=== PATIENT | male | born 1960 | race Caucasian/White ===

== ENCOUNTER → 2018-03-18 14:48 | Outpatient (CLI) | payer OTHER, SELFPAY ==
[2018-03-07 14:52] VITALS: BMI 38.1
--- NOTE | 2018-03-18 14:52 | US_ITS ---
STUDY: RENAL ULTRASOUND - COMPLETE REASON FOR EXAM: Male, 57 years old. Chronic renal disease TECHNIQUE: Ultrasound evaluation of the kidneys was performed with real-time and static painter-scale imaging. COMPARISON: None. FINDINGS: RIGHT KIDNEY: Normal location of the right kidney, which is normal in size. The right kidney measures 11.1 x 4.8 x 5.2 cm. There is a normal cortex of the right kidney. The renal cortex measures 1.7 cm. There is no right renal mass or cyst. There are no right renal calculi. There is no right hydronephrosis. DISTAL RIGHT URETER: There is non-visualization of the distal right ureter. There is no demonstrated right ureterovesical junction calculus. There is a visualized right ureteral jet. LEFT KIDNEY: Normal location of the left kidney, which is normal in size. The left kidney measures 11.2 x 5.4 x 5.2 cm. There is a normal cortex of the left kidney. The renal cortex measures 1.5 cm. There are 2 cysts in the LEFT kidney measuring 2 cm and 1 cm. There are no left renal calculi. There is no left hydronephrosis. DISTAL LEFT URETER: There is non-visualization of the distal left ureter. There is no demonstrated left ureterovesical junction calculus. There is no demonstrated left ureteral jet. AORTA: Not identified I.V.C.: The IVC is patent. BLADDER: Bladder volume is 66 cc. US/Kidney and Bladder IMPRESSION: There are 2 LEFT kidney cysts. There are NO kidney stones. There is NO hydronephrosis. Electronically Signed: Mason Herrmann MD at 6:51 EST , Service support ,
--- OUTSIDE RECORDS SUMMARY | 2018-06-20 07:42 | XMS RPT_ITS ---
:1960 Author Organization OHIP Care Team Providers Name Role Phone HANDY ORO Attending Unavailable HANDY ORO Attending Unavailable HANDY ORO Referring Unavailable HANDY ORO Referring Unavailable WELLINGTON DAVILA Attending Unavailable TIARA EDWARDS Referring Unavailable DELMY CARMEN (AUDIE) Attending Unavailable HANDY ORO Referring Unavailable TIARA EDWARDS Attending Unavailable Rosario Cardenas Attending Unavailable Rosario Cardenas Referring Unavailable Handy Oro Primary Care Unavailable Laurence Licona NP-C Attending Unavailable Handy Oro Referring Unavailable Rosario Cardenas Attending Unavailable Handy Oro Primary Care Unavailable PROBLEMS PROBLEMS DATE TYPE CONDITION / CODE ATTENDING STATUS SOURCE 01/30/2018 Active 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 Active [facility] (current) drug [place] therapy / Repository Z79.899(ICD-10) 01/30/2018 Active Type 1 diabetes NA Active [facility] mellitus with [place] proliferative Repository diabetic retinopathy with macular edema, bilateral / E10.3513(ICD-10) 01/17/2018 Active Type 1 diabetes WELLINGTON DAVILA Active [facility] mellitus with [place] proliferative Repository diabetic retinopathy without macular edema, bilateral / E10.3593(ICD-10) 02/07/2017 Active Type 1 diabetes TIARA EDWARDS Active [facility] mellitus with [place] stable Repository proliferative diabetic retinopathy, bilateral / E10.3553(ICD-10) 04/01/2015 Active Presence of TIARA EDWARDS Active [facility] intraocular lens / [place] Z96.1(ICD-10) Repository PROCEDURES PROCEDURES No Procedure Records FoundRESULTS RESULTS KIDNEY AND BLADDER Observed: 03/18/2018 Status: F Source: URSULA 2:52 PM [facility] REPOSITORY [facility] Imaging Services [address] [place] [address] Kidney and Bladder MR#: [id number] Acct: [id number] Name: АНДРЕЙ NICKERSON Rep #: [id number] : 1960 M 57 From: Mason Herrmann PCP: Handy Butler DO Status: REG CLI Study: Kidney and Bladder Date of Exam: 03/18/18 Exam# [id number] Ordering Dr: Rosario Cardenas DO STUDY: RENAL ULTRASOUND - COMPLETE REASON FOR EXAM: Male, 57 years old. Chronic renal disease TECHNIQUE: Ultrasound evaluation of the kidneys was performed with real-time and static painter-scale imaging. COMPARISON: None. FINDINGS: RIGHT KIDNEY: Normal location of the right kidney, which is normal in size. The right kidney measures 11.1 x 4.8 x 5.2 cm. There is a normal cortex of the right kidney. The renal cortex measures 1.7 cm. There is no right renal mass or cyst. There are no right renal calculi. There is no right hydronephrosis. DISTAL RIGHT URETER: There is non-visualization of the distal right ureter. There is no demonstrated right ureterovesical junction calculus. There is a visualized right ureteral jet. LEFT KIDNEY: Normal location of the left kidney, which is normal in size. The left kidney measures 11.2 x 5.4 x 5.2 cm. There is a normal cortex of the left kidney. The renal cortex measures 1.5 cm. There are 2 cysts in the LEFT kidney measuring 2 cm and 1 cm. There are no left renal calculi. There is no left hydronephrosis. DISTAL LEFT URETER: There is non-visualization of the distal left ureter. There is no demonstrated left ureterovesical junction calculus. There is no demonstrated left ureteral jet. AORTA: Not identified I.V.C.: The IVC is patent. BLADDER: Bladder volume is 66 cc. US/Kidney and Bladder IMPRESSION: There are 2 LEFT kidney cysts. There are NO kidney stones. There is NO hydronephrosis. Electronically Signed: Mason Herrmann MD at 6:51 EST , Service support , CC: Rosario Cardenas DO; Handy Butler DO Development Trainer: Signed ENDOCRINOLOGY VISIT Observed: 03/10/2018 Status: F Source: SEMMES REPORT 5:31 PM [facility] REPOSITORY [facility] [address] [place] [address]. [address] [place] [address] OFFICE VISIT Date of Service: 03/07/18 MR#: [id number] Acct: [id number] Name: АНДРЕЙ NICKERSON Rep #: [id number] : 1960 Provider: Laurence Licona NP Age/Sex: 57/M Location: [facility] [place] Status: Signed [facility] History of present illness Андрей Nickerson is a 57 year old male who presents for consult of type 1 diabetes. Diagnosed in 1970. No hx of DKA but had ER visit in 2009 due to severe hypoglycemia. Reports he utilized an insulin pump for a few years but when he was without insurance he could not afford and he resumed MDI. Reports he is currently taking levemir 36 units daily and meal insulin using his I/c ratio. Reports BG readings high and he is overly concerned now that he has been told he has stage 4 kidney disease. Is wanting to resume insulin pump therapy. At time of visit: -Pt denies symptoms of hypertensive emergency (CP,SOB,NAJERA, or blurred vision) and hypotension(dizziness or lightheadedness) -Pt denies symptoms of hypoglycemia ( sweaty, confusion, anxiety, tremor, hunger, palpitations) and hyperglycemia ( polydipsia, polyuria) -Pt denies potential medication adverse effect. Hypoglycemia Aware of hypoglycemia: When awake Able to self treat low BG: Yes Frequent low Bloo sugar: No Has supply of glucagon: Yes Diet 3 meals Carb counts Tries to eat healthy SMBG Currently checking 5 times daily BG 80-400 Reports BG highest in the evening. Type: type 1, insulin-requiring Glucose control symptoms: Reports high fasting glucose and high post-meal glucose Weight and fatigue symptoms: Denies snoring Cardiopulmonary symptoms: Denies chest pain at rest, dyspnea on exertion, lightheadedness or myalgias GI symptoms: Denies constipation, diarrhea, nausea/dyspepsia or vomiting Skin and extremity symptoms: Denies erectile dysfunction Other symptoms: Denies blurry vision or change in vision Pertinent visit history: Denies recent visit to ER, recent hospital admission, recent DKA, recent 911 calls or recent severe lows Self monitoring: Yes Percentage of fasting blood glucose within goal: <25% of the time Dietary compliance: Diabetes: good Diabetes education in past year: No Glucose testing: demonstrates correct use of meter, understands testing schedule Sick day education - understands ketone testing: Yes Physical activity: regular Exam Const General: healthy appearing, well developed Nutritional Appearance: well nourished, overweight Orientation: oriented x3 [facility] Head: normal to inspection, atraumatic Ears: hearing grossly normal bilaterally Nose: external nose normal Mouth: oral mucosae normal, moist mucous membranes Teeth and gingiva: fair dentition Eyes General: appearance normal, both eyes and all related structures Visual Goodwin: normal visual goodwin by confrontation Eyelids: eyelids normal Conjunctivae: conjunctivae normal Sclera: sclerae normal Pupils: PERRL Resp Effort AND Inspection: normal respiratory effort, able to speak in complete sentences, symmetric chest movement Auscultation: Bilateral: Clear to Auscultation Cardio Rate: regular rate Rhythm: regular rhythm Heart Sounds: S1 normal, S2 normal GI Inspection: normal to inspection Auscultation: normal bowel sounds Palpation: soft, no guarding Skin General: no rashes or lesions noted Nails: normal Diabetic Foot Monofilament test: Left foot: abnormal, Right foot: abnormal Neuro General: oriented x3, moves all extremities Cognition: normal cognition Speech: speech normal Gait: normal gait Extrem General: no pedal edema Psych Appearance: well kempt Mental Status: mental status grossly normal Mood: congruent mood Affect: normal affect Speech and Movement: speech and movement normal Attitude: cooperative Thought Process: normal Thought Content: normal Intake Vital Signs03/07/18 Height 5 ft 10 in 03/07/18 Weight: 266 lb 03/07/18 Body Mass Index (BMI) 38.1 03/07/18 Blood Pressure 160/92 H 03/07/18 Blood Pressure Location Lt popliteal 03/07/18 Blood Pressure Position Sitting Intake 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 Accompanied by: Self Allergies No Known Allergies Allergy (Verified 03/07/18 14:33) Medications Atorvastatin Calcium [Lipitor] 10 mg PO QHS 01/26/13 [History Confirmed 03/07/18] Clopidogrel Bisulfate [Plavix] 75 mg PO DAILY 01/26/13 [History Confirmed 03/07/18] Furosemide [Lasix] 10 mg PO BIDLX 01/26/13 [History Confirmed 03/07/18] amlodipine 10 mg tablet 10 mg PO DAILY 03/07/18 [History Confirmed 03/07/18] aspirin 81 mg tablet,delayed release 81 mg PO DAILY 03/07/18 [History Confirmed 03/07/18] bupropion HCl 150 mg tablet,12 hr sustained-release(smoking deterrent) 150 mg PO DAILY 03/07/18 [History Confirmed 03/07/18] enalapril maleate 20 mg tablet 20 mg PO DAILY 03/07/18 [History Confirmed 03/07/18] insulin detemir (U-100) 100 unit/mL (3 mL) subcutaneous pen 36 unit SC DAILY ml 03/07/18 [History Confirmed 03/07/18] insulin lispro (U- 100) 100 unit/mL subcutaneous pen See Rx Instructions SC TID ml 03/07/18 [History Confirmed 03/07/18] Nurse's Note: blood sugars : low : 87 high : 400+ pt checking 5-6 x qd PFSH Medical History Cataracts, bilateral (Acute) Heart disease (Acute) Kidney disease (Acute) Pancreatitis (Acute) Stroke (Acute) Type 1 diabetes (Acute) HTN (hypertension) (Chronic) Surgical History H/O cardiac catheterization (Acute) Family History Mother Diabetes Social History Smoking Status: Current every day smoker alcohol intake: never substance use type: does not use ROS Const Constitutional: No anorexia, body ache, chills, fatigue, fever(s), frequent falls, decreased energy, malaise, night sweats, weakness, weight change, sleep problems, abnormal sleep pattern, change in appetite, other, headache(s), snoring or excessive sweating Eyes Eyes: Positive for other (eye exam 02/17); no blurry vision, change in vision, double vision, discharge, dry eyes, bulging eyes, floaters, visual disturbances, eye pain, light sensitivity, spots in vision or tunnel vision ENT ENT: Positive for nasal congestion and sinus pressure; no abnormal hearing, ear pain, ear discharge, ear pressure, hearing loss, tinnitus, dizziness/vertigo, balance problems, nosebleed/epistaxis, nasal obstruction, nose pain, sinus pain, nasal discharge, post nasal drip, headache(s), facial pain, dental pain, dry mouth, bad breath, hoarseness, lip swelling, mouth lesions, mouth pain, sore throat, tongue swelling, throat swelling, other, difficulty swallowing or neck pain Resp Respiratory: Positive for cough and wheezing; no change in phlegm color, chest congestion, excessive phlegm production, hemoptysis, pain on inspiration, shortness of breath, pain with cough, snoring, stridor or other Cardio Cardiology: Positive for generalized swelling; no chest pain at rest, chest pain with exertion, leg pain with exertion, excessive sweating, shortness of breath, dyspnea on exertion, irregular heart rhythm, lightheadedness, orthopnea, radiating jaw, neck or arm pain, fast heart rate, slow heart rate, palpitations or other Gastro GI: No abdominal pain, belching, bloating, change in bowel habits, change in stool character, coffee ground emesis, constipation, cramping, diarrhea, heartburn, difficulty swallowing, feeling full early, excessive flatus, incontinent of stools, Vomiting blood/hematemesis, blood in stool, loose stools, Black,tarry stools, nausea/dyspepsia, pain with swallowing, vomiting or other Genitourinary Male: No difficulty urinating, burning urination, painful urination, urinary incontinence, urinary frequency, urinary urgency, urinary hesitancy, urinary retention, blood in urine, Frequent nighttime urination/ nocturia, post void dribbling, suprapubic fullness, side pain, sexual problems, genital lesions, genital itching, erectile dysfunction, penile discharge, difficulty with ejaculations, blood in semen, scrotal swelling, testicle lump, testicle pain or other Musc Musculoskeletal: No abnormal walking, joint pain, back pain, deformity, joint swelling, limited range of motion, loss of height, muscle cramps, muscle weakness, decreased muscle mass, body aches, neck pain, numbness, radiating pain into limb, stiffness, tingling or other Skin Skin: No acne, hair loss, change in hair, nail changes, boil, change in skin color, dry skin, redness, excessive hair growth, yellowing of the skin, lesions, itching, rash, skin pain, skin ulcer, sores, skin swelling, wounds or other Breast Breast: No other Neuro Neurology: No frequent falls, weakness, visual disturbances, abnormal hearing, headache(s), abnormal walking, numbness or tingling Psych Psychiatric: No abnormal sleep pattern, No change in appetite Endo Endocrine: No fatigue, other or excessive sweating Aller/Imm Allergy/Immunologic: Positive for wheezing; no lip swelling, tongue swelling, throat swelling or itchy eyes Assessment AND Plan 1. Uncontrolled type 1 diabetes mellitus with hyperglycemia E10.65 Plan Patient chart reflect spatient is type 2 although patient states he is type 1. No records available at time of appointment. Was a patient of Dr. Greenberg in past but unable to discern how long ago. Patient is concerned that he has CKD and it has worsened so he is now wondering if he should resume insulin pump therapy. He is not sure if his current insurance will cover. BG readings taken on newer meter so not alot of will. Will place patient on CGM for the next 14 days to determine his pattern for insulin adjustment. Discussed carb counting, sliding scale insulin, and monitoring of BG in pairs; before meals and 2 hours after meals. RTC 5 days for download of sensor. Patient Instructions Control portions Food selections should be healthy Choose more low carb vegetables Avoid snacks and desserts. Drink water Exercise daily Eat more fresh foods, not canned or processed Eat more slowly Plan Detail Other Medications New: insulin lispro (U- (Humalog KwikPen (U-) 1/10 ratio at breakfast and supper, 1/12 rati o at lunch SC TID; insulin detemir (U-100) (Levemir FlexTouch U-36 units subcut DAILY 100 Insulin) Additional Comments 1. Please schedule follow up in 3 weeks. 2. Lab work one week before appointment. 3. Discussed importance of regular exercise and recommend starting or continuing a regular exercise program for good health. 4. The patient was encouraged to lose weight for good health 5. The importance of monitoring blood sugar regularly was reviewed. 6. The importance of monitoring the HBA1c level regularly was reviewed. 7. The importance of prper foot care and regularly checking feet to prevent sores and loss of limbs was reviewed. 8. The importance of keeping BP at or below 130/80 to prevent stroke, heart attacks, kidney failure, blindness was reviewed. Spent approximately 30 minutes with patient with over 50% of time spent in discussion and counseling regarding medication adjustment, symptoms and treatment of hypoglycemia, diet adherence, and checking BG before driving. Coding Level of Care Code Off vis,new,level 4 Diagnoses Uncontrolled type 1 diabetes mellitus with hyperglycemia E10.65 Glycemic state: with hyperglycemia Depression Screen PHQ-2/9 PHQ-2 Over the last 2 weeks, how often have you been bothered by any of the following problems? 1. Little interest or pleasure in doing things: not at all 2. Feeling down, depressed, or hopeless: not at all Total score: 0 If score is 2 or greater, continue Source: Developed by Drs. Shamir Tovar, Maryjane Patterson, Narciso Steward and colleagues, with an educational caleb from [employer]. Scoring: Total Score Depression Severity Action 1-4 Minimal depression No action needed 5-9 Mild depression Repeat PHQ-9 at follow up 10-14 Moderate depression Make tx plan,consider counseling, fup, prescription 03/10/18 [id number] <Electronically signed by Laurence VALERO> Date Laurence VALERO Cosigner Signature: Date (if applicable) CC: PROGRESS Observed: 01/30/2018 Status: COMPLETED Source: KAKE 8:07 PM [facility] REPOSITORY HNO ID: [id number] Author: Handy Oro Service: (none) Author Type: Physician Type: Progress Notes Filed: 01/30/2018 8:19 PM Note Text: Patient presents with: Follow Up: DM Imm/Inj: Flu Vaccine HPI: Андрей Nickerson is a 57 year old male who presents to the office today for review of health conditions. Concerns today: Hasn't recently seen GODWIN Licona for Endocrinology, admits to poor diet, not routine low carb intake, admits to being non compliant and not measuring carbohydrates. Denies any chest pains or dyspnea or dizziness/LH. Has some fatigue symptoms. Tobacco use disorder, not willing to quit Mr. Nickerson has past history of diabetes. Since our last visit he denies excessive thirst or increased frequency of urination, chest pain or dyspnea , new or unusual visual symptoms and low sugar/hypoglycemic reactions. Follows a diabetic diet generally not very much. He is not compliant with medication(s) but is tolerating med(s) without any side effects. He reports checking his glucose on a once a day schedule. Patient's last HgA1C was Hemoglobin A1C (%) Date Value 01/30/2018 10.0 04/03/2017 9.5 ) Last Ophthalmology exam was within the past 12 months Mr. Nickerson reports history of hyperlipidemia. Current therapy includes atorvastatin (Lipitor) 20 mg. Denies side effects of muscle weakness or achiness. His most recent lipid panels are reviewed. Cholesterol, Total (mg/dL) Date Value 01/30/2018 92 HDL Cholesterol (mg/dL) Date Value 01/30/2018 42 LDL Cholesterol (mg/dL) Date Value 01/30/2018 31 Triglyceride (mg/dL) Date Value 01/30/2018 96 Mr. Nickerson indicates a history of hypertension and states that he is feeling well and denies any symptoms referable to elevated blood pressure. Specifically denies headache, chest pain, palpitations, dyspnea and peripheral edema. Patient denies any side effects of his medication(s) and is compliant with their regimen. Last 3 Encounter BP Readings: Date: BP: 01/30/2018 136/82 01/07/2018 122/68 05/09/2017 130/82 He watches his diet for sodium, low fat and low cholesterol some of the time. He does not check BP's generally. Андрей gets minimal exercise. PAST MEDICAL HISTORY Diagnosis Date - CKD (chronic kidney disease) stage 3, GFR 30-59 ml/min ([facility]) [facility] - Coronary artery disease 2006 3 stents, last cath 2007, [facility] - Diabetes type 1, uncontrolled ([facility]) 1970 nephropathy, retinopathy, dx age 10, Dr. Leon [facility] - Hyperlipidemia - Hypertension - Lacunar stroke - Macular edema [facility] - MVP (mitral valve prolapse) - Pancreatitis - Proliferative diabetic retinopathy(362.02) [facility] - Tobacco abuse PAST SURGICAL HISTORY Procedure Laterality Date - AVASTIN (BEVACIZUMAB) 1.25MG INTRAVITREAL INJECTION OS (LEFT EYE) x5 (04/16/2015) Dr. Edwards - CARDIAC CATH 2005, 2008, 2011 mid / distal LAD stents DENISHA - PAST SURGICAL HISTORY OF Bilateral Keratectomy - REMV CATARACT EXTRACAP,INSERT LENS Left 03/10/15 Cataract Extraction with PC IOL - REMV CATARACT EXTRACAP,INSERT LENS Right 04/01/15 Cataract Extraction with PC IOL Social History Marital status: Spouse name: Years of education: Number of children: Social History Main Topics Smoking status: Current Some Day Smoker Packs/day: 1.00 Years: 30.00 Types: Cigarettes Smokeless tobacco: Never Used Alcohol use: Yes Comment: rarely Drug use: Yes Types: Marijuana Comment: occasional Social History Narrative , step children Last cardiac stress test 10/2011- normal, EF 64%, Dr. 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 MAXIMUM DOSE 40 UNITS DAILY. clopidogrel (PLAVIX) 75 mg tablet TAKE 1 TABLET BY MOUTH ONCE DAILY. atorvastatin (LIPITOR) 40 mg tablet TAKE 0.5 TABLETS BY MOUTH ONCE DAILY. amLODIPine (NORVASC) 10 mg tablet TAKE 1 TABLET BY MOUTH EVERY DAY insulin lispro (HUMALOG U-100 INSULIN) 100 unit/mL injection 1-10 I/C breakfast AND supper, 1-15 I/C at lunch. Maximum dose 40 units daily. metoprolol tartrate, short acting, (LOPRESSOR) 100 mg tablet Take 1 tablet by mouth twice daily. enalapril (VASOTEC) 20 mg tablet Take 1 tablet by mouth once daily. furosemide (LASIX) 20 mg tablet Take 1 tablet by mouth twice daily. buPROPion XL (WELLBUTRIN XL) 150 mg 24 hr tablet Take 1 tablet by mouth once daily. insulin detemir (LEVEMIR FLEXTOUCH) 100 unit/mL (3 mL) inpn injection INJECT 31 UNITS SUBCUTANEOUSLY DAILY AT BEDTIME. aspirin, enteric coated (ECOTRIN LOW STRENGTH) 81 mg EC tablet Take 1 tablet by mouth once daily. insulin aspart U-100 (NOVOLOG) 100 unit/mL soln 1-10 I/C breakfast AND supper 1-15 I/C at lunch 1-10 I/C breakfast AND supper 1-15 I/C at lunch Maximum dose 40 units daily. albuterol HFA (PROVENTIL HFA, VENTOLIN HFA) 90 mcg/actuation inhaler Inhale 2 Puffs as instructed every 6 hours as needed for Wheezing/Shortness of Breath. Insulin [place], Disposable, (BD ULTRAFINE III MINI PEN) 31 gauge x 3/16 ndle use as directed up to four times daily, E11.9 Lancets (MICROLET LANCET) lancets Test blood sugar(s) 3-4 times daily. Dx: 250.00 . Insulin: Yes blood sugar diagnostic (ONETOUCH ULTRA TEST) test strip Checking blood sugars 3-4 times daily insulin aspart (NOVOLOG FLEXPEN) 100 unit/mL inpn Inject subcutaneously up to 40 units daily cholecalciferol (VITAMIN D3) 5,000 unit tab Take 1 tablet by mouth once daily. Blood-Glucose Meter (ONETOUCH ULTRA2) monitoring kit 1 Each as needed. One Touch Meter Kit, Dx: E10.3219 Type1 dm with mild nonproliferative diabetic retinopathy/macular edema Oamygfqbvqpvv-Tmckgzkppgxmd-XL (TYLENOL SINUS SEVERE) 5-325-200 mg tab Take 1 Dose by mouth every 4 hours as needed. lidocaine viscous (LIDOCAINE VISCOUS) 2 % solution Gargle and spit 10-15mLs every 3-4 hours as need for throat discomfort. Blood-Glucose Meter (FritterTOUCH ULTRA 2) monitoring kit 1 Each as needed. Review of Systems: The remainder of the review of systems is negative. PE: 01/30/18 1812 BP: 136/82 Pulse: 68 Resp: 14 Temp: 36.1 ?C (96.9 ?F) TempSrc: Left Tympanic Weight: 119.7 kg (264 lb) Gen: AANDO, NAD, non-toxic appearing, morbidly obese, cooperative HEENT: NT/AC, PERRLA, EOMs intact b/l, nares clear and patent b/l, pharynx without erythema, exudate or lesions. Uvula midline. EACs without erythema or debris. TMs pearly painter with intact landmarks b/l. Neck: supple, No cervical LAD, no thyromegaly, no carotid bruits CV: RRR, normal S1 and S2, no murmurs, no gallops, no rubs, Pulses 2+ and symmetric in UE and LE b/l Lungs: normal respiratory effort, CTA b/l, no wheezing or rhonchi or rales Abd: soft, morbidly obese, NT, ND, +BS, no hepatosplenomegaly MS: FROM all 4 extremities Neuro: CN II-XII intact b/l, strength 5/5 b/l UE and LE, DTRs 2/4 UE and LE, sensation intact. Skin: warm, dry, intact, scattered skin tags and seborrheic keratoses No edema ASSESSMENT/PLAN: 1. Routine physical examination - ICD9: V70.0, ICD10: Z00.00 (primary diagnosis) - Recommended regular aerobic exercise. - Discussed need and benefit for weight loss. BMI 37.88 kg/(m2) - Check CBC with diff, CMP, HbA1C, fasting glucose and fasting lipid panel - Vaccination(s) recommended today: Influenza - Follow up for annual exam in one year. 2. Need for vaccination - ICD9: V05.9, ICD10: Z23 - INFLUENZA VACCINE QUADRIVALENT AGE 3 YRS PLUS + IM 3. 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 D/w him risks of TN, stroke, heart failure and artery disease related to his non compliance - HGB A1C - COMP METABOLIC PANEL - CBC 4. Hypercholesteremia - ICD9: 272.0, ICD10: E78.00 - to be determined upon return of lab results - Continue current medication. - Encouraged following a low fat, low cholesterol diet. - Discussed the benefits of regular aerobic exercise and weight loss. - Check fasting lipid panel 5. Essential hypertension - ICD9: 401.9, ICD10: I10 - suboptimal control - Continue current medication(s) - Encouraged dietary sodium restriction/DASH diet - Recommended regular aerobic exercise. - Recommend home blood pressure monitoring, to bring results in on next visit - Discussed need and benefit for weight loss. - Goal of BP <130/80 - Patient counselled on smoking cessation. - Recommend home or pharmacy blood pressure monitoring 6. Tobacco use - ICD9: 305.1, ICD10: Z72.0 - Cessation encouraged. - Physiologic and physical aspects of tobacco addiction as well as strategies for quitting were discussed. - Counseling was given focusing on the harmful effects of this addiction especially given the patient's medical condition(s) which will be worsened because of the chemicals in tobacco. Handy Oro DO To ER if develops chest pain, shortness of breath, or severe worsening of symptoms. Discussed risks, benefits, alternatives, and potential side effects of medications. Patient expressed understanding and agreed with the plan. Handy Oro DO [address] [place] [address] CNOV Observed: 01/30/2018 Status: COMPLETED Source: KAKE 6:20 PM [facility] REPOSITORY Office Visit ([facility] АНДРЕЙ [id number]) 1960 M Date Time Provider Department 01/30/18 6:20 PM HANDY ORO During your visit today, we recorded the following information about you: Temperature Pulse Respiration Blood pressure 96.9 degrees 68/minute 14/minute 136/82 Weight 119.7 kg Yoli Lieberman Ma 01/30/2018 8:19 PM Signed 57 year old male here for INACTIVATED INFLUENZA VACCINE. Season Patient is identified by name and date of : Yes [] CONTRAINDICATIONS color enhanced section Age less than 6 months? No Allergy to eggs, chicken, chicken feathers, or chicken dander? No Allergy to thimerosal (a preservative) or formaldehyde, gelatin? No History of severe reaction to any vaccine component or a previous dose of influenza vaccination? No History of Guillain-[place] Syndrome within 6 weeks after a previous influenza vaccine? No Patient is not moderately or severely ill? No Current temperature greater or equal to 100.4F? No History of Bone Marrow Transplant prior 6 months or solid organ transplant in the past 3 months ? No History of fainting after a prior injection or medical procedure? No- ? If patient has fainted in the past, the CDC recommends sitting or lying down for 15 minutes after the vaccination. [] VERIFICATION color enhanced section Was the answer Yes for any of the above contraindications? No contraindications present. Acceptable to proceed with vaccine. Patient/guardian agrees the above answers are true to the best of their knowledge? Yes Flu vaccine information sheet given? Yes See immunization activity in [facility] for details of immunizations adminstered today. Patient age: [age] year old For The 5501-6202 Flu Season 6-35 months old: Fluzone 0.25 ml - IM (Preservative Free) 3 years of age: Fluzone 0.5 ml - IM (Preservative Free) 3 years and older: Fluzone 0.5 ml- IM-(with Preservatives) 65+ years old: 2-49 years old Fluzone High-Dose 0.5 ml - IM (Preservative Free) FLUMIST- intranasal REMEMBER: If patient is less than 9 years of age and this is the first vaccine of Influenza to be received in any flu season, they should receive a second dose in one months time. Handy Oro DO 01/30/2018 8:19 PM Signed Patient presents with: Follow Up: DM Imm/Inj: Flu Vaccine HPI: Андрей Nickerson is a 57 year old male who presents to the office today for review of health conditions. Concerns today: Hasn't recently seen GODWIN Licona for Endocrinology, admits to poor diet, not routine low carb intake, admits to being non compliant and not measuring carbohydrates. Denies any chest pains or dyspnea or dizziness/LH. Has some fatigue symptoms. Tobacco use disorder, not willing to quit Mr. Nickerson has past history of diabetes. Since our last visit he denies excessive thirst or increased frequency of urination, chest pain or dyspnea , new or unusual visual symptoms and low sugar/hypoglycemic reactions. Follows a diabetic diet generally not very much. He is not compliant with medication(s) but is tolerating med(s) without any side effects. He reports checking his glucose on a once a day schedule. Patient's last HgA1C was Hemoglobin A1C (%) Date Value 01/30/2018 10.0 04/03/2017 9.5 ) Last Ophthalmology exam was within the past 12 months Mr. Nickerson reports history of hyperlipidemia. Current therapy includes atorvastatin (Lipitor) 20 mg. Denies side effects of muscle weakness or achiness. His most recent lipid panels are reviewed. Cholesterol, Total (mg/dL) Date Value 01/30/2018 92 HDL Cholesterol (mg/dL) Date Value 01/30/2018 42 LDL Cholesterol (mg/dL) Date Value 01/30/2018 31 Triglyceride (mg/dL) Date Value 01/30/2018 96 Mr. Nickerson indicates a history of hypertension and states that he is feeling well and denies any symptoms referable to elevated blood pressure. Specifically denies headache, chest pain, palpitations, dyspnea and peripheral edema. Patient denies any side effects of his medication(s) and is compliant with their regimen. Last 3 Encounter BP Readings: Date: BP: 01/30/2018 136/82 01/07/2018 122/68 05/09/2017 130/82 He watches his diet for sodium, low fat and low cholesterol some of the time. He does not check BP's generally. Андрей gets minimal exercise. PAST MEDICAL HISTORY Diagnosis Date - CKD (chronic kidney disease) stage 3, GFR 30-59 ml/min ([facility]) [facility] - Coronary artery disease 2005 3 stents, last cath 2007, [facility] - Diabetes type 1, uncontrolled ([facility]) 1970 nephropathy, retinopathy, dx age 10, Dr. Leon [facility] - Hyperlipidemia - Hypertension - Lacunar stroke - Macular edema [facility] - MVP (mitral valve prolapse) - Pancreatitis - Proliferative diabetic retinopathy(362.02) [facility] - Tobacco abuse PAST SURGICAL HISTORY Procedure Laterality Date - AVASTIN (BEVACIZUMAB) 1.25MG INTRAVITREAL INJECTION OS (LEFT EYE) x5 (04/16/2015) Dr. Edwards - CARDIAC CATH 2005, 2008, 2011 mid / distal LAD stents DENISHA - PAST SURGICAL HISTORY OF Bilateral Keratectomy - REMV CATARACT EXTRACAP,INSERT LENS Left 03/10/15 Cataract Extraction with PC IOL - REMV CATARACT EXTRACAP,INSERT LENS Right 04/01/15 Cataract Extraction with PC IOL Social History Marital status: Spouse name: Years of education: Number of children: Social History Main Topics Smoking status: Current Some Day Smoker Packs/day: 1.00 Years: 30.00 Types: Cigarettes Smokeless tobacco: Never Used Alcohol use: Yes Comment: rarely Drug use: Yes Types: Marijuana Comment: occasional Social History Narrative , step children Last cardiac stress test 10/2011- normal, EF 64%, Dr. 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 MAXIMUM DOSE 40 UNITS DAILY. clopidogrel (PLAVIX) 75 mg tablet TAKE 1 TABLET BY MOUTH ONCE DAILY. atorvastatin (LIPITOR) 40 mg tablet TAKE 0.5 TABLETS BY MOUTH ONCE DAILY. amLODIPine (NORVASC) 10 mg tablet TAKE 1 TABLET BY MOUTH EVERY DAY insulin lispro (HUMALOG U-100 INSULIN) 100 unit/mL injection 1-10 I/C breakfast AND supper, 1-15 I/C at lunch. Maximum dose 40 units daily. metoprolol tartrate, short acting, (LOPRESSOR) 100 mg tablet Take 1 tablet by mouth twice daily. enalapril (VASOTEC) 20 mg tablet Take 1 tablet by mouth once daily. furosemide (LASIX) 20 mg tablet Take 1 tablet by mouth twice daily. buPROPion XL (WELLBUTRIN XL) 150 mg 24 hr tablet Take 1 tablet by mouth once daily. insulin detemir (LEVEMIR FLEXTOUCH) 100 unit/mL (3 mL) inpn injection INJECT 31 UNITS SUBCUTANEOUSLY DAILY AT BEDTIME. aspirin, enteric coated (ECOTRIN LOW STRENGTH) 81 mg EC tablet Take 1 tablet by mouth once daily. insulin aspart U-100 (NOVOLOG) 100 unit/mL soln 1-10 I/C breakfast AND supper 1-15 I/C at lunch 1-10 I/C breakfast AND supper 1-15 I/C at lunch Maximum dose 40 units daily. albuterol HFA (PROVENTIL HFA, VENTOLIN HFA) 90 mcg/actuation inhaler Inhale 2 Puffs as instructed every 6 hours as needed for Wheezing/Shortness of Breath. Insulin [place], Disposable, (BD ULTRAFINE III MINI PEN) 31 gauge x 3/16 ndle use as directed up to four times daily, E11.9 Lancets (MICROLET LANCET) lancets Test blood sugar(s) 3-4 times daily. Dx: 250.00 . Insulin: Yes blood sugar diagnostic (ONETOUCH ULTRA TEST) test strip Checking blood sugars 3-4 times daily insulin aspart (NOVOLOG FLEXPEN) 100 unit/mL inpn Inject subcutaneously up to 40 units daily cholecalciferol (VITAMIN D3) 5,000 unit tab Take 1 tablet by mouth once daily. Blood-Glucose Meter (ONETOUCH ULTRA2) monitoring kit 1 Each as needed. One Touch Meter Kit, Dx: E10.3219 Type1 dm with mild nonproliferative diabetic retinopathy/macular edema Rygilwzdkegcc-Ropdxasqxzfny-UH (TYLENOL SINUS SEVERE) 5-325-200 mg tab Take 1 Dose by mouth every 4 hours as needed. lidocaine viscous (LIDOCAINE VISCOUS) 2 % solution Gargle and spit 10-15mLs every 3-4 hours as need for throat discomfort. Blood-Glucose Meter (ONETOUCH ULTRA 2) monitoring kit 1 Each as needed. Review of Systems: The remainder of the review of systems is negative. PE: 01/30/18 1812 BP: 136/82 Pulse: 68 Resp: 14 Temp: 36.1 ?C (96.9 ?F) TempSrc: Left Tympanic Weight: 119.7 kg (264 lb) Gen: AANDO, NAD, non-toxic appearing, morbidly obese, cooperative HEENT: NT/AC, PERRLA, EOMs intact b/l, nares clear and patent b/l, pharynx without erythema, exudate or lesions. Uvula midline. EACs without erythema or debris. TMs pearly painter with intact landmarks b/l. Neck: supple, No cervical LAD, no thyromegaly, no carotid bruits CV: RRR, normal S1 and S2, no murmurs, no gallops, no rubs, Pulses 2+ and symmetric in UE and LE b/l Lungs: normal respiratory effort, CTA b/l, no wheezing or rhonchi or rales Abd: soft, morbidly obese, NT, ND, +BS, no hepatosplenomegaly MS: FROM all 4 extremities Neuro: CN II-XII intact b/l, strength 5/5 b/l UE and LE, DTRs 2/4 UE and LE, sensation intact. Skin: warm, dry, intact, scattered skin tags and seborrheic keratoses No edema ASSESSMENT/PLAN: 1. Routine physical examination - ICD9: V70.0, ICD10: Z00.00 (primary diagnosis) - Recommended regular aerobic exercise. - Discussed need and benefit for weight loss. BMI 37.88 kg/(m2) - Check CBC with diff, CMP, HbA1C, fasting glucose and fasting lipid panel - Vaccination(s) recommended today: Influenza - Follow up for annual exam in one year. 2. Need for vaccination - ICD9: V05.9, ICD10: Z23 - INFLUENZA VACCINE QUADRIVALENT AGE 3 YRS PLUS + IM 3. 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 D/w him risks of [place], stroke, heart failure and artery disease related to his non compliance - HGB A1C - COMP METABOLIC PANEL - CBC 4. Hypercholesteremia - ICD9: 272.0, ICD10: E78.00 - to be determined upon return of lab results - Continue current medication. - Encouraged following a low fat, low cholesterol diet. - Discussed the benefits of regular aerobic exercise and weight loss. - Check fasting lipid panel 5. Essential hypertension - ICD9: 401.9, ICD10: I10 - suboptimal control - Continue current medication(s) - Encouraged dietary sodium restriction/DASH diet - Recommended regular aerobic exercise. - Recommend home blood pressure monitoring, to bring results in on next visit - Discussed need and benefit for weight loss. - Goal of BP <130/80 - Patient counselled on smoking cessation. - Recommend home or pharmacy blood pressure monitoring 6. Tobacco use - ICD9: 305.1, ICD10: Z72.0 - Cessation encouraged. - Physiologic and physical aspects of tobacco addiction as well as strategies for quitting were discussed. - Counseling was given focusing on the harmful effects of this addiction especially given the patient's medical condition(s) which will be worsened because of the chemicals in tobacco. Handy Oro DO To ER if develops chest pain, shortness of breath, or severe worsening of symptoms. Discussed risks, benefits, alternatives, and potential side effects of medications. Patient expressed understanding and agreed with the plan. 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) [E10.3593] Hypercholesteremia [E78.00] Essential hypertension [I10] Tobacco use [Z72.0] Order(s):INFLUENZA VACCINE QUADRIVALENT AGE 3 YRS PLUS + IM [[id number]] Order #: [id number] HGB A1C [VMGWN3H] Order #: [id number] FUTURE COMP METABOLIC PANEL [SQCMP] Order #: [id number] FUTURE CBC [SQCBC] Order #: [id number] FUTURE Prescriptions as of 01/30/2018 Sig: HUMALOG KWIKPEN (U-100) INSUL* INJECT 1-10 I/C BREAKFAST AND S* CLOPIDOGREL 75 MG TABLET TAKE 1 TABLET BY MOUTH ONCE D* ATORVASTATIN 40 MG TABLET TAKE 0.5 TABLETS BY MOUTH ONC* AMLODIPINE 10 MG TABLET TAKE 1 TABLET BY MOUTH EVERY * INSULIN LISPRO (U-100) 100 UN* 1-10 I/C breakfast AND supper, * METOPROLOL TARTRATE 100 MG TA* Take 1 tablet by mouth twice * ENALAPRIL MALEATE 20 MG TABLET Take 1 tablet by mouth once d* FUROSEMIDE 20 MG TABLET Take 1 tablet by mouth twice * BUPROPION XL 150 MG TAB Take 1 tablet by mouth once d* INSULIN DETEMIR (U-100) 100 U* INJECT 31 UNITS SUBCUTANEOUSL* ASPIRIN 81 MG TABLET,DELAYED * Take 1 tablet by mouth once d* INSULIN ASPART U-100 100 UNI* 1-10 I/C breakfast AND supper 1* Patient not taking: Reported on 01/30/2018 ALBUTEROL SULFATE HFA 90 MCG/* Inhale 2 Puffs as instructed * PEN NEEDLE, DIABETIC 31 GAUGE* use as directed up to four ti* LANCETS Test blood sugar(s) 3- 4 time* BLOOD SUGAR DIAGNOSTIC STRIPS Checking blood sugars 3-4 benedicto* INSULIN ASPART U-100 100 UNI* Inject subcutaneously up to 4* Patient not taking: Reported on 01/30/2018 CHOLECALCIFEROL (VITAMIN D3) * Take 1 tablet by mouth once d* BLOOD-GLUCOSE METER KIT 1 Each as needed. One Touch M* DNABCQPBILNLY-DOGZSADFGNRTU-B* Take 1 Dose by mouth every 4 * LIDOCAINE 2 % MUCOSAL SOLUTION Gargle and spit 10-15mLs ever* BLOOD-GLUCOSE METER KIT 1 Each as needed. Problem List As Of Date 01/30/2018 Noted Resolved Obesity (BMI 30.0-34.9) [E66.9] INVALID FOR* Tobacco abuse [Z72.0] INVALID FOR* Hypercholesteremia [E78.00] INVALID FOR* Coronary artery disease [I25.10] INVALID FOR* Hypertension [I10] INVALID FOR* Diabetes mellitus type 2 in obese (HCC) [E11.69*INVALID FOR*08/10/2015 Background diabetic retinopathy(362.01) (HCC) *INVALID FOR* Retinal edema [H35.81] INVALID FOR* Other and combined forms of senile cataract [H2*INVALID FOR*02/23/2015 Proliferative diabetic retinopathy(362.02) (HC*INVALID FOR*02/07/2017 Type 1 diabetes mellitus with mild nonprolifera*INVALID FOR* Borderline glaucoma with ocular hypertension - *INVALID FOR* Type 1 diabetes mellitus with stable proliferat*INVALID FOR* History of panretinal photocoagulation - Both E*INVALID FOR* Type II or unspecified type diabetes mellitus w*INVALID FOR*03/31/2015 Growth of eyelid [D49.2] INVALID FOR* 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] INVALID FOR* Optic cupping of both eyes [H47.233] INVALID FOR* Astigmatism of both eyes [H52.203] INVALID FOR* Combined 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 [*INVALID FOR*04/26/2015 Pseudophakia, left eye [Z96.1] INVALID FOR*03/31/2015 Pseudophakia of left eye [Z96.1] INVALID FOR*04/26/2015 Pseudophakia of both eyes [Z96.1] INVALID FOR* Type 1 diabetes mellitus with proliferative ret*INVALID FOR* PCO (posterior capsular opacification) [H26.499]INVALID FOR* Vitreous floaters of both eyes [H43.393] INVALID FOR* Need for vaccination [Z23] INVALID FOR* Tobacco use [Z72.0] INVALID FOR* Essential hypertension [I10] INVALID FOR* Type 1 diabetes mellitus with proliferative ret*INVALID FOR* Obesity, Class II, BMI 35-39.9 [E66.9] INVALID FOR* Colon cancer screening [Z12.11] INVALID FOR* More... Routine physical examination [Z00.00] INVALID FOR* Encounter Status:Closed by HANDY ORO DO on 01/30/18 PROGRESS Observed: 01/30/2018 Status: COMPLETED Source: CHAUDHRY 6:14 PM [facility] REPOSITORY HNO ID: [id number] Author: Yoli Lieberman Ma Service: (none) Author Type: (none) Type: Progress Notes Filed: 01/30/2018 8:19 PM Note Text: 57 year old male here for INACTIVATED INFLUENZA VACCINE. 7414-9541 Season Patient is identified by name and date of : Yes [] CONTRAINDICATIONS color enhanced section Age less than 6 months? No Allergy to eggs, chicken, chicken feathers, or chicken dander? No Allergy to thimerosal (a preservative) or formaldehyde, gelatin? No History of severe reaction to any vaccine component or a previous dose of influenza vaccination? No History of Guillain-[place] Syndrome within 6 weeks after a previous influenza vaccine? No Patient is not moderately or severely ill? No Current temperature greater or equal to 100.4F? No History of Bone Marrow Transplant prior 6 months or solid organ transplant in the past 3 months ? No History of fainting after a prior injection or medical procedure? No- ? If patient has fainted in the past, the CDC recommends sitting or lying down for 15 minutes after the vaccination. [] VERIFICATION color enhanced section Was the answer Yes for any of the above contraindications? No contraindications present. Acceptable to proceed with vaccine. Patient/guardian agrees the above answers are true to the best of their knowledge? Yes Flu vaccine information sheet given? Yes [facility] for details of immunizations adminstered today. Patient age: [age] year old For The 6562-7450 Flu Season 6-35 months old: Fluzone 0.25 ml - IM (Preservative Free) 3 years of age: Fluzone 0.5 ml - IM (Preservative Free) 3 years and older: Fluzone 0.5 ml- IM-(with Preservatives) 65+ years old: 2-49 years old Fluzone High-Dose 0.5 ml - IM (Preservative Free) FLUMIST- intranasal REMEMBER: If patient is less than 9 years of age and this is the first vaccine of Influenza to be received in any flu season, they should receive a second dose in one months time. COMP METABOLIC PANEL Collected: 01/30/2018 Status: F Source: KAKE 7:40 AM [facility] REPOSITORY TYPE CODE TESTS RESULT OUT OF REFERENCE UNITS RANGE LAB TP 6.3-8.0 g/dL Protein, Low Total 5.9 LAB ALB 3.9-4.9 g/dL Albumin Low 3.6 LAB CA 8.5-10.2 mg/dL Calcium, Total 9.5 LAB TBIL 0.2-1.3 mg/dL Bilirubin, Total 0.5 LAB ALKP 38-113 U/L Alkaline High Phosphatase 115 LAB AST 14-40 U/L AST Low 13 LAB GLU 74-99 mg/dL Glucose High 317 LAB BUN 7-21 mg/dL BUN High 48 LAB CRET 0.73-1.22 mg/dL Creatinine High 3.15 LAB NA 136-144 mmol/L Sodium 136 LAB K 3.7-5.1 mmol/L Potassium High 5.4 LAB CL 97-105 mmol/L Chloride 105 LAB CO2 22-30 mmol/L CO2 Low 21 LAB AGAP 9-18 mmol/L Anion Gap 10 LAB ALT 10-54 U/L ALT 20 LAB GFRAA eGFR- 25 Amer. LAB GFRNAA . eGFR-All Other Races 21 Result Comment: eGFR (Estimated GFR) Units of measure: mL/min/1.73 meters squared eGFR is derived from the reexpressed MDRD Study equation using the following parameters: serum creatinine, age, gender and race. The creatinine assay has been calibrated to be traceable to IDMS. An eGFR <60 mL/min/1.73m2 for >3 months is consistent with chronic kidney disease. Refer to KDOQI guidelines for clinical interpretation. In patients with unstable renal function, e.g. those with acute kidney injury, the eGFR may not accurately reflect actual GFR. ALBUMIN/CREAT RATIO Collected: 01/30/2018 Status: F Source: KAKE 7:40 [facility] REPOSITORY TYPE CODE TESTS RESULT OUT OF REFERENCE UNITS RANGE LAB UCRR 20-300 mg/dL Creatinine,Ur 46.4 ine,Ran LAB UALBR 0.0-23.0 mg/L High Albumin Urine 819.0 Random LAB UALBCR 0-30 mg/g High Albumin/Creat 1765 Ratio Result Comment: 30 to 300 mg/g indicates an increased risk for diabetic nephropathy. Greater than 300 mg/g is consistent with clinical nephropathy. (Am J Kidney Disease 1995, 25:107) Performed By: #### UACR #### [facility] [address] [place], [place] [address] CBC Collected: 01/30/2018 Status: F Source: KAKE 7:39 [facility] REPOSITORY TYPE CODE TESTS RESULT OUT OF REFERENCE UNITS RANGE LAB WBC 3.70-11.00 k/uL WBC 8.90 LAB RBC 4.20-6.00 m/uL RBC 4.91 LAB HGB 13.0-17.0 g/dL Hemoglobin 14.8 LAB HCT 39.0-51.0 % Hematocrit 45.6 LAB MCV 80.0-100.0 fL MCV 92.9 LAB MCH 26.0-34.0 pG MCH 30.1 LAB MCHC 30.5-36.0 g/dL MCHC 32.5 LAB RDWCV 11.5-15.0 % RDW-CV 13.2 LAB PLTCT 150-400 k/uL Platelet Count 212 LAB MPV 9.0-12.7 fL MPV 10.7 LAB ABSNUC <0.01 k/uL Absolute nRBC <0.01 Performed By: #### CBC #### [facility] [address] [place], [place] [address] LIPID PANEL, BASIC Collected: 01/30/2018 Status: F Source: KAKE 7:39 [facility] REPOSITORY TYPE CODE TESTS RESULT OUT OF REFERENCE UNITS RANGE LAB CHOL <200 mg/dL Cholesterol 92 Result Comment: <200 mg/dL, Desirable 200-239 mg/dL, Borderline high >239 mg/dL, High LAB TRIGLY <150 mg/dL Triglyceride 96 Result Comment: <150 mg/dL, Normal 150-199 mg/dL, Borderline high 200-499 mg/dL, High >499 mg/dL, Very high LAB HDL >39 mg/dL HDL-Cholesterol 42 Result Comment: 40-59 mg/dL, Acceptable >59 mg/dL, High: Negative risk factor for coronary heart disease <40 mg/dL, Low: Positive risk factor for coronary heart disease LAB LDL <100 mg/dL LDL-Cholesterol 31 Result Comment: <100 mg/dL, Optimal 100-129 mg/dL, Near optimal/above optimal 130-159 mg/dL, Borderline high 160-189 mg/dL, High >189 mg/dL, Very high Secondary prevention optimal LDL Cholesterol levels are recommended to be < 70 mg/dL LAB NONHDL <130 mg/dL Non HDL Cholesterol 50 Result Comment: <130 mg/dL, Optimal 130-159 mg/dL, Near optimal/above optimal 160-189 mg/dL, Borderline high 190-219 mg/dL, High >219 mg/dL, Very high Secondary prevention optimal non HDL Cholesterol levels are recommended to be < 100 mg/dL LAB FT hrs Fasting Time 12 LAB VLDL <30 mg/dL VLDL Cholesterol 19 LAB TCHDL <5.10 TC:HDL Ratio 2.19 LAB LDLHDL <2.54 LDL:HDL Ratio 0.74 Result Comment: Reference: 1. National Cholesterol Education Program ATP III Guideline At-A-Glance Quick Desk Reference: National Heart, Lung, and Blood [place]. National Institutes of Health. 2001: NIH Publication No. 01-3305. 2. An International Atherosclerosis Society position paper: global recommendations for the management of dyslipidemia: executive summary, Atherosclerosis. 2014: 232(2):410-413. Performed By: #### LIPB #### [facility] [address] [address] HEMOGLOBIN A1C Collected: 01/30/2018 Status: F Source: KAKE 7:39 AM [facility] REPOSITORY TYPE CODE TESTS RESULT OUT OF REFERENCE UNITS RANGE LAB HGBA1C 4.3-5.6 % High Hemoglobin A1c 10.0 LAB HBA0 mg/dL Est. Average Glucose 240 Result Comment: eAG: (Estimated average glucose) is a calculated value from HgbA1c and is truck sales representative of the average blood glucose level in the last 2-3 month period. Performed By: #### HBA1C #### [facility] [address] [place], [place] [address] PROGRESS Observed: 01/29/2018 Status: COMPLETED Source: KAKE 1:24 PM [facility] REPOSITORY HNO ID: [id number] Author: Tino Kaplan (Rn) Service: (none) Author Type: Registered Nurse Type: Progress Notes Filed: 02/26/2018 1:30 PM Note Text: PRIMARY CARE COORDINATION PRE-VISIT ASSESSMENT Provider Action/FYI: Spk with Pt lab/ Pcp Appt reminder. Pt will have labs drawn on 01/30/18, unable to talk at this time Patient has been identified by name and date of . Next Office Visit: 01/30/2018 Last Office Visit Plan/Progress: 05/09/2017 Medication Review: Address in future encounter Health Maintenance: ONE PNEUMOVAX PRIOR TO AGE 67 due on 1978 DTAP,TDAP,TD(1 - Tdap) due on 1981 COLORECTAL CANCER SCREENING,SEE MODIFIER due on 2012 URINE ALBUMIN:CREATININE RATIO due on 05/20/2017 HBA1C due on 07/02/2017 LUNG CANCER SCREENING due on 2017 INFLUENZA(1) due on 12/01/2017 Interventions/PCC Plan of Care: Endo Appt to be scheduled by Pt per his schedule Rosaura Jiménez RN January 29, 2018 CNPTOUTREACH Observed: 01/29/2018 Status: COMPLETED Source: KAKE 12:00 AM [facility] REPOSITORY Patient Outreach (FAMPWS) АНДРЕЙ NICKERSON ([id number]) 1960 M Date Time Provider Department 01/29/18 TINO KAPLAN (RN) FAMPWS During your visit today, we recorded the following information about you: Rosaura Jiménez RN 02/26/2018 1:30 PM Signed PRIMARY CARE COORDINATION PRE-VISIT ASSESSMENT Provider Action/FYI: Spk with Pt lab/ Pcp Appt reminder. Pt will have labs drawn on 01/30/18, unable to talk at this time Patient has been identified by name and date of . Next Office Visit: 01/30/2018 Last Office Visit Plan/Progress: 05/09/2017 Medication Review: Address in future encounter Health Maintenance: ONE PNEUMOVAX PRIOR TO AGE 67 due on 1978 DTAP,TDAP,TD(1 - Tdap) due on 1981 COLORECTAL CANCER SCREENING,SEE MODIFIER due on 2012 URINE ALBUMIN:CREATININE RATIO due on 05/20/2017 HBA1C due on 07/02/2017 LUNG CANCER SCREENING due on 2017 INFLUENZA(1) due on 12/01/2017 Interventions/PCC Plan of Care: Endo Appt to be scheduled by Pt per his schedule Rosaura Jiménez RN January 29, 2018 Allergies As of Date: 01/29/2018 (No Known Allergies) Date Reviewed: 01/17/2018 Reviewed by: Wellington Davila - Fully Assessed Reason for Visit: Eligibility Supervisor Chronic Care [7480] Cmt: DM Prescriptions as of 01/29/2018 Sig: HUMALOG KWIKPEN (U-100) INSUL* INJECT 1-10 I/C BREAKFAST AND S* CLOPIDOGREL 75 MG TABLET TAKE 1 TABLET BY MOUTH ONCE D* ATORVASTATIN 40 MG TABLET TAKE 0.5 TABLETS BY MOUTH ONC* X AMLODIPINE 10 MG TABLET TAKE 1 TABLET BY MOUTH EVERY * INSULIN LISPRO (U-100) 100 UN* 1-10 I/C breakfast AND supper, * INSULIN ASPART U-100 100 UNI* 1-10 I/C breakfast AND supper 1* Patient not taking: Reported on 01/30/2018 METOPROLOL TARTRATE 100 MG TA* Take 1 tablet by mouth twice * ENALAPRIL MALEATE 20 MG TABLET Take 1 tablet by mouth once d* FUROSEMIDE 20 MG TABLET Take 1 tablet by mouth twice * ALBUTEROL SULFATE HFA 90 MCG/* Inhale 2 Puffs as instructed * BUPROPION XL 150 MG TAB Take 1 tablet by mouth once d* PEN NEEDLE, DIABETIC 31 GAUGE* use as directed up to four ti* LANCETS Test blood sugar(s) 3- 4 time* BLOOD SUGAR DIAGNOSTIC STRIPS Checking blood sugars 3-4 benedicto* INSULIN ASPART U-100 100 UNI* Inject subcutaneously up to 4* Patient not taking: Reported on 01/30/2018 INSULIN DETEMIR (U-100) 100 U* INJECT 31 UNITS SUBCUTANEOUSL* CHOLECALCIFEROL (VITAMIN D3) * Take 1 tablet by mouth once d* BLOOD-GLUCOSE METER KIT 1 Each as needed. One Touch M* ASPIRIN 81 MG TABLET,DELAYED * Take 1 tablet by mouth once d* [id number]* Take 1 Dose by mouth every 4 * LIDOCAINE 2 % MUCOSAL SOLUTION Gargle and spit 10-15mLs ever* BLOOD-GLUCOSE METER KIT 1 Each as needed. Problem List As Of Date 01/29/2018 Noted Resolved Obesity (BMI 30.0-34.9) [E66.9] INVALID FOR* Tobacco abuse [Z72.0] INVALID FOR* Hypercholesteremia [E78.00] INVALID FOR* Coronary artery disease [I25.10] INVALID FOR* Hypertension [I10] INVALID FOR* Diabetes mellitus type 2 in obese ([facility]) [E11.69*INVALID FOR*08/10/2015 Background diabetic retinopathy(362.01) ([facility]) *INVALID FOR* Retinal edema [H35.81] INVALID FOR* Other and combined forms of senile cataract [H2*INVALID FOR*02/23/2015 Proliferative diabetic retinopathy(362.02) (HC*INVALID FOR*02/07/2017 Type 1 diabetes mellitus with mild nonprolifera*INVALID FOR* Borderline glaucoma with ocular hypertension - *INVALID FOR* Type 1 diabetes mellitus with stable proliferat*INVALID FOR* History of panretinal photocoagulation - Both E*INVALID FOR* Type II or unspecified type diabetes mellitus w*INVALID FOR*03/31/2015 Growth of eyelid [D49.2] INVALID FOR* 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] INVALID FOR* Optic cupping of both eyes [H47.233] INVALID FOR* Astigmatism of both eyes [H52.203] INVALID FOR* Combined 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 [*INVALID FOR*04/26/2015 Pseudophakia, left eye [Z96.1] INVALID FOR*03/31/2015 Pseudophakia of left eye [Z96.1] INVALID FOR*04/26/2015 Pseudophakia of both eyes [Z96.1] INVALID FOR* Type 1 diabetes mellitus with proliferative ret*INVALID FOR* PCO (posterior capsular opacification) [H26.499]INVALID FOR* Vitreous floaters of both eyes [H43.393] INVALID FOR* Need for vaccination [Z23] INVALID FOR* Tobacco use [Z72.0] INVALID FOR* Essential hypertension [I10] INVALID FOR* Type 1 diabetes mellitus with proliferative ret*INVALID FOR* Obesity, Class II, BMI 35-39.9 [E66.9] INVALID FOR* Colon cancer screening [Z12.11] INVALID FOR* More... 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 Advise continued observation. Strict blood sugar and blood pressure control is recommended. Intraocular lens Both eyes stable. Return to clinic in 3-4 months + as needed. The documentation recorded by the scribe accurately reflects the service I personally performed and the decisions made by me. I have confirmed and edited as necessary the relevant ophthalmic history, ROS, and the neuro exam findings as obtained by others. I have seen and examined Андрей Chu Liya. I have discussed the case and the management of this patient's care with the Critical Care Rn, if applicable. I also have reviewed and agree with the assessment and plan as stated above and agree with all of its relevant components. Wellington Davila MD January 17, 2018 2:11 PM PROGRESS Observed: 01/08/2018 Status: COMPLETED Source: KAKE 3:10 PM [facility] REPOSITORY HNO ID: [id number] Author: Tino Kaplan (Rn) Service: (none) Author Type: Registered Nurse Type: Progress Notes Filed: 01/08/2018 4:01 PM Note Text: PRIMARY CARE COORDINATION INTAKE Provider Action/FYI: 1. Spk with Pt who reports testing BS 3-4 x daily, AC AND prn, BS range 70s-400's, reports frequent urination, and thirst when BS are in 400's, occasional low BS, subtle symptoms of Hypoglycemia felt less as he aged, infrequent Hypoglycemia, reviewed [facility] treatment Protocol. Pt verbalized understanding 2. Pt reports previously used a Insulin Pump, due to job change and insurance stopped using the pump approximately 3-4 yrs ago, using Insulin per sliding scale as directed. 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 3. Pt's goal is to decrease Hgb A1C, establish with Dr. Melissa Gu, reports will be calling soon, number provided for scheduling, mailed BS logs, will provide to Dr. Torres/ PCP 4. Denies CP, has mild Sob with exertion, occasional use of Albuterol inhaler, reports Hx Cardiac stents x3 on Plavix, denies bleeding from any site 5. Denies needs Patient identified for Primary Care Coordination from: PCP Referral Active Goals - Current status as of 01/08/2018 at 3:10 PM Most Recent - Address all appropriate HM and disease care gaps - Annual BMP - Annual foot exam - Annual microalbumin - Annual retina exam - Blood Pressure < 130/80 122/68 (01/07/2018) - Confirm medication adherence of all prescribed medications and uses them correctly - HBA1C drawn quarterly - Hemoglobin A1C < 7 9.5 (04/03/2017) - LDL at or below 100 mg/dL or on a high statin - Tobacco cessation - Understands and follows DASH diet - Weight mgmt/activity Health Maintenance Topics with due status: Overdue Topic Date Due ONE PNEUMOVAX PRIOR TO AGE 67 1978 DTAP,TDAP,TD 1981 COLORECTAL CANCER SCREENING,SEE MODIFIER 2012 URINE ALBUMIN:CREATININE RATIO 05/20/2017 HBA1C 07/02/2017 LUNG CANCER SCREENING 2017 INFLUENZA 12/01/2017 Care Coordination: General Care Coordination (since 10/10/2017) None Social Determinants: Education (since 10/10/2017) None Health Literacy (since 10/10/2017) None Resource Strain (since 10/10/2017) None Depression (since 10/10/2017) None Diet (since 10/10/2017) None Physical Activity (since 10/10/2017) None Tobacco Use (since 10/10/2017) None Alcohol Use (since 10/10/2017) None Social Connection and Isolation (since 10/10/2017) None Intimate Partner Violence (since 10/10/2017) None Stress (since 10/10/2017) None Food Insecurity (since 10/10/2017) None Transportation Needs (since 10/10/2017) None Activities of Daily Living: Patients can perform the following activities without help: (since 10/10/2017) None Instrumental activities of daily living (since 10/10/2017) None Fall Risk: Fall Risk (since 10/10/2017) None Thank You, Rosaura Jiménez RN CNPTOUTREACH Observed: 01/08/2018 Status: COMPLETED Source: KAKE 12:00 AM [facility] REPOSITORY Patient Outreach (FAMPWS) АНДРЕЙ NICKERSON ([id number]) 1960 M Date Time Provider Department 01/08/18 TINO KAPLAN (RN) FAMPWS During your visit today, we recorded the following information about you: Rosaura Jiménez RN 01/08/2018 4:01 PM Signed PRIMARY CARE COORDINATION INTAKE Provider Action/FYI: 1. Spk with Pt who reports testing BS 3-4 x daily, AC AND prn, BS range 70s-400's, reports frequent urination, and thirst when BS are in 400's, occasional low BS, subtle symptoms of Hypoglycemia felt less as he aged, infrequent Hypoglycemia, reviewed [facility] treatment Protocol. Pt verbalized understanding 2. Pt reports previously used a Insulin Pump, due to job change and insurance stopped using the pump approximately 3-4 yrs ago, using Insulin per sliding scale as directed. 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 3. Pt's goal is to decrease Hgb A1C, establish with Dr. Melissa Gu, reports will be calling soon, number provided for scheduling, mailed BS logs, will provide to Dr. Torres/ PCP 4. Denies CP, has mild Sob with exertion, occasional use of Albuterol inhaler, reports Hx Cardiac stents x3 on Plavix, denies bleeding from any site 5. Denies needs Patient identified for Primary Care Coordination from: PCP Referral Active Goals - Current status as of 01/08/2018 at 3:10 PM Most Recent - Address all appropriate HM and disease care gaps - Annual BMP - Annual foot exam - Annual microalbumin - Annual retina exam - Blood Pressure < 130/80 122/68 (01/07/2018) - Confirm medication adherence of all prescribed medications and uses them correctly - HBA1C drawn quarterly - Hemoglobin A1C < 7 9.5 (04/03/2017) - LDL at or below 100 mg/dL or on a high statin - Tobacco cessation - Understands and follows DASH diet - Weight mgmt/activity Health Maintenance Topics with due status: Overdue Topic Date Due ONE PNEUMOVAX PRIOR TO AGE 67 1978 DTAP,TDAP,TD 1981 COLORECTAL CANCER SCREENING,SEE MODIFIER 2012 URINE ALBUMIN:CREATININE RATIO 05/20/2017 HBA1C 07/02/2017 LUNG CANCER SCREENING 2017 INFLUENZA 12/01/2017 Care Coordination: General Care Coordination (since 10/10/2017) None Social Determinants: Education (since 10/10/2017) None Health Literacy (since 10/10/2017) None Resource Strain (since 10/10/2017) None Depression (since 10/10/2017) None Diet (since 10/10/2017) None Physical Activity (since 10/10/2017) None Tobacco Use (since 10/10/2017) None Alcohol Use (since 10/10/2017) None Social Connection and Isolation (since 10/10/2017) None Intimate Partner Violence (since 10/10/2017) None Stress (since 10/10/2017) None Food Insecurity (since 10/10/2017) None Transportation Needs (since 10/10/2017) None Activities of Daily Living: Patients can perform the following activities without help: (since 10/10/2017) None Instrumental activities of daily living (since 10/10/2017) None Fall Risk: Fall Risk (since 10/10/2017) None Thank You, Rosaura Jiménez RN Allergies As of Date: 01/08/2018 (No Known Allergies) Date Reviewed: 01/07/2018 Reviewed by: Delmy Ordoñez) - Fully Assessed Reason for Visit: Eligibility Supervisor Chronic Care [3612] Cmt: Intake Prescriptions as of 01/08/2018 Sig: ANDREA MUNOZ (U-100) INSUL* INJECT 1-10 I/C BREAKFAST AND S* CLOPIDOGREL 75 MG TABLET TAKE 1 TABLET BY MOUTH ONCE D* ATORVASTATIN 40 MG TABLET TAKE 0.5 TABLETS BY MOUTH ONC* AMLODIPINE 10 MG TABLET TAKE 1 TABLET BY MOUTH EVERY * INSULIN LISPRO (U-100) 100 UN* 1-10 I/C breakfast AND supper, * INSULIN ASPART U-100 100 UNI* 1-10 I/C breakfast AND supper 1* METOPROLOL TARTRATE 100 MG TA* Take 1 tablet by mouth twice * ENALAPRIL MALEATE 20 MG TABLET Take 1 tablet by mouth once d* FUROSEMIDE 20 MG TABLET Take 1 tablet by mouth twice * ALBUTEROL SULFATE HFA 90 MCG/* Inhale 2 Puffs as instructed * BUPROPION XL 150 MG TAB Take 1 tablet by mouth once d* PEN NEEDLE, DIABETIC 31 GAUGE* use as directed up to four ti* LANCETS Test blood sugar(s) 3- 4 time* BLOOD SUGAR DIAGNOSTIC STRIPS Checking blood sugars 3-4 benedicto* INSULIN ASPART U-100 100 UNI* Inject subcutaneously up to 4* INSULIN DETEMIR (U-100) 100 U* INJECT 31 UNITS SUBCUTANEOUSL* CHOLECALCIFEROL (VITAMIN D3) * Take 1 tablet by mouth once d* BLOOD-GLUCOSE METER KIT 1 Each as needed. One Touch M* ASPIRIN 81 MG TABLET,DELAYED * Take 1 tablet by mouth once d* [id number]* Take 1 Dose by mouth every 4 * LIDOCAINE 2 % MUCOSAL SOLUTION Gargle and spit 10-15mLs ever* BLOOD-GLUCOSE METER KIT 1 Each as needed. Problem List As Of Date 01/08/2018 Noted Resolved Obesity (BMI 30.0-34.9) [E66.9] INVALID FOR* Tobacco abuse [Z72.0] INVALID FOR* Hypercholesteremia [E78.00] INVALID FOR* Coronary artery disease [I25.10] INVALID FOR* Hypertension [I10] INVALID FOR* Diabetes mellitus type 2 in obese (HCC) [E11.69*INVALID FOR*08/10/2015 Background diabetic retinopathy(362.01) (HCC) *INVALID FOR* Retinal edema [H35.81] INVALID FOR* Other and combined forms of senile cataract [H2*INVALID FOR*02/23/2015 Proliferative diabetic retinopathy(362.02) (HC*INVALID FOR*02/07/2017 Type 1 diabetes mellitus with mild nonprolifera*INVALID FOR* Borderline glaucoma with ocular hypertension - *INVALID FOR* Type 1 diabetes mellitus with stable proliferat*INVALID FOR* History of panretinal photocoagulation - Both E*INVALID FOR* Type II or unspecified type diabetes mellitus w*INVALID FOR*03/31/2015 Growth of eyelid [D49.2] INVALID FOR* 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] INVALID FOR* Optic cupping of both eyes [H47.233] INVALID FOR* Astigmatism of both eyes [H52.203] INVALID FOR* Combined 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 [*INVALID FOR*04/26/2015 Pseudophakia, left eye [Z96.1] INVALID FOR*03/31/2015 Pseudophakia of left eye [Z96.1] INVALID FOR*04/26/2015 Pseudophakia of both eyes [Z96.1] INVALID FOR* Type 1 diabetes mellitus with proliferative ret*INVALID FOR* PCO (posterior capsular opacification) [H26.499]INVALID FOR* Vitreous floaters of both eyes [H43.393] INVALID FOR* Need for vaccination [Z23] INVALID FOR* Tobacco use [Z72.0] INVALID FOR* Essential hypertension [I10] INVALID FOR* Type 1 diabetes mellitus with proliferative ret*INVALID FOR* Obesity, Class II, BMI 35-39.9 [E66.9] INVALID FOR* Colon cancer screening [Z12.11] INVALID FOR* More... Encounter Status:Closed by ROSAURA JIMÉNEZ on 01/08/18 PROGRESS Observed: 01/07/2018 Status: COMPLETED Source: KAKE 4:14 PM [facility] REPOSITORY O ID: [id number] Author: Delmy Carmen (Pa) Service: (none) Author Type: Physician Take Up Supervisor Type: Progress Notes Filed: 01/11/2018 4:30 PM Note Text: HISTORY AND PHYSICAL Андрей Nickerson 1960 REFERRING PHYSICIAN: Handy Oro DO CHIEF COMPLAINT: colon consult HPI: The patient is a 57 year old male referred for endoscopy, this will be his first screening colonoscopy. Jordandawit notes no history of colon complaints. He denies any change in bowel habits, weight changes, blood in stools, black tarry stools or abdominal pain. He denies a family history of colon issues. The patient notes no history of upper GI complaints. The patient is being seen by me today at the request of Dr. Oro for my opinion and advice regarding screening colonoscopy. Past medical history is significant for coronary artery disease, hyperlipidemia, past history of lacunar stroke, mitral valve prolapse, hypertension, tobacco use, type I diabetes mellitus, chronic kidney disease. He has [address], maintained on Plavix. Patient follows with Dr. Oro for his chronic medical conditions and with Dr. Garrett in cardiology-notes he is overdue for routine cardiac follow-up. Patient denies any chest pain, shortness of breath or recent hospitalizations. Denies problems with sedation in the past. PAST MEDICAL HISTORY Diagnosis Date - CKD (chronic kidney disease) stage 3, GFR 30-59 ml/min ([facility]) [facility] - Coronary artery disease 2006 3 stents, last cath 2007, [facility] - Diabetes type 1, uncontrolled ([facility]) 1970 nephropathy, retinopathy, dx age 10, Dr. Leon [facility] - Hyperlipidemia - Hypertension - Lacunar stroke - Macular edema [facility] - MVP (mitral valve prolapse) - Pancreatitis - Proliferative diabetic retinopathy(362.02) [facility] - Tobacco abuse PAST SURGICAL HISTORY Procedure Laterality Date - AVASTIN (BEVACIZUMAB) 1.25MG INTRAVITREAL INJECTION OS (LEFT EYE) x5 (04/16/2015) Dr. Edwards - CARDIAC CATH 2005, 2008, 2011 mid / distal LAD stents DENISHA - PAST SURGICAL HISTORY OF Bilateral Keratectomy - REMV CATARACT EXTRACAP,INSERT LENS Left 03/10/15 Cataract Extraction with PC IOL - REMV CATARACT EXTRACAP,INSERT LENS Right 04/01/15 Cataract Extraction with PC IOL Current Outpatient Prescriptions: HUMALOG KWIKPEN INSULIN 100 unit/mL inpn INJECT 1-10 I/C BREAKFAST AND SUPPER, 1-15 I/C AT LUNCH. MAXIMUM DOSE 40 UNITS DAILY. clopidogrel (PLAVIX) 75 mg tablet TAKE 1 TABLET BY MOUTH ONCE DAILY. atorvastatin (LIPITOR) 40 mg tablet TAKE 0.5 TABLETS BY MOUTH ONCE DAILY. amLODIPine (NORVASC) 10 mg tablet TAKE 1 TABLET BY MOUTH EVERY DAY insulin lispro (HUMALOG U-100 INSULIN) 100 unit/mL injection 1-10 I/C breakfast AND supper, 1-15 I/C at lunch. Maximum dose 40 units daily. insulin aspart U-100 (NOVOLOG) 100 unit/mL soln 1-10 I/C breakfast AND supper 1-15 I/C at lunch 1-10 I/C breakfast AND supper 1-15 I/C at lunch Maximum dose 40 units daily. metoprolol tartrate, short acting, (LOPRESSOR) 100 mg tablet Take 1 tablet by mouth twice daily. enalapril (VASOTEC) 20 mg tablet Take 1 tablet by mouth once daily. furosemide (LASIX) 20 mg tablet Take 1 tablet by mouth twice daily. albuterol HFA (PROVENTIL HFA, VENTOLIN HFA) 90 mcg/actuation inhaler Inhale 2 Puffs as instructed every 6 hours as needed for Wheezing/Shortness of Breath. buPROPion XL (WELLBUTRIN XL) 150 mg 24 hr tablet Take 1 tablet by mouth once daily. Insulin [place], Disposable, (BD ULTRAFINE III MINI PEN) 31 gauge x 3/16 ndle use as directed up to four times daily, E11.9 Lancets (MICROLET LANCET) lancets Test blood sugar(s) 3-4 times daily. Dx: 250.00 . Insulin: Yes blood sugar diagnostic (ONETOUCH ULTRA TEST) test strip Checking blood sugars 3-4 times daily insulin aspart (NOVOLOG FLEXPEN) 100 unit/mL inpn Inject subcutaneously up to 40 units daily insulin detemir (LEVEMIR FLEXTOUCH) 100 unit/mL (3 mL) inpn injection INJECT 31 UNITS SUBCUTANEOUSLY DAILY AT BEDTIME. cholecalciferol (VITAMIN D3) 5,000 unit tab Take 1 tablet by mouth once daily. Blood-Glucose Meter (ONETOUCH ULTRA2) monitoring kit 1 Each as needed. 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 Kndgkmekgidjn-Xdcafpqshchds-BO (TYLENOL SINUS SEVERE) 5-325-200 mg tab Take 1 Dose by mouth every 4 hours as needed. lidocaine viscous (LIDOCAINE VISCOUS) 2 % solution Gargle and spit 10-15mLs every 3-4 hours as need for throat discomfort. Blood-Glucose Meter (ONETOUCH ULTRA 2) monitoring kit 1 Each as needed. No current facility-administered medications for this visit. ALLERGIES: Patient has no known allergies. PERSONAL HISTORY: Social History Marital status: Spouse name: Years of education: Number of children: Social History Main Topics Smoking status: Current Every Day Smoker Packs/day: 1.00 Years: 30.00 Types: Cigarettes Smokeless tobacco: Never Used Alcohol use: Yes Comment: rarely Drug use: Yes Types: Marijuana Comment: occasional Social History Narrative , step children Last cardiac stress test 10/2011- normal, EF 64%, [facility] Needs lifelong Plavix and daily ASA 81mg according to [employer] Transmission [employer] FAMILY HISTORY: FAMILY HISTORY Problem Relation Age of Onset - Diabetes Mother - Thyroid Mother - No Ocular Disease Other REVIEW OF SYMPTOMS: The review of systems data was entered by the nurse and reviewed by me Nursing Notes: Jessica Bentley LPN 01/07/2018 3:36 PM Signed REVIEW OF SYSTEMS: General: The patient denies fatigue, denies weight loss, denies weight gain, denies feeling hot, and denies feelings of cold. Eyes: The patient denies glaucoma, denies eye injury/surgery, wears glasses or contacts. Ear/Nose/Throat: The patient denies allergies, denies hayfever, denies ear infections, and denies bloody noses. Cardiovascular: The patient denies chest pain, denies heart disease, NOTES high blood pressure,NOTES cardiac stent, NOTES prior heart attack, denies irregular heart beat, denies high cholesterol, denies poor circulation, denies heart failure, other cardiac issues, denies claudication, denies cold feet, denies peripheral arterial stent. Respiratory: The patient denies tuberculosis, denies pneumonia, denies frequent cough, denies pulmonary embolism, denies shortness of breath, and denies coughing up blood. Gastrointestinal: The patient denies difficulty swallowing, denies acid reflux, denies ulcers, denies vomiting, denies jaundice/hepatitis, denies gallbladder problems, denies black or tarry stools, denies hemorrhoids, denies bleeding from rectum, denies diverticulitis, denies constipation, denies diarrhea, denies loss of stool control, and denies hernias. Kidney/Bladder: The patient denies kidney stones, denies urine infections, and denies bloody urine. Skin: The patient denies a history of skin cancer, denies bleeding/changing moles, and denies a history of skin rash. Neurologic: The patient denies a history of epilepsy/convulsions, denies headaches, denies head/spinal injuries, and denies stroke/TIA. Psychiatric: The patient denies psychiatric medications, denies depression, and denies voices, denies substance abuse. Endocrine: The patient denies thyroid disorders, denies diabetes, and denies hormonal problems. Hematologic: The patient denies a history of bruising, denies bleeding, and denies anemia, denies blood clots. Infections: The patient denies a history of measles and mumps, denies rheumatic fever, and denies sexually transmitted diseases. Musculoskeletal: The patient denies back pain/injury, denies back problems, denies sciatica, denies knee/foot trouble, denies arthritis, or denies gout. When was patient's last Mammogram screening? N/A Last Colonoscopy: None Jessica Bentley LPN I have confirmed and edited as necessary, the PFSH and ROS obtained by others. PHYSICAL EXAMINATION: General: The patient is 57 year old male, well nourished, well hydrated in no acute distress. The patient is oriented to time, place, and person. VITALS: Blood pressure 122/68, pulse 70, weight 118.4 kg (261 lb). Body mass index is 37.45 kg/m?. HEENT: Normal cephalic, ataumatic, pupils are equally round, sclera are anicteric, mucous membranes are moist, oropharynx is clear. Neck has no masses, asymmetry or lymphadenopathy. Respiratory: Clear to auscultation and percussion. Normal respiratory excursion and pattern. Cardiac: Examination is regular rate and rhythm. Abdominal exam: Soft, nontender, with no palpable masses. No hepatosplenomegaly. No palpable hernias. Rectal exam: exam deferred Extremities: no clubbing, cyanosis or edema. No adenopathy. Other: LABORATORY VALUES: As Noted RADIOLOGIC STUDIES: As Noted Assessment IMPRESSION: encounter for screening colonoscopy PLAN: We will plan for screening colonoscopy. Assisted patient with scheduling cardiology appointment as he is overdue, will plan for colonoscopy after this. We discussed the risks and benefits of the planned endoscopy. I have informed the patient that complications can occur including failure to complete the endoscopy and perforation. The patient had the opportunity to ask questions concerning the planned endoscopy. My staff has also explained the procedure to the patient in understandable terms and has given the patient printed material concerning the procedure. The patient freely consents to surgery. I plan to use golytely bowel preparation for endoscopy. Reviewed importance of good hydration before, during and after bowel preparation Patient instructed to remain on his Plavix for the procedure Patient has been instructed to contact his PCP regarding his diabetic medications for anticipated dosage adjustments the day before and day of procedure Diagnoses: (Z12.11) Encounter for screening colonoscopy (primary encounter diagnosis) My findings have been communicated to Dr. Oro via shared medical record. This note will be forwarded to Dr. Handy Oro DO. Return to Clinic: The patient is instructed to follow-up with me 1 week post operatively. Patient verbalized understanding of all above and agreed with the plan MARIANNA Mcneill Observed: 01/07/2018 Status: COMPLETED Source: KAKE 3:30 PM [facility] REPOSITORY Office Visit (GENSWS) АНДРЕЙ NICKERSON ([id number]) 1960 M Date Time Provider Department 01/07/18 3:30 PM DELMY CARMEN) GENEARLES During your visit today, we recorded the following information about you: Pulse Blood pressure Weight 70/minute 122/68 118.4 kg Jessica Mc CABALLERO 01/07/2018 3:36 PM Signed REVIEW OF SYSTEMS: General: The patient denies fatigue, denies weight loss, denies weight gain, denies feeling hot, and denies feelings of cold. Eyes: The patient denies glaucoma, denies eye injury/surgery, wears glasses or contacts. Ear/Nose/Throat: The patient denies allergies, denies hayfever, denies ear infections, and denies bloody noses. Cardiovascular: The patient denies chest pain, denies heart disease, NOTES high blood pressure,NOTES cardiac stent, NOTES prior heart attack, denies irregular heart beat, denies high cholesterol, denies poor circulation, denies heart failure, other cardiac issues, denies claudication, denies cold feet, denies peripheral arterial stent. Respiratory: The patient denies tuberculosis, denies pneumonia, denies frequent cough, denies pulmonary embolism, denies shortness of breath, and denies coughing up blood. Gastrointestinal: The patient denies difficulty swallowing, denies acid reflux, denies ulcers, denies vomiting, denies jaundice/hepatitis, denies gallbladder problems, denies black or tarry stools, denies hemorrhoids, denies bleeding from rectum, denies diverticulitis, denies constipation, denies diarrhea, denies loss of stool control, and denies hernias. Kidney/Bladder: The patient denies kidney stones, denies urine infections, and denies bloody urine. Skin: The patient denies a history of skin cancer, denies bleeding/changing moles, and denies a history of skin rash. Neurologic: The patient denies a history of epilepsy/convulsions, denies headaches, denies head/spinal injuries, and denies stroke/TIA. Psychiatric: The patient denies psychiatric medications, denies depression, and denies voices, denies substance abuse. Endocrine: The patient denies thyroid disorders, denies diabetes, and denies hormonal problems. Hematologic: The patient denies a history of bruising, denies bleeding, and denies anemia, denies blood clots. Infections: The patient denies a history of measles and mumps, denies rheumatic fever, and denies sexually transmitted diseases. Musculoskeletal: The patient denies back pain/injury, denies back problems, denies sciatica, denies knee/foot trouble, denies arthritis, or denies gout. When was patient's last Mammogram screening? N/A Last Colonoscopy: None Jessica Carmen PA-C 01/11/2018 4:30 PM Signed HISTORY AND PHYSICAL Андрей Nickerson 1960 REFERRING PHYSICIAN: Handy Oro DO CHIEF COMPLAINT: colon consult HPI: The patient is a 57 year old male referred for endoscopy, this will be his first screening colonoscopy. Андрей notes no history of colon complaints. He denies any change in bowel habits, weight changes, blood in stools, black tarry stools or abdominal pain. He denies a family history of colon issues. The patient notes no history of upper GI complaints. The patient is being seen by me today at the request of Dr. Oro for my opinion and advice regarding screening colonoscopy. Past medical history is significant for coronary artery disease, hyperlipidemia, past history of lacunar stroke, mitral valve prolapse, hypertension, tobacco use, type I diabetes mellitus, chronic kidney disease. He has [address], maintained on Plavix. Patient follows with Dr. Oro for his chronic medical conditions and with Dr. Garrett in cardiology-notes he is overdue for routine cardiac follow-up. Patient denies any chest pain, shortness of breath or recent hospitalizations. Denies problems with sedation in the past. PAST MEDICAL HISTORY Diagnosis Date - CKD (chronic kidney disease) stage 3, GFR 30-59 ml/min ([facility]) [facility] - Coronary artery disease 2005 3 stents, last cath 2007, [facility] - Diabetes type 1, uncontrolled ([facility]) 1971 nephropathy, retinopathy, dx age 10, Dr. Leon [facility] - Hyperlipidemia - Hypertension - Lacunar stroke - Macular edema [facility] - MVP (mitral valve prolapse) - Pancreatitis - Proliferative diabetic retinopathy(362.02) [facility] - Tobacco abuse PAST SURGICAL HISTORY Procedure Laterality Date - AVASTIN (BEVACIZUMAB) 1.25MG INTRAVITREAL INJECTION OS (LEFT EYE) x5 (04/16/2015) Dr. Edwards - CARDIAC CATH 2005, 2008, 2011 mid / distal LAD stents DENISHA - PAST SURGICAL HISTORY OF Bilateral Keratectomy - REMV CATARACT EXTRACAP,INSERT LENS Left 03/10/15 Cataract Extraction with PC IOL - REMV CATARACT EXTRACAP,INSERT LENS Right 04/01/15 Cataract Extraction with PC IOL Current Outpatient Prescriptions: HUMALOG KWIKPEN INSULIN 100 unit/mL inpn INJECT 1-10 I/C BREAKFAST AND SUPPER, 1-15 I/C AT LUNCH. MAXIMUM DOSE 40 UNITS DAILY. clopidogrel (PLAVIX) 75 mg tablet TAKE 1 TABLET BY MOUTH ONCE DAILY. atorvastatin (LIPITOR) 40 mg tablet TAKE 0.5 TABLETS BY MOUTH ONCE DAILY. amLODIPine (NORVASC) 10 mg tablet TAKE 1 TABLET BY MOUTH EVERY DAY insulin lispro (HUMALOG U-100 INSULIN) 100 unit/mL injection 1-10 I/C breakfast AND supper, 1-15 I/C at lunch. Maximum dose 40 units daily. insulin aspart U-100 (NOVOLOG) 100 unit/mL soln 1-10 I/C breakfast AND supper 1-15 I/C at lunch 1-10 I/C breakfast AND supper 1-15 I/C at lunch Maximum dose 40 units daily. metoprolol tartrate, short acting, (LOPRESSOR) 100 mg tablet Take 1 tablet by mouth twice daily. enalapril (VASOTEC) 20 mg tablet Take 1 tablet by mouth once daily. furosemide (LASIX) 20 mg tablet Take 1 tablet by mouth twice daily. albuterol HFA (PROVENTIL HFA, VENTOLIN HFA) 90 mcg/actuation inhaler Inhale 2 Puffs as instructed every 6 hours as needed for Wheezing/Shortness of Breath. buPROPion XL (WELLBUTRIN XL) 150 mg 24 hr tablet Take 1 tablet by mouth once daily. Insulin [place], Disposable, (BD ULTRAFINE III MINI PEN) 31 gauge x 3/16 ndle use as directed up to four times daily, E11.9 Lancets (MICROLET LANCET) lancets Test blood sugar(s) 3-4 times daily. Dx: 250.00 . Insulin: Yes blood sugar diagnostic (ONETOUCH ULTRA TEST) test strip Checking blood sugars 3-4 times daily insulin aspart (NOVOLOG FLEXPEN) 100 unit/mL inpn Inject subcutaneously up to 40 units daily insulin detemir (LEVEMIR FLEXTOUCH) 100 unit/mL (3 mL) inpn injection INJECT 31 UNITS SUBCUTANEOUSLY DAILY AT BEDTIME. cholecalciferol (VITAMIN D3) 5,000 unit tab Take 1 tablet by mouth once daily. Blood-Glucose Meter (ONETOUCH ULTRA2) monitoring kit 1 Each as needed. 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 Rpcgyplsujqhj-Xukvkbtwygokg-VV (TYLENOL SINUS SEVERE) 5-325-200 mg tab Take 1 Dose by mouth every 4 hours as needed. lidocaine viscous (LIDOCAINE VISCOUS) 2 % solution Gargle and spit 10-15mLs every 3-4 hours as need for throat discomfort. Blood-Glucose Meter (ONETOUCH ULTRA 2) monitoring kit 1 Each as needed. No current facility-administered medications for this visit. ALLERGIES: Patient has no known allergies. PERSONAL HISTORY: Social History Marital status: Spouse name: Years of education: Number of children: Social History Main Topics Smoking status: Current Every Day Smoker Packs/day: 1.00 Years: 30.00 Types: Cigarettes Smokeless tobacco: Never Used Alcohol use: Yes Comment: rarely Drug use: Yes Types: Marijuana Comment: occasional Social History Narrative , step children Last cardiac stress test 10/2011- normal, EF 64%, [facility] Needs lifelong Plavix and daily ASA 81mg according to [employer] Transmission [employer] FAMILY HISTORY: FAMILY HISTORY Problem Relation Age of Onset - Diabetes Mother - Thyroid Mother - No Ocular Disease Other REVIEW OF SYMPTOMS: The review of systems data was entered by the nurse and reviewed by pr Nursing Notes: Jessica Bentley LPN 01/07/2018 3:36 PM Signed REVIEW OF SYSTEMS: General: The patient denies fatigue, denies weight loss, denies weight gain, denies feeling hot, and denies feelings of cold. Eyes: The patient denies glaucoma, denies eye injury/surgery, wears glasses or contacts. Ear/Nose/Throat: The patient denies allergies, denies hayfever, denies ear infections, and denies bloody noses. Cardiovascular: The patient denies chest pain, denies heart disease, NOTES high blood pressure,NOTES cardiac stent, NOTES prior heart attack, denies irregular heart beat, denies high cholesterol, denies poor circulation, denies heart failure, other cardiac issues, denies claudication, denies cold feet, denies peripheral arterial stent. Respiratory: The patient denies tuberculosis, denies pneumonia, denies frequent cough, denies pulmonary embolism, denies shortness of breath, and denies coughing up blood. Gastrointestinal: The patient denies difficulty swallowing, denies acid reflux, denies ulcers, denies vomiting, denies jaundice/hepatitis, denies gallbladder problems, denies black or tarry stools, denies hemorrhoids, denies bleeding from rectum, denies diverticulitis, denies constipation, denies diarrhea, denies loss of stool control, and denies hernias. Kidney/Bladder: The patient denies kidney stones, denies urine infections, and denies bloody urine. Skin: The patient denies a history of skin cancer, denies bleeding/changing moles, and denies a history of skin rash. Neurologic: The patient denies a history of epilepsy/convulsions, denies headaches, denies head/spinal injuries, and denies stroke/TIA. Psychiatric: The patient denies psychiatric medications, denies depression, and denies voices, denies substance abuse. Endocrine: The patient denies thyroid disorders, denies diabetes, and denies hormonal problems. Hematologic: The patient denies a history of bruising, denies bleeding, and denies anemia, denies blood clots. Infections: The patient denies a history of measles and mumps, denies rheumatic fever, and denies sexually transmitted diseases. Musculoskeletal: The patient denies back pain/injury, denies back problems, denies sciatica, denies knee/foot trouble, denies arthritis, or denies gout. When was patient's last Mammogram screening? N/A Last Colonoscopy: None Jessica Bentley LPN I have confirmed and edited as necessary, the PFSH and ROS obtained by others. PHYSICAL EXAMINATION: General: The patient is 57 year old male, well nourished, well hydrated in no acute distress. The patient is oriented to time, place, and person. VITALS: Blood pressure 122/68, pulse 70, weight 118.4 kg (261 lb). Body mass index is 37.45 kg/m?. HEENT: Normal cephalic, ataumatic, pupils are equally round, sclera are anicteric, mucous membranes are moist, oropharynx is clear. Neck has no masses, asymmetry or lymphadenopathy. Respiratory: Clear to auscultation and percussion. Normal respiratory excursion and pattern. Cardiac: Examination is regular rate and rhythm. Abdominal exam: Soft, nontender, with no palpable masses. No hepatosplenomegaly. No palpable hernias. Rectal exam: exam deferred Extremities: no clubbing, cyanosis or edema. No adenopathy. Other: LABORATORY VALUES: As Noted RADIOLOGIC STUDIES: As Noted Assessment IMPRESSION: encounter for screening colonoscopy PLAN: We will plan for screening colonoscopy. Assisted patient with scheduling cardiology appointment as he is overdue, will plan for colonoscopy after this. We discussed the risks and benefits of the planned endoscopy. I have informed the patient that complications can occur including failure to complete the endoscopy and perforation. The patient had the opportunity to ask questions concerning the planned endoscopy. My staff has also explained the procedure to the patient in understandable terms and has given the patient printed material concerning the procedure. The patient freely consents to surgery. I plan to use golytely bowel preparation for endoscopy. Reviewed importance of good hydration before, during and after bowel preparation Patient instructed to remain on his Plavix for the procedure Patient has been instructed to contact his PCP regarding his diabetic medications for anticipated dosage adjustments the day before and day of procedure Diagnoses: (Z12.11) Encounter for screening colonoscopy (primary encounter diagnosis) My findings have been communicated to Dr. Oro via shared medical record. This note will be forwarded to Dr. Handy Oro DO. Return to Clinic: The patient is instructed to follow-up with me 1 week post operatively. Patient verbalized understanding of all above and agreed with the plan Delmy Carmen PA-C Referring Provider: HANDY ORO [[id number]] Allergies As of Date: 01/07/2018 (No Known Allergies) Date Reviewed: 01/07/2018 Reviewed by: Delmy Carmen (Pa) - Fully Assessed Reason for Visit: colon consult [Other] Primary Visit Diagnosis:Encounter for screening colonoscopy [Z12.11] Order(s):[] peg 3350-Electrolytes (GOLYTELY) 236-22.74-6.74 -5.86 gram suspensionTake 4,000 mL by mouth one time only for 1 dose.Disp: 1 BottleRfl: 0 SURGICAL REQUEST - ELECTIVE [[id number]] Order #: [id number]: 1 Prescriptions as of 01/07/2018 Sig: HUMALOG ALEXANDER (U-100) INSUL* INJECT 1-10 I/C BREAKFAST AND S* PEG 3350-ELECTROLYTES 236 GRA* Take 4,000 mL by mouth one ti* CLOPIDOGREL 75 MG TABLET TAKE 1 TABLET BY MOUTH ONCE D* ATORVASTATIN 40 MG TABLET TAKE 0.5 TABLETS BY MOUTH ONC* AMLODIPINE 10 MG TABLET TAKE 1 TABLET BY MOUTH EVERY * INSULIN LISPRO (U-100) 100 UN* 1-10 I/C breakfast AND supper, * INSULIN ASPART U-100 100 UNI* 1-10 I/C breakfast AND supper 1* METOPROLOL TARTRATE 100 MG TA* Take 1 tablet by mouth twice * ENALAPRIL MALEATE 20 MG TABLET Take 1 tablet by mouth once d* FUROSEMIDE 20 MG TABLET Take 1 tablet by mouth twice * ALBUTEROL SULFATE HFA 90 MCG/* Inhale 2 Puffs as instructed * BUPROPION XL 150 MG TAB Take 1 tablet by mouth once d* PEN NEEDLE, DIABETIC 31 GAUGE* use as directed up to four ti* LANCETS Test blood sugar(s) 3- 4 time* BLOOD SUGAR DIAGNOSTIC STRIPS Checking blood sugars 3-4 benedicto* INSULIN ASPART U-100 100 UNI* Inject subcutaneously up to 4* INSULIN DETEMIR (U-100) 100 U* INJECT 31 UNITS SUBCUTANEOUSL* CHOLECALCIFEROL (VITAMIN D3) * Take 1 tablet by mouth once d* BLOOD-GLUCOSE METER KIT 1 Each as needed. One Touch M* ASPIRIN 81 MG TABLET,DELAYED * Take 1 tablet by mouth once d* GGUONOPVVZFAA-HOGPZYRHUSCOI-C* Take 1 Dose by mouth every 4 * LIDOCAINE 2 % MUCOSAL SOLUTION Gargle and spit 10-15mLs ever* BLOOD-GLUCOSE METER KIT 1 Each as needed. Problem List As Of Date 01/07/2018 Noted Resolved Obesity (BMI 30.0-34.9) [E66.9] INVALID FOR* Tobacco abuse [Z72.0] INVALID FOR* Hypercholesteremia [E78.00] INVALID FOR* Coronary artery disease [I25.10] INVALID FOR* Hypertension [I10] INVALID FOR* Diabetes mellitus type 2 in obese (HCC) [E11.69*INVALID FOR*08/10/2015 Background diabetic retinopathy(362.01) ([facility]) *INVALID FOR* Retinal edema [H35.81] INVALID FOR* Other and combined forms of senile cataract [H2*INVALID FOR*02/23/2015 Proliferative diabetic retinopathy(362.02) (HC*INVALID FOR*02/07/2017 Type 1 diabetes mellitus with mild nonprolifera*INVALID FOR* Borderline glaucoma with ocular hypertension - *INVALID FOR* Type 1 diabetes mellitus with stable proliferat*INVALID FOR* History of panretinal photocoagulation - Both E*INVALID FOR* Type II or unspecified type diabetes mellitus w*INVALID FOR*03/31/2015 Growth of eyelid [D49.2] INVALID FOR* 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] INVALID FOR* Optic cupping of both eyes [H47.233] INVALID FOR* Astigmatism of both eyes [H52.203] INVALID FOR* Combined 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 [*INVALID FOR*04/26/2015 Pseudophakia, left eye [Z96.1] INVALID FOR*03/31/2015 Pseudophakia of left eye [Z96.1] INVALID FOR*04/26/2015 Pseudophakia of both eyes [Z96.1] INVALID FOR* Type 1 diabetes mellitus with proliferative ret*INVALID FOR* PCO (posterior capsular opacification) [H26.499]INVALID FOR* Vitreous floaters of both eyes [H43.393] INVALID FOR* Need for vaccination [Z23] INVALID FOR* Tobacco use [Z72.0] INVALID FOR* Essential hypertension [I10] INVALID FOR* Type 1 diabetes mellitus with proliferative ret*INVALID FOR* Obesity, Class II, BMI 35-39.9 [E66.9] INVALID FOR* Colon cancer screening [Z12.11] INVALID FOR* More... Visit Notes: >> Jessica Bentley LPN Mon Jan 07, 2018 3:35 PM Status: Signed REVIEW OF SYSTEMS: General: The patient denies fatigue, denies weight loss, denies weight gain, denies feeling hot, and denies feelings of cold. Eyes: The patient denies glaucoma, denies eye injury/surgery, wears glasses or contacts. Ear/Nose/Throat: The patient denies allergies, denies hayfever, denies ear infections, and denies bloody noses. Cardiovascular: The patient denies chest pain, denies heart disease, NOTES high blood pressure,NOTES cardiac stent, NOTES prior heart attack, denies irregular heart beat, denies high cholesterol, denies poor circulation, denies heart failure, other cardiac issues, denies claudication, denies cold feet, denies peripheral arterial stent. Respiratory: The patient denies tuberculosis, denies pneumonia, denies frequent cough, denies pulmonary embolism, denies shortness of breath, and denies coughing up blood. Gastrointestinal: The patient denies difficulty swallowing, denies acid reflux, denies ulcers, denies vomiting, denies jaundice/hepatitis, denies gallbladder problems, denies black or tarry stools, denies hemorrhoids, denies bleeding from rectum, denies diverticulitis, denies constipation, denies diarrhea, denies loss of stool control, and denies hernias. Kidney/Bladder: The patient denies kidney stones, denies urine infections, and denies bloody urine. Skin: The patient denies a history of skin cancer, denies bleeding/changing moles, and denies a history of skin rash. Neurologic: The patient denies a history of epilepsy/convulsions, denies headaches, denies head/spinal injuries, and denies stroke/TIA. Psychiatric: The patient denies psychiatric medications, denies depression, and denies voices, denies substance abuse. Endocrine: The patient denies thyroid disorders, denies diabetes, and denies hormonal problems. Hematologic: The patient denies a history of bruising, denies bleeding, and denies anemia, denies blood clots. Infections: The patient denies a history of measles and mumps, denies rheumatic fever, and denies sexually transmitted diseases. Musculoskeletal: The patient denies back pain/injury, denies back problems, denies sciatica, denies knee/foot trouble, denies arthritis, or denies gout. When was patient's last Mammogram screening? N/A Last Colonoscopy: None Jessica Bentley LPN Prescriptions ordered this encounter Disp Refills Start End PEG 3350-ELECTROLYTES 236 GRAM-22.74* 1 Rashaun* 0 01/07/2018 01/07/2018 Route: ORAL Sig: Take 4,000 mL by mouth one time only for 1 dose. Follow-up and Disposition History Recorded Encounter Status:Closed by DELMY CARMEN PA-C on 01/11/18 PROGRESS Observed: 01/07/2018 Status: COMPLETED Source: KAKE 2:28 PM [facility] REPOSITORY [facility] ID: [id number] Author: Tino Kaplan (Rn) Service: (none) Author Type: Registered Nurse Type: Progress Notes Filed: 01/08/2018 3:09 PM Note Text: PRIMARY CARE COORDINATION CHART REVIEW Patient identified for Care Coordination from: PCP Last PCP office visit: 05/09/2017 Next OV: Dr. Oro 01/30/18 CHRONIC DX: Type 1 DM (Retinopathy) CAD HDL HTN CARE GAPS: Hgb A1C 9.5 Urine Albumin UTILIZATION WITHIN THE LAST 12 MONTHS: Pt denies Utilization PRIMARY CARE COORDINATION OUTREACH PLAN: Will reach out to patient for Care Coordination: DM, Hgb A1C 9.5, Endo Appt Rosaura Jiménez RN PROGRESS Observed: 01/07/2018 Status: COMPLETED Source: KAKE 10:26 AM [facility] REPOSITORY HNO ID: [id number] Author: Tino Kaplan (Rn) Service: (none) Author Type: Registered Nurse Type: Progress Notes Filed: 01/07/2018 10:28 AM Note Text: PRIMARY CARE COORDINATION QUICK NOTE Provider Action/FYI Noted Patient identified by name and date . Rosaura Jiménez RN January 07, 2018 10:28 AM CNPTOUTREACH Observed: 01/07/2018 Status: COMPLETED Source: KAKE 12:00 AM [facility] REPOSITORY Patient Outreach (FAMPWS) АНДРЕЙ NICKERSON ([id number]) 1960 M Date Time Provider Department 01/07/18 TINO KAPLAN (RN) FAMPWS During your visit today, we recorded the following information about you: Rosaura Jiménez RN 01/08/2018 3:09 PM Signed PRIMARY CARE COORDINATION CHART REVIEW Patient identified for Care Coordination from: PCP Last PCP office visit: 05/09/2017 Next OV: Dr. Oro 01/30/18 CHRONIC DX: Type 1 DM (Retinopathy) CAD HDL HTN CARE GAPS: Hgb A1C 9.5 Urine Albumin UTILIZATION WITHIN THE LAST 12 MONTHS: Pt denies Utilization PRIMARY CARE COORDINATION OUTREACH PLAN: Will reach out to patient for Care Coordination: DM, Hgb A1C 9.5, Endo Appt Rosaura Jiménez RN Allergies As of Date: 01/07/2018 (No Known Allergies) Date Reviewed: 01/07/2018 Reviewed by: Delmy Ordoñez) - Fully Assessed Reason for Visit: Eligibility Supervisor Chronic Care [3353] Cmt: DM/ Endocrinology Appt Reason For Visit History Recorded Prescriptions as of 01/07/2018 Sig: HUMALOG KWIKPEN (U-100) INSUL* INJECT 1-10 I/C BREAKFAST AND S* PEG 3350-ELECTROLYTES 236 GRA* Take 4,000 mL by mouth one ti* CLOPIDOGREL 75 MG TABLET TAKE 1 TABLET BY MOUTH ONCE D* ATORVASTATIN 40 MG TABLET TAKE 0.5 TABLETS BY MOUTH ONC* AMLODIPINE 10 MG TABLET TAKE 1 TABLET BY MOUTH EVERY * INSULIN LISPRO (U-100) 100 UN* 1-10 I/C breakfast AND supper, * INSULIN ASPART U-100 100 UNI* 1-10 I/C breakfast AND supper 1* METOPROLOL TARTRATE 100 MG TA* Take 1 tablet by mouth twice * ENALAPRIL MALEATE 20 MG TABLET Take 1 tablet by mouth once d* FUROSEMIDE 20 MG TABLET Take 1 tablet by mouth twice * ALBUTEROL SULFATE HFA 90 MCG/* Inhale 2 Puffs as instructed * BUPROPION XL 150 MG TAB Take 1 tablet by mouth once d* PEN NEEDLE, DIABETIC 31 GAUGE* use as directed up to four ti* LANCETS Test blood sugar(s) 3- 4 time* BLOOD SUGAR DIAGNOSTIC STRIPS Checking blood sugars 3-4 benedicto* INSULIN ASPART U-100 100 UNI* Inject subcutaneously up to 4* INSULIN DETEMIR (U-100) 100 U* INJECT 31 UNITS SUBCUTANEOUSL* CHOLECALCIFEROL (VITAMIN D3) * Take 1 tablet by mouth once d* BLOOD-GLUCOSE METER KIT 1 Each as needed. One Touch M* ASPIRIN 81 MG TABLET,DELAYED * Take 1 tablet by mouth once d* [id number]* Take 1 Dose by mouth every 4 * LIDOCAINE 2 % MUCOSAL SOLUTION Gargle and spit 10-15mLs ever* BLOOD-GLUCOSE METER KIT 1 Each as needed. Problem List As Of Date 01/07/2018 Noted Resolved Obesity (BMI 30.0-34.9) [E66.9] INVALID FOR* Tobacco abuse [Z72.0] INVALID FOR* Hypercholesteremia [E78.00] INVALID FOR* Coronary artery disease [I25.10] INVALID FOR* Hypertension [I10] INVALID FOR* Diabetes mellitus type 2 in obese (HCC) [E11.69*INVALID FOR*08/10/2015 Background diabetic retinopathy(362.01) (HCC) *INVALID FOR* Retinal edema [H35.81] INVALID FOR* Other and combined forms of senile cataract [H2*INVALID FOR*02/23/2015 Proliferative diabetic retinopathy(362.02) (HC*INVALID FOR*02/07/2017 Type 1 diabetes mellitus with mild nonprolifera*INVALID FOR* Borderline glaucoma with ocular hypertension - *INVALID FOR* Type 1 diabetes mellitus with stable proliferat*INVALID FOR* History of panretinal photocoagulation - Both E*INVALID FOR* Type II or unspecified type diabetes mellitus w*INVALID FOR*03/31/2015 Growth of eyelid [D49.2] INVALID FOR* 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] INVALID FOR* Optic cupping of both eyes [H47.233] INVALID FOR* Astigmatism of both eyes [H52.203] INVALID FOR* Combined 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 [*INVALID FOR*04/26/2015 Pseudophakia, left eye [Z96.1] INVALID FOR*03/31/2015 Pseudophakia of left eye [Z96.1] INVALID FOR*04/26/2015 Pseudophakia of both eyes [Z96.1] INVALID FOR* Type 1 diabetes mellitus with proliferative ret*INVALID FOR* PCO (posterior capsular opacification) [H26.499]INVALID FOR* Vitreous floaters of both eyes [H43.393] INVALID FOR* Need for vaccination [Z23] INVALID FOR* Tobacco use [Z72.0] INVALID FOR* Essential hypertension [I10] INVALID FOR* Type 1 diabetes mellitus with proliferative ret*INVALID FOR* Obesity, Class II, BMI 35-39.9 [E66.9] INVALID FOR* Colon cancer screening [Z12.11] INVALID FOR* More... Encounter Status:Closed by ROSAURA JIMÉNEZ on 01/08/18 PROGRESS Observed: 01/05/2018 Status: COMPLETED Source: [place] 9:42 AM [facility] RE[facility]IT[facility] HNO ID: [id number] Author: Handy Oro Service: (none) Author Type: Physician Type: Progress Notes Filed: 01/07/2018 10:28 AM Note Text: Order placed Handy Oro, DO PROGRESS Observed: 01/04/2018 Status: COMPLETED Source: [place] 11:48 AM [facility] REPOSITORY HNO ID: [id number] Author: Rosi Valentino [facility] Service: (none) Author Type: (none) Type: Progress Notes Filed: 01/07/2018 10:28 AM Note Text: I spoke with Андрей and he states it's been a bit since he's seen an Rhit. He used to see BJ when she was a part of the [facility]. He is interested in getting set up with another Rhit close to home. I gave him the name and number for Dr. Torres and he said he would call to try to set up an appointment. We schedule an appointment with Dr. Oro for 01/30. He needed a late PM appointment due to his work schedule, and this was the next available. He is aware labs are ordered. Please file so he can get done prior to his appointment. PROGRESS Observed: 01/04/2018 Status: COMPLETED Source: [place] 11:25 AM [facility] REPOSITORY HNO ID: [id number] Author: Rosi Valentino [facility] Service: (none) Author Type: (none) Type: Progress Notes Filed: 01/07/2018 10:28 AM Note Text: PHMA TEAMLET DOCUMENTATION Provider Action/FYI: Please advise if wanting CMP and file PSR Action/FYI: R/S no show appointment. 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 Labs done outside? - no records found @ [facility] Teamlet has identified patient by name and date of . Team: Dr. Santiago Adams Myself ? Last Office Visit:Visit date not found ? Next Office Visit: Visit date not found ? Last BP/Labs: Blood Pressure: Last 3 Encounter BP Readings: Date: BP: 05/09/2017 130/82 09/18/2016 136/87 07/20/2016 112/74 Lipids: Cholesterol, Total (mg/dL) Date Value 04/03/2017 91 08/13/2015 94 HDL Cholesterol (mg/dL) Date Value 04/03/2017 32 08/13/2015 39 LDL Cholesterol (mg/dL) Date Value 04/03/2017 40 08/13/2015 38 Triglyceride (mg/dL) Date Value 04/03/2017 95 08/13/2015 83 HGB A1C: Lab Results Component Value Date HBA1C 9.5 04/03/2017 HBA1C 8.9 01/26/2017 HBA1C 8.8 05/20/2016 TSH: No results found for: TSH) Care Gap: DM - Last HGBA1C is NOT under 9% HTN cholesterol Plan: ? Confirm PCP / Status - active ? Type of appointment needed: Follow-up DM next available with Provider pcp or nut tightener ? Consultation Appointments: n/a Labs, HM and Immunization: Health Maintenance Due: ONE PNEUMOVAX PRIOR TO AGE 67 due on 1978 BP CONTROLLED (<130/80) due on 1980 DTAP,TDAP,TD(1 - Tdap) due on 1981 COLORECTAL CANCER SCREENING,SEE MODIFIER due on 2012 URINE ALBUMIN:CREATININE RATIO due on 05/20/2017 - ordered HBA1C due on 07/02/2017 - ordered INFLUENZA(1) due on 12/01/2017 Rosi Valentino C[facility] CNPTOUTREACH Observed: 01/04/2018 Status: COMPLETED Source: [place] 12:00 AM [facility] REPOSITORY Patient Outreach (INTMWS) АНДРЕЙ NICKERSON ([id number]) 1960 M Date Time Provider Department 01/04/18 ROSI VALENTINO ([facility]) INTMWS During your visit today, we recorded the following information about you: Rosi Valentino Cma 01/07/2018 10:28 AM Signed PHMA TEAMLET DOCUMENTATION Provider Action/FYI: Please advise if wanting [facility] [address] and file PSR Action/FYI: R/S no show appointment. 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 Labs done outside? - no records found @ [facility] Teamlet has identified patient by name and date of . Team: Dr. Santiago Adams Myself ? Last Office Visit:Visit date not found ? Next Office Visit: Visit date not found ? Last BP/Labs: Blood Pressure: Last 3 Encounter BP Readings: Date: BP: 05/09/2017 130/82 09/18/2016 136/87 07/20/2016 112/74 Lipids: Cholesterol, Total (mg/dL) Date Value 04/03/2017 91 08/13/2015 94 HDL Cholesterol (mg/dL) Date Value 04/03/2017 32 08/13/2015 39 LDL Cholesterol (mg/dL) Date Value 04/03/2017 40 08/13/2015 38 Triglyceride (mg/dL) Date Value 04/03/2017 95 08/13/2015 83 HGB A1C: Lab Results Component Value Date HBA1C 9.5 04/03/2017 HBA1C 8.9 01/26/2017 HBA1C 8.8 05/20/2016 TSH: No results found for: TSH) Care Gap: DM - Last HGBA1C is NOT under 9% HTN cholesterol Plan: ? Confirm PCP / Status - active ? Type of appointment needed: Follow-up DM next available with Provider pcp or nut tightener ? Consultation Appointments: n/a Labs, HM and Immunization: Health Maintenance Due: ONE PNEUMOVAX PRIOR TO AGE 67 due on 1978 BP CONTROLLED (<130/80) due on 1980 DTAP,TDAP,TD(1 - Tdap) due on 1981 COLORECTAL CANCER SCREENING,SEE MODIFIER due on 2012 URINE ALBUMIN:CREATININE RATIO due on 05/20/2017 - ordered HBA1C due on 07/02/2017 - ordered INFLUENZA(1) due on 12/01/2017 Rosi Valentino [facility] Rosi Valentino [facility] 01/07/2018 10:28 AM Signed I spoke with Андрей and he states it's been a bit since he's seen an Rhit. He used to see BJ when she was a part of the [facility]. He is interested in getting set up with another Rhit close to home. I gave him the name and number for Dr. Torres and he said he would call to try to set up an appointment. We schedule an appointment with Dr. Oro for 01/30. He needed a late PM appointment due to his work schedule, and this was the next available. He is aware labs are ordered. Please file so he can get done prior to his appointment. Handy Oro DO 01/07/2018 10:28 AM Signed Order placed DO Rosaura Sims RN 01/07/2018 10:28 AM Signed PRIMARY CARE COORDINATION QUICK NOTE Provider Action/FYI Noted Patient identified by name and date . 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 (HCC) [E10.3513] Order(s):COMP METABOLIC PANEL [SQCMP] Order #: [id number] FUTURE LIPID PANEL BASIC [SQLIPB] Order #: [id number] FUTURE Prescriptions as of 01/04/2018 Sig: CLOPIDOGREL 75 MG TABLET TAKE 1 TABLET BY MOUTH ONCE D* ATORVASTATIN 40 MG TABLET TAKE 0.5 TABLETS BY MOUTH ONC* AMLODIPINE 10 MG TABLET TAKE 1 TABLET BY MOUTH EVERY * INSULIN LISPRO (U-100) 100 UN* 1-10 I/C breakfast AND supper, * INSULIN ASPART U-100 100 UNI* 1-10 I/C breakfast AND supper 1* METOPROLOL TARTRATE 100 MG TA* Take 1 tablet by mouth twice * ENALAPRIL MALEATE 20 MG TABLET Take 1 tablet by mouth once d* FUROSEMIDE 20 MG TABLET Take 1 tablet by mouth twice * ALBUTEROL SULFATE HFA 90 MCG/* Inhale 2 Puffs as instructed * BUPROPION XL 150 MG TAB Take 1 tablet by mouth once d* PEN NEEDLE, DIABETIC 31 GAUGE* use as directed up to four ti* LANCETS Test blood sugar(s) 3- 4 time* BLOOD SUGAR DIAGNOSTIC STRIPS Checking blood sugars 3-4 benedicto* INSULIN ASPART U-100 100 UNI* Inject subcutaneously up to 4* INSULIN DETEMIR (U-100) 100 U* INJECT 31 UNITS SUBCUTANEOUSL* CHOLECALCIFEROL (VITAMIN D3) * Take 1 tablet by mouth once d* BLOOD-GLUCOSE METER KIT 1 Each as needed. One Touch M* ASPIRIN 81 MG TABLET,DELAYED * Take 1 tablet by mouth once d* [id number]* Take 1 Dose by mouth every 4 * LIDOCAINE 2 % MUCOSAL SOLUTION Gargle and spit 10-15mLs ever* BLOOD-GLUCOSE METER KIT 1 Each as needed. Problem List As Of Date 01/04/2018 Noted Resolved Obesity (BMI 30.0-34.9) [E66.9] INVALID FOR* Tobacco abuse [Z72.0] INVALID FOR* Hypercholesteremia [E78.00] INVALID FOR* Coronary artery disease [I25.10] INVALID FOR* Hypertension [I10] INVALID FOR* Diabetes mellitus type 2 in obese (HCC) [E11.69*INVALID FOR*08/10/2015 Background diabetic retinopathy(362.01) (HCC) *INVALID FOR* Retinal edema [H35.81] INVALID FOR* Other and combined forms of senile cataract [H2*INVALID FOR*02/23/2015 Proliferative diabetic retinopathy(362.02) (HC*INVALID FOR*02/07/2017 Type 1 diabetes mellitus with mild nonprolifera*INVALID FOR* Borderline glaucoma with ocular hypertension - *INVALID FOR* Type 1 diabetes mellitus with stable proliferat*INVALID FOR* History of panretinal photocoagulation - Both E*INVALID FOR* Type II or unspecified type diabetes mellitus w*INVALID FOR*03/31/2015 Growth of eyelid [D49.2] INVALID FOR* 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] INVALID FOR* Optic cupping of both eyes [H47.233] INVALID FOR* Astigmatism of both eyes [H52.203] INVALID FOR* Combined 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 [*INVALID FOR*04/26/2015 Pseudophakia, left eye [Z96.1] INVALID FOR*03/31/2015 Pseudophakia of left eye [Z96.1] INVALID FOR*04/26/2015 Pseudophakia of both eyes [Z96.1] INVALID FOR* Type 1 diabetes mellitus with proliferative ret*INVALID FOR* PCO (posterior capsular opacification) [H26.499]INVALID FOR* Vitreous floaters of both eyes [H43.393] INVALID FOR* Need for vaccination [Z23] INVALID FOR* Tobacco use [Z72.0] INVALID FOR* Essential hypertension [I10] INVALID FOR* Type 1 diabetes mellitus with proliferative ret*INVALID FOR* Obesity, Class II, BMI 35-39.9 [E66.9] INVALID FOR* Encounter Status:Closed by ROSAURA JIMÉNEZ on 01/07/18 ALEXEI Observed: 07/31/2017 Status: COMPLETED Source: [place] 12:00 AM [facility] REPOSITORY Patient Outreach (FAMPST) АНДРЕЙ NICKERSON ([id number]) 1960 M Date Time Provider Department 07/31/17 HANDY ORO [facility] During your visit today, we recorded the following information about you: Allergies As of Date: 07/31/2017 (No Known Allergies) Date Reviewed: 07/26/2017 Reviewed by: Tiara Edwards - Fully Assessed Visit Diagnosis:Medication management [Z79.899] Order(s):ALBUMIN/CREAT RATIO RND UR [SQUACR] Order #: [id number] FUTURE HGB A1C [[id number]] Order #: [id number] FUTURE Prescriptions as of 07/31/2017 Sig: X FUROSEMIDE 20 MG TABLET TAKE 1 TABLET BY MOUTH TWICE * PEN NEEDLE, DIABETIC 31 GAUGE* use as directed up to four ti* LANCETS Test blood sugar(s) 3- 4 time* BLOOD SUGAR DIAGNOSTIC STRIPS Checking blood sugars 3-4 benedicto* X CLOPIDOGREL 75 MG TABLET TAKE 1 TABLET BY MOUTH ONCE D* INSULIN ASPART U-100 100 UNI* Inject subcutaneously up to 4* INSULIN DETEMIR (U-100) 100 U* INJECT 31 UNITS SUBCUTANEOUSL* X ATORVASTATIN 40 MG TABLET Take 0.5 tablets by mouth onc* X BUPROPION XL 150 MG TAB Take 1 tablet by mouth once d* X AMLODIPINE 10 MG TABLET Take 1 tablet by mouth once d* X ENALAPRIL MALEATE 20 MG TABLET TAKE 1 TABLET BY MOUTH EVERY * CHOLECALCIFEROL (VITAMIN D3) * Take 1 tablet by mouth once d* BLOOD-GLUCOSE METER KIT 1 Each as needed. One Touch M* X ALBUTEROL SULFATE HFA 90 MCG/* Inhale 2 Puffs as instructed * X METOPROLOL TARTRATE 100 MG TA* TAKE 1 TABLET BY MOUTH TWICE * ASPIRIN 81 MG TABLET,DELAYED * Take 1 tablet by mouth once d* [id number]* Take 1 Dose by mouth every 4 * LIDOCAINE 2 % MUCOSAL SOLUTION Gargle and spit 10-15mLs ever* BLOOD-GLUCOSE METER KIT 1 Each as needed. Problem List As Of Date 07/31/2017 Noted Resolved Obesity (BMI 30.0-34.9) [E66.9] INVALID FOR* Tobacco abuse [Z72.0] INVALID FOR* Hypercholesteremia [E78.00] INVALID FOR* Coronary artery disease [I25.10] INVALID FOR* Hypertension [I10] INVALID FOR* Diabetes mellitus type 2 in obese (HCC) [E11.69*INVALID FOR*08/10/2015 Background diabetic retinopathy(362.01) ([facility]) *INVALID FOR* Retinal edema [H35.81] INVALID FOR* Other and combined forms of senile cataract [H2*INVALID FOR*02/23/2015 Proliferative diabetic retinopathy(362.02) (HC*INVALID FOR*02/07/2017 Type 1 diabetes mellitus with mild nonprolifera*INVALID FOR* Borderline glaucoma with ocular hypertension - *INVALID FOR* Type 1 diabetes mellitus with stable proliferat*INVALID FOR* History of panretinal photocoagulation - Both E*INVALID FOR* Type II or unspecified type diabetes mellitus w*INVALID FOR*03/31/2015 Growth of eyelid [D49.2] INVALID FOR* 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] INVALID FOR* Optic cupping of both eyes [H47.233] INVALID FOR* Astigmatism of both eyes [H52.203] INVALID FOR* Combined 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 [*INVALID FOR*04/26/2015 Pseudophakia, left eye [Z96.1] INVALID FOR*03/31/2015 Pseudophakia of left eye [Z96.1] INVALID FOR*04/26/2015 Pseudophakia of both eyes [Z96.1] INVALID FOR* Type 1 diabetes mellitus with proliferative ret*INVALID FOR* PCO (posterior capsular opacification) [H26.499]INVALID FOR* Vitreous floaters of both eyes [H43.393] INVALID FOR* Need for vaccination [Z23] INVALID FOR* Tobacco use [Z72.0] INVALID FOR* Essential hypertension [I10] INVALID FOR* Type 1 diabetes mellitus with proliferative ret*INVALID FOR* Obesity, Class II, BMI 35-39.9 [E66.9] INVALID FOR* Encounter Status:Closed by YANNA RODRIGUEZ on 01/11/18 PROGRESS Observed: 07/25/2017 Status: COMPLETED Source: [place] 10:00 AM [facility] REPOSITORY HNO ID: [id number] Author: Tiara Edwards Service: (none) Author Type: Physician Type: Progress Notes Filed: 07/26/2017 8:34 AM Note Text: ASSESSMENT/PLAN: E10.3513 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 (HCC) (primary encounter diagnosis) Comment: diagnosed at 10yo - s/p panretinal laser photocoagulation both eyes - stable today E35.81 Retinal edema - Left Eye Comment:s/p Avastin x 10 (04-16-2015) - stable today without fluid on OCT Z96.1 Pseudophakia both eyes Comment: - right eye: s/p Cataract extraction 04/01/2015 - left eye: s/p Cataract extraction 03/10/2015 - Posterior capsular opacity left eye - could consider YAG laser - recommend Manifest refraction at convenience Follow up 6 months with Tiara Edwards MD Any documentation recorded by the scribe accurately reflects the service I personally performed and the decisions made by myself, Tiara Edwards MD. I have confirmed and edited as necessary the relevant ophthalmic history, ROS, and the neuro exam findings as obtained by others. I have seen and examined Андрей Nickerson. I have discussed the case and the management of this patient's care with the Resident/Fellow, if applicable. I also have reviewed and agree with the assessment and plan as stated above and agree with all of its relevant components. PROGRESS Observed: 05/11/2017 Status: COMPLETED Source: [place] 7:01 AM [facility] REPOSITORY HNO ID: [id number] Author: Handy Oro Service: (none) Author Type: Physician Type: Progress Notes Filed: 05/11/2017 8:23 AM Note Text: Patient presents with: Follow Up: medication Imm/Inj: Flu Vaccine HPI: Андрей Nickerson is a 56 year old male who presents to the office today for review of health conditions. Concerns today: Type 1 diabetes- admits to poor recent care of himself. 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 Hasn't seen GODWIN Licona in Endocrinology recently. Is interested in insulin pump options- had one before on a clinical trial. Worked well for his lifestyle. Tobacco use disorder, interested in quitting smoking at this time. Mr. Nickerson has past history of diabetes. Since our last visit he denies excessive thirst or increased frequency of urination, chest pain or dyspnea , new or unusual visual symptoms and low sugar/hypoglycemic reactions. Follows a diabetic diet generally not very much. He is not compliant with medication(s) but is tolerating med(s) without any side effects. He reports checking his glucose on a infrequent to not at all basis schedule. Patient's last HgA1C was Hemoglobin A1C (%) Date Value 04/03/2017 9.5 01/26/2017 8.9 ) Last Ophthalmology exam was within the past 12 months Mr. Nickerson reports history of hyperlipidemia. Current therapy includes atorvastatin (Lipitor) 40 mg. Denies side effects of muscle weakness or achiness. His most recent lipid panels are reviewed. Cholesterol, Total (mg/dL) Date Value 04/03/2017 91 HDL Cholesterol (mg/dL) Date Value 04/03/2017 32 LDL Cholesterol (mg/dL) Date Value 04/03/2017 40 Triglyceride (mg/dL) Date Value 04/03/2017 95 Mr. Nickerson indicates a history of hypertension and states that he is feeling well and denies any symptoms referable to elevated blood pressure. Specifically denies headache, chest pain, palpitations, dyspnea and peripheral edema. Patient denies any side effects of his medication(s) and is compliant with their regimen. Last 3 Encounter BP Readings: Date: BP: 05/09/2017 130/82 09/18/2016 136/87 07/20/2016 112/74 He watches his diet for sodium, low fat and low cholesterol some of the time. He does not check BP's generally. Андрей gets minimal exercise. PAST MEDICAL HISTORY Diagnosis Date - CKD (chronic kidney disease) stage 3, GFR 30-59 ml/min [facility] - Coronary artery disease 2006 3 stents, last cath 2007, [facility] - Diabetes type 1, uncontrolled (HCC) 1971 nephropathy, retinopathy, dx age 10, Dr. Carolyn TOBAR [facility] - Hyperlipidemia - Hypertension - Lacunar stroke (HCC) - Macular edema [facility] - MVP (mitral valve prolapse) - Pancreatitis - Proliferative diabetic retinopathy(362.02) [facility] - Tobacco abuse PAST SURGICAL HISTORY Procedure Laterality Date - AVASTIN (BEVACIZUMAB) 1.25MG INTRAVITREAL INJECTION OS (LEFT EYE) x5 (08/05/13) Dr. Edwards - CARDIAC CATH 2005, 2008, 2011 mid / distal LAD stents DENISHA - PAST SURGICAL HISTORY OF Bilateral Keratectomy - REMV CATARACT EXTRACAP,INSERT LENS Left 03/10/15 Cataract Extraction with PC IOL - REMV CATARACT EXTRACAP,INSERT LENS Right 04/01/15 Cataract Extraction with PC IOL Social History Marital status: Spouse name: Years of education: Number of children: Social History Main Topics Smoking status: Current Every Day Smoker Packs/day: 1.00 Years: 30.00 Types: Cigarettes Smokeless status: Never Used Alcohol use: Yes Comment: rarely Drug use: Yes Special: Marijuana Comment: occasional Social History Narrative , step children Last cardiac stress test 10/2011- normal, EF 64%, Dr. 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 insulin detemir (LEVEMIR FLEXTOUCH) 100 unit/mL (3 mL) inpn injection INJECT 31 UNITS SUBCUTANEOUSLY DAILY AT BEDTIME. amLODIPine (NORVASC) 10 mg tablet Take 1 tablet by mouth once daily. enalapril (VASOTEC) 20 mg tablet TAKE 1 TABLET BY MOUTH EVERY DAY furosemide (LASIX) 20 mg tablet TAKE 1 TABLET BY MOUTH TWICE DAILY. Insulin [place], Disposable, (BD ULTRAFINE III MINI PEN) 31 gauge x 3/16 ndle use as directed up to four times daily, E11.9 cholecalciferol (VITAMIN D3) 5,000 unit tab Take 1 tablet by mouth once daily. Blood-Glucose Meter (ONETOUCH ULTRA2) monitoring kit 1 Each as needed. One Touch Meter Kit, Dx: E10.3219 Type1 dm with mild nonproliferative diabetic retinopathy/macular edema albuterol HFA (PROVENTIL HFA, VENTOLIN HFA) 90 mcg/actuation inhaler Inhale 2 Puffs as instructed every 6 hours as needed for Wheezing/Shortness of Breath. clopidogrel (PLAVIX) 75 mg tablet Take 1 tablet by mouth once daily. blood sugar diagnostic (ONETOUCH ULTRA TEST) test strip Checking blood sugars 3-4 times daily aspirin, enteric coated (ECOTRIN LOW STRENGTH) 81 mg EC tablet Take 1 tablet by mouth once daily. Prpngjausvkps-Kwtpfxfqlogud-HU (TYLENOL SINUS SEVERE) 5-325-200 mg tab Take 1 Dose by mouth every 4 hours as needed. Blood-Glucose Meter (ONETOUCH ULTRA 2) monitoring kit 1 Each as needed. buPROPion XL (WELLBUTRIN XL) 150 mg 24 hr tablet Take 1 tablet by mouth once daily. metoprolol tartrate, short acting, (LOPRESSOR) 100 mg tablet TAKE 1 TABLET BY MOUTH TWICE DAILY. Lancets (MICROLET LANCET) lancets Test blood sugar(s) 3-4 times daily. Dx: 250.00 . Insulin: Yes lidocaine viscous (LIDOCAINE VISCOUS) 2 % solution Gargle and spit 10-15mLs every 3-4 hours as need for throat discomfort. Review of Systems: The remainder of the review of systems is negative. PE: 05/09/17 1832 BP: 130/82 Pulse: 76 Resp: 20 Temp: 36.3 ?C (97.4 ?F) TempSrc: Temporal Artery Weight: 117 kg (258 lb) Gen: AANDO, NAD, non-toxic appearing, obese, cooperative HEENT: NT/AC, PERRLA, wearing glasses, EOMs intact b/l, nares clear and patent b/l, pharynx without erythema, exudate or lesions. Uvula midline, MMM Neck: supple, No cervical LAD, no thyromegaly, no carotid bruits CV: RRR, normal S1S2, no murmurs, no gallops, no rubs, Pulses 2+ and symmetric in UE and LE b/l Lungs: normal respiratory effort, CTA b/l, no wheezing or rhonchi or rales Abd: soft, obese, NT, ND, +BS, no hepatosplenomegaly MS: FROM all 4 extremities Neuro: CN II-XII intact b/l, strength 5/5 b/l UE and LE, DTRs 2/4 UE and LE, sensation intact. Skin: warm, dry, intact, No rashes or lesions on exposed skin. Smells of tobacco ASSESSMENT/PLAN: 1. Type 1 diabetes mellitus with proliferative retinopathy of both eyes, macular edema presence unspecified (HCC) - ICD9: 250.51, 362.02, ICD10: E10.3593 (primary diagnosis) - poor control, needs to be managed by Rhit as d/w him today, Type 1 uncontrolled - INSULIN ASPART 100 UNIT/ML SUBCUTANEOUS PEN - INSULIN DETEMIR 100 UNIT/ML (3 ML) SUBCUTANEOUS PEN 2. Hypercholesteremia - ICD9: 272.0, ICD10: E78.00 - good control - Continue current medication. - Encouraged following a low fat, low cholesterol diet. - Discussed the benefits of regular aerobic exercise and weight loss. - Check fasting lipid panel and ALT in 6 months. - ATORVASTATIN 40 MG TABLET 3. Need for vaccination - ICD9: V05.9, ICD10: Z23 - INFLUENZA VACCINE QUADRIVALENT AGE 3 YRS PLUS + IM 4. Tobacco use - ICD9: 305.1, ICD10: Z72.0 - Cessation encouraged. - Physiologic and physical aspects of tobacco addiction as well as strategies for quitting were discussed. - Counseling was given focusing on the harmful effects of this addiction especially given the patient's medical condition(s) which will be worsened because of the chemicals in tobacco. - BUPROPION XL 150 MG TAB 5. Essential hypertension - ICD9: 401.9, ICD10: I10 - good control - Continue current medication(s) - Encouraged dietary sodium restriction/DASH diet - Recommended regular aerobic exercise. - Recommend home blood pressure monitoring, to bring results in on next visit - Discussed need and benefit for weight loss. - Goal of BP <130/80 6. Coronary artery disease involving [place] coronary artery of [place] heart without angina pectoris - ICD9: 414.01, ICD10: I25.10 - hx of, continue medications, needs to quit smoking, needs to see Rhit for better diabetes control Handy Oro DO To ER if develops chest pain, shortness of breath, or severe worsening of symptoms. Discussed risks, benefits, alternatives, and potential side effects of medications. Patient expressed understanding and agreed with the plan. Handy Oro DO [address] [place] [id number] PROGRESS Observed: 05/09/2017 Status: COMPLETED Source: [place] 6:39 PM [facility] RE[facility]IT[facility] HNO ID: [id number] Author: Christine Killian LPN Service: (none) Author Type: (none) Type: Progress Notes Filed: 05/11/2017 8:23 AM Note Text: 56 year old male here for INACTIVATED INFLUENZA VACCINE. 2484-7392 Season Patient is identified by name and date of : Yes [] CONTRAINDICATIONS color enhanced section Age less than 6 months? No Allergy to eggs, chicken, chicken feathers, or chicken dander? No Allergy to thimerosal (a preservative) or formaldehyde? No History of severe reaction to any vaccine component or a previous dose of influenza vaccination? No History of Guillain-[place] Syndrome within 6 weeks after a previous influenza vaccine? No Current moderate or severe illness? no Current temperature greater or equal to 100.4F? No History of Bone Marrow Transplant in past 6 months or solid organ transplant in the past 3 months ? No [] VERIFICATION color enhanced section Was the answer Yes for any of the above contraindications? No contraindications present. Acceptable to proceed with vaccine. Patient/guardian agrees the above answers are true to the best of their knowledge? Yes Flu vaccine information sheet given? Yes See immunization activity in [facility] for details of immunizations adminstered today. Patient age: [age] year old For The 5963-7120 Flu Season 6-35 months old: Fluzone 0.25 ml - IM (Preservative Free) 3 years of age: Fluzone 0.5 ml - IM (Preservative Free) 3 years and older: Fluzone 0.5 ml- IM-(with Preservatives) 65+ years old: Fluzone High-Dose 0.5 ml - IM (Preservative Free) REMEMBER: If patient is less than 9 years of age and this is the first vaccine of Influenza to be received in any flu season, they should receive a second dose in one months time. ALLERGIES ALLERGIES DATE TYPE / CODE NAME / CODE REACTION SEVERITY SOURCE 03/07/2018 Drug No Known Unknown [facility] Allergy/416 Allergies/L44233 Hospital 728923(SNOM 0388(RXNORM) Repository ED CT) Drug NO KNOWN [facility] Class/58128 ALLERGIES [place] 1003(SNOMED Repository CT) ENCOUNTERS ENCOUNTERS ADMIT/DISCHARGE ACCOUNT ADMITTING ENCOUNTER LOCATION SOURCE NUMBER CLASS 04/22/2018 [id number] [facility] ing:LAB.FUTUR Repository E 03/18/2018 [id number] [facility] ing: Repository 03/07/2018/03/07/20 [id number] Ambulatory BMSBuilding:B Ursula [address] [place] [address] Repository 01/30/2018/02/01/20 [id number] Ambulatory [address] Repository 01/30/2018/01/31/20 [id number] Ambulatory [address] Repository 01/17/2018/01/19/20 [id number] Ambulatory [address] Repository 01/07/2018/01/14/20 [id number] Ambulatory [address] Repository 07/26/2017/07/28/19 [id number] Ambulatory [address] Repository 05/09/2017/05/11/19 [id number] Ambulatory [address] Repository PAYERS PAYERS ENCOUNTER GUARANTOR PAYER SUBSCRIBER SOURCE 04/22/2018 АНДРЕЙ [id number] Insurance:Aide IYER: [facility] [place]: [id number] [id number] Repository 12857Lrn: [phone]) Date:3860-91-42DY [phone] (HP) [id number] LASHONDA BUENROSTRO [id number]: 04/22/2018 Secondary NOT GIVENUNK Ursula Insurance:SELF PAY [facility] Number: Effective Repository Date:2018-04-22 03/18/2018 АНДРЕЙ Chu Primary LUIS Vergara [id number] Insurance:AETNAPolicy BOWMANDOB: [facility] Number: [id number] [id number] Repository 23439Xcd: ([phone]) Date:3531-44-33BT [phone] (HP) [id number] LASHONDA BUENROSTRO [address]CF: 03/18/2018 Secondary NOT GIVENUNK Ursula Insurance:SELF PAY [facility] Number: Effective Repository Date:2018-03-06 03/07/2018 АНДРЕЙ Chu Primary LUIS Vergara [id number] Insurance:AETNAPolicy [place]: [facility] Number: [id number] [id number] Repository 33702Vkw: ([phone]) Date:6729-77-51AZ [phone] (HP) [id number] LASHONDA BUENROSTRO [address]JL: 03/07/2018 Secondary NOT GIVENUNK Ursula Insurance:SELF PAY [facility] Number: Effective Repository Date:2018-03-07
== END ==
PROVIDERS: Family Provider Student in an Organized Health Care Education/Training Program; PCP Student in an Organized Health Care Education/Training Program; Referring Provider Internal Medicine Nephrology; Visit Provider Internal Medicine Nephrology
DX: N18.4 Chronic kidney disease, stage 4 (severe) (principal)
CPT/HCPCS: 76770

== ENCOUNTER → 2018-04-30 17:01 | Outpatient (CLI) | payer OTHER, SELFPAY ==
[2018-03-07 14:52] VITALS: BMI 38.1
[2018-04-30 17:39] LABS: Hematocrit 47.3 % (40-54); Hemoglobin 16.5 g/dl (13.0-16.5); Mean Corp Hgb Conc 34.9 g/gl (32-36); Mean Corpuscular Hgb 30.7 pg (27.0-32.0); Mean Corpuscular Volume 88.1 fL (80-94); Mean Platelet Vol. 10.2 fl (6.2-12.0); Platelet Count 218 K/mm3 (150-450); RBC Distribution Width CV 13.6 % (11.6-14.6); RBC Distribution Width SD 43.8 fl (35.1-43.9); Red Blood Count 5.37 M/mm3 (4.6-6.2); White Blood Count 10.9 K/mm3 (4.4-11.0)
[2018-04-30 17:47] LABS: Scan Indicated on CBC? Y/N NO
[2018-04-30 18:22] LABS: Albumin, Serum 3.6 g/dL (3.2-5.0); BUN 50 mg/dL (7-18); BUN/Creat Ratio 15.2 RATIO (10-20); Calcium,Total 8.6 mg/dL (8.5-10.1); Chloride 111 mmol/L (98-107); EST Glomerular Filtration Rate 21 mL/min (>60); Est Glom Filt Rate - Afr Amer 25 mL/min (>60); Glucose 95 mg/dL (74-106); Phosphorus 5.2 mg/dL (2.5-4.9); Potassium 4.8 mmol/L (3.5-5.1); Sodium Level 142 mmol/L (136-145)
[2018-04-30 18:36] LABS: PTHIN 472.3 pg/mL (18.4-80.1)
== END ==
LOC: LAB 17:03
PROVIDERS: Family Provider Student in an Organized Health Care Education/Training Program; PCP Student in an Organized Health Care Education/Training Program; Referring Provider Internal Medicine Nephrology; Visit Provider Internal Medicine Nephrology
DX: N18.4 Chronic kidney disease, stage 4 (severe) (principal)
CPT/HCPCS: 36415; 80069; 83970; 85027

== ENCOUNTER → 2018-05-01 09:16 | Outpatient (CLI) | payer OTHER, SELFPAY ==
[2018-03-07 14:52] VITALS: BMI 38.1
[2018-05-01 10:20] LABS: 24HR. UA Prot. Total Volume 3450 mL; Creat.Clear Total Volume 3450 mL; Creatinine Clearance 37 ml/min (100-200); Creatinine Serum Creat 3.3 mg/dL (0.8-1.3); EST Glomerular Filtration Rate 21 mL/min (>60); Est Glom Filt Rate - Afr Amer 21 mL/min (>60); Urine Protein (24 Hour) 190.9 mg/dL (<11.9)
== END ==
LOC: LABSPEC 09:20
PROVIDERS: Family Provider Student in an Organized Health Care Education/Training Program; PCP Student in an Organized Health Care Education/Training Program; Referring Provider Internal Medicine Nephrology; Visit Provider Internal Medicine Nephrology
DX: N18.4 Chronic kidney disease, stage 4 (severe) (principal)
CPT/HCPCS: 36415; 81050; 82575; 84156

== ENCOUNTER → 2018-06-20 08:57 | Outpatient (CLI) | payer OTHER, SELFPAY ==
[2018-05-21 13:28] VITALS: BMI 36.8
[2018-06-20 10:39] LABS: BUN 45 mg/dL (7-18); BUN/Creat Ratio 12.3 RATIO (10-20); Calcium,Total 8.3 mg/dL (8.5-10.1); Chloride 110 mmol/L (98-107); Creatinine, Serum 3.66 mg/dL (0.70-1.30); EST Glomerular Filtration Rate 18 mL/min (>60); Est Glom Filt Rate - Afr Amer 22 mL/min (>60); Glucose 228 mg/dL (74-106); Phosphorus 4.4 mg/dL (2.5-4.9); Potassium 5.1 mmol/L (3.5-5.1); Sodium Level 139 mmol/L (136-145)
== END ==
LOC: LAB.FUTURE 08:59
PROVIDERS: Family Provider Student in an Organized Health Care Education/Training Program; PCP Student in an Organized Health Care Education/Training Program; Referring Provider Internal Medicine Nephrology; Visit Provider Internal Medicine Nephrology
DX: N18.4 Chronic kidney disease, stage 4 (severe) (principal); N25.81 Secondary hyperparathyroidism of renal origin
CPT/HCPCS: 36415; 80069; 83970

== ENCOUNTER 2018-07-29 12:06 | Outpatient (RCR) | payer OTHER, SELFPAY ==
[2018-05-21 13:28] VITALS: BMI 36.8
[2018-07-29 13:26] LABS: Albumin, Serum 2.8 g/dL (3.2-5.0); BUN 38 mg/dL (7-18); BUN/Creat Ratio 10.7 RATIO (10-20); Calcium,Total 8.1 mg/dL (8.5-10.1); Chloride 110 mmol/L (98-107); Creatinine, Serum 3.54 mg/dL (0.70-1.30); EST Glomerular Filtration Rate 19 mL/min (>60); Est Glom Filt Rate - Afr Amer 23 mL/min (>60); Glucose 199 mg/dL (74-106); Phosphorus 4.4 mg/dL (2.5-4.9); Potassium 4.6 mmol/L (3.5-5.1); Sodium Level 143 mmol/L (136-145)
[2018-07-29 13:35] LABS: Hemoglobin A1c 7.2 % (4.2-6.3)
== END 2018-07-30 23:59 ==
LOC: LAB.FUTURE 12:06
PROVIDERS: Nurse Practitioner; Family Provider Student in an Organized Health Care Education/Training Program; PCP Student in an Organized Health Care Education/Training Program; Referring Provider Internal Medicine Nephrology; Visit Provider Internal Medicine Nephrology
DX: N18.4 Chronic kidney disease, stage 4 (severe) (principal); E10.65 Type 1 diabetes mellitus with hyperglycemia
CPT/HCPCS: 36415; 80069; 83036

== ENCOUNTER 2018-09-19 09:50 | Outpatient (RCR) | payer OTHER, SELFPAY ==
[2018-05-21 13:28] VITALS: BMI 36.8
[2018-09-19 11:26] LABS: Albumin, Serum 2.4 g/dL (3.2-5.0); BUN 49 mg/dL (7-18); BUN/Creat Ratio 14.2 RATIO (10-20); Calcium,Total 8.7 mg/dL (8.5-10.1); Chloride 109 mmol/L (98-107); Creatinine, Serum 3.46 mg/dL (0.70-1.30); EST Glomerular Filtration Rate 20 mL/min (>60); Est Glom Filt Rate - Afr Amer 24 mL/min (>60); Glucose 235 mg/dL (74-106); Phosphorus 4.6 mg/dL (2.5-4.9); Potassium 4.9 mmol/L (3.5-5.1); Sodium Level 138 mmol/L (136-145)
== END 2018-09-29 23:59 ==
LOC: LAB.FUTURE 09:50
PROVIDERS: Family Provider Student in an Organized Health Care Education/Training Program; PCP Student in an Organized Health Care Education/Training Program; Referring Provider Internal Medicine Nephrology; Visit Provider Internal Medicine Nephrology
DX: N18.4 Chronic kidney disease, stage 4 (severe) (principal)
CPT/HCPCS: 36415; 80069

== ENCOUNTER → 2018-10-02 13:20 | Outpatient (CLI) | payer OTHER, SELFPAY ==
[2018-05-21 13:28] VITALS: BMI 36.8
[2018-10-02 17:30] LABS: PTHIN 245.2 pg/mL (18.4-80.1)
== END ==
LOC: POLAB3 13:21
PROVIDERS: Family Provider Student in an Organized Health Care Education/Training Program; PCP Student in an Organized Health Care Education/Training Program; Visit Provider Internal Medicine Nephrology
DX: N25.81 Secondary hyperparathyroidism of renal origin (principal)
CPT/HCPCS: 36415; 83970

== ENCOUNTER → 2019-01-08 08:08 | Outpatient (CLI) | payer OTHER, SELFPAY ==
[2018-05-21 13:28] VITALS: BMI 36.8
[2019-01-08 09:43] LABS: PTHIN 288.6 pg/mL (18.4-80.1)
[2019-01-08 15:12] LABS: Albumin, Serum 3.1 g/dL (3.2-5.0); BUN 46 mg/dL (7-18); BUN/Creat Ratio 12.5 RATIO (10-20); Calcium,Total 8.9 mg/dL (8.5-10.1); Chloride 111 mmol/L (98-107); Creatinine, Serum 3.67 mg/dL (0.70-1.30); EST Glomerular Filtration Rate 18 mL/min (>60); Est Glom Filt Rate - Afr Amer 22 mL/min (>60); Glucose 57 mg/dL (74-106); Phosphorus 4.8 mg/dL (2.5-4.9); Potassium 4.5 mmol/L (3.5-5.1); Sodium Level 141 mmol/L (136-145)
== END ==
LOC: LAB.FUTURE 08:11 → LAB 08:13
PROVIDERS: Family Provider Student in an Organized Health Care Education/Training Program; PCP Student in an Organized Health Care Education/Training Program; Referring Provider Internal Medicine Nephrology; Visit Provider Internal Medicine Nephrology
DX: N25.81 Secondary hyperparathyroidism of renal origin (principal); N18.4 Chronic kidney disease, stage 4 (severe)
CPT/HCPCS: 36415; 80069; 83970

== ENCOUNTER → 2019-03-05 07:58 | Outpatient (CLI) | payer OTHER, SELFPAY ==
[2018-05-21 13:28] VITALS: BMI 36.8
[2019-03-05 09:01] LABS: Albumin, Serum 2.9 g/dL (3.2-5.0); BUN 66 mg/dL (7-18); BUN/Creat Ratio 14.8 RATIO (10-20); Calcium,Total 8.9 mg/dL (8.5-10.1); Chloride 112 mmol/L (98-107); Creatinine, Serum 4.46 mg/dL (0.70-1.30); EST Glomerular Filtration Rate 15 mL/min (>60); Est Glom Filt Rate - Afr Amer 18 mL/min (>60); Glucose 139 mg/dL (74-106); Phosphorus 4.9 mg/dL (2.5-4.9); Potassium 4.4 mmol/L (3.5-5.1); Sodium Level 140 mmol/L (136-145)
[2019-03-05 09:38] LABS: PTHIN 114.2 pg/mL (18.4-80.1)
== END ==
PROVIDERS: Family Provider Student in an Organized Health Care Education/Training Program; PCP Student in an Organized Health Care Education/Training Program; Referring Provider Internal Medicine Nephrology; Visit Provider Internal Medicine Nephrology
DX: N18.4 Chronic kidney disease, stage 4 (severe) (principal); N25.81 Secondary hyperparathyroidism of renal origin
CPT/HCPCS: 36415; 80069; 83970

== ENCOUNTER → 2019-04-23 08:12 | Outpatient (CLI) | payer OTHER, SELFPAY ==
[2018-05-21 13:28] VITALS: BMI 36.8
[2019-04-23 09:30] LABS: Albumin, Serum 2.6 g/dL (3.2-5.0); BUN 76 mg/dL (7-18); BUN/Creat Ratio 13.8 RATIO (10-20); Calcium,Total 8.4 mg/dL (8.5-10.1); Chloride 110 mmol/L (98-107); EST Glomerular Filtration Rate 12 mL/min (>60); Est Glom Filt Rate - Afr Amer 14 mL/min (>60); Glucose 217 mg/dL (74-106); Phosphorus 4.9 mg/dL (2.5-4.9); Potassium 4.8 mmol/L (3.5-5.1); Sodium Level 136 mmol/L (136-145)
[2019-04-23 09:38] LABS: PTHIN 336.3 pg/mL (18.4-80.1)
[2019-04-23 09:40] LABS: Protein, Urine (Random) 231.1 mg/dL (<11.9); Protein:Creat Ratio 3166 mg/g CRE (0-200)
== END ==
PROVIDERS: Family Provider Student in an Organized Health Care Education/Training Program; PCP Student in an Organized Health Care Education/Training Program; Referring Provider Internal Medicine Nephrology; Visit Provider Internal Medicine Nephrology
DX: E10.22 Type 1 diabetes mellitus with diabetic chronic kidney disease (principal); N18.4 Chronic kidney disease, stage 4 (severe); N25.81 Secondary hyperparathyroidism of renal origin
CPT/HCPCS: 36415; 80069; 82570; 83970; 84156

== ENCOUNTER → 2019-05-29 08:11 | Outpatient (CLI) | payer OTHER, SELFPAY ==
[2018-05-21 13:28] VITALS: BMI 36.8
[2019-05-29 09:14] LABS: Hematocrit 41.2 % (40-54); Hemoglobin 13.6 g/dL (13.0-16.5); Mean Corpuscular Hgb 29.6 pg (27.0-32.0); Mean Corpuscular Volume 89.6 fL (80-94); Mean Platelet Vol. 10.1 fl (6.2-12.0); Platelet Count 203 K/mm3 (150-450); RBC Distribution Width CV 13.5 % (11.6-14.6); RBC Distribution Width SD 44.5 fl (35.1-43.9); White Blood Count 9.9 K/mm3 (4.4-11.0)
[2019-05-29 09:34] LABS: Albumin, Serum 2.9 g/dL (3.2-5.0); BUN 54 mg/dL (7-18); BUN/Creat Ratio 10.5 RATIO (10-20); Calcium,Total 8.5 mg/dL (8.5-10.1); Chloride 109 mmol/L (98-107); Creatinine, Serum 5.16 mg/dL (0.70-1.30); EST Glomerular Filtration Rate 12 mL/min (>60); Est Glom Filt Rate - Afr Amer 15 mL/min (>60); Glucose 181 mg/dL (74-106); Phosphorus 5.5 mg/dL (2.5-4.9); Potassium 4.6 mmol/L (3.5-5.1); Sodium Level 139 mmol/L (136-145)
== END ==
LOC: LAB.FUTURE 08:13 → LAB 08:17
PROVIDERS: PCP Student in an Organized Health Care Education/Training Program; Referring Provider Internal Medicine Nephrology; Visit Provider Internal Medicine Nephrology
DX: N18.4 Chronic kidney disease, stage 4 (severe) (principal); N25.81 Secondary hyperparathyroidism of renal origin
CPT/HCPCS: 36415; 80069; 83970; 85027

== ENCOUNTER → 2019-06-06 09:33 | Outpatient (CLI) | payer OTHER, SELFPAY ==
[2018-05-21 13:28] VITALS: BMI 36.8
--- NOTE | 2019-06-06 09:37 | VDUE_ITS ---
Reason For Study: CKD Right Arm Left Arm Right Cephalic Vein at the wrist measures Left Cephalic Vein at the wrist measures 0.27 x 0.28 cm. 0.27 x 0.31 cm. Right Cephalic Vein in the forearm measures Left Cephalic Vein in the forearm measures 0.32 x 0.34 cm. 0.33 x 0.34 cm. Right Cephalic Vein below antecub measures Left Cephalic Vein below antecub measures 0.26 x 0.27 cm. 0.30 x 0.36 cm. Branch below AC 0.24 x 0.28 cm. Left Cephalic Vein above antecub measures Branch mid bicep 0.33 x 0.34 cm. 0.48 x 0.49 cm. Branch at shoulder measures 0.22 x 0.23 cm. Left Cephalic Vein at mid bicep measures Right Cephalic Vein above antecub measures 0.43 x 0.42 cm. 0.46 x 0.55 cm. Left Cephalic Vein at the shoulder measures Right Cephalic Vein mid bicep measures 0.54 0.39 x 0.41 cm. x 0.55 cm. Basilic vein at origin measures 0.53 x 0.54 Right Cephalic Vein at the shoulder measures cm. 0.48 x 0.52 cm. Basilic vein at bicep measures 0.50 x 0.54 Right Basilic Vein at the origin measures cm. 0.32 x 0.34 cm. Basilic vein above antecub measures 0.50 x Right Basilic Vein mid bicep measures 0.33 x 0.54 cm. 0.32 cm. Left Brachial artery measures 0.48 x 0.48 cm Right Basilic Vein above antecub measures with a velocity of 94.1 cm/sec. 0.35 x 0.37 cm. Left Radial artery measures 0.21 x 0.21 cm Right Brachial artery measures 0.49 x 0.50 with a velocity of 70.8 cm/sec. cm with a velocity of 87.4 cm/sec. Right Radial artery measures 0.22 x 0.23 cm with a velocity of 89 cm/sec. Interpretation Summary Patent and compressible bilateral cephalic and basilic veins with dimensions as noted Branches involving the right cephalic vein Adequate diameter and flow bilateral brachial arteries Borderline bilateral radial artery diameter. Ordering Physician: Rosario Cardenas Referring Physician: Handy Butler Performed By: Liset Jarrett RVT ?
== END ==
LOC: CVS 09:34
PROVIDERS: PCP Student in an Organized Health Care Education/Training Program; Referring Provider Internal Medicine Nephrology; Visit Provider Internal Medicine Nephrology
DX: Z01.818 Encounter for other preprocedural examination (principal); N18.4 Chronic kidney disease, stage 4 (severe)
CPT/HCPCS: 93970

== ENCOUNTER 2019-07-03 08:55 | Emergency (ER) | payer OTHER, SELFPAY ==
[2019-06-16 14:34] VITALS: BMI 36.8
--- NOTE | 2019-07-03 08:53 | EKG12_ITS ---
Test Reason : Blood Pressure : / mmHG Vent. Rate : 089 BPM Atrial Rate : 089 BPM P-R Int : 204 ms QRS Dur : 100 ms QT Int : 370 ms P-R-T Axes : 036 -80 080 degrees QTc Int : 450 ms Normal sinus rhythm Pulmonary disease pattern Incomplete right bundle branch block Left anterior fascicular block Abnormal ECG Confirmed by STEPHON ZUÑIGA, FELA ([id number]), assignment editor WANG SMITH ([id number]) on 07/08/2019 2:24:50 PM Referred By: SHAMIKA Confirmed By:BÁRBARA SZYMANSKI MD
--- NOTE | 2019-07-03 09:00 | RAD_ITS ---
STUDY: X-RAY CHEST REASON FOR EXAM: Male, 58 years old. SOB, SORE THROAT, HX VT AND CARDIAC STENTS TECHNIQUE: Single AP portable view of the chest. COMPARISON: Comparison is made with prior study dated January 07, 2016. FINDINGS: EKG electrodes are seen. Mild increased markings are seen in the right middle lobe suggestive of early right middle lobe infiltrate. There is no demonstrated pleural abnormality. Normal size heart. Normal mediastinum and violeta. Normal visualized pulmonary arteries. Normal visualized aortic arch and descending thoracic aorta. There are diffuse degenerative changes of the visualized thoracic spine. Normal visualized ribs, clavicles, and shoulders. There is no demonstrated abnormality of the visualized soft tissue structures of the upper abdomen. RAD/Chest 1 View (Portable) IMPRESSION: Findings suggestive of right middle lobe infiltrate. Electronically Signed: Gumaro Barbosa, at 9:42 EDT , Service support ,
[2019-07-03 09:27] LABS: Absolute Lymphocyte Count 1.49 X10^3/uL (0.83-4.51); Basophil# 0.08 X10^3/uL; Basophil% 0.8 % (0-1); Differential Indicated SCAN CRITERIA MET; Eosinophils% 2.8 % (0-5); Hematocrit 38.5 % (40-54); Hemoglobin 12.9 g/dL (13.0-16.5); Lymphocyte # 1.49 X10^3/ul (4.0); Mean Corp Hgb Conc 33.5 g/dL (32-36); Mean Corpuscular Hgb 30.1 pg (27.0-32.0); Mean Corpuscular Volume 89.7 fL (80-94); Mean Platelet Vol. 10.4 fl (6.2-12.0); Monocyte# 1.71 X10^3/uL; NRBC Flagged by Analyzer 0 % (0-5); Neutrophil # 7.02 X10^3/uL (2.7-7.7); Neutrophil % 65.8 % (47-70); POSITIVE DIFFERENTIAL YES; Platelet Count 186 K/mm3 (150-450); RBC Distribution Width CV 13.1 % (11.6-14.6); RBC Distribution Width SD 43.1 fl (35.1-43.9); Red Blood Count 4.29 M/mm3 (4.6-6.2); White Blood Count 10.7 K/mm3 (4.4-11.0)
[2019-07-03 09:28] LABS: Differential Comment SCANNED
[2019-07-03 09:32] LABS: Anion Gap 10 (5-15); BUN 63 mg/dL (7-18); BUN/Creat Ratio 10.5 RATIO (10-20); Calcium,Total 8.5 mg/dL (8.5-10.1); Chloride 104 mmol/L (98-107); Creatinine, Serum 6.02 mg/dL (0.70-1.30); EST Glomerular Filtration Rate 10 mL/min (>60); Est Glom Filt Rate - Afr Amer 12 mL/min (>60); Glucose 349 mg/dL (74-106); Potassium 4.2 mmol/L (3.5-5.1); Sodium Level 136 mmol/L (136-145)
== END 2019-07-03 10:17 | disposition home or self-care (01) ==
PROVIDERS: Emergency Provider Emergency Medicine; PCP Student in an Organized Health Care Education/Training Program
DX: J18.9 Pneumonia, unspecified organism (principal); I25.10 Atherosclerotic heart disease of native coronary artery without angina pectoris; E11.9 Type 2 diabetes mellitus without complications; I12.0 Hypertensive chronic kidney disease with stage 5 chronic kidney disease or end stage renal disease; N18.5 Chronic kidney disease, stage 5; I25.2 Old myocardial infarction; F17.200 Nicotine dependence, unspecified, uncomplicated
CPT/HCPCS: 71045; 80048; 84484; 85025; 93005; 99283; A4216

== ENCOUNTER → 2019-07-08 08:07 | Outpatient (CLI) | payer OTHER, SELFPAY ==
[2018-05-21 13:28] VITALS: BMI 36.8
[2019-06-16 14:34] VITALS: BMI 36.8
[2019-07-08 08:37] LABS: 24HR. UA Prot. Total Volume 3850 mL; Urine Protein (24 Hour) 230.6 mg/dL (<11.9)
[2019-07-08 09:58] LABS: Albumin, Serum 2.3 g/dL (3.2-5.0); BUN 78 mg/dL (7-18); BUN/Creat Ratio 12.7 RATIO (10-20); Calcium,Total 8.5 mg/dL (8.5-10.1); Chloride 108 mmol/L (98-107); Creatinine, Serum 6.13 mg/dL (0.70-1.30); EST Glomerular Filtration Rate 10 mL/min (>60); Est Glom Filt Rate - Afr Amer 12 mL/min (>60); Glucose 245 mg/dL (74-106); PTHIN 219.9 pg/mL (18.4-80.1); Phosphorus 5.6 mg/dL (2.5-4.9); Potassium 4.5 mmol/L (3.5-5.1); Sodium Level 138 mmol/L (136-145)
[2019-07-08 10:04] LABS: Creat.Clear Total Volume 3850 mL; Creatinine Clearance 18 ml/min (100-200); Creatinine Serum Creat 6.1 mg/dL (0.8-1.3); EST Glomerular Filtration Rate 10 mL/min (>60); Est Glom Filt Rate - Afr Amer 12 mL/min (>60)
== END ==
PROVIDERS: PCP Student in an Organized Health Care Education/Training Program; Referring Provider Internal Medicine Nephrology; Visit Provider Internal Medicine Nephrology
DX: N18.4 Chronic kidney disease, stage 4 (severe) (principal); N25.81 Secondary hyperparathyroidism of renal origin
CPT/HCPCS: 36415; 80069; 81050; 82575; 83970; 84156

== ENCOUNTER 2019-07-28 08:31 | Day surgery (SDC) | payer OTHER, SELFPAY ==
[2019-06-16 14:34] VITALS: BMI 36.8
--- NOTE | 2019-07-25 07:00 | EKG12_ITS ---
Test Reason : PREOP Blood Pressure : / mmHG Vent. Rate : 068 BPM Atrial Rate : 068 BPM P-R Int : 224 ms QRS Dur : 108 ms QT Int : 422 ms P-R-T Axes : 048 -76 089 degrees QTc Int : 448 ms Sinus rhythm with 1st degree A-V block Left anterior fascicular block Nonspecific T wave abnormality Abnormal ECG Confirmed by MARCELINO ZUÑIGA, JAVIER ([id number]), editor in chief WANG SMITH ([id number]) on 07/28/2019 10:27:57 AM Referred By: Shamir Tsai Confirmed By:JAVIER BENSON MD
[2019-07-25 08:07] LABS: Hematocrit 36.7 % (40-54); Hemoglobin 12.2 g/dL (13.0-16.5); Mean Corp Hgb Conc 33.2 g/dL (32-36); Mean Corpuscular Hgb 29.3 pg (27.0-32.0); Mean Platelet Vol. 10.2 fl (6.2-12.0); Platelet Count 199 K/mm3 (150-450); RBC Distribution Width CV 13.2 % (11.6-14.6); RBC Distribution Width SD 42.8 fl (35.1-43.9); Red Blood Count 4.17 M/mm3 (4.6-6.2); White Blood Count 9.1 K/mm3 (4.4-11.0)
[2019-07-25 08:30] LABS: Anion Gap 8 (5-15); BUN 64 mg/dL (7-18); Chloride 107 mmol/L (98-107); Creatinine, Serum 5.83 mg/dL (0.70-1.30); EST Glomerular Filtration Rate 11 mL/min (>60); Est Glom Filt Rate - Afr Amer 13 mL/min (>60); Glucose 125 mg/dL (74-106); Potassium 4.4 mmol/L (3.5-5.1); Sodium Level 139 mmol/L (136-145)
[2019-07-28 09:14] VITALS: BP 164/87; PULSE 64; RESP 16; TEMP 37.2; O2SAT 100; BMI 34.7
[2019-07-28] MEDS: 0.45% Normal Saline 1,000 ML 30 ML IV (09:35)
[2019-07-28 09:45] LABS: Bedside Glucose 183 mg/dL (70-110)
--- NOTE | 2019-07-28 10:20 | PCM.HP.BLA ---
Problem List (1) CKD (chronic kidney disease) stage 4, GFR 15-29 ml/min Status: Chronic History and Physical Date of Admission: 07/28/19 Stage IV chronic renal insufficiency in need of hemodialysis access in the form of an arteriovenous fistula Intake Visit Reasons: FISTULA PLACEMENT 06/04 Chief Complaint: fistula placement Health Record Technician Required: No Is patient in pain?: No Allergies No Known Allergies Allergy (Verified 06/16/19 14:22) Medications Clopidogrel Bisulfate [Plavix] 75 mg PO DAILY 01/26/13 [History Confirmed 06/16/19] FreeStyle Maikol 14 Day Sensor See Dose Instructions .ROUTE .MEDSUPPLY #1 ea NS 03/20/18 [Rx Confirmed 06/16/19] cholecalciferol (vitamin D3) 50 mcg (2,000 unit) capsule 2,000 unit PO DAILY 05/21/18 [History Confirmed 06/16/19] blood sugar diagnostic See Dose Instructions .ROUTE .MEDSUPPLY #630 ea 06/29/18 [Rx Confirmed 06/16/19] insulin detemir U-100 100 unit/mL (3 mL) subcutaneous pen 36 unit SC DAILY #33 ml 06/29/18 [Rx Confirmed 06/16/19] insulin lispro 100 unit/mL subcutaneous pen See Rx Instructions SC TID #36 ml 06/29/18 [Rx Confirmed 06/16/19] pen needle, diabetic 31 gauge x 06/15 See Dose Instructions .ROUTE .MEDSUPPLY #360 ea 06/29/18 [Rx Confirmed 06/16/19] amlodipine 10 mg tablet 5 mg PO DAILY tab 06/16/19 [History Confirmed 06/16/19] aspirin 325 mg tablet 325 mg PO DAILY 06/16/19 [History Confirmed 06/16/19] atorvastatin 40 mg tablet 40 mg PO DAILY 06/16/19 [History Confirmed 06/16/19] bupropion HCl 150 mg tablet,12 hr sustained-release 150 mg PO DAILY 06/16/19 [History Confirmed 06/16/19] calcitriol 0.5 mcg capsule 0.5 mcg PO DAILY 06/16/19 [History Confirmed 06/16/19] metoprolol tartrate 100 mg tablet 100 mg PO DAILY 06/16/19 [History Confirmed 06/16/19] [facility] Medical History (Updated 06/16/19 @ 14:[address] Shamir Tsai MD) CKD (chronic kidney disease) stage 4, GFR 15-29 ml/min (Chronic) Diabetes type 1, uncontrolled (Chronic) DM2 (diabetes mellitus, type 2) (Chronic) Tobacco abuse (Acute) Hyperlipidemia (Chronic) HTN (hypertension) (Chronic) CAD (coronary artery disease) (Chronic) CKD (chronic kidney disease) stage 4, GFR 15-29 ml/min (Chronic) Stroke (Acute) Cataracts, bilateral (Acute) Heart disease (Acute) Kidney disease (Acute) Pancreatitis (Acute) Stroke (Acute) Type 1 diabetes (Acute) HTN (hypertension) (Chronic) Surgical History (Updated 06/16/19 @ 14:19 by Nayeli Whitaker) H/O cardiac catheterization (Acute) History of bilateral cataract extraction (Acute) Family History Mother Diabetes Social History (Updated 06/16/19 @ 14:[address] Shamir Tsai MD) Smoking Status: Current every day smoker alcohol intake: current substance use type: does not use HPI HPI HPI: АНДРЕЙ BEAVER, is a 58 M who presents to the office today for surgical consultation regarding arteriovenous fistula creation. The patient has chronic stage IV renal insufficiency. He is right arm dominant. He has been a long-term diabetic. He has been a long-term cigarette smoker and he continues to smoke. He is referred by Dr. Rosario Cardenas and a written copy of my surgical consult recommendations will be returned to her. As of May 29, 2019 BUN was 54 with a creatinine 5.16 and an estimated GFR 12. [facility] [address] [place] [id number] Saphenous Vein Mapping, Bilat 06/06/19 0952 MR#: [id number]:[id number] Name:АНДРЕЙ BEAVERRep #:[id number] : 1960 58From:Shamir Tsai MD Attending Dr: Darline Cardenas DO: REG CLI Ordering Dr: Rosario Cardenas DODate: 06/06/19 Location:CVSSex: Admitted: Reason For Study: CKD Right Arm Left Arm Right Cephalic Vein at the wrist measures Left Cephalic Vein at the wrist measures 0.27 x 0.28 cm. 0.27 x 0.31 cm. Right Cephalic Vein in the forearm measures Left Cephalic Vein in the forearm measures 0.32 x 0.34 cm. 0.33 x 0.34 cm. Right Cephalic Vein below antecub measures Left Cephalic Vein below antecub measures 0.26 x 0.27 cm. 0.30 x 0.36 cm. Branch below AC 0.24 x 0.28 cm. Left Cephalic Vein above antecub measures Branch mid bicep 0.33 x 0.34 cm. 0.48 x 0.49 cm. Branch at shoulder measures 0.22 x 0.23 cm. Left Cephalic Vein at mid bicep measures Right Cephalic Vein above antecub measures 0.43 x 0.42 cm. 0.46 x 0.55 cm. Left Cephalic Vein at the shoulder measures Right Cephalic Vein mid bicep measures 0.54 0.39 x 0.41 cm. x 0.55 cm. Basilic vein at origin measures 0.53 x 0.54 Right Cephalic Vein at the shoulder measures cm. 0.48 x 0.52 cm. Basilic vein at bicep measures 0.50 x 0.54 Right Basilic Vein at the origin measures cm. 0.32 x 0.34 cm. Basilic vein above antecub measures 0.50 x Right Basilic Vein mid bicep measures 0.33 x 0.54 cm. 0.32 cm. Left Brachial artery measures 0.48 x 0.48 cm Right Basilic Vein above antecub measures with a velocity of 94.1 cm/sec. 0.35 x 0.37 cm. Left Radial artery measures 0.21 x 0.21 cm Right Brachial artery measures 0.49 x 0.50 with a velocity of 70.8 cm/sec. cm with a velocity of 87.4 cm/sec. Right Radial artery measures 0.22 x 0.23 cm with a velocity of 89 cm/sec. Interpretation Summary Patent and compressible bilateral cephalic and basilic veins with dimensions as noted Branches involving the right cephalic vein Adequate diameter and flow bilateral brachial arteries Borderline bilateral radial artery diameter. Ordering Physician: Rosario Cardenas Referring Physician: Handy Butler Performed By: Liset Jarrett, RVT ? 06/07/19 1717 Date Shamir Tsai MD HPI HPI HPI: АНДРЕЙ BEAVER, is a 58 M who presents to the office today for ROS General General: No weight change, appetite, fatigue, colon cancer, breast cancer or weakness HEENT HEENT: Yes eye surgery; no difficulty swallowing, eye injury, swollen glands or hoarseness Endo Endocrine: Yes diabetes mellitus; no thyroid disease, thyroid cancer, Hair loss, heat intolerance or cold intolerance Skin Skin: No rash or changing moles Breast Breast: No left breast lump, right breast lump, nipple discharge, breast pain, abnormal mammogram, abnormal US or breast enlargement Musc Musculoskeletal: No back problems, arthritis, rheumatoid arthritis, gout or joint pain Cardio Cardiovascular: Yes heart disease, high blood pressure, heart attack and heart stent; no murmur, pacemaker, atrial fibrillation, palpitations, shortness of breat with exertion or chest pain Psych Psychiatric: No depression, anxiety or hearing voices Resp Respiratory: No shortness of breath, No sleep apnea, No cough, No COPD, No asthma, No emphysema, No wheezing Gastro Gastrointestinal: No abdominal pain, No nausea or vomiting, No diarrhea, No constipation, No blood in stool, No acid reflux, No hemorrhoids, No ulcers, No gallbladder problem, No black,tarry stools Amor Hematologic: Yes blood thinners, No blood disorders, No bleeding, No anemia, No blood clots Neuro Neurologic: No system reviewed and no additional complaints, except as docu, No as per HPI, No abnormal walking, No abnormal hearing, No abnormal movements, No abnormal speech, No behavioral changes, No burning sensations, No confusion, No seizure-like activity, No unsteadiness, No dizziness, No localized weakness, No frequent falls, No headache(s), No lack of coordination, No loss of vision, No memory loss, No numbness, No other visual disturbances, No radiating pain, No restless legs, No sensory deficit, No fainting, No tingling, No tremor(s), No weakness, Yes other (stroke) Exam Const General: cooperative, no acute distress Nutritional Appearance: obese Other: Heavy odor of tobacco Chest Breast Palpation: No nipple discharge Cardio Heart Sounds: no murmurs Extrem Other: Left upper extremity patent and compressible cephalic vein and 3+ left radial pulse Psych Affect: normal affect Assessment & Plan Problems 1. CKD (chronic kidney disease) stage 4, GFR 15-29 ml/min N18.4 Plan I recommend to the patient a left forearm radiocephalic arteriovenous fistula creation. I described the technique, benefit, risk of alternatives. He has had an opportunity to ask and have questions answered. The patient states that his standard of health is remained unchanged since his office visit. He denies fever or chills or sweats. He has multiple areas of ecchymosis but he attributes that to the fact that he mows the lawn and that he takes clopidogrel. I have again reviewed with him plans to create a left forearm radiocephalic arteriovenous hemodialysis fistula. He is aware of the technique, benefit, risks, alternatives. He has had an opportunity to ask and have questions answered. We will proceed as indicated. Shamir Tsai M.D., F.A.C.S. Essential Procedure Criteria Procedure Essential: Yes Criteria Note: On 06/17/2019 the [place] Department of Health ([facility]) Public Order signed by [facility] Director Tiara Coronel M.D., regarding the Management of Non-Essential Surgeries and Procedures for the purpose of preserving Personal Protective Equipment (PPE) and critical hospital capacity and resources within [place] went into effect as of 06/18/2019 at 5:00PM. According to the [facility] Public Order: This action will remain in full force and effect until the State of Emergency declared by the Governor no longer exists or the Director of the [facility] rescinds or modifies this Order.. This [facility] order stated all non-essential or elective surgeries and procedures that utilize PPE should be delayed unless there is undue risk to the current or future health of a patient. After reviewing the aforementioned [facility] Public Order and the patients clinical case, I have determined that the scheduled procedure meets the criteria to go forward. Risk to Patient if Procedure Delayed: Risk of rapidly worsening to severe symptoms
--- NOTE | 2019-07-28 10:25 | DCINST_ITS ---
Discharge Diet: Renal Diet Discharge Activity: May Not Drive - for 2-3 days or while taking narcotic pain medications., May Shower, May Take a Tub Bath - in 5 days. Lifting Restrictions: 5 pounds Keep extremity elevated above heart level: - - Keep arm elevated above the heart level for 3 days. Additional Activity Instructions:: Exercise hand vigorously with a stress ball. Call your doctor if your incision/area has: Continuous Slow Oozing, Sudden Increased Bleeding - apply pressure and call your doctor., Increased Pain/ Swelling, Increased Redness, Foul Smelling Discharge Call your doctor if you observe: Fever of 101 or Higher Suture Line Care: Avoid Pulling/Pushing, Avoid Pinching/Bending Cleanse incision/area with: Keep Dressing Clean & Dry Additional Dressing/Incision Instructions:: Elevate your left arm for comfort. You may keep the wrap dressing in place for 2 days. You may then remove the elastic wrap and gauze dressing. Leave the Steri-Strips in place for 1 additional week. You may protect the Steri-Strips with an oversized Band-Aid or gauze and tape if needed. Do not shower for 2 days. Start exercising your left hand with a stress ball as often as tolerated daily. You may start the exercises tomorrow. Contact our office in one 1 week with a phone call progress report. We will then provide a return to work date. Office follow-up will be in 3 weeks. Allergies/Adverse Reactions: Allergies No Known Allergies Allergy (Verified 07/28/19 09:12) Medications to take at Discharge Clopidogrel Bisulfate [Plavix] 75 mg PO DAILY 01/26/13 FreeStyle Maikol 14 Day Sensor See Dose Instructions .ROUTE .MEDSUPPLY #1 ea NS 03/20/18 insulin lispro 100 unit/mL subcutaneous pen See Rx Instructions SC TID #36 ml 06/29/18 amlodipine 10 mg tablet 5 mg PO DAILY tab 06/16/19 aspirin 325 mg tablet 325 mg PO DAILY 06/16/19 atorvastatin 40 mg tablet 40 mg PO QHS 06/16/19 bupropion HCl 150 mg tablet,12 hr sustained-release 150 mg PO DAILY 06/16/19 calcitriol 0.5 mcg capsule 0.5 mcg PO DAILY 06/16/19 metoprolol tartrate 100 mg tablet 100 mg PO DAILY 06/16/19 Albuterol IH (ProAir) [Proair Hfa] 1 - 2 puff INHALATION Q6H PRN PRN 07/24/19 Insulin Detemir [Levemir FlexPen] 36 units SUBCUT QHS 07/24/19 Hydrocodone Bitart/Apap 5-325 [[place] 5MG-325MG] 1 tab PO Q6H PRN PRN 2 Days #5 tab 07/28/19 The following prescriptions were given: Hydrocodone Bitart/Apap 5-325 [[place] 5MG-325MG] 1 tab PO Q6H PRN PRN 2 Days #5 tab PRN Reason: Pain Transmission Status: Received by [id number] Primary Care Physician: Handy Henderson DO [Primary Care Provider] - Test Results: Test results from this visit will be discussed in further detail at your follow- up appointment, if applicable. Please Follow Up With: Shamir Tsai MD - [phone] When: Call to make an appointment for suture removal and follow up in 3 weeks.
[2019-07-28] MEDS: Bupivacaine Mpf 0.5% 30 ML VIAL (10:43)
[2019-07-28] MEDS: Heparin Injection (Vial) 5,000 UNIT/ML VIAL 5000 UNIT (11:25)
[2019-07-28 11:56] VITALS: BP 145/86; BP 164/87; PULSE 66; RESP 16; TEMP 37.3; O2SAT 96
[2019-07-28 12:00] VITALS: BP 141/81; BP 164/87; PULSE 66; RESP 17; O2SAT 97
[2019-07-28 12:05] VITALS: BP 142/84; BP 164/87; PULSE 64; RESP 16; O2SAT 98
--- NOTE | 2019-07-28 12:05 | OP.PCM_ITS ---
Problem List (1) CKD (chronic kidney disease) stage 4, GFR 15-29 ml/min Status: Chronic Report of Operation Date of Procedure: 07/28/19 Pre-Operative Diagnosis: Stage IV chronic renal insufficiency in need of arteriovenous hemodialysis access Post-Operative Diagnosis: Same Surgery/Procedure Performed:: Left forearm radial to cephalic arteriovenous hemodialysis fistula creation Description of Surgical Findings:: Timeout and informed consent was obtained. 58-year-old gentleman was taken to the operating room and placed supine on the table. He underwent monitored anesthesia care. Clean procedure. The left forearm was sterilely prepped and draped. 1% lidocaine mixed 50-50 with 0.5% Marcaine was used as a local anesthetic. A total 10 cc was used. Ultrasound had been performed to map the location of the vein. A slightly oblique transverse incision was created. Sharp and blunt dissection was used to identify the cephalic vein and it was mobilized. Sharp and blunt dissection was used to identify the radial artery and it was mobilized. The patient received 10,000 units of heparin. Hemo-clip was placed distally the cephalic vein to secure it was transected it was spatul ated. Peripheral vascular clamps were placed on the slightly calcific radial artery. An 11 blade was used to make an arteriotomy which was extended with Covarrubias scissors. A end-to-side vein to arterial anastomosis was created with a running 7-0 Prolene. Prior to completion there was good arterial inflow venous outflow. The anastomosis was completed. There was good flow. I did slightly clean the vein of adherent fibrinous material. The vein appeared to be a having a good positional lie. There was some backbleeding from the distal cephalic vein which I secured with several interrupted 3-0 Vicryl sutures. The deep tissue was approximated with several interrupted 3-0 Vicryl subdermal stitches. The skin edges were approximated running septic or 4-0 Monocryl. Steri-Strips Telfa 4 x 4 Ike wrap and Jw wrap applied. Sponge and instrument and needle counts were reported to the surgeon to be correct. Blood loss was minimal. Specimens none. Drains none. Blood loss minimal. The patient was taken to the recovery area in satisfactory addition without apparent complication. There was a good pulse and thrill within the fistula at the completion. Shamir Tsai M.D., F.A.C.S. Type of Anesthesia:: Local MAC Anesthesiologist: Quinn Paredes
[2019-07-28 12:12] VITALS: BP 151/82; BP 164/87; PULSE 62; RESP 17; TEMP 37.2; O2SAT 99
[2019-07-28 13:53] VITALS: BP 164/87; BP 168/84; PULSE 65; RESP 16; TEMP 36.7; O2SAT 99
== END 2019-07-28 14:31 | disposition home or self-care (01) ==
LOC: SDC 08:33 → AC 08:34
PROVIDERS: PCP Student in an Organized Health Care Education/Training Program; Referring Provider Surgery; Visit Provider Surgery
PROC: (CPT 36821; principal; 2019-07-28 09:45)
DX: I12.9 Hypertensive chronic kidney disease with stage 1 through stage 4 chronic kidney disease, or unspecified chronic kidney disease (principal); N18.4 Chronic kidney disease, stage 4 (severe); E11.22 Type 2 diabetes mellitus with diabetic chronic kidney disease; F17.210 Nicotine dependence, cigarettes, uncomplicated; Z79.02 Long term (current) use of antithrombotics/antiplatelets; Z79.4 Long term (current) use of insulin; Z79.82 Long term (current) use of aspirin; E78.5 Hyperlipidemia, unspecified; I25.10 Atherosclerotic heart disease of native coronary artery without angina pectoris
CPT/HCPCS: 36821; 36415; 80048; 82962; 85027; 93005

== ENCOUNTER → 2019-09-22 08:10 | Outpatient (CLI) | payer OTHER, SELFPAY ==
[2019-08-11 16:49] VITALS: BMI 34.7
[2019-09-22 08:28] LABS: Hematocrit 38.8 % (40-54); Hemoglobin 12.9 g/dL (13.0-16.5); Mean Corp Hgb Conc 33.2 g/dL (32-36); Mean Corpuscular Hgb 30.2 pg (27.0-32.0); Mean Corpuscular Volume 90.9 fL (80-94); Mean Platelet Vol. 9.5 fl (6.2-12.0); Platelet Count 222 K/mm3 (150-450); RBC Distribution Width CV 14.1 % (11.6-14.6); Red Blood Count 4.27 M/mm3 (4.6-6.2); White Blood Count 11.5 K/mm3 (4.4-11.0)
[2019-09-22 08:54] LABS: Albumin, Serum 2.9 g/dL (3.2-5.0); BUN 76 mg/dL (7-18); BUN/Creat Ratio 10.7 RATIO (10-20); Calcium,Total 8.9 mg/dL (8.5-10.1); Chloride 107 mmol/L (98-107); Creatinine, Serum 7.08 mg/dL (0.70-1.30); EST Glomerular Filtration Rate 9 mL/min (>60); Est Glom Filt Rate - Afr Amer 10 mL/min (>60); Ferritin 156 ng/mL (26-388); Glucose 104 mg/dL (74-106); Iron 63 ug/dL (65-175); Iron Binding Capacity,Total 224 ug/dL (250-450); Phosphorus 7.2 mg/dL (2.5-4.9); Potassium 4.5 mmol/L (3.5-5.1); Sodium Level 139 mmol/L (136-145)
[2019-09-22 09:15] LABS: PTHIN 224.3 pg/mL (18.4-80.1)
== END ==
PROVIDERS: PCP Student in an Organized Health Care Education/Training Program; Referring Provider Internal Medicine Nephrology; Visit Provider Internal Medicine Nephrology
DX: N18.4 Chronic kidney disease, stage 4 (severe) (principal); D63.8 Anemia in other chronic diseases classified elsewhere; N25.81 Secondary hyperparathyroidism of renal origin
CPT/HCPCS: 36415; 80069; 82728; 83540; 83550; 83970; 85027

== ENCOUNTER → 2019-10-16 09:54 | Outpatient (CLI) | payer OTHER, SELFPAY ==
[2019-08-11 16:49] VITALS: BMI 34.7
[2019-10-16 08:03] VITALS: BMI 36.1
[2019-10-16 11:09] LABS: Albumin, Serum 2.9 g/dL (3.2-5.0); BUN 69 mg/dL (7-18); BUN/Creat Ratio 9.7 RATIO (10-20); Calcium,Total 8.6 mg/dL (8.5-10.1); Chloride 110 mmol/L (98-107); Creatinine, Serum 7.13 mg/dL (0.70-1.30); EST Glomerular Filtration Rate 9 mL/min (>60); Est Glom Filt Rate - Afr Amer 10 mL/min (>60); Glucose 110 mg/dL (74-106); Sodium Level 139 mmol/L (136-145)
[2019-10-16 11:14] LABS: PTHIN 204.1 pg/mL (18.4-80.1)
[2019-10-16 11:24] LABS: Vitamin D,25 Hydroxy 27.6 ng/mL
== END ==
PROVIDERS: PCP Student in an Organized Health Care Education/Training Program; Referring Provider Internal Medicine Nephrology; Visit Provider Internal Medicine Nephrology
DX: N18.5 Chronic kidney disease, stage 5 (principal); N25.81 Secondary hyperparathyroidism of renal origin
CPT/HCPCS: 36415; 80069; 82306; 83970

== ENCOUNTER 2019-10-27 09:16 | Day surgery (SDC) | payer OTHER, SELFPAY ==
--- NOTE | 2019-10-07 04:41 | HP_ITS ---
HPI HPI History of Present Illness Surgical H&P: Yes Details: Mr. Nickerson is a very pleasant 59-year-old gentleman with a history of hypertension, diabetes, chronic kidney disease stage IV, tobacco abuse, hyperlipidemia, coronary disease status post angioplasty and stenting in the past. Patient was referred for medical management. He was recently in the emergency room on 07/03/2019 with cough and was discharged on MDI. Patient was supposed to come visit us earlier in the year however due to the COVID-19 pandemic he was unable to do so. He is being worked up for a renal transplant. Patient initially underwent angioplasty and stenting of his distal LAD in 2008. His subsequent cardiac catheterization done at the [facility] in 2011 demonstrated in-stent restenosis and he underwent repeat drug- eluting stenting to the distal LAD. Patient went previous echocardiogram on 02/15/2016 showed an EF of 70%, normal RV size and function trivial to 1+ MR, peak LV outflow gradient of 18 mmHg. Patient cath at an outside hospital 04/21/2011 which showed 20% RCA proximally, nonobstructive left circumflex, nonobstructive proximal LAD, with distal 90% LAD stenosis of the previously placed stent. He underwent a successful drug-eluting stent to the distal LAD at that time. His most recent nuclear stress test took place the [facility] on 04/22/2019 which was negative for inducible ischemia. As part of his work-up for his renal transplant he underwent a diagnostic coronary angiogram on 09/18/2019 at the [facility] which showed normal left main, diffuse mild LAD disease, patent stents of his distal LAD, minor luminal irregularities of his circumflex, and mild diffuse disease of his RCA. Patient is here to establish cardiac care. In addition the patient had a CVA in 2011 with no residual deficits and is on lifelong Plavix. Patient quit smoking around July 2019, after about a [id number] smoking history. In addition the patient has signs and symptoms of obstructive sleep apnea including daytime somnolence, excessive snoring, and hypertension that is not well controlled. He has never been tested for sleep apnea. Cardiac standpoint he denies any chest pain, angina, shortness of breath or dyspnea on exertion. Blood pressure today is 164/78, pulse is 72 and regular. Physical exam shows clear lungs bilaterally, regular rate and rhythm, normal S1/S2, no S3 or S4. He has 1+ bilateral lower extremity edema. EKG dated 06/05/2019 shows normal sinus rhythm, left anterior hemiblock, incomplete right bundle branch block, no previous myocardial infarction. EKG dated 09/16/2019 showed normal sinus rhythm, left anterior hemiblock, incomplete right bundle branch block. Lipids dated 01/08/2016 show an LDL of 29 and HDL 33. Repeat lipids are pending. Intake Vital Signs 10/07/19 Height 5 ft 10 in 10/07/19 Weight: 254 lb 10/07/19 BMI 36.4 10/07/19 BP 164/78 H 10/07/19 Blood Pressure Location Rt brachial 10/07/19 Position Sitting 10/07/19 Respiration 16 10/07/19 Pulse 72 10/07/19 Pulse Source Auscultation 10/07/19 BMI 34.7 Intake Visit Reasons: PREV. 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 [employer] Required: No Accompanied by: None Is patient in pain?: No Allergies No Known Allergies Allergy (Verified 10/07/19 15:47) Medications Clopidogrel Bisulfate [Plavix] 75 mg PO DAILY 01/26/13 [History Confirmed 10/07/19] FreeStyle Maikol 14 Day Sensor See Dose Instructions .ROUTE .MEDSUPPLY #1 ea NS 03/20/18 [Rx Confirmed 10/07/19] insulin lispro 100 unit/mL subcutaneous pen See Rx Instructions SC TID #36 ml 06/29/18 [Rx Confirmed 10/07/19] aspirin 325 mg tablet 325 mg PO DAILY 06/16/19 [History Confirmed 10/07/19] atorvastatin 40 mg tablet 40 mg PO QHS 06/16/19 [History Confirmed 10/07/19] bupropion HCl 150 mg tablet,12 hr sustained-release 150 mg PO DAILY 06/16/19 [History Confirmed 10/07/19] calcitriol 0.5 mcg capsule 0.5 mcg PO DAILY 06/16/19 [History Confirmed 10/07/19] metoprolol tartrate 100 mg tablet 100 mg PO DAILY 06/16/19 [History Confirmed 10/07/19] Albuterol IH (ProAir) [Proair Hfa] 1 - 2 puff INHALATION Q6H PRN PRN 07/24/19 [History Confirmed 10/07/19] Insulin Detemir [Levemir FlexPen] 36 units SUBCUT QHS 07/24/19 [History Confirmed 10/07/19] isosorbide mononitrate 30 mg tablet,extended release 24 hr 30 mg PO DAILY 10/07/19 [History Confirmed 10/07/19] [facility] Medical History (Updated 10/07/19 @ 16:00 by Nalini Russell) Essential hypertension (Chronic) Diabetic polyneuropathy associated with type 1 diabetes mellitus (Chronic) CKD (chronic kidney disease) stage 4, GFR 15-29 ml/min (Chronic) Diabetes type 1, uncontrolled (Chronic) Tobacco abuse (Acute) Hyperlipidemia (Chronic) Heart disease (Chronic) Kidney disease (Chronic) Stroke (Chronic) Type 1 diabetes (Chronic) Cataracts, bilateral (Resolved) Pancreatitis (Resolved) DM2 (diabetes mellitus, type 2) (Inactive) Surgical History (Updated 10/07/19 @ 14:39 by Nalini Russell) History of coronary artery stent placement (Chronic) Arteriovenous fistula for hemodialysis in place, primary (Chronic) H/O cardiac catheterization (Resolved) History of bilateral cataract extraction (Resolved) Family History (Updated 10/07/19 @ 14:25 by Nalini Russell) Mother Diabetes Thyroid disorder Hypertension Hyperlipidemia Social History (Updated 10/07/19 @ 16:[address] Dashawn Davis MD) Smoking Status: Former smoker how long ago did patient quit smokin months alcohol intake: current alcohol intake frequency: holidays/special occasions only substance use type: does not use caffeine: Yes Type: coffee Number of servings: 2 ROS Const Const: Positive for fatigue and weakness; negative for headache(s), frequent falls, difficulty sleeping or excessive sweating Eyes Eyes: Negative for loss of peripheral vision, transient loss of vision, blurry vision, double vision or tunnel vision ENT ENT: Negative for headache(s), dizziness, Nosebleed/epistaxis or balance problems Cardio Chest Pain: No Palpitations: No Edema: Bilateral Muscle aches with walking: None Resp Respiratory: Positive for SOB with activity; negative for SOB at rest, SOB orthopnea\SOB lying down, Cough or paroxysmal nocturnal dyspnea GI GI: Negative nausea, vomiting, heartburn or black,tarry stools : Negative for hematuria Musc Musc: Negative for muscle aches/ myalgia, muscle weakness, joint pain or balance problems Skin Skin: Negative non-healing lesions, rash or unusual bruising Neuro Neuro: Positive for weakness; negative for dizziness, lightheadedness, near syncope, syncope, frequent falls, headache(s), blurry vision, double vision or lack of coordination Amor Hematologic/Lymphatic: Negative for easy bleeding or easy bruising Endo Endo: Positive for fatigue; negative for excessive sweating or increased thirst/drinking Psych Psych: Negative for anxiety or depression Allergy Allergy/Immunology: Negative for hives, Negative for rash Cardiology Exam Const Appearance: cooperative, healthy appearing and no acute distress Nutritional Appearance: well nourished Orientation: alert, oriented x3 and oriented to person Head Head: normal to inspection, normocephalic and atraumatic Nose: external nose normal Face and Sinus: face symmetric Mouth: oral mucosae normal Eyes General: appearance normal, both eyes and all related structures Eyelids: eyelids normal Conjunctivae: conjunctivae normal Pupils: PERRL and normal by confrontation EOM: EOM intact bilaterally Neck Neck: normal visual inspection and full ROM Carotids: normal carotid upstroke Chest Chest inspection: normal inspection of the chest Auscultation: Bilateral: Clear to Auscultation Cardio Palpation: normal PMI Rate: regular rate Rhythm: regular rhythm Heart sounds: S1 normal and S2 normal GI GI: normal to inspection, no hepatosplenomegaly and bowel sounds present Neuro General: alert, awake, oriented x3, CN's II-XI intact bilaterally and moves all extremities Skin Skin: no rashes or lesions noted Extremities Pulses: Normal: Right Femoral Pulse, Left Femoral Pulse, Right Dorsalis Pedis Pulse, Left Dorsalis Pedis Pulse, Right Posterior Tibial Pulse, Left Posterior Tibial Pulse, Right Radial Pulse, Left Radial Pulse Lower Extremity Edema: None: Bilateral Psych Psychological: normal affect Assessment & Plan 1. History of coronary artery stent placement Z95.5 2.5 30 mm [place] Rx DENISHA to dLAD 04/21/11;Successful PTCA with cutting balloon to in-stent restenosis dLAD 09/18/08; 3.0 x 33 mm Cypher Sirolimus- eluding stent, 3.0 x 8 mm Cypher Sirolimus-eluding stent to mLAD, 2.5 x 28 mm Cypher Sirolimus-eluding stent to dLAD 10/31/05 Plan 1. Coronary artery disease: The patient's most recent catheterization at the [facility] in September 2019 showed nonobstructive coronary disease and widely patent stents to his distal LAD. His LV function which shown to be intact by echocardiogram. The patient is at low risk for noncardiac renal transplant surgery and may proceed once he gets on the list. In the meantime we will continue his aspirin, Plavix, metoprolol. 2. Essential hypertension I10 Plan 2. Hypertension: Patient has signs and symptoms of obstructive sleep apnea which may be contributing to his hypertension, and I recommended that we proceed with a sleep study. In addition we will discontinue his amlodipine given his lower extremity edema, and switch it for Imdur 30 mg p.o. daily and titrate up from there. He will return in 2 weeks time for a blood pressure check. Continue metoprolol. He is not a candidate for TERESITA inhibitor's or ARB's given his chronic renal insufficiency, nor is he a good candidate for diuretics and in fact had his diuretics discontinued by his renal physician Orders Orders: Polysomnography Today 3. Hyperlipidemia E78.5 Plan 3. Hyperlipidemia: Given the patient's risk factors he requires aggressive LDL reduction. He is currently on Lipitor. Repeat lipids are pending. 4. Return office in 6 months. This note was generated using a voice recognition system and there may be incorrect words, spelling or punctuation that were not noted when reviewing the office note prior to saving.. Plan Detail Other Orders Orders: Polysomnography Today R40.0 Other Medications New: isosorbide mononitrate ER 30 mg PO DAILY Discontinued: amlodipine Discontinued Reason: Pt no longer taking 5 mg PO DAILY Follow Up +6M (Davis) +2 weeks (BP CHECK) Coding Level of Care Code Off vis,new,level 4 Diagnoses History of coronary artery stent placement Z95.5 Essential hypertension I10 Hyperlipidemia E78.5 ??Hyperlipidemia type: unspecified Coding Level of Care Code Off vis,new,level 4 Diagnoses History of coronary artery stent placement Z95.5 Essential hypertension I10 Hyperlipidemia E78.5 ??Hyperlipidemia type: unspecified Supplemental Info Supplemental Information Labs LDL Cholesterol 29 mg/dL (0-130) 01/08/16 HDL Cholesterol 33 mg/dL (40-) L 01/08/16 Triglycerides 103 mg/dL (-199) 01/08/16 VLDL Cholesterol 21 mg/dL (5-40) 01/08/16 Diagnostics Electrocardiogram 07/25/19 Chest X-Ray 04/02/20 07/07/20 1641 <Electronically signed by Dashawn Davis MD> Date _ Dashawn Davis MD
[2019-10-16 08:03] VITALS: BMI 36.1
[2019-10-16 10:41] LABS: Absolute Lymphocyte Count 2.35 X10^3/uL (0.83-4.51); Absolute Neutrophil Count 7.4 X10^3/uL (2.0-7.7); Basophil# 0.11 X10^3/uL; Basophil% 0.9 % (0-1); Eosinophil# 0.58 X10^3/uL; Hematocrit 36.9 % (40-54); Hemoglobin 12.2 g/dL (13.0-16.5); Lymphocyte # 2.35 X10^3/ul (4.0); Lymphocyte % 20.3 % (19-41); Mean Corp Hgb Conc 33.1 g/dL (32-36); Mean Corpuscular Volume 90.7 fL (80-94); Monocyte# 1.08 X10^3/uL; Monocyte% 9.3 % (0-10); NRBC Flagged by Analyzer 0 % (0-5); Neutrophil # 7.42 X10^3/uL (2.7-7.7); Neutrophil % 64.1 % (47-70); Platelet Count 208 K/mm3 (150-450); RBC Distribution Width CV 13.7 % (11.6-14.6); RBC Distribution Width SD 44.9 fl (35.1-43.9); Red Blood Count 4.07 M/mm3 (4.6-6.2); White Blood Count 11.6 K/mm3 (4.4-11.0)
[2019-10-16 11:10] LABS: Anion Gap 8 (5-15); BUN 68 mg/dL (7-18); BUN/Creat Ratio 9.5 RATIO (10-20); Calcium,Total 8.8 mg/dL (8.5-10.1); Chloride 110 mmol/L (98-107); Creatinine, Serum 7.17 mg/dL (0.70-1.30); EST Glomerular Filtration Rate 8 mL/min (>60); Est Glom Filt Rate - Afr Amer 10 mL/min (>60); Glucose 109 mg/dL (74-106); Sodium Level 140 mmol/L (136-145)
[2019-10-24 08:48] VITALS: BMI 36.1
--- NOTE | 2019-10-27 10:20 | PCM.HP.BLA ---
Problem List (1) Problem with dialysis access Status: Acute Qualifiers: Encounter type: initial encounter History and Physical Date of Admission: 10/27/19 Intake Visit Reasons: 9 WK F/U FISTULA Chief Complaint: post fistula Allergies No Known Allergies Allergy (Verified 10/16/19 08:17) Medications Clopidogrel Bisulfate [Plavix] 75 mg PO DAILY 01/26/13 [History Confirmed 10/16/19] FreeStyle Maikol 14 Day Sensor See Dose Instructions .ROUTE .MEDSUPPLY #1 ea NS 03/20/18 [Rx Confirmed 10/16/19] insulin lispro 100 unit/mL subcutaneous pen See Rx Instructions SC TID #36 ml 06/29/18 [Rx Confirmed 10/16/19] aspirin 325 mg tablet 325 mg PO DAILY 06/16/19 [History Confirmed 10/16/19] atorvastatin 40 mg tablet 40 mg PO QHS 06/16/19 [History Confirmed 10/16/19] bupropion HCl 150 mg tablet,12 hr sustained-release 150 mg PO DAILY 06/16/19 [History Confirmed 10/16/19] calcitriol 0.5 mcg capsule 0.5 mcg PO DAILY 06/16/19 [History Confirmed 10/16/19] metoprolol tartrate 100 mg tablet 100 mg PO DAILY 06/16/19 [History Confirmed 10/16/19] Albuterol IH (ProAir) [Proair Hfa] 1 - 2 puff INHALATION Q6H PRN PRN 07/24/19 [History Confirmed 10/16/19] Insulin Detemir [Levemir FlexPen] 36 units SUBCUT QHS 07/24/19 [History Confirmed 10/16/19] isosorbide mononitrate 30 mg tablet,extended release 24 hr 30 mg PO DAILY #14 tab 10/07/19 [Rx Confirmed 10/16/19] PFSH Medical History (Updated 10/16/19 @ 09:[address] Shamir Tsai MD) Problem with dialysis access (Acute) Essential hypertension (Chronic) Diabetic polyneuropathy associated with type 1 diabetes mellitus (Chronic) CKD (chronic kidney disease) stage 4, GFR 15-29 ml/min (Chronic) Diabetes type 1, uncontrolled (Chronic) Tobacco abuse (Acute) Hyperlipidemia (Chronic) Heart disease (Chronic) Kidney disease (Chronic) Stroke (Chronic) Type 1 diabetes (Chronic) Cataracts, bilateral (Resolved) Pancreatitis (Resolved) DM2 (diabetes mellitus, type 2) (Inactive) Surgical History (Updated 10/07/19 @ 14:39 by Nalini Russell) History of coronary artery stent placement (Chronic) Arteriovenous fistula for hemodialysis in place, primary (Chronic) H/O cardiac catheterization (Resolved) History of bilateral cataract extraction (Resolved) Family History Mother Diabetes Thyroid disorder Hypertension Hyperlipidemia Social History (Updated 10/16/19 @ 09:[address] Shamir Tsai MD) Smoking Status: Former smoker how long ago did patient quit smokin months alcohol intake: current alcohol intake frequency: holidays/special occasions only substance use type: does not use caffeine: Yes Type: coffee Number of servings: 2 HPI HPI HPI: АНДРЕЙ BEAVER, is a 59 M who presents to the office today for surgical follow-up of a left forearm radiocephalic AV fistula. He is not yet on hemodialysis but he is very close to needing to start. Apparently he had a cardiac catheterization done in evaluation for possible transplant. This clearly caused an acute deterioration of his renal function. On July 28, 2019 I created this left forearm AV fistula. July 28, 2019 [facility] Medical Records Department [address] [place] [address] Operative Report 07/28/19 1205 MR#: [id number]:[id number] Name:АНДРЕЙ BEAVERRep #:[id number] : 1960 58From: Shamir Tsai MD PCP:Handy Butler DO Status:[facility] [place] [facility] [place] List (1) CKD (chronic kidney disease) stage 4, GFR 15-29 ml/min Status: Chronic Report of Operation Date of Procedure: 07/28/19 Pre-Operative Diagnosis: Stage IV chronic renal insufficiency in need of arteriovenous hemodialysis access Post-Operative Diagnosis: Same Surgery/Procedure Performed:: Left forearm radial to cephalic arteriovenous hemodialysis fistula creation Description of Surgical Findings:: Timeout and informed consent was obtained. 58-year-old gentleman was taken to the operating room and placed supine on the table. He underwent monitored anesthesia care. Clean procedure. The left forearm was sterilely prepped and draped. 1% lidocaine mixed 50-50 with 0.5% Marcaine was used as a local anesthetic. A total 10 cc was used. Ultrasound had been performed to map the location of the vein. A slightly oblique transverse incision was created. Sharp and blunt dissection was used to identify the cephalic vein and it was mobilized. Sharp and blunt dissection was used to identify the radial artery and it was mobilized. The patient received 10,000 units of heparin. Hemo-clip was placed distally the cephalic vein to secure it was transected it was spatulated. Peripheral vascular clamps were placed on the slightly calcific radial artery. An 11 blade was used to make an arteriotomy which was extended with Covarrubias scissors. A end-to-side vein to arterial anastomosis was created with a running 7-0 Prolene. Prior to completion there was good arterial inflow venous outflow. The anastomosis was completed. There was good flow. I did slightly clean the vein of adherent fibrinous material. The vein appeared to be a having a good positional lie. There was some backbleeding from the distal cephalic vein which I secured with several interrupted 3-0 Vicryl sutures. The deep tissue was approximated with several interrupted 3-0 Vicryl subdermal stitches. The skin edges were approximated running septic or 4-0 Monocryl. Steri-Strips Telfa 4 x 4 Ike wrap and Jw wrap applied. Sponge and instrument and needle counts were reported to the surgeon to be correct. Blood loss was minimal. Specimens none. Drains none. Blood loss minimal. The patient was taken to the recovery area in satisfactory addition without apparent complication. There was a good pulse and thrill within the fistula at the completion. Shamir Tsai M.D., F.A.C.S. Type of Anesthesia:: Local MAC Anesthesiologist: Quinn Paredes 07/30/19 0721<Electronically signed by Shamir Tsai MD> Date Shamir Tsai MD CC: Handy Butler DO; Shamir Tsai MD ~ HPI HPI HPI: АНДРЕЙ BEAVER, is a 59 M who presents to the office today for Exam Const General: cooperative Nutritional Appearance: obese Orientation: alert, awake HENMT Head: normal to inspection Resp Effort & Inspection: normal respiratory effort Auscultation: clear to auscultation bilaterally Cardio Rate: regular rate Rhythm: regular rhythm GI Palpation: soft Extrem Other: Mild bilateral upper extremity nonpitting edema. Moderate bilateral lower extremity edema. Well-healed incision left wrist with a pulse thrill and bruit noted within the left forearm radial cephalic arteriovenous hemodialysis fistula. The pulse and thrill somewhat weaker than anticipated. Ultrasound inspection demonstrates that the vein appears to be of reasonable caliber throughout however there is heavy calcification of the radial artery and calcification at the anastomosis. I suspect clinically significant stenosis present. Assessment & Plan Problems 1. Problem with dialysis access, initial encounter T82.898A Plan Problem with dialysis access with failure to mature left forearm radiocephalic redo venous hemodialysis fistula with likely arterial inflow issues and possible anastomotic issues. I recommend a left upper extremity carbon dioxide fistulogram as he is not yet on hemodialysis. I would anticipate retrograde access to the forearm to inspect the anastomotic area. He is aware of technique, benefit, risk and alternatives. He is aware of the Covid-19 pandemic. He is aware that his dialysis access and need for that is important and outweighs the low risk of intervention. He is aware that the [facility] is currently reporting a low local incidence We will schedule and expedite. I anticipate using carbon dioxide. Cc: Dr. Rosario Cardenas and Dr. Handy Tsai M.D., F.A.C.S. Coding Level of Care Code Global Post Op Diagnoses Problem with dialysis access, initial encounter T82.374F ??Encounter type: initial encounter I have re-examined the patient. There are no clinical changes since date of exam. Procedure Criteria Procedure Type: Elective COVID Risk Discussion: The surgeon/proceduralist and patient have discussed in detail the risk of exposure to and/or potential harm posed by the COVID-19 virus with having a surgery/procedure at this time versus the risk of delaying the surgery/procedure. It is not possible to know either the risk of delaying the surgery or procedure or chance of getting an infection with perfect accuracy, but a joint decision was made between the patient and the surgeon/proceduralist to proceed at this time with the scheduled surgery/procedure as indicated on the consent form.
--- NOTE | 2019-10-27 12:00 | PCM.OPRPT ---
Problem List (1) Problem with dialysis access Status: Acute Qualifiers: Encounter type: initial encounter Report of Operation Date of Procedure: 10/27/19 Pre-Operative Diagnosis: Failure to mature left forearm radiocephalic arteriovenous hemodialysis fistula Post-Operative Diagnosis: Failure to mature left forearm radiocephalic arteriovenous hemodialysis fistula with proximal venous stenosis and arterial anastomotic stenosis. Surgery/Procedure Performed:: Left upper extremity fistulogram with 5 x 80 mm ever cross balloon maturation angioplasty Description of Surgical Findings:: Timeout and informed consent was obtained. 59-year-old gentleman was taken to the special procedures lab placed on the table. The left upper extremity was sterilely prepped and draped. 50 mcg of fentanyl and 1 mg Versed were given as intravenous sedation. Under ultrasound guidance the cephalic vein in the proximal third of the left forearm was identified. 2% lidocaine was instilled under ultrasound guidance. Micropuncture needle was inserted retrograde with flow into the left cephalic vein followed by Seldinger wire advancement. Sheath dilator was placed over the wire. Then an 035 Glidewire and a 4 [place] glide cath was used to gain access to the radial artery proximal to the fistula. Using carbon dioxide a fistulogram was obtained of the left upper extremity forearm upper arm and venous outflow. This demonstrated proximal fistula venous stenosis and arterial anastomotic stenosis. The patient received 5000 units of heparin IV. A 5 x 80 mm ever cross balloon was placed just across the anastomosis and balloon angioplasty was performed of the majority of the forearm component of the venous aspect of the fistula. 3 different insufflations were performed in the proximal portion of the fistula adjacent to the anastomosis. A more proximal angioplasty up to the sheath level was performed as well. Then a 4 [place] angled glide cath was reinserted. I did use a total of 4 cc of contrast to better identify the anatomy at the anastomotic area. The remainder of the entire study was done with carbon dioxide. Dramatic improvement was identified. He tolerated it well. Devices were removed. Sheath was removed and a U suture of 4-0 nylon was used for hemostasis. There was an excellent pulse thrill and bruit at the completion. Blood loss was minimal no apparent complication. Left upper extremity radiocephalic AV fistula demonstrates arterial and proximal venous stenosis adjacent to the anastomosis. The remainder of the venous outflow appears adequate however in the mid forearm there are 2 very large collateral venous side branches standing of the majority of the flow. The left upper arm cephalic and basilic veins demonstrate good outflow and there is good central venous outflow. Subsequent to the 5 x 80 mm balloon angioplasty there is resolution of the anterior anastomotic and proximal venous stenosis Shamir Tsai M.D., F.A.C.S. Type of Anesthesia:: IV Sedation, Local
== END 2019-10-27 13:00 | disposition home or self-care (01) ==
LOC: CLSP 09:17
PROVIDERS: Physician Assistant; PCP Student in an Organized Health Care Education/Training Program; Referring Provider Surgery; Visit Provider Surgery
DX: I12.9 Hypertensive chronic kidney disease with stage 1 through stage 4 chronic kidney disease, or unspecified chronic kidney disease (principal); N18.4 Chronic kidney disease, stage 4 (severe); T82.898A Other specified complication of vascular prosthetic devices, implants and grafts, initial encounter; T82.858A Stenosis of other vascular prosthetic devices, implants and grafts, initial encounter; E78.5 Hyperlipidemia, unspecified; E10.22 Type 1 diabetes mellitus with diabetic chronic kidney disease; I25.10 Atherosclerotic heart disease of native coronary artery without angina pectoris; I45.10 Unspecified right bundle-branch block; E10.42 Type 1 diabetes mellitus with diabetic polyneuropathy; Z79.4 Long term (current) use of insulin; Z79.82 Long term (current) use of aspirin; Z79.02 Long term (current) use of antithrombotics/antiplatelets; Z79.899 Other long term (current) drug therapy; Z86.73 Personal history of transient ischemic attack (TIA), and cerebral infarction without residual deficits; Z87.891 Personal history of nicotine dependence; Z95.5 Presence of coronary angioplasty implant and graft; Z99.2 Dependence on renal dialysis
CPT/HCPCS: 36902; 76937; 80048; 85025; 87635; 99152; 99153; C9803; G2023; Q9967; C1725; C1769; U0003

== ENCOUNTER → 2019-11-24 08:15 | Outpatient (CLI) | payer OTHER, SELFPAY ==
[2019-10-24 08:48] VITALS: BMI 36.1
[2019-11-05 16:16] VITALS: BMI 36.1
[2019-11-24 08:34] LABS: Hematocrit 38.3 % (40-54); Hemoglobin 12.8 g/dL (13.0-16.5); Mean Corp Hgb Conc 33.4 g/dL (32-36); Mean Corpuscular Hgb 30.6 pg (27.0-32.0); Mean Corpuscular Volume 91.6 fL (80-94); Mean Platelet Vol. 9.8 fl (6.2-12.0); Platelet Count 193 K/mm3 (150-450); RBC Distribution Width CV 13.5 % (11.6-14.6); RBC Distribution Width SD 45.1 fl (35.1-43.9); Red Blood Count 4.18 M/mm3 (4.6-6.2); White Blood Count 11.4 K/mm3 (4.4-11.0)
[2019-11-24 09:24] LABS: Albumin, Serum 2.8 g/dL (3.2-5.0); BUN 71 mg/dL (7-18); BUN/Creat Ratio 8.2 RATIO (10-20); Calcium,Total 8.8 mg/dL (8.5-10.1); Chloride 108 mmol/L (98-107); Creatinine, Serum 8.63 mg/dL (0.70-1.30); EST Glomerular Filtration Rate 7 mL/min (>60); Est Glom Filt Rate - Afr Amer 8 mL/min (>60); Glucose 79 mg/dL (74-106); Phosphorus 6.7 mg/dL (2.5-4.9); Potassium 4.6 mmol/L (3.5-5.1); Sodium Level 140 mmol/L (136-145)
[2019-11-24 11:04] LABS: PTHIN 136.5 pg/mL (18.4-80.1)
== END ==
PROVIDERS: PCP Student in an Organized Health Care Education/Training Program; Referring Provider Internal Medicine Nephrology; Visit Provider Internal Medicine Nephrology
DX: N18.5 Chronic kidney disease, stage 5 (principal); N25.81 Secondary hyperparathyroidism of renal origin
CPT/HCPCS: 36415; 80069; 83970; 85027

== ENCOUNTER → 2019-12-03 08:10 | Outpatient (CLI) | payer OTHER, SELFPAY ==
[2019-11-27 08:48] VITALS: BMI 37.3
[2019-12-03 08:38] LABS: Hemoglobin 13.1 g/dL (13.0-16.5); Mean Corp Hgb Conc 33.6 g/dL (32-36); Mean Corpuscular Hgb 30.4 pg (27.0-32.0); Mean Corpuscular Volume 90.5 fL (80-94); Mean Platelet Vol. 9.6 fl (6.2-12.0); Platelet Count 213 K/mm3 (150-450); RBC Distribution Width CV 13.3 % (11.6-14.6); RBC Distribution Width SD 43.9 fl (35.1-43.9); Red Blood Count 4.31 M/mm3 (4.6-6.2); White Blood Count 11.4 K/mm3 (4.4-11.0)
[2019-12-03 08:58] LABS: 24HR. UA Prot. Total Volume 2750 mL
[2019-12-03 08:59] LABS: PTHIN 124.1 pg/mL (18.4-80.1)
[2019-12-03 09:24] LABS: Creat.Clear Total Volume 2750 mL; Creatinine Clearance 10 ml/min (100-200); Creatinine Serum Creat 9.1 mg/dL (0.8-1.3); Creatinine Urine 45.4 mg/dL (NO RANGE EST.); EST Glomerular Filtration Rate 6 mL/min (>60); Est Glom Filt Rate - Afr Amer 8 mL/min (>60)
[2019-12-03 09:25] LABS: BUN 74 mg/dL (7-18); BUN/Creat Ratio 8.1 RATIO (10-20); Calcium,Total 9.3 mg/dL (8.5-10.1); Chloride 110 mmol/L (98-107); EST Glomerular Filtration Rate 6 mL/min (>60); Est Glom Filt Rate - Afr Amer 8 mL/min (>60); Glucose 124 mg/dL (74-106); Hepatitis B Surface Antigen Non-Reactive (Nonreactive); Phosphorus 7.5 mg/dL (2.5-4.9); Potassium 4.5 mmol/L (3.5-5.1); Sodium Level 140 mmol/L (136-145)
[2019-12-03 09:28] LABS: Urine Protein (24 Hour) 308.6 mg/dL (<11.9)
== END ==
PROVIDERS: PCP Student in an Organized Health Care Education/Training Program; Referring Provider Internal Medicine Nephrology; Visit Provider Internal Medicine Nephrology
DX: N18.5 Chronic kidney disease, stage 5 (principal); N25.81 Secondary hyperparathyroidism of renal origin; D50.9 Iron deficiency anemia, unspecified
CPT/HCPCS: 36415; 80069; 81050; 82575; 83970; 84156; 85027; 87340

== ENCOUNTER 2020-01-01 09:48 | Day surgery (SDC) | payer OTHER, SELFPAY ==
[2019-12-31 14:03] VITALS: BMI 37.3
[2020-01-01] VITALS (7 sets, daily range): BP systolic 105–171; BP diastolic 82–100; PULSE 63–67; RESP 16–18; TEMP 36.5–36.9; O2SAT 97–98; BMI 36.5
[2020-01-01 10:27] LABS: Hematocrit 38.9 % (40-54); Hemoglobin 12.9 g/dL (13.0-16.5); Mean Corp Hgb Conc 33.2 g/dL (32-36); Mean Corpuscular Hgb 30.4 pg (27.0-32.0); Mean Corpuscular Volume 91.7 fL (80-94); Mean Platelet Vol. 9.9 fl (6.2-12.0); Platelet Count 207 K/mm3 (150-450); RBC Distribution Width CV 13.3 % (11.6-14.6); RBC Distribution Width SD 44.1 fl (35.1-43.9); Red Blood Count 4.24 M/mm3 (4.6-6.2); White Blood Count 11.1 K/mm3 (4.4-11.0)
[2020-01-01] MEDS: Lactated Ringers 1,000 ML 100 ML IV (10:30)
--- NOTE | 2020-01-01 10:40 | HP.PCM_ITS ---
Problem List (1) Problem with dialysis access Status: Acute Qualifiers: History and Physical Date of Admission: 01/01/20 Intake Visit Reasons: UNABLE TO CANNULATE Chief Complaint: recheck fistula Record Center Specialist Required: No Is patient in pain?: No Allergies No Known Allergies Allergy (Verified 12/31/19 14:03) Medications Clopidogrel Bisulfate [Plavix] 75 mg PO DAILY 01/26/13 [History Confirmed 12/31/19] FreeStyle Maikol 14 Day Sensor See Dose Instructions .ROUTE .MEDSUPPLY #1 ea NS 03/20/18 [Rx Confirmed 12/31/19] insulin lispro 100 unit/mL subcutaneous pen See Rx Instructions SC TID #36 ml 06/29/18 [Rx Confirmed 12/31/19] aspirin 325 mg tablet 325 mg PO DAILY 06/16/19 [History Confirmed 12/31/19] atorvastatin 40 mg tablet 40 mg PO QHS 06/16/19 [History Confirmed 12/31/19] bupropion HCl 150 mg tablet,12 hr sustained-release 150 mg PO DAILY 06/16/19 [History Confirmed 12/31/19] calcitriol 0.5 mcg capsule 0.5 mcg PO DAILY 06/16/19 [History Confirmed 12/31/19] Albuterol IH (ProAir) [Proair Hfa] 1 - 2 puff INHALATION Q6H PRN PRN 07/24/19 [History Confirmed 12/31/19] Insulin Detemir [Levemir FlexPen] 36 units SUBCUT QHS 07/24/19 [History Confirmed 12/31/19] blood sugar diagnostic See Rx Instructions .ROUTE .MEDSUPPLY #150 ea 11/11/19 [Rx Confirmed 12/31/19] BP cuff #1 ea 11/27/19 [Rx Confirmed 12/31/19] carvedilol 12.5 mg tablet 12.5 mg PO BID #60 tab 11/27/19 [Rx Confirmed 12/31/19] isosorbide mononitrate 30 mg tablet,extended release 24 hr 30 mg PO .COMPLEX #90 tab 11/27/19 [Rx Confirmed 12/31/19] PFSH Medical History Problem with dialysis access (Acute) Essential hypertension (Chronic) Diabetic polyneuropathy associated with type 1 diabetes mellitus (Chronic) CKD (chronic kidney disease) stage 4, GFR 15-29 ml/min (Chronic) Diabetes type 1, uncontrolled (Chronic) Tobacco abuse (Acute) Hyperlipidemia (Chronic) Heart disease (Chronic) Kidney disease (Chronic) Stroke (Chronic) Type 1 diabetes (Chronic) Cataracts, bilateral (Resolved) Pancreatitis (Resolved) DM2 (diabetes mellitus, type 2) (Inactive) Surgical History History of coronary artery stent placement (Chronic) Arteriovenous fistula for hemodialysis in place, primary (Chronic) H/O cardiac catheterization (Resolved) History of bilateral cataract extraction (Resolved) Family History Mother Diabetes Thyroid disorder Hypertension Hyperlipidemia Social History (Updated 12/31/19 @ 14:[address] Shamir Tsai MD) Smoking Status: Former smoker how long ago did patient quit smokin months alcohol intake: current alcohol intake frequency: holidays/special occasions only substance use type: does not use caffeine: Yes Type: coffee Number of servings: 2 HPI HPI HPI: АНДРЕЙ BEAVER, is a 59 M who presents to the office today for urgent consultation because of a problem with dialysis access. The patient's had several successful dialysis treatments with his left forearm radiocephalic AV fistula but then the infiltrated. Now it is swollen bruised he has significant extravasation and they have not been able to canalize it. He is not previously had tunneled dialysis catheters. My most recent intervention for him was October 27, 2019 when I did a bam CO2 maturation angioplasty with a 5 x 80 mm ever cross balloon in the proximal portion of the fistula. The fistula was created for him on July 28, 2019 HPI HPI HPI: АНДРЕЙ BEAVER, is a 59 M who presents to the office today for ROS General General: No weight change, appetite, fatigue, colon cancer, breast cancer or weakness HEENT HEENT: Yes eye surgery; no difficulty swallowing, eye injury, swollen glands or hoarseness Endo Endocrine: Yes diabetes mellitus; no thyroid disease, thyroid cancer, Hair loss, heat intolerance or cold intolerance Skin Skin: No rash or changing moles Breast Breast: No left breast lump, right breast lump, nipple discharge, breast pain, abnormal mammogram, abnormal US or breast enlargement Musc Musculoskeletal: No back problems, arthritis, rheumatoid arthritis, gout or joint pain Cardio Cardiovascular: Yes heart disease, high blood pressure, heart attack and heart stent; no murmur, pacemaker, atrial fibrillation, palpitations, shortness of breat with exertion or chest pain Psych Psychiatric: No depression, anxiety or hearing voices Resp Respiratory: No shortness of breath, No sleep apnea, No cough, No COPD, No asthma, No emphysema, No wheezing Gastro Gastrointestinal: No abdominal pain, No nausea or vomiting, No diarrhea, No constipation, No blood in stool, No acid reflux, No hemorrhoids, No ulcers, No gallbladder problem, No black,tarry stools Amor Hematologic: Yes blood thinners, No blood disorders, No bleeding, No anemia, No blood clots Neuro Neurologic: No weakness Exam Const General: cooperative, comfortable, no acute distress Nutritional Appearance: average body habitus Orientation: alert, awake HENLA Head: normal to inspection Chest Breast Palpation: No nipple discharge Resp Effort & Inspection: normal respiratory effort Auscultation: clear to auscultation bilaterally Cardio Rate: regular rate Rhythm: regular rhythm Heart Sounds: no murmurs GI Palpation: soft Skin Other: Significant discoloration and ecchymosis left forearm Extrem Other: Left forearm has a palpable pulse thrill and bruit within the fistula. On my ultrasound inspection appears to be patent. In the mid forearm it is slightly deep. The radial artery is somewhat calcified. He does have side branches noted. Psych Affect: normal affect Assessment & Plan Problems 1. Problem with dialysis access, subsequent encounter T82.589W Plan I believe now that the patient has problems with his left forearm radiocephalic AV fistula secondary to the extravasation and swelling which is complicating repeat access. Unfortunately an emergency fistulogram will not alter that. I recommend to him urgent placement of right internal jugular tunneled dialysis catheters. He is aware of technique, benefit, risk, alternatives. Dr. Rosario Cardenas does suggest that he does need dialysis at earliest convenience. Subsequently I recommend to him that we do attempt a left forearm fistulogram. I would anticipate accessing his fistula closer to the antecubital space retrograde with flow. I would anticipate likely further maturation angioplasty or appropriate treatment is indicated. I have previously had some difficulty with a sidebranch ligation on him. I would be prepared to do a coil ligation of any dominant side branches if indicated at that setting. He has had an opportunity ask and have questions answered. The urgent procedure is the tunnel dialysis catheters. We will see if we can add him onto our OR scheduling tomorrow. Copy: Dr. Rosario Tsai M.D., F.A.C.S. Coding Level of Care Code Off vis,est,level 2 Diagnoses Problem with dialysis access, subsequent encounter T82.898D ??Encounter type: subsequent encounter I have re-examined the patient. There are no clinical changes since date of exam. Procedure Criteria Procedure Type: Elective COVID Risk Discussion: The surgeon/proceduralist and patient have discussed in detail the risk of exposure to and/or potential harm posed by the COVID-19 virus with having a surgery/procedure at this time versus the risk of delaying the surgery/procedure. It is not possible to know either the risk of delaying the surgery or procedure or chance of getting an infection with perfect accuracy, but a joint decision was made between the patient and the surgeon/proceduralist to proceed at this time with the scheduled surgery/procedure as indicated on the consent form.
[2020-01-01 10:55] LABS: Anion Gap 10 (5-15); BUN 68 mg/dL (7-18); BUN/Creat Ratio 7.1 RATIO (10-20); Calcium,Total 9.6 mg/dL (8.5-10.1); Chloride 102 mmol/L (98-107); Creatinine, Serum 9.54 mg/dL (0.70-1.30); EST Glomerular Filtration Rate 6 mL/min (>60); Est Glom Filt Rate - Afr Amer 7 mL/min (>60); Estimated Creatinine Clearance 8.82 ml/min; Glucose 194 mg/dL (74-106); Potassium 4.4 mmol/L (3.5-5.1); Sodium Level 138 mmol/L (136-145)
[2020-01-01] MEDS: Cefazolin 2 GM in 0.9% Normal Saline 100 ML IV (11:20)
--- NOTE | 2020-01-01 11:30 | PCM.DC.GS ---
Discharge Diet: Renal Diet Discharge Activity: May Not Shower Lifting Restrictions: 10 pounds Call your doctor if your incision/area has: Continuous Slow Oozing, Sudden Increased Bleeding, Increased Pain/ Swelling, Increased Redness, Foul Smelling Discharge Call your doctor if you observe: Fever of 101 or Higher Suture Line Care: Avoid Pulling/Pushing, Avoid Pinching/Bending Additional Dressing/Incision Instructions:: Catheter flushing and dressing changes will be performed by the dialysis center Allergies/Adverse Reactions: Allergies No Known Allergies Allergy (Verified 01/01/20 09:57) Medications to take at Discharge Clopidogrel Bisulfate [Plavix] 75 mg PO DAILY 01/26/13 FreeStyle Maikol 14 Day Sensor See Dose Instructions .ROUTE .MEDSUPPLY #1 ea NS 03/20/18 insulin lispro 100 unit/mL subcutaneous pen See Rx Instructions SC TID #36 ml 06/29/18 aspirin 325 mg tablet 325 mg PO DAILY 06/16/19 atorvastatin 40 mg tablet 40 mg PO QHS 06/16/19 bupropion HCl 150 mg tablet,12 hr sustained-release 150 mg PO DAILY 06/16/19 calcitriol 0.5 mcg capsule 0.5 mcg PO DAILY 06/16/19 Albuterol IH (ProAir) [Proair Hfa] 1 - 2 puff INHALATION Q6H PRN PRN 07/24/19 Insulin Detemir [Levemir FlexPen] 36 units SUBCUT QHS 07/24/19 blood sugar diagnostic See Rx Instructions .ROUTE .MEDSUPPLY #150 ea 11/11/19 BP cuff #1 ea 11/27/19 Amlodipine [Norvasc] 5 mg PO DAILY 12/31/19 Hydrocodone Bitart/Apap 5-325 [[place] 5/325] 1 - 2 tablet PO Q4H PRN PRN 2 Days #5 tablet 01/01/20 Isosorbide Mononitrate [Isosorbide Mononitrate ER] 30 mg PO DAILY 01/01/20 Metoprolol Tartrate [Lopressor (beta siddhartha)] 100 mg PO DAILY 01/01/20 The following prescriptions were given: Hydrocodone Bitart/Apap 5-325 [[place] 5/325] 1 - 2 tablet PO Q4H PRN PRN 2 Days #5 tablet PRN Reason: Pain Score 1-01/09 Transmission Status: Sent to [facility] Primary Care Physician: Handy Henderson DO [Primary Care Provider] - Test Results: Test results from this visit will be discussed in further detail at your follow-up appointment, if applicable. Please Follow Up With: Shamir Tsai MD - [phone] When: Call for any concerns
[2020-01-01] MEDS: Bupivacaine Mpf 0.5% 30 ML VIAL (11:50)
[2020-01-01] MEDS: Heparin 10,000 UNITS/10 ML Vial 10000 UNITS (11:51)
--- NOTE | 2020-01-01 11:53 | OP.PCM_ITS ---
Problem List (1) Problem with dialysis access Status: Acute Qualifiers: Report of Operation Date of Procedure: 01/01/20 Pre-Operative Diagnosis: Infiltration left forearm radiocephalic arteriovenous hemodialysis fistula Post-Operative Diagnosis: Same Surgery/Procedure Performed:: Right internal jugular 19 cm palindrome pre-curved tunneled dialysis catheter placement. Reference #[id number], lot #[id number], expiry date June 14, 2024 Description of Surgical Findings:: Timeout and informed consent was obtained. 59-year-old gent was taken to the operating room placed on the table. Underwent monitored anesthesia care. Ancef 2 g given intravenously. The right neck and chest were sterilely prepped and draped. 1% lidocaine mixed 50-50 with 0.5% Marcaine was used as a local anesthetic. A total of 15 cc was used. Under ultrasound guidance local was instilled overlying the right internal jugular vein. Then under ultrasound guidance micropuncture needle was inserted in the right internal jugular vein followed by Seldinger wire. Local was instilled down upon the chest wall. An exit site was selected. A 19 cm pre-curved palindrome catheter was tunneled from the chest to the neck site. Micropuncture sheath was placed over the wire. 035 J-wire was inserted. Fluoroscopy demonstrated good position. Serial dilatation was performed. The sheath dilator was inserted. The wire dilator removed. The catheter advanced with the sheath. The sheath was split. The catheter was positioned to have a nice curvilinear position in the neck. It asp irated easily. It was flushed with saline and then 2.5 cc of heparinized saline per channel. The neck site was closed interrupted 5-0 Vicryl subdermal stitch. The catheter was secured to skin with interrupted 3-0 nylon. Silver impregnated dressing was placed on the exit site and a Telfa OpSite on the neck site. Sponge and instrument and needle counts were reported to the surgeon to be correct. Specimens none. Drains none. Blood loss minimal. The patient was taken to the recovery area in satisfactory addition without apparent complication. Portable chest x-ray is pending. Shamir Tsai M.D., F.A.C.S. Type of Anesthesia:: Local MAC
--- NOTE | 2020-01-01 12:06 | RAD_ITS ---
STUDY: X-RAY CHEST REASON FOR EXAM: Male, 59 years old. POST DIALYSIS CATH PLACEMENT TECHNIQUE: Single AP portable view of the chest. COMPARISON: Comparison is made with prior study 07/03/2019. FINDINGS: A right-sided temporary dialysis catheter has been placed with tip in the proximal portion of the superior vena cava. Gynecomastia. Mild increased markings in the right middle lobe suggestive of scarring. This is unchanged. There is no demonstrated pleural abnormality. Normal size heart. Normal mediastinum and violeta. Normal visualized pulmonary arteries. Normal visualized aortic arch and descending thoracic aorta. There are degenerative changes of the visualized thoracic spine. Normal visualized ribs, clavicles, and shoulders. There is no demonstrated abnormality of the visualized soft tissue structures of the upper abdomen. RAD/CXR for Line Placement IMPRESSION: The tip of the right dialysis catheter is in the proximal portion of the superior vena cava. Gynecomastia. Electronically Signed: Gumaro Barbosa, at 12:22 EDT , Service support ,
[2020-01-01 12:45] LABS: Bedside Glucose 214 mg/dL (70-110)
== END 2020-01-01 13:20 | disposition home or self-care (01) ==
LOC: SDC 09:48 → AC 09:49
PROVIDERS: PCP Student in an Organized Health Care Education/Training Program; Referring Provider Surgery; Visit Provider Surgery
PROC: (CPT 36558; principal; 2020-01-01 11:45)
DX: T82.898A Other specified complication of vascular prosthetic devices, implants and grafts, initial encounter (principal); I13.10 Hypertensive heart and chronic kidney disease without heart failure, with stage 1 through stage 4 chronic kidney disease, or unspecified chronic kidney disease; E10.22 Type 1 diabetes mellitus with diabetic chronic kidney disease; N18.4 Chronic kidney disease, stage 4 (severe); Z99.2 Dependence on renal dialysis; E78.5 Hyperlipidemia, unspecified; E10.42 Type 1 diabetes mellitus with diabetic polyneuropathy; I25.2 Old myocardial infarction; Z86.73 Personal history of transient ischemic attack (TIA), and cerebral infarction without residual deficits; Z79.4 Long term (current) use of insulin; Z79.02 Long term (current) use of antithrombotics/antiplatelets; Z79.82 Long term (current) use of aspirin; Z79.899 Other long term (current) drug therapy; Z87.891 Personal history of nicotine dependence; Z95.5 Presence of coronary angioplasty implant and graft
CPT/HCPCS: 00532; 36558; 36415; 71045; 76000; 80048; 82962; 85027; J7030; J7120; C1750

== ENCOUNTER 2020-01-07 08:33 | Day surgery (SDC) | payer OTHER, SELFPAY ==
[2020-01-01 10:19] VITALS: BMI 36.5
[2020-01-07 08:53] VITALS: BMI 36.3
--- NOTE | 2020-01-07 08:55 | PCM.HP.BLA ---
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 Is patient in pain?: No Allergies No Known Allergies Allergy (Verified 12/31/19 14:03) Medications Clopidogrel Bisulfate [Plavix] 75 mg PO DAILY 01/26/13 [History Confirmed 12/31/19] FreeStyle Maikol 14 Day Sensor See Dose Instructions .ROUTE .MEDSUPPLY #1 ea NS 03/20/18 [Rx Confirmed 12/31/19] insulin lispro 100 unit/mL subcutaneous pen See Rx Instructions SC TID #36 ml 06/29/18 [Rx Confirmed 12/31/19] aspirin 325 mg tablet 325 mg PO DAILY 06/16/19 [History Confirmed 12/31/19] atorvastatin 40 mg tablet 40 mg PO QHS 06/16/19 [History Confirmed 12/31/19] bupropion HCl 150 mg tablet,12 hr sustained-release 150 mg PO DAILY 06/16/19 [History Confirmed 12/31/19] calcitriol 0.5 mcg capsule 0.5 mcg PO DAILY 06/16/19 [History Confirmed 12/31/19] Albuterol IH (ProAir) [Proair Hfa] 1 - 2 puff INHALATION Q6H PRN PRN 07/24/19 [History Confirmed 12/31/19] Insulin Detemir [Levemir FlexPen] 36 units SUBCUT QHS 07/24/19 [History Confirmed 12/31/19] blood sugar diagnostic See Rx Instructions .ROUTE .MEDSUPPLY #150 ea 11/11/19 [Rx Confirmed 12/31/19] BP cuff #1 ea 11/27/19 [Rx Confirmed 12/31/19] carvedilol 12.5 mg tablet 12.5 mg PO BID #60 tab 11/27/19 [Rx Confirmed 12/31/19] isosorbide mononitrate 30 mg tablet,extended release 24 hr 30 mg PO .COMPLEX #90 tab 11/27/19 [Rx Confirmed 12/31/19] PFSH Medical History Problem with dialysis access (Acute) Essential hypertension (Chronic) Diabetic polyneuropathy associated with type 1 diabetes mellitus (Chronic) CKD (chronic kidney disease) stage 4, GFR 15-29 ml/min (Chronic) Diabetes type 1, uncontrolled (Chronic) Tobacco abuse (Acute) Hyperlipidemia (Chronic) Heart disease (Chronic) Kidney disease (Chronic) Stroke (Chronic) Type 1 diabetes (Chronic) Cataracts, bilateral (Resolved) Pancreatitis (Resolved) DM2 (diabetes mellitus, type 2) (Inactive) Surgical History History of coronary artery stent placement (Chronic) Arteriovenous fistula for hemodialysis in place, primary (Chronic) H/O cardiac catheterization (Resolved) History of bilateral cataract extraction (Resolved) Family History Mother Diabetes Thyroid disorder Hypertension Hyperlipidemia Social History (Updated 12/31/19 @ 14:[address] Shamir Tsai MD) Smoking Status: Former smoker how long ago did patient quit smokin months alcohol intake: current alcohol intake frequency: holidays/special occasions only substance use type: does not use caffeine: Yes Type: coffee Number of servings: 2 HPI HPI HPI: АНДРЕЙ BEAVER, is a 59 M who presents to the office today for urgent consultation because of a problem with dialysis access. The patient's had several successful dialysis treatments with his left forearm radiocephalic AV fistula but then the infiltrated. Now it is swollen bruised he has significant extravasation and they have not been able to canalize it. He is not previously had tunneled dialysis catheters. My most recent intervention for him was October 27, 2019 when I did a bam CO2 maturation angioplasty with a 5 x 80 mm ever cross balloon in the proximal portion of the fistula. The fistula was created for him on July 28, 2019 HPI HPI HPI: АНДРЕЙ BEAVER, is a 59 M who presents to the office today for ROS General General: No weight change, appetite, fatigue, colon cancer, breast cancer or weakness HEENT HEENT: Yes eye surgery; no difficulty swallowing, eye injury, swollen glands or hoarseness Endo Endocrine: Yes diabetes mellitus; no thyroid disease, thyroid cancer, Hair loss, heat intolerance or cold intolerance Skin Skin: No rash or changing moles Breast Breast: No left breast lump, right breast lump, nipple discharge, breast pain, abnormal mammogram, abnormal US or breast enlargement Musc Musculoskeletal: No back problems, arthritis, rheumatoid arthritis, gout or joint pain Cardio Cardiovascular: Yes heart disease, high blood pressure, heart attack and heart stent; no murmur, pacemaker, atrial fibrillation, palpitations, shortness of breat with exertion or chest pain Psych Psychiatric: No depression, anxiety or hearing voices Resp Respiratory: No shortness of breath, No sleep apnea, No cough, No COPD, No asthma, No emphysema, No wheezing Gastro Gastrointestinal: No abdominal pain, No nausea or vomiting, No diarrhea, No constipation, No blood in stool, No acid reflux, No hemorrhoids, No ulcers, No gallbladder problem, No black,tarry stools Amor Hematologic: Yes blood thinners, No blood disorders, No bleeding, No anemia, No blood clots Neuro Neurologic: No weakness Exam Const General: cooperative, comfortable, no acute distress Nutritional Appearance: average body habitus Orientation: alert, awake HENMT Head: normal to inspection Chest Breast Palpation: No nipple discharge Resp Effort & Inspection: normal respiratory effort Auscultation: clear to auscultation bilaterally Cardio Rate: regular rate Rhythm: regular rhythm Heart Sounds: no murmurs GI Palpation: soft Skin Other: Significant discoloration and ecchymosis left forearm Extrem Other: Left forearm has a palpable pulse thrill and bruit within the fistula. On my ultrasound inspection appears to be patent. In the mid forearm it is slightly deep. The radial artery is somewhat calcified. He does have side branches noted. Psych Affect: normal affect Assessment & Plan Problems 1. Problem with dialysis access, subsequent encounter T82.961D Plan I believe now that the patient has problems with his left forearm radiocephalic AV fistula secondary to the extravasation and swelling which is complicating repeat access. Unfortunately an emergency fistulogram will not alter that. I recommend to him urgent placement of right internal jugular tunneled dialysis catheters. He is aware of technique, benefit, risk, alternatives. Dr. Rosario Cardenas does suggest that he does need dialysis at earliest convenience. Subsequently I recommend to him that we do attempt a left forearm fistulogram. I would anticipate accessing his fistula closer to the antecubital space retrograde with flow. I would anticipate likely further maturation angioplasty or appropriate treatment is indicated. I have previously had some difficulty with a sidebranch ligation on him. I would be prepared to do a coil ligation of any dominant side branches if indicated at that setting. He has had an opportunity ask and have questions answered. The urgent procedure is the tunnel dialysis catheters. We will see if we can add him onto our OR scheduling tomorrow. Copy: Dr. Rosario Tsai M.D., F.A.C.S. The patient had a successful right internal jugular tunneled dialysis catheter placement. He returns now in an attempt to improve his left forearm radiocephalic AV fistula. He had significant infiltration that occurred during an attempt at hemodialysis. I anticipate a left upper extremity fistulogram likely accessing the fistula retrograde with flow closer to the antecubital space under ultrasound guidance. Careful inspection for the outflow cephalic vein will need to be pursued. Then inspection for proximal fistula stenosis and or competitive sidebranches will be pursued. I had previously in the office tried to tie off some side branches without complete success. I anticipate placing coils to achieve this if indicated. He has had an opportunity to ask and have questions answered. We will proceed as noted. Shamir Tsai M.D., F.A.C.S. Procedure Criteria Procedure Type: Elective COVID Risk Discussion: The surgeon/proceduralist and patient have discussed in detail the risk of exposure to and/or potential harm posed by the COVID-19 virus with having a surgery/procedure at this time versus the risk of delaying the surgery/procedure. It is not possible to know either the risk of delaying the surgery or procedure or chance of getting an infection with perfect accuracy, but a joint decision was made between the patient and the surgeon/proceduralist to proceed at this time with the scheduled surgery/procedure as indicated on the consent form.
--- NOTE | 2020-01-07 11:08 | OP.PCM_ITS ---
Problem List (1) Problem with dialysis access Status: Acute Qualifiers: Encounter type: subsequent encounter Report of Operation Date of Procedure: 01/07/20 Pre-Operative Diagnosis: Severe infiltration left forearm radiocephalic arterio venous hemodialysis fistula Post-Operative Diagnosis: Proximal fistula venous stenosis. 2 large dominant side branch competitive flow Surgery/Procedure Performed:: Left upper extremity fistulogram with 6 x 2 ConQuest angioplasty of the proximal fistula and sidebranch #1 coiling with 6 x 70 mm Amelie coil and sidebranch #2 coiling with 2 separate 4 x 70 mm Amelie coils Description of Surgical Findings:: Timeout and informed consent was obtained. 59-year-old gent was taken to the special procedure lab placed on the table the left extremity sterilely prepped draped he received 50 mcg of fentanyl milligram of Versed is intravenous sedation. Under ultrasound guidance cephalic vein closer to the antecubital space was identified. 2% lidocaine was instilled under ultrasound guidance. Under ultrasound guidance micropuncture needle was inserted retrograde with flow. Micropuncture wire inserted and then a 6 Setswana short sheath was inserted. Using an 035 angled guidewire a 4 Setswana angled glide cath was placed in the radial artery proximal to the anastomosis. Using Isovue contrast a fistulogram was obtained. This demonstrated some mild arterial anastomotic stenosis and some moderate stenosis in the proximal portion of the fistula. A 035 angled Glidewire was reinserted and then a 6 x 2 ConQuest balloon was placed and angioplasty of the arterial anastomosis and proximal portion of the fistula was performed. Subsequent follow-up view demonstrated resolution of the area venous stenosis. Extending from the mid forearm fistula medially there was a dominant side branch and laterally a dominant side branch with 2 rapid segments. Both of these were providing significant competitive flow. Using a Glidewire I was able to get a 5 Setswana Kumpe catheter into the more medial 1. It was larger and I placed a 6 x 70 mm Amelie coil with good success. I accessed the more lateral tributary and was able to place a 4 x 7 mm inner Amelie coil and then withdrew the catheter a slight degree and placed a second 4 x 7 mm Amelie coil again with good success. All coils were well within tributary vessels and not within the fistula itself. The fistula had a good pulse thrill and bruit at the completion no apparent complications sheath was removed U suture of 4-0 nylon was placed. It is of note that actually the sheath dislodged so I was not able to get any further views I did not feel reaccessing was pertinent this time. He was taken to the recovery room in satisfactory edition Specimen none, blood loss minimal, drains none Shamir Tsai M.D., F.A.C.S. Type of Anesthesia:: Local MAC
== END 2020-01-07 12:00 | disposition home or self-care (01) ==
LOC: CLSP 08:35
PROVIDERS: PCP Student in an Organized Health Care Education/Training Program; Referring Provider Surgery; Visit Provider Surgery
DX: T82.858A Stenosis of other vascular prosthetic devices, implants and grafts, initial encounter (principal); E10.22 Type 1 diabetes mellitus with diabetic chronic kidney disease; I12.9 Hypertensive chronic kidney disease with stage 1 through stage 4 chronic kidney disease, or unspecified chronic kidney disease; N18.4 Chronic kidney disease, stage 4 (severe); Z99.2 Dependence on renal dialysis; E10.42 Type 1 diabetes mellitus with diabetic polyneuropathy; E78.5 Hyperlipidemia, unspecified; Z86.73 Personal history of transient ischemic attack (TIA), and cerebral infarction without residual deficits; Z87.19 Personal history of other diseases of the digestive system; Z79.4 Long term (current) use of insulin; Z79.02 Long term (current) use of antithrombotics/antiplatelets; Z79.82 Long term (current) use of aspirin; Z79.899 Other long term (current) drug therapy; Z87.891 Personal history of nicotine dependence
CPT/HCPCS: 36902; 36909; 76937; 99152; 99153; Q9967; C1725; C1769

== ENCOUNTER → 2020-01-16 20:14 | Outpatient (CLI) | payer OTHER, SELFPAY ==
[2020-01-08 08:05] VITALS: BMI 38.1
== END ==
PROVIDERS: PCP Student in an Organized Health Care Education/Training Program; Referring Provider Internal Medicine Cardiovascular Disease; Visit Provider Internal Medicine Cardiovascular Disease
DX: G47.10 Hypersomnia, unspecified (principal); R40.0 Somnolence; I10 Essential (primary) hypertension
CPT/HCPCS: 95810

== ENCOUNTER → 2020-03-02 19:59 | Outpatient (CLI) | payer OTHER, SELFPAY ==
[2020-02-13 13:30] VITALS: BMI 36.7
== END ==
PROVIDERS: PCP Student in an Organized Health Care Education/Training Program; Referring Provider Nurse Practitioner Acute Care; Visit Provider Nurse Practitioner Acute Care
DX: G47.33 Obstructive sleep apnea (adult) (pediatric) (principal)
CPT/HCPCS: 95811

== ENCOUNTER → 2020-03-16 09:16 | Outpatient (CLI) | payer OTHER, SELFPAY | PROVIDERS: PCP Student in an Organized Health Care Education/Training Program; Visit Provider Nurse Practitioner Acute Care | DX: Z46.89 Encounter for fitting and adjustment of other specified devices (principal) ==

== ENCOUNTER 2020-03-19 07:58 | Day surgery (SDC) | payer OTHER, SELFPAY ==
[2020-02-13 13:30] VITALS: BMI 36.7
--- NOTE | 2020-03-12 11:06 | EKG12_ITS ---
Test Reason : PRE OP Blood Pressure : / mmHG Vent. Rate : 063 BPM Atrial Rate : 063 BPM P-R Int : 220 ms QRS Dur : 106 ms QT Int : 416 ms P-R-T Axes : 039 -81 085 degrees QTc Int : 425 ms Sinus rhythm with 1st degree A-V block Left anterior fascicular block [id number] Poor R- wave progression Abnormal ECG Confirmed by MARCELINO ZUÑIGA, JAVIER ([id number]), editorial cartoonist ANATOLY FAIR ([id number]) on 03/18/2020 8:18:16 AM Referred By: Shamir Tsai Confirmed By:JAVIER BENSON MD
[2020-03-12 11:41] LABS: Hemoglobin 14.1 g/dL (13.0-16.5); Mean Corpuscular Hgb 31.3 pg (27.0-32.0); Mean Corpuscular Volume 97.8 fL (80-94); Mean Platelet Vol. 10.1 fl (6.2-12.0); Platelet Count 196 K/mm3 (150-450); RBC Distribution Width CV 13.9 % (11.6-14.6); RBC Distribution Width SD 50.8 fl (35.1-43.9); White Blood Count 10.9 K/mm3 (4.4-11.0)
[2020-03-12 12:58] LABS: Anion Gap 5 (5-15); BUN 60 mg/dL (7-18); BUN/Creat Ratio 6.2 RATIO (10-20); Calcium,Total 9.6 mg/dL (8.5-10.1); Chloride 102 mmol/L (98-107); Creatinine, Serum 9.71 mg/dL (0.70-1.30); EST Glomerular Filtration Rate 6 mL/min (>60); Est Glom Filt Rate - Afr Amer 7 mL/min (>60); Glucose 282 mg/dL (74-106); Potassium 5.3 mmol/L (3.5-5.1); Sodium Level 136 mmol/L (136-145)
[2020-03-19] VITALS (14 sets, daily range): BP systolic 100–135; BP diastolic 41–77; PULSE 54–67; RESP 16; TEMP 35.9–37.1; O2SAT 95–98; BMI 37.3
[2020-03-19] MEDS: 0.9% Normal Saline 1,000 ML 30 ML IV (08:48)
[2020-03-19 08:55] LABS: Bedside Glucose 311 mg/dL (70-110)
--- NOTE | 2020-03-19 09:33 | PCM.HP.BLA ---
Problem List (1) Chronic renal failure, stage 5 Status: Chronic History and Physical Date of Admission: 03/19/20 Intake Intake Visit Reasons: PD Cath Eval & CVC Removal Chief Complaint: dialysis cath removal Display Specialist Required: No Is patient in pain?: No Allergies No Known Allergies Allergy (Verified 02/13/20 13:27) Medications Clopidogrel Bisulfate [Plavix] 75 mg PO DAILY 01/26/13 [History Confirmed 03/08/20] aspirin 325 mg tablet 325 mg PO DAILY 06/16/19 [History Confirmed 03/08/20] atorvastatin 40 mg tablet 40 mg PO QHS 06/16/19 [History Confirmed 03/08/20] bupropion HCl 150 mg tablet,12 hr sustained-release 150 mg PO DAILY 06/16/19 [History Confirmed 03/08/20] calcitriol 0.5 mcg capsule 0.5 mcg PO DAILY 06/16/19 [History Confirmed 03/08/20] Albuterol IH (ProAir) [Proair Hfa] 1 - 2 puff INHALATION Q6H PRN PRN 07/24/19 [History Confirmed 03/08/20] blood sugar diagnostic See Rx Instructions .ROUTE .MEDSUPPLY #150 ea 11/11/19 [Rx Confirmed 03/08/20] BP cuff #1 ea 11/27/19 [Rx Confirmed 03/08/20] Amlodipine [Norvasc] 5 mg PO DAILY 12/31/19 [History Confirmed 03/08/20] Metoprolol Tartrate [Lopressor (beta siddhartha)] 100 mg PO DAILY 01/01/20 [History Confirmed 03/08/20] isosorbide mononitrate 30 mg tablet,extended release 24 hr 30 mg PO BID tab 01/08/20 [History Confirmed 03/08/20] blood-glucose sensor See Rx Instructions .ROUTE .MEDSUPPLY #9 ea 02/12/20 [Rx Confirmed 03/08/20] blood-glucose transmitter See Rx Instructions .ROUTE .MEDSUPPLY #1 ea 02/12/20 [Rx Confirmed 03/08/20] insulin aspart U-100 100 unit/mL (3 mL) subcutaneous pen 12 unit SC TID #36 ml 02/12/20 [Rx Confirmed 03/08/20] insulin detemir U-100 100 unit/mL (3 mL) subcutaneous pen 30 unit SUBCUT QHS #30 ml 02/12/20 [Rx Confirmed 03/08/20] pen needle, diabetic 32 gauge x 32 See Rx Instructions .ROUTE .MEDSUPPLY #400 ea 02/12/20 [Rx Confirmed 03/08/20] [facility] Medical History Problem with dialysis access (Acute) Essential hypertension (Chronic) Diabetic polyneuropathy associated with type 1 diabetes mellitus (Chronic) CKD (chronic kidney disease) stage 4, GFR 15-29 ml/min (Chronic) Diabetes type 1, uncontrolled (Chronic) Tobacco abuse (Acute) Hyperlipidemia (Chronic) Heart disease (Chronic) Kidney disease (Chronic) Stroke (Chronic) Type 1 diabetes (Chronic) Cataracts, bilateral (Resolved) Pancreatitis (Resolved) DM2 (diabetes mellitus, type 2) (Inactive) Surgical History History of coronary artery stent placement (Chronic) Arteriovenous fistula for hemodialysis in place, primary (Chronic) H/O cardiac catheterization (Resolved) History of bilateral cataract extraction (Resolved) Family History Mother Diabetes Thyroid disorder Hypertension Hyperlipidemia Social History (Updated 03/08/20 @ 14:[address] Shamir Tsai MD) Smoking Status: Former smoker how long ago did patient quit smokin months alcohol intake: current alcohol intake frequency: holidays/special occasions only substance use type: does not use caffeine: Yes Type: coffee Number of servings: 2 HPI HPI HPI: АНДРЕЙ BEAVER, is a 59 M who presents to the office today for surgical consultation regarding peritoneal dialysis catheter placement as well as removal of his right IJ tunneled dialysis catheters. He has a functioning left forearm radiocephalic AV fistula.My most recent intervention for him January 07, 2020. I treated the proximal venous stenosis with a 6 x 2 conquest angioplasty. 2 large dominant side branches were treated with Amelie coils. He is being adequate dialyzed via his left forearm AV fistula. He is noted to be overweight. He has had no previous abdominal surgery. He is diabetic and there is evidence of multiple insulin injection sites as well as transcutaneous monitor. HPI HPI HPI: АНДРЕЙ BEAVER, is a 59 M who presents to the office today for Exam Const General: cooperative, comfortable, no acute distress Nutritional Appearance: obese Orientation: alert, awake [facility] Head: normal to inspection Resp Effort & Inspection: normal respiratory effort Auscultation: clear to auscultation bilaterally Cardio Rate: regular rate Rhythm: regular rhythm GI Palpation: soft Other: Overweight, distended, nontender, normal bowel sounds, multiple areas of ecchymosis bilaterally Skin Other: Abdominal skin demonstrates areas of subcu injections and monitoring with diffuse ecchymosis. Neuro Cognition: normal cognition Extrem Other: Left upper extremity demonstrates a left forearm radiocephalic AV fistula. There is a moderate pulse and thrill and bruit. Skin is intact Psych Affect: normal affect Office Procedures Port/Cath Removal Provider Documentation Details:: Procedure note Removal right internal jugular tunneled dialysis catheter Timeout and informed consent was obtained. The patient was taken the procedure room placed upon the table. The neck, chest, catheter site was sterilely prepped and draped. 1% lidocaine mixed 50-50 with 0.5% Marcaine was used as a local anesthetic. A total of 8 cc was used. A small transverse counter incision was made directly over the cuff. Sharp and blunt dissection was used to release the cuff. Direct pressure was held upon the catheter site as the tubing was removed. The cuff was completely released. The counterincision was closed with interrupted 3-0 chromic subdermal sutures. The catheter was then completely removed. The counterincision site was closed with Skin-Prep and Steri-Strips and Telfa OpSite. The patient was given activity wound care instructions. Further office follow-up can be as needed. The catheter was inspected it was noted to be intact and was subsequently discarded. Blood loss was minimal and the patient tolerated this well. Shamir Tsai M.D., F.A.C.S. Alert [employer] Department Supervisor Alert Billing: Yes Port/Peg Port/Pe Dialysis Cath Remov Procedure Time Out Time Out Informed consent given: Yes Consent signed: Yes Time out checklist: patient, procedure, site marked/identified, positioning of patient, supplies available, allergies confirmed, team agrees on procedure Time out staff in room: Yes Time out verified: Yes Time out date: 03/08/20 Time out time: 13:36 Assessment & Plan Problems 1. Obesity (BMI 35.0-39.9 without comorbidity) E66.9 2. Chronic renal failure, stage 5 N18.5 3. Problem with dialysis access, initial encounter T82.534J Plan Need for right chest intrajugular tunneled dialysis catheter removal which was successfully accomplished for the patient today. He had his Plavix held for 1 day preprocedure. There were no apparent complications. He has a left forearm radiocephalic arteriovenous hemodialysis via fistula. It has required multiple interventions to maintain. Currently he reports adequate use. He has interested in insertion of laparoscopically placed peritoneal dialysis catheters. I have in the detail discussed with him the technique, benefit, risk and alternatives. No guarantees of success have been offered. I have asked him to keep his subcutaneous injection sites up higher in the abdomen. He is well aware that his body habitus may complicate his presentation and effectiveness of the catheters. He has not any previous abdominal surgery. He is aware of COVID-19 and is aware that we would anticipate an outpatient procedure. I would need to have him hold his clopidogrel for 4 days preprocedure. He has had an opportunity to ask and have questions answered. We will schedule procedure at his discretion. I appreciate the ongoing opportunity of assisting with her surgical care. Copy Dr. Rosario Cardenas and Dr. Handy Tsai M.D., F.A.C.S. Orders Orders: Port/Cath Removal Today Coding Level of Care Code Attention [employer] Department Supervisor Diagnoses Obesity (BMI 35.0-39.9 without comorbidity) E66.9 Chronic renal failure, stage 5 N18.5 Problem with dialysis access, initial encounter T82.636B ??Encounter type: initial encounter I have re-examined the patient. There are no clinical changes since date of exam. Procedure Criteria Procedure Type: Elective COVID Risk Discussion: The surgeon/proceduralist and patient have discussed in detail the risk of exposure to and/or potential harm posed by the COVID-19 virus with having a surgery/procedure at this time versus the risk of delaying the surgery/procedure. It is not possible to know either the risk of delaying the surgery or procedure or chance of getting an infection with perfect accuracy, but a joint decision was made between the patient and the surgeon/proceduralist to proceed at this time with the scheduled surgery/procedure as indicated on the consent form.
--- NOTE | 2020-03-19 09:34 | DCINST_ITS ---
Discharge Diet: Light diet - advance as tolerated - if you have questions about your diet instructions, please talk to you doctor., Renal Diet Discharge Activity: May Not Drive - for 3-5 days or while taking narcotic pain medicine., May Not Shower May shower in (days): 1 Lifting Restrictions: 10 pounds Call your doctor if your incision/area has: Continuous Slow Oozing, Sudden Increased Bleeding, Increased Pain/ Swelling, Increased Redness, Foul Smelling Discharge Call your doctor if you observe: Fever of 101 or Higher Suture Line Care: Avoid Pulling/Pushing, Avoid Pinching/Bending Additional Dressing/Incision Instructions:: Change or remove dressing in 4 days. Leave steri-strips in place for 1 week. Allergies/Adverse Reactions: Allergies No Known Allergies Allergy (Verified 03/19/20 08:39) Medications to take at Discharge Clopidogrel Bisulfate [Plavix] 75 mg PO DAILY 01/26/13 aspirin 325 mg tablet 325 mg PO DAILY 06/16/19 atorvastatin 40 mg tablet 40 mg PO QHS 06/16/19 bupropion HCl 150 mg tablet,12 hr sustained-release 150 mg PO DAILY 06/16/19 calcitriol 0.5 mcg capsule 0.5 mcg PO DAILY 06/16/19 Albuterol IH (ProAir) [Proair Hfa] 1 - 2 puff INHALATION Q6H PRN PRN 07/24/19 blood sugar diagnostic See Rx Instructions .ROUTE .MEDSUPPLY #150 ea 11/11/19 BP cuff #1 ea 11/27/19 Metoprolol Tartrate [Lopressor (beta siddhartha)] 100 mg PO DAILY 01/01/20 isosorbide mononitrate 30 mg tablet,extended release 24 hr 30 mg PO BID tab 01/08/20 blood-glucose sensor See Rx Instructions .ROUTE .MEDSUPPLY #9 ea 02/12/20 blood-glucose transmitter See Rx Instructions .ROUTE .MEDSUPPLY #1 ea 02/12/20 pen needle, diabetic 32 gauge x See Rx Instructions .ROUTE .MEDSUPPLY #400 ea 02/12/20 Carvedilol [Coreg] 12.5 mg PO DAILY 03/11/20 Furosemide [Lasix] 20 mg PO DAILY 03/11/20 Insulin Aspart [Insulin Aspart Flexpen] 18 unit SC TID 03/11/20 Insulin Detemir [Levemir Flextouch] 36 unit SC QHS 03/11/20 Sucroferric Oxyhydroxide [Velphoro] 1,000 mg PO TID 03/11/20 Vit B Comp No.3/Folic/C/Biotin [Nephro-Cam Rx Tablet] 1 ea PO DAILY 03/11/20 Primary Care Physician: Handy Henderson DO [Primary Care Provider] - Test Results: Test results from this visit will be discussed in further detail at your follow- up appointment, if applicable. Please Follow Up With: Shamir Tsai MD - [phone] When: Call for appt. Ph, or virtual, or onsite. Approx. 10 days
[2020-03-19] MEDS: Cefazolin 2 GM in 0.9% Normal Saline 100 ML IV (10:12)
[2020-03-19] MEDS: Heparin Injection (Vial) 5,000 UNIT/ML VIAL 5000 UNIT (10:40)
--- NOTE | 2020-03-19 11:27 | OP.PCM_ITS ---
Problem List (1) Chronic renal failure, stage 5 Status: Chronic Report of Operation Date of Procedure: 03/19/20 Pre-Operative Diagnosis: Stage V chronic renal insufficiency in need of peritoneal dialysis catheter placement for home hemodialysis Post-Operative Diagnosis: Same Surgery/Procedure Performed:: Laparoscopic peritoneal dialysis catheter placement. Laparoscopic omentopexy. [place] double cuffed peritoneal dialysis catheter. Lot #[id number]. Expiry date July 05, 2023 Description of Surgical Findings:: Timeout and informed consent was obtained. 59-year-old gentleman was taken to the operating placement table underwent general endotracheal intubation anesthesia. Ancef 2 g were given intravenous preoperatively. The abdomen was sterilely prepped and draped. In the right mid lower abdomen a Visiport technology was used to gain access to the abdomen. Clean access was obtained with no bowel injury. The abdomen was then insufflated with CO2 to a pressure of 10 mmHg pressure. An additional 5 mm scope was placed on the right lower quadrant. The double cuff [place] peritoneal dialysis catheter was measured. An inappropriate placed left and inferior to the umbilicus a transverse incision was created. Sharp dissection carried down through the subcutaneous tissue. A 8 mm diameter dilating trocar stylette was placed and then tunneled into the retrorectus sheath aimed toward the pelvis was then pushed through the dilator was advanced. Then the double cuffed catheter over a support lewis was placed into the pelvis. The catheter was positioned so that the cuff was underneath the peritoneum. The pelvic hollow was very shallow. There was not a significant amount of room in the cul-de-sac behind the urinary bladder and anterior to the rectum. The catheter however appeared to be sitting and there appropriately. I did open the peritoneum a little bit to allow for more free play of the catheter. The abdomen was allowed to deflate while watching the catheter which appeared to stay in position. Then I made a curvilinear positioning sweep of the catheter so as to exit in the left mid abdomen at a 30 degree downward angle. Using a sharp trocar it was exited at that site. The infraumbilical incision was closed interrupted 4-0 Monocryl subdermal stitch. The catheter had a titanium attachment device applied then 1 L of saline was inserted. About 500 cc returned. I inspected the catheter was in good position I elected to leave the positioning as I could not improve upon it. I did perform a MAC to kelly by making a stab incision in the lateral left abdomen and using a grainy needle and 0 Prolene secured the omentum so as it would not then reach the pelvis. I connected the attachment device and injected 150 cc of heparinized saline. Betadine Was applied. Trochars were removed. Skin edges approximated opted for Monocryl subdermal stitches. Steri-Strips Telfa OpSite dressings applied. Bulky ABD dressings and careful securement of the tubing was performed with thin complete occlusive OpSite dressing. Sponge and instrument and needle counts reported the surgery were correct. Blood loss was minimal. He tolerated the procedure well was taken to the recovery area in satisfactory edition with apparent complication. Specimens none. Drains none. Blood loss minimal. Shamir Tsai M.D., F.A.C.S. Type of Anesthesia:: General Anesthesiologist: Tru Blanco
[2020-03-19] MEDS: Bupivacaine Mpf 0.5% 30 ML VIAL (11:30)
[2020-03-19 12:15] LABS: Bedside Glucose 407 mg/dL (70-110)
[2020-03-19] MEDS: Insulin Lispro 100 UNIT/ML INSULN.PEN 8 UNIT SC ×3 (12:36→13:55)
[2020-03-19 14:10] LABS: Bedside Glucose 403 mg/dL (70-110)
[2020-03-19 14:10] LABS: Bedside Glucose 370 mg/dL (70-110)
[2020-03-19 14:40] LABS: Bedside Glucose 328 mg/dL (70-110)
[2020-03-19] MEDS: HYDROcodone Bitartrate/Apap 5/325 Tablet PO (15:05)
== END 2020-03-19 17:02 | disposition home or self-care (01) ==
LOC: SDC 07:59 → AC 08:04
PROVIDERS: PCP Student in an Organized Health Care Education/Training Program; Referring Provider Surgery; Visit Provider Surgery
PROC: 0WHG43Z Insertion of Infusion Device into Peritoneal Cavity, Percutaneous Endoscopic Approach (ICD-10-PCS; CPT 49324; principal; 2020-03-19 10:15)
DX: T82.898A Other specified complication of vascular prosthetic devices, implants and grafts, initial encounter (principal); N18.5 Chronic kidney disease, stage 5; E66.9 Obesity, unspecified; E10.42 Type 1 diabetes mellitus with diabetic polyneuropathy; E78.5 Hyperlipidemia, unspecified; Z79.4 Long term (current) use of insulin; Z79.02 Long term (current) use of antithrombotics/antiplatelets; Z79.82 Long term (current) use of aspirin; Z87.891 Personal history of nicotine dependence; Z99.2 Dependence on renal dialysis; Z95.5 Presence of coronary angioplasty implant and graft
CPT/HCPCS: 49324; 36415; 80048; 82962; 85027; 87426; 93005; C9803; J7030

== ENCOUNTER 2020-03-20 05:03 | Emergency (ER) | payer OTHER, SELFPAY ==
[2020-03-19 08:41] VITALS: BMI 37.3
[2020-03-20 05:04] VITALS: BP 180/71; PULSE 64; RESP 17; TEMP 36.1; O2SAT 98; BMI 37.9
[2020-03-20 05:12] VITALS: BP 180/71; PULSE 64; RESP 17; TEMP 36.1; O2SAT 98
--- NOTE | 2020-03-20 05:18 | ED.DCSUM_ITS ---
- ER Visit Summary Date of Service: 03/20/20 Chief Complaint: Urinary retention History of Present Illness: The patient is a 59 M presenting with inability to urinate. He states this started yesterday. He had a peritoneal dialysis catheter placed under anesthesia yesterday. He states he has been unable to urinate since that time. He is on hemodialysis but does make urine. He is scheduled for hemodialysis today. He denies fever. Denies other complaints. Physical Examination: Vitals are stable. Patient is afebrile. Alert no acute distress. HEENT exam is unremarkable. Neck is supple. Lungs are clear and equal bilaterally. Heart is regular rate and rhythm. Abdomen is soft suprapubic tenderness Extremities are unremarkable. Skin is warm and dry. No focal neurologic deficit. Remainder of exam is unremarkable. Emergency Department Course and Treatment: [place] catheter was placed. Over 1000 cc urine drained. Leg bag was placed. Patient feels improved. Advised to follow-up with urology. Advised return to ED for worsening complaints. Disposition: Discharged home Impression: Urinary retention This note was generated with [employer] dictation software. It may contain incorrect words, spelling, and punctuation that were not noted in review of the chart prior to signing ED Disposition - Plan for ED Patient: Instructions: ED [place] Catheter, Care, ED Urinary Retention, Male Referrals: Handy Henderson DO [Primary Care Provider] - Daniel Culp MD [STAFF PHYSICIAN] -
--- NOTE | 2020-03-20 05:37 | ED.DEP ---
ED Disposition - Plan for ED Patient: Instructions: ED [place] Catheter, Care, ED Urinary Retention, Male Referrals: Handy Henderson DO [Primary Care Provider] - Daniel Culp MD [STAFF PHYSICIAN] -
[2020-03-20 05:45] VITALS: BP 164/85; PULSE 79; RESP 18; O2SAT 98
--- NOTE | 2020-03-20 05:46 | ED.RN ---
THIS NURSE REVIEWED D/C INSTRUCTIONS WITH PT. PT VERBALIZED UNDERSTANDING OF INSTRUCTIONS. PT DENIES FURTHER NEEDS OR QUESTIONS AT THIS TIME.
== END 2020-03-20 05:56 | disposition home or self-care (01) ==
LOC: ED 05:17
PROVIDERS: Emergency Provider Emergency Medicine; PCP Student in an Organized Health Care Education/Training Program
DX: R33.9 Retention of urine, unspecified (principal); I25.10 Atherosclerotic heart disease of native coronary artery without angina pectoris; I12.0 Hypertensive chronic kidney disease with stage 5 chronic kidney disease or end stage renal disease; E11.22 Type 2 diabetes mellitus with diabetic chronic kidney disease; N18.6 End stage renal disease; E78.00 Pure hypercholesterolemia, unspecified; Z99.2 Dependence on renal dialysis
CPT/HCPCS: 51702; 99283

== ENCOUNTER 2020-04-05 07:47 | Day surgery (SDC) | payer OTHER, SELFPAY ==
[2020-03-31 13:44] VITALS: BMI 35.3
[2020-03-31 16:39] LABS: Absolute Lymphocyte Count 2.16 X10^3/uL (0.83-4.51); Basophil# 0.13 X10^3/uL; Basophil% 1.1 % (0-1); Eosinophil# 0.37 X10^3/uL; Eosinophils% 3.1 % (0-5); Hematocrit 44.9 % (40-54); Hemoglobin 14.3 g/dL (13.0-16.5); Lymphocyte # 2.16 X10^3/ul (4.0); Mean Corp Hgb Conc 31.8 g/dL (32-36); Mean Corpuscular Hgb 31.5 pg (27.0-32.0); Mean Corpuscular Volume 98.9 fL (80-94); Mean Platelet Vol. 10.1 fl (6.2-12.0); NRBC Flagged by Analyzer 0 % (0-5); Neutrophil # 7.99 X10^3/uL (2.7-7.7); Neutrophil % 66.7 % (47-70); Platelet Count 257 K/mm3 (150-450); RBC Distribution Width CV 13.2 % (11.6-14.6); RBC Distribution Width SD 47.9 fl (35.1-43.9); Red Blood Count 4.54 M/mm3 (4.6-6.2)
[2020-03-31 17:17] LABS: Anion Gap 7 (5-15); BUN 41 mg/dL (7-18); BUN/Creat Ratio 5.6 RATIO (10-20); Calcium,Total 9.8 mg/dL (8.5-10.1); Chloride 97 mmol/L (98-107); Creatinine, Serum 7.31 mg/dL (0.70-1.30); EST Glomerular Filtration Rate 8 mL/min (>60); Est Glom Filt Rate - Afr Amer 10 mL/min (>60); Estimated Creatinine Clearance 11.51 ml/min; Glucose 178 mg/dL (74-106); Potassium 4.5 mmol/L (3.5-5.1); Sodium Level 137 mmol/L (136-145)
--- NOTE | 2020-04-05 08:55 | HP.PCM_ITS ---
Problem List (1) Problem with dialysis access Status: Acute Qualifiers: History and Physical Date of Admission: 04/05/20 Intake Visit Reasons: recheck PD Chief Complaint: post PD cath insertion and discuss fistulogram Bakery Assistant Required: No Is patient in pain?: No Allergies No Known Allergies Allergy (Verified 03/31/20 14:20) Medications Clopidogrel Bisulfate [Plavix] 75 mg PO DAILY 01/26/13 [History Confirmed 03/31/20] aspirin 325 mg tablet 325 mg PO DAILY 06/16/19 [History Confirmed 03/31/20] atorvastatin 40 mg tablet 40 mg PO QHS 06/16/19 [History Confirmed 03/31/20] bupropion HCl 150 mg tablet,12 hr sustained-release 150 mg PO DAILY 06/16/19 [History Confirmed 03/31/20] calcitriol 0.5 mcg capsule 0.5 mcg PO DAILY 06/16/19 [History Confirmed 03/31/20] Albuterol IH (ProAir) [Proair Hfa] 1 - 2 puff INHALATION Q6H PRN PRN 07/24/19 [History Confirmed 03/31/20] blood sugar diagnostic See Rx Instructions .ROUTE .MEDSUPPLY #150 ea 11/11/19 [Rx Confirmed 03/31/20] BP cuff #1 ea 11/27/19 [Rx Confirmed 03/31/20] Metoprolol Tartrate [Lopressor (beta siddhartha)] 100 mg PO DAILY 01/01/20 [History Confirmed 03/31/20] isosorbide mononitrate 30 mg tablet,extended release 24 hr 30 mg PO BID tab 01/08/20 [History Confirmed 03/31/20] blood-glucose sensor See Rx Instructions .ROUTE .MEDSUPPLY #9 ea 02/12/20 [Rx Confirmed 03/31/20] blood-glucose transmitter See Rx Instructions .ROUTE .MEDSUPPLY #1 ea 02/12/20 [Rx Confirmed 03/31/20] pen needle, diabetic 32 gauge x 5/32 See Rx Instructions .ROUTE .MEDSUPPLY #400 ea 02/12/20 [Rx Confirmed 03/31/20] Carvedilol [Coreg] 12.5 mg PO DAILY 03/11/20 [History Confirmed 03/31/20] Furosemide [Lasix] 20 mg PO DAILY 03/11/20 [History Confirmed 03/31/20] Insulin Aspart [Insulin Aspart Flexpen] 18 unit SC TID 03/11/20 [History Confi rmed 03/31/20] Insulin Detemir [Levemir Flextouch] 36 unit SC QHS 03/11/20 [History Confirmed 03/31/20] Sucroferric Oxyhydroxide [Velphoro] 1,000 mg PO TID 03/11/20 [History Confirmed 03/31/20] Vit B Comp No.3/Folic/C/Biotin [Nephro-Cam Rx Tablet] 1 ea PO DAILY 03/11/20 [History Confirmed 03/31/20] [facility] Medical History Chronic renal failure, stage 5 (Chronic) Problem with dialysis access (Acute) Essential hypertension (Chronic) Diabetic polyneuropathy associated with type 1 diabetes mellitus (Chronic) CKD (chronic kidney disease) stage 4, GFR 15-29 ml/min (Chronic) Diabetes type 1, uncontrolled (Chronic) Tobacco abuse (Acute) Hyperlipidemia (Chronic) Heart disease (Chronic) Kidney disease (Chronic) Stroke (Chronic) Type 1 diabetes (Chronic) Cataracts, bilateral (Resolved) Pancreatitis (Resolved) DM2 (diabetes mellitus, type 2) (Inactive) Surgical History History of coronary artery stent placement (Chronic) history of peritoneal catheter insertion (Acute ~03/2020) Arteriovenous fistula for hemodialysis in place, primary (Chronic) H/O cardiac catheterization (Resolved) History of bilateral cataract extraction (Resolved) Family History Mother Diabetes Thyroid disorder Hypertension Hyperlipidemia Social History (Updated 03/31/20 @ 15:05 by Vanesa BRONSON, PA-C) Smoking Status: Former smoker how long ago did patient quit smokin months alcohol intake: current alcohol intake frequency: holidays/special occasions only substance use type: does not use caffeine: Yes Type: coffee Number of servings: 2 HPI HPI HPI: АНДРЕЙ BEAVER, is a 59 M who presents to the office today for HPI HPI Surgical H&P: Yes HPI: АНДРЕЙ BEAVER, is a 59 M who presents to the office today for chronic renal failure. Dr. Tsai performed a laparoscopic peritoneal dialysis catheter placement on 03/19/20. Patient tolerated the procedure well. He has a functioning left forearm radiocephalic AV fistula. Patient's most recent intervention was on January 07, 2020. Dr. Tsai treated the proximal venous stenosis with a 6 x 2 conquest angioplasty. 2 large dominant side branches were treated with Amelie coils. He is being dialyzed via his left forearm AV fistula. ROS General General: No weight change, appetite, fatigue, colon cancer, breast cancer or weakness HEENT HEENT: Yes eye surgery; no difficulty swallowing, eye injury, swollen glands or hoarseness Endo Endocrine: Yes diabetes mellitus; no thyroid disease, thyroid cancer, Hair loss, heat intolerance or cold intolerance Skin Skin: No rash or changing moles Breast Breast: No left breast lump, right breast lump, nipple discharge, breast pain, abnormal mammogram, abnormal US or breast enlargement Musc Musculoskeletal: No back problems, arthritis, rheumatoid arthritis, gout or joint pain Cardio Cardiovascular: Yes heart disease, high blood pressure, heart attack and heart stent; no murmur, pacemaker, atrial fibrillation, palpitations, shortness of breat with exertion or chest pain Psych Psychiatric: No depression, anxiety or hearing voices Resp Respiratory: No shortness of breath, No sleep apnea, No cough, No COPD, No asthma, No emphysema, No wheezing Gastro Gastrointestinal: No abdominal pain, No nausea or vomiting, No diarrhea, No con stipation, No blood in stool, No acid reflux, No hemorrhoids, No ulcers, No gallbladder problem, No black,tarry stools Amor Hematologic: Yes blood thinners, No blood disorders, No bleeding, No anemia, No blood clots Neuro Neurologic: No weakness Exam Const General: cooperative, comfortable, no acute distress [facility] Head: normal to inspection Eyes General: appearance normal, both eyes and all related structures Neck Neck: normal visual inspection Neck mass: No Chest Breast Palpation: No nipple discharge Resp Effort & Inspection: normal respiratory effort Cardio Rate: regular rate Rhythm: regular rhythm Heart Sounds: no murmurs GI Inspection: normal to inspection Palpation: soft Other: PD catheter noted- c/d/i. No erythema or infection noted. He has 2 small sized skin tears from the adhesive bandages. Bacitracin was used and op-sites were placed. Skin General: no rashes or lesions noted Neuro General: no focal motor deficits Extrem General: normal to inspection Other: left forearm AV fistula- good pulse, diminished bruit and thrill Psych Appearance: grossly normal Assessment & Plan Problems 1. Chronic renal failure, stage 5 N18.5 2. Problem with dialysis access, initial encounter T82.377L Plan Dr. Tsai will plan to perform a left forearm fistulogram. Procedure details, risks and benefits have been reviewed. Patient has had the opportunity to ask and have questions answered. Patient verbally understands and agrees with the plan. Patient is on full strength aspirin and Plavix for blood thinners. He will continue those for the procedure. Instructions were discussed with patient in regards to showering at 6 weeks post-op. Typically can start first treatment at 6 weeks. He has started flushes through the PD cath. Patient will follow-up 2 weeks after fistulogram to release PD caths for use. Orders Orders: CBC W/Diff, Automated Today N18.5 Basic Metabolic Profile (BMP) Today N18.5 Coding Level of Care Code Global Post Op Diagnoses Chronic renal failure, stage 5 N18.5 Problem with dialysis access, initial encounter T82.057L ??Encounter type: initial encounter I have re-examined the patient. There are no clinical changes since date of exam. Procedure Criteria Procedure Type: Elective COVID Risk Discussion: The surgeon/proceduralist and patient have discussed in detail the risk of e xposure to and/or potential harm posed by the COVID-19 virus with having a surgery/procedure at this time versus the risk of delaying the surgery/procedure. It is not possible to know either the risk of delaying the surgery or procedure or chance of getting an infection with perfect accuracy, but a joint decision was made between the patient and the surgeon/proceduralist to proceed at this time with the scheduled surgery/procedure as indicated on the consent form.
--- NOTE | 2020-04-05 09:52 | PCM.OPRPT ---
Problem List (1) Problem with dialysis access Status: Acute Qualifiers: Report of Operation Date of Procedure: 04/05/20 Pre-Operative Diagnosis: Diminished flows left forearm radiocephalic arteriovenous hemodialysis fistula Post-Operative Diagnosis: Proximal fistula venous stenosis x2 Surgery/Procedure Performed:: Left upper extremity fistulogram with 6 x 20 mm cutting balloon angioplasty Description of Surgical Findings:: Timeout and informed consent was obtained. 59-year-old gentleman was taken to the special procedures lab and placed upon the table. The left upper extremity was sterilely prepped and draped. 50 mcg of fentanyl and 1 mg Versed was given as intravenous sedation. The left upper extremity was sterilely prepped and draped. 2% lidocaine was used as a local anesthetic. Local was instilled around the vein close to the arterial anastomosis for anticipated intervention. Then using ultrasound identified the cephalic vein in the proximal third of the volar forearm. Under ultrasound guidance 2% lidocaine was still. Then a micropuncture needle was inserted retrograde with flow. Micropuncture wire inserted. A 6 [place] short sheath dilator was inserted. Using a 035 angled Glidewire and a 4 [place] glide cath I gained access to the anastomosis proximal to the fistula within the radial artery. I used Isovue contrast and obtained a fistulogram. This demonstrated 2 areas of clinically significant venous stenosis. One was within the first centimeter adjacent to the the anastomosis and one was in the curvature of the vein at approximately 4 to 5 cm from the anastomosis. The patient received 5000 units of heparin. A 6 x 20 mm Cutting Balloon was inserted and 6 separate insufflations at the very proximal portion of the fistula adjacent to the arterial anastomosis and a couple to 3 cm more distally were treated. The area about 4 to 5 cm from the anastomosis was [place] and required 3 separate insufflations of the wound until that was released. That balloon was insufflated to a total of 10 sebastián of pressure. I then removed the balloon over the wire inserted 4 [place] glide cath obtained a completion view now demonstrating dramatic improvement with resolution of all areas of stenosis. Contrast used 14 cc Fistulogram demonstrates a left forearm radiocephalic arteriovenous fistula with evidence of sidebranch occlusions with coils. There appears to be mostly dominant flow through the fistula with 2 areas of significant stenosis 1 adjacent to the arterial anastomosis and one at about 4 to 5 cm distally. Both of these completely responded to the 6 x 2 Cutting Balloon. Shamir Tsai M.D., F.A.C.S. Type of Anesthesia:: IV Sedation
== END 2020-04-05 11:00 | disposition home or self-care (01) ==
LOC: CLSP 07:49
PROVIDERS: Physician Assistant; PCP Student in an Organized Health Care Education/Training Program; Referring Provider Surgery; Visit Provider Surgery
DX: T82.898A Other specified complication of vascular prosthetic devices, implants and grafts, initial encounter (principal); T82.858A Stenosis of other vascular prosthetic devices, implants and grafts, initial encounter; I12.9 Hypertensive chronic kidney disease with stage 1 through stage 4 chronic kidney disease, or unspecified chronic kidney disease; N18.5 Chronic kidney disease, stage 5; E10.42 Type 1 diabetes mellitus with diabetic polyneuropathy; E78.5 Hyperlipidemia, unspecified; Z95.5 Presence of coronary angioplasty implant and graft; Z79.02 Long term (current) use of antithrombotics/antiplatelets; Z79.4 Long term (current) use of insulin; Z79.82 Long term (current) use of aspirin; Z87.891 Personal history of nicotine dependence
CPT/HCPCS: 36821; 36415; 36902; 76937; 80048; 85025; C1725; J7040; Q9967; C1769

== ENCOUNTER 2020-09-24 05:07 | Emergency (ER) | payer OTHER, SELFPAY ==
[2020-05-17 13:24] VITALS: BMI 38.7
[2020-09-24 05:08] VITALS: BP 158/87; PULSE 109; RESP 19; TEMP 36.7; O2SAT 97; BMI 39.9
[2020-09-24 05:29] LABS: Absolute Lymphocyte Count 1.12 X10^3/uL (0.83-4.51); Absolute Neutrophil Count 9.7 X10^3/uL (2.0-7.7); Basophil% 0.8 % (0-1); Eosinophil# 0.17 X10^3/uL; Eosinophils% 1.4 % (0-5); Lymphocyte # 1.12 X10^3/ul (0.83-4.51); Lymphocyte % 9.2 % (19-41); Mean Corp Hgb Conc 33.3 g/dL (32-36); Mean Corpuscular Hgb 31.7 pg (27.0-32.0); Mean Corpuscular Volume 95.1 fL (80-94); Mean Platelet Vol. 9.4 fl (6.2-12.0); Monocyte# 0.98 X10^3/uL; Monocyte% 8.1 % (0-10); NRBC Flagged by Analyzer 0 % (0-5); Neutrophil # 9.71 X10^3/uL (2.7-7.7); Platelet Count 160 K/mm3 (150-450); RBC Distribution Width CV 14.2 % (11.6-14.6); RBC Distribution Width SD 49.5 fl (35.1-43.9); Red Blood Count 5.36 M/mm3 (4.6-6.2); White Blood Count 12.1 K/mm3 (4.4-11.0)
[2020-09-24] MEDS: Morphine 4 MG/ML Syringe IV ×2 (05:46→08:44)
[2020-09-24] MEDS: Ondansetron 4 MG/2 ML Vial IV (05:46)
[2020-09-24 05:50] LABS: AST(SGOT) 22 U/L (15-37); Alanine Aminotransfer ALT/SGPT 40 U/L (16-61); Albumin, Serum 3.4 g/dL (3.2-5.0); Alkaline Phosphatase 94 U/L (45-117); Anion Gap 13 (5-15); BUN 57 mg/dL (7-18); BUN/Creat Ratio 4.3 RATIO (10-20); Bilirubin, Direct 0.16 mg/dL (0.00-0.30); Chloride 97 mmol/L (98-107); EST Glomerular Filtration Rate 4 mL/min (>60); Est Glom Filt Rate - Afr Amer 5 mL/min (>60); Globulin 3.6 g/dL (2.2-4.2); Glucose 185 mg/dL (74-106); Potassium 3.6 mmol/L (3.5-5.1); Sodium Level 136 mmol/L (136-145)
--- NOTE | 2020-09-24 06:00 | CT_ITS ---
STUDY: CT ABDOMEN AND PELVIS WITHOUT CONTRAST REASON FOR EXAM: Male, 60 years old. abdominal pain RADIATION DOSAGE (If Supplied By Facility): CTDIvol = ( 22.49 ) mGy, DLP = ( 1359.61 ) mGycm TECHNIQUE: Transaxial images were obtained from the dome of the diaphragm to the symphysis pubis without oral contrast, and without intravenous contrast. Sagittal and coronal images were reconstructed. Individualized dose optimization techniques were used for this CT. COMPARISON: None. FINDINGS: The visualized lung bases are unremarkable. Normal liver. There is free fluid surrounding the liver and spleen. Normal gallbladder and extrahepatic biliary system. There are multiple benign calcified granulomata of the spleen. Normal pancreas. Normal bilateral adrenal glands. There is mild hydroureteronephrosis on the right. There are no demonstrated ureteral or bladder calculi. Unremarkable left kidney. Normal visualized stomach. Normal small intestine. Normal colon. The appendix is visualized and appears normal. There is atherosclerotic calcifications of the abdominal aorta, there is free fluid within the abdomen and pelvis. There is peritoneal shunt in place. Normal urinary bladder. There is enlarged prostate. Normal abdominal wall. There are diffuse degenerative changes of the visualized lumbar spine. CT/Abdomen/Pel W ORAL Cont Only IMPRESSION: Mild right hydronephrosis without demonstrated obstructing calculi. Differential considerations include recently passed calculus, infectious and neoplastic disease. No evidence for bowel obstruction, colitis or diverticulitis. Mild ascites. Electronically Signed: Sonia Mancini MD at 8:30 EDT Tel , Service support ,
--- NOTE | 2020-09-24 07:23 | EDS_ITS ---
HPI History of Present Illness Chief Complaint: Abd Pain Informant: patient Onset/Context/Timing Onset: Yesterday Context: Gradual Onset Timing: Waxes and wanes Current Severity: Moderate Maximum Severity: Moderate Narrative Narrative: Patient presents secondary to lower abdominal pain. Patient reports last evening developing lower abdominal pain. He does do peritoneal dialysis and recently had the volume of his dialysate increased. Patient states the first night he had no problems with this. The second night, last night, patient states he developed pain as soon as he put the first wash in. He states no matter what he does with the fluid at this time the pain remains constant. He does state that the fluid is clear. He has had no fever or chills. [facility] Medical History (Updated 09/24/20 @ 08:[address] Awa Fair MD) Atherosclerosis of [place] coronary artery of [place] heart without angina pectoris Cataracts, bilateral Chronic renal failure, stage 5 CKD (chronic kidney disease) stage 4, GFR 15-29 ml/min Diabetes type 1, uncontrolled Diabetic polyneuropathy associated with type 1 diabetes mellitus DM2 (diabetes mellitus, type 2) Essential hypertension Heart disease Hyperlipidemia Incomplete right bundle branch block Kidney disease Obesity (BMI 35.0-39.9 without comorbidity) NORBERTO (obstructive sleep apnea) Pancreatitis Stroke Tobacco abuse Type 1 diabetes Uncontrolled type 1 diabetes mellitus with ESRD (end-stage renal disease) Home Medications clopidogrel 75 mg PO DAILY 01/26/13 [History Last Taken 04/05/20] aspirin 325 mg tablet 325 mg PO DAILY 06/16/19 [History Last Taken 04/05/20] calcitriol 0.5 mcg capsule 0.5 mcg PO DAILY 06/16/19 [History Last Taken 04/05/20] albuterol sulfate 1 - 2 puff INHALATION Q6H PRN PRN 07/24/19 [History Last Taken 10/27/19] blood sugar diagnostic #150 ea 11/11/19 [Rx Last Taken Unknown] BP cuff #1 ea 11/27/19 [Rx Last Taken Unknown] pen needle, diabetic 32 gauge x #400 ea 02/12/20 [Rx Last Taken Unknown] vit B comp no.5-xyuqs-G-biotin 1 ea PO DAILY 03/11/20 [History Last Taken 04/05/20] insulin aspart U-100 100 unit/mL subcutaneous solution 100 unit SC DAILY #90 ml 04/12/20 [Rx Last Taken Unknown] atorvastatin 40 mg tablet 40 mg PO QHS #90 tab 04/22/20 [Rx Last Taken Unknown] furosemide 40 mg tablet 80 mg PO DAILY tab 04/22/20 [History Last Taken Unknown] sucroferric oxyhydroxide 500 mg chewable tablet 1,000 mg PO TID 04/22/20 [History Last Taken Unknown] tamsulosin 0.4 mg capsule 0.4 mg PO QHS cap 04/22/20 [History Last Taken Unknown] gentamicin 0.1 % topical cream 1 g TOPICAL PRN PRN 05/17/20 [History Last Taken Unknown] blood-glucose sensor #9 ea 08/26/20 [Rx Last Taken Unknown] blood-glucose transmitter #1 ea 08/26/20 [Rx Last Taken Unknown] Allergy/AdvReac Type Severity Reaction Status Date / Time No Known Allergies Allergy Verified 09/24/20 05:11 Family History Mother Diabetes Thyroid disorder Hypertension Hyperlipidemia Surgical History Arteriovenous fistula for hemodialysis in place, primary H/O cardiac catheterization History of bilateral cataract extraction History of coronary artery stent placement (04/21/11) history of peritoneal catheter insertion (~03/2020) Problem with dialysis access (04/05/20) Social History Smoking Status: Former smoker how long ago did patient quit smokin months alcohol intake: current alcohol intake frequency: holidays/special occasions only substance use type: does not use caffeine: Yes Type: coffee Number of servings: 2 ROS ROS ED Constitutional Constitutional ED: Denies chills or fever(s) Eyes Eyes: Denies change in vision ENT ENT ED: Denies sore throat Cardiovascular Cardiovascular: Denies chest pain Respiratory/Chest Respiratory/Chest: Denies cough or dyspnea Gastrointestinal Gastrointestinal: Reports abdominal pain and nausea; Denies diarrhea or vomiting Genitourinary Genitourinary ED: Denies dysuria Musculoskeletal Musculoskeletal: Denies back pain Integumentary Denies rash Neurologic Neurologic: Denies headache(s) or weakness Psychiatric Psychiatric: Denies anxiety or depression Endocrine Endocrinology: Denies polydipsia or polyuria Allergic/Immunologic Allergic/Immunologic ED: Denies urticaria EXAM Physical Exam Const Vital Signs: 09/24/20 05:08 Temperature 98.1 F Temperature Source Oral Pulse Rate 109 H Respiratory Rate 19 H Blood Pressure 158/87 H Blood Pressure Mean 110 Pulse Ox 97 Positive well nourished and well developed General Appearance ED: well developed HEENT Reports normocephalic and head/scalp atraumatic Eyes PERRL and EOMs intact bilaterally Neck supple Chest Wall inspection of chest normal and palpation of chest normal Resp normal respiratory effort and clear to auscultation bilaterally Cardio regular rate and regular rhythm GI normal to inspection, nondistended, normoactive bowel sounds Palpation: soft and tender suprapubic Extremity normal to inspection Neuro oriented x3 and no sensory deficits noted Sensorium / Orientation: alert Motor Exam: strength 5/5 throughout Psych mental status grossly normal Skin no rashes or lesions noted MDM MDM MDM Narrative Medical decision making narrative: Labs are ordered. CT scan with p.o. contrast is ordered. Lab Data Attestation: I reviewed the patient's lab results. Labs: Laboratory Results - last 24 hr 09/24/20 09/24/20 05:20 05:20 WBC 12.1 H RBC 5.36 Hgb 17.0 H Hct 51.0 MCV 95.1 H MCH 31.7 MCHC 33.3 RDW Std Deviation 49.5 H RDW Coeff of Kindra 14.2 Plt Count 160 MPV 9.4 Immature Gran % (Auto) 0.500 Neut % (Auto) 80.0 H Lymph % (Auto) 9.2 L [place] % (Auto) 8.1 Eos % (Auto) 1.4 Baso % (Auto) 0.8 Absolute Neuts (auto) 9.7 H Absolute Lymphs (auto) 1.12 Nucleated RBC % 0 Sodium 136 Potassium 3.6 Chloride 97 L Carbon Dioxide 26.0 Anion Gap 13 BUN 57 H Creatinine 13.20 H* Estim Creat Clear Calc 6.30 Est GFR (MDRD) Af Amer 5 L Est GFR (MDRD) Non-Af 4 L BUN/Creatinine Ratio 4.3 L Glucose 185 H Calcium 10.0 Total Bilirubin 0.40 Direct Bilirubin 0.16 AST 22 ALT 40 Alkaline Phosphatase 94 Total Protein 7.0 Albumin 3.4 Globulin 3.6 Treatment and Re-Evaluation Comments:: Patient was given morphine and Zofran for pain. Lab work is reviewed. White count is minimally elevated. Creatinine is 13.2. Potassium is normal. Urinalysis is pending as patient does not make much urine and did urinate just prior to arrival. CT scan has been obtained and final report is pending. This will be signed out to oncoming physician. If CT is unremarkable with no obvious cause of abdominal pain I do feel computed tomography scanner operator will need to be contacted to see if they want to test the peritoneal fluid. Discharge Plan Triage Chief Complaint: Abd Pain ED Provider: Awa Fair Dx/Rx/DC Orders Clinical Impression: Abdominal pain Prescriptions: No Action aspirin 325 mg tablet 325 mg PO DAILY RF: 0 calcitriol 0.5 mcg capsule 0.5 mcg PO DAILY RF: 0 furosemide 40 mg tablet 80 mg PO DAILY RF: 0 tamsulosin 0.4 mg capsule 0.4 mg PO QHS RF: 0 atorvastatin 40 mg tablet 40 mg PO QHS Qty: 90 RF: 3 (DME) pen needle, diabetic [BD Ultra-Fine Cici Pen Needle] 32 gauge x 5/32 needle See Rx Instructions .ROUTE .MEDSUPPLY Qty: 400 RF: 2 gentamicin 0.1 % cream 1 g TOPICAL PRN PRN (Reason: Rash) RF: 0 clopidogrel 75 MG tablet 75 mg PO DAILY RF: 0 albuterol sulfate 1 PUFF inhaler 1 - 2 puff INHALATION Q6H PRN PRN (Reason: Wheezing) RF: 0 vit B comp no.1-tzmiq-C-biotin 1 EACH tablet 1 ea PO DAILY RF: 0 sucroferric oxyhydroxide 500 mg tablet,chewable 1,000 mg PO TID RF: 0 (DME) Accu-Chek Katey Plus test strp Strip See Rx Instructions .ROUTE .MEDSUPPLY Qty: 150 RF: 8 (DME) BP cuff Qty: 1 RF: 0 insulin aspart U-100 [Novolog U-100 Insulin aspart] 100 unit/mL solution 100 unit SC DAILY Qty: 90 RF: 3 (DME) Dexcom G6 Sensor Device See Rx Instructions .ROUTE .MEDSUPPLY Qty: 9 RF: 1 (DME) Dexcom G6 Transmitter Device See Rx Instructions .ROUTE .MEDSUPPLY Qty: 1 RF: 1 Primary Care Provider: Handy Henderson Referrals: Handy Henderson, [Primary Care Provider] -
[2020-09-24 08:47] VITALS: BP 149/87; PULSE 76; RESP 14; O2SAT 96
--- NOTE | 2020-09-24 08:47 | ED.RN ---
pt aware urine sample needed. pt given water to drink
[2020-09-24 10:59] VITALS: BP 149/77; PULSE 62; RESP 17; O2SAT 96
[2020-09-24 12:40] VITALS: BP 148/76; PULSE 85; RESP 16
[2020-09-24 13:49] VITALS: PULSE 88; RESP 16; TEMP 36.5
[2020-09-24 13:51] LABS: Mucous, Urine 0 SEEN /hpf (<or=2+)
[2020-09-24 13:59] LABS: Color, Urine Yellow (Yellow); Glucose, Dipstick 250 mg/dl (Normal); Ketone-Dipstick Negative (Negative); Leukocyte Esterase-Dipstick 100 /ul (Negative); Nitrite-Dipstick Negative (Negative); Occult Blood-Urine 250 /ul (Negative); Protein-Dipstick 100 mg/dl (Negative); Specific Gravity, Urine 1.015 (1.002-1.030); Urine Bilirubin Dipstick Negative (Negative); Urine Clarity Sl. Cloudy (Clear); Urine Urobilinogen Normal (Normal)
[2020-09-24 14:04] LABS: Red Blood Cells-Urine 10-25 SEEN /hpf (0-5); Squamous Epithelial Cells - UA 0-5 SEEN /hpf (0-5); White Blood Cells 0-5 SEEN /hpf (0-5)
[2020-09-24 14:05] LABS: Bacteria RARE /hpf (None Seen)
[2020-09-24 14:06] LABS: Amorphous Sediment 1+
[2020-09-24 14:31] VITALS: BP 151/89; PULSE 80; RESP 16
== END 2020-09-24 14:37 | disposition home or self-care (01) ==
PROVIDERS: Emergency Provider Emergency Medicine; PCP Student in an Organized Health Care Education/Training Program
DX: R10.9 Unspecified abdominal pain (principal); Z87.891 Personal history of nicotine dependence; I25.10 Atherosclerotic heart disease of native coronary artery without angina pectoris; E10.22 Type 1 diabetes mellitus with diabetic chronic kidney disease; E10.42 Type 1 diabetes mellitus with diabetic polyneuropathy; E10.65 Type 1 diabetes mellitus with hyperglycemia; E66.9 Obesity, unspecified; E78.5 Hyperlipidemia, unspecified; G47.33 Obstructive sleep apnea (adult) (pediatric); I12.0 Hypertensive chronic kidney disease with stage 5 chronic kidney disease or end stage renal disease; N18.6 End stage renal disease; Z79.4 Long term (current) use of insulin; Z79.82 Long term (current) use of aspirin; Z68.39 Body mass index [BMI] 39.0-39.9, adult
CPT/HCPCS: 36415; 74176; 80048; 80076; 81001; 85025; 87040; 96374; 96375; 96376; 99283; A4216; J2405

== ENCOUNTER → 2021-02-28 10:15 | Outpatient (CLI) | payer OTHER, SELFPAY ==
[2021-02-28 10:40] LABS: Absolute Lymphocyte Count 2.03 X10^3/uL (0.83-4.51); Absolute Neutrophil Count 7.9 X10^3/uL (2.0-7.7); Basophil# 0.13 X10^3/uL; Basophil% 1.1 % (0-1); Eosinophil# 0.45 X10^3/uL; Eosinophils% 3.7 % (0-5); Hematocrit 52.5 % (40-54); Hemoglobin 17.2 g/dL (13.0-16.5); Lymphocyte # 2.03 X10^3/ul (0.83-4.51); Lymphocyte % 16.9 % (19-41); Mean Corp Hgb Conc 32.8 g/dL (32-36); Mean Corpuscular Hgb 31.6 pg (27.0-32.0); Mean Corpuscular Volume 96.3 fL (80-94); Mean Platelet Vol. 9.4 fl (6.2-12.0); Monocyte# 1.42 X10^3/uL; Monocyte% 11.8 % (0-10); NRBC Flagged by Analyzer 0 % (0-5); Neutrophil % 65.8 % (47-70); Platelet Count 201 K/mm3 (150-450); RBC Distribution Width CV 13.7 % (11.6-14.6); RBC Distribution Width SD 49.1 fl (35.1-43.9); Red Blood Count 5.45 M/mm3 (4.6-6.2)
[2021-02-28 11:29] LABS: Anion Gap 8 (5-15); BUN 65 mg/dL (7-18); BUN/Creat Ratio 6.1 RATIO (10-20); Calcium,Total 9.4 mg/dL (8.5-10.1); Chloride 98 mmol/L (98-107); EST Glomerular Filtration Rate 5 mL/min (>60); Est Glom Filt Rate - Afr Amer 6 mL/min (>60); Glucose 161 mg/dL (74-106); Potassium 3.5 mmol/L (3.5-5.1); Sodium Level 136 mmol/L (136-145)
== END ==
PROVIDERS: PCP Student in an Organized Health Care Education/Training Program; Referring Provider Physician Assistant; Visit Provider Physician Assistant
DX: N18.5 Chronic kidney disease, stage 5 (principal)
CPT/HCPCS: 36415; 80048; 85025

== ENCOUNTER 2021-03-11 09:19 | Day surgery (SDC) | payer OTHER, SELFPAY ==
[2021-03-10 09:13] VITALS: BMI 40.4
--- NOTE | 2021-03-11 10:54 | HP.PCM_ITS ---
History and Physical Date of Admission: 03/11/21 Intake Visit Reasons: Fistula Access issues Chief Complaint: diabetes type 1 Allergies No Known Allergies Allergy (Verified 02/28/21 10:08) Medications clopidogrel 75 mg PO DAILY 01/26/13 [History Confirmed 02/28/21] aspirin 325 mg tablet 325 mg PO DAILY 06/16/19 [History Confirmed 02/28/21] calcitriol 0.5 mcg capsule 0.5 mcg PO DAILY 06/16/19 [History Confirmed 02/28/21] albuterol sulfate 1 - 2 puff INHALATION Q6H PRN PRN 07/24/19 [History Confirmed 02/28/21] BP cuff #1 ea 11/27/19 [Rx Confirmed 02/28/21] pen needle, diabetic 32 gauge x #400 ea 02/12/20 [Rx Confirmed 02/28/21] vit B comp no.0-qsdol-Q-biotin 1 ea PO DAILY 03/11/20 [History Confirmed 02/28/21] atorvastatin 40 mg tablet 40 mg PO QHS #90 tab 04/22/20 [Rx Confirmed 02/28/21] furosemide 40 mg tablet 80 mg PO DAILY tab 04/22/20 [History Confirmed 02/28/21] sucroferric oxyhydroxide 500 mg chewable tablet 1,000 mg PO TID 04/22/20 [History Confirmed 02/28/21] tamsulosin 0.4 mg capsule 0.4 mg PO QHS cap 04/22/20 [History Confirmed 02/28/21] gentamicin 0.1 % topical cream 1 g TOPICAL PRN PRN 05/17/20 [History Confirmed 02/28/21] blood-glucose sensor #9 ea 08/26/20 [Rx Confirmed 02/28/21] blood-glucose transmitter #1 ea 08/26/20 [Rx Confirmed 02/28/21] blood sugar diagnostic #150 ea 11/17/20 [Rx Confirmed 02/28/21] insulin aspart U-100 100 unit/mL subcutaneous solution 120 unit SC DAILY #110 ml 12/13/20 [Rx Confirmed 02/28/21] [facility] Medical History (Updated 02/28/21 @ 14:07 by Vanesa BRONSON, PA-C) Atherosclerosis of [place] coronary artery of [place] heart without angina pectoris Cataracts, bilateral Chronic renal failure, stage 5 CKD (chronic kidney disease) stage 4, GFR 15-29 ml/min Diabetes type 1, uncontrolled Diabetic polyneuropathy associated with type 1 diabetes mellitus DM2 (diabetes mellitus, type 2) Essential hypertension Heart disease Hyperlipidemia Incomplete right bundle branch block Kidney disease Malfunction of arteriovenous dialysis fistula Obesity Obesity (BMI 35.0-39.9 without comorbidity) NORBERTO (obstructive sleep apnea) Pancreatitis Stroke Tobacco abuse Type 1 diabetes Uncontrolled type 1 diabetes mellitus with ESRD (end-stage renal disease) Surgical History Arteriovenous fistula for hemodialysis in place, primary H/O cardiac catheterization History of bilateral cataract extraction History of coronary artery stent placement (04/21/11) history of peritoneal catheter insertion (~03/2020) Problem with dialysis access (04/05/20) Family History Mother Diabetes Thyroid disorder Hypertension Hyperlipidemia Social History Smoking Status: Former smoker how long ago did patient quit smokin months alcohol intake: current alcohol intake frequency: holidays/special occasions only substance use type: does not use caffeine: Yes Type: coffee Number of servings: 2 HPI HPI HPI: 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 Patient has a left forearm radiocephalic arteriovenous hemodialysis fistula. He currently dialyzes via peritoneal dialysis catheters. He states home dialysis is going well for him. He has not had to utilize the fistula. He notes he was at the center and had an overview of his fistula which was noted to have a diminished bruit and thrill. He is maintained on Plavix and aspirin daily. His most recent fistulogram was on 04/05/20 which demonstrated proximal fistula venous stenosis x 2. A 6 x 20 mm cutting balloon was successfully used for treatment of the stenosis. Previous history includes side branch occlusions with coils. ROS General General: No weight change, appetite, fatigue, colon cancer, breast cancer or weakness HEENT HEENT: Yes eye surgery; No difficulty swallowing, eye injury, swollen glands or hoarseness Endo Endocrine: Yes diabetes mellitus; No thyroid disease, thyroid cancer, Hair loss, heat intolerance or cold intolerance Skin Skin: No rash or changing moles Breast Breast: No left breast lump, right breast lump, nipple discharge, breast pain, abnormal mammogram, abnormal US or breast enlargement Musc Musculoskeletal: No back problems, arthritis, rheumatoid arthritis, gout or joint pain Cardio Cardiovascular: Yes heart disease, high blood pressure, heart attack and heart stent; No murmur, pacemaker, atrial fibrillation, palpitations, shortness of breat with exertion or chest pain Psych Psychiatric: No depression, anxiety or hearing voices Resp Respiratory: No shortness of breath, No sleep apnea, No cough, No COPD, No asthma, No emphysema and No wheezing Gastro Gastrointestinal: No abdominal pain, No nausea or vomiting, No diarrhea, No constipation, No blood in stool, No acid reflux, No hemorrhoids, No ulcers, No gallbladder problem and No black,tarry stools Amor Hematologic: Yes blood thinners, No blood disorders, No bleeding, No anemia and No blood clots Neuro Neurologic: No system reviewed and no additional complaints, except as documented, No as per HPI, No abnormal gait, No abnormal hearing, No abnormal movements, No abnormal speech, No behavioral changes, No burning sensations, No confusion, No convulsions, No disequilibrium, No dizziness, No localized weakness, No frequent falls, No headache(s), No lack of coordination, No loss of vision, No memory loss, No numbness, No other visual disturbances, No radicular pain, No restless legs, No sensory deficit, No syncope, No tingling, No tremor(s), No weakness and No other Exam Const General: cooperative, healthy appearing, comfortable and no acute distress HENPA Head: normal to inspection Eyes General: appearance normal, both eyes and all related structures Neck Neck: normal visual inspection Neck mass: No Resp Effort & Inspection: normal respiratory effort Auscultation: clear to auscultation bilaterally Cardio Rate: regular rate Rhythm: regular rhythm GI Inspection: normal to inspection Palpation: soft Auscultation: normal bowel sounds Skin General: no rashes or lesions noted Neuro General: no focal motor deficits and CN's II-XI intact bilaterally Extrem Other: left forearm AV fistula- good pulse, diminished bruit and thrill. Psych Appearance: grossly normal Affect: normal affect COVID (Procedure Consent) Procedure Criteria Procedure Criteria: Yes Elective The surgeon/proceduralist and patient have discussed in detail the risk of exposure to and/or potential harm posed by the COVID-19 virus with having a surgery/procedure at this time versus the risk of delaying the surgery/procedure. It is not possible to know either the risk of delaying the surgery or procedure or chance of getting an infection with perfect accuracy, but a joint decision was made between the patient and the surgeon/proceduralist to proceed at this time with the scheduled surgery/procedure as indicated on the consent form. Assessment and Plan Assessment and Plan (1) Malfunction of arteriovenous dialysis fistula: Status: Acute Qualifiers: Encounter type: initial encounter Qualified Code(s): T82.590A - Other mechanical complication of surgically created arteriovenous fistula, initial encounter Plan - Vanesa BRONSON PAJinC: Dr. Tsai will plan to perform a non-urgent left forearm fistulogram with possible intervention. Procedure details, risks and benefits have been explained to the patient. Patient has had the opportunity to ask and have questions answered. Patient verbally understands and agrees with the plan. He will hold his Plavix for 2 days and continue the aspirin. I have re-examined the patient. There are no clinical changes since date of exam. Shamir Tsai M.D., F.A.C.S.
--- NOTE | 2021-03-11 10:55 | PCM.OPRPT ---
Problems Associated Problem List Diagnoses (1) Malfunction of arteriovenous dialysis fistula: Report of Operation Date of Procedure: 03/11/21 Pre-Operative Diagnosis: Diminished flow left forearm radiocephalic arteriovenous hemodialysis fistula Post-Operative Diagnosis: Normal left forearm radiocephalic fistulogram Surgery/Procedure Performed:: Left upper extremity radiocephalic fistulogram Description of Surgical Findings:: Timeout informed consent was obtained. 60-year-old gent was taken to the special procedures lab. Prior to the procedure the patient did receive 50 mcg of fentanyl and 1 mg of Versed is intravenous sedation. There was felt to be diminished flow within his left forearm radiocephalic arteriovenous hemodialysis fistula. He is currently managed on peritoneal dialysis. I used ultrasound to access the cephalic vein in the mid forearm retrograde with flow. 2% lidocaine was instilled under ultrasound guidance. Micropuncture needle inserted micropuncture wire inserted 6 [place] short sheath dilator is inserted an 03 5 inch Glidewire and a 4 [place] glide cath was placed in the radial artery proximal to the anastomosis. Using Isovue contrast then through the glide cath and subsequently through the sheath a left upper extremity fistulogram was obtained. He tolerated the procedure well. No areas of critical stenosis were identified. The procedure was completed the sheath was removed U suture of 4-0 nylon was placed. Fistulogram demonstrates a broad vein cobra ordonez on the radial artery without hemodynamically significant stenosis. The proximal portion of the fistula appears to be widely patent. There is some spasm in the mid fistula but this was an area that I had inspected with ultrasound and was noted to be widely patent. There is good upper arm cephalic and basilic vein outflow and good central venous outflow. Impression: No evidence of clinically significant left upper extremity radiocephalic arteriovenous hemodialysis fistula. I anticipate office follow-up in 1 week for surgical follow-up and suture removal The patient will continue to utilize peritoneal dialysis as it is functioning well for him. Shamir Tsai M.D., F.A.C.S. Surgeon: Shamir Tsai Type of Anesthesia: IV Sedation and Local
== END 2021-03-11 12:00 | disposition home or self-care (01) ==
LOC: CLSP 09:20
PROVIDERS: PCP Student in an Organized Health Care Education/Training Program; Referring Provider Surgery; Visit Provider Surgery
DX: T82.590A Other mechanical complication of surgically created arteriovenous fistula, initial encounter (principal); Z79.02 Long term (current) use of antithrombotics/antiplatelets; Z79.4 Long term (current) use of insulin; Z79.82 Long term (current) use of aspirin; Z99.2 Dependence on renal dialysis; Z87.891 Personal history of nicotine dependence; E10.22 Type 1 diabetes mellitus with diabetic chronic kidney disease; I12.0 Hypertensive chronic kidney disease with stage 5 chronic kidney disease or end stage renal disease; N18.6 End stage renal disease; G47.33 Obstructive sleep apnea (adult) (pediatric); E10.42 Type 1 diabetes mellitus with diabetic polyneuropathy; I25.10 Atherosclerotic heart disease of native coronary artery without angina pectoris
CPT/HCPCS: 36902; 76937; 99152; 99153; Q9967; C1769

== ENCOUNTER → 2021-05-04 | Outpatient (REF) | payer SELFPAY ==
[2021-05-04 17:09] LABS: AST(SGOT) 12 U/L (15-37); Alanine Aminotransfer ALT/SGPT 29 U/L (16-61); Albumin, Serum 2.7 g/dL (3.2-5.0); Alkaline Phosphatase 169 U/L (45-117); Anion Gap 6 (5-15); BUN 25 mg/dL (7-18); BUN/Creat Ratio 10.3 RATIO (10-20); Bilirubin, Direct 0.15 mg/dL (0.00-0.30); Calcium,Total 10.5 mg/dL (8.5-10.1); Chloride 112 mmol/L (98-107); Creatinine, Serum 2.43 mg/dL (0.70-1.30); EST Glomerular Filtration Rate 29 mL/min (>60); Est Glom Filt Rate - Afr Amer 35 mL/min (>60); Globulin 3.2 g/dL (2.2-4.2); Glucose 176 mg/dL (74-106); Magnesium 1.5 mg/dL (1.6-2.6); Potassium 4.9 mmol/L (3.5-5.1); Protein, Total 5.9 g/dL (6.4-8.2); Sodium Level 138 mmol/L (136-145)
[2021-05-04 17:10] LABS: Absolute Lymphocyte Count 0.91 X10^3/uL (0.83-4.51); Absolute Neutrophil Count 8.5 X10^3/uL (2.0-7.7); Basophil# 0.09 X10^3/uL; Basophil% 0.8 % (0-1); Eosinophils% 1.9 % (0-5); Hematocrit 33.6 % (40-54); Lymphocyte # 0.91 X10^3/ul (0.83-4.51); Lymphocyte % 8.5 % (19-41); Mean Corp Hgb Conc 32.7 g/dL (32-36); Mean Corpuscular Volume 97.7 fL (80-94); Mean Platelet Vol. 9.6 fl (6.2-12.0); Monocyte# 0.86 X10^3/uL; NRBC Flagged by Analyzer 0 % (0-5); Neutrophil # 8.49 X10^3/uL (2.7-7.7); Neutrophil % 79.5 % (47-70); Platelet Count 357 K/mm3 (150-450); RBC Distribution Width CV 14.2 % (11.6-14.6); RBC Distribution Width SD 50.9 fl (35.1-43.9); Red Blood Count 3.44 M/mm3 (4.6-6.2); White Blood Count 10.7 K/mm3 (4.4-11.0)
[2021-05-04 17:22] LABS: International Normalized Ratio 1.1; Prothrombin Time (Protime)PT. 13.3 SECONDS (11.7-14.9)
[2021-05-04 17:23] LABS: Partial Thromboplast Time 30.7 Seconds (24.1-36.2)
== END | disposition home or self-care (01) ==
LOC: OLS.SW1020 15:15
PROVIDERS: PCP Student in an Organized Health Care Education/Training Program; Visit Provider Internal Medicine
DX: Z94.0 Kidney transplant status (principal)
CPT/HCPCS: 36415; 80048; 80076; 83735; 85025; 85610; 85730

== ENCOUNTER → 2021-05-07 | Outpatient (REF) | payer SELFPAY ==
[2021-05-11 13:44] LABS: Tacrolimus (FK506) 8.3 ng/mL (2.0-20.0)
== END | disposition home or self-care (01) ==
LOC: OLS.SW1020 05:00
PROVIDERS: PCP Student in an Organized Health Care Education/Training Program; Visit Provider Internal Medicine
DX: Z94.0 Kidney transplant status (principal)
CPT/HCPCS: 80197

== ENCOUNTER → 2021-05-09 | Outpatient (REF) | payer SELFPAY ==
[2021-05-09 07:52] LABS: Absolute Lymphocyte Count 1.18 X10^3/uL (0.83-4.51); Absolute Neutrophil Count 6.7 X10^3/uL (2.0-7.7); Basophil# 0.08 X10^3/uL; Basophil% 0.9 % (0-1); Eosinophil# 0.18 X10^3/uL; Hematocrit 34.6 % (40-54); Hemoglobin 11.3 g/dL (13.0-16.5); Lymphocyte # 1.18 X10^3/ul (0.83-4.51); Lymphocyte % 13.1 % (19-41); Mean Corp Hgb Conc 32.7 g/dL (32-36); Mean Corpuscular Hgb 31.8 pg (27.0-32.0); Mean Corpuscular Volume 97.5 fL (80-94); Mean Platelet Vol. 9.7 fl (6.2-12.0); Monocyte# 0.79 X10^3/uL; Monocyte% 8.8 % (0-10); NRBC Flagged by Analyzer 0 % (0-5); Neutrophil # 6.68 X10^3/uL (2.7-7.7); Neutrophil % 74.4 % (47-70); Platelet Count 309 K/mm3 (150-450); RBC Distribution Width SD 50.8 fl (35.1-43.9); Red Blood Count 3.55 M/mm3 (4.6-6.2)
[2021-05-09 08:20] LABS: AST(SGOT) 10 U/L (15-37); Alanine Aminotransfer ALT/SGPT 21 U/L (16-61); Albumin, Serum 2.8 g/dL (3.2-5.0); Alkaline Phosphatase 163 U/L (45-117); Anion Gap 3 (5-15); BUN 31 mg/dL (7-18); Bilirubin, Direct 0.11 mg/dL (0.00-0.30); Calcium,Total 11.1 mg/dL (8.5-10.1); Chloride 112 mmol/L (98-107); Creatinine, Serum 2.73 mg/dL (0.70-1.30); EST Glomerular Filtration Rate 26 mL/min (>60); Est Glom Filt Rate - Afr Amer 31 mL/min (>60); Glucose 139 mg/dL (74-106); Phosphorus 2.3 mg/dL (2.5-4.9); Potassium 4.7 mmol/L (3.5-5.1); Protein, Total 5.8 g/dL (6.4-8.2); Sodium Level 137 mmol/L (136-145)
[2021-05-09 08:44] LABS: International Normalized Ratio 1.1; Prothrombin Time (Protime)PT. 13.9 SECONDS (11.7-14.9)
[2021-05-09 08:45] LABS: Partial Thromboplast Time 28.6 Seconds (24.1-36.2)
[2021-05-12 16:57] LABS: MG Sendout 1.8 mg/dL (1.6-2.3); Tacrolimus (FK506) 8.1 ng/mL (2.0-20.0)
== END | disposition home or self-care (01) ==
LOC: OLS.SW1020 06:00
PROVIDERS: PCP Student in an Organized Health Care Education/Training Program; Visit Provider Internal Medicine
DX: Z94.0 Kidney transplant status (principal)
CPT/HCPCS: 36415; 80051; 80076; 80197; 82310; 82565; 82947; 83735; 84100; 84520; 85025; 85610; 85730

== ENCOUNTER → 2021-05-12 | Outpatient (REF) | payer SELFPAY ==
[2021-05-12 07:35] LABS: Absolute Lymphocyte Count 1.25 X10^3/uL (0.83-4.51); Absolute Neutrophil Count 8.1 X10^3/uL (2.0-7.7); Basophil# 0.09 X10^3/uL; Basophil% 0.9 % (0-1); Eosinophils% 1.9 % (0-5); Hematocrit 36.9 % (40-54); Hemoglobin 11.6 g/dL (13.0-16.5); Lymphocyte # 1.25 X10^3/ul (0.83-4.51); Mean Corp Hgb Conc 31.4 g/dL (32-36); Mean Corpuscular Volume 98.7 fL (80-94); Mean Platelet Vol. 9.9 fl (6.2-12.0); Monocyte% 7.7 % (0-10); NRBC Flagged by Analyzer 0 % (0-5); Neutrophil # 8.05 X10^3/uL (2.7-7.7); Neutrophil % 77.1 % (47-70); Platelet Count 267 K/mm3 (150-450); RBC Distribution Width CV 14.4 % (11.6-14.6); RBC Distribution Width SD 51.8 fl (35.1-43.9); Red Blood Count 3.74 M/mm3 (4.6-6.2); White Blood Count 10.4 K/mm3 (4.4-11.0)
[2021-05-12 07:56] LABS: AST(SGOT) 9 U/L (15-37); Alanine Aminotransfer ALT/SGPT 23 U/L (16-61); Alkaline Phosphatase 156 U/L (45-117); Anion Gap 5 (5-15); BUN 29 mg/dL (7-18); Bilirubin, Direct 0.13 mg/dL (0.00-0.30); Chloride 111 mmol/L (98-107); Creatinine, Serum 2.92 mg/dL (0.70-1.30); EST Glomerular Filtration Rate 24 mL/min (>60); Est Glom Filt Rate - Afr Amer 29 mL/min (>60); Globulin 3.2 g/dL (2.2-4.2); Glucose 130 mg/dL (74-106); Phosphorus 2.8 mg/dL (2.5-4.9); Potassium 4.9 mmol/L (3.5-5.1); Protein, Total 6.2 g/dL (6.4-8.2); Sodium Level 138 mmol/L (136-145)
[2021-05-12 08:34] LABS: International Normalized Ratio 1.1; Prothrombin Time (Protime)PT. 13.6 SECONDS (11.7-14.9)
[2021-05-12 08:35] LABS: Partial Thromboplast Time 29.5 Seconds (24.1-36.2)
[2021-05-16 20:42] LABS: MG Sendout 1.9 mg/dL (1.6-2.3); Tacrolimus (FK506) 7.2 ng/mL (2.0-20.0)
== END | disposition home or self-care (01) ==
LOC: OLS.SW1020 06:00
PROVIDERS: PCP Student in an Organized Health Care Education/Training Program; Referring Provider Internal Medicine; Visit Provider Internal Medicine
DX: Z94.0 Kidney transplant status (principal)
CPT/HCPCS: 36415; 80051; 80076; 80197; 82310; 82565; 82947; 83735; 84100; 84520; 85025; 85610; 85730

== ENCOUNTER → 2021-05-16 | Outpatient (REF) | payer SELFPAY ==
[2021-05-16 10:00] LABS: Absolute Lymphocyte Count 1.08 X10^3/uL (0.83-4.51); Absolute Neutrophil Count 6.7 X10^3/uL (2.0-7.7); Basophil# 0.07 X10^3/uL; Basophil% 0.8 % (0-1); Eosinophil# 0.19 X10^3/uL; Eosinophils% 2.2 % (0-5); Hemoglobin 11.3 g/dL (13.0-16.5); Lymphocyte # 1.08 X10^3/ul (0.83-4.51); Lymphocyte % 12.5 % (19-41); Mean Corp Hgb Conc 32.3 g/dL (32-36); Mean Corpuscular Hgb 30.7 pg (27.0-32.0); Mean Corpuscular Volume 95.1 fL (80-94); Mean Platelet Vol. 10.5 fl (6.2-12.0); Monocyte# 0.58 X10^3/uL; Monocyte% 6.7 % (0-10); NRBC Flagged by Analyzer 0 % (0-5); Neutrophil % 77.2 % (47-70); Platelet Count 229 K/mm3 (150-450); RBC Distribution Width CV 14.2 % (11.6-14.6); RBC Distribution Width SD 49.1 fl (35.1-43.9); Red Blood Count 3.68 M/mm3 (4.6-6.2); White Blood Count 8.7 K/mm3 (4.4-11.0)
[2021-05-16 10:08] LABS: Prothrombin Time (Protime)PT. 12.8 SECONDS (11.7-14.9)
[2021-05-16 10:09] LABS: Partial Thromboplast Time 28.6 Seconds (24.1-36.2)
[2021-05-16 10:39] LABS: AST(SGOT) 16 U/L (15-37); Alanine Aminotransfer ALT/SGPT 23 U/L (16-61); Albumin, Serum 3.1 g/dL (3.2-5.0); Alkaline Phosphatase 134 U/L (45-117); Anion Gap 6 (5-15); BUN 28 mg/dL (7-18); Bilirubin, Direct 0.08 mg/dL (0.00-0.30); Calcium,Total 10.8 mg/dL (8.5-10.1); Chloride 112 mmol/L (98-107); Creatinine, Serum 2.52 mg/dL (0.70-1.30); EST Glomerular Filtration Rate 28 mL/min (>60); Est Glom Filt Rate - Afr Amer 34 mL/min (>60); Globulin 2.9 g/dL (2.2-4.2); Glucose 128 mg/dL (74-106); Phosphorus 2.5 mg/dL (2.5-4.9); Potassium 5.1 mmol/L (3.5-5.1); Sodium Level 137 mmol/L (136-145)
[2021-05-20 16:01] LABS: MG Sendout 1.9 mg/dL (1.6-2.3); Tacrolimus (FK506) 9.3 ng/mL (2.0-20.0)
== END | disposition home or self-care (01) ==
LOC: OLS.SW1020 06:00
PROVIDERS: PCP Student in an Organized Health Care Education/Training Program; Visit Provider Internal Medicine
DX: Z94.0 Kidney transplant status (principal)
CPT/HCPCS: 36415; 80051; 80076; 80197; 82310; 82565; 82947; 83735; 84100; 84520; 85025; 85610; 85730

== ENCOUNTER → 2021-05-19 | Outpatient (REF) | payer SELFPAY ==
[2021-05-19 09:28] LABS: Absolute Lymphocyte Count 1.24 X10^3/uL (0.83-4.51); Absolute Neutrophil Count 5.6 X10^3/uL (2.0-7.7); Basophil# 0.08 X10^3/uL; Eosinophil# 0.26 X10^3/uL; Eosinophils% 3.4 % (0-5); Hematocrit 36.2 % (40-54); Hemoglobin 11.3 g/dL (13.0-16.5); Lymphocyte # 1.24 X10^3/ul (0.83-4.51); Mean Corp Hgb Conc 31.2 g/dL (32-36); Mean Corpuscular Hgb 30.5 pg (27.0-32.0); Mean Corpuscular Volume 97.8 fL (80-94); Mean Platelet Vol. 10.4 fl (6.2-12.0); Monocyte# 0.52 X10^3/uL; Monocyte% 6.7 % (0-10); NRBC Flagged by Analyzer 0 % (0-5); Neutrophil # 5.61 X10^3/uL (2.7-7.7); Neutrophil % 72.4 % (47-70); Platelet Count 220 K/mm3 (150-450); RBC Distribution Width CV 14.5 % (11.6-14.6); RBC Distribution Width SD 51.8 fl (35.1-43.9); White Blood Count 7.8 K/mm3 (4.4-11.0)
[2021-05-19 09:41] LABS: AST(SGOT) 13 U/L (15-37); Alanine Aminotransfer ALT/SGPT 23 U/L (16-61); Alkaline Phosphatase 129 U/L (45-117); Anion Gap 3 (5-15); BUN 25 mg/dL (7-18); BUN/Creat Ratio 9.7 RATIO (10-20); Bilirubin, Direct 0.16 mg/dL (0.00-0.30); Calcium,Total 10.4 mg/dL (8.5-10.1); Chloride 112 mmol/L (98-107); Creatinine, Serum 2.59 mg/dL (0.70-1.30); EST Glomerular Filtration Rate 27 mL/min (>60); Est Glom Filt Rate - Afr Amer 33 mL/min (>60); Glucose 86 mg/dL (74-106); International Normalized Ratio 1.1; Magnesium 2.1 mg/dL (1.6-2.6); Phosphorus 2.2 mg/dL (2.5-4.9); Potassium 4.7 mmol/L (3.5-5.1); Prothrombin Time (Protime)PT. 13.2 SECONDS (11.7-14.9); Sodium Level 138 mmol/L (136-145)
[2021-05-19 09:42] LABS: Partial Thromboplast Time 28.5 Seconds (24.1-36.2)
[2021-05-24 14:27] LABS: Tacrolimus (FK506) 7.9 ng/mL (2.0-20.0)
== END | disposition home or self-care (01) ==
LOC: OLS.SW1020 06:45
PROVIDERS: PCP Student in an Organized Health Care Education/Training Program; Visit Provider Internal Medicine
DX: Z94.0 Kidney transplant status (principal)
CPT/HCPCS: 36415; 80048; 80076; 80197; 83735; 84100; 85025; 85610; 85730

== ENCOUNTER → 2021-05-23 | Outpatient (REF) | payer SELFPAY ==
[2021-05-23 09:08] LABS: Absolute Lymphocyte Count 1.35 X10^3/uL (0.83-4.51); Basophil# 0.05 X10^3/uL; Basophil% 0.7 % (0-1); Eosinophil# 0.29 X10^3/uL; Hematocrit 35.3 % (40-54); Hemoglobin 11.5 g/dL (13.0-16.5); Lymphocyte # 1.35 X10^3/ul (0.83-4.51); Lymphocyte % 18.5 % (19-41); Mean Corp Hgb Conc 32.6 g/dL (32-36); Mean Corpuscular Hgb 31.8 pg (27.0-32.0); Mean Corpuscular Volume 97.5 fL (80-94); Mean Platelet Vol. 10.6 fl (6.2-12.0); Monocyte# 0.58 X10^3/uL; NRBC Flagged by Analyzer 0 % (0-5); Neutrophil # 4.96 X10^3/uL (2.7-7.7); Neutrophil % 68.1 % (47-70); Platelet Count 212 K/mm3 (150-450); RBC Distribution Width CV 14.3 % (11.6-14.6); RBC Distribution Width SD 51.9 fl (35.1-43.9); Red Blood Count 3.62 M/mm3 (4.6-6.2); White Blood Count 7.3 K/mm3 (4.4-11.0)
[2021-05-23 09:25] LABS: International Normalized Ratio 1.1; Partial Thromboplast Time 28.4 Seconds (24.1-36.2); Prothrombin Time (Protime)PT. 13.3 SECONDS (11.7-14.9)
[2021-05-23 09:31] LABS: AST(SGOT) 10 U/L (15-37); Alanine Aminotransfer ALT/SGPT 22 U/L (16-61); Alkaline Phosphatase 111 U/L (45-117); Anion Gap 6 (5-15); BUN 33 mg/dL (7-18); Bilirubin, Direct 0.09 mg/dL (0.00-0.30); Calcium,Total 10.2 mg/dL (8.5-10.1); Chloride 112 mmol/L (98-107); Creatinine, Serum 2.59 mg/dL (0.70-1.30); EST Glomerular Filtration Rate 27 mL/min (>60); Est Glom Filt Rate - Afr Amer 33 mL/min (>60); Globulin 2.8 g/dL (2.2-4.2); Glucose 98 mg/dL (74-106); Phosphorus 2.5 mg/dL (2.5-4.9); Potassium 4.7 mmol/L (3.5-5.1); Protein, Total 5.8 g/dL (6.4-8.2); Sodium Level 139 mmol/L (136-145)
[2021-05-27 16:40] LABS: Tacrolimus (FK506) 6.4 ng/mL (2.0-20.0)
== END | disposition home or self-care (01) ==
LOC: OLS.SW1020 04:00
PROVIDERS: PCP Student in an Organized Health Care Education/Training Program; Referring Provider Internal Medicine; Visit Provider Internal Medicine
DX: Z94.0 Kidney transplant status (principal)
CPT/HCPCS: 36415; 80051; 80076; 80197; 82310; 82565; 82947; 83735; 84100; 84520; 85025; 85610; 85730

== ENCOUNTER → 2021-05-28 | Outpatient (REF) | payer OTHER, SELFPAY ==
[2021-05-28 09:11] LABS: Hematocrit 35.9 % (40-54); Hemoglobin 11.8 g/dL (13.0-16.5); Mean Corp Hgb Conc 32.9 g/dL (32-36); Mean Corpuscular Hgb 31.5 pg (27.0-32.0); Mean Corpuscular Volume 95.7 fL (80-94); Mean Platelet Vol. 10.2 fl (6.2-12.0); Platelet Count 200 K/mm3 (150-450); RBC Distribution Width CV 14.3 % (11.6-14.6); RBC Distribution Width SD 50.4 fl (35.1-43.9); Red Blood Count 3.75 M/mm3 (4.6-6.2); White Blood Count 6.5 K/mm3 (4.4-11.0)
[2021-05-28 09:22] LABS: AST(SGOT) 10 U/L (15-37); Alanine Aminotransfer ALT/SGPT 23 U/L (16-61); Albumin, Serum 2.9 g/dL (3.2-5.0); Alkaline Phosphatase 102 U/L (45-117); Anion Gap 3 (5-15); BUN 26 mg/dL (7-18); Bilirubin, Direct 0.14 mg/dL (0.00-0.30); Calcium,Total 10.2 mg/dL (8.5-10.1); Chloride 113 mmol/L (98-107); Creatinine, Serum 2.46 mg/dL (0.70-1.30); EST Glomerular Filtration Rate 29 mL/min (>60); Est Glom Filt Rate - Afr Amer 35 mL/min (>60); Globulin 2.8 g/dL (2.2-4.2); Glucose 96 mg/dL (74-106); Phosphorus 2.4 mg/dL (2.5-4.9); Potassium 4.8 mmol/L (3.5-5.1); Protein, Total 5.7 g/dL (6.4-8.2); Sodium Level 139 mmol/L (136-145)
[2021-05-28 09:23] LABS: Partial Thromboplast Time 28.7 Seconds (24.1-36.2)
== END | disposition home or self-care (01) ==
LOC: OLS.SW1020 05:00
PROVIDERS: PCP Student in an Organized Health Care Education/Training Program; Visit Provider Internal Medicine
DX: Z94.0 Kidney transplant status (principal)
CPT/HCPCS: 36415; 80051; 80076; 80197; 82310; 82565; 82947; 83735; 84100; 84520; 85027; 85610; 85730

== ENCOUNTER → 2021-05-30 | Outpatient (REF) | payer OTHER, SELFPAY ==
[2021-05-30 08:00] LABS: Absolute Lymphocyte Count 1.04 X10^3/uL (0.83-4.51); Absolute Neutrophil Count 4.5 X10^3/uL (2.0-7.7); Basophil# 0.05 X10^3/uL; Basophil% 0.8 % (0-1); Eosinophil# 0.15 X10^3/uL; Eosinophils% 2.4 % (0-5); Hematocrit 35.7 % (40-54); Hemoglobin 11.8 g/dL (13.0-16.5); Lymphocyte # 1.04 X10^3/ul (0.83-4.51); Lymphocyte % 16.5 % (19-41); Mean Corp Hgb Conc 33.1 g/dL (32-36); Mean Corpuscular Hgb 31.8 pg (27.0-32.0); Mean Corpuscular Volume 96.2 fL (80-94); Mean Platelet Vol. 10.6 fl (6.2-12.0); Monocyte# 0.47 X10^3/uL; Monocyte% 7.4 % (0-10); NRBC Flagged by Analyzer 0 % (0-5); Neutrophil # 4.53 X10^3/uL (2.7-7.7); Neutrophil % 71.8 % (47-70); Platelet Count 203 K/mm3 (150-450); RBC Distribution Width CV 14.2 % (11.6-14.6); RBC Distribution Width SD 50.4 fl (35.1-43.9); Red Blood Count 3.71 M/mm3 (4.6-6.2); White Blood Count 6.3 K/mm3 (4.4-11.0)
[2021-05-30 08:19] LABS: International Normalized Ratio 1.1; Prothrombin Time (Protime)PT. 13.3 SECONDS (11.7-14.9)
[2021-05-30 08:20] LABS: AST(SGOT) 12 U/L (15-37); Alanine Aminotransfer ALT/SGPT 23 U/L (16-61); Albumin, Serum 2.9 g/dL (3.2-5.0); Alkaline Phosphatase 105 U/L (45-117); Anion Gap 4 (5-15); BUN 28 mg/dL (7-18); Bilirubin, Direct 0.12 mg/dL (0.00-0.30); Calcium,Total 10.4 mg/dL (8.5-10.1); Chloride 112 mmol/L (98-107); Creatinine, Serum 2.65 mg/dL (0.70-1.30); EST Glomerular Filtration Rate 26 mL/min (>60); Est Glom Filt Rate - Afr Amer 32 mL/min (>60); Globulin 2.8 g/dL (2.2-4.2); Glucose 121 mg/dL (74-106); Magnesium 1.9 mg/dL (1.6-2.6); Partial Thromboplast Time 29.7 Seconds (24.1-36.2); Potassium 4.7 mmol/L (3.5-5.1); Protein, Total 5.7 g/dL (6.4-8.2); Sodium Level 138 mmol/L (136-145)
[2021-06-02 18:49] LABS: Tacrolimus (FK506) 8.8 ng/mL (2.0-20.0)
== END | disposition home or self-care (01) ==
LOC: OLS.SW1020 04:00
PROVIDERS: PCP Student in an Organized Health Care Education/Training Program; Referring Provider Internal Medicine; Visit Provider Internal Medicine
DX: Z94.0 Kidney transplant status (principal)
CPT/HCPCS: 36415; 80051; 80076; 80197; 82310; 82565; 82947; 83735; 84100; 84520; 85025; 85610; 85730

== ENCOUNTER 2021-06-09 11:02 | Emergency (ER) | payer OTHER, SELFPAY ==
[2021-06-09 11:05] VITALS: BP 187/101; PULSE 85; RESP 14; TEMP 36.4; O2SAT 100; BMI 34.7
[2021-06-09 11:21] LABS: Bedside Glucose 213 mg/dL (74-106)
--- NOTE | 2021-06-09 11:50 | EX.ED.DYSGE1 ---
HPI <AUDIE Madison - Last Filed: 06/09/21 12:32> History of Present Illness Chief Complaint: Hyperglycemia Narrative Narrative: 60-year-old male with PMH of DM1 on an insulin pump, kidney transplant presents with concerns for malfunctioning insulin pump. He was previously on dialysis due to diabetic nephropathy and had a kidney transplant at [facility] on 03/26/2021. He was in rehab for several months and is now staying at his parents for the last 2 weeks. He states normally his insulin pump is programmed by his family law paralegal Dr. Low and he does not have to do anything. His A1c's recently were all very well controlled around 5.0. However, over the last week his blood sugars have been in the 400-500s and he does not think it is operating properly. He has not had an endocrinology appointment within the last few months but when he called them today they recommended he come to the ED. He reports he has been eating and drinking with no nausea or vomiting. No chest pain or shortness of breath. No abdominal pain or diarrhea. However he states he has been feeling very weak overall since his surgery and did not improve in rehab. He states he has been intermittently confused. PFS <AUDIE Madison - Last Filed: 06/09/21 12:32> [facility] Medical History (Updated 06/09/21 @ 13:[address] Jignesh Dinero MD) Arthritis Atherosclerosis of [place] coronary artery of [place] heart without angina pectoris Cardiology follow-up encounter Cataracts, bilateral CKD (chronic kidney disease) stage 4, GFR 15-29 ml/min CPAP (continuous positive airway pressure) dependence Diabetes type 1, uncontrolled Diabetic polyneuropathy associated with type 1 diabetes mellitus DM2 (diabetes mellitus, type 2) Essential hypertension Former smoker Heart disease High cholesterol History of renal disease History of stress test Hyperlipidemia Incomplete right bundle branch block Insulin dependent diabetes mellitus Kidney disease Malfunction of arteriovenous dialysis fistula NORBERTO (obstructive sleep apnea) Pancreatitis Prostate disease Sleep apnea Stroke Tobacco abuse Type 1 diabetes Uncontrolled type 1 diabetes mellitus with ESRD (end-stage renal disease) Uses wheelchair Walker as ambulation aid Wears dentures Wears glasses Home Medications clopidogrel 75 mg PO DAILY 01/26/13 [History Last Taken 04/05/20] calcitriol 0.5 mcg capsule 0.5 mcg PO DAILY 06/16/19 [History Last Taken 04/05/20] albuterol sulfate 1 - 2 puff INHALATION Q6H PRN PRN 07/24/19 [History Last Taken 10/27/19] BP cuff #1 ea 11/27/19 [Rx Last Taken Unknown] pen needle, diabetic 32 gauge x #400 ea 02/12/20 [Rx Last Taken Unknown] vit B comp no.3-wktvd-I-biotin 1 ea PO DAILY 03/11/20 [History Last Taken 04/05/20] tamsulosin 0.4 mg capsule 0.4 mg PO QHS cap 04/22/20 [History Last Taken Unknown] blood-glucose sensor #9 ea 08/26/20 [Rx Last Taken Unknown] blood-glucose transmitter #1 ea 08/26/20 [Rx Last Taken Unknown] blood sugar diagnostic #150 ea 11/17/20 [Rx Last Taken Unknown] insulin aspart U-100 100 unit/mL subcutaneous solution 120 unit SC DAILY #110 ml 12/13/20 [Rx Last Taken Unknown] atorvastatin 40 mg tablet 40 mg PO QHS #90 tab 03/04/21 [Rx Last Taken Unknown] cholecalciferol (vitamin D3) [Vitamin D3] 5,000 unit PO DAILY 06/08/21 [History Last Taken Unknown] moxifloxacin 2 drp EACH EYE BID 06/08/21 [History Last Taken Unknown] mycophenolate mofetil 1,000 mg PO BID 06/08/21 [History Last Taken Unknown] sofosbuvir-velpatasvir [Epclusa] 1 tab PO DAILY 06/08/21 [History Last Taken Unknown] tacrolimus 3 mg PO BID 06/08/21 [History Last Taken Unknown] Allergy/AdvReac Type Severity Reaction Status Date / Time No Known Allergies Allergy Verified 06/09/21 11:08 Family History Mother Diabetes Thyroid disorder Hypertension Hyperlipidemia Surgical History Arteriovenous fistula for hemodialysis in place, primary H/O cardiac catheterization History of bilateral cataract extraction History of coronary artery stent placement (04/21/11) History of kidney transplant (~03/2021) history of peritoneal catheter insertion (~03/2020) Problem with dialysis access (04/05/20) Social History (Reviewed 05/30/21 @ 08:07 by Lucila Fried Smoking Status: Former smoker how long ago did patient quit smokin months alcohol intake: current alcohol intake frequency: holidays/special occasions only substance use type: does not use caffeine: Yes Type: coffee Number of servings: 2 ROS <AUDIE Madison - Last Filed: 06/09/21 12:32> ROS ED Constitutional Constitutional ED: Denies chills or fever(s) Eyes Eyes: Denies blurry vision ENT ENT ED: Denies rhinorrhea Cardiovascular Cardiovascular: Denies chest pain or palpitations Respiratory/Chest Respiratory/Chest: Denies cough or dyspnea Gastrointestinal Gastrointestinal: Denies abdominal pain, diarrhea, melena, nausea or vomiting Genitourinary Genitourinary ED: Denies dysuria Musculoskeletal Musculoskeletal: Denies myalgias Integumentary Denies rash Neurologic Neurologic: Denies headache(s) EXAM <AUDIE Madison - Last Filed: 06/09/21 12:32> Physical Exam Narrative Exam Narrative: CONST: Patient sitting in no acute distress. EYES: Normal inspection. ENT: Normal inspection, moist mucous membranes. NECK: Normal inspection. RESP: No respiratory distress, CTAB. CVS: Regular rate and rhythm, no murmur, no gallop. ABD: Soft and nontender, no guarding or rebound, right lower quadrant incision from kidney transplant is healing well with no dehiscence or signs of infection. Peritoneal dialysis catheter is in place in left lower quadrant. SKIN: Color normal, no rash, warm, dry, intact. EXTREMITIES: Normal appearance, no pedal edema. NEURO: Oriented x4. PSYCH: Normal affect. Const Vital Signs: 06/09/21 11:05 06/09/21 11:13 Temperature 97.6 F L Temperature Source Temporal Pulse Rate 85 Respiratory Rate 14 Respiratory Effort Normal Respiratory Pattern Normal Blood Pressure 187/101 H Blood Pressure Mean 129 Pulse Ox 100 Oxygen Delivery Method Room Air <Dr. Jignesh Dinero MD - Last Filed: 06/09/21 13:15> Physical Exam Const Vital Signs: 06/09/21 11:05 06/09/21 11:13 Temperature 97.6 F L Temperature Source Temporal Pulse Rate 85 Respiratory Rate 14 Respiratory Effort Normal Respiratory Pattern Normal Blood Pressure 187/101 H Blood Pressure Mean 129 Pulse Ox 100 Oxygen Delivery Method Room Air MDM <AUDIE Madison - Last Filed: 06/09/21 12:32> [facility] Narrative Medical decision making narrative: Patient with history of type 1 diabetes on an insulin pump presents with concern for pump malfunction. He appears well and nontoxic. JANET elevated at 181/107, otherwise unremarkable vital signs. On exam he appears well-hydrated. Heart is regular rate and rhythm. Lungs clear to auscultation. Abdomen soft and nontender. Kidney transplant incision appears to be healing well with no evidence of infection. Patient's family member was concerned he has been intermittently confused but here he is alert and oriented x4 with a nonfocal neurological exam. Labs were obtained and CBC is unremarkable. BMP shows glucose of 226 with normal electrolytes and anion gap. Creatinine of 2.99 is unchanged from previous. I spoke with his family law paralegal, Dr. Troy Low, who recommended to stop using his insulin pump. He should take his NovoLog meal boluses as prescribed and 36 units of Levemir once per day. She states his pump healthcare representative left him a message so he should return this call and they will help him troubleshoot. She will see him in the office later this week if this does not resolve the issue. Patient was agreeable with this plan and discharged in stable condition. Diagnoses 1. Insulin pump malfunction 2. Diabetic hyperglycemia 3. CKD, history of kidney transplant Lab Data Labs: Laboratory Results - last 24 hr 06/09/21 06/09/21 06/09/21 11:16 11:45 11:45 WBC 7.6 RBC 3.97 L Hgb 12.5 L Hct 38.4 L MCV 96.7 H MCH 31.5 MCHC 32.6 RDW Std Deviation 50.4 H RDW Coeff of Kindra 14.1 Plt Count 185 MPV 10.8 Immature Gran % (Auto) 1.200 H Neut % (Auto) 72.7 H Lymph % (Auto) 15.3 L [place] % (Auto) 8.3 Eos % (Auto) 1.7 Baso % (Auto) 0.8 Absolute Neuts (auto) 5.5 Absolute Lymphs (auto) 1.16 Nucleated RBC % 0 Sodium 136 Potassium 4.8 Chloride 107 Carbon Dioxide 24.0 Anion Gap 5 BUN 39 H Creatinine 2.99 H Estim Creat Clear Calc 27.81 Est GFR (MDRD) Af Amer 28 L Est GFR (MDRD) Non-Af 23 L BUN/Creatinine Ratio 13.0 Glucose 226 H Calcium 10.7 H POC Glucose 213 H <Dr. Jignesh Dinero MD - Last Filed: 06/09/21 13:15> MDM MDM Narrative Medical decision making narrative: Seen and evaluated independently and in conjunction with physician switchboard operator assistant. Agree with notes above unless documented otherwise. Exam: Patient neurologically intact, keenly alert and oriented x3. See documentation above. Patient's blood sugars under control now, he does have an elevated blood pressure which would advise that he have rechecked in the future, and he apparently missed a call from the pump healthcare representative and we advised that he call them back in order to get his pump functioning as soon as possible. In the meantime, he confirms that he does have Levemir and NovoLog at home, he was given appropriate instructions to use those until the pump is fixed, and advised to call his family law paralegal with any issues with regards to his blood sugar medications and we discussed reasons to return to the ER. All questions answered at the bedside. Lab Data Attestation: I reviewed the patient's lab results. Labs: Laboratory Results - last 24 hr 06/09/21 06/09/21 06/09/21 11:16 11:45 11:45 WBC 7.6 RBC 3.97 L Hgb 12.5 L Hct 38.4 L MCV 96.7 H MCH 31.5 MCHC 32.6 RDW Std Deviation 50.4 H RDW Coeff of Kindra 14.1 Plt Count 185 MPV 10.8 Immature Gran % (Auto) 1.200 H Neut % (Auto) 72.7 H Lymph % (Auto) 15.3 L [place] % (Auto) 8.3 Eos % (Auto) 1.7 Baso % (Auto) 0.8 Absolute Neuts (auto) 5.5 Absolute Lymphs (auto) 1.16 Nucleated RBC % 0 Sodium 136 Potassium 4.8 Chloride 107 Carbon Dioxide 24.0 Anion Gap 5 BUN 39 H Creatinine 2.99 H Estim Creat Clear Calc 27.81 Est GFR (MDRD) Af Amer 28 L Est GFR (MDRD) Non-Af 23 L BUN/Creatinine Ratio 13.0 Glucose 226 H Calcium 10.7 H POC Glucose 213 H Discharge Plan Triage Chief Complaint: Hyperglycemia ED Provider: Catalina Frankel Dx/Rx/DC Orders Clinical Impression: Complication of insulin pump, Hyperglycemia, Uncontrolled type 1 diabetes mellitus with ESRD (end-stage renal disease) Instructions: Diabetes Insulin Pump Ch, ED Diabetic Hyperglycemia Prescriptions: No Action calcitriol 0.5 mcg capsule 0.5 mcg PO DAILY RF: 0 tamsulosin 0.4 mg capsule 0.4 mg PO QHS RF: 0 (DME) pen needle, diabetic [BD Ultra-Fine Cici Pen Needle] 32 gauge x 5/32 needle See Rx Instructions .ROUTE .MEDSUPPLY Qty: 400 RF: 2 insulin aspart U-100 [Novolog U-100 Insulin aspart] 100 unit/mL solution 120 unit SC DAILY Qty: 110 RF: 3 clopidogrel 75 MG tablet 75 mg PO DAILY RF: 0 albuterol sulfate 1 PUFF inhaler 1 - 2 puff INHALATION Q6H PRN PRN (Reason: Wheezing) RF: 0 vit B comp no.5-sfolq-W-biotin 1 EACH tablet 1 ea PO DAILY RF: 0 mycophenolate mofetil 250 mg capsule 1,000 mg PO BID RF: 0 tacrolimus 1 mg capsule 3 mg PO BID RF: 0 moxifloxacin 0.5 % drops 2 drp EACH EYE BID RF: 0 cholecalciferol (vitamin D3) [Vitamin D3] 125 mcg (5,000 unit) tablet 5,000 unit PO DAILY RF: 0 sofosbuvir-velpatasvir [Epclusa] 400-100 mg tablet 1 tab PO DAILY RF: 0 (DME) BP cuff Qty: 1 RF: 0 (DME) Dexcom G6 Sensor Device See Rx Instructions .ROUTE .MEDSUPPLY Qty: 9 RF: 1 (DME) Dexcom G6 Transmitter Device See Rx Instructions .ROUTE .MEDSUPPLY Qty: 1 RF: 1 (DME) Accu-Chek Katey Plus test strp Strip See Rx Instructions .ROUTE .MEDSUPPLY Qty: 150 RF: 8 atorvastatin 40 mg tablet 40 mg PO QHS Qty: 90 RF: 3 Primary Care Provider: Handy Henderson Referrals: Handy Henderson DO [Primary Care Provider] - Activity Restrictions/Additional Instructions: Dr. Low wants you to stop using your insulin pump. Take Levemir 36 units once a day. She also said to take your home insulin boluses prior to each meal as prescribed. This is either Humulin or NovoLog?check your prescription. The insulin pump healthcare representative left you a message on your personal cell phone. Please call them back and they will help you troubleshoot the pump issues. If it is not resolved with healthcare representative, call Dr. Low's office for a follow-up appointment next week. Disposition Disposition: Home, Self Care
[2021-06-09 11:56] LABS: Absolute Lymphocyte Count 1.16 X10^3/uL (0.83-4.51); Absolute Neutrophil Count 5.5 X10^3/uL (2.0-7.7); Basophil# 0.06 X10^3/uL; Basophil% 0.8 % (0-1); Eosinophil# 0.13 X10^3/uL; Eosinophils% 1.7 % (0-5); Hematocrit 38.4 % (40-54); Hemoglobin 12.5 g/dL (13.0-16.5); Lymphocyte # 1.16 X10^3/ul (0.83-4.51); Lymphocyte % 15.3 % (19-41); Mean Corp Hgb Conc 32.6 g/dL (32-36); Mean Corpuscular Hgb 31.5 pg (27.0-32.0); Mean Corpuscular Volume 96.7 fL (80-94); Mean Platelet Vol. 10.8 fl (6.2-12.0); Monocyte# 0.63 X10^3/uL; Monocyte% 8.3 % (0-10); NRBC Flagged by Analyzer 0 % (0-5); Neutrophil # 5.52 X10^3/uL (2.7-7.7); Neutrophil % 72.7 % (47-70); Platelet Count 185 K/mm3 (150-450); RBC Distribution Width CV 14.1 % (11.6-14.6); RBC Distribution Width SD 50.4 fl (35.1-43.9); Red Blood Count 3.97 M/mm3 (4.6-6.2); White Blood Count 7.6 K/mm3 (4.4-11.0)
[2021-06-09 12:07] LABS: Anion Gap 5 (5-15); BUN 39 mg/dL (7-18); Calcium,Total 10.7 mg/dL (8.5-10.1); Chloride 107 mmol/L (98-107); Creatinine, Serum 2.99 mg/dL (0.70-1.30); EST Glomerular Filtration Rate 23 mL/min (>60); Est Glom Filt Rate - Afr Amer 28 mL/min (>60); Estimated Creatinine Clearance 27.81 ml/min; Glucose 226 mg/dL (74-106); Potassium 4.8 mmol/L (3.5-5.1); Sodium Level 136 mmol/L (136-145)
[2021-06-09 13:05] VITALS: BP 142/76; PULSE 78; RESP 14; TEMP 36.9; O2SAT 99
--- NOTE | 2021-06-09 14:12 | CM.ED ---
EVE THAKKAR Note: S/w patient and patient Nalini at bedside re:concerns with getting assistance in the home. Agreeable to for PT, SN, Aide and CCn referral. CCN pamphlet provided to along with HH list. FMLA paperwork packet provided to patient as she will try to get FMLA extended to cloth printing utility worker. Patient was staying with his parents [place] [facility] after Kidney transplant- was at [facility] for a couple months, however parents unable to assist with patient care needs appropriately per . plan to return home with at [address] [place] [id number] and will stay on the first fl and plan to get a BSC. 1344- Called [facility] HH, s/w Charley and place HH order and will have document review specialist and call this marketing copywriter back. 1357- S/w Ismael at [facility] and states that patient is a candidate and to place order and will touch base with the HH and patient/ to SOC after HH. Return call from Charley and will accept patient with SOC 3.11.22 and will call to coordinate visit. and patient updated on this. Primary nurse updated. No further questions or concerns. This marketing copywriter also informed to reach out to his Nephro office to see if they have a CM or SW that can further assist with their needs. Discussed checking into seeing if they qualify for [employer] to see if they can get Waiver for Aide assistance, also advised to see if they have purchased middle or intermediate school principal care with their insurance to see if they can provide an Aide. Discussed providing a private pay list but not interested at this time d/t finances. ARIANE Nunez
[2021-06-10 07:31] LABS: Bedside Glucose 374 mg/dL (74-106)
== END 2021-06-09 14:19 | disposition home or self-care (01) ==
PROVIDERS: Emergency Provider Physician Assistant; PCP Student in an Organized Health Care Education/Training Program; Visit Provider Physician Assistant
DX: T85.614A Breakdown (mechanical) of insulin pump, initial encounter (principal); E10.65 Type 1 diabetes mellitus with hyperglycemia; E10.22 Type 1 diabetes mellitus with diabetic chronic kidney disease; E10.42 Type 1 diabetes mellitus with diabetic polyneuropathy; I12.0 Hypertensive chronic kidney disease with stage 5 chronic kidney disease or end stage renal disease; N18.6 End stage renal disease; Z79.4 Long term (current) use of insulin; Z87.891 Personal history of nicotine dependence; E78.00 Pure hypercholesterolemia, unspecified; E78.5 Hyperlipidemia, unspecified; I25.10 Atherosclerotic heart disease of native coronary artery without angina pectoris; Y82.9 Unspecified medical devices associated with adverse incidents
CPT/HCPCS: 80048; 82962; 85025; 99283

== ENCOUNTER 2021-06-09 22:00 | Observation (INO) | payer OTHER, MEDICARE, SELFPAY ==
[2021-06-09 22:01] VITALS: BP 152/90; PULSE 85; RESP 18; TEMP 36.6; O2SAT 99; BMI 35.8
--- NOTE | 2021-06-09 22:26 | EX.ED.DYSGE1 ---
HPI <Dr. Cesar Reyna MD - Last Filed: 06/11/21 07:42> History of Present Illness Chief Complaint: Weakness Detail of Chief Complaint: Weakness, malfunctioning insulin pump, elevated creatinine status post lolly Informant: patient and spouse/S.O. Onset/Context/Timing Onset: - (Uncertain read HPI) Context: Gradual Onset Timing: Continuous Quality: Generalized weakness, decreased p.o. intake, hyperglycemia Location: Not applicable Worsened by: Per patient poor p.o. intake while at [facility] Relieved by: Nothing Associated Symptoms Associated Symptoms: Decreased responsiveness, elevated blood sugar and abnormal lab Narrative Narrative: Patient is a type I diabetic. He had problems with hyperglycemia and was seen earlier. The note from the providers for visit earlier today was reviewed. Patient's creatinine is unchanged from prior according to Dr. Low the donor floor technician. Patient presents because he was told to come here or go to [facility] because of abnormal lab. They are unable to tell me what his baseline creatinine was however it was clearly documented this is unchanged from prior. states they were told to go to [facility] or come here. They do not know why. She then informed that there is an abnormal test that the [facility] nephrology team ordered. He has blood work on Sunday and Sunday. The nor the patient are good informant. He states he did not call back the loss prevention representative for the insulin pump. states that he did not know the cause for the malfunction. He was placed on an insulin regimen. Patient attributes his problems to poor p.o. intake when he was at [facility]. He has not been in a [facility] facility for 2 weeks. Patient states he does not feel well. He is not disoriented but he is forgetful. When arrived she brought his meds. His meds that were filled at [facility] are not back with meds that he was given when he was discharged from [facility]. Patient has been with his parents because works. There apparently was a 3 possibly 4-day period where there was no supervision of his meds and there is concerned that he may have taking too many meds and the medication vile to treat the hep C is empty. According to the the he has been confused since he has been at his parents. He normally is alert and oriented. He is not alert. He knows his name is at the hospital and the month. states there are times where he is disoriented to time. Because there is concern he took medication incorrectly and may be because of his mental status change will speak with the transfer line. Prior similar symptoms: Yes Recent Illness/Hospitalization: Yes [facility] <Dr. Cesar Reyna MD - Last Filed: 06/11/21 07:42> [facility] Medical History Arthritis Atherosclerosis of [place] coronary artery of [place] heart without angina pectoris Cardiology follow-up encounter Cataracts, bilateral CKD (chronic kidney disease) stage 4, GFR 15-29 ml/min CPAP (continuous positive airway pressure) dependence Diabetes type 1, uncontrolled Diabetic polyneuropathy associated with type 1 diabetes mellitus DM2 (diabetes mellitus, type 2) Essential hypertension Former smoker Heart disease High cholesterol History of renal disease History of stress test Hyperlipidemia Incomplete right bundle branch block Insulin dependent diabetes mellitus Kidney disease Malfunction of arteriovenous dialysis fistula NORBERTO (obstructive sleep apnea) Pancreatitis Prostate disease Sleep apnea Stroke Tobacco abuse Type 1 diabetes Uncontrolled type 1 diabetes mellitus with ESRD (end-stage renal disease) Uses wheelchair Walker as ambulation aid Wears dentures Wears glasses Home Medications clopidogrel 75 mg PO DAILY 01/26/13 [History Last Taken 04/05/20] albuterol sulfate 1 - 2 puff INHALATION Q6H PRN PRN 07/24/19 [History Last Taken 10/27/19] BP cuff #1 ea 11/27/19 [Rx Last Taken Unknown] pen needle, diabetic 32 gauge x /32 #400 ea 02/12/20 [Rx Last Taken Unknown] vit B comp no.5-lmwmv-U-biotin 1 ea PO DAILY 03/11/20 [History Last Taken 04/05/20] tamsulosin 0.4 mg capsule 0.4 mg PO QHS cap 04/22/20 [History Last Taken Unknown] blood-glucose sensor #9 ea 08/26/20 [Rx Last Taken Unknown] blood-glucose transmitter #1 ea 08/26/20 [Rx Last Taken Unknown] insulin aspart U-100 100 unit/mL subcutaneous solution 120 unit SC DAILY #110 ml 12/13/20 [Rx Last Taken Unknown] atorvastatin 40 mg tablet 40 mg PO QHS #90 tab 03/04/21 [Rx Last Taken Unknown] cholecalciferol (vitamin D3) [Vitamin D3] 5,000 unit PO DAILY 06/08/21 [History Last Taken Unknown] moxifloxacin 2 drp EACH EYE BID 06/08/21 [History Last Taken Unknown] mycophenolate mofetil 1,000 mg PO BID 06/08/21 [History Last Taken Unknown] sofosbuvir-velpatasvir [Epclusa] 1 tab PO DAILY 06/08/21 [History Last Taken Unknown] tacrolimus 3 mg PO BID 06/08/21 [History Last Taken Unknown] blood sugar diagnostic [Accu-Chek Katey Plus test strp] 06/09/21 [History Last Taken Unknown] famotidine [Acid Controller] 20 mg 06/09/21 [History Last Taken Unknown] calcitriol 0.5 mcg PO QODAY 06/10/21 [History Last Taken Unknown] Allergy/AdvReac Type Severity Reaction Status Date / Time No Known Allergies Allergy Verified 06/09/21 11:08 Family History Mother Diabetes Thyroid disorder Hypertension Hyperlipidemia Surgical History Arteriovenous fistula for hemodialysis in place, primary H/O cardiac catheterization History of bilateral cataract extraction History of coronary artery stent placement (04/21/11) History of kidney transplant (~03/2021) history of peritoneal catheter insertion (~03/2020) Problem with dialysis access (04/05/20) Social History (Updated 06/09/21 @ 22:[address] Cesar Reyna MD) household members: spouse Smoking Status: Former smoker how long ago did patient quit smokin months alcohol intake: current alcohol intake frequency: holidays/special occasions only substance use type: does not use caffeine: Yes Type: coffee Number of servings: 2 ROS <Dr. Cesar Reyna MD - Last Filed: 06/11/21 07:42> ROS ED Constitutional Constitutional ED: Denies chills, fever(s), subjective, sweats or weight loss Eyes Eyes: Denies blurry vision, change in vision or diplopia ENT ENT ED: Denies ear pain, rhinorrhea or sore throat Cardiovascular Cardiovascular: Denies chest pain or palpitations Respiratory/Chest Respiratory/Chest: Denies cough, dyspnea or dyspnea on exertion Gastrointestinal Gastrointestinal: Reports nausea; Denies abdominal pain, diarrhea or vomiting Genitourinary Genitourinary ED: Denies dysuria, hematuria or urinary frequency Musculoskeletal Musculoskeletal: Denies arthralgias, myalgias or neck pain Integumentary Denies Abrasions or rash Neurologic Neurologic: Reports weakness; Denies headache(s) or paresthesias Endocrine Endocrinology: Denies polydipsia, polyphagia or polyuria EXAM <Dr. Cesar Reyna MD - Last Filed: 06/11/21 07:42> Physical Exam Const Vital Signs: 06/10/21 00:28 Pulse Rate 79 Respiratory Rate 16 Blood Pressure 166/91 H Blood Pressure Mean 116 Pulse Ox 97 Oxygen Delivery Method Room Air Positive well nourished, well developed and obese General Appearance ED: well developed and NAD; Negative for cyanotic, diaphoretic or pallor Nutritional Appearance: obese HEENT Reports dry mucous membranes Negative for trauma or tenderness Mouth ED: Yes dry mucous membranes Mouth: dry mucous membranes Eyes PERRL and EOMs intact bilaterally General Eye ED: Negative for scleral icterus Neck supple Resp normal respiratory effort and clear to auscultation bilaterally Cardio regular rate, regular rhythm, S1 normal heart sound, S2 normal heart sound and no murmurs GI normal to inspection, nondistended, normoactive bowel sounds and non-tender Palpation: soft Back/Spine no CVA tenderness Extremity Negative for normal to inspection General Extremety ED: Yes edema; Negative for tenderness General Extremity: edema Neuro oriented x3, CN's II-XII intact bilaterally and no sensory deficits noted Sensorium / Orientation: Negative for alert Motor Exam: strength 5/5 throughout and general weakness Psych Psych Narrative: Affect is flat. Skin no wounds General Skin Exam: Negative for jaundice or pallor Trauma: Negative for abrasion <Dr. Troy Vega DO - Last Filed: 06/10/21 22:38> Physical Exam Const Vital Signs: 06/10/21 00:28 Pulse Rate 79 Respiratory Rate 16 Blood Pressure 166/91 H Blood Pressure Mean 116 Pulse Ox 97 Oxygen Delivery Method Room Air MDM <Dr. Cesar Reyna MD - Last Filed: 06/11/21 07:42> MDM MDM Narrative Medical decision making narrative: Uncertain what needs to be done. Since he was sent in by Darya the renal pharmacy clinical coordinator call has been placed to her to determine what needs to be done and what tests were abnormal. Since states blood sugar was 357 ABG T was ordered and a BMP was ordered. Per earlier note the thought is that his hyperglycemia is due to a malfunctioning insulin pump. Patient [place] for Epclusa is empty. Some of his symptoms may be side effects from overmedication. Spoke with the nurse at the [facility] transfer center. She would like all labs called to her. She recommended admitting patient to our facility and when a bed opens which would not be until tomorrow afternoon or later they would accept him. Will obtain a CT of his head to rule out any intracranial cause for his altered mental status. Creatinine is 3.1. Creatinine on June 06 was 3.44. Case was discussed with hospitalist. The agreement between the hospitalist emergency department is for patient to be in the department 6 hours before they are admitted. Will have evening physician update laboratory results with the transfer nurse at [facility]. The hospitalist asked for the name of the accepting physician and an update with regards to expected bed availability since presently [facility] does not have capacity to accept Fe Villagomez. Lab Data Attestation: I reviewed the patient's lab results. Lab results narrative: BGT is 347. Blood sugar is 363. Patient will receive insulin which will also treat his mild hyperkalemia. Creatinine is about baseline. Creatinine on June 06 was 3.44 per the transfer nurse at [facility]. Labs: Laboratory Results - last 24 hr 06/09/21 06/09/21 06/09/21 22:50 22:50 23:40 WBC 6.7 RBC 3.96 L Hgb 12.2 L Hct 38.1 L MCV 96.2 H MCH 30.8 MCHC 32.0 RDW Std Deviation 50.1 H RDW Coeff of Kindra 14.1 Plt Count 187 MPV 10.8 Immature Gran % (Auto) 1.000 H Neut % (Auto) 69.9 Lymph % (Auto) 16.9 L [place] % (Auto) 9.4 Eos % (Auto) 1.8 Baso % (Auto) 1.0 Absolute Neuts (auto) 4.7 Absolute Lymphs (auto) 1.13 Nucleated RBC % 0 Sodium 136 Potassium 5.3 H Chloride 109 H Carbon Dioxide 19.0 L Anion Gap 8 BUN 42 H Creatinine 3.10 H Estim Creat Clear Calc 26.82 Est GFR (MDRD) Af Amer 27 L Est GFR (MDRD) Non-Af 22 L BUN/Creatinine Ratio 13.5 Glucose 363 H Calcium 10.8 H Ferritin 454 H Total Bilirubin Direct Bilirubin AST ALT Alkaline Phosphatase Lactate Dehydrogenase 240 C-React Prot Ext Range < 2.90 B-Natriuretic Peptide Total Protein Albumin Globulin 06/09/21 06/09/21 23:40 23:40 WBC RBC Hgb Hct MCV MCH MCHC RDW Std Deviation RDW Coeff of Kindra Plt Count MPV Immature Gran % (Auto) Neut % (Auto) Lymph % (Auto) [place] % (Auto) Eos % (Auto) Baso % (Auto) Absolute Neuts (auto) Absolute Lymphs (auto) Nucleated RBC % Sodium Potassium Chloride Carbon Dioxide Anion Gap BUN Creatinine Estim Creat Clear Calc Est GFR (MDRD) Af Amer Est GFR (MDRD) Non-Af BUN/Creatinine Ratio Glucose Calcium Ferritin Total Bilirubin 0.50 Direct Bilirubin 0.17 AST 15 ALT 30 Alkaline Phosphatase 118 H Lactate Dehydrogenase C-React Prot Ext Range B-Natriuretic Peptide 81.2 Total Protein 6.1 L Albumin 3.4 Globulin 2.7 Radiography Diagnostic Testing: Clinical Impression(s) from Imaging Studies Brain CT 06/09/21 23:35 IMPRESSION: Cerebral atrophy and chronic small vessel ischemic changes. No evidence of acute intracranial process. Individualized dose optimization techniques were used for this CT. at 0039 Reported and signed by: Tamir Conner MD Electronically Signed: Tamir Conner MD at 0:38 EST , CT of the head per my review reveals no acute abnormality. <Dr. Troy Vega, DO - Last Filed: 06/10/21 22:38> [facility] Narrative Medical decision making narrative: 0040: Silvia. Patient signed out to me pending CT head results along with results of liver enzymes. Liver enzymes stable ALP 118 no other abnormalities. CKD with stable creatinine. White cell 6.7. CT head results return negative for any acute process. Reported no beds at [facility], they did request update on their labs and studies. Will relay information to accepting facility for evaluation and obtain accepting doctor for plan eventual transfer. 0055: I respoke with transfer line and updated on CT and results of laboratory studies. Covid testing obtained and pending. They are aware of the findings, days states weight may be released 24 hours or more. They are unable to give me an accepting medicine doctor at this time when asked. They state they will call back daily to evaluate the patient. 0200: Patient's Covid antigen returned positive. He has been vaccinated with the booster. Discussed with spouse, states he had Covid early April when he went to the skilled facility mild rhinorrhea and cough at that time. Reported he was given an infusion at the facility x1 dose. Unclear what this was. He recovered from that. That was his first infection. With antigen being positive, likely a new infection possibly causing his fatigue and weakness. He is not hypoxic. This was relayed back to [facility] facility who is aware. Hospitalist, Dr. Ulloa also aware. Additional labs were ordered, D-dimer returned at 0.50, age-adjusted as this is normal. 0600: Still have not heard back from transfer line for bed availability's. They are aware of patient's Covid findings. They reported that it can potentially delay a bed for the patient now. Therefore did discuss with hospitalist Dr. Ulloa for admission to the medical floor. Lab Data Attestation: I reviewed the patient's lab results. Labs: Laboratory Results - last 24 hr 06/09/21 06/09/21 06/09/21 22:50 22:50 23:40 WBC 6.7 RBC 3.96 L Hgb 12.2 L Hct 38.1 L MCV 96.2 H MCH 30.8 MCHC 32.0 RDW Std Deviation 50.1 H RDW Coeff of Kindra 14.1 Plt Count 187 MPV 10.8 Immature Gran % (Auto) 1.000 H Neut % (Auto) 69.9 Lymph % (Auto) 16.9 L [place] % (Auto) 9.4 Eos % (Auto) 1.8 Baso % (Auto) 1.0 Absolute Neuts (auto) 4.7 Absolute Lymphs (auto) 1.13 Nucleated RBC % 0 Sodium 136 Potassium 5.3 H Chloride 109 H Carbon Dioxide 19.0 L Anion Gap 8 BUN 42 H Creatinine 3.10 H Estim Creat Clear Calc 26.82 Est GFR (MDRD) Af Amer 27 L Est GFR (MDRD) Non-Af 22 L BUN/Creatinine Ratio 13.5 Glucose 363 H Calcium 10.8 H Ferritin 454 H Total Bilirubin Direct Bilirubin AST ALT Alkaline Phosphatase Lactate Dehydrogenase 240 C-React Prot Ext Range < 2.90 B-Natriuretic Peptide Total Protein Albumin Globulin 06/09/21 06/09/21 23:40 23:40 WBC RBC Hgb Hct MCV MCH MCHC RDW Std Deviation RDW Coeff of Kindra Plt Count MPV Immature Gran % (Auto) Neut % (Auto) Lymph % (Auto) [place] % (Auto) Eos % (Auto) Baso % (Auto) Absolute Neuts (auto) Absolute Lymphs (auto) Nucleated RBC % Sodium Potassium Chloride Carbon Dioxide Anion Gap BUN Creatinine Estim Creat Clear Calc Est GFR (MDRD) Af Amer Est GFR (MDRD) Non-Af BUN/Creatinine Ratio Glucose Calcium Ferritin Total Bilirubin 0.50 Direct Bilirubin 0.17 AST 15 ALT 30 Alkaline Phosphatase 118 H Lactate Dehydrogenase C-React Prot Ext Range B-Natriuretic Peptide 81.2 Total Protein 6.1 L Albumin 3.4 Globulin 2.7 Radiography Diagnostic Testing: Clinical Impression(s) from Imaging Studies Brain CT 06/09/21 23:35 IMPRESSION: Cerebral atrophy and chronic small vessel ischemic changes. No evidence of acute intracranial process. Individualized dose optimization techniques were used for this CT. at 0039 Reported and signed by: Tamir Conner MD Electronically Signed: Tamir Conner MD at 0:38 EST , EKG Initial EKG: Attestation: I personally reviewed and interpreted this EKG as follows: Comments: Sinus rate of 75, no ST changes isolated T wave inversion in aVL. Nonspecific intraventricular delay. Artifacts noted V3. Discharge Plan Dx/Rx/DC Orders Clinical Impression: Acute alteration in mental status, Essential hypertension, Fatigue, Complication of insulin pump, Hyperglycemia due to type 1 diabetes mellitus, Kidney transplant recipient, Hepatitis C test positive, COVID-19 virus infection Disposition Disposition: Acute Care Hospital [facility] Discharge Date/Time: 06/10/21 07:31
[2021-06-09 23:25] LABS: Anion Gap 8 (5-15); BUN 42 mg/dL (7-18); BUN/Creat Ratio 13.5 RATIO (10-20); Calcium,Total 10.8 mg/dL (8.5-10.1); Chloride 109 mmol/L (98-107); EST Glomerular Filtration Rate 22 mL/min (>60); Est Glom Filt Rate - Afr Amer 27 mL/min (>60); Estimated Creatinine Clearance 26.82 ml/min; Glucose 363 mg/dL (74-106); Potassium 5.3 mmol/L (3.5-5.1); Sodium Level 136 mmol/L (136-145)
--- NOTE | 2021-06-09 23:35 | CT_ITS ---
HISTORY: Acute altered mental status. History of hypertension, diabetes, coronary artery disease, chronic kidney disease. EXAMINATION: CT Head or Brain W/O Contrast Injection TECHNIQUE: Multiple axial images were obtained of the brain without intravenous contrast. A radiation dose optimization technique was used for this scan. IV Contrast dosage and agent: None. COMPARISON: Head CT from 01/07/16 FINDINGS: BRAIN PARENCHYMA: No intra- or extra-axial hemorrhage. No evidence of acute major territorial infarct. Small chronic-appearing bilateral thalamic and left pontine lacunar infarcts. No intracranial mass or mass effect. There is hypoattenuation of the deep cerebral white matter. Chronic involutional changes are noted. CSF SPACES: Prominent cerebral sulci secondary to involutional changes. No hydrocephalus. Basal cisterns are patent. Intracranial atherosclerotic calcifications. CALVARIUM, SKULL BASE, PARANASAL SINUSES AND MASTOID AIR CELLS: Intact calvarium. No acute findings within paranasal sinuses. Mastoid air cells are well pneumatized. ORBITS: No acute findings. ASPECTS Score for Acute Strokes: NA CT/Brain/Head without Contrast IMPRESSION: Cerebral atrophy and chronic small vessel ischemic changes. No evidence of acute intracranial process. Individualized dose optimization techniques were used for this CT. at 0039 Reported and signed by: Tamir Conner MD Electronically Signed: Tamir Conner MD at 0:38 EST ,
[2021-06-09 23:48] LABS: Absolute Lymphocyte Count 1.13 X10^3/uL (0.83-4.51); Absolute Neutrophil Count 4.7 X10^3/uL (2.0-7.7); Basophil# 0.07 X10^3/uL; Eosinophil# 0.12 X10^3/uL; Eosinophils% 1.8 % (0-5); Hematocrit 38.1 % (40-54); Hemoglobin 12.2 g/dL (13.0-16.5); Lymphocyte # 1.13 X10^3/ul (0.83-4.51); Lymphocyte % 16.9 % (19-41); Mean Corpuscular Hgb 30.8 pg (27.0-32.0); Mean Corpuscular Volume 96.2 fL (80-94); Mean Platelet Vol. 10.8 fl (6.2-12.0); Monocyte# 0.63 X10^3/uL; Monocyte% 9.4 % (0-10); NRBC Flagged by Analyzer 0 % (0-5); Neutrophil # 4.65 X10^3/uL (2.7-7.7); Neutrophil % 69.9 % (47-70); Platelet Count 187 K/mm3 (150-450); RBC Distribution Width CV 14.1 % (11.6-14.6); RBC Distribution Width SD 50.1 fl (35.1-43.9); Red Blood Count 3.96 M/mm3 (4.6-6.2); White Blood Count 6.7 K/mm3 (4.4-11.0)
--- NOTE | 2021-06-09 23:48 | EKG12_ITS ---
Test Reason : Blood Pressure : / mmHG Vent. Rate : 075 BPM Atrial Rate : 075 BPM P-R Int : 196 ms QRS Dur : 108 ms QT Int : 398 ms P-R-T Axes : 050 -78 079 degrees QTc Int : 444 ms Normal sinus rhythm Left anterior fascicular block Nonspecific ST abnormality Abnormal ECG Confirmed by YOSHI ZUÑIGA, JEFFERSON ([id number]), news videotape editor DELMY ROJO ([id number]) on 06/10/2021 2:30:56 PM Referred By: VENU Confirmed By:JEFFERSON BELLE MD
[2021-06-10] VITALS (11 sets, daily range): BP systolic 148–184; BP diastolic 70–95; PULSE 70–85; RESP 16–20; TEMP 36.3–37.2; O2SAT 97–100; BMI 34.7
[2021-06-10 00:15] LABS: AST(SGOT) 15 U/L (15-37); Alanine Aminotransfer ALT/SGPT 30 U/L (16-61); Albumin, Serum 3.4 g/dL (3.2-5.0); Alkaline Phosphatase 118 U/L (45-117); Bilirubin, Direct 0.17 mg/dL (0.00-0.30); Globulin 2.7 g/dL (2.2-4.2); Protein, Total 6.1 g/dL (6.4-8.2)
--- NOTE | 2021-06-10 00:51 | HP.PCM.HOS_ITS ---
HPI - General General Date of Admission: 06/10/21 Date of Service: 06/10/21 Chief Complaint: Medication potential accidental overuse, Elevated Cr s/p recent Renal Txp, Confusion/Encephalopathy HPI Narrative The patient is a 60 y/o M w/ PMHx: Chronic anemia/AOCD, NORBERTO on CPAP, Former tobacco use, IDDM with insulin pump w/ neuropathy, Hx CVA, HTN, HLD, CKD stage IV s/p recent renal transplant [facility] 03/26/21 with prolonged rehab stay for sev eral months with recent transition to his parents over the last 2 weeks who presents to the [facility] ED on 06/10/21 with history of evaluation earlier in the a.m. secondary concerns for insulin pump malfunctioning noted normally be programmed by Dr. Low with most recent hemoglobin A1c in the 5 range however his blood sugars the last week were reported to have been 400-500 with concerns for malfunction pump; however, his family (parents) had not been assisting with his medications including medications for hepatitis C and per review of medications still left in his bottles they have erroneously been overused with call per spouse to [facility] transplant team who noted regardless concern for possible coleman splant failure with request for patient to present to the ED for evaluation and for transfer to be arranged. Patient spouse reported that he has been confused ever since he began to state his parents following his transition out of the skilled facility and that he normally has been alert and oriented but this has decreased since he has been with him. In the ED he was able to give his name and knew that he was at the hospital in the month but he would intermittently be disoriented per discussion with spouse. In general upon ED evaluation patient noted feeling poorly globally. Work-up in the ED included T 97.6, heart rate 85, BP initially 187/101, respiratory rate 14, and a percent on room air, most recent blood pressure 166/91, CBC with WBC 6.7, hemoglobin 12.2, platelet 187 with increased immature granulocytes, CMP with potassium 5.3, chloride 109, carbon oxide 19, BUN/creatinine 42/3.10, glucose 363, alk phos 118, CT of the brain with cerebral atrophy and chronic small vessel ischemic change with no acute evidence of any intracranial process. Discussed with ED physician and [facility] notes no current bed availability and would not give an accepting physician until bed was obtained. Discussed with Dr. Reyna the ED physician and if there is no bed given or excepting physician within 6 hours following their initial discussion then would plan to admit to [facility] until bed available per transplant team request. Covid rapid antigen test pending per [facility] transfer facility upon evaluation. [facility] Medical History Arthritis Atherosclerosis of [place] coronary artery of [place] heart without angina pectoris Cardiology follow-up encounter Cataracts, bilateral CKD (chronic kidney disease) stage 4, GFR 15-29 ml/min CPAP (continuous positive airway pressure) dependence Diabetes type 1, uncontrolled Diabetic polyneuropathy associated with type 1 diabetes mellitus DM2 (diabetes mellitus, type 2) Essential hypertension Former smoker Heart disease High cholesterol History of renal disease History of stress test Hyperlipidemia Incomplete right bundle branch block Insulin dependent diabetes mellitus Kidney disease Malfunction of arteriovenous dialysis fistula NORBERTO (obstructive sleep apnea) Pancreatitis Prostate disease Sleep apnea Stroke Tobacco abuse Type 1 diabetes Uncontrolled type 1 diabetes mellitus with ESRD (end-stage renal disease) Uses wheelchair Walker as ambulation aid Wears dentures Wears glasses Home Medications clopidogrel 75 mg PO DAILY 01/26/13 [History Last Taken 04/05/20] calcitriol 0.5 mcg capsule 0.5 mcg PO DAILY 06/16/19 [History Last Taken 04/05/20] albuterol sulfate 1 - 2 puff INHALATION Q6H PRN PRN 07/24/19 [History Last Taken 10/27/19] BP cuff #1 ea 11/27/19 [Rx Last Taken Unknown] pen needle, diabetic 32 gauge x 5/32 #400 ea 02/12/20 [Rx Last Taken Unknown] vit B comp no.[id number]-biotin 1 ea PO DAILY 03/11/20 [History Last Taken 04/05/20] tamsulosin 0.4 mg capsule 0.4 mg PO QHS cap 04/22/20 [History Last Taken Unknown] blood-glucose sensor #9 ea 08/26/20 [Rx Last Taken Unknown] blood-glucose transmitter #1 ea 08/26/20 [Rx Last Taken Unknown] insulin aspart U-100 100 unit/mL subcutaneous solution 120 unit SC DAILY #110 ml 12/13/20 [Rx Last Taken Unknown] atorvastatin 40 mg tablet 40 mg PO QHS #90 tab 03/04/21 [Rx Last Taken Unknown] cholecalciferol (vitamin D3) [Vitamin D3] 5,000 unit PO DAILY 06/08/21 [History Last Taken Unknown] moxifloxacin 2 drp EACH EYE BID 06/08/21 [History Last Taken Unknown] mycophenolate mofetil 1,000 mg PO BID 06/08/21 [History Last Taken Unknown] sofosbuvir-velpatasvir [Epclusa] 1 tab PO DAILY 06/08/21 [History Last Taken Unknown] tacrolimus 3 mg PO BID 06/08/21 [History Last Taken Unknown] blood sugar diagnostic [Accu-Chek Katey Plus test strp] 06/09/21 [History Last Taken Unknown] famotidine [Acid Controller] 20 mg 06/09/21 [History Last Taken Unknown] Allergy/AdvReac Type Severity Reaction Status Date / Time No Known Allergies Allergy Verified 06/09/21 11:08 Family History Mother Diabetes Thyroid disorder Hypertension Hyperlipidemia Surgical History Arteriovenous fistula for hemodialysis in place, primary H/O cardiac catheterization History of bilateral cataract extraction History of coronary artery stent placement (04/21/11) History of kidney transplant (~03/2021) history of peritoneal catheter insertion (~03/2020) Problem with dialysis access (04/05/20) Social History (Updated 06/09/21 @ 22:[address] Cesar Reyna MD) household members: spouse Smoking Status: Former smoker how long ago did patient quit smokin months alcohol intake: current alcohol intake frequency: holidays/special occasions only substance use type: does not use caffeine: Yes Type: coffee Number of servings: 2 ROS ROS Narrative Admission Review of Systems: CONSTITUTIONAL: No weight loss, fever, chills, + weakness or fatigue. HEENT: Eyes: No visual loss, blurred vision, double vision or yellow sclerae. Ears, Nose, Throat: No hearing loss, sneezing, congestion, runny nose or sore throat. SKIN: No rash or itching, lesions, wounds. CARDIOVASCULAR: No chest pain, chest pressure or chest discomfort, palpitations, edema, orthopnea, syncopal events. RESPIRATORY: No shortness of breath, cough or sputum, wheezing, hemoptysis. GASTROINTESTINAL: No anorexia, nausea, vomiting or diarrhea, abdominal pain, melena, BRBPR. GENITOURINARY: No dysuria, frequency, urgency or retention. NEUROLOGICAL: + Confusion, encephalopathy intermittently, No headache, dizziness, syncope, paralysis, ataxia, numbness or tingling in the extremities, focal weakness, change in bowel or bladder control, seizure. MUSCULOSKELETAL: + muscle, back pain, joint pain or stiffness. HEMATOLOGIC: + anemia, bleeding or bruising. LYMPHATICS: No enlarged nodes. No history of splenectomy. PSYCHIATRIC: No history of depression or anxiety. ENDOCRINOLOGIC: No reports of sweating, cold or heat intolerance. + polyuria or polydipsia. ALLERGIES: No history of asthma, hives, eczema or rhinitis. Vital Signs Vital Signs Vital Signs: 06/09/21 22:01 06/09/21 22:04 06/10/21 00:28 Temperature 97.8 F Temperature Source Oral Pulse Rate 85 79 Respiratory Rate 18 16 Respiratory Effort Normal Respiratory Pattern Normal Blood Pressure 152/90 H 166/91 H Blood Pressure Mean 110 116 Pulse Ox 99 97 Oxygen Delivery Method Room Air Room Air Weight Weight: 249 lb 12.54 oz Body Mass Index (BMI) 35.8 Physical Exam Narrative Physical Examination: General: Awakens to stimuli but very fatigued, falls back asleep quickly, intermittently alert but very fatigued is noted, oriented to self, place and can give month but is confused with some questioning, remains cooperative, laying in the ED bed, very fatigued. Skin: Normal color, normal turgor, no icterus, no cyanosis except abdominal incision with mild scab otherwise well-appearing, left abdomen with drain in place, chronic bilateral lower extremity venous stasis skin changes. HEENT: AT/NC, EOMI, PERRLA, moderately dry MM, no carotid bruits or JVD noted. Lungs: Diminished, greater bases, moderate effort, no rales, ronchi or wheezing. Heart: Currently regular rate and rhythm; no gallop, rub audible. Abdomen: Soft, obese, left-sided abdominal drain in place, abdominal scarring status post transplant well appearing, NTTP, difficult to assess distention given habitus, distant normal BS, no HSM. Extremities: No cyanosis, no clubbing, bilateral chronic ankle edema. Neurological: Patient awake, alert, oriented as noted, cognitive function decreased from baseline intact; pupils equally reactive to light and accommodation, cranial nerves grossly normal, moving all 4 extremities, no focal deficits, strength moderately global decreased. Psychiatric: Affect appears extremely fatigued, no acute evidence of depressive or anxiety feelings. Results Lab / Micro Data Result Diagrams: 06/09/21 23:40 06/09/21 22:50 Labs: Laboratory Results - last 24 hr 06/09/21 22:50: Sodium 136, Potassium 5.3 H, Chloride 109 H, Carbon Dioxide 19.0 L, Anion Gap 8, BUN 42 H, Creatinine 3.10 H, Estim Creat Clear Calc 26.82, Est GFR (MDRD) Af Amer 27 L, Est GFR (MDRD) Non-Af 22 L, BUN/Creatinine Ratio 13.5, Glucose 363 H, Calcium 10.8 H 06/09/21 23:40: WBC 6.7, RBC 3.96 L, Hgb 12.2 L, Hct 38.1 L, MCV 96.2 H, MCH 30.8, MCHC 32.0, RDW Std Deviation 50.1 H, RDW Coeff of Kindra 14.1, Plt Count 187, MPV 10.8, Immature Gran % (Auto) 1.000 H, Neut % (Auto) 69.9, Lymph % (Auto) 16.9 L, Crawford % (Auto) 9.4, Eos % (Auto) 1.8, Baso % (Auto) 1.0, Absolute Neuts (auto) 4.7, Absolute Lymphs (auto) 1.13, Nucleated RBC % 0 06/09/21 23:40: Total Bilirubin 0.50, Direct Bilirubin 0.17, AST 15, ALT 30, Alkaline Phosphatase 118 H, Total Protein 6.1 L, Albumin 3.4, Globulin 2.[address] 06/09/21 23:35 IMPRESSION: Cerebral atrophy and chronic small vessel ischemic changes. No evidence of acute intracranial process. Individualized dose optimization techniques were used for this CT. at 0039 Reported and signed by: Tamir Conner MD Electronically Signed: Tamir Conner MD at 0:38 EST , Assessment & Plan Assessment/Plan (1) Encephalopathy acute: PLAN: The patient is a 60 y/o M w/ PMHx: Chronic anemia/AOCD, NORBERTO on CPAP, Former tobacco use, IDDM with insulin pump w/ neuropathy, Hx CVA, HTN, HLD, CKD stage IV s/p recent renal transplant [facility] 03/26/21 with prolonged rehab stay for several months with recent transition to his parents over the last 2 weeks who presents to the [facility] ED on 06/10/21 with history of evaluation earlier in the a.m. secondary concerns for insulin pump malfunctioning noted normally be programmed by Dr. Low with most recent hemoglobin A1c in the 5 range however his blood sugars the last week were reported to have been 400-500 with concerns for malfunction pump; however, his family (parents) had not been assisting with his medications including medications for hepatitis C and per review of medications still left in his bottles they have erroneously been overused with call per spouse to [facility] transplant team who noted regardless concern for possible trans plant failure with request for patient to present to the ED for evaluation and for transfer to be arranged. #1. Encephalopathy, Confusion suspected secondary primarily to Medication misuse/Overuse, Potentially confounded by Failing Renal Txp: If patient does not receive a bed as noted would plan to admit to PCU, maintain on telemetry, continue to trend CBC and CMP, hold insulin pump usage and transition to insulin sliding scale, hold antiviral regimen for recently contracted hepatitis C from transplant given patient is inappropriately out of this medication and likely overtook it, maintain on fall and aspiration precautions, continue judicious IV fluids. #2. IDDM with hyperglycemia, possibly secondary to malfunctioning insulin pump: Patient with elevated blood sugars only over the last week, per discussion hemoglobin A1c has been significantly reduced in the 5 range, will obtain to be cautious, will hold on any insulin pump usage at this time and transition to insulin sliding scale, once mental status improved continue ADA diet with Accu- Cheks with insulin sliding scale as noted. #3. Hyperkalemia, mild: Admission potassium 5.3, will judiciously hydrate, plan repeat CMP in AM, noted intention to utilize insulin sliding scale which will also assist. #4. CKD stage IV s/p recent Renal Txp with concern for failing Txp: Admission BUN/creatinine 42/3.10, more recently per [facility] report had been 3.7 therefore seems to the improved however transplant team given patient presentation and symptoms is concern for failure, will plan to judiciously hydrate, repeat CMP in a.m., Continue patient home tacrolimus and mycophenolate regimen. #5. Hepatitis C, recently acquired via transplant as noted: Patient did receive renal transplant from hepatitis C individual, given patient's antiviral regimen was completely out before it should have been some suspicion that he does have's been accidentally overused, will hold on administering any further Epclusa and will trend CMP to be cautious. #6. History prior CVA: We will continue Plavix, statin, from current list not on hypertensive regimen which will be clarified, altered diabetic care as noted. #7. CAD: Status post PCI, will continue patient Plavix, statin, not on beta- siddhartha therapy for unclear reason, will cautiously monitor and add if appropriate. #8. Hypertension: From current list not on regimen, possibly related with recent transplant, will hold on aggressively treating, as needed IV hydralazine in interim. #9. Hyperlipidemia: We will continue patient on statin therapy. #10. Chronic anemia/AOCD: Admission hemoglobin 12.2, baseline more recently 11 range, stable, trend. #11. BPH: We will continue patient on Flomax regimen. #12. NORBERTO: CPAP q HS. #13. DVT prophylaxis: SCDs, heparin. Charges/Coding Visit Charges OBSV E&M: 08009 Initial observation care L3
--- NOTE | 2021-06-10 01:39 | ED.RN ---
[facility] made aware of patient being covid positive status at this time
[2021-06-10 02:25] LABS: BNP,B-Type NATRIURETIC PEPTIDE 81.2 pg/mL (0-100)
[2021-06-10 02:38] LABS: Procalcitonin 0.33 ng/mL (0.00-0.09)
[2021-06-10 02:39] LABS: CRP < 2.90 mg/L (0.0-3.0); Ferritin 454 ng/mL (26-388); LDH 240 U/L (87-241)
[2021-06-10] MEDS: 0.9% Normal Saline 1,000 ML 100 ML IV ×2 (10:28→20:57)
[2021-06-10] MEDS: Insulin Lispro 100 UNIT/ML INSULN.PEN SC ×3 (10:28→20:56)
[2021-06-10] MEDS: Clopidogrel Bisulfate 75 MG Tablet PO (10:29)
[2021-06-10] MEDS: Famotidine 20 MG Tablet PO (10:29)
[2021-06-10] MEDS: Heparin Injection (Vial) 5,000 UNIT/ML VIAL 5000 UNIT SC ×2 (10:29→22:20)
[2021-06-10] MEDS: Tacrolimus Anhydrous 1 MG Capsule 3 MG PO ×2 (10:30→22:20)
--- NOTE | 2021-06-10 11:25 | CPS ---
Addendum entered and electronically signed by Dina Leonard RRT 06/10/21 11:35: Pt wears a CPAP of [id number] per Dr Garcia's note in 2020 Original Note: Pt doesn't have his CPAP with him, he called his 's work and asked me to leave a message to see if she can bring his machine in.
[2021-06-10] MEDS: Calcitriol 0.25 MCG Capsule 0.5 MCG PO (12:47)
[2021-06-10] MEDS: Mycophenolate Mofetil 250 MG Capsule 1000 MG PO ×2 (12:47→22:20)
--- NOTE | 2021-06-10 13:43 | PCM.HOSP.N ---
Hospitalist Note Patient is currently alert but oriented to self, vice president medical affairs, and year but not location and month. Still with intermittent confusion and other issues as well. Remains overall stable but waiting for bed at [facility]. We have called and no beds are yet available but they will keep us updated. We will add Accu-Cheks. Check BMP now given hyperkalemia on admission and to reassess his blood sugars. His insulin pump has been removed. Patient had recent renal transplant in 03/26/2021. If patient remains here tomorrow may need to consider nephrology consult if renal function continues to worsen.
[2021-06-10] MEDS: Loperamide 2 MG Capsule PO (14:46)
[2021-06-10 15:06] LABS: Bedside Glucose 300 mg/dL (74-106)
[2021-06-10 15:13] LABS: Anion Gap 5 (5-15); BUN 42 mg/dL (7-18); BUN/Creat Ratio 13.6 RATIO (10-20); Calcium,Total 10.6 mg/dL (8.5-10.1); Chloride 110 mmol/L (98-107); Creatinine, Serum 3.08 mg/dL (0.70-1.30); EST Glomerular Filtration Rate 22 mL/min (>60); Est Glom Filt Rate - Afr Amer 27 mL/min (>60); Estimated Creatinine Clearance 26.99 ml/min; Glucose 313 mg/dL (74-106); Potassium 5.4 mmol/L (3.5-5.1); Sodium Level 136 mmol/L (136-145)
--- NOTE | 2021-06-10 15:29 | CASEMGMT ---
Doug, PCU inkjet operator, called [facility] transfer center and they stated they are working hard to get a bed for pt today. Adam DAMIAN CM
[2021-06-10] MEDS: Sodium Polystyrene Sulfonate 15 GM/60 ML UDC PO (16:24)
--- NOTE | 2021-06-10 16:35 | NURSING ---
Pt starting to get confused stating I'd like to get that white haired man in here with the sour puss attitude... he said he didn't have time to help me- stated that we did not have any white haired men working on the floor today to which he said yeah he was in here about an hour and a half ago when I shit my pants. This RN told pt that this RN and another woman (propellant charge loader) were in here helping him when he had a BM earlier. Then the pt proceeded to say and I just found out they don't even do the laundry around here- reoriented the pt to the fact that he was at [facility] and that he had come here very early in the morning and that we are still waiting for a bed at [facility]. Pt then proceeds to talk about how great [facility] is and how superior their care and staff are to every facility he has been at... then proceeds to angrily discuss politics and express frustrations about how no one in the world wants to do their job and expect to be handed money... this RN just provided active listening and ended the conversation explaining to pt I was going to check on the status of the transfer to [facility].
[2021-06-10 21:11] LABS: Bedside Glucose 356 mg/dL (74-106)
[2021-06-10] MEDS: Tamsulosin HCl 0.4 MG Capsule PO (22:20)
[2021-06-10] MEDS: Atorvastatin Calcium 40 MG Tablet PO (22:20)
[2021-06-11] VITALS (10 sets, daily range): BP systolic 156–165; BP diastolic 79–93; PULSE 80–105; RESP 16–18; TEMP 36.7–37; O2SAT 96–100
[2021-06-11] MEDS: hydrALAZINE 20 MG/ML Vial 10 MG IV (03:16)
[2021-06-11] MEDS: Insulin Lispro 100 UNIT/ML INSULN.PEN SC ×4 (06:39→20:40)
[2021-06-11] MEDS: 0.9% Saline Lock 10 ML Syringe IV (06:40)
[2021-06-11] MEDS: 0.9% Normal Saline 1,000 ML 100 ML IV (06:57)
[2021-06-11 07:05] LABS: Bedside Glucose 265 mg/dL (74-106)
[2021-06-11 07:07] LABS: Bacteria 0 SEEN /hpf (None Seen); Mucous, Urine 0 SEEN /hpf (<or=2+); Red Blood Cells-Urine 0 SEEN /hpf (0-5); Squamous Epithelial Cells - UA 0 SEEN /hpf (0-5); White Blood Cells 0 SEEN /hpf (0-5)
[2021-06-11 07:14] LABS: Color, Urine Yellow (Yellow); Glucose, Dipstick 1000 mg/dl (Normal); Ketone-Dipstick 5 mg/dl (Negative); Leukocyte Esterase-Dipstick Negative /ul (Negative); Nitrite-Dipstick Negative (Negative); Occult Blood-Urine Negative /ul (Negative); Protein-Dipstick 30 mg/dl (Negative); Specific Gravity, Urine 1.015 (1.002-1.030); Urine Bilirubin Dipstick Negative (Negative); Urine Clarity Clear (Clear); Urine Urobilinogen Normal (Normal)
[2021-06-11 07:16] LABS: Bedside Glucose 297 mg/dL (74-106)
[2021-06-11 09:36] LABS: Absolute Lymphocyte Count 0.87 X10^3/uL (0.83-4.51); Absolute Neutrophil Count 4.8 X10^3/uL (2.0-7.7); Basophil# 0.06 X10^3/uL; Basophil% 0.9 % (0-1); Eosinophil# 0.11 X10^3/uL; Eosinophils% 1.7 % (0-5); Hematocrit 37.9 % (40-54); Hemoglobin 12.6 g/dL (13.0-16.5); Lymphocyte # 0.87 X10^3/ul (0.83-4.51); Lymphocyte % 13.5 % (19-41); Mean Corp Hgb Conc 33.2 g/dL (32-36); Mean Corpuscular Hgb 31.7 pg (27.0-32.0); Mean Corpuscular Volume 95.5 fL (80-94); Mean Platelet Vol. 10.9 fl (6.2-12.0); Monocyte# 0.55 X10^3/uL; Monocyte% 8.5 % (0-10); NRBC Flagged by Analyzer 0 % (0-5); Neutrophil # 4.81 X10^3/uL (2.7-7.7); Neutrophil % 74.5 % (47-70); Platelet Count 185 K/mm3 (150-450); RBC Distribution Width CV 13.7 % (11.6-14.6); RBC Distribution Width SD 48.6 fl (35.1-43.9); Red Blood Count 3.97 M/mm3 (4.6-6.2); White Blood Count 6.5 K/mm3 (4.4-11.0)
[2021-06-11 09:51] LABS: ALB/GLOB Ratio 1.5 RATIO (0.9-2.4); AST(SGOT) 10 U/L (15-37); Alanine Aminotransfer ALT/SGPT 25 U/L (16-61); Albumin, Serum 3.5 g/dL (3.2-5.0); Alkaline Phosphatase 119 U/L (45-117); Anion Gap 8 (5-15); BUN 35 mg/dL (7-18); BUN/Creat Ratio 14.2 RATIO (10-20); Calcium,Total 10.5 mg/dL (8.5-10.1); Chloride 114 mmol/L (98-107); Creatinine, Serum 2.47 mg/dL (0.70-1.30); EST Glomerular Filtration Rate 29 mL/min (>60); Est Glom Filt Rate - Afr Amer 35 mL/min (>60); Estimated Creatinine Clearance 33.66 ml/min; Globulin 2.3 g/dL (2.2-4.2); Glucose 251 mg/dL (74-106); Potassium 4.7 mmol/L (3.5-5.1); Protein, Total 5.8 g/dL (6.4-8.2); Sodium Level 140 mmol/L (136-145)
--- NOTE | 2021-06-11 09:55 | PCM.CONS.R ---
Assessment & Plan Assessment/Plan (1) Kidney transplant recipient: PLAN: -The patient was transplanted at [facility] in March 2021. -I have very little details on the transplantation. We note that this is a hep C positive kidney transplantation. -However, I do not know what HLA matching, induction therapy, or CMV status for this patient. -The patient's immunosuppressed with tacrolimus and mycophenolate. However, he is not on prednisone. I am not sure whether the patient is supposed be steroid free or not. Moreover, he does not appear to be on any P NEETU prophylaxis either. -Moreover, although the patient is asymptomatic, he is still testing positive for COVID-19. -I will try to discuss his case with the transplant cupola tender helper director transition at [facility]. -The patient has new onset resting tremor as well which could suggest supratherapeutic level of tacrolimus. Unfortunately, we cannot obtain tacrolimus level in a timely fashion here. -Best course of action from the nephrology standpoint is to get the patient transferred to [facility] as soon as we can. (2) Hepatitis C test positive: PLAN: -The patient is currently off of antiviral therapy. There is some thought that he may have been taking too much antiviral prior to admission. -This will also be hopefully clarified by the transplant nephrology team at [facility] when he is transferred. (3) DEION (acute kidney injury): PLAN: -The lower serum creatinine I have seen on chart review is 2.46 mg/dL on 05/28/2021. -I do not know what serum creatinine barber at after kidney transplant. Unfortunately, I do not have access to [facility] medical record or care everywhere. -Serum creatinine has been slowly rising since 05/28/2021. He presented with serum creatinine of 3.10 mg/dL on 06/09/2021. -DEION could be secondary to volume depletion as urinalysis looks relatively benign. -Other possibilities include tacrolimus nephrotoxicity. Unfortunately, we cannot check level in a timely fashion at a hospital. -Acute rejection is always in the differential in a relatively new transplant. -I agree with current treatment with IV fluid, and I will monitor allograft function with you. -Again, I will call and discuss plan of care with transplant cupola tender helper at [facility] as well. (4) Acute alteration in mental status: PLAN: -The patient appears to be alert and oriented x3 during my visit. However, he has very little detail to share with me regarding his kidney transplantation. -Suspect encephalopathy is metabolic. -Continue supportive care as coordinated by hospitalist. (5) Hyperglycemia due to type 1 diabetes mellitus: PLAN: -Treatment of diabetes mellitus as per hospitalist. HPI Consult Data Date of Consult: 06/11/21 HPI Narrative Reason for Consultation: Renal management in the kidney transplantation HPI Narrative: The patient is a 60-year-old man with past history of type 1 diabetes mellitus, hypertension, CAD status post PCI, NORBERTO on CPAP, anemia, and prior history of stroke. The patient has ESRD due to diabetic kidney disease and had been on dialysis until March 2021 when he underwent a donor kidney transplant at [facility]. This was a hepatitis C positive kidney, and he is being treated for hepatitis C infection currently. The patient was discharged from [facility] to [facility] in April 2021. During his stay at the [facility], the patient tested positive for COVID-19. However, he denied any symptoms of shortness of breath, cough, fever, chills, anosmia, or dysgeusia. The patient tells me that he was treated with monoclonal antibody. It was unclear whether immunosuppression was altered by his transplant cupola tender helper in [place]. The patient was then discharged from [facility] to his parents home. The patient presented to the hospital yesterday with altered mental status. He also had malfunction of his insulin pump. He presented with blood glucose of 363 mg/dL. Nephrology is asked see the patient to help with kidney disease and transplant management. The patient denies current chest pain, shortness of breath, nausea, vomiting, or diarrhea. There has been no lower extremity edema. The patient denies abdominal pain. There is no pain over the transplant kidney which is in the right lower quadrant. There has been no fever, chills. He denies dysuria or gross hematuria. I do not have details of the patient's kidney transplantation such as induction protocol, HLA matching, or CMV status. However, we know that the patient has received hepatitis C kidney. There is a question of whether the patient had taken too much antiviral, so they are on hold based on the hospital's discussion with the transplant center. The patient is currently immunosuppressed with tacrolimus 3 mg twice a day and mycophenolate 1000 mg twice a day. I do not see corticosteroid on his current medication list. Serum creatinine was 3.10mg/dL on presentation on 06/09/2021. The lower serum creatinine I have seen on record here at [facility] is 2.46 mg/dL on 05/28/2021. The patient does have resting tremor which she tells me is new. Tacrolimus level has been sent, but it will take a few days before we have the result. [facility] Medical History Arthritis Atherosclerosis of [place] coronary artery of [place] heart without angina pectoris Cardiology follow-up encounter Cataracts, bilateral CKD (chronic kidney disease) stage 4, GFR 15-29 ml/min CPAP (continuous positive airway pressure) dependence Diabetes type 1, uncontrolled Diabetic polyneuropathy associated with type 1 diabetes mellitus DM2 (diabetes mellitus, type 2) Essential hypertension Former smoker Heart disease High cholesterol History of renal disease History of stress test Hyperlipidemia Incomplete right bundle branch block Insulin dependent diabetes mellitus Kidney disease Malfunction of arteriovenous dialysis fistula NORBERTO (obstructive sleep apnea) Pancreatitis Prostate disease Sleep apnea Stroke Tobacco abuse Type 1 diabetes Uncontrolled type 1 diabetes mellitus with ESRD (end-stage renal disease) Uses wheelchair Walker as ambulation aid Wears dentures Wears glasses Home Medications clopidogrel 75 mg PO DAILY 01/26/13 [History Last Taken 04/05/20] albuterol sulfate 1 - 2 puff INHALATION Q6H PRN PRN 07/24/19 [History Last Taken 10/27/19] BP cuff #1 ea 11/27/19 [Rx Last Taken Unknown] pen needle, diabetic 32 gauge x 32 #400 ea 02/12/20 [Rx Last Taken Unknown] vit B comp no.6-odynp-K-biotin 1 ea PO DAILY 03/11/20 [History Last Taken 04/05/20] tamsulosin 0.4 mg capsule 0.4 mg PO QHS cap 04/22/20 [History Last Taken Unknown] blood-glucose sensor #9 ea 08/26/20 [Rx Last Taken Unknown] blood-glucose transmitter #1 ea 08/26/20 [Rx Last Taken Unknown] insulin aspart U-100 100 unit/mL subcutaneous solution 120 unit SC DAILY #110 ml 12/13/20 [Rx Last Taken Unknown] atorvastatin 40 mg tablet 40 mg PO QHS #90 tab 03/04/21 [Rx Last Taken Unknown] cholecalciferol (vitamin D3) [Vitamin D3] 5,000 unit PO DAILY 06/08/21 [History Last Taken Unknown] moxifloxacin 2 drp EACH EYE BID 06/08/21 [History Last Taken Unknown] mycophenolate mofetil 1,000 mg PO BID 06/08/21 [History Last Taken Unknown] sofosbuvir-velpatasvir [Epclusa] 1 tab PO DAILY 06/08/21 [History Last Taken Unknown] tacrolimus 3 mg PO BID 06/08/21 [History Last Taken Unknown] blood sugar diagnostic [Accu-Chek Katey Plus test strp] 06/09/21 [History Last Taken Unknown] famotidine [Acid Controller] 20 mg 06/09/21 [History Last Taken Unknown] calcitriol 0.5 mcg PO QODAY 06/10/21 [History Last Taken Unknown] Allergy/AdvReac Type Severity Reaction Status Date / Time No Known Allergies Allergy Verified 06/09/21 11:08 Family History Mother Diabetes Thyroid disorder Hypertension Hyperlipidemia Surgical History Arteriovenous fistula for hemodialysis in place, primary H/O cardiac catheterization History of bilateral cataract extraction History of coronary artery stent placement (04/21/11) History of kidney transplant (~03/2021) history of peritoneal catheter insertion (~03/2020) Problem with dialysis access (04/05/20) Social History (Updated 06/09/21 @ 22:[address] Cesar Reyna MD) household members: spouse Smoking Status: Former smoker how long ago did patient quit smokin months alcohol intake: current alcohol intake frequency: holidays/special occasions only substance use type: does not use caffeine: Yes Type: coffee Number of servings: 2 ROS ROS Narrative 01/09 review of system was done. It is as per HPI. Physical Exam Narrative General: Alert and oriented x3, no apparent distress. HEENT: Normocephalic, atraumatic. Mucous membrane dry. PERRLA, EOMI. Hearing is intact. Neck: Supple, no JVD. Heart: Normal S1, S2. No rubs, murmurs or gallops. Lungs: Clear to auscultation bilaterally. Abdomen: Obese, normal bowel sound, soft, nontender, no guarding or rebound. There is a surgical scar in the right lower quadrant of the abdomen which appears well-healed. Extremities: Trace edema of the right lower extremity with no edema of the left lower extremity. Musculoskeletal: Full passive range of motion. There is no joint swelling. Neurological: There is resting tremors of both hands bilaterally. No focal neurologic deficits. Skin: There are some ecchymosis of the arms bilaterally. Otherwise, there is no rash. Skin is warm and dry. Psychological: Mood and affect are normal. Lab / Micro Data Result Diagrams: 06/11/21 09:26 06/11/21 09:26 Labs: Laboratory Results - last 24 hr 06/10/21 14:30: Sodium 136, Potassium 5.4 H, Chloride 110 H, Carbon Dioxide 21.0, Anion Gap 5, BUN 42 H, Creatinine 3.08 H, Estim Creat Clear Calc 26.99, Est GFR (MDRD) Af Amer 27 L, Est GFR (MDRD) Non-Af 22 L, BUN/Creatinine Ratio 13.6, Glucose 313 H, Calcium 10.6 H 06/10/21 14:39: POC Glucose 300 H 06/10/21 20:54: POC Glucose 356 H 06/11/21 06:38: POC Glucose 265 H 06/11/21 07:00: Urine Color Yellow, Urine Clarity Clear, Urine pH 5.0, Ur Specific [place] 1.015, Urine Protein 30 H, Urine Glucose (UA) 1000 H, Urine Ketones 5 H, Urine Occult Blood Negative, Urine Nitrite Negative, Urine Bilirubin Negative, Urine Urobilinogen Normal, Ur Leukocyte Esterase Negative, Urine RBC 0 SEEN, Urine WBC 0 SEEN, Ur Squamous Epith Cells 0 SEEN, Urine Bacteria 0 SEEN, Urine Mucus 0 SEEN 06/11/21 09:26: WBC 6.5, RBC 3.97 L, Hgb 12.6 L, Hct 37.9 L, MCV 95.5 H, MCH 31.7, MCHC 33.2, RDW Std Deviation 48.6 H, RDW Coeff of Kindra 13.7, Plt Count 185, MPV 10.9, Immature Gran % (Auto) 0.900, Neut % (Auto) 74.5 H, Lymph % (Auto) 13.5 L, [place] % (Auto) 8.5, Eos % (Auto) 1.7, Baso % (Auto) 0.9, Absolute Neuts (auto) 4.8, Absolute Lymphs (auto) 0.87, Nucleated RBC % 0 06/11/21 09:26: Sodium 140, Potassium 4.7, Chloride 114 H, Carbon Dioxide 18.0 L, Anion Gap 8, BUN 35 H, Creatinine 2.47 H, Estim Creat Clear Calc 33.66, Est GFR (MDRD) Af Amer 35 L, Est GFR (MDRD) Non-Af 29 L, BUN/Creatinine Ratio 14.2, Glucose 251 H, Calcium 10.5 H, Total Bilirubin 0.60, AST 10 L, ALT 25, Alkaline Phosphatase 119 H, Total Protein 5.8 L, Albumin 3.5, Globulin 2.3, Albumin/Globulin Ratio 1.5 Micro: Microbiology 06/11/21 07:00 Urine, Random Streptococcus pneumoniae Antigen (M - Final 06/11/21 07:00 Urine, Random Legionella Antigen - Final
[2021-06-11] MEDS: Heparin Injection (Vial) 5,000 UNIT/ML VIAL 5000 UNIT SC ×2 (10:22→20:23)
[2021-06-11] MEDS: Clopidogrel Bisulfate 75 MG Tablet PO (10:22)
[2021-06-11] MEDS: Mycophenolate Mofetil 250 MG Capsule 1000 MG PO (10:22)
[2021-06-11] MEDS: Famotidine 20 MG Tablet PO (10:22)
[2021-06-11] MEDS: Tacrolimus Anhydrous 1 MG Capsule 3 MG PO (10:22)
--- NOTE | 2021-06-11 10:40 | PN_ITS ---
Progress Note The patient case was discussed with transplant lead care manager airport control operator at [facility]. The patient is not on corticosteroid. She suggested that we decrease tacrolimus dose to 3 mg every morning and 2 mg every evening. We will also decreased mycophenolate to 750 mg twice a day. Vijay Garcia MD
--- NOTE | 2021-06-11 11:08 | CASEMGMT ---
Ghazala,PCU area secretary called [facility] transfer center and they state their beds are discharge dependent. Dr. Mcclain, nephrology, did speak with on-call transplant pie maker at [facility]. Adam DAMIAN CM
[2021-06-11 12:36] LABS: Bedside Glucose 408 mg/dL (74-106)
--- NOTE | 2021-06-11 13:52 | PN.HOSP_ITS ---
Subjective Subjective No issues overnight. Patient states he thinks he is feeling better. He does remain confused telling me he is at [facility] and it is March. He does however ever get the month and president states correct upon questioning. We are still awaiting a bed for transport to [facility]. Objective Data Objective Data Vital Signs: Vital Signs Temp Pulse Resp BP Pulse Ox 98.6 F 105 H 18 158/79 H 99 06/11/21 10:17 06/11/21 10:17 06/11/21 10:17 06/11/21 10:17 06/11/21 10:17 Oxygen Delivery Method Room Air Weight: 109.6 kg Body Mass Index (BMI) 34.7 Intake & Output: Intake and Output for Last 24 Hours 06/09/21 06/10/21 06/11/21 23:59 23:59 23:59 Intake Total 1800 / 1800 1720 / 1720 Output Total 900 / 900 Balance 1800 / 1800 820 / 820 Lab / Micro Data Result Diagrams: 06/11/21 09:26 06/11/21 09:26 Labs: Laboratory Results - last 24 hr 06/10/21 14:30: Sodium 136, Potassium 5.4 H, Chloride 110 H, Carbon Dioxide 21.0, Anion Gap 5, BUN 42 H, Creatinine 3.08 H, Estim Creat Clear Calc 26.99, Est GFR (MDRD) Af Amer 27 L, Est GFR (MDRD) Non-Af 22 L, BUN/Creatinine Ratio 13.6, Glucose 313 H, Calcium 10.6 H 06/10/21 14:39: POC Glucose 300 H 06/10/21 20:54: POC Glucose 356 H 06/11/21 06:38: POC Glucose 265 H 06/11/21 07:00: Urine Color Yellow, Urine Clarity Clear, Urine pH 5.0, Ur Specific [place] 1.015, Urine Protein 30 H, Urine Glucose (UA) 1000 H, Urine Ketones 5 H, Urine Occult Blood Negative, Urine Nitrite Negative, Urine Bilirubin Negative, Urine Urobilinogen Normal, Ur Leukocyte Esterase Negative, Urine RBC 0 SEEN, Urine WBC 0 SEEN, Ur Squamous Epith Cells 0 SEEN, Urine Bacteria 0 SEEN, Urine Mucus 0 SEEN 06/11/21 09:26: WBC 6.5, RBC 3.97 L, Hgb 12.6 L, Hct 37.9 L, MCV 95.5 H, MCH 31.7, MCHC 33.2, RDW Std Deviation 48.6 H, RDW Coeff of Kindra 13.7, Plt Count 185, MPV 10.9, Immature Gran % (Auto) 0.900, Neut % (Auto) 74.5 H, Lymph % (Auto) 13.5 L, [place] % (Auto) 8.5, Eos % (Auto) 1.7, Baso % (Auto) 0.9, Absolute Neuts (auto) 4.8, Absolute Lymphs (auto) 0.87, Nucleated RBC % 0 06/11/21 09:26: Sodium 140, Potassium 4.7, Chloride 114 H, Carbon Dioxide 18.0 L , Anion Gap 8, BUN 35 H, Creatinine 2.47 H, Estim Creat Clear Calc 33.66, Est GFR (MDRD) Af Amer 35 L, Est GFR (MDRD) Non-Af 29 L, BUN/Creatinine Ratio 14.2, Glucose 251 H, Calcium 10.5 H, Total Bilirubin 0.60, AST 10 L, ALT 25, Alkaline Phosphatase 119 H, Total Protein 5.8 L, Albumin 3.5, Globulin 2.3, Albumin/Globulin Ratio 1.5 06/11/21 11:59: POC Glucose 408 H Micro: Microbiology 06/11/21 07:00 Urine, Random Streptococcus pneumoniae Antigen (M - Final 06/11/21 07:00 Urine, Random Legionella Antigen - Final 06/10/21 01:00 Nasal Secretion SARS-CoV-2 Antigen (Rapid) - Final SARS-CoV-2 (COVID 19) Physical Exam Const Constitutional Narrative: Obese middle-aged white male sitting up in a chair with no clothes on, states he is ready to go back to bed, appears comfortable nontoxic, watching television Exam Limitations: no limitations Nutritional Appearance: obese HEENT head/scalp atraumatic, moist oral mucous membranes and oropharynx normal HEENT Narrative: Mallampati is 3, no thrush Head and Scalp: normocephalic Resp normal respiratory effort, no retractions, no use of accessory muscles and clear to auscultation bilaterally Auscultation: Negative for crackles, rales, rhonchi or wheezes Cardio regular rate, regular rhythm, S1 normal heart sound, S2 normal heart sound, no murmurs, no rub, no gallops, no clicks and no JVD GI soft to palpation, non-tender and non-distended GI Narrative: Left lower quadrant drains in place with serous fluid in tubing Extremity no clubbing, cyanosis or edema Neuro CN's II-XII intact bilaterally, moves all extremities and no focal motor deficits Neuro Narrative: Oriented to self, year, and president [facility] however is confused on his current location and month, mild tremor noted Sensorium / Orientation: awake and alert Speech: speech normal Assessment & Plan Assessment/Plan (1) DEION (acute kidney injury): (2) COVID-19 virus infection: (3) Encephalopathy acute: (4) Toxic metabolic encephalopathy: (5) Transplant recipient: PLAN: Toxic/metabolic encephalopathy -We suspect that this is related to medication errors with regards to his immunosuppression/antivirals -Adjustments have been made by nephrology after discussion with transplant woodwind instruments inspector -He is alert and appropriately interactive however he is somewhat impulsive and has difficulty with orientation questions at times -Continue to monitor clinically especially with medication adjustments -Unfortunately we are unable to ascertain timely levels for his immunosuppressive medications here -Patient has been accepted for transfer to [facility] and we are awaiting bed -Anticipate discharge soon as he was accepted early yesterday morning DEION with recent kidney transplant -Transplant done at [facility] in March 2021 -Transplant was hep C positive transplant -Case was discussed with nephrology by our woodwind instruments inspector here and immunosuppressive medications have been down titrated per their recommendations -He is on no steroids as they are no steroid transplant site -Unfortunately we are unable to obtain immunosuppressant levels in a timely manner here as it typically takes at least a week to result as they are send out -Serum creatinine is trending down and is 2.47 today which appears to be close to his baseline however we do not know his barber after transplant -Patient was 3.1 on admission -Continue to hold calcitriol given elevated calcium level -Continue IV fluids as ordered Hepatitis C -Patient is currently off antiviral therapy as there is concern that he was taking too much prior to admission -Hoping that we are able to clarify this more once he is transferred to [facility] and follows up with the transplant nephrology team there DM-1 -Patient is on insulin pump at baseline however there is concerned that his pump was malfunctioning -Continue Lantus but increase to 35 units at at bedtime -Add scheduled log 10 units 3 times daily -Continue SSI before meals and at bedtime -Accu-Cheks as ordered Hyperkalemia -Resolved -Patient was given Kayexalate yesterday -Repeat BMP in a.m. History of stroke -Continue Plavix -Continue statin CAD -Continue Plavix and statin -Continue to monitor blood pressure as he is on no regimen at home History of hypertension -Patient is currently on no antihypertensives -Blood pressure may have improved with recent renal transplant -As needed hydralazine is available -Continue to monitor Hyperlipidemia -Continue statin Chronic anemia secondary to renal disease -Admission hemoglobin is 12.2 -Hemoglobin remained stable BPH -Continue Flomax NORBERTO -Continue CPAP at at bedtime Obesity -Recommend weight loss -Complicates treatment, prognosis, outcomes DVT prophylaxis -SCDs -Heparin CODE STATUS -Full code Charges/Coding Visit Charges Inpatient E&M: 90335 Subs Hosp L2
--- NOTE | 2021-06-11 14:23 | CASEMGMT ---
Per Samina RN, pt still with intermittent confusion. Call to , Nalini Nickerson, to complete [employer] form at this time. [employer] form explanation done and give ok for signature via phone. Original to chart. also updated on transfer process. Adam DAMIAN CM
[2021-06-11] MEDS: amLODIPine 10 MG Tablet PO (16:03)
[2021-06-11] MEDS: Insulin Lispro 100 UNIT/ML INSULN.PEN 10 UNIT SC (16:04)
[2021-06-11 16:20] LABS: Bedside Glucose 412 mg/dL (74-106)
[2021-06-11] MEDS: Mycophenolate Mofetil 250 MG Capsule 750 MG PO (20:20)
[2021-06-11] MEDS: Atorvastatin Calcium 40 MG Tablet PO (20:21)
[2021-06-11] MEDS: Tacrolimus Anhydrous 1 MG Capsule 2 MG PO (20:22)
--- NOTE | 2021-06-11 20:30 | NURSING ---
Pt informed about transfer to [facility] which to be tonight. He called and let her know.
--- NOTE | 2021-06-11 20:50 | NURSING ---
Called [facility] for report on pt, but RN not ready yet. Stated they would call back.
[2021-06-11 20:56] LABS: Bedside Glucose 302 mg/dL (74-106)
--- NOTE | 2021-06-12 06:47 | DS.PCM_ITS ---
Providers Date of Admission: 06/10/21 Date of Discharge: 06/11/21 Primary Care Physician: Dr. Handy Henderson, Consultations 06/10/21 15:56 Consult: Nephrology Routine Consulting Provider: Mattie Garcia Reason for Consult: Recent renal transplant -waitiing for bed at [facility] Consult: No MD Notified: Yes Date Notified: 06/10/21 Time Notified: 16:14 Method of Notification: Answering Service Reason For Visit: ENCEPHALOPATHY, POSSIBLE ACCIDENTAL OVERDOSE Diagnosis Discharge Diagnosis (1) DEION (acute kidney injury): Status: Acute Code(s): N17.9 - Acute kidney failure, unspecified (2) COVID-19 virus infection: Status: Acute Code(s): U07.1 - COVID-19 (3) Encephalopathy acute: Status: Acute Code(s): G93.40 - Encephalopathy, unspecified (4) Toxic metabolic encephalopathy: Status: Acute Code(s): G92.8 - Other toxic encephalopathy (5) Transplant recipient: Status: Acute Code(s): Z94.89 - Other transplanted organ and tissue status Medications at Discharge Home Medications clopidogrel 75 mg PO DAILY 01/26/13 albuterol sulfate 1 - 2 puff INHALATION Q6H PRN PRN 07/24/19 BP cuff #1 ea 11/27/19 pen needle, diabetic 32 gauge x #400 ea 02/12/20 vit B comp no.4-inuio-O-biotin 1 ea PO DAILY 03/11/20 tamsulosin 0.4 mg capsule 0.4 mg PO QHS cap 04/22/20 blood-glucose sensor #9 ea 08/26/20 blood-glucose transmitter #1 ea 08/26/20 insulin aspart U-100 100 unit/mL subcutaneous solution 120 unit SC DAILY #110 ml 12/13/20 atorvastatin 40 mg tablet 40 mg PO QHS #90 tab 03/04/21 cholecalciferol (vitamin D3) [Vitamin D3] 5,000 unit PO DAILY 06/08/21 moxifloxacin 2 drp EACH EYE BID 06/08/21 mycophenolate mofetil 1,000 mg PO BID 06/08/21 sofosbuvir-velpatasvir [Epclusa] 1 tab PO DAILY 06/08/21 tacrolimus 3 mg PO BID 06/08/21 blood sugar diagnostic [Accu-Chek Katey Plus test strp] 06/09/21 famotidine [Acid Controller] 20 mg 06/09/21 calcitriol 0.5 mcg PO QODAY 06/10/21 Hospital Course Operations None Procedures None Summary of Care Provided Minutes Spent on Discharge: 25 Hospital Course: Mr. Nickerson is a 60-year-old male who presented to emergency department [facility] on 06/10/2021 with confusion and concerns that his insulin pump may be not working appropriately. The patient had recently undergone a renal transplant on 03/26/2021 at [facility] in [facility]. He had a prolonged rehab stay following and then was transitioned to his parents for the 2 weeks prior to presentation. It sounds as if his family/parents had not really been insisting him with his medications for hepatitis C and per review of medication still left in the bottle they had been erroneously overused. His spouse called the [facility] transplant team and they were concerned for possible coleman splant failure with request for the patient to be evaluated the emergency department and request for transfer to be arranged. The patient spouse reported that he had been confused ever since beginning his stay at his parents and was transition out of the skilled facility. She reported that typically he was alert and oriented but indicated he had decreased mentation since he had been with them. During his hospitalization here he was aware of who we was about unclear on his location as well as the month on a consistent basis. He was aware of the year and the president of [facility] consistently. His vital signs showed elevated blood pressure but was otherwise unremarkable. His CBC was overall unimpressive. His CMP showed a BUN of 42 and a serum creatinine of 3.10 which was felt to be greater than his baseline. His glucose was 368 and his potassium was 5.[address] of his head was performed and showed cerebral atrophy with chronic small vessel changes but no acute intracranial processes. The case was discussed by the ED physician with [facility] but no current beds were available and therefore the patient was admitted here for care until a bed was available at [facility]. During his hospitalization here he was found to be Covid positive. He had Covid earlier in May and we are unclear if this is lack of antigen clearance secondary to his marked immunosuppression however he remained asymptomatic with regards to his Covid for his hospitalization. He was treated with IV fluids and his serum creatinine improved from 3.10-2.47 on the day of discharge. Nephrology was consulted and they did discuss the case with transplant quality assurance intern at [facility] and alterations were made in his immunosuppressive medications as there was concern that there may be toxicity there. Unfortunately we were unable to draw levels as they are send outs here and take approximately a week for results. His hepatitis C antiviral therapy was held given the concern of overdose on admission. He was given 1 dose of Kayexalate which resolved his hyperkalemia along with IV fluids. During his stay his insulin pump was removed and he was treated with subcu insulin. A bed became available but also [facility] on 06/12/2021 he was transferred there in stable condition. Discharge diagnoses: Toxic/metabolic encephalopathy DEION with recent kidney transplant Hepatitis C DM-1 Hyperkalemia-resolved History of stroke CAD Hypertension Hyperlipidemia Chronic anemia secondary to renal disease BPH NORBERTO Obesity Weight / BMI Weight Weight: 109.6 kg Body Mass Index (BMI) 34.7 ABG / Lab / Microbiology Data Result Diagrams: 06/11/21 09:26 06/11/21 09:26 Laboratory: Laboratory Results - last 24 hr 06/11/21 06:38: POC Glucose 265 H 06/11/21 07:00: Urine Color Yellow, Urine Clarity Clear, Urine pH 5.0, Ur Specific [place] 1.015, Urine Protein 30 H, Urine Glucose (UA) 1000 H, Urine Ketones 5 H, Urine Occult Blood Negative, Urine Nitrite Negative, Urine B ilirubin Negative, Urine Urobilinogen Normal, Ur Leukocyte Esterase Negative, Urine RBC 0 SEEN, Urine WBC 0 SEEN, Ur Squamous Epith Cells 0 SEEN, Urine Bacteria 0 SEEN, Urine Mucus 0 SEEN 06/11/21 09:26: WBC 6.5, RBC 3.97 L, Hgb 12.6 L, Hct 37.9 L, MCV 95.5 H, MCH 31.7, MCHC 33.2, RDW Std Deviation 48.6 H, RDW Coeff of Kindra 13.7, Plt Count 185, MPV 10.9, Immature Gran % (Auto) 0.900, Neut % (Auto) 74.5 H, Lymph % (Auto) 13.5 L, [place] % (Auto) 8.5, Eos % (Auto) 1.7, Baso % (Auto) 0.9, Absolute Neuts (auto) 4.8, Absolute Lymphs (auto) 0.87, Nucleated RBC % 0 06/11/21 09:26: Sodium 140, Potassium 4.7, Chloride 114 H, Carbon Dioxide 18.0 L , Anion Gap 8, BUN 35 H, Creatinine 2.47 H, Estim Creat Clear Calc 33.66, Est GFR (MDRD) Af Amer 35 L, Est GFR (MDRD) Non-Af 29 L, BUN/Creatinine Ratio 14.2, Glucose 251 H, Calcium 10.5 H, Total Bilirubin 0.60, AST 10 L, ALT 25, Alkaline Phosphatase 119 H, Total Protein 5.8 L, Albumin 3.5, Globulin 2.3, Albumin/Globulin Ratio 1.5 06/11/21 11:59: POC Glucose 408 H 06/11/21 15:58: POC Glucose 412 H 06/11/21 20:32: POC Glucose 302 H Microbiology: Microbiology 06/11/21 07:00 Urine, Random Streptococcus pneumoniae Antigen (M - Final 06/11/21 07:00 Urine, Random Legionella Antigen - Final 06/10/21 01:00 Nasal Secretion SARS-CoV-2 Antigen (Rapid) - Final SARS-CoV-2 (COVID 19) Meaningful Use Info Meaningful Use Diagnoses (Choose all that apply): None applicable Discharge Plan Admission Admit Date/Time: 06/10/21 01:16 Attending Provider: Juanita Cardenas Primary Care Provider: Handy Henderson Consulting Providers: Mattie Garcia Discharge Orders/Prescriptions Prescriptions: No Action tamsulosin 0.4 mg capsule 0.4 mg PO QHS RF: 0 (DME) pen needle, diabetic [BD Ultra-Fine Cici Pen Needle] 32 gauge x 5/32 needle See Rx Instructions .ROUTE .MEDSUPPLY Qty: 400 RF: 2 insulin aspart U-100 [Novolog U-100 Insulin aspart] 100 unit/mL solution 120 unit SC DAILY Qty: 110 RF: 3 clopidogrel 75 MG tablet 75 mg PO DAILY RF: 0 albuterol sulfate 1 PUFF inhaler 1 - 2 puff INHALATION Q6H PRN PRN (Reason: Wheezing) RF: 0 vit B comp no.1-uqrrs-W-biotin 1 EACH tablet 1 ea PO DAILY RF: 0 mycophenolate mofetil 250 mg capsule 1,000 mg PO BID RF: 0 tacrolimus 1 mg capsule 3 mg PO BID RF: 0 moxifloxacin 0.5 % drops 2 drp EACH EYE BID RF: 0 cholecalciferol (vitamin D3) [Vitamin D3] 125 mcg (5,000 unit) tablet 5,000 unit PO DAILY RF: 0 sofosbuvir-velpatasvir [Epclusa] 400-100 mg tablet 1 tab PO DAILY RF: 0 famotidine [Acid Controller] 20 mg tablet 20 mg RF: 0 (DME) Accu-Chek Katey Plus test strp Strip See Rx Instructions .ROUTE .MEDSUPPLY RF: 0 calcitriol 0.5 mcg capsule 0.5 mcg PO QODAY RF: 0 (DME) BP cuff Qty: 1 RF: 0 (DME) Dexcom G6 Sensor Device See Rx Instructions .ROUTE .MEDSUPPLY Qty: 9 RF: 1 (DME) Dexcom G6 Transmitter Device See Rx Instructions .ROUTE .MEDSUPPLY Qty: 1 RF: 1 atorvastatin 40 mg tablet 40 mg PO QHS Qty: 90 RF: 3 Referrals / Follow Up: Handy Henderson DO [Primary Care Provider] - Disposition Disposition (needs filled in before D/C Order can be placed): Acute [facility]
== END 2021-06-11 21:20 | disposition short-term general hospital (02) ==
LOC: ED 23:42 → PCU 06-10 06:13
PROVIDERS: Surgery; Admitting Provider Family Medicine; Emergency Provider Emergency Medicine; PCP Student in an Organized Health Care Education/Training Program; Visit Provider Internal Medicine
DX: E10.65 Type 1 diabetes mellitus with hyperglycemia (principal); N17.9 Acute kidney failure, unspecified; E10.42 Type 1 diabetes mellitus with diabetic polyneuropathy; E10.22 Type 1 diabetes mellitus with diabetic chronic kidney disease; I12.0 Hypertensive chronic kidney disease with stage 5 chronic kidney disease or end stage renal disease; N18.6 End stage renal disease; U07.1 COVID-19; I25.10 Atherosclerotic heart disease of native coronary artery without angina pectoris; D63.1 Anemia in chronic kidney disease; G47.33 Obstructive sleep apnea (adult) (pediatric); R41.82 Altered mental status, unspecified; B19.20 Unspecified viral hepatitis C without hepatic coma; N40.0 Benign prostatic hyperplasia without lower urinary tract symptoms; G25.2 Other specified forms of tremor; E87.5 Hyperkalemia; E66.9 Obesity, unspecified; E78.5 Hyperlipidemia, unspecified; G92.9 Unspecified toxic encephalopathy; M19.90 Unspecified osteoarthritis, unspecified site; T85.694A Other mechanical complication of insulin pump, initial encounter; Z79.02 Long term (current) use of antithrombotics/antiplatelets; Z94.0 Kidney transplant status; Z79.899 Other long term (current) drug therapy; Y84.9 Medical procedure, unspecified as the cause of abnormal reaction of the patient, or of later complication, without mention of misadventure at the time of the procedure; Z79.4 Long term (current) use of insulin; Z87.891 Personal history of nicotine dependence; Z68.35 Body mass index [BMI] 35.0-35.9, adult
CPT/HCPCS: 36415; 70450; 80048; 80053; 80076; 81001; 82728; 82962; 83615; 83880; 84145; 85025; 85379; 86140; 87449; 87811; 93005; 96361; 96372; 96374; 97162; 97165; 99218; 99251; 99285; J7030; A4216; G0378; G0463

== ENCOUNTER 2022-01-30 09:30 | Emergency (ER) | payer OTHER, MEDICARE, MEDICAID, SELFPAY ==
[2022-01-30 09:32] VITALS: BP 114/85; PULSE 82; RESP 18; TEMP 36.1; O2SAT 100; BMI 36.1
--- NOTE | 2022-01-30 10:03 | EX.ED.DYSGE1 ---
HPI History of Present Illness Chief Complaint: Nausea/Vomiting Informant: patient and spouse/S.O. Narrative Narrative: Watery loose stools for little over a week. No nausea or vomiting. No abdominal pain. No fevers. Denies recent antibiotics. Renal transplant patient on immunosuppressants for the past year followed by Dr. Cunningham at [facility]. Using Pepcid that was improving none today. Had 2 episodes today. Concern for dehydration. Baseline GFR 30-36 per patient. History of coronary disease with stent placement. Denies CHF. Diabetes with insulin pump. [facility] Medical History Abdominal pain Arthritis Atherosclerosis of [place] coronary artery of [place] heart without angina pectoris Cataracts, bilateral CKD (chronic kidney disease) stage 4, GFR 15-29 ml/min COVID-19 virus infection (06/10/21) CPAP (continuous positive airway pressure) dependence Diabetes type 1, uncontrolled Diabetic polyneuropathy associated with type 1 diabetes mellitus DM2 (diabetes mellitus, type 2) Encephalopathy acute Essential hypertension Former smoker Hepatitis C test positive High cholesterol History of renal disease Hyperlipidemia Incomplete right bundle branch block Insulin dependent diabetes mellitus Kidney disease Malfunction of arteriovenous dialysis fistula NORBERTO (obstructive sleep apnea) Pancreatitis Prostate disease Sleep apnea Stroke TIA (transient ischemic attack) Tobacco abuse Toxic metabolic encephalopathy Type 1 diabetes Uncontrolled type 1 diabetes mellitus with ESRD (end-stage renal disease) Walker as ambulation aid Wears dentures Wears glasses Home Medications albuterol sulfate 90 mcg/actuation aerosol inhaler 1 - 2 puff inhalation Q6H PRN PRN Wheezing 07/24/19 [History Last Taken 10/27/19] BP cuff #1 ea 11/27/19 [Rx Last Taken Unknown] pen needle, diabetic 32 gauge x 5/32 (BD Ultra-Fine Cici Pen Needle) #400 ea 02/12/20 [Rx Last Taken Unknown] tamsulosin 0.4 mg capsule 0.4 mg PO QHS 04/22/20 [History Last Taken Unknown] atorvastatin 40 mg tablet 40 mg PO QHS #90 tabs 03/04/21 [Rx Last Taken Unknown] moxifloxacin 0.5 % eye drops 2 drp EACH EYE BID 06/08/21 [History Last Taken Unknown] carvedilol 12.5 mg tablet 12.5 mg PO BID #180 tabs 07/20/21 [Rx Last Taken Unknown] Novolog U-100 Insulin aspart 100 unit/mL subcutaneous solution (insulin aspart U-100) 120 unit (1.2 mL) continuous subcutaneous infusion .continuous #108 mL 07/28/21 [Rx Last Taken Unknown] glucagon 1 mg/0.2 mL subcutaneous auto-injector 1 mg subcut ONCE PRN hypoglycemic 07/28/21 [History Last Taken Unknown] propylene glycol 0.6 % eye drops (Systane Balance) 1 drp ophthalmic (eye) DAILY PRN lubricant 07/28/21 [History Last Taken Unknown] mycophenolate mofetil 250 mg capsule 500 mg PO BID 09/19/21 [History Last Taken Unknown] prednisolone acetate 1 % eye drops,suspension (Pred Forte) 1 drp ophthalmic (eye) .COMPLEX 09/19/21 [History Last Taken Unknown] sulfamethoxazole 800 mg-trimethoprim 160 mg tablet 1.5 tab PO .QOD 09/19/21 [History Last Taken Unknown] blood-glucose sensor (Dexcom G6 Sensor device) #9 ea 09/22/21 [Rx Last Taken Unknown] blood-glucose transmitter (Dexcom G6 Transmitter device) #1 ea 09/22/21 [Rx Last Taken Unknown] Accu-Chek Katey Plus test strp (blood sugar diagnostic) #360 ea 09/27/21 [Rx Last Taken Unknown] clopidogrel 75 mg tablet 75 mg PO DAILY #90 tabs 10/19/21 [Rx Last Taken Unknown] loperamide 2 mg tablet 2 mg PO Q6H PRN diarrhea #30 tabs 01/30/22 [Rx Last Taken Unknown] sirolimus 0.5 mg tablet 1 mg PO DAILY 01/30/22 [History Last Taken Unknown] Allergy/AdvReac Type Severity Reaction Status Date / Time No Known Allergies Allergy Verified 01/30/22 09:34 Family History Mother Diabetes Thyroid disorder Hypertension Hyperlipidemia Surgical History Arteriovenous fistula for hemodialysis in place, primary H/O cardiac catheterization History of bilateral cataract extraction History of coronary artery stent placement (04/21/11) History of kidney transplant (03/27/21) history of peritoneal catheter insertion (~03/2020) Kidney transplant recipient Kidney transplant recipient Problem with dialysis access (04/05/20) Status post glaucoma surgery Social History household members: spouse Smoking Status: Former smoker how long ago did patient quit smokin months alcohol intake: current alcohol intake frequency: holidays/special occasions only substance use type: does not use caffeine: Yes Type: coffee Number of servings: 2 ROS ROS ED Constitutional Constitutional ED: Denies chills, fever(s) or sweats Eyes Eyes: Denies change in vision ENT ENT ED: Denies dysphagia or sore throat Cardiovascular Cardiovascular: Denies chest pain, leg edema, palpitations or racing heartbeat Respiratory/Chest Respiratory/Chest: Denies cough, dyspnea or dyspnea on exertion Gastrointestinal Gastrointestinal: Reports diarrhea; Denies abdominal pain, nausea or vomiting Genitourinary Genitourinary ED: Denies dysuria, hematuria or urinary frequency Musculoskeletal Musculoskeletal: Denies back pain, extremity pain or neck pain Integumentary Denies rash or wounds Neurologic Neurologic: Denies headache(s), paresthesias or weakness EXAM Physical Exam Const Vital Signs: 01/30/22 09:32 01/30/22 11:40 01/30/22 13:00 Temperature 97.0 F L Temperature Source Temporal Pulse Rate 82 72 71 Respiratory Rate 18 18 Blood Pressure 114/85 H 143/74 H 143/70 H Blood Pressure Mean 94 97 94 Pulse Ox 100 99 99 Oxygen Delivery Method Room Air Room Air Room Air 01/30/22 16:14 Temperature Temperature Source Pulse Rate 76 Respiratory Rate 16 Blood Pressure Blood Pressure Mean Pulse Ox 99 Oxygen Delivery Method Room Air Positive well nourished and well developed Constitutional Narrative: Nontoxic General Appearance ED: well developed and NAD HEENT Reports dry mucous membranes HEENT Narrative: Mild dry mucosal membranes. normocephalic and atraumatic Mouth ED: Yes dry mucous membranes Mouth: dry mucous membranes Eyes PERRL, EOMs intact bilaterally and conjunctivae normal General Eye ED: Yes normal appearance of both eyes Neck no lymphadenopathy and supple General: Negative for tenderness Chest Wall Chest: Negative for tenderness Resp normal respiratory effort and normal air movement Effort and Inspection: symmetric chest movement; Negative for respiratory distress Cardio regular rate, regular rhythm and no murmurs Peripheral Pulses: pulses 2+ throughout GI normal to inspection, nondistended, normoactive bowel sounds and non-tender GI Narrative: Insulin pump left lower quadrant, glucose monitor right upper quadrant. All clean, dry, intact. Palpation: Negative for guarding or rebound tenderness present Back/Spine no CVA tenderness and no thoracic nor lumbar tenderness Extremity normal to inspection General Extremety ED: Negative for edema or tenderness General Extremity: Negative for edema Neuro oriented x3 and no sensory deficits noted Sensorium / Orientation: awake and alert Skin no rashes or lesions noted and no wounds MDM MDM MDM Narrative Medical decision making narrative: Patient nontoxic, mild dry mucosal membranes. Reporting diarrhea for the past week watery nonbloody. Given IV fluids I did check labs electrolytes were normal creatinine 2.4 stable from PREVIOUS recent labs. GFR is 30. This is in his range from his history. Initial reevaluation there is no loose stools he stated with p.o. food intake, he would have diarrhea. Therefore monitored with his immunocompromised state, he was ordered a diet he was able to give a stool sample. He will department and monitored until specimen results. C. difficile and enteric pathogens were negative. Is more reassured. Discontinue oral fluids for hydration. Prescription for Lomotil to use as needed. Discussed clinical dehydration. Oral fluids continue at home. Return precautions. All questions were answered. Lab Data Attestation: I reviewed the patient's lab results. Labs: Laboratory Results - last 24 hr 01/30/22 01/30/22 10:13 10:13 WBC 3.6 L RBC 4.19 L Hgb 11.9 L Hct 36.4 L MCV 86.9 MCH 28.4 MCHC 32.7 RDW Std Deviation 45.2 H RDW Coeff of Kindra 14.3 Plt Count 148 L MPV 10.2 Immature Gran % (Auto) 0.800 Neut % (Auto) 58.7 Lymph % (Auto) 19.7 [place] % (Auto) 18.8 H Eos % (Auto) 1.4 Baso % (Auto) 0.6 Absolute Neuts (auto) 2.1 Absolute Lymphs (auto) 0.70 L Nucleated RBC % 0 Sodium 137 Potassium 3.9 Chloride 108 H Carbon Dioxide 21.0 Anion Gap 8 BUN 25 H Creatinine 2.40 H Estim Creat Clear Calc 34.22 Est GFR (MDRD) Af Amer 36 L Est GFR (MDRD) Non-Af 30 L BUN/Creatinine Ratio 10.4 Glucose 220 H Calcium 9.6 Discharge Plan Triage Chief Complaint: Nausea/Vomiting ED Provider: Troy Vega Dx/Rx/DC Orders Clinical Impression: Diarrhea, Kidney transplant recipient, Dehydration, Immunocompromised state, Diabetes, Presence of insulin pump Instructions: Dehydration, ED Diarrhea, Unknown Cause Prescriptions: New loperamide 2 mg tablet 2 mg PO Q6H PRN (Reason: diarrhea) Qty: 30 0RF No Action tamsulosin 0.4 mg capsule 0.4 mg PO QHS Label Comments: TAKE 1 CAPSULE BY MOUTH EVERYDAY AT BEDTIME (DME) pen needle, diabetic [BD Ultra-Fine Cici Pen Needle] 32 gauge x 5/32 needle See Rx Instructions .ROUTE .MEDSUPPLY Qty: 400 2RF Rx Instructions: 4 times a day glucagon 1 mg/0.2 mL auto-injector 1 mg subcut ONCE PRN (Reason: hypoglycemic) Rx Instructions: as a single dose; may repeat once after 15 minutes if no response Systane Balance 0.6 % drops 1 drp ophthalmic (eye) DAILY PRN (Reason: lubricant) insulin aspart U-100 [Novolog U-100 Insulin aspart] 100 unit/mL solution 120 unit continuous subcutaneous infusion .continuous Qty: 108 3RF Rx Instructions: via insulin pump sulfamethoxazole-trimethoprim 800-160 mg tablet 1.5 tab PO .QOD prednisolone acetate [Pred Forte] 1 % drops,suspension 1 drp ophthalmic (eye) .COMPLEX Rx Instructions: 1 drp into the eye(s) as directed; albuterol sulfate 1 PUFF inhaler 1 - 2 puff INHALATION Q6H PRN PRN (Reason: Wheezing) moxifloxacin 0.5 % drops 2 drp EACH EYE BID mycophenolate mofetil 250 mg capsule 500 mg PO BID Rx Instructions: 1250 AT HS sirolimus 0.5 mg tablet 1 mg PO DAILY (DME) BP cuff Qty: 1 0RF Rx Instructions: For use of monitoring BP atorvastatin 40 mg tablet 40 mg PO QHS Qty: 90 3RF carvedilol 12.5 mg tablet 12.5 mg PO BID Qty: 180 3RF Rx Instructions: must administer with a meal/food (DME) Dexcom G6 Sensor Device See Rx Instructions .ROUTE .MEDSUPPLY Qty: 9 1RF Rx Instructions: As directed (DME) Dexcom G6 Transmitter Device See Rx Instructions .ROUTE .MEDSUPPLY Qty: 1 1RF Rx Instructions: change every 90 days (DME) Accu-Chek Katey Plus test strp Strip See Rx Instructions .ROUTE .MEDSUPPLY Qty: 360 1RF Rx Instructions: 4 times daily clopidogrel 75 mg tablet 75 mg PO DAILY Qty: 90 3RF Primary Care Provider: Handy Henderson Referrals: Handy Henderson DO [Primary Care Provider] - 5-7 Days Activity Restrictions/Additional Instructions: Clinical dehydration. your kidney numbers are stable from previous. Stool studies obtained negative for C. difficile or any enteropathic pathogens. Continue oral fluids for hydration. Use loperamide as needed. Follow-up with your doctor. Return if any worsening symptoms. Disposition Disposition: Home, Self Care
[2022-01-30 10:29] LABS: Absolute Neutrophil Count 2.1 X10^3/uL (2.0-7.7); Basophil# 0.02 X10^3/uL; Basophil% 0.6 % (0-1); Eosinophil# 0.05 X10^3/uL; Eosinophils% 1.4 % (0-5); Hematocrit 36.4 % (40-54); Hemoglobin 11.9 g/dL (13.0-16.5); Lymphocyte % 19.7 % (19-41); Mean Corp Hgb Conc 32.7 g/dL (32-36); Mean Corpuscular Hgb 28.4 pg (27.0-32.0); Mean Corpuscular Volume 86.9 fL (80-94); Mean Platelet Vol. 10.2 fl (6.2-12.0); Monocyte# 0.67 X10^3/uL; Monocyte% 18.8 % (0-10); NRBC Flagged by Analyzer 0 % (0-5); Neutrophil # 2.09 X10^3/uL (2.7-7.7); Neutrophil % 58.7 % (47-70); Platelet Count 148 K/mm3 (150-450); RBC Distribution Width CV 14.3 % (11.6-14.6); RBC Distribution Width SD 45.2 fl (35.1-43.9); Red Blood Count 4.19 M/mm3 (4.6-6.2); White Blood Count 3.6 K/mm3 (4.4-11.0)
[2022-01-30 10:37] LABS: Anion Gap 8 (5-15); BUN 25 mg/dL (7-18); BUN/Creat Ratio 10.4 RATIO (10-20); Calcium,Total 9.6 mg/dL (8.5-10.1); Chloride 108 mmol/L (98-107); EST Glomerular Filtration Rate 30 mL/min (>60); Est Glom Filt Rate - Afr Amer 36 mL/min (>60); Estimated Creatinine Clearance 34.22 ml/min; Glucose 220 mg/dL (74-106); Potassium 3.9 mmol/L (3.5-5.1); Sodium Level 137 mmol/L (136-145)
[2022-01-30 11:40] VITALS: BP 143/74; PULSE 72; RESP 18; O2SAT 99
[2022-01-30 13:00] VITALS: BP 143/70; PULSE 71; O2SAT 99
[2022-01-30 16:14] VITALS: PULSE 76; RESP 16; O2SAT 99
[2022-01-30] MEDS: Acetaminophen 500 MG Tablet 1000 MG PO (16:16)
== END 2022-01-30 16:31 | disposition home or self-care (01) ==
PROVIDERS: Emergency Provider Emergency Medicine; PCP Student in an Organized Health Care Education/Training Program; Visit Provider Emergency Medicine
DX: R19.7 Diarrhea, unspecified (principal); D84.9 Immunodeficiency, unspecified; E10.42 Type 1 diabetes mellitus with diabetic polyneuropathy; E10.22 Type 1 diabetes mellitus with diabetic chronic kidney disease; N18.6 End stage renal disease; I12.0 Hypertensive chronic kidney disease with stage 5 chronic kidney disease or end stage renal disease; R11.2 Nausea with vomiting, unspecified; Z87.891 Personal history of nicotine dependence; E78.00 Pure hypercholesterolemia, unspecified; E86.0 Dehydration; I25.10 Atherosclerotic heart disease of native coronary artery without angina pectoris; E78.5 Hyperlipidemia, unspecified; Z96.41 Presence of insulin pump (external) (internal); Z95.5 Presence of coronary angioplasty implant and graft; Z94.0 Kidney transplant status
CPT/HCPCS: 80048; 85025; 87493; 87506; 99283; J7040; A4216

== ENCOUNTER → 2022-04-28 | Outpatient (CLI) | payer OTHER, MEDICARE, MEDICAID, SELFPAY ==
[2022-04-28 08:23] LABS: Glucose 82 mg/dL (74-106)
[2022-04-30 22:27] LABS: C-Peptide < 0.1 ng/mL (1.1-4.4)
== END | disposition home or self-care (01) ==
LOC: LAB 07:21
PROVIDERS: PCP Student in an Organized Health Care Education/Training Program; Referring Provider Internal Medicine Endocrinology, Diabetes & Metabolism; Visit Provider Internal Medicine Endocrinology, Diabetes & Metabolism
DX: E10.9 Type 1 diabetes mellitus without complications (principal)
CPT/HCPCS: 36415; 82947; 84681

== ENCOUNTER 2022-07-19 12:22 | Emergency (ER) | payer OTHER, MEDICARE, MEDICAID, SELFPAY ==
[2022-07-19 12:22] VITALS: BP 158/144; PULSE 66; RESP 16; TEMP 36.6; O2SAT 100; BMI 35.3
--- NOTE | 2022-07-19 12:34 | CT_ITS ---
STUDY: CT CERVICAL SPINE WITHOUT CONTRAST REASON FOR EXAM: Male, 61 years old. Facial trauma due to a fall. RADIATION DOSAGE (If Supplied By Facility): CTDIvol = ( 30.01 ) mGy, DLP = ( 623.85 ) mGycm TECHNIQUE: High resolution transaxial imaging was performed without contrast material. Sagittal and coronal images were reconstructed. Individualized dose optimization techniques were used for this CT. COMPARISON: None FINDINGS: Normal craniovertebral junction. There are degenerative changes of the anterior atlantoaxial articulation. Normal odontoid process. There is straightening of the normal cervical lordosis. Normal vertebral bodies and posterior osseous elements. C2-3: Normal endplates. Normal disc height and morphology. Normal central canal and intervertebral neuroforamina. C3-4: Normal endplates. Normal disc height and morphology. Normal central canal and intervertebral neuroforamina. C4-5: Anterior spondylosis. Uncovertebral arthrosis more prominent on the left side causing mild degree of left neural foraminal stenosis. C5-6: Moderate degree of disc space narrowing and spondylosis. Uncovertebral arthrosis. Mild degree of bilateral neural foraminal stenosis. Central posterior spur causing minimal deformity of the central canal. C6-7: Moderate degree of disc space narrowing. Spondylosis. Uncovertebral arthrosis. Mild degree of bilateral neural foraminal stenosis. C7-T1: Moderate degree of disc space narrowing. Spondylosis. Normal visualized soft tissue structures. CT/Spine Cervical without Contras IMPRESSION: Multilevel degenerative changes, as described above. Electronically Signed: Gumaro Barbosa MD at 13:10 EDT ,
--- NOTE | 2022-07-19 12:34 | CT_ITS ---
STUDY: CT FACIAL BONES WITHOUT CONTRAST REASON FOR EXAM: Male, 61 years old. Facial trauma due to a fall. RADIATION DOSAGE (If Supplied By Facility): CTDIvol = ( 29.38 ) mGy, DLP = ( 576.84 ) mGycm TECHNIQUE: The patient was scanned in a multi detector CT scanner. Sagittal and coronal images were reconstructed. Individualized dose optimization techniques were used for this CT. COMPARISON: None. FINDINGS: There is a 6.1 mm skin nodule overlying the right mandibular region. Normal orbital [place]arn[place] and orbital contents. Normal nasal bones and anterior nasal spine. Normal facial bones. There is no demonstrated fracture. Normal visualized paranasal sinuses. CT/Sinus/Facial Bone IMPRESSION: Normal unenhanced CT of the facial bones. Electronically Signed: Gumaro Barbosa MD at 13:08 EDT ,
--- NOTE | 2022-07-19 12:34 | CT_ITS ---
STUDY: CT BRAIN WITHOUT CONTRAST REASON FOR EXAM: Male, 61 years old. Facial trauma due to a fall. No loss of consciousness. RADIATION DOSAGE (If Supplied By Facility): CTDIvol = ( 44.99 ) mGy, DLP = ( 829.85 ) mGycm TECHNIQUE: Transaxial CT imaging of the brain was performed without administration of intravenous contrast material. Individualized dose optimization techniques were used for this CT. COMPARISON: Comparison is made with prior study of June 09, 2021. FINDINGS: Normal soft tissue structures. Normal calvarium. There is mild cerebral atrophy with widening of the extra-axial spaces and ventricular dilatation. Normal white matter tracts of the cerebral hemispheres. Normal basal ganglia and thalami. Normal brainstem. Normal cerebellum. There is no intracranial hemorrhage. There are no findings of an acute ischemic infarction. Normal visualized paranasal sinuses. CT/Brain/Head without Contrast IMPRESSION: Chronic involutional changes of the brain. Electronically Signed: Gumaro Barbosa MD at 13:06 EDT ,
--- NOTE | 2022-07-19 12:36 | EDS_ITS ---
HPI HPI - Fall History of Present Illness Chief Complaint: Fall Narrative Narrative: Patient presents after a mechanical fall. He was ambulating did not see the curve and fell hit his face. No loss of consciousness he has abrasions over his forearms, and he has some pain in his lower teeth. He is anticoagulated on Plavix. He did not feel lightheaded. He tells me the glare of the son and the lack of pain on the curve made him not see the curve and he tripped and fell on concrete. He has no back pain he is able to ambulate without any extremity injury other than the abrasions on his forearms. [facility] Medical History Abdominal pain Arthritis Atherosclerosis of [place] coronary artery of [place] heart without angina pectoris Cataracts, bilateral CKD (chronic kidney disease) stage 4, GFR 15-29 ml/min COVID-19 virus infection (06/10/21) CPAP (continuous positive airway pressure) dependence Diabetes mellitus type 1 Diabetes type 1, uncontrolled Diabetic polyneuropathy associated with type 1 diabetes mellitus DM2 (diabetes mellitus, type 2) Encephalopathy acute Essential hypertension Former smoker Hepatitis C test positive High cholesterol History of renal disease Hyperlipidemia Incomplete right bundle branch block Insulin dependent diabetes mellitus Kidney disease Malfunction of arteriovenous dialysis fistula NORBERTO (obstructive sleep apnea) Pancreatitis Prostate disease Sleep apnea Stroke TIA (transient ischemic attack) Tobacco abuse Toxic metabolic encephalopathy Type 1 diabetes Uncontrolled type 1 diabetes mellitus with ESRD (end-stage renal disease) Walker as ambulation aid Wears dentures Wears glasses Home Medications albuterol sulfate 90 mcg/actuation aerosol inhaler 1 - 2 puff inhalation Q6H PRN PRN Wheezing 07/24/19 [History Last Taken 10/27/19] BP cuff #1 ea 11/27/19 [Rx Last Taken Unknown] pen needle, diabetic 32 gauge x /32 (BD Ultra-Fine Cici Pen Needle) #400 ea 02/12/20 [Rx Last Taken Unknown] tamsulosin 0.4 mg capsule 0.4 mg PO QHS 04/22/20 [History Last Taken Unknown] moxifloxacin 0.5 % eye drops 2 drp EACH EYE BID 06/08/21 [History Last Taken Unknown] glucagon 1 mg/0.2 mL subcutaneous auto-injector 1 mg subcut ONCE PRN hypoglycemic 07/28/21 [History Last Taken Unknown] propylene glycol 0.6 % eye drops (Systane Balance) 1 drp ophthalmic (eye) DAILY PRN lubricant 07/28/21 [History Last Taken Unknown] mycophenolate mofetil 250 mg capsule 500 mg PO BID 09/19/21 [History Last Taken Unknown] prednisolone acetate 1 % eye drops,suspension (Pred Forte) 1 drp ophthalmic (eye) .COMPLEX 09/19/21 [History Last Taken Unknown] sulfamethoxazole 800 mg-trimethoprim 160 mg tablet 1.5 tab PO .QOD 09/19/21 [History Last Taken Unknown] blood-glucose sensor (Dexcom G6 Sensor device) #9 ea 09/22/21 [Rx Last Taken Unknown] blood-glucose transmitter (Dexcom G6 Transmitter device) #1 ea 09/22/21 [Rx Last Taken Unknown] loperamide 2 mg tablet 2 mg PO Q6H PRN diarrhea #30 tabs 01/30/22 [Rx Last Taken Unknown] sirolimus 0.5 mg tablet 1 mg PO DAILY 01/30/22 [History Last Taken Unknown] Novolog U-100 Insulin aspart 100 unit/mL subcutaneous solution (insulin aspart U-100) 120 unit (1.2 mL) continuous subcutaneous infusion .continuous #108 mL 02/16/22 [Rx Last Taken Unknown] aspirin 325 mg tablet 325 mg PO DAILY 03/17/22 [History Last Taken Unknown] famotidine 20 mg tablet (Pepcid) 20 mg PO DAILY 03/17/22 [History Last Taken Unknown] atorvastatin 40 mg tablet 40 mg PO QHS #90 tabs 06/09/22 [Rx Last Taken Unknown] carvedilol 12.5 mg tablet 12.5 mg PO BID #180 tabs 06/09/22 [Rx Last Taken Unknown] clopidogrel 75 mg tablet 75 mg PO DAILY #90 tabs 06/12/22 [Rx Last Taken Unknown] Accu-Chek Katey Plus test strp (blood sugar diagnostic) #360 ea 06/13/22 [Rx Last Taken Unknown] Allergy/AdvReac Type Severity Reaction Status Date / Time No Known Allergies Allergy Verified 07/19/22 12:25 Family History Mother Diabetes Thyroid disorder Hypertension Hyperlipidemia Surgical History Arteriovenous fistula for hemodialysis in place, primary H/O cardiac catheterization History of bilateral cataract extraction History of coronary artery stent placement (04/21/11) History of kidney transplant (03/27/21) history of peritoneal catheter insertion (~03/2020) Kidney transplant recipient Kidney transplant recipient Problem with dialysis access (04/05/20) Status post glaucoma surgery Social History household members: spouse Smoking Status: Current some day smoker tobacco type: cigarettes how long ago did patient quit smokin months alcohol intake: current alcohol intake frequency: holidays/special occasions only substance use type: does not use caffeine: Yes Type: coffee Number of servings: 2 ROS ROS ED ROS Narrative Social: Noncontributory, lives with Medications: Reviewed Past medical history: Reviewed, includes diabetes, hypertension hypercholesterolemia, history of end-stage renal disease, he used to be on hemodialysis about a year ago he had a transplant. Review of systems General: No loss of consciousness HEENT: Face injury as in HPI Neck: No neck pain Cardiovascular: Patient denies any chest pain or palpitations Chest wall: No chest wall contusions Respiratory: There is no shortness of breath GI: There is no nausea vomiting diarrhea or abdominal pain, no abdominal wall contusions Skin: Abrasions as in HPI Neurological: Patient has no memory loss, confusion, or any focal weakness Psychiatric: No recent behavioral changes Back: No back pain, no problems with ambulation Musculoskeletal: No other extremity injury EXAM Physical Exam Narrative Exam Narrative: Physical exam Vitals reviewed General: Patient is relatively comfortable in the bed. HEENT: Tenderness over the alveolar ridge of the lower central teeth but no deformity and no laxity. No broken teeth. No nasal septal hematoma. Abrasion over the nasal bridge. Head: No other signs of head injury Eyes: Extraocular movements intact without pain. Pupils are 2 mm and reactive Neck: No C-spine tenderness with full range of motion Heart: Regular rate normal pulses Chest wall: No chest wall pain Lungs clear lungs bilaterally with normal inspiration and expiration without tachypnea GI: Abdomen is soft and nontender there is no mass no guarding no abdominal wall contusion : Stable pelvis Musculoskeletal: Small abrasions and skin flaps of right and left dorsum of the arms, no bony tenderness Skin: As above Neurological: Patient is alert and oriented with no focal deficits Const Vital Signs: 07/19/22 12:22 07/19/22 12:32 Temperature 98 F Temperature Source Temporal Pulse Rate 66 Respiratory Rate 16 Respiratory Effort Normal Non-Labored Blood Pressure 158/144 H Blood Pressure Mean 148 Pulse Ox 100 Oxygen Delivery Method Room Air MDM MDM MDM Narrative Medical decision making narrative: I discussed with the who is at the bedside she gave me a history since she was with the patient. Because of the patient's fall a CT of the face head and C-spine were ordered interpreted by me and radiologist is normal. The abrasions and skin flaps were repaired using Steri-Strips per the nurse. Tetanus is up-to-date. I thought about a blood work but patient did have a mechanical fall and otherwise has been baseline therefore there is no reason for emergent blood work at this time. He is reassured does not require analgesia and can ambulate and be discharged. Radiography Diagnostic Testing: Clinical Impression(s) from Imaging Studies Brain CT 07/19/22 12:34 IMPRESSION: Chronic involutional changes of the brain. Electronically Signed: Gumaro Barbosa MD at 13:06 EDT , Cervical Spine CT 07/19/22 12:34 IMPRESSION: Multilevel degenerative changes, as described above. Electronically Signed: Gumaro Barbosa MD at 13:10 EDT , Facial/Sinus 07/19/22 12:34 IMPRESSION: Normal unenhanced CT of the facial bones. Electronically Signed: Gumaro Barbosa MD at 13:08 EDT , Discharge Plan Triage Chief Complaint: Fall ED Provider: Alden Gallardo Dx/Rx/DC Orders Clinical Impression: Contusion of face, Concussion without loss of consciousness, Abrasion of skin, Fall Instructions: ED Fall Prevention Prescriptions: No Action tamsulosin 0.4 mg capsule 0.4 mg PO QHS Label Comments: TAKE 1 CAPSULE BY MOUTH EVERYDAY AT BEDTIME (DME) pen needle, diabetic [BD Ultra-Fine Cici Pen Needle] 32 gauge x 5/32 needle See Rx Instructions .ROUTE .MEDSUPPLY Qty: 400 2RF Rx Instructions: 4 times a day glucagon 1 mg/0.2 mL auto-injector 1 mg subcut ONCE PRN (Reason: hypoglycemic) Rx Instructions: as a single dose; may repeat once after 15 minutes if no response Systane Balance 0.6 % drops 1 drp ophthalmic (eye) DAILY PRN (Reason: lubricant) sulfamethoxazole-trimethoprim 800-160 mg tablet 1.5 tab PO .QOD prednisolone acetate [Pred Forte] 1 % drops,suspension 1 drp ophthalmic (eye) .COMPLEX Rx Instructions: 1 drp into the eye(s) as directed; aspirin 325 mg tablet 325 mg PO DAILY famotidine [Pepcid] 20 mg tablet 20 mg PO DAILY albuterol sulfate 1 PUFF inhaler 1 - 2 puff INHALATION Q6H PRN PRN (Reason: Wheezing) moxifloxacin 0.5 % drops 2 drp EACH EYE BID mycophenolate mofetil 250 mg capsule 500 mg PO BID Rx Instructions: 1250 AT HS sirolimus 0.5 mg tablet 1 mg PO DAILY loperamide 2 mg tablet 2 mg PO Q6H PRN (Reason: diarrhea) Qty: 30 0RF (DME) BP cuff Qty: 1 0RF Rx Instructions: For use of monitoring BP (DME) Dexcom G6 Sensor Device See Rx Instructions .ROUTE .MEDSUPPLY Qty: 9 1RF Rx Instructions: As directed (DME) Dexcom G6 Transmitter Device See Rx Instructions .ROUTE .MEDSUPPLY Qty: 1 1RF Rx Instructions: change every 90 days insulin aspart U-100 [Novolog U-100 Insulin aspart] 100 unit/mL solution 120 unit continuous subcutaneous infusion .continuous Qty: 108 1RF Rx Instructions: via insulin pump atorvastatin 40 mg tablet 40 mg PO QHS Qty: 90 3RF carvedilol 12.5 mg tablet 12.5 mg PO BID Qty: 180 3RF Rx Instructions: must administer with a meal/food clopidogrel 75 mg tablet 75 mg PO DAILY Qty: 90 3RF (DME) Accu-Chek Katey Plus test strp Strip See Rx Instructions .ROUTE .MEDSUPPLY Qty: 360 1RF Rx Instructions: 4 times daily Primary Care Provider: Handy Henderson Referrals: Handy Henderson DO [Primary Care Provider] - 3-5 Days Disposition Disposition: Home, Self Care
== END 2022-07-19 13:36 | disposition home or self-care (01) ==
LOC: ED 12:46
PROVIDERS: Emergency Provider Emergency Medicine; PCP Student in an Organized Health Care Education/Training Program; Visit Provider Emergency Medicine
DX: S06.0X0A Concussion without loss of consciousness, initial encounter (principal); E10.42 Type 1 diabetes mellitus with diabetic polyneuropathy; E10.22 Type 1 diabetes mellitus with diabetic chronic kidney disease; E10.638 Type 1 diabetes mellitus with other oral complications; N18.6 End stage renal disease; I12.0 Hypertensive chronic kidney disease with stage 5 chronic kidney disease or end stage renal disease; Z79.4 Long term (current) use of insulin; F17.200 Nicotine dependence, unspecified, uncomplicated; S00.81XA Abrasion of other part of head, initial encounter; I25.10 Atherosclerotic heart disease of native coronary artery without angina pectoris; E78.00 Pure hypercholesterolemia, unspecified; W19.XXXA Unspecified fall, initial encounter; Z95.5 Presence of coronary angioplasty implant and graft; Z94.0 Kidney transplant status; G47.33 Obstructive sleep apnea (adult) (pediatric)
CPT/HCPCS: 70450; 70486; 72125; 99283

== ENCOUNTER → 2023-04-06 | Outpatient (CLI) | payer MEDICARE, MEDICAID, SELFPAY ==
--- NOTE | 2023-04-06 12:48 | VDLE_ITS ---
Reason For Study: Edema RIGHT LEFT GSV is normal. GSV is normal. CFV is compressible, spontaneous, phasic, CFV is compressible, spontaneous, phasic, competent and demonstrates normal competent, and demonstrates normal augmentation. augmentation. FV is compressible, spontaneous, phasic, FV is compressible, spontaneous, phasic, competent and demonstrates normal competent and demonstrates normal augmentation. augmentation. POP V is compressible, spontaneous, phasic, POP V is compressible, spontaneous, phasic, competent and demonstrates normal competent and demonstrates normal augmentation. augmentation. T/P Trunk is compressible. T/P Trunk is compressible. PTV is compressible. PTV is compressible. RT PerV is compressible. LT PerV is compressible. Procedure This is a venous duplex using B-mode, color flow and spectral Doppler. Exam performed in department. A preliminary report was called and/or faxed to Sam VALERO. VL/Venous Duplex US - [place] Extrem Interpretation Summary No evidence for acute deep venous thrombosis bilateral lower extremities with p atent and compressible bilateral great saphenous veins. Ordering Physician: Erica Vargas Referring Physician: Handy Henderson Performed By: Liset Jarrett RVT
== END | disposition home or self-care (01) ==
LOC: CVS 12:42
PROVIDERS: PCP Student in an Organized Health Care Education/Training Program; Referring Provider Nurse Practitioner; Visit Provider Nurse Practitioner
DX: R60.0 Localized edema (principal)
CPT/HCPCS: 93970

== ENCOUNTER 2023-04-25 10:50 | Emergency (ER) | payer MEDICARE, MEDICAID, SELFPAY ==
[2023-04-25 10:52] VITALS: BP 161/90; PULSE 82; RESP 22; TEMP 36.6; O2SAT 100; BMI 40.5
--- NOTE | 2023-04-25 11:24 | EX.ED.DYSGE1 ---
HPI History of Present Illness Chief Complaint: Edema Detail of Chief Complaint: Sent to ER because of bilateral leg swelling. Informant: patient Onset/Context/Timing Onset: Weeks Context: Gradual Onset Timing: Continuous and Waxes and wanes Quality: Swelling is worse at night compared to the morning Location: Lower extremities Current Severity: Moderate Maximum Severity: Severe Worsened by: Patient is not that mobile and sits a lot. Relieved by: Better after a night's sleep Associated Symptoms Associated Symptoms: None Narrative Narrative: Patient is a 62-year-old male who is a recipient of kidney transplant who presents because of bilateral leg swelling. Leg swelling is worse at night compared to morning. He admits to not being very mobile. He does have a history of diabetes requiring insulin, obstructive sleep apnea, essential hypertension, hyperlipidemia and known coronary artery disease. He states he makes urine since the transplant, which was 1 year ago. Patient denies orthopnea or PND. Patient denies anginal type chest discomfort. Patient denies any other symptoms. He states his monthly blood work is normal. Prior similar symptoms: Yes Recent Illness/Hospitalization: No PFSH PFSH Medical History Abdominal pain Arthritis Atherosclerosis of [place] coronary artery of [place] heart without angina pectoris Cataracts, bilateral CKD (chronic kidney disease) stage 4, GFR 15-29 ml/min COVID-19 virus infection (06/10/21) CPAP (continuous positive airway pressure) dependence Diabetes mellitus type 1 Diabetes type 1, uncontrolled Diabetic polyneuropathy associated with type 1 diabetes mellitus DM2 (diabetes mellitus, type 2) Encephalopathy acute Essential hypertension Former smoker Hepatitis C test positive High cholesterol History of renal disease Hyperlipidemia Incomplete right bundle branch block Insulin dependent diabetes mellitus Kidney disease Malfunction of arteriovenous dialysis fistula NORBERTO (obstructive sleep apnea) Pancreatitis Prostate disease Sleep apnea Stroke TIA (transient ischemic attack) Tobacco abuse Toxic metabolic encephalopathy Type 1 diabetes Uncontrolled type 1 diabetes mellitus with ESRD (end-stage renal disease) Walker as ambulation aid Wears dentures Wears glasses Home Medications albuterol sulfate 90 mcg/actuation aerosol inhaler 1 - 2 puff inhalation Q6H PRN PRN Wheezing 07/24/19 [History Last Taken 10/27/19] BP cuff #1 ea 11/27/19 [Rx Last Taken Unknown] pen needle, diabetic 32 gauge x (BD Ultra-Fine Cici Pen Needle) #400 ea 02/12/20 [Rx Last Taken Unknown] tamsulosin 0.4 mg capsule 0.4 mg PO QHS 04/22/20 [History Last Taken Unknown] glucagon 1 mg/0.2 mL subcutaneous auto-injector 1 mg subcut ONCE PRN hypoglycemic 07/28/21 [History Last Taken Unknown] propylene glycol 0.6 % eye drops (Systane Balance) 1 drp ophthalmic (eye) DAILY PRN lubricant 07/28/21 [History Last Taken Unknown] mycophenolate mofetil 250 mg capsule 500 mg PO BID 09/19/21 [History Last Taken Unknown] sulfamethoxazole 800 mg-trimethoprim 160 mg tablet 1.5 tab PO .QOD 09/19/21 [History Last Taken Unknown] blood-glucose sensor (Dexcom G6 Sensor device) #9 ea 09/22/21 [Rx Last Taken Unknown] blood-glucose transmitter (Dexcom G6 Transmitter device) #1 ea 09/22/21 [Rx Last Taken Unknown] sirolimus 0.5 mg tablet 1 mg PO DAILY 01/30/22 [History Last Taken Unknown] aspirin 325 mg tablet 325 mg PO DAILY 03/17/22 [History Last Taken Unknown] famotidine 20 mg tablet (Pepcid) 20 mg PO DAILY 03/17/22 [History Last Taken Unknown] atorvastatin 40 mg tablet 40 mg PO QHS #90 tabs 06/09/22 [Rx Last Taken Unknown] clopidogrel 75 mg tablet 75 mg PO DAILY #90 tabs 06/12/22 [Rx Last Taken Unknown] Novolog U-100 Insulin aspart 100 unit/mL subcutaneous solution (insulin aspart U-100) 120 unit (1.2 mL) continuous subcutaneous infusion .continuous #108 mL 10/06/22 [Rx Last Taken Unknown] blood sugar diagnostic (Blood Glucose Test strips) #100 ea 10/13/22 [Rx Last Taken Unknown] insulin lispro 100 unit/mL subcutaneous solution (Humalog U-100 Insulin) 120 unit (1.2 mL) subcut DAILY #100 mL 10/19/22 [Rx Last Taken Unknown] blood-glucose meter #1 ea 10/23/22 [Rx Last Taken Unknown] carvedilol 12.5 mg tablet 12.5 mg PO BID #180 tabs 12/21/22 [Rx Last Taken Unknown] Accu-Chek Katey Plus test strp (blood sugar diagnostic) #360 ea 01/09/23 [Rx Last Taken Unknown] amlodipine 2.5 mg tablet 2.5 mg PO DAILY #30 tabs 02/16/23 [Rx Last Taken Unknown] Allergy/AdvReac Type Severity Reaction Status Date / Time No Known Allergies Allergy Verified 04/25/23 10:54 Family History Mother Diabetes Thyroid disorder Hypertension Hyperlipidemia Surgical History Arteriovenous fistula for hemodialysis in place, primary H/O cardiac catheterization History of bilateral cataract extraction History of coronary artery stent placement (04/21/11) History of kidney transplant (03/27/21) history of peritoneal catheter insertion (~03/2020) Kidney transplant recipient Kidney transplant recipient Problem with dialysis access (04/05/20) Status post glaucoma surgery Social History household members: spouse Smoking Status: Current some day smoker tobacco type: cigarettes how long ago did patient quit smokin months alcohol intake: current alcohol intake frequency: holidays/special occasions only substance use type: does not use caffeine: Yes Type: coffee Number of servings: 2 ROS ROS ED Constitutional Constitutional ED: Denies chills, fever(s), subjective, sweats or weight loss Eyes Eyes: Denies blurry vision, change in vision or diplopia ENT ENT ED: Denies ear pain, rhinorrhea or sore throat Cardiovascular Cardiovascular: Denies chest pain, orthopnea, palpitations or paroxysmal nocturnal dyspnea Respiratory/Chest Respiratory/Chest: Denies cough, dyspnea, orthopnea or paroxysmal nocturnal dyspnea Gastrointestinal Gastrointestinal: Denies abdominal pain, nausea or vomiting Genitourinary Genitourinary ED: Denies dysuria, hematuria or urinary frequency Integumentary Reports rash Hematologic/Lymphatic Hematologic/Lymphatic: Reports systems reviewed and no addt'l complaints, except as documented EXAM Physical Exam Const Vital Signs: 04/25/23 10:52 04/25/23 12:12 04/25/23 13:00 Temperature 97.8 F Temperature Source Temporal Pulse Rate 82 74 Respiratory Rate 22 H 18 Respiratory Effort Normal Non-Labored Respiratory Pattern Normal Blood Pressure 161/90 H 154/70 H Blood Pressure Mean 113 98 Pulse Ox 100 98 Oxygen Delivery Method Room Air Room Air Positive well nourished, well developed and obese General Appearance ED: well developed and NAD; Negative for cyanotic or diaphoretic Nutritional Appearance: obese HEENT Reports moist mucous membranes HEENT Narrative: Head is atraumatic and normocephalic. Nares are patent. Eyes PERRL and EOMs intact bilaterally General Eye ED: Negative for pale conjunctiva or scleral icterus Neck no lymphadenopathy, supple and no JVD Chest Wall inspection of chest normal and palpation of chest normal Resp normal respiratory effort and clear to auscultation bilaterally Cardio regular rate, regular rhythm, S1 normal heart sound, S2 normal heart sound and no murmurs GI normal to inspection, nondistended, normoactive bowel sounds, non-tender, non-distended and no masses; Negative for hepatosplenomegaly Palpation: soft Extremity Extremity Narrative: Patient has venous stasis dermatitis and marked edema both legs. The edema is less on the right since he had an Jw wrap. There is no evidence of cellulitis. Neuro oriented x3 and CN's II-XII intact bilaterally Sensorium / Orientation: alert Psych mental status grossly normal Skin Skin Narrative: Venous stasis dermatitis bilateral lower extremities MDM MDM MDM Narrative Medical decision making narrative: Suspect patient has dependent lymphedema. Because he has history of renal disease and is a kidney recipient will obtain Compass metabolic panel to assess BUN/creatinine and albumin and total protein as well as UA to assess for proteinuria. Lab Data Attestation: I reviewed the patient's lab results. Lab results narrative: Comprehensive metabolic panel is remarkable for a UB human of 2.9. BUN and creatinine are 19 and 2.19 which is patient's baseline. Labs: Laboratory Results - last 24 hr 04/25/23 11:24 Sodium 140 Potassium 4.1 Chloride 115 H Carbon Dioxide 24.0 Anion Gap 1 L BUN 19 H Creatinine 2.15 H Estim Creat Clear Calc 49.11 Est GFR (MDRD) Af Amer 40 L Est GFR (MDRD) Non-Af 33 L BUN/Creatinine Ratio 8.8 L Glucose 87 Calcium 8.8 Total Bilirubin 0.50 AST 22 ALT 42 Alkaline Phosphatase 156 H Total Protein 5.6 L Albumin 2.9 L Globulin 2.7 Albumin/Globulin Ratio 1.1 Treatment and Re-Evaluation :: Patient was reevaluated at 1411. He was informed of results. He was told the swelling is due to decreased activity and low albumin. He was instructed to wear compressive hose. Discharge Plan Triage Chief Complaint: Edema ED Provider: Cesar Reyna Dx/Rx/DC Orders Clinical Impression: Edema due to hypoalbuminemia, Bilateral edema of lower extremity, Essential hypertension, Chronic venous stasis dermatitis, Venous insufficiency, Atherosclerosis of [place] coronary artery of [place] heart without angina pectoris, Kidney transplant recipient Instructions: ED Lymphedema Prescriptions: No Action tamsulosin 0.4 mg capsule 0.4 mg PO QHS Patient Comments: TAKE 1 CAPSULE BY MOUTH EVERYDAY AT BEDTIME (DME) pen needle, diabetic [BD Ultra-Fine Cici Pen Needle] 32 gauge x 5/32 needle See Rx Instructions .ROUTE .MEDSUPPLY Qty: 400 2RF Rx Instructions: 4 times a day glucagon 1 mg/0.2 mL auto-injector 1 mg subcut ONCE PRN (Reason: hypoglycemic) Rx Instructions: as a single dose; may repeat once after 15 minutes if no response Systane Balance 0.6 % drops 1 drp ophthalmic (eye) DAILY PRN (Reason: lubricant) sulfamethoxazole-trimethoprim 800-160 mg tablet 1.5 tab PO .QOD aspirin 325 mg tablet 325 mg PO DAILY famotidine [Pepcid] 20 mg tablet 20 mg PO DAILY amlodipine 2.5 mg tablet 2.5 mg PO DAILY Qty: 30 11RF albuterol sulfate 1 PUFF inhaler 1 - 2 puff INHALATION Q6H PRN PRN (Reason: Wheezing) mycophenolate mofetil 250 mg capsule 500 mg PO BID Rx Instructions: 1250 AT HS sirolimus 0.5 mg tablet 1 mg PO DAILY (DME) BP cuff Qty: 1 0RF Rx Instructions: For use of monitoring BP (DME) Dexcom G6 Sensor Device See Rx Instructions .ROUTE .MEDSUPPLY Qty: 9 1RF Rx Instructions: As directed (DME) Dexcom G6 Transmitter Device See Rx Instructions .ROUTE .MEDSUPPLY Qty: 1 1RF Rx Instructions: change every 90 days atorvastatin 40 mg tablet 40 mg PO QHS Qty: 90 3RF clopidogrel 75 mg tablet 75 mg PO DAILY Qty: 90 3RF insulin aspart U-100 [Novolog U-100 Insulin aspart] 100 unit/mL solution 120 unit continuous subcutaneous infusion .continuous Qty: 108 1RF Rx Instructions: via insulin pump (DME) Blood Glucose Test Strip See Rx Instructions .Route Qty: 100 6RF Rx Instructions: twice a day insulin lispro [Humalog U-100 Insulin] 100 unit/mL solution 120 unit subcut DAILY Qty: 100 1RF Rx Instructions: via insulin pump (DME) blood-glucose meter Kit See Rx Instructions .Route Qty: 1 0RF Rx Instructions: 4x/day carvedilol 12.5 mg tablet 12.5 mg PO BID Qty: 180 3RF Rx Instructions: must administer with a meal/food (DME) Accu-Chek Katey Plus test strp Strip See Rx Instructions .ROUTE .MEDSUPPLY Qty: 360 1RF Rx Instructions: 4 times daily Primary Care Provider: Handy Henderson Referrals: Handy Henderson DO [Primary Care Provider] - 1-2 Weeks Activity Restrictions/Additional Instructions: 1. Recommend buying compression hose thigh-high. 2. Recommend elevating your feet above your nose during the day when you are not walking. 3. Recommend putting 1-2 bricks at the 40 of bed to help decrease the swelling. Disposition Disposition: Home, Self Care
[2023-04-25 11:58] LABS: ALB/GLOB Ratio 1.1 RATIO (0.9-2.4); AST(SGOT) 22 U/L (15-37); Alanine Aminotransfer ALT/SGPT 42 U/L (16-61); Albumin, Serum 2.9 g/dL (3.2-5.0); Alkaline Phosphatase 156 U/L (45-117); Anion Gap 1 (5-15); BUN 19 mg/dL (7-18); BUN/Creat Ratio 8.8 RATIO (10-20); Calcium,Total 8.8 mg/dL (8.5-10.1); Chloride 115 mmol/L (98-107); Creatinine, Serum 2.15 mg/dL (0.70-1.30); EST Glomerular Filtration Rate 33 mL/min (>60); Est Glom Filt Rate - Afr Amer 40 mL/min (>60); Estimated Creatinine Clearance 49.11 ml/min; Globulin 2.7 g/dL (2.2-4.2); Glucose 87 mg/dL (74-106); Potassium 4.1 mmol/L (3.5-5.1); Protein, Total 5.6 g/dL (6.4-8.2); Sodium Level 140 mmol/L (136-145)
--- NOTE | 2023-04-25 12:33 | ED.RN ---
pt with dexcom and bs 77. orange juice and linda crackers given. pt up to attempt to void but unable. knows to ring if able to get speciman
[2023-04-25 13:00] VITALS: BP 154/70; PULSE 74; RESP 18; O2SAT 98
--- NOTE | 2023-04-25 13:00 | ED.RN ---
pt bs still only 62 after oj and crackers. given pb and cheese stick with another oj.
--- NOTE | 2023-04-25 13:45 | ED.RN ---
bs up to 75 now after snack and oj x2.
[2023-04-25 14:31] VITALS: BP 132/72
[2023-04-25 14:49] LABS: Bacteria 0 SEEN /hpf (None Seen); Mucous, Urine 0 SEEN /hpf (<or=2+); Squamous Epithelial Cells - UA 0 SEEN /hpf (0-5)
[2023-04-25 14:56] LABS: Color, Urine Yellow (Yellow); Glucose, Dipstick Normal (Normal); Ketone-Dipstick Negative (Negative); Leukocyte Esterase-Dipstick 25 /ul (Negative); Nitrite-Dipstick Negative (Negative); Occult Blood-Urine 150 /ul (Negative); Protein-Dipstick 100 mg/dl (Negative); Specific Gravity, Urine 1.015 (1.002-1.030); Urine Bilirubin Dipstick Negative (Negative); Urine Clarity Clear (Clear); Urine Urobilinogen Normal (Normal); Urine pH 6.5 (5.0 - 8.0)
[2023-04-25 15:02] LABS: Red Blood Cells-Urine 10-25 SEEN /hpf (0-5); White Blood Cells 0-5 SEEN /hpf (0-5)
== END 2023-04-25 14:42 | disposition home or self-care (01) ==
PROVIDERS: Emergency Provider Emergency Medicine; PCP Student in an Organized Health Care Education/Training Program; Visit Provider Emergency Medicine
DX: R60.0 Localized edema (principal); E10.22 Type 1 diabetes mellitus with diabetic chronic kidney disease; N18.4 Chronic kidney disease, stage 4 (severe); Z79.4 Long term (current) use of insulin; I87.2 Venous insufficiency (chronic) (peripheral); F17.200 Nicotine dependence, unspecified, uncomplicated; Z94.0 Kidney transplant status; E78.00 Pure hypercholesterolemia, unspecified; Z86.73 Personal history of transient ischemic attack (TIA), and cerebral infarction without residual deficits; Z79.85 Long-term (current) use of injectable non-insulin antidiabetic drugs; Z79.899 Other long term (current) drug therapy; Z79.82 Long term (current) use of aspirin; Z79.02 Long term (current) use of antithrombotics/antiplatelets; Z98.41 Cataract extraction status, right eye; Z98.42 Cataract extraction status, left eye; Z95.5 Presence of coronary angioplasty implant and graft; E88.09 Other disorders of plasma-protein metabolism, not elsewhere classified; I25.10 Atherosclerotic heart disease of native coronary artery without angina pectoris; I12.9 Hypertensive chronic kidney disease with stage 1 through stage 4 chronic kidney disease, or unspecified chronic kidney disease
CPT/HCPCS: 80053; 81001; 99283; A4216

== ENCOUNTER → 2023-05-07 | Outpatient (CLI) | payer MEDICARE, MEDICAID, SELFPAY ==
[2023-05-07 15:41] LABS: Absolute Lymphocyte Count 1.03 X10^3/uL (0.83-4.51); Absolute Neutrophil Count 2.2 X10^3/uL (2.0-7.7); Basophil# 0.02 X10^3/uL; Basophil% 0.5 % (0-1); Eosinophil# 0.06 X10^3/uL; Eosinophils% 1.5 % (0-5); Hematocrit 37.9 % (40-54); Hemoglobin 11.1 g/dL (13.0-16.5); Lymphocyte # 1.03 X10^3/ul (0.83-4.51); Lymphocyte % 25.3 % (19-41); Mean Corp Hgb Conc 29.3 g/dL (32-36); Mean Corpuscular Hgb 27.1 pg (27.0-32.0); Mean Corpuscular Volume 92.4 fL (80-94); Mean Platelet Vol. 9.5 fl (6.2-12.0); Monocyte# 0.72 X10^3/uL; Monocyte% 17.7 % (0-10); NRBC Flagged by Analyzer 0 % (0-5); Neutrophil # 2.21 X10^3/uL (2.7-7.7); Neutrophil % 54.3 % (47-70); Platelet Count 226 K/mm3 (150-450); RBC Distribution Width CV 14.5 % (11.6-14.6); RBC Distribution Width SD 49.1 fl (35.1-43.9); White Blood Count 4.1 K/mm3 (4.4-11.0)
[2023-05-07 16:04] LABS: BNP,B-Type NATRIURETIC PEPTIDE 40.9 pg/mL (0-100)
[2023-05-07 16:27] LABS: Anion Gap 4 (5-15); BUN 20 mg/dL (7-18); Chloride 111 mmol/L (98-107); Creatinine, Serum 2.21 mg/dL (0.70-1.30); EST Glomerular Filtration Rate 32 mL/min (>60); Est Glom Filt Rate - Afr Amer 39 mL/min (>60); Glucose 187 mg/dL (74-106); Potassium 4.1 mmol/L (3.5-5.1); Sodium Level 137 mmol/L (136-145); Thyroid Stim Hormone (TSH) 1.24 uIU/mL (0.358-3.74)
== END | disposition home or self-care (01) ==
LOC: RAD 13:38 → LAB 14:07
PROVIDERS: PCP Student in an Organized Health Care Education/Training Program; Referring Provider Nurse Practitioner Gerontology; Visit Provider Nurse Practitioner Gerontology
DX: R06.09 Other forms of dyspnea (principal)
CPT/HCPCS: 36415; 80048; 83880; 84443; 85025

== ENCOUNTER 2023-06-21 06:48 | Day surgery (SDC) | payer MEDICARE, MEDICAID, SELFPAY ==
[2023-06-20 09:20] VITALS: BMI 40.1
[2023-06-21 07:42] LABS: Hematocrit 37.1 % (40-54); Hemoglobin 11.3 g/dL (13.0-16.5); Mean Corp Hgb Conc 30.5 g/dL (32-36); Mean Corpuscular Hgb 27.1 pg (27.0-32.0); Mean Platelet Vol. 10.1 fl (6.2-12.0); Platelet Count 220 K/mm3 (150-450); RBC Distribution Width CV 14.6 % (11.6-14.6); RBC Distribution Width SD 47.2 fl (35.1-43.9); Red Blood Count 4.17 M/mm3 (4.6-6.2); White Blood Count 4.6 K/mm3 (4.4-11.0)
[2023-06-21 08:07] LABS: Anion Gap 4 (5-15); BUN 22 mg/dL (7-18); BUN/Creat Ratio 8.8 RATIO (10-20); Calcium,Total 9.1 mg/dL (8.5-10.1); Chloride 111 mmol/L (98-107); Creatinine, Serum 2.51 mg/dL (0.70-1.30); EST Glomerular Filtration Rate 28 mL/min (>60); Est Glom Filt Rate - Afr Amer 34 mL/min (>60); Estimated Creatinine Clearance 41.88 ml/min; Glucose 195 mg/dL (74-106); Sodium Level 139 mmol/L (136-145)
--- NOTE | 2023-06-21 08:15 | PCM.HP.STD ---
HPI - General HPI Narrative АНДРЕЙ BEAVER, is a 62 M who presents with bilateral LE edema, chronic venous skin changes, no relief with compression. Only reflux is left below knee great saphenous. [facility] Medical History Abdominal pain Arthritis Atherosclerosis of [place] coronary artery of [place] heart without angina pectoris Cataracts, bilateral CKD (chronic kidney disease) stage 4, GFR 15-29 ml/min COVID-19 virus infection (06/10/21) CPAP (continuous positive airway pressure) dependence Diabetes mellitus type 1 Diabetes type 1, uncontrolled Diabetic polyneuropathy associated with type 1 diabetes mellitus DM2 (diabetes mellitus, type 2) Encephalopathy acute Essential hypertension Former smoker Hepatitis C test positive High cholesterol History of renal disease Hyperlipidemia Incomplete right bundle branch block Insulin dependent diabetes mellitus Kidney disease Malfunction of arteriovenous dialysis fistula NORBERTO (obstructive sleep apnea) Pancreatitis Prostate disease Sleep apnea Stroke TIA (transient ischemic attack) Tobacco abuse Toxic metabolic encephalopathy Type 1 diabetes Uncontrolled type 1 diabetes mellitus with ESRD (end-stage renal disease) Walker as ambulation aid Wears dentures Wears glasses Home Medications albuterol sulfate 90 mcg/actuation aerosol inhaler 1 - 2 puff inhalation Q6H PRN PRN Wheezing 07/24/19 [History Last Taken 10/27/19] BP cuff #1 ea 11/27/19 [Rx Last Taken Unknown] pen needle, diabetic 32 gauge x 5/32 (BD Ultra-Fine Cici Pen Needle) #400 ea 02/12/20 [Rx Last Taken Unknown] tamsulosin 0.4 mg capsule 0.4 mg PO QHS 04/22/20 [History Last Taken Unknown] glucagon 1 mg/0.2 mL subcutaneous auto-injector 1 mg subcut ONCE PRN hypoglycemic 07/28/21 [History Last Taken Unknown] propylene glycol 0.6 % eye drops (Systane Balance) 1 drp ophthalmic (eye) DAILY PRN lubricant 07/28/21 [History Last Taken Unknown] mycophenolate mofetil 250 mg capsule 500 mg PO BID 09/19/21 [History Last Taken Unknown] sulfamethoxazole 800 mg-trimethoprim 160 mg tablet 1.5 tab PO .QOD 09/19/21 [History Last Taken Unknown] blood-glucose sensor (Dexcom G6 Sensor device) #9 ea 09/22/21 [Rx Last Taken Unknown] blood-glucose transmitter (Dexcom G6 Transmitter device) #1 ea 09/22/21 [Rx Last Taken Unknown] sirolimus 0.5 mg tablet 1 mg PO DAILY 01/30/22 [History Last Taken Unknown] aspirin 325 mg tablet 325 mg PO DAILY 03/17/22 [History Last Taken 06/21/23] famotidine 20 mg tablet (Pepcid) 20 mg PO DAILY 03/17/22 [History Last Taken Unknown] atorvastatin 40 mg tablet 40 mg PO QHS #90 tabs 06/09/22 [Rx Last Taken Unknown] clopidogrel 75 mg tablet 75 mg PO DAILY #90 tabs 06/12/22 [Rx Last Taken 06/21/23] blood sugar diagnostic (Blood Glucose Test strips) #100 ea 10/13/22 [Rx Last Taken Unknown] insulin lispro 100 unit/mL subcutaneous solution (Humalog U-100 Insulin) 120 unit (1.2 mL) subcut DAILY #100 mL 10/19/22 [Rx Last Taken Unknown] blood-glucose meter #1 ea 10/23/22 [Rx Last Taken Unknown] carvedilol 12.5 mg tablet 12.5 mg PO BID #180 tabs 12/21/22 [Rx Last Taken 06/21/23] amlodipine 2.5 mg tablet 2.5 mg PO DAILY #30 tabs 02/16/23 [Rx Last Taken 06/21/23] timolol 0.5 % eye drops 1 drp ophthalmic (eye) DAILY 05/07/23 [History Last Taken Unknown] Novolog U-100 Insulin aspart 100 unit/mL subcutaneous solution (insulin aspart U-100) 120 unit (1.2 mL) continuous subcutaneous infusion .continuous #108 mL 06/04/23 [Rx Last Taken Unknown] blood sugar diagnostic (Accu-Chek Guide test strips) #100 ea 06/04/23 [Rx Last Taken Unknown] blood-glucose meter (Accu-Chek Guide Glucose Meter) #1 ea 06/04/23 [Rx Last Taken Unknown] lancing device with lancets kit (Accu-Chek Softclix Lancing Device+Lancets kit) #1 ea 06/04/23 [Rx Last Taken Unknown] Allergy/AdvReac Type Severity Reaction Status Date / Time No Known Allergies Allergy Verified 05/07/23 15:40 Family History Mother Diabetes Thyroid disorder Hypertension Hyperlipidemia Surgical History (Reviewed 05/07/23 @ 15:40 by Gabi Lieberman [employer], [employer]) Arteriovenous fistula for hemodialysis in place, primary H/O cardiac catheterization History of bilateral cataract extraction History of coronary artery stent placement (04/21/11) History of kidney transplant (03/27/21) history of peritoneal catheter insertion (~03/2020) Kidney transplant recipient Kidney transplant recipient Problem with dialysis access (04/05/20) Status post glaucoma surgery Social History household members: spouse Smoking Status: Current some day smoker tobacco type: cigarettes how long ago did patient quit smokin months alcohol intake: current alcohol intake frequency: holidays/special occasions only substance use type: does not use caffeine: Yes Type: coffee Number of servings: 2 ROS Constitutional Constitutional: Denies chills, fever(s), frequent falls, lethargy or weakness Eyes Eyes: Denies blind spots, change in vision or loss of vision ENT HEENT: Denies bleeding gums, hoarseness or sore throat Cardiovascular Cardiovascular: Denies abdominal pain, bluish discoloration of hand/feet, chest pain with activity, claudication, cold extremities, cyanosis, dyspnea on exertion, erythema on extremities, irregular heart rhythm, leg edema, leg ulcers, numbness in extremities or weakness in extremities Respiratory/Chest Respiratory/Chest: Denies cough, excessive phlegm production, shortness of breath at rest, shortness of breath with exertion or wheezing Gastrointestinal Gastrointestinal: Denies anorexia, change in stool character, constipation, diarrhea, melena or rectal bleeding Genitourinary Genitourinary: Denies dysuria or hematuria Musculoskeletal Musculoskeletal: Denies abnormal gait Integumentary Integumentary: Reports other Details: ; Denies erythema, non-healing lesions or wounds Neurologic Neurologic: Denies abnormal speech, focal weakness, headache(s), loss of vision, numbness, paresthesias or sensory deficit Hematologic/Lymphatic Hematologic/Lymphatic: Denies easy bleeding, easy bruising or lymphadenopathy Vital Signs Vital Signs Vital Signs: Weight Weight: 280 lb Body Mass Index (BMI) 40.1 Physical Exam Const alert, oriented x3, no apparent distress and healthy appearing General Appearance: cooperative; Negative for combative or lethargic Orientation / Consciousness: awake Exam Limitations: no limitations HEENT Head and Scalp: normocephalic and atraumatic Eyes EOMs intact bilaterally General Eye: normal appearance of both eyes Neck full ROM, no lymphadenopathy, thyroid normal and No no carotid bruits General: trachea midline; Negative for lymphadenopathy or tenderness Thyroid: thyroid normal Lymph Lymphatic: Negative for no lymphadenopathy noted Resp normal respiratory effort, no use of accessory muscles and clear to auscultation bilaterally Effort and Inspection: Negative for labored, stridor or audible wheezes Cardio regular rate and regular rhythm Back/Spine Cervical Spine: cervical ROM normal Extremity full ROM, normal capillary refill and no clubbing, cyanosis or edema Skin no rashes or lesions noted and no wounds Neuro oriented x3, CN's II-XII intact bilaterally, no focal motor deficits and no sensory deficits noted Psych thought process normal, cooperative, affect normal, speech normal and activity/motor behavior normal Results Lab / Micro Data 06/21/23 07:25 06/21/23 07:44 Labs: Laboratory Results - last 24 hr 06/21/23 07:25: WBC 4.6, RBC 4.17 L, Hgb 11.3 L, Hct 37.1 L, MCV 89.0, MCH 27.1, MCHC 30.5 L, RDW Std Deviation 47.2 H, RDW Coeff of Kindra 14.6, Plt Count 220, MPV 10.1, Sodium Cancelled, Potassium Cancelled, Chloride Cancelled, Carbon Dioxide Cancelled, Anion Gap Cancelled, BUN Cancelled, Creatinine Cancelled, Estim Creat Clear Calc Cancelled, Est GFR (MDRD) Af Amer Cancelled, Est GFR (MDRD) Non-Af Cancelled, BUN/Creatinine Ratio Cancelled, Glucose Cancelled, Calcium Cancelled 06/21/23 07:44: Sodium 139, Potassium 4.0, Chloride 111 H, Carbon Dioxide 24.0, Anion Gap 4 L, BUN 22 H, Creatinine 2.51 H, Estim Creat Clear Calc 41.88, Est GFR (MDRD) Af Amer 34 L, Est GFR (MDRD) Non-Af 28 L, BUN/Creatinine Ratio 8.8 L, Glucose 195 H, Calcium 9.1 Assessment & Plan Assessment/Plan (1) Venous insufficiency:
--- NOTE | 2023-06-21 09:33 | PCM.OPRPT ---
Report of Operation Date of Procedure: 06/21/23 Pre-Operative Diagnosis: venous insufficiency with pain/edema Post-Operative Diagnosis: same Surgery/Procedure Performed:: venogram IVC IVUS IVC, bilateral common/external iliac veins Surgeon: Nicolas Lawrence Type of Anesthesia: Local and Sedation,Conscious Estimated Blood Loss (mL): 3 Description of Procedure: HPI: Patient is a 62-year-old male with bilateral lower extremity venous insufficiency chronic skin changes. He has minimal left lower extremity reflux and he presents now for venogram to assess for possible central venous compression. Description procedure: Upon obtaining form consent and verification correct patient procedure site patient taken to the [facility] where he was positioned prepped and draped in usual sterile fashion. Time was performed conscious sedation administered Versed and fentanyl. Skin overlying the left common femoral vein is anesthetized 1% lidocaine vessel accessed under ultrasound guidance with micropuncture needle wire. This then exchanged out for micropuncture sheath through which injection ilio caval venogram was performed revealing satisfactory positioning. Through this a Bentson wire was advanced and the micropuncture sheath exchanged out for an 8 [place] sheath. Through the 8 [place] sheath and intravascular ultrasound probe was advanced and recorded pullback of the IVC, left common iliac vein, left external iliac vein was performed. Next skin overlying the right common femoral vein was anesthetized 1% lidocaine the vessel accessed under ultrasound guidance with micropuncture needle wire. This then exchanged for micropuncture sheath through which injection ilio caval venogram was performed revealing satisfactory positioning. Of note the patient had a previous right iliac vein anastomosis for a prior renal transplant. The catheter was located within the iliac system with contrast emptying only into the vena cava. Through the micropuncture sheath a Bentson wire was advanced and the micropuncture sheath exchanged for 8 [place] sheath. Intravascular ultrasound probe was then advanced and recorded pullback performed of the IVC, right common iliac vein, right external iliac vein. IVUS evaluation did not reveal any significant compression bilaterally so the wires and sheath were withdrawn a minute pressure held. Patient was then taken the recovery room with anticipated discharged home after bedrest. Radiograph interpretation: Inferior vena cava and bilateral common and external iliac veins with normal venous contrast and no significant pelvic vein collaterals. Intravascular ultrasound revealed normal inferior vena cava with no significant compression or obstruction. The right external iliac vein and approximately 20% compression the left common iliac vein had no compression.
== END 2023-06-21 11:45 | disposition home or self-care (01) ==
LOC: CLSP 06:50
PROVIDERS: PCP Student in an Organized Health Care Education/Training Program; Referring Provider Surgery Trauma Surgery; Visit Provider Surgery Trauma Surgery
DX: I87.2 Venous insufficiency (chronic) (peripheral) (principal); E10.22 Type 1 diabetes mellitus with diabetic chronic kidney disease; E10.42 Type 1 diabetes mellitus with diabetic polyneuropathy; E10.59 Type 1 diabetes mellitus with other circulatory complications; I12.0 Hypertensive chronic kidney disease with stage 5 chronic kidney disease or end stage renal disease; N18.6 End stage renal disease; Z79.4 Long term (current) use of insulin; R60.0 Localized edema; I25.10 Atherosclerotic heart disease of native coronary artery without angina pectoris; E78.5 Hyperlipidemia, unspecified; F17.200 Nicotine dependence, unspecified, uncomplicated; G47.33 Obstructive sleep apnea (adult) (pediatric); Z99.89 Dependence on other enabling machines and devices; Z86.73 Personal history of transient ischemic attack (TIA), and cerebral infarction without residual deficits; Z95.5 Presence of coronary angioplasty implant and graft
CPT/HCPCS: 36010; 37252; 37253; 75825; 76937; 80048; 85027; 99152; 99153; C1753; C1769; C1894; J7040; Q9967

== ENCOUNTER 2023-08-30 14:00 | Outpatient (RCR) | payer MEDICARE, MEDICAID, OTHER, SELFPAY ==
[2023-08-23 14:14] VITALS: BP 141/67; PULSE 75; RESP 18; TEMP 36.3; BMI 40.2
--- NOTE | 2023-08-23 16:51 | PCM.WC.HP ---
History of Present Illness Date of Service: 08/23/23 Chief Complaint: Bilateral lower extremity edema with weeping History of Wound: Mr. Jonh Nickerson is a pleasant 62 y/o gentleman who presents today for management of his lower extremity edema with weeping and superficial skin breakdown. He is well known to me from the vascular surgery office. He has a several year-long history of lower extremity edema which has progressively worsened over the last 1-2 years. He also has associated chronic skin changes including hyperpigmentation, blistering, weeping. He also has associated discomfort including leg heaviness. The edema does significantly limit his quality of life as he is not able to actively participate in activities he used to really enjoy such as long walks, golfing, etc. Just basic mobility is made more difficult by his edema. Unfortunately, over the last couple of weeks he has had significant fluid blisters develop which has formed superficial wounds upon rupture. He has significant associated weeping. He has been trying to manage at home with gauze wrap and TERESITA bandage wraps without much improvement. He did have a vascular workup including venous reflux study which showed limited focal reflux insufficient to explain his severity of his bilateral symptoms and a venogram which was negative for any central venous compression. He does have significant past medical history. He is a type 1 diabetic. Overall, fair control at this time by his report. He did have ESRD and was dialysis dependent for a period prior to receiving a renal transplant. He has CAD s/p PCI, HTN, neuropathy. He is a smoker. [facility] Medical History Diabetes mellitus type 1 TIA (transient ischemic attack) Toxic metabolic encephalopathy COVID-19 virus infection (06/10/21) Encephalopathy acute Hepatitis C test positive CPAP (continuous positive airway pressure) dependence Sleep apnea Wears dentures Wears glasses Insulin dependent diabetes mellitus Walker as ambulation aid Arthritis Prostate disease History of renal disease High cholesterol Former smoker Malfunction of arteriovenous dialysis fistula Abdominal pain Incomplete right bundle branch block Uncontrolled type 1 diabetes mellitus with ESRD (end-stage renal disease) NORBERTO (obstructive sleep apnea) Atherosclerosis of [place] coronary artery of [place] heart without angina pectoris Essential hypertension Diabetic polyneuropathy associated with type 1 diabetes mellitus CKD (chronic kidney disease) stage 4, GFR 15-29 ml/min Diabetes type 1, uncontrolled Stroke Pancreatitis Kidney disease Type 1 diabetes Cataracts, bilateral DM2 (diabetes mellitus, type 2) Tobacco abuse Hyperlipidemia Home Medications ?Medication ?Instructions ?Recorded ?Last Taken ?Type albuterol sulfate 90 mcg/actuation 1 - 2 puff inhalation Q6H PRN PRN 07/24/19 10/27/19 History aerosol inhaler Wheezing BP cuff #1 ea 11/27/19 Unknown Rx pen needle, diabetic 32 gauge x #400 ea 02/12/20 Unknown Rx (BD Ultra-Fine Cici Pen Needle) tamsulosin 0.4 mg capsule 0.4 mg PO QHS 04/22/20 Unknown History propylene glycol 0.6 % eye drops 1 drp ophthalmic (eye) DAILY PRN 07/28/21 Unknown History (Systane Balance) lubricant mycophenolate mofetil 250 mg 500 mg PO BID 09/19/21 Unknown History capsule sulfamethoxazole 800 1.5 tab PO .QOD 09/19/21 Unknown History mg-trimethoprim 160 mg tablet blood-glucose sensor (Dexcom G6 #9 ea 09/22/21 Unknown Rx Sensor device) blood-glucose transmitter (Dexcom #1 ea 09/22/21 Unknown Rx G6 Transmitter device) sirolimus 0.5 mg tablet 1 mg PO DAILY 01/30/22 Unknown History aspirin 325 mg tablet 325 mg PO DAILY 03/17/22 06/21/23 History famotidine 20 mg tablet (Pepcid) 20 mg PO DAILY 03/17/22 Unknown History atorvastatin 40 mg tablet 40 mg PO QHS #90 tabs 06/09/22 Unknown Rx blood sugar diagnostic (Blood #100 ea 10/13/22 Unknown Rx Glucose Test strips) insulin lispro 100 unit/mL 120 unit (1.2 mL) subcut DAILY 10/19/22 Unknown Rx subcutaneous solution (Humalog #100 mL U-100 Insulin) blood-glucose meter #1 ea 10/23/22 Unknown Rx amlodipine 2.5 mg tablet 2.5 mg PO DAILY #30 tabs 02/16/23 06/21/23 Rx timolol 0.5 % eye drops 1 drp ophthalmic (eye) DAILY 05/07/23 Unknown History Novolog U-100 Insulin aspart 100 120 unit (1.2 mL) continuous 06/04/23 Unknown Rx unit/mL subcutaneous solution subcutaneous infusion .continuous (insulin aspart U-100) #108 mL blood sugar diagnostic (Accu-Chek #100 ea 06/04/23 Unknown Rx Guide test strips) blood-glucose meter (Accu-Chek #1 ea 06/04/23 Unknown Rx Guide Glucose Meter) lancing device with lancets kit #1 ea 06/04/23 Unknown Rx (Accu-Chek Softclix Lancing Device+Lancets kit) carvedilol 12.5 mg tablet 12.5 mg PO BID #180 tabs 07/02/23 Unknown Rx clopidogrel 75 mg tablet 75 mg PO DAILY #90 tabs 07/02/23 Unknown Rx furosemide 20 mg tablet (Lasix) 20 mg PO DAILY 07/24/23 Unknown History bupropion HCl 100 mg tablet,12 hr 100 mg PO BID #60 ea 08/15/23 Unknown Rx sustained-release (Wellbutrin SR) Allergy/AdvReac Type Severity Reaction Status Date / Time No Known Allergies Allergy Verified 08/23/23 14:36 Family History Mother Diabetes Thyroid disorder Hypertension Hyperlipidemia Surgical History Status post glaucoma surgery Kidney transplant recipient Kidney transplant recipient History of kidney transplant (03/27/21) history of peritoneal catheter insertion (~03/2020) Problem with dialysis access (04/05/20) History of coronary artery stent placement (04/21/11) Arteriovenous fistula for hemodialysis in place, primary History of bilateral cataract extraction H/O cardiac catheterization Social History household members: spouse Smoking Status: Current some day smoker tobacco type: cigarettes how long ago did patient quit smokin months alcohol intake: current alcohol intake frequency: holidays/special occasions only substance use type: does not use caffeine: Yes Type: coffee Number of servings: 2 Vital Signs Vital Signs Vital Signs: 08/23/23 14:14 Temperature 97.3 F L Temperature Source Temporal Pulse Rate 75 Respiratory Rate 18 Blood Pressure 141/67 H Blood Pressure Mean 91 Blood Pressure Source Monitor Weight Weight: 280 lb 4.709 oz Body Mass Index (BMI) 40.2 Physical Exam Const alert, oriented x3 and no apparent distress General Appearance: cooperative and comfortable HEENT normocephalic, head/scalp atraumatic, hearing grossly normal bilaterally and external ears normal Head and Scalp: normal to inspection and normocephalic Eyes EOMs intact bilaterally General Eye: normal appearance of both eyes Neck General: normal visual inspection and trachea midline Resp normal respiratory effort, no retractions and no use of accessory muscles Effort and Inspection: able to speak in complete sentences Cardio regular rate and regular rhythm Extremity Extremity Narrative: Significant bilateral lower extremity edema 3+ Skin Skin Narrative: Hyperpigmentation and lipodermatosclerosis noted bilaterally Wounds: wounds noted Wound Narrative: There is a large ruptured blister on the posterolateral aspect of the RLE. There is an associated superficial wound that extends anteriorly. There is no surrounding warmth/focal swelling. Serous drainage is noted. There is a large superficial wound cluster on the anterolateral aspect of the LLE with significant serous drainage/weeping noted. There is no foul odor, focal swelling, significant warmth or erythema. Neuro oriented x3, CN's II-XII intact bilaterally, moves all extremities and no focal motor deficits Psych mental status grossly normal Appearance: grossly normal Attitude: calm and engaged Activity / Motor Behavior: appropriate eye contact Speech: normal speech Mood & Affect: euthymic mood Judgement: judgement good Debridement Note Debridement Note No debridement was completed: No debridement was completed today Post-Debridement Measurements and Additional Note: Post-Debridement Measurements/Treatment - Nurse 1 - General Ulcer Assessment Start: 08/23/23 14:07 Freq: Status: Active Protocol: LAITH Activity Type Activity Date Activity User E-sign Co-sign Detail Recorded Client Recorded Date Recorded By Document 08/23/23 14:14 DL [email or web address] 08/23/23 14:34 DL 08/23/23 14:14 - Today's Visit Information Type of service Initial Visit Arrival Mode Ambulatory Transfer Assistance None Patient Identification Verified (Name & Yes ) Patient Requires Transmission-Based No Precautions Height and Weight Height 5 ft 10 in Weight 280 lb 4.709 oz Weight in Pounds 280.3 lbs Body Mass Index (BMI) 40.2 BMI Classification Obese BSA - Mario 2.41 Vital Signs Temperature (97.8 F-99.1 F) 97.3 F L Temperature Source Temporal Pulse Rate (60-100) 75 Pulse Location Monitor Respiratory Rate (12-18) 18 Respiratory rate source Observation Blood Pressure (90/60-120/80) 141/67 H Blood Pressure Mean (mm Hg) 91 Source Monitor Pain Scale: 0-10 Numeric Is Patient Pain Free? Yes Communication Assessment Preferred language Gabonese Able to Read Yes Able to Write Yes Communication Tools None Right Hearing Abillity Normal Left Hearing Abillity Normal Visual Assistive Devices Glasses Teaching Assessment Preferences Verbal,Written, Demonstration Barriers to Learning None Readiness To Learn Good Willingness to Engage in Self Management Med Activies Readiness to Engage in Self Management Med Activities Anxiety Level Calm Cooperation Cooperative Perception Coherent Interest in Health Problem Asks Questions Education Importance Acknowledges Need Does Patient Smoke tobacco or other Yes substances Smoking Status Current some day smoker Is Patient Diabetic Yes Functional Assessment Recent Decline in Ability to Perform Denies Any Declines Culture/Christianity/Order Checker Cultural/Christianity Needs that may affect No Treatment Plan Would you allow our hospital visual display manager to No meet you for the purpose of spiritual/ emotional support? Order Checker to contact place of nondenominational No Teaching: Wound Center Discharge Instructions -Person Taught Patient *Welcome to the Wound Center -Person Taught Patient WC - Nurse 1 - General Ulcer Measurement Start: 08/23/23 14:07 Freq: Status: Active Protocol: Activity Type Activity Date Activity User E-sign Co-sign Detail Recorded Client Recorded Date Recorded By Document 08/23/23 14:14 DL [email or web address] 08/23/23 14:34 DL 08/23/23 14:14 Wound Center Nurse 1 #2 LLE [place] -Current Size (cm) - Length 14.8 -Current Size (cm) - Width 8.5 -Current Size (cm) - Depth 0.1 -Total Square Cm 125.80 -Photo Taken Yes -Exudate Amt Large -Exudate Type Serosanguineous -Wound Margin Distinct, Outline Attached -Granulation Amt Large (67-100%) -Granulation Quality Saline -Necrosis Amt Small (1-33%) -Necrotic Tissue Type Adherent Slough -Structure Exposed N/A -Texture (Jhoana-wound Skin Appearance) Localized Edema ,Scarring -Moisture (Jhoana-wound Skin Appearance) Weeping -Color (Jhoana-wound Skin Appearance) Hemosiderin Staining -Temperature (Jhoana-wound Skin No Abnormality Appearance) (Pt Warm) -Tenderness on Palpation (Jhoana-wound No Skin Appearance) -Ulcer Cleansing Soap and Water -Foul Odor after Cleansing No -Anesthetic Used 4% Lidocaine Solution #1 RLE -Current Size (cm) - Length 2.5 -Current Size (cm) - Width 12.2 -Current Size (cm) - Depth 0.1 -Total Square Cm 30.50 -Photo Taken Yes -Exudate Amt Medium -Exudate Type Serosanguineous -Wound Margin Distinct, Outline Attached -Granulation Amt Large (67-100%) -Granulation Quality Saline -Necrosis Amt None Present (0 %) -Structure Exposed N/A -Texture (Jhoana-wound Skin Appearance) Localized Edema -Moisture (Jhoana-wound Skin Appearance) Weeping -Color (Jhoana-wound Skin Appearance) Hemosiderin Staining -Temperature (Jhoana-wound Skin No Abnormality Appearance) (Pt Warm) -Tenderness on Palpation (Jhoana-wound No Skin Appearance) -Ulcer Cleansing Soap and Water -Foul Odor after Cleansing No -Anesthetic Used 4% Lidocaine Solution Right Calf (cm) 50.5 Right Ankle (cm) 30.7 Left Calf (cm) 47 Left Ankle (cm) 31 - Nurse 2 - General Ulcer CM Notes Start: 08/23/23 14:07 Freq: Status: Active Protocol: Activity Type Activity Date Activity User E-sign Co-sign Detail Recorded Client Recorded Date Recorded By Document 08/23/23 14:50 GM wound center 08/23/23 14:54 GM 08/23/23 14:50 Wound Center Nurse 2 #2 LLE Clluster -Time 14:50 -Correct Patient Yes -Correct Side, Site, Position Yes #1 RLE -Time 14:50 -Correct Patient Yes -Correct Side, Site, Position Yes Pain Scale: 0-10 Numeric Is Patient Pain Free? Yes - Nurse 3 - General Ulcer D/C NN Start: 08/23/23 14:07 Freq: Status: Active Protocol: Activity Type Activity Date Activity User E-sign Co-sign Detail Recorded Client Recorded Date Recorded By Document 08/23/23 15:11 KW wound center 08/23/23 15:13 KW 08/23/23 15:11 Wound Care Center Nurse 3 BLE -Multi-Layered Wrap Application Unna Boot - Bilateral ($) Pain Scale: 0-10 Numeric Is Patient Pain Free? Yes WC - Visit Discharge Discharge Condition Stable Ambulatory Status Ambulatory Transportation Private Auto Medication Reconcilliation completed & No provided to patient/care provider Clinical Summary of Care Provided Yes Charges/Coding Visit Charges Office Visits / Consults: [id number] OV L3 Est 20min Assessment/Plan Assessment/Plan (1) Lymphedema: CODE(S): I89.0 - Lymphedema, not elsewhere classified (2) Lymphorrhea: CODE(S): I89.8 - Other specified noninfective disorders of lymphatic vessels and lymph nodes (3) Skin ulcer, limited to breakdown of skin: CODE(S): L98.491 - Non-pressure chronic ulcer of skin of other sites limited to breakdown of skin PLAN: Plan Will apply Unna boots bilaterally to address both the superficial skin breakdown and his edema. He is instructed to keep these clean and dry. Will plan for him to follow-up for a nurse visit on Sunday as needed for new Unna boots. If he is doing very well with them then okay to cancel this. He is also advised to elevate his legs at all times of rest, continue to participate in regular walking as tolerated, and to perform ankle flexion exercises. He is counseled to avoid prolonged periods of idle sitting/standing. I have already submitted for lymphedema pumps through the vascular office as he has failed 8+ weeks of conservative therapy with compression, elevation, and exercise with persistent significant symptoms as described above. There are signs of infection on exam today. He will return to see me in 1 week, sooner as needed.
--- NOTE | 2023-08-28 12:00 | WC ---
08/23/2023 (I) RIGHT LOWER EXTREMITY
--- NOTE | 2023-08-28 12:01 | WC ---
08/23/2023 (I) LEFT LOWER EXTREMITY CLUSTER
[2023-08-28 14:50] VITALS: BP 107/53; PULSE 77; RESP 18; TEMP 36.3; BMI 40.2
[2023-08-30 13:54] VITALS: BP 181/75; PULSE 70; RESP 18; TEMP 36.9; BMI 40.2
--- NOTE | 2023-08-30 17:02 | PCM.WC.PN ---
History of Present Illness Date of Service: 08/30/23 Chief Complaint: Bilateral lower extremity edema with weeping History of Wound: Mr. John Nickerson is a pleasant 62 y/o gentleman who presents today for management of his lower extremity edema with weeping and superficial skin breakdown. He is well known to me from the vascular surgery office. He has a several year-long history of lower extremity edema which has progressively worsened over the last 1-2 years. He also has associated chronic skin changes including hyperpigmentation, blistering, weeping. He also has associated discomfort including leg heaviness. The edema does significantly limit his quality of life as he is not able to actively participate in activities he used to really enjoy such as long walks, golfing, etc. Just basic mobility is made more difficult by his edema. Unfortunately, over the last couple of weeks he has had significant fluid blisters develop which has formed superficial wounds upon rupture. He has significant associated weeping. He has been trying to manage at home with gauze wrap and TERESITA bandage wraps without much improvement. He did have a vascular workup including venous reflux study which showed limited focal reflux insufficient to explain his severity of his bilateral symptoms and a venogram which was negative for any central venous compression. He does have significant past medical history. He is a type 1 diabetic. Overall, fair control at this time by his report. He did have ESRD and was dialysis dependent for a period prior to receiving a renal transplant. He has CAD s/p PCI, HTN, neuropathy. He is a smoker. Subjective Subjective Patient tolerated the Unna boots well. His open areas have overall decreased in size and surrounding skin is improved in appearance. Less weeping was noted on exam today. He had no issues keeping the boots clean and dry. He does share that he is going to be on a trip next week so he will not be able to come for any appointments. He expects to return Saturday 09/09. Objective Data Objective Data Vital Signs: Vital Signs Temp Pulse Resp BP O2 Del Method 98.5 F 70 18 181/75 H Room Air 08/30/23 13:54 08/30/23 13:54 08/30/23 13:54 08/30/23 13:54 08/30/23 13:54 Oxygen Delivery Method Room Air Weight: 280 lb 4.709 oz Body Mass Index (BMI) 40.2 Charges/Coding Visit Charges Office Visits / Consults: 78749 OV L3 Est 20min Physical Exam Const alert, oriented x3 and no apparent distress General Appearance: cooperative and comfortable HEENT normocephalic, head/scalp atraumatic, hearing grossly normal bilaterally and external ears normal Head and Scalp: normal to inspection and normocephalic Eyes EOMs intact bilaterally General Eye: normal appearance of both eyes Neck General: normal visual inspection and trachea midline Resp normal respiratory effort, no retractions and no use of accessory muscles Effort and Inspection: able to speak in complete sentences Cardio regular rate and regular rhythm Extremity Extremity Narrative: Significant bilateral lower extremity edema: (08/22) R Calf 50.5 cm, R ankle 30.7 cm --> (08/29) R Calf 49.5 cm, R ankle 31 cm (08/22) L Calf 47 cm, L ankle 31 cm --> (08/29) L Calf 49.5 cm, L ankle 30.7 cm Skin Skin Narrative: Hyperpigmentation and lipodermatosclerosis noted bilaterally Wounds: wounds noted Wound Narrative: There is a large ruptured blister on the posterolateral aspect of the RLE. There is an associated superficial wound that extends anteriorly. There is no surrounding warmth/focal swelling. Serous drainage is noted. There is a large superficial wound cluster on the anterolateral aspect of the LLE with significant serous drainage/weeping noted. There is no foul odor, focal swelling, significant warmth or erythema. Neuro oriented x3, CN's II-XII intact bilaterally, moves all extremities and no focal motor deficits Psych mental status grossly normal Appearance: grossly normal Attitude: calm and engaged Activity / Motor Behavior: appropriate eye contact Speech: normal speech Mood & Affect: euthymic mood Judgement: judgement good Debridement Note Debridement Note No debridement was completed: No debridement was completed today Post-Debridement Measurements and Additional Note: Post-Debridement Measurements/Treatment MORENA - Nurse 1 - General Ulcer Assessment Start: 08/23/23 14:07 Freq: Status: Active Protocol: LAITH Activity Type Activity Date Activity User E-sign Co-sign Detail Recorded Client Recorded Date Recorded By Document 08/23/23 14:14 DL [email or web address] 08/23/23 14:34 DL Document 08/28/23 14:50 RB wound cnter 08/28/23 14:52 RB Document 08/30/23 13:54 KW wound center 08/30/23 14:16 KW 08/23/23 08/28/23 08/30/23 14:14 14:50 13:54 WC - Today's Visit Information Type of service Initial Visit Nurse-only Follow-up Visit Visit (Physician/SENIOR SQL DBA ) Arrival Mode Ambulatory Ambulatory Ambulatory Transfer Assistance None None Patient Identification Verified (Name & Yes Yes Yes ) Patient Requires Transmission-Based No No Precautions Height and Weight Height 5 ft 10 in Weight 280 lb 4.709 oz Weight in Pounds 280.3 lbs Body Mass Index (BMI) 40.2 40.2 40.2 BMI Classification Obese Obese Obese BSA - Mario 2.41 Vital Signs Temperature (97.8 F-99.1 F) 97.3 F L 97.4 F L 98.5 F Temperature Source Temporal Temporal Temporal Pulse Rate (60-100) 75 77 70 Pulse Location Monitor Monitor Monitor Respiratory Rate (12-18) 18 18 18 Respiratory rate source Observation Observation Observation Oxygen Delivery Method Room Air Blood Pressure (90/60-120/80) 141/67 H 107/53 L 181/75 H Blood Pressure Mean (mm Hg) 91 71 110 Source Monitor Monitor Monitor Position Semi-Fowlers Semi-Fowlers Blood Pressure Location Left Arm Left Forearm History Since Last Visit- (Skip if this is Patient's initial visit) Have you changed medications since your No last visit? Any new allergies or adverse reactions No Had a fall/change in ADL's that may No increase risk of falls Signs or symptoms of abuse and/or No neglect since last visit Have you been in the hospital since your No last visit? Has dressing in place as prescribed Yes Has compression in place as prescribed Yes Has offloadiing in place as prescribed Yes Experienced any changes in pain level or No management Left Footwear Regular Shoe Right Footwear Surgical Shoe with pressure relief insole Pain Scale: 0-10 Numeric Is Patient Pain Free? Yes Yes Yes Communication Assessment Preferred language Monegasque Able to Read Yes Able to Write Yes Communication Tools None Right Hearing Abillity Normal Left Hearing Abillity Normal Visual Assistive Devices Glasses Teaching Assessment Preferences Verbal,Written, Demonstration Barriers to Learning None Readiness To Learn Good Willingness to Engage in Self Management Med Activies Readiness to Engage in Self Management Med Activities Anxiety Level Calm Cooperation Cooperative Perception Coherent Interest in Health Problem Asks Questions Education Importance Acknowledges Need Does Patient Smoke tobacco or other Yes substances Smoking Status Current some day smoker Is Patient Diabetic Yes Functional Assessment Recent Decline in Ability to Perform Denies Any Declines Culture/Oriental Orthodox/Integrated Specialist Cultural/Oriental Orthodox Needs that may affect No Treatment Plan Would you allow our hospital crystallography teacher to No meet you for the purpose of spiritual/ emotional support? Integrated Specialist to contact place of islam No Teaching: Wound Center Discharge Instructions -Person Taught Patient *Welcome to the Wound Center -Person Taught Patient WC - Nurse 1 - General Ulcer Measurement Start: 08/23/23 14:07 Freq: Status: Active Protocol: Activity Type Activity Date Activity User E-sign Co-sign Detail Recorded Client Recorded Date Recorded By Document 08/23/23 14:14 DL [email or web address] 08/23/23 14:34 DL Document 08/28/23 14:50 RB wound cnter 08/28/23 14:52 RB Document 08/30/23 13:54 KW wound center 08/30/23 14:16 KW 08/23/23 08/28/23 08/30/23 14:14 14:50 13:54 Wound Center Nurse 1 #3 R POST LE -Current Size (cm) - Length 3.8 -Current Size (cm) - Width 10 -Current Size (cm) - Depth 0.1 -Total Square Cm 38.0 -Exudate Amt Medium -Exudate Type Serosanguineous -Wound Margin Distinct, Outline Attached -Granulation Amt Large (67-100%) -Granulation Quality Red -Texture (Jhoana-wound Skin Appearance) Assessed -Moisture (Jhoana-wound Skin Appearance) Assessed -Color (Jhoana-wound Skin Appearance) Assessed, Erythema -Temperature (Jhoana-wound Skin No Abnormality Appearance) (Pt Warm) -Tenderness on Palpation (Jhoana-wound No Skin Appearance) -Ulcer Cleansing Soap and Water -Foul Odor after Cleansing No -Anesthetic Used 5% Lidocaine Gel #2 L LAT CLUSTER -Current Size (cm) - Length 14.8 2.3 -Current Size (cm) - Width 8.5 3.1 -Current Size (cm) - Depth 0.1 0.1 -Total Square Cm 125.80 7.13 -Photo Taken Yes -Exudate Amt Large Medium -Exudate Type Serosanguineous Serosanguineous -Wound Margin Distinct, Distinct, Outline Outline Attached Attached -Granulation Amt Large (67-100%) Large (67-100%) -Granulation Quality [place] Red -Necrosis Amt Small (1-33%) -Necrotic Tissue Type Adherent Slough -Structure Exposed N/A -Texture (Jhoana-wound Skin Appearance) Localized Edema Assessed ,Scarring -Moisture (Jhoana-wound Skin Appearance) Weeping Assessed -Color (Jhoana-wound Skin Appearance) Hemosiderin Assessed, Staining Erythema -Temperature (Jhoana-wound Skin No Abnormality No Abnormality Appearance) (Pt Warm) (Pt Warm) -Tenderness on Palpation (Jhoana-wound No No Skin Appearance) -Ulcer Cleansing Soap and Water Soap and Water -Foul Odor after Cleansing No No -Anesthetic Used 4% Lidocaine 5% Lidocaine Solution Gel #1 R ANT ANKLE -Current Size (cm) - Length 2.5 4 -Current Size (cm) - Width 12.2 1.8 -Current Size (cm) - Depth 0.1 0.1 -Total Square Cm 30.50 7.2 -Photo Taken Yes -Exudate Amt Medium Medium -Exudate Type Serosanguineous Serosanguineous -Wound Margin Distinct, Distinct, Outline Outline Attached Attached -Granulation Amt Large (67-100%) Large (67-100%) -Granulation Quality [place] Red -Necrosis Amt None Present (0 %) -Structure Exposed N/A -Texture (Jhoana-wound Skin Appearance) Localized Edema Assessed -Moisture (Jhoana-wound Skin Appearance) Weeping Assessed -Color (Jhoana-wound Skin Appearance) Hemosiderin Assessed, Staining Erythema -Temperature (Jhoana-wound Skin No Abnormality No Abnormality Appearance) (Pt Warm) (Pt Warm) -Tenderness on Palpation (Jhoana-wound No Skin Appearance) -Ulcer Cleansing Soap and Water Soap and Water -Foul Odor after Cleansing No -Anesthetic Used 4% Lidocaine 5% Lidocaine Solution Gel Lower Limb Edema Present Yes Right Calf (cm) 50.5 49 49.5 Right Ankle (cm) 30.7 32 31 Left Calf (cm) 47 50 49.5 Left Ankle (cm) 31 33 30.7 WC - Nurse 2 - General Ulcer CM Notes Start: 08/23/23 14:07 Freq: Status: Active Protocol: Activity Type Activity Date Activity User E-sign Co-sign Detail Recorded Client Recorded Date Recorded By Document 08/23/23 14:50 GM wound center 08/23/23 14:54 GM Document 08/30/23 14:22 GM 08/30/23 14:31 GM 08/23/23 08/30/23 14:50 14:22 Wound Center Nurse 2 #3 R POST LE -Time 14:22 -Correct Patient Yes -Correct Side, Site, Position Yes -Wound Comment(s) [id number] #2 L LAT CLUSTER -Time 14:50 14:30 -Correct Patient Yes Yes -Correct Side, Site, Position Yes Yes -Wound/Ulcer Outcome Not Healed -Wound Comment(s) 1.5x3.5x0.1 #1 R ANT ANKLE -Time 14:50 14:30 -Correct Patient Yes Yes -Correct Side, Site, Position Yes Yes -Wound/Ulcer Outcome Not Healed -Wound Comment(s) 1.8x3.9x0.1 Pain Scale: 0-10 Numeric Is Patient Pain Free? Yes Yes - Nurse 3 - General Ulcer D/C NN Start: 08/23/23 14:07 Freq: Status: Active Protocol: Activity Type Activity Date Activity User E-sign Co-sign Detail Recorded Client Recorded Date Recorded By Document 08/23/23 15:11 KW wound center 08/23/23 15:13 KW Document 08/28/23 14:50 RB wound cnter 08/28/23 14:52 RB 08/23/23 08/28/23 15:11 14:50 Wound Care Center Nurse 3 BLE -Multi-Layered Wrap Application Unna Boot - Unna Boot - Bilateral ($) Bilateral ($) Treatment Response Procedure Tolerated Well Vital Signs Temperature (97.8 F-99.1 F) 97.4 F L Temperature Source Temporal Pulse Rate (60-100) 77 Pulse Location Monitor Respiratory Rate (12-18) 18 Respiratory rate source Observation Blood Pressure (90/60-120/80) 107/53 L Blood Pressure Mean (mm Hg) 71 Source Monitor Position Semi-Fowlers Blood Pressure Location Left Arm Pain Scale: 0-10 Numeric Is Patient Pain Free? Yes Yes WC - Visit Discharge Discharge Condition Stable Stable Ambulatory Status Ambulatory Ambulatory Transportation Private Auto Private Auto Medication Reconcilliation completed & No No provided to patient/care provider Clinical Summary of Care Provided Yes Yes Assessment/Plan Assessment/Plan (1) Lymphedema: CODE(S): I89.0 - Lymphedema, not elsewhere classified (2) Lymphorrhea: CODE(S): I89.8 - Other specified noninfective disorders of lymphatic vessels and lymph nodes (3) Skin ulcer, limited to breakdown of skin: CODE(S): L98.491 - Non-pressure chronic ulcer of skin of other sites limited to breakdown of skin PLAN: Plan Since he will be out of town and unable to come in for a dressing change next week, will not apply Unna boot this week. Instead, will have him apply Aquacel to all open areas, cover with super absorber/dry dressing. For compression, will utilize double-layer tubigrips. He is instructed to change this dressing daily or more often as needed to keep clean and dry. He is also advised to continue to elevate his legs at all times of rest, participate in regular walking as tolerated, and to perform ankle flexion exercises. He is counseled to avoid prolonged periods of idle sitting/standing. He has not had any significant improvement in his lower extremity edema with compression. Significant symptoms persist despite adherence to all of the conservative measures listed above. We are in the process of requesting lymphedema pumps which are, in my opinion, medically necessary for management of his edema, healing his current wounds, and minimizing risk of recurrence. There are signs of infection on exam today. Will plan for a nurse visit when he returns on 09/09 if able and will re-apply Unna boots then. He will return to see me on 09/12 to reassess.
== END 2023-08-31 23:59 | disposition home or self-care (01) ==
LOC: WC 14:00
PROVIDERS: PCP Student in an Organized Health Care Education/Training Program; Referring Provider Physician Assistant; Visit Provider Physician Assistant
DX: I89.0 Lymphedema, not elsewhere classified (principal); I12.0 Hypertensive chronic kidney disease with stage 5 chronic kidney disease or end stage renal disease; N18.6 End stage renal disease; L98.491 Non-pressure chronic ulcer of skin of other sites limited to breakdown of skin; E10.42 Type 1 diabetes mellitus with diabetic polyneuropathy; E10.59 Type 1 diabetes mellitus with other circulatory complications; E10.22 Type 1 diabetes mellitus with diabetic chronic kidney disease; Z79.4 Long term (current) use of insulin; I87.2 Venous insufficiency (chronic) (peripheral); E78.5 Hyperlipidemia, unspecified; F17.200 Nicotine dependence, unspecified, uncomplicated; Z86.16 Personal history of COVID-19; I25.10 Atherosclerotic heart disease of native coronary artery without angina pectoris; R60.0 Localized edema; Z95.5 Presence of coronary angioplasty implant and graft; I89.8 Other specified noninfective disorders of lymphatic vessels and lymph nodes
CPT/HCPCS: 29580; 99213; G0463

== ENCOUNTER 2023-09-27 13:15 | Outpatient (RCR) | payer MEDICARE, MEDICAID, OTHER, SELFPAY ==
[2023-09-01 02:40] VITALS: BP 181/75; PULSE 70; RESP 18; TEMP 36.9; BMI 40.2
[2023-09-10 13:30] VITALS: BP 151/64; PULSE 71; RESP 20; TEMP 36.6; BMI 40.2
--- NOTE | 2023-09-10 14:18 | PCM.WC.PN ---
History of Present Illness Date of Service: 09/10/23 Chief Complaint: Bilateral lower extremity edema with weeping History of Wound: Mr. John Nickerson is a pleasant 62 y/o gentleman who presents today for management of his lower extremity edema with weeping and superficial skin breakdown. He is well known to me from the vascular surgery office. He has a several year-long history of lower extremity edema which has progressively worsened over the last 1-2 years. He also has associated chronic skin changes including hyperpigmentation, blistering, weeping. He also has associated discomfort including leg heaviness. The edema does significantly limit his quality of life as he is not able to actively participate in activities he used to really enjoy such as long walks, golfing, etc. Just basic mobility is made more difficult by his edema. Unfortunately, over the last couple of weeks he has had significant fluid blisters develop which has formed superficial wounds upon rupture. He has significant associated weeping. He has been trying to manage at home with gauze wrap and TERESITA bandage wraps without much improvement. He did have a vascular workup including venous reflux study which showed limited focal reflux insufficient to explain his severity of his bilateral symptoms and a venogram which was negative for any central venous compression. He does have significant past medical history. He is a type 1 diabetic. Overall, fair control at this time by his report. He did have ESRD and was dialysis dependent for a period prior to receiving a renal transplant. He has CAD s/p PCI, HTN, neuropathy. He is a smoker. Progress of Wound: Courtesy visit. Patient came in for a nurse visit to have Unna boots placed, and I was asked to evaluate him due to the amount of blistering he is experiencing. He was on vacation for several days so he was to wear compression. He states that he took a break for one day. Since then, the swelling in his legs and right foot increased and he developed multiple large fluid filled blisters covering his bilateral lower legs. Most of the blisters have already started to drain. Objective Data Objective Data Vital Signs: Vital Signs Temp Pulse Resp BP 98 F 71 20 H 151/64 H 09/10/23 13:30 09/10/23 13:30 09/10/23 13:30 09/10/23 13:30 Weight: 280 lb 4.709 oz Body Mass Index (BMI) 40.2 Charges/Coding Visit Charges Office Visits / Consults: 69635 OV L3 Est 20min Physical Exam Const alert and oriented x3 General Appearance: cooperative HEENT normocephalic Eyes Eyes Narrative: Normal appearance of eyes. Neck Neck Narrative: Normal ROM Lymph Lymphatic Narrative: Bilateral lower extremity edema and lymphedema present. Resp normal respiratory effort Effort and Inspection: able to speak in complete sentences Cardio regular rate Cardio Narrative: Bilateral pedal pulses palpable. Extremity normal capillary refill Extremity Narrative: +4 pitting edema with blisters present. Skin Wound Narrative: Right lateral distal leg with ulcer that is stable in appearance. Multiple large fluid filled blisters present that are in various stages of draining. Neuro CN's II-XII intact bilaterally Psych affect normal Debridement Note Debridement Note No debridement was completed: No debridement was completed today Post-Debridement Measurements and Additional Note: Post-Debridement Measurements/Treatment WC - Nurse 1 - General Ulcer Assessment Start: 09/10/23 13:30 Freq: Status: Active Protocol: WC.LOWTALIA Activity Type Activity Date Activity User E-sign Co-sign Detail Recorded Client Recorded Date Recorded By Document 09/10/23 13:30 DL [email or web address] 09/10/23 13:45 DL 09/10/23 13:30 WC - Today's Visit Information Type of service Nurse-only Visit Arrival Mode Ambulatory Transfer Assistance None Patient Identification Verified (Name & Yes ) Patient Requires Transmission-Based No Precautions Height and Weight Body Mass Index (BMI) 40.2 BMI Classification Obese Vital Signs Temperature (97.8 F-99.1 F) 98 F Temperature Source Temporal Pulse Rate (60-100) 71 Pulse Location Monitor Respiratory Rate (12-18) 20 H Respiratory rate source Observation Blood Pressure (90/60-120/80) 151/64 H Blood Pressure Mean (mm Hg) 93 Source Monitor History Since Last Visit- (Skip if this is Patient's initial visit) Have you changed medications since your No last visit? Any new allergies or adverse reactions No Had a fall/change in ADL's that may No increase risk of falls Signs or symptoms of abuse and/or No neglect since last visit Have you been in the hospital since your No last visit? Has dressing in place as prescribed Yes Has compression in place as prescribed Yes Has offloadiing in place as prescribed N/A Experienced any changes in pain level or No management Pain Scale: 0-10 Numeric Is Patient Pain Free? Yes WC - Nurse 1 - General Ulcer Measurement Start: 09/10/23 13:30 Freq: Status: Active Protocol: Activity Type Activity Date Activity User E-sign Co-sign Detail Recorded Client Recorded Date Recorded By Document 09/10/23 13:30 DL [email or web address] 09/10/23 13:45 DL 09/10/23 13:30 Wound Center Nurse 1 #3 R POST LE -Current Size (cm) - Length 0.1 -Current Size (cm) - Width 0.1 -Current Size (cm) - Depth 0.1 -Total Square Cm 0.01 -Photo Taken Yes -Exudate Amt Large -Exudate Type Serosanguineous -Wound Margin Distinct, Outline Attached -Granulation Amt Large (67-100%) -Granulation Quality [place] -Necrosis Amt None Present (0 %) -Texture (Jhoana-wound Skin Appearance) Localized Edema -Moisture (Jhoana-wound Skin Appearance) Weeping -Color (Jhoana-wound Skin Appearance) Hemosiderin Staining -Temperature (Jhoana-wound Skin No Abnormality Appearance) (Pt Warm) -Tenderness on Palpation (Jhoana-wound No Skin Appearance) -Ulcer Cleansing Soap and Water -Foul Odor after Cleansing No #2 L LAT CLUSTER -Current Size (cm) - Length 0.1 -Current Size (cm) - Width 0.1 -Current Size (cm) - Depth 0.1 -Total Square Cm 0.01 -Photo Taken Yes -Exudate Amt Large -Exudate Type Serosanguineous -Wound Margin Distinct, Outline Attached -Granulation Amt Large (67-100%) -Granulation Quality [place] -Structure Exposed N/A -Texture (Jhoana-wound Skin Appearance) Scarring -Moisture (Jhoana-wound Skin Appearance) Weeping -Color (Jhoana-wound Skin Appearance) Hemosiderin Staining -Temperature (Jhoana-wound Skin No Abnormality Appearance) (Pt Warm) -Ulcer Cleansing Soap and Water -Foul Odor after Cleansing No #1 R ANT ANKLE -Current Size (cm) - Length 0.1 -Current Size (cm) - Width 0.1 -Current Size (cm) - Depth 0.1 -Total Square Cm 0.01 -Photo Taken Yes -Exudate Amt Large -Exudate Type Serosanguineous -Wound Margin Distinct, Outline Attached -Granulation Amt Large (67-100%) -Granulation Quality [place] -Necrosis Amt None Present (0 %) -Structure Exposed N/A -Texture (Jhoana-wound Skin Appearance) Localized Edema ,Scarring -Moisture (Jhoana-wound Skin Appearance) Weeping -Color (Jhoana-wound Skin Appearance) Hemosiderin Staining -Temperature (Jhoana-wound Skin No Abnormality Appearance) (Pt Warm) -Tenderness on Palpation (Jhoana-wound No Skin Appearance) -Ulcer Cleansing Soap and Water -Foul Odor after Cleansing No -Wound Comment(s) Pt here today for NV but has several new large blisters to NOEL legs. Was on Vacation and was on feet continuously and did not wear his compression on one evening. Will see Antonina Clay today to evaluate. Right Calf (cm) 50.5 Right Ankle (cm) 33.6 Left Calf (cm) 50 Left Ankle (cm) 29.6 WC - Nurse 2 - General Ulcer CM Notes Start: 09/10/23 13:30 Freq: Status: Active Protocol: Activity Type Activity Date Activity User E-sign Co-sign Detail Recorded Client Recorded Date Recorded By Document 09/10/23 14:06 [facility] [id number] 09/10/23 14:07 [facility] 09/10/23 14:06 Wound Center Nurse 2 #3 R POST LE -Wound/Ulcer Outcome Not Healed -Bleeding Controlled with NA #2 L LAT CLUSTER -Wound/Ulcer Outcome Not Healed -Bleeding Controlled with NA #1 R ANT ANKLE -Wound/Ulcer Outcome Not Healed -Bleeding Controlled with NA Pain Scale: 0-10 Numeric Is Patient Pain Free? Yes - Nurse 3 - General Ulcer D/C NN Start: 09/10/23 13:30 Freq: Status: Active Protocol: Activity Type Activity Date Activity User E-sign Co-sign Detail Recorded Client Recorded Date Recorded By Document 09/10/23 13:30 DL ..25.7 09/10/23 13:45 DL 09/10/23 13:30 Vital Signs Temperature (97.8 F-99.1 F) 98 F Temperature Source Temporal Pulse Rate (60-100) 71 Pulse Location Monitor Respiratory Rate (12-18) 20 H Respiratory rate source Observation Blood Pressure (90/60-120/80) 151/64 H Blood Pressure Mean (mm Hg) 93 Source Monitor Pain Scale: 0-10 Numeric Is Patient Pain Free? Yes Assessment/Plan Assessment/Plan (1) Lymphedema: CODE(S): I89.0 - Lymphedema, not elsewhere classified (2) Lymphorrhea: CODE(S): I89.8 - Other specified noninfective disorders of lymphatic vessels and lymph nodes (3) Skin ulcer, limited to breakdown of skin: CODE(S): L98.491 - Non-pressure chronic ulcer of skin of other sites limited to breakdown of skin PLAN: Plan He was out of town for several days, so he did not have his Unna boot in place. He was using double layer tubigrip for compression. He states that he did take a break from the compression for a day. He was doing a lot of walking and riding in a golf cart while he was gone. He presented today for a nurse visit to have his Unna boots placed back on. I was asked to do a courtesy visit due the severity of blistering present on his legs bilaterally. He had multiple large clear fluid filled blisters present bilaterally. Most of them had already started to drain. Wound care- Place Aquacel extra over the open area. Cover the blistered areas with adaptic and then top with ABDs or super absorbers, secure with Kerlix. Will place 3M 2 layer wraps for compression. He is scheduled to be seen on , but he was instructed to come in sooner for a nurse visit if his wraps became saturated or started to fall. Stressed importance of elevating his legs at times of rest. Avoid prolong periods of standing or sitting with legs dependant. Encouraged walking as tolerated. Follow up with schedule appointment with [facility] on .
--- NOTE | 2023-09-12 11:10 | WC ---
09/10/2023 RIGHT LOWER EXT. CLUSTER
[2023-09-13 13:31] VITALS: BP 138/65; PULSE 77; RESP 18; TEMP 36.7; BMI 40.2
--- NOTE | 2023-09-14 16:38 | PN.PCM_ITS ---
History of Present Illness Date of Service: 09/13/23 Chief Complaint: Bilateral lower extremity edema with weeping History of Wound: Mr. John Nickerson is a pleasant 62 y/o gentleman who presents today for management of his lower extremity edema with weeping and superficial skin breakdown. He is well known to me from the vascular surgery office. He has a several year-long history of lower extremity edema which has progressively worsened over the last 1-2 years. He also has associated chronic skin changes including hyperpigmentation, blistering, weeping. He also has associated discomfort including leg heaviness. The edema does significantly limit his quality of life as he is not able to actively participate in activities he used to really enjoy such as long walks, golfing, etc. Just basic mobility is made more difficult by his edema. Unfortunately, over the last couple of weeks he has had significant fluid blisters develop which has formed superficial wounds upon rupture. He has significant associated weeping. He has been trying to manage at home with gauze wrap and TERESITA bandage wraps without much improvement. He did have a vascular workup including venous reflux study which showed limited focal reflux insufficient to explain his severity of his bilateral symptoms and a venogram which was negative for any central venous compression. He does have significant past medical history. He is a type 1 diabetic. Overall, fair control at this time by his report. He did have ESRD and was dialysis dependent for a period prior to receiving a renal transplant. He has CAD s/p PCI, HTN, neuropathy. He is a smoker. Progress of Wound: Patient came in for a nurse visit to have Unna boots placed after his week long vacation on 09/11/23. At that time, he was noted to have worsened edema with large blisters on his lower legs and Silvia Clay saw him as a courtesy visit. At that time, instead of placing Unna boot Aquacel was placed over opened/ruptured areas, adaptic to the intact blisters, and a 3M wrap was placed bilaterally. He has done well with this wrap over the last couple of days. Nursing noted that the wrap was soaked upon removal but he reports he did not notice any drainage coming through the bandages. He has not had any spreading erythema, warmth. He has not had any N/V, F/C. He did enjoy his vacation. He needs one more visit (which is today) with leg measurements prior to approval of his lymphedema pumps. Objective Data Objective Data Vital Signs: Vital Signs Temp Pulse Resp BP O2 Del Method 98.1 F 77 18 138/65 H Room Air 09/13/23 13:31 09/13/23 13:31 09/13/23 13:31 09/13/23 13:31 09/13/23 13:31 Oxygen Delivery Method Room Air Weight: 280 lb 4.709 oz Body Mass Index (BMI) 40.2 Charges/Coding Visit Charges Office Visits / Consults: 29207 OV L3 Est 20min Physical Exam Const alert, oriented x3 and no apparent distress General Appearance: cooperative and comfortable HEENT normocephalic, head/scalp atraumatic, hearing grossly normal bilaterally and external ears normal Head and Scalp: normal to inspection and normocephalic Eyes EOMs intact bilaterally General Eye: normal appearance of both eyes Neck General: normal visual inspection and trachea midline Resp normal respiratory effort, no retractions and no use of accessory muscles Effort and Inspection: able to speak in complete sentences Cardio regular rate and regular rhythm Extremity Extremity Narrative: Significant bilateral lower extremity edema 4+: (08/22) R Calf 50.5 cm, R ankle 30.7 cm --> (08/29) R Calf 49.5 cm, R ankle 31 cm --> (09/12) R Calf 47 cm, R ankle 31 cm (08/22) L Calf 47 cm, L ankle 31 cm --> (08/29) L Calf 49.5 cm, L ankle 30.7 cm --> (09/12) L Calf 47 cm, L ankle 29.5 cm Skin Skin Narrative: Hyperpigmentation and lipodermatosclerosis noted bilaterally Wounds: wounds noted Wound Narrative: There is a large ruptured blister on the posterolateral aspect of the RLE. There is an associated superficial wound that extends anteriorly. There are small fluid filled blisters which remain unruptured. There is no surrounding warmth/focal swelling. Serous drainage is noted. There is a large superficial wound cluster on the anterolateral aspect of the LLE with significant serous drainage/weeping noted. There are clusters of large blisters in various stages of draining. There is no foul odor, focal swelling, significant warmth or erythema. Neuro oriented x3, CN's II-XII intact bilaterally, moves all extremities and no focal motor deficits Psych mental status grossly normal Appearance: grossly normal Attitude: calm and engaged Activity / Motor Behavior: appropriate eye contact Speech: normal speech Mood & Affect: euthymic mood Judgement: judgement good Debridement Note Debridement Note No debridement was completed: No debridement was completed today Post-Debridement Measurements and Additional Note: Post-Debridement Measurements/Treatment - Nurse 1 - General Ulcer Assessment Start: 09/10/23 13:30 Freq: Status: Active Protocol: LAITH Activity Type Activity Date Activity User E-sign Co-sign Detail Recorded Client Recorded Date Recorded By Document 09/10/23 13:30 DL [email or web address] 09/10/23 13:45 DL Document 09/13/23 13:31 KW g 09/13/23 13:50 KW 09/10/23 09/13/23 13:30 13:31 WC - Today's Visit Information Type of service Nurse-only 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 ) Arrival Mode Ambulatory Ambulatory Transfer Assistance None Patient Identification Verified (Name & Yes Yes ) Patient Requires Transmission-Based No Precautions Height and Weight Body Mass Index (BMI) 40.2 40.2 BMI Classification Obese Obese Vital Signs Temperature (97.8 F-99.1 F) 98 F 98.1 F Temperature Source Temporal Temporal Pulse Rate (60-100) 71 77 Pulse Location Monitor Monitor Respiratory Rate (12-18) 20 H 18 Respiratory rate source Observation Observation Oxygen Delivery Method Room Air Blood Pressure (90/60-120/80) 151/64 H 138/65 H Blood Pressure Mean (mm Hg) 93 89 Source Monitor Monitor Position Semi-Fowlers Blood Pressure Location Right Arm History Since Last Visit- (Skip if this is Patient's initial visit) Have you changed medications since your No No last visit? Any new allergies or adverse reactions No No Had a fall/change in ADL's that may No No increase risk of falls Signs or symptoms of abuse and/or No No neglect since last visit Have you been in the hospital since your No No last visit? Has dressing in place as prescribed Yes Yes Has compression in place as prescribed Yes Yes Has offloadiing in place as prescribed N/A Yes Experienced any changes in pain level or No No management Left Footwear Regular Shoe Right Footwear Surgical Shoe with pressure relief insole Pain Scale: 0-10 Numeric Is Patient Pain Free? Yes Yes WC - Nurse 1 - General Ulcer Measurement Start: 09/10/23 13:30 Freq: Status: Active Protocol: Activity Type Activity Date Activity User E-sign Co-sign Detail Recorded Client Recorded Date Recorded By Document 09/10/23 13:30 DL [email or web address] 09/10/23 13:45 DL Document 09/13/23 13:31 KW g 09/13/23 13:50 KW 09/10/23 09/13/23 13:30 13:31 Wound Center Nurse 1 #3 R POST LE -Current Size (cm) - Length 0.1 -Current Size (cm) - Width 0.1 -Current Size (cm) - Depth 0.1 -Total Square Cm 0.01 -Photo Taken Yes -Exudate Amt Large Large -Exudate Type Serosanguineous Serosanguineous -Wound Margin Distinct, Outline Attached -Granulation Amt Large (67-100%) Large (67-100%) -Granulation Quality Hendricks Red -Necrosis Amt None Present (0 %) -Texture (Jhoana-wound Skin Appearance) Localized Edema Assessed -Moisture (Jhoana-wound Skin Appearance) Weeping Assessed, Weeping -Color (Jhoana-wound Skin Appearance) Hemosiderin Assessed, Staining Erythema -Temperature (Jhoana-wound Skin No Abnormality No Abnormality Appearance) (Pt Warm) (Pt Warm) -Tenderness on Palpation (Jhoana-wound No No Skin Appearance) -Ulcer Cleansing Soap and Water Soap and Water -Foul Odor after Cleansing No No #2 L LAT CLUSTER -Current Size (cm) - Length 0.1 -Current Size (cm) - Width 0.1 -Current Size (cm) - Depth 0.1 -Total Square Cm 0.01 -Photo Taken Yes -Exudate Amt Large Large -Exudate Type Serosanguineous Serosanguineous -Wound Margin Distinct, Distinct, Outline Outline Attached Attached -Granulation Amt Large (67-100%) Large (67-100%) -Granulation Quality Hendricks Red -Structure Exposed N/A -Texture (Jhoana-wound Skin Appearance) Scarring Assessed -Moisture (Jhoana-wound Skin Appearance) Weeping Assessed, Weeping -Color (Jhoana-wound Skin Appearance) Hemosiderin Assessed, Staining Erythema -Temperature (Jhoana-wound Skin No Abnormality No Abnormality Appearance) (Pt Warm) (Pt Warm) -Tenderness on Palpation (Jhoana-wound No Skin Appearance) -Ulcer Cleansing Soap and Water Soap and Water -Foul Odor after Cleansing No No #1 R ANT ANKLE -Current Size (cm) - Length 0.1 -Current Size (cm) - Width 0.1 -Current Size (cm) - Depth 0.1 -Total Square Cm 0.01 -Photo Taken Yes -Exudate Amt Large Medium -Exudate Type Serosanguineous Serosanguineous -Wound Margin Distinct, Distinct, Outline Outline Attached Attached -Granulation Amt Large (67-100%) Large (67-100%) -Granulation Quality Hendricks Red -Necrosis Amt None Present (0 %) -Structure Exposed N/A -Texture (Jhoana-wound Skin Appearance) Localized Edema Assessed ,Scarring -Moisture (Jhoana-wound Skin Appearance) Weeping Assessed -Color (Jhoana-wound Skin Appearance) Hemosiderin Assessed, Staining Erythema -Temperature (Jhoana-wound Skin No Abnormality No Abnormality Appearance) (Pt Warm) (Pt Warm) -Tenderness on Palpation (Jhoana-wound No No Skin Appearance) -Ulcer Cleansing Soap and Water Soap and Water -Foul Odor after Cleansing No -Wound Comment(s) Pt here today for NV but has several new large blisters to NOEL legs. Was on Vacation and was on feet continuously and did not wear his compression on one evening. Will see Antonina Clay today to evaluate. Right Calf (cm) 50.5 47 Right Ankle (cm) 33.6 31.5 Left Calf (cm) 50 47 Left Ankle (cm) 29.6 29.5 - Nurse 2 - General Ulcer CM Notes Start: 09/10/23 13:30 Freq: Status: Active Protocol: Activity Type Activity Date Activity User E-sign Co-sign Detail Recorded Client Recorded Date Recorded By Document 09/10/23 14:06 [facility] [id number] 09/10/23 14:07 [facility] Document 09/13/23 14:03 [facility] 09/13/23 14:09 09/10/23 09/13/23 14:06 14:03 Wound Center Nurse 2 #4 Left anterior -Time 14:08 -Correct Patient Yes -Correct Side, Site, Position Yes -Wound/Ulcer Outcome Not Healed -Wound Comment(s) 12 x 9.0 x 0.1 #3 R POST LE -Time 14:03 -Correct Patient Yes -Correct Side, Site, Position Yes -Tunneling No -Undermining/Tunneling No -Circular Undermining No -Wound/Ulcer Outcome Not Healed Not Healed -Bleeding Controlled with NA -Wound Comment(s) 10.6 x 5.7 x 0. 1 #2 L LAT CLUSTER -Time 14:03 -Correct Patient Yes -Correct Side, Site, Position Yes -Tunneling No -Undermining/Tunneling No -Circular Undermining No -Wound/Ulcer Outcome Not Healed Not Healed -Ulcer Cleansing Rinsed/ Irrigated with Saline -Foul Odor after Cleansing No -Bleeding Controlled with NA -Wound Comment(s) 9.5 x 12 x 0.1 #1 R ANT ANKLE -Time 14:04 -Correct Patient Yes -Correct Side, Site, Position Yes -Tunneling No -Undermining/Tunneling No -Circular Undermining No -Wound/Ulcer Outcome Not Healed Not Healed -Bleeding Controlled with NA Pain Scale: 0-10 Numeric Is Patient Pain Free? Yes Yes WC - Nurse 3 - General Ulcer D/C NN Start: 09/10/23 13:30 Freq: Status: Active Protocol: Activity Type Activity Date Activity User E-sign Co-sign Detail Recorded Client Recorded Date Recorded By Document 09/10/23 13:30 DL [email or web address] 09/10/23 13:45 DL Document 09/10/23 14:41 DL [email or web address] 09/10/23 14:43 DL Document 09/13/23 14:11 KW g 09/13/23 14:15 KW 09/10/23 09/10/23 09/13/23 13:30 14:41 14:11 Vital Signs Temperature (97.8 F-99.1 F) 98 F Temperature Source Temporal Pulse Rate (60-100) 71 Pulse Location Monitor Respiratory Rate (12-18) 20 H Respiratory rate source Observation Blood Pressure (90/60-120/80) 151/64 H Blood Pressure Mean (mm Hg) 93 Source Monitor Pain Scale: 0-10 Numeric Is Patient Pain Free? Yes Yes Yes Wound Care Center Nurse 3 #4 Left anterior -Primary Dressing Applied Aquacel Extra, Optilok 8x12 -Primary Dressing Covered/Secured with Dry Gauze & Roll Gauze, Secured with Tape -Aquacel Extra 1 -Optilok 8x12 1 #3 R POST LE -Ulcer Cleansing Soap and Water -Foul Odor after Cleansing No -Primary Dressing Applied NonAdherent Contact Layer, Optilok 6.5x10 -Primary Dressing Covered/Secured with Dry Gauze & Dry Gauze Roll Gauze, Secured with Tape -Optilok 6.5x10 1 #2 L LAT CLUSTER -Ulcer Cleansing Soap and Water -Foul Odor after Cleansing No -Primary Dressing Applied NonAdherent Contact Layer, Optilok 6.5x10 -Primary Dressing Covered/Secured with Dry Gauze & Dry Gauze Roll Gauze -Optilok 6.5x10 1 #1 R ANT ANKLE -Ulcer Cleansing Soap and Water -Foul Odor after Cleansing No -Primary Dressing Applied NonAdherent Aquacel Extra, Contact Layer Optilok 8x12 -Other Dressing superabsorber -Primary Dressing Covered/Secured with Dry Gauze & Dry Gauze & Roll Gauze, Roll Gauze, Secured with Secured with Tape Tape -Aquacel Extra 1 -Optilok 8x12 1 BLE -Multi-Layered Wrap Application Multi-Layer Multi-Layer Comp - Bilat ($ Comp - Bilat ($ ) ) Treatment Response Procedure Tolerated Well WC - Visit Discharge Discharge Condition Stable Stable Ambulatory Status Ambulatory Ambulatory Transportation Private Auto Private Auto Medication Reconcilliation completed & No provided to patient/care provider Clinical Summary of Care Provided Yes Assessment/Plan Assessment/Plan (1) Lymphedema: CODE(S): I89.0 - Lymphedema, not elsewhere classified (2) Lymphorrhea: CODE(S): I89.8 - Other specified noninfective disorders of lymphatic vessels and lymph nodes (3) Skin ulcer, limited to breakdown of skin: CODE(S): L98.491 - Non-pressure chronic ulcer of skin of other sites limited to breakdown of skin PLAN: Plan Given the significant number of blisters remaining, we will continue with Aquacel extra to the open areas followed by ABD/super absorbers, kerlix, and then 3M wraps for compression. He will return for a nurse visit with bandage changes on Sunday. I emphasized the importance of elevating his legs at all times of rest and frequently throughout the day. He is encouraged to perform ankle flexion exercises. He is counseled to avoid prolonged periods of idle sitting/standing. Significant lymphedema symptoms persist despite adherence to all of the conservative measures listed above. We are in the process of requesting lymphedema pumps which are, in my opinion, medically necessary for management of his edema, healing his current wounds, and minimizing risk of recurrence. There are signs of infection on exam today. Return for nurse visit Sunday, return to see me on .
[2023-09-17 13:25] VITALS: BP 117/49; PULSE 78; RESP 20; TEMP 36.6; BMI 40.2
[2023-09-20 13:29] VITALS: BP 121/55; PULSE 70; RESP 18; TEMP 36.6; BMI 40.2
--- NOTE | 2023-09-20 14:38 | PN.PCM_ITS ---
History of Present Illness Date of Service: 09/20/23 Chief Complaint: Bilateral lower extremity edema with weeping History of Wound: Mr. John Nickerson is a pleasant 62 y/o gentleman who presents today for management of his lower extremity edema with weeping and superficial skin breakdown. He is well known to me from the vascular surgery office. He has a several year-long history of lower extremity edema which has progressively worsened over the last 1-2 years. He also has associated chronic skin changes including hyperpigmentation, blistering, weeping. He also has associated discomfort including leg heaviness. The edema does significantly limit his quality of life as he is not able to actively participate in activities he used to really enjoy such as long walks, golfing, etc. Just basic mobility is made more difficult by his edema. Unfortunately, over the last couple of weeks he has had significant fluid blisters develop which has formed superficial wounds upon rupture. He has significant associated weeping. He has been trying to manage at home with gauze wrap and TERESITA bandage wraps without much improvement. He did have a vascular workup including venous reflux study which showed limited focal reflux insufficient to explain his severity of his bilateral symptoms and a venogram which was negative for any central venous compression. He does have significant past medical history. He is a type 1 diabetic. Overall, fair control at this time by his report. He did have ESRD and was dialysis dependent for a period prior to receiving a renal transplant. He has CAD s/p PCI, HTN, neuropathy. He is a smoker. Subjective Subjective Patient did well with wraps over the last week. Did come in for nurse visit on Sunday. Nursing noted his wraps to be quite wet, but patient reports he did not notice it soaking all the way through his bandages onto his clothes or anything. He does not have any new blisters this week, but most of the previously ruptured blisters have unfortunately resulted in superficial wounds. His swelling does seem to be improving with consistent use of compression wraps though significant swelling does remain, especially in his feet. Objective Data Objective Data Vital Signs: Vital Signs Temp Pulse Resp BP O2 Del Method 98 F 70 18 121/55 H Room Air 09/20/23 13:29 09/20/23 13:29 09/20/23 13:29 09/20/23 13:29 09/20/23 13:29 Oxygen Delivery Method Room Air Weight: 280 lb 4.709 oz Body Mass Index (BMI) 40.2 Charges/Coding Visit Charges Office Visits / Consults: [id number] OV L3 Est 20min Physical Exam Const alert, oriented x3 and no apparent distress General Appearance: cooperative and comfortable HEENT normocephalic, head/scalp atraumatic, hearing grossly normal bilaterally and external ears normal Head and Scalp: normal to inspection and normocephalic Eyes EOMs intact bilaterally General Eye: normal appearance of both eyes Neck General: normal visual inspection and trachea midline Resp normal respiratory effort, no retractions and no use of accessory muscles Effort and Inspection: able to speak in complete sentences Cardio regular rate and regular rhythm Extremity Extremity Narrative: Significant bilateral lower extremity edema: (08/22) R Calf 50.5 cm, R ankle 30.7 cm --> (08/29) R Calf 49.5 cm, R ankle 31 cm --> (09/12) R Calf 47 cm, R ankle 31 cm --> (09/19) R calf 46.5 cm, R ankle 32 cm (08/22) L Calf 47 cm, L ankle 31 cm --> (08/29) L Calf 49.5 cm, L ankle 30.7 cm --> (09/12) L Calf 47 cm, L ankle 29.5 cm --> (09/19) L calf 45 cm, L ankle 30 cm Skin Skin Narrative: Hyperpigmentation and lipodermatosclerosis noted bilaterally Wounds: wounds noted Wound Narrative: There are no remaining blisters, but now a large cluster of superficial wounds from the prior ruptured blisters. There is no significant surrounding erythema, warmth. There is weeping noted. No foul odor. There are no remaining blisters or new blisters on the LLE, but there is a circumferential cluster of superifical wounds from the prior blisters. There is no significant surrounding erythema, warmth. There is weeping noted. No foul odor. Neuro oriented x3, CN's II-XII intact bilaterally, moves all extremities and no focal motor deficits Psych mental status grossly normal Appearance: grossly normal Attitude: calm and engaged Activity / Motor Behavior: appropriate eye contact Speech: normal speech Mood & Affect: euthymic mood Judgement: judgement good Debridement Note Debridement Note No debridement was completed: No debridement was completed today Post-Debridement Measurements and Additional Note: Post-Debridement Measurements/Treatment WC - Nurse 1 - General Ulcer Assessment Start: 09/10/23 13:30 Freq: Status: Active Protocol: LAITH Activity Type Activity Date Activity User E-sign Co-sign Detail Recorded Client Recorded Date Recorded By Document 09/10/23 13:30 DL [id number] 09/10/23 13:45 DL Document 09/13/23 13:31 KW g 09/13/23 13:50 KW Document 09/17/23 13:25 DL [email or web address] 09/17/23 13:58 DL Document 09/20/23 13:29 MT [id number] 09/20/23 13:50 MT 09/10/23 09/13/23 09/17/23 13:30 13:31 13:25 WC - Today's Visit Information Type of service Nurse-only Follow-up Visit Nurse-only Visit (Physician/ASSOCIATE DIRECTOR OF NURSING Visit ) Arrival Mode Ambulatory Ambulatory Ambulatory Transfer Assistance None None Accompanied by Patient Identification Verified (Name & Yes Yes Yes ) Patient Requires Transmission-Based No No Precautions Safety Precautions Height and Weight Body Mass Index (BMI) 40.2 40.2 40.2 BMI Classification Obese Obese Obese Vital Signs Temperature (97.8 F-99.1 F) 98 F 98.1 F 98 F Temperature Source Temporal Temporal Temporal Pulse Rate (60-100) 71 77 78 Pulse Location Monitor Monitor Respiratory Rate (12-18) 20 H 18 20 H Respiratory rate source Observation Observation Observation Oxygen Delivery Method Room Air Blood Pressure (90/60-120/80) 151/64 H 138/65 H 117/49 L Blood Pressure Mean (mm Hg) 93 89 71 Source Monitor Monitor Monitor Position Semi-Fowlers Blood Pressure Location Right Arm History Since Last Visit- (Skip if this is Patient's initial visit) Have you changed medications since your No No No last visit? Any new allergies or adverse reactions No No No Had a fall/change in ADL's that may No No No increase risk of falls Signs or symptoms of abuse and/or No No No neglect since last visit Have you been in the hospital since your No No No last visit? Has dressing in place as prescribed Yes Yes Yes Has compression in place as prescribed Yes Yes Yes Has offloadiing in place as prescribed N/A Yes N/A Experienced any changes in pain level or No No No management Left Footwear Regular Shoe Regular Shoe Right Footwear Surgical Shoe Surgical Shoe with pressure with pressure relief insole relief insole Pain Scale: 0-10 Numeric Is Patient Pain Free? Yes Yes Yes 09/20/23 13:29 WC - Today's Visit Information Type of service Follow-up Visit (Physician/ASSOCIATE DIRECTOR OF NURSING ) Arrival Mode Ambulatory Transfer Assistance Accompanied by SELF Patient Identification Verified (Name & Yes ) Patient Requires Transmission-Based Precautions Safety Precautions Fall Prevention Height and Weight Body Mass Index (BMI) 40.2 BMI Classification Obese Vital Signs Temperature (97.8 F-99.1 F) 98 F Temperature Source Temporal Pulse Rate (60-100) 70 Pulse Location Monitor Respiratory Rate (12-18) 18 Respiratory rate source Observation Oxygen Delivery Method Room Air Blood Pressure (90/60-120/80) 121/55 H Blood Pressure Mean (mm Hg) 77 Source Monitor Position Sitting Blood Pressure Location Right Arm History Since Last Visit- (Skip if this is Patient's initial visit) Have you changed medications since your last visit? Any new allergies or adverse reactions Had a fall/change in ADL's that may increase risk of falls Signs or symptoms of abuse and/or neglect since last visit Have you been in the hospital since your last visit? Has dressing in place as prescribed Yes Has compression in place as prescribed Yes Has offloadiing in place as prescribed Yes Experienced any changes in pain level or Yes management Left Footwear Regular Shoe Right Footwear Regular Shoe Pain Scale: 0-10 Numeric Is Patient Pain Free? Yes WC - Nurse 1 - General Ulcer Measurement Start: 09/10/23 13:30 Freq: Status: Active Protocol: Activity Type Activity Date Activity User E-sign Co-sign Detail Recorded Client Recorded Date Recorded By Document 09/10/23 13:30 DL [email or web address] 09/10/23 13:45 DL Document 09/13/23 13:31 KW g 09/13/23 13:50 KW Document 09/17/23 13:25 DL [email or web address] 09/17/23 13:58 DL Document 09/20/23 13:29 MT [id number] 09/20/23 13:50 MT 09/10/23 09/13/23 09/17/23 13:30 13:31 13:25 Wound Center Nurse 1 #4 Left anterior -Combined with other wound -Exudate Amt Medium -Exudate Type Serosanguineous -Wound Margin Distinct, Outline Attached -Granulation Amt Large (67-100%) -Granulation Quality Deepstep -Structure Exposed N/A -Moisture (Jhoana-wound Skin Appearance) Weeping -Color (Jhoana-wound Skin Appearance) Hemosiderin Staining -Temperature (Jhoana-wound Skin No Abnormality Appearance) (Pt Warm) -Ulcer Cleansing Not Cleansed -Foul Odor after Cleansing No #3 R POST LE -Combined with other wound -Current Size (cm) - Length 0.1 -Current Size (cm) - Width 0.1 -Current Size (cm) - Depth 0.1 -Total Square Cm 0.01 -Photo Taken Yes -Exudate Amt Large Large Medium -Exudate Type Serosanguineous Serosanguineous Serosanguineous -Wound Margin Distinct, Distinct, Outline Outline Attached Attached -Granulation Amt Large (67-100%) Large (67-100%) Large (67-100%) -Granulation Quality Deepstep Red Deepstep -Necrosis Amt None Present (0 None Present (0 %) %) -Texture (Jhoana-wound Skin Appearance) Localized Edema Assessed -Moisture (Jhoana-wound Skin Appearance) Weeping Assessed, Weeping Weeping -Color (Jhoana-wound Skin Appearance) Hemosiderin Assessed, Hemosiderin Staining Erythema Staining -Temperature (Jhoana-wound Skin No Abnormality No Abnormality No Abnormality Appearance) (Pt Warm) (Pt Warm) (Pt Warm) -Tenderness on Palpation (Jhoana-wound No No No Skin Appearance) -Ulcer Cleansing Soap and Water Soap and Water Soap and Water -Foul Odor after Cleansing No No No #2 L LAT CLUSTER -Combined with other wound -Current Size (cm) - Length 0.1 -Current Size (cm) - Width 0.1 -Current Size (cm) - Depth 0.1 -Total Square Cm 0.01 -Photo Taken Yes -Exudate Amt Large Large Medium -Exudate Type Serosanguineous Serosanguineous Serosanguineous -Wound Margin Distinct, Distinct, Distinct, Outline Outline Outline Attached Attached Attached -Granulation Amt Large (67-100%) Large (67-100%) Large (67-100%) -Granulation Quality Deepstep Red Deepstep -Necrosis Amt None Present (0 %) -Structure Exposed N/A -Texture (Jhoana-wound Skin Appearance) Scarring Assessed -Moisture (Jhoana-wound Skin Appearance) Weeping Assessed, Weeping Weeping -Color (Jhoana-wound Skin Appearance) Hemosiderin Assessed, Hemosiderin Staining Erythema Staining -Temperature (Jhoana-wound Skin No Abnormality No Abnormality No Abnormality Appearance) (Pt Warm) (Pt Warm) (Pt Warm) -Tenderness on Palpation (Jhoana-wound No No Skin Appearance) -Ulcer Cleansing Soap and Water Soap and Water Soap and Water -Foul Odor after Cleansing No No No #1 R ANT ANKLE -Combined with other wound -Current Size (cm) - Length 0.1 -Current Size (cm) - Width 0.1 -Current Size (cm) - Depth 0.1 -Total Square Cm 0.01 -Photo Taken Yes -Exudate Amt Large Medium Medium -Exudate Type Serosanguineous Serosanguineous Serosanguineous -Wound Margin Distinct, Distinct, Distinct, Outline Outline Outline Attached Attached Attached -Granulation Amt Large (67-100%) Large (67-100%) Large (67-100%) -Granulation Quality Deepstep Red Deepstep -Necrosis Amt None Present (0 %) -Structure Exposed N/A -Texture (Jhoana-wound Skin Appearance) Localized Edema Assessed ,Scarring -Moisture (Jhoana-wound Skin Appearance) Weeping Assessed Weeping -Color (Jhoana-wound Skin Appearance) Hemosiderin Assessed, Hemosiderin Staining Erythema Staining -Temperature (Jhoana-wound Skin No Abnormality No Abnormality Appearance) (Pt Warm) (Pt Warm) -Tenderness on Palpation (Jhoana-wound No No Skin Appearance) -Ulcer Cleansing Soap and Water Soap and Water Soap and Water -Foul Odor after Cleansing No No -Wound Comment(s) Pt here today for NV but has several new large blisters to NOEL legs. Was on Vacation and was on feet continuously and did not wear his compression on one evening. Will see Antonina Clay today to evaluate. #6 LLE Cluster -Current Size (cm) - Length -Current Size (cm) - Width -Current Size (cm) - Depth -Total Square Cm -Photo Taken -Exudate Amt -Exudate Type -Wound Margin -Granulation Amt -Granulation Quality -Necrosis Amt -Necrotic Tissue Type -Structure Exposed -Texture (Jhoana-wound Skin Appearance) -Moisture (Jhoana-wound Skin Appearance) -Color (Jhoana-wound Skin Appearance) -Temperature (Jhoana-wound Skin Appearance) -Tenderness on Palpation (Jhoana-wound Skin Appearance) -Ulcer Cleansing -Foul Odor after Cleansing -Anesthetic Used #5 RLE Cluster -Current Size (cm) - Length -Current Size (cm) - Width -Current Size (cm) - Depth -Total Square Cm -Photo Taken -Granulation Amt -Granulation Quality -Necrosis Amt -Structure Exposed -Texture (Jhoana-wound Skin Appearance) -Moisture (Jhoana-wound Skin Appearance) -Color (Jhoana-wound Skin Appearance) -Temperature (Jhoana-wound Skin Appearance) -Ulcer Cleansing -Foul Odor after Cleansing -Anesthetic Used Right Calf (cm) 50.5 47 45.8 Right Ankle (cm) 33.6 31.5 31.7 Left Calf (cm) 50 47 42.4 Left Ankle (cm) 29.6 29.5 30.3 09/20/23 13:29 Wound Center Nurse 1 #4 Left anterior -Combined with other wound Yes -Exudate Amt -Exudate Type -Wound Margin -Granulation Amt -Granulation Quality -Structure Exposed -Moisture (Jhoana-wound Skin Appearance) -Color (Jhoana-wound Skin Appearance) -Temperature (Jhoana-wound Skin Appearance) -Ulcer Cleansing -Foul Odor after Cleansing #3 R POST LE -Combined with other wound Yes -Current Size (cm) - Length -Current Size (cm) - Width -Current Size (cm) - Depth -Total Square Cm -Photo Taken -Exudate Amt -Exudate Type -Wound Margin -Granulation Amt -Granulation Quality -Necrosis Amt -Texture (Jhoana-wound Skin Appearance) -Moisture (Jhoana-wound Skin Appearance) -Color (Jhoana-wound Skin Appearance) -Temperature (Jhoana-wound Skin Appearance) -Tenderness on Palpation (Jhoana-wound Skin Appearance) -Ulcer Cleansing -Foul Odor after Cleansing #2 L LAT CLUSTER -Combined with other wound Yes -Current Size (cm) - Length -Current Size (cm) - Width -Current Size (cm) - Depth -Total Square Cm -Photo Taken -Exudate Amt -Exudate Type -Wound Margin -Granulation Amt -Granulation Quality -Necrosis Amt -Structure Exposed -Texture (Jhoana-wound Skin Appearance) -Moisture (Jhoana-wound Skin Appearance) -Color (Jhoana-wound Skin Appearance) -Temperature (Jhoana-wound Skin Appearance) -Tenderness on Palpation (Jhoana-wound Skin Appearance) -Ulcer Cleansing -Foul Odor after Cleansing #1 R ANT ANKLE -Combined with other wound Yes -Current Size (cm) - Length -Current Size (cm) - Width -Current Size (cm) - Depth -Total Square Cm -Photo Taken -Exudate Amt -Exudate Type -Wound Margin -Granulation Amt -Granulation Quality -Necrosis Amt -Structure Exposed -Texture (Jhoana-wound Skin Appearance) -Moisture (Jhoana-wound Skin Appearance) -Color (Jhoana-wound Skin Appearance) -Temperature (Jhoana-wound Skin Appearance) -Tenderness on Palpation (Jhoana-wound Skin Appearance) -Ulcer Cleansing -Foul Odor after Cleansing -Wound Comment(s) #6 LLE Cluster -Current Size (cm) - Length 12.5 -Current Size (cm) - Width 31 -Current Size (cm) - Depth 0.1 -Total Square Cm 387.5 -Photo Taken Yes -Exudate Amt Large -Exudate Type Serosanguineous -Wound Margin Distinct, Outline Attached -Granulation Amt Large (67-100%) -Granulation Quality Deepstep -Necrosis Amt Small (1-33%) -Necrotic Tissue Type Adherent Slough -Structure Exposed N/A -Texture (Jhoana-wound Skin Appearance) Scarring -Moisture (Jhoana-wound Skin Appearance) Weeping -Color (Jhoana-wound Skin Appearance) Erythema -Temperature (Jhoana-wound Skin No Abnormality Appearance) (Pt Warm) -Tenderness on Palpation (Jhoana-wound No Skin Appearance) -Ulcer Cleansing Soap and Water -Foul Odor after Cleansing No -Anesthetic Used 4% Lidocaine Solution #5 RLE Cluster -Current Size (cm) - Length 13.5 -Current Size (cm) - Width 21.5 -Current Size (cm) - Depth 0.1 -Total Square Cm 290.25 -Photo Taken Yes -Granulation Amt Large (67-100%) -Granulation Quality Deepstep -Necrosis Amt Small (1-33%) -Structure Exposed N/A -Texture (Jhoana-wound Skin Appearance) Scarring -Moisture (Jhoana-wound Skin Appearance) Weeping -Color (Jhoana-wound Skin Appearance) Hemosiderin Staining -Temperature (Jhoana-wound Skin No Abnormality Appearance) (Pt Warm) -Ulcer Cleansing Soap and Water -Foul Odor after Cleansing No -Anesthetic Used 4% Lidocaine Solution Right Calf (cm) 46.5 Right Ankle (cm) 32 Left Calf (cm) 45 Left Ankle (cm) 30 - Nurse 2 - General Ulcer CM Notes Start: 09/10/23 13:30 Freq: Status: Active Protocol: Activity Type Activity Date Activity User E-sign Co-sign Detail Recorded Client Recorded Date Recorded By Document 09/10/23 14:06 [facility] [id number] 09/10/23 14:07 [facility] Document 09/13/23 14:03 [facility] 09/13/23 14:09 Document 09/20/23 13:54 [facility] 09/20/23 14:00 09/10/23 09/13/23 09/20/23 14:06 14:03 13:54 Wound Center Nurse 2 #4 Left anterior -Time 14:08 -Correct Patient Yes -Correct Side, Site, Position Yes -Wound/Ulcer Outcome Not Healed -Wound Comment(s) 12 x 9.0 x 0.1 #3 R POST LE -Time 14:03 -Correct Patient Yes -Correct Side, Site, Position Yes -Tunneling No -Undermining/Tunneling No -Circular Undermining No -Wound/Ulcer Outcome Not Healed Not Healed -Bleeding Controlled with NA -Wound Comment(s) 10.6 x 5.7 x 0. 1 #2 L LAT CLUSTER -Time 14:03 -Correct Patient Yes -Correct Side, Site, Position Yes -Tunneling No -Undermining/Tunneling No -Circular Undermining No -Wound/Ulcer Outcome Not Healed Not Healed -Ulcer Cleansing Rinsed/ Irrigated with Saline -Foul Odor after Cleansing No -Bleeding Controlled with NA -Wound Comment(s) 9.5 x 12 x 0.1 #1 R ANT ANKLE -Time 14:04 -Correct Patient Yes -Correct Side, Site, Position Yes -Tunneling No -Undermining/Tunneling No -Circular Undermining No -Wound/Ulcer Outcome Not Healed Not Healed -Bleeding Controlled with NA #6 LLE Cluster -Time 13:55 -Correct Patient Yes -Correct Side, Site, Position Yes -Wound Comment(s) circumferential x 12 x 0.1 #5 RLE Cluster -Time 13:55 -Correct Patient Yes -Correct Side, Site, Position Yes -Wound Comment(s) 17 x 12.9 x 0.1 Pain Scale: 0-10 Numeric Is Patient Pain Free? Yes Yes Yes WC - Nurse 3 - General Ulcer D/C NN Start: 09/10/23 13:30 Freq: Status: Active Protocol: Activity Type Activity Date Activity User E-sign Co-sign Detail Recorded Client Recorded Date Recorded By Document 09/10/23 13:30 DL [email or web address] 09/10/23 13:45 DL Document 09/10/23 14:41 DL [email or web address] 09/10/23 14:43 DL Document 09/13/23 14:11 KW g 09/13/23 14:15 KW Document 09/17/23 13:25 DL [email or web address] 09/17/23 13:58 DL 09/10/23 09/10/23 09/13/23 13:30 14:41 14:11 Vital Signs Temperature (97.8 F-99.1 F) 98 F Temperature Source Temporal Pulse Rate (60-100) 71 Pulse Location Monitor Respiratory Rate (12-18) 20 H Respiratory rate source Observation Blood Pressure (90/60-120/80) 151/64 H Blood Pressure Mean (mm Hg) 93 Source Monitor Pain Scale: 0-10 Numeric Is Patient Pain Free? Yes Yes Yes Wound Care Center Nurse 3 #4 Left anterior -Ulcer Cleansing -Foul Odor after Cleansing -Primary Dressing Applied Aquacel Extra, Optilok 8x12 -Primary Dressing Covered/Secured with Dry Gauze & Roll Gauze, Secured with Tape -Aquacel Extra 1 -Optilok 6.5x10 -Optilok 8x12 1 #3 R POST LE -Ulcer Cleansing Soap and Water -Foul Odor after Cleansing No -Primary Dressing Applied NonAdherent Contact Layer, Optilok 6.5x10 -Primary Dressing Covered/Secured with Dry Gauze & Dry Gauze Roll Gauze, Secured with Tape -Optilok 6.5x10 1 #2 L LAT CLUSTER -Ulcer Cleansing Soap and Water -Foul Odor after Cleansing No -Primary Dressing Applied NonAdherent Contact Layer, Optilok 6.5x10 -Other Dressing -Primary Dressing Covered/Secured with Dry Gauze & Dry Gauze Roll Gauze -Optilok 6.5x10 1 #1 R ANT ANKLE -Ulcer Cleansing Soap and Water -Foul Odor after Cleansing No -Primary Dressing Applied NonAdherent Aquacel Extra, Contact Layer Optilok 8x12 -Other Dressing superabsorber -Primary Dressing Covered/Secured with Dry Gauze & Dry Gauze & Roll Gauze, Roll Gauze, Secured with Secured with Tape Tape -Aquacel Extra 1 -Optilok 8x12 1 BLE -Multi-Layered Wrap Application Multi-Layer Multi-Layer Comp - Bilat ($ Comp - Bilat ($ ) ) Treatment Response Procedure Tolerated Well WC - Visit Discharge Discharge Condition Stable Stable Ambulatory Status Ambulatory Ambulatory Transportation Private Auto Private Auto Medication Reconcilliation completed & No provided to patient/care provider Clinical Summary of Care Provided Yes 09/17/23 13:25 Vital Signs Temperature (97.8 F-99.1 F) 98 F Temperature Source Temporal Pulse Rate (60-100) 78 Pulse Location Respiratory Rate (12-18) 20 H Respiratory rate source Observation Blood Pressure (90/60-120/80) 117/49 L Blood Pressure Mean (mm Hg) 71 Source Monitor Pain Scale: 0-10 Numeric Is Patient Pain Free? Yes Wound Care Center Nurse 3 #4 Left anterior -Ulcer Cleansing Not Cleansed -Foul Odor after Cleansing No -Primary Dressing Applied Aquacel Extra, Optilok 6.5x10 -Primary Dressing Covered/Secured with Dry Gauze & Roll Gauze -Aquacel Extra 1 -Optilok 6.5x10 1 -Optilok 8x12 #3 R POST LE -Ulcer Cleansing Soap and Water -Foul Odor after Cleansing No -Primary Dressing Applied Optilok 6.5x10 -Primary Dressing Covered/Secured with Dry Gauze & Roll Gauze -Optilok 6.5x10 1 #2 L LAT CLUSTER -Ulcer Cleansing Soap and Water -Foul Odor after Cleansing No -Primary Dressing Applied -Other Dressing aquacel ex/ superabsorber -Primary Dressing Covered/Secured with Dry Gauze & Roll Gauze, Secured with Tape -Optilok 6.5x10 #1 R ANT ANKLE -Ulcer Cleansing Soap and Water -Foul Odor after Cleansing No -Primary Dressing Applied -Other Dressing aquacel ex, superabsorber -Primary Dressing Covered/Secured with Dry Gauze & Roll Gauze, Secured with Tape -Aquacel Extra -Optilok 8x12 BLE -Multi-Layered Wrap Application Multi-Layer Comp - Bilat ($ ) Treatment Response Procedure Tolerated Well WC - Visit Discharge Discharge Condition Stable Ambulatory Status Ambulatory Transportation Private Auto Medication Reconcilliation completed & provided to patient/care provider Clinical Summary of Care Provided Assessment/Plan Assessment/Plan (1) Lymphedema: CODE(S): I89.0 - Lymphedema, not elsewhere classified (2) Lymphorrhea: CODE(S): I89.8 - Other specified noninfective disorders of lymphatic vessels and lymph nodes (3) Skin ulcer, limited to breakdown of skin: CODE(S): L98.491 - Non-pressure chronic ulcer of skin of other sites limited to breakdown of skin PLAN: Plan We will continue with Aquacel extra to the open areas followed by ABD/super absorbers, kerlix, and then 3M wraps for compression with super absorbers between the layers. He will return for a nurse visit with bandage changes on Sunday. I emphasized the importance of elevating his legs at all times of rest and frequently throughout the day. He is encouraged to perform ankle flexion exercises. He is counseled to avoid prolonged periods of idle sitting/standing. Significant lymphedema symptoms persist despite adherence to all of the con servative measures listed above. We are in the process of requesting lymphedema pumps which are, in my opinion, medically necessary for management of his edema, healing his current wounds, and minimizing risk of recurrence. There are signs of infection on exam today. Return for nurse visit Sunday, return to see me on .
[2023-09-24 13:32] VITALS: RESP 20; BMI 40.2
[2023-09-27 13:21] VITALS: BP 137/67; PULSE 70; RESP 18; TEMP 36.1; BMI 40.2
--- NOTE | 2023-09-27 16:14 | PCM.WC.PN ---
History of Present Illness Date of Service: 09/27/23 Chief Complaint: Bilateral lower extremity edema with weeping History of Wound: Mr. John Nickerson is a pleasant 62 y/o gentleman who presents today for management of his lower extremity edema with weeping and superficial skin breakdown. He is well known to me from the vascular surgery office. He has a several year-long history of lower extremity edema which has progressively worsened over the last 1-2 years. He also has associated chronic skin changes including hyperpigmentation, blistering, weeping. He also has associated discomfort including leg heaviness. The edema does significantly limit his quality of life as he is not able to actively participate in activities he used to really enjoy such as long walks, golfing, etc. Just basic mobility is made more difficult by his edema. Unfortunately, over the last couple of weeks he has had significant fluid blisters develop which has formed superficial wounds upon rupture. He has significant associated weeping. He has been trying to manage at home with gauze wrap and TERESITA bandage wraps without much improvement. He did have a vascular workup including venous reflux study which showed limited focal reflux insufficient to explain his severity of his bilateral symptoms and a venogram which was negative for any central venous compression. He does have significant past medical history. He is a type 1 diabetic. Overall, fair control at this time by his report. He did have ESRD and was dialysis dependent for a period prior to receiving a renal transplant. He has CAD s/p PCI, HTN, neuropathy. He is a smoker. Subjective Subjective He has been doing well this week. Continues to do well with 3M wraps, he is not noticing drainage soaking through the dressings though nursing notes they are saturated when removed. The wounds are overall improving in size. No new concerns. He has not heard from [facility] yet, but did send remaining needed measurements and signed off on prescription/order last week. Objective Data Objective Data Vital Signs: Vital Signs Temp Pulse Resp BP O2 Del Method 97 F L 70 18 137/67 H Room Air 09/27/23 13:21 09/27/23 13:21 09/27/23 13:21 09/27/23 13:21 09/20/23 13:29 Oxygen Delivery Method Room Air Weight: 280 lb 4.709 oz Body Mass Index (BMI) 40.2 Charges/Coding Visit Charges Office Visits / Consults: 36312 OV L3 Est 20min Physical Exam Const alert, oriented x3 and no apparent distress General Appearance: cooperative and comfortable HEENT normocephalic, head/scalp atraumatic, hearing grossly normal bilaterally and external ears normal Head and Scalp: normal to inspection and normocephalic Eyes EOMs intact bilaterally General Eye: normal appearance of both eyes Neck General: normal visual inspection and trachea midline Resp normal respiratory effort, no retractions and no use of accessory muscles Effort and Inspection: able to speak in complete sentences Cardio regular rate and regular rhythm Extremity Extremity Narrative: Significant bilateral lower extremity edema: (08/22) R Calf 50.5 cm, R ankle 30.7 cm --> (08/29) R Calf 49.5 cm, R ankle 31 cm --> (09/12) R Calf 47 cm, R ankle 31 cm --> (09/19) R calf 46.5 cm, R ankle 32 cm (08/22) L Calf 47 cm, L ankle 31 cm --> (08/29) L Calf 49.5 cm, L ankle 30.7 cm --> (09/12) L Calf 47 cm, L ankle 29.5 cm --> (09/19) L calf 45 cm, L ankle 30 cm Skin Skin Narrative: Hyperpigmentation and lipodermatosclerosis noted bilaterally Wounds: wounds noted Wound Narrative: Stil with large cluster of superficial wounds on the right lower leg, improved in size from last week. There is no significant surrounding erythema, warmth. There is weeping noted. No foul odor. Overall improvement in size of the LLE wound cluster, wounds remain superficial. There is no significant surrounding erythema, warmth. There is weeping noted. No foul odor. Neuro oriented x3, CN's II-XII intact bilaterally, moves all extremities and no focal motor deficits Psych mental status grossly normal Appearance: grossly normal Attitude: calm and engaged Activity / Motor Behavior: appropriate eye contact Speech: normal speech Mood & Affect: euthymic mood Judgement: judgement good Debridement Note Debridement Note No debridement was completed: No debridement was completed today Post-Debridement Measurements and Additional Note: Post-Debridement Measurements/Treatment MORENA - Nurse 1 - General Ulcer Assessment Start: 09/10/23 13:30 Freq: Status: Active Protocol: LAITH Activity Type Activity Date Activity User E-sign Co-sign Detail Recorded Client Recorded Date Recorded By Document 09/10/23 13:30 DL [email or web address] 09/10/23 13:45 DL Document 09/13/23 13:31 KW g 09/13/23 13:50 KW Document 09/17/23 13:25 DL [email or web address] 09/17/23 13:58 DL Document 09/20/23 13:29 MT [id number] 09/20/23 13:50 MT Document 09/24/23 13:32 DL [email or web address] 09/24/23 13:44 DL Document 09/27/23 13:21 DL [email or web address] 09/27/23 13:40 DL 09/10/23 09/13/23 09/17/23 13:30 13:31 13:25 WC - Today's Visit Information Type of service Nurse-only Follow-up Visit Nurse-only Visit (Physician/LEAD INSTALLER Visit ) Arrival Mode Ambulatory Ambulatory Ambulatory Transfer Assistance None None Accompanied by Patient Identification Verified (Name & Yes Yes Yes ) Patient Requires Transmission-Based No No Precautions Safety Precautions Height and Weight Body Mass Index (BMI) 40.2 40.2 40.2 BMI Classification Obese Obese Obese Vital Signs Temperature (97.8 F-99.1 F) 98 F 98.1 F 98 F Temperature Source Temporal Temporal Temporal Pulse Rate (60-100) 71 77 78 Pulse Location Monitor Monitor Respiratory Rate (12-18) 20 H 18 20 H Respiratory rate source Observation Observation Observation Oxygen Delivery Method Room Air Blood Pressure (90/60-120/80) 151/64 H 138/65 H 117/49 L Blood Pressure Mean (mm Hg) 93 89 71 Source Monitor Monitor Monitor Position Semi-Fowlers Blood Pressure Location Right Arm History Since Last Visit- (Skip if this is Patient's initial visit) Have you changed medications since your No No No last visit? Any new allergies or adverse reactions No No No Had a fall/change in ADL's that may No No No increase risk of falls Signs or symptoms of abuse and/or No No No neglect since last visit Have you been in the hospital since your No No No last visit? Has dressing in place as prescribed Yes Yes Yes Has compression in place as prescribed Yes Yes Yes Has offloadiing in place as prescribed N/A Yes N/A Experienced any changes in pain level or No No No management Left Footwear Regular Shoe Regular Shoe Right Footwear Surgical Shoe Surgical Shoe with pressure with pressure relief insole relief insole Pain Scale: 0-10 Numeric Is Patient Pain Free? Yes Yes Yes 09/20/23 09/24/23 09/27/23 13:29 13:32 13:21 WC - Today's Visit Information Type of service Follow-up Visit Nurse-only Initial Visit (Physician/LEAD INSTALLER Visit ) Arrival Mode Ambulatory Ambulatory Ambulatory Transfer Assistance None None Accompanied by SELF Patient Identification Verified (Name & Yes Yes Yes ) Patient Requires Transmission-Based No No Precautions Safety Precautions Fall Prevention Height and Weight Body Mass Index (BMI) 40.2 40.2 40.2 BMI Classification Obese Obese Obese Vital Signs Temperature (97.8 F-99.1 F) 98 F 97 F L Temperature Source Temporal Temporal Pulse Rate (60-100) 70 70 Pulse Location Monitor Monitor Respiratory Rate (12-18) 18 20 H 18 Respiratory rate source Observation Observation Observation Oxygen Delivery Method Room Air Blood Pressure (90/60-120/80) 121/55 H 137/67 H Blood Pressure Mean (mm Hg) 77 90 Source Monitor Monitor Position Sitting Blood Pressure Location Right Arm History Since Last Visit- (Skip if this is Patient's initial visit) Have you changed medications since your No No last visit? Any new allergies or adverse reactions No No Had a fall/change in ADL's that may No No increase risk of falls Signs or symptoms of abuse and/or No No neglect since last visit Have you been in the hospital since your No No last visit? Has dressing in place as prescribed Yes Yes Yes Has compression in place as prescribed Yes Yes Yes Has offloadiing in place as prescribed Yes Yes N/A Experienced any changes in pain level or Yes No No management Left Footwear Regular Shoe Regular Shoe Right Footwear Regular Shoe Surgical Shoe with pressure relief insole Pain Scale: 0-10 Numeric Is Patient Pain Free? Yes Yes Yes - Nurse 1 - General Ulcer Measurement Start: 09/10/23 13:30 Freq: Status: Active Protocol: Activity Type Activity Date Activity User E-sign Co-sign Detail Recorded Client Recorded Date Recorded By Document 09/10/23 13:30 DL [email or web address] 09/10/23 13:45 DL Document 09/13/23 13:31 KW g 09/13/23 13:50 KW Document 09/17/23 13:25 DL [email or web address] 09/17/23 13:58 DL Document 09/20/23 13:29 MT [id number] 09/20/23 13:50 MT Document 09/24/23 13:32 DL [email or web address] 09/24/23 13:44 DL Document 09/27/23 13:21 DL [email or web address] 09/27/23 13:40 DL 09/10/23 09/13/23 09/17/23 13:30 13:31 13:25 Wound Center Nurse 1 #4 Left anterior -Combined with other wound -Exudate Amt Medium -Exudate Type Serosanguineous -Wound Margin Distinct, Outline Attached -Granulation Amt Large (67-100%) -Granulation Quality [place] -Structure Exposed N/A -Moisture (Jhoana-wound Skin Appearance) Weeping -Color (Jhoana-wound Skin Appearance) Hemosiderin Staining -Temperature (Jhoana-wound Skin No Abnormality Appearance) (Pt Warm) -Ulcer Cleansing Not Cleansed -Foul Odor after Cleansing No #3 R POST LE -Combined with other wound -Current Size (cm) - Length 0.1 -Current Size (cm) - Width 0.1 -Current Size (cm) - Depth 0.1 -Total Square Cm 0.01 -Photo Taken Yes -Exudate Amt Large Large Medium -Exudate Type Serosanguineous Serosanguineous Serosanguineous -Wound Margin Distinct, Distinct, Outline Outline Attached Attached -Granulation Amt Large (67-100%) Large (67-100%) Large (67-100%) -Granulation Quality [place] Red [place] -Necrosis Amt None Present (0 None Present (0 %) %) -Texture (Jhoana-wound Skin Appearance) Localized Edema Assessed -Moisture (Jhoana-wound Skin Appearance) Weeping Assessed, Weeping Weeping -Color (Jhoana-wound Skin Appearance) Hemosiderin Assessed, Hemosiderin Staining Erythema Staining -Temperature (Jhoana-wound Skin No Abnormality No Abnormality No Abnormality Appearance) (Pt Warm) (Pt Warm) (Pt Warm) -Tenderness on Palpation (Jhoana-wound No No No Skin Appearance) -Ulcer Cleansing Soap and Water Soap and Water Soap and Water -Foul Odor after Cleansing No No No #2 L LAT CLUSTER -Combined with other wound -Current Size (cm) - Length 0.1 -Current Size (cm) - Width 0.1 -Current Size (cm) - Depth 0.1 -Total Square Cm 0.01 -Photo Taken Yes -Exudate Amt Large Large Medium -Exudate Type Serosanguineous Serosanguineous Serosanguineous -Wound Margin Distinct, Distinct, Distinct, Outline Outline Outline Attached Attached Attached -Granulation Amt Large (67-100%) Large (67-100%) Large (67-100%) -Granulation Quality [place] Red [place] -Necrosis Amt None Present (0 %) -Structure Exposed N/A -Texture (Jhoana-wound Skin Appearance) Scarring Assessed -Moisture (Jhoana-wound Skin Appearance) Weeping Assessed, Weeping Weeping -Color (Jhoana-wound Skin Appearance) Hemosiderin Assessed, Hemosiderin Staining Erythema Staining -Temperature (Jhoana-wound Skin No Abnormality No Abnormality No Abnormality Appearance) (Pt Warm) (Pt Warm) (Pt Warm) -Tenderness on Palpation (Jhoana-wound No No Skin Appearance) -Ulcer Cleansing Soap and Water Soap and Water Soap and Water -Foul Odor after Cleansing No No No #1 R ANT ANKLE -Combined with other wound -Current Size (cm) - Length 0.1 -Current Size (cm) - Width 0.1 -Current Size (cm) - Depth 0.1 -Total Square Cm 0.01 -Photo Taken Yes -Exudate Amt Large Medium Medium -Exudate Type Serosanguineous Serosanguineous Serosanguineous -Wound Margin Distinct, Distinct, Distinct, Outline Outline Outline Attached Attached Attached -Granulation Amt Large (67-100%) Large (67-100%) Large (67-100%) -Granulation Quality [place] -Necrosis Amt None Present (0 %) -Structure Exposed N/A -Texture (Jhoana-wound Skin Appearance) Localized Edema Assessed ,Scarring -Moisture (Jhoana-wound Skin Appearance) Weeping Assessed Weeping -Color (Jhoana-wound Skin Appearance) Hemosiderin Assessed, Hemosiderin Staining Erythema Staining -Temperature (Jhoana-wound Skin No Abnormality No Abnormality Appearance) (Pt Warm) (Pt Warm) -Tenderness on Palpation (Jhoana-wound No No Skin Appearance) -Ulcer Cleansing Soap and Water Soap and Water Soap and Water -Foul Odor after Cleansing No No -Wound Comment(s) Pt here today for NV but has several new large blisters to NOEL legs. Was on Vacation and was on feet continuously and did not wear his compression on one evening. Will see Antonina Clay today to evaluate. #6 LLE Cluster -Current Size (cm) - Length -Current Size (cm) - Width -Current Size (cm) - Depth -Total Square Cm -Photo Taken -Exudate Amt -Exudate Type -Wound Margin -Granulation Amt -Granulation Quality -Necrosis Amt -Necrotic Tissue Type -Structure Exposed -Texture (Jhoana-wound Skin Appearance) -Moisture (Jhoana-wound Skin Appearance) -Color (Jhoana-wound Skin Appearance) -Temperature (Jhoana-wound Skin Appearance) -Tenderness on Palpation (Jhoana-wound Skin Appearance) -Ulcer Cleansing -Foul Odor after Cleansing -Anesthetic Used #5 RLE Cluster -Current Size (cm) - Length -Current Size (cm) - Width -Current Size (cm) - Depth -Total Square Cm -Photo Taken -Exudate Amt -Exudate Type -Wound Margin -Granulation Amt -Granulation Quality -Necrosis Amt -Structure Exposed -Texture (Jhoana-wound Skin Appearance) -Moisture (Jhoana-wound Skin Appearance) -Color (Jhoana-wound Skin Appearance) -Temperature (Jhoana-wound Skin Appearance) -Tenderness on Palpation (Jhoana-wound Skin Appearance) -Ulcer Cleansing -Foul Odor after Cleansing -Anesthetic Used Right Calf (cm) 50.5 47 45.8 Right Ankle (cm) 33.6 31.5 31.7 Left Calf (cm) 50 47 42.4 Left Ankle (cm) 29.6 29.5 30.3 09/20/23 09/24/23 09/27/23 13:29 13:32 13:21 Wound Center Nurse 1 #4 Left anterior -Combined with other wound Yes -Exudate Amt -Exudate Type -Wound Margin -Granulation Amt -Granulation Quality -Structure Exposed -Moisture (Jhoana-wound Skin Appearance) -Color (Jhoana-wound Skin Appearance) -Temperature (Jhoana-wound Skin Appearance) -Ulcer Cleansing -Foul Odor after Cleansing #3 R POST LE -Combined with other wound Yes -Current Size (cm) - Length -Current Size (cm) - Width -Current Size (cm) - Depth -Total Square Cm -Photo Taken -Exudate Amt -Exudate Type -Wound Margin -Granulation Amt -Granulation Quality -Necrosis Amt -Texture (Jhoana-wound Skin Appearance) -Moisture (Jhoana-wound Skin Appearance) -Color (Jhoana-wound Skin Appearance) -Temperature (Jhoana-wound Skin Appearance) -Tenderness on Palpation (Jhoana-wound Skin Appearance) -Ulcer Cleansing -Foul Odor after Cleansing #2 L LAT CLUSTER -Combined with other wound Yes -Current Size (cm) - Length -Current Size (cm) - Width -Current Size (cm) - Depth -Total Square Cm -Photo Taken -Exudate Amt -Exudate Type -Wound Margin -Granulation Amt -Granulation Quality -Necrosis Amt -Structure Exposed -Texture (Jhoana-wound Skin Appearance) -Moisture (Jhoana-wound Skin Appearance) -Color (Jhoana-wound Skin Appearance) -Temperature (Jhoana-wound Skin Appearance) -Tenderness on Palpation (Jhoana-wound Skin Appearance) -Ulcer Cleansing -Foul Odor after Cleansing #1 R ANT ANKLE -Combined with other wound Yes -Current Size (cm) - Length -Current Size (cm) - Width -Current Size (cm) - Depth -Total Square Cm -Photo Taken -Exudate Amt -Exudate Type -Wound Margin -Granulation Amt -Granulation Quality -Necrosis Amt -Structure Exposed -Texture (Jhoana-wound Skin Appearance) -Moisture (Jhoana-wound Skin Appearance) -Color (Jhoana-wound Skin Appearance) -Temperature (Jhoana-wound Skin Appearance) -Tenderness on Palpation (Jhoana-wound Skin Appearance) -Ulcer Cleansing -Foul Odor after Cleansing -Wound Comment(s) #6 LLE Cluster -Current Size (cm) - Length 12.5 13 -Current Size (cm) - Width 31 10.5 -Current Size (cm) - Depth 0.1 0.1 -Total Square Cm 387.5 136.5 -Photo Taken Yes -Exudate Amt Large Medium Medium -Exudate Type Serosanguineous Serosanguineous Serosanguineous -Wound Margin Distinct, Distinct, Distinct, Outline Outline Outline Attached Attached Attached -Granulation Amt Large (67-100%) Large (67-100%) Large (67-100%) -Granulation Quality [place] Red -Necrosis Amt Small (1-33%) None Present (0 Small (1-33%) %) -Necrotic Tissue Type Adherent Slough Adherent Slough -Structure Exposed N/A N/A N/A -Texture (Jhoana-wound Skin Appearance) Scarring Localized Edema Scarring ,Scarring -Moisture (Jhoana-wound Skin Appearance) Weeping No Abnormality No Abnormality -Color (Jhoana-wound Skin Appearance) Erythema Hemosiderin Hemosiderin Staining Staining -Temperature (Jhoana-wound Skin No Abnormality No Abnormality No Abnormality Appearance) (Pt Warm) (Pt Warm) (Pt Warm) -Tenderness on Palpation (Jhoana-wound No No Skin Appearance) -Ulcer Cleansing Soap and Water Soap and Water Soap and Water -Foul Odor after Cleansing No No No -Anesthetic Used 4% Lidocaine 4% Lidocaine Solution Solution #5 RLE Cluster -Current Size (cm) - Length 13.5 12 -Current Size (cm) - Width 21.5 9 -Current Size (cm) - Depth 0.1 0.1 -Total Square Cm 290.25 108 -Photo Taken Yes -Exudate Amt Medium Medium -Exudate Type Serosanguineous Serosanguineous -Wound Margin Distinct, Distinct, Outline Outline Attached Attached -Granulation Amt Large (67-100%) Large (67-100%) Large (67-100%) -Granulation Quality [place] Red -Necrosis Amt Small (1-33%) None Present (0 None Present (0 %) %) -Structure Exposed N/A N/A N/A -Texture (Jhoana-wound Skin Appearance) Scarring Localized Edema Scarring -Moisture (Jhoana-wound Skin Appearance) Weeping No Abnormality No Abnormality -Color (Jhoana-wound Skin Appearance) Hemosiderin Hemosiderin Hemosiderin Staining Staining Staining -Temperature (Jhoana-wound Skin No Abnormality No Abnormality Appearance) (Pt Warm) (Pt Warm) -Tenderness on Palpation (Jhoana-wound Yes Skin Appearance) -Ulcer Cleansing Soap and Water Soap and Water Soap and Water -Foul Odor after Cleansing No No No -Anesthetic Used 4% Lidocaine 4% Lidocaine Solution Solution Right Calf (cm) 46.5 47 45.5 Right Ankle (cm) 32 31.6 31 Left Calf (cm) 45 44 43 Left Ankle (cm) 30 30.8 30.3 WC - Nurse 2 - General Ulcer CM Notes Start: 09/10/23 13:30 Freq: Status: Active Protocol: Activity Type Activity Date Activity User E-sign Co-sign Detail Recorded Client Recorded Date Recorded By Document 09/10/23 14:06 [facility] [id number] 09/10/23 14:07 [facility] Document 09/13/23 14:03 [facility] 09/13/23 14:09 Document 09/20/23 13:54 [facility] 09/20/23 14:00 Document 09/27/23 14:06 [facility] 09/27/23 14:14 09/10/23 09/13/23 09/20/23 14:06 14:03 13:54 Wound Center Nurse 2 #4 Left anterior -Time 14:08 -Correct Patient Yes -Correct Side, Site, Position Yes -Wound/Ulcer Outcome Not Healed -Wound Comment(s) 12 x 9.0 x 0.1 #3 R POST LE -Time 14:03 -Correct Patient Yes -Correct Side, Site, Position Yes -Tunneling No -Undermining/Tunneling No -Circular Undermining No -Wound/Ulcer Outcome Not Healed Not Healed -Bleeding Controlled with NA -Wound Comment(s) 10.6 x 5.7 x 0. 1 #2 L LAT CLUSTER -Time 14:03 -Correct Patient Yes -Correct Side, Site, Position Yes -Tunneling No -Undermining/Tunneling No -Circular Undermining No -Wound/Ulcer Outcome Not Healed Not Healed -Ulcer Cleansing Rinsed/ Irrigated with Saline -Foul Odor after Cleansing No -Bleeding Controlled with NA -Wound Comment(s) 9.5 x 12 x 0.1 #1 R ANT ANKLE -Time 14:04 -Correct Patient Yes -Correct Side, Site, Position Yes -Tunneling No -Undermining/Tunneling No -Circular Undermining No -Wound/Ulcer Outcome Not Healed Not Healed -Bleeding Controlled with NA #7 Right medial leg -Time -Correct Patient -Correct Side, Site, Position -Wound/Ulcer Outcome -Wound Comment(s) #6 LLE Cluster -Time 13:55 -Correct Patient Yes -Correct Side, Site, Position Yes -Wound/Ulcer Outcome -Wound Comment(s) circumferential x 12 x 0.1 #5 RLE Cluster -Time 13:55 -Correct Patient Yes -Correct Side, Site, Position Yes -Wound Comment(s) 17 x 12.9 x 0.1 Pain Scale: 0-10 Numeric Is Patient Pain Free? Yes Yes Yes 09/27/23 14:06 Wound Center Nurse 2 #4 Left anterior -Time -Correct Patient -Correct Side, Site, Position -Wound/Ulcer Outcome -Wound Comment(s) #3 R POST LE -Time -Correct Patient -Correct Side, Site, Position -Tunneling -Undermining/Tunneling -Circular Undermining -Wound/Ulcer Outcome -Bleeding Controlled with -Wound Comment(s) #2 L LAT CLUSTER -Time -Correct Patient -Correct Side, Site, Position -Tunneling -Undermining/Tunneling -Circular Undermining -Wound/Ulcer Outcome -Ulcer Cleansing -Foul Odor after Cleansing -Bleeding Controlled with -Wound Comment(s) #1 R ANT ANKLE -Time -Correct Patient -Correct Side, Site, Position -Tunneling -Undermining/Tunneling -Circular Undermining -Wound/Ulcer Outcome -Bleeding Controlled with #7 Right medial leg -Time 14:13 -Correct Patient Yes -Correct Side, Site, Position Yes -Wound/Ulcer Outcome Not Healed -Wound Comment(s) 8.0 x 3.0 x 0.1 measurement #6 LLE Cluster -Time 14:09 -Correct Patient Yes -Correct Side, Site, Position Yes -Wound/Ulcer Outcome Not Healed -Wound Comment(s) #5 RLE Cluster -Time 14:12 -Correct Patient Yes -Correct Side, Site, Position Yes -Wound Comment(s) right lateral cluster, 11.3 x 16 x 0.1 Pain Scale: 0-10 Numeric Is Patient Pain Free? Yes WC - Nurse 3 - General Ulcer D/C NN Start: 09/10/23 13:30 Freq: Status: Active Protocol: Activity Type Activity Date Activity User E-sign Co-sign Detail Recorded Client Recorded Date Recorded By Document 09/10/23 13:30 DL [email or web address] 09/10/23 13:45 DL Document 09/10/23 14:41 DL [email or web address] 09/10/23 14:43 DL Document 09/13/23 14:11 KW g 09/13/23 14:15 KW Document 09/17/23 13:25 DL [email or web address] 09/17/23 13:58 DL Document 09/20/23 15:41 DL [id number] 09/20/23 15:44 DL Document 09/24/23 13:32 DL [email or web address] 09/24/23 13:44 DL Document 09/27/23 14:54 DL [email or web address] 09/27/23 14:59 DL 09/10/23 09/10/23 09/13/23 13:30 14:41 14:11 Vital Signs Temperature (97.8 F-99.1 F) 98 F Temperature Source Temporal Pulse Rate (60-100) 71 Pulse Location Monitor Respiratory Rate (12-18) 20 H Respiratory rate source Observation Blood Pressure (90/60-120/80) 151/64 H Blood Pressure Mean (mm Hg) 93 Source Monitor Pain Scale: 0-10 Numeric Is Patient Pain Free? Yes Yes Yes Wound Care Center Nurse 3 #4 Left anterior -Ulcer Cleansing -Foul Odor after Cleansing -Primary Dressing Applied Aquacel Extra, Optilok 8x12 -Primary Dressing Covered/Secured with Dry Gauze & Roll Gauze, Secured with Tape -Aquacel Extra 1 -Optilok 6.5x10 -Optilok 8x12 1 #3 R POST LE -Ulcer Cleansing Soap and Water -Foul Odor after Cleansing No -Primary Dressing Applied NonAdherent Contact Layer, Optilok 6.5x10 -Primary Dressing Covered/Secured with Dry Gauze & Dry Gauze Roll Gauze, Secured with Tape -Optilok 6.5x10 1 #2 L LAT CLUSTER -Ulcer Cleansing Soap and Water -Foul Odor after Cleansing No -Primary Dressing Applied NonAdherent Contact Layer, Optilok 6.5x10 -Other Dressing -Primary Dressing Covered/Secured with Dry Gauze & Dry Gauze Roll Gauze -Optilok 6.5x10 1 #1 R ANT ANKLE -Ulcer Cleansing Soap and Water -Foul Odor after Cleansing No -Primary Dressing Applied NonAdherent Aquacel Extra, Contact Layer Optilok 8x12 -Other Dressing superabsorber -Primary Dressing Covered/Secured with Dry Gauze & Dry Gauze & Roll Gauze, Roll Gauze, Secured with Secured with Tape Tape -Aquacel Extra 1 -Optilok 8x12 1 #7 Right medial leg -Ulcer Cleansing -Foul Odor after Cleansing -Primary Dressing Applied -Primary Dressing Covered/Secured with -Aquacel Extra #6 LLE Cluster -Ulcer Cleansing -Foul Odor after Cleansing -Primary Dressing Applied -Primary Dressing Covered/Secured with -Other Covering -Aquacel Extra -Optilok 6.5x10 #5 RLE Cluster -Ulcer Cleansing -Foul Odor after Cleansing -Primary Dressing Applied -Other Dressing -Primary Dressing Covered/Secured with -Other Covering -Aquacel Extra -Optilok 6.5x10 BLE -Multi-Layered Wrap Application Multi-Layer Multi-Layer Comp - Bilat ($ Comp - Bilat ($ ) ) Treatment Response Procedure Tolerated Well WC - Visit Discharge Discharge Condition Stable Stable Ambulatory Status Ambulatory Ambulatory Transportation Private Auto Private Auto Medication Reconcilliation completed & No provided to patient/care provider Clinical Summary of Care Provided Yes 09/17/23 09/20/23 09/24/23 13:25 15:41 13:32 Vital Signs Temperature (97.8 F-99.1 F) 98 F Temperature Source Temporal Pulse Rate (60-100) 78 Pulse Location Respiratory Rate (12-18) 20 H 20 H Respiratory rate source Observation Observation Blood Pressure (90/60-120/80) 117/49 L Blood Pressure Mean (mm Hg) 71 Source Monitor Pain Scale: 0-10 Numeric Is Patient Pain Free? Yes Yes Yes Wound Care Center Nurse 3 #4 Left anterior -Ulcer Cleansing Not Cleansed -Foul Odor after Cleansing No -Primary Dressing Applied Aquacel Extra, Optilok 6.5x10 -Primary Dressing Covered/Secured with Dry Gauze & Roll Gauze -Aquacel Extra 1 -Optilok 6.5x10 1 -Optilok 8x12 #3 R POST LE -Ulcer Cleansing Soap and Water -Foul Odor after Cleansing No -Primary Dressing Applied Optilok 6.5x10 -Primary Dressing Covered/Secured with Dry Gauze & Roll Gauze -Optilok 6.5x10 1 #2 L LAT CLUSTER -Ulcer Cleansing Soap and Water -Foul Odor after Cleansing No -Primary Dressing Applied -Other Dressing aquacel ex/ superabsorber -Primary Dressing Covered/Secured with Dry Gauze & Roll Gauze, Secured with Tape -Optilok 6.5x10 #1 R ANT ANKLE -Ulcer Cleansing Soap and Water -Foul Odor after Cleansing No -Primary Dressing Applied -Other Dressing aquacel ex, superabsorber -Primary Dressing Covered/Secured with Dry Gauze & Roll Gauze, Secured with Tape -Aquacel Extra -Optilok 8x12 #7 Right medial leg -Ulcer Cleansing -Foul Odor after Cleansing -Primary Dressing Applied -Primary Dressing Covered/Secured with -Aquacel Extra #6 LLE Cluster -Ulcer Cleansing Soap and Water Soap and Water -Foul Odor after Cleansing No No -Primary Dressing Applied Aquacel Extra, Aquacel Extra, Optilok 6.5x10 Optilok 6.5x10 -Primary Dressing Covered/Secured with Dry Gauze & Dry Gauze & Roll Gauze, Roll Gauze, Secured with Secured with Tape Tape -Other Covering ABD -Aquacel Extra 1 1 -Optilok 6.5x10 1 1 #5 RLE Cluster -Ulcer Cleansing Soap and Water Soap and Water -Foul Odor after Cleansing No No -Primary Dressing Applied Aquacel Extra, Aquacel Extra Optilok 6.5x10 -Other Dressing -Primary Dressing Covered/Secured with Dry Gauze & Dry Gauze & Roll Gauze Roll Gauze, Secured with Tape -Other Covering ABD -Aquacel Extra 1 1 -Optilok 6.5x10 2 BLE -Multi-Layered Wrap Application Multi-Layer Multi-Layer Multi-Layer Comp - Bilat ($ Comp - Bilat ($ Comp - Bilat ($ ) ) ) Treatment Response Procedure Procedure Procedure Tolerated Well Tolerated Well Tolerated Well WC - Visit Discharge Discharge Condition Stable Stable Stable Ambulatory Status Ambulatory Ambulatory Ambulatory Transportation Private Auto Private Auto Private Auto Medication Reconcilliation completed & provided to patient/care provider Clinical Summary of Care Provided 09/27/23 14:54 Vital Signs Temperature (97.8 F-99.1 F) Temperature Source Pulse Rate (60-100) Pulse Location Respiratory Rate (12-18) Respiratory rate source Blood Pressure (90/60-120/80) Blood Pressure Mean (mm Hg) Source Pain Scale: 0-10 Numeric Is Patient Pain Free? Yes Wound Care Center Nurse 3 #4 Left anterior -Ulcer Cleansing -Foul Odor after Cleansing -Primary Dressing Applied -Primary Dressing Covered/Secured with -Aquacel Extra -Optilok 6.5x10 -Optilok 8x12 #3 R POST LE -Ulcer Cleansing -Foul Odor after Cleansing -Primary Dressing Applied -Primary Dressing Covered/Secured with -Optilok 6.5x10 #2 L LAT CLUSTER -Ulcer Cleansing -Foul Odor after Cleansing -Primary Dressing Applied -Other Dressing -Primary Dressing Covered/Secured with -Optilok 6.5x10 #1 R ANT ANKLE -Ulcer Cleansing -Foul Odor after Cleansing -Primary Dressing Applied -Other Dressing -Primary Dressing Covered/Secured with -Aquacel Extra -Optilok 8x12 #7 Right medial leg -Ulcer Cleansing Soap and Water -Foul Odor after Cleansing No -Primary Dressing Applied Aquacel Extra -Primary Dressing Covered/Secured with Dry Gauze & Roll Gauze, Secured with Tape -Aquacel Extra 1 #6 LLE Cluster -Ulcer Cleansing Soap and Water -Foul Odor after Cleansing No -Primary Dressing Applied Aquacel Extra -Primary Dressing Covered/Secured with Dry Gauze & Roll Gauze, Secured with Tape -Other Covering -Aquacel Extra 1 -Optilok 6.5x10 #5 RLE Cluster -Ulcer Cleansing Soap and Water -Foul Odor after Cleansing No -Primary Dressing Applied -Other Dressing aqaucel ex -Primary Dressing Covered/Secured with Dry Gauze & Roll Gauze, Secured with Tape -Other Covering -Aquacel Extra -Optilok 6.5x10 BLE -Multi-Layered Wrap Application Multi-Layer Comp - Bilat ($ ) Treatment Response Procedure Tolerated Well WC - Visit Discharge Discharge Condition Stable Ambulatory Status Ambulatory Transportation Private Auto Medication Reconcilliation completed & provided to patient/care provider Clinical Summary of Care Provided Assessment/Plan Assessment/Plan (1) Lymphedema: CODE(S): I89.0 - Lymphedema, not elsewhere classified (2) Lymphorrhea: CODE(S): I89.8 - Other specified noninfective disorders of lymphatic vessels and lymph nodes (3) Ulcer of right lower extremity, limited to breakdown of skin: CODE(S): L97.911 - Non-pressure chronic ulcer of unspecified part of right lower leg limited to breakdown of skin (4) Ulcer of left lower extremity, limited to breakdown of skin: CODE(S): L97.921 - Non-pressure chronic ulcer of unspecified part of left lower leg limited to breakdown of skin PLAN: Plan We will continue with Aquacel extra to the open areas followed by ABD/super absorbers, kerlix, and then 3M wraps for compression with super absorbers between the layers. I emphasized the importance of elevating his legs at all times of rest and frequently throughout the day. He is encouraged to perform ankle flexion exercises. He is counseled to avoid prolonged periods of idle sitting/standing. All necessary notes and measurements have been submitted to insurance for hopeful approval for lymphedema pumps. Hopefully he will here from [facility] soon. There are signs of infection on exam today. With October 03 next , I will see him back on 10/10. He will return for nurse visits for dressing changes on 09/30 or 10/01, 10/04, and 10/07 or 10/08.
== END 2023-09-30 23:59 | disposition home or self-care (01) ==
LOC: WC 13:15
PROVIDERS: PCP Student in an Organized Health Care Education/Training Program; Referring Provider Physician Assistant; Visit Provider Physician Assistant
DX: E10.622 Type 1 diabetes mellitus with other skin ulcer (principal); I12.0 Hypertensive chronic kidney disease with stage 5 chronic kidney disease or end stage renal disease; N18.6 End stage renal disease; L97.811 Non-pressure chronic ulcer of other part of right lower leg limited to breakdown of skin; L97.821 Non-pressure chronic ulcer of other part of left lower leg limited to breakdown of skin; E10.59 Type 1 diabetes mellitus with other circulatory complications; E10.40 Type 1 diabetes mellitus with diabetic neuropathy, unspecified; E10.22 Type 1 diabetes mellitus with diabetic chronic kidney disease; I87.2 Venous insufficiency (chronic) (peripheral); R60.0 Localized edema; F17.200 Nicotine dependence, unspecified, uncomplicated; I25.10 Atherosclerotic heart disease of native coronary artery without angina pectoris; Z99.2 Dependence on renal dialysis; I89.0 Lymphedema, not elsewhere classified
CPT/HCPCS: 29581; 99213; G0463

== ENCOUNTER 2023-10-25 13:45 | Outpatient (RCR) | payer MEDICARE, MEDICAID, OTHER, SELFPAY ==
[2023-10-01 00:47] VITALS: BP 181/75; PULSE 70; RESP 18; TEMP 36.9; BMI 40.2
[2023-10-01 10:15] VITALS: BP 139/61; PULSE 78; RESP 20; TEMP 36.6; BMI 40.2
[2023-10-05 10:19] VITALS: BP 125/68; PULSE 75; RESP 18; TEMP 36.5; BMI 40.2
[2023-10-08 14:29] VITALS: BP 113/52; PULSE 73; RESP 18; TEMP 36.8; BMI 40.2
[2023-10-11 14:16] VITALS: BP 147/66; PULSE 69; RESP 18; TEMP 36.6; BMI 40.2
--- NOTE | 2023-10-12 07:30 | PCM.WC.PN ---
History of Present Illness Date of Service: 10/11/23 Chief Complaint: Bilateral lower extremity edema with weeping History of Wound: Mr. John Nickerson is a pleasant 62 y/o gentleman who presents today for management of his lower extremity edema with weeping and superficial skin breakdown. He is well known to me from the vascular surgery office. He has a several year-long history of lower extremity edema which has progressively worsened over the last 1-2 years. He also has associated chronic skin changes including hyperpigmentation, blistering, weeping. He also has associated discomfort including leg heaviness. The edema does significantly limit his quality of life as he is not able to actively participate in activities he used to really enjoy such as long walks, golfing, etc. Just basic mobility is made more difficult by his edema. Unfortunately, over the last couple of weeks he has had significant fluid blisters develop which has formed superficial wounds upon rupture. He has significant associated weeping. He has been trying to manage at home with gauze wrap and TERESITA bandage wraps without much improvement. He did have a vascular workup including venous reflux study which showed limited focal reflux insufficient to explain his severity of his bilateral symptoms and a venogram which was negative for any central venous compression. He does have significant past medical history. He is a type 1 diabetic. Overall, fair control at this time by his report. He did have ESRD and was dialysis dependent for a period prior to receiving a renal transplant. He has CAD s/p PCI, HTN, neuropathy. He is a smoker. Subjective Subjective Patient has been doing very well over the last two weeks. He received his lymphedema pumps and has been using them twice daily as directed. He has been wearing tubigrips as directed. He has had significant improvement in his lower extremity edema and the majority of his lower extremity wounds have healed. He has two very small, very superficial areas which remain open on his RLE. Objective Data Objective Data Vital Signs: Vital Signs Temp Pulse Resp BP O2 Del Method 97.8 F 69 18 147/66 H Room Air 10/11/23 14:16 10/11/23 14:16 10/11/23 14:16 10/11/23 14:16 10/08/23 14:29 Oxygen Delivery Method Room Air Weight: 280 lb 4.709 oz Body Mass Index (BMI) 40.2 Charges/Coding Visit Charges Office Visits / Consults: 66407 OV L3 Est 20min Physical Exam Const alert, oriented x3 and no apparent distress General Appearance: cooperative and comfortable HEENT normocephalic, head/scalp atraumatic, hearing grossly normal bilaterally and external ears normal Head and Scalp: normal to inspection and normocephalic Eyes EOMs intact bilaterally General Eye: normal appearance of both eyes Neck General: normal visual inspection and trachea midline Resp normal respiratory effort, no retractions and no use of accessory muscles Effort and Inspection: able to speak in complete sentences Cardio regular rate and regular rhythm Extremity Extremity Narrative: Significant bilateral lower extremity edema: (08/22) R Calf 50.5 cm, R ankle 30.7 cm --> (08/29) R Calf 49.5 cm, R ankle 31 cm --> (09/12) R Calf 47 cm, R ankle 31 cm --> (09/19) R calf 46.5 cm, R ankle 32 cm --> (10/10) R calf 41.5 cm, R ankle 27.2 cm (08/22) L Calf 47 cm, L ankle 31 cm --> (08/29) L Calf 49.5 cm, L ankle 30.7 cm --> (09/12) L Calf 47 cm, L ankle 29.5 cm --> (09/19) L calf 45 cm, L ankle 30 cm --> (10/10) R calf 39.5 cm, L ankle 30 cm Skin Skin Narrative: Hyperpigmentation and lipodermatosclerosis noted bilaterally Wounds: wounds noted Wound Narrative: LLE wounds have healed. There are two very small superficial open areas remaining on the R castellanos/calf. No signs of infection. All other wounds on the RLE have healed. Neuro oriented x3, CN's II-XII intact bilaterally, moves all extremities and no focal motor deficits Psych mental status grossly normal Appearance: grossly normal Attitude: calm and engaged Activity / Motor Behavior: appropriate eye contact Speech: normal speech Mood & Affect: euthymic mood Judgement: judgement good Debridement Note Debridement Note No debridement was completed: No debridement was completed today Post-Debridement Measurements and Additional Note: Post-Debridement Measurements/Treatment MORENA - Nurse 1 - General Ulcer Assessment Start: 10/01/23 10:12 Freq: Status: Active Protocol: LAITH Activity Type Activity Date Activity User E-sign Co-sign Detail Recorded Client Recorded Date Recorded By Document 10/01/23 10:15 DL [email or web address] 10/01/23 10:26 DL Document 10/05/23 10:19 JF `wound 10/05/23 10:21 JF Document 10/08/23 14:29 KW h 10/08/23 14:42 KW Document 10/11/23 14:16 DL [email or web address] 10/11/23 14:27 DL 10/01/23 10/05/23 10/08/23 10:15 10:19 14:29 WC - Today's Visit Information Type of service Nurse-only Nurse-only Nurse-only Visit Visit Visit Arrival Mode Ambulatory Ambulatory Ambulatory Transfer Assistance None Patient Identification Verified (Name & Yes Yes Yes ) Patient Requires Transmission-Based No No Precautions Finger Stick Blood Sugar(mg/dl) (if 132 indicated): Blood Sugar Stated by Patient Height and Weight Body Mass Index (BMI) 40.2 40.2 40.2 BMI Classification Obese Obese Obese Vital Signs Temperature (97.8 F-99.1 F) 97.9 F 97.7 F L 98.2 F Temperature Source Temporal Temporal Temporal Pulse Rate (60-100) 78 75 73 Pulse Location Monitor Monitor Monitor Respiratory Rate (12-18) 20 H 18 18 Respiratory rate source Observation Observation Observation Oxygen Delivery Method Room Air Blood Pressure (90/60-120/80) 139/61 H 125/68 H 113/52 L Blood Pressure Mean (mm Hg) 87 87 72 Source Monitor Monitor Monitor Position Semi-Fowlers Semi-Fowlers Blood Pressure Location Left Arm Left Arm History Since Last Visit- (Skip if this is Patient's initial visit) Have you changed medications since your No No last visit? Any new allergies or adverse reactions No No Had a fall/change in ADL's that may No No increase risk of falls Signs or symptoms of abuse and/or No No neglect since last visit Have you been in the hospital since your No No last visit? Has dressing in place as prescribed Yes Yes Has compression in place as prescribed Yes Yes Has offloadiing in place as prescribed N/A N/A Experienced any changes in pain level or No No management Left Footwear Diabetic Shoe Regular Shoe Regular Shoe Right Footwear Diabetic Shoe Regular Shoe Regular Shoe Pain Scale: 0-10 Numeric Is Patient Pain Free? 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 ) Arrival Mode Ambulatory Transfer Assistance None Patient Identification Verified (Name & Yes ) Patient Requires Transmission-Based No Precautions Finger Stick Blood Sugar(mg/dl) (if 94 indicated): Blood Sugar Stated by Patient Height and Weight Body Mass Index (BMI) 40.2 BMI Classification Obese Vital Signs Temperature (97.8 F-99.1 F) 97.8 F Temperature Source Temporal Pulse Rate (60-100) 69 Pulse Location Monitor Respiratory Rate (12-18) 18 Respiratory rate source Observation Oxygen Delivery Method Blood Pressure (90/60-120/80) 147/66 H Blood Pressure Mean (mm Hg) 93 Source Monitor Position Blood Pressure Location History Since Last Visit- (Skip if this is Patient's initial visit) Have you changed medications since your No last visit? Any new allergies or adverse reactions No Had a fall/change in ADL's that may No increase risk of falls Signs or symptoms of abuse and/or No neglect since last visit Have you been in the hospital since your No last visit? Has dressing in place as prescribed No Has compression in place as prescribed Yes Has offloadiing in place as prescribed N/A Experienced any changes in pain level or No management Left Footwear Right Footwear Pain Scale: 0-10 Numeric Is Patient Pain Free? Yes - Nurse 1 - General Ulcer Measurement Start: 10/01/23 10:12 Freq: Status: Active Protocol: Activity Type Activity Date Activity User E-sign Co-sign Detail Recorded Client Recorded Date Recorded By Document 10/01/23 10:15 DL [email or web address] 10/01/23 10:26 DL Edit Result 10/01/23 10:15 DL (1) [email or web address] 10/01/23 10:42 DL Document 10/05/23 10:19 JF `wound 10/05/23 10:21 JF Document 10/11/23 14:16 DL [email or web address] 10/11/23 14:27 DL (1) Right Calf (cm) => 43 Right Ankle (cm) => 29.2 Left Calf (cm) => 41.2 Left Ankle (cm) => 30.4 10/01/23 10/05/23 10/11/23 10:15 10:19 14:16 Wound Center Nurse 1 #7 Right medial leg -Current Size (cm) - Length 0.1 -Current Size (cm) - Width 0.1 -Current Size (cm) - Depth 0.1 -Total Square Cm 0.01 -Exudate Amt None Present -Wound Margin Flat & Intact -Granulation Amt Large (67-100%) -Granulation Quality Point Lay -Necrosis Amt None Present (0 %) -Structure Exposed N/A -Texture (Jhoana-wound Skin Appearance) Scarring -Moisture (Jhoana-wound Skin Appearance) Dry/Scaly -Color (Jhoana-wound Skin Appearance) Hemosiderin Staining -Temperature (Jhoana-wound Skin No Abnormality Appearance) (Pt Warm) -Tenderness on Palpation (Jhoana-wound No Skin Appearance) -Ulcer Cleansing Soap and Water -Foul Odor after Cleansing No #6 LLE Cluster -Current Size (cm) - Length 0.1 -Current Size (cm) - Width 0.1 -Current Size (cm) - Depth 0.1 -Total Square Cm 0.01 -Exudate Amt None Present -Wound Margin Flat & Intact -Granulation Amt Large (67-100%) -Granulation Quality Point Lay -Necrosis Amt None Present (0 %) -Structure Exposed N/A -Texture (Jhoana-wound Skin Appearance) Scarring -Moisture (Jhoana-wound Skin Appearance) Dry/Scaly -Color (Jhoana-wound Skin Appearance) Hemosiderin Staining -Temperature (Jhoana-wound Skin No Abnormality Appearance) (Pt Warm) -Tenderness on Palpation (Jhoana-wound No Skin Appearance) -Ulcer Cleansing Soap and Water -Foul Odor after Cleansing No #5 RLE Cluster -Current Size (cm) - Length 0.1 -Current Size (cm) - Width 0.1 -Current Size (cm) - Depth 0.1 -Total Square Cm 0.01 -Exudate Amt None Present -Wound Margin Flat & Intact -Granulation Amt Large (67-100%) -Granulation Quality Point Lay -Necrosis Amt None Present (0 %) -Structure Exposed N/A -Texture (Jhoana-wound Skin Appearance) Scarring -Moisture (Jhoana-wound Skin Appearance) Dry/Scaly -Color (Jhoana-wound Skin Appearance) Hemosiderin Staining -Temperature (Jhoana-wound Skin No Abnormality Appearance) (Pt Warm) -Ulcer Cleansing Soap and Water -Foul Odor after Cleansing No Lower Limb Edema Present Yes Yes Right Calf (cm) 43 42.5 41.5 Right Ankle (cm) 29.2 28 27.2 Point of Measurement (cm from the distal 39.5 point) Left Calf (cm) 41.2 41.5 Point of measurement (cm from the medial 30 instep) Left Ankle (cm) 30.4 29.8 WC - Nurse 2 - General Ulcer CM Notes Start: 10/01/23 10:12 Freq: Status: Active Protocol: Activity Type Activity Date Activity User E-sign Co-sign Detail Recorded Client Recorded Date Recorded By Document 10/11/23 14:37 GM 10/11/23 14:39 10/11/23 14:37 Wound Center Nurse 2 #7 Right medial leg -Time 14:38 -Correct Patient Yes -Correct Side, Site, Position Yes -Wound/Ulcer Outcome Healed- Epithelialized #6 LLE Cluster -Time 14:38 -Correct Patient Yes -Correct Side, Site, Position Yes -Wound/Ulcer Outcome Healed- Epithelialized Pain Scale: 0-10 Numeric Is Patient Pain Free? Yes - Nurse 3 - General Ulcer D/C NN Start: 10/01/23 10:12 Freq: Status: Active Protocol: Activity Type Activity Date Activity User E-sign Co-sign Detail Recorded Client Recorded Date Recorded By Document 10/01/23 10:15 DL [email or web address] 10/01/23 10:26 DL Document 10/05/23 10:19 JF `wound 10/05/23 10:21 JF Document 10/08/23 14:29 KW h 10/08/23 14:42 KW Document 10/11/23 14:54 DL [email or web address] 10/11/23 14:55 DL 10/01/23 10/05/23 10/08/23 10:15 10:19 14:29 Vital Signs Temperature (97.8 F-99.1 F) 97.9 F 97.7 F L 98.2 F Temperature Source Temporal Temporal Temporal Pulse Rate (60-100) 78 75 73 Pulse Location Monitor Monitor Monitor Respiratory Rate (12-18) 20 H 18 18 Respiratory rate source Observation Observation Observation Oxygen Delivery Method Room Air Blood Pressure (90/60-120/80) 139/61 H 125/68 H 113/52 L Blood Pressure Mean (mm Hg) 87 87 72 Source Monitor Monitor Monitor Position Semi-Fowlers Semi-Fowlers Blood Pressure Location Left Arm Left Arm Pain Scale: 0-10 Numeric Is Patient Pain Free? Yes Yes Yes Wound Care Center Nurse 3 #7 Right medial leg -Ulcer Cleansing Soap and Water Wound Cleanser Soap and Water -Foul Odor after Cleansing No -Primary Dressing Applied Aquacel Extra Aquacel Extra Aquacel Extra -Other Dressing abd; kerlix -Primary Dressing Covered/Secured with Dry Gauze & Dry Gauze & Roll Gauze, Roll Gauze, Secured with Secured with Tape Tape -Aquacel Extra 1 1 1 #6 LLE Cluster -Ulcer Cleansing Soap and Water Wound Cleanser -Foul Odor after Cleansing No No -Primary Dressing Applied Aquacel Extra Aquacel Extra -Other Dressing abd, kerlix aquacel extra -Primary Dressing Covered/Secured with Dry Gauze & Dry Gauze & Roll Gauze, Roll Gauze, Secured with Secured with Tape Tape -Aquacel Extra 1 0 #5 RLE Cluster -Ulcer Cleansing Soap and Water Wound Cleanser -Foul Odor after Cleansing No No -Primary Dressing Applied Aquacel Extra Aquacel Extra -Other Dressing abd, kerlix aquacel extra -Primary Dressing Covered/Secured with Dry Gauze & Dry Gauze & Roll Gauze, Roll Gauze, Secured with Secured with Tape Tape -Aquacel Extra 0 0 -Mepilex Border BLE -Multi-Layered Wrap Application Multi-Layer Multi-Layer Multi-Layer Comp - Bilat ($ Comp - Bilat ($ Comp - Bilat ($ ) ) ) -Tubular Bandage -Size of Tubigrip Used -Size D ($) Treatment Response Procedure Tolerated Well WC - Visit Discharge Discharge Condition Stable Stable Stable Ambulatory Status Ambulatory Ambulatory Ambulatory Transportation Private Auto Private Auto Private Auto Medication Reconcilliation completed & Yes No provided to patient/care provider Clinical Summary of Care Provided Yes Yes 10/11/23 14:54 Vital Signs Temperature (97.8 F-99.1 F) Temperature Source Pulse Rate (60-100) Pulse Location Respiratory Rate (12-18) Respiratory rate source Oxygen Delivery Method Blood Pressure (90/60-120/80) Blood Pressure Mean (mm Hg) Source Position Blood Pressure Location Pain Scale: 0-10 Numeric Is Patient Pain Free? Yes Wound Care Center Nurse 3 #7 Right medial leg -Ulcer Cleansing -Foul Odor after Cleansing -Primary Dressing Applied -Other Dressing -Primary Dressing Covered/Secured with -Aquacel Extra #6 LLE Cluster -Ulcer Cleansing -Foul Odor after Cleansing -Primary Dressing Applied -Other Dressing -Primary Dressing Covered/Secured with -Aquacel Extra #5 RLE Cluster -Ulcer Cleansing Rinsed/ Irrigated with Saline -Foul Odor after Cleansing -Primary Dressing Applied Mepilex Border -Other Dressing nugel -Primary Dressing Covered/Secured with -Aquacel Extra -Mepilex Border 1 BLE -Multi-Layered Wrap Application -Tubular Bandage Single Layer -Size of Tubigrip Used Size D -Size D ($) 1 Treatment Response Procedure Tolerated Well WC - Visit Discharge Discharge Condition Stable Ambulatory Status Ambulatory Transportation Private Auto Medication Reconcilliation completed & provided to patient/care provider Clinical Summary of Care Provided Assessment/Plan Assessment/Plan (1) Lymphedema: CODE(S): I89.0 - Lymphedema, not elsewhere classified (2) Lymphorrhea: CODE(S): I89.8 - Other specified noninfective disorders of lymphatic vessels and lymph nodes (3) Ulcer of right lower extremity, limited to breakdown of skin: CODE(S): L97.911 - Non-pressure chronic ulcer of unspecified part of right lower leg limited to breakdown of skin (4) Ulcer of left lower extremity, limited to breakdown of skin: CODE(S): L97.921 - Non-pressure chronic ulcer of unspecified part of left lower leg limited to breakdown of skin PLAN: Plan Keep two small remaining open areas covered either with dry gauze dressing or foam border dressing. Change daily or more often as needed to manage any drainage. Today, provided him with a prescription to be measured for new 20-30mmHg knee-high compression stockings. His lower leg edema has made significant improvement over the last week and his legs are smaller than they have been in years so he will need to obtain these new stockings to maintain these results. In the meantime, have provided him with Tubigrips to continue to wear daily until he recieves his new stockings. He is encouraged to continue with consistent use of the lymphedema pumps. He is also encouraged to continue with leg elevation and regular exercise. He will return in 2-3 weeks for a wound check.
[2023-10-25 14:00] VITALS: BP 140/70; PULSE 72; RESP 18; TEMP 36.3; BMI 40.2
--- NOTE | 2023-10-25 16:25 | PN.PCM_ITS ---
History of Present Illness Date of Service: 10/25/23 Chief Complaint: Bilateral lower extremity edema with weeping History of Wound: Mr. John Nickerson is a pleasant 62 y/o gentleman who presents today for management of his lower extremity edema with weeping and superficial skin breakdown. He is well known to me from the vascular surgery office. He has a several year-long history of lower extremity edema which has progressively worsened over the last 1-2 years. He also has associated chronic skin changes including hyperpigmentation, blistering, weeping. He also has associated discomfort including leg heaviness. The edema does significantly limit his quality of life as he is not able to actively participate in activities he used to really enjoy such as long walks, golfing, etc. Just basic mobility is made more difficult by his edema. Unfortunately, over the last couple of weeks he has had significant fluid blisters develop which has formed superficial wounds upon rupture. He has significant associated weeping. He has been trying to manage at home with gauze wrap and TERESITA bandage wraps without much improvement. He did have a vascular workup including venous reflux study which showed limited focal reflux insufficient to explain his severity of his bilateral symptoms and a venogram which was negative for any central venous compression. He does have significant past medical history. He is a type 1 diabetic. Overall, fair control at this time by his report. He did have ESRD and was dialysis dependent for a period prior to receiving a renal transplant. He has CAD s/p PCI, HTN, neuropathy. He is a smoker. Subjective Subjective Mr. Nickerson returns today for a wound check. At last appointment, his wounds had healed. He has been using lymphedema pumps as instructed. He obtained measured compression stockings and has been wearing these daily as instructed. His edema is greatly improved from his initial visit here and he is maintaining good control with these measures in place. He has not had any recurrent blisters/wounds over the last few weeks. He is pleased with these results. Objective Data Objective Data Vital Signs: Vital Signs Temp Pulse Resp BP O2 Del Method 97.4 F L 72 18 140/70 H Room Air 10/25/23 14:00 10/25/23 14:00 10/25/23 14:00 10/25/23 14:00 10/25/23 14:00 Oxygen Delivery Method Room Air Weight: 280 lb 4.709 oz Body Mass Index (BMI) 40.2 Charges/Coding Visit Charges Office Visits / Consults: 06320 OV L3 Est 20min Physical Exam Const alert, oriented x3 and no apparent distress General Appearance: cooperative and comfortable HEENT normocephalic, head/scalp atraumatic, hearing grossly normal bilaterally and external ears normal Head and Scalp: normal to inspection and normocephalic Eyes EOMs intact bilaterally General Eye: normal appearance of both eyes Neck General: normal visual inspection and trachea midline Resp normal respiratory effort, no retractions and no use of accessory muscles Effort and Inspection: able to speak in complete sentences Cardio regular rate and regular rhythm Extremity Extremity Narrative: He has BLE edema but overall improved and well-managed at this time. Skin no wounds Skin Narrative: Hyperpigmentation and lipodermatosclerosis noted bilaterally Neuro oriented x3, CN's II-XII intact bilaterally, moves all extremities and no focal motor deficits Psych mental status grossly normal Appearance: grossly normal Attitude: calm and engaged Activity / Motor Behavior: appropriate eye contact Speech: normal speech Mood & Affect: euthymic mood Judgement: judgement good Debridement Note Debridement Note Post-Debridement Measurements and Additional Note: Post-Debridement Measurements/Treatment - Nurse 1 - General Ulcer Assessment Start: 10/01/23 10:12 Freq: Status: Active Protocol: LAITH Activity Type Activity Date Activity User E-sign Co-sign Detail Recorded Client Recorded Date Recorded By Document 10/01/23 10:15 DL [email or web address] 10/01/23 10:26 DL Document 10/05/23 10:19 JF `wound 10/05/23 10:21 JF Document 10/08/23 14:29 KW h 10/08/23 14:42 KW Document 10/11/23 14:16 DL [email or web address] 10/11/23 14:27 DL Document 10/25/23 14:00 KW l 10/25/23 14:08 KW 10/01/23 10/05/23 10/08/23 10:15 10:19 14:29 - Today's Visit Information Type of service Nurse-only Nurse-only Nurse-only Visit Visit Visit Arrival Mode Ambulatory Ambulatory Ambulatory Transfer Assistance None Patient Identification Verified (Name & Yes Yes Yes ) Patient Requires Transmission-Based No No Precautions Finger Stick Blood Sugar(mg/dl) (if 132 indicated): Blood Sugar Stated by Patient Height and Weight Body Mass Index (BMI) 40.2 40.2 40.2 BMI Classification Obese Obese Obese Vital Signs Temperature (97.8 F-99.1 F) 97.9 F 97.7 F L 98.2 F Temperature Source Temporal Temporal Temporal Pulse Rate (60-100) 78 75 73 Pulse Location Monitor Monitor Monitor Respiratory Rate (12-18) 20 H 18 18 Respiratory rate source Observation Observation Observation Oxygen Delivery Method Room Air Blood Pressure (90/60-120/80) 139/61 H 125/68 H 113/52 L Blood Pressure Mean (mm Hg) 87 87 72 Source Monitor Monitor Monitor Position Semi-Fowlers Semi-Fowlers Blood Pressure Location Left Arm Left Arm History Since Last Visit- (Skip if this is Patient's initial visit) Have you changed medications since your No No last visit? Any new allergies or adverse reactions No No Had a fall/change in ADL's that may No No increase risk of falls Signs or symptoms of abuse and/or No No neglect since last visit Have you been in the hospital since your No No last visit? Has dressing in place as prescribed Yes Yes Has compression in place as prescribed Yes Yes Has offloadiing in place as prescribed N/A N/A Experienced any changes in pain level or No No management Left Footwear Diabetic Shoe Regular Shoe Regular Shoe Right Footwear Diabetic Shoe Regular Shoe Regular Shoe Pain Scale: 0-10 Numeric Is Patient Pain Free? Yes Yes Yes 10/11/23 10/25/23 14:16 14:00 - Today's Visit Information Type of service Follow-up Visit Follow-up Visit (Physician/OPERATING SYSTEMS PROGRAMMER (Physician/OPERATING SYSTEMS PROGRAMMER ) ) Arrival Mode Ambulatory Ambulatory Transfer Assistance None Patient Identification Verified (Name & Yes Yes ) Patient Requires Transmission-Based No Precautions Finger Stick Blood Sugar(mg/dl) (if 94 indicated): Blood Sugar Stated by Patient Height and Weight Body Mass Index (BMI) 40.2 40.2 BMI Classification Obese Obese Vital Signs Temperature (97.8 F-99.1 F) 97.8 F 97.4 F L Temperature Source Temporal Temporal Pulse Rate (60-100) 69 72 Pulse Location Monitor Monitor Respiratory Rate (12-18) 18 18 Respiratory rate source Observation Monitor Oxygen Delivery Method Room Air Blood Pressure (90/60-120/80) 147/66 H 140/70 H Blood Pressure Mean (mm Hg) 93 93 Source Monitor Monitor Position Semi-Fowlers Blood Pressure Location Left Arm History Since Last Visit- (Skip if this is Patient's initial visit) Have you changed medications since your No No last visit? Any new allergies or adverse reactions No No Had a fall/change in ADL's that may No No increase risk of falls Signs or symptoms of abuse and/or No No neglect since last visit Have you been in the hospital since your No No last visit? Has dressing in place as prescribed No Yes Has compression in place as prescribed Yes Yes Has offloadiing in place as prescribed N/A N/A Experienced any changes in pain level or No No management Left Footwear Regular Shoe Right Footwear Regular Shoe Pain Scale: 0-10 Numeric Is Patient Pain Free? Yes Yes WC - Nurse 1 - General Ulcer Measurement Start: 10/01/23 10:12 Freq: Status: Active Protocol: Activity Type Activity Date Activity User E-sign Co-sign Detail Recorded Client Recorded Date Recorded By Document 10/01/23 10:15 DL [email or web address] 10/01/23 10:26 DL Edit Result 10/01/23 10:15 DL (1) [email or web address] 10/01/23 10:42 DL Document 10/05/23 10:19 JF `wound 10/05/23 10:21 JF Document 10/11/23 14:16 DL [email or web address] 10/11/23 14:27 DL Document 10/25/23 14:00 KW l 10/25/23 14:08 KW (1) Right Calf (cm) => 43 Right Ankle (cm) => 29.2 Left Calf (cm) => 41.2 Left Ankle (cm) => 30.4 10/01/23 10/05/23 10/11/23 10:15 10:19 14:16 Wound Center Nurse 1 #7 Right medial leg -Current Size (cm) - Length 0.1 -Current Size (cm) - Width 0.1 -Current Size (cm) - Depth 0.1 -Total Square Cm 0.01 -Exudate Amt None Present -Wound Margin Flat & Intact -Granulation Amt Large (67-100%) -Granulation Quality [place] -Necrosis Amt None Present (0 %) -Structure Exposed N/A -Texture (Jhoana-wound Skin Appearance) Scarring -Moisture (Jhoana-wound Skin Appearance) Dry/Scaly -Color (Jhoana-wound Skin Appearance) Hemosiderin Staining -Temperature (Jhoana-wound Skin No Abnormality Appearance) (Pt Warm) -Tenderness on Palpation (Jhoana-wound No Skin Appearance) -Ulcer Cleansing Soap and Water -Foul Odor after Cleansing No #6 LLE Cluster -Current Size (cm) - Length 0.1 -Current Size (cm) - Width 0.1 -Current Size (cm) - Depth 0.1 -Total Square Cm 0.01 -Exudate Amt None Present -Wound Margin Flat & Intact -Granulation Amt Large (67-100%) -Granulation Quality [place] -Necrosis Amt None Present (0 %) -Structure Exposed N/A -Texture (Jhoana-wound Skin Appearance) Scarring -Moisture (Jhoana-wound Skin Appearance) Dry/Scaly -Color (Jhoana-wound Skin Appearance) Hemosiderin Staining -Temperature (Jhoana-wound Skin No Abnormality Appearance) (Pt Warm) -Tenderness on Palpation (Jhoana-wound No Skin Appearance) -Ulcer Cleansing Soap and Water -Foul Odor after Cleansing No #5 RLE Cluster -Current Size (cm) - Length 0.1 -Current Size (cm) - Width 0.1 -Current Size (cm) - Depth 0.1 -Total Square Cm 0.01 -Date of Last Picture (Recall this field) -Epithelialization -Exudate Amt None Present -Wound Margin Flat & Intact -Granulation Amt Large (67-100%) -Granulation Quality [place] -Necrosis Amt None Present (0 %) -Structure Exposed N/A -Texture (Jhoana-wound Skin Appearance) Scarring -Moisture (Jhoana-wound Skin Appearance) Dry/Scaly -Color (Jhoana-wound Skin Appearance) Hemosiderin Staining -Temperature (Jhoana-wound Skin No Abnormality Appearance) (Pt Warm) -Tenderness on Palpation (Jhoana-wound Skin Appearance) -Ulcer Cleansing Soap and Water -Foul Odor after Cleansing No -Wound Comment(s) Lower Limb Edema Present Yes Yes Right Calf (cm) 43 42.5 41.5 Right Ankle (cm) 29.2 28 27.2 Point of Measurement (cm from the distal 39.5 point) Left Calf (cm) 41.2 41.5 Point of measurement (cm from the medial 30 instep) Left Ankle (cm) 30.4 29.8 10/25/23 14:00 Wound Center Nurse 1 #7 Right medial leg -Current Size (cm) - Length -Current Size (cm) - Width -Current Size (cm) - Depth -Total Square Cm -Exudate Amt -Wound Margin -Granulation Amt -Granulation Quality -Necrosis Amt -Structure Exposed -Texture (Jhoana-wound Skin Appearance) -Moisture (Jhoana-wound Skin Appearance) -Color (Jhoana-wound Skin Appearance) -Temperature (Jhoana-wound Skin Appearance) -Tenderness on Palpation (Jhoana-wound Skin Appearance) -Ulcer Cleansing -Foul Odor after Cleansing #6 LLE Cluster -Current Size (cm) - Length -Current Size (cm) - Width -Current Size (cm) - Depth -Total Square Cm -Exudate Amt -Wound Margin -Granulation Amt -Granulation Quality -Necrosis Amt -Structure Exposed -Texture (Jhoana-wound Skin Appearance) -Moisture (Jhoana-wound Skin Appearance) -Color (Jhoana-wound Skin Appearance) -Temperature (Jhoana-wound Skin Appearance) -Tenderness on Palpation (Jhoana-wound Skin Appearance) -Ulcer Cleansing -Foul Odor after Cleansing #5 RLE Cluster -Current Size (cm) - Length 0 -Current Size (cm) - Width 0 -Current Size (cm) - Depth 0 -Total Square Cm 0 -Date of Last Picture (Recall this 10/25/23 field) -Epithelialization Large 67-100% -Exudate Amt -Wound Margin -Granulation Amt -Granulation Quality -Necrosis Amt -Structure Exposed -Texture (Jhoana-wound Skin Appearance) Assessed -Moisture (Jhoana-wound Skin Appearance) Assessed -Color (Jhoana-wound Skin Appearance) Assessed -Temperature (Jhoana-wound Skin No Abnormality Appearance) (Pt Warm) -Tenderness on Palpation (Jhoana-wound No Skin Appearance) -Ulcer Cleansing Rinsed/ Irrigated with Saline -Foul Odor after Cleansing -Wound Comment(s) LOTION APPLIED, APPEARS HEALED Lower Limb Edema Present Right Calf (cm) 46.2 Right Ankle (cm) 30.5 Point of Measurement (cm from the distal point) Left Calf (cm) 46.2 Point of measurement (cm from the medial instep) Left Ankle (cm) 29.7 WC - Nurse 2 - General Ulcer CM Notes Start: 10/01/23 10:12 Freq: Status: Active Protocol: Activity Type Activity Date Activity User E-sign Co-sign Detail Recorded Client Recorded Date Recorded By Document 10/11/23 14:37 [facility] 10/11/23 14:39 Document 10/25/23 14:14 BM 10..25.7 10/25/23 14:16 BMF 10/11/23 10/25/23 14:37 14:14 Wound Center Nurse 2 #7 Right medial leg -Time 14:38 -Correct Patient Yes -Correct Side, Site, Position Yes -Wound/Ulcer Outcome Healed- Epithelialized #6 LLE Cluster -Time 14:38 -Correct Patient Yes -Correct Side, Site, Position Yes -Wound/Ulcer Outcome Healed- Epithelialized #5 RLE Cluster -Post Debridement (cm) - Length 0 -Post Debridement (cm) - Width 0 -Post Debridement (cm) - Depth 0 -Total Square (Post) (cm) 0 -Area of Debridement (cm) - Length 0 -Area of Debridement (cm) - Width 0 -Total Square (Area) (cm) 0 -Wound/Ulcer Outcome Healed- Epithelialized -Bleeding Controlled with NA Pain Scale: 0-10 Numeric Is Patient Pain Free? Yes Yes - Nurse 3 - General Ulcer D/C NN Start: 10/01/23 10:12 Freq: Status: Active Protocol: Activity Type Activity Date Activity User E-sign Co-sign Detail Recorded Client Recorded Date Recorded By Document 10/01/23 10:15 DL 10..25.7 10/01/23 10:26 DL Document 10/05/23 10:19 JF `wound 10/05/23 10:21 JF Document 10/08/23 14:29 KW h 10/08/23 14:42 KW Document 10/11/23 14:54 DL [email or web address] 10/11/23 14:55 DL Document 10/25/23 14:33 DL [email or web address] 10/25/23 14:34 DL 10/01/23 10/05/23 10/08/23 10:15 10:19 14:29 Vital Signs Temperature (97.8 F-99.1 F) 97.9 F 97.7 F L 98.2 F Temperature Source Temporal Temporal Temporal Pulse Rate (60-100) 78 75 73 Pulse Location Monitor Monitor Monitor Respiratory Rate (12-18) 20 H 18 18 Respiratory rate source Observation Observation Observation Oxygen Delivery Method Room Air Blood Pressure (90/60-120/80) 139/61 H 125/68 H 113/52 L Blood Pressure Mean (mm Hg) 87 87 72 Source Monitor Monitor Monitor Position Semi-Fowlers Semi-Fowlers Blood Pressure Location Left Arm Left Arm Pain Scale: 0-10 Numeric Is Patient Pain Free? Yes Yes Yes Wound Care Center Nurse 3 #7 Right medial leg -Ulcer Cleansing Soap and Water Wound Cleanser Soap and Water -Foul Odor after Cleansing No -Primary Dressing Applied Aquacel Extra Aquacel Extra Aquacel Extra -Other Dressing abd; kerlix -Primary Dressing Covered/Secured with Dry Gauze & Dry Gauze & Roll Gauze, Roll Gauze, Secured with Secured with Tape Tape -Aquacel Extra 1 1 1 #6 LLE Cluster -Ulcer Cleansing Soap and Water Wound Cleanser -Foul Odor after Cleansing No No -Primary Dressing Applied Aquacel Extra Aquacel Extra -Other Dressing abd, kerlix aquacel extra -Primary Dressing Covered/Secured with Dry Gauze & Dry Gauze & Roll Gauze, Roll Gauze, Secured with Secured with Tape Tape -Aquacel Extra 1 0 #5 RLE Cluster -Ulcer Cleansing Soap and Water Wound Cleanser -Foul Odor after Cleansing No No -Primary Dressing Applied Aquacel Extra Aquacel Extra -Other Dressing abd, kerlix aquacel extra -Primary Dressing Covered/Secured with Dry Gauze & Dry Gauze & Roll Gauze, Roll Gauze, Secured with Secured with Tape Tape -Aquacel Extra 0 0 -Mepilex Border BLE -Multi-Layered Wrap Application Multi-Layer Multi-Layer Multi-Layer Comp - Bilat ($ Comp - Bilat ($ Comp - Bilat ($ ) ) ) -Tubular Bandage -Size of Tubigrip Used -Size D ($) -Stockings Treatment Response Procedure Tolerated Well WC - Visit Discharge Discharge Condition Stable Stable Stable Ambulatory Status Ambulatory Ambulatory Ambulatory Transportation Private Auto Private Auto Private Auto Medication Reconcilliation completed & Yes No provided to patient/care provider Clinical Summary of Care Provided Yes Yes Notes: 10/11/23 10/25/23 14:54 14:33 Vital Signs Temperature (97.8 F-99.1 F) Temperature Source Pulse Rate (60-100) Pulse Location Respiratory Rate (12-18) Respiratory rate source Oxygen Delivery Method Blood Pressure (90/60-120/80) Blood Pressure Mean (mm Hg) Source Position Blood Pressure Location Pain Scale: 0-10 Numeric Is Patient Pain Free? Yes Yes Wound Care Center Nurse 3 #7 Right medial leg -Ulcer Cleansing -Foul Odor after Cleansing -Primary Dressing Applied -Other Dressing -Primary Dressing Covered/Secured with -Aquacel Extra #6 LLE Cluster -Ulcer Cleansing -Foul Odor after Cleansing -Primary Dressing Applied -Other Dressing -Primary Dressing Covered/Secured with -Aquacel Extra #5 RLE Cluster -Ulcer Cleansing Rinsed/ Irrigated with Saline -Foul Odor after Cleansing -Primary Dressing Applied Mepilex Border -Other Dressing nugel -Primary Dressing Covered/Secured with -Aquacel Extra -Mepilex Border 1 BLE -Multi-Layered Wrap Application -Tubular Bandage Single Layer -Size of Tubigrip Used Size D -Size D ($) 1 -Stockings Yes Treatment Response Procedure Procedure Tolerated Well Tolerated Well WC - Visit Discharge Discharge Condition Stable Stable Ambulatory Status Ambulatory Ambulatory Transportation Private Auto Private Auto Medication Reconcilliation completed & provided to patient/care provider Clinical Summary of Care Provided Notes: Healed/ discharged Assessment/Plan Assessment/Plan (1) Lymphedema: CODE(S): I89.0 - Lymphedema, not elsewhere classified PLAN: Plan All of his wounds have healed. There are no new wounds or fluid-filled blisters. His lower extremity edema is under good control and he has measured compression stockings and lymphedema pumps in place. He is encouraged to continue with consistent use of the pumps and stockings as well as adhering to a regular walking regimen and elevating his legs at rest. He has some flaky skin on his legs, I advise use of a good moisturizing lotion and/or urea-based lotion or amlactin to help with this. He is discharged from the wound healing center today. He will return as needed.
--- NOTE | 2023-11-01 11:43 | WC ---
PHOTO RLE CLUSTER 10/25/23
== END 2023-10-31 23:59 | disposition home or self-care (01) ==
LOC: WC 13:45
PROVIDERS: PCP Student in an Organized Health Care Education/Training Program; Referring Provider Physician Assistant; Visit Provider Physician Assistant
DX: I89.0 Lymphedema, not elsewhere classified (principal); I12.0 Hypertensive chronic kidney disease with stage 5 chronic kidney disease or end stage renal disease; N18.6 End stage renal disease; L97.911 Non-pressure chronic ulcer of unspecified part of right lower leg limited to breakdown of skin; L97.921 Non-pressure chronic ulcer of unspecified part of left lower leg limited to breakdown of skin; E10.22 Type 1 diabetes mellitus with diabetic chronic kidney disease; E10.59 Type 1 diabetes mellitus with other circulatory complications; E10.40 Type 1 diabetes mellitus with diabetic neuropathy, unspecified; I87.2 Venous insufficiency (chronic) (peripheral); R60.0 Localized edema; F17.200 Nicotine dependence, unspecified, uncomplicated; I25.10 Atherosclerotic heart disease of native coronary artery without angina pectoris; Z95.5 Presence of coronary angioplasty implant and graft
CPT/HCPCS: 29581; 99213; G0463

== ENCOUNTER → 2024-02-04 | Outpatient (CLI) | payer OTHER, MEDICARE, MEDICAID, SELFPAY ==
[2024-02-04 15:19] LABS: PSA,Total - Annual Screen 1.05 ng/mL (0.00-4.00)
== END | disposition home or self-care (01) ==
LOC: LAB 13:25
PROVIDERS: PCP Student in an Organized Health Care Education/Training Program; Referring Provider Urology; Visit Provider Urology
DX: Z12.5 Encounter for screening for malignant neoplasm of prostate (principal)
CPT/HCPCS: 36415; 84153; G0103

== ENCOUNTER → 2024-07-07 | Outpatient (CLI) | payer MEDICARE, MEDICAID, SELFPAY ==
--- NOTE | 2024-07-07 14:02 | ECHOD_ITS ---
Reason For Study Reason For Study: LVH Procedure This was a 2D Doppler, Color Flow transthoracic echocardiogram. Exam performed in department. Left Ventricle Normal LV size. Severe concentric left ventricular hypertrophy. Left ventricular systolic function is normal. The left ventricular ejection fraction is 70 %. Resting LV gradient 6 mmHg. Valsalva LV gradient 50 mmHg. No regional wall motion abnormalities noted. Right Ventricle Normal RV size. Normal systolic function. Atria Normal left atrium. Normal right atrium. Mitral Valve Normal mitral valve. Tricuspid Valve Normal tricuspid valve. Aortic Valve Trisinus/trileaflet aortic valve. Pulmonic Valve Normal pulmonic valve. Great Vessels Normal aortic root. The pulmonary artery is normal size. Inferior vena cava collapse with respiration. Pericardium/Pleural Small (<1.0 cm) pericardial effusion. MMode/2D Measurements & Calculations LVIDd: 4.4 cm IVSd: 1.8 cm LVOT diam: 2.0 cm LVIDs: 2.6 cm LVPWd: 1.7 cm LVOT area: 3.2 cm2 RVDd: 3.0 cm FS: 41.6 % Ao root diam: 3.6 cm LAV(MOD-bp): 50.1 ml LVAd ap4: 28.8 cm2 LAV(MOD-bp) Indexed: 24.6 ml/m2 LVLd ap4: 8.1 cm LAV(MOD-sp2): 40.6 ml EDV(MOD-sp4): 85.7 ml LAV(MOD-sp4): 57.8 ml EDV(sp4-el): 86.9 ml LVAs ap4: 13.9 cm2 LVLs ap4: 7.1 cm ESV(MOD-sp4): 23.8 ml ESV(sp4-el): 23.3 ml EF(MOD-sp4): 72.2 % EF(sp4-el): 73.2 % SV(MOD-sp4): 61.9 ml SV(sp4-el): 63.7 ml LA A4 area: 20.1 cm2 SI(MOD-sp4): 30.3 ml/m2 LA dimension(2D): 4.3 cm RA A4 area: 12.8 cm2 Time Measurements MV dec time: 0.29 sec Doppler Measurements & Calculations MV E max jose l: 115.9 cm/sec Lat Peak E' Jose L: 4.8 cm/sec Med Peak E' Jose L: 4.0 cm/sec MV A max jose l: 128.6 cm/sec E/E' lat: 23.9 E/E' med: 29.1 MV E/A: 0.90 MV V2 max: 152.6 cm/sec Ao V2 max: 150.6 cm/sec MV max P.3 mmHg MV dec slope: 405.6 cm/sec2 Ao max P.1 mmHg MV V2 mean: 96.2 cm/sec Ao V2 mean: 94.1 cm/sec MV mean P.1 mmHg Ao mean P.3 mmHg MV V2 VTI: 43.6 cm Ao V2 VTI: 30.2 cm AV (velocity ratio): 1.2 MVA(VTI): 2.7 cm2 JOSIANE(I,D): 3.9 cm2 JOSIANE(V,D): 3.0 cm2 LV V1 max: 143.9 cm/sec SV(LVOT): 117.0 ml PA V2 max: 100.5 cm/sec LV V1 max P.3 mmHg PA V2 mean: 71.2 cm/sec LV V1 mean P.2 mmHg LV V1 mean: 107.1 cm/sec LV V1 VTI: 37.0 cm ECHO/Echo Complete Interpretation Summary Normal LV size. Severe concentric left ventricular hypertrophy. Left ventricular systolic function is normal. The left ventricular ejection fraction is 70 %. Dynamic LVOT gradient noted. Ordering Physician: Radha Moss Referring Physician: Radha Moss Performed By: Millie Cooper RCS
== END | disposition home or self-care (01) ==
PROVIDERS: PCP Student in an Organized Health Care Education/Training Program; Referring Provider Physician Assistant Medical; Visit Provider Physician Assistant Medical
DX: I51.7 Cardiomegaly (principal)
CPT/HCPCS: 93306

== ENCOUNTER 2024-10-12 00:25 | Observation (INO) | payer MEDICARE, MEDICAID, SELFPAY ==
[2024-10-12] VITALS (16 sets, daily range): BP systolic 130–194; BP diastolic 55–76; PULSE 59–90; RESP 14–38; TEMP 2.7–37.1; O2SAT 95–100; BMI 36.4; BMI 36.3
[2024-10-12 01:17] LABS: Hematocrit 42.1 % (40-54); Hemoglobin 12.8 g/dL (13.0-16.5); Immature Granulocytes Count 0.040 X10^3/uL (0.0-0.0); Mean Corp Hgb Conc 30.4 g/dL (32-36); Mean Corpuscular Volume 88.4 fL (80-94); Mean Platelet Vol. 9.5 fl (6.2-12.0); NRBC Flagged by Analyzer 0 % (0-5); Platelet Count 202 K/mm3 (150-450); RBC Distribution Width CV 14.0 % (11.6-14.6); RBC Distribution Width SD 45.1 fl (35.1-43.9); Red Blood Count 4.76 M/mm3 (4.6-6.2); White Blood Count 4.5 K/mm3 (4.4-11.0)
[2024-10-12 01:52] LABS: AST(SGOT) 23 U/L (<=37); Alanine Aminotransfer ALT/SGPT 28 U/L (<=46); Albumin, Serum 4.2 g/dL (3.4-4.8); Alkaline Phosphatase 240 U/L (40-129); Anion Gap 11 (5-15); BUN 18 mg/dL (4-19); BUN/Creat Ratio 7.6 RATIO (10-20); Calcium,Total 9.3 mg/dL (7.6-11.0); Carbon Dioxide 19.7 mmol/L (21.0-32.0); Chloride 106 mmol/L (98-108); Estimated Creatinine Clearance 41.45 ml/min (50-250); Globulin 2.4 g/dL (2.2-4.2); Glucose 159 mg/dL (70-99); Lipase 9 U/L (13-75); Potassium 4.5 mmol/L (3.3-5.1)
--- NOTE | 2024-10-12 02:02 | EDS_ITS ---
HPI History of Present Illness Chief Complaint: Nausea/Vomiting Narrative Narrative: Chief complaint and HPI: Nausea and vomiting. 64-year-old male with type 1 diabetes on insulin pump, NORBERTO, HTN, status post renal transplant 3 years ago on mycophenolate and sirolimus in which he follows with [facility] transplant presents for evaluation of nausea and vomiting. Onset this morning. Patient states he was able to take his morning medications but not his evening medications secondary to nausea and vomiting. He denies any fever, chills, shortness of breath, chest pain, abdominal pain, diarrhea, dysuria. Does endorse congestion and cough. Patient states his sugars have been reading normal on his insulin pump. Review of systems: See HPI Medications: As listed on the chart Allergies: As listed on the chart PFSH: Per chart Vital signs: As listed on the chart. Reviewed. Physical exam: Gen: A&O x3, NAD Head: Normocephalic, atraumatic Eyes: No sclera icterus, conjunctiva clear ENT: Dry mucous membranes Neck: Trachea midline, No JVD CV: RRR, no murmurs, no peripheral edema Resp: Lungs CTA BL, no w/r/c GI: Abd soft, non-distended, non-tender, no r/r/g : No CVA tenderness Musc: Full ROM, no deformity Skin: Warm, dry Neuro: Alert, oriented, grossly intact, sensation intact Psych: Cooperative, appropriate mood and affect [facility] Medical History Diabetes mellitus type 1 TIA (transient ischemic attack) Toxic metabolic encephalopathy COVID-19 virus infection (06/10/21) Encephalopathy acute Hepatitis C test positive CPAP (continuous positive airway pressure) dependence Sleep apnea Wears dentures Wears glasses Insulin dependent diabetes mellitus Walker as ambulation aid Arthritis Prostate disease History of renal disease High cholesterol Former smoker Malfunction of arteriovenous dialysis fistula Abdominal pain Incomplete right bundle branch block Uncontrolled type 1 diabetes mellitus with ESRD (end-stage renal disease) NORBERTO (obstructive sleep apnea) Atherosclerosis of [place] coronary artery of [place] heart without angina pectoris Essential hypertension Diabetic polyneuropathy associated with type 1 diabetes mellitus CKD (chronic kidney disease) stage 4, GFR 15-29 ml/min Diabetes type 1, uncontrolled Stroke Pancreatitis Kidney disease Type 1 diabetes Cataracts, bilateral DM2 (diabetes mellitus, type 2) Tobacco abuse Hyperlipidemia Home Medications ?Medication ?Instructions ?Recorded ?Last Taken ?Type albuterol sulfate 90 mcg/actuation 1 - 2 puff inhalati on Q6H PRN PRN 07/24/19 10/27/19 History aerosol inhaler Wheezing BP cuff #1 ea 11/27/19 Unknown Rx pen needle, diabetic 32 gauge x #400 ea 02/12/20 Unkno wn Rx 5/32 (BD Ultra-Fine Cici Pen Needle) tamsulosin 0.4 mg capsule 0.4 mg PO QHS 04/22/20 Unkno wn History propylene glycol 0.6 % eye drops 1 drp ophthalmic (eye ) DAILY PRN 07/28/21 Unknown History (Systane Balance) lubricant mycophenolate mofetil 250 mg 500 mg PO BID 09/19/21 Un known History capsule sulfamethoxazole 800 1 tab PO .QOD 09/19/21 Unkno wn History mg-trimethoprim 160 mg tablet blood-glucose sensor (Dexcom G6 #9 ea 09/22/21 Unknown Rx Sensor device) blood-glucose transmitter (Dexcom #1 ea 09/22/21 Unkno wn Rx G6 Transmitter device) sirolimus 0.5 mg tablet 0.5 mg PO DAILY 01/30/22 Unk nown History atorvastatin 40 mg tablet 40 mg PO QHS #90 tabs Unknown Rx blood sugar diagnostic (Blood #100 ea 10/13/22 Unknown Rx Glucose Test strips) blood-glucose meter #1 ea 10/23/22 Unknown Rx timolol 0.5 % eye drops 1 drp ophthalmic (eye) DAILY 05/07/23 Unknown History blood-glucose meter (Accu-Chek #1 ea 06/04/23 Unknown Rx Guide Glucose Meter) lancing device with lancets kit #1 ea 06/04/23 Unknown Rx (Accu-Chek Softclix Lancing Device+Lancets kit) famotidine 20 mg tablet (Pepcid) 20 mg PO DAILY Unknown History Novolog U-100 Insulin aspart 100 120 unit (1.2 mL) con tinuous 02/14/24 Unknown Rx unit/mL subcutaneous solution subcutaneous infusion .c ontinuous (insulin aspart U-100) #108 mL blood sugar diagnostic (Accu-Chek #100 ea 02/14/24 Unk nown Rx Guide test strips) amlodipine 2.5 mg tablet 2.5 mg PO DAILY #30 tabs 11/24 Unknown Rx aspirin 325 mg tablet 325 mg PO DAILY 06/03/24 Unk chloen History carvedilol 12.5 mg tablet 12.5 mg PO BID #180 tabs 07/25 Unknown Rx clopidogrel 75 mg tablet 75 mg PO DAILY #90 tabs 07/25 Unknown Rx Allergy/AdvReac Type Severity Reaction Status Date / Time No Known Allergies Allergy Verified 10/12/24 00:28 Family History Mother Diabetes Thyroid disorder Hypertension Hyperlipidemia Surgical History Status post glaucoma surgery Kidney transplant recipient Kidney transplant recipient History of kidney transplant (03/27/21) history of peritoneal catheter insertion (~03/2020) Problem with dialysis access (04/05/20) History of coronary artery stent placement (04/21/11) Arteriovenous fistula for hemodialysis in place, primary History of bilateral cataract extraction H/O cardiac catheterization Social History household members: spouse Smoking Status: Current every day smoker tobacco type: cigarettes how long ago did patient quit smokin months alcohol intake: current alcohol intake frequency: holidays/special occasions only substance use type: does not use caffeine: Yes Type: coffee Number of servings: 2 EXAM Physical Exam Const Vital Signs: 10/12/24 00:27 10/12/24 01:38 10/12/24 02:10 Temperature 97.9 F Temperature Source Oral Pulse Rate 64 59 L Respiratory Rate 27 H 16 Blood Pressure 169/68 H 194/66 H 188/73 H Blood Pressure Mean 101 108 105 Pulse Ox 99 98 Oxygen Delivery Method Room Air 10/12/24 02:15 10/12/24 02:20 10/12/24 02:37 Temperature Temperature Source Pulse Rate 59 L 59 L Respiratory Rate 18 18 38 H Blood Pressure 188/73 H Blood Pressure Mean 111 Pulse Ox 99 98 99 Oxygen Delivery Method Room Air 10/12/24 02:45 10/12/24 03:00 Temperature Temperature Source Pulse Rate Respiratory Rate 29 H 26 H Blood Pressure 168/73 H Blood Pressure Mean 101 Pulse Ox 99 97 Oxygen Delivery Method MDM MDM MDM Narrative Medical decision making narrative: 64-year-old male with type 1 diabetes on insulin pump, NORBERTO, HTN, status post renal transplant 3 years ago on mycophenolate and sirolimus in which he follows with [facility] transplant presents for evaluation of nausea and vomiting. Onset this morning. Associated symptoms are congestion and cough. Differential diagnosis includes but is not limited to viral gastroenteritis, COVID, influenza, electrolyte abnormality, DEION, transplant rejection, pneumonia, UTI, DKA. NS bolus ordered, Zofran, DuoNeb ordered. CBC without leukocytosis. Patient has baseline anemia of 12.8. CMP shows baseline renal insufficiency with creatinine of 2.35. No anion gap. Patient is mildly hyperglycemic at 159. No transaminitis. Lipase not elevated. Lactic acid unremarkable. Beta hydroxybutyrate mildly elevated at 0.4. VBG shows acidosis with a pH of 7.29. UA is positive for ketones and UTI. This is a mixed picture for DKA as patient has no anion gap. Also can have these lab abnormalities with dehydration. Chest x-ray was personally viewed interpreted by me, ED physician. BMP cardiomegaly with mild congestion. No effusion or pneumothorax. No obvious pneumonia. However per radiology infection is possible. Given that patient has a cough cannot rule out pneumonia especially with him being on immunosuppressants therefore Rocephin and azithromycin ordered for possible acutely acquired pneumonia. On reevaluation, patient is still having nausea and vomiting. Patient will warrant admission. I spoke with the hospitalist service, no need to broaden antibiotics at this time as no true pneumonia seen on chest x-ray. No need to treat for DKA as they agree lab abnormalities likely secondary to dehydration. They accepted admission. Patient and family were updated of all the results and confirmed understanding of plan. Impression: 1. Intractable nausea and vomiting 2. UTI 3. Possible pneumonia 4. History of renal transplant with CKD 5. DM 1 Lab Data Labs: Laboratory Results - last 24 hr 10/12/24 01:10 WBC 4.5 RBC 4.76 Hgb 12.8 L Hct 42.1 MCV 88.4 MCH 26.9 L MCHC 30.4 L RDW Std Deviation 45.1 H RDW Coeff of Kindra 14.0 Plt Count 202 MPV 9.5 Immature Gran % (Auto) 0.900 Neut % (Auto) 74.9 H Lymph % (Auto) 16.0 L Meagher % (Auto) 7.3 Eos % (Auto) 0.2 Baso % (Auto) 0.7 Absolute Neuts (auto) 3.4 Absolute Lymphs (auto) 0.72 L Nucleated RBC % 0 Sodium 137 Potassium 4.5 Chloride 106 Carbon Dioxide 19.7 L Anion Gap 11 BUN 18 Creatinine 2.35 H Estim Creat Clear Calc 41.45 L Est GFR (MDRD) Non-Af 31 L BUN/Creatinine Ratio 7.6 L Glucose 159 H Lactic Acid < 1.0 Calcium 9.3 Total Bilirubin 0.57 AST 23 ALT 28 Alkaline Phosphatase 240 H Total Protein 6.6 Albumin 4.2 Globulin 2.4 Albumin/Globulin Ratio 1.7 Lipase 9 L b-Hydroxybutyric mmol/L 0.4 H ABG Data ABG results: ABG 10/12/24 02:18 Specimen Type ZEE Sample Site Not entered VBG pH 7.29 L VBG pO2 35 VBG HCO3 21 L VBG Total CO2 23 VBG O2 Sat (Calc) 60 VBG Base Excess -6 L POC Mix VBG pCO2 Pt Tmp 44.4 O2 Delivery Device Room Air Radiography Diagnostic Testing: Clinical Impression(s) from Imaging Studies Chest X-Ray 10/12/24 02:30 IMPRESSION: Mild findings of edema. Infection is possible. Reading Location: [place] [id number] Discharge Plan Disposition Disposition: Acute Care Hospital [facility] Discharge Date/Time: 10/12/24 05:34
[2024-10-12] MEDS: 0.9% Normal Saline (1000mL) 1,000 ML 1000 ML IV (02:08)
[2024-10-12 02:23] LABS: SITE Not entered; VBG BASE EXCESS -6 mmol/L (-1.0-3.5); VBG PO2 35 mmHg (25-40); VBG SO2 60 % (50-70); VBG TCO2 23 mmol/L (23-33)
--- NOTE | 2024-10-12 02:30 | RAD_ITS ---
PROCEDURE: CHEST PA AND LATERAL 10/12/2024 REASON FOR EXAM: COUGH TECHNIQUE: CHEST PA AND LATERAL COMPARISON: None. FINDINGS: The heart is enlarged. Vascular indistinctness suggestive of edema. No pleural effusion or pneumothorax. No acute osseous abnormalities. RAD/Chest PA and Lateral IMPRESSION: Mild findings of edema. Infection is possible. Reading Location: [place] [id number]
--- OUTSIDE RECORDS SUMMARY | 2024-10-12 03:04 | XMS RPT_ITS | CCD ---
Author Organization [facility] Care Team Providers Care Bulb Farmworker Name Role Phone Handy Henderson Unavailable Abraham Hammond Unavailable Unavailable Michael ZUÑIGA, Diego Rosario Unavailable Carolyn ZUÑIGA, Peter Huerta Unavailable Handy Henderson DO Primary Care Provider NELA MCNEIL Attending Unavailable TARUN NELA Referring Unavailable PHYSICIAN PHYSICIAN, PCP PCP UNKNOWN~[phone] Primary Care Unavailable Ronald Rees DO, Christine Unavailable Javier Licona Unavailable Abad Garrett (Hist) Unavailable Handy Henderson DO Primary Care Provider Dr. Handy Henderson Primary Care Provider Dr. Handy Henderson Referring Provider Dr. Shamir Tsai Attending Provider Dr. Cesra Reyna Emergency Provider Dr. Missy Ulloa Attending Provider Dr. Missy Ulloa Admit Provider Dr. Juanita Cardenas Attending Provider Dr. Juanita Cardenas Other Provider Dr. Mattie Garcia Other Provider ANJUM Salgado Attending Provider Dr. Pavan Shell Attending Provider Ronald I, DO, Rosario Unavailable Shook, B J Unavailable Abad Garrett (Hist) Unavailable Handy Henderson DO Primary Care Provider Livan, B J Unavailable Handy Henderson DO Primary Care Provider Ronald Rees DO Rosario Unavailable Shotien, B J Unavailable Abad Garrett (Hist) Unavailable Handy Henderson DO Primary Care Provider Ronald DelonDO, Rosario Unavailable Abad Garrett Unavailable Dr. Handy Henderson Primary Care Provider Dr. Handy Henderson Referring Provider ANJUM Salgado Attending Provider ANJUM Lieberman NP Attending Provider Dr. George Pacheco Admitting Arik Pacheco, Dr. George Zayas Attending Arik Pacheco, Dr. George Zayas Referring Dr. Handy Pike Primary Care Maryva bernarda Rodriguez MD, Diego Rosario Unavailable Carolyn ZUÑIGA, Peter Huerta Unavailable Handy Henderson DO Primary Care Provider Javier Licona Unavailable Dr. Handy Henderson Primary Care Provider Dr. Handy Henderson Referring Provider ANJUM Salgado Attending Provider Dr. Shamir Tsai Attending Provider Sam INVESTMENT COUNSELOR, INVESTMENT COUNSELOR-C Erica Referring Provider Esteban INVESTMENT COUNSELOR, INVESTMENT COUNSELOR-C Erica Referring Provider Dr. Nicolas Lawrence Attending Provider Mio INVESTMENT COUNSELOR, INVESTMENT COUNSELOR-C Gabi Attending Provider Dr. Handy Henderson Primary Care Provider Dr. Shamir Tsai Attending Provider Esteban INVESTMENT COUNSELOR, INVESTMENT COUNSELOR-C Erica Referring Provider Dr. Handy Henderson Referring Provider Dr. Nicolas Lawrence Attending Provider [phone] Mio INVESTMENT COUNSELOR, INVESTMENT COUNSELOR-C Gabi Attending Provider Dr. Nicolas Lawrence Referring Provider [phone] Nicolas Lawrence Other Provider Handy Henderson DO Primary Care Provider Peter Leon MD Unavailable Unavailable Handy Henderson DO Primary Care Provider HANDY HENDERSON Primary Care Unavailable MIRNA STUART Attending Unavailable SELF, SELF Referring Unavailable Holguin ROPEWALK ROPE MAKER.ENGINE SETTER, Maya Usha Unavailable Jimmy ROPEWALK ROPE MAKER.ENGINE SETTER, Tara Unavailable Abad Garrett MD Unavailable Dr. Handy Henderson DO Primary Care Provider [phone] Dr. Handy Henderson DO Referring Provider Radha Kaufman Attending Provider Radha Kaufman Referring Provider Suleman ZUÑIGA, Dr. Browne Attending Provider Mirna Dumont Attending Provider Abbey Rousseau Referring Unavailable Handy Henderson Primary Care Unavailable Abbey Rousseau Attending Unavailable Handy Henderson Primary Care Unavailable Daniel Culp Referring Unavailable Daniel Culp Attending Unavailable Handy Henderson Primary Care Unavailable Radha Moss Referring UnavailRadha Lopez Attending Unavailabl e Henderson, Handy Primary Care Unavailable Rousseau, Abbey Attending Unavailable Rousseau, Abbey Referring Unavailable Rousseau, Abbey Referring Unavailable Henderson, Handy Primary Care Unavailable Rousseau, Abbey Attending Unavailable Rousseau, Abbey Consulting Unavailable Henderson, Handy Primary Care Unavailable Henderson, Handy Referring Unavailable Radha Moss Attending Unavailabl e Henderson, Handy Primary Care Unavailable Henderson, Handy Referring Unavailable Mirna Salgado Attending Unavailable Henderson, Handy Primary Care Unavailable Henderson, Handy Referring Unavailable Radha Moss Attending Unavailabl e Henderson, Handy Primary Care Unavailable Henderson, Handy Referring Unavailable Mirna Salgado Attending Unavailable Pavan Shell Attending Unavailable Henderson, Handy Primary Care Unavailable Rousseau, Abbey Referring Unavailable Henderson, Handy Primary Care Unavailable Rousseau, Abbey Attending Unavailable Rousseau, Abbey Consulting Unavailable Rousseau, Abbey Referring Unavailable Henderson, Handy Primary Care Unavailable Rousseau, Abbey Attending Unavailable Rousseau, Abbey Consulting Unavailable Henderson, Handy Primary Care Unavailable Rousseau, Abbey Attending Unavailable Rousseau, Abbey Consulting Unavailable Rousseau, Abbey Referring Unavailable Henderson, Handy Primary Care Unavailable Rousseau, Abbey Attending Unavailable Rousseau, Abbey Consulting Unavailable Rousseau, Abbey Referring Unavailable Henderson, Handy Primary Care Unavailable Rousseau, Abbey Attending Unavailable Rousseau, Abbey Referring Unavailable [place] ALMAZAN.ENGINE SETTERRosi Unavailable [phone] HENDERSON, HANDY L Primary Care Unavailable HENDERSON, HANDY L Attending Unavailable SELF Referring Unavailable ANDERS GÓMEZO Referring Unavailable HENDERSON, HANDY L Primary Care Unavailable TRINY PALMER Attending Unavailable TRINY PALMER Referring Unavailable HENDERSON, HANDY L Primary Care Unavailable HENDERSON, HANDY L Attending Unavailable HENDERSON, HANDY L Primary Care Unavailable HENDERSON, HANDY L Primary Care Unavailable HENDERSON, HANDY L Referring Unavailable HENDERSON, HANDY L Primary Care Unavailable SHERWIN, MIGEL Referring Unavailable HENDERSON, HANDY L Primary Care Unavailable HENDERSON, HANDY L Primary Care Unavailable HENDERSON, HANDY L Referring Unavailable REYES PEREA Attending Unavailable HENDERSON, HANDY L Primary Care Unavailable HENDERSON, HANDY L Referring Unavailable REYES PEREA Attending Unavailable HENDERSON, HANDY L Primary Care Unavailable GEORGE PACHECO Referring Unavailable GEORGE PACHECO Attending Unavailable PACHECO, GEORGE K Referring Unavailable PACHECO, GEORGE K Attending Unavailable HANDY HENDERSON Primary Care Unavailable HANDY HENDERSON Primary Care Unavailable TESTTRINY CONTRERAS Referring Unavailable TESTTRINY CONTRERAS Attending Unavailable HENDERSON HANDY Ana Luisa Primary Care Unavailable HENDERSONHANDY Ana Luisa Primary Care Unavailable MIGEL GÓMEZ Referring Unavailable HANDY HENDERSON Attending Unavailable HANDY HENDERSON Primary Care Unavailable HANDY HENDERSON Primary Care Unavailable TESTBEN, TRINY Attending Unavailable HENDERSONHANDY Primary Care Unavailable TESTBEN, TRINY Referring Unavailable MIGEL GÓMEZ Referring Unavailable HANDY HENDERSON Primary Care Unavailable HANDY HENDERSON Attending Unavailable HANDY HENDERSON Primary Care Unavailable GEORGE PACHECO Attending Unavailable HENDERSONHANDY DUARTE Primary Care Unavailable Medications Current Medications Medication Drug Class(es) Dates Sig (Normalized) Sig (Original) amLODIPine 2.5 mg oral tablet (20 sources) Dihydropyridine Calcium Channel Siddhartha Start: 02-16-2023 End: 04-09-2024 amLODIPine (NORVASC) 2.5 mg tablet 03/15/2023 Active Start: 06-16-2019 End: 10-07-2019 take 5 mg by mouth once daily Amlodipine 10 mg tablet Discontinued 5 mg PO DAILY June 16, 2019 2:27pm October 07, 2019 4:38pm Start: 06-16-2019 End: 10-07-2019 take 5 mg by mouth once daily Amlodipine Discontinued 5 MG PO DAILY June 16, 2019 2:27pm October 07, 2019 4:38pm Start: 03-07-2018 End: 06-16-2019 take 1 tablet by mouth once daily Amlodipine 10 mg tablet Discontinued 10 mg PO DAILY March 07, 2018 TAKE 1 TABLET BY [place] TH EVERY DAY calcitriol 0.0005 mg oral capsule (20 sources) Vitamin D3 Analog Start: 06-10-2021 take 0.5 ug by mouth every other day Calcitriol Active 0.5 MCG PO EVERY OTHER DAY June 10, 2021 1:00am Start: 03-31-2020 End: 01-07-2022 take 1 capsule by mouth once daily calcitriol (ROCALTROL) 0.5 mcg capsule Take 0.5 mcg by mouth once daily. 03/31/2020 01/07/2022 Discontinued (Discontinued by another Health Care Provider) Comment on above: Take 0.5 mcg by mout h once daily. carvedilol 12.5 mg oral tablet (20 sources) alpha-Adrenergic Siddhartha, beta-Adrenergic Siddhartha Start: 06-09-2022 End: 06-17-2024 take 1 tablet by mouth once daily carvedilol (COREG) 12.5 mg tablet Take 1 tablet by mouth once daily. 90 tablet 3 06/17/2024 Active Start: 07-20-2021 End: 06-03-2024 take 1 tablet by mouth twice daily at mealtime Carvedilol 12.5 mg tablet Discontinued 12.5 mg PO TWICE A DAY 180 July 02, 2023 8:12am June 03, 2024 3:44pm must administer with a meal/food Start: 03-11-2020 End: 06-09-2022 take 1 tablet by mouth every twelve hours carveDILOL 12.5 MG tablet Take 1 tablet by mouth every 12 hours. 06/21/2021 Active Comment on above: Take 12.5 mg by mout h twice daily with meals. Take 1 tablet by syd[place] th q 12 HR. Take 1 tablet by syd[place] th once daily. cholecalciferol 0.125 mg oral tablet (20 sources) Vitamin D Start: 06-09-19 take 1 tablet by mouth once daily Cholecalciferol (Vitamin D3) (Vitamin D3) 125 mcg (5,000 unit) tablet Active 5000 UNIT PO DAILY June 08, 2021 1:00am Start: 10-07-2019 End: 10-07-2019 take 1 capsule by mouth once daily Cholecalciferol (Vitamin D3) 125 mcg (5,000 unit) capsule Discontinued 125 ug PO DAILY October 07, 2019 12:00am October 07, 2019 3:48pm clopidogrel 75 mg oral tablet (20 sources) P2Y12 Platelet Inhibitor Start: 01-26-2013 End: 06-03-2024 take 1 tablet by mouth once daily clopidogrel (PLAVIX) 75 mg tablet Take 1 tablet by mouth once daily. 90 tablet 01/10/2021 Active Comment on above: Take 1 tablet by sydney th once daily. collagenase 0.25 unt/mg topical ointment (20 sources) Collagen-specific Enzyme Start: 11-28-2022 End: 12-28-2022 collagenase (SANTYL) ointment Indications: Skin ulcer of toe of right foot with fat layer exposed (HCC) Apply to affected area once daily. APPLY TO AFFECTED AREA 30 g 2 11/28/2022 12/28/2022 Active Start: 10-09-2020 End: 01-07-2022 collagenase (SANTYL) ointmen t Indications: Leg wound, right, sequela Apply to affected area once daily. On right leg wound 15 g 1 10/09/2020 01/07/2022 Discontinued (Discontinued by another Health Care Provider) Comment on above: Apply to affected ar ea once daily. On right leg wound Apply to affected ar ea once daily. APPLY TO AFFECTED AREA CUSTOM MEDICATION (6 sources) Start: 06-22-2021 CUSTOM MEDICATION Please obtain AM everolimus level prior to morning dose and fax to Dr. Leon Skinner at [phone] 1 Each 0 06/22/2021 Active Start: 06-21-2021 CUSTOM MEDICAT ION Please obtain weekly BMP and CBC for two weeks and fax results to Dr. Leon Skinner at [phone]. 1 Each 0 06/21/2021 Active cyclobenzaprine hydrochloride 10 mg oral tablet (15 sources) Muscle Relaxant Start: 12-11-2023 End: 03-12-2024 take 1 tablet by mouth three times daily as needed for pain cyclobenzaprine (FLEXERIL) 10 mg tablet Indications: Chronic midline low back pain without sciatica , Lumbar paraspinal muscle spasm Take 1 tablet by mouth three times a day as needed for muscle spasm or pain. 90 tablet 1 03/12/2024 Active Dexcom G6 Sensor Misc (5 sources) Start: 08-06-2019 Dexcom G6 Sensor Misc Change Sensor every 14 days Patient reading blood sugar 12 times daily 08/06/2019 Active Start: 08-06-2019 Dexcom G6 Sens or Misc Change Sensor every 14 days Patient reading blood sugar 12 times daily 0 08/06/2019 Active Dexcom G6 Transmitter Misc (5 sources) Start: 05-26-2020 Dexcom G6 [place] smitter Misc CHANGE EVERY 90 DAYS 05/26/2020 Active Start: 05-26-2020 Dexcom G6 [place] smitter Misc CHANGE EVERY 90 DAYS 0 05/26/2020 Active docusate sodium 100 mg oral capsule (20 sources) Start: 04-20-2021 take 1 capsule by mouth twice daily as needed for constipation docusate 100 MG capsule Take 1 capsule by mouth 2 times daily as needed for Constipation. Hold for loose stool 04/20/2021 Active Comment on above: Take 100 mg by mouth twice daily. everolimus 1 mg oral tablet (20 sources) Kinase Inhibitor, mTOR Inhibitor Immunosuppressant Start: 09-19-2021 take 3 mg by mouth every twelve hours Everolimus (Immunosuppressiv e) Active 3 MG PO Q12H September 19, 2021 12:00am Start: 06-21-2021 End: 08-05-2021 take 3 tablets by mouth every twelve hours Everolimus 1 MG tablet Take 3 tablets by mouth every 12 hours. 180 tablet 0 07/06/2021 08/05/2021 Active Start: 06-20-2021 End: 06-21-2021 take 1 tablet by mouth every twelve hours everolimus (ZORTRESS) tablet 3 mg Start: 06-17-2021 End: 06-20-2021 take 1 tablet by mouth every twelve hours everolimus (ZORTRESS) tablet 2 mg End: 01-07-2022 take 1 tablet by mouth twice daily everolimus, immunosuppressive, (ZORTRESS) 1 mg tablet Take 1 mg by mouth twice daily. 0 01/07/2022 Discontinued (Discontinued by another Health Care Provider) Comment on above: Take 1 mg by mouth t wice daily. famotidine 20 mg oral tablet (20 sources) Histamine-2 Receptor Antagonist Start: 03-17-2022 End: 12-04-2023 take 1 tablet by mouth once daily as needed Famotidine (Pepcid) 20 mg tablet Active 20 mg PO DAILY as needed December 04, 2023 2:25pm Start: 06-09-2021 End: 06-17-2024 take 1 tablet by mouth twice daily famotidine (PEPCID) 20 mg tablet Take 1 tablet by mouth two times a day. 180 tablet 3 06/17/2024 Active Comment on above: Take 20 mg by mouth twice daily. Take 1 tablet by syd[place] th twice daily. Take 1 tablet by syd[place] th two times a day. fluticasone propionate 0.05 mg/actuat metered dose nasal spray (20 sources) Corticosteroid Start: End: 3 take 2 spray(s) by mouth once daily fluticasone (FLONASE) 50 mcg/actuation nasal spray Indications: Seasonal allergies Use 2 Sprays in each nostril once daily. Rinse mouth after use. 3 Each 3 10/17/2022 Active Comment on above: Use 2 Sprays in each nostril once daily. Rinse mouth after use. furosemide 20 mg oral tablet (20 sources) Loop Diuretic Start: 4 End: 4 take 1 tablet by mouth once furosemide (LASIX) 20 mg tablet Take 1 tablet by mouth every afternoon. 07/09/2023 Active Start: 06-21-2021 End: 07-06-2021 take 2 tablets by mouth twice daily furOSEmide 20 MG tablet Take 2 tablets by mouth 2 times daily for 5 days. 20 tablet 0 06/21/2021 07/06/2021 Discontinued Start: 06-18-2021 furOSEmide (LA SIX) injection 80 mg Start: 06-07-2020 End: 01-07-2022 take 1 tablet by mouth twice daily Furosemide 80 mg tablet Discontinued 80 mg PO TWICE A DAY September 27, 2020 12:00am November 25, 2020 2:43pm Start: 03-11-2020 End: 04-22-2020 take 1 tablet by mouth once daily Furosemide 20 MG tablet Discontinued 20 mg PO DAILY March 11, 2020 1:00am April 22, 2020 5:02pm Start: 01-26-2013 End: 06-16-2019 take 10 mg by mouth twice daily Furosemide 20 MG table t Discontinued 10 mg PO TWICE DAILY January 26, 2013 12:00am June 16, 2019 2:25pm Start: 01-26-2013 End: 06-16-2019 take 10 mg by mouth twice daily Furosemide Discontinue d 10 MG PO TWICE DAILY January 26, 2013 12:00am June 16, 2019 2:25pm Comment on above: Take 80 mg by mouth twice daily. ketorolac tromethamine 5 mg/ml ophthalmic solution (5 sources) Nonsteroidal Anti-inflammatory Drug, Cyclooxygenase Inhibitor Start: 01-13-2022 End: 02-15-2022 ACULAR 0.5 % ophthalmic solution Use 1 Drop in the right eye four times daily for 14 days. Use twice a day for 2 weeks then stop 10 mL 1 02/01/2022 02/15/2022 Active Comment on above: Use 1 Drop in the ri ght eye four times daily for 28 days. Use 1 Drop in the ri ght eye four times daily for 14 days. Use twice a day for 2 weeks then stop loperamide hydrochloride 2 mg oral tablet (16 sources) Opioid Agonist Start: 05-10-2024 loperamide HCl (ANTI-DIARRHEAL) 2 mg tab Take 1 tablet by mouth as needed. 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 30 g 0 11/08/2022 11/18/2022 Active Comment on above: Apply 1 application to affected area three times daily for 10 days. mycophenolate mofetil 250 mg oral capsule (20 sources) Start: 11-20-2022 take 4 capsules by mouth every twelve hours Mycophenolate mofetil (CELLCEPT) 250 MG capsule Take 4 capsules by mouth every 12 hours. 720 capsule 3 11/20/2022 Active Start: 08-14-2022 take 4 capsules by m outh every twelve hours Mycophenolate mofetil (CELLCEPT) 250 MG capsule TAKE 4 CAPSULES BY MOUTH EVERY 12 HOURS. 240 capsule 2 08/14/2022 Active Start: 09-19-2021 take 500 mg by mouth twice daily at bedtime Mycophenolate Mofetil Active 500 MG PO TWICE A DAY September 19, 2021 10:04am 1250 AT HS Start: 07-06-2021 End: 07-06-2022 take 4 capsules by mouth every twelve hours mycophenolate mofetil (CELLCEPT) 250 MG capsule Take 4 capsules by mouth every 12 hours. Diagnosis Code: ICD 9:V42.0, ICD 10:Z94.0 - Kidney transplant. Date of Transplant: 03/27/2021. 240 capsule 11 07/06/2021 07/06/2022 Active Start: 06-12-2021 End: 06-21-2021 take 1 capsule by mouth every twelve hours 500 mg, Oral, EVERY 12 HOURS NON-STANDARD, First dose on 06/12/21 at 0900, Until Discontinued ---MEDICATION EXPOSURE PRECAUTIONS--- Do not split, break, crush or open this medication. Contact pharmacy if altered route or dose is needed. Start: 06-08-2021 End: 01-07-2022 take 1 capsule by mouth twice daily at bedtime Mycophenolate Mofetil 250 mg capsule Active 500 mg PO TWICE A DAY September 19, 2021 10:04am 1250 AT HS Start: 06-08-2021 End: 09-19-2021 take 1000 mg by mouth twice daily at bedtime Mycophenolate Mofetil Discontinued 1000 MG PO TWICE A DAY June 08, 2021 1:00am September 19, 2021 10:08am 1250 AT HS Start: 05-16-2021 End: 05-16-2022 take 2 capsules by mouth every twelve hours mycophenolate mofetil (CELLCEPT) 250 MG capsule Take 2 capsules by mouth every 12 hours. Diagnosis Code: ICD 9:V42.0, ICD 10:Z94.0 - Kidney transplant. Date of Transplant: 03/27/2021. 120 capsule 11 05/16/2021 07/06/2021 Discontinued mycophenolate mo fetil (CELLCEPT) 250 mg capsule Take by mouth twice daily. 4 caps q 12 hours Active Comment on above: Take by mouth twice daily. 4 caps q 12 hours Take by mouth twice daily. phenylephrine hydrochloride 25 mg/ml ophthalmic solution (5 sources) alpha-1 Adrenergic Agonist Start: 05-23-2024 End: 05-24-2024 PHENYLephrine 2.5 % 1 Drop (AK-DILATE, DAVID-SYNEPHRINE) Start: 09-11-2023 End: 09-12-2023 PHENYLephrine 2.5 % 1 Drop ( AK-DILATE, DAVID-SYNEPHRINE) Start: 10-09-2022 End: 10-09-2022 PHENYLephrine 2.5 % 1 Drop ( AK-DILATE, DAVID-SYNEPHRINE) Start: 11-07-2021 End: 11-08-2021 PHENYLephrine 2.5 % 1 Drop ( AK-DILATE, DAVID-SYNEPHRINE) polyethylene glycol 3350 462603 mg / potassium chloride 2970 mg / sodium bicarbonate 6740 mg / sodium chloride 5860 mg / sodium sulfate 05013 mg powder for oral solution (1 source) Osmotic Laxative Start: 09-17-2024 End: 09-17-2024 peg 3350-Electrolytes (GOLYTELY) 236-22.74-6.74 -5.86 gram suspension Indications: Screening for colon cancer Take 4,000 mL by mouth one time only for 1 dose. Refer to printed prep instructions from your provider. 4000 mL 09/17/2024 09/17/2024 Active prednisoLONE acetate 10 mg/ml ophthalmic suspension (20 sources) Corticosteroid Start: 02-01-2022 End: 02-15-2022 prednisoLONE acetate (PRED FORTE) 1 % ophthalmic suspension Use 1 Drop in the right eye twice daily for 14 days. Use 1 drop twice a day for 2 weeks then STOP 15 mL 2 02/01/2022 02/15/2022 Active Start: 01-13-2022 End: 02-10-2022 prednisoLONE acetate (PRED F ORTE) 1 % ophthalmic suspension Use 1 Drop in the right eye four times daily for 28 days. 15 mL 2 01/13/2022 02/01/2022 Discontinued Start: 09-19-2021 End: 08-16-2022 Prednisolone Acetate (Pred F orte) 1 % drops,suspension Discontinued 1 NMA OPHTHALMIC .COMPLEX September 19, 2021 12:00am August 16, 2022 1:51pm 1 drp into the eye(s) as directed; Start: 09-19-2021 End: 08-16-2022 Prednisolone Acetate (Pred F orte) 1 % drops,suspension Discontinued 1 DRP OPHTHALMIC .COMPLEX September 19, 2021 12:00am August 16, 2022 1:51pm 1 drp into the eye(s) as directed; Start: 06-12-2021 End: 10-05-2022 1 drop, Both Eyes, 2 TIMES D AILY, First dose on 06/12/21 at 0900, Until Discontinued Shake well prior to use. Comment on above: Use 1 Drop in the ri ght eye four times daily for 28 days. Use 1 Drop in the ri ght eye twice daily for 14 days. Use 1 drop twice a day for 2 weeks then STOP proparacaine hydrochloride 5 mg/ml ophthalmic solution (8 sources) Local Anesthetic Start: 05-23-2024 End: 05-24-2024 proparacaine 0.5 % 1 Drop (ALCAINE) Start: 11-12-2023 End: 11-13-2023 proparacaine 0.5 % 1 Drop (A LCAINE) Start: 09-11-2023 End: 09-12-2023 proparacaine 0.5 % 1 Drop (A LCAINE) Start: 10-09-2022 End: 10-09-2022 proparacaine 0.5 % 1 Drop (A LCAINE) Start: 02-01-2022 End: 02-02-2022 proparacaine 0.5 % 1 Drop (A LCAINE) Start: 01-13-2022 End: 01-14-2022 proparacaine 0.5 % 1 Drop (A LCAINE) Start: 11-07-2021 End: 11-08-2021 proparacaine 0.5 % 1 Drop (A LCAINE) propylene glycol 6 mg/ml ophthalmic solution (20 sources) Start: 07-28-2021 take 0.6 drop(s) into the eye(s) once daily as needed Propylene Glycol (Systane Balance) 0.6 % drops Active 1 NMA OPHTHALMIC DAILY as needed for lubricant July 28, 2021 12:00am Start: 07-28-2021 take 0.6 drop(s) int o the eye(s) once daily Propylene Glycol (Systane Balance) 0.6 % drops Active 1 DRP OPHTHALMIC DAILY July 28, 2021 12:00am Start: 05-16-2021 propylene glyc oL (SYSTANE COMPLETE) 0.6 % drop Use 1 Drop in both eyes four times daily. 05/16/2021 Active Start: 05-16-2021 propylene glyc oL (SYSTANE COMPLETE) 0.6 % drop Use 1 Drop in both eyes four times daily. 0 05/16/2021 Active Propylene Glycol (Systane Balance) 0.6 % Solution Place 1 drop in both eyes daily. Active Comment on above: Use 1 Drop in both e yes four times daily. sennosides, prison 8.6 mg oral tablet (12 sources) Start: 04-20-19 End: 06-22-19 take 1 tablet by mouth once daily as needed for constipation senna 8.6 MG tablet Take 1 tablet by mouth daily as needed for Constipation. 04/20/2021 Active sirolimus 0.5 mg oral tablet (20 sources) Kinase Inhibitor, mTOR Inhibitor Immunosuppressant Start: 01-31-20 take 1 tablet by mouth once daily Sirolimus 0.5 mg tablet Active 1 mg PO DAILY January 30, 2022 12:00am Start: 01-30-2022 take 1 mg by mouth once daily Sirolimus Active 1 MG PO DAILY January 30, 2022 12:00am Start: 09-20-2021 take 1.5 mg by mouth once gonzález y Sirolimus Active 1.5 MG PO DAILY September 20, 2021 12:00am Start: 08-04-2021 End: 10-29-2024 take 2 tablets by mouth once daily sirolimus (RAPAMUNE) 0.5 mg tablet Take 1 mg by mouth once daily. 08/04/2021 Active Start: 08-04-2021 take 3 tablets by mo uth once daily sirolimus (RAPAMUNE) 0.5 mg tablet Take 3 tablets by mouth once daily. 0 08/04/2021 Active Start: 07-13-2021 End: 01-07-2022 sirolimus (RAPAMUNE) 1 mg ta blet Comment on above: Take 3 tablets by mo uth once daily. Take 1 mg by mouth o nce daily. sulfamethoxazole 800 mg / trimethoprim 160 mg oral tablet (20 sources) Dihydrofolate Reductase Inhibitor Antibacterial, Sulfonamide Antimicrobial Start: 3 End: 4 take 1 tablet by mouth once at dinner Sulfamethoxazo le-trimethopri m 800-160 MG per tablet Take 1 tablet by mouth every Sunday, Sunday, Sunday dinner. 12 tablet 11 12/20/2022 12/21/2023 Active Start: 09-19-2021 take 1.5 tablets by mouth every other day Sulfamethoxazole-Trimethoprim Active 1.5 TABLET PO .QOD September 19, 2021 10:05am Start: 07-28-2021 End: 09-19-2021 Sulfamethoxazole-Trimethopri m 800-160 mg tablet Discontinued NMA PO July 28, 2021 12:00am September 19, 2021 10:08am Start: 07-28-2021 End: 09-19-2021 Sulfamethoxazole-Trimethopri m Discontinued TAB PO July 28, 2021 12:00am September 19, 2021 10:08am Start: 04-15-2021 End: 08-01-2023 Sulfamethoxazole-Trimethopri m 800-160 mg tablet Active 1.5 {tbl} PO .QOD September 19, 2021 10:05am End: 01-07-2022 sulfamethoxazole-trimethopri m (BACTRIM DS,SEPTRA DS) 800-160 mg per tablet Take by mouth twice daily. Active Comment on above: Take by mouth twice daily. tamsulosin hydrochloride 0.4 mg oral capsule (20 sources) alpha-Adrenergic Siddhartha Start: 0 End: take 1 capsule by mouth once daily at bedtime tamsulosin (FLOMAX) 0.4 mg TAKE 1 CAPSULE BY MOUTH EVERYDAY AT BEDTIME 03/22/2020 Active Comment on above: TAKE 1 CAPSULE BY [facility] EVERYDAY AT BEDTIME 12 hr timolol 5 mg/ml ophthalmic solution (20 sources) beta-Adrenergic Siddhartha Start: 5 End: 5 timolol maleate (TIMOPTIC) 0.5 % ophthalmic solution Use 1 drop in both eyes two times a day. 10 mL 3 09/24/2024 Active Start: 04-11-2024 End: 05-23-2024 timolol maleate (TIMOPTIC) 0 .5 % ophthalmic solution USE 1 DROP IN BOTH EYES EVERY MORNING. 10 mL 2 04/11/2024 05/23/2024 Discontinued Start: 09-11-2023 End: 04-11-2024 timolol maleate (TIMOPTIC) 0 .5 % ophthalmic solution Use 1 Drop in both eyes two times a day. Use 1 drop in both eyes at 8 am and 6 pm 10 mL 2 11/12/2023 04/11/2024 Discontinued Start: 05-07-2023 take 0.5 drop(s) int o the eye(s) once daily Timolol 0.5 % drops Active 1 NMA OPHTHALMIC DAILY May 07, 2023 1:00am Start: 05-07-2023 Timolol Active 1 DRP OPHTHALMIC DAILY May 07, 2023 1:00am Start: 05-07-2023 Timolol Active 1 DRP OPHTHALMIC DAILY May 07, 2023 12:00am Start: 03-09-2023 End: 09-11-2023 timolol maleate (TIMOPTIC) 0 .5 % ophthalmic solution Use 1 Drop in both eyes every morning. Use 1 drop in both eyes at 8 am and 6 pm 10 mL 2 09/11/2023 09/11/2023 Discontinued Start: 10-09-2022 timolol maleat e (TIMOPTIC) 0.5 % ophthalmic solution Use 1 Drop in both eyes every morning. 5 mL 3 10/09/2022 Active Start: 08-23-2022 End: 10-09-2022 timolol maleate (TIMOPTIC) 0 .5 % ophthalmic solution Use 1 Drop in both eyes every morning. 5 mL 3 10/09/2022 Active Start: 06-19-2022 End: 08-01-2022 timolol maleate (TIMOPTIC) 0 .5 % ophthalmic solution Use 1 Drop in both eyes every morning. 5 mL 1 06/19/2022 08/01/2022 Discontinued Start: 06-19-2022 End: 08-01-2022 timolol maleate (TIMOPTIC) 0 .5 % ophthalmic solution USE 1 DROP IN BOTH EYES EVERY MORNING. 5 mL 1 08/01/2022 Active Start: 12-12-2021 End: 01-13-2022 timolol maleate (TIMOPTIC) 0 .5 % ophthalmic solution Use 1 Drop in the right eye twice daily. Use 1 drop 8 AM and 6 PM in right eye 0 12/12/2021 01/13/2022 Discontinued (Clinical Decision) Start: 02-19-2021 End: 05-16-2021 timolol maleate (TIMOPTIC) 0 .5 % ophthalmic solution Use 1 Drop in both eyes every morning. Use at 10:00 AM 02/19/2021 05/16/2021 Discontinued (Changing Therapy/Dosage Form) Comment on above: Use 1 Drop in the ri ght eye twice daily. Use 1 drop 8 AM and 6 PM in right eye Use 1 Drop in both e yes every morning. traMADol hydrochloride 50 mg oral tablet (6 sources) Opioid Agonist Start: 12-11-2023 End: 12-18-2023 take 1 tablet by mouth every eight hours as needed for pain traMADol (ULTRAM) 50 mg tablet Indications: Chronic midline low back pain without sciatica , Lumbar paraspinal muscle spasm Take 1 tablet by mouth every 8 hours as needed for pain for up to 7 days. 30 tablet 12/11/2023 12/18/2023 Active Start: 07-24-2022 End: 07-29-2022 take 1 tablet by mouth every six hours as needed for pain traMADol (ULTRAM) 50 mg tablet Indications: Left hand pain Take 1 tablet by mouth every 6 hours as needed for pain for up to 5 days. 20 tablet 07/24/2022 07/29/2022 Start: 06-17-2021 End: 06-17-2021 traMADol (ULTRAM) tablet 50 mg Comment on above: Take 1 tablet by [place] every 6 hours as needed for pain for up to 5 days. tropicamide 10 mg/ml ophthalmic solution (5 sources) Anticholinergic Start: 05-23-2024 End: 05-24-2024 tropicamide 1 % 1 Drop (MYDRIACYL) Start: 09-11-2023 End: 09-12-2023 tropicamide 1 % 1 Drop (MYDR IACYL) Start: 10-09-2022 End: 10-09-2022 tropicamide 1 % 1 Drop (MYDR IACYL) Start: 11-07-2021 End: 11-08-2021 tropicamide 1 % 1 Drop (MYDR IACYL) Completed/Discontinued Medications Medication Drug Class(es) Dates Sig (Normalized) Sig (Original) acetaminophen 325 mg oral tablet (6 sources) Start: 06-12-2021 End: 06-21-2021 take 1 tablet by mouth every six hours as needed acetaminophen (TYLENOL) tablet 650 mg Start: 04-14-2021 take 2 tablets by mo [facility] every six hours as needed acetaminophen 325 MG tablet Take 2 tablets by mouth every 6 hours as needed for Mild Pain or Pain (breakthrough). 04/14/2021 Active acetaminophen 325 mg / HYDROcodone bitartrate 5 mg oral tablet (20 sources) Opioid Agonist Start: 01-01-2020 End: 01-03-2020 Hydrocodone-Acetaminophen 1 TABLET tablet Discontinued 1 - 2 {tbl} PO EVERY 4 HOURS NEEDED as needed for Pain Score 1-10/10 5 2 January 01, 2020 January 02, 2020 12:00am January 03, 2020 12:03am Start: 01-01-2020 End: 01-03-2020 take 1 tablet by mouth every four hours as needed Hydrocodone-Acetaminophen Discontinued 1 - 2 TABLET PO EVERY 4 HOURS NEEDED 5 2 January 01, 2020 January 03, 2020 12:03am Start: 07-28-2019 End: 07-30-2019 Hydrocodone-Acetaminophen 1 TABLET tablet Discontinued 1 {tbl} PO EVERY 6 HOURS NEEDED as needed for Pain 5 2 July 28, 2019 July 29, 2019 12:00am July 30, 2019 12:02am Start: 07-28-2019 End: 07-30-2019 take 1 tablet by mouth every six hours as needed Hydrocodone-Acetaminophen Discontinued 1 TABLET PO EVERY 6 HOURS NEEDED 5 2 July 28, 2019 July 30, 2019 12:02am acetaminophen 325 mg / oxyCODONE hydrochloride 5 mg oral tablet (20 sources) Opioid Agonist Start: 09-24-2020 End: 11-25-2020 Oxycodone-Acetaminophen 1 TABLET tablet Discontinued 1 {tbl} PO EVERY 6 HOURS NEEDED as needed for Pain 12 3 September 24, 2020 November 25, 2020 2:43pm Start: 09-24-2020 End: 11-25-2020 take 1 tablet by mouth every six hours as needed Oxycodone-Acetaminophen Discontinued 1 TABLET PO EVERY 6 HOURS NEEDED 12 3 September 24, 2020 November 25, 2020 2:43pm End: 01-07-2022 oxyCODONE-acetaminophen (PER COCET) 5-325 mg tablet Take by mouth every 8 hours as needed for pain. 01/07/2022 Discontinued (Discontinued by another Health Care Provider) Comment on above: Take by mouth every 8 hours as needed for pain. [id number] 200 actuat albuterol 0.09 mg/actuat metered dose inhaler (20 sources) beta2-Adrenergic Agonist Start: 06-12-2021 End: 06-21-2021 take 2 puff(s) by inhalation every six hours as needed 2 puff, Inhalation, EVERY 6 HOURS NEEDED, Starting on 06/12/21 at 0145, Until Tu06/21/21 at 1627, Shortness of Breath Wait at least one(1) full minute between inhalations Start: 12-30-2019 End: 09-11-2023 take 2 puff(s) by inhalation every six hours as needed for wheezing albuterol HFA (PROVENTIL HFA, VENTOLIN HFA) 90 mcg/actuation inhaler Inhale 2 Puffs as instructed every 6 hours as needed for wheezing/shortness of breath. 36 g 2 05/10/2022 10/12/2022 Discontinued Start: 07-24-2019 Albuterol Sulf ate 1 PUFF inhaler Active 1 - 2 NMA INHALATION EVERY 6 HOURS NEEDED as needed for Wheezing July 24, 2019 12:00am Start: 07-24-2019 take 1 puff(s) by in halation every six hours as needed Albuterol Sulfate Active 1 - 2 PUFF INHALATION EVERY 6 HOURS NEEDED July 24, 2019 12:00am take 1-2 puff(s) by inhalation every six hours as needed albuterol 108 (90 Base) MCG/ACT Aero Soln inhaler Inhale 1-2 puffs every 6 hours as needed for Shortness of Breath. Active Comment on above: Inhale 2 Puffs as in structed every 6 hours as needed for wheezing/shortness of breath. aluminum hydroxide 40 mg/ml / magnesium hydroxide 40 mg/ml / simethicone 4 mg/ml oral suspension (1 source) Start: End: take 30 mL by mouth every six hours as needed alum/mag hydrox.-simethicone oral suspension 30 mL calamine 76 mg/ml / zinc oxide 76 mg/ml topical lotion (1 source) Start: End: Calamine-Zinc Oxide 8-8 % lotion 1 Application cephalexin 500 mg oral capsule (16 sources) Cephalosporin Antibacterial Start: 023 End: take 1 capsule by mouth three times daily cephALEXin (KEFLEX) 500 mg capsule Take 1 capsule by mouth three times daily. 07/24/2022 04/06/2023 Discontinued (Course of therapy completed) Start: 05-10-2022 End: 05-20-2022 take 1 capsule by mouth twice daily cephALEXin (KEFLEX) 500 mg capsule Indications: URI, acute Take 1 capsule by mouth twice daily for 10 days. 20 capsule 0 05/10/2022 05/20/2022 Active Comment on above: Take 1 capsule by mo [facility] twice daily for 10 days. Take 1 capsule by mo [facility] three times daily. dexamethasone 0.001 mg/mg / neomycin 0.0035 mg/mg / polymyxin b 10 unt/mg ophthalmic ointment (1 source) Aminoglycoside Antibacterial, Polymyxin-class Antibacterial, Corticosteroid Start: 02-20-20 End: 05-16-19 neomycin/polymyxin b/dexametha(MAXITROL 3.5 MG/G-10,000 UNIT/G-0.1 % EYE OINTMENT) Use 1 application in the left eye daily at bedtime. 02/19/2021 05/16/2021 Discontinued (Course of therapy completed) dextrose 50% injection 7.5-25 g (1 source) Start: 06-13-19 End: 06-22-19 dextrose 50% injection 7.5-25 g dorzolamide 20 mg/ml / timolol 5 mg/ml ophthalmic solution (19 sources) Carbonic Anhydrase Inhibitor, beta-Adrenergic Siddhartha Start: 05-16-19 End: 12-13-19 dorzolamide-timolol (COSOPT) 22.3-6.8 mg/mL ophthalmic solution Use 1 Drop in both eyes twice daily. Use at 9 AM and 3 PM 0 05/16/2021 12/12/2021 Discontinued (Clinical Decision) Comment on above: Use 1 Drop in both e yes twice daily. Use at 9 AM and 3 PM doxycycline hyclate 100 mg oral tablet (6 sources) Tetracycline-class Drug Start: 07-26-19 End: 08-02-19 take 1 tablet by mouth twice daily doxycycline (VIBRA-TABS) 100 mg tablet Take 1 tablet by mouth two times a day for 7 days. 14 tablet 0 07/26/2023 08/02/2023 Start: 06-10-2023 End: 06-15-2023 take 1 tablet by mouth twice daily doxycycline (VIBRA-TABS) 100 mg tablet Take 1 tablet by mouth two times a day for 5 days. 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 20 tablet 0 11/08/2022 11/18/2022 Active Comment on above: Take 1 tablet by [place] th twice daily for 5 days. Take 1 tablet by [place] th twice daily for 10 days. Take 1 tablet by [place] th two times a day for 5 days. enalapril maleate 20 mg oral tablet (20 sources) Angiotensin Converting Enzyme Inhibitor Start: 8 End: 0 take 1 tablet by mouth once daily Enalapril Maleate 20 mg tablet Discontinued 20 mg PO DAILY March 07, 2018 1:00am June 16, 2019 2:26pm Start: 01-26-2013 End: 03-07-2018 take 1 tablet by mouth once daily Enalapril Maleate 5 MG tablet Discontinued 5 mg PO DAILY January 26, 2013 12:00am March 07, 2018 3:35pm Flash Glucose Sensor (Freest yle Maikol 14 Day Sensor) kit (20 sources) Start: 03-20-2018 End: 02-12-2020 Flash Glucose Sensor (Freest yle Maikol 14 Day Sensor) kit Discontinued 0 .ROUTE .MEDSUPPLY March 20, 2018 4:04pm February 12, 2020 10:47am apply to back of arm to moniter BG. change q 14 days Start: 03-20-2018 End: 02-12-2020 Flash Glucose Sensor (Freest yle Maikol 14 Day Sensor) kit Discontinued 0 .ROUTE .MEDSUPPLY March 20, 2018 5:04pm February 12, 2020 11:47am apply to back of arm to moniter BG. change q 14 days Start: 03-20-2018 End: 03-20-2018 Flash Glucose Sensor (Freest yle Maikol 14 Day Sensor) kit Discontinued 0 .ROUTE .MEDSUPPLY March 20, 2018 1:45pm March 20, 2018 4:04pm apply to back of arm to moniter BG. change q 14 days Start: 03-20-2018 End: 03-20-2018 Flash Glucose Sensor (Freest yle Maikol 14 Day Sensor) kit Discontinued 0 .ROUTE .MEDSUPPLY March 20, 2018 2:45pm March 20, 2018 5:04pm apply to back of arm to moniter BG. change q 14 days Start: 03-20-2018 End: 03-20-2018 Flash Glucose Sensor (Freest yle Maikol 14 Day Sensor) kit Discontinued 0 .ROUTE .MEDSUPPLY March 20, 2018 12:00am March 20, 2018 1:45pm apply to back of arm to moniter BG. change q 14 days Start: 03-20-2018 End: 03-20-2018 Flash Glucose Sensor (Freest yle Maikol 14 Day Sensor) kit Discontinued 0 .ROUTE .MEDSUPPLY March 20, 2018 1:00am March 20, 2018 2:45pm apply to back of arm to moniter BG. change q 14 days gentamicin 1 mg/ml topical cream (20 sources) Start: 05-17-2020 End: 01-07-2022 gentamicin 0.1% 0.1 % cream Apply to affected area. 05/17/2020 01/07/2022 Discontinued (Discontinued by another Health Care Provider) Comment on above: Apply to affected ar ea. 0.2 ml glucagon 5 mg/ml auto-injector (20 sources) Antihypoglycemic Agent Start: 07-28-2021 End: 07-24-2023 Glucagon 1 mg/0.2 mL auto-injector Discontinued 1 mg SC ONCE as needed for hypoglycemic July 28, 2021 12:00am July 24, 2023 2:20pm as a single dose; may repeat once after 15 minutes if no response Start: 07-28-2021 Glucagon Activ e 1 MG SC ONCE July 28, 2021 12:00am as a single dose; may repeat once after 15 minutes if no response Start: 05-31-2010 Glucagon, rDNA , 1 MG IJ KIT Indications: Type 1 diabetes mellitus complicating , antepartum by Subcutaneous route. Use as directed 1 Kit 5 05/31/2010 Active Glucagon, rDNA, (Glucagon Emergency) 1 MG Kit Inject 1 Dose as directed as needed (Low glucose levels.). Active Gum Dimwig-Budaad-AJvl-Alcoh ol (MASTISOL ADHESIVE) dpet (20 sources) Start: 10-09-2020 End: 05-10-2024 Gum Uxbpmj-Keucup-EEkw-Alcoh ol (MASTISOL ADHESIVE) dpet 1 application as directed. 48 Each 3 10/09/2020 05/10/2024 Discontinued (Other) Start: 10-09-2020 Gum [place] tf[place]-KQmp-Qlzccjm (MASTISOL ADHESIVE) dpet 1 application as directed. 48 Each 3 10/09/2020 Active Comment on above: 1 application as dir ected. 1 ml heparin sodium, porcine 5000 unt/ml prefilled syringe (2 sources) Unfractionated Heparin, Anti-coagulant Start: 06-18-2021 End: 06-21-2021 heparin injection 5,000 Units Start: 06-12-2021 End: 06-16-2021 heparin injection 5,000 Unit s hydrALAZINE hydrochloride 25 mg oral tablet (1 source) Arteriolar Vasodilator Start: 06-13-2021 End: 06-21-2021 take 1 tablet by mouth every six hours as needed hydrALAZINE (APRESOLINE) tablet 25 mg insulin aspart (NovoLOG) CSII infusion pump (1 source) Start: 06-20-2021 End: 06-21-2021 insulin aspart (NovoLOG) CSII infusion pump insulin aspart, human 100 unt/ml injectable solution (20 sources) Insulin Analog Start: 07-18-2021 End: 02-14-2024 Insulin Aspart U-100 (Novolog U-100 Insulin Aspart) 100 unit/mL solution Discontinued 120 U continuous subcutaneous infusion .continuous 108 June 04, 2023 1:37pm February 14, 2024 6:16pm via insulin pump Start: 12-13-2020 End: 07-18-2021 Insulin Aspart U-100 (Novolo g U-100 Insulin Aspart) 100 unit/mL solution Discontinued 120 U SC DAILY December 13, 2020 2:40pm July 18, 2021 1:58pm via insulin pump Start: 04-12-2020 End: 12-13-2020 Insulin Aspart U-100 (Novolo g U-100 Insulin Aspart) 100 unit/mL solution Discontinued 100 U SC DAILY April 12, 2020 12:36pm December 13, 2020 2:44pm via insulin pump Start: 04-12-2020 End: 04-12-2020 Insulin Aspart U-100 (Novolo g U-100 Insulin Aspart) 100 unit/mL solution Discontinued 100 U SC THREE TIMES A DAY April 12, 2020 1:00am April 12, 2020 12:36pm via insulin pump Start: 03-11-2020 End: 04-12-2020 Insulin Aspart U-100 100 UNI T/ML insulin pen Discontinued 18 U SC THREE TIMES A DAY March 11, 2020 2:20pm April 12, 2020 9:30am Start: 02-12-2020 End: 03-11-2020 Insulin Aspart U-100 (Novolo g Flexpen U-100 Insulin) 100 unit/mL (3 mL) insulin pen Discontinued 12 U SC THREE TIMES A DAY 36 February 12, 2020 1:00am March 11, 2020 2:21pm Start: 01-07-2016 End: 03-07-2018 Insulin Aspart U-100 100 UNI TS/ML insulin pen Discontinued 8 - 14 U SC 3 TIMES DAILY WITH MEALS January 07, 2016 12:00am March 07, 2018 3:35pm Please contact the information source for Protocol details. 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 7 Vial 3 10/24/2011 Active 3 ml insulin detemir 100 unt/ml pen injector (20 sources) Insulin Analog Start: 03-11-2020 End: 04-12-2020 Insulin Detemir U-100 100 UNIT/ML insulin pen Discontinued 36 U SC AT BEDTIME March 11, 2020 2:20pm April 12, 2020 9:30am Start: 02-12-2020 End: 03-11-2020 Insulin Detemir U-100 100 un it/mL (3 mL) insulin pen Discontinued 30 U SC AT BEDTIME February 12, 2020 12:14pm March 11, 2020 2:21pm Start: 07-24-2019 End: 02-12-2020 Insulin Detemir U-100 100 UN ITS/ML insulin pen Discontinued 36 U SC AT BEDTIME July 24, 2019 12:00am February 12, 2020 12:14pm Start: 07-24-2019 End: 02-12-2020 Insulin Detemir U-100 Discon tinued 36 UNITS SC AT BEDTIME July 24, 2019 12:00am February 12, 2020 12:14pm Start: 04-07-2019 insulin detemi r U-100 (LEVEMIR FLEXTOUCH U-100 INSULN) 100 unit/mL (3 mL) inpn injection Indications: 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 30 Pen 1 04/07/2019 Active Start: 03-07-2018 End: 06-29-2018 Insulin Detemir U-100 (Levem ir Flextouch U-100 Insuln) 100 unit/mL (3 mL) insulin pen Discontinued 36 U SC DAILY June 27, 2018 12:31pm June 29, 2018 11:01am Start: 03-07-2018 End: 03-07-2018 Insulin Detemir U-100 (Levem ir Flextouch U-100 Insuln) 100 unit/mL (3 mL) insulin pen Discontinued 31 U SC DAILY March 07, 2018 1:00am March 07, 2018 4:06pm Start: 05-20-2016 End: 03-07-2018 Insulin Detemir U-100 100 UN ITS/ML insulin pen Discontinued 32 U SC DAILY May 20, 2016 1:00am March 07, 2018 3:36pm Start: 05-20-2016 End: 03-07-2018 Insulin Detemir U-100 Discon tinued 32 UNITS SC DAILY May 20, 2016 1:00am March 07, 2018 3:36pm Comment on above: INJECT 36 UNITS SUBC UTANEOUSLY DAILY AT BEDTIME. insulin glargine 100 unt/ml injectable solution (14 sources) Insulin Analog Start: 01-07-2016 End: 03-07-2018 Insulin Glargine 100 UNIT/ML solution Discontinued 31 U SC DAILY January 07, 2016 12:00am March 07, 2018 3:36pm insulin lispro 100 unt/ml injectable solution (20 sources) Insulin Analog Start: 10-19-2022 End: 02-14-2024 Insulin Lispro (Humalog U-100 Insulin) 100 unit/mL solution Discontinued 120 U SC DAILY October 19, 2022 12:00am February 14, 2024 6:16pm via insulin pump Start: 06-18-2021 End: 06-18-2021 insulin lispro (HumaLOG) inj ection 6 Units Start: 06-17-2021 End: 06-17-2021 insulin lispro (HumaLOG) inj ection 10 Units Start: 04-12-2020 End: 04-12-2020 Insulin Lispro (Humalog U-10 0 Insulin) 100 unit/mL solution Discontinued 100 U SC DAILY April 12, 2020 1:00am April 12, 2020 11:12am via insulin pump Start: 06-27-2018 End: 02-12-2020 Insulin Lispro (Humalog Kwik pen Insulin) 100 unit/mL insulin pen Discontinued 0 SC THREE TIMES A DAY June 29, 2018 11:00am February 12, 2020 12:15pm 1/10 ratio at breakfast and supper, 1/12 ratio at lunch; up to 40 units qd SC TID; 1/10 ratio at breakfast and supper, 1/12 ratio at lunch SC TID; Start: 03-07-2018 End: 06-27-2018 Insulin Lispro (Humalog Kwik pen Insulin) 100 unit/mL insulin pen Discontinued 0 SC THREE TIMES A DAY March 07, 2018 4:06pm June 27, 2018 12:36pm 1/10 ratio at breakfast and supper, 1/12 ratio at lunch SC TID; Start: 03-07-2018 End: 06-27-2018 Insulin Lispro (Humalog Kwik pen Insulin) 100 unit/mL insulin pen Discontinued 0 SC THREE TIMES A DAY March 07, 2018 4:06pm June 27, 2018 12:36pm 1/10 ratio at breakfast and supper, 1/12 ratio at lunch SC TID; Start: 03-07-2018 End: 03-07-2018 Insulin Lispro (Humalog Kwik pen Insulin) 100 unit/mL insulin pen Discontinued 5 U SC THREE TIMES A DAY March 07, 2018 1:00am March 07, 2018 4:06pm insulin lispro (HumaLOG) injection (1 source) Start: 06-12-2021 End: 06-13-2021 insulin lispro (HumaLOG) injection 24 hr isosorbide mononitrate 30 mg extended release oral tablet (20 sources) Nitrate Vasodilator Start: 04-22-2020 End: 07-21-2020 take 1 tablet by mouth once daily, then take 1 tablet by mouth every twenty-four hours Isosorbide Mononitrate 30 mg tablet extended release 24 hr Discontinued 30 mg PO DAILY April 22, 2020 5:01pm July 21, 2020 5:20pm Start: 01-08-2020 End: 04-22-2020 take 1 tablet by mouth twice daily, then take 1 tablet by mouth every twenty-four hours Isosorbide Mononitrate 30 mg tablet extended release 24 hr Discontinued 30 mg PO TWICE A DAY January 08, 2020 8:50am April 22, 2020 5:05pm Start: 01-01-2020 End: 01-08-2020 take 1 tablet by mouth once daily, then take 1 tablet by mouth every twenty-four hours Isosorbide Mononitrate 30 mg tablet extended release 24 hr Discontinued 30 mg PO DAILY January 01, 2020 12:00am January 08, 2020 8:50am Start: 10-16-2019 End: 11-27-2019 take 1 tablet by mouth twice daily, then take 1 tablet by mouth every twenty-four hours Isosorbide Mononitrate 30 mg tablet extended release 24 hr Discontinued 30 mg PO TWICE A DAY October 16, 2019 4:09pm November 27, 2019 3:57pm Start: 10-07-2019 End: 10-16-2019 take 1 tablet by mouth once daily, then take 1 tablet by mouth every twenty-four hours Isosorbide Mononitrate 30 mg tablet extended release 24 hr Discontinued 30 mg PO DAILY October 07, 2019 4:47pm October 16, 2019 4:10pm latanoprost 0.05 mg/ml ophthalmic solution (20 sources) Prostaglandin Analog Start: 05-16-2021 End: 12-12-2021 take 1 drop(s) into the eye(s) once daily at bedtime latanoprost (XALATAN) 0.005 % ophthalmic solution Use 1 Drop in both eyes daily at bedtime. Use at 10:00 PM 0 05/16/2021 12/12/2021 Discontinued (Clinical Decision) Start: 02-19-2021 End: 05-16-2021 latanoprost (XELPROS) 0.005 % ophthalmic emulsion Use 1 Drop in both eyes daily at bedtime. 02/19/2021 05/16/2021 Discontinued (Changing Therapy/Dosage Form) Comment on above: Use 1 Drop in both e yes daily at bedtime. Use at 10:00 PM melatonin 3 mg oral tablet (1 source) Start: 06-12-2021 End: 06-21-2021 melatonin tablet 6 mg metoprolol tartrate 100 mg oral tablet (20 sources) beta-Adrenergic Siddhartha Start: 12-30-2019 End: 01-07-2022 take 1 tablet by mouth once daily metoprolol tartrate, short acting, (LOPRESSOR) 100 mg tablet Take 1 tablet by mouth once daily. 90 tablet 3 12/30/2019 01/07/2022 Discontinued (Discontinued by another Health Care Provider) Start: 06-16-2019 End: 11-27-2019 take 1 tablet by mouth once daily Metoprolol Tartrate 100 mg tablet Discontinued 100 mg PO DAILY June 16, 2019 12:00am November 27, 2019 11:47am Start: 01-26-2013 End: 03-07-2018 take 1 tablet by mouth twice daily Metoprolol Tartrate 25 MG tablet Discontinued 25 mg PO TWICE A DAY January 26, 2013 12:00am March 07, 2018 3:36pm Comment on above: Take 1 tablet by [place] th once daily. moxifloxacin 5 mg/ml ophthalmic solution (14 sources) Quinolone Antimicrobial Start: 06-09-19 End: 08-17-19 Moxifloxacin 0.5 % drops Discontinued 2 NMA EACH EYE TWICE A DAY June 08, 2021 1:00am August 16, 2022 1:51pm NEPHRO-SOMMER 0.8 mg tab (20 sources) Start: 04-02-19 End: 01-08-20 take 1 tablet by mouth once daily NEPHRO-SOMMER 0.8 mg tab Take 1 tablet by mouth once daily. 04/02/2020 01/07/2022 Discontinued (Discontinued by another Health Care Provider) Start: 04-02-2020 End: 01-07-2022 take 1 tablet by mouth once daily NEPHRO-SOMMER 0.8 mg tab Take 1 tablet by mouth once daily. 0 04/02/2020 01/07/2022 Discontinued (Discontinued by another Health Care Provider) Start: 04-02-2020 take 1 tablet by [place] th once daily NEPHRO-SOMMER 0.8 mg tab Take 1 tablet by mouth once daily. 0 04/02/2020 Active Comment on above: Take 1 tablet by [place] once daily. nystatin 201816 unt/ml oral suspension (20 sources) Polyene Antifungal Start: 11-20-2022 nystatin (MYCOSTATIN) 100,000 unit/mL suspension Take 5 mL by mouth four times daily. 1tsp swish in mouth for several minutes, then swallow (or expectorate) 4 times daily until gone. 200 mL 0 11/20/2022 Active End: 01-07-2022 take 5 mL by mouth four times daily nystatin (MYCOSTATIN) 100,000 unit/mL susp Take 5 mL by mouth four times daily. Swish and swallow. 01/07/2022 Discontinued Comment on above: Take 5 mL by mouth f our times daily. Swish and swallow. Take 5 mL by mouth f our times daily. 1tsp swish in mouth for several minutes, then swallow (or expectorate) 4 times daily until gone. omeprazole 20 mg delayed release oral tablet (2 sources) Proton Pump Inhibitor End: take 1 tablet by mouth once daily as needed omeprazole (PriLOSEC OTC) [address] tablet Take 1 tablet by mouth daily as needed. 11/06/2023 Discontinued (Therapy completed) ondansetron 4mg/2ml (ZOFRAN) injection 4 mg (1 source) Start: End: take 4 mg intravenously every six hours as needed ondansetron 4mg/2ml (ZOFRAN) injection 4 mg polyvinyl alcohol 0.014 ml/ml / povidone 6 mg/ml ophthalmic solution (1 source) Start: End: Polyvinyl Alcohol-Povidone PF (REFRESH) ophthalmic solution 2 drop 1000 ml sodium chloride 9 mg/ml injection (1 source) Start: End: sodium chloride 0.9% IV solution 250 mL sodium zirconium cyclosilicate 13982 mg powder for oral suspension (1 source) Start: End: Sodium Zirconium Cyclosilicate (LOKELMA) powder 10 g Start: 06-18-2021 End: 06-18-2021 Sodium Zirconium Cyclosilica te (LOKELMA) powder 10 g sofosbuvir 400 mg / velpatasvir 100 mg oral tablet (20 sources) Hepatitis C Virus NS5A Inhibitor, Hepatitis C Virus Nucleotide Analog NS5B Polymerase Inhibitor Start: 04-19-2021 End: 01-07-2022 sofosbuvir-velpatasvir 400-100 mg Take by mouth. 0 04/19/2021 01/07/2022 Discontinued (Discontinued by another Health Care Provider) Start: 04-19-2021 End: 06-21-2021 take 1 tablet by mouth once daily sofosbuvir-velpatasvir 400-100 MG tablet Take 1 tablet by mouth daily. 28 tablet 2 04/19/2021 Active Comment on above: Take by mouth. [id number] LAPREV ORAL (20 sources) End: 01-07-2022 [id number] EV ORAL Take by mouth. 400-100 daily 01/07/2022 Discontinued (Discontinued by another Health Care Provider) End: 01-07-2022 [id number] EV ORAL Take by mouth. 400-100 daily 0 01/07/2022 Discontinued (Discontinued by another Health Care Provider) SOFOSBUVIR-VELPA TAS-VOXILAPREV ORAL Take by mouth. 400-100 daily 0 Active Comment on above: Take by mouth. 400-1 00 daily sucroferric oxyhydroxide 500 mg chewable tablet (20 sources) Start: 03-11-2020 End: 04-22-2020 take 1 tablet by mouth three times daily Sucroferric Oxyhydroxide 500 MG tablet,chewable Discontinued 1000 mg PO THREE TIMES A DAY March 11, 2020 1:00am April 22, 2020 5:05pm Start: 03-11-2020 End: 04-22-2020 take 1000 mg by mouth three times daily Sucroferric Oxyhydroxide Discontinued 1000 MG PO THREE TIMES A DAY March 11, 2020 1:00am April 22, 2020 5:05pm End: 01-07-2022 take 1500 mg by mouth at mealtime sucroferric oxyhydroxide (VELPHORO ORAL) Take 1,500 mg PE by mouth w MEALS. 01/07/2022 Discontinued (Discontinued by another Health Care Provider) End: 01-07-2022 take 1500 mg by mouth at mealtime sucroferric oxyhydroxide (VELPHORO ORAL) Take 1,500 mg PE by mouth w MEALS. 0 01/07/2022 Discontinued (Discontinued by another Health Care Provider) take 1500 mg by mout h at mealtime sucroferric oxyhydroxide (VELPHORO ORAL) Take 1,500 mg PE by mouth w MEALS. 0 Active Comment on above: Take 1,500 mg PE by mouth w MEALS. tacrolimus 1 mg oral capsule (20 sources) Calcineurin Inhibitor Immunosuppressant Start: 06-16-2021 End: 06-17-2021 tacrolimus (PROGRAF) capsule 2 mg Start: 06-12-2021 End: 06-15-2021 take 3 mg by mouth every twenty-four hours tacrolimus (PROGRAF) susp 3 mg Start: 06-12-2021 End: 06-15-2021 tacrolimus (PROGRAF) susp 4 mg Start: 06-10-2021 End: 06-21-2021 tacrolimus (PROGRAF) 1 MG ca psule Take 4 capsules by mouth daily every morning AND 3 capsules every evening. Take at 0800 AM and 0800 PM. 210 capsule 11 06/10/2021 06/21/2021 Discontinued (Stop Taking at Discharge) Start: 06-08-2021 End: 09-19-2021 take 3 capsules by mouth twice daily Tacrolimus 1 mg capsule Discontinued 3 mg PO TWICE A DAY June 08, 2021 1:00am September 19, 2021 10:06am Start: 06-08-2021 End: 09-19-2021 take 3 mg by mouth twice daily Tacrolimus Discontinued 3 MG PO TWICE A DAY June 08, 2021 1:00am September 19, 2021 10:06am End: 01-07-2022 take 1 capsule by mouth twice daily tacrolimus IR (PROGRAF) 1 mg capsule Take 1 mg by mouth twice daily. 01/07/2022 Discontinued (Discontinued by another Health Care Provider) Comment on above: Take 1 mg by mouth t wice daily. valGANciclovir 450 mg oral tablet (20 sources) Start: take 900 mg by mouth once daily Valganciclovir Active 900 MG PO DAILY July 28, 2021 12:00am Start: 04-15-2021 End: 01-07-2022 valGANciclovir (VALCYTE) 450 mg tablet Take by mouth. 0 07/28/2021 01/07/2022 Discontinued (Discontinued by another Health Care Provider) Comment on above: Take 450 mg by mouth . 1 tablet every 48 hours Take by mouth. Vit B Comp No.3-Jyxob-G-Biotin (12 sources) Start: 03-11-2020 End: 09-19-2021 Vit B Comp No.0-Ripym-F-Biotin Discontinued 1 EACH PO DAILY March 11, 2020 12:00am September 19, 2021 9:07am Start: 03-11-2020 End: 09-19-2021 Vit B Comp No.7-Juudb-N-Biot in Discontinued 1 EACH PO DAILY March 11, 2020 1:00am September 19, 2021 10:07am Start: 03-11-2020 Vit B Comp No. 7-Pfzgi-F-Biotin Active 1 EACH PO DAILY March 11, 2020 1:00am Vit B Comp No.6-Odjqp-H-Biotin 1 EACH tablet (2 sources) Start: 03-11-2020 End: 09-19-2021 take 1 tablet by mouth once daily Vit B Comp No.6-Auwlr-F-Biotin 1 EACH tablet Discontinued 1 NMA PO DAILY March 11, 2020 1:00am September 19, 2021 10:07am Problems Active Problems Problem Classification Problem Date Documented Date Episodic/Chronic Abdominal pain (14 sources) Abdominal pain; Translations: [Unspecified abdominal pain] 09-15-2021 Episodic Acquired foot deformities (4 sources) Hammer toe; Translations: [Other hammer toe(s) (acquired), right foot] 12-25-2022 Chronic Acute and unspecified renal failure (20 sources) Injury of kidney; Translations: [Acute kidney failure, unspecified] Episodic Acute cerebrovascular disease (5 sources) Cerebral infarction; Translations: [Cerebral infarction, unspecified] Onset: 2 01-02-2022 Chronic Aortic; peripheral; and visceral artery aneurysms (20 sources) Dilatation of aorta; Translations: [Aortic ectasia, unspecified site] Onset: 4 05-24-2023 Chronic Cataract (20 sources) Bilateral pseudophakia; Translations: [Presence of intraocular lens] Onset: 4 Resolved: 6 04-01-2015 Chronic Chronic kidney disease (20 sources) Chronic kidney disease stage 3; Translations: [CKD (chronic kidney disease) stage 3, GFR 30-59 ml/min] Onset: 2 03-28-2021 Chronic Chronic obstructive pulmonary disease and bronchiectasis (20 sources) Acute exacerbation of chronic obstructive airways disease; Translations: [Chronic obstructive pulmonary disease with (acute) exacerbation] Onset: 4 07-19-2023 Chronic Chronic ulcer of skin (14 sources) Non-pressure chronic ulcer of other part of right foot with fat layer exposed; Translations: [Ulcer of other part of foot] Onset: 5 11-28-2022 Chronic Complication of device; implant or graft (16 sources) Disorder of transplanted kidney; Translations: [Other complication of kidney transplant] Onset: 1 Chronic Comment on above: Left upper extremity fistulogram with 6 x 20 mm cutting balloon angioplasty 04/05/20 Complication of device; implant or graft (20 sources) Mechanical complication of arteriovenous surgical fistula; Translations: [Other mechanical complication of surgically created arteriovenous fistula, initial encounter] Episodic Conduction disorders (14 sources) Incomplete right bundle branch block; Translations: [Unspecified right bundle-branch block] 04-22-2020 Chronic Coronary atherosclerosis and other heart disease (20 sources) Coronary arteriosclerosis; Translations: [Atherosclerotic heart disease of [place] coronary artery without angina pectoris] Onset: 2 07-25-2012 Chronic Coronary atherosclerosis and other heart disease (9 sources) Presence of coronary angioplasty implant and graft; Translations: [Percutaneous transluminal coronary angioplasty status] Onset: 2 Episodic Diabetes mellitus with complications (20 sources) Type 1 diabetes mellitus; Translations: [Type 1 diabetes mellitus with diabetic nephropathy] Onset: 3 Resolved: 7 12-23-2013 Chronic Diabetes mellitus without complication (20 sources) Diabetes mellitus; Translations: [Type 2 diabetes mellitus without complications] Onset: 1 03-27-2021 Chronic Diabetes mellitus without complication (20 sources) Hyperglycemia; Translations: [Other abnormal glucose] Onset: 5 06-08-2021 Episodic Diseases of white blood cells (1 source) B lymphocyte disorder; 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, unspecified] Chronic Disorders of lipid metabolism (20 sources) Hypercholesterolemia; Translations: [Pure hypercholesterolemia, unspecified] Onset: 3 07-25-2012 Chronic E Codes: Fall (7 sources) Fall; Translations: [Unspecified fall, sequela] Episodic Esophageal disorders (1 source) Gastro-esophageal reflux disease without esophagitis; Translations: [Gastro-esophageal reflux disease without esophagitis] Onset: 2 Chronic Essential hypertension (20 sources) Hypertensive disorder; Translations: [Essential (primary) hypertension] Onset: 3 07-25-2012 Chronic Fracture of upper limb (1 source) Closed fracture of base of fourth metacarpal; Translations: [Nondisplaced fracture of base of fourth metacarpal bone, left hand, initial encounter for closed fracture] 10-17-2022 Episodic Glaucoma (20 sources) Ocular hypertension, unspecified eye; Translations: [Ocular hypertension] Onset: 5 07-03-2014 Chronic Immunity disorders (20 sources) Immunosuppression; Translations: [Immunodeficiency, unspecified] Onset: 4 Chronic Intestinal infection (1 source) Enteritis due to rotavirus; Translations: [Rotaviral enteritis] 05-10-2024 Episodic Intracranial injury (6 sources) Concussion with no loss of consciousness; Translations: [Concussion without loss of consciousness, initial encounter] 07-27-2022 Episodic Malaise and fatigue (3 sources) Physical deconditioning; Translations: [Other malaise] Onset: 5 Episodic Mycoses (9 sources) Onychomycosis; Translations: [Tinea unguium] Onset: 5 Episodic Neoplasms of unspecified nature or uncertain behavior (20 sources) Polycythemia vera (clinical); Translations: [Polycythemia vera] Onset: 4 07-19-2023 Chronic Nutritional deficiencies (20 sources) Moderate protein energy malnutrition; Translations: [Moderate protein-calorie malnutrition] Onset: 3 09-22-2022 Chronic Nutritional deficiencies (4 sources) Cobalamin deficiency; Translations: [Deficiency of other specified B group vitamins] Onset: 5 09-17-2024 Episodic Osteoarthritis (1 source) Unspecified osteoarthritis, unspecified site; Translations: [Unspecified osteoarthritis, unspecified site] Onset: 2 Chronic Other aftercare (2 sources) Transplant follow-up; Translations: [Encounter for aftercare following other organ transplant] Chronic Other aftercare (3 sources) Encounter for aftercare following other organ transplant; Translations: [Encounter for aftercare following other organ transplant] Onset: 4 Chronic Other aftercare (1 source) Long-term current use of immunosuppressive drug; Translations: [Other continuous churn buttermaker (current) drug therapy] Episodic Other aftercare (1 source) Taking high risk medication; Translations: [Other continuous churn buttermaker (current) drug therapy] Episodic Other aftercare (1 source) Post-discharge follow-up; Translations: [Encounter for follow-up examination after completed treatment for conditions other than malignant neoplasm] Episodic Other aftercare (1 source) High risk drug monitoring status; Translations: [Encounter for follow-up examination after completed treatment for conditions other than malignant neoplasm] Episodic Other aftercare (1 source) Other continuous churn buttermaker (current) drug therapy; Translations: [On angiotensin receptor blockers (ARB)] Onset: 5 Episodic Other and ill-defined heart disease (20 sources) Left ventricular hypertrophy; Translations: [Cardiomegaly] Onset: 4 04-18-2023 Chronic Other and ill-defined heart disease (2 sources) Cardiomegaly; Translations: [Cardiomegaly] Onset: 4 Chronic Other and unspecified benign neoplasm (1 source) Benign neoplasm of soft tissue; Translations: [Melanocytic nevi, unspecified] 08-11-2024 Episodic Other and unspecified benign neoplasm (1 source) Melanocytic nevi, unspecified; Translations: [[place]] Onset: 5 Episodic Other circulatory disease (1 source) Abnormal peripheral pulse; Translations: [Other specified symptoms and signs involving the circulatory and respiratory systems] 11-28-2022 Episodic Other connective tissue disease (8 sources) Pain of toe of left foot; Translations: [Pain in left toe(s)] Episodic Other connective tissue disease (8 sources) Pain of toe of right foot; Translations: [Pain in right toe(s)] Episodic Other connective tissue disease (4 sources) Pain of left hand; Translations: [Pain in left hand] Episodic Other connective tissue disease (1 source) Swelling of lower leg; Translations: [Other specified soft tissue disorders] 01-16-2023 Episodic Other connective tissue disease (1 source) Pain in left toe(s); Translations: [Pain in toe of left foot] Onset: 5 Episodic Other connective tissue disease (1 source) Pain in right toe(s); Translations: [Pain in toe of right foot] Onset: 5 Episodic Other diseases of kidney and ureters (20 sources) Hyperparathyroidism due to renal insufficiency; Translations: [Secondary hyperparathyroidism of renal origin] Onset: 3 10-18-2022 Chronic Other diseases of kidney and ureters (1 source) Secondary hyperparathyroidism of renal origin; Translations: [Secondary hyperparathyroidism of renal origin (HCC)] Onset: 3 Chronic Other diseases of kidney and ureters (11 sources) Kidney disease; Translations: [Disorder of kidney and ureter, unspecified] Onset: 2 Episodic Other diseases of veins and lymphatics (2 sources) Non-infectious disorder of lymphatics; Translations: [Other specified noninfective disorders of lymphatic vessels and lymph nodes] 08-24-2023 Chronic Other diseases of veins and lymphatics (2 sources) Lymphedema; Translations: [Lymphedema, not elsewhere classified] 08-21-2023 Chronic Other diseases of veins and lymphatics (2 sources) Lymphedema, not elsewhere classified; Translations: [Lymphedema, not elsewhere classified] Onset: 5 Chronic Other diseases of veins and lymphatics (1 source) Other specified noninfective disorders of lymphatic vessels and lymph nodes; Translations: [Other specified noninfective disorders of lymphatic vessels and lymph nodes] Onset: 5 Chronic Other diseases of veins and lymphatics (15 sources) Vascular insufficiency; Translations: [Venous insufficiency (chronic) (peripheral)] Episodic Other diseases of veins and lymphatics (6 sources) Stasis dermatitis; Translations: [Venous insufficiency (chronic) (peripheral)] 04-25-2023 Episodic Other diseases of veins and lymphatics (8 sources) Venous insufficiency (chronic) (peripheral); Translations: [Venous (peripheral) insufficiency, unspecified] Onset: 5 04-12-2023 Episodic Other eye disorders (20 sources) Optic cupping; Translations: [Glaucomatous optic atrophy, bilateral] Onset: 5 02-23-2015 Chronic Other eye disorders (20 sources) Bilateral vitreous floaters; Translations: [Other vitreous opacities, bilateral] Onset: 7 02-07-2017 Chronic Other eye disorders (1 source) Glaucomatous optic atrophy, bilateral; Translations: [Optic cupping of both eyes] Onset: 5 Chronic Other gastrointestinal disorders (1 source) Splenomegaly; Translations: [Splenomegaly, not elsewhere classified] Episodic Other infections; including parasitic (1 source) Other infectious disease; Translations: [Immunosuppression-relat ed infectious disease (HCC)] Onset: 5 Episodic Other injuries and conditions due to external causes (6 sources) Abrasion and/or friction burn of skin; Translations: [Other injury of unspecified body region, initial encounter] 07-27-2022 Episodic Other lower respiratory disease (4 sources) Dyspnea on exertion; Translations: [Other forms of dyspnea] 05-07-2023 Episodic Other lower respiratory disease (2 sources) Other forms of dyspnea; Translations: [Other respiratory abnormalities] 05-07-2023 Episodic Other nervous system disorders (20 sources) Disorder of brain; Translations: [Encephalopathy, unspecified] Onset: 2 Chronic Other nervous system disorders (6 sources) Neuropathy; Translations: [Polyneuropathy, unspecified] 08-16-2022 Chronic Other nervous system disorders (4 sources) Polyneuropathy, unspecified; Translations: [Mononeuritis of unspecified site] Onset: 5 02-14-2023 Chronic Other nervous system disorders (1 source) Other chronic pain; Translations: [Chronic midline low back pain without sciatica] Onset: 4 Chronic Other nervous system disorders (14 sources) Toxic metabolic encephalopathy; Translations: [Toxic metabolic encephalopathy] 09-15-2021 Episodic Other non-traumatic joint disorders (6 sources) Pain in right hip joint; Translations: [Pain in right hip] Onset: 2 04-20-2021 Episodic Other nutritional; endocrine; and metabolic disorders (20 sources) Obese class I; Translations: [Obesity, unspecified] Onset: 3 07-25-2012 Chronic Other nutritional; endocrine; and metabolic disorders (20 sources) Obese class II; Translations: [Obesity, unspecified] Onset: 8 05-11-2017 Chronic Other nutritional; endocrine; and metabolic disorders (14 sources) Obesity; Translations: [Obesity, unspecified] 09-15-2021 Chronic Other nutritional; endocrine; and metabolic disorders (9 sources) Obesity, unspecified; Translations: [Obesity, unspecified] Chronic Other nutritional; endocrine; and metabolic disorders (5 sources) Edema; Translations: [Other disorders of plasma-protein metabolism, not elsewhere classified] 04-25-2023 Chronic Other nutritional; endocrine; and metabolic disorders (1 source) Morbid (severe) obesity due to excess calories; Translations: [Morbid (severe) obesity due to excess calories] Onset: 5 Chronic Other nutritional; endocrine; and metabolic disorders (1 source) Body mass index (BMI) 36.0-36.9, adult; Translations: [Body mass index [BMI] 36.0-36.9, adult] Onset: 5 Chronic Other screening for suspected conditions (not mental disorders or infectious disease) (20 sources) Patient encounter status; Translations: [Encounter for screening for malignant neoplasm of colon] Onset: 8 01-07-2018 Episodic Other skin disorders (1 source) Lesion of toe; Translations: [Disorder of the skin and subcutaneous tissue, unspecified] 11-03-2022 Episodic Other upper respiratory disease (1 source) Seasonal allergy; Translations: [Other seasonal allergic rhinitis] 10-17-2022 Chronic Residual codes; unclassified (20 sources) Obstructive sleep apnea syndrome; Translations: [Obstructive sleep apnea (adult) (pediatric)] Onset: 4 04-22-2020 Chronic Comment on above: Overall AHI 43.8 [place] nts per hour Residual codes; unclassified (1 source) Obstructive sleep apnea (adult) (pediatric); Translations: [NORBERTO (obstructive sleep apnea)] Onset: 4 Chronic Residual codes; unclassified (1 source) Altered mental status; Translations: [Altered mental status, unspecified] Episodic Residual codes; unclassified (1 source) Other general symptoms and signs; Translations: [Other general symptoms] Episodic Residual codes; unclassified (2 sources) Tobacco use; Translations: [Tobacco use] Onset: 2 Episodic Retinal detachments; defects; vascular occlusion; and retinopathy (20 sources) Retinal disorder; Translations: [Unspecified background retinopathy] Onset: 4 12-23-2013 Chronic Spondylosis; intervertebral disc disorders; other back problems (15 sources) Degeneration of lumbar intervertebral disc; Translations: [Degeneration of intervertebral disc of lumbar region with discogenic back pain] Onset: 4 01-16-2024 Chronic Superficial injury; contusion (6 sources) Contusion of face; Translations: [Contusion of other part of head, initial encounter] 07-27-2022 Episodic Unclassified (2 sources) ELEVATED BS 06-08-2021 Comment on above: ELEVATED BS Unclassified (1 source) Degeneration of intervertebral disc of lumbar region with discogenic back pain; Translations: [Degeneration of intervertebral disc of lumbar region with discogenic back pain] Onset: 4 Unclassified (1 source) midline low back pain Onset: 4 Unclassified (1 source) Chronic midline low back pain without sciatica; Translations: [Chronic midline low back pain without sciatica] Onset: 4 Past or Other Problems Problem Classification Problem Date Documented Da te Episodic/Chronic Blindness and vision defects (20 sources) Bilateral eye astigmatism; Translations: [Unspecified astigmatism, bilateral] Onset: 02-23-2015 02-23-2015 Episodic Deficiency and other anemia (7 sources) Anemia; Translations: [Anemia, unspecified] Onset: 06-21-2021 Episodic Diabetes or abnormal glucose tolerance complicating ; childbirth; or the puerperium (10 sources) Diabetes mellitus during - baby not yet delivered; Translations: [Pre-existing type 1 diabetes mellitus, in , unspecified trimester] Onset: 11-09-2010 Resolved: 11-09-2010 11-09-2010 Chronic Fluid and electrolyte disorders (20 sources) Disorder of electrolytes; Translations: [Other disorders of electrolyte and fluid balance, not elsewhere classified] Onset: 06-21-2021 Episodic Immunizations and screening for infectious disease (20 sources) Vaccination needed; Translations: [Encounter for immunization] Onset: 05-11-2017 05-11-2017 Episodic Neoplasms of unspecified nature or uncertain behavior (20 sources) Lesion of eyelid; Translations: [Neoplasm of unspecified behavior of bone, soft tissue, and skin] Onset: 02-23-2015 02-23-2015 Episodic Other aftercare (1 source) 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; Translations: [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] Onset: 01-12-2022 Episodic Other aftercare (1 source) [facility] (current) use of insulin; Translations: [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] Onset: 01-12-2022 Episodic Other aftercare (1 source) [facility] (current) use of antithrombotics/ant iplatelets; Translations: [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 of antithrombotics/ant iplatelets] Onset: 01-12-2022 Episodic Other circulatory disease (1 source) Personal history of transient ischemic attack (TIA), and cerebral infarction without residual deficits; Translations: [Prsnl hx of TIA (TIA), and cereb infrc w/o resid deficits] Onset: 01-12-2022 Episodic Other eye disorders (20 sources) Tear film insufficiency; Translations: [Dry eye syndrome of bilateral lacrimal glands] Onset: 06-08-2020 06-08-2020 Episodic Other gastrointestinal disorders (20 sources) Diarrhea; Translations: [Diarrhea, unspecified] Onset: 02-07-2022 Episodic Other lower respiratory disease (20 sources) Multiple nodules of lung; Translations: [Other nonspecific abnormal finding of lung field] Onset: 12-26-2021 12-26-2021 Episodic Other nervous system disorders (20 sources) Impairment of balance; Translations: [Other abnormalities of gait and mobility] Onset: 08-17-2021 Episodic Other non-epithelial cancer of skin (20 sources) Basal cell carcinoma of neck; Translations: [Basal cell carcinoma of skin of scalp and neck] Onset: 11-28-2018 11-28-2018 Episodic Other non-traumatic joint disorders (20 sources) Hip pain; Translations: [Pain in unspecified hip] Onset: 04-20-2021 Episodic Other non-traumatic joint disorders (20 sources) Pain in right knee; Translations: [Pain in joint, lower leg] Onset: 08-17-2021 Episodic Other upper respiratory infections (20 sources) Acute upper respiratory infection; Translations: [Acute upper respiratory infection, unspecified] Onset: 05-10-2022 Episodic Residual codes; unclassified (20 sources) Tobacco user; Translations: [Tobacco use] Onset: 07-25-2012 07-25-2012 Episodic Residual codes; unclassified (20 sources) Tobacco use and exposure - finding; Translations: [Tobacco use] Onset: 05-11-2017 05-11-2017 Episodic Residual codes; unclassified (20 sources) Bilateral lower limb edema; Translations: [Localized edema] Onset: 04-20-2021 04-20-2021 Episodic Spondylosis; intervertebral disc disorders; other back problems (7 sources) Chronic low back pain; Translations: [Chronic midline low back pain without sciatica] Onset: 12-11-2023 12-11-2023 Episodic Unclassified (1 source) Patient encounter status 09-17-2024 Viral infection (14 sources) Disease caused by 2019-nCoV; Translations: [COVID-19] Onset: 06-10-2021 09-15-2021 Episodic Results Test Name Value Interpretation Reference Range Facility OCT OPTIC NERVE CIRRUS OU (B OTH EYES)on 09-24-2024 [facility] Radiology Study observation (narrative) [facility] VISUAL FIELD 24-2 OU (BOTH E YES)on 09-24-2024 [facility] Radiology Study observation (narrative) [facility] CNOVon 09-17-2024 CNOV Office Visit (FAMPWS ) -- АНДРЕЙ NICKERSON ([id number]) 1960 M Date Time Provider Department 09/17/24 3:00 PM HANDY HENDERSON FAMPWS During your visit today, we recorded the following information about you: Temperature Pulse Respiration Blood pressure 96.1 degrees 72/minute 24/minute 146/70 Weight 115.7 kg Christine Killian LPN 09/17/2024 3:01 PM Signed COLONOSCOPY BOWEL PREPARATION INSTRUCTIONS GOLYTELY/NULYTELY/TRILYTE/ COLYTE Your doctor has scheduled you for a colonoscopy. To have a successful colonoscopy, you must have a clean colon, that is empty. A clean colon allows your doctor to see the entire colon AND diagnose issues like polyps or cancer. For doctors, a clean colon is like driving on a omari day; a dirty colon like driving in a storm. It is very important that you follow these instructions exactly, or your colonoscopy might not be as effective, could be canceled, and you may need to do the bowel prep and the colonoscopy again. TRANSPORTATION REQUIREMENTS You are receiving IV sedation. For your safety, a responsible adult escort must accompany you to and from your procedure: Your adult escort MUST be present with you at check-in for your colonoscopy. Your adult escort MUST remain in the endoscopy area until you are discharged. Your adult escort MUST transport you home once you are discharged. You are NOT allowed to operate any form of transportation (i.e. drive a car, bicycle, etc.) or leave the Endoscopy Center ALONE. It is not safe to do so. If you cannot meet these requirements, your procedure will be canceled. MEDICATION REQUIREMENTS For your safety, certain medications will need to be stopped or adjusted before you can have your procedure: BLOOD THINNERS: If you take blood thinners, such as Coumadin (warfarin), Plavix (clopidogrel), Ticlid (ticlopidine hydrochloride), Agrylin (anagrelide), Xarelto (Rivaroxaban), Pradaxa (Dabigatran), Eliquis (Apixaban), or Effient (Prasugrel), contact the physician who is prescribing these medications at least 2 weeks prior to your procedure to discuss any necessary adjustments. DIABETES: If you take medications for diabetes, your dosage may need to be adjusted. If you are being treated for diabetes with insulin, diabetic pills, or other injectable medications do not take your REGULAR dose after midnight on the day of your procedure. If you are taking any other types of insulin such as Lantus, Humalog, NPH (long-acting insulin), or 70/30 insulin, take half your normal dose the day before your procedure. DIABETES/WEIGHT MANAGEMENT: If you take medications for weight-loss, your dosage may need to be adjusted Contact the doctor who prescribes this medication for further instructions. If you take medications for weight-loss like semaglutide (Ozempic, Wegovy, Rybelsus), dulaglutide (Trulicity), liraglutide (Victoza, Saxenda), exenatide (Byetta, Bydureon), or lixisenatide (Adylyxin), stop your medication 1 week prior to your procedure. If you take medications like canagliflozin (Invokana), dapagliflozin (Farxiga, Forxiga), empagliflozin (Jardiance), stop your medication 3 days prior to your procedure. If you take ertugliflozin (Steglatro) stop your medication 4 days prior to your procedure. IRON: If you take iron pills, STOP them 1 week BEFORE your procedure, may resume after. OTHER MEDS: May take all other medications (including aspirin, antibiotics, water pills / diuretics like Lasix or Metolozone, blood pressure meds, etc.) at their usual scheduled time with a sip of water. DIET REQUIREMENTS The day before your colonoscopy, you may have a clear liquid diet (see below). The day of your colonoscopy, you may continue a clear liquid diet until 3 hours before your colonoscopy. Within 3 hours of your colonoscopy, take only any medications (as above) with a sip of water. Clear Liquid Diet Broth (chicken, beef or vegetable broth or bullion. Just the broth, no solids). Water Coffee or Tea (NO milk or creamer), but sugar and sugar substitutes are allowed. Clear liquids including clear, yellow, green, blue (NO red, NO orange, NO purple) Sodas / soft drinks Gatorade or other sports drinks Billy-Aid or flavored drinks Plain Jell-O or other gelatins Fruit juice (strained; no-pulp) Popsicles or hard candy BOWEL PREPARATION (GOLYTELY/NULYTELY/TRILYTE /COLYTE) Split Dosing Bowel Prep: This means drinking your bowel prep in two doses. Split dosing helps clean your colon better and makes it less likely that your procedure will be canceled. Fill your prescription for Golytely/Nulytely/Trilyte/ Colyte: The afternoon before your colonoscopy, mix the solution and refrigerate. You may add the flavor pack (if present) that came with the bowel preparation. Do not add ice, sugar, or other flavorings to the solution. You (more content not included)... Normal [facility] Carlo 08-13-2024 [facility] Telephone (FAMPWS) -- АНДРЕЙ NICKERSON ([id number]) 1960 M Date Time Provider Department 08/13/24 HANDY HENDERSON [facility] During your visit today, we recorded the following information about you: Handy Henderson DO 08/13/2024 10:42 PM Signed Please let him know that his recent lab results show that his vitamin D levels and vitamin B12 levels are too low. Needs to increase supplements with extra 2000 international unit(s) a day of vitamin D3 with a meal as well as extra 500-1000 mcg a day of vitamin B12 supplement DO Jocelynn Sims Beth, LPN 08/14/2024 8:33 AM Signed Phoned patient went over results, notes from Dr Henderson with understanding. Patient requested to have sent to his my chart please, which was done. Allergies As of Date: 08/13/2024 (No Known Allergies) Date Reviewed: 08/11/2024 Reviewed by: Delmy Beth, RN - Fully Assessed Reason for Visit: Results [95] Prescriptions as of 08/14/2024 - aspirin 325 mg cap Take 1 capsule by mouth once daily. - atorvastatin (LIPITOR) 40 mg tablet Take 1 tablet by mouth once daily. - carvedilol (COREG) 12.5 mg tablet Take 1 tablet by mouth once daily. - famotidine (PEPCID) 20 mg tablet Take 1 tablet by mouth two times a day. - timolol maleate (TIMOPTIC) 0.5 % ophthalmic solution Use 1 Drop in both eyes two times a day. - loperamide HCl (ANTI-DIARRHEAL) 2 mg tab Take 1 tablet by mouth as needed. - cyclobenzaprine (FLEXERIL) 10 mg tablet Take 1 tablet by mouth three times a day as needed for muscle spasm or pain. - furosemide (LASIX) 20 mg tablet Take 1 tablet by mouth every afternoon. - amLODIPine (NORVASC) 2.5 mg tablet - fluticasone (FLONASE) 50 mcg/actuation nasal spray Use 2 Sprays in each nostril once daily. Rinse mouth after use. - sirolimus (RAPAMUNE) 0.5 mg tablet Take 1 mg by mouth once daily. - propylene glycoL (SYSTANE COMPLETE) 0.6 % drop Use 1 Drop in both eyes four times daily. - docusate sodium (COLACE) 100 mg capsule Take 100 mg by mouth two times a day as needed for constipation. - mycophenolate mofetil (CELLCEPT) 250 mg capsule Take by mouth twice daily. 4 caps q 12 hours - sulfamethoxazole-trimethop rim (BACTRIM DS,SEPTRA DS) 800-160 mg per tablet Take by mouth twice daily. - clopidogrel (PLAVIX) 75 mg tablet Take 1 tablet by mouth once daily. - tamsulosin (FLOMAX) 0.4 mg TAKE 1 CAPSULE BY MOUTH EVERYDAY AT BEDTIME - blood sugar diagnostic (ONETOUCH ULTRA TEST) test strip Checking blood sugars 3-4 times daily - Insulin [place], Disposable, (BD ULTRAFINE III MINI PEN) 31 gauge x 3/16 use as directed up to four times daily, E11.9 - Blood-Glucose Sensor (DEXCOM G6 SENSOR) darleen Change Sensor every 14 days Patient reading blood sugar 12 times daily - Blood-Glucose Meter,Continuous (DEXCOM G4 B OPERATOR-SHARE KIT) misc One [place] device, patient checks blood sugars 12 times daily - Blood-Glucose Transmitter (DEXCOM G6 TRANSMITTER) darleen 1 Each as directed. - Blood-Glucose Meter,Continuous (DEXCOM G6 B OPERATOR) misc 1 Each as directed. - insulin detemir U-100 (LEVEMIR FLEXTOUCH U-100 INSULN) 100 unit/mL (3 mL) inpn injection INJECT 36 UNITS SUBCUTANEOUSLY DAILY AT BEDTIME. - Lancets (MICROLET LANCET) lancets Test blood sugar(s) 3-4 times daily. Dx: 250.00 . Insulin: Yes - Blood-Glucose Meter (ONETOUCH ULTRA2) monitoring kit 1 Each as needed. 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 Meds Comments as of 07/25/2012: Insulin pump with Novolog Problem List As Of Date 08/13/2024 Noted Resolved Obesity (BMI 30.0-34.9) [E66.811] 07/25/2012 Tobacco abuse [Z72.0] 07/25/2012 Hypercholesteremia [E78.00] 07/25/2012 Coronary artery disease [I25.10] 07/25/2012 Hypertension [I10] 07/25/2012 Diabetes mellitus type 2 in obese (HCC) [E11.69*07/25/2012 08/10/2015 Background diabetic retinopathy(362.01) (HCC) *12/23/2013 Retinal edema [H35.81] 12/23/2013 Other and combined forms of senile cataract [H2*12/23/2013 02/23/2015 Proliferative diabetic retinopathy(362.02) (HC*12/23/2013 02/07/2017 Type 1 diabetes mellitus with mild nonprolifera*12/23/2013 Borderline glaucoma with ocular hypertension - *07/03/2014 Type 1 diabetes mellitus with stable proliferat*07/03/2014 Status post kidney transplant [Z94.0] 07/03/2014 Type II or unspecified type diabetes mellitus w*07/28/2014 03/31/2015 Growth of eyelid [D49.2] 02/23/2015 Primary open angle glaucoma (POAG) of both eyes*02/23/2015 Optic cupping of both eyes [H47.233] 02/23/2015 Astigmatism of both eyes [H52.203] 02/23/2015 Combined 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 [*03/02/2015 04/26/2015 Pseudophakia, left eye [Z96.1] 03/11/2015 03/31/2015 Pseudophakia of left (more content not included)... Normal [facility] Endocrinology Visit Reporton 08-13-2024 Endocrinology Visit Report [facility] [address] [place] [address] OFFICE VISIT Date of Service: 08/13/24 MR#: [id number] Acct: [id number] Name: NICKERSONАНДРЕЙ CLAUDIA Rep #: [id number] : 1960 Provider: ANJUM persaud Age/Sex: 63/M [place] [facility] Status: Signed Intake Vital Signs 02/13/24 13:05 06/03/24 07:33 08/13/24 13:07 Height 5 ft 10 in 5 ft 10 in 5 ft 10 in Weight: 263 lb 257 lb 261 lb 2 oz BMI 37.7 36.8 37.4 BP 138/83 H 122/76 H 146/80 H Blood Pressure Location Lt brachial Lt brachial Rt brachial Position Sitting Sitting Sitting Respiration 20 H Pulse 74 85 69 Pulse Source Monitor Monitor Monitor Pulse Oximetry (%) 98 97 96 Oxygen Delivery Method room air room air Intake Visit Reasons: 6 M FU Chief Complaint: f/u diabetes Is patient in pain?: No Allergies No Known Allergies Allergy (Verified 08/13/24 13:12) Medications ???Medication ???Instructions ???Recorded ???Confirmed ???Type albuterol sulfate 90 mcg/actuation 1 - 2 puff inhalation Q6H PRN TN N 07/24/19 08/13/24 History aerosol inhaler Wheezing BP cuff #1 ea 11/27/19 08/13/24 Rx pen needle, diabetic 32 gauge x #400 ea 02/12/20 08/13/24 Rx 5/32 (BD Ultra-Fine Cici Pen Needle) tamsulosin 0.4 mg capsule 0.4 mg PO QHS 04/22/20 08/13/24 Hi story propylene glycol 0.6 % eye drops 1 drp ophthalmic (eye) DAILY PRN 0 07/28/21 08/13/24 History (Systane Balance) lubricant mycophenolate mofetil 250 mg 500 mg PO BID 09/19/21 08/13/24 Hi story capsule sulfamethoxazole 800 1.5 tab PO .QOD 09/19/21 08/13/24 History mg-trimethoprim 160 mg tablet blood-glucose sensor (Dexcom G6 #9 ea 09/22/21 08/13/24 Rx Sensor device) blood-glucose transmitter (Dexcom #1 ea 09/22/21 08/13/24 Rx G6 Transmitter device) sirolimus 0.5 mg tablet 1 mg PO DAILY 01/30/22 08/13/24 Hi story atorvastatin 40 mg tablet 40 mg PO QHS #90 tabs 06/09/22 Rx blood sugar diagnostic (Blood #100 ea 10/13/22 08/13/24 Rx Glucose Test strips) blood-glucose meter #1 ea 10/23/22 08/13/24 Rx timolol 0.5 % eye drops 1 drp ophthalmic (eye) DAILY 05/0708/13/24 History blood-glucose meter (Accu-Chek #1 ea 06/04/23 08/13/24 Rx Guide Glucose Meter) lancing device with lancets kit #1 ea 06/04/23 08/13/24 Rx (Accu-Chek Softclix Lancing Device+Lancets kit) bupropion HCl 100 mg tablet,12 hr 100 mg PO BID #60 ea 08/15/23 Rx sustained-release (Wellbutrin SR) famotidine 20 mg tablet (Pepcid) 20 mg PO DAILY PRN 12/04/23 History Novolog U-100 Insulin aspart 100 120 unit (1.2 mL) continuous 02/1308/13/24 Rx unit/mL subcutaneous solution subcutaneous infusion .continuous (insulin aspart U-100) #108 mL blood sugar diagnostic (Accu-Chek #100 ea 02/14/24 08/13/24 Rx Guide test strips) amlodipine 2.5 mg tablet 2.5 mg PO DAILY #30 tabs 04/09/24 08/13/24 Rx aspirin 325 mg tablet 81 mg PO DAILY 06/03/24 08/13/24 H istory carvedilol 12.5 mg tablet 12.5 mg PO BID #180 tabs 06/03/24 08/13/24 Rx clopidogrel 75 mg tablet 75 mg PO DAILY #90 tabs 06/03/24 0 08/13/24 Rx PFSH Medical History Diabetes mellitus type 1 TIA (transient ischemic attack) Toxic metabolic encephalopathy COVID-19 virus infection (06/10/21) Encephalopathy acute Hepatitis C test positive CPAP (continuous positive airway pressure) dependence Sleep apnea Wears dentures Wears glasses Insulin dependent diabetes mellitus Walker as ambulation aid Arthritis Prostate disease History of renal disease High cholesterol Former smoker Malfunction of arteriovenous dialysis fistula Abdominal pain Incomplete right bundle branch block Uncontrolled type 1 diabetes mellitus with ESRD (end-stage renal disease) NORBERTO (obstructive sleep apnea) Atherosclerosis of [place] coronary artery of [place] heart without angina pectoris Essential hypertension Diabetic polyneuropathy associated with type 1 diabetes mellitus CKD (chronic kidney disease) stage 4, GFR 15-29 ml/min Diabetes type 1, uncontrolled Stroke Pancreatitis Kidney disease Type 1 diabetes Cataracts, bilateral DM2 (diabetes mellitus, type 2) Tobacco abuse Hyperlipidemia Surgical History Status post glaucoma surgery Kidney transplant recipient Kidney transplant recipient History of kidney transplant (03/27/21) history of peritoneal catheter insertion ( 03/2020) Problem with dialysis access (04/05/20) History of coronary artery stent placement (04/21/11) Arteriovenous fistula for hemodialysis in place, primary History of bilateral cataract extraction H/O cardiac catheterization F (more content not included)... Normal [facility] 25(OH)D3 SerPl-ncon 2024 25-hydroxyvitamin D3 [Mass/Vol] 12.4 ng/mL Low 31.0-80.0 [facility] Comment on above: Order Comment: Specdelon reyes Type: BLOOD SPECIMENOrdering Facility: [facility] Address: [address] [place] [address] Result Comment: Clas sification of 25 [place] Vitamin D status: Deficiency/Insufficiency: < or = 30 ng/ml. Sufficiency/Optimal Levels: 31-80 ng/mL Toxicity: > 100 ng/mL. Test performed by chemiluminescent immunoassay. Performed By: #### 1 989-3 ####[facility] LABCLIA [id number] [place] [address] [place] Basic metabolic 2000 panelon 08-11-2024 Anion gap [Moles/Vol] 10 mmol/L Normal 8-15 [facility] Comment on above: Order Comment: Praveen reyes Type: BLOOD SPECIMENOrdering Facility: [facility] Address: [address] [place] [address] Performed By: #### 3 024-7, 6875-9, 3016-3, 73190-8 ####[facility]CLIA [id number] [place] [address] [place] Calcium [Mass/Vol] 9.3 mg/dL Normal 8.5-10.2 [facility] Comment on above: Order Comment: Speci men Type: BLOOD SPECIMENOrdering Facility: [facility] [place] Address: [address] [place] [address] Performed By: #### 3 024-7, 6875-9, 3016-3, 02645-1 ####[facility] [id number] [place] [id number] [place] Chloride [Moles/Vol] 108 mmol/L High 98-107 [facility] Comment on above: Order Comment: Speci men Type: BLOOD SPECIMENOrdering Facility: [facility] [place] Address: [address] [place] [address] Performed By: #### 3 024-7, 6875-9, 3016-3, 22115-3 ####[facility]IA [id number] [place] [address] [place] CO2 [Moles/Vol] 18 mmol/L Low 22-30 [facility] Comment on above: Order Comment: Speci men Type: BLOOD SPECIMENOrdering Facility: [facility] [place] Address: [address] [place] [address] Performed By: #### 3 024-7, 6875-9, 3016-3, 59572-6 ####[facility] [id number] [place] [id number] [place] Creatinine [Mass/Vol] 2.43 mg/dL High 0.73-1.22 [facility] Comment on above: Order Comment: Speci men Type: BLOOD SPECIMENOrdering Facility: [facility] [place] Address: [address] [address] Performed By: #### 3 024-7, 6875-9, 3016-3, 21238-1 ####[facility] [id number] [place] [id number] [place] Creatinine and Glomerular filtration rate.predicted panel (S/P/Bld) 30 mL/min/1.73m??? Low >=60 [facility] Comment on above: Order Comment: Praveen reyes Type: BLOOD SPECIMENOrdering Facility: [facility] [place] Address: [address] [place] [address] Result Comment: Leah mated Glomerular Filtration Rate (eGFR) is calculated using the 2020 CKD-EPI creatinine equation. This equation utilizes serum creatinine, sex, and age as parameters. The creatinine assay has traceable calibration to isotope dilution-mass spectrometry. Refer to KDIGO guidelines for clinical interpretation. In patients with unstable renal function, e.g. those with acute kidney injury, the eGFR may not accurately reflect actual GFR. Performed By: #### 3 024-7, 6875-9, 3016-3, 34309-1 ####[facility] [id number] [address] [address] [place] Glucose [Mass/Vol] 110 mg/dL High 74-99 [facility] Comment on above: Order Comment: Praveen reyes Type: BLOOD SPECIMENOrdering Facility: [facility] [place] Address: [address] [place] [address] Result Comment: The [place] [employer] (ADA) provides guidance for cutoff values for fasting glucose and random glucose. The ADA defines fasting as no caloric intake for at least 8 hours. Fasting plasma glucose results between 100 to 125 mg/dL indicate increased risk for diabetes (prediabetes). Fasting plasma glucose results greater than or equal to 126 mg/dL meet the criteria for diagnosis of diabetes. In the absence of unequivocal hyperglycemia, results should be confirmed by repeat testing. In a patient with classic symptoms of hyperglycemia or hyperglycemic crisis, random plasma glucose results greater than or equal to 200 mg/dL meet the criteria for diagnosis of diabetes. Reference: Standards of Medical Care in Diabetes 2016, [place] [employer]. Diabetes Care. 2016.39(Suppl 1). Performed By: #### 3 024-7, 6875-9, 3016-3, 03375-3 ####[facility]CL[facility] [id number] [address] [address] [place] Potassium [Moles/Vol] 4.4 mmol/L Normal 3.7-5.1 [facility] Comment on above: Order Comment: Speci men Type: BLOOD SPECIMENOrdering Facility: [facility] [place] Address: [address] [place] [address] Performed By: #### 3 024-7, 6875-9, 3016-3, 54588-9 ####[facility]CL[facility] [id number] [place] [address] [place] Sodium [Moles/Vol] 136 mmol/L Normal 136-144 [facility] Comment on above: Order Comment: Speci men Type: BLOOD SPECIMENOrdering Facility: [facility] [place] Address: [address] [address] Performed By: #### 3 024-7, 6875-9, 3016-3, 96633-4 ####[facility]IA [id number] [place] [address] [place] Urea nitrogen [Mass/Vol] 17 mg/dL Normal 9-24 [facility] Comment on above: Order Comment: Speci men Type: BLOOD SPECIMENOrdering Facility: [facility] [place] Address: [address] [address] Performed By: #### 3 024-7, 6875-9, 3016-3, 85533-5 ####[facility]IA [id number] [place] [address] [place] CBC W Auto Differential pane l (Bld)on 08-11-2024 Basophils (Bld) [#/Vol] 0.04 10*3/uL Normal <0.11 [facility] Comment on above: Order Comment: Speci men Type: BLOOD SPECIMENOrdering Facility: [facility] [place] Address: [address] [place] [address] Performed By: #### 5 7021-8 ####[facility]IA [id number] [place] [address] [place] Basophils/100 WBC (Bld) 0.8 % Normal [facility] Comment on above: Order Comment: Speci men Type: BLOOD SPECIMENOrdering Facility: [facility] [place] Address: [address] [place] [address] Performed By: #### 5 7021-8 ####[facility]CL[facility] [id number] [place] [id number] [place] Differential cell count method Nom (Bld) Auto Normal [facility] Comment on above: Order Comment: Speci men Type: BLOOD SPECIMENOrdering Facility: [facility] [place] Address: [address] [place] [address] Performed By: #### 5 7021-8 ####[facility]IA [id number] [place] [address] [place] Eosinophils (Bld) [#/Vol] 0.09 10*3/uL Normal <0.46 [facility] Comment on above: Order Comment: Speci men Type: BLOOD SPECIMENOrdering Facility: [facility] [place] Address: [address] [place] [address] Performed By: #### 5 7021-8 ####[facility] [id number] [place] [address] [place] Eosinophils/100 WBC (Bld) 1.9 % Normal [facility] Comment on above: Order Comment: Speci men Type: BLOOD SPECIMENOrdering Facility: [facility] [place] Address: [address] [place] [address] Performed By: #### 5 7021-8 ####[facility] [id number] [place] [id number] [place] Erythrocyte distribution width (RBC) [Ratio] 14.6 % Normal 11.5-15.0 [facility] Comment on above: Order Comment: Speci men Type: BLOOD SPECIMENOrdering Facility: [facility] [place] Address: [address] [place] [address] Performed By: #### 5 7021-8 ####[facility]IA [id number] [address] [address] [place] Hematocrit (Bld) [Volume fraction] 41.4 % Normal 39.0-51.0 [facility] Comment on above: Order Comment: Speci men Type: BLOOD SPECIMENOrdering Facility: [facility] [place] Address: [facility] [address] [place] [address] Performed By: #### 5 7021-8 ####[facility]IA [id number] [place] [id number] [place] Hemoglobin (Bld) [Mass/Vol] 12.4 g/dL Low 13.0-17.0 [facility] Comment on above: Order Comment: Speci men Type: BLOOD SPECIMENOrdering Facility: [facility] [place] Address: [facility] [address] [place] [address] Performed By: #### 5 7021-8 ####[facility] [id number] [place] [id number] [place] Immature granulocytes (Bld) [#/Vol] 10*3/uL Normal <0.10 [facility] Comment on above: Order Comment: Speci men Type: BLOOD SPECIMENOrdering Facility: [facility] [place] Address: [facility] [address] [place] [address] Performed By: #### 5 7021-8 ####[facility] LABIA [id number] [place] [id number] [place] Immature granulocytes/100 WBC (Bld) 0.4 % Normal [facility] Comment on above: Order Comment: Speci men Type: BLOOD SPECIMENOrdering Facility: [facility] [place] Address: [facility] [address] [place] [address] Performed By: #### 5 7021-8 ####[facility] LABIA [id number] [address] [address] [place] Lymphocytes (Bld) [#/Vol] 1.13 10*3/uL Normal 1.00-4.00 [facility] Comment on above: Order Comment: Speci men Type: BLOOD SPECIMENOrdering Facility: [facility] [place] Address: [address] [place] [address] Performed By: #### 5 7021-8 ####[facility] LABIA [id number] [place] [address] [place] Lymphocytes/100 WBC (Bld) 23.7 % Normal [facility] Comment on above: Order Comment: Speci men Type: BLOOD SPECIMENOrdering Facility: [facility] [place] Address: [address] [place] [address] Performed By: #### 5 7021-8 ####[facility] LABIA [id number] [place] [id number] [place] MCH (RBC) [Entitic mass] 26.8 pg Normal 26.0-34.0 [facility] Comment on above: Order Comment: Speci men Type: BLOOD SPECIMENOrdering Facility: [facility] [place] Address: [address] [place] [address] Performed By: #### 5 7021-8 ####[facility] LABIA [id number] [place] [id number] [place] MCHC (RBC) [Mass/Vol] 30.0 g/dL Low 30.5-36.0 [facility] Comment on above: Order Comment: Speci men Type: BLOOD SPECIMENOrdering Facility: [facility] Address: [address] [place] [address] Performed By: #### 5 7021-8 ####[facility] LABIA [id number] [place] [id number] [place] MCV (RBC) [Entitic vol] 89.4 fL Normal 80.0-100.0 [facility] Comment on above: Order Comment: Speci men Type: BLOOD SPECIMENOrdering Facility: [facility] Address: [address] [place] [address] Performed By: #### 5 7021-8 ####[facility] LABCLIA [id number] [facility] [address] [place] [address] [place] Monocytes (Bld) [#/Vol] 0.70 10*3/uL Normal <0.87 [facility] Comment on above: Order Comment: Speci men Type: BLOOD SPECIMENOrdering Facility: [facility] [place] Address: [address] [place] [address] Performed By: #### 5 7021-8 ####[facility] LABCLIA [id number] [address] [place] [address] [place] Monocytes/100 WBC (Bld) 14.7 % Normal [facility] Comment on above: Order Comment: Speci men Type: BLOOD SPECIMENOrdering Facility: [facility] [place] Address: [facility] [address] [place] [address] Performed By: #### 5 7021-8 ####[facility] LABCLIA [id number] [address] [place] [address] [place] Neutrophils (Bld) [#/Vol] 2.78 10*3/uL Normal 1.45-7.50 [facility] Comment on above: Order Comment: Speci men Type: BLOOD SPECIMENOrdering Facility: [facility] [place] Address: [address] [place] [address] Performed By: #### 5 7021-8 ####[facility] LABCLIA [id number] [address] [address] [place] Neutrophils/100 WBC (Bld) 58.5 % Normal [facility] Comment on above: Order Comment: Speci men Type: BLOOD SPECIMENOrdering Facility: [facility] [place] Address: [facility] [address] [place] [address] Performed By: #### 5 7021-8 ####[facility] LABCLIA [id number] [address] [place] [address] [place] Nucleated RBC (Bld) [#/Vol] 10*3/uL Normal <0.01 [facility] Comment on above: Order Comment: Speci men Type: BLOOD SPECIMENOrdering Facility: [facility] Address: [address] [place] [address] Performed By: #### 5 7021-8 ####[facility] LABCLIA [id number] [address], [facility]95 [place] Nucleated RBC/100 WBC (Bld) [Ratio] 0.0 /100 WBC Normal [facility] Comment on above: Order Comment: Speci men Type: BLOOD SPECIMENOrdering Facility: [facility] Address: [address] [place] [address] Performed By: #### 5 7021-8 ####[facility] LABIA [id number] [place] [id number] [place] Platelet mean volume (Bld) [Entitic vol] 9.5 fL Normal 9.0-12.7 [facility] Comment on above: Order Comment: Speci men Type: BLOOD SPECIMENOrdering Facility: [facility] Address: [address] [place] [address] Performed By: #### 5 7021-8 ####[facility] LABIA [id number] [address], [facility] [place] Platelets (Bld) [#/Vol] 226 10*3/uL Normal 150-400 [facility] Comment on above: Order Comment: Speci men Type: BLOOD SPECIMENOrdering Facility: [facility] Address: [address] [place] [address] Performed By: #### 5 7021-8 ####[facility] LABIA [id number] [place] [id number] [place] RBC (Bld) [#/Vol] 4.63 10*6/uL Normal 4.20-6.00 [facility] Comment on above: Order Comment: Speci men Type: BLOOD SPECIMENOrdering Facility: [facility] Address: [address], [place] [address] Performed By: #### 5 7021-8 ####[facility] [id number] [address] [address] [place] WBC (Bld) [#/Vol] 4.76 10*3/uL Normal 3.70-11.00 [facility] Comment on above: Order Comment: Speci men Type: BLOOD SPECIMENOrdering Facility: [facility] Address: [address] [place] [address] Performed By: #### 5 7021-8 ####[facility] [id number] [address] [address] [facility] [place] CNOVon 08-11-2024 CNOV Office Visit (PODIWS ) -- АНДРЕЙ NICKERSON ([id number]) 1960 M Date Time Provider Department 08/11/24 2:00 PM TRINY PALMER PODIWS During your visit today, we recorded the following information about you: Delmy Beth, RN 08/11/2024 9:51 PM Signed Patient presents with: Left Foot - Established Patient, Follow Up, Diabetic Foot Care Right Foot - Established Patient, Follow Up, Diabetic Foot Care Patient presents for 3 month follow up diabetic foot/nail care. JAMEY 05/12/24 Triny Palmer 08/11/2024 2:17 PM Signed Diabetes Foot Care Instructions When you have diabetes, proper foot care is very important. Poor foot care may lead to amputation of a foot or leg. As a person with diabetes, you are more vulnerable to foot problems, because diabetes can damage your nerves and reduce blood flow to your feet. Here are some diabetes foot care tips to follow: Wash and Dry Your Feet Daily Use mild soaps Use warm water Pat your skin dry; do not rub. Thoroughly dry your feet. After washing, use lotion on your feet to prevent cracking. Do not put lotion between your toes. Examine Your Feet Each Day Check the tops and bottoms of your feet. Have someone else look at your feet if you cannot see them. Check for dry, cracked skin. Look for blisters, cuts, scratches, or other sores. Check for redness, increased warmth, or tenderness when touching any area of your feet. Check for ingrown toenails, corns, and calluses. If you get a blister or sore from your shoes, do not pop it. Apply a bandage and wear a different pair of shoes. Take Care of Your Toenails Cut toenails after bathing, when they are soft. Cut toenails straight across and smooth with a nail file. Avoid cutting into the corners of toes. Do not cut cuticles. If you have neuropathy (or decreased sensation in your feet) a track helper should always cut your toenails. Be Careful When Exercising Walk and exercise in comfortable shoes. Do not exercise when you have open sores on your feet. Protect Your Feet With Shoes and Socks Never go barefoot. Always protect your feet by wearing shoes or hard-soled slippers or footwear. Avoid shoes with high heels and pointed toes. Avoid shoes that expose your toes or heels (such as open-toed shoes or sandals). These types of shoes increase your risk for injury and potential infections. Try on new footwear with the type of socks you usually wear. Do not wear new shoes for more than an hour at a time. Change your socks daily. Look and feel inside your shoes before putting them on to make sure there are no foreign objects or rough areas. Avoid tight socks. Wear natural-fiber socks (cotton, wool, or a cotton-wool blend). Wear special shoes if your health care provider recommends them. Wear shoes/boots that will protect your feet from various weather conditions (cold, moisture, etc.). Make sure your shoes fit properly. If you have neuropathy (nerve damage), you may not notice that your shoes are too tight. Perform the footwear test described below. Footwear Test Use this simple test to see if your shoes fit correctly: Stand on a piece of paper. (Make sure you are standing and not sitting, because your foot changes shape when you stand.) Trace the outline of your foot. Trace the outline of your shoe. Compare the tracings: Is the shoe too narrow? Is your foot crammed into the shoe? The shoe should be at least 1/2 inch longer than your longest toe and as wide as your foot. Proper Shoe Choices The following types of shoes are best for people with diabetes Closed toes and heels Leather uppers without a seam inside At least 1/2 inch extra space at the end of your longest toe Inside of shoe should be soft with no rough areas Outer sole should be made of stiff material Shoes should be at least as wide as your feet Tips for Foot Care in Diabetes Don't wait to treat a minor foot problem if you have diabetes. Follow your health care provider's guidelines and first aid guidelines. Report foot injuries and infections to your health care provider immediately. Check water temperature with your elbow, not your foot. Do not use a heating pad on your feet. Do not cross your legs. Do not self-treat your corns, calluses, or other foot problems. Go to your health care provider or track helper to treat these conditions. Triny Palmer 08/11/2024 9:51 PM Signed Last saw pcp: 06/17/24 Subjective: Patient presents to clinic c/o painful toenails. They state that the nails are especially painful with shoe gear and pressure. Patient states that nails b/l hallux are painful. Patient admits to being diabetic No other pedal complaints at this time. Patient states no change in medications or medical history since last visit. Objective: Patient presents to clinic ambulating in diabetic shoes Vasc: (more content not included)... Normal [facility] Cancer Ag15-3 SerPl-aCncon 0 08-11-2024 Cancer Ag 15-3 Qn 18.4 U/mL Normal <26.0 [facility] Comment on above: Order Comment: Speci men Type: BLOOD SPECIMENOrdering Facility: [facility] Address: [address], [place] [address] Result Comment: The CA 15-3 test methodology used is the Electrochemiluminescence Immunoassay by [employer]. Results obtained with different methods or kits cannot be used interchangeably. Performed By: #### 3 024-7, 6875-9, 3016-3, 75563-5 ####[facility] [id number] [address] [address] [place] Sirolimus Bld-ncon 025 Sirolimus (Bld) [Mass/Vol] 7.2 ng/mL Normal 4.0-12.0 [facility] Comment on above: Order Comment: Specdelon reyes Type: BLOOD SPECIMENOrdering Facility: [facility] Address: [address] [place] [address] Result Comment: The optimal therapeutic range may vary based on the indication for treatment, transplant type, time post transplant, simultaneous use of other immunosuppressive drugs, and clinical or institutional protocols. It is recommended to interpret the results in conjunction with this information and the patient's clinical context. This test was developed and its performance characteristics determined by [facility]'s Shamir JLars [facility] Pathology and Laboratory Medicine [place] ([facility]). It has not been cleared or approved by the FDA. [facility] is regulated under CLIA as qualified to perform high-complexity testing. This test is used for clinical purposes. It should not be regarded as investigational or for research. Test performed by LC-MS/MS Performed By: #### 2 9247-4 ####[facility] [id number] [address] [address] [place] T4 Free SerPl-mCncon 025 Free T4 [Mass/Vol] 1.1 ng/dL Normal 0.9-1.7 [facility] Comment on above: Order Comment: Praveen reyes Type: BLOOD SPECIMENOrdering Facility: [facility] Address: [address] [place] [address] Performed By: #### 3 024-7, 6875-9, 3016-3, 96952-4 ####[facility] [id number] [address] [address] [place] TSH SerPl-aCncon 08-11-2024 TSH Qn 2.190 m[IU]/L Normal 0.270-4.20 0 [facility] Comment on above: Order Comment: Speci men Type: BLOOD SPECIMENOrdering Facility: [facility] Address: [address] [place] [address] Performed By: #### 3 024-7, 6875-9, 3016-3, 24246-0 ####[facility] LABCLIA [id number] [place] [address] [facility] [place] Vit B12 SerPl-mCncon 025 Cobalamin (Vitamin B12) [Mass/Vol] 256 pg/mL Normal 232-1245 [facility] Comment on above: Order Comment: Speci men Type: BLOOD SPECIMENOrdering Facility: [facility] Address: [address] [place] [address] Performed By: #### 2 132-9 ####[facility] LABCLIA [id number] [place] [id number] [place] Echo Completeon 07-07-2024 Echo Complete [facility] [address] [place], [place] [id number] Echo Complete 07/07/24 1405 MR#: [id number] Acct: [id number] Name: АНДРЕЙ NICKERSON Rep #: [id number] : 1960 63 From: Pavan Shell MD Attending Dr: AUDIE Martin Status: REG CLI Ordering Dr: Radha Moss Date: 10/24 Location: [facility] Sex: M C Admitted: Reason For Study Reason For Study: LVH Procedure This was a 2D Doppler, Color Flow transthoracic echocardiogram. Exam performed in department. Left Ventricle Normal LV size. Severe concentric left ventricular hypertrophy. Left ventricular systolic function is normal. The left ventricular ejection fraction is 70 %. Resting LV gradient 6 mmHg. Valsalva LV gradient 50 mmHg. No regional wall motion abnormalities noted. Right Ventricle Normal RV size. Normal systolic function. Atria Normal left atrium. Normal right atrium. Mitral Valve Normal mitral valve. Tricuspid Valve Normal tricuspid valve. Aortic Valve Trisinus/trileaflet aortic valve. Pulmonic Valve Normal pulmonic valve. Great Vessels Normal aortic root. The pulmonary artery is normal size. Inferior vena cava collapse with respiration. Pericardium/Pleural Small (<1.0 cm) pericardial effusion. MMode/2D Measurements Calculations LVIDd: 4.4 cm IVSd: 1.8 cm LVOT diam: 2.0 cm LVIDs: 2.6 cm LVPWd: 1.7 cm LVOT area: 3.2 cm2 RVDd: 3.0 cm FS: 41.6 % Ao root diam: 3.6 cm LAV(MOD-bp): 50.1 ml LVAd ap4: 28.8 cm2 LAV(MOD-bp) Indexed: 24.6 ml/m2 LVLd ap4: 8.1 cm LAV(MOD-sp2): 40.6 ml EDV(MOD-sp4): 85.7 ml LAV(MOD-sp4): 57.8 ml EDV(sp4-el): 86.9 ml LVAs ap4: 13.9 cm2 LVLs ap4: 7.1 cm ESV(MOD-sp4): 23.8 ml ESV(sp4-el): 23.3 ml EF(MOD-sp4): 72.2 % EF(sp4-el): 73.2 % SV(MOD-sp4): 61.9 ml SV(sp4-el): 63.7 ml LA A4 area: 20.1 cm2 SI(MOD-sp4): 30.3 ml/m2 LA dimension(2D): 4.3 cm RA A4 area: 12.8 cm2 Time Measurements MV dec time: 0.29 sec Doppler Measurements Calculations MV E max marcial: 115.9 cm/sec Lat Peak E' Marcial: 4.8 cm/sec Med Peak E' Marcial: 4.0 cm/sec MV A max marcial: 128.6 cm/sec E/E' lat: 23.9 E/E' med: 29.1 MV E/A: 0.90 MV V2 max: 152.6 cm/sec Ao V2 max: 150.6 cm/sec MV max P.3 mmHg MV dec slope: 405.6 cm/sec2 Ao max P.1 mmHg MV V2 mean: 96.2 cm/sec Ao V2 mean: 94.1 cm/sec MV mean P.1 mmHg Ao mean P.3 mmHg MV V2 VTI: 43.6 cm Ao V2 VTI: 30.2 cm AV (velocity ratio): 1.2 MVA(VTI): 2.7 cm2 JOSIANE(I,D): 3.9 cm2 JOSIANE(V,D): 3.0 cm2 LV V1 max: 143.9 cm/sec SV(LVOT): 117.0 ml PA V2 max: 100.5 cm/sec LV V1 max P.3 mmHg PA V2 mean: 71.2 cm/sec LV V1 mean P.2 mmHg LV V1 mean: 107.1 cm/sec LV V1 VTI: 37.0 cm ECHO/Echo Complete Interpretation Summary Normal LV size. Severe concentric left ventricular hypertrophy. Left ventricular systolic function is normal. The left ventricular ejection fraction is 70 %. Dynamic LVOT gradient noted. Ordering Physician: Radha Moss Referring Physician: Radha Moss Performed By: Millie Cooper RCS 07/07/241607 Date Pavan Shell MD CC: Dr. Handy Henderson DO; AUDIE Martin Date Dictated: 07/07/241404 Date Transcribed: 07/07/241607 Clinical Training Specialist: Signed Normal [facility] Echocardiogram study reportO rdered By: Pavan Shell on 07-07-2024 Study report [facility] [address] [place] [address] Echo Complete 07/07/241404 MR#: [id number] Acct: [id number] Name: АНДРЕЙ NICKERSON Rep #:[id number] : 1960 63 From: Pavan Chu Attending Dr: AUDIE Martin Status: REG CLI Ordering Dr: Radha Moss Date: 07/07/24 Location: [facility] Sex: M C Admitted: Reason For Study Reason For Study: LVH Procedure This was a 2D Doppler, Color Flow transthoracic echocardiogram. Exam performed in department. Left Ventricle Normal LV size. Severe concentric left ventricular hypertrophy. Left ventricularsystolic function is normal. The left ventricular ejection fraction is 70 %. Resting LV gradient 6 mmHg. Valsalva LV gradient 50 mmHg. No regional wall motion abnormalities noted. Right Ventricle Normal RV size. Normal systolic function. Atria Normal left atrium. Normal right atrium. Mitral Valve Normal mitral valve. Tricuspid Valve Normal tricuspid valve. Aortic Valve Trisinus/trileaflet aortic valve. Pulmonic Valve Normal pulmonic valve. Great Vessels Normal aortic root. The pulmonary artery is normal size. Inferior vena cava collapse with respiration. Pericardium/Pleural Small (<1.0 cm) pericardial effusion. MMode/2D Measurements & Calculations LVIDd: 4.4 cm IVSd: 1.8 cm LVOT diam: 2.0 cm LVIDs: 2.6 cm LVPWd: 1.7 cm LVOT area: 3.2 cm2 RVDd: 3.0 cm FS: 41.6 % __ Ao root diam: 3.6 cm LAV(MOD-bp): 50.1 ml LVAd ap4: 28.8 cm2 LAV(MOD-bp) Indexed: 24.6 ml/m2 LVLd ap4: 8.1 cm LAV(MOD-sp2): 40.6 ml EDV(MOD-sp4): 85.7 ml LAV(MOD-sp4): 57.8 ml EDV(sp4-el): 86.9 ml LVAs ap4: 13.9 cm2 LVLs ap4: 7.1 cm ESV(MOD-sp4): 23.8 ml ESV(sp4-el): 23.3 ml EF(MOD-sp4): 72.2 % EF(sp4-el): 73.2 % __ SV(MOD-sp4): 61.9 ml SV(sp4-el): 63.7 ml LA A4 area: 20.1 cm2 SI(MOD-sp4): 30.3 ml/m2 LA dimension(2D): 4.3 cm RA A4 area: 12.8 cm2 Time Measurements MV dec time: 0.29 sec Doppler Measurements & Calculations MV E max marcial: 115.9 cm/sec Lat Peak E' Marcial: 4.8 cm/sec Med Peak E' Marcial: 4.0 cm/sec MV A max marcial: 128.6 cm/sec E/E' lat: 23.9 E/E' med: 29.1 MV E/A: 0.90 MV V2 max: 152.6 cm/sec Ao V2 max: 150.6 cm/sec MV max P.3 mmHg MV dec slope: 405.6 cm/sec2 Ao max P.1 mmHg MV V2 mean: 96.2 cm/sec Ao V2 mean: 94.1 cm/sec MV mean P.1 mmHg Ao mean P.3 mmHg MV V2 VTI: 43.6 cm Ao V2 VTI: 30.2 cm AV (velocity ratio): 1.2 MVA(VTI): 2.7 cm2 JOSIANE(I,D): 3.9 cm2 JOSIANE(V,D): 3.0 cm2 LV V1 max: 143.9 cm/sec SV(LVOT): 117.0 ml PA V2 max: 100.5 cm/sec LV V1 max P.3 mmHg PA V2 mean: 71.2 cm/sec LV V1 mean P.2 mmHg LV V1 mean: 107.1 cm/sec LV V1 VTI: 37.0 cm ECHO/Echo Complete Interpretation Summary Normal LV size. Severe concentric left ventricular hypertrophy. Left ventricular systolic function is normal. The left ventricular ejection fraction is 70 %. Dynamic LVOT gradient noted. Ordering Physician: Radha Moss Referring Physician: Radha Moss Performed By: Millie Cooper RCS 07/07/24 1608 Date _ Pavan Shell MD CC: Dr. Handy Henderson DO; AUDIE Martin ~ Date Dictated: 07/07/24 1405 Date Transcribed: 07/07/241607 Clinical Training Specialist: Signed [facility] Work Phone: CNOVon 06-17-2024 CNOV Office Visit (FAMPWS ) -- АНДРЕЙ NICKERSON ([id number]) 1960 M Date Time Provider Department 06/17/24 2:20 PM [facility] During your visit today, we recorded the following information about you: Temperature Pulse Respiration Blood pressure 97 degrees 68/minute 20/minute 130/70 Weight 115.7 kg Handy Henderson DO 06/18/2024 10:36 PM Signed CC: Jordanmaddie Nickerson is a 63 year old male who presents to the office to establish care. HPI: Obesity, states that he has been working on dietary improvements and is intentionally working on weight loss. His Weight is 255 lbs now, was previously at 260 lbs and 6 months ago was 272 lbs. Back pain, low back, intermittent, hx of injury/fall. Use of flexeril as needed, taking as prescribed. Also working with PHYSICAL THERAPY and stretches. Knows need for weight loss and more exercise as well. HTN, well controlled, taking medications as prescribed CKD, hx of renal transplant, continues to follow up with his [employer]. HPL, taking statin therapy with lipitor 40 mg a day + chronic fatigue Hx of aortic dilation and LVH on echo- + chronic intermittent dyspnea, no chest pressure or pain or palpitations or syncope PAST MEDICAL HISTORY Diagnosis Date Arrhythmia CKD (chronic kidney disease) stage 3, GFR 30-59 ml/min ([facility]) [facility] Coronary artery disease 2006 s/p PCI. 3 stents total Diabetes type 1, uncontrolled 1971 nephropathy, retinopathy, dx age 10, Dr. Leon [facility] Heart attack ([facility]) Hyperlipidemia Hypertension Lacunar stroke ([facility]) Macular edema [facility] MVP (mitral valve prolapse) Pancreatitis Proliferative diabetic retinopathy(362.02) [facility] Snoring Stroke ([facility]) 2017 Tobacco abuse PAST SURGICAL HISTORY Procedure Laterality Date AVASTIN (BEVACIZUMAB) 1.25MG INTRAVITREAL INJECTION OS (LEFT EYE) x5 (04/16/2015) Dr. 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 XCAPSL CTRC RMVL INSJ IO LENS PROSTH W/O ECP Left 03/10/2015 Cataract Extraction with PC IOL XCAPSL CTRC RMVL INSJ IO LENS PROSTH W/O ECP Right 04/01/2015 Cataract Extraction with PC IOL Social History: Social History Tobacco Use Smoking status: Former Current packs/day: 1.00 Average packs/day: 1 pack/day for 30.0 years (30.0 ttl pk-yrs) Types: Cigarettes Smokeless tobacco: Never Vaping Use Vaping status: Never Used Substance Use Topics Alcohol use: Not Currently Drug use: Not Currently Types: Marijuana Comment: occasional--last used cannibis 04/2019 FAMILY HISTORY Problem Relation Age of Onset Diabetes Mother Thyroid Mother Hyperlipidemia Mother Hypertension Mother No Known Problems Father No Ocular Disease Other Current Outpatient prescriptions: atorvastatin (LIPITOR) 40 mg tablet Take 1 tablet by mouth once daily. carvedilol (COREG) 12.5 mg tablet Take 1 tablet by mouth once daily. famotidine (PEPCID) 20 mg tablet Take 1 tablet by mouth two times a day. timolol maleate (TIMOPTIC) 0.5 % ophthalmic solution Use 1 Drop in both eyes two times a day. loperamide HCl (ANTI-DIARRHEAL) 2 mg tab Take 1 tablet by mouth as needed. cyclobenzaprine (FLEXERIL) 10 mg tablet Take 1 tablet by mouth three times a day as needed for muscle spasm or pain. furosemide (LASIX) 20 mg tablet Take 1 tablet by mouth every afternoon. amLODIPine (NORVASC) 2.5 mg tablet fluticasone (FLONASE) 50 mcg/actuation nasal spray Use 2 Sprays in each nostril once daily. Rinse mouth after use. sirolimus (RAPAMUNE) 0.5 mg tablet Take 1 mg by mouth once daily. propylene glycoL (SYSTANE COMPLETE) 0.6 % drop Use 1 Drop in both eyes four times daily. docusate sodium (COLACE) 100 mg capsule Take 100 mg by mouth twice daily. mycophenolate mofetil (CELLCEPT) 250 mg capsule Take by mouth twice daily. 4 caps q 12 hours sulfamethoxazole-trimethop rim (BACTRIM DS,SEPTRA DS) 800-160 mg per tablet Take by mouth twice daily. clopidogrel (PLAVIX) 75 mg tablet Take 1 tablet by mouth once daily. tamsulosin (FLOMAX) 0.4 mg TAKE 1 CAPSULE BY MOUTH EVERYDAY AT BEDTIME blood sugar diagnostic (ONETOUCH ULTRA TEST) test strip Checking blood sugars 3-4 times daily Insulin [place], Disposable, (BD ULTRAFINE III MINI PEN) 31 gauge x 3/16 use as directed up to four times daily, E11.9 Blood-Glu (more content not included)... Normal [facility] Basic metabolic 2000 panelon 06-03-2024 Anion gap [Moles/Vol] 6 mmol/L Low 8-15 [facility] Comment on above: Order Comment: Speci men Type: BLOOD SPECIMENOrdering Facility: [facility] Address: [address] [place] [address] Performed By: #### 2 4321-2 ####[facility] MELY THAYERGIBSONENZO [id number] [address] [place]#### 6875-9 ####[facility]ORATORYCLIA [id number] [place] [id number] [place] Calcium [Mass/Vol] 9.1 mg/dL Normal 8.5-10.2 [facility] Comment on above: Order Comment: Speci men Type: BLOOD SPECIMENOrdering Facility: [facility] Address: [address] [place] [address] Performed By: #### 2 4321-2 ####[facility] MILLTOWNCLIA [id number] [place] [address] [place]#### 6875-9 ####[facility]ORATORYCLIA [id number] [place] [address] [place] Chloride [Moles/Vol] 109 mmol/L High 98-107 [facility] Comment on above: Order Comment: Speci men Type: BLOOD SPECIMENOrdering Facility: [facility] Address: [address] [place] [address] Performed By: #### 2 4321-2 ####[facility] MILLTOWNCLIA [id number] [place] [address] [place]#### 6875-9 ####[facility]ORATORYCLIA [id number] [place] [address] [place] CO2 [Moles/Vol] 22 mmol/L Normal 22-30 [facility] Comment on above: Order Comment: Speci men Type: BLOOD SPECIMENOrdering Facility: [facility] Address: [address] [place] [address] Performed By: #### 2 4321-2 ####[facility] MILLTOWNCLIA [id number] [place] [address] [place]#### 6875-9 ####[facility]ORATORYCLIA [id number] [place] [address] [place] Creatinine [Mass/Vol] 2.19 mg/dL High 0.73-1.22 [facility] Comment on above: Order Comment: Praveen reyes Type: BLOOD SPECIMENOrdering Facility: [facility] [place] Address: [address] [place] [address] Performed By: #### 2 4321-2 ####[facility] HOSPITALNCLI [id number] [place] [address] [place]#### 6875-9 ####[facility] LABORATORYCLIA [id number] [address] STATES OF [facility] Creatinine and Glomerular filtration rate.predicted panel (S/P/Bld) 33 mL/min/1.73m??? Low >=60 [facility] Comment on above: Order Comment: Praveen reyes Type: BLOOD SPECIMENOrdering Facility: [facility] [place] Address: [facility] [place] [address] Result Comment: Leah mated Glomerular Filtration Rate (eGFR) is calculated using the 2020 CKD-EPI creatinine equation. This equation utilizes serum creatinine, sex, and age as parameters. The creatinine assay has traceable calibration to isotope dilution-mass spectrometry. Refer to KDIGO guidelines for clinical interpretation. In patients with unstable renal function, e.g. those with acute kidney injury, the eGFR may not accurately reflect actual GFR. Performed By: #### 2 4321-2 ####[facility] BL[facility] VAL[facility] HOSPITALLIA [id number] [place] [address] [place]#### 6875-9 ####[facility] LABORATORYCLIA [id number] [place] [address] [place] Glucose [Mass/Vol] 104 mg/dL High 74-99 [facility] Comment on above: Order Comment: Praveen reyes Type: BLOOD SPECIMENOrdering Facility: [facility] [place] Address: [address] [place] [address] Result Comment: The [place] [employer] (ADA) provides guidance for cutoff values for fasting glucose and random glucose. The ADA defines fasting as no caloric intake for at least 8 hours. Fasting plasma glucose results between 100 to 125 mg/dL indicate increased risk for diabetes (prediabetes). Fasting plasma glucose results greater than or equal to 126 mg/dL meet the criteria for diagnosis of diabetes. In the absence of unequivocal hyperglycemia, results should be confirmed by repeat testing. In a patient with classic symptoms of hyperglycemia or hyperglycemic crisis, random plasma glucose results greater than or equal to 200 mg/dL meet the criteria for diagnosis of diabetes. Reference: Standards of Medical Care in Diabetes 2016, [place] [employer]. Diabetes Care. 2016.39(Suppl 1). Performed By: #### 2 4321-2 ####[facility] BL[facility] VALLEY HOSPITALLIA [id number] [place] [address] [place]#### 6875-9 ####[facility] LABORATORYCLIA [id number] [place] [address] [place] [facility] Potassium [Moles/Vol] 4.3 mmol/L Normal 3.7-5.1 [facility] Comment on above: Order Comment: Speci men Type: BLOOD SPECIMENOrdering Facility: [facility] Address: [address] [place] [address] Performed By: #### 2 4321-2 ####[facility] HOSPITALLIA [id number] [place] [address] [place]#### 6875-9 ####[facility] LABORATORYCLIA [id number] [place] [address] [place] Sodium [Moles/Vol] 137 mmol/L Normal 136-144 [facility] Comment on above: Order Comment: Speci men Type: BLOOD SPECIMENOrdering Facility: [facility] [place] Address: [address] [place] [address] Performed By: #### 2 4321-2 ####[facility] HOSPITALLIA [id number] [place] [address] [place]#### 6875-9 ####[facility] LABORATORYCLIA [id number] [address] [place] Urea nitrogen [Mass/Vol] 20 mg/dL Normal 9-24 [facility] Comment on above: Order Comment: Speci men Type: BLOOD SPECIMENOrdering Facility: [facility] [place] Address: [address] [place] [address] Performed By: #### 2 4321-2 ####[facility] ERWMIRIAMLIA [id number] [place] [address] [place]#### 6875-9 ####[facility] LABORATORYCLIA [id number] [address] STATES [facility] CBC W Auto Differential pane l (Bld)on 06-03-2024 Basophils (Bld) [#/Vol] 0.04 10*3/uL Normal <0.11 [facility] Comment on above: Order Comment: Speci men Type: BLOOD SPECIMENOrdering Facility: [facility] [place] Address: [address] [place] [address] Performed By: #### 5 7021-8 ####[facility] HOSPITALMIRIAMLIA [id number] [place] [address] [place] Basophils/100 WBC (Bld) 0.8 % Normal [facility] Comment on above: Order Comment: Speci men Type: BLOOD SPECIMENOrdering Facility: [facility] [place] Address: [address] [place] [address] Performed By: #### 5 7021-8 ####[facility] MILLWMIRIAMLIA [id number] [place] [address] [place] Differential cell count method Nom (Bld) Auto Normal [facility] Comment on above: Order Comment: Speci men Type: BLOOD SPECIMENOrdering Facility: [facility] [place] Address: [address] [place] [address] Performed By: #### 5 7021-8 ####[facility] HOSPITALMIRIAMLIA [id number] [place] [address] [place] Eosinophils (Bld) [#/Vol] 0.07 10*3/uL Normal <0.46 [facility] Comment on above: Order Comment: Speci men Type: BLOOD SPECIMENOrdering Facility: [facility] [place] Address: [address] [place] [address] Performed By: #### 5 7021-8 ####[facility] HOSPITALENZO [id number] [place] [address] [place] Eosinophils/100 WBC (Bld) 1.5 % Normal [facility] Comment on above: Order Comment: Speci men Type: BLOOD SPECIMENOrdering Facility: [facility] [place] Address: [facility] [address] [place] [address] Performed By: #### 5 7021-8 ####[facility] HOSPITALENZO [id number] [place] [address] [place] Erythrocyte distribution width (RBC) [Ratio] 14.9 % Normal 11.5-15.0 [facility] Comment on above: Order Comment: Speci men Type: BLOOD SPECIMENOrdering Facility: [facility] [place] Address: [facility] [address] [place] [address] Performed By: #### 5 7021-8 ####[facility] HOSPITALENZO [id number] [place] [address] [place] Hematocrit (Bld) [Volume fraction] 42.5 % Normal 39.0-51.0 [facility] Comment on above: Order Comment: Speci men Type: BLOOD SPECIMENOrdering Facility: [facility] [place] Address: [facility] [address] [place] [address] Performed By: #### 5 7021-8 ####[facility] HOSPITALENZO [id number] [place] [address] [place] Hemoglobin (Bld) [Mass/Vol] 13.0 g/dL Normal 13.0-17.0 [facility] Comment on above: Order Comment: Speci men Type: BLOOD SPECIMENOrdering Facility: [facility] [place] Address: [address] [place] [address] Performed By: #### 5 7021-8 ####[facility] CEASARMIRIAMTISH [id number] [place] [address] [place] Immature granulocytes (Bld) [#/Vol] 0.04 10*3/uL Normal <0.10 [facility] Comment on above: Order Comment: Speci men Type: BLOOD SPECIMENOrdering Facility: [facility] Address: [address] [place] [address] Performed By: #### 5 7021-8 ####[facility] HOSPITALENZO [id number] [place] [address] [place] Immature granulocytes/100 WBC (Bld) 0.8 % Normal [facility] Comment on above: Order Comment: Speci men Type: BLOOD SPECIMENOrdering Facility: [facility] [place] Address: [address] [place] [address] Performed By: #### 5 7021-8 ####[facility] HOSPITALENZO [id number] [place] [address] [place] Lymphocytes (Bld) [#/Vol] 1.27 10*3/uL Normal 1.00-4.00 [facility] Comment on above: Order Comment: Speci men Type: BLOOD SPECIMENOrdering Facility: [facility] Address: [address] [place] [address] Performed By: #### 5 7021-8 ####[facility] HOSPITALAMRITA [id number] [place] [address] [place] Lymphocytes/100 WBC (Bld) 26.7 % Normal [facility] Comment on above: Order Comment: Speci men Type: BLOOD SPECIMENOrdering Facility: [facility] Address: [address] [place] [address] Performed By: #### 5 7021-8 ####[facility] JEOVANYJEANNIE [id number] [place] [address] [place] MCH (RBC) [Entitic mass] 27.5 pg Normal 26.0-34.0 [facility] Comment on above: Order Comment: Speci men Type: BLOOD SPECIMENOrdering Facility: [facility] [place] Address: [address] [place] [address] Performed By: #### 5 7021-8 ####[facility] HOSPITALAMRIT [id number] [place] [address] [place] MCHC (RBC) [Mass/Vol] 30.6 g/dL Normal 30.5-36.0 [facility] Comment on above: Order Comment: Speci men Type: BLOOD SPECIMENOrdering Facility: [facility] [place] Address: [address] [place] [address] Performed By: #### 5 7021-8 ####[facility] [id number] [place] [address] [place] MCV (RBC) [Entitic vol] 89.9 fL Normal 80.0-100.0 [facility] Comment on above: Order Comment: Speci men Type: BLOOD SPECIMENOrdering Facility: [facility] [place] Address: [address] [place] [address] Performed By: #### 5 7021-8 ####[facility] HOSPITALENZO [id number] [place] [address] [place] Monocytes (Bld) [#/Vol] 0.82 10*3/uL Normal <0.87 [facility] Comment on above: Order Comment: Speci men Type: BLOOD SPECIMENOrdering Facility: [facility] [place] Address: [address] [place] [address] Performed By: #### 5 7021-8 ####[facility] HOSPITALNCLIA [id number] [place] [address] [place] Monocytes/100 WBC (Bld) 17.3 % Normal [facility] Comment on above: Order Comment: Speci men Type: BLOOD SPECIMENOrdering Facility: [facility] Address: [address] [place] [address] Performed By: #### 5 7021-8 ####[facility] HOSPITALNCLIA [id number] [place] [address] [place] Neutrophils (Bld) [#/Vol] 2.51 10*3/uL Normal 1.45-7.50 [facility] Comment on above: Order Comment: Speci men Type: BLOOD SPECIMENOrdering Facility: [facility] [place] Address: [facility] [address] [place] [address] Performed By: #### 5 7021-8 ####[facility] [id number] [place] [address] [place] Neutrophils/100 WBC (Bld) 52.9 % Normal [facility] Comment on above: Order Comment: Speci men Type: BLOOD SPECIMENOrdering Facility: [facility] [place] Address: [address] [place] [address] Performed By: #### 5 7021-8 ####[facility] [id number] [place] [address] [place] Nucleated RBC (Bld) [#/Vol] 10*3/uL Normal <0.01 [facility] Comment on above: Order Comment: Speci men Type: BLOOD SPECIMENOrdering Facility: [facility] Address: [address] [place] [address] Performed By: #### 5 7021-8 ####[facility] [id number] [place] [address] [place] Nucleated RBC/100 WBC (Bld) [Ratio] 0.0 /100 WBC Normal [facility] Comment on above: Order Comment: Speci men Type: BLOOD SPECIMENOrdering Facility: [facility] Address: [address] [place] [address] Performed By: #### 5 7021-8 ####[facility]ENTERPRAKASH GARVEY [id number] [place] [address] [place] Platelet mean volume (Bld) [Entitic vol] 9.6 fL Normal 9.0-12.7 [facility] Comment on above: Order Comment: Speci men Type: BLOOD SPECIMENOrdering Facility: [facility] Address: [address] [place] [address] Performed By: #### 5 7021-8 ####[facility] CEASARAMRITDanielle [id number] [place] [address] [place] Platelets (Bld) [#/Vol] 187 10*3/uL Normal 150-400 [facility] Comment on above: Order Comment: Speci men Type: BLOOD SPECIMENOrdering Facility: [facility] [place] Address: [address] [place] [address] Performed By: #### 5 7021-8 ####[facility] JEOVANYGIBSONAMRITDanielle [id number] [place] [address] [place] RBC (Bld) [#/Vol] 4.73 10*6/uL Normal 4.20-6.00 [facility] Comment on above: Order Comment: Speci men Type: BLOOD SPECIMENOrdering Facility: [facility] [place] Address: [address] [place] [address] Performed By: #### 5 7021-8 ####[facility] HOSPITALENZO [id number] [place] [address] [place] WBC (Bld) [#/Vol] 4.75 10*3/uL Normal 3.70-11.00 [facility] Comment on above: Order Comment: Speci men Type: BLOOD SPECIMENOrdering Facility: [facility] Address: [address] [place] [address] Performed By: #### 5 7021-8 ####[facility] HOSPITALTOWNCLIA [id number] [place] [address] [place] Cancer Ag15-3 SerPl-aCncon 0 06-03-2024 Cancer Ag 15-3 Qn 19.7 U/mL Normal <26.0 [facility] Comment on above: Order Comment: Speci men Type: BLOOD SPECIMENOrdering Facility: [facility] Address: [address] [place] [address] Result Comment: The CA 15-3 test methodology used is the Electrochemiluminescence Immunoassay by [employer]. Results obtained with different methods or kits cannot be used interchangeably. Performed By: #### 2 4321-2 ####[facility]PITALNCLIA [id number] [address] [place]#### 6875-9 ####[facility] LABORATORYCLIA [id number] [address] OF [facility] Cardiology Visit Reporton Cardiology Visit Report [facility] [address] [place] [address] OFFICE VISIT Date of Service: 06/03/24 MR#: [id number] Acct: [id number] Name: АНДРЕЙ NICKERSON Rep #: [id number] : 1960 Provider: AUDIE Haines Age/Sex: 63/M Location: [facility] Status: Signed HPI HPI History of Present Illness Details: Андрей Nickerson is a 63-year-old male who presents to the office today for a cardiovascular outpatient follow-up. He has a history of hypertension, diabetes mellitus type I since age 10, chronic kidney disease stage IV with kidney transplant in March 2021. He does have a history of coronary artery disease status post drug-eluting stent to the left anterior descending artery in 2005, PCI to the LAD in 2008, drug-eluting stents to the LAD in 2011. In September 2019, he underwent a cardiac catheterization which demonstrated patency of his LAD stents in his circumflex artery and right coronary artery had mild diffuse disease. His echocardiogram had demonstrated an ejection fraction of 70% with severe left ventricular hypertrophy. He had a stress test in July 2020 which was normal. He did develop COVID in May 2021 with acute encephalopathy. His biggest issue is the pain in his back. He is waiting to see his PCP next week about this. From a cardiac standpoint, the patient is doing well. He denies any palpitations, chest pain, pressure or heaviness. He does have SOB with exertion-this is nothing new or worsening. He denies Orthopnea, and PND. He denies any decrease in energy level, myalgias, or claudication. He does acknowledge bilateral lower extremity edema. He states that he is following with Dr. Lawrence for vascular insufficiency. This is getting better with his lymphatic pumps. This is helping with his swelling. He has lost weight. He denies dizziness, lightheadedness, syncopal or near syncopal episodes, and headaches. 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 Is patient in pain?: No Allergies No Known Allergies Allergy (Verified 06/03/24 14:18) Medications ???Medication ???Instructions ???Recorded ???Confirmed ???Type albuterol sulfate 90 mcg/actuation 1 - 2 puff inhalation Q6H PRN TN N 07/24/19 06/03/24 History aerosol inhaler Wheezing BP cuff #1 ea 11/27/19 02/13/24 Rx pen needle, diabetic 32 gauge x #400 ea 02/12/20 02/13/24 Rx (BD Ultra-Fine Cici Pen Needle) tamsulosin 0.4 mg capsule 0.4 mg PO QHS 04/22/20 06/03/24 Hi story propylene glycol 0.6 % eye drops 1 drp ophthalmic (eye) DAILY PRN 0 07/28/21 06/03/24 History (Systane Balance) lubricant mycophenolate mofetil 250 mg 500 mg PO BID 09/19/21 06/03/24 Hi story capsule sulfamethoxazole 800 1.5 tab PO .QOD 09/19/21 06/03/24 History mg-trimethoprim 160 mg tablet blood-glucose sensor (Dexcom G6 #9 ea 09/22/21 02/13/24 Rx Sensor device) blood-glucose transmitter (Dexcom #1 ea 09/22/21 02/13/24 Rx G6 Transmitter device) sirolimus 0.5 mg tablet 1 mg PO DAILY 01/30/22 06/03/24 Hi story atorvastatin 40 mg tablet 40 mg PO QHS #90 tabs 06/09/2207/25 Rx blood sugar diagnostic (Blood #100 ea 10/13/22 02/13/24 Rx Glucose Test strips) blood-glucose meter #1 ea 10/23/22 02/13/24 Rx timolol 0.5 % eye drops 1 drp ophthalmic (eye) DAILY 05/0706/03/24 History blood-glucose meter (Accu-Chek #1 ea 06/04/23 02/13/24 Rx Guide Glucose Meter) lancing device with lancets kit #1 ea 06/04/23 02/13/24 Rx (Accu-Chek Softclix Lancing Device+Lancets kit) carvedilol 12.5 mg tablet 12.5 mg PO BID #180 tabs 07/02/23 06/03/24 Rx clopidogrel 75 mg tablet 75 mg PO DAILY #90 tabs 07/02/23 0 06/03/24 Rx bupropion HCl 100 mg tablet,12 hr 100 mg PO BID #60 ea 08/15/2307/25 Rx sustained-release (Wellbutrin SR) famotidine 20 mg tablet (Pepcid) 20 mg PO DAILY PRN 12/04/23 History Novolog U-100 Insulin aspart 100 120 unit (1.2 mL) continuous 02/1306/03/24 Rx unit/mL subcutaneous solution subcutaneous infusion .continuous (insulin aspart U-100) #108 mL blood sugar diagnostic (Accu-Chek #100 ea 02/14/24 02/14/24 Rx Guide test strips) amlodipine 2.5 mg tablet 2.5 mg PO DAILY #30 tabs 04/09/24 06/03/24 Rx aspirin 325 mg tablet 81 mg PO DAILY 06/03/24 06/03/24 H istory Have you fallen in the past year?: No [facility] Medical History Diabetes mellitus type 1 TIA (transient ischemic attack) Toxic metabolic encephalopathy (more content not included)... Normal [facility] Sirolimus Bld-mCncon 025 Sirolimus (Bld) [Mass/Vol] 5.3 ng/mL Normal 4.0-12.0 [facility] Comment on above: Order Comment: Speci men Type: BLOOD SPECIMENOrdering Facility: [facility] Address: [address] [place] [address] Result Comment: The optimal therapeutic range may vary based on the indication for treatment, transplant type, time post transplant, simultaneous use of other immunosuppressive drugs, and clinical or institutional protocols. It is recommended to interpret the results in conjunction with this information and the patient's clinical context. This test was developed and its performance characteristics determined by [facility]'s Shamir Alfredo [facility] Pathology and Laboratory Medicine [place] ([facility]). It has not been cleared or approved by the FDA. [facility] is regulated under CLIA as qualified to perform high-complexity testing. This test is used for clinical purposes. It should not be regarded as investigational or for research. 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 JAMEY 11/27/23 Triny Palmer 05/12/2024 2:25 PM Signed Diabetes Foot Care Instructions When you have diabetes, proper foot care is very important. Poor foot care may lead to amputation of a foot or leg. As a person with diabetes, you are more vulnerable to foot problems, because diabetes can damage your nerves and reduce blood flow to your feet. Here are some diabetes foot care tips to follow: Wash and Dry Your Feet Daily Use mild soaps Use warm water Pat your skin dry; do not rub. Thoroughly dry your feet. After washing, use lotion on your feet to prevent cracking. Do not put lotion between your toes. Examine Your Feet Each Day Check the tops and bottoms of your feet. Have someone else look at your feet if you cannot see them. Check for dry, cracked skin. Look for blisters, cuts, scratches, or other sores. Check for redness, increased warmth, or tenderness when touching any area of your feet. Check for ingrown toenails, corns, and calluses. If you get a blister or sore from your shoes, do not pop it. Apply a bandage and wear a different pair of shoes. Take Care of Your Toenails Cut toenails after bathing, when they are soft. Cut toenails straight across and smooth with a nail file. Avoid cutting into the corners of toes. Do not cut cuticles. If you have neuropathy (or decreased sensation in your feet) a track helper should always cut your toenails. Be Careful When Exercising Walk and exercise in comfortable shoes. Do not exercise when you have open sores on your feet. Protect Your Feet With Shoes and Socks Never go barefoot. Always protect your feet by wearing shoes or hard-soled slippers or footwear. Avoid shoes with high heels and pointed toes. Avoid shoes that expose your toes or heels (such as open-toed shoes or sandals). These types of shoes increase your risk for injury and potential infections. Try on new footwear with the type of socks you usually wear. Do not wear new shoes for more than an hour at a time. Change your socks daily. Look and feel inside your shoes before putting them on to make sure there are no foreign objects or rough areas. Avoid tight socks. Wear natural-fiber socks (cotton, wool, or a cotton-wool blend). Wear special shoes if your health care provider recommends them. Wear shoes/boots that will protect your feet from various weather conditions (cold, moisture, etc.). Make sure your shoes fit properly. If you have neuropathy (nerve damage), you may not notice that your shoes are too tight. Perform the footwear test described below. Footwear Test Use this simple test to see if your shoes fit correctly: Stand on a piece of paper. (Make sure you are standing and not sitting, because your foot changes shape when you stand.) Trace the outline of your foot. Trace the outline of your shoe. Compare the tracings: Is the shoe too narrow? Is your foot crammed into the shoe? The shoe should be at least 1/2 inch longer than your longest toe and as wide as your foot. Proper Shoe Choices The following types of shoes are best for people with diabetes Closed toes and heels Leather uppers without a seam inside At least 1/2 inch extra space at the end of your longest toe Inside of shoe should be soft with no rough areas Outer sole should be made of stiff material Shoes should be at least as wide as your feet Tips for Foot Care in Diabetes Don't wait to treat a minor foot problem if you have diabetes. Follow your health care provider's guidelines and first aid guidelines. Report foot injuries and infections to your health care provider immediately. Check water temperature with your elbow, not your foot. Do not use a heating pad on your feet. Do not cross your legs. Do not self-treat your corns, calluses, or other foot problems. Go to your health care provider or track helper to treat these conditions. Triny Palmer 05/12/2024 2:44 PM Signed Last saw pcp: 03/12/24 Subjective: Patient presents to clinic c/o painful toenails. They state that the nails are especially painful with shoe gear and pressure. Patient states that nails 1-5 b/l are painful. Patient admits to being diabetic. No other pedal complaints at this time. Patient states no change in medications or medical history since last visit. Objective: Patient presents to clinic ambulating in diabetic boot Vasc: DP and PT pulse (more content not included)... Normal [facility] CNOVon 05-10-2024 CNOV Office Visit (UCWSTR ) -- АНДРЕЙ NICKERSON ([id number]) 1960 M Date Time Provider Department 05/10/24 1:45 PM NIKKY [facility]EN [facility] During your visit today, we recorded the following information about you: Temperature Pulse Respiration Blood pressure 97.6 degrees 73/minute 20/minute 136/76 Weight 116 kg Nikky Chen APRN.ENGINE SETTER 05/10/2024 2:21 PM Signed This note was created using [employer]. Subjective Андрей Nickerson is a 63 year old male. HPI couple of weeks feeling run down, tired. Clear mucus from nose and throat every morning. Denies fever, headaches. Loose stool x days. BS have been good Review of Systems Constitutional: Positive for appetite change and fatigue. HENT: Positive for congestion. Gastrointestinal: Positive for diarrhea. Objective BP 136/76 Pulse 73 Temp 36.4 ?C (97.6 ?F) Resp 20 Wt 116 kg (255 lb 11.7 oz) SpO2 99% BMI 36.69 kg/m? Physical Exam Cardiovascular: Rate and Rhythm: Normal rate. Pulmonary: Breath sounds: Normal breath sounds. Abdominal: General: Bowel sounds are normal. Skin: General: Skin is warm. Neurological: Mental Status: He is alert. Assessment and Plan ASSESSMENT/PLAN: 1. Enteritis due to Rotavirus - ICD9: 008.61, ICD10: A08.0 Anti-diarrheal,ordered If symptoms persist or get worse follow up in the ED Nikky Chen APRN.CNP Medical Decision Making: Problems: Low: Acute, uncomplicated illness or injury Risk: Moderate: Drug management Medical Decision Making Level: 3 - Low Allergies As of Date: 05/10/2024 (No Known Allergies) Date Reviewed: 05/10/2024 Reviewed by: Kesha Mace LPN - Fully Assessed Reason for Visit: Nausea [70] Cmt: Diarrhea x 1 days Primary Visit Diagnosis:Enteritis due to Rotavirus [A08.0] Order(s):loperamide HCl (ANTI-DIARRHEAL) 2 mg tabTake 1 tablet by mouth as needed.Disp: 18 tabletRfl: 0 Prescriptions as of 05/10/2024 - loperamide HCl (ANTI-DIARRHEAL) 2 mg tab Take 1 tablet by mouth as needed. - timolol maleate (TIMOPTIC) 0.5 % ophthalmic solution USE 1 DROP IN BOTH EYES EVERY MORNING. - cyclobenzaprine (FLEXERIL) 10 mg tablet Take 1 tablet by mouth three times a day as needed for muscle spasm or pain. - furosemide (LASIX) 20 mg tablet Take 1 tablet by mouth every afternoon. - carvedilol (COREG) 12.5 mg tablet Take 1 tablet by mouth once daily. - atorvastatin (LIPITOR) 40 mg tablet Take 1 tablet by mouth once daily. - famotidine (PEPCID) 20 mg tablet Take 1 tablet by mouth two times a day. - amLODIPine (NORVASC) 2.5 mg tablet - fluticasone (FLONASE) 50 mcg/actuation nasal spray Use 2 Sprays in each nostril once daily. Rinse mouth after use. - sirolimus (RAPAMUNE) 0.5 mg tablet Take 1 mg by mouth once daily. - propylene glycoL (SYSTANE COMPLETE) 0.6 % drop Use 1 Drop in both eyes four times daily. - docusate sodium (COLACE) 100 mg capsule Take 100 mg by mouth twice daily. - mycophenolate mofetil (CELLCEPT) 250 mg capsule Take by mouth twice daily. 4 caps q 12 hours - sulfamethoxazole-trimethop rim (BACTRIM DS,SEPTRA DS) 800-160 mg per tablet Take by mouth twice daily. - clopidogrel (PLAVIX) 75 mg tablet Take 1 tablet by mouth once daily. - tamsulosin (FLOMAX) 0.4 mg TAKE 1 CAPSULE BY MOUTH EVERYDAY AT BEDTIME - blood sugar diagnostic (ONETOUCH ULTRA TEST) test strip Checking blood sugars 3-4 times daily - Insulin [place], Disposable, (BD ULTRAFINE III MINI PEN) 31 gauge x 3/16 use as directed up to four times daily, E11.9 - Blood-Glucose Sensor (DEXCOM G6 SENSOR) darleen Change Sensor every 14 days Patient reading blood sugar 12 times daily - Blood-Glucose Meter,Continuous (DEXCOM G4 B OPERATOR-SHARE KIT) misc One [place] device, patient checks blood sugars 12 times daily - Blood-Glucose Transmitter (DEXCOM G6 TRANSMITTER) darleen 1 Each as directed. - Blood-Glucose Meter,Continuous (DEXCOM G6 B OPERATOR) misc 1 Each as directed. - insulin detemir U-100 (LEVEMIR FLEXTOUCH U-100 INSULN) 100 unit/mL (3 mL) inpn injection INJECT 36 UNITS SUBCUTANEOUSLY DAILY AT BEDTIME. - Lancets (MICROLET LANCET) lancets Test blood sugar(s) 3-4 times daily. Dx: 250.00 . Insulin: Yes - Blood-Glucose Meter (ONETOUCH ULTRA2) monitoring kit 1 Each as needed. 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 Meds Comments as of 07/25/2012: Insulin pump with Novolog Problem List As Of Date 05/10/2024 Noted Resolved Obesity (BMI 30.0-34.9) [E66.811] 07/25/2012 Tobacco abuse [Z72.0] 07/25/2012 Hypercholesteremia [E78.00] 07/25/2012 Coronary artery disease [I25.10] 07/25/2012 Hypertension [I10] 07/25/2012 Diabetes mellitus type 2 in obese (HCC) [E11.69*07/25/2012 08/10/2015 Background diabetic ret (more content not included)... Normal [facility] CNOVon 03-12-2024 CNOV Office Visit (FAMPWS ) -- АНДРЕЙ NICKERSON ([id number]) 1960 M Date Time Provider Department 03/12/24 3:00 PM HANDY HENDERSON FAMPWS During your visit today, we recorded the following information about you: Temperature Pulse Respiration Blood pressure 97 degrees 76/minute 20/minute 136/70 Weight 120 kg Handy Henderson, DO 03/12/2024 9:16 PM Signed CC: Андрей Nickerson is a 63 year old male who presents to the office for follow up HPI: Back pain, low back, intermittent, hx of injury/fall. Use of flexeril as needed, taking as prescribed. Also working with PHYSICAL THERAPY and stretches. Knows need for weight loss and more exercise as well. HTN, well controlled, taking medications as prescribed CKD, hx of renal transplant, continues to follow up with his [employer]. HPL, taking statin therapy with lipitor 40 mg a day Cholesterol, Total Date Value Ref Range Status 12/10/2023 79 <200 mg/dL Final Comment: <200 mg/dL, Desirable 200-239 mg/dL, Borderline high >239 mg/dL, High Reference: 1. National Cholesterol Education Program ATP III Guideline At-A-Glance Quick Desk Reference: National Heart, Lung, and Blood [place]. National Institutes of Health. 2001: NIH Publication No. 3305. HDL Cholesterol Date Value Ref Range Status 12/10/2023 41 >39 mg/dL Final Comment: 40-59 mg/dL, Acceptable >59 mg/dL, High: Negative risk factor for coronary heart disease <40 mg/dL, Low: Positive risk factor for coronary heart disease Reference: 1. National Cholesterol Education Program ATP III Guideline At-A-Glance Quick Desk Reference: National Heart, Lung, and Blood [place]. National Institutes of Health. 2001: NIH Publication No. -3305. LDL Cholesterol Date Value Ref Range Status 11/20/2022 28 <100 mg/dL Final Comment: <100 mg/dL, Optimal 100-129 mg/dL, Near optimal/above optimal 130-159 mg/dL, Borderline high 160-189 mg/dL, High >189 mg/dL, Very high Secondary prevention optimal LDL Cholesterol levels are recommended to be < 70 mg/dL Triglyceride Date Value Ref Range Status 12/10/2023 68 <150 mg/dL Final Comment: <150 mg/dL, Normal 150-199 mg/dL, Borderline high 200-499 mg/dL, High >499 mg/dL, Very high Reference: 1. National Cholesterol Education Program ATP III Guideline At-A-Glance Quick Desk Reference: National Heart, Lung, and Blood [place]. National Institutes of Health. 2001: [facility] Publication No. 01-3305. Glucose (mg/dL) Date Value 02/21/2024 155 01/26/2021 141 Potassium (mmol/L) Date Value 02/21/2024 4.6 01/26/2021 3.5 Sodium (mmol/L) Date Value 02/21/2024 137 01/26/2021 140 Chloride (mmol/L) Date Value 02/21/2024 107 01/26/2021 97 CO2 (mmol/L) Date Value 02/21/2024 20 01/26/2021 24 Creatinine (mg/dL) Date Value 02/21/2024 2.56 01/26/2021 11.85 BUN (mg/dL) Date Value 02/21/2024 21 01/26/2021 54 Anion Gap (mmol/L) Date Value 02/21/2024 10 01/26/2021 19 Calcium (mg/dL) Date Value 01/26/2021 9.8 Calcium, Total (mg/dL) Date Value 02/21/2024 9.4 Protein, Total (g/dL) Date Value 04/06/2023 5.7 01/26/2021 6.4 Albumin (g/dL) Date Value 12/10/2023 3.7 05/11/2021 3.8 01/26/2021 3.6 Bilirubin, Total (mg/dL) Date Value 12/10/2023 0.4 01/26/2021 0.3 Alkaline Phosphatase (U/L) Date Value 04/06/2023 199 01/26/2021 101 AST (U/L) Date Value 12/10/2023 21 01/26/2021 16 ALT (U/L) Date Value 12/10/2023 28 01/26/2021 26 Hemoglobin (g/dL) Date Value 02/21/2024 11.7 01/26/2021 17.8 Hematocrit (%) Date Value 02/21/2024 39.5 01/26/2021 56.0 WBC (k/uL) Date Value 02/21/2024 5.22 01/26/2021 12.61 PAST MEDICAL HISTORY Diagnosis Date Arrhythmia CKD (chronic kidney disease) stage 3, GFR 30-59 ml/min ([facility]) [facility] Coronary artery disease 2006 s/p PCI. 3 stents total Diabetes type 1, uncontrolled 1971 nephropathy, retinopathy, dx age 10, Dr. Leon [facility] Heart attack ([facility]) Hyperlipidemia Hypertension Lacunar stroke ([facility]) Macular edema [facility] MVP (mitral valve prolapse) Pancreatitis Proliferative diabetic retinopathy(362.02) [facility] Snoring Stroke ([facility]) 2017 Tobacco abuse PAST SURGICAL HISTORY Procedure Laterality Date AVASTIN (BEVACIZUMAB) 1.25MG INTRAVITREAL INJECTION OS (LEFT EYE) x5 (04/16/2015) Dr. Connelly CANALOPLASTY W/O STENT Right 01/12/2022 Canaloplasty 360 degrees / Trabeculotomy 180 degrees CARDIAC CATH 2006, 2008, 2011 mid / distal LAD stents DENISHA COLONOSCOPY FLX DX W/COLLJ SPEC WHEN PFRMD 10/08/2018 Colonoscopy PAST SURGICAL HISTORY OF Bilateral Keratectomy PAST SURGICAL HISTORY OF N/A 03/19/2020 Laparoscopic peritoneal dialysis catheter placement with omentopexy- Shamir Tsai MD PAST SURGICAL HISTORY OF 03/2020 PD Catheter PAST S (more content not included)... Normal [facility] Basic metabolic 2000 panelon 02-21-2024 Anion gap [Moles/Vol] 10 mmol/L Normal 8-15 [facility] Comment on above: Order Comment: Speci men Type: BLOOD SPECIMENOrdering Facility: [facility] Address: [address], [place] [address] Performed By: #### 2 4321-2, 6875-9 ####[facility] LABCLIA [id number] [place] [address] [place] Calcium [Mass/Vol] 9.4 mg/dL Normal 8.5-10.2 [facility] Comment on above: Order Comment: Speci men Type: BLOOD SPECIMENOrdering Facility: [facility] Address: [address] [place] [address] Performed By: #### 2 4321-2, 6875-9 ####[facility] LABCLIA [id number] [place] [address] [place] Chloride [Moles/Vol] 107 mmol/L Normal 98-107 [facility] Comment on above: Order Comment: Speci men Type: BLOOD SPECIMENOrdering Facility: [facility] Address: [address] [place] [address] Performed By: #### 2 4321-2, 6875-9 ####[facility] LABCLIA [id number] [place] [address] [place] CO2 [Moles/Vol] 20 mmol/L Low 22-30 [facility] Comment on above: Order Comment: Speci men Type: BLOOD SPECIMENOrdering Facility: [facility] [place] Address: [address] [place] [address] Performed By: #### 2 4321-2, 6875-9 ####[facility] LABCLIA [id number] [place] [address] [place] Creatinine [Mass/Vol] 2.56 mg/dL High 0.73-1.22 [facility] Comment on above: Order Comment: Speci men Type: BLOOD SPECIMENOrdering Facility: [facility] Address: [address] [place] [address] Performed By: #### 2 4321-2, 6875-9 ####[facility] LABCLIA [id number] [place] [id number] [place] Creatinine and Glomerular filtration rate.predicted panel (S/P/Bld) 28 mL/min/1.73m??? Low >=60 [facility] Comment on above: Order Comment: Speci men Type: BLOOD SPECIMENOrdering Facility: [facility] [place] Address: [address] [place] [address] Result Comment: Leah mated Glomerular Filtration Rate (eGFR) is calculated using the 2020 CKD-EPI creatinine equation. This equation utilizes serum creatinine, sex, and age as parameters. The creatinine assay has traceable calibration to isotope dilution-mass spectrometry. Refer to KDIGO guidelines for clinical interpretation. In patients with unstable renal function, e.g. those with acute kidney injury, the eGFR may not accurately reflect actual GFR. Performed By: #### 2 4321-2, 6875-9 ####[facility] LABIA [id number] [address] [address] [place] Glucose [Mass/Vol] 155 mg/dL High 74-99 [facility] Comment on above: Order Comment: Praveen reyes Type: BLOOD SPECIMENOrdering Facility: [facility] Address: [address] [place] [address] Result Comment: The [place] Diabetes [employer] (ADA) provides guidance for cutoff values for fasting glucose and random glucose. The ADA defines fasting as no caloric intake for at least 8 hours. Fasting plasma glucose results between 100 to 125 mg/dL indicate increased risk for diabetes (prediabetes). Fasting plasma glucose results greater than or equal to 126 mg/dL meet the criteria for diagnosis of diabetes. In the absence of unequivocal hyperglycemia, results should be confirmed by repeat testing. In a patient with classic symptoms of hyperglycemia or hyperglycemic crisis, random plasma glucose results greater than or equal to 200 mg/dL meet the criteria for diagnosis of diabetes. Reference: Standards of Medical Care in Diabetes 2016, [place] [employer]. Diabetes Care. 2016.39(Suppl 1). Performed By: #### 2 4321-2, 6875-9 ####[facility] LABIA [id number] [address] [address] [place] Potassium [Moles/Vol] 4.6 mmol/L Normal 3.7-5.1 [facility] Comment on above: Order Comment: Praveen reyes Type: BLOOD SPECIMENOrdering Facility: [facility] [place] Address: [address] [place] [id number] Performed By: #### 2 4321-2, 6875-9 ####[facility] LABCLIA [id number] [place] [id number] [place] Sodium [Moles/Vol] 137 mmol/L Normal 136-144 [facility] Comment on above: Order Comment: Speci men Type: BLOOD SPECIMENOrdering Facility: [facility] Address: [address] [place] [address] Performed By: #### 2 4321-2, 6875-9 ####[facility] LABCLIA [id number] [place] [address] [place] Urea nitrogen [Mass/Vol] 21 mg/dL Normal 9-24 [facility] Comment on above: Order Comment: Speci men Type: BLOOD SPECIMENOrdering Facility: [facility] [place] Address: [address] [place] [address] Performed By: #### 2 4321-2, 6875-9 ####[facility] LABCLIA [id number] [place] [address] [place] CBC W Auto Differential pane l (Bld)on 02-21-2024 Basophils (Bld) [#/Vol] 0.04 10*3/uL Normal <0.11 [facility] Comment on above: Order Comment: Speci men Type: BLOOD SPECIMENOrdering Facility: [facility] [place] Address: [address] [place] [address] Performed By: #### 5 7021-8 ####[facility] LABCLIA [id number] [place] [id number] [place] Basophils/100 WBC (Bld) 0.8 % Normal [facility] Comment on above: Order Comment: Speci men Type: BLOOD SPECIMENOrdering Facility: [facility] [place] Address: [address] [place] [address] Performed By: #### 5 7021-8 ####[facility] LABCLIA [id number] [place] [address] [place] Differential cell count method Nom (Bld) Auto Normal [facility] Comment on above: Order Comment: Speci men Type: BLOOD SPECIMENOrdering Facility: [facility] [place] Address: [address] [place] [address] Performed By: #### 5 7021-8 ####[facility] LABCLIA [id number] [place] [address] [place] Eosinophils (Bld) [#/Vol] 0.06 10*3/uL Normal <0.46 [facility] Comment on above: Order Comment: Speci men Type: BLOOD SPECIMENOrdering Facility: [facility] [place] Address: [address] [place] [address] Performed By: #### 5 7021-8 ####[facility] LABCLIA [id number] [place] [address] [place] Eosinophils/100 WBC (Bld) 1.1 % Normal [facility] Comment on above: Order Comment: Speci men Type: BLOOD SPECIMENOrdering Facility: [facility] Address: [address] [place] [address] Performed By: #### 5 7021-8 ####[facility] LABCLIA [id number] [place] [address] [place] Erythrocyte distribution width (RBC) [Ratio] 15.0 % Normal 11.5-15.0 [facility] Comment on above: Order Comment: Speci men Type: BLOOD SPECIMENOrdering Facility: [facility] Address: [address] [place] [address] Performed By: #### 5 7021-8 ####[facility] LABCLIA [id number] [place] [address] [place] Hematocrit (Bld) [Volume fraction] 39.5 % Normal 39.0-51.0 [facility] Comment on above: Order Comment: Speci men Type: BLOOD SPECIMENOrdering Facility: [facility] Address: [address] [place] [address] Performed By: #### 5 7021-8 ####[facility] LABIA [id number] [place] [address] [place] Hemoglobin (Bld) [Mass/Vol] 11.7 g/dL Low 13.0-17.0 [facility] Comment on above: Order Comment: Speci men Type: BLOOD SPECIMENOrdering Facility: [facility] [place] Address: [address] [place] [address] Performed By: #### 5 7021-8 ####[facility] LABIA [id number] [place] [address] [place] Immature granulocytes (Bld) [#/Vol] 0.05 10*3/uL Normal <0.10 [facility] Comment on above: Order Comment: Speci men Type: BLOOD SPECIMENOrdering Facility: [facility] [place] Address: [address] [place] [address] Performed By: #### 5 7021-8 ####[facility] LABIA [id number] [place] [address] [place] Immature granulocytes/100 WBC (Bld) 1.0 % Normal [facility] Comment on above: Order Comment: Speci men Type: BLOOD SPECIMENOrdering Facility: [facility] [place] Address: [address] [place] [address] Performed By: #### 5 7021-8 ####[facility] LABIA [id number] [place] [address] [place] Lymphocytes (Bld) [#/Vol] 1.20 10*3/uL Normal 1.00-4.00 [facility] Comment on above: Order Comment: Speci men Type: BLOOD SPECIMENOrdering Facility: [facility] Address: [address] [place] [address] Performed By: #### 5 7021-8 ####[facility] LABCLIA [id number] [place] [address] [place] Lymphocytes/100 WBC (Bld) 23.0 % Normal [facility] Comment on above: Order Comment: Speci men Type: BLOOD SPECIMENOrdering Facility: [facility] [place] Address: [address] [place] [address] Performed By: #### 5 7021-8 ####[facility] LABIA [id number] [place] [address] [place] MCH (RBC) [Entitic mass] 26.9 pg Normal 26.0-34.0 [facility] Comment on above: Order Comment: Speci men Type: BLOOD SPECIMENOrdering Facility: [facility] [place] Address: [address] [place] [address] Performed By: #### 5 7021-8 ####[facility] LABIA [id number] [place] [address] [place] MCHC (RBC) [Mass/Vol] 29.6 g/dL Low 30.5-36.0 [facility] Comment on above: Order Comment: Speci men Type: BLOOD SPECIMENOrdering Facility: [facility] [place] Address: [address] [place] [address] Performed By: #### 5 7021-8 ####[facility] [id number] [place] [address] [place] MCV (RBC) [Entitic vol] 90.8 fL Normal 80.0-100.0 [facility] Comment on above: Order Comment: Speci men Type: BLOOD SPECIMENOrdering Facility: [facility] [place] Address: [address] [place] [address] Performed By: #### 5 7021-8 ####[facility] LABIA [id number] [place] [address] [place] Monocytes (Bld) [#/Vol] 0.90 10*3/uL High <0.87 [facility] Comment on above: Order Comment: Speci men Type: BLOOD SPECIMENOrdering Facility: [facility] Address: [address] [place] [address] Performed By: #### 5 7021-8 ####[facility] LABCLIA [id number] [address] [address] [place] Monocytes/100 WBC (Bld) 17.2 % Normal [facility] Comment on above: Order Comment: Speci men Type: BLOOD SPECIMENOrdering Facility: [facility] Address: [address] [place] [address] Performed By: #### 5 7021-8 ####[facility] LABCLIA [id number] [place] [id number] [place] Neutrophils (Bld) [#/Vol] 2.97 10*3/uL Normal 1.45-7.50 [facility] Comment on above: Order Comment: Speci men Type: BLOOD SPECIMENOrdering Facility: [facility] [place] Address: [address] [place] [address] Performed By: #### 5 7021-8 ####[facility] LABCLIA [id number] [place] [id number] [place] Neutrophils/100 WBC (Bld) 56.9 % Normal [facility] Comment on above: Order Comment: Speci men Type: BLOOD SPECIMENOrdering Facility: [facility] Address: [address] [place] [address] Performed By: #### 5 7021-8 ####[facility] LABCLIA [id number] [address] [address] [place] Nucleated RBC (Bld) [#/Vol] 10*3/uL Normal <0.01 [facility] Comment on above: Order Comment: Speci men Type: BLOOD SPECIMENOrdering Facility: [facility] Address: [address] [place] [address] Performed By: #### 5 7021-8 ####[facility] LABCLIA [id number] [place] [address] [place] Nucleated RBC/100 WBC (Bld) [Ratio] 0.0 /100 WBC Normal [facility] Comment on above: Order Comment: Speci amy Type: BLOOD SPECIMENOrdering Facility: [facility] Address: [address] [place] [address] Performed By: #### 5 7021-8 ####[facility] LABCLIA [id number] [place] [address] [place] Platelet mean volume (Bld) [Entitic vol] 9.8 fL Normal 9.0-12.7 [facility] Comment on above: Order Comment: Bari amy Type: BLOOD SPECIMENOrdering Facility: [facility] [place] Address: [facility] [address] [address] Performed By: #### 5 7021-8 ####[facility] LABCLIA [id number] [place] [address] [place] Platelets (Bld) [#/Vol] 210 10*3/uL Normal 150-400 [facility] Comment on above: Order Comment: Bari amy Type: BLOOD SPECIMENOrdering Facility: [facility] [place] Address: [address] [place] [address] Performed By: #### 5 7021-8 ####[facility] LABCLIA [id number] [place] [address] [place] RBC (Bld) [#/Vol] 4.35 10*6/uL Normal 4.20-6.00 [facility] Comment on above: Order Comment: Speci men Type: BLOOD SPECIMENOrdering Facility: [facility] Address: [facility] [address] [place] [address] Performed By: #### 5 7021-8 ####[facility] LABCLIA [id number] [place] [address] [place] WBC (Bld) [#/Vol] 5.22 10*3/uL Normal 3.70-11.00 [facility] Comment on above: Order Comment: Speci men Type: BLOOD SPECIMENOrdering Facility: [facility] [place] Address: [address] [place] [address] Performed By: #### 5 7021-8 ####[facility] LABCLIA [id number] [place] [address] [place] Cancer Ag15-3 SerPl-aCncon 1 04-22-2023 Cancer Ag 15-3 Qn 17.6 U/mL Normal <26.0 [facility] Comment on above: Order Comment: Speci men Type: BLOOD SPECIMENOrdering Facility: [facility] [place] Address: [facility] [address] [place] [address] Result Comment: The CA 15-3 test methodology used is the Electrochemiluminescence Immunoassay by Roderick Exajoule. Results obtained with different methods or kits cannot be used interchangeably. Performed By: #### 2 4321-2, 6875-9 ####[facility] LABCLIA [id number] [place] [address] [place] [facility] Sirolimus (Bld) [Mass/Vol] 6.4 ng/mL Normal 4.0-12.0 [facility] Comment on above: Order Comment: Speci men Type: BLOOD SPECIMENOrdering Facility: [facility] Address: [facility] [address] [place] [address] Result Comment: The optimal therapeutic range may vary based on the indication for treatment, transplant type, time post transplant, simultaneous use of other immunosuppressive drugs, and clinical or institutional protocols. It is recommended to interpret the results in conjunction with this information and the patient's clinical context. This test was developed and its performance characteristics determined by [facility]'s Shamir JLars [facility] Pathology and Laboratory Medicine [place] ([facility]). It has not been cleared or approved by the FDA. -PLOR is regulated under CLIA as qualified to perform high-complexity testing. This test is used for clinical purposes. It should not be regarded as investigational or for research. Test performed by LC-MS/MS Performed By: #### 2 9247-4 ####[facility] LABCLIA [id number] [address] [address] [place] [facility] Endocrinology Visit Reporton 02-13-2024 Endocrinology Visit Report [facility] 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 Accompanied by: Self Is patient in pain?: No Allergies No Known Allergies Allergy (Verified 02/13/24 13:15) Medications ???Medication ???Instructions ???Recorded ???Confirmed ???Type albuterol sulfate 90 mcg/actuation 1 - 2 puff inhalation Q6H PRN PRN 07/24/19 02/13/24 History aerosol inhaler Wheezing BP cuff #1 ea 11/27/19 02/13/24 Rx pen needle, diabetic 32 gauge x #400 ea 02/12/20 02/13/24 Rx 5/32 (BD Ultra-Fine Cici Pen Needle) tamsulosin 0.4 mg capsule 0.4 mg PO QHS 04/22/20 02/13/24 History propylene glycol 0.6 % eye drops 1 drp ophthalmic (eye) DAILY PRN 07/28/21 02/13/24 History (Systane Balance) lubricant mycophenolate mofetil 250 mg 500 mg PO BID 09/19/21 02/13/24 History capsule sulfamethoxazole 800 1.5 tab PO .QOD 09/19/21 02/13/24 History mg-trimethoprim 160 mg tablet blood-glucose sensor (Dexcom G6 #9 ea 09/22/21 02/13/24 Rx Sensor device) blood-glucose transmitter (Dexcom #1 ea 09/22/21 02/13/24 Rx G6 Transmitter device) sirolimus 0.5 mg tablet 1 mg PO DAILY 01/30/22 02/13/24 History aspirin 325 mg tablet 325 mg PO DAILY 03/17/22 02/13/24 History atorvastatin 40 mg tablet 40 mg PO QHS #90 tabs 06/09/22 02/13/24 Rx blood sugar diagnostic (Blood #100 ea 10/13/22 02/13/24 Rx Glucose Test strips) insulin lispro 100 unit/mL 120 unit (1.2 mL) subcut DAILY 10/19/22 02/13/24 Rx subcutaneous solution (Humalog #100 mL U-100 Insulin) blood-glucose meter #1 ea 10/23/22 02/13/24 Rx timolol 0.5 % eye drops 1 drp ophthalmic (eye) DAILY 05/07/23 02/13/24 History Novolog U-100 Insulin aspart 100 120 unit (1.2 mL) continuous 06/04/23 02/13/24 Rx unit/mL subcutaneous solution subcutaneous infusion .continuous (insulin aspart U-100) #108 mL blood sugar diagnostic (Accu-Chek #100 ea 06/04/23 02/13/24 Rx Guide test strips) blood-glucose meter (Accu-Chek #1 ea 06/04/23 02/13/24 Rx Guide Glucose Meter) lancing device with lancets kit #1 ea 06/04/23 02/13/24 Rx (Accu-Chek Softclix Lancing Device+Lancets kit) carvedilol 12.5 mg tablet 12.5 mg PO BID #180 tabs 07/02/23 02/13/24 Rx clopidogrel 75 mg tablet 75 mg PO DAILY #90 tabs 07/02/23 02/13/24 Rx bupropion HCl 100 mg tablet,12 hr 100 mg PO BID #60 ea 08/15/23 02/13/24 Rx sustained-release (Wellbutrin SR) famotidine 20 mg tablet (Pepcid) 20 mg PO DAILY PRN 12/04/23 02/13/24 History amlodipine 2.5 mg tablet 2.5 mg PO DAILY #30 tabs 12/11/23 02/13/24 Rx PFSH Medical History Diabetes mellitus type 1 TIA (transient ischemic attack) Toxic metabolic encephalopathy COVID-19 virus infection (06/10/21) Encephalopathy acute Hepatitis C test positive CPAP (continuous positive airway pressure) dependence Sleep apnea Wears dentures Wears glasses Insulin dependent diabetes mellitus Walker as ambulation aid Arthritis Prostate disease History of renal disease High cholesterol Former smoker Malfunction of arteriovenous dialysis fistula Abdominal pain Incomplete right bundle branch block Uncontrolled type 1 diabetes mellitus with ESRD (end-stage renal disease) NORBERTO (obstructive sleep apnea) Atherosclerosis of [place] coronary artery of [place] heart without angina pectoris Essential hypertension Diabetic polyneuropathy associated with type 1 diabetes mellitus CKD (chronic kidney disease) stage 4, GFR 15-29 ml/min Diabetes type 1, uncontrolled Stroke Pancreatitis Kidney disease Type 1 diabetes Cataracts, bilateral DM2 (diabetes mellitus, type 2) Tobacco abuse Hyperlipidemia Surgical History Status post glaucoma surgery Kidney transplant recipient Kidney transplant recipient History of kidney transplant (03/27/21) history of peritoneal catheter insertion ( 03/2020) Problem with dialysis access (04/05/20) History of coronary artery stent placement (04/21/11) Arteriovenous fistula for hemodialysis in place, primary History of bilateral cataract extraction H/O cardiac catheterization (more content not included)... Normal [facility] PSA,Total - Annual Screenon 02-04-2024 PSA,TOT SCREEN 1.05 ng/mL Normal 0.00-4.00 [facility] Comment on above: Result Comment: This test was performed using the TPSA assay method for the NeoVista chemistry system. Values obtained with different assay methods cannot be used interchangably. When changing PSA assays in the course of monitoring a patient, additional sequential testing should be carried out to confirm baseline values. Performed By: #### L 501.9910 #### [facility] Laboratory [address] [place], [address] CNTHERAPYon 01-28-2024 CNTHERAPY OT/PT/Speech Visit ( PTWS) -- LIYAАНДРЕЙ ([id number]) 1960 M Date Time Provider Department 01/28/24 4:30 PM REYES PEREA PTWS Date Time Provider Department [place] 01/28/2024 4:30 PM [id number] [place] PT[facility] Mely Thayer Reason for Visit: Physical Therapy [503] PT Discharge [752] Primary Visit Diagnosis: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] Allergies As of Date: 01/28/2024 (No Known Allergies) Date Reviewed: 12/11/2023 Reviewed by: Christine Killian LPN - Fully Assessed Prescriptions as of 04/07/2024 - cyclobenzaprine (FLEXERIL) 10 mg tablet Take 1 tablet by mouth three times a day as needed for muscle spasm or pain. - timolol maleate (TIMOPTIC) 0.5 % ophthalmic solution Use 1 Drop in both eyes two times a day. Use 1 drop in both eyes at 8 am and 6 pm - furosemide (LASIX) 20 mg tablet Take 1 tablet by mouth every afternoon. - carvedilol (COREG) 12.5 mg tablet Take 1 tablet by mouth once daily. - atorvastatin (LIPITOR) 40 mg tablet Take 1 tablet by mouth once daily. - famotidine (PEPCID) 20 mg tablet Take 1 tablet by mouth two times a day. - amLODIPine (NORVASC) 2.5 mg tablet - fluticasone (FLONASE) 50 mcg/actuation nasal spray Use 2 Sprays in each nostril once daily. Rinse mouth after use. - sirolimus (RAPAMUNE) 0.5 mg tablet Take 1 mg by mouth once daily. - propylene glycoL (SYSTANE COMPLETE) 0.6 % drop Use 1 Drop in both eyes four times daily. - docusate sodium (COLACE) 100 mg capsule Take 100 mg by mouth twice daily. - mycophenolate mofetil (CELLCEPT) 250 mg capsule Take by mouth twice daily. 4 caps q 12 hours - sulfamethoxazole-trimethop rim (BACTRIM DS,SEPTRA DS) 800-160 mg per tablet Take by mouth twice daily. - clopidogrel (PLAVIX) 75 mg tablet Take 1 tablet by mouth once daily. - Gum Xgcfdd-Naovkd-PVqn-Alcohol (MASTISOL ADHESIVE) dpet 1 application as directed. - tamsulosin (FLOMAX) 0.4 mg TAKE 1 CAPSULE BY MOUTH EVERYDAY AT BEDTIME - blood sugar diagnostic (ONETOUCH ULTRA TEST) test strip Checking blood sugars 3-4 times daily - Insulin [place], Disposable, (BD ULTRAFINE III MINI PEN) 31 gauge x 3/16 use as directed up to four times daily, E11.9 - Blood-Glucose Sensor (DEXCOM G6 SENSOR) darleen Change Sensor every 14 days Patient reading blood sugar 12 times daily - Blood-Glucose Meter,Continuous (DEXCOM G4 B OPERATOR-SHARE KIT) misc One [place] device, patient checks blood sugars 12 times daily - Blood-Glucose Transmitter (DEXCOM G6 TRANSMITTER) darleen 1 Each as directed. - Blood-Glucose Meter,Continuous (DEXCOM G6 B OPERATOR) misc 1 Each as directed. - insulin detemir U-100 (LEVEMIR FLEXTOUCH U-100 INSULN) 100 unit/mL (3 mL) inpn injection INJECT 36 UNITS SUBCUTANEOUSLY DAILY AT BEDTIME. - Lancets (MICROLET LANCET) lancets Test blood sugar(s) 3-4 times daily. Dx: 250.00 . Insulin: Yes - Blood-Glucose Meter (ONETOUCH ULTRA2) monitoring kit 1 Each as needed. 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 Meds Comments as of 07/25/2012: Insulin pump with Novolog Spray Gun Striper: Therapy (PT/OT/Speech/Resp) ID: [id number] 01/28/2024 5:06 PM Author: REYES PEREA Signed by REYES PEREA PT on 01/28/2024 at 5:06 PM Document text: Program_ID:[id number] Access Code: [email or web address] URL: [email or web address] hospitalKreyonicar [facility]/ Date: 01-28-2024 Prepared By: Reyes Perea Program Notes Exercises - Hooklying Single Knee to Chest Stretch - 2 x daily - 7 x weekly - 3 sets - reps - Supine Double Knee to Chest - 2 x daily - 7 x weekly - 3 sets - reps - Supine Lower Trunk Rotation - 2 x daily - 7 x weekly - 2 sets - 10 reps - Seated Repeated Flexion - 2 x daily - 7 x weekly - 2 sets - 10-15 reps - Supine Transversus Abdominis Bracing - Hands on Stomach - 2 x daily - 7 x weekly - 2-3 sets - 10 reps - Supine Straight Leg Raises - 2 x daily - 7 x weekly - 2 sets - 8-10 reps Normal [facility] THERAPY NTon 01-28-2024 THERAPY NT HNO ID: [id number] Author: REYES PEREA, ALCIDES Service: ? Author Type: Physical Therapist Type: Therapy (PT/OT/Speech/Resp) Filed: 01/28/2024 17:06 Note Text: Program_ID:[id number] Access Code: [email or web address] URL: [email or web address] Interactive/ Date: 01-28-2024 Prepared By: Reyes Perea Program Notes Exercises - Hooklying Single Knee to Chest Stretch - 2 x daily - 7 x weekly - 3 sets - reps - Supine Double Knee to Chest - 2 x daily - 7 x weekly - 3 sets - reps - Supine Lower Trunk Rotation - 2 x daily - 7 x weekly - 2 sets - 10 reps - Seated Repeated Flexion - 2 x daily - 7 x weekly - 2 sets - 10-15 reps - Supine Transversus Abdominis Bracing - Hands on Stomach - 2 x daily - 7 x weekly - 2-3 sets - 10 reps - Supine Straight Leg Raises - 2 x daily - 7 x weekly - 2 sets - 8-10 reps Normal [facility] [id number] 01-16-2024 [id number] HNO ID: [id number] Author: REYES PEREA PT Service: ? Author Type: Physical Therapist Type: [id number] Filed: 01/16/2024 06:42 Note Text: [facility] Rehabilitation and Sports Therapy Physical Therapy Plan of Care Certification Patient Name: Андрей Nickerson : 1960 [facility] #: [id number] Date: 01/15/2024 To: Handy Henderson, DO From Therapist: Reyes Perea PT RE: Patient Certification/ Recertification Your review, approval and electronic signature are required in order to comply with Payor: [employer] / Plan: [facility] O[facility] / Product Type: Open Access / regulations. The identified Physical Therapy PLAN OF CARE for the patient is as follows: M51.360 Degeneration of intervertebral disc of lumbar region with discogenic back pain (primary encounter diagnosis) PLAN OF CARE: Assessment: Андрей Nickerson presents with chief complaint of midline low back pain and stiffness that interferes with standing, walking, bending, rising from a chair, physical activities, lifting . The patient presents with impairments in ADL's, flexibility, gait, independence in exercise, overall function, posture, range of motion, soft tissue healing, strength, symptom management, and tissue tenderness. PROMIS? (Patient-Reported Outcomes Measurement Information System) scores were reviewed and identified as a rehabilitation concern. Prognosis for therapy is Good due to: current objective clinical presentation, acuteness of condition, within-session changes .The patient will benefit from skilled therapy services to meet the goals established for this plan of care as noted below. Classification Pain Mechanism Classification: Nociceptive Low Back Pain Classification: Movement Control Goals for Episode of Care: established 01/15/24 Patient reported outcome of physical function will increase T-score by a minimum 5 points. [place] in home exercise program. Patient will decrease pain rating by 2 points to meet minimal clinical important difference for numeric pain rating scale. Increase ROM of lumbar spine to WFL for all motions. Increase strength of LB stabilizers and postural muscles to WFL for increased rising and walking tolerance. Stand / Walk without pain/symptoms to allow for return to recreational walking. Patient Goals: Alleviate Pain and Improve Function. Planned Interventions, Frequency, and Duration: Current Frequency: 1x/week Duration: 4 weeks Total Number of Visits Planned: 4 Planned Treatment Interventions: Therapeutic exercise (29249), Neuromuscular re-education (27713), Manual therapy (70591), Therapeutic activities (55033), Self-shelter management (66645), Gait Training (28732), Body Mechanics Training, Patient/Family/Caregiver Education PLAN FOR NEXT VISIT: Review, correct and progress HEP to tolerance. Low Back Stability, Begin NS AND Core Strengthening, Hip Mobility as tolerated. Patient demonstrates good understanding of plan of care and treatment. The above goals and plan of care were discussed and agreed upon by patient/family. For further details regarding this patient refer to the Physical Therapy electronically documented visit dated 01/15/2024. Provider Attestation I have reviewed the treatment plan for Андрей Taylor Nickerson, [facility]# [id number] for the period of 01/15/24 -- 02/22/24, established on 01/15/2024. Signature certifies the need for therapy services. Normal [facility] 01-15-2024 [facility] Telephone (FAMPWS) -- JORDAN NICKERSONMADDIE TAYLOR ([id number]) 1960 M Date Time Provider Department 01/15/24 HANDY HENDERSON [facility] During your visit today, we recorded the following information about you: aHndy Henderson DO 01/15/2024 10:40 AM Signed Please inform patient that his lumbar spine xray shows Mild discogenic endplate changes with spurring at L3-4, L4-5 and L5-S1. No disc space narrowing. Mild lower lumbar facet arthrosis without pars defects. Sacroiliac joints are unremarkable. Consider PHYSICAL THERAPY and pain management for spine injections to help pain in the future DO Jocelynn Sims Beth, LPN 01/15/2024 11:26 AM Signed Phoned patient went over results, notes from Dr Henderson with understanding. He starts PT later today. Patient asking for Pain Management consult and will go from there. Pending consult, needs diagnosis. Elisa Andre PA-C 01/15/2024 2:46 PM Signed Ordered MARIANNA Monroy Susan LPN 01/15/2024 3:28 PM Signed Please schedule Pain management Appointment. Handy Henderson DO 01/17/2024 9:33 AM Signed Order placed for PHYSICAL THERAPY DO Abhijeet Sims Michelle 01/17/2024 11:43 AM Signed Patient has been scheduled and seen, cancelled order. Allergies As of Date: 01/15/2024 (No Known Allergies) Date Reviewed: 12/11/2023 Reviewed by: Christine Killian LPN - Fully Assessed Reason for Visit: Results [95] Primary Visit Diagnosis: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] Other Visit Diagnosis:Chronic midline low back pain without sciatica [M54.50, G89.29] Order(s):CONSULT TO PAIN MGT [141094] Order #: [id number]: 1 FUTURE CONSULT TO PHYSICAL THERAPY [9032] Order #: [id number]: 1 FUTURE Prescriptions as of 03/13/2024 - cyclobenzaprine (FLEXERIL) 10 mg tablet Take 1 tablet by mouth three times a day as needed for muscle spasm or pain. - timolol maleate (TIMOPTIC) 0.5 % ophthalmic solution Use 1 Drop in both eyes two times a day. Use 1 drop in both eyes at 8 am and 6 pm - furosemide (LASIX) 20 mg tablet Take 1 tablet by mouth every afternoon. - carvedilol (COREG) 12.5 mg tablet Take 1 tablet by mouth once daily. - atorvastatin (LIPITOR) 40 mg tablet Take 1 tablet by mouth once daily. - famotidine (PEPCID) 20 mg tablet Take 1 tablet by mouth two times a day. - amLODIPine (NORVASC) 2.5 mg tablet - fluticasone (FLONASE) 50 mcg/actuation nasal spray Use 2 Sprays in each nostril once daily. Rinse mouth after use. - sirolimus (RAPAMUNE) 0.5 mg tablet Take 1 mg by mouth once daily. - propylene glycoL (SYSTANE COMPLETE) 0.6 % drop Use 1 Drop in both eyes four times daily. - docusate sodium (COLACE) 100 mg capsule Take 100 mg by mouth twice daily. - mycophenolate mofetil (CELLCEPT) 250 mg capsule Take by mouth twice daily. 4 caps q 12 hours - sulfamethoxazole-trimethop rim (BACTRIM DS,SEPTRA DS) 800-160 mg per tablet Take by mouth twice daily. - clopidogrel (PLAVIX) 75 mg tablet Take 1 tablet by mouth once daily. - Gum Jijbux-Ljtmuz-SUia-Alcohol (MASTISOL ADHESIVE) dpet 1 application as directed. - tamsulosin (FLOMAX) 0.4 mg TAKE 1 CAPSULE BY MOUTH EVERYDAY AT BEDTIME - blood sugar diagnostic (ONETOUCH ULTRA TEST) test strip Checking blood sugars 3-4 times daily - Insulin [place], Disposable, (BD ULTRAFINE III MINI PEN) 31 gauge x 3/16 use as directed up to four times daily, E11.9 - Blood-Glucose Sensor (DEXCOM G6 SENSOR) darleen Change Sensor every 14 days Patient reading blood sugar 12 times daily - Blood-Glucose Meter,Continuous (DEXCOM G4 B OPERATOR-SHARE KIT) misc One [place] device, patient checks blood sugars 12 times daily - Blood-Glucose Transmitter (DEXCOM G6 TRANSMITTER) darleen 1 Each as directed. - Blood-Glucose Meter,Continuous (DEXCOM G6 B OPERATOR) misc 1 Each as directed. - insulin detemir U-100 (LEVEMIR FLEXTOUCH U-100 INSULN) 100 unit/mL (3 mL) inpn injection INJECT 36 UNITS SUBCUTANEOUSLY DAILY AT BEDTIME. - Lancets (MICROLET LANCET) lancets Test blood sugar(s) 3-4 times daily. Dx: 250.00 . Insulin: Yes - Blood-Glucose Meter (ONETOUCH ULTRA2) monitoring kit 1 Each as needed. 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 Meds Comments as of 07/25/2012: Insulin pump with Novolog Problem List As Of Date 01/15/2024 Noted Resolved Obesity (BMI 30.0-34.9) [E66.811] 07/25/2012 Tobacco abuse [Z72.0] 07/25/2012 Hypercholesteremia [E78.00] 07/25/2012 Coronary artery disease [I25.10] 07/25/2012 Hypertension [I10] 07/25/2012 Diabetes mellitus type 2 in obese (HCC) [E11.69*07/25/2012 08/10/2015 Background diabetic retinopathy(362.01) (HC (more content not included)... Normal [facility] CNTHERAPYon 01-15-2024 CNTHERAPY OT/PT/Speech Visit ( PTWS) -- АНДРЕЙ NICKERSON ([id number]) 1960 M Date Time Provider Department 01/15/24 1:30 PM REYES PEREA PTWS Date Time Provider Department Center 01/15/2024 1:30 PM [id number], COLIN PTWS Eyelation Reason for Visit: PT Eval [747] Primary Visit Diagnosis: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] Allergies As of Date: 01/15/2024 (No Known Allergies) Date Reviewed: 12/11/2023 Reviewed by: Christine Killian LPN - Fully Assessed Prescriptions as of 01/16/2024 - cyclobenzaprine (FLEXERIL) 10 mg tablet Take 1 tablet by mouth three times a day as needed for muscle spasm or pain. - timolol maleate (TIMOPTIC) 0.5 % ophthalmic solution Use 1 Drop in both eyes two times a day. Use 1 drop in both eyes at 8 am and 6 pm - furosemide (LASIX) 20 mg tablet Take 1 tablet by mouth every afternoon. - carvedilol (COREG) 12.5 mg tablet Take 1 tablet by mouth once daily. - atorvastatin (LIPITOR) 40 mg tablet Take 1 tablet by mouth once daily. - famotidine (PEPCID) 20 mg tablet Take 1 tablet by mouth two times a day. - amLODIPine (NORVASC) 2.5 mg tablet - fluticasone (FLONASE) 50 mcg/actuation nasal spray Use 2 Sprays in each nostril once daily. Rinse mouth after use. - sirolimus (RAPAMUNE) 0.5 mg tablet Take 1 mg by mouth once daily. - propylene glycoL (SYSTANE COMPLETE) 0.6 % drop Use 1 Drop in both eyes four times daily. - docusate sodium (COLACE) 100 mg capsule Take 100 mg by mouth twice daily. - mycophenolate mofetil (CELLCEPT) 250 mg capsule Take by mouth twice daily. 4 caps q 12 hours - sulfamethoxazole-trimethop rim (BACTRIM DS,SEPTRA DS) 800-160 mg per tablet Take by mouth twice daily. - clopidogrel (PLAVIX) 75 mg tablet Take 1 tablet by mouth once daily. - Gum Pkmpvl-Vjgjkv-AYaa-Alcohol (MASTISOL ADHESIVE) dpet 1 application as directed. - tamsulosin (FLOMAX) 0.4 mg TAKE 1 CAPSULE BY MOUTH EVERYDAY AT BEDTIME - blood sugar diagnostic (ONETOUCH ULTRA TEST) test strip Checking blood sugars 3-4 times daily - Insulin [place], Disposable, (BD ULTRAFINE III MINI PEN) 31 gauge x 3/16 use as directed up to four times daily, E11.9 - Blood-Glucose Sensor (DEXCOM G6 SENSOR) darleen Change Sensor every 14 days Patient reading blood sugar 12 times daily - Blood-Glucose Meter,Continuous (DEXCOM G4 B OPERATOR-SHARE KIT) misc One [place] device, patient checks blood sugars 12 times daily - Blood-Glucose Transmitter (DEXCOM G6 TRANSMITTER) darleen 1 Each as directed. - Blood-Glucose Meter,Continuous (DEXCOM G6 B OPERATOR) misc 1 Each as directed. - insulin detemir U-100 (LEVEMIR FLEXTOUCH U-100 INSULN) 100 unit/mL (3 mL) inpn injection INJECT 36 UNITS SUBCUTANEOUSLY DAILY AT BEDTIME. - Lancets (MICROLET LANCET) lancets Test blood sugar(s) 3-4 times daily. Dx: 250.00 . Insulin: Yes - Blood-Glucose Meter (ONETOUCH ULTRA2) monitoring kit 1 Each as needed. 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 Meds Comments as of 07/25/2012: Insulin pump with Novolog Spray Gun Striper: Therapy (PT/OT/Speech/Resp) ID: [id number] 01/15/2024 2:11 PM Author: REYES PEREA Signed by REYES PEREA PT on 01/15/2024 at 2:11 PM Document text: Program_ID:[id number] Access Code: [email or web address] URL: [email or web address]/ Date: 01-15-2024 Prepared By: Reyes Perea Program Notes Exercises - Hooklying Single Knee to Chest Stretch - 2 x daily - 7 x weekly - 3 sets - reps - Supine Double Knee to Chest - 2 x daily - 7 x weekly - 3 sets - reps - Supine Lower Trunk Rotation - 2 x daily - 7 x weekly - 2 sets - 10 reps - Seated Repeated Flexion - 2 x daily - 7 x weekly - 2 sets - 10-15 reps Normal [facility] THERAPY NTon 01-15-2024 THERAPY NT HNO ID: [id number] Author: REYES PEREA, PT Service: ? Author Type: Physical Therapist Type: Therapy (PT/OT/Speech/Resp) Filed: 01/15/2024 14:11 Note Text: Program_ID:[id number] Access Code: [email or web address] URL: [email or web address]/ Date: 01-15-2024 Prepared By: Reyes Perea Program Notes Exercises - Hooklying Single Knee to Chest Stretch - 2 x daily - 7 x weekly - 3 sets - reps - Supine Double Knee to Chest - 2 x daily - 7 x weekly - 3 sets - reps - Supine Lower Trunk Rotation - 2 x daily - 7 x weekly - 2 sets - 10 reps - Seated Repeated Flexion - 2 x daily - 7 x weekly - 2 sets - 10-15 reps Normal [facility] АНДРЕЙ NICKERSON ([id number]) 1960 M Date Time Provider Department 12/13/23 HANDY HENDERSON [facility] During your visit today, we recorded the following information about you: Sakina Webb RN 12/13/2023 11:58 AM Signed Patient calling and states that he received result notes that he has some moderate generalized degenerative changes in his thoracic mid spine. Patient asking if there is anything he can do to help with the chronic back pain? Please review and advise, NATI Lacy Jordan L, DO 12/17/2023 12:05 PM Signed He needs to work on CORE strengthening exercises and weight loss. Can consider PHYSICAL THERAPY to help with the pain as well DO Wilton Sims Kathryn, MA 12/17/2023 12:38 PM Signed Pt notified. Will call back to schedule PT. Juanita Núñez MA Allergies As of Date: 12/13/2023 (No Known Allergies) Date Reviewed: 12/11/2023 Reviewed by: Christine Killian LPN - Fully Assessed Reason for Visit: Results [95] Prescriptions as of 12/17/2023 - cyclobenzaprine (FLEXERIL) 10 mg tablet Take 1 tablet by mouth three times a day as needed for muscle spasm or pain. - traMADol (ULTRAM) 50 mg tablet Take 1 tablet by mouth every 8 hours as needed for pain for up to 7 days. - timolol maleate (TIMOPTIC) 0.5 % ophthalmic solution Use 1 Drop in both eyes two times a day. Use 1 drop in both eyes at 8 am and 6 pm - furosemide (LASIX) 20 mg tablet Take 1 tablet by mouth every afternoon. - carvedilol (COREG) 12.5 mg tablet Take 1 tablet by mouth once daily. - atorvastatin (LIPITOR) 40 mg tablet Take 1 tablet by mouth once daily. - famotidine (PEPCID) 20 mg tablet Take 1 tablet by mouth two times a day. - amLODIPine (NORVASC) 2.5 mg tablet - fluticasone (FLONASE) 50 mcg/actuation nasal spray Use 2 Sprays in each nostril once daily. Rinse mouth after use. - sirolimus (RAPAMUNE) 0.5 mg tablet Take 1 mg by mouth once daily. - propylene glycoL (SYSTANE COMPLETE) 0.6 % drop Use 1 Drop in both eyes four times daily. - docusate sodium (COLACE) 100 mg capsule Take 100 mg by mouth twice daily. - mycophenolate mofetil (CELLCEPT) 250 mg capsule Take by mouth twice daily. 4 caps q 12 hours - sulfamethoxazole-trimethop rim (BACTRIM DS,SEPTRA DS) 800-160 mg per tablet Take by mouth twice daily. - clopidogrel (PLAVIX) 75 mg tablet Take 1 tablet by mouth once daily. - Gum Mwpima-Ywppbm-HSjj-Alcohol (MASTISOL ADHESIVE) dpet 1 application as directed. - tamsulosin (FLOMAX) 0.4 mg TAKE 1 CAPSULE BY MOUTH EVERYDAY AT BEDTIME - blood sugar diagnostic (ONETOUCH ULTRA TEST) test strip Checking blood sugars 3-4 times daily - Insulin [place], Disposable, (BD ULTRAFINE III MINI PEN) 31 gauge x 3/16 use as directed up to four times daily, E11.9 - Blood-Glucose Sensor (DEXCOM G6 SENSOR) darleen Change Sensor every 14 days Patient reading blood sugar 12 times daily - Blood-Glucose Meter,Continuous (DEXCOM G4 B OPERATOR-SHARE KIT) [facility] [place] One [place] device, patient checks blood sugars 12 times daily - Blood-Glucose Transmitter (DEXCOM G6 TRANSMITTER) darleen 1 Each as directed. - Blood-Glucose Meter,Continuous (DEXCOM G6 B OPERATOR) misc 1 Each as directed. - insulin detemir U-100 (LEVEMIR FLEXTOUCH U-100 INSULN) 100 unit/mL (3 mL) inpn injection INJECT 36 UNITS SUBCUTANEOUSLY DAILY AT BEDTIME. - Lancets (MICROLET LANCET) lancets Test blood sugar(s) 3-4 times daily. Dx: 250.00 . Insulin: Yes - Blood-Glucose Meter (ONETOUCH ULTRA2) monitoring kit 1 Each as needed. 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 Meds Comments as of 07/25/2012: Insulin pump with Novolog Problem List As Of Date 12/13/2023 Noted Resolved Obesity (BMI 30.0-34.9) [E66.9] 07/25/2012 Tobacco abuse [Z72.0] 07/25/2012 Hypercholesteremia [E78.00] 07/25/2012 Coronary artery disease [I25.10] 07/25/2012 Hypertension [I10] 07/25/2012 Diabetes mellitus type 2 in obese (HCC) [E11.69*07/25/2012 08/10/2015 Background diabetic retinopathy(362.01) ([facility]) *12/23/2013 Retinal edema [H35.81] 12/23/2013 Other and combined forms of senile cataract [H2*12/23/2013 02/23/2015 Proliferative diabetic retinopathy(362.02) (HC*12/23/2013 02/07/2017 Type 1 diabetes mellitus with mild nonprolifera*12/23/2013 Borderline glaucoma with ocular hypertension - *07/03/2014 Type 1 diabetes mellitus with stable proliferat*07/03/2014 Status post kidney transplant [Z94.0] 07/03/2014 Type II or unspecified type diabetes mellitus w*07/28/2014 03/31/2015 Growth of eyelid [D49.2] 02/23/2015 Primary open angle glaucoma (POAG) of both eyes*02/23/2015 Optic cupping of both eyes [H47.233] 02/23/2015 Astigmatism of both eyes [H52.203 (more content not included)... Normal [facility] CNOVon 12-11-2023 CNOV Office Visit (FAMPWS ) -- АНДРЕЙ NICKERSON ([id number]) 1960 M Date Time Provider Department 12/11/23 3:20 PM HANDY HENDERSONPPONCHO During your visit today, we recorded the following information about you: Temperature Pulse Respiration Blood pressure 97 degrees 80/minute 16/minute 124/60 Weight 123.4 kg Handy Henderson, DO 12/11/2023 4:47 PM Signed CC: Андрей Nickerson is a 63 year old male who presents to the office for back pain. HPI: Back pain, symptoms started when she lost balance when he was going up his step from garage into the house. Was able to catch himself and after this then his back was flared up. Coming and going. Worse with walking and worse when laying on left side. Middle of the lower back. Coming and going for months since this trip/falls. Hasn't had any obvious new muscle weakness or numbness/tingling in legs or bowel or bladder changes. PAST MEDICAL HISTORY No date: Arrhythmia No date: CKD (chronic kidney disease) stage 3, GFR 30-59 ml/min ([facility]) Comment: [facility] 2006: Coronary artery disease Comment: s/p PCI. 3 stents total 1971: Diabetes type 1, uncontrolled Comment: nephropathy, retinopathy, dx age 10, Dr. Leon [facility] No date: Heart attack (HCC) No date: Hyperlipidemia No date: Hypertension No date: Lacunar stroke ([facility]) No date: Macular edema Comment: [facility] No date: MVP (mitral valve prolapse) No date: Pancreatitis No date: Proliferative diabetic retinopathy(362.02) Comment: [facility] No date: Snoring 2017: Stroke ([facility]) No date: Tobacco abuse PAST SURGICAL HISTORY No date: AVASTIN (BEVACIZUMAB) 1.25MG INTRAVITREAL INJECTION OS (LEFT EYE) Comment: x5 (04/16/2015) Dr. 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 traMADol (ULTRAM) 50 mg tablet Take 1 tablet by mouth every 8 hours as needed for pain for up to 7 days. timolol maleate (TIMOPTIC) 0.5 % ophthalmic solution Use 1 Drop in both eyes two times a day. Use 1 drop in both eyes at 8 am and 6 pm furosemide (LASIX) 20 mg tablet Take 1 tablet by mouth every afternoon. carvedilol (COREG) 12.5 mg tablet Take 1 tablet by mouth once daily. atorvastatin (LIPITOR) 40 mg tablet Take 1 tablet by mouth once daily. famotidine (PEPCID) 20 mg tablet Take 1 tablet by mouth two times a day. amLODIPine (NORVASC) 2.5 mg tablet fluticasone (FLONASE) 50 mcg/actuation nasal spray Use 2 Sprays in each nostril once daily. Rinse mouth after use. sirolimus (RAPAMUNE) 0.5 mg tablet Take 1 mg by mouth once daily. propylene glycoL (SYSTANE COMPLETE) 0.6 % drop Use 1 Drop in both eyes four times daily. docusate sodium (COLACE) 100 mg capsule Take 100 mg by mouth twice daily. mycophenolate mofetil (CELLCEPT) 250 mg capsule Take by mouth twice daily. 4 caps q 12 hours sulfamethoxazole-trimethop rim (BACTRIM DS,SEPTRA DS) 800-160 mg per tablet Take by mouth twice daily. clopidogrel (PLAVIX) 75 mg tablet Take 1 tablet by mouth once daily. Gum Zebzwh-Exbcmp-NHma-Alcohol (MASTISOL ADHESIVE) dpet 1 application as directed. tamsulosin (FLOMAX) 0.4 mg TAKE 1 CAPSULE BY MOUTH EVERYDAY AT BEDTIME blood sugar diagnostic (ONETOUCH ULTRA TEST) test strip Checking blood sugars 3-4 times daily Insulin [place], Disposable, (BD ULTRAFINE III MINI PEN) 31 gauge x 3/16 use as directed up to four times daily, E11.9 Blood-Glucose Sensor (DEXCOM G6 SENSOR) darleen Change Sensor every 14 days Patient reading blood sugar 12 times daily Blood-Glucose Meter,Continuous (DEXCOM G4 B OPERATOR-SHARE KIT) misc One [place] device, patient checks blood sugars 12 times daily Blood-Glucose Transmitter (DEXCOM G6 TRANSMITTER) darleen 1 Each as directed. Blood-Glucose Meter,Continuous (DEXCOM G6 B OPERATOR) misc 1 Each as directed. insulin detemir U-100 (LEVEMIR FLEXTOUCH U-100 INSULN) 100 unit/mL (3 mL) inpn (more content not included)... Normal [facility] XR LUMBAR 3V AP/LAT/L5-S1on 12-11-2023 XR LUMBAR 3V AP/LAT/L5-S1 * * *Final Report* * * DATE OF EXAM: Dec 11 2023 4:44PM WOX [id number] - XR LUMBAR 3V AP/LAT/L5-S1 / PROCEDURE REASON: multiple diagnoses * * * * Physician Interpretation * * * * PROCEDURE: Lumbar spine INDICATION: Chronic midline low back pain without sciatica Lumbar paraspinal muscle spasm .Chronic back pain that has increased over time from an almost fall. TECHNIQUE: XR LUMBAR 3V AP/LAT/L5-S1 COMPARISON: None FINDINGS: Normal alignment without acute fracture or subluxation. Mild discogenic endplate changes with spurring at L3-4, L4-5 and L5-S1. No disc space narrowing. Mild lower lumbar facet arthrosis without pars defects. Sacroiliac joints are unremarkable. IMPRESSION: Mild spondylosis Clinical Training Specialist: KYLER Transcribe Date/Time: Dec 15 2023 4:32P Dictated by : TIAN HOOD MD This examination was interpreted and the report reviewed and electronically signed by: TIAN HOOD MD on Dec 15 2023 4:33PM EST [id number] Normal [facility] XR THORACIC 3V AP/LAT/SWIMME RSon 12-11-2023 XR THORACIC 3V AP/LAT/SWIMMERS * * *Final Report* * * DATE OF EXAM: Dec 11 2023 4:44PM WOX [id number] - XR THORACIC 3V AP/LAT/SWIMMERS / PROCEDURE REASON: multiple diagnoses * * * * Physician Interpretation * * * * EXAM TITLE: XR THORACIC 3V AP/LAT/SWIMMERS EXAM DATE/TIME: 12/11/2023 4:44 PM COMPARISON: None. CLINICAL INDICATION/HISTORY: Back pain. TECHNIQUE: AP, swimmer's and lateral views of the thoracic spine are presented FINDINGS: No fractures or subluxations are noted. There is generalized disc space narrowing. At least moderate osteophyte formation is present. There is no paraspinal mass or bony destructive process. IMPRESSION: Thoracic spine degenerative changes as described above. Clinical Training Specialist: KYLER Transcribe Date/Time: Dec 11 2023 5:01P Dictated by : FRANCOIS TATUM MD This examination was interpreted and the report reviewed and electronically signed by: FRANCOIS TATUM MD on Dec 11 2023 5:02PM EST [id number] Normal [facility] XR Thoracic spine AP and Lat eral and Swimmerson 12-11-2023 IMPRESSION: Thoracic spine degenerative changes as described above. Clinical Training Specialist: [facility] Transcribe Date/Time: Dec 11 2023 5:01P Dictated by : FRANCOIS TATUM MD This examination was interpreted and the report reviewed and electronically signed by: FRANCOIS TATUM MD on Dec 11 2023 5:02PM EST DIVISION OF RADIOLOGY * * *Final Report* * * DATE OF EXAM: Dec 11 2023 4:44PM WOX 5261 - XR THORACIC 3V AP/LAT/SWIMMERS / PROCEDURE REASON: multiple diagnoses * * * * Physician Interpretation * * * * EXAM TITLE: XR THORACIC 3V AP/LAT/SWIMMERS EXAM DATE/TIME: 12/11/2023 4:44 PM COMPARISON: None. CLINICAL INDICATION/HISTORY: Back pain. TECHNIQUE: AP, swimmer's and lateral views of the thoracic spine are presented FINDINGS: No fractures or subluxations are noted. There is generalized disc space narrowing. At least moderate osteophyte formation is present. There is no paraspinal mass or bony destructive process. DIVISION OF RADIOLOGY Provider, Kartik huerta [place] - 12/11/2023 * * *Final Report* * * DATE OF EXAM: Dec 11 2023 4:44PM WOX 5261 - XR THORACIC 3V AP/LAT/SWIMMERS / PROCEDURE REASON: multiple diagnoses * * * * Physician Interpretation * * * * EXAM TITLE: XR THORACIC 3V AP/LAT/SWIMMERS EXAM DATE/TIME: 12/11/2023 4:44 PM COMPARISON: None. CLINICAL INDICATION/HISTORY: Back pain. TECHNIQUE: AP, swimmer's and lateral views of the thoracic spine are presented FINDINGS: No fractures or subluxations are noted. There is generalized disc space narrowing. At least moderate osteophyte formation is present. There is no paraspinal mass or bony destructive process. IMPRESSION IMPRESSION: Thoracic spine degenerative changes as described above. Clinical Training Specialist: KYLER Transcribe Date/Time: Dec 11 2023 5:01P Dictated by : FRANCOIS TATUM MD This examination was interpreted and the report reviewed and electronically signed by: FRANCOIS TATUM MD on Dec 11 2023 5:02PM EST [facility] Radiology Study observation (narrative) [facility] XR Thoracic spine AP and Lat eral and SwimmersOrdered By: [facility] Provider on 12-11-2023 [facility] A1AT SerPl-mCncon 12-10-2023 Alpha 1 antitrypsin [Mass/Vol] 153 mg/dL Normal 90-200 [facility] Comment on above: Order Comment: Praveen reyes Type: BLOOD SPECIMENOrdering Facility: [facility] Address: [address] [place] [address] Performed By: #### 2 4321-2, 2731-8, 1825-9, 6875-9 ####[facility] LABCLIA [id number] [place] [address] [place] ALT SerPl-cCncon 12-10-2023 ALT [Catalytic activity/Vol] 28 U/L Normal 10-54 [facility] Comment on above: Order Comment: Praveen reyes Type: BLOOD SPECIMENOrdering Facility: [facility] Address: [address] [place] [address] Performed By: #### 2 571-8, 175-7, 174-6 ####[facility] LABCLIA [id number] [address] [address] [place] AST SerPl-cCncon 12-10-2023 AST [Catalytic activity/Vol] 21 U/L Normal 14-40 [facility] Comment on above: Order Comment: Speci men Type: BLOOD SPECIMENOrdering Facility: [facility] [place] Address: [address] [place] [address] Performed By: #### 1 920-8, 02637-0, 1974-2, 3-3, HDL1 ####[facility]CL[facility] [id number] [address] [address] [place] Albumin SerPl-mCncon 024 Albumin [Mass/Vol] 3.7 g/dL Low 3.9-4.9 [facility] Comment on above: Order Comment: Speci men Type: BLOOD SPECIMENOrdering Facility: [facility] [place] Address: [address] [place] [address] Performed By: #### 2 571-8, 175-7, 174-6 ####[facility] LABIA [id number] [address] [address] [place] Basic metabolic 2000 panelon 12-10-2023 Anion gap [Moles/Vol] 9 mmol/L Normal 8-15 [facility] Comment on above: Order Comment: Speci men Type: BLOOD SPECIMENOrdering Facility: [facility] Address: [address] [place] [address] Performed By: #### 2 4321-2, 2731-8, 1825-9, 6875-9 ####[facility]CLIA [id number] [address] [address] [place] Calcium [Mass/Vol] 9.2 mg/dL Normal 8.5-10.2 [facility] Comment on above: Order Comment: Speci men Type: BLOOD SPECIMENOrdering Facility: [facility] Address: [address] [place] [address] Performed By: #### 2 4321-2, 2730-8, 1824-12, 6874-12 ####[facility] LABCLIA [id number] [address] [address] [place] Chloride [Moles/Vol] 110 mmol/L High 98-107 [facility] Comment on above: Order Comment: Speci men Type: BLOOD SPECIMENOrdering Facility: [facility] Address: [address] [place] [address] Performed By: #### 2 4321-2, 2730-8, 1824-12, 6874-12 ####[facility] LABCLIA [id number] [place] [address] [place] CO2 [Moles/Vol] 20 mmol/L Low 22-30 [facility] Comment on above: Order Comment: Speci men Type: BLOOD SPECIMENOrdering Facility: [facility] Address: [address] [place] [address] Performed By: #### 2 4321-2, 2730-8, 1824-12, 6874-12 ####[facility] LABCLIA [id number] [address] [address] [place] Creatinine [Mass/Vol] 2.40 mg/dL High 0.73-1.22 [facility] Comment on above: Order Comment: Speci men Type: BLOOD SPECIMENOrdering Facility: [facility] Address: [address] [address] Performed By: #### 2 4321-2, 2730-8, 1824-12, 6874-12 ####[facility]CLIA [id number] [address] [address] [place] Creatinine and Glomerular filtration rate.predicted panel (S/P/Bld) 30 mL/min/1.73m??? Low >=60 [facility] Comment on above: Order Comment: Praveen reyes Type: BLOOD SPECIMENOrdering Facility: [facility] [place] Address: [address] [place] [address] Result Comment: Leah mated Glomerular Filtration Rate (eGFR) is calculated using the 2020 CKD-EPI creatinine equation. This equation utilizes serum creatinine, sex, and age as parameters. The creatinine assay has traceable calibration to isotope dilution-mass spectrometry. Refer to KDIGO guidelines for clinical interpretation. In patients with unstable renal function, e.g. those with acute kidney injury, the eGFR may not accurately reflect actual GFR. Performed By: #### 2 4321-2, 2730-8, 1824-12, 6874-12 ####[facility]CLIA [id number] [address] [address] [place] Glucose [Mass/Vol] 148 mg/dL High 74-99 [facility] Comment on above: Order Comment: Praveen reyes Type: BLOOD SPECIMENOrdering Facility: [facility] [place] Address: [address] [place] [address] Result Comment: The [place] Diabetes Association (ADA) provides guidance for cutoff values for fasting glucose and random glucose. The ADA defines fasting as no caloric intake for at least 8 hours. Fasting plasma glucose results between 100 to 125 mg/dL indicate increased risk for diabetes (prediabetes). Fasting plasma glucose results greater than or equal to 126 mg/dL meet the criteria for diagnosis of diabetes. In the absence of unequivocal hyperglycemia, results should be confirmed by repeat testing. In a patient with classic symptoms of hyperglycemia or hyperglycemic crisis, random plasma glucose results greater than or equal to 200 mg/dL meet the criteria for diagnosis of diabetes. Reference: Standards of Medical Care in Diabetes 2016, [place] Diabetes Association. Diabetes Care. 2016.39(Suppl 1). Performed By: #### 2 4321-2, 2730-8, 1824-12, 75-9 ####[facility]CLIA [id number] [address] [address] [place] Potassium [Moles/Vol] 5.0 mmol/L Normal 3.7-5.1 [facility] Comment on above: Order Comment: Speci men Type: BLOOD SPECIMENOrdering Facility: [facility] Address: [address] [address] Performed By: #### 2 4321-2, 2730-8, 1824-9, 75-9 ####[facility]CLIA [id number] [address] [address] [place] Sodium [Moles/Vol] 139 mmol/L Normal 136-144 [facility] Comment on above: Order Comment: Speci men Type: BLOOD SPECIMENOrdering Facility: [facility] [place] Address: [address] [address] Performed By: #### 2 4321-2, 2730-8, 9, 75-9 ####[facility] LABCLIA [id number] [place] [id number] [place] Urea nitrogen [Mass/Vol] 24 mg/dL Normal 9-24 [facility] Comment on above: Order Comment: Speci men Type: BLOOD SPECIMENOrdering Facility: [facility] Address: [facility] [address] [address] Performed By: #### 2 4321-2, 273-8, 1824-9, 75-9 ####[facility]CLIA [id number] [address] [address] [place] Bilirub SerPl-mCncon 024 Bilirubin [Mass/Vol] 0.4 mg/dL Normal 0.2-1.3 [facility] Comment on above: Order Comment: Speci men Type: BLOOD SPECIMENOrdering Facility: [facility] [place] Address: [address] [address] Performed By: #### 1 920-8, 75335-6, 1974-2, 2092-3, HDL1 ####[facility]CLIA [id number] [address] [address] [place] CBC W Auto Differential pane l (Bld)on 12-10-2023 Basophils (Bld) [#/Vol] 0.03 10*3/uL Normal <0.11 [facility] Comment on above: Order Comment: Speci men Type: BLOOD SPECIMENOrdering Facility: [facility] [place] Address: [address] [place] [address] Performed By: #### 5 7021-8 ####[facility]CLIA [id number] [place] [address] [place] Basophils/100 WBC (Bld) 0.6 % Normal [facility] Comment on above: Order Comment: Speci men Type: BLOOD SPECIMENOrdering Facility: [facility] [place] Address: [address] [place] [address] Performed By: #### 5 7021-8 ####[facility] LABCLIA [id number] [place] [address] [place] Differential cell count method Nom (Bld) Auto Normal [facility] Comment on above: Order Comment: Speci men Type: BLOOD SPECIMENOrdering Facility: [facility] [place] Address: [address] [place] [address] Performed By: #### 5 7021-8 ####[facility] LABCLIA [id number] [place] [address] [place] Eosinophils (Bld) [#/Vol] 0.06 10*3/uL Normal <0.46 [facility] Comment on above: Order Comment: Speci men Type: BLOOD SPECIMENOrdering Facility: [facility] [place] Address: [address] [place] [address] Performed By: #### 5 7021-8 ####[facility] LABCLIA [id number] [place] [address] [place] Eosinophils/100 WBC (Bld) 1.3 % Normal [facility] Comment on above: Order Comment: Speci men Type: BLOOD SPECIMENOrdering Facility: [facility] Address: [address] [place] [address] Performed By: #### 5 7021-8 ####[facility]CLIA [id number] [place] [address] [place] Erythrocyte distribution width (RBC) [Ratio] 15.0 % Normal 11.5-15.0 [facility] Comment on above: Order Comment: Speci men Type: BLOOD SPECIMENOrdering Facility: [facility] Address: [address] [place] [address] Performed By: #### 5 7021-8 ####[facility] LABCLIA [id number] [place] [address] [place] Hematocrit (Bld) [Volume fraction] 38.2 % Low 39.0-51.0 [facility] Comment on above: Order Comment: Speci men Type: BLOOD SPECIMENOrdering Facility: [facility] [place] Address: [address] [place] [address] Performed By: #### 5 7021-8 ####[facility] LABCLIA [id number] [place] [address] [place] Hemoglobin (Bld) [Mass/Vol] 11.4 g/dL Low 13.0-17.0 [facility] Comment on above: Order Comment: Speci men Type: BLOOD SPECIMENOrdering Facility: [facility] Address: [address] [place] [address] Performed By: #### 5 7021-8 ####[facility] LABCLIA [id number] [place] [id number] [place] Immature granulocytes (Bld) [#/Vol] 10*3/uL Normal <0.10 [facility] Comment on above: Order Comment: Speci men Type: BLOOD SPECIMENOrdering Facility: [facility] Address: [address] [place] [address] Performed By: #### 5 7021-8 ####[facility] LABCLIA [id number] [place] [address] [place] Immature granulocytes/100 WBC (Bld) 0.4 % Normal [facility] Comment on above: Order Comment: Speci men Type: BLOOD SPECIMENOrdering Facility: [facility] Address: [address] [place] [address] Performed By: #### 5 7021-8 ####[facility] LABIA [id number] [place] [address] [place] Lymphocytes (Bld) [#/Vol] 1.10 10*3/uL Normal 1.00-4.00 [facility] Comment on above: Order Comment: Speci men Type: BLOOD SPECIMENOrdering Facility: [facility] [place] Address: [address] [place] [address] Performed By: #### 5 7021-8 ####[facility] [id number] [place] [address] [place] Lymphocytes/100 WBC (Bld) 23.6 % Normal [facility] Comment on above: Order Comment: Speci men Type: BLOOD SPECIMENOrdering Facility: [facility] [place] Address: [address] [place], [place] [address] Performed By: #### 5 7021-8 ####[facility] [id number] [place] [address] [place] MCH (RBC) [Entitic mass] 27.0 pg Normal 26.0-34.0 [facility] Comment on above: Order Comment: Speci men Type: BLOOD SPECIMENOrdering Facility: [facility] Address: [address] [place] [address] Performed By: #### 5 7021-8 ####[facility] LABIA [id number] [place] [address] [place] MCHC (RBC) [Mass/Vol] 29.8 g/dL Low 30.5-36.0 [facility] Comment on above: Order Comment: Speci men Type: BLOOD SPECIMENOrdering Facility: [facility] [place] Address: [address] [place] [address] Performed By: #### 5 7021-8 ####[facility] LABIA [id number] [place] [address] [place] MCV (RBC) [Entitic vol] 90.5 fL Normal 80.0-100.0 [facility] Comment on above: Order Comment: Speci men Type: BLOOD SPECIMENOrdering Facility: [facility] [place] Address: [address] [place] [address] Performed By: #### 5 7021-8 ####[facility] LABIA [id number] [place] [address] [place] Monocytes (Bld) [#/Vol] 0.80 10*3/uL Normal <0.87 [facility] Comment on above: Order Comment: Speci men Type: BLOOD SPECIMENOrdering Facility: [facility] [place] Address: [address] [place] [address] Performed By: #### 5 7021-8 ####[facility] LABIA [id number] [place] [address] [place] Monocytes/100 WBC (Bld) 17.2 % Normal [facility] Comment on above: Order Comment: Speci men Type: BLOOD SPECIMENOrdering Facility: [facility] [place] Address: [address] [place] [address] Performed By: #### 5 7021-8 ####[facility] LABIA [id number] [place] [id number] [place] Neutrophils (Bld) [#/Vol] 2.65 10*3/uL Normal 1.45-7.50 [facility] Comment on above: Order Comment: Speci men Type: BLOOD SPECIMENOrdering Facility: [facility] Address: [address] [place] [address] Performed By: #### 5 7021-8 ####[facility] LABCLIA [id number] [address] [address] [place] Neutrophils/100 WBC (Bld) 56.9 % Normal [facility] Comment on above: Order Comment: Speci men Type: BLOOD SPECIMENOrdering Facility: [facility] [place] Address: [address] [place] [address] Performed By: #### 5 7021-8 ####[facility] LABCLIA [id number] [place] [address] [place] Nucleated RBC (Bld) [#/Vol] 10*3/uL Normal <0.01 [facility] Comment on above: Order Comment: Speci men Type: BLOOD SPECIMENOrdering Facility: [facility] [place] Address: [address] [place] [address] Performed By: #### 5 7021-8 ####[facility] LABCLIA [id number] [place] [address] [place] Nucleated RBC/100 WBC (Bld) [Ratio] 0.0 /100 WBC Normal [facility] Comment on above: Order Comment: Speci men Type: BLOOD SPECIMENOrdering Facility: [facility] [place] Address: [address] [place] [address] Performed By: #### 5 7021-8 ####[facility] LABCLIA [id number] [place] [address] [place] Platelet mean volume (Bld) [Entitic vol] 9.3 fL Normal 9.0-12.7 [facility] Comment on above: Order Comment: Speci men Type: BLOOD SPECIMENOrdering Facility: [facility] Address: [address] [place] [address] Performed By: #### 5 7021-8 ####[facility] LABCLIA [id number] [place] [id number] [place] Platelets (Bld) [#/Vol] 211 10*3/uL Normal 150-400 [facility] Comment on above: Order Comment: Speci men Type: BLOOD SPECIMENOrdering Facility: [facility] [place] Address: [address] [place] [address] Performed By: #### 5 7021-8 ####[facility] LABCLIA [id number] [place] [address] [place] RBC (Bld) [#/Vol] 4.22 10*6/uL Normal 4.20-6.00 [facility] Comment on above: Order Comment: Speci men Type: BLOOD SPECIMENOrdering Facility: [facility] [place] Address: [address] [place] [address] Performed By: #### 5 7021-8 ####[facility] LABIA [id number] [place] [address] [place] WBC (Bld) [#/Vol] 4.66 10*3/uL Normal 3.70-11.00 [facility] Comment on above: Order Comment: Speci men Type: BLOOD SPECIMENOrdering Facility: [facility] [place] Address: [address] [place] [address] Performed By: #### 5 7021-8 ####[facility] LABIA [id number] [address] [place] Cancer Ag15-3 SerPl-aCncon 0 12-10-2023 Cancer Ag 15-3 Qn 14.8 U/mL Normal <26.0 [facility] Comment on above: Order Comment: Speci men Type: BLOOD SPECIMENOrdering Facility: [facility] [place] Address: [address] [place] [address] Result Comment: The CA 15-3 test methodology used is the Electrochemiluminescence Immunoassay by [employer]. Results obtained with different methods or kits cannot be used interchangeably. Performed By: #### 2 4321-2, 2731-8, 1825-9, 6875-9 ####[facility] LABCLIA [id number] [address] [place] Cholest SerPl-mCncon 024 Cholesterol [Mass/Vol] 79 mg/dL Normal <200 [facility] Comment on above: Order Comment: Praveen reyes Type: BLOOD SPECIMENOrdering Facility: [facility] [place] Address: [address] [place] [address] Result Comment: <200 mg/dL, Desirable 200-239 mg/dL, Borderline high >239 mg/dL, High Reference: 1. National Cholesterol Education Program ATP III Guideline At-A-Glance Quick Desk Reference: National Heart, Lung, and Blood [place]. National Institutes of Health. 2001: [facility] Publication No. . Performed By: #### 1 0-8, , 1974-05, 2092-05, HDL1 ####[facility] LABCLIA [id number] [place] [address] [place] HDL CHOLESTEROL BLDon 2023 Cholesterol in HDL [Mass/Vol] 41 mg/dL Normal >39 [facility] Comment on above: Order Comment: Praveen reyes Type: BLOOD SPECIMENOrdering Facility: [facility] [place] Address: [address] [place] [address] Result Comment: 40-5 9 mg/dL, Acceptable >59 mg/dL, High: Negative risk factor for coronary heart disease <40 mg/dL, Low: Positive risk factor for coronary heart disease Reference: 1. National Cholesterol Education Program ATP III Guideline At-A-Glance Quick Desk Reference: National Heart, Lung, and Blood [place]. National Institutes of Health. 2001: [facility] Publication No. . Performed By: #### 1 920-8, , 1974-05, 2092-05, HDL1 ####[facility] LABCLIA [id number] [place] [id number] [place] HbA1c (Bld)on 12-10-2023 Average glucose Estimated from glycated hemoglobin (Bld) [Mass/Vol] 123 mg/dL Normal [facility] Comment on above: Order Comment: Bari men Type: BLOOD SPECIMENOrdering Facility: [facility] [place] Address: [address] [place] [address] Result Comment: eAG: (Estimated average glucose) is a calculated value from HgbA1c and is customer retention representative of the average blood glucose level in the last 2-3 month period. Performed By: #### 5 5454-3 ####[facility] LABIA [id number] [place] [id number] [place] HbA1c (Bld) [Mass fraction] 5.9 % High 4.3-5.6 [facility] Comment on above: Order Comment: Speci men Type: BLOOD SPECIMENOrdering Facility: [facility] [place] Address: [address] [place] [address] Result Comment: Amer [place] Diabetes Association guidelines indicate that patients with HgbA1c in the range 5.7-6.4% are at increased risk for development of diabetes, and intervention by lifestyle modification may be beneficial. HgbA1c greater or equal to 6.5% is considered diagnostic of diabetes. Performed By: #### 5 5454-3 ####[facility] [id number] [address] [address] [place] Magnesium SerPl-mCncon 12-09 Magnesium [Mass/Vol] 2.2 mg/dL Normal 1.7-2.3 [facility] Comment on above: Order Comment: Praveen reyes Type: BLOOD SPECIMENOrdering Facility: [facility] [place] Address: [address] [place] [address] Performed By: #### 1 920-8, 74471-7, 1974-2, 2092-3, HDL1 ####[facility] [id number] [place] [id number] [place] PTH-Intact SerPl-mCncon 09-0 Parathyrin.intact [Mass/Vol] 244 pg/mL High 15-65 [facility] Comment on above: Order Comment: Bari men Type: BLOOD SPECIMENOrdering Facility: [facility] [place] Address: [address] [place] [address] Performed By: #### 2 4321-2, 2731-8, 1825-9, 6875-9 ####[facility] LABIA [id number] [place] [id number] [place] Sirolimus Bld-[facility] 024 Sirolimus (Bld) [Mass/Vol] 6.6 ng/mL Normal 4.0-12.0 [facility] Comment on above: Order Comment: Speci men Type: BLOOD SPECIMENOrdering Facility: [facility] [place] Address: [address] [place] [address] Result Comment: The optimal therapeutic range may vary based on the indication for treatment, transplant type, time post transplant, simultaneous use of other immunosuppressive drugs, and clinical or institutional protocols. It is recommended to interpret the results in conjunction with this information and the patient's clinical context. This test was developed and its performance characteristics determined by [facility] Pathology and Laboratory Medicine [place] ([facility]). It has not been cleared or approved by the FDA. [facility] is regulated under CLIA as qualified to perform high-complexity testing. This test is used for clinical purposes. It should not be regarded as investigational or for research. Test performed by LC-MS/MS Performed By: #### 2 9247-4 ####[facility] LABIA [id number] [place] [id number] [place] Trigl SerPl-[facility] 4 Triglyceride [Mass/Vol] 68 mg/dL Normal <150 [facility] Comment on above: Order Comment: Praveen reyes Type: BLOOD SPECIMENOrdering Facility: [facility] [place] Address: [address] [place] [address] Result Comment: <150 mg/dL, Normal 150-199 mg/dL, Borderline high 200-499 mg/dL, High >499 mg/dL, Very high Reference: 1. National Cholesterol Education Program ATP III Guideline At-A-Glance Quick Desk Reference: National Heart, Lung, and Blood [place]. National Institutes of Health. 2001: NIH Publication No. 01-3305. Performed By: #### 2 571-8, 1751-7, 174-6 ####[facility] LABCLIA [id number] [address] [address] [place] Triglyceride [Mass/Vol]on FASTING TIME 12 hrs Normal [facility] Comment on above: Order Comment: Speci men Type: BLOOD SPECIMENOrdering Facility: [facility] Address: [address] [place] [address] Performed By: #### 2 571-8, 175-7, 1746 ####[facility] LABCLIA [id number] [address] [address] [place] Cardiology Visit Reporton Cardiology Visit Report [facility] [address] [place], [place] [address] OFFICE VISIT Date of Service: 12/04/23 MR#: [id number] Acct: [id number] Name: АНДРЕЙ NICKERSON Rep #: [id number] : 1960 Provider: AUDIE Haines Age/Sex: 63/M Location: [facility] Status: Signed HPI HPI History of Present Illness Details: Андрей Nickerson is a 63-year-old male who presents to the office today for a cardiovascular outpatient follow-up. He has a history of hypertension, diabetes mellitus type I since age 10, chronic kidney disease stage IV with recent kidney transplant in March 2021. He does have a history of coronary artery disease status post drug-eluting stent to the left anterior descending artery in 2005, PCI to the LAD in 2008, drug-eluting stents to the LAD in 2011. In September 2019, he underwent a cardiac catheterization which demonstrated patency of his LAD stents in his circumflex artery and right coronary artery had mild diffuse disease. His echocardiogram had demonstrated an ejection fraction of 70% with severe left ventricular hypertrophy. He had a stress test in July 2020 which was normal. He did develop COVID in May 2021 with acute encephalopathy. His biggest issue is the pain in his back. He is waiting to see his PCP next week about this. From a cardiac standpoint, the patient is doing well. He denies any palpitations, chest pain, pressure or heaviness. He does have SOB with exertion-this is nothing new or worsening. He denies Orthopnea, and PND. He denies any decrease in energy level, myalgias, or claudication. He does acknowledge bilateral lower extremity edema. He states that he is following with Dr. Lawrence for vascular insufficiency. This is getting better with his lymphatic pumps. He has lost weight. He denies dizziness, lightheadedness, syncopal or near syncopal episodes, and headaches. Intake Vital Signs 08/23/23 14:14 12/04/23 14:24 12/04/23 14:28 Height 5 ft 10 in 5 ft 10 in 5 ft 10 in Weight: 265 lb BMI 38.0 BP 122/76 H Blood Pressure Location Lt brachial Position Sitting Respiration 20 H Pulse 72 Pulse Source Monitor Pulse Oximetry (%) 99 Intake Visit Reasons: 4-5 M FU [employer] P[employer] Required: No Is patient in pain?: No Allergies No Known Allergies Allergy (Verified 12/04/23 14:24) Medications ???Medication ???Instructions ???Recorded ???Confirmed ???Type albuterol sulfate 90 mcg/actuation 1 - 2 puff inhalation Q6H PRN PRN 07/24/19 12/04/23 History aerosol inhaler Wheezing BP cuff #1 ea 11/27/19 12/04/23 Rx pen needle, diabetic 32 gauge x #400 ea 02/12/20 12/04/23 Rx 5/32 (BD Ultra-Fine Cici Pen Needle) tamsulosin 0.4 mg capsule 0.4 mg PO QHS 04/22/20 12/04/23 History propylene glycol 0.6 % eye drops 1 drp ophthalmic (eye) DAILY PRN 07/28/21 12/04/23 History (Systane Balance) lubricant mycophenolate mofetil 250 mg 500 mg PO BID 09/19/21 12/04/23 History capsule sulfamethoxazole 800 1.5 tab PO .QOD 09/19/21 12/04/23 History mg-trimethoprim 160 mg tablet blood-glucose sensor (Dexcom G6 #9 ea 09/22/21 12/04/23 Rx Sensor device) blood-glucose transmitter (Dexcom #1 ea 09/22/21 12/04/23 Rx G6 Transmitter device) sirolimus 0.5 mg tablet 1 mg PO DAILY 01/30/22 12/04/23 History aspirin 325 mg tablet 325 mg PO DAILY 03/17/22 12/04/23 History atorvastatin 40 mg tablet 40 mg PO QHS #90 tabs 06/09/22 12/04/23 Rx blood sugar diagnostic (Blood #100 ea 10/13/22 12/04/23 Rx Glucose Test strips) insulin lispro 100 unit/mL 120 unit (1.2 mL) subcut DAILY 10/19/22 12/04/23 Rx subcutaneous solution (Humalog #100 mL U-100 Insulin) blood-glucose meter #1 ea 10/23/22 12/04/23 Rx amlodipine 2.5 mg tablet 2.5 mg PO DAILY #30 tabs 02/16/23 12/04/23 Rx timolol 0.5 % eye drops 1 drp ophthalmic (eye) DAILY 05/07/23 12/04/23 History Novolog U-100 Insulin aspart 100 120 unit (1.2 mL) continuous 06/04/23 12/04/23 Rx unit/mL subcutaneous solution subcutaneous infusion .continuous (insulin aspart U-100) #108 mL blood sugar diagnostic (Accu-Chek #100 ea 06/04/23 12/04/23 Rx Guide test strips) blood-glucose meter (Accu-Chek #1 ea 06/04/23 12/04/23 Rx Guide Glucose Meter) lancing device with lancets kit #1 ea 06/04/23 12/04/23 Rx (Accu-Chek Softclix Lancing Device+Lancets kit) carvedilol 12.5 mg tablet 12.5 mg PO BID #180 tabs 07/02/23 12/04/23 Rx clopidogrel 75 mg tablet 75 mg PO DAILY #90 tabs 07/02/23 12/04/23 Rx bupropion HCl 100 mg tablet,12 hr 100 mg PO BID #60 ea 08/15/23 12/04/23 Rx sustained-release (Wellbutrin SR) famotidine 20 mg tablet (Pepcid) 20 mg PO DAILY PRN 12/04/23 12/04/23 History Have you fallen in the past year?: No [facility] Medical History ... Normal [facility] CNOVon 11-27-2023 CNOV Office Visit (PODIWS ) -- АНДРЕЙ NICKERSON ([id number]) 1960 M Date Time Provider Department 11/27/23 2:00 PM TRINY PALMER PODIWS During your visit today, we recorded the following information about you: Delmy Beth, NAIT 11/27/2023 2:11 PM Signed Patient presents with: Left Foot - Established Patient, Follow Up, Diabetic Foot Care Right Foot - Established Patient, Follow Up, Diabetic Foot Care Patient presents for follow up diabetic foot exam. JAMEY 07/30/23 Triny Palmer 11/27/2023 1:55 PM Signed Diabetes Foot Care Instructions When you have diabetes, proper foot care is very important. Poor foot care may lead to amputation of a foot or leg. As a person with diabetes, you are more vulnerable to foot problems, because diabetes can damage your nerves and reduce blood flow to your feet. Here are some diabetes foot care tips to follow: Wash and Dry Your Feet Daily Use mild soaps Use warm water Pat your skin dry; do not rub. Thoroughly dry your feet. After washing, use lotion on your feet to prevent cracking. Do not put lotion between your toes. Examine Your Feet Each Day Check the tops and bottoms of your feet. Have someone else look at your feet if you cannot see them. Check for dry, cracked skin. Look for blisters, cuts, scratches, or other sores. Check for redness, increased warmth, or tenderness when touching any area of your feet. Check for ingrown toenails, corns, and calluses. If you get a blister or sore from your shoes, do not pop it. Apply a bandage and wear a different pair of shoes. Take Care of Your Toenails Cut toenails after bathing, when they are soft. Cut toenails straight across and smooth with a nail file. Avoid cutting into the corners of toes. Do not cut cuticles. If you have neuropathy (or decreased sensation in your feet) a track helper should always cut your toenails. Be Careful When Exercising Walk and exercise in comfortable shoes. Do not exercise when you have open sores on your feet. Protect Your Feet With Shoes and Socks Never go barefoot. Always protect your feet by wearing shoes or hard-soled slippers or footwear. Avoid shoes with high heels and pointed toes. Avoid shoes that expose your toes or heels (such as open-toed shoes or sandals). These types of shoes increase your risk for injury and potential infections. Try on new footwear with the type of socks you usually wear. Do not wear new shoes for more than an hour at a time. Change your socks daily. Look and feel inside your shoes before putting them on to make sure there are no foreign objects or rough areas. Avoid tight socks. Wear natural-fiber socks (cotton, wool, or a cotton-wool blend). Wear special shoes if your health care provider recommends them. Wear shoes/boots that will protect your feet from various weather conditions (cold, moisture, etc.). Make sure your shoes fit properly. If you have neuropathy (nerve damage), you may not notice that your shoes are too tight. Perform the footwear test described below. Footwear Test Use this simple test to see if your shoes fit correctly: Stand on a piece of paper. (Make sure you are standing and not sitting, because your foot changes shape when you stand.) Trace the outline of your foot. Trace the outline of your shoe. Compare the tracings: Is the shoe too narrow? Is your foot crammed into the shoe? The shoe should be at least 1/2 inch longer than your longest toe and as wide as your foot. Proper Shoe Choices The following types of shoes are best for people with diabetes Closed toes and heels Leather uppers without a seam inside At least 1/2 inch extra space at the end of your longest toe Inside of shoe should be soft with no rough areas Outer sole should be made of stiff material Shoes should be at least as wide as your feet Tips for Foot Care in Diabetes Don't wait to treat a minor foot problem if you have diabetes. Follow your health care provider's guidelines and first aid guidelines. Report foot injuries and infections to your health care provider immediately. Check water temperature with your elbow, not your foot. Do not use a heating pad on your feet. Do not cross your legs. Do not self-treat your corns, calluses, or other foot problems. Go to your health care provider or track helper to treat these conditions. Spencer Triny 11/27/2023 2:11 PM Signed Last saw pcp: 05/07/23 Subjective: Patient presents to clinic c/o painful toenails. They state that the nails are especially painful with shoe gear and pressure. Patient states that nails 1-5 b/l are painful. Patient admits to being diabetic. No other pedal complaints at this time. Patient states no change in medications or medical history since last visit. Objective: Patient presents to clinic ambulating in diabetic boots Vasc: DP and PT pulses (more content not included)... Normal [facility] OCT OPTIC NERVE CIRRUS OU (B OTH EYES)on 11-12-2023 [facility] Radiology Study observation (narrative) [facility] CNOVon 11-07-2023 CNOV Office Visit (WSTR ) -- АНДРЕЙ NICKERSON ([id number]) 1960 M Date Time Provider Department 11/07/23 2:15 PM GLYNN LEON [facility] During your visit today, we recorded the following information about you: Temperature Pulse Respiration Blood pressure 96.8 degrees 70/minute 21/minute 120/70 Weight 120.8 kg Glynn Leon MD 11/07/2023 2:37 PM Signed Patient presents with: Sinus Problem: Congestion, NAJERA x 2 weeks HPI: Feeling sick for 2 weeks. Head congestion feels worse today. Positive symptoms: Sinus pressure, Nasal Congestion, Rhinorrhea, Post nasal drainage, Headache, feels cold today Negative symptoms: Shortness of breath, Sore throat, Fever, Nausea, Vomiting, OTC: none (on immune suppression for kidney transplant) PAST MEDICAL HISTORY No date: Arrhythmia No date: CKD (chronic kidney disease) stage 3, GFR 30-59 ml/min ([facility]) Comment: [facility] 2006: Coronary artery disease Comment: s/p PCI. 3 stents total 1971: Diabetes type 1, uncontrolled Comment: nephropathy, retinopathy, dx age 10, Dr. Leon [facility] No date: Heart attack ([facility]) No date: Hyperlipidemia No date: Hypertension No date: Lacunar stroke ([facility]) No date: Macular edema Comment: [facility] No date: MVP (mitral valve prolapse) No date: Pancreatitis No date: Proliferative diabetic retinopathy(362.02) Comment: [facility] No date: Snoring 2017: Stroke ([facility]) No date: Tobacco abuse PAST SURGICAL HISTORY No date: AVASTIN (BEVACIZUMAB) 1.25MG INTRAVITREAL INJECTION OS (LEFT EYE) Comment: x5 (04/16/2015) Dr. Connelly 01/12/2022: CANALOPLASTY W/O STENT; Right Comment: Canaloplasty 360 degrees / Trabeculotomy 180 degrees 2005, 2008, 2011: CARDIAC CATH Comment: mid / distal LAD stents DENISHA 10/08/2018: COLONOSCOPY FLX DX W/COLLJ SPEC WHEN PFRMD Comment: Colonoscopy No date: PAST SURGICAL HISTORY OF; Bilateral Comment: Keratectomy 03/19/2020: PAST SURGICAL HISTORY OF; N/A Comment: Laparoscopic peritoneal dialysis catheter placement with omentopexy- Shamir Tsai MD 03/2020: PAST SURGICAL HISTORY OF Comment: PD Catheter 02/18/2021: PAST SURGICAL HISTORY OF; Left Comment: Canaloplasty / Trabeculotomy 03/27/2021: TRANSPLANTATION OF KIDNEY; Right 03/10/2015: XCAPSL CTRC RMVL INSJ IO LENS PROSTH W/O ECP; Left Comment: Cataract Extraction with PC IOL 04/01/2015: XCAPSL CTRC RMVL INSJ IO LENS PROSTH W/O ECP; Right Comment: Cataract Extraction with PC IOL MEDICATIONS: Current Outpatient Medications Medication Sig timolol maleate (TIMOPTIC) 0.5 % ophthalmic solution Use 1 Drop in both eyes two times a day. Use 1 drop in both eyes at 8 am and 6 pm carvedilol (COREG) 12.5 mg tablet Take 1 tablet by mouth once daily. atorvastatin (LIPITOR) 40 mg tablet Take 1 tablet by mouth once daily. famotidine (PEPCID) 20 mg tablet Take 1 tablet by mouth two times a day. amLODIPine (NORVASC) 2.5 mg tablet fluticasone (FLONASE) 50 mcg/actuation nasal spray Use 2 Sprays in each nostril once daily. Rinse mouth after use. sirolimus (RAPAMUNE) 0.5 mg tablet Take 1 mg by mouth once daily. propylene glycoL (SYSTANE COMPLETE) 0.6 % drop Use 1 Drop in both eyes four times daily. docusate sodium (COLACE) 100 mg capsule Take 100 mg by mouth twice daily. mycophenolate mofetil (CELLCEPT) 250 mg capsule Take by mouth twice daily. 4 caps q 12 hours sulfamethoxazole-trimethop rim (BACTRIM DS,SEPTRA DS) 800-160 mg per tablet Take by mouth twice daily. clopidogrel (PLAVIX) 75 mg tablet Take 1 tablet by mouth once daily. tamsulosin (FLOMAX) 0.4 mg TAKE 1 CAPSULE BY MOUTH EVERYDAY AT BEDTIME blood sugar diagnostic (nanoThericsUCH ULTRA TEST) test strip Checking blood sugars 3-4 times daily Insulin [place], Disposable, (BD ULTRAFINE III MINI PEN) 31 gauge x 3/16 use as directed up to four times daily, E11.9 Blood-Glucose Sensor (DEXCOM G6 SENSOR) darleen Change Sensor every 14 days Patient reading blood sugar 12 times daily Blood-Glucose Meter,Continuous (DEXCOM G4 B OPERATOR-SHARE KIT) misc One [place] device, patient checks blood sugars 12 times daily Blood-Glucose Transmitter (DEXCOM G6 TRANSMITTER) darleen 1 Each as directed. Blood-Glucose Meter,Continuous (DEXCOM G6 B OPERATOR) misc 1 Each as directed. insulin detemir U-100 (LEVEMIR FLEXTOUCH U-100 INSULN) 100 unit/mL (3 mL) inpn injection INJECT 36 UNITS SUBCUTANEOUSLY DAILY AT BEDTIME. Lancets (MICROLET LANCET) lancets Test blood sugar(s) 3-4 times daily. Dx: 250.00 . Insulin: Yes Blood-Glucose Meter (ONETOUCH ULTRA2) monitoring kit 1 Each as needed. 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 furosemide (LASIX) 20 mg tablet Take 1 tablet by mouth every afternoon. (Patient not (more content not included)... Normal [facility] ALLOSCREEN RECIPIENT (POST T X PRA)on 11-06-2023 AB SPECIFICITY CLASS COMMENT Antibody Specificity testing performed by [employer]. cPRA calculation based on identification of HLA antibody specificities at MFI >2000 and/or presence of CREG antibodies. Normal [facility] Comment on above: Result Comment: Some of the reagents used for testing in the Clinical Histocompatibility Laboratory have yet to be approved by the FDA. Our certification by CLIA to perform high complexity tests allows us to use these reagents in the context of a stringent QC program, and obviates the need for FDA approval.Testing performed by the [facility] Clinical Histocompatibility Laboratory. [facility] number: [id number]. CLIA number: [id number], Director: Valentin Qureshi, PhD, F([facility]). Performed By: #### A LLOR #### [facility] (DEFAULT) [address] [address] ANTIBODY SPECIFICITY INTERPRETATION Detected Normal [facility] Comment on above: Performed By: #### A LLOR #### [facility] (DEFAULT) [address] [address] CLASS I SPECIFICITIES Not detected Normal O [facility] Comment on above: Performed By: #### A LLOR #### [facility] (DEFAULT) [address] [address] CLASS II SPECIFICITIES Not detected Normal [facility] Comment on above: Performed By: #### A LLOR #### [facility] (DEFAULT) [address] [address] cPRA 0 % Normal 0 [facility] Comment on above: Performed By: #### A LLOR #### [facility] (DEFAULT) [address] [place] [address] BK VIRUS DNA QN, PCR, PLASMA on 11-06-2023 Bk Viral Load, Plasma <500 Normal <500 [facility] Comment on above: Order Comment: This test was performed using a real time PCR assay. The dynamic range for this assay is 500-5,000,000 copies/mL. This test was developed and its performance characteristics determined by The Clinical Microbiology Laboratory at [facility]. It has not been cleared or approved by the FDA. The laboratory is regulated under CLIA as qualified to perform high-complexity testing. This test is used for clinical purposes. It should not be regarded as investigational or for research. Performed By: #### B KBP #### [facility] (DEFAULT) [address] [place] [address] URINALYSIS REFLEX TO CULTURE PERFORMABLEOrdered By: Kina Valdovinos on 11-06-2023 Appearance (U) Clear Clear [facility] Bacteria LM Ql (Urine sed) ABSENT ABSENT [facility] Color (U) Yellow Yellow [facility] Epithelial cells.squamous LM Ql (Urine sed) 0-2/hpf 0-2/hpf, 3-5/hpf = 1+ [facility] Glucose Test strip (U) [Mass/Vol] 100 mg/dL Abnormal Negative [facility] Interpretation and review of laboratory results [facility] Ketones (U[facility] [Mass/Vol] Negative Negative [facility] Leukocyte esterase Test strip Ql (U) Trace Abnormal Negative [facility] Nitrite Ql (U) Negative Negative [facility] pH (U) 6.0 [pH] 5.0 - 7.0 [facility] Protein (U) [Mass/Vol] 100 mg/dL Abnormal Negative [facility] RBC (U) [#/Vol] Small [facility]normal [facility] RBC LM.HPF (Urine sed) [#/Area] 0-2 [facility] Specific gravity (U) [Rel density] 1.014 1.001 - 1.035 [facility] Urobilinogen (U) [Mass/Vol] 0.2 E.U./dL 0.2 E.U/dL, 1.0 E.U/dL [facility] WBC LM.HPF (Urine sed) [#/Area] 6 - 10 Abnormal [facility] URINALYSIS REFLEX TO CULTURE PERFORMABLEon 11-06-2023 Appearance (U) Clear Normal Clear [facility] Comment on above: Performed By: #### U [id number] #### [facility] (DEFAULT) [address] [place] [address] Bacteria ABSENT Normal ABSENT [facility] Comment on above: Performed By: #### U [id number] #### [facility] (DEFAULT) [address] [place] [address] Blood Urine Small Abnormal Negative [facility] Comment on above: Performed By: #### U [id number] #### [facility] (DEFAULT) [address] [place] [address] Color (U) Yellow Normal Yellow [facility] Comment on above: Performed By: #### U [id number] #### [facility] (DEFAULT) [address] [place] [address] Glucose Ql (U) 100 mg/dL Abnormal Negative [facility] Comment on above: Performed By: #### U [id number] #### [facility] (DEFAULT) [address] [place] [address] Ketones Ql (U) Negative Normal Negative [facility] Comment on above: Performed By: #### U [id number] #### [facility] (DEFAULT) [address] [place] [address] Leukocyte esterase Test strip Ql (U) Trace Abnormal Negative [facility] Comment on above: Performed By: #### U [id number] #### [facility] (DEFAULT) [address] [place] [address] Nitrites Urine Negative Normal Negative [facility] Comment on above: Performed By: #### U [id number] #### [facility] (DEFAULT) [address] [place] [address] pH (U) 6.0 [pH] Normal 5.0-7.0 [facility] Comment on above: Performed By: #### U [id number] #### [facility] (DEFAULT) [address] [place] [address] Protein Urine 100 mg/dL Abnormal Negative [facility] Comment on above: Performed By: #### U [id number] #### [facility] (DEFAULT) [address] [place] [address] RBC Urine 0-2 Normal 0-2 [facility] Comment on above: Performed By: #### U [id number] #### [facility] (DEFAULT) [address] [place] [address] Specific [place] Urine 1.014 Normal 1.001 -1.03 5 [facility] Comment on above: Performed By: #### U [id number] #### [facility] (DEFAULT) [address] [place] [address] Squamous/Epithelial Cells 0-2/hpf Normal 0-2/hpf, 3-5/hpf = 1+ [facility] Comment on above: Performed By: #### U [id number] #### U [facility] (DEFAULT) [address] [place] [address] Urobilinogen Urine 0.2 E.U./dL Normal 0.2 E.U/dL, 1.0 E.U/dL [facility] Comment on above: Performed By: #### U [id number] #### U [facility] (DEFAULT) [address] [place] [address] WBC Urine 6 - 10 Abnormal 0 - 5 [facility] Comment on above: Performed By: #### U [id number] #### [facility] (DEFAULT) [address] [place] [address] URINE PROTEIN/CREA RATIO, RA Springer 11-06-2023 Creatinine (24H U) [Mass/Vol] 64.09 mg/dL [facility] Protein Unsp time (U) [Mass/Vol] 119 mg/dL [facility] Protein/Creatinine (U) [Mass ratio] 1.857 mg/mg [facility] Creatinine (U) [Mass/Vol] 64.09 mg/dL Normal [facility] Comment on above: Performed By: #### U PCR #### [facility] (DEFAULT) [address] [place] [address] Prot/Creat Ratio 1.857 mg/mg Normal [facility] Comment on above: Performed By: #### U PCR #### [facility] (DEFAULT) [address] [place] [address] Protein Ql (U) 119 mg/dL Normal [facility] Comment on above: Performed By: #### U PCR #### [facility] (DEFAULT) [address] [place] [address] BUN SerPl-mCncon 09-28-2023 Urea nitrogen [Mass/Vol] 20 mg/dL Normal 9-24 [facility] Comment on above: Order Comment: Speci men Type: BLOOD SPECIMENOrdering Facility: [facility] Address: [address] [place] [address] Performed By: #### 3 094-0, K1, 25197-9, 2777-1, CRET1 ####[facility] [id number] [address] [place] CBC W Auto Differential pane l (Bld)on 09-28-2023 Basophils (Bld) [#/Vol] 0.03 10*3/uL Normal <0.11 [facility] Comment on above: Order Comment: Speci men Type: BLOOD SPECIMENOrdering Facility: [facility] Address: [address] [place] [address] Performed By: #### 5 7021-8 ####[facility] LABCL[facility] [id number] [place] [id number] [place] Basophils/100 WBC (Bld) 0.6 % Normal [facility] Comment on above: Order Comment: Speci men Type: BLOOD SPECIMENOrdering Facility: [facility] [place] Address: [address] [place] [id number] Performed By: #### 5 7021-8 ####[facility] [id number] [place] [address] [place] Differential cell count method Nom (Bld) Auto Normal [facility] Comment on above: Order Comment: Speci men Type: BLOOD SPECIMENOrdering Facility: [facility] [place] Address: [address] [place] [address] Performed By: #### 5 7021-8 ####[facility] [id number] [place] [address] [place] Eosinophils (Bld) [#/Vol] 0.06 10*3/uL Normal <0.46 [facility] Comment on above: Order Comment: Speci men Type: BLOOD SPECIMENOrdering Facility: [facility] [place] Address: [address] [place] [address] Performed By: #### 5 7021-8 ####[facility]CL[facility] [id number] [place] [address] [place] Eosinophils/100 WBC (Bld) 1.3 % Normal [facility] Comment on above: Order Comment: Speci men Type: BLOOD SPECIMENOrdering Facility: [facility] Address: [address] [place] [address] Performed By: #### 5 7021-8 ####[facility]CLIA [id number] [place] [address] [place] Erythrocyte distribution width (RBC) [Ratio] 14.1 % Normal 11.5-15.0 [facility] Comment on above: Order Comment: Speci men Type: BLOOD SPECIMENOrdering Facility: [facility] Address: [address] [place] [address] Performed By: #### 5 7021-8 ####[facility] LABIA [id number] [place] [address] [place] Hematocrit (Bld) [Volume fraction] 37.6 % Low 39.0-51.0 [facility] Comment on above: Order Comment: Speci men Type: BLOOD SPECIMENOrdering Facility: [facility] [place] Address: [address] [place] [address] Performed By: #### 5 7021-8 ####[facility] LABIA [id number] [place] [address] [place] Hemoglobin (Bld) [Mass/Vol] 11.4 g/dL Low 13.0-17.0 [facility] Comment on above: Order Comment: Speci men Type: BLOOD SPECIMENOrdering Facility: [facility] [place] Address: [address] [place] [address] Performed By: #### 5 7021-8 ####[facility] LABIA [id number] [place] [address] [place] Immature granulocytes (Bld) [#/Vol] 0.03 10*3/uL Normal <0.10 [facility] Comment on above: Order Comment: Speci men Type: BLOOD SPECIMENOrdering Facility: [facility] [place] Address: [address] [place] [address] Performed By: #### 5 7021-8 ####[facility] LABIA [id number] [place] [id number] [place] Immature granulocytes/100 WBC (Bld) 0.6 % Normal [facility] Comment on above: Order Comment: Speci men Type: BLOOD SPECIMENOrdering Facility: [facility] [place] Address: [address] [place] [address] Performed By: #### 5 7021-8 ####[facility]IA [id number] [place] [address] [place] Lymphocytes (Bld) [#/Vol] 1.13 10*3/uL Normal 1.00-4.00 [facility] Comment on above: Order Comment: Speci men Type: BLOOD SPECIMENOrdering Facility: [facility] Address: [address] [place] [address] Performed By: #### 5 7021-8 ####[facility] [id number] [place] [address] [place] Lymphocytes/100 WBC (Bld) 23.8 % Normal [facility] Comment on above: Order Comment: Speci men Type: BLOOD SPECIMENOrdering Facility: [facility] Address: [address] [place] [address] Performed By: #### 5 7021-8 ####[facility] [id number] [place] [address] [place] MCH (RBC) [Entitic mass] 26.8 pg Normal 26.0-34.0 [facility] Comment on above: Order Comment: Speci men Type: BLOOD SPECIMENOrdering Facility: [facility] [place] Address: [address] [place] [address] Performed By: #### 5 7021-8 ####[facility] [id number] [place] [address] [place] MCHC (RBC) [Mass/Vol] 30.3 g/dL Low 30.5-36.0 [facility] Comment on above: Order Comment: Speci men Type: BLOOD SPECIMENOrdering Facility: [facility] Address: [address] [place] [address] Performed By: #### 5 7021-8 ####[facility] [id number] [place] [address] [place] MCV (RBC) [Entitic vol] 88.5 fL Normal 80.0-100.0 [facility] Comment on above: Order Comment: Speci men Type: BLOOD SPECIMENOrdering Facility: [facility] Address: [address] [place] [address] Performed By: #### 5 7021-8 ####[facility] LABCLIA [id number] [place] [address] [place] Monocytes (Bld) [#/Vol] 0.77 10*3/uL Normal <0.87 [facility] Comment on above: Order Comment: Speci men Type: BLOOD SPECIMENOrdering Facility: [facility] Address: [address] [place] [address] Performed By: #### 5 7021-8 ####[facility] LABCLIA [id number] [place] [address] [place] Monocytes/100 WBC (Bld) 16.2 % Normal [facility] Comment on above: Order Comment: Speci men Type: BLOOD SPECIMENOrdering Facility: [facility] Address: [address] [place] [address] Performed By: #### 5 7021-8 ####[facility] LABCLIA [id number] [place] [address] [place] Neutrophils (Bld) [#/Vol] 2.73 10*3/uL Normal 1.45-7.50 [facility] Comment on above: Order Comment: Speci men Type: BLOOD SPECIMENOrdering Facility: [facility] Address: [address] [place] [address] Performed By: #### 5 7021-8 ####[facility] LABCLIA [id number] [place] [id number] [place] Neutrophils/100 WBC (Bld) 57.5 % Normal [facility] Comment on above: Order Comment: Speci men Type: BLOOD SPECIMENOrdering Facility: [facility] Address: [address] [place] [address] Performed By: #### 5 7021-8 ####[facility] LABCLIA [id number] [place] [address] [place] Nucleated RBC (Bld) [#/Vol] 10*3/uL Normal <0.01 [facility] Comment on above: Order Comment: Speci men Type: BLOOD SPECIMENOrdering Facility: [facility] [place] Address: [address] [place] [address] Performed By: #### 5 7021-8 ####[facility] LABCLIA [id number] [place] [address] [place] Nucleated RBC/100 WBC (Bld) [Ratio] 0.0 /100 WBC Normal [facility] Comment on above: Order Comment: Speci men Type: BLOOD SPECIMENOrdering Facility: [facility] [place] Address: [address] [place] [address] Performed By: #### 5 7021-8 ####[facility] LABCLIA [id number] [place] [address] [place] Platelet mean volume (Bld) [Entitic vol] 9.6 fL Normal 9.0-12.7 [facility] Comment on above: Order Comment: Speci men Type: BLOOD SPECIMENOrdering Facility: [facility] [place] Address: [address] [place] [address] Performed By: #### 5 7021-8 ####[facility] [id number] [place] [id number] [place] Platelets (Bld) [#/Vol] 243 10*3/uL Normal 150-400 [facility] Comment on above: Order Comment: Speci men Type: BLOOD SPECIMENOrdering Facility: [facility] Address: [address] [place] [address] Performed By: #### 5 7021-8 ####[facility] LABCLIA [id number] [place] [id number] [place] RBC (Bld) [#/Vol] 4.25 10*6/uL Normal 4.20-6.00 [facility] Comment on above: Order Comment: Speci men Type: BLOOD SPECIMENOrdering Facility: [facility] [place] Address: [address] [place] [address] Performed By: #### 5 7021-8 ####[facility] LABCLIA [id number] [place] [id number] [place] WBC (Bld) [#/Vol] 4.75 10*3/uL Normal 3.70-11.00 [facility] Comment on above: Order Comment: Speci men Type: BLOOD SPECIMENOrdering Facility: [facility] [place] Address: [address] [place] [address] Performed By: #### 5 7021-8 ####[facility] [id number] [place] [address] [place] CO2 SerPl-sCncon 09-28-2023 CO2 [Moles/Vol] 19 mmol/L Low 22-30 [facility] Comment on above: Order Comment: Speci men Type: BLOOD SPECIMENOrdering Facility: [facility] [place] Address: [address] [place] [address] Performed By: #### 1 7861-6, 2075-0, 2951-2, 2027-12 ####[facility] [id number] [place] [address] [place] CREATININE BLDon 09-28-2023 Creatinine [Mass/Vol] 2.66 mg/dL High 0.73-1.22 [facility] Comment on above: Order Comment: Speci men Type: BLOOD SPECIMENOrdering Facility: [facility] [place] Address: [address] [place] [address] Performed By: #### 3 094-0, K1, 32859-7, 2777-1, CRET1 ####[facility] [id number] [place] [address] [place] Creatinine and Glomerular filtration rate.predicted panel (S/P/Bld) 26 mL/min/1.73m??? Low >=60 [facility] Comment on above: Order Comment: Praveen reyes Type: BLOOD SPECIMENOrdering Facility: [facility] Address: [address] [place] [address] Result Comment: Leah mated Glomerular Filtration Rate (eGFR) is calculated using the 2020 CKD-EPI creatinine equation. This equation utilizes serum creatinine, sex, and age as parameters. The creatinine assay has traceable calibration to isotope dilution-mass spectrometry. Refer to KDIGO guidelines for clinical interpretation. In patients with unstable renal function, e.g. those with acute kidney injury, the eGFR may not accurately reflect actual GFR. Performed By: #### 3 094-0, K1, 56209-9, 2777-1, CRET1 ####[facility] LABCLIA [id number] [place] [id number] [place] Calcium SerPl-mCncon 024 Calcium [Mass/Vol] 9.0 mg/dL Normal 8.5-10.2 [facility] Comment on above: Order Comment: Praveen reyes Type: BLOOD SPECIMENOrdering Facility: [facility] [place] Address: [address] [place] [address] Performed By: #### 1 7861-6, 2074-0, 2950-2, 2027-12 ####[facility] LABCLIA [id number] [place] [id number] [place] Chloride SerPl-sCncon 2023 Chloride [Moles/Vol] 108 mmol/L High 98-107 [facility] Comment on above: Order Comment: Praveen reyes Type: BLOOD SPECIMENOrdering Facility: [facility] [place] Address: [address] [place] [address] Performed By: #### 1 7861-6, 2074-0, 2950-2, 2027-12 ####[facility] LABCLIA [id number] [place] [id number] [place] Glucose p fast SerPl-mCncon 09-28-2023 Glucose post fast [Mass/Vol] 133 mg/dL High 74-99 [facility] Comment on above: Order Comment: Bari men Type: BLOOD SPECIMENOrdering Facility: [facility] [place] Address: [address] [place] [address] Result Comment: Unruly [place] Diabetes Association guidelines state that a diabetes mellitus diagnosis is preliminarily made when the fasting plasma glucose meets or exceeds 126 mg/dL. In the absence of unequivocal hyperglycemia, results should be confirmed with repeat testing. Patients are at increased risk for diabetes mellitus (prediabetes) when the fasting glucose is 100 to 125 mg/dL. Performed By: #### 1 558-6 ####[facility] LABCLIA [id number] [place] [address] [place] Magnesium SerPl-mCncon 09-27 Magnesium [Mass/Vol] 2.2 mg/dL Normal 1.7-2.3 [facility] Comment on above: Order Comment: Praveen men Type: BLOOD SPECIMENOrdering Facility: [facility] [place] Address: [address] [place] [address] Performed By: #### 3 094-0, K1, 59089-9, 2777-1, CRET1 ####[facility] [id number] [place] [address] [place] POTASSIUMon 09-28-2023 Potassium [Moles/Vol] 4.4 mmol/L Normal 3.7-5.1 [facility] Comment on above: Order Comment: Bari men Type: BLOOD SPECIMENOrdering Facility: [facility] [place] Address: [address] [place] [address] Performed By: #### 3 094-0, K1, 01166-7, 2777-1, CRET1 ####[facility] [id number] [place] [id number] [place] Phosphate SerPl-mCncon 09-27 Phosphate [Mass/Vol] 2.4 mg/dL Low 2.7-4.8 [facility] Comment on above: Order Comment: Speci men Type: BLOOD SPECIMENOrdering Facility: [facility] [place] Address: [address] [place] [address] Performed By: #### 3 094-0, K1, 14832-7, 2777-1, CRET1 ####[facility] LABCLIA [id number] [place] [address] [place] Sirolimus Bld-mCncon 024 Sirolimus (Bld) [Mass/Vol] 6.9 ng/mL Normal 4.0-12.0 [facility] Comment on above: Order Comment: Speci amy Type: BLOOD SPECIMENOrdering Facility: [facility] [place] Address: [address] [place] [address] Result Comment: The optimal therapeutic range may vary based on the indication for treatment, transplant type, time post transplant, simultaneous use of other immunosuppressive drugs, and clinical or institutional protocols. It is recommended to interpret the results in conjunction with this information and the patient's clinical context. This test was developed and its performance characteristics determined by [facility] Pathology and Laboratory Medicine [place] ([facility]). It has not been cleared or approved by the FDA. -[facility] is regulated under CLIA as qualified to perform high-complexity testing. This test is used for clinical purposes. It should not be regarded as investigational or for research. Test performed by LC-MS/MS Performed By: #### 2 9247-4 ####[facility] LABCLIA [id number] [place] [id number] [place] Sodium SerPl-sCncon 09-28-19 24 Sodium [Moles/Vol] 138 mmol/L Normal 136-144 [facility] Comment on above: Order Comment: Praveen reyes Type: BLOOD SPECIMENOrdering Facility: [facility] [place] Address: [address] [place] [address] Performed By: #### 1 7861-6, 2075-0, 2951-2, 2027-9 ####[facility] LABCLIA [id number] [address] [address] [place] FUNDUS PHOTOS OU (BOTH EYES) on 09-11-2023 [facility] Radiology Study observation (narrative) [facility] VISUAL FIELD 24-2 OU (BOTH E YES)on 09-11-2023 [facility] Radiology Study observation (narrative) [facility] Basophil percentageOrdered B y: Nicolas Lawrence on 06-21-2023 Chloride [Moles/Vol] 111 mmol/L 98-107 [facility] Glucose [Mass/Vol] 195 mg/dL 74-[address] [facility] Comment on above: Fasting Glucose resu lt greater than or equal to 126 mg/dL suggests DIABETES MELLITUS per A.D.A. criteria. Potassium [Moles/Vol] 4.0 mmol/L 3.5-5.1 [facility] Sodium [Moles/Vol] 139 mmol/L 136-[address] [facility] Hemoglobin (Bld) [Mass/Vol] 11.3 g/dL 13.0-16.5 [facility] WBC (Bld) [#/Vol] 4.6 10*3/uL 4.4-11.[address] [facility] Determination of erythrocyte mean corpuscular volume (MCV)Ordered By: Nicolas Lawrence on 06-21-2023 MCV (RBC) [Entitic vol] 89.0 fL 80-94 [facility] Erythrocyte distribution wid th ratioOrdered By: Nicolas Lawrence on 06-21-2023 Erythrocyte distribution width (RBC) [Ratio] 14.6 % 11.6-14.6 [facility] Erythrocyte distribution wid th standard deviationOrdered By: Nicolas Lawrence on 06-21-2023 Erythrocyte distribution width (RBC) [Entitic vol] 47.2 fL 35.1-43.9 [facility] Hematocrit Auto (Bld) [Volum e fraction]Ordered By: Nicolas Lawrence on 06-21-2023 Hematocrit (Bld) [Volume fraction] 37.1 % 40-54 [facility] Laboratory - Chemistry and C hemistry - challengeOrdered By: Nicolas Lawrence on 06-21-2023 CO2 [Moles/Vol] 24.0 mmol/L 21.0-32.0 [facility] Urea nitrogen/Creatinine [Mass ratio] 8.8 mg/mg 10-20 [facility] Laboratory - Hematology and Cell countsOrdered By: Nicolas Lawrence on 06-21-2023 MCH (RBC) [Entitic mass] 27.1 pg 27.0-32.0 [facility] MCHC (RBC) [Mass/Vol] 30.5 g/dL 32-36 [facility] Platelet mean volume (Bld) [Entitic vol] 10.1 fL 6.2-12.0 [facility] Platelets (Bld) [#/Vol] 220 10*3/uL 150-450 [facility] No Panel InformationOrdered By: Nicolas Lawrence on 06-21-2023 Estimated Creatinine Clearance Calc 41.88 ml/min [facility] Estimated GFR (MDRD) Amer 34 mL/min >60 [facility] Comment on above: GFR Calc Estimated GFR (MDRD) Non-Af Amer 28 mL/min >60 [facility] Comment on above: Non- GFR Calc RBC Auto (Bld) [#/Vol]Ordere d By: Nicolas Lawrence on 06-21-2023 RBC (Bld) [#/Vol] 4.17 10*6/uL 4.6-6.2 [facility] Serum or plasma calcium caity urement (mass/volume)Ordered By: Nicolas Lawrence on 06-21-2023 Calcium [Mass/Vol] 9.1 mg/dL 8.5-10.[address] [facility] Serum or plasma creatinine m easurement (mass/volume)Ordered By: Nicolas Lawrence on 06-21-2023 Creatinine [Mass/Vol] 2.51 mg/dL 0.70-1.30 [facility] Comment on above: The validity of the calculated GFR & GFRAA in patients over 70 years has not been determined. Clinical correlation is essential. Serum or plasma urea nitroge n measurement (mass/volume)Ordered By: Nicolas Lawrence on 06-21-2023 Urea nitrogen [Mass/Vol] 22 mg/dL 7-18 [facility] Thin prep Papanicolaou smear with manual screeningOrdered By: Nicolas Lawrence on 06-21-2023 Thin prep Papanicolaou smear with manual screening 4 5-15 [facility] Absolute lymphocyte countOrd ered By: Gabi Lieberman on 02-05-2024 Lymphocytes Auto (Unsp spec) [#/Vol] 1.03 10*3/uL 0.83-4.51 [facility] Automated lymphocyte count a s percentage of total leukocytesOrdered By: Gabi Lieberman on 05-07-2023 Lymphocytes/100 WBC Auto (Unsp spec) 25.3 % 19-41 [facility] Basophil percentageOrdered B y: Gabi Lieberman on 05-07-2023 Basophils/100 WBC (Bld) 0.5 % 0-1 [facility] Chloride [Moles/Vol] 111 mmol/L 98-107 [facility] Eosinophils/100 WBC (Bld) 1.5 % 0-5 [facility] Glucose [Mass/Vol] 187 mg/dL 74-[address] [facility] Comment on above: Fasting Glucose resu lt greater than or equal to 126 mg/dL suggests DIABETES MELLITUS per A.D.A. criteria. Hemoglobin (Bld) [Mass/Vol] 11.1 g/dL 13.0-16.5 [facility] Monocytes/100 WBC (Bld) 17.7 % 0-10 [facility] Neutrophils (Bld) [#/Vol] 2.2 10*3/uL 2.0-7.7 [facility] Neutrophils/100 WBC (Bld) 54.3 % 47-70 [facility] Potassium [Moles/Vol] 4.1 mmol/L 3.5-5.1 [facility] Sodium [Moles/Vol] 137 mmol/L 136-[address] [facility] WBC (Bld) [#/Vol] 4.1 10*3/uL 4.4-11.[address] [facility] Determination of erythrocyte mean corpuscular volume (MCV)Ordered By: Gabi Lieberman on 05-07-2023 MCV (RBC) [Entitic vol] 92.4 fL 80-94 [facility] Erythrocyte distribution wid th ratioOrdered By: Gabi Lieberman on 05-07-2023 Erythrocyte distribution width (RBC) [Ratio] 14.5 % 11.6-14.6 [facility] Erythrocyte distribution wid th standard deviationOrdered By: Gabi Lieberman on 05-07-2023 Erythrocyte distribution width (RBC) [Entitic vol] 49.1 fL 35.1-43.9 [facility] Hematocrit Auto (Bld) [Volum e fraction]Ordered By: Gabi Lieberman on 05-07-2023 Hematocrit (Bld) [Volume fraction] 37.9 % 40-54 [facility] Immature granulocytes/100 WB C Auto (Bld)Ordered By: Gabi Lieberman on 05-07-2023 Immature granulocytes/100 WBC (Bld) 0.700 % 0.0-0.9 [facility] Comment on above: IG% - Immature Granu locytes (promyelocytes, myelocytes and metamyelocytes) > 1% indicates that a LEFT SHIFT is Present. Laboratory - Chemistry and C hemistry - challengeOrdered By: Gabi Lieberman on 05-07-2023 CO2 [Moles/Vol] 22.0 mmol/L 21.0-32.0 [facility] Natriuretic peptide B (Bld) [Mass/Vol] 40.9 pg/mL 0-100 [facility] Urea nitrogen/Creatinine [Mass ratio] 9.0 mg/mg 10-20 [facility] Laboratory - Hematology and Cell countsOrdered By: Gabi Lieberman on 05-07-2023 MCH (RBC) [Entitic mass] 27.1 pg 27.0-32.0 [facility] MCHC (RBC) [Mass/Vol] 29.3 g/dL 32-36 [facility] Nucleated RBC/100 WBC (Bld) [Ratio] 0 % 0-5 [facility] Platelets (Bld) [#/Vol] 226 10*3/uL 150-450 [facility] No Panel InformationOrdered By: Gabi Lieberman on 05-07-2023 Estimated GFR (MDRD) Amer 39 mL/min >60 [facility] Comment on above: GFR Calc Estimated GFR (MDRD) Non-Af Amer 32 mL/min >60 [facility] Comment on above: Non- GFR Calc Platelet mean volume Shivam-Ec ker (Bld) [Entitic vol]Ordered By: Gabi Lieberman on 05-07-2023 Platelet mean volume (Bld) [Entitic vol] 9.5 fL 6.2-12.0 [facility] RBC Auto (Bld) [#/Vol]Ordere d By: Gabi Lieberman on 05-07-2023 RBC (Bld) [#/Vol] 4.10 10*6/uL 4.6-6.2 [facility] Serum or plasma calcium caity urement (mass/volume)Ordered By: Gabi Lieberman on 05-07-2023 Calcium [Mass/Vol] 9.0 mg/dL 8.5-10.[address] [facility] Serum or plasma creatinine m easurement (mass/volume)Ordered By: Gabi Lieberman on 05-07-2023 Creatinine [Mass/Vol] 2.21 mg/dL 0.70-1.30 [facility] Comment on above: The validity of the calculated GFR & GFRAA in patients over 70 years has not been determined. Clinical correlation is essential. Serum or plasma thyroid stim ulating hormone (TSH) measurement (units/volume)Ordered By: Gabi Lieberman on 05-07-2023 TSH Qn 1.24 uIU/mL 0.358-3.74 [facility] Serum or plasma urea nitroge n measurement (mass/volume)Ordered By: Gabi Lieberman on 05-07-2023 Urea nitrogen [Mass/Vol] 20 mg/dL 7-18 [facility] Thin prep Papanicolaou smear with manual screeningOrdered By: Gabi Lieberman on 05-07-2023 Thin prep Papanicolaou smear with manual screening 4 5-15 [facility] Basophil percentageOrdered B y: Cesar Reyna on 04-25-2023 Basophil percentage 0-5 SEEN /hpf 0-5 [facility] Bilirubin [Mass/Vol] 0.50 mg/dL 0.20-1.00 [facility] Comment on above: For patients on eltr ombopag therapy, use of Dimension [place] TBIL is not recommended. Chloride [Moles/Vol] 115 mmol/L 98-107 [facility] Glucose [Mass/Vol] 87 mg/dL 74-[address] [facility] Potassium [Moles/Vol] 4.1 mmol/L 3.5-5.1 [facility] Protein [Mass/Vol] 5.6 g/dL 6.4-8.[address] [facility] Sodium [Moles/Vol] 140 mmol/L 136-[address] [facility] Bilirubin Test strip Ql (U)O rdered By: Cesar Reyna on 04-25-2023 Bilirubin Ql (U) Negative Negative [facility] Ketones Test strip Ql (U)Ord ered By: Cesar Reyna on 04-25-2023 Ketones Ql (U) Negative Negative [facility] Laboratory - Chemistry and C hemistry - challengeOrdered By: Cesar Reyna on 04-25-2023 Albumin/Globulin [Mass ratio] 1.1 {ratio} 0.9-2.4 [facility] ALP [Catalytic activity/Vol] 156 U/L 45-117 [facility] ALT [Catalytic activity/Vol] 42 U/L 16-61 [facility] CO2 [Moles/Vol] 24.0 mmol/L 21.0-32.0 [facility] Globulin (S) [Mass/Vol] 2.7 g/dL 2.2-4.2 [facility] Urea nitrogen/Creatinine [Mass ratio] 8.8 mg/mg 10-20 [facility] Mucus LM Ql (Urine sed)Order ed By: Cesar Reyna on 04-25-2023 Mucus Ql (Urine sed) 0 SEEN /hpf [facility] Nitrite Test strip Ql (U)Ord ered By: Cesar Reyna on 04-25-2023 Nitrite Ql (U) Negative Negative [facility] No Panel InformationOrdered By: Cesar Reyna on 04-25-2023 Urine RBC 10-25 SEEN /hpf 0-5 [facility] Estimated Creatinine Clearance Calc 49.11 ml/min [facility] Estimated GFR (MDRD) Amer 40 mL/min >60 [facility] Comment on above: GFR Calc Estimated GFR (MDRD) Non-Af Amer 33 mL/min >60 [facility] Comment on above: Non- GFR Calc Protein Test strip Ql (U)Ord ered By: Cesar Reyna on 04-25-2023 Protein Ql (U) 100 mg/dl Negative [facility] Serum or plasma calcium caity urement (mass/volume)Ordered By: Cesar Reyna on 04-25-2023 Calcium [Mass/Vol] 8.8 mg/dL 8.5-10.[address] [facility] Serum or plasma creatinine m easurement (mass/volume)Ordered By: Cesar Reyna on 04-25-2023 Creatinine [Mass/Vol] 2.15 mg/dL 0.70-1.30 [facility] Comment on above: The validity of the calculated GFR & GFRAA in patients over 70 years has not been determined. Clinical correlation is essential. Serum or plasma urea nitroge n measurement (mass/volume)Ordered By: Cesar Reyna on 04-25-2023 Urea nitrogen [Mass/Vol] 19 mg/dL 7-18 [facility] Squamous epithelial cells de tection in urine sediment by light microscopyOrdered By: Cesar Reyna on 04-25-2023 Epithelial cells.squamous LM Ql (Urine sed) 0 SEEN /hpf 0-5 [facility] Thin prep Papanicolaou smear with manual screeningOrdered By: Cesar Reyna on 04-25-2023 Thin prep Papanicolaou smear with manual screening 2.9 g/dL 3.2-5.0 [facility] Thin prep Papanicolaou smear with manual screening 22 U/L 15-37 [facility] Thin prep Papanicolaou smear with manual screening 1 5-15 [facility] Urine blood detectionOrdered By: Cesar Reyna on 04-25-2023 RBC Ql (U) 150 /ul Negative [facility] Urine clarityOrdered By: Cesar Renya on 04-25-2023 Clarity (U) Clear Clear [facility] Urine color determinationOrd ered By: Cesar Reyna on 04-25-2023 Color (U) Yellow Yellow [facility] Urine glucose detectionOrder ed By: Cesar Reyna on 04-25-2023 Glucose Ql (U) Normal mg/dl Normal [facility] Urine leukocyte esterase det ection by dipstickOrdered By: Cesar Reyna on 04-25-2023 Leukocyte esterase Test strip Ql (U) 25 /ul Negative [facility] Urine pHOrdered By: Cesar pedroza on 04-25-2023 pH (U) 6.5 [pH] 5.0 - 8.0 [facility] Urine sediment bacteria coun t by microscopy (number/high power field)Ordered By: Cesar Reyna on 04-25-2023 Bacteria LM.HPF (Urine sed) [#/Area] 0 /[HPF] None Seen [facility] Urine specific gravity measu rementOrdered By: Cesar Reyna on 04-25-2023 Specific gravity (U) [Rel density] 1.015 1.002-1.03 0 [facility] Urine urobilinogen measureme ntOrdered By: Cesar Reyna on 04-25-2023 Urobilinogen Ql (U) Normal mg/dl Normal [facility] Laboratory - Hematology and Cell countson 02-14-2023 HbA1c (Bld) [Mass fraction] 6.4 % 4.2-6.3 [facility] XR Hand - left PA and Latera l and Obliqueon 07-25-2022 IMPRESSION: Nondisplaced fracture of the base of the left fourth metacarpal Clinical Training Specialist: KYLER Transcribe Date/Time: Jul 25 2022 3:49P Dictated by : NITO MELENDEZ MD This examination was interpreted and the report reviewed and electronically signed by: NITO MELENDEZ MD on Jul 25 2022 3:50PM [facility] DIVISION OF RADIOLOGY * * *Final Report* * * DATE OF EXAM: Jul 24 2022 3:50PM WOX 5345 - XR HAND 3V PA/LAT/OBL LT / PROCEDURE REASON: Left hand pain * * * * Physician Interpretation * * * * EXAMINATION: XR HAND 3V PA/LAT/OBL LT CLINICAL HISTORY: Left hand pain Technique: XR HAND 3V PA/LAT/OBL LT -- LEFT with 3 views on 3 images Comparison: None RESULT: Nondisplaced fracture of the base of the left fourth metacarpal. No dislocation. Joint spaces are maintained. Vascular calcifications. DIVISION OF RADIOLOGY Provider, [facility] - 07/25/2022 * * *Final Report* * * DATE OF EXAM: Jul 24 2022 3:50PM WOX 5345 - XR HAND 3V PA/LAT/OBL LT / PROCEDURE REASON: Left hand pain * * * * Physician Interpretation * * * * EXAMINATION: XR HAND 3V PA/LAT/OBL LT CLINICAL HISTORY: Left hand pain Technique: XR HAND 3V PA/LAT/OBL LT -- LEFT with 3 views on 3 images Comparison: None RESULT: Nondisplaced fracture of the base of the left fourth metacarpal. No dislocation. Joint spaces are maintained. Vascular calcifications. IMPRESSION IMPRESSION: Nondisplaced fracture of the base of the left fourth metacarpal Clinical Training Specialist: PSCB Transcribe Date/Time: Jul 25 2022 3:49P Dictated by : NITO MELENDEZ MD This examination was interpreted and the report reviewed and electronically signed by: NITO MELENDEZ MD on Jul 25 2022 3:50PM EST [facility] XR Hand - left PA and Latera l and ObliqueOrdered By: Ccf Provider on 07-25-2022 [facility] XR HAND GENERAL 3V PA/LAT/OB L LEFTon 07-24-2022 [facility] XR Hand - left PA and Latera l and Obliqueon 07-24-2022 Radiology Study observation (narrative) [facility] Basophil percentageOrdered B y: Dr. Low on 04-28-2022 Glucose [Mass/Vol] 82 mg/dL 74-[address] [facility] No Panel InformationOrdered By: Dr. Low on 04-28-2022 C-Peptide < 0.1 ng/mL 1.1-4.4 [facility] Comment on above: C-Peptide reference interval is for fasting patients.Performed at: [facility] [place] [id number] Director: Chano Le PhD, Phone: [phone] Laboratory - Hematology and Cell countson 02-22-2022 HbA1c (Bld) [Mass fraction] 6.2 % [facility] Absolute lymphocyte countOrd ered By: Dr. Vega on 01-30-2022 Lymphocytes Auto (Unsp spec) [#/Vol] 0.70 10*3/uL 0.83-4.51 [facility] Basophil percentageOrdered B y: Dr. Vega on 01-30-2022 Basophils/100 WBC (Bld) 0.6 % 0-1 [facility] Chloride [Moles/Vol] 108 mmol/L 98-107 [facility] Eosinophils/100 WBC (Bld) 1.4 % 0-5 [facility] Glucose [Mass/Vol] 220 mg/dL 74-[address] [facility] Comment on above: Glucose result great er than or equal to 200 mg/dLsuggests DIABETES MELLITUS per A.D.A. criteria. Neutrophils (Bld) [#/Vol] 2.1 10*3/uL 2.0-7.7 [facility] Neutrophils/100 WBC (Bld) 58.7 % 47-70 [facility] Potassium [Moles/Vol] 3.9 mmol/L 3.5-5.1 [facility] Sodium [Moles/Vol] 137 mmol/L 136-[address] [facility] WBC (Bld) [#/Vol] 3.6 10*3/uL 4.4-11.[address] [facility] Blood erythrocytes count (nu mber/volume)Ordered By: Dr. Vega on 01-30-2022 RBC (Bld) [#/Vol] 4.19 10*6/uL 4.6-6.2 [facility] Blood hemoglobin measurement (mass/volume)Ordered By: Dr. Vega on 01-30-2022 Hemoglobin (Bld) [Mass/Vol] 11.9 g/dL 13.0-16.5 [facility] Blood lymphocytes/100 leukoc ytesOrdered By: Dr. Vega on 01-30-2022 Lymphocytes/100 WBC (Bld) 19.7 % 19-41 [facility] Blood monocytes/100 leukocyt esOrdered By: Dr. Vega on 01-30-2022 Monocytes/100 WBC (Bld) 18.8 % 0-10 [facility] Blood platelet mean volumeOr dered By: Dr. Vega on 01-30-2022 Platelet mean volume (Bld) [Entitic vol] 10.2 fL 6.2-12.0 [facility] Clostridium difficile detect ion by polymerase chain reactionOrdered By: Dr. Vega on 01-30-2022 C. difficile DNA BRANDON+probe Ql (Unsp spec) [facility] Determination of erythrocyte mean corpuscular volume (MCV)Ordered By: Dr. Vega on 01-30-2022 MCV (RBC) [Entitic vol] 86.9 fL 80-94 [facility] EP PanelOrdered By: Dr. Vega o n 01-30-2022 Gastrointestinal pathogens panel BRANDON+probe (Stl) [facility] Hematocrit Auto (Bld) [Volum e fraction]Ordered By: Dr. Vega on 01-30-2022 Hematocrit (Bld) [Volume fraction] 36.4 % 40-54 [facility] Laboratory - Chemistry and C hemistry - challengeOrdered By: Dr. Vega on 01-30-2022 CO2 [Moles/Vol] 21.0 mmol/L 21.0-32.0 [facility] Urea nitrogen/Creatinine [Mass ratio] 10.4 mg/mg 10-20 [facility] Laboratory - Hematology and Cell countsOrdered By: Dr. Vega on 01-30-2022 Erythrocyte distribution width (RBC) [Entitic vol] 45.2 fL 35.1-43.9 [facility] Erythrocyte distribution width (RBC) [Ratio] 14.3 % 11.6-14.6 [facility] Immature granulocytes/100 WBC (Bld) 0.800 % 0.0-0.9 [facility] Comment on above: IG% - Immature Granu locytes (promyelocytes, myelocytes and metamyelocytes) > 1% indicates that a LEFT SHIFT is Present. MCH (RBC) [Entitic mass] 28.4 pg 27.0-32.0 [facility] Nucleated RBC/100 WBC (Bld) [Ratio] 0 % 0-5 [facility] MCHC Auto (RBC) [Mass/Vol]Or dered By: Dr. Vega on 01-30-2022 MCHC (RBC) [Mass/Vol] 32.7 g/dL 32-36 [facility] No Panel InformationOrdered By: Dr. Vega on 01-30-2022 Estimated Creatinine Clearance Calc 34.22 ml/min [facility] Estimated GFR (MDRD) Amer 36 mL/min >60 [facility] Comment on above: GFR Calc Estimated GFR (MDRD) Non-Af Amer 30 mL/min >60 [facility] Comment on above: Non- GFR Calc Platelets bldOrdered By: Dr. Vega on 01-30-2022 Platelets (Bld) [#/Vol] 148 10*3/uL 150-450 [facility] Serum or plasma calcium caity urement (mass/volume)Ordered By: Dr. Vega on 01-30-2022 Calcium [Mass/Vol] 9.6 mg/dL 8.5-10.[address] [facility] Serum or plasma creatinine m easurement (mass/volume)Ordered By: Dr. Vega on 01-30-2022 Creatinine [Mass/Vol] 2.40 mg/dL 0.70-1.30 [facility] Comment on above: The validity of the calculated GFR & GFRAA in patients over 70 years has not been determined. Clinical correlation is essential. Serum or plasma urea nitroge n measurement (mass/volume)Ordered By: Dr. Vega on 01-30-2022 Urea nitrogen [Mass/Vol] 25 mg/dL 7-18 [facility] Thin prep Papanicolaou smear with manual screeningOrdered By: Dr. Vega on 01-30-2022 Thin prep Papanicolaou smear with manual screening 8 5-15 [facility] Order Reconciliationon 01-12 Order Reconciliation Page 1 Discharge Reconciliation Document Reconciliation Type: Discharge requested on behalf of George Pacheco (Physician) done by George Pacheco) Discharge - Reconciliation: 12-Jan-2022 07:13 by: George Pacheco) Home Medications EnteredHOME MEDICATIONS AT DISCHARGE DateReconciliation Comment/ Additional Information aspirin 81 mg oral delayed release capsule 1 cap(s) orally once a day 10-Jan-2022 14:31 aspirin 81 mg oral delayed release capsule 1 cap(s) orally once a day 10-Jan-2022 14:31 aspirin 81 mg oral delayed release capsule is continued as aspirin 81 mg oral delayed release capsule Bactrim DS 800 mg-160 mg oral tablet 1 tab(s) orally every other day 10-Jan-2022 14:31 Bactrim DS 800 mg-160 mg oral tablet 1 tab(s) orally every other day 10-Jan-2022 14:31 Bactrim DS 800 mg-160 mg oral tablet is continued as Bactrim DS 800 mg-160 mg oral tablet CellCept 250 mg oral capsule 4 cap(s) orally 2 times a day 10-Jan-2022 14:30 CellCept 250 mg oral capsule 4 cap(s) orally 2 times a day 10-Jan-2022 14:30 CellCept 250 mg oral capsule is continued as CellCept 250 mg oral capsule Coreg 12.5 mg oral tablet 1 tab(s) orally 2 times a day 10-Jan-2022 14:30 Coreg 12.5 mg oral tablet 1 tab(s) orally 2 times a day 10-Jan-2022 14:30 Coreg 12.5 mg oral tablet is continued as Coreg 12.5 mg oral tablet Flonase 50 mcg/inh nasal spray 2 spray(s) nasal once a day 10-Jan-2022 14:31 Flonase 50 mcg/inh nasal spray 2 spray(s) nasal once a day 10-Jan-2022 14:31 Flonase 50 mcg/inh nasal spray is continued as Flonase 50 mcg/inh nasal spray insulin pump 10-Jan-2022 14:29 insulin pump 10-Jan-2022 14:29 insulin pump is continued as insulin pump Lipitor 40 mg oral tablet 1 tab(s) orally once a day 10-Jan-2022 14:29 Lipitor 40 mg oral tablet 1 tab(s) orally once a day 10-Jan-2022 14:29 Lipitor 40 mg oral tablet is continued as Lipitor 40 mg oral tablet Pepcid 20 mg oral tablet 1 tab(s) orally 2 times a day 10-Jan-2022 14:30 Pepcid 20 mg oral tablet 1 tab(s) orally 2 times a day 10-Jan-2022 14:30 Pepcid 20 mg oral tablet is continued as Pepcid 20 mg oral tablet Plavix 75 mg oral tablet 1 tab(s) orally once a day 10-Jan-2022 14:31 Plavix 75 mg oral tablet 1 tab(s) orally once a day 10-Jan-2022 14:31 Plavix 75 mg oral tablet is continued as Plavix 75 mg oral tablet Proventil HFA 90 mcg/inh inhalation aerosol 2 puff(s) inhaled every 6 hours, As Needed - for shortness of breath 10-Jan-2022 14:30 Proventil HFA 90 mcg/inh inhalation aerosol 2 puff(s) inhaled every 6 hours, As Needed - for shortness of breath 10-Jan-2022 14:30 Proventil HFA 90 mcg/inh inhalation aerosol is continued as Proventil HFA 90 mcg/inh inhalation aerosol Rapamune 0.5 mg oral tablet 2 tab(s) orally once a day 10-Jan-2022 14:30 Rapamune 0.5 mg oral tablet 2 tab(s) orally once a day 10-Jan-2022 14:30 Rapamune 0.5 mg oral tablet is continued as Rapamune 0.5 mg oral tablet Current OrdersDateHOME MEDICATIONS AT DISCHARGE DateReconciliation Comment/ Additional Information Ketorolac 0.5% Ophthalmic. Solution (ACULAR)DOSE = 1 drop(s) Right Eye Every 10 MinutesStop After 4 Doses 05-Jan-2022 08:19 Ketorolac 0.5% Ophthalmic. is not required Lactated Ringers Infusion IV Bag Volume = 1,000 mL Run at: 100 mL/hr IntraVenous 11-Jan-2022 08:58 Lactated Ringers Infusion is not required Midazolam Injectable (VERSED)DOSE = 2 mg IntraVenous Push Once 11-Jan-2022 08:58 Midazolam Injectable is not required Moxifloxacin 0.5% Ophthalmic. Solution (VIGAMOX)DOSE = 1 mL Right Eye OnceClinician Notes: To be administered by surgeon 05-Jan-2022 08:19 Moxifloxacin 0.5% Ophthalmic. is not required Ondansetron Injectable (ZOFRAN)DOSE = 4 mg IntraVenous Push Once 11-Jan-2022 08:58 Ondansetron Injectable is not required Povidone Iodine 5% Ophthalmic. Solution (BETADINE)DOSE = 2 drop(s) Right Eye OnceClinician Notes: Prep around operative eye and drop into eye 05-Jan-2022 08:19 Povidone Iodine 5% Ophthalmic. is not required prednisoLONE 1% Ophthalmic Suspension (PRED FORTE)DOSE = 1 drop(s) Right Eye OnceClinician Notes: Dose as directed 05-Jan-2022 08:19 prednisoLONE 1% Ophthalmic is not required Tetracaine 0.5% Ophthalmic. SolutionDOSE = 1 drop(s) Right Eye Once 05-Jan-2022 08:19 Tetracaine 0.5% Ophthalmic. is not required Home Medications Added During Discharge Reconciliation Additional Patient Instructions Follow printed discharge instructions Discharge Discharge Diagnosis< H40.1111 Primary open-angle glaucoma, right eye, mild stage Discharge Provider, George Pacheco Discharge Disposition : .Home Condition at Discharge: Satisfactory Discharge Communication Instructions for Nursing Only: Remove IV prior to discharge from hospital. Do not remove any midline, if present, without an order from the provider. Discharge Instructions - PHR After your discharge from the hospital, two Summary of Care Documents will be available online in (more content not included)... 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), center location, insurance information Prep Instructions Reviewedyes Instructed to Have No Fluids Aftermidnight How to be Addressedchris Spoken Language PreferredEnglish Source of Informationpatient Stated Reason for Admissionright TRABECulectomy Primary Contact Name and Numberself Medications Brought to Hospitalno General Health: Weight in kg113.5 kilogram(s) Weight in vle219.2 pound(s) Weight Methodactual (measured) Height in feet5 feet Height in pkhodn98 inch(es) Height in cm177.8 centimeter(s) Height Methodstated BMI (kg/m2)35.903 square meter Patient or Family Member Reaction to Anesthesiano previous reaction; no previous family member reaction Blood Avoidance/Restrictionsnone Previous Transfusion Reactionnot applicable Health Mgmt: Symptoms/Conditions Managed at [place] Barriers to Managing Healthnone Relationship/Environ: Lives Withspouse Living Arrangementshouse Resource/Environmental Concernsnone Anticipated Transition [place] Services Anticipated at Transitionnone Tobacco Use: Tobacco Useno Pre-op Checklist: Arrival [id number] Arrival Time06:45 Procedure Typeright eye trabeculectomy NPOyes Last Food [id number] 21:00 Last Clear Fluid [id number] 21:00 NPO Commentsip of h2o with am meds ID Band On Patientpatient ID (name) Consent Signedyes H&P Completeyes, viewed with consent Anesthesia Assessment Completedpending EKG Performednot ordered Chest X-Ray Performednot ordered Preop Antibioticsnot ordered Beta-siddhartha Last Dose Date/[id number] 21:00 Beta-siddhartha Commentcoreg Bowel Prepno Surgical Site Infection Preventionyes Pain Scales and Managementyes Additional Information: Information Review: Allergies, Home Meds and Significant Events have been Reviewed and Verified with Patient/Familyyes Allergy, Intolerance, Adverse Event: Allergies: No Known Allergies: Active Problem List: Medical History: Hypercholesterolemia: Catalog Name: Pure hypercholesterolemia, unspecified Hypertension: Catalog Name: Essential (primary) hypertension CKD (chronic kidney disease): Catalog Name: Chronic kidney disease, unspecified Diabetes mellitus: Catalog Name: Type 2 diabetes mellitus without complications CAD (coronary artery disease): Catalog Name: Atherosclerotic heart disease of [place] coronary artery without angina pectoris CVA (cerebral vascular accident): Catalog Name: Cerebral infarction, unspecified, Description: no deficits OR (myocardial infarction): Catalog Name: Acute myocardial infarction, unspecified, Description: 2007 Surg History: History of eye surgery: Catalog Name: Other specified postprocedural states History of kidney transplant: Catalog Name: Kidney transplant status History of coronary artery stent placement: Catalog Name: Presence of coronary angioplasty implant and graft, Description: x3 Electronic Signatures: Irlanda Sue (RN) (Signed 12-Jan-2022 07:44) Authored: Initial Info, General Health, Health Mgmt, Relationship/Environ, Pre-op Checklist, Additional Information Meg Benites (RN) (Signed 10-Jan-2022 14:29) Authored: Initial Info, General Health, Tobacco Use, Additional Information Last Updated: 12-Jan-2022 07:44 by Irlanda Sue (RN) Normal [facility] HCV RNA BRANDON+probe DL = 5 iU/ mL QnOrdered By: Vania Garnett on 10-15-2021 HCV RNA BRANDON+probe Ql <1.08 <1.08 l og unit [facility] Interpretation and review of laboratory results Normal [facility] This test was perfor med using a real time PCR assay. The dynamic range for this assay is 12-100,000,000 IU/mL. [facility] HEPATITIS C BY PCR, QUANTOrd ered By: Vania Garnett on 10-15-2021 HCV RNA BRANDON+probe DL = 5 iU/mL Qn <12 <12 IU/mL [facility] ALLOSCREEN RECIPIENT (POST T X PRA)on 10-14-2021 AB SPECIFICITY CLASS COMMENT Antibody Specificity testing performed by [facility]. cPRA calculation based on identification of HLA antibody specificities at MFI >2000 and/or presence of CREG antibodies. [facility] Comment on above: Some of the reagents used for testing in the Clinical Histocompatibility Laboratory have yet to be approved by the FDA. Our certification by CLIA to perform high complexity tests allows us to use these reagents in the context of a stringent QC program, and obviates the need for FDA approval.Testing performed by the [facility] Clinical Histocompatibility Laboratory. [facility] number: [id number]. CLIA number: [id number], Director: Valentin Qureshi, PhD, D([facility]). ANTIBODY SPECIFICITY INTERPRETATION Detected [facility] CLASS I SPECIFICITIES Not detected [facility] CLASS II SPECIFICITIES Not detected [facility] HLA Ab (S) 0 % 0 [facility] MAGNESIUMon 10-13-2021 Interpretation and review of laboratory results Normal [facility] Magnesium [Mass/Vol] 2.2 mg/dL 1.6 - 2 .6 mg/dL [facility] Laboratory - Hematology and Cell countson 07-28-2021 HbA1c (Bld) [Mass fraction] 7.0 % [facility] Work Phone: Basic metabolic 2000 panelon 06-22-2021 Anion gap [Moles/Vol] 6 mmol/L Normal 6-18 [facility] Comment on above: Performed By: #### 2 4321-2 #### [facility] [address] [place] [address] Calcium [Mass/Vol] 10.2 mg/dL Normal 8.9-10.3 [facility] Comment on above: Performed By: #### 2 4321-2 #### [facility] ([facility]) LAB [address] [place] [address] Chloride [Moles/Vol] 111 mmol/L High 98-107 [facility] Comment on above: Performed By: #### 2 4321-2 #### [facility] [address] [place] [address] CO2 [Moles/Vol] 21 mmol/L Low 22-32 [facility] Comment on above: Performed By: #### 2 4321-2 #### [facility] [address] [place] [address] Creatinine [Mass/Vol] 2.17 mg/dL High 0.60-1.30 [facility] Comment on above: Performed By: #### 2 4321-2 #### [facility] [place] [facility] [address] [place] [address] GFR/1.73 sq M.predicted among non-blacks MDRD (S/P/Bld) [Vol rate/Area] 32 mL/min/{1.73_m2} Normal [facility] Comment on above: Performed By: #### 2 4321-2 #### [facility] [place] [facility] [address] [place] [address] Glucose [Mass/Vol] 96 mg/dL Normal 70-99 [facility] Comment on above: Performed By: #### 2 4321-2 #### [facility] [place] [facility] [address] [place] [address] Potassium [Moles/Vol] 4.1 mmol/L Normal 3.6-5.1 [facility] Comment on above: Performed By: #### 2 4321-2 #### [facility] [place] [facility] [address] [place] [address] Sodium [Moles/Vol] 138 mmol/L Normal 136-145 [facility] Comment on above: Performed By: #### 2 4321-2 #### [facility] [place] [facility] [address] [place] [address] Urea nitrogen [Mass/Vol] 39 mg/dL High 8-20 [facility] Comment on above: Performed By: #### 2 4321-2 #### [facility] [place] [facility] [address] [place] [address] Urea nitrogen/Creatinine [Mass ratio] 18.0 mg/mg Normal 12.0-20.0 [facility] Comment on above: Performed By: #### 2 4321-2 #### [facility] [place] [facility] [address] [place] [address] Hemogram and platelets WO di fferential panel (Bld)on 06-22-2021 Erythrocyte distribution width (RBC) [Ratio] 14.8 % Normal 11.0-14.8 [facility] Comment on above: Performed By: #### 2 4317-0 #### [facility] [place] [facility] [address] [place] [address] Hematocrit (Bld) [Volume fraction] 33.3 % Low 39.0-49.0 [facility] Comment on above: Performed By: #### 2 7-0 #### [facility] [place] ([facility]) LAB [address] [place] [address] Hemoglobin (Bld) [Mass/Vol] 11.1 g/dL Low 13.5-17.5 [facility] Comment on above: Performed By: #### 2 4316-0 #### [facility] ([facility]) LAB [address] [place] [address] MCH 31.4 pcg Normal 27.0-34.0 [facility] Comment on above: Performed By: #### 2 4316-0 #### [facility] ([facility]) LAB [address] [place] [address] MCHC (RBC) [Mass/Vol] 33.4 g/dL Normal 32.0-36.0 [facility] Comment on above: Performed By: #### 2 4316-0 #### [facility] [facility]) LAB [address] [place] [id number] MCV (RBC) [Entitic vol] 94.0 fL Normal 80.0-97.0 [facility] Comment on above: Performed By: #### 2 7-0 #### [facility] ([facility]) LAB [address] [place] [id number] Platelet mean volume (Bld) [Entitic vol] 9.7 fL Normal 6.2-12.1 [facility] Comment on above: Performed By: #### 2 7-0 #### [facility] ([facility]) LAB [address] [place] [address] 11414 Platelets (Bld) [#/Vol] 163 10*3/uL Normal 142-424 [facility] Comment on above: Performed By: #### 2 7-0 #### [facility] ([facility]) LAB [address] [place] [address] RBC (Bld) [#/Vol] 3.54 10*6/uL Low 4.30-5.70 [facility] Comment on above: Performed By: #### 2 4317-0 #### [facility] ([facility]) LAB [address] [place] [address] WBC (Bld) [#/Vol] 6.3 10*3/uL Normal 4.6-10.2 [facility] Comment on above: Performed By: #### 2 4317-0 #### [facility] [address] [place] [address] BASIC METABOLIC PANELon 06-01 Anion gap [Moles/Vol] 11 mmol/L 7 - 17 mmol/L [facility] Calcium [Mass/Vol] 9.9 mg/dL 8.6 - 10. 5 mg/dL [facility] Chloride [Moles/Vol] 110 mmol/L High 98 - 10 8 mmol/L [facility] CO2 [Moles/Vol] 19 mmol/L Low 21 - 31 mmol/L [facility] Creatinine [Mass/Vol] 2.51 mg/dL High 0.70 - 1.30 mg/dL [facility] GFR/1.73 sq M.predicted CKD-EPI (S/P/Bld) [Vol rate/Area] 29 Low >=60 mL/min/1.7 3m2 [facility] Comment on above: Reported eGFR is bas ed on the CKD-EPI 2020 equation using creatinine, age, and sex. Glucose [Mass/Vol] 199 mg/dL High 70 - 99 mg/dL [facility] Interpretation and review of laboratory results Abnormal [facility] Osmolality Calc [Osmolality] 302 [facility] Potassium [Moles/Vol] 4.5 mmol/L 3.5 - 5.0 mmol/L [facility] Sodium [Moles/Vol] 135 mmol/L 135 - 145 mmol/L [facility] Urea nitrogen [Mass/Vol] 45 mg/dL High 7 - 25 mg/dL [facility] Urea nitrogen/Creatinine [Mass ratio] 18 mg/mg [facility] CBC,PLATELETSon 06-21-2021 Erythrocyte distribution width (RBC) [Ratio] 13.6 % 10.9 - 14.3 % [facility] Hematocrit (Bld) [Volume fraction] 34.8 % Low 39.6 - 48.8 % [facility] Hemoglobin (Bld) [Mass/Vol] 10.7 g/dL Low 13.4 - 16.8 g/dL [facility] Interpretation and review of laboratory results Abnormal [facility] MCH (RBC) [Entitic mass] 30.0 pg 26.1 - 33.3 pg [facility] MCHC (RBC) [Mass/Vol] 30.7 g/dL Low 31.9 - 36.5 g/dL [facility] MCV (RBC) [Entitic vol] 97.5 fL High 79.0 - 94.5 fL [facility] Platelet mean volume (Bld) [Entitic vol] 11.5 fL 8.7 - 12.3 fL [facility] Platelets (Bld) [#/Vol] 152 10*3/uL 146 - 337 K/uL [facility] RBC (Bld) [#/Vol] 3.57 10*6/uL Low [facility] WBC (Bld) [#/Vol] 7.16 10*3/uL 3.73 - 10.10 K/uL [facility] EVEROLIMUS, TROUGH (PRE DRUG LEVEL)on 06-21-2021 Everolimus trough (P) [Mass/Vol] 4.8 ng/mL [facility] No therapeutic range established for this drug. Test results should be integrated into the clinical context for interpretation. Method performed is a particle enhanced turbidimetric immunoassay on the [employer] [id number]. [facility] GLUCOSE POCon 06-21-2021 Glucose [Mass/Vol] 175 mg/dL High 70 - 99 mg/dL [facility] Interpretation and review of laboratory results Abnormal [facility] Poc Sample Type CAPBL [facility] Test performed at ad dress of the patient encounter. [facility] Glucose [Mass/Vol] 245 mg/dL High 70 - 99 mg/dL [facility] Interpretation and review of laboratory results Abnormal [facility] Poc Sample Type CAPBL [facility] Test performed at ad dress of the patient encounter. [facility] Glucose [Mass/Vol] 100 mg/dL High 70 - 99 mg/dL [facility] Interpretation and review of laboratory results Abnormal [facility] Poc Sample Type CAPBL [facility] Test performed at ad dress of the patient encounter. [facility] Glucose [Mass/Vol] 33 mg/dL Critically low 70 - 99 mg/dL [facility] Glucose [Mass/Vol] 50 mg/dL Low 70 - 99 mg/dL [facility] MAGNESIUMon 06-21-2021 Interpretation and review of laboratory results Normal [facility] Magnesium [Mass/Vol] 1.8 mg/dL 1.6 - 2 .6 mg/dL [facility] No Panel Informationon 06-21 [facility] Interpretation and review of laboratory results Abnormal [facility] Poc Sample Type CAPBL [facility] Test performed at ad dress of the patient encounter. [facility] BASIC METABOLIC PANELon 06-01 Anion gap [Moles/Vol] 13 mmol/L 7 - 17 mmol/L [facility] Calcium [Mass/Vol] 10.3 mg/dL 8.6 - 10. 5 mg/dL [facility] Chloride [Moles/Vol] 111 mmol/L High 98 - 10 8 mmol/L [facility] CO2 [Moles/Vol] 19 mmol/L Low 21 - 31 mmol/L [facility] Creatinine [Mass/Vol] 2.65 mg/dL High 0.70 - 1.30 mg/dL [facility] GFR/1.73 sq M.predicted CKD-EPI (S/P/Bld) [Vol rate/Area] 27 Low >=60 mL/min/1.7 3m2 [facility] Comment on above: Reported eGFR is bas ed on the CKD-EPI 2020 equation using creatinine, age, and sex. Glucose [Mass/Vol] 69 mg/dL Low 70 - 99 mg/dL [facility] Interpretation and review of laboratory results Abnormal [facility] Osmolality Calc [Osmolality] 300 [facility] Potassium [Moles/Vol] 4.3 mmol/L 3.5 - 5.0 mmol/L [facility] Sodium [Moles/Vol] 139 mmol/L 135 - 145 mmol/L [facility] Urea nitrogen [Mass/Vol] 43 mg/dL High 7 - 25 mg/dL [facility] Urea nitrogen/Creatinine [Mass ratio] 16 mg/mg [facility] CBC,PLATELETSon 06-20-2021 Erythrocyte distribution width (RBC) [Ratio] 13.9 % 10.9 - 14.3 % [facility] Hematocrit (Bld) [Volume fraction] 36.5 % Low 39.6 - 48.8 % [facility] Hemoglobin (Bld) [Mass/Vol] 11.5 g/dL Low 13.4 - 16.8 g/dL [facility] Interpretation and review of laboratory results Abnormal [facility] MCH (RBC) [Entitic mass] 30.7 pg 26.1 - 33.3 pg [facility] MCHC (RBC) [Mass/Vol] 31.5 g/dL Low 31.9 - 36.5 g/dL [facility] MCV (RBC) [Entitic vol] 97.3 fL High 79.0 - 94.5 fL [facility] Platelet mean volume (Bld) [Entitic vol] 11.5 fL 8.7 - 12.3 fL [facility] Platelets (Bld) [#/Vol] 154 10*3/uL 146 - 337 K/uL [facility] RBC (Bld) [#/Vol] 3.75 10*6/uL Low [facility] WBC (Bld) [#/Vol] 7.45 10*3/uL 3.73 - 10.10 K/uL [facility] EVEROLIMUS, TROUGH (PRE DRUG LEVEL)Ordered By: Shivani Valentin on 06-20-2021 Everolimus trough (P) [Mass/Vol] 2.4 ng/mL [facility] EVEROLIMUS, TROUGH (PRE DRUG LEVEL)on 06-20-2021 Everolimus trough (P) [Mass/Vol] 3.5 ng/mL [facility] GLUCOSE POCon 06-20-2021 Glucose [Mass/Vol] 121 mg/dL High 70 - 99 mg/dL [facility] Interpretation and review of laboratory results Abnormal [facility] Poc Sample Type CAPBL [facility] Test performed at ad dress of the patient encounter. [facility] Glucose [Mass/Vol] 176 mg/dL High 70 - 99 mg/dL [facility] Interpretation and review of laboratory results Abnormal [facility] Poc Sample Type CAPBL [facility] Test performed at ad dress of the patient encounter. [facility] Glucose [Mass/Vol] 230 mg/dL High 70 - 99 mg/dL [facility] Interpretation and review of laboratory results Abnormal [facility] Poc Sample Type CAPBL [facility] Test performed at ad dress of the patient encounter. [facility] Glucose [Mass/Vol] 91 mg/dL 70 - 99 mg/dL [facility] Poc Sample Type CAPBL [facility] Test performed at ad dress of the patient encounter. [facility] MAGNESIUMon 06-20-2021 Interpretation and review of laboratory results Normal [facility] Magnesium [Mass/Vol] 1.7 mg/dL 1.6 - 2 .6 mg/dL [facility] No Panel InformationOrdered By: Shivani Valentin on 06-20-2021 No therapeutic range established for this drug. Test results should be integrated into the clinical context for interpretation. Method performed is a particle enhanced turbidimetric immunoassay on the [employer] [id number]. [facility] No Panel Informationon 06-20 [facility] BASIC METABOLIC PANELon 06-01 Anion gap [Moles/Vol] 13 mmol/L 7 - 17 mmol/L [facility] Calcium [Mass/Vol] 10.3 mg/dL 8.6 - 10. 5 mg/dL [facility] Chloride [Moles/Vol] 110 mmol/L High 98 - 10 8 mmol/L [facility] CO2 [Moles/Vol] 19 mmol/L Low 21 - 31 mmol/L [facility] Creatinine [Mass/Vol] 2.97 mg/dL High 0.70 - 1.30 mg/dL [facility] GFR/1.73 sq M.predicted CKD-EPI (S/P/Bld) [Vol rate/Area] 24 Low >=60 mL/min/1.7 3m2 [facility] Comment on above: Reported eGFR is bas ed on the CKD-EPI 2020 equation using creatinine, age, and sex. Glucose [Mass/Vol] 166 mg/dL High 70 - 99 mg/dL [facility] Interpretation and review of laboratory results Abnormal [facility] Osmolality Calc [Osmolality] 304 [facility] Potassium [Moles/Vol] 4.5 mmol/L 3.5 - 5.0 mmol/L [facility] Sodium [Moles/Vol] 137 mmol/L 135 - 145 mmol/L [facility] Urea nitrogen [Mass/Vol] 44 mg/dL High 7 - 25 mg/dL [facility] Urea nitrogen/Creatinine [Mass ratio] 15 mg/mg [facility] Bacteria identified Cx Nom ( Bld)on 06-19-2021 Bacteria identified Cx Nom (Unsp spec) NO GROWTH DAY 5 OF 5 [facility] Results may be compr omised due to volume of BACT\ALERT bottle below 8mLs. The optimal blood volume is 8-10 mls per aerobic/anaerobic blood culture bottle [facility] CBC,PLATELETSon 06-19-2021 Erythrocyte distribution width (RBC) [Ratio] 13.8 % 10.9 - 14.3 % [facility] Hematocrit (Bld) [Volume fraction] 34.9 % Low 39.6 - 48.8 % [facility] Hemoglobin (Bld) [Mass/Vol] 11.0 g/dL Low 13.4 - 16.8 g/dL [facility] Interpretation and review of laboratory results Abnormal [facility] MCH (RBC) [Entitic mass] 30.3 pg 26.1 - 33.3 pg [facility] MCHC (RBC) [Mass/Vol] 31.5 g/dL Low 31.9 - 36.5 g/dL [facility] MCV (RBC) [Entitic vol] 96.1 fL High 79.0 - 94.5 fL [facility] Platelet mean volume (Bld) [Entitic vol] 11.7 fL 8.7 - 12.3 fL [facility] Platelets (Bld) [#/Vol] 154 10*3/uL 146 - 337 K/uL [facility] RBC (Bld) [#/Vol] 3.63 10*6/uL Low [facility] WBC (Bld) [#/Vol] 8.08 10*3/uL 3.73 - 10.10 K/uL [facility] GLUCOSE POCon 06-19-2021 Glucose [Mass/Vol] 156 mg/dL High 70 - 99 mg/dL [facility] Interpretation and review of laboratory results Abnormal [facility] Poc Sample Type CAPBL [facility] Test performed at ad dress of the patient encounter. [facility] Glucose [Mass/Vol] 223 mg/dL High 70 - 99 mg/dL [facility] Glucose [Mass/Vol] 275 mg/dL High 70 - 99 mg/dL [facility] Glucose [Mass/Vol] 263 mg/dL High 70 - 99 mg/dL [facility] Interpretation and review of laboratory results Abnormal [facility] Poc Sample Type CAPBL [facility] Test performed at ad dress of the patient encounter. [facility] Glucose [Mass/Vol] 227 mg/dL High 70 - 99 mg/dL [facility] Interpretation and review of laboratory results Abnormal [facility] Poc Sample Type CAPBL [facility] Test performed at ad dress of the patient encounter. [facility] Glucose [Mass/Vol] 168 mg/dL High 70 - 99 mg/dL [facility] Interpretation and review of laboratory results Abnormal [facility] Poc Sample Type CAPBL [facility] Test performed at ad dress of the patient encounter. [facility] MAGNESIUMon 06-19-2021 Interpretation and review of laboratory results Normal [facility] Magnesium [Mass/Vol] 1.7 mg/dL 1.6 - 2 .6 mg/dL [facility] No Panel Informationon 06-19 Interpretation and review of laboratory results Abnormal [facility] Poc Sample Type CAPBL [facility] Test performed at ad dress of the patient encounter. [facility] BASIC METABOLIC PANELon 05-31 Anion gap [Moles/Vol] 13 mmol/L 7 - 17 mmol/L [facility] Calcium [Mass/Vol] 10.2 mg/dL 8.6 - 10. 5 mg/dL [facility] Chloride [Moles/Vol] 108 mmol/L 98 - 10 8 mmol/L [facility] CO2 [Moles/Vol] 17 mmol/L Low 21 - 31 mmol/L [facility] Creatinine [Mass/Vol] 3.10 mg/dL High 0.70 - 1.30 mg/dL [facility] GFR/1.73 sq M.predicted CKD-EPI (S/P/Bld) [Vol rate/Area] 22 Low >=60 mL/min/1.7 3m2 [facility] Comment on above: Reported eGFR is bas ed on the CKD-EPI 2020 equation using creatinine, age, and sex. Glucose [Mass/Vol] 299 mg/dL High 70 - 99 mg/dL [facility] Interpretation and review of laboratory results Abnormal [facility] Osmolality Calc [Osmolality] 306 High [facility] Potassium [Moles/Vol] 5.3 mmol/L High 3.5 - 5.0 mmol/L [facility] Sodium [Moles/Vol] 133 mmol/L Low 135 - 145 mmol/L [facility] Urea nitrogen [Mass/Vol] 43 mg/dL High 7 - 25 mg/dL [facility] Urea nitrogen/Creatinine [Mass ratio] 14 mg/mg [facility] CBC,PLATELETSon 06-18-2021 Erythrocyte distribution width (RBC) [Ratio] 13.4 % 10.9 - 14.3 % [facility] Hematocrit (Bld) [Volume fraction] 35.1 % Low 39.6 - 48.8 % [facility] Hemoglobin (Bld) [Mass/Vol] 11.1 g/dL Low 13.4 - 16.8 g/dL [facility] Interpretation and review of laboratory results Abnormal [facility] MCH (RBC) [Entitic mass] 30.9 pg 26.1 - 33.3 pg [facility] MCHC (RBC) [Mass/Vol] 31.6 g/dL Low 31.9 - 36.5 g/dL [facility] MCV (RBC) [Entitic vol] 97.8 fL High 79.0 - 94.5 fL [facility] Platelet mean volume (Bld) [Entitic vol] 11.6 fL 8.7 - 12.3 fL [facility] Platelets (Bld) [#/Vol] 151 10*3/uL 146 - 337 K/uL [facility] RBC (Bld) [#/Vol] 3.59 10*6/uL Low [facility] WBC (Bld) [#/Vol] 10.15 10*3/uL High 3.73 - 10.10 K[facility]L [facility] GLUCOSE POCon 06-18-2021 Glucose [Mass/Vol] 213 mg/dL High 70 - 99 mg/dL [facility] Interpretation and review of [facility] results Abnormal [facility] Poc Sample Type CAPBL [facility] Test performed at ad dress of the patient encounter. [facility] Glucose [Mass/Vol] 266 mg/dL High 70 - 99 mg/dL [facility] Interpretation and review of laboratory results Abnormal [facility] Sample [facility] Glucose [Mass/Vol] 272 mg/dL High 70 - 99 mg/dL [facility] Interpretation and review of laboratory results Abnormal [facility] Poc Sample Type CAPBL [facility] Test performed at ad dress of the patient encounter. [facility] Glucose [Mass/Vol] 284 mg/dL High 70 - 99 mg/dL [facility] Interpretation and review of laboratory results Abnormal [facility] Sample Type CAPBL [facility] Test performed at ad dress of the patient encounter. [facility] Glucose [Mass/Vol] 291 mg/dL High 70 - 99 mg/dL [facility] Interpretation and review of laboratory results Abnormal [facility] Poc Sample Type CAPBL [facility] Test performed at ad dress of the patient encounter. [facility] Glucose [Mass/Vol] 365 mg/dL High 70 - 99 mg/dL [facility] Interpretation and review of [facility] results Ab[facility] Poc Sample Type CAPBL [facility] Test performed at ad dress of the patient encounter. [facility] MAGNESIUMon 06-18-2021 Interpretation and review of laboratory results Normal [facility] Magnesium [Mass/Vol] 1.7 mg/dL 1.6 - 2 .6 mg/dL [facility] No Panel Informationon 06-18 [facility] BASIC METABOLIC PANELon 05-31 Anion gap [Moles/Vol] 11 mmol/L 7 - 17 mmol/L [facility] Calcium [Mass/Vol] 10.2 mg/dL 8.6 - 10. 5 mg/dL [facility] Chloride [Moles/Vol] 112 mmol/L High 98 - 10 8 mmol/L [facility] CO2 [Moles/Vol] 18 mmol/L Low 21 - 31 mmol/L [facility] Creatinine [Mass/Vol] 2.78 mg/dL High 0.70 - 1.30 mg/dL [facility] GFR/1.73 sq M.predicted CKD-EPI (S/P/Bld) [Vol rate/Area] 26 Low >=60 mL/min/1.7 3m2 [facility] Comment on above: Reported eGFR is bas ed on the CKD-EPI 2020 equation using creatinine, age, and sex. Glucose [Mass/Vol] 171 mg/dL High 70 - 99 mg/dL [facility] Interpretation and review of laboratory results Abnormal [facility] Osmolality Calc [Osmolality] 300 [facility] Potassium [Moles/Vol] 5.1 mmol/L High 3.5 - 5.0 mmol/L [facility] Sodium [Moles/Vol] 136 mmol/L 135 - 145 mmol/L [facility] Urea nitrogen [Mass/Vol] 35 mg/dL High 7 - 25 mg/dL [facility] Urea nitrogen/Creatinine [Mass ratio] 13 mg/mg [facility] CARDIAC RHYTHM (SCANNED)on 0 06-17-2021 [facility] CBC,PLATELETSon 06-17-2021 Erythrocyte distribution width (RBC) [Ratio] 13.8 % 10.9 - 14.3 % [facility] Hematocrit (Bld) [Volume fraction] 35.4 % Low 39.6 - 48.8 % [facility] Hemoglobin (Bld) [Mass/Vol] 11.2 g/dL Low 13.4 - 16.8 g/dL [facility] Interpretation and review of laboratory results Abnormal [facility] MCH (RBC) [Entitic mass] 31.0 pg 26.1 - 33.3 pg [facility] MCHC (RBC) [Mass/Vol] 31.6 g/dL Low 31.9 - 36.5 g/dL [facility] MCV (RBC) [Entitic vol] 98.1 fL High 79.0 - 94.5 fL [facility] Platelet mean volume (Bld) [Entitic vol] 11.6 fL 8.7 - 12.3 fL [facility] Platelets (Bld) [#/Vol] 164 10*3/uL 146 - 337 K/uL [facility] RBC (Bld) [#/Vol] 3.61 10*6/uL Low [facility] WBC (Bld) [#/Vol] 8.27 10*3/uL 3.73 - 10.10 K/uL [facility] GLUCOSE POCon 06-17-2021 Glucose [Mass/Vol] 425 mg/dL Critically high 70 - 9 9 mg/dL [facility] Comment on above: Notified RNread back Interpretation and review of laboratory results Abnormal [facility] Poc Sample Type CAPBL [facility] Test performed at ad dress of the patient encounter. [facility] Glucose [Mass/Vol] 439 mg/dL Critically high 70 - 9 9 mg/dL [facility] Interpretation and review of laboratory results Abnormal [facility] Poc Sample Type CAPBL [facility] Test performed at ad dress of the patient encounter. [facility] Glucose [Mass/Vol] 241 mg/dL High 70 - 99 mg/dL [facility] Interpretation and review of laboratory results Abnormal [facility] Poc Sample Type CAPBL [facility] Test performed at ad dress of the patient encounter. [facility] Glucose [Mass/Vol] 214 mg/dL High 70 - 99 mg/dL [facility] Interpretation and review of laboratory results Abnormal [facility] Poc Sample Type CAPBL [facility] Test performed at ad dress of the patient encounter. [facility] Glucose [Mass/Vol] 198 mg/dL High 70 - 99 mg/dL [facility] Interpretation and review of laboratory results Abnormal [facility] Poc Sample Type CAPBL [facility] Test performed at ad dress of the patient encounter. [facility] MAGNESIUMon 06-17-2021 Interpretation and review of laboratory results Normal [facility] Magnesium [Mass/Vol] 1.6 mg/dL 1.6 - 2 .6 mg/dL [facility] No Panel Informationon 06-17 [facility] PROTIME-INRon 06-17-2021 INR Coag (Bld) [Relative time] 1.0 {INR} [facility] Interpretation and review of laboratory results Normal [facility] PT Coag (PPP) [Time] 13.2 s [facility] TACROLIMUS LEVEL, TROUGH (TN E DRUG LEVEL)Ordered By: Lobito Byrne on 06-17-2021 Interpretation and review of laboratory results Normal [facility] Tacrolimus (Bld) [Mass/Vol] 9.4 ng/mL Bone Marrow Transplant : 4.0-12.0, Therapeuti c: 5.0-15.0 [facility] Method performed is a chemiluminescent microparticle immunoasssay on the [employer] i2000. The range is based on experience at [facility] and users should be aware that target concentrations vary widely depending on concomitant therapy, time post-transplant, and desired degree of immunosuppression. [facility] CMV BY PCR, QUANTITATIVE, BL OODOrdered By: Mayra Buenrostro on 06-16-2021 CMV DNA BRANDON+probe Qn (P) <50 <50 IU/mL [facility] Interpretation and review of laboratory results Normal [facility] This test was perfor med using a real time CMV PCR assay. The dynamic range for this assay is 50-156,000,000 IU/mL. Results should be interpreted in conjunction with other clinical and laboratory. [facility] EBV BY PCR, QUANTITATIVE,BLO ODOrdered By: Vania Garnett on 06-16-2021 EBV DNA BRANDON+probe (Unsp spec) [#/Vol] <1000 <1,000 IU/mL [facility] Interpretation and review of laboratory results Normal [facility] This test was perfor med using a real time PCR assay. The dynamic range for this assay is 1000-5,000,000 IU/mL. A result <1000 IU/mL does not rule out the presence of EBV DNA in quantities below the sensitivity of this assay. This test was developed and its performance characteristics determined by [facility]. It has not been cleared or approved by the FDA. The laboratory is regulated under CLIA as qualified to perform high-complexity testing. This test is used for clinical purposes. It should not be regarded as investigational or for research. [facility] GLUCOSE POCon 06-16-2021 Glucose [Mass/Vol] 118 mg/dL High 70 - 99 mg/dL [facility] Interpretation and review of laboratory results Abnormal [facility] Poc Sample Type CAPBL [facility] Test performed at ad dress of the patient encounter. [facility] Glucose [Mass/Vol] 186 mg/dL High 70 - 99 mg/dL [facility] Comment on above: Notified RNread back Interpretation and review of laboratory results Abnormal [facility] Poc Sample Type CAPBL [facility] Test performed at ad dress of the patient encounter. [facility] Glucose [Mass/Vol] 140 mg/dL High 70 - 99 mg/dL [facility] Interpretation and review of laboratory results Abnormal [facility] Poc Sample Type CAPBL [facility] Test performed at ad dress of the patient encounter. [facility] TACROLIMUS LEVEL, TROUGH (TN E DRUG LEVEL)on 06-16-2021 Interpretation and review of laboratory results Normal [facility] Tacrolimus (Bld) [Mass/Vol] 9.5 ng/mL Bone Marrow Transplant : 4.0-12.0, Therapeuti c: 5.0-15.0 [facility] Method performed is a chemiluminescent microparticle immunoasssay on the [employer] i2000. The range is based on experience at [facility] and users should be aware that target concentrations vary widely depending on concomitant therapy, time post-transplant, and desired degree of immunosuppression. [facility] EXTRA MICROon 06-15-2021 [facility] FOLATE, SERUMon 06-15-2021 Folate [Mass/Vol] 10.33 ng/mL >5.38 [facility] Interpretation and review of laboratory results Normal [facility] GLUCOSE POCon 06-15-2021 Glucose [Mass/Vol] 150 mg/dL High 70 - 99 mg/dL [facility] Interpretation and review of laboratory results Abnormal [facility] Poc Sample Type CAPBL [facility] Test performed at ad dress of the patient encounter. [facility] Glucose [Mass/Vol] 225 mg/dL High 70 - 99 mg/dL [facility] Interpretation and review of laboratory results Abnormal [facility] Poc Sample Type CAPBL [facility] Test performed at ad dress of the patient encounter. [facility] Glucose [Mass/Vol] 257 mg/dL High 70 - 99 mg/dL [facility] Interpretation and review of laboratory results Abnormal [facility] Poc Sample Type CAPBL [facility] Test performed at ad dress of the patient encounter. [facility] Glucose [Mass/Vol] 147 mg/dL High 70 - 99 mg/dL [facility] Interpretation and review of laboratory results Abnormal [facility] Poc Sample Type CAPBL [facility] Test performed at ad dress of the patient encounter. [facility] MR Brain WO contraston 06-15 IMPRESSION: No evidence of an acute infarct. No acute intracranial process. Changes of chronic microvascular disease. 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 Prominence of the ventricles and sulci compatible with mild volume loss. OLOGY EXAM: MRI BRAIN WITH OUT CONTRAST, 06/15/2021 04:53 AM COMPARISON: No prior studies available for comparison. CLINICAL INDICATIONS: 60 years Male Mental status change, unknown cause; RELEVANT CLINICAL HISTORY: TECHNIQUE: A series of multisequence, multiplanar images of the brain are obtained without intravenous contrast. FINDINGS: Moderately extensive white matter signal abnormalities are noted in the periventricular and subcortical location nonspecific in appearance but may be due to chronic microvascular disease.. No evidence of edema. No evidence of mass lesion. No evidence of hemorrhage. No diffusion restriction or evidence of acute infarct is identified. Small remote infarcts are noted in bilateral thalami and the melanie. No extracerebral collection. Sellar and parasellar structures are unremarkable. Posterior fossa is unremarkable. Prominence of the ventricles and sulci likely related to mild volume loss. Extracranial structures are unremarkable. RADIOLOGY Zahra Brewer MBBS - 06/15/2021 EXAM: MRI BRAIN WITHOUT CONTRAST, 06/15/2021 04:53 AM COMPARISON: No prior studies available for comparison. CLINICAL INDICATIONS: 60 years Male Mental status change, unknown cause; RELEVANT CLINICAL HISTORY: TECHNIQUE: A series of multisequence, multiplanar images of the brain are obtained without intravenous contrast. FINDINGS: Moderately extensive white matter signal abnormalities are noted in the periventricular and subcortical location nonspecific in appearance but may be due to chronic microvascular disease.. No evidence of edema. No evidence of mass lesion. No evidence of hemorrhage. No diffusion restriction or evidence of acute infarct is identified. Small remote infarcts are noted in bilateral thalami and the melanie. No extracerebral collection. Sellar and parasellar structures are unremarkable. Posterior fossa is unremarkable. Prominence of the ventricles and sulci likely related to mild volume loss. Extracranial structures are unremarkable. IMPRESSION IMPRESSION: No evidence of an acute infarct. No acute intracranial process. Changes of chronic microvascular disease. 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 Prominence of the ventricles and sulci compatible with mild volume loss. [facility] Radiology Study observation (narrative) [facility] MR Brain WO contrastOrdered By: Zahra Brewer on 06-15-2021 [facility] Work Phone: MRI PLAIN FILM FOR NEURO EXA 06-15-2021 IMPRESSION: 1. There is a peritoneal dialysis system in place along the anterior abdominal wall. 2. No deeper metallic implants within the abdomen or pelvis. 3. No metallic implants within the chest or calvarium. OLOGY EXAM: MRI PLAIN FILM FOR NEURO EXAM, 06/14/2021 20:22 PM CLINICAL INDICATIONS: Skull, Abdomen and Pelvis COMPARISON: CT angiography of the abdomen and pelvis dated August 11, 2020 TECHNIQUE: AP and lateral views of the calvarium, chest, abdomen, and pelvis were obtained FINDINGS: There are no metallic implants in the brain or orbits. No metallic objects are seen within the chest aside from a coronary artery stent. Calcification along this change in the right lung base. There are superficial objects along the abdomen compatible with a peroneal dialysis catheter system. No metallic implants objects within the peritoneum proper. Numerous surgical clips are seen in the right lower quadrant compatible with patient's transplant kidney. There is a nonobstructive bowel gas pattern. RADIOLOGY Nicolas Garnett MD - 06/15/2021 EXAM: MRI PLAIN FILM FOR NEURO EXAM, 06/14/2021 20:22 PM CLINICAL INDICATIONS: Skull, Abdomen and Pelvis COMPARISON: CT angiography of the abdomen and pelvis dated August 11, 2020 TECHNIQUE: AP and lateral views of the calvarium, chest, abdomen, and pelvis were obtained FINDINGS: There are no metallic implants in the brain or orbits. No metallic objects are seen within the chest aside from a coronary artery stent. Calcification along this change in the right lung base. There are superficial objects along the abdomen compatible with a peroneal dialysis catheter system. No metallic implants objects within the peritoneum proper. Numerous surgical clips are seen in the right lower quadrant compatible with patient's transplant kidney. There is a nonobstructive bowel gas pattern. IMPRESSION IMPRESSION: 1. There is a peritoneal dialysis system in place along the anterior abdominal wall. 2. No deeper metallic implants within the abdomen or pelvis. 3. No metallic implants within the chest or calvarium. [facility] MRI PLAIN FILM FOR NEURO EXA MOrdered By: Nicolas Garnett on 06-15-2021 [facility] Work Phone: PLATELET COUNTon 06-15-2021 Interpretation and review of laboratory results Normal [facility] Platelet mean volume (Bld) [Entitic vol] 11.3 fL 8.7 - 12.3 fL [facility] Platelets (Bld) [#/Vol] 153 10*3/uL 146 - 337 K/uL [facility] T. pallidum Ab Ql (S)Ordered By: Cici Rose on 06-15-2021 Interpretation and review of laboratory results Normal [facility] T. pallidum IgG Ql (S) Non-Reactive Non Reactive [facility] TACROLIMUS, RANDOMon 022 Interpretation and review of laboratory results Abnormal [facility] Tacrolimus (Bld) [Mass/Vol] 13.2 ng/mL High Bone Marrow Transplant : 4.0-12.0, Therapeuti c: 5.0-15.0 [facility] Method performed is a chemiluminescent microparticle immunoasssay on the [employer] i2000. The range is based on experience at [facility] and users should be aware that target concentrations vary widely depending on concomitant therapy, time post-transplant, and desired degree of immunosuppression. [facility] VENOUS BLOOD GASon Base excess Calc (Bld) [Moles/Vol] -7.6000 mmol/L Low -3.0 - 3.0 mmol/L [facility] CO2 (Bld) [Partial pressure] 36 mm[Hg] [facility] HCO3 (Bld) [Moles/Vol] 19 mmol/L Low 22 - 29 mmol/L [facility] Interpretation and review of laboratory results Abnormal [facility] Oxygen (Bld) [Partial pressure] 43 mm[Hg] mm Hg [facility] Comment on above: Venous pO2 is not re commended for the evaluation of oxygen status, clinical correlation is recommended. Oxygen saturation in Blood 78 % 70 - 80 % [facility] pH (Bld) 7.32 [pH] [facility] CBC,PLATELETSon 06-14-2021 Erythrocyte distribution width (RBC) [Ratio] 13.9 % 10.9 - 14.3 % [facility] Hematocrit (Bld) [Volume fraction] 36.1 % Low 39.6 - 48.8 % [facility] Hemoglobin (Bld) [Mass/Vol] 11.6 g/dL Low 13.4 - 16.8 g/dL [facility] Interpretation and review of laboratory results Abnormal [facility] MCH (RBC) [Entitic mass] 30.7 pg 26.1 - 33.3 pg [facility] MCHC (RBC) [Mass/Vol] 32.1 g/dL 31.9 - 36.5 g/dL [facility] MCV (RBC) [Entitic vol] 95.5 fL High 79.0 - 94.5 fL [facility] Platelet mean volume (Bld) [Entitic vol] 11.0 fL 8.7 - 12.3 fL [facility] Platelets (Bld) [#/Vol] 159 10*3/uL 146 - 337 K/uL [facility] RBC (Bld) [#/Vol] 3.78 10*6/uL Low [facility] WBC (Bld) [#/Vol] 6.51 10*3/uL 3.73 - 10.10 K/uL [facility] CHEM 6 (LYTES, BUN CREA)on 0 06-14-2021 Anion gap [Moles/Vol] 12 mmol/L 7 - 17 mmol/L [facility] Chloride [Moles/Vol] 112 mmol/L High 98 - 10 8 mmol/L [facility] CO2 [Moles/Vol] 19 mmol/L Low 21 - 31 mmol/L [facility] Creatinine [Mass/Vol] 2.62 mg/dL High 0.70 - 1.30 mg/dL [facility] GFR/1.73 sq M.predicted CKD-EPI (S/P/Bld) [Vol rate/Area] 27 Low >=60 mL/min/1.7 3m2 [facility] Comment on above: Reported eGFR is bas ed on the CKD-EPI 2020 equation using creatinine, age, and sex. Interpretation and review of laboratory results Abnormal [facility] Potassium [Moles/Vol] 5.0 mmol/L 3.5 - 5.0 mmol/L [facility] Sodium [Moles/Vol] 138 mmol/L 135 - 145 mmol/L [facility] Urea nitrogen [Mass/Vol] 28 mg/dL High 7 - 25 mg/dL [facility] Urea nitrogen/Creatinine [Mass ratio] 11 mg/mg [facility] GLUCOSE POCon 06-14-2021 Glucose [Mass/Vol] 245 mg/dL High 70 - 99 mg/dL [facility] Interpretation and review of laboratory results Abnormal [facility] Poc Sample Type CAPBL [facility] Test performed at ad dress of the patient encounter. [facility] Glucose [Mass/Vol] 251 mg/dL High 70 - 99 mg/dL [facility] Interpretation and review of laboratory results Abnormal [facility] Poc Sample Type CAPBL [facility] Test performed at ad dress of the patient encounter. [facility] Glucose [Mass/Vol] 112 mg/dL High 70 - 99 mg/dL [facility] Interpretation and review of laboratory results Abnormal [facility] Poc Sample Type CAPBL [facility] Test performed at ad dress of the patient encounter. [facility] Glucose [Mass/Vol] 289 mg/dL High 70 - 99 mg/dL [facility] Interpretation and review of laboratory results Abnormal [facility] Poc Sample Type CAPBL [facility] Test performed at ad dress of the patient encounter. [facility] Glucose [Mass/Vol] 166 mg/dL High 70 - 99 mg/dL [facility] Interpretation and review of laboratory results Abnormal [facility] Poc Sample Type CAPBL [facility] Test performed at ad dress of the patient encounter. [facility] MRI PLAIN FILM FOR NEURO EXA 06-14-2021 Radiology Study observation (narrative) [facility] TACROLIMUS LEVEL, TROUGH (TN E DRUG LEVEL)on 06-14-2021 Interpretation and review of laboratory results Abnormal [facility] Tacrolimus (Bld) [Mass/Vol] 14.6 ng/mL High Bone Marrow Transplant : 4.0-12.0, Therapeuti c: 5.0-15.0 [facility] Method performed is a chemiluminescent microparticle immunoasssay on the [employer] i2000. The range is based on experience at [facility] and users should be aware that target concentrations vary widely depending on concomitant therapy, time post-transplant, and desired degree of immunosuppression. [facility] URINALYSIS REFLEX TO CULTURE PERFORMABLEon 06-14-2021 Appearance (U) Clear Clear [facility] Bacteria LM Ql (Urine sed) ABSENT ABSENT [facility] Color (U) Yellow Yellow [facility] Glucose Test strip (U) [Mass/Vol] >=1000 mg/dL Abnormal Negative [facility] Interpretation and review of laboratory results Abnormal [facility] Ketones (U) [Mass/Vol] Negative Negative OS [facility] Leukocyte esterase Test strip Ql (U) Negative Negative [facility]itrite [facility]l (U) [facility] pH (U) 5.0 [pH] 5.0 - 7.0 [facility] Protein (U) [Mass/Vol] Trace Abnormal Negative [facility]U) [#[facility]] [facility] LM.HPF (Urine sed) [#/Area] 0-2 0 - 2 /HPF [facility] Specific gravity (U) [Rel density] 1.026 [facility] Squamous/Epithelial Cells ABSENT 1/hpf = 1+, 2-5/hpf = 2+, 0/hpf = 0+, ABSENT [facility] Urobilinogen (U) [Mass/Vol] 0.2 E.U./dL 0.2 E.U/dL, 1.0 E.U/dL [facility] WBC LM.HPF (Urine sed) [#/Area] 0-5 0 - 5 /HPF [facility] EXTRA MICROon 06-13-2021 [facility] GLUCOSE POCon 06-13-2021 Glucose [Mass/Vol] 355 mg/dL High 70 - 99 mg/dL [facility] Interpretation and review of laboratory results Abnormal [facility] Poc Sample Type CAPBL [facility] Test performed at ad dress of the patient encounter. [facility] Glucose [Mass/Vol] 294 mg/dL High 70 - 99 mg/dL [facility] Interpretation and review of laboratory results Abnormal [facility] Poc Sample Type CAPBL [facility] Test performed at ad dress of the patient encounter. [facility] Glucose [Mass/Vol] 180 mg/dL High 70 - 99 mg/dL [facility] Interpretation and review of laboratory results Abnormal [facility] Poc Sample Type CAPBL [facility] Test performed at ad dress of the patient encounter. [facility] HEMOGLOBIN [id number] By: Fr mehul Alvarez on 06-13-2021 Average glucose Estimated from glycated hemoglobin (Bld) [Mass/Vol] 123 mg/dL [facility] HbA1c (Bld) [Mass fraction] 5.9 % High 4.7 - 5.6 % [facility] Interpretation and review of laboratory results Abnormal [facility] TACROLIMUS LEVEL, TROUGH (TN E DRUG LEVEL)Ordered By: Phoebe Meredith on 06-13-2021 Interpretation and review of laboratory results Abnormal [facility] Tacrolimus (Bld) [Mass/Vol] 13.3 ng/mL High Bone Marrow Transplant : 4.0-12.0, Therapeuti c: 5.0-15.0 [facility] Method performed is a chemiluminescent microparticle immunoasssay on the [employer] i2000. The range is based on experience at [facility] and users should be aware that target concentrations vary widely depending on concomitant therapy, time post-transplant, and desired degree of immunosuppression. [facility] CALCIUMon 06-12-2021 Calcium [Mass/Vol] 10.7 mg/dL High 8.6 - 10. 5 mg/dL [facility] CBC AND ELECTRONIC DIFFon Basophils (Bld) [#/Vol] 0.07 10*3/uL 0.00 - 0.09 K/uL [facility] Basophils/100 WBC (Bld) 1.2 % [facility] DIFF STATUS Electronic Differential [facility] Eosinophils (Bld) [#/Vol] 0.16 10*3/uL 0.00 - 0.48 K/uL [facility] Eosinophils/100 WBC (Bld) 2.7 % [facility] Erythrocyte distribution width (RBC) [Ratio] 14.0 % 10.9 - 14.3 % [facility] Hematocrit (Bld) [Volume fraction] 37.0 % Low 39.6 - 48.8 % [facility] Hemoglobin (Bld) [Mass/Vol] 12.0 g/dL Low 13.4 - 16.8 g/dL [facility] Immature granulocytes (Bld) [#/Vol] 0.05 10*3/uL <=0.08 [facility] Immature granulocytes/100 WBC (Bld) 0.8 % [facility] Interpretation and review of laboratory results Abnormal [facility] Lymphocytes (Bld) [#/Vol] 0.92 10*3/uL 0.83 - 3.57 K/uL [facility] Lymphocytes/100 WBC (Bld) 15.4 % [facility] MCH (RBC) [Entitic mass] 31.1 pg 26.1 - 33.3 pg [facility] MCHC (RBC) [Mass/Vol] 32.4 g/dL 31.9 - 36.5 g/dL [facility] MCV (RBC) [Entitic vol] 95.9 fL High 79.0 - 94.5 fL [facility] Monocytes (Bld) [#/Vol] 0.56 10*3/uL 0.24 - 0.93 K/uL [facility] Monocytes/100 WBC (Bld) 9.4 % [facility] Neutrophils (Bld) [#/Vol] 4.21 10*3/uL 1.57 - 6.19 K/uL [facility] Nucleated RBC/100 WBC (Bld) [Ratio] 0.0 % <=0.2 /100 WBC [facility] Platelet mean volume (Bld) [Entitic vol] 11.1 fL 8.7 - 12.3 fL [facility] Platelets (Bld) [#/Vol] 185 10*3/uL 146 - 337 K/uL [facility] RBC (Bld) [#/Vol] 3.86 10*6/uL Low [facility] Segmented neutrophils/100 WBC (Bld) 70.5 % [facility] WBC (Bld) [#/Vol] 5.97 10*3/uL 3.73 - 10.10 K/uL [facility] CHEM 7 (LYTES,BUN,CREA,GLUC) on 06-12-2021 Anion gap [Moles/Vol] 11 mmol/L 7 - 17 mmol/L [facility] Chloride [Moles/Vol] 112 mmol/L High 98 - 10 8 mmol/L [facility] CO2 [Moles/Vol] 20 mmol/L Low 21 - 31 mmol/L [facility] Creatinine [Mass/Vol] 2.41 mg/dL High 0.70 - 1.30 mg/dL [facility] GFR/1.73 sq M.predicted CKD-EPI (S/P/Bld) [Vol rate/Area] 30 Low >=60 mL/min/1.7 3m2 [facility] Comment on above: Reported eGFR is bas ed on the CKD-EPI 2020 equation using creatinine, age, and sex. Glucose [Mass/Vol] 199 mg/dL High 70 - 99 mg/dL [facility] Osmolality Calc [Osmolality] 306 High [facility] Potassium [Moles/Vol] 4.4 mmol/L 3.5 - 5.0 mmol/L [facility] Sodium [Moles/Vol] 139 mmol/L 135 - 145 mmol/L [facility] Urea nitrogen [Mass/Vol] 34 mg/dL High 7 - 25 mg/dL [facility] Urea nitrogen/Creatinine [Mass ratio] 14 mg/mg [facility] GLUCOSE POCon 06-12-2021 Glucose [Mass/Vol] 295 mg/dL High 70 - 99 mg/dL [facility] Interpretation and review of laboratory results Abnormal [facility] Poc Sample Type CAPBL [facility] Test performed at [facility] of the patient encounter. [facility] Glucose [Mass/Vol] 265 mg/dL High 70 - 99 mg/dL [facility] Interpretation and review of laboratory results Abnormal [facility] Poc Sample Type CAPBL [facility] Test performed at ad dress of the patient encounter. [facility] Glucose [Mass/Vol] 334 mg/dL High 70 - 99 mg/dL [facility] Interpretation and review of laboratory results Abnormal [facility] Poc Sample Type [facility] Test performed at ad dress of the patient encounter. [facility] Glucose [Mass/Vol] 242 mg/dL High 70 - 99 mg/dL [facility] Interpretation and review of laboratory results Abnormal [facility] Test performed at ad dress of the patient encounter. [facility] Glucose [Mass/Vol] 156 mg/dL High 70 - 99 mg/dL [facility] Interpretation and review of laboratory results Abnormal [facility] Poc Sample [facility] Test performed at ad dress of the patient encounter. [facility] HEPATIC FUNCTION PANELon Albumin [Mass/Vol] 3.8 g/dL 3.5 - 5.0 g/dL [facility] ALP [Catalytic activity/Vol] 103 U/L 32 - 126 U/L [facility] ALT [Catalytic activity/Vol] 14 U/L 10 - 52 U/L [facility] AST [Catalytic activity/Vol] 11 U/L 10 - 39 U/L [facility] Bilirubin [Mass/Vol] 0.5 mg/dL <1.5 [facility] Bilirubin.direct [Mass/Vol] 0.1 mg/dL <0.3 [facility] Protein [Mass/Vol] 5.7 g/dL Low 6.4 - 8.3 g/dL [facility] MAGNESIUMon 06-12-2021 Magnesium [Mass/Vol] 1.5 mg/dL Low 1.6 - 2 .6 mg/dL [facility] No Panel Informationon 06-12 Interpretation and review of laboratory results Abnormal [facility] PHOSPHATE, INORGANICon 06-12 Interpretation and review of laboratory results Normal [facility] Phosphate [Mass/Vol] 2.3 mg/dL 2.2 - 4 .6 mg/dL [facility] PROCALCITONINOrdered By: Dennis Bustos on 06-12-2021 Interpretation and review of laboratory results Normal [facility] Procalcitonin [Mass/Vol] 0.16 ng/mL <=0.50 [facility] Comment on above: Procalcitonin is an FDA-approved assay to help manage antibiotic treatment in patients with sepsis/septic shock and lower respiratory tract infections. Specifically, trending procalcitonin in these situations can be used to reduce the duration of antibiotics. Please refer to the Procalcitonin Guide on the [employer] Webpage for more guidance on how to use and trend procalcitonin in various clinical settings. [email or web address] Two common cutoffs associated with bacterial infections are as follows. Respiratory tract infections: >0.25 ng/mL Sepsis/septic shock: >0.5 ng/mL Procalcitonin should not be used alone as a diagnostic tool, however. All procalcitonin results should be interpreted in association with the patients clinical condition and all laboratory findings. [facility] PT,INR,PTTon 06-12-2021 aPTT Coag (PPP) [Time] 28.3 s [facility] INR Coag (Bld) [Relative time] 1.0 {INR} [facility] Interpretation and review of laboratory results Normal [facility] PT Coag (PPP) [Time] 13.5 s [facility] Portable XR Chest Viewson IMPRESSION: No acute cardiopulmonary disease OLOGY EXAM: XR CHEST ELSY BLE, 06/12/2021 05:02 AM COMPARISON: Chest radiograph dated June 30, 2020 CLINICAL INDICATIONS: rule out infection RELEVANT CLINICAL HISTORY: FINDINGS: (Adequate technique) Implanted Devices: None Thorax: The cardiac silhouette is borderline enlarged. No overt vascular congestion or pleural effusion. Lungs are clear. No pneumothorax. RADIOLOGY Alden Pete DO - 06/12/2021 EXAM: XR CHEST PORTABLE, 06/12/2021 05:02 AM COMPARISON: Chest radiograph dated June 30, 2020 CLINICAL INDICATIONS: rule out infection RELEVANT CLINICAL HISTORY: FINDINGS: (Adequate technique) Implanted Devices: None Thorax: The cardiac silhouette is borderline enlarged. No overt vascular congestion or pleural effusion. Lungs are clear. No pneumothorax. IMPRESSION IMPRESSION: No acute cardiopulmonary disease [facility] Radiology Study observation (narrative) [facility] Portable XR Chest ViewsOrder ed By: Alden Pete on 06-12-2021 [facility] Work Phone: TACROLIMUS LEVEL, TROUGH (TN E DRUG LEVEL)on 06-12-2021 Interpretation and review of laboratory results Normal [facility] Tacrolimus (Bld) [Mass/Vol] 11.1 ng/mL Bone Marrow Transplant : 4.0-12.0, Therapeuti c: 5.0-15.0 [facility] Method performed is a chemiluminescent microparticle immunoasssay on the [employer] i2000. The range is based on experience at [facility] and users should be aware that target concentrations vary widely depending on concomitant therapy, time post-transplant, and desired degree of immunosuppression. [facility] TSH W/FT4 REFLEXon 2 Interpretation and review of laboratory results Normal [facility] TSH Qn 1.449 m[IU]/L [facility] URINALYSIS REFLEX TO CULTURE PERFORMABLEon 06-12-2021 Appearance (U) Clear Clear [facility] Bacteria LM Ql (Urine sed) ABSENT ABSENT [facility] Color (U) Yellow Yellow [facility] Glucose Test strip (U) [Mass/Vol] >=1000 mg/dL Abnormal Negative [facility] Interpretation and review of laboratory results Abnormal [facility] Ketones (U) [Mass/Vol] Negative Negative [facility] Leukocyte esterase Test strip Ql (U) Negative Negative [facility] Nitrite Ql (U) Negative Negative [facility] pH (U) 5.0 [pH] 5.0 - 7.0 [facility] Protein (U) [Mass/Vol] 30 mg/dL Abnormal Negative [facility] RBC (U) [#/Vol] Negative Negative [facility] RBC LM.HPF (Urine sed) [#/Area] 0-2 0 - 2 /HPF [facility] Specific gravity (U) [Rel density] 1.017 [facility] Squamous/Epithelial Cells ABSENT 1/hpf = 1+, 2-5/hpf = 2+, 0/hpf = 0+, ABSENT [facility] Urobilinogen (U) [Mass/Vol] 0.2 E.U./dL 0.2 E.U/dL, 1.0 E.U/dL [facility] WBC LM.HPF (Urine sed) [#/Area] 0-5 0 - 5 /HPF [facility] VITAMIN [id number] By: Tiara teran on 06-12-2021 Cobalamin (Vitamin B12) [Mass/Vol] 1370 pg/mL High 211 - 911 pg/mL [facility] Comment on above: Testing of Methylmal onic Acid and Intrinsic Factor Blocking Antibody are recommended if clinical suspicion for pernicious anemia due to B12 deficiency is high for patients with intermediate B12 levels (211 to 400 pg/mL) to rule out spurious heterophile antibodies. Interpretation and review of laboratory results Abnormal [facility] Absolute lymphocyte counton 06-11-2021 Lymphocytes Auto (Unsp spec) [#/Vol] 0.87 10*3/uL 0.83-4.51 [facility] Work Phone: Basophil percentageon 2021 Basophils/100 WBC (Bld) 0.9 % 0-1 [facility] Work Phone: Bilirubin [Mass/Vol] 0.60 mg/dL 0.20-1.00 [facility] Work Phone: Comment on above: For patients on eltr ombopag therapy, use of Dimension [place] TBIL is not recommended. Chloride [Moles/Vol] 114 mmol/L 98-107 [facility] Work Phone: [phone] Eosinophils/100 WBC (Bld) 1.7 % 0-5 [facility] Work Phone: Glucose [Mass/Vol] 251 mg/dL 74-[address] [facility] Work Phone: Comment on above: Glucose result great er than or equal to 200 mg/dLsuggests DIABETES MELLITUS per A.D.A. criteria. Neutrophils (Bld) [#/Vol] 4.8 10*3/uL 2.0-7.7 [facility] Work Phone: [phone] Neutrophils/100 WBC (Bld) 74.5 % 47-70 [facility] Work Phone: Potassium [Moles/Vol] 4.7 mmol/L 3.5-5.1 [facility] Work Phone: Protein [Mass/Vol] 5.8 g/dL 6.4-8.[address] [facility] Work Phone: Sodium [Moles/Vol] 140 mmol/L 136-[address] [facility] Work Phone: WBC (Bld) [#/Vol] 6.5 10*3/uL 4.4-11.[address] [facility] Work Phone: Basophil percentage 0 SEEN /hpf 0-5 [facility] Work Phone: Bilirubin Test strip Ql (U)o n 06-11-2021 Bilirubin Ql (U) Negative Negative [facility] Work Phone: Blood erythrocytes count (nu mber/volume)on 06-11-2021 RBC (Bld) [#/Vol] 3.97 10*6/uL 4.6-6.2 [facility] Work Phone: Blood hemoglobin measurement (mass/volume)on 06-11-2021 Hemoglobin (Bld) [Mass/Vol] 12.6 g/dL 13.0-16.5 [facility] Work Phone: Blood lymphocytes/100 leukoc yteson 06-11-2021 Lymphocytes/100 WBC (Bld) 13.5 % 19-41 [facility] Work Phone: Blood monocytes/100 leukocyt eson 06-11-2021 Monocytes/100 WBC (Bld) 8.5 % 0-10 [facility] Work Phone: Blood platelet mean volumeon 06-11-2021 Platelet mean volume (Bld) [Entitic vol] 10.9 fL 6.2-12.0 [facility] Work Phone: Determination of erythrocyte mean corpuscular volume (MCV)on 06-11-2021 MCV (RBC) [Entitic vol] 95.5 fL 80-94 [facility] Work Phone: Glucose Glucometer (BldC) [M ass/Vol]on 06-11-2021 Glucose [Mass/Vol] 302 mg/dL 74-[address] [facility] Work Phone: Comment on above: MANAGEMENT OF PATIEN T CARE PER NURSING PROTOCOL Hematocrit Auto (Bld) [Volum e fraction]on 06-11-2021 Hematocrit (Bld) [Volume fraction] 37.9 % 40-54 [facility] Work Phone: Ketones Test strip Ql (U)on 06-11-2021 Ketones Ql (U) 5 mg/dl Negative [facility] Work Phone: Laboratory - Chemistry and C hemistry - challengeon 06-11-2021 ALP [Catalytic activity/Vol] 119 U/L 45-117 [facility] Work Phone: ALT [Catalytic activity/Vol] 25 U/L 16-61 [facility] Work Phone: CO2 [Moles/Vol] 18.0 mmol/L 21.0-32.0 [facility] Work Phone: Globulin (S) [Mass/Vol] 2.3 g/dL 2.2-4.2 [facility] Work Phone: Urea nitrogen/Creatinine [Mass ratio] 14.2 mg/mg 10-20 [facility] Work Phone: Laboratory - Hematology and Cell countson 06-11-2021 Erythrocyte distribution width (RBC) [Entitic vol] 48.6 fL 35.1-43.9 [facility] Work Phone: Erythrocyte distribution width (RBC) [Ratio] 13.7 % 11.6-14.6 [facility] Work Phone: Immature granulocytes/100 WBC (Bld) 0.900 % 0.0-0.9 [facility] Work Phone: Comment on above: IG% - Immature Granu locytes (promyelocytes, myelocytes and metamyelocytes) > 1% indicates that a LEFT SHIFT is Present. MCH (RBC) [Entitic mass] 31.7 pg 27.0-32.0 [facility] Work Phone: Nucleated RBC/100 WBC (Bld) [Ratio] 0 % 0-5 [facility] Work Phone: MCHC Auto (RBC) [Mass/Vol]on 06-11-2021 MCHC (RBC) [Mass/Vol] 33.2 g/dL 32-36 [facility] Work Phone: Mucus LM Ql (Urine sed)on Mucus Ql (Urine sed) 0 SEEN /hpf [facility] Work Phone: Nitrite Test strip Ql (U)on 06-11-2021 Nitrite Ql (U) Negative Negative [facility] Work Phone: No Panel Informationon 06-11 Estimated Creatinine Clearance Calc 33.66 ml/min [facility] Work Phone: Estimated GFR (MDRD) Amer 35 mL/min >60 [facility] Work Phone: Comment on above: GFR Calc Estimated GFR (MDRD) Non-Af Amer 29 mL/min >60 [facility] Work Phone: Comment on above: Non- GFR Calc Platelets bldon 06-11-2021 Platelets (Bld) [#/Vol] 185 10*3/uL 150-450 [facility] Work Phone: Protein Test strip Ql (U)on 06-11-2021 Protein Ql (U) 30 mg/dl Negative [facility] Work Phone: Serum or plasma albumin caity urement (mass/volume)on 06-11-2021 Albumin [Mass/Vol] 3.5 g/dL 3.2-5.[address] [facility] Work Phone: Serum or plasma albumin/glob ulin mass ratioon 06-11-2021 Albumin/Globulin [Mass ratio] 1.5 {ratio} 0.9-2.4 [facility] Work Phone: Serum or plasma calcium caity urement (mass/volume)on 06-11-2021 Calcium [Mass/Vol] 10.5 mg/dL 8.5-10.[address] [facility] Work Phone: Serum or plasma creatinine m easurement (mass/volume)on 06-11-2021 Creatinine [Mass/Vol] 2.47 mg/dL 0.70-1.30 [facility] Work Phone: Comment on above: The validity of the calculated GFR & GFRAA in patients over 70 years has not been determined. Clinical correlation is essential. Serum or plasma urea nitroge n measurement (mass/volume)on 06-11-2021 Urea nitrogen [Mass/Vol] 35 mg/dL 7-18 [facility] Work Phone: Squamous epithelial cells de tection in urine sediment by light microscopyon 06-11-2021 Epithelial cells.squamous LM Ql (Urine sed) 0 SEEN /hpf 0-5 [facility] Work Phone: Thin prep Papanicolaou smear with manual screeningon 06-11-2021 Thin prep Papanicolaou smear with manual screening 10 U/L 15-37 [facility] Work Phone: Thin prep Papanicolaou smear with manual screening 8 5-15 [facility] Work Phone: Urine blood detectionon 05-31 RBC Ql (U) Negative Negative [facility] Work Phone: RBC Ql (U) 0 SEEN /hpf 0-5 [facility] Work Phone: Urine clarityon 06-11-2021 Clarity (U) Clear Clear [facility] Work Phone: Urine color determinationon 06-11-2021 Color (U) Yellow Yellow [facility] Work Phone: Urine glucose detectionon Glucose Ql (U) 1000 mg/dl Normal [facility] Work Phone: Urine leukocyte esterase det ection by dipstickon 06-11-2021 Leukocyte esterase Test strip Ql (U) Negative Negative [facility] Work Phone: Urine pHon 06-11-2021 pH (U) 5.0 [pH] 5.0 - 8.0 [facility] Work Phone: Urine sediment bacteria coun t by microscopy (number/high power field)on 06-11-2021 Bacteria LM.HPF (Urine sed) [#/Area] 0 /[HPF] None Seen [facility] Work Phone: Urine specific gravity measu rementon 06-11-2021 Specific gravity (U) [Rel density] 1.015 1.002-1.03 0 [facility] Work Phone: Urobilinogen Auto test strip Ql (U)on 06-11-2021 Urobilinogen Ql (U) Normal mg/dl Normal [facility] Work Phone: No Panel Informationon 06-10 D-Dimer Quantitative (PE/DVT) 0.50 FEU/ug/m 0.27-0.49 [facility] Work Phone: Comment on above: D-Dimer ELEVATED (>0 .49): Additional studies and clinicalassessments are indicated to conclude diagnosis of:Deep Vein Thrombosis (DVT) or Pulmonary Embolism (PE)CRITICAL VALUE VERIFIED. CALLED TO Ana Luisa PRINCE RN ER06/10/21 0224 Joe Pena.RESULTS READ BACK BY SAME. Serum procalcitonin measurem enton 06-10-2021 Procalcitonin [Mass/Vol] 0.33 ng/mL 0.00-0.09 [facility] Work Phone: Comment on above: A procalcitonin (PCT ) level above 2.0 ng/mL on the first day of ICU admission is associated with a high risk for progression to severe sepsis and/or septic shock. A PCT level below 0.5 ng/mL on the first day of ICU admission is associated with a low risk for progression to severe and/or septic shock. Note: Concentrations <0.5 ng/mL do not exclude an infection on account of localized infections (without systemic signs) which can be associated with such low concentrations, or a systemic infection in its initial stages (<6 hours). Furthermore, increased procalcitonin can occur without infection. PCT concentrations between 0.5 and 2.0 ng/mL should be interpreted taking into account the patient's history. It is recommended to retest PCT within 6-24 hours if any concentrations <2 ng/mL are obtained. ALBUMINon 06-09-2021 Albumin [Mass/Vol] 4.1 g/dL Normal 3.4 - 5.0 [facility] Comment on above: Performed By: #### M DIFF #### [address] [address] ALKALINE PHOSPHATASEon 06-09 ALP [Catalytic activity/Vol] 110 U/L Normal 33 - 120 [facility] Comment on above: Performed By: #### A P #### [address] [address] Zay 06-09-2021 ALT [Catalytic activity/Vol] 20 U/L Normal 10 - 52 [facility] Comment on above: Result Comment: Lila ents treated with Sulfasalazine may generate falsely decreased results for ALT. Performed By: #### M DIFF #### [address] [address] Flavia 06-09-2021 AST [Catalytic activity/Vol] 14 U/L Normal 9 - 39 [facility] Comment on above: Performed By: #### A P #### [address] [address] Absolute lymphocyte counton 06-09-2021 Lymphocytes Auto (Unsp spec) [#/Vol] 1.16 10*3/uL 0.83-4.51 [facility] Work Phone: BASIC METABOLIC PANELon 05-31 Anion gap [Moles/Vol] 12 mmol/L Normal 10 - 20 [facility] Comment on above: Performed By: #### B MP #### [address] [address] Calcium [Mass/Vol] 11.3 mg/dL High 8.6 - 10.3 [facility] Comment on above: Performed By: #### B MP #### [address] [address] Chloride [Moles/Vol] 108 mmol/L High 98 - 107 [facility] Comment on above: Performed By: #### B MP #### [address] [address] Creatinine [Mass/Vol] 3.10 mg/dL High 0.50 - 1.30 [facility] Comment on above: Performed By: #### B MP #### [address] [address] GFR/1.73 sq M.predicted among non-blacks MDRD (S/P/Bld) [Vol rate/Area] 22 mL/min/{1.73_m2} Abnormal >90 [facility] Comment on above: Result Comment: CALC ULATIONS OF ESTIMATED GFR ARE PERFORMED USING THE 2020 CKD-EPI STUDY REFIT EQUATION WITHOUT THE RACE VARIABLE FOR THE IDMS-TRACEABLE CREATININE METHODS. https://jasn.asnjournals.org/content/early/ASN.67614 05184 Performed By: #### B MP #### [address] [address] Glucose [Mass/Vol] 223 mg/dL High 74 - 99 [facility] Comment on above: Performed By: #### B MP #### [address] [address] HCO3 (Bld) [Moles/Vol] 21 mmol/L Normal 21 - 32 [facility] Comment on above: Performed By: #### B MP #### [address] [address] Potassium [Moles/Vol] 4.8 mmol/L Normal 3.5 - 5.3 [facility] Comment on above: Performed By: #### B MP #### [address] [address] Sodium [Moles/Vol] 136 mmol/L Normal 136 - 145 [facility] Comment on above: Performed By: #### B MP #### [address] [address] Urea nitrogen [Mass/Vol] 38 mg/dL High 6 - 23 [facility] Comment on above: Performed By: #### B MP #### [address] [address] BILIRUBIN,TOTALon 06-09-2021 Bilirubin [Mass/Vol] 0.6 mg/dL Normal 0.0 - 1.2 [facility] Comment on above: Performed By: #### A P #### [address] [address] Basophil percentageon 2021 Basophils/100 WBC (Bld) 0.8 % 0-1 [facility] Work Phone: Chloride [Moles/Vol] 107 mmol/L 98-107 [facility] Work Phone: Eosinophils/100 WBC (Bld) 1.7 % 0-5 [facility] Work Phone: Glucose [Mass/Vol] 226 mg/dL 74-106 [facility] Work Phone: Comment on above: Glucose result great er than or equal to 200 mg/dLsuggests DIABETES MELLITUS per A.D.A. criteria. Neutrophils (Bld) [#/Vol] 5.5 10*3/uL 2.0-7.7 [facility] Work Phone: Neutrophils/100 WBC (Bld) 72.7 % 47-70 [facility] Work Phone: Potassium [Moles/Vol] 4.8 mmol/L 3.5-5.1 [facility] Work Phone: Sodium [Moles/Vol] 136 mmol/L 136-[address] [facility] Work Phone: WBC (Bld) [#/Vol] 7.6 10*3/uL 4.4-11.[address] [facility] Work Phone: Blood erythrocytes count (nu mber/volume)on 06-09-2021 RBC (Bld) [#/Vol] 3.97 10*6/uL 4.6-6.2 [facility] Work [facility]: Blood hemoglobin measurement (mass/volume)on 06-09-2021 Hemoglobin (Bld) [Mass/Vol] 12.5 g/dL 13.0-16.5 [facility] Work Phone: Blood lymphocytes/100 leukoc yteson 06-09-2021 Lymphocytes/100 WBC (Bld) 15.3 % 19-41 [facility] Work Phone: Blood monocytes/100 leukocyt eson 06-09-2021 Monocytes/100 WBC (Bld) 8.3 % 0-10 [facility] Work Phone: [phone] Blood platelet mean volumeon 06-09-2021 Platelet mean volume (Bld) [Entitic vol] 10.8 fL 6.2-12.0 [facility] Work Phone: CBC AND DIFFERENTIALon 06-09 DIFFERENTIAL SEE MANUAL DIFF Normal [facility] Comment on above: Performed By: #### C BCDF #### [address] [address] Erythrocyte distribution width (RBC) [Ratio] 14.5 % Normal 11.5 - 14.5 [facility] Comment on above: Performed By: #### C BCDF #### [address] [address] Hematocrit (Bld) [Volume fraction] 38.4 % Low 41.0 - 52.0 [facility] Comment on above: Performed By: #### C BCDF #### [address] [address] Hemoglobin (Bld) [Mass/Vol] 12.8 g/dL Low 13.5 - 17.5 [facility] Comment on above: Performed By: #### C BCDF #### [address] [address] MCHC (RBC) [Mass/Vol] 33.2 g/dL Normal 32.0 - 36.0 [facility] Comment on above: Performed By: #### C BCDF #### [address] [address] MCV (RBC) [Entitic vol] 94 fL Normal 80 - 100 [facility] Comment on above: Performed By: #### C BCDF #### [address] [address] Platelets (Bld) [#/Vol] 207 10*3/uL Normal 150 - 450 [facility] Comment on above: Performed By: #### C BCDF #### [address] [address] RBC 4.11 x10E12/L Low 4.50 - 5.90 [facility] Comment on above: Performed By: #### C BCDF #### [address] [address] WBC (Bld) [#/Vol] 8.7 10*3/uL Normal 4.4 - 11.3 [facility] Comment on above: Performed By: #### C BCDF #### [address] [address] Determination of erythrocyte mean corpuscular volume (MCV)on 06-09-2021 MCV (RBC) [Entitic vol] 96.7 fL 80-94 [facility] Work Phone: Direct bilirubinon 2 Bilirubin.direct [Mass/Vol] 0.17 mg/dL 0.00-0.30 [facility] Work Phone: Glucose Glucometer (BldC) [M ass/Vol]on 06-09-2021 Glucose [Mass/Vol] 374 mg/dL 74-[address] [facility] Work Phone: Comment on above: MANAGEMENT OF PATIEN T CARE PER NURSING PROTOCOL Hematocrit Auto (Bld) [Volum e fraction]on 06-09-2021 Hematocrit (Bld) [Volume fraction] 38.4 % 40-54 [facility] Work Phone: Laboratory - Chemistry and C hemistry - challengeon 06-09-2021 Natriuretic peptide B (Bld) [Mass/Vol] 81.2 pg/mL 0-100 [facility] Work Phone: CO2 [Moles/Vol] 24.0 mmol/L 21.0-32.0 [facility] Work Phone: Urea nitrogen/Creatinine [Mass ratio] 13.0 mg/mg 10-20 [facility] Work Phone: Laboratory - Hematology and Cell countson 06-09-2021 Erythrocyte distribution width (RBC) [Entitic vol] 50.4 fL 35.1-43.9 [facility] Work Phone: Erythrocyte distribution width (RBC) [Ratio] 14.1 % 11.6-14.6 [facility] Work Phone: Immature granulocytes/100 WBC (Bld) 1.200 % 0.0-0.9 [facility] Work Phone: Comment on above: IG% - Immature Granu locytes (promyelocytes, myelocytes and metamyelocytes) > 1% indicates that a LEFT SHIFT is Present. MCH (RBC) [Entitic mass] 31.5 pg 27.0-32.0 [facility] Work Phone: Nucleated RBC/100 WBC (Bld) [Ratio] 0 % 0-5 [facility] Work Phone: MAGNESIUMon 06-09-2021 Magnesium [Mass/Vol] 1.51 mg/dL Low 1.60 - 2.40 [facility] Comment on above: Performed By: #### M G #### [address] [address] MANUAL DIFFERENTIALon 2021 % BAND NEUTROPHIL 13.0 % Abnormal 0.0 - 5.0 [facility] Comment on above: Performed By: #### M DIFF #### [address] [address] % BASOPHIL 0.0 % Normal 0.0 - 2.0 [facility] Comment on above: Performed By: #### M DIFF #### [address] [address] % EOSINOPHIL 1.0 % Normal 0.0 - 6.0 [facility] Comment on above: Performed By: #### M DIFF #### [address] [address] % LYMPH-ATYPICAL 1.0 % Normal 0.0 - 2.0 [facility] Comment on above: Performed By: #### M DIFF #### [address] [address] % LYMPHOCYTE 12.0 % Normal 13.0 - 44.0 [facility] Comment on above: Performed By: #### M DIFF #### [address] [address] % MONOCYTE 5.0 % Normal 2.0 - 10.0 [facility] Comment on above: Performed By: #### M DIFF #### [address] [address] % MYELOCYTE 1.0 % Normal 0.0 - 0.0 [facility] Comment on above: Performed By: #### M DIFF #### [address] [address] % SEG NEUTROPHIL 67.0 % Normal 40.0 - 80.0 [facility] Comment on above: Result Comment: Perc ent differential counts (%) should be interpreted in the context of the absolute cell counts (cells/L). Performed By: #### M DIFF #### [place] [id number] ANC 6.96 x10E9/L Normal 1.20 - 7.70 [facility] Comment on above: Performed By: #### M DIFF #### [place] [id number] BAND NEUTROPHIL 1.13 x10E9/L High 0.00 - 0.70 [facility] Comment on above: Performed By: #### M DIFF #### [address] [address] BASOPHIL 0.00 x10E9/L Normal 0.00 - 0.10 [facility] Comment on above: Performed By: #### M DIFF #### [place] [id number] EOSINOPHIL 0.09 x10E9/L Normal 0.00 - 0.70 [facility] Comment on above: Performed By: #### M DIFF #### [address] [address] LYMPH-ATYPICAL 0.09 x10E9/L Normal 0.00 - 0.50 [facility] Comment on above: Performed By: #### M DIFF #### [address] [address] LYMPHOCYTE 1.04 x10E9/L Low 1.20 - 4.80 [facility] Comment on above: Performed By: #### M DIFF #### [address] [address] MONOCYTE 0.44 x10E9/L Normal 0.10 - 1.00 [facility] Comment on above: Performed By: #### M DIFF #### [address] [address] MYELOCYTE 0.09 x10E9/L Abnormal 0.00 - 0.00 [facility] Comment on above: Performed By: #### M DIFF #### [address] [address] SEG NEUTROPHIL 5.83 x10E9/L Normal 1.20 - 7.00 [facility] Comment on above: Performed By: #### M DIFF #### [address] [address] MCHC Auto (RBC) [Mass/Vol]on 06-09-2021 MCHC (RBC) [Mass/Vol] 32.6 g/dL 32-36 [facility] Work Phone: No Panel Informationon 06-09 Estimated Creatinine Clearance Calc 27.81 ml/min [facility] Work Phone: Estimated GFR (MDRD) Amer 28 mL/min >60 [facility] Work Phone: Comment on above: GFR Calc Estimated GFR (MDRD) Non-Af Amer 23 mL/min >60 [facility] Work Phone: Comment on above: Non- GFR Calc PHOSPHORUSon 06-09-2021 Phosphate [Mass/Vol] 2.2 mg/dL Low 2.5 - 4.9 [facility] Comment on above: Result Comment: The performance characteristics of phosphorus testing in heparinized plasma have been validated by the individual laboratory site where testing is performed. Testing on heparinized plasma is not approved by the FDA; however, such approval is not necessary. Performed By: #### M DIFF #### [address] [address] Platelets bldon 06-09-2021 Platelets (Bld) [#/Vol] 185 10*3/uL 150-450 [facility] Work Phone: RED CELL MORPHOLOGYon 2021 RBC morphology finding Nom (Bld) NORMAL Normal [facility] Comment on above: Performed By: #### M DIFF #### [address] [address] Serum or plasma C reactive p rotein measurement (mass/volume)on 06-09-2021 CRP [Mass/Vol] mg/L 0.0-3.0 [facility] Work Phone: Comment on above: C-Reactive Protein ( CRP) provides useful information for thediagnosis, therapy and monitoring of inflammatory processesand associated diseases. For the evaluation of Relative Riskfor Cardiovascular Disease, a High Sensitivity CRP (HSCRP)should be ordered. Serum or plasma calcium caity urement (mass/volume)on 06-09-2021 Calcium [Mass/Vol] 10.7 mg/dL 8.5-10.[address] [facility] Work Phone: Serum or plasma creatinine m easurement (mass/volume)on 06-09-2021 Creatinine [Mass/Vol] 2.99 mg/dL 0.70-1.30 [facility] Work Phone: Comment on above: The validity of the calculated GFR & GFRAA in patients over 70 years has not been determined. Clinical correlation is essential. Serum or plasma ferritin linda surement (mass/volume)on 06-09-2021 Ferritin [Mass/Vol] 454 ng/mL 26-388 [facility] Work Phone: Serum or plasma urea nitroge n measurement (mass/volume)on 06-09-2021 Urea nitrogen [Mass/Vol] 39 mg/dL 7-18 [facility] Work Phone: TACROLIMUSon 06-09-2021 Tacrolimus (Bld) [Mass/Vol] 13.6 ng/mL Normal 2.0 - 15.0 [facility] Comment on above: Result Comment: NOTE : Result was obtained using a chemiluminescent microparticle immunoassay (CMIA) on the [employer] i system. Optimal therapeutic ranges for immuno- suppressant drugs depend upon an individual patient's current clinical state, type of organ transplant, time post-transplant, co-administration of other immunosuppressants, and other clinical factors. The results of this test should be correlated with additional clinical and laboratory data before changes in treatment regimens are made. Performed By: #### A P #### [id number] [place] [address] Thin prep Papanicolaou smear with manual screeningon 06-09-2021 Thin prep Papanicolaou smear with manual screening 240 U/L 87-241 [facility] Work Phone: Thin prep Papanicolaou smear with manual screening 5 5-15 [facility] Work Phone: Electrocardiogram 12 Leadon 06-08-2021 Electrocardiogram 12 Lead Ventricular Rate 77 Atrial Rate 77 P-R Interval 196 QRS Duration 100 Q-T Interval 380 QTC Calculation(Bazett) 430 P [place] 38 R [place] -80 T [place] 82 QRS Count 13 Q Onset 209 P Onset 111 P Offset 171 T Offset 399 QTC Fredericia 412 Diagnosis Class Normal Diagnosis Please see physician note for formal interpretation confirmed by Scribe Confirmed by EVI MONGE () on 06/14/2021 10:43:[address] [facility] ALBUMINon 06-06-2021 Albumin [Mass/Vol] 4.0 g/dL Normal 3.4 - 5.0 [facility] Comment on above: Performed By: #### C BCDF #### [place] [address] ALKALINE PHOSPHATASEon 06-06 ALP [Catalytic activity/Vol] 102 U/L Normal 33 - 120 [facility] Comment on above: Performed By: #### T BILI #### [address] [address] Zay 06-06-2021 ALT [Catalytic activity/Vol] 16 U/L Normal 10 - 52 [facility] Comment on above: Result Comment: Lila ents treated with Sulfasalazine may generate falsely decreased results for ALT. Performed By: #### A LT #### [address] [address] Flavia 06-06-2021 AST [Catalytic activity/Vol] 12 U/L Normal 9 - 39 [facility] Comment on above: Performed By: #### C BCDF #### [address] [address] BASIC METABOLIC PANELon Anion gap [Moles/Vol] 12 mmol/L Normal 10 - 20 [facility] Comment on above: Performed By: #### M DIFF #### [address] [address] Calcium [Mass/Vol] 11.4 mg/dL High 8.6 - 10.3 [facility] Comment on above: Performed By: #### M DIFF #### [address] [address] Chloride [Moles/Vol] 108 mmol/L High 98 - 107 [facility] Comment on above: Performed By: #### M DIFF #### [address] [address] Creatinine [Mass/Vol] 3.44 mg/dL High 0.50 - 1.30 [facility] Comment on above: Performed By: #### M DIFF #### [address] [address] GFR/1.73 sq M.predicted among non-blacks MDRD (S/P/Bld) [Vol rate/Area] 20 mL/min/{1.73_m2} Abnormal >90 [facility] Comment on above: Result Comment: CALC ULATIONS OF ESTIMATED GFR ARE PERFORMED USING THE 2020 CKD-EPI STUDY REFIT EQUATION WITHOUT THE RACE VARIABLE FOR THE IDMS-TRACEABLE CREATININE METHODS. https://jasn.asnjournals.org/content/early/ASN.15300 61324 Performed By: #### M DIFF #### [address] [address] Glucose [Mass/Vol] 247 mg/dL High 74 - 99 [facility] Comment on above: Performed By: #### M DIFF #### [address] [address] HCO3 (Bld) [Moles/Vol] 21 mmol/L Normal 21 - 32 [facility] Comment on above: Performed By: #### M DIFF #### [address] [address] Potassium [Moles/Vol] 5.3 mmol/L Normal 3.5 - 5.3 [facility] Comment on above: Performed By: #### M DIFF #### [address] [address] Sodium [Moles/Vol] 136 mmol/L Normal 136 - 145 [facility] Comment on above: Performed By: #### M DIFF #### [address] [address] Urea nitrogen [Mass/Vol] 40 mg/dL High 6 - 23 [facility] Comment on above: Performed By: #### M DIFF #### [address] [address] BILIRUBIN,TOTALon 06-06-2021 Bilirubin [Mass/Vol] 0.6 mg/dL Normal 0.0 - 1.2 [facility] Comment on above: Performed By: #### T BILI #### [address] [address] CBC AND DIFFERENTIALon 06-06 DIFFERENTIAL SEE MANUAL DIFF Normal [facility] Comment on above: Performed By: #### T BILI #### [address] [address] Erythrocyte distribution width (RBC) [Ratio] 14.8 % High 11.5 - 14.5 [facility] Comment on above: Performed By: #### T BILI #### [address] [address] Hematocrit (Bld) [Volume fraction] 38.8 % Low 41.0 - 52.0 [facility] Comment on above: Performed By: #### T BILI #### [address] [address] Hemoglobin (Bld) [Mass/Vol] 12.8 g/dL Low 13.5 - 17.5 [facility] Comment on above: Performed By: #### T BILI #### [address] [address] MCHC (RBC) [Mass/Vol] 33.0 g/dL Normal 32.0 - 36.0 [facility] Comment on above: Performed By: #### T BILI #### [address] [address] MCV (RBC) [Entitic vol] 94 fL Normal 80 - 100 [facility] Comment on above: Performed By: #### T BILI #### [address] [address] NUCLEATED RBC 0.1 /[address] [facility] Comment on above: Performed By: #### T BILI #### [address] [address] Platelets (Bld) [#/Vol] 210 10*3/uL Normal 150 - 450 [facility] Comment on above: Performed By: #### T BILI #### [address] [address] RBC 4.12 x10E12/L Low 4.50 - 5.90 [facility] Comment on above: Performed By: #### T BILI #### [address] [address] WBC (Bld) [#/Vol] 8.6 10*3/uL Normal 4.4 - 11.3 [facility] Comment on above: Performed By: #### T BILI #### [address] [address] MAGNESIUMon 06-06-2021 Magnesium [Mass/Vol] 1.79 mg/dL Normal 1.60 - 2.40 [facility] Comment on above: Performed By: #### C BCDF #### [address] [address] MANUAL DIFFERENTIALon 2021 % BAND NEUTROPHIL 13.0 % Abnormal 0.0 - 5.0 [facility] Comment on above: Performed By: #### T BILI #### [address] [address] % BASOPHIL 0.0 % Normal 0.0 - 2.0 [facility] Comment on above: Performed By: #### T BILI #### [address] [address] % EOSINOPHIL 2.0 % Normal 0.0 - 6.0 [facility] Comment on above: Performed By: #### T BILI #### [address] [address] % LYMPHOCYTE 16.0 % Normal 13.0 - 44.0 [facility] Comment on above: Performed By: #### T BILI #### [address] [address] % METAMYELOCYTE 1.0 % Normal 0.0 - 0.0 [facility] Comment on above: Performed By: #### T BILI #### [address] [address] % MONOCYTE 5.0 % Normal 2.0 - 10.0 [facility] Comment on above: Performed By: #### T BILI #### [address] [address] % SEG NEUTROPHIL 63.0 % Normal 40.0 - 80.0 [facility] Comment on above: Result Comment: Perc ent differential counts (%) should be interpreted in the context of the absolute cell counts (cells/L). Performed By: #### T BILI #### [address] [address] ANC 6.54 x10E9/L Normal 1.20 - 7.70 [facility] Comment on above: Performed By: #### T BILI #### [address] [address] BAND NEUTROPHIL 1.12 x10E9/L High 0.00 - 0.70 [facility] Comment on above: Performed By: #### T BILI #### [address] [address] BASOPHIL 0.00 x10E9/L Normal 0.00 - 0.10 [facility] Comment on above: Performed By: #### T BILI #### [address] [address] EOSINOPHIL 0.17 x10E9/L Normal 0.00 - 0.70 [facility] Comment on above: Performed By: #### T BILI #### [address] [address] LYMPHOCYTE 1.38 x10E9/L Normal 1.20 - 4.80 [facility] Comment on above: Performed By: #### T BILI #### [address] [address] METAMYELOCYTE 0.09 x10E9/L Abnormal 0.00 - 0.00 [facility] Comment on above: Performed By: #### T BILI #### [address] [address] MONOCYTE 0.43 x10E9/L Normal 0.10 - 1.00 [facility] Comment on above: Performed By: #### T BILI #### [id number] SEG NEUTROPHIL 5.42 x10E9/L Normal 1.20 - 7.00 [facility] Comment on above: Performed By: #### T BILI #### [id number] PHOSPHORUSon 06-06-2021 Phosphate [Mass/Vol] 2.7 mg/dL Normal 2.5 - 4.9 [facility] Comment on above: Result Comment: The performance characteristics of phosphorus testing in heparinized plasma have been validated by the individual laboratory site where testing is performed. Testing on heparinized plasma is not approved by the FDA; however, such approval is not necessary. Performed By: #### T BILI #### [id number] RED CELL MORPHOLOGYon 2021 RBC morphology finding Nom (Bld) NORMAL Normal [facility] Comment on above: Performed By: #### T BILI #### [id number] TACROLIMUSon 06-06-2021 Tacrolimus (Bld) [Mass/Vol] 27.0 ng/mL Critically high 2.0 - 15.0 [facility] Comment on above: Order Comment: CRIT [id number] CALLED TO GISSELL SIMPSON, 06/06/2021 19:40 Result Comment: NOTE : Result was obtained using a chemiluminescent microparticle immunoassay (CMIA) on the [employer] system. Optimal therapeutic ranges for immuno- suppressant drugs depend upon an individual patient's current clinical state, type of organ transplant, time post-transplant, co-administration of other immunosuppressants, and other clinical factors. The results of this test should be correlated with additional clinical and laboratory data before changes in treatment regimens are made. CRIT [id number] CALLED TO GISSELL SIMPSON, 06/06/2021 19:40 Performed By: #### T BILDelon #### [address] [address] BK VIRUS BY PCR,QUANT,PLASMA on 06-03-2021 BK VIRUS PCR QUANT Not detected Normal [facility] Comment on above: Result Comment: To c onvert IU/ml to copies/ml multiply by 3.124 Ref Value Not Detected Performed By: #### C BCDF #### [address] [address] BK VIRUS,PCR Not Calculated Normal [facility] Comment on above: Result Comment: Repo rtable range: 500-20,000,000 IU/mL The BK VIRUS DNA Quantitative test is a PCR assay targeting the VP2 gene using [employer] ASR reagents. The limit of quantification for this assay has been determined to be 500 IU/mL in Plasma. If the assay DETECTED the presence of the virus, but was not able to accurately quantify the number of copies, the test result will be reported as NOT QUANTIFIED. A negative result does not exclude the possibility of BK virus infection since very low levels of infection or sampling error may cause a false negative result. This assay is intended for use in conjunction with clinical presentation and other laboratory markers of disease progression for the clinical management of BKV infected patients. This test was developed and its performance characteristics validated by the [facility], Department of Pathology, [place], [place]. It has not been cleared or approved by the [place] Food and Drug Administration. The FDA has determined that such clearance is not necessary. It should not be regarded as investigational or for research use. Performed By: #### C BCDF #### [address] [address] ALBUMINon 06-02-2021 Albumin [Mass/Vol] 4.0 g/dL Normal 3.4 - 5.0 [facility] Comment on above: Performed By: #### M DIFF #### [address] [address] ALKALINE PHOSPHATASEon 06-02 ALP [Catalytic activity/Vol] 102 U/L Normal 33 - 120 [facility] Comment on above: Performed By: #### M DIFF #### [address] [address] Zay 06-02-2021 ALT [Catalytic activity/Vol] 14 U/L Normal 10 - 52 [facility] Comment on above: Result Comment: Lila ents treated with Sulfasalazine may generate falsely decreased results for ALT. Performed By: #### A LT #### [address] [address] Flavia 06-02-2021 AST [Catalytic activity/Vol] 12 U/L Normal 9 - 39 [facility] Comment on above: Performed By: #### T BILI #### [address] [address] BASIC METABOLIC PANELon 03- Anion gap [Moles/Vol] 9 mmol/L Low 10 - 20 [facility] Comment on above: Performed By: #### B MP #### [address] [address] Calcium [Mass/Vol] 11.0 mg/dL High 8.6 - 10.3 [facility] Comment on above: Performed By: #### B MP #### [address] [address] Chloride [Moles/Vol] 110 mmol/L High 98 - 107 [facility] Comment on above: Performed By: #### B MP #### [address] [address] Creatinine [Mass/Vol] 2.70 mg/dL High 0.50 - 1.30 [facility] Comment on above: Performed By: #### B MP #### [address] [address] GFR/1.73 sq M.predicted among non-blacks MDRD (S/P/Bld) [Vol rate/Area] 26 mL/min/{1.73_m2} Abnormal >90 [facility] Comment on above: Result Comment: CALC ULATIONS OF ESTIMATED GFR ARE PERFORMED USING THE 2020 CKD-EPI STUDY REFIT EQUATION WITHOUT THE RACE VARIABLE FOR THE IDMS-TRACEABLE CREATININE METHODS. https://jasn.asnjournals.org/content//ASN.45378 [address] Performed By: #### B MP #### [address] [address] Glucose [Mass/Vol] 88 mg/dL Normal 74 - 99 [facility] Comment on above: Performed By: #### B MP #### [address] [address] HCO3 (Bld) [Moles/Vol] 24 mmol/L Normal 21 - 32 [facility] Comment on above: Performed By: #### B MP #### [address] [address] Potassium [Moles/Vol] 4.7 mmol/L Normal 3.5 - 5.3 [facility] Comment on above: Performed By: #### B MP #### [address] [address] Sodium [Moles/Vol] 138 mmol/L Normal 136 - 145 [facility] Comment on above: Performed By: #### B MP #### [address] [address] Urea nitrogen [Mass/Vol] 32 mg/dL High 6 - 23 [facility] Comment on above: Performed By: #### B MP #### [address] [address] BILIRUBIN,TOTALon 06-02-2021 Bilirubin [Mass/Vol] 0.6 mg/dL Normal 0.0 - 1.2 [facility] Comment on above: Performed By: #### T BILI #### [address] [address] CBC AND DIFFERENTIALon 06-02 DIFFERENTIAL SEE MANUAL DIFF Normal [facility] Comment on above: Performed By: #### M DIFF #### [address] [address] Erythrocyte distribution width (RBC) [Ratio] 14.8 % High 11.5 - 14.5 [facility] Comment on above: Performed By: #### M DIFF #### [address] [address] Hematocrit (Bld) [Volume fraction] 38.9 % Low 41.0 - 52.0 [facility] Comment on above: Performed By: #### M DIFF #### [address] [address] Hemoglobin (Bld) [Mass/Vol] 12.8 g/dL Low 13.5 - 17.5 [facility] Comment on above: Performed By: #### M DIFF #### [address] [address] MCHC (RBC) [Mass/Vol] 33.0 g/dL Normal 32.0 - 36.0 [facility] Comment on above: Performed By: #### M DIFF #### [address] [address] MCV (RBC) [Entitic vol] 94 fL Normal 80 - 100 [facility] Comment on above: Performed By: #### M DIFF #### [address] [address] NUCLEATED RBC 0.1 /[address] [facility] Comment on above: Performed By: #### M DIFF #### [address] [address] Platelets (Bld) [#/Vol] 227 10*3/uL Normal 150 - 450 [facility] Comment on above: Performed By: #### M DIFF #### [address] [address] RBC 4.13 x10E12/L Low 4.50 - 5.90 [facility] Comment on above: Performed By: #### M DIFF #### [address] [address] WBC (Bld) [#/Vol] 8.3 10*3/uL Normal 4.4 - 11.3 [facility] Comment on above: Performed By: #### M DIFF #### [address] [address] FERRITINon 06-02-2021 FERRITIN 489 ug/L High 20 - 300 [facility] Comment on above: Performed By: #### M DIFF #### [address] [address] IRON + TIBCon 06-02-2021 % SATURATION 40 % Normal 25 - 45 [facility] Comment on above: Performed By: #### C BCDF #### [address] [address] Iron [Mass/Vol] 87 ug/dL Normal 35 - 150 [facility] Comment on above: Performed By: #### C BCDF #### [address] [address] TIBC 219 ug/dL Low 240 - 445 [facility] Comment on above: Performed By: #### C BCDF #### [address] [address] LIPID PANEL (CORONARY RISK 2 )on 06-02-2021 Cholesterol [Mass/Vol] 90 mg/dL Normal 0 - 199 [facility] Comment on above: Result Comment: . AGE DESIRABLE BORDERLINE HIGH HIGH 0-19 Y 0 - 169 170 - 199 >/= 200 20-24 Y 0 - 189 190 - 224 >/= 225 >24 Y 0 - 199 200 - 239 >/= 240 All ranges are based on fasting samples. Specific therapeutic targets will vary based on patient-specific cardiac risk. . Pediatric guidelines reference:Pediatrics 2011, 128(S5). Adult guidelines reference: NCEP ATPIII Guidelines, ABE 2001, 258:2486-97 . Venipuncture immediately after or during the administration of Metamizole may lead to falsely low results. Testing should be performed immediately prior to Metamizole dosing. Performed By: #### C BCDF #### [address] [address] Cholesterol in HDL [Mass/Vol] 38.0 mg/dL Abnormal [facility] Comment on above: Result Comment: . AGE VERY LOW LOW NORMAL HIGH 0-19 Y < 35 < 40 40-45 ---- 20-24 Y ---- < 40 >45 ---- >24 Y ---- < 40 40-60 >60 . Performed By: #### C BCDF #### [address] [address] Cholesterol in LDL [Mass/Vol] 34 mg/dL Normal 0 - 99 [facility] Comment on above: Result Comment: . NEAR BORD AGE DESIRABLE OPTIMAL HIGH HIGH VERY HIGH 0-19 Y 0 - 109 --- 110-129 >/= 130 ---- 20-24 Y 0 - 119 --- 120-159 >/= 160 ---- >24 Y 0 - 99 100-129 130-159 160-189 >/=190 . Performed By: #### C BCDF #### [address] [address] Cholesterol in VLDL [Mass/Vol] 18 mg/dL Normal 0 - 40 [facility] Comment on above: Performed By: #### C BCDF #### [address] [address] Cholesterol.total/Chol esterol in HDL [Mass ratio] 2.4 {ratio} Normal [facility] Comment on above: Result Comment: REF VALUES DESIRABLE < 3.4 HIGH RISK > 5.0 Performed By: #### C BCDF #### [address] [address] Triglyceride [Mass/Vol] 90 mg/dL Normal 0 - 149 [facility] Comment on above: Result Comment: . AGE DESIRABLE BORDERLINE HIGH HIGH VERY HIGH 0 D-90 D 19 - 174 ---- ---- ---- 91 D- 9 Y 0 - 74 75 - 99 >/= 100 ---- 10-19 Y 0 - 89 90 - 129 >/= 130 ---- 20-24 Y 0 - 114 115 - 149 >/= 150 ---- >24 Y 0 - 149 150 - 199 200- 499 >/= 500 . Venipuncture immediately after or during the administration of Metamizole may lead to falsely low results. Testing should be performed immediately prior to Metamizole dosing. Performed By: #### C BCDF #### [address] [address] MAGNESIUMon 06-02-2021 Magnesium [Mass/Vol] 1.78 mg/dL Normal 1.60 - 2.40 [facility] Comment on above: Performed By: #### C BCDF #### [address] [address] MANUAL DIFFERENTIALon 2021 % BAND NEUTROPHIL 3.0 % Normal 0.0 - 5.0 [facility] Comment on above: Performed By: #### T BILI #### [address] [address] % BASOPHIL 0.0 % Normal 0.0 - 2.0 [facility] Comment on above: Performed By: #### T BILI #### [address] [address] % EOSINOPHIL 5.0 % Normal 0.0 - 6.0 [facility] Comment on above: Performed By: #### T BILI #### [address] [address] % LYMPHOCYTE 18.0 % Normal 13.0 - 44.0 [facility] Comment on above: Performed By: #### T BILI #### [address] [address] % METAMYELOCYTE 4.0 % Normal 0.0 - 0.0 [facility] Comment on above: Performed By: #### T BILI #### [address] [address] % MONOCYTE 3.0 % Normal 2.0 - 10.0 [facility] Comment on above: Performed By: #### T BILI #### [address] [address] % SEG NEUTROPHIL 67.0 % Normal 40.0 - 80.0 [facility] Comment on above: Result Comment: Perc ent differential counts (%) should be interpreted in the context of the absolute cell counts (cells/L). Performed By: #### T BILI #### [address] [address] ANC 5.81 x10E9/L Normal 1.20 - 7.70 [facility] Comment on above: Performed By: #### T BILI #### [address] [address] BAND NEUTROPHIL 0.25 x10E9/L Normal 0.00 - 0.70 [facility] Comment on above: Performed By: #### T BILI #### [address] [address] BASOPHIL 0.00 x10E9/L Normal 0.00 - 0.10 [facility] Comment on above: Performed By: #### T BILI #### [address] [address] EOSINOPHIL 0.42 x10E9/L Normal 0.00 - 0.70 [facility] Comment on above: Performed By: #### T BILI #### [address] [address] LYMPHOCYTE 1.49 x10E9/L Normal 1.20 - 4.80 [facility] Comment on above: Performed By: #### T BILI #### [address] [address] METAMYELOCYTE 0.33 x10E9/L Abnormal 0.00 - 0.00 [facility] Comment on above: Performed By: #### T BILI #### [address] [address] MONOCYTE 0.25 x10E9/L Normal 0.10 - 1.00 [facility] Comment on above: Performed By: #### T BILI #### [address] [address] SEG NEUTROPHIL 5.56 x10E9/L Normal 1.20 - 7.00 [facility] Comment on above: Performed By: #### T BILI #### [address] [address] PHOSPHORUSon 06-02-2021 Phosphate [Mass/Vol] 2.1 mg/dL Low 2.5 - 4.9 [facility] Comment on above: Result Comment: The performance characteristics of phosphorus testing in heparinized plasma have been validated by the individual laboratory site where testing is performed. Testing on heparinized plasma is not approved by the FDA; however, such approval is not necessary. Performed By: #### C BCDF #### [address] [address] RED CELL MORPHOLOGYon 2021 RBC morphology finding Nom (Bld) NORMAL Normal [facility] Comment on above: Performed By: #### A P #### [address] [address] TACROLIMUSon 06-02-2021 Tacrolimus (Bld) [Mass/Vol] 13.8 ng/mL Normal 2.0 - 15.0 [facility] Comment on above: Result Comment: NOTE : Result was obtained using a chemiluminescent microparticle immunoassay (CMIA) on the [employer] system. Optimal therapeutic ranges for immuno- suppressant drugs depend upon an individual patient's current clinical state, type of organ transplant, time post-transplant, co-administration of other immunosuppressants, and other clinical factors. The results of this test should be correlated with additional clinical and laboratory data before changes in treatment regimens are made. Performed By: #### F [id number] #### [facility] [address] [place], [place] [id number] TOTAL PROTEIN, URINE SPOTon 06-02-2021 CREATININE,URINE Canceled Normal [facility] Comment on above: Order Comment: TEST TOTAL PROTEIN, URINE SPOT WAS CANCELLED, 06/02/2021 18:07 no urinecollected and /or received into the lab. Performed By: #### C BCDF #### [address] [address] T. PROTEIN/CREAT RATIO Canceled Normal [facility] Comment on above: Order Comment: TEST TOTAL PROTEIN, URINE SPOT WAS CANCELLED, 06/02/2021 18:07 no urinecollected and /or received into the lab. Performed By: #### C BCDF #### [address] [address] TOTAL PROT,URINE SPOT Canceled Normal [facility] Comment on above: Order Comment: TEST TOTAL PROTEIN, URINE SPOT WAS CANCELLED, 06/02/2021 18:07 no urinecollected and /or received into the lab. Performed By: #### C BCDF #### [address] [address] TRANSFERRINon 03-03-2022 Transferrin [Mass/Vol] 167 mg/dL Low 200 - 360 [facility] Comment on above: Performed By: #### M DIFF #### [address] [address] URIC ACIDon 06-02-2021 Urate [Mass/Vol] 6.8 mg/dL Normal 4.0 - 7.5 [facility] Comment on above: Result Comment: Lyndsey puncture immediately after or during the administration of Metamizole may lead to falsely low results. Testing should be performed immediately prior to Metamizole dosing. Performed By: #### C BCDF #### [address] [address] Absolute lymphocyte counton 05-30-2021 Lymphocytes Auto (Unsp spec) [#/Vol] 1.04 10*3/uL 0.83-4.51 [facility] Work Phone: Basophil percentageon 2021 Basophil percentage 2.0 mg/dL 2.5-4.9 [facility] Work Phone: [phone] Basophils/100 WBC (Bld) 0.8 % 0-1 [facility] Work Phone: Bilirubin [Mass/Vol] 0.40 mg/dL 0.20-1.00 [facility] Work Phone: Comment on above: For patients on eltr ombopag therapy, use of Dimension [place] TBIL is not recommended. Chloride [Moles/Vol] 112 mmol/L 98-107 [facility] Work Phone: Eosinophils/100 WBC (Bld) 2.4 % 0-5 [facility] Work Phone: Glucose [Mass/Vol] 121 mg/dL 74-[address] [facility] Work Phone: Comment on above: Fasting Glucose resu lt from 100 to 125 mg/dL suggests IMPAIRED HOMEOSTASIS per A.D.A. criteria. Neutrophils (Bld) [#/Vol] 4.5 10*3/uL 2.0-7.7 [facility] Work Phone: Neutrophils/100 WBC (Bld) 71.8 % 47-70 [facility] Work Phone: [phone] Potassium [Moles/Vol] 4.7 mmol/L 3.5-5.1 [place] [facility] Work Phone: Protein [Mass/Vol] 5.7 g/dL 6.4-8.2 [place] [facility] Work Phone: Sodium [Moles/Vol] 138 mmol/L 136-145 [place] [facility] Work Phone: WBC (Bld) [#/Vol] 6.3 10*3/uL 4.4-11.0 [place] [facility] Work Phone: Blood erythrocytes count (nu mber/volume)on 05-30-2021 RBC (Bld) [#/Vol] 3.71 10*6/uL 4.6-6.2 [facility]: Blood hemoglobin measurement (mass/volume)on 05-30-2021 Hemoglobin (Bld) [Mass/Vol] 11.8 g/dL 13.0-16.5 [facility] Work Phone: Blood lymphocytes/100 leukoc yteson 05-30-2021 Lymphocytes/100 WBC (Bld) 16.5 % 19-41 [facility] Work Phone: [phone] Blood monocytes/100 leukocyt eson 05-30-2021 Monocytes/100 WBC (Bld) 7.4 % 0-10 [facility] Work Phone: Blood platelet mean volumeon 05-30-2021 Platelet mean volume (Bld) [Entitic vol] 10.6 fL 6.2-12.0 [facility] Work Phone: Determination of erythrocyte mean corpuscular volume (MCV)on 05-30-2021 MCV (RBC) [Entitic vol] 96.2 fL 80-94 [facility] Work Phone: Direct bilirubinon 2 Bilirubin.direct [Mass/Vol] 0.12 mg/dL 0.00-0.30 [facility] Work Phone: Hematocrit Auto (Bld) [Volum e fraction]on 05-30-2021 Hematocrit (Bld) [Volume fraction] 35.7 % 40-54 [facility] Work Phone: INR in Blood by Coagulation assayon 05-30-2021 INR Coag (Bld) [Relative time] 1.1 {INR} [facility] Work Phone: Laboratory - Chemistry and C hemistry - challengeon 05-30-2021 ALP [Catalytic activity/Vol] 105 U/L 45-117 [facility] Work Phone: ALT [Catalytic activity/Vol] 23 U/L 16-61 [facility] Work Phone: CO2 [Moles/Vol] 22.0 mmol/L 21.0-32.0 [facility] Work Phone: [phone] Globulin (S) [Mass/Vol] 2.8 g/dL 2.2-4.2 [facility] Work Phone: Magnesium [Mass/Vol] 1.9 mg/dL 1.6-2.6 [facility] Work Phone: Laboratory - Coagulationon 0 05-30-2021 aPTT Coag (Bld) [Time] 29.7 s 24.1-36.2 [facility] Work Phone: PT Coag (PPP) [Time] 13.3 s 11.7-14.9 [facility] Work Phone: Laboratory - Hematology and Cell countson 05-30-2021 Erythrocyte distribution width (RBC) [Entitic vol] 50.4 fL 35.1-43.9 [facility] Work Phone: Erythrocyte distribution width (RBC) [Ratio] 14.2 % 11.6-14.6 [facility] Work Phone: Immature granulocytes/100 WBC (Bld) 1.100 % 0.0-0.9 [facility] Work Phone: Comment on above: IG% - Immature Granu locytes (promyelocytes, myelocytes and metamyelocytes) > 1% indicates that a LEFT SHIFT is Present. MCH (RBC) [Entitic mass] 31.8 pg 27.0-32.0 [facility] Work Phone: Nucleated RBC/100 WBC (Bld) [Ratio] 0 % 0-5 [facility] Work Phone: MCHC Auto (RBC) [Mass/Vol]on 05-30-2021 MCHC (RBC) [Mass/Vol] 33.1 g/dL 32-36 [facility] Work Phone: No Panel Informationon 05-30 Estimated GFR (MDRD) Amer 32 mL/min >60 [facility] Work Phone: Comment on above: GFR Calc Estimated GFR (MDRD) Non-Af Amer 26 mL/min >60 [facility] Work Phone: Comment on above: Non- GFR Calc Miscellaneous Test See comment [facility] Work Phone: Comment on above: TEST RESULT LIMITSBK V DNA, Quant PCR, Plasma Negative IU/mL Negative No BK DNA detected. The linear range of the assay is 22 - 100,000,000 IU/mL. [facility]. ORIGINAL REPORT ON FILE IN LAB CONTAINS ADDITIONAL TEST SITE INFORMATION. Tacrolimus (Prograf) Level 8.8 ng/mL 2.0-20.0 [facility] Work Phone: Comment on above: Trough (immediately following transplant) 15.0 Trough (steady state, 2 weeks or more after transplant): 3.0 - 8.0 Performed by LC-MS/MS technology.Performed at: - [facility] [id number] [place], [place] [id number] Director: Shellie Holguin MD, Phone: [phone] Platelets bldon 05-30-2021 Platelets (Bld) [#/Vol] 203 10*3/uL 150-450 [facility] Work Phone: Serum or plasma albumin caity urement (mass/volume)on 05-30-2021 Albumin [Mass/Vol] 2.9 g/dL 3.2-5.[address] [facility] Work Phone: Serum or plasma calcium caity urement (mass/volume)on 05-30-2021 Calcium [Mass/Vol] 10.4 mg/dL 8.5-10.[address] [facility] Work Phone: Serum or plasma creatinine m easurement (mass/volume)on 05-30-2021 Creatinine [Mass/Vol] 2.65 mg/dL 0.70-1.30 [facility] Work Phone: Comment on above: The validity of the calculated GFR & GFRAA in patients over 70 years has not been determined. Clinical correlation is essential. Serum or plasma urea nitroge n measurement (mass/volume)on 05-30-2021 Urea nitrogen [Mass/Vol] 28 mg/dL 7-18 [facility] Work Phone: Thin prep Papanicolaou smear with manual screeningon 05-30-2021 Thin prep Papanicolaou smear with manual screening 12 U/L 15-37 [facility] Work Phone: Thin prep Papanicolaou smear with manual screening 4 5-15 [facility] Work Phone: Basophil percentageon 2021 Basophil percentage 2.4 mg/dL 2.5-4.9 [facility] Work Phone: Bilirubin [Mass/Vol] 0.40 mg/dL 0.20-1.00 [facility] Work [facility]: Comment on above: For patients on eltr ombopag therapy, use of Dimension [place] TBIL is not recommended. Chloride [Moles/Vol] 113 mmol/L 98-[address] [facility] Work Phone: Glucose [Mass/Vol] 96 mg/dL 74-[address] [facility] Work Phone: Potassium [Moles/Vol] 4.8 mmol/L 3.5-5.1 [place] [facility] Work Phone: Protein [Mass/Vol] 5.7 g/dL 6.4-8.2 [facility] Work Phone: Sodium [Moles/Vol] 139 mmol/L 136-[address] [facility] Work Phone: WBC (Bld) [#/Vol] 6.5 10*3/uL 4.4-11.[address] [facility] Work Phone: Blood erythrocytes count (nu mber/volume)on 05-28-2021 RBC (Bld) [#/Vol] 3.75 10*6/uL 4.6-6.2 [facility] Work Phone: Blood hemoglobin measurement (mass/volume)on 05-28-2021 Hemoglobin (Bld) [Mass/Vol] 11.8 g/dL 13.0-16.5 [facility] Work Phone: Blood platelet mean volumeon 05-28-2021 Platelet mean volume (Bld) [Entitic vol] 10.2 fL 6.2-12.0 [facility] Work Phone: Determination of erythrocyte mean corpuscular volume (MCV)on 05-28-2021 MCV (RBC) [Entitic vol] 95.7 fL 80-94 [facility] Work Phone: Direct bilirubinon 2 Bilirubin.direct [Mass/Vol] 0.14 mg/dL 0.00-0.30 [facility] Work Phone: Hematocrit Auto (Bld) [Volum e fraction]on 05-28-2021 Hematocrit (Bld) [Volume fraction] 35.9 % 40-54 [facility] Work Phone: INR in Blood by Coagulation assayon 05-28-2021 INR Coag (Bld) [Relative time] 1.0 {INR} [facility] Work Phone: Laboratory - Chemistry and C hemistry - challengeon 05-28-2021 ALP [Catalytic activity/Vol] 102 U/L 45-117 [facility] Work Phone: ALT [Catalytic activity/Vol] 23 U/L 16-61 [facility] Work Phone: CO2 [Moles/Vol] 23.0 mmol/L 21.0-32.0 [facility] Work Phone: Globulin (S) [Mass/Vol] 2.8 g/dL 2.2-4.2 [facility] Work Phone: Magnesium [Mass/Vol] 2.0 mg/dL 1.6-2.6 [facility] Work Phone: Laboratory - Coagulationon 0 05-28-2021 aPTT Coag (Bld) [Time] 28.7 s 24.1-36.2 [facility] Work Phone: PT Coag (PPP) [Time] 13.0 s 11.7-14.9 [facility] Work Phone: Laboratory - Hematology and Cell countson 05-28-2021 Erythrocyte distribution width (RBC) [Entitic vol] 50.4 fL 35.1-43.9 [facility] Work Phone: Erythrocyte distribution width (RBC) [Ratio] 14.3 % 11.6-14.6 [facility] Work Phone: MCH (RBC) [Entitic mass] 31.5 pg 27.0-32.0 [facility] Work Phone: MCHC Auto (RBC) [Mass/Vol]on 05-28-2021 MCHC (RBC) [Mass/Vol] 32.9 g/dL 32-36 [facility] Work Phone: No Panel Informationon 05-28 Estimated GFR (MDRD) Amer 35 mL/min >60 [facility] Work Phone: Comment on above: GFR Calc Estimated GFR (MDRD) Non-Af Amer 29 mL/min >60 [facility] Work Phone: Comment on above: Non- GFR Calc Tacrolimus (Prograf) Level 8.0 ng/mL 2.0-20.0 [facility] Work Phone: Comment on above: Trough (immediately following transplant) 15.0 Trough (steady state, 2 weeks or more after transplant): 3.0 - 8.0 Performed by LC-MS/MS technology.Performed at: [employer] [id number] Director: Shellie Holguin MD, Phone: [phone] Platelets bldon 05-28-2021 Platelets (Bld) [#/Vol] 200 10*3/uL 150-450 [facility] Work Phone: Serum or plasma albumin caity urement (mass/volume)on 05-28-2021 Albumin [Mass/Vol] 2.9 g/dL 3.2-5.[address] [facility] Work Phone: Serum or plasma calcium caity urement (mass/volume)on 05-28-2021 Calcium [Mass/Vol] 10.2 mg/dL 8.5-10.[address] [facility] Work Phone: Serum or plasma creatinine m easurement (mass/volume)on 05-28-2021 Creatinine [Mass/Vol] 2.46 mg/dL 0.70-1.30 [facility] Work Phone: Comment on above: The validity of the calculated GFR & GFRAA in patients over 70 years has not been determined. Clinical correlation is essential. Serum or plasma urea nitroge n measurement (mass/volume)on 05-28-2021 Urea nitrogen [Mass/Vol] 26 mg/dL 7-18 [facility] Work Phone: Thin prep Papanicolaou smear with manual screeningon 05-28-2021 Thin prep Papanicolaou smear with manual screening 10 U/L 15-37 [facility] Work Phone: Thin prep Papanicolaou smear with manual screening 3 5-15 [facility] Work Phone: [phone] Absolute lymphocyte counton 05-23-2021 Lymphocytes Auto (Unsp spec) [#/Vol] 1.35 10*3/uL 0.83-4.51 [facility] Work Phone: Activated partial thrombopla stin time (aPTT) in platelet poor plasma by coagulation aon 05-23-2021 aPTT Coag (PPP) [Time] 28.4 s 24.1-36.2 [facility] Work Phone: Basophil percentageon 2021 Basophil percentage 2.5 mg/dL 2.5-4.9 [facility] Work Phone: Basophils/100 WBC (Bld) 0.7 % 0-1 [facility] Work Phone: Bilirubin [Mass/Vol] 0.40 mg/dL 0.20-1.00 [facility] Work Phone: Comment on above: For patients on eltr ombopag therapy, use of Dimension [place] TBIL is not recommended. Chloride [Moles/Vol] 112 mmol/L 98-107 [facility] Work Phone: [phone] Eosinophils/100 WBC (Bld) 4.0 % 0-5 [facility] Work Phone: Glucose [Mass/Vol] 98 mg/dL 74-[address] [facility] Work Phone: [phone] Neutrophils (Bld) [#/Vol] 5.0 10*3/uL 2.0-7.7 [facility] Work Phone: [phone] Neutrophils/100 WBC (Bld) 68.1 % 47-70 [facility] Work Phone: Potassium [Moles/Vol] 4.7 mmol/L 3.5-5.1 [facility] Work Phone: Protein [Mass/Vol] 5.8 g/dL 6.4-8.[address] [facility] Work Phone: Sodium [Moles/Vol] 139 mmol/L 136-[address] [facility] Work Phone: WBC (Bld) [#/Vol] 7.3 10*3/uL 4.4-11.[address] [facility] Work Phone: Blood erythrocytes count (nu mber/volume)on 05-23-2021 RBC (Bld) [#/Vol] 3.62 10*6/uL 4.6-6.2 [facility] Work Phone: Blood hemoglobin measurement (mass/volume)on 05-23-2021 Hemoglobin (Bld) [Mass/Vol] 11.5 g/dL 13.0-16.5 [facility] Work Phone: [phone] Blood lymphocytes/100 leukoc yteson 05-23-2021 Lymphocytes/100 WBC (Bld) 18.5 % 19-41 [facility] Work Phone: Blood monocytes/100 leukocyt eson 05-23-2021 Monocytes/100 WBC (Bld) 8.0 % 0-10 [facility] Work Phone: Blood platelet mean volumeon 05-23-2021 Platelet mean volume (Bld) [Entitic vol] 10.6 fL 6.2-12.0 [facility] Work Phone: Determination of erythrocyte mean corpuscular volume (MCV)on 05-23-2021 MCV (RBC) [Entitic vol] 97.5 fL 80-94 [facility] Work Phone: Direct bilirubinon 2 Bilirubin.direct [Mass/Vol] 0.09 mg/dL 0.00-0.30 [facility] Work Phone: Hematocrit Auto (Bld) [Volum e fraction]on 05-23-2021 Hematocrit (Bld) [Volume fraction] 35.3 % 40-54 [facility] Work Phone: INR in Blood by Coagulation assayon 05-23-2021 INR Coag (Bld) [Relative time] 1.1 {INR} [facility] Work Phone: Laboratory - Chemistry and C hemistry - challengeon 05-23-2021 ALP [Catalytic activity/Vol] 111 U/L 45-117 [facility] Work Phone: ALT [Catalytic activity/Vol] 22 U/L 16-61 [facility] Work Phone: CO2 [Moles/Vol] 21.0 mmol/L 21.0-32.0 [facility] Work Phone: Globulin (S) [Mass/Vol] 2.8 g/dL 2.2-4.2 [facility] Work Phone: Magnesium [Mass/Vol] 2.0 mg/dL 1.6-2.6 [facility] Work Phone: Laboratory - Coagulationon 0 05-23-2021 PT Coag (PPP) [Time] 13.3 s 11.7-14.9 [facility] Work Phone: Laboratory - Hematology and Cell countson 05-23-2021 Erythrocyte distribution width (RBC) [Entitic vol] 51.9 fL 35.1-43.9 [facility] Work Phone: Erythrocyte distribution width (RBC) [Ratio] 14.3 % 11.6-14.6 [facility] Work Phone: Immature granulocytes/100 WBC (Bld) 0.700 % 0.0-0.9 [facility] Work Phone: Comment on above: IG% - Immature Granu locytes (promyelocytes, myelocytes and metamyelocytes) > 1% indicates that a LEFT SHIFT is Present. MCH (RBC) [Entitic mass] 31.8 pg 27.0-32.0 [facility] Work Phone: Nucleated RBC/100 WBC (Bld) [Ratio] 0 % 0-5 [facility] Work Phone: MCHC Auto (RBC) [Mass/Vol]on 05-23-2021 MCHC (RBC) [Mass/Vol] 32.6 g/dL 32-36 [facility] Work Phone: No Panel Informationon 05-23 Estimated GFR (MDRD) Amer 33 mL/min >60 [facility] Work Phone: Comment on above: GFR Calc Estimated GFR (MDRD) Non-Af Amer 27 mL/min >60 [facility] Work Phone: Comment on above: Non- GFR Calc Tacrolimus (Prograf) Level 6.4 ng/mL 2.0-20.0 [facility] Work Phone: Comment on above: Trough (immediately following transplant) 15.0 Trough (steady state, 2 weeks or more after transplant): 3.0 - 8.0 Performed by LC-MS/MS technology.Performed at: [employer] [place] [id number] Director: Shellie Holguin MD, Phone: [phone] Platelets bldon 05-23-2021 Platelets (Bld) [#/Vol] 212 10*3/uL 150-450 [facility] Work Phone: Serum or plasma albumin caity urement (mass/volume)on 05-23-2021 Albumin [Mass/Vol] 3.0 g/dL 3.2-5.[address] [facility] Work Phone: Serum or plasma calcium caity urement (mass/volume)on 05-23-2021 Calcium [Mass/Vol] 10.2 mg/dL 8.5-10.[address] [facility] Work Phone: Serum or plasma creatinine m easurement (mass/volume)on 05-23-2021 Creatinine [Mass/Vol] 2.59 mg/dL 0.70-1.30 [facility] Work Phone: Comment on above: The validity of the calculated GFR & GFRAA in patients over 70 years has not been determined. Clinical correlation is essential. Serum or plasma urea nitroge n measurement (mass/volume)on 05-23-2021 Urea nitrogen [Mass/Vol] 33 mg/dL 7-18 [facility] Work Phone: [phone] Thin prep Papanicolaou smear with manual screeningon 05-23-2021 Thin prep Papanicolaou smear with manual screening 10 U/L 15-37 [facility] Work Phone: Thin prep Papanicolaou smear with manual screening 6 5-15 [facility] Work Phone: Absolute lymphocyte counton 05-19-2021 Lymphocytes Auto (Unsp spec) [#/Vol] 1.24 10*3/uL 0.83-4.51 [facility] Work Phone: Activated partial thrombopla stin time (aPTT) in platelet poor plasma by coagulation aon 05-19-2021 aPTT Coag (PPP) [Time] 28.5 s 24.1-36.2 [facility] Work Phone: Basophil percentageon 2021 Basophil percentage 2.2 mg/dL 2.5-4.9 [facility] Work Phone: Basophils/100 WBC (Bld) 1.0 % 0-1 [facility] Work Phone: Bilirubin [Mass/Vol] 0.40 mg/dL 0.20-1.00 [facility] Work Phone: Comment on above: For patients on eltr ombopag therapy, use of Dimension [place] TBIL is not recommended. Chloride [Moles/Vol] 112 mmol/L 98-107 [facility] Work Phone: Eosinophils/100 WBC (Bld) 3.4 % 0-5 [facility] Work Phone: [phone] Glucose [Mass/Vol] 86 mg/dL 74-[address] [facility] Work Phone: Neutrophils (Bld) [#/Vol] 5.6 10*3/uL 2.0-7.7 [facility] Work Phone: Neutrophils/100 WBC (Bld) 72.4 % 47-70 [facility] Work Phone: [phone] Potassium [Moles/Vol] 4.7 mmol/L 3.5-5.1 [place] [facility] Work Phone: Protein [Mass/Vol] 6.0 g/dL 6.4-8.2 [facility] Work Phone: Sodium [Moles/Vol] 138 mmol/L 136-145 [facility] Work Phone: [phone] WBC (Bld) [#/Vol] 7.8 10*3/uL 4.4-11.[address] [facility] Work Phone: Blood erythrocytes count (nu mber/volume)on 05-19-2021 RBC (Bld) [#/Vol] 3.70 10*6/uL 4.6-6.2 [facility] Work Phone: Blood hemoglobin measurement (mass/volume)on 05-19-2021 Hemoglobin (Bld) [Mass/Vol] 11.3 g/dL 13.0-16.5 [facility] Work Phone: Blood lymphocytes/100 leukoc yteson 05-19-2021 Lymphocytes/100 WBC (Bld) 16.0 % 19-41 [facility] Work Phone: [phone] Blood monocytes/100 leukocyt eson 05-19-2021 Monocytes/100 WBC (Bld) 6.7 % 0-10 [facility] Work Phone: [phone] Blood platelet mean volumeon 05-19-2021 Platelet mean volume (Bld) [Entitic vol] 10.4 fL 6.2-12.0 [facility] Work Phone: Determination of erythrocyte mean corpuscular volume (MCV)on 05-19-2021 MCV (RBC) [Entitic vol] 97.8 fL 80-94 [facility] Work Phone: Direct bilirubinon 2 Bilirubin.direct [Mass/Vol] 0.16 mg/dL 0.00-0.30 [facility] Work Phone: Hematocrit Auto (Bld) [Volum e fraction]on 05-19-2021 Hematocrit (Bld) [Volume fraction] 36.2 % 40-54 [facility] Work Phone: INR in Blood by Coagulation assayon 05-19-2021 INR Coag (Bld) [Relative time] 1.1 {INR} [facility] Work Phone: Laboratory - Chemistry and C hemistry - challengeon 05-19-2021 ALP [Catalytic activity/Vol] 129 U/L 45-117 [facility] Work Phone: ALT [Catalytic activity/Vol] 23 U/L 16-61 [facility] Work Phone: CO2 [Moles/Vol] 23.0 mmol/L 21.0-32.0 [facility] Work Phone: Globulin (S) [Mass/Vol] 3.0 g/dL 2.2-4.2 [facility] Work Phone: Magnesium [Mass/Vol] 2.1 mg/dL 1.6-2.6 [facility] Work Phone: Urea nitrogen/Creatinine [Mass ratio] 9.7 mg/mg 10-20 [facility] Work Phone: Laboratory - Coagulationon 0 05-19-2021 PT Coag (PPP) [Time] 13.2 s 11.7-14.9 [facility] Work Phone: Laboratory - Hematology and Cell countson 05-19-2021 Erythrocyte distribution width (RBC) [Entitic vol] 51.8 fL 35.1-43.9 [facility] Work Phone: Erythrocyte distribution width (RBC) [Ratio] 14.5 % 11.6-14.6 [facility] Work Phone: Immature granulocytes/100 WBC (Bld) 0.500 % 0.0-0.9 [facility] Work Phone: Comment on above: IG% - Immature Granu locytes (promyelocytes, myelocytes and metamyelocytes) > 1% indicates that a LEFT SHIFT is Present. MCH (RBC) [Entitic mass] 30.5 pg 27.0-32.0 [facility] Work Phone: Nucleated RBC/100 WBC (Bld) [Ratio] 0 % 0-5 [facility] Work Phone: MCHC Auto (RBC) [Mass/Vol]on 05-19-2021 MCHC (RBC) [Mass/Vol] 31.2 g/dL 32-36 [facility] Work Phone: No Panel Informationon 05-19 Estimated GFR (MDRD) Amer 33 mL/min >60 [facility] Work Phone: Comment on above: GFR Calc Estimated GFR (MDRD) Non-Af Amer 27 mL/min >60 [facility] Work Phone: Comment on above: Non- GFR Calc Tacrolimus (Prograf) Level 7.9 ng/mL 2.0-20.0 [facility] Work Phone: Comment on above: Trough (immediately following transplant) 15.0 Trough (steady state, 2 weeks or more after transplant): 3.0 - 8.0 Performed by LC-MS/MS technology.Performed at: [address] [id number] Director: Shellie Holguin MD, Phone: [phone] Platelets bldon 05-19-2021 Platelets (Bld) [#/Vol] 220 10*3/uL 150-450 [facility] Work Phone: Serum or plasma albumin caity urement (mass/volume)on 05-19-2021 Albumin [Mass/Vol] 3.0 g/dL 3.2-5.[address] [facility] Work Phone: Serum or plasma calcium caity urement (mass/volume)on 05-19-2021 Calcium [Mass/Vol] 10.4 mg/dL 8.5-10.[address] [facility] Work Phone: Serum or plasma creatinine m easurement (mass/volume)on 05-19-2021 Creatinine [Mass/Vol] 2.59 mg/dL 0.70-1.30 [facility] Work Phone: Comment on above: The validity of the calculated GFR & GFRAA in patients over 70 years has not been determined. Clinical correlation is essential. 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 There is joint space narrowing, greater on the right. There is degenerative cyst formation in the superior acetabulum. There is no fracture or destructive lesion. There are extensive vascular calcifications. Bilateral sacroiliac joints are intact. Multiple catheters are projecting over the pelvis. There are surgical clips in the right hemipelvis. Clinical Training Specialist: KYLER Transcribe Date/Time: Apr 19 2021 3:57P Dictated by : AFTAB ROBERTSON MD This examination was interpreted and the report reviewed and electronically signed by: AFTAB ROBERTSON MD on Apr 19 2021 3:58PM [facility] DIVISION OF RADIOLOGY * * *Final Report* * * DATE OF EXAM: Apr 19 2021 3:54PM [id number] - XR HIP 3V PELV+ AP/LAT RT / PROCEDURE REASON: Right hip pain * * * * Physician Interpretation * * * * EXAM:XR HIP 3V PELV+ AP/LAT RT HISTORY: Right hip pain COMPARISON:None DIVISION OF RADIOLOGY [facility] * * *Final Report* * * DATE OF EXAM: Adriel 18 2022 3:54PM WOX [id number] - XR HIP 3V PELV+ AP/LAT RT / PROCEDURE REASON: Right hip pain * * * * Physician Interpretation * * * * EXAM:XR HIP 3V PELV+ AP/LAT RT HISTORY: Right hip pain COMPARISON:None IMPRESSION IMPRESSION: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 There is joint space narrowing, greater on the right. There is degenerative cyst formation in the superior acetabulum. There is no fracture or destructive lesion. There are extensive vascular calcifications. Bilateral sacroiliac joints are intact. Multiple catheters are projecting over the pelvis. There are surgical clips in the right hemipelvis. Clinical Training Specialist: PSCB Transcribe Date/Time: Apr 19 2021 3:57P Dictated by : AFTAB ROBERTSON MD This examination was interpreted and the report reviewed and electronically signed by: AFTAB ROBERTSON MD on Apr 19 2021 3:58PM EST [facility] Radiology Study observation (narrative) [facility] XR Pelvis and Hip - right AP and Lateral frogOrdered By: [facility] Provider on 04-19-2021 [facility] No Panel Information Enteric Bacteriology [facility] Work Phone: Streptococcus pneumoniae Antigen (M [facility] Work Phone: [facility] SARS-CoV-2 (COVID-19) Ag IA. rapid Ql (Resp) SARS-CoV-2 Antigen (Rapid) SARS-CoV-2 (COVID 19) [facility] Work Phone: Vital Signs Date Time Vital Sign Value Performing Clinician Facility 09-17-2024 14:59-0400 Body mass index (BMI) [Ratio] 36.59 kg/m2 Handy Henderson DO Work Phone: [facility] 09-17-2024 14:59-0400 Body temperature 96.1 [degF] Handy Henderson DO Work Phone: [facility] 09-17-2024 14:59-0400 Body weight 115.67 kg Handy Henderson DO Work Phone: [facility] 09-17-2024 14:59-0400 Diastolic blood pressure 70 mm[Hg] Handy Henderson DO Work Phone: [facility] 09-17-2024 14:59-0400 Heart rate 72 /min Handy Henderson DO Work Phone: [facility] 09-17-2024 14:59-0400 Respiratory rate 24 /min Handy Henderson DO Work Phone: [facility] 09-17-2024 14:59-0400 Systolic blood pressure 146 mm[Hg] Handy Henderson DO Work Phone: [facility] 08-13-2024 13:07-0400 Body height 177.[address] Handy Henderson DO Work Phone: [facility] 08-13-2024 13:07-0400 Body mass index (BMI) [Ratio] 37.4 kg/m2 Dr. Handy Henderson DO Work Phone: [facility] 08-13-2024 13:07-0400 Body weight 118.[address] Handy Henderson DO Work Phone: [facility] 08-13-2024 13:07-0400 Diastolic blood pressure 80 mm[Hg] Dr. Handy Henderson DO Work Phone: [facility] 08-13-2024 13:07-0400 Heart rate 69 /min Dr. Handy Henderson DO Work Phone: [facility] 08-13-2024 13:07-0400 SaO2% (BldA) [Mass fraction] 96 % Dr. Handy Henderson DO Work Phone: [facility] 08-13-2024 13:07-0400 Systolic blood pressure 146 mm[Hg] Dr. Handy Henderson DO Work Phone: [facility] 06-17-2024 14:23-0400 Body mass index (BMI) [Ratio] 36.59 kg/m2 Handy Henderson DO Work Phone: [facility] 06-17-2024 14:23-0400 Body temperature 97 [degF] Handy Henderson DO Work Phone: [facility] 06-17-2024 14:23-0400 Body weight 115.67 kg Handy Henderson DO Work Phone: [facility] 06-17-2024 14:23-0400 Diastolic blood pressure 70 mm[Hg] Handy Henderson DO Work Phone: [facility] 06-17-2024 14:23-0400 Heart rate 68 /min Handy Romerorison DO Work Phone: [facility] 06-17-2024 14:23-0400 Respiratory rate 20 /min Handy Ogon DO Work Phone: [facility] 06-17-2024 14:23-0400 Systolic blood pressure 130 mm[Hg] Handy Henderson DO Work Phone: [facility] 06-03-2024 07:33-0500 Body height 177.[address] Handy Henderson DO Work Phone: [facility] 06-03-2024 07:33-0500 Body mass index (BMI) [Ratio] 36.8 kg/m2 Dr. Handy Henderson DO Work Phone: [facility] 06-03-2024 07:33-0500 Body weight 116.[address] Handy Henderson DO Work Phone: [facility] 06-03-2024 07:33-0500 Diastolic blood pressure 76 mm[Hg] Dr. Handy Henderson DO Work Phone: [facility] 06-03-2024 07:33-0500 Heart rate 85 /min Dr. Handy Henderson DO Work Phone: [facility] 06-03-2024 07:33-0500 Respiratory rate 20 /min Dr. Handy Henderson DO Work Phone: [facility] 06-03-2024 07:33-0500 SaO2% (BldA) [Mass fraction] 97 % Dr. Handy Henderson DO Work Phone: [facility] 06-03-2024 07:33-0500 Systolic blood pressure 122 mm[Hg] Dr. Handy Henderson DO Work Phone: [facility] 05-10-2024 13:55-0500 Body mass index (BMI) [Ratio] 36.69 kg/m2 Nikky Kike [employer]OPE [employer].ENGINE SETTER Work Phone: [facility] 05-10-2024 13:55-0500 Body temperature 97.59 [degF] Nikky Kike [employer]OPE [employer]KER.ENGINE SETTER Work Phone: [facility] 05-10-2024 13:55-0500 Body weight 116 kg Nikky Lamesa [employer]OPE [employer]ER.ENGINE SETTER Work Phone: [facility] 05-10-2024 13:55-0500 Diastolic blood pressure 76 mm[Hg] Nikky Kike [employer] ROPE [employer]KER.ENGINE SETTER Work Phone: [facility] 05-10-2024 13:55-0500 Heart rate 73 /min Nikky Kike [employer]OPE [employer]KER.ENGINE SETTER Work Phone: [facility] 05-10-2024 13:55-0500 Respiratory rate 20 /min Nikky Lamesa [employer] ROPE [employer]KER.ENGINE SETTER Work Phone: [facility] 05-10-2024 13:55-0500 SaO2% (BldA) [Mass fraction] 99 % Nikky Lamesa [employer] ROPE [employer]KER.ENGINE SETTER Work Phone: [facility] 05-10-2024 13:55-0500 Systolic blood pressure 136 mm[Hg] Nikky Lamesa [employer]OPE [employer]KER.ENGINE SETTER Work Phone: [facility] 12-11-2023 15:08-0400 Body mass index (BMI) [Ratio] 39.03 kg/m2 Handy Henderson DO Work Phone: [facility] 12-11-2023 15:08-0400 Body temperature 97 [degF] Handy Henderson DO Work Phone: [facility] 12-11-2023 15:08-0400 Body weight 123.38 kg Handy Henderson DO Work Phone: [facility] 12-11-2023 15:08-0400 Diastolic blood pressure 60 mm[Hg] Handy Henderson DO Work Phone: [facility] 12-11-2023 15:08-0400 Heart rate 80 /min Handy Henderson DO Work Phone: [facility] 12-11-2023 15:08-0400 Respiratory rate 16 /min Handy Henderson DO Work Phone: [facility] 12-11-2023 15:08-0400 Systolic blood pressure 124 mm[Hg] Handy Henderson DO Work Phone: [facility] 11-07-2023 14:16-0400 Body mass index (BMI) [Ratio] 38.21 kg/m2 Glynn Leon MD Work Phone: [facility] 11-07-2023 14:16-0400 Body temperature 96.8 [degF] Glynn Leon MD Work Phone: [facility] 11-07-2023 14:16-0400 Body weight 120.8 kg Glynn Leon MD Work Phone: [facility] 11-07-2023 14:16-0400 Diastolic blood pressure 70 mm[Hg] Glynn Leon MD Work Phone: [facility] 11-07-2023 14:16-0400 Heart rate 70 /min Glynn Leon MD Work Phone: [facility] 11-07-2023 14:16-0400 Respiratory rate 21 /min Glynn Leon MD Work Phone: [facility] 11-07-2023 14:16-0400 SaO2% (BldA) [Mass fraction] 98 % Glynn Leon MD Work Phone: [facility] 11-07-2023 14:16-0400 Systolic blood pressure 120 mm[Hg] Glynn Leon MD Work Phone: [facility] 11-06-2023 13:45-0400 Body height 179.1 cm Mirna SANCHEZ Work Phone: [facility] 11-06-2023 13:45-0400 Body mass index (BMI) [Ratio] 37.63 kg/m2 Mirna Stuart [employer]OPE [employer]-ENG[employer] SETTER Work Phone: [facility] 11-06-2023 13:45-0400 Body weight 120.66 kg Mirna Stuart [employer]OPE MAKER-ENGINE SETTER Work Phone: [facility] 11-06-2023 13:45-0400 Diastolic blood pressure 72 mm[Hg] Mirna Stuart [employer] ROPE MAKER-ENGINE SETTER Work Phone: [facility] 11-06-2023 13:45-0400 Heart rate 75 /min Mirna Stuart [employer]OPE MAKER-ENGINE SETTER Work Phone: [facility] 11-06-2023 13:45-0400 Systolic blood pressure 131 mm[Hg] Mirna Stuart [employer]OPE MAKER-ENGINE SETTER Work Phone: [facility] 07-26-2023 07:25-0400 Body mass index (BMI) [Ratio] 40.74 kg/m2 Irlanda Issa [employer]OPE [employer].ENGINE SETTER Work Phone: [facility] 07-26-2023 07:25-0400 Body temperature 97.9 [degF] Irlanda Issa [employer]OPE MAKER.ENGINE SETTER Work Phone: [facility] 07-26-2023 07:25-0400 Body weight 128.8 kg Irlanda Issa [employer] ROPE MAKER.ENGINE SETTER Work Phone: [facility] 07-26-2023 07:25-0400 Diastolic blood pressure 64 mm[Hg] Irlanda Issa [employer] ROPE MAKER.ENGINE SETTER Work Phone: [facility] 07-26-2023 07:25-0400 Heart rate 83 /min Irlanda Issa [employer] ROPE MAKER.ENGINE SETTER Work Phone: [facility] 07-26-2023 07:25-0400 Respiratory rate 21 /min Irlanda Issa [employer] ROPE MAKER.ENGINE SETTER Work Phone: [facility] 07-26-2023 07:25-0400 SaO2% (BldA) [Mass fraction] 99 % Irlanda Issa [employer] ROPE MAKER.ENGINE SETTER Work Phone: [facility] 07-26-2023 07:25-0400 Systolic blood pressure 158 mm[Hg] Irlanda Issa [employer] ROPE MAKER.ENGINE SETTER Work Phone: [facility] 07-17-2023 14:49-0400 Body temperature 98.01 [degF] Handy Henderson DO Work Phone: [facility] 07-17-2023 14:49-0400 Body weight 127.01 kg Handy Henderson DO Work Phone: [facility] 07-17-2023 14:49-0400 Diastolic blood pressure 60 mm[Hg] Handy Henderson DO Work Phone: [facility] 07-17-2023 14:49-0400 Heart rate 80 /min Handy Henderson DO Work Phone: [facility] 07-17-2023 14:49-0400 Respiratory rate 16 /min Handy Henderson DO Work Phone: [facility] 07-17-2023 14:49-0400 Systolic blood pressure 130 mm[Hg] Handy Henderson DO Work Phone: [facility] 06-21-2023 07:19-0400 Body height 177.[address] Handy Henderson Work Phone: [facility] 06-21-2023 07:19-0400 Body weight [address] Handy Henderson Work Phone: [facility] 06-20-2023 09:20-0400 Body mass index (BMI) [Ratio] 40.1 kg/m2 Dr. Handy Henderson Work Phone: [facility] 06-09-2023 13:29-0500 Body temperature 98.1 [degF] Kerline Laureano [employer]OPE [employer].ENGINE SETTER Work Phone: [facility] 06-09-2023 13:29-0500 Body weight 131 kg Kerline Sridevi [employer] ROPE MAKER.ENGINE SETTER Work Phone: [facility] 06-09-2023 13:29-0500 Diastolic blood pressure 72 mm[Hg] Kerline Sridevi [employer] ROPE MAKER.ENGINE SETTER Work Phone: [facility] 06-09-2023 13:29-0500 Heart rate 76 /min Kerline Sridevi [employer] ROPE MAKER.ENGINE SETTER Work Phone: [facility] 06-09-2023 13:29-0500 Respiratory rate 16 /min Kerline Sridevi [employer] ROPE MAKER.ENGINE SETTER Work Phone: [facility] 06-09-2023 13:29-0500 SaO2% (BldA) [Mass fraction] 98 % Kerline Sridevi [employer] ROPE MAKER.ENGINE SETTER Work Phone: [facility] 06-09-2023 13:29-0500 Systolic blood pressure 134 mm[Hg] Kerline Sridevi [employer] ROPE MAKER.ENGINE SETTER Work Phone: [facility] 05-07-2023 13:00-0500 Body height 177.[address] Handy Henderson Work Phone: [facility] 05-07-2023 12:58-0500 Body mass index (BMI) [Ratio] 40 kg/m2 Dr. Handy Henderson Work Phone: [facility] 05-07-2023 12:58-0500 Body weight 126.[address] Handy Henderson Work Phone: [facility] 05-07-2023 12:58-0500 Diastolic blood pressure 78 mm[Hg] Dr. Handy Henderson Work Phone: [facility] 05-07-2023 12:58-0500 Heart rate 70 /min Dr. Handy Henderson Work Phone: [facility] 05-07-2023 12:58-0500 Respiratory rate 22 /min Dr. Handy Henderson Work Phone: [facility] 05-07-2023 12:58-0500 SaO2% (BldA) [Mass fraction] 99 % Dr. Handy Henderson Work Phone: 4(188)450-826978 [place] [address] 05-07-2023 12:58-0500 Systolic blood pressure 140 mm[Hg] Dr. Handy Henderson Work Phone: 8(847)219-555778 [place] [address] 04-25-2023 14:31-0500 Diastolic blood pressure 72 mm[Hg] Dr. Handy Henderson Work Phone: 4(228)518-955478 [place] [address] 04-25-2023 14:31-0500 Systolic blood pressure 132 mm[Hg] Dr. Handy Henderson Work Phone: 6(735)767-896678 [place] [address] 04-25-2023 13:00-0500 Heart rate 74 /min Dr. Handy Henderson Work Phone: 0(346)860-514678 [place] [address] 04-25-2023 13:00-0500 Respiratory rate 18 /min Dr. Handy Henderson Work Phone: 3(706)818-395678 [place] [address] 04-25-2023 13:00-0500 SaO2% (BldA) [Mass fraction] 98 % Dr. Handy Henderson Work Phone: 0(388)199-945678 [place] [address] 04-25-2023 10:52-0500 Body height 177.[address] Handy Henderson Work Phone: 0(515)837-800178 [place] [address] 04-25-2023 10:52-0500 Body mass index (BMI) [Ratio] 40.5 kg/m2 Dr. Handy Henderson Work Phone: 3(135)087-662778 [place] [address] 04-25-2023 10:52-0500 Body temperature 97.8 [degF] Dr. Handy Henderson Work Phone: 1(648)599-657478 [place] [address] 04-25-2023 10:52-0500 Body weight 128.[address] Handy Henderson Work Phone: 2(535)322-345778 [place] [address] 04-12-2023 14:05-0500 Body temperature 99.1 [degF] Dr. Handy Henderson Work Phone: 3(303)720-117478 [place] [address] 04-12-2023 14:05-0500 Body weight [address] Handy Henderson Work Phone: 0(778)114-261678 [place] [address] 04-12-2023 14:05-0500 Diastolic blood pressure 75 mm[Hg] Dr. Handy Henderson Work Phone: 8(893)546-679578 [place] [address] 04-12-2023 14:05-0500 Heart rate 76 /min Dr. Handy Henderson Work Phone: 8(518)805-228978 [place] [address] 04-12-2023 14:05-0500 Respiratory rate 16 /min Dr. Handy Henderson Work Phone: 9(902)924-981378 [place] [address] 04-12-2023 14:05-0500 SaO2% (BldA) [Mass fraction] 98 % Dr. Handy Henderson Work Phone: 8(662)734-525378 [place] [address] 04-12-2023 14:05-0500 Systolic blood pressure 143 mm[Hg] Dr. Handy Henderson Work Phone: 4(949)779-485778 [place] [address] 02-14-2023 13:10-0500 Body height 177.[address] Handy Henderson Work Phone: 9(871)660-297578 [place] [address] 02-14-2023 13:10-0500 Body mass index (BMI) [Ratio] 38.6 kg/m2 Dr. Handy Henderson Work Phone: 3(446)815-678678 [place] [address] 02-14-2023 13:10-0500 Body temperature 98 [degF] Dr. Handy Henderson Work Phone: 5(389)957-182278 [place] [address] 02-14-2023 13:10-0500 Body weight 122.[address] Handy Henderson Work Phone: 5(895)543-059778 [place] [address] 02-14-2023 13:10-0500 Diastolic blood pressure 80 mm[Hg] Dr. Handy Henderson Work Phone: 2(967)029-061878 [place] [address] 02-14-2023 13:10-0500 Heart rate 72 /min Dr. Handy Henderson Work Phone: 5(051)223-861678 [place] [address] 02-14-2023 13:10-0500 Respiratory rate 16 /min Dr. Handy Henderson Work Phone: 8(591)996-750878 [place] [address] 02-14-2023 13:10-0500 SaO2% (BldA) [Mass fraction] 97 % Dr. Handy Henderson Work Phone: [facility] 02-14-2023 13:10-0500 Systolic blood pressure 136 mm[Hg] Dr. Handy Henderson Work Phone: [facility] 11-08-2022 11:08-0400 Body weight 117.48 kg Maya Holguin [employer]OPE [employer].ENGINE SETTER Work Phone: [facility] 11-08-2022 11:08-0400 Diastolic blood pressure 64 mm[Hg] Maya Holguin [employer] ROPE MAKER.ENGINE SETTER Work Phone: [facility] 11-08-2022 11:08-0400 Heart rate 71 /min Maya Holguin [employer] ROPE MAKER.ENGINE SETTER Work Phone: [facility] 11-08-2022 11:08-0400 Respiratory rate 18 /min Maya Holguin [employer] ROPE MAKER.ENGINE SETTER Work Phone: [facility] 11-08-2022 11:08-0400 Systolic blood pressure 138 mm[Hg] Maya Holguin [employer] ROPE MAKER.ENGINE SETTER Work Phone: [facility] 11-03-2022 14:06-0400 Body temperature 97.59 [degF] Kerline Sridevi [employer] ROPE MAKER.ENGINE SETTER Work Phone: [facility] 11-03-2022 14:06-0400 Body weight 117.03 kg Kerline Sridevi [employer] ROPE MAKER.ENGINE SETTER Work Phone: [facility] 11-03-2022 14:06-0400 Diastolic blood pressure 78 mm[Hg] Kelrine Sridevi [employer] ROPE MAKER.ENGINE SETTER Work Phone: [facility] 11-03-2022 14:06-0400 Heart rate 72 /min Kerline Sridevi [employer] ROPE MAKER.ENGINE SETTER Work Phone: [facility] 11-03-2022 14:06-0400 Respiratory rate 20 /min Kerline Sridevi [employer] ROPE MAKER.ENGINE SETTER Work Phone: [facility] 11-03-2022 14:06-0400 SaO2% (BldA) [Mass fraction] 98 % Kerline Laureano [employer] ROPE MAKER.ENGINE SETTER Work Phone: [facility] 11-03-2022 14:06-0400 Systolic blood pressure 130 mm[Hg] Kerline Laureano APRN.ENGINE SETTER Work Phone: [facility] 10-17-2022 14:14-0400 Body temperature 97.7 [degF] Handy Henderson DO Work Phone: [facility] 10-17-2022 14:14-0400 Body weight 112.95 kg Handy Henderson DO Work Phone: [facility] 10-17-2022 14:14-0400 Diastolic blood pressure 74 mm[Hg] Handy Henderson DO Work Phone: [facility] 10-17-2022 14:14-0400 Heart rate 80 /min Handy Henderson DO Work Phone: [facility] 10-17-2022 14:14-0400 Respiratory rate 16 /min Handy Henderson DO Work Phone: [facility] 10-17-2022 14:14-0400 Systolic blood pressure 150 mm[Hg] Handy Henderson DO Work Phone: [facility] 10-05-2022 13:23-0400 Body mass index (BMI) [Ratio] 36.1 kg/m2 Migel Gómez MD Work Phone: [facility] 10-05-2022 13:23-0400 Body temperature 98.1 [degF] Migel Gómez MD Work Phone: [facility] 10-05-2022 13:23-0400 Body weight 114.13 kg Migel Gómez MD Work Phone: [facility] 10-05-2022 13:23-0400 Diastolic blood pressure 69 mm[Hg] Migel Gómez MD Work Phone: [facility] 10-05-2022 13:23-0400 Heart rate 76 /min Migel Gómez MD Work Phone: [facility] 10-05-2022 13:23-0400 Systolic blood pressure 142 mm[Hg] Migel Gómez MD Work Phone: [facility] 07-24-2022 14:30-0400 Body weight 112.76 kg Tara Jimmy [employer]OPE [employer]KER.ENGINE SETTER Work Phone: [facility] 07-24-2022 14:30-0400 Diastolic blood pressure 72 mm[Hg] Tara Jimmy [employer] ROPE MAKER.ENGINE SETTER Work Phone: [facility] 07-24-2022 14:30-0400 Heart rate 72 /min Tara Jimmy [employer] ROPE MAKER.ENGINE SETTER Work Phone: [facility] 07-24-2022 14:30-0400 Respiratory rate 18 /min Tara Jimmy [employer] ROPE MAKER.ENGINE SETTER Work Phone: [facility] 07-24-2022 14:30-0400 SaO2% (BldA) [Mass fraction] 100 % Tara Jimmy [employer] ROPE MAKER.ENGINE SETTER Work Phone: [facility] 07-24-2022 14:30-0400 Systolic blood pressure 142 mm[Hg] Tara Jimmy [employer] ROPE MAKER.ENGINE SETTER Work Phone: [facility] 05-10-2022 14:02-0500 Body temperature 97.2 [degF] Handy Henderson DO Work Phone: [facility] 05-10-2022 14:02-0500 Body weight 114.76 kg Handy Henderson DO Work Phone: [facility] 05-10-2022 14:02-0500 Diastolic blood pressure 74 mm[Hg] Handy Henderson DO Work Phone: [facility] 05-10-2022 14:02-0500 Heart rate 88 /min Handy Henderson DO Work Phone: [facility] 05-10-2022 14:02-0500 Respiratory rate 20 /min Handy Henderson DO Work Phone: [facility] 05-10-2022 14:02-0500 Systolic blood pressure 128 mm[Hg] Handy Henderson DO Work Phone: [facility] 03-17-2022 12:52-0500 Body height 177.[address] Handy Henderson Work Phone: 5(806)357-300678 [place] [address] 03-17-2022 12:52-0500 Body mass index (BMI) [Ratio] 35.7 kg/m2 Dr. Handy Henderson Work Phone: 8(606)529-661978 [place] [address] 03-17-2022 12:52-0500 Body weight 112.[address] Handy Henderson Work Phone: 0(022)179-120378 [place] [address] 03-17-2022 12:52-0500 Diastolic blood pressure 87 mm[Hg] Dr. Handy Henderson Work Phone: 5(012)294-409678 [place] [address] 03-17-2022 12:52-0500 Heart rate 70 /min Dr. Handy Henderson Work Phone: 2(737)539-831278 [place] [address] 03-17-2022 12:52-0500 Respiratory rate 20 /min Dr. Handy Henderson Work Phone: 0(305)871-020178 [place] [address] 03-17-2022 12:52-0500 SaO2% (BldA) [Mass fraction] 100 % Dr. Handy Henderson Work Phone: 8(120)283-443078 [place] [address] 03-17-2022 12:52-0500 Systolic blood pressure 140 mm[Hg] Dr. Handy Henderson Work Phone: 7(147)058-766678 [place] [address] 02-22-2022 09:46-0500 Body mass index (BMI) [Ratio] 34.7 kg/m2 Dr. Handy Henderson Work Phone: 0(760)298-246378 [place] [address] 02-22-2022 09:46-0500 Body temperature 97.3 [degF] Dr. Handy Henderson Work Phone: 7(055)871-020178 [place] [address] 02-22-2022 09:46-0500 Body weight 109.[address] Handy Henderson Work Phone: 3(596)351-031192 [place] [address] 02-22-2022 09:46-0500 Diastolic blood pressure 78 mm[Hg] Dr. Handy Henderson Work Phone: 1(505)096-872892 [place] [address] 02-22-2022 09:46-0500 Heart rate 72 /min Dr. Handy Henderson Work Phone: 2(408)514-267592 [place] [address] 02-22-2022 09:46-0500 Respiratory rate 1 /min Dr. Handy Henderson Work Phone: 2(610)862-529278 [place] [address] 02-22-2022 09:46-0500 SaO2% (BldA) [Mass fraction] 97 % Dr. Handy Henderson Work Phone: 9(677)900-571878 [place] [address] 02-22-2022 09:46-0500 Systolic blood pressure 122 mm[Hg] Dr. Handy Henderson Work Phone: 9(983)960-488892 [place] [address] 02-06-2022 15:48-0500 Body temperature 96.01 [degF] Handy Henderson DO Work Phone: [facility] 02-06-2022 15:48-0500 Body weight 109.32 kg Handy Henderson DO Work Phone: 5(817)903-988811 [place] [address] 02-06-2022 15:48-0500 Diastolic blood pressure 70 mm[Hg] Handy Romerorison DO Work Phone: [facility] 02-06-2022 15:48-0500 Heart rate 80 /min Handy Henderson DO Work Phone: [facility] 02-06-2022 15:48-0500 Respiratory rate 20 /min Handy Henderson DO Work Phone: [facility] 02-06-2022 15:48-0500 Systolic blood pressure 136 mm[Hg] Handy Henderson DO Work Phone: [facility] 01-30-2022 16:14-0400 Heart rate 76 /min [facility] 01-30-2022 16:14-0400 Respiratory rate 16 /min [facility] 01-30-2022 16:14-0400 SaO2% (BldA) [Mass fraction] 99 % [facility] 01-30-2022 13:00-0400 Diastolic blood pressure 70 mm[Hg] [facility] 01-30-2022 13:00-0400 Systolic blood pressure 143 mm[Hg] [facility] 01-30-2022 09:32-0400 Body height 177.8 cm [facility] Work Phone: 01-30-2022 09:32-0400 Body mass index (BMI) [Ratio] 36.1 kg/m2 [facility] 01-30-2022 09:32-0400 Body temperature 97 [degF] [facility] 01-30-2022 09:32-0400 Body weight 114.3 kg [facility] 01-07-2022 09:48-0400 Diastolic blood pressure 82 mm[Hg] George Pacheco MD Work Phone: [facility] 01-07-2022 09:48-0400 Heart rate 78 /min George Pacheco MD Work Phone: [facility] 01-07-2022 09:48-0400 Systolic blood pressure 146 mm[Hg] George Pacheco MD Work Phone: [facility] 12-12-2021 12:59-0400 Diastolic blood pressure 82 mm[Hg] George Pacheco MD Work Phone: [facility] 12-12-2021 12:59-0400 Heart rate 78 /min George Pacheco MD Work Phone: [facility] 12-12-2021 12:59-0400 Systolic blood pressure 146 mm[Hg] George Pacheco MD Work Phone: [facility] 10-13-2021 14:38-0400 Body mass index (BMI) [Ratio] 36.45 kg/m2 Migel Gómez MD Work Phone: [facility] 10-13-2021 14:38-0400 Body temperature 98.1 [degF] Migel Gómez MD Work Phone: [facility] 10-13-2021 14:38-0400 Body weight 115.21 kg Migel Gómez MD Work Phone: [facility] 10-13-2021 14:38-0400 Diastolic blood pressure 71 mm[Hg] Migel Gómez MD Work Phone: [facility] 10-13-2021 14:38-0400 Heart rate 69 /min Migel Gómez MD Work Phone: [facility] 10-13-2021 14:38-0400 Systolic blood pressure 144 mm[Hg] Migel Gómez MD Work Phone: [facility] 09-20-2021 09:35-0400 Body height 177.[address] Handy Henderson Work Phone: [facility] Work Phone: 09-20-2021 09:35-0400 Body mass index (BMI) [Ratio] 37.3 kg/m2 Dr. Handy Henderson Work Phone: [facility] Work Phone: 09-20-2021 09:35-0400 Body weight 117.[address] Handy Henderson Work Phone: [facility] Work Phone: 09-20-2021 09:35-0400 Diastolic blood pressure 77 mm[Hg] Dr. Handy Henderson Work Phone: [facility] Work Phone: 09-20-2021 09:35-0400 Heart rate 76 /min Dr. Handy Henderson Work Phone: [facility] Work Phone: 09-20-2021 09:35-0400 Respiratory rate 16 /min Dr. Handy Henderson Work Phone: [facility] Work Phone: 09-20-2021 09:35-0400 SaO2% (BldA) [Mass fraction] 98 % Dr. Handy Henderson Work Phone: [facility] Work Phone: 09-20-2021 09:35-0400 Systolic blood pressure 144 mm[Hg] Dr. Handy Henderson Work Phone: [facility] Work Phone: 08-17-2021 14:26-0400 Body temperature 97 [degF] Handy Henderson DO Work Phone: [facility] 08-17-2021 14:26-0400 Body weight 116.12 kg Handy Henderson DO Work Phone: [facility] 08-17-2021 14:26-0400 Diastolic blood pressure 60 mm[Hg] Handy Henderson DO Work Phone: [facility] 08-17-2021 14:26-0400 Heart rate 64 /min Handy Henderson DO Work Phone: [facility] 08-17-2021 14:26-0400 Respiratory rate 16 /min Handy Henderson DO Work Phone: [facility] 08-17-2021 14:26-0400 Systolic blood pressure 124 mm[Hg] Handy Romerorison DO Work Phone: [facility] 08-08-2021 15:48-0400 Body temperature 97.7 [degF] Elisa Bogner PA-C Work Phone: [facility] 08-08-2021 15:48-0400 Body weight 116.12 kg Elisa Bogner PA-C Work Phone: [facility] 08-08-2021 15:48-0400 Diastolic blood pressure 62 mm[Hg] Elisa Bogner PA-C Work Phone: [facility] 08-08-2021 15:48-0400 Heart rate 85 /min Elisa Bogner PA-C Work Phone: [facility] 08-08-2021 15:48-0400 Respiratory rate 21 /min Elisa Bogner PA-C Work Phone: [facility] 08-08-2021 15:48-0400 SaO2% (BldA) [Mass fraction] 99 % Elisa Bogner PA-C Work Phone: [facility] 08-08-2021 15:48-0400 Systolic blood pressure 138 mm[Hg] Elisa Bogner PA-C Work Phone: [facility] 07-28-2021 08:32-0400 Body height 177.[address] Handy Henderson Work Phone: [facility] Work Phone: 07-28-2021 08:32-0400 Body mass index (BMI) [Ratio] 36.7 kg/m2 Dr. Handy Henderson Work Phone: [facility] Work Phone: 07-28-2021 08:32-0400 Body temperature 97.1 [degF] Dr. Handy Henderson Work Phone: [facility] Work Phone: 07-28-2021 08:32-0400 Body weight 116.[address] Handy Henderson Work Phone: [facility] Work Phone: 07-28-2021 08:32-0400 Diastolic blood pressure 84 mm[Hg] Dr. Handy Henderson Work Phone: [facility] Work Phone: 07-28-2021 08:32-0400 Heart rate 77 /min Dr. Handy Henderson Work Phone: [facility] Work Phone: 07-28-2021 08:32-0400 Respiratory rate 18 /min Dr. Handy Henderson Work Phone: [facility] Work Phone: 07-28-2021 08:32-0400 SaO2% (BldA) [Mass fraction] 100 % Dr. Handy Henderson Work Phone: [facility] Work Phone: 07-28-2021 08:32-0400 Systolic blood pressure 126 mm[Hg] Dr. Handy Henderson Work Phone: [facility] Work Phone: 07-11-2021 14:08-0400 Body weight 113.58 kg Maya Zurawick [employer]OPEWALK ROPE MAKER.ENGINE SETTER Work Phone: [facility] 07-11-2021 14:08-0400 Diastolic blood pressure 62 mm[Hg] Maya Zurawick [employer]OPEW[employer] ROPE MAKER.ENGINE SETTER Work Phone: [facility] 07-11-2021 14:08-0400 Heart rate 72 /min Maya Zurawick [employer]OPEWALK ROPE MAKER.ENGINE SETTER Work Phone: [facility] 07-11-2021 14:08-0400 Respiratory rate 18 /min Maya Zurawick ROPEWALK ROPE MAKER.ENGINE SETTER Work Phone: [facility] 07-11-2021 14:08-0400 Systolic blood pressure 130 mm[Hg] Maya Zurawick ROPEWALK ROPE MAKER.ENGINE SETTER Work Phone: [facility] 07-06-2021 15:22-0400 Body mass index (BMI) [Ratio] 35.79 kg/m2 Sharon Acuna MD Work Phone: [facility] 07-06-2021 15:22-0400 Body temperature 97.9 [degF] Sharon Acuna MD Work Phone: [facility] 07-06-2021 15:22-0400 Body weight 113.13 kg Sharon Acuna MD Work Phone: [facility] 07-06-2021 15:22-0400 Diastolic blood pressure 76 mm[Hg] Sharon Acuna MD Work Phone: [facility] 07-06-2021 15:22-0400 Heart rate 74 /min Sharon Acuna MD Work Phone: [facility] 07-06-2021 15:22-0400 Systolic blood pressure 132 mm[Hg] Sharon Acuna MD Work Phone: [facility] 06-21-2021 11:12-0400 Body temperature 98.01 [degF] Dashawn Zimmer DO Work Phone: [facility] 06-21-2021 11:12-0400 Diastolic blood pressure 69 mm[Hg] Dashawn Zimmer DO Work Phone: [facility] 06-21-2021 11:12-0400 Heart rate 73 /min Dashawn Zimmer DO Work Phone: [facility] 06-21-2021 11:12-0400 Respiratory rate 16 /min Dashawnjose Zimmer DO Work Phone: [facility] 06-21-2021 11:12-0400 SaO2% (BldA) [Mass fraction] 98 % Dashawn Zimmer DO Work Phone: [facility] 06-21-2021 11:12-0400 Systolic blood pressure 136 mm[Hg] Dashawn Zimmer DO Work Phone: [facility] 06-20-2021 08:38-0400 Body mass index (BMI) [Ratio] 34.62 kg/m2 Dashawn Zimmer DO Work Phone: [facility] 06-20-2021 08:38-0400 Body weight 109.45 kg Dashawn Zimmer DO Work Phone: [facility] 06-17-2021 17:32-0400 Body height 177.8 cm Dashawn Zimmer DO Work Phone: [facility] 06-11-2021 20:30-0500 Body temperature 98 [degF] Dr. Handy Henderson Work Phone: [facility] Work Phone: 06-11-2021 20:30-0500 Diastolic blood pressure 93 mm[Hg] Dr. Handy Henderson Work Phone: [facility] Work Phone: 06-11-2021 20:30-0500 Heart rate 82 /min Dr. Handy Henderson Work Phone: [facility] Work Phone: 06-11-2021 20:30-0500 Respiratory rate 16 /min Dr. Handy Henderson Work Phone: [facility] Work Phone: 06-11-2021 20:30-0500 SaO2% (BldA) [Mass fraction] 100 % Dr. Handy Henderson Work Phone: [facility] Work Phone: 06-11-2021 20:30-0500 Systolic blood pressure 157 mm[Hg] Dr. Handy Henderson Work Phone: [facility] Work Phone: 06-11-2021 06:59-0500 Body weight 109.[address] Handy Henderson Work Phone: [facility] Work Phone: 06-10-2021 12:49-0500 Body mass index (BMI) [Ratio] 34.7 kg/m2 Dr. Handy Henderson Work Phone: [facility] Work Phone: 06-09-2021 13:05-0500 Body temperature 98.4 [degF] Dr. Handy Henderson Work Phone: [facility] Work Phone: 06-09-2021 13:05-0500 Diastolic blood pressure 76 mm[Hg] Dr. Handy Henderson Work Phone: [facility] Work Phone: 06-09-2021 13:05-0500 Heart rate 78 /min Dr. Handy Henderson Work Phone: [facility] Work Phone: 06-09-2021 13:05-0500 Respiratory rate 14 /min Dr. Handy Henderson Work Phone: [facility] Work Phone: 06-09-2021 13:05-0500 SaO2% (BldA) [Mass fraction] 99 % Dr. Handy Henderson Work Phone: [facility] Work Phone: 06-09-2021 13:05-0500 Systolic blood pressure 142 mm[Hg] Dr. Handy Henderson Work Phone: [facility] Work Phone: 06-09-2021 11:05-0500 Body mass index (BMI) [Ratio] 34.7 kg/m2 Dr. Handy Henderson Work Phone: [facility] Work Phone: 06-09-2021 11:05-0500 Body weight [address] Handy Henderson Work Phone: [facility] Work Phone: 06-08-2021 04:37-0500 Diastolic blood pressure 95 mm[Hg] Handy Henderson Other Phone: [facility] 06-08-2021 04:37-0500 Heart rate 72 /min Handy Henderson Other Phone: [facility] 06-08-2021 04:37-0500 Respiratory rate 16 /min Handy Henderson Other Phone: [facility] 06-08-2021 04:37-0500 SaO2% (BldA) [Mass fraction] 100 % Hnady Henderson Other Phone: [facility] 06-08-2021 04:37-0500 Systolic blood pressure 189 mm[Hg] Handy Henderson Other Phone: [facility] 05-30-2021 08:09-0500 Body mass index (BMI) [Ratio] 34.7 kg/m2 Dr. Handy Henderson Work Phone: [facility] Work Phone: 05-30-2021 08:09-0500 Body temperature 98.2 [degF] Dr. Handy Henderson Work Phone: [facility] Work Phone: 05-30-2021 08:09-0500 Body weight 109.[address] Handy Henderson Work Phone: [facility] Work Phone: 05-30-2021 08:09-0500 Diastolic blood pressure 84 mm[Hg] Dr. Handy Henderson Work Phone: [facility] Work Phone: 05-30-2021 08:09-0500 Heart rate 84 /min Dr. Handy Henderson Work Phone: [facility] Work Phone: 05-30-2021 08:09-0500 Respiratory rate 18 /min Dr. Handy Henderson Work Phone: [facility] Work Phone: 05-30-2021 08:09-0500 SaO2% (BldA) [Mass fraction] 98 % Dr. Handy Henderson Work Phone: [facility] Work Phone: 05-30-2021 08:09-0500 Systolic blood pressure 167 mm[Hg] Dr. 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); Pseudophakia of both eyes Start: 09-24-2024 End: 09-24-2024 ambulatory GEORGE PACHECO Facility:[facility] Start: 09-17-2024 End: 09-17-2024 Patient encounter procedure Handy Henderson DO Work Phone: [facility] Comment on above: Essential hypertensi on (Primary Dx); Screening for colon cancer; 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); Vitamin D deficiency; Hypercholesteremia; LVH (left ventricular hypertrophy); Aortic dilatation; NORBERTO (obstructive sleep apnea); Status post kidney transplant (HCC); Vitamin B12 deficiency Start: 09-17-2024 End: 09-17-2024 ambulatory HANDY HENDERSON Facility:[facility] Start: 08-13-2024 End: 08-14-2024 Telephone encounter Handy Henderson DO Work Phone: [facility] Comment on above: Results Start: 08-13-2024 End: 08-13-2024 Patient encounter procedure Mirna VALERO -[facility] Work Phone: Start: 08-13-2024 End: 08-13-[address] Handy Henderson DO Work Phone: [facility] Work Phone: Start: 08-11-2024 End: 08-11-2024 Patient encounter procedure Triny Palmer Work Phone: Podiatry Comment on above: Onychomycosis (Prima ry Dx); Pain in toe of left foot; Pain in toe of right foot; Diabetic polyneuropathy associated with type 2 diabetes mellitus (HCC); Venous insufficiency; Nevus Start: 08-11-2024 End: 08-11-2024 ambulatory TRINY PALMER Facility:[facility] Start: 08-11-2024 End: 08-11-2024 ambulatory MIGEL GÓMEZ Facility:[facility] Start: 07-07-2024 Non-patient / Non-visit Dr. Giselle ZUÑIGA -[facility] Start: 07-07-2024 End: 07-07-[address] Handy Henderson DO Work Phone: [facility] Work Phone: Start: 07-07-2024 End: 07-07-2024 Patient encounter procedure Radha BRONSON -[facility] Work Phone: Start: 07-07-2024 End: 07-07-2024 ambulatory Handy Henderson Facility:[facility] Start: 06-17-2024 End: 06-17-2024 ambulatory HANDY HENDERSON Facility:[facility] Start: 06-17-2024 End: 06-17-2024 Patient encounter procedure Handy Henderson DO Work Phone: [facility] Comment on above: Fatigue, unspecified type (Primary Dx); Hypercholesteremia; Vitamin D deficiency; LVH (left ventricular hypertrophy); Aortic dilatation ([facility]); Essential hypertension; Type 1 diabetes mellitus with stable proliferative retinopathy of both eyes ([facility]); NORBERTO (obstructive sleep apnea); Status post kidney transplant; Chronic midline low back pain without sciatica Start: 06-03-2024 End: 06-03-2024 Patient encounter procedure Radha BRONSON -[facility] Work Phone: Start: 06-03-2024 End: 06-03-2024 ambulatory Handy Henderson [place] Start: 06-03-2024 End: 06-03-2024 ambulatory MIGEL GÓMEZ Facility:[facility] Start: 05-23-2024 End: 05-23-2024 ambulatory GEORGE PACHECO Facility:[facility] Start: 05-23-2024 End: 05-23-2024 Patient encounter procedure George Pacheco MD Work Phone: Ophthalmology Comment on above: Primary open angle g laucoma (POAG) of right eye, mild stage (Primary Dx); Primary open angle glaucoma (POAG) of left eye, mild stage; Optic cupping of both eyes; 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); Cataract, secondary obscuring vision, right; Pseudophakia of both eyes; Essential hypertension; Hypercholesteremia Start: 05-12-2024 End: 05-12-2024 ambulatory TRINY PALMER Facility:[facility] Start: 05-12-2024 End: 05-12-2024 Patient encounter procedure Triny Palmer Work Phone: Podiatry Comment on above: Onychomycosis (Prima ry Dx); Pain in toe of left foot; Pain in toe of right foot; Diabetic polyneuropathy associated with type 2 diabetes mellitus (HCC); Venous insufficiency Start: 05-10-2024 End: 05-10-2024 ambulatory HANDY L HENDERSON Facility:[facility] Start: 05-10-2024 End: 05-10-2024 Patient encounter procedure Nikky Chen APRN.ENGINE SETTER Work Phone: [facility] Comment on above: Enteritis due to Rot avirus (Primary Dx) Start: 04-11-2024 End: 04-11-2024 Refill George Pacheco MD Work Phone: Ophthalmology Comment on above: Refill Request Start: 03-12-2024 End: 03-12-2024 ambulatory HANDY L HENDERSON Facility:[facility] Start: 02-21-2024 End: 02-21-2024 ambulatory HANDY L HENDERSON Facility:[facility] Start: 02-13-2024 End: 02-13-2024 ambulatory Handy Henderson [place] Start: 02-04-2024 End: 02-04-2024 ambulatory Handy Henderson Facility:[facility] Start: 01-28-2024 End: 01-28-2024 ambulatory Reyes Perea PT Work Phone: [facility] Comment on above: Degeneration of inte rvertebral disc of lumbar region with discogenic back pain (Primary Dx) Start: 01-15-2024 End: 03-13-2024 Telephone encounter Handy Henderson DO Work Phone: [facility] Comment on above: Results Start: 01-15-2024 End: 01-15-2024 ambulatory Reyes Perea [facility] Comment on above: Degeneration of inte rvertebral disc of lumbar region with discogenic back pain (Primary Dx) Start: 12-13-2023 End: 12-17-2023 Telephone encounter Handy Henderson DO Work Phone: [facility] Comment on above: Results Start: 12-11-2023 End: 12-11-2023 Subsequent hospital visit by physician K[facility] Work Phone: Radiology Comment on above: Chronic midline low back pain without sciatica [M54.50, G89.29] Start: 12-11-2023 End: 12-11-2023 ambulatory HANDY L HENDERSON Facility:[facility] Start: 12-11-2023 End: 12-11-2023 Patient encounter procedure Handy Ogon DO Work Phone: [facility] Comment on above: Chronic midline low back pain without sciatica (Primary Dx); Need for influenza vaccination; Lumbar paraspinal muscle spasm Start: 12-10-2023 End: 12-10-2023 ambulatory HANDY L HENDERSON Facility:[facility] Start: 12-04-2023 End: 12-04-2023 ambulatory Handy Henderson [place] Start: 11-27-2023 End: 11-27-2023 ambulatory HANDY L HENDERSON Facility:[facility] Start: 11-27-2023 End: 11-27-2023 Patient encounter procedure Triny Palmer Work Phone: Podiatry Comment on above: Onychomycosis (Prima ry Dx); Pain in toe of left foot; Pain in toe of right foot; Diabetic polyneuropathy associated with type 2 diabetes mellitus (HCC) Start: 11-12-2023 End: 11-12-2023 ambulatory HANDY L HENDERSON Facility:[facility] Start: 11-12-2023 End: 11-12-2023 Patient encounter procedure George Pacheco MD Work Phone: Ophthalmology Comment on above: Primary open angle g laucoma (POAG) of right eye, mild stage (Primary Dx); Primary open angle glaucoma (POAG) of left eye, mild stage; Optic cupping of both eyes; 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); Essential hypertension; Hypercholesteremia Start: 11-11-2023 ambulatory Handy Henderson Facilit y:[facility] Start: 11-07-2023 End: 11-07-2023 ambulatory HANDY L HENDERSON Facility:[facility] Start: 11-07-2023 End: 11-07-2023 Patient encounter procedure Glynn Leon MD Work Phone: [facility] Comment on above: Acute non-recurrent sinusitis, unspecified location (Primary Dx) Start: 11-06-2023 End: 11-06-2023 Office outpatient visit 25 minutes Mirna Stuart [employer]WALK ROPE MAKER-ENGINE SETTER Work Phone: [facility] Comment on above: Kidney replaced by t ransplant (Primary Dx); Aftercare following organ transplant; Immunosuppressed status; Abnormal blood chemistry Start: 11-06-2023 ambulatory HANDY L HENDERSON Facil ity:[facility] Start: 10-25-2023 ambulatory Abbey Rousseau Facility:[facility] Start: 10-25-2023 End: 10-31-2023 ambulatory Abbey Rousseau Facility:[facility] Start: 10-11-2023 ambulatory Abbey Rousseau Facility:[facility] Start: 09-28-2023 End: 09-28-2023 ambulatory HANDY L HENDERSON Facility:[facility] Start: 09-27-2023 ambulatory Abbey Rousseau Facility:[facility] Start: 09-27-2023 End: 09-30-2023 ambulatory Hnady Henderson Facility:[facility] Start: 09-20-2023 ambulatory Handy Henderson Facilit y:[facility] Start: 09-14-2023 ambulatory Handy Henderson Facilit y:[facility] Start: 09-11-2023 End: 09-11-2023 Patient encounter procedure George Pacheco MD Work Phone: Ophthalmology Comment on above: Primary open angle g laucoma (POAG) of right eye, mild stage (Primary Dx); Primary open angle glaucoma (POAG) of left eye, mild stage; Optic cupping of both eyes; 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); Essential hypertension; Hypercholesteremia Start: 08-20-2023 Telephone encounter Triny Jennings Work Phone: Podiatry Comment on above: Orders (Wound Care r eferral) Start: 07-30-2023 End: 07-30-2023 Patient encounter procedure Triny Palmer Work Phone: Podiatry Comment on above: Venous insufficiency (Primary Dx); Onychomycosis; Pain in toe of left foot; Pain in toe of right foot; Diabetic polyneuropathy associated with type 2 diabetes mellitus (HCC) Start: 07-26-2023 End: 07-26-2023 Patient encounter procedure Irlanda Issa APRN.CNP Work Phone: [facility] Comment on above: COPD with exacerbati on (HCC) (Primary Dx) Start: 07-17-2023 End: 07-17-2023 Patient encounter procedure Handy Henderson DO Work Phone: [facility] [place] Comment on above: Bilateral leg edema (Primary Dx); Hypercholesteremia; Moderate protein-calorie malnutrition (HCC); COPD with exacerbation (HCC); Secondary hyperparathyroidism of renal origin (HCC); Polycythemia vera (HCC); Aortic dilatation (HCC); LVH (left ventricular hypertrophy); NORBERTO (obstructive sleep apnea); Immunosuppressed status (HCC); 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 Cristiane Henderson Work Phone: [facility] Start: 06-21-2023 End: 06-21-2023 Admission to same day surgery center Dr. Handy Henderson Work Phone: [facility]-Banking Teacher/Special Procedures Work Phone: Start: 06-21-2023 End: 06-21-[address] Handy Henderson Work Phone: [facility] Work Phone: Start: 06-15-2023 Telephone encounter Handy steen DO Work Phone: [facility] Comment on above: c-pap supplies/form/ DASCO Start: 06-10-2023 Telephone encounter [facility] Work Phone: [facility] Comment on above: Medication Problem Start: 06-09-2023 End: 06-09-2023 Patient encounter procedure Kerline Sridevi ONEILLENGINE SETTER Work Phone: [facility] Comment on above: Acute non-recurrent sinusitis, unspecified location (Primary Dx) Start: 05-31-2023 End: 05-31-2023 Patient encounter procedure Triny Palmer Work Phone: Podiatry Comment on above: Venous insufficiency (Primary Dx) Start: 05-29-2023 Refill Handy billingsley DO Work Phone: [facility] Comment on above: Refill Request Start: 05-24-2023 Telephone encounter Handy steen DO Work Phone: [facility] Start: 05-14-2023 Telephone encounter Handy steen DO Work Phone: [facility] Comment on above: Office Note Needing signed Start: 05-07-2023 End: 05-07-[address] Handy Henderson Work Phone: [facility] Work Phone: Start: 05-07-2023 End: 05-07-[address] Handy Henderson Work Phone: [facility] Work Phone: Start: 05-03-2023 End: 05-03-2023 Patient encounter procedure Triny Palmer Work Phone: Podiatry Comment on above: Skin ulcer of toe of right foot with fat layer exposed (HCC) (Primary Dx); Hammertoe of right foot; Venous insufficiency; Venous stasis dermatitis Start: 04-25-2023 End: 04-25-2023 Emergency department patient visit Dr. Handy Henderson Work Phone: [facility]-Emergency Department Work Phone: Start: 04-12-2023 End: 04-12-[address] Handy Henderson Work Phone: [facility] Surgery Work Phone: Start: 04-06-2023 Non-patient / Non-visit Dr. Cristiane Henderson Work Phone: [facility] Start: 04-06-2023 End: 04-06-[address] Handy Henderson Work Phone: [facility] Work Phone: Start: 04-06-2023 End: 04-06-[address] Handy Henderson Work Phone: [facility]-Cardiovascul ar Services Work Phone: Start: 03-01-2023 End: 03-01-2023 Patient encounter procedure Triny Palmer Work Phone: Podiatry Comment on above: Skin ulcer of toe of right foot with fat layer exposed (HCC) (Primary Dx); Hammertoe of right foot; Venous insufficiency; Diabetic mononeuropathy associated with diabetes mellitus due to underlying condition (HCC) Start: 02-14-2023 End: 02-14-[address] Handy Henderson Work Phone: [facility] Endocrinology Work Phone: Start: 02-09-2023 Telephone encounter Handy steen DO Work Phone: [facility] [place] Comment on above: Need more informatio n for diabetic shoes Start: 01-16-2023 End: 01-16-2023 Patient encounter procedure Triny Penaben Work Phone: Podiatry Comment on above: Skin ulcer of toe of right foot with fat layer exposed (HCC) (Primary Dx); Diabetic mononeuropathy associated with diabetes mellitus due to underlying condition (HCC); Hammertoe of right foot; Venous insufficiency; Onychomycosis; Pain in toe of left foot; Pain in toe of right foot; Swelling of lower leg Start: 01-05-2023 Telephone encounter Triny Jennings Work Phone: Podiatry Comment on above: Orders Start: 12-25-2022 End: 12-25-2022 Patient encounter procedure Triny Penaben Work Phone: Podiatry Comment on above: Skin ulcer of toe of right foot with fat layer exposed (HCC) (Primary Dx); Diabetic mononeuropathy associated with diabetes mellitus due to underlying condition (HCC); Hammertoe of right foot Start: 11-28-2022 End: 11-28-2022 Patient encounter procedure Triny Penaben Work Phone: Podiatry Comment on above: Skin ulcer of toe of right foot with fat layer exposed (HCC) (Primary Dx); Diminished pulses in lower extremity; Diabetic mononeuropathy associated with diabetes mellitus due to underlying condition (HCC) Start: 11-08-2022 End: 11-08-2022 Patient encounter procedure Maya Holguin APRN.ENGINE SETTER Work Phone: [facility] Comment on above: 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) (Primary Dx) Start: 11-03-2022 End: 11-03-2022 Patient encounter procedure Kerline Laureano APRN.ENGINE SETTER Work Phone: [facility] Comment on above: Sore on toe (Primary Dx) Start: 10-17-2022 End: 10-17-2022 Patient encounter procedure Handy Henderson DO Work Phone: [facility] [place] Comment on above: Left hand pain (Prim warren Dx); Seasonal allergies; Hypercholesteremia; Status post kidney transplant; Essential hypertension; 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); Bilateral leg edema; Obesity, Class II, BMI 35-39.9; 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); Secondary hyperparathyroidism of renal origin (HCC) Start: 10-12-2022 Refill Handy billingsley DO Work Phone: [facility] Comment on above: Refill Request Start: 10-09-2022 End: 10-09-2022 Patient encounter procedure George Pacheco MD Work Phone: Ophthalmology Comment on above: Primary open angle g laucoma (POAG) of right eye, mild stage (Primary Dx); Primary open angle glaucoma (POAG) of left eye, mild stage; Optic cupping of both eyes; 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); 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) Start: 10-05-2022 End: 10-05-2022 Office outpatient visit 40 minutes Migel Gómez MD Work Phone: [facility] Comment on above: Other complication o f kidney transplant (Primary Dx) Start: 09-18-2022 End: 09-18-2022 Patient encounter procedure Jignesh Oliver MD Work Phone: Orthopaedics Comment on above: Closed nondisplaced fracture of base of fourth metacarpal bone of left hand, initial encounter (Primary Dx); Left hand pain; Moderate protein-calorie malnutrition (HCC) Start: 07-24-2022 End: 07-24-2022 Subsequent hospital visit by physician Kaleigh [facility] Work Phone: Radiology Comment on above: Left hand pain [M79. 642] Start: 07-24-2022 End: 07-24-2022 Patient encounter procedure Tara Carballo APRN.CNP Work Phone: [facility] Comment on above: Left hand pain (Prim warren Dx); Fall, sequela Start: 07-21-2022 Refill George denney MD Work Phone: Ophthalmology Comment on above: Refill Request Start: 07-10-2022 Refill Maya Holguin ROPEWALK ROPE MAKER.ENGINE SETTER Work Phone: [facility] Comment on above: Refill Request Start: 07-06-2022 Refill Maya Holguin ROPEWALK ROPE MAKER.ENGINE SETTER Work Phone: [facility] Comment on above: Med Change Request Start: 07-03-2022 Refill Maya Holguin ROPEWALK ROPE MAKER.ENGINE SETTER Work Phone: [facility] Comment on above: Refill Request Start: 06-19-2022 End: 06-19-2022 Patient encounter procedure George Pacheco MD Work Phone: Ophthalmology Comment on above: Primary open angle g laucoma (POAG) of right eye, mild stage (Primary Dx); Primary open angle glaucoma (POAG) of left eye, mild stage; Optic cupping of both eyes; 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) Start: 06-12-2022 End: 06-12-2022 Patient encounter procedure Triny Palmer Work Phone: Podiatry Comment on above: Onychomycosis (Prima ry Dx); Pain in toe of left foot; Pain in toe of right foot; Other diabetic neurological complication associated with type 2 diabetes mellitus (HCC) Start: 06-09-2022 Refill Handy billingsley DO Work Phone: [facility] Comment on above: Refill Request (NEED S TODAY) Start: 05-10-2022 End: 05-10-2022 Patient encounter procedure Handy Henderson DO Work Phone: [facility] Comment on above: Essential hypertensi on (Primary Dx); URI, acute; Status post kidney transplant; 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 Handy Henderson Work Phone: [facility] Work Phone: Start: 04-28-2022 End: 04-28-[address] Handy Henderson Work Phone: [facility]-Laboratory Start: 03-17-2022 End: 03-17-[address] Handy Henderson Work Phone: [facility] [facility] Start: 03-07-2022 End: 03-07-2022 Patient encounter procedure Triny Penaben Work Phone: Podiatry Comment on above: Onychomycosis (Prima ry Dx); Pain in toe of left foot; Pain in toe of right foot; Other diabetic neurological complication associated with type 2 diabetes mellitus (HCC) Start: 02-22-2022 End: 02-22-[address] 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); Diarrhea, unspecified type Start: 02-01-2022 End: 02-01-2022 Patient encounter procedure George Pacheco MD Work Phone: Ophthalmology Comment on above: Status post eye surg celestino (Primary Dx); Primary open angle glaucoma (POAG) of both eyes, mild stage Start: 01-30-2022 End: 01-30-2022 Emergency department patient visit [facility]-Emergency Department Start: 01-26-2022 Refill Handy billingsley DO Work Phone: [facility] Comment on above: Refill Request Start: 01-13-2022 End: 01-13-2022 Patient encounter procedure George Pacheco MD Work Phone: Ophthalmology Comment on above: Status post eye surg celestino (Primary Dx) Start: 01-12-2022 End: 01-12-[address] George Pacheco Facility:[id number] Start: 01-09-2022 End: 01-09-2022 Patient encounter procedure Rosaura Cole OD Work Phone: Optometry Comment on above: Hyperopia, bilateral (Primary Dx); Regular astigmatism, bilateral; Pseudophakia Start: 01-09-2022 Telephone encounter Handy steen DO Work Phone: [facility] Comment on above: Results Start: 01-07-2022 End: 01-07-2022 Patient encounter procedure George Pacheco MD Work Phone: Ophthalmology Comment on above: Primary open angle g laucoma (POAG) of right eye, mild stage (Primary Dx); Primary open angle glaucoma (POAG) of left eye, mild stage; 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); Pseudophakia of both eyes; Essential hypertension; Hypercholesteremia Start: 12-12-2021 End: 12-12-2021 Patient encounter procedure George Pacheco MD Work Phone: Ophthalmology Comment on above: Primary open angle g laucoma (POAG) of left eye, mild stage (Primary Dx); Primary open angle glaucoma (POAG) of right eye, mild stage; Status post eye surgery; 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); Pseudophakia of both eyes; Essential hypertension; Hypercholesteremia Start: 11-10-2021 End: 11-10-2021 OT/PT/Speech Visit Andrés Frankel PT [facility] Comment on above: Status post kidney t ransplant (Primary Dx); Hip pain; Chronic pain of both knees; Balance disorder Start: 11-07-2021 End: 11-07-2021 Patient encounter procedure George Pacheco MD Work Phone: Ophthalmology Comment on above: Primary open angle g laucoma (POAG) of right eye, mild stage (Primary Dx); Primary open angle glaucoma (POAG) of left eye, mild stage; 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); Pseudophakia of both eyes Start: 10-26-2021 End: 10-26-2021 Patient encounter procedure Triny Palmer Work Phone: Podiatry Comment on above: Onychomycosis (Prima ry Dx); Pain in toe of left foot; Pain in toe of right foot; Other diabetic neurological complication associated with type 2 diabetes mellitus (HCC); Venous insufficiency Start: 10-13-2021 End: 10-13-2021 Office outpatient visit 40 minutes Migel Gómez MD Work Phone: [facility] Comment on above: Kidney replaced by t ransplant (Primary Dx); Mixed hyperlipidemia; Anemia, unspecified type; B-cell abnormality; Abnormal blood chemistry; Follow-up examination following treatment with high-risk medication Start: 10-11-2021 End: 10-11-2021 OT/PT/Speech Visit Andrés Frankel PT [facility] Comment on above: Status post kidney t ransplant (Primary Dx); Chronic pain of both knees; Balance disorder; Hip pain Start: 10-07-2021 End: 10-07-2021 OT/PT/Speech Visit Theodora Mejia PTA Work Phone: [facility] Comment on above: Status post kidney t ransplant (Primary Dx); Chronic pain of both knees; Balance disorder; Hip pain Start: 10-04-2021 End: 10-04-2021 OT/PT/Speech Visit Theodora Mejia PTA Work Phone: [facility] Comment on above: Status post kidney t ransplant (Primary Dx); Chronic pain of both knees; Balance disorder; Hip pain Start: 09-29-2021 End: 09-29-2021 OT/PT/Speech Visit Andrés Frankel PT [facility] Comment on above: Status post kidney t ransplant (Primary Dx); Chronic pain of both knees; Balance disorder; Hip pain Start: 09-23-2021 End: 09-23-2021 OT/PT/Speech Visit Theodora Mejia PTA Work Phone: [facility] Comment on above: Status post kidney t ransplant (Primary Dx); Chronic pain of both knees; Balance disorder; Hip pain Start: 09-20-2021 End: 09-20-[address] Handy Henderson Work Phone: [facility] Start: 09-13-2021 End: 09-13-2021 OT/PT/Speech Visit Andrés Frankel PT [facility] Comment on above: Status post kidney t ransplant (Primary Dx); Hip pain; Chronic pain of both knees; Balance disorder Start: 09-12-2021 Telephone encounter Handy steen DO Work Phone: [facility] Comment on above: Home [facility] Start: 08-30-2021 Telephone encounter Maya Harjinder fleming APRN.CNP Work Phone: [facility] Comment on above: certification and POC Start: 08-18-2021 Telephone encounter Ida koenig PA-C Work Phone: [facility] Comment on above: Results Start: 08-17-2021 End: 08-17-2021 Patient encounter procedure Handy Henderson DO Work Phone: [facility] Comment on above: Diarrhea, unspecifie d type (Primary Dx); Hypercholesteremia; Status post kidney transplant; Hip pain; Chronic pain of both knees; Balance disorder; Essential hypertension; 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); Essential hypertension; Hypercholesteremia Start: 07-06-2021 End: 07-06-2021 Office outpatient visit 10 minutes Sharon Acuna MD Work Phone: [facility] Comment on above: Kidney replaced by t ransplant (Primary Dx); Long-term use of immunosuppressant medication; Abnormal blood chemistry; High risk medication use; Immunosuppressed status; Aftercare following organ transplant; Other general symptoms and signs Start: 07-01-2021 Telephone encounter Handy steen DO Work Phone: [facility] Comment on above: Home Health Update Start: 06-24-2021 Telephone encounter Handy steen DO Work Phone: [facility] Comment on above: Home Health Orders Start: 06-22-2021 ambulatory [facility] Start: 06-12-2021 Non-patient / Non-visit Dr. Cristiane Henderson Work Phone: [facility] Start: 06-11-2021 End: 06-21-2021 Evaluation and management of inpatient Dashawn Zimmer DO Work Phone: [id number] Comment on above: Encephalopathy Start: 06-11-2021 Non-patient / Non-visit Dr. Cristiane Henderson Work Phone: [facility] Start: 06-10-2021 End: 06-11-2021 Evaluation and management of inpatient Dr. Handy Henderson Work Phone: [facility]-Progressive Care Unit Start: 06-10-2021 Non-patient / Non-visit Dr. Cristiane Henderson Work Phone: [facility] Start: 06-09-2021 End: 06-09-2021 Emergency department patient visit Dr. Handy Henderson Work Phone: [facility]-Emergency Department Start: 06-08-2021 End: 06-08-2021 Emergency department patient visit Abraham Hammond [facility] Emergency 16 Start: 05-30-2021 End: 05-30-[address] Handy Henderson Work Phone: [facility] Start: 05-30-2021 End: 05-30-[address] Handy Henderson Work Phone: [place] [id number] Start: 05-30-[address] Handy Henderson Work Phone: [place] [id number] Start: 05-28-2021 End: 05-28-[address] Handy Henderson Work Phone: [place] [id number] Start: 05-28-[address] Handy Henderson Work Phone: [place] [id number] Start: 05-23-[address] Handy Henderson Work Phone: [place] [id number] Start: 05-19-[address] Handy Henderson Work Phone: [place] [id number] Start: 04-19-2021 End: 04-19-2021 Subsequent hospital visit by physician Kaleigh [facility] Work Phone: Radiology Comment on above: Right hip pain [M25. 551] Start: 01-30-2018 Physical examination Handy corrigan DO Work Phone: [facility] Work Phone: Procedures Date Procedure Procedure Detail Performing Clinician Start: 09-24-2024 End: 09-24-2024 Visual field xm uni/bi w/interp extended exam George Pacheco MD Work Phone: Start: 05-23-2024 Fundus photography w/interpretation & report George Pacheco MD Work Phone: Start: 12-11-2023 Radex spine thoracic 3 views Handy Henderson DO Work Phone: Start: 11-12-2023 Computerized ophthal brandon imaging optic nerve George Pacheco MD Work Phone: Start: 11-06-2023 Creatinine other source Mirna Stuart ROPEWALK ROPE MAKER-ENGINE SETTER Work Phone: Start: 11-06-2023 Urnls dip stick/tabl et reagent auto microscopy Mirna Stuart ROPEWALK ROPE MAKER-ENGINE SETTER Work Phone: Start: 09-11-2023 End: 09-11-2023 Visual field xm uni/bi w/interp extended exam George Pacheco MD Work Phone: Start: 11-28-2022 Cul bact xcpt urine blood/stool aerobic isol Triny Palmer Work Phone: Start: 10-09-2022 Fundus photography w/interpretation & report George Pacheco MD Work Phone: Start: 07-24-2022 Radex hand minimum 3 views Tara Hiltonutzman ROPEWALK ROPE MAKER.ENGINE SETTER Work Phone: Start: 06-19-2022 End: 06-19-2022 Visual field xm uni/bi w/interp extended exam George Pacheco MD Work Phone: Start: 12-12-2021 H/O: surgery Status post ey e surgery George Pacheco MD Work Phone: Start: 11-07-2021 End: 11-07-2021 Visual field xm uni/bi w/interp extended exam George Pacheco MD Work Phone: Start: 11-07-2021 Computerized ophthal brandon imaging optic nerve George Pacheco MD Work Phone: Start: 10-13-2021 Antibody hla class i high definition panel qual Migel Gómez MD Work Phone: Start: 10-13-2021 Assay of magnesium Rhea Gómez MD Work Phone: Start: 10-13-2021 Iadna hepatitis c qu ant & reverse custom bookbinder Migel Gómez MD Work Phone: Start: 06-21-2021 Glucose measurement, blood Darren George MD Work Phone: Start: 06-21-2021 Glucose measurement, blood Darren George MD Work Phone: Start: 06-21-2021 Basic metabolic pane l calcium total Darren George MD Work Phone: Start: 06-21-2021 Drug assay everolimus Danielle George MD Work Phone: Start: 06-21-2021 Glucose measurement, blood Darren George MD Work Phone: Start: 06-21-2021 End: 06-21-2021 Glucose measurement, blood Darren George MD Work Phone: Start: 06-20-2021 Glucose measurement, blood Darren George MD Work Phone: Start: 06-20-2021 Glucose measurement, blood Darren George MD Work Phone: Start: 06-20-2021 End: 06-20-2021 Glucose measurement, blood Darren George MD Work Phone: Start: 06-20-2021 Basic metabolic pane l calcium total Darren George MD Work Phone: Start: 06-20-2021 Drug assay everolimus Danielle George MD Work Phone: Start: 06-19-2021 Glucose measurement, blood Darren George MD Work Phone: Start: 06-19-2021 Glucose measurement, blood Darren George MD Work Phone: Start: 06-19-2021 Glucose measurement, blood Darren George MD Work Phone: Start: 06-19-2021 Glucose measurement, blood Darren George MD Work Phone: Start: 06-19-2021 Glucose measurement, blood Darren George MD Work Phone: Start: 06-19-2021 Glucose measurement, blood Darren George MD Work Phone: Start: 06-19-2021 Basic metabolic pane l calcium total Darren George MD Work Phone: Start: 06-19-2021 Drug assay everolimus U jani MARTINES Work Phone: Start: 06-18-2021 Glucose measurement, blood Darren George MD Work Phone: Start: 06-18-2021 Glucose measurement, blood Darren George MD Work Phone: Start: 06-18-2021 Glucose measurement, blood Darren George MD Work Phone: Start: 06-18-2021 Basic metabolic pane l calcium total Darren George MD Work Phone: Start: 06-18-2021 Glucose measurement, blood Darren George MD Work Phone: Start: 06-18-2021 Glucose measurement, blood Darren George MD Work Phone: Start: 06-18-2021 Glucose measurement, blood Darren George MD Work Phone: Start: 06-17-2021 Glucose measurement, blood Darren George MD Work Phone: Start: 06-17-2021 Glucose measurement, blood Darren George MD Work Phone: Start: 06-17-2021 Glucose measurement, blood Darren George MD Work Phone: Start: 06-17-2021 CARDIAC RHYTHM Other Ot her Start: 06-17-2021 End: 06-17-2021 Removal tunneled intraperitoneal catheter Unruly Diaz MD, PhD Work Phone: Start: 06-17-2021 Glucose measurement, blood Darren George MD Work Phone: Start: 06-17-2021 Glucose measurement, blood Darren George MD Work Phone: Start: 06-17-2021 Basic metabolic pane l calcium total Darren George MD Work Phone: Start: 06-17-2021 Drug screen quantita tive tacrolimus Jase Alzaeim MB/[facility] Work Phone: Start: 06-16-2021 Glucose measurement, blood Darren George MD Work Phone: Start: 06-16-2021 Glucose measurement, blood Darren George MD Work Phone: Start: 06-16-2021 Glucose measurement, blood Darren George MD Work Phone: Start: 06-16-2021 Drug screen quantita tive tacrolimus Jase Alzaeim MB/[facility] Work Phone: Start: 06-15-2021 Glucose measurement, blood Jase Alzaeim MB/[facility] Work Phone: Start: 06-15-2021 Glucose measurement, blood Jase Alzaeim MB/[facility] Work Phone: Start: 06-15-2021 Blood gases any combination ph [id number] po2 co2 [id number] Jase Alzaeim MB/[facility] Work Phone: Start: 06-15-2021 Drug screen quantita tive tacrolimus Jase Alzaeim MB/[facility] Work Phone: Start: 06-15-2021 Glucose measurement, blood Jase Alzaeim MB/[facility] Work Phone: Start: 06-15-2021 Glucose measurement, blood Jase Alzaeim MB/[facility] Work Phone: Start: 06-15-2021 Antibody treponema pallidum Jase Alzaeim MB/[facility] Work Phone: Start: 06-15-2021 Assay of folic acid serum Jase Alzaeim MB/[facility] Work Phone: Start: 06-15-2021 Iadna nos quantifica tion each organism Jase Alzaeim MB/[facility] Work Phone: Start: 06-15-2021 Mri brain brain stem w/o contrast material Jsae Alzaeim MB/[facility] Work Phone: Start: 06-14-2021 Glucose measurement, blood Jase Alzaeim MB/[facility] Work Phone: Start: 06-14-2021 Radiologic exam ches t single view Jase Alzaeim MB/[facility] Work Phone: Start: 06-14-2021 Glucose measurement, blood Jase Alzaeim MB/[facility] Work Phone: Start: 06-14-2021 EXTRA MICRO Jase Alza eim MB/BC Work Phone: Start: 06-14-2021 URINALYSIS REFLEX TO CULTURE Jase Alzaeim MB/[facility] Work Phone: Start: 06-14-2021 Urnls dip stick/tabl et reagent auto microscopy Jase Alzaeim MB/[facility] Work Phone: Start: 06-14-2021 Glucose measurement, blood Jase Alzaeim [facility] Work Phone: Start: 06-14-2021 Glucose measurement, blood Jase Alzaeim [facility] Work Phone: Start: 06-14-2021 Culture bacterial bl ood aerobic w/id isolates Jase Alzaeim MB/[facility] Work Phone: Start: 06-14-2021 Glucose measurement, blood Jase Alzaeim [facility] Work Phone: Start: 06-14-2021 Creatinine blood Dimitris Yost MD Work Phone: Start: 06-14-2021 Drug screen quantita tive tacrolimus Jase Alzaeim MB/[facility] Work Phone: Start: 06-13-2021 Glucose measurement, blood Jase Alzaeim [facility] Work Phone: Start: 06-13-2021 Glucose measurement, blood Jase Alzaeim [facility] Work Phone: Start: 06-13-2021 Drug screen quantita tive tacrolimus Peter Gonzalez MD Work Phone: Start: 06-13-2021 Hemoglobin glycosyla grayson a1c Jase Alzaeim MB/[facility] Work Phone: Start: 06-13-2021 Glucose measurement, blood Jase Alzaeim [facility] Work Phone: Start: 06-12-2021 End: 06-12-2021 Glucose measurement, blood Jase Alzaeim [facility] Work Phone: Start: 06-12-2021 Glucose measurement, blood Jase Alzaeim [facility] Work Phone: Start: 06-12-2021 Glucose measurement, blood Jase Alzaeim [facility] Work Phone: Start: 06-12-2021 EXTRA MICRO Peter Gonzalez MD Work Phone: Start: 06-12-2021 URINALYSIS REFLEX TO CULTURE Peter Gonzalez MD Work Phone: Start: 06-12-2021 Urnls dip stick/tabl et reagent auto microscopy Peter Gonzalez MD Work Phone: Start: 06-12-2021 Glucose measurement, blood Jase Alzaeim [facility] Work Phone: Start: 06-12-2021 Radiologic exam ches t single view Peter Gonzalez MD Work Phone: Start: 06-12-2021 Bilirubin direct Wilber Gonzalez MD Work Phone: Start: 06-12-2021 CBC AND ELECTRONIC DIFF Peter Gonzalez MD Work Phone: Start: 06-12-2021 Complete blood count with white cell differential, automated Peter Gonzalez MD Work Phone: Start: 06-12-2021 Drug screen quantita tive tacrolimus Peter Gonzalez MD Work Phone: Start: 06-09-2021 CT of head without contrast Dr. Handy Henderson Work Phone: Start: 06-08-2021 End: 06-08-2021 EKG impression Abraham Hammond Start: 04-19-2021 Radex hip unilateral with pelvis 2-3 views Handy Henderson DO Work Phone: Start: 03-27-2021 History of renal transplant Kidney replaced by transplant Dashawn Zimmer DO Work Phone: Start: 11-23-2020 Adult depression scr eening assessment Handy Henderson DO Work Phone: Start: 10-08-2018 Colonoscopy Handy duarte DO Work Phone: Start: 07-03-2014 History of renal transplant Status post kidney transplant Handy Henderson DO Work Phone: Start: 04-21-2011 History of placement of stent for coronary artery disease History of coronary artery stent placement Radha BRONSON Comment on above: [id number] w/ 3.0 x 33 mm Cypher Sirolimus-eluding stent, 3.0 x 8 mm Cypher Stent and dLAD w/ 2.5 x 28 mm Cypher Stent 10/31/05; cutting balloon to in-stent restenosis dLAD 09/18/08; DENISHA- dLAD w/ 2.5 30 mm [place] Stent 04/21/11 Clostridium difficil e detection Clostridium difficil e detection Dr. Handy Henderson Work Phone: Enteric Bacteriology Enteric Bacteriology Dr. Lux Henderson Work Phone: H/O: surgery Status post eye surgery George Pacheco MD Work Phone: H/O: surgery Status post eye surgery George Pacheco MD Work Phone: History of renal transplant Kidney replaced by transplant Sharon Acuna MD Work Phone: History of renal transplant Status post kidney transplant Maya Salas [employer] ROPE [employer]KER.ENGINE SETTER Work Phone: History of renal transplant Status post kidney transplant Hadny Henderson DO Work Phone: History of renal transplant Status post kidney transplant Andrés Frankel PT History of renal transplant Kidney transplant recipient Dr. Handy Henderson Work Phone: Comment on above: 01/2021 History of renal transplant Status post kidney transplant Theodora Mejia DETENTION WORKER Work Phone: History of renal transplant Status post kidney transplant Andrés Frankel PT History of renal transplant Status post kidney transplant Theodora Mejia DETENTION WORKER Work Phone: History of renal transplant Status post kidney transplant Theodora Mejia DETENTION WORKER Work Phone: History of renal transplant Status post kidney transplant Andrés Frankel PT History of renal transplant Kidney replaced by transplant Migel Gómez MD Work Phone: History of renal transplant Status post kidney transplant Andrés Frankel PT History of renal transplant Status post kidney transplant Handy Ogon DO Work Phone: History of renal transplant Status post kidney transplant Handy Ogon DO Work Phone: History of renal transplant Status post kidney transplant Handy Romerorison DO Work Phone: History of renal transplant Status post kidney transplant Handy Romerorison DO Work Phone: History of renal transplant Kidney replaced by transplant Mirna Stuart [employer] ROPE MAKER-ENGINE SETTER Work Phone: History of renal transplant Status post kidney transplant Handy Ogon DO Work Phone: History of renal transplant Kidney transplant recipient Radha Moss PA History of renal transplant Status post kidney transplant (HCC) Handy Ogon DO Work Phone: Streptococcus pneumo niae Antigen (M Dr. Handy Henderson Work Phone: Viral antigen assay Dr. Chrissie Henderson Work Phone: Plan of Treatment Date Care Activity Detail Author Start: 09-17-2025 Annual PCP Team Chronic Disease Visit Annual PCP Team Chronic Disease Visit [facility] Start: 08-11-2025 Complete blood count Hemoglobin/Hematocrit [facility] Start: 08-11-2025 Creatinine measurement Serum Creatinine [facility] Start: 06-30-2025 PROSTATE CANCER SCREENING DISCUSSION PROSTATE CANCER SCREENING DISCUSSION [facility] Start: 06-30-2025 Prostate specific antigen measurement Prostate Cancer Screening Discussion [facility] Start: 06-17-2025 Annual PCP Team Chronic Disease Visit Annual PCP Team Chronic Disease Visit [facility] Start: 06-03-2025 Complete blood count Hemoglobin/Hematocrit [facility] Start: 06-03-2025 Creatinine measurement Serum Creatinine [facility] Start: 05-23-2025 Glaucoma screening Dilated Retinal Exam [facility] Start: 03-12-2025 Annual PCP Team Chronic Disease Visit Annual PCP Team Chronic Disease Visit [facility] Start: 03-12-2025 Covid-19 Vaccine ( season) Covid-19 Vaccine () [facility] Comment on above: Postponed from 12/02/2023 (Declined at t his time) Start: 02-24-2025 End: 02-24-2025 Patient encounter procedure 02/24/2025 2:45 PM EST Office [place] [address] [place] [address] [facility] [address] [address] vf/fp Ophthalmology Comment on above: vf/fp Start: 02-20-2025 Complete blood count Hemoglobin/Hematocrit [facility] Start: 02-20-2025 Creatinine measurement Serum Creatinine [facility] Start: 12-26-2024 End: 12-26-2024 Patient encounter procedure 12/26/2024 1:40 PM EDT Office Visit [facility] [address] [place] [address] Handy Henderson, DO [address] [facility] [place] [address] 3 month follow up [facility] Comment on above: 3 month follow up Start: 12-18-2024 End: 03-19-2025 25-hydroxyvitamin D3 [Mass/volume] in Serum or Plasma VITAMIN D 25 HYDROXY Lab Routine Vitamin D deficiency Expected: 12/18/2024, Expires: 03/19/2025 [facility] Comment on above: Expected: 12/18/2024, Expires: Start: 12-18-2024 End: 03-19-2025 Cobalamin (Vitamin B12) [Mass/volume] in Serum or Plasma VITAMIN B12 Lab Routine Vitamin B12 deficiency Expected: 12/18/2024, Expires: 03/19/2025 [facility] Comment on above: Expected: 12/18/2024, Expires: Start: 12-10-2024 Annual PCP Team Chronic Disease Visit Annual PCP Team Chronic Disease Visit [facility] Start: 12-10-2024 BP Controlled (<130/80) BP Controlled (<130/80) [facility] in Start: 12-09-2024 Complete blood count Hemoglobin/Hematocrit [facility] Start: 12-09-2024 Creatinine measurement Serum Creatinine [facility] Start: 11-26-2024 Diabetic foot examination Diabetic Foot Exam [facility] Start: 11-20-2024 End: 11-20-2024 Patient encounter procedure 11/20/2024 1:30 PM EDT Office Visit [facility] [address] [place] [address] Migel Gómez MD [address] [place] [address] [facility] Start: 11-11-2024 End: 11-11-2024 Patient encounter procedure 11/11/2024 2:00 PM EDT Office Visit Podiatry [address] [place], [place] [id number] Triny Palmer [address] [place] [address] 3 month follow up nail care Podiatry Comment on above: 3 month follow up nail care Start: 11-06-2024 BP Controlled (<130/80) BP Controlled (<130/80) [facility] Start: 09-27-2024 Complete blood count Hemoglobin/Hematocrit [facility] Start: 09-27-2024 Creatinine measurement Serum Creatinine [facility] Start: 09-27-2024 Potassium [Moles/volume] in Serum or Plasma POTASSIUM [facility] Start: 09-24-2024 End: 09-24-2024 Patient encounter procedure 09/24/2024 1:00 PM EDT Office Visit [facility] [address] [place] [address] George Pacheco MD [address] [place] [id number] VF-OCT Ophthalmology Comment on above: VF-OCT Start: 09-17-2024 End: 09-17-2024 Patient encounter procedure 09/17/2024 3:00 PM EDT Office Visit [facility] [address] [place] [address] Handy Henderson DO [address] [place] [address] 3 month follow up [facility] Comment on above: 3 month follow up Start: 09-10-2024 Glaucoma screening [facility] Start: 08-22-2024 End: 08-22-2024 Patient encounter procedure 08/22/2024 3:00 PM EDT Office Visit [facility] [address] [place] [address] George Pacheco MD [address] [place] [id number] VF-OCT Ophthalmology Comment on above: VF-OCT Start: 08-11-2024 End: 08-11-2024 Patient encounter procedure 08/11/2024 2:00 PM EDT Office Visit Podiatry [address] [place] [address] Triny Palmer [address] [address] 3 mo follow up Podiatry Comment on above: 3 mo follow up Start: 07-25-2024 Complete blood count Hemoglobin/Hematocrit [facility] Start: 07-25-2024 Creatinine measurement Serum Creatinine [facility] Start: 07-16-2024 Annual PCP Team Chronic Disease Visit Annual PCP Team Chronic Disease Visit [facility] Start: 06-18-2024 Complete blood count Hemoglobin/Hematocrit [facility] Start: 06-18-2024 Creatinine measurement Serum Creatinine [facility] Start: 06-17-2024 End: 06-17-2024 Patient encounter procedure 06/17/2024 2:20 PM EDT Office Visit Family [facility] [address] [place] [address] Handy Henderson DO [address] [place] [address] 3 month follow up [facility] Comment on above: 3 month follow up Start: 06-17-2024 End: 09-16-2024 25-hydroxyvitamin D3 [Mass/volume] in Serum or Plasma VITAMIN D 25 HYDROXY Lab Routine Vitamin D deficiency Expected: 06/17/2024, Expires: 09/16/2024 [facility] Comment on above: Expected: 06/17/2024, Expires: Start: 06-17-2024 End: 09-16-2024 Cobalamin (Vitamin B12) [Mass/volume] in Serum or Plasma VITAMIN B12 Lab Routine Fatigue, unspecified type Expected: 06/17/2024, Expires: 09/16/2024 [facility] Comment on above: Expected: 06/17/2024, Expires: Start: 06-17-2024 End: 09-16-2024 Thyrotropin [Units/volume] in Serum or Plasma THYROID STIMULATING HORMONE Lab Routine Hypercholesteremia Fatigue, unspecified type Expected: 06/17/2024, Expires: 09/16/2024 [facility] Work Phone: Comment on above: Expected: 06/17/2024, Expires: Start: 06-17-2024 End: 09-16-2024 Thyroxine (T4) free [Mass/volume] in Serum or Plasma T4 FREE/FREE THYROXINE Lab Routine Hypercholesteremia Fatigue, unspecified type Expected: 06/17/2024, Expires: 09/16/2024 [facility] Comment on above: Expected: 06/17/2024, Expires: Start: 06-08-2024 Hemoglobin A1c measurement HbA1C [facility] Start: 05-22-2024 Complete blood count Hemoglobin/Hematocrit [facility] Start: 05-22-2024 Creatinine measurement Serum Creatinine [facility] Start: 05-14-2024 End: 05-14-2024 Patient encounter procedure 05/14/2024 2:45 PM EST Office Visit [facility] [place] [address] [place] [address] vf-return in 6 months Ophthalmology Comment on above: vf-return in 6 months Start: 05-12-2024 End: 05-12-2024 Patient encounter procedure 05/12/2024 2:30 PM EST Office Visit Podiatry [address] [place] [address] Triny Palmer [address] [address] 3 mo follow up Podiatry Comment on above: 3 mo follow up Start: 04-26-2024 Complete blood count Hemoglobin/Hematocrit [facility] Start: 04-26-2024 Creatinine measurement Serum Creatinine [facility] Start: 04-17-2024 Annual PCP Team Chronic Disease Visit Annual PCP Team Chronic Disease Visit [facility] Start: 04-17-2024 Covid-19 Vaccine () Covid-19 Vaccine () [facility] Comment on above: Postponed from 12/01/2022 (Declined at t his time) Start: 04-15-2024 End: 04-15-2024 Patient encounter procedure 04/15/2024 2:30 PM EST Office Visit Podiatry [address] [place] [address] Triny Palmer [address] [address] 3 mo follow up Podiatry Comment on above: 3 mo follow up Start: 03-21-2024 Hepatitis B surface antibody level LDL Cholesterol [facility] Start: 03-20-2024 End: 03-20-2024 Patient encounter procedure 03/20/2024 1:00 PM EST Office Visit [facility] [address] [place] [address] Catalina Castro APRN.[facility] [address] [place] [address] 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] [facility] Comment on above: Degeneration of intervertebral disc of l umbar region with discogenic back pain [M51.360] Start: 03-12-2024 End: 03-12-2024 Patient encounter procedure 03/12/2024 3:00 PM EST Office Visit Family Re[facility]do [facility]ergara [address] [place] [address] Handy Henderson DO [address] [place] [address] 3 month follow up Family Reinaldo Vergara Comment on above: 3 month follow up Start: 03-03-2024 End: 03-03-2024 Patient encounter procedure 03/03/2024 1:00 PM EST Office Visit Podiatry [address] [place] [address] Triny Palmer [address] [place] [address] 3 mo follow up Podiatry Comment on above: 3 mo follow up Start: 02-18-2024 End: 02-18-2024 ambulatory 02/18/2024 2:15 PM EST OT/PT/Speech Visit [facility] [address] [place] [address] Reyes Perea, PT [address] [place], [place] [address] Low Back Pain, core stregthening [facility] Comment on above: Low Back Pain, core stregthening Start: 02-17-2024 Hemoglobin/Hematocrit Hemoglobin/Hematocrit [facility] Start: 02-17-2024 Serum Creatinine Serum Creatinine [facility] Start: 02-11-2024 End: 02-11-2024 ambulatory 02/11/2024 2:15 PM EST OT/PT/Speech Visit [facility] [address] [place] [address] Reyes Perea, PT [address] [place], [place] [id number] Low Back Pain, core stregthening [facility] Comment on above: Low Back Pain, core stregthening Start: 02-07-2024 End: 02-07-2024 ambulatory 02/07/2024 2:15 PM EST OT/PT/Speech Visit [facility] [address] [place] [address] Reyes Perea, PT [address] [place], [place] [id number] Low Back Pain, core stregthening [facility] Comment on above: Low Back Pain, core stregthening Start: 02-04-2024 End: 02-04-2024 ambulatory 02/04/2024 2:15 PM EST OT/PT/Speech Visit [facility] [address] [facility] [place] [address] Reyes Perea, PT [address] [place], [place] [phone] Low Back Pain, core stregthening [facility] Comment on above: Low Back Pain, core stregthening Start: 01-28-2024 End: 01-28-2024 ambulatory 01/28/2024 4:30 PM EDT OT/PT/Speech Visit [facility] [address] [place] [address] Reyes Perea, PT [address] [place], [place] [phone] Low Back Pain, core stregthening [facility] Comment on above: Low Back Pain, core stregthening Start: 01-21-2024 End: 01-21-2024 Patient encounter procedure [facility] [place] Comment on above: 3 month f/u 3 month f/u/back harlan n prefers afternoon PCPonly was advised may need OMT Start: 01-19-2024 Hemoglobin/Hematocrit Hemoglobin/Hematocrit [facility] Start: 01-19-2024 Serum Creatinine Serum Creatinine [facility] Start: 01-15-2024 End: 01-15-2024 ambulatory 01/15/2024 1:30 PM EDT OT/PT/Speech Visit [facility] [address] [place] [address] Reyes Perea, PT [address] [place], [place] [phone] Low Back Pain, core stregthening [facility] Comment on above: Low Back Pain, core stregthening Start: 12-21-2023 Hemoglobin/Hematocrit Hemoglobin/Hematocrit [facility] Start: 12-21-2023 Serum Creatinine Serum Creatinine [facility] Start: 12-02-2023 Covid-19 Vaccine () Covid-19 Vaccine () [facility] Start: 12-02-2023 Covid-19 Vaccine ( season) Covid-19 Vaccine () [facility] Start: 12-02-2023 Influenza vaccination INFLUENZA VACCINE (#1) [facility] Start: 11-27-2023 End: 11-27-2023 Patient encounter procedure 11/27/2023 2:00 PM EDT Office Visit Podiatry [address] [place], [place] [id number] Triny Palmer [address] [address] 3 mo follow up Podiatry Comment on above: 3 mo follow up Start: 11-21-2023 BP CONTROLLED (<130/80) BP CONTROLLED (<130/80) [facility] Start: 11-21-2023 HEMOGLOBIN/HEMATOCRIT HEMOGLOBIN/HEMATOCRIT [facility] Start: 11-21-2023 Hepatitis B surface antibody level LDL CHOLESTEROL [facility] Start: 11-21-2023 SERUM CREATININE SERUM CREATININE [facility] Start: 11-12-2023 End: 11-12-2023 Patient encounter procedure 11/12/2023 1:15 PM EDT Office Visit [facility] [place] [id number] George Pacheco MD [address] [place] [address] OCT-nerve Ophthalmology Comment on above: OCT-nerve Start: 11-09-2023 ANNUAL PCP TEAM CHRONIC DISEASE VISIT ANNUAL PCP TEAM CHRONIC DISEASE VISIT [facility] Start: 11-09-2023 COVID-19 VACCINE (4 - Booster for Moderna series) COVID-19 VACCINE (4 - Booster for Moderna series) [facility] Comment on above: Postponed from 04/04/2021 (Declined at t his time) Start: 11-09-2023 COVID-19 VACCINE (4 - Moderna risk series) COVID-19 VACCINE (4 - Moderna risk series) [facility] Comment on above: Postponed from 04/04/2021 (Declined at t his time) Start: 11-09-2023 SHINGRIX VACCINE (1 of 2) SHINGRIX VACCINE (1 of 2) [facility] Comment on above: Postponed from 1981 (Declined at t his time) Start: 11-09-2023 Urine microalbumin profile [facility] Comment on above: Postponed from 1981 (Declined at t his time) Start: 10-18-2023 ANNUAL PCP TEAM CHRONIC DISEASE VISIT ANNUAL PCP TEAM CHRONIC DISEASE VISIT [facility] Start: 10-18-2023 HEMOGLOBIN/HEMATOCRIT HEMOGLOBIN/HEMATOCRIT [facility] Start: 10-18-2023 SERUM CREATININE SERUM CREATININE [facility] Start: 10-17-2023 End: 10-17-2023 Patient encounter procedure 10/17/2023 1:00 PM EDT Office Visit Family Medicine [facility] [address] [place], [place] [id number] Tara Carballo APRN.ENGINE SETTER [address] [place], [place] [id number] 3 month f/u [facility] Comment on above: 3 month f/u Start: 10-10-2023 Glaucoma screening Dilated Retinal Exam [facility] Start: 10-10-2023 Hepatitis C antibody, confirmatory test DILATED RETINAL EXAM [facility] Start: 10-09-2023 Colonoscopy COLONOSCOPY [facility] Start: 10-09-2023 COLORECTAL CANCER SCREENING COLORECTAL CANCER SCREENING [facility] Start: 10-09-2023 Screening for malignant neoplasm of colon [facility] Start: 09-27-2023 3 comp foot exam completed DIABETIC FOOT EXAM [facility] Start: 09-27-2023 Diabetic foot examination Diabetic Foot Exam [facility] Start: 09-22-2023 HEMOGLOBIN/HEMATOCRIT HEMOGLOBIN/HEMATOCRIT [facility] Start: 09-22-2023 SERUM CREATININE SERUM CREATININE [facility] Start: 09-20-2023 Hemoglobin A1c measurement [facility] Start: 09-11-2023 End: 09-11-2023 Patient encounter procedure 09/11/2023 2:45 PM EDT Office Visit [facility] Ophthalmology [address] [place] [address] George Pacheco MD [address] [place] [address] VF/OCT Ophthalmology Comment on above: VF/OCT Start: 08-06-2023 End: 08-06-2023 Patient encounter procedure 08/06/2023 2:45 PM EDT Office Visit [facility] Ophthalmology [address] [id number] George Pacheco MD [address] [place] [place] [id number] VF/OCT Ophthalmology Comment on above: VF/OCT Start: 07-30-2023 End: 07-30-2023 Patient encounter procedure 07/30/2023 1:45 PM EDT Office Visit Podiatry [address] [place], [place] [id number] Triny Palmer [address] [address] Foot Care (Follow Up) Podiatry Comment on above: Foot Care (Follow Up) Start: 07-25-2023 ANNUAL PCP TEAM CHRONIC DISEASE VISIT ANNUAL PCP TEAM CHRONIC DISEASE VISIT [facility] Start: 07-18-2023 HEMOGLOBIN/HEMATOCRIT HEMOGLOBIN/HEMATOCRIT [facility] Start: 07-18-2023 Hepatitis B screening URINE ALBUMIN:CREATININE RATIO [facility] Start: 07-18-2023 SERUM CREATININE SERUM CREATININE [facility] Start: 06-21-2023 Patient discharge [facility] Start: 06-18-2023 SERUM CREATININE SERUM CREATININE [facility] Start: 05-18-2023 HEMOGLOBIN/HEMATOCRIT HEMOGLOBIN/HEMATOCRIT [facility] Start: 05-18-2023 SERUM CREATININE SERUM CREATININE [facility] Start: 05-10-2023 ANNUAL PCP TEAM CHRONIC DISEASE VISIT ANNUAL PCP TEAM CHRONIC DISEASE VISIT [facility] Start: 05-10-2023 BP CONTROLLED (<130/80) BP CONTROLLED (<130/80) [facility] Start: 04-25-2023 [facility] Start: 04-22-2023 HEMOGLOBIN/HEMATOCRIT HEMOGLOBIN/HEMATOCRIT [facility] Start: 04-22-2023 Hepatitis B screening URINE ALBUMIN:CREATININE RATIO [facility] Start: 04-22-2023 SERUM CREATININE SERUM CREATININE [facility] Start: 04-02-2023 Behavioral Health Screening Behavioral Health Screening [facility] Start: 03-16-2023 Lipid panel LIPIDS [facility] Start: 03-02-2023 Hepatitis B surface antibody level LDL CHOLESTEROL [facility] Start: 02-06-2023 ANNUAL PCP TEAM CHRONIC DISEASE VISIT ANNUAL PCP TEAM CHRONIC DISEASE VISIT [facility] Start: 02-06-2023 BP CONTROLLED (<130/80) BP CONTROLLED (<130/80) [facility] Start: 02-01-2023 Hepatitis B surface antibody level LDL CHOLESTEROL [facility] Start: 01-17-2023 HEMOGLOBIN/HEMATOCRIT HEMOGLOBIN/HEMATOCRIT [facility] Start: 01-17-2023 Hepatitis B surface antibody level LDL CHOLESTEROL [facility] Start: 01-17-2023 SERUM CREATININE SERUM CREATININE [facility] Start: 01-04-2023 Influenza vaccination LUNG CANCER SCREENING [facility] Start: 01-03-2023 Hepatitis B surface antibody level LDL CHOLESTEROL [facility] Start: 12-26-2022 ANNUAL PCP TEAM CHRONIC DISEASE VISIT ANNUAL PCP TEAM CHRONIC DISEASE VISIT [facility] Start: 12-20-2022 HEMOGLOBIN/HEMATOCRIT HEMOGLOBIN/HEMATOCRIT [facility] Start: 12-20-2022 SERUM CREATININE SERUM CREATININE [facility] Start: 12-06-2022 HEMOGLOBIN/HEMATOCRIT HEMOGLOBIN/HEMATOCRIT [facility] Start: 12-06-2022 Hepatitis B surface antibody level LDL CHOLESTEROL [facility] Start: 12-06-2022 SERUM CREATININE SERUM CREATININE [facility] Start: 12-01-2022 Covid-19 Vaccine ( season) Covid-19 Vaccine ( season) [facility] Start: 12-01-2022 Influenza vaccination [facility] Start: 11-07-2022 Glaucoma screening EYE EXAM [facility] Start: 11-07-2022 HEMOGLOBIN/HEMATOCRIT HEMOGLOBIN/HEMATOCRIT [facility] Start: 11-07-2022 Hepatitis B surface antibody level LDL CHOLESTEROL [facility] Start: 11-07-2022 Hepatitis C antibody, confirmatory test DILATED RETINAL EXAM [facility] Start: 11-07-2022 SERUM CREATININE SERUM CREATININE [facility] Start: 10-26-2022 3 comp foot exam completed DIABETIC FOOT EXAM [facility] Start: 10-24-2022 HEMOGLOBIN/HEMATOCRIT HEMOGLOBIN/HEMATOCRIT [facility] Start: 10-24-2022 Hepatitis B surface antibody level LDL CHOLESTEROL [facility] Start: 10-24-2022 SERUM CREATININE SERUM CREATININE [facility] Start: 10-20-2022 Hemoglobin A1c measurement HBA1C TEST [facility] Start: 10-20-2022 Hemoglobin A1c/Hemoglobin.total in Blood HBA1C [facility] Start: 10-18-2022 End: 12-18-2022 Lipid 1996 panel - Serum or Plasma LIPID PANEL BASIC Lab Routine Hypercholesteremia Expected: 10/18/2022, Expires: 12/18/2022 [facility] Work Phone: Comment on above: Expected: 10/18/2022, Expires: Start: 10-10-2022 HEMOGLOBIN/HEMATOCRIT HEMOGLOBIN/HEMATOCRIT [facility] Start: 10-10-2022 Hepatitis B surface antibody level LDL CHOLESTEROL [facility] Start: 10-10-2022 SERUM CREATININE SERUM CREATININE [facility] Start: 10-04-2022 HEMOGLOBIN/HEMATOCRIT HEMOGLOBIN/HEMATOCRIT [facility] Start: 10-04-2022 Hepatitis B surface antibody level LDL CHOLESTEROL [facility] Start: 10-04-2022 SERUM CREATININE SERUM CREATININE [facility] Start: 09-27-2022 HEMOGLOBIN/HEMATOCRIT HEMOGLOBIN/HEMATOCRIT [facility] Start: 09-27-2022 Hepatitis B surface antibody level LDL CHOLESTEROL [facility] Start: 09-27-2022 SERUM CREATININE SERUM CREATININE [facility] Start: 09-12-2022 HEMOGLOBIN/HEMATOCRIT HEMOGLOBIN/HEMATOCRIT [facility] Start: 09-12-2022 SERUM CREATININE SERUM CREATININE [facility] Start: 08-31-2022 Hemoglobin A1c/Hemoglobin.total in Blood HBA1C [facility] Start: 08-30-2022 Hepatitis B surface antibody level LDL CHOLESTEROL [facility] Start: 2022 RSV Vaccine (1 - 1-dose 60+ series) RSV Vaccine (1 - 1-dose 60+ series) [facility] Start: 2022 RSV Vaccine (1 - Risk 60-74 years 1-dose series) RSV Vaccine (1 - Risk 60-74 years 1-dose series) [facility] Start: 08-17-2022 ANNUAL PCP TEAM CHRONIC DISEASE VISIT ANNUAL PCP TEAM CHRONIC DISEASE VISIT [facility] Start: 08-17-2022 BP CONTROLLED (<130/80) BP CONTROLLED (<130/80) [facility] Start: 08-17-2022 Hepatitis B surface antibody level LDL CHOLESTEROL [facility] Start: 08-17-2022 SERUM CREATININE SERUM CREATININE [facility] Start: 08-15-2022 HEMOGLOBIN/HEMATOCRIT HEMOGLOBIN/HEMATOCRIT [facility] Start: 08-15-2022 SERUM CREATININE SERUM CREATININE [facility] Start: 08-01-2022 Hemoglobin A1c/Hemoglobin.total in Blood HBA1C [facility] Start: 08-01-2022 HEMOGLOBIN/HEMATOCRIT HEMOGLOBIN/HEMATOCRIT [facility] Start: 08-01-2022 SERUM CREATININE SERUM CREATININE [facility] Start: 07-25-2022 HEMOGLOBIN/HEMATOCRIT HEMOGLOBIN/HEMATOCRIT [facility] Start: 07-25-2022 SERUM CREATININE SERUM CREATININE [facility] Start: 07-18-2022 Hemoglobin A1c/Hemoglobin.total in Blood HBA1C [facility] Start: 07-11-2022 ANNUAL PCP TEAM CHRONIC DISEASE VISIT ANNUAL PCP TEAM CHRONIC DISEASE VISIT [facility] Start: 07-11-2022 Urine microalbumin profile DTAP,TDAP,TD (1 - Tdap) [facility] Comment on above: Postponed from 1981 (Declined at t his time) Start: 07-10-2022 End: 02-08-2023 Us abdominal real time w/image limited US ABDOMEN LTD Radiology Routine Splenomegaly Expected: 07/10/2022, Expires: 02/08/2023 [facility] Work Phone: Comment on above: Expected: 07/10/2022, Expires: Start: 07-04-2022 Hemoglobin A1c/Hemoglobin.total in Blood HBA1C [facility] Start: 06-05-2022 Hemoglobin A1c/Hemoglobin.total in Blood HBA1C [facility] Start: 05-10-2022 Hemoglobin A1c/Hemoglobin.total in Blood HBA1C [facility] Start: 04-26-2022 Hemoglobin A1c/Hemoglobin.total in Blood HBA1C [facility] Start: 04-19-2022 ANNUAL PCP TEAM CHRONIC DISEASE VISIT ANNUAL PCP TEAM CHRONIC DISEASE VISIT [facility] Start: 04-12-2022 Hemoglobin A1c measurement HBA1C TEST [facility] Start: 04-12-2022 Hemoglobin A1c/Hemoglobin.total in Blood HBA1C [facility] Start: 04-06-2022 Hemoglobin A1c/Hemoglobin.total in Blood HBA1C [facility] Start: 04-02-2022 DEPRESSION ASSESSMENT DEPRESSION ASSESSMENT [facility] Start: 03-29-2022 Hemoglobin A1c/Hemoglobin.total in Blood HBA1C [facility] Start: 03-28-2022 LIPIDS LIPIDS [facility] Start: 03-01-2022 Hemoglobin A1c/Hemoglobin.total in Blood HBA1C [facility] Start: 01-30-2022 Enteric precautions [facility] Start: 01-26-2022 HEMOGLOBIN/HEMATOCRIT HEMOGLOBIN/HEMATOCRIT [facility] Start: 01-26-2022 SERUM CREATININE SERUM CREATININE [facility] Start: 01-10-2022 Diabetic retinal eye exam EYE EXAM [facility] Start: 01-10-2022 Hepatitis C antibody, confirmatory test DILATED RETINAL EXAM [facility] Start: 01-03-2022 Hemoglobin A1c measurement HBA1C TEST [facility] Start: 12-14-2021 Hemoglobin A1c measurement HBA1C TEST [facility] Start: 12-14-2021 Hemoglobin A1c/Hemoglobin.total in Blood HBA1C [facility] Start: 12-01-2021 Influenza vaccination [facility] Start: 11-23-2021 Adult depression screening assessment DEPRESSION SCREENING [facility] Start: 11-16-2021 End: 11-16-2021 Patient encounter procedure 11/16/2021 Office Visit Transplant Surgery Mirna Stuart, ROPEWALK ROPE MAKER-ENGINE SETTER [address] [place] [id number] [facility] Start: 10-25-2021 End: 10-25-2021 Patient encounter procedure [facility]inology [facility] Start: 10-13-2021 End: 10-13-2021 Patient encounter procedure 10/13/2021 Office Visit Transplant Surgery Migel Gómez MD [address] [place] [address] [facility] Start: 10-09-2021 3 comp foot exam completed DIABETIC FOOT EXAM [facility] Start: 09-25-2021 Hemoglobin A1c/Hemoglobin.total in Blood HBA1C [facility] Start: 08-17-2021 End: 10-17-2021 LIPID PANEL, NONFASTING [facility] Work Phone: Comment on above: Expected: 08/17/2021, Expires: 2 Start: 08-08-2021 End: 10-08-2021 Comprehensive metabolic 2000 panel - Serum or Plasma COMP METABOLIC PANEL Lab Routine Diarrhea, unspecified type Expected: 08/08/2021, Expires: 10/08/2021 [facility] Work Phone: Comment on above: Expected: 08/08/2021, Expires: 2 Start: 07-05-2021 End: 07-05-2022 Hepatitis C virus RNA [Units/volume] (viral load) in Serum or Plasma by Probe and target amplification method detection limit = 5 iU/mL HEPATITIS C BY PCR, QUANT Lab Routine Kidney replaced by transplant Long-term use of immunosuppressant medication Abnormal blood chemistry High risk medication use Immunosuppressed status Aftercare following organ transplant Other general symptoms and signs Expected: 07/05/2021, Expires: 07/05/2022 [facility] Comment on above: Expected: 07/05/2021, Expires: 3 Start: 06-30-2021 Prostate specific antigen measurement PROSTATE CANCER SCREENING DISCUSSION [facility] Start: 06-24-2021 End: 06-24-2021 Patient encounter procedure 06/24/2021 Office Visit Transplant Surgery Leon Skinner, BOBBI [address] [place] [address] [facility] Start: 06-22-2021 Influenza vaccination LUNG CANCER SCREENING [facility] Start: 06-11-2021 Patient discharge [facility] Work Phone: Start: 06-10-2021 [facility] Work Phone: Start: 06-10-2021 Referral to shoer [facility] Work Phone: Start: 06-10-2021 Following clinical pathway protocol [facility] Work Phone: Start: 06-10-2021 Application of intermittent pneumatic compression device [facility] Work Phone: Start: 06-10-2021 Aspiration precautions [facility] Work Phone: Start: 06-10-2021 Assessment of risk of venous thromboembolism [facility] Work Phone: Start: 06-10-2021 Care regimes management [facility] Work Phone: Start: 06-10-2021 Continuous positive airway pressure ventilation treatment [facility] Work Phone: Start: 06-10-2021 Fall prevention [facility] Work Phone: Start: 06-10-2021 Incentive spirometry [facility] Work Phone: Start: 06-10-2021 Inhalation therapy procedure [facility] Work Phone: Start: 06-10-2021 Insertion of catheter into peripheral vein [facility] Work Phone: Start: 06-10-2021 Introduction of urinary catheter [facility] Work Phone: Start: 06-10-2021 Measuring intake and output [facility] Work Phone: Start: 06-10-2021 Oxygen therapy [facility] Work Phone: Start: 06-10-2021 Providing care according to standard [facility] Work Phone: Start: 06-10-2021 Provision of activity privileges [facility] Work Phone: Start: 06-10-2021 Referral to occupational therapist [facility] Work Phone: Start: 06-10-2021 Referral to service [facility] Work Phone: Start: 06-10-2021 [facility] Work Phone: Start: 06-10-2021 Admission procedure [facility] Work Phone: Start: 06-10-2021 Patient referral to dietitian [facility] Work Phone: Start: 06-10-2021 [facility] Work Phone: Start: 06-09-2021 Referral to service [facility] Work Phone: Start: 05-10-2021 COVID-19 VACCINE (4 - Booster for Moderna series) COVID-19 VACCINE (4 - Booster for Moderna series) [facility] Start: 05-02-2021 COVID-19 VACCINE (4 - Booster for Moderna series) COVID-19 VACCINE (4 - Booster for Moderna series) [facility] Start: 04-20-2021 PNEUMOCOCCAL (3 - PPSV23 or PCV20) PNEUMOCOCCAL (3 - PPSV23 or PCV20) [facility] Start: 04-04-2021 COVID-19 VACCINE (4 - Booster for Moderna series) COVID-19 VACCINE (4 - Booster for Moderna series) [facility] Start: 04-02-2021 DEPRESSION ASSESSMENT DEPRESSION ASSESSMENT [facility] Start: 03-02-2021 Medicare Annual Wellness Visit Medicare Annual Wellness Visit [facility] Start: 12-01-2020 Influenza vaccination [facility] Start: 02-07-2020 Hepatitis B screening URINE ALBUMIN:CREATININE RATIO [facility] Start: 02-07-2020 Hepatitis B surface antibody level LDL CHOLESTEROL [facility] Start: 11-28-2019 BP CONTROLLED (<130/80) BP CONTROLLED (<130/80) [facility] Start: 10-09-2019 Screening for malignant neoplasm of colon COLORECTAL CANCER SCREENING DISCUSSION [facility] Start: 11-12-2014 TWO PNEUMOVAX 5 YEARS APART PRIOR TO AGE 65 (#2) TWO PNEUMOVAX 5 YEARS APART PRIOR TO AGE 65 (#2) [facility] Start: 11-12-2012 Microalbumin measurement, urine, quantitative URINE MICROALBUMIN TEST [facility] Start: 11-12-2012 Urine screening for protein URINE MICROALBUMIN TEST [facility] Start: 2012 SHINGRIX VACCINE (1 of 2) SHINGRIX VACCINE (1 of 2) [facility] Start: 2012 Zoster vaccine hzv live for subcutaneous use ZOSTER (SHINGLES) VACCINE (1 of 2) [facility] Start: 11-12-2010 PNEUMOCOCCAL VACCINE SERIES (2 - PCV) PNEUMOCOCCAL VACCINE SERIES (2 - PCV) [facility] Start: 11-12-2010 PNEUMOCOCCAL VACCINE SERIES (2 of 4 - PCV13) PNEUMOCOCCAL VACCINE SERIES (2 of 4 - PCV13) [facility] Start: 08-30-2007 COLOGUARD (FIT-DNA) COLOGUARD (FIT-DNA) [facility] Start: 08-30-2007 Colonoscopy COLORECTAL CANCER SCREENING DISCUSSION [facility] Start: 08-30-[address] COLONOGRAPHY [facility] Start: 08-30-2007 FECAL OCCULT BLOOD FECAL OCCULT BLOOD [facility] Start: 08-30-2007 Screening for malignant neoplasm of colon [facility] Start: 08-30-2007 SIGMOIDOSCOPY SIGMOIDOSCOPY [facility] Start: 1981 HEPATITIS A (1 of 2 - Risk 2-dose series) HEPATITIS A (1 of 2 - Risk 2-dose series) [facility] Start: 1981 Hepatitis A Vaccine (1 of 2 - Risk 2-dose series) Hepatitis A Vaccine (1 of 2 - Risk 2-dose series) [facility] Start: 1981 SHINGRIX VACCINE (1 of 2) SHINGRIX VACCINE (1 of 2) [facility] Start: 1981 Third diphtheria, tetanus and acellular pertussis (DTaP) vaccination TDAP (ADULT) [facility] Start: 1981 Urine microalbumin profile [facility] Start: 1981 Zoster vaccine hzv live for subcutaneous use ZOSTER (SHINGLES) VACCINE (1 of 2) [facility] Start: 1980 Anxiety Screening Anxiety Screening [facility] Start: 1980 Depression Screening Depression Screening [facility] Start: 1980 Tetanus vaccination TETANUS [facility] Start: 1974 COVID-19 VACCINE (1) COVID-19 VACCINE (1) [facility] Start: 08-30-1967 COVID-19 VACCINE (#1) COVID-19 VACCINE (#1) [facility] Start: 08-30-1963 HEPATITIS A (1 of 2 - Risk 2-dose series) HEPATITIS A (1 of 2 - Risk 2-dose series) [facility] Start: 03-01-1963 COVID-19 VACCINE (#1) COVID-19 VACCINE (#1) [facility] Start: 1962 Diabetic foot examination [facility]OT [facility] Start: 1962 Tetanus vaccination TETANUS [facility] ALLOSCREEN RECIPIENT (POST TX PRA) ALLOSCREEN RECIPIENT (POST TX PRA) Lab Routine Kidney replaced by transplant Aftercare following organ transplant Immunosuppressed status Abnormal blood chemistry 11/06/2023 2:08 PM EDT [facility] Bacteria identified in Wound by Culture ABSCESS AND WOUND CULTURE WITH GRAM STAIN Microbiology Routine Skin ulcer of toe of right foot with fat layer exposed (HCC) 11/28/2022 3:20 PM EDT [facility] Work Phone: Bilirubin measuremen t, urine [facility] BK VIRUS DNA QN, PCR , PLASMA BK VIRUS DNA QN, PCR, PLASMA Lab Routine Kidney replaced by transplant Aftercare following organ transplant Immunosuppressed status Abnormal blood chemistry 11/06/2023 2:08 PM EDT [facility] End: 06-18-2025 Echocardiography ECHO Cardiology Routine LVH (left ventricular hypertrophy) Aortic dilatation (HCC) 1 Occurrences starting 06/18/2024 until 06/18/2025 [facility] Comment on above: 1 Occurrences starting 06/18/2024 until 06/18/2025 EXTRA MICRO EXTRA MICRO Flui ds Routine Kidney replaced by transplant Aftercare following organ transplant Immunosuppressed status Abnormal blood chemistry 11/06/2023 2:28 PM EDT [facility] FAT, FECAL QUAL FAT, FECAL QUAL Lab Routine Diarrhea, unspecified type Ordered: 08/17/2021 [facility] Work Phone: Comment on above: Ordered: 08/17/2021 Gastrointestinal pathogens panel - Stool by Culture STOOL CULTURE/EIA Microbiology Routine Diarrhea, unspecified type Ordered: 08/17/2021 [facility] Work Phone: Comment on above: Ordered: 08/17/2021 Helicobacter pylori Ag [Presence] in Stool by Immunoassay H PYLORI AG BY EIA,STOOL Microbiology Routine Diarrhea, unspecified type Ordered: 08/17/2021 [facility] Work Phone: Comment on above: Ordered: 08/17/2021 Hemoglobin [Presence ] [facility] Urine [facility] [facility] Hepatitis C virus RN A [Units/volume] (viral load) in Serum or Plasma by Probe and target amplification method detection limit = 5 iU/mL HEPATITIS C BY PCR, QUANT Lab Routine Kidney replaced by transplant Long-term use of immunosuppressant medication Abnormal blood chemistry High risk medication use Immunosuppressed status Aftercare following organ transplant Other general symptoms and signs 07/06/2021 4:18 PM EDT [facility] Measurement of keton es in urine using dipstick [facility] Microscopic urinalysis [facility] Patient Education [facility] Work Phone: Patient referral [facility] Work Phone: pH of Urine [facility] End: 11-29-2023 PVR ANK PRESS [facility] PVR ANK PRESS [facility] Vascular Lab Routine Skin ulcer of toe of right foot with fat layer exposed (HCC) Diminished pulses in lower extremity 1 Occurrences starting 11/28/2022 until 11/29/2023 [facility] Work Phone: Comment on above: 1 Occurrences starting 11/28/2022 until 11/29/2023 End: 09-17-2025 Screening colonoscopy COLONOSCOPY SCREENING Endoscopy Routine Screening for colon cancer 1 Occurrences starting 09/17/2024 until 09/17/2025 [facility] Work Phone: Comment on above: 1 Occurrences starting 09/17/2024 until 09/17/2025 Specific gravity of Urine [facility] URINALYSIS REFLEX TO CULTURE URINALYSIS REFLEX TO CULTURE Fluids Routine Kidney replaced by transplant Aftercare following organ transplant Immunosuppressed status Abnormal blood chemistry 11/06/2023 2:28 PM EDT [facility] Urinalysis, blood, qualitative [facility] Urine dipstick for glucose [facility] Urine dipstick for leukocyte esterase [facility] Urine dipstick for nitrite [facility] Urine dipstick for protein [facility] Urine examination [facility] Urine microscopy: epithelial cells [facility] Urine Microscopy: wh ite cells [facility] Urobilinogen [Presen ce] in Urine [facility] End: 01-17-2024 US VENOUS INCOMPETENCY [facility] US VENOUS INCOMPETENCY [facility] Vascular Lab Routine Swelling of lower leg 1 Occurrences starting 01/16/2023 until 01/17/2024 [facility] Work Phone: Comment on above: 1 Occurrences starting 01/16/2023 until 01/17/2024 XR Chest PA and Lateral [facility] End: 12-28-2023 XR FOOT GENERAL 3V AP/LAT/OBL RIGHT XR FOOT GENERAL 3V AP/LAT/OBL RIGHT Radiology Routine Skin ulcer of toe of right foot with fat layer exposed (HCC) 1 Occurrences starting 11/28/2022 until 12/28/2023 [facility] Work Phone: Comment on above: 1 Occurrences starting 11/28/2022 until 12/28/2023 XR FOOT GENERAL 3V AP/LAT/OBL RIGHT XR FOOT GENERAL 3V AP/LAT/OBL RIGHT Radiology Routine Skin ulcer of toe of right foot with fat layer exposed (HCC) 11/28/2022 3:53 PM EDT [facility] Work Phone: End: 01-09-2025 XR Lumbar spine 3 Views XR LUMBAR GENERAL 3V AP/LAT/L5-S1 Radiology Routine Chronic midline low back pain without sciatica Lumbar paraspinal muscle spasm 1 Occurrences starting 12/11/2023 until 01/09/2025 [facility] Work Phone: Comment on above: 1 Occurrences starting 12/11/2023 until 01/09/2025 XR Lumbar spine 3 Views XR LUMBA R GENERAL 3V AP/LAT/L5-S1 Radiology Routine Chronic midline low back pain without sciatica Lumbar paraspinal muscle spasm 12/11/2023 4:44 PM EDT [facility] End: 01-24-2024 XR TOE AP/LAT/OBL RIGHT XR TOE AP/LAT/OBL RIGHT Radiology Routine Skin ulcer of toe of right foot with fat layer exposed (HCC) Diabetic mononeuropathy associated with diabetes mellitus due to underlying condition (HCC) 1 Occurrences starting 12/25/2022 until 01/24/2024 [facility] Work Phone: Comment on above: 1 Occurrences starting 12/25/2022 until 01/24/2024 XR TOE AP/LAT/OBL RIGHT XR TOE A P/LAT/OBL RIGHT Radiology Routine Skin ulcer of toe of right foot with fat layer exposed (HCC) Diabetic mononeuropathy associated with diabetes mellitus due to underlying condition (HCC) 12/25/2022 2:49 PM EDT [facility] Work Phone: End: 03-30-2024 XR TOE AP/LAT/OBL RIGHT XR TOE AP/LAT/OBL RIGHT Radiology Routine Hammertoe of right foot 1 Occurrences starting 03/01/2023 until 03/30/2024 [facility] Work Phone: Comment on above: 1 Occurrences starting 03/01/2023 until 03/30/2024 XR TOE AP/LAT/OBL RIGHT XR TOE A P/LAT/OBL RIGHT Radiology Routine Hammertoe of right foot 03/01/2023 3:32 PM EST [facility] Work Phone: [facility] Immunizations Immunization Date Immunization Notes Care Provider [place] [facility] 12-11-2023 influenza, seasonal, injectable Handy Henderson DO Work Phone: [facility] 04-17-2023 influenza, injectabl e, quadrivalent, contains preservative Triny Palmer Work Phone: [facility] Work Phone: 04-17-2023 influenza virus vacc ine, unspecified formulation Mirna Stuart [employer] Work Phone: [facility] 12-26-2021 influenza, injectabl e, quadrivalent, contains preservative George Pacheco MD Work Phone: [facility] 12-26-2021 pneumococcal (PCV20) vaccine, 20 valent (PREVNAR 20) George Pacheco MD Work Phone: [facility] 12-26-2021 influenza virus vacc ine, unspecified formulation Migel Gómez MD Work Phone: [facility] 01-17-2021 Hepatitis B vaccine (recombinant), CpG adjuvanted Handy Henderson DO Work Phone: [facility] 12-20-2020 Hepatitis B vaccine (recombinant), CpG adjuvanted Handy Henderson DO Work Phone: [facility] 08-02-2020 hepatitis B vaccine, adult dosage Handy Henderson DO Work Phone: [facility] Work Phone: 07-14-2020 COVID-19 vaccine, fu ll dose (MODERNA) Handy Henderson DO Work Phone: [facility] Work Phone: 06-16-2020 COVID-19 vaccine, fu ll dose (MODERNA) Handy Henderson DO Work Phone: [facility] 04-20-2020 pneumococcal conjuga te vaccine, 13 valent Handy Henderson DO Work Phone: [facility] 03-16-2020 hepatitis B vaccine, adult dosage Handy Henderson DO Work Phone: [facility] 02-10-2020 hepatitis B vaccine, adult dosage Handy Henderson DO Work Phone: [facility] 01-14-2020 influenza, seasonal, injectable Handy Henderson DO Work Phone: [facility] Work Phone: 01-14-2020 influenza virus vacc ine, unspecified formulation Dashawn Zimmer DO Work Phone: [facility] 01-13-2020 hepatitis B vaccine, adult dosage Handy Henderson DO Work Phone: [facility] 12-30-2019 influenza, injectabl e, quadrivalent, contains preservative Handy Henderson DO Work Phone: [facility] 12-30-2019 influenza, injectabl e, quadrivalent, preservative free Handy Henderson DO Work Phone: [facility] 11-24-2018 Influenza, injectabl e, Madin Janette Canine Kidney, preservative free, quadrivalent Handy Henderson DO Work Phone: [facility] 01-30-2018 influenza, injectabl e, quadrivalent, contains preservative Handy Henderson DO Work Phone: [facility] 05-11-2017 influenza, injectabl e, quadrivalent, contains preservative Handy Henderson DO Work Phone: [facility] Work Phone: 01-12-2016 influenza, seasonal, injectable Handy Henderson DO Work Phone: [facility] Work Phone: 01-08-2016 influenza, injectabl e, quadrivalent, preservative free Dr. Handy Henderson Work Phone: [facility] 01-08-2016 influenza, seasonal, injectable Dr. Handy Henderson Work Phone: [facility] 01-08-2016 influenza, seasonal, injectable, preservative free Handy Henderson DO Work Phone: [facility] 01-12-2011 influenza nasal, unspecified formulation Handy Henderson DO Work Phone: [facility] 01-12-2011 influenza virus vacc ine, unspecified formulation Dashawn Zimmer DO Work Phone: [facility] 12-01-2009 influenza nasal, unspecified formulation Handy Henderson DO Work Phone: [facility] 12-01-2009 influenza virus vacc ine, unspecified formulation Dashawn Zimmer DO Work Phone: [facility] 11-12-2009 pneumococcal polysaccharide vaccine, 23 valent Dashawn Zimmer DO Work Phone: [facility] Payers Date Payer Category Payer Medicare (Managed Care) 1.2. [id number] 2024 Unknown [id number] 2023 Self-pay [id number] 2023 Private Health Insurance [id number] 2021 Medicaid [id number] 2021 Medicaid [id number] 2021 Medicare [id number] 2021 Medicare [id number] 2017 Private Health Insurance [id number] 2017 Unknown 2012 Private Health Insurance [id number] 2011 Private Health Insurance [id number] 1960 Unknown [id number] 1962 Unknown [id number] Medicare SELF PAY INSURANCE [id number] Unknown [id number] Unknown [id number] Unknown [id number] Unknown [id number] Unknown [id number] Unknown [id number] Unknown [id number] Unknown [id number] Unknown [id number] Unknown [id number] Unknown [id number] Unknown [id number] Unknown [id number] Unknown [id number] Unknown [id number] Social History Date Type Detail Facility [facility] Start: 07-28-2021 End: 06-21-2023 Tobacco smoking consumption unknown [facility] Start: 06-25-2020 End: 08-23-2023 Tobacco smoking status NHIS Occasional tobacco smoker [facility] Start: 05-03-1989 End: 05-03-2019 History of tobacco use Cigarette Smoker [facility] Start: 06-25-2020 End: 08-14-2022 Cigarettes smoked current (pack per day) - Reported 0.25 [facility] Work Phone: Start: 06-25-2020 End: 12-11-2023 Tobacco use and exposure Smokeless tobacco non-user [facility] Start: 06-21-2021 End: 10-05-2022 Alcohol intake Current drinker of alcohol (finding) [facility] Start: 11-13-2011 History SDOH Alcohol Comment rare [facility] Start: 1960 Sex Assigned At Not on file [facility] Start: 06-01-2021 End: 06-12-2021 Exposure to SARS-CoV-2 (event) Unable to assess [facility] Start: 06-05-2019 End: 12-11-2023 Tobacco smoking status NHIS Ex-smoker [facility] Start: 05-03-1989 End: 05-03-2019 History of tobacco use Current smoker [facility] Start: 05-16-2021 End: 09-24-2024 Alcohol intake Ex-drinker (finding) [facility] Start: 01-08-2018 History SDOH Physica l Activity DPW 3 [facility] Start: 03-20-2021 End: 02-06-2022 Exposure to SARS-CoV-2 (event) Not sure [facility] Start: 01-07-2016 Rare [facility] Start: 01-07-2016 None [facility] Start: 01-07-2016 Spouse/ Signif icant Other [facility] Start: 03-11-2020 Non-smoker [facility] Start: 1960 Sex Assigned At Male [facility] Start: 08-14-2022 End: 10-05-2022 Tobacco use panel [facility] Work Phone: Adult Depression Screening Assessment 0 [facility] Work Phone: Start: 07-11-2024 Sex Male (finding) [facility] Medical Equipment Procedure Code Equipment Code Equipment Origin al Text Equipment Identifier Dates Insertion, catheter, hemodialysis CATHETER, CVD PLNDRME 19CM FDA Start: 01-01-2020 Insertion, catheter, hemodialysis CATHETER, CVD PLNDRME 19CM FDA Start: 01-01-2020 Insertion, catheter, hemodialysis CATHETER, CVD PLNDRME 19CM FDA Start: 01-01-2020 Insertion, catheter, hemodialysis CATHETER, CVD PLNDRME 19CM FDA Start: 01-01-2020 Insertion, catheter, hemodialysis CATHETER, CVD PLNDRME 19CM FDA Start: 01-01-2020 Insertion, catheter, hemodialysis CATHETER, CVD PLNDRME 19CM FDA Start: 01-01-2020 Insertion, catheter, hemodialysis CATHETER, CVD PLNDRME 19CM FDA Start: 01-01-2020 Insertion, catheter, hemodialysis CATHETER, CVD PLNDRME 19CM FDA Start: 01-01-2020 Insertion, catheter, hemodialysis CATHETER, CVD PLNDRME 19CM FDA Start: 01-01-2020 Insertion, catheter, hemodialysis CATHETER, CVD PLNDRME 19CM FDA Start: 01-01-2020 Insertion, catheter, hemodialysis CATHETER, CVD PLNDRME 19CM FDA Start: 01-01-2020 Insertion, catheter, hemodialysis CATHETER, CVD PLNDRME 19CM FDA Start: 01-01-2020 Insertion, catheter, hemodialysis CATHETER, CVD PLNDRME 19CM FDA Start: 01-01-2020 Insertion, catheter, hemodialysis CATHETER, CVD PLNDRME 19CM FDA Start: 01-01-2020 Stent Ureteral 6 fr 12cm 100cm .028in Closed Tip Push - [id number] Start: 03-27-2021 Comment on above: Description: Donor k idney ureter [id number] Start: 05-31-2012 End: 11-06-2023 Comment on above: Checking blood sugar s 3-4 times daily use as directed up t o four times daily, E11.9 Test blood sugar(s) 3-4 times daily. Dx: 250.00 . Insulin: Yes DM1 on Pump [id number] Start: 03-07-2011 End: 11-06-2023 6 times daily [id number] Start: 04-27-2011 End: 11-06-2023 SUTURE,LIGA CLIP MED LT200 FDA Start: 07-28-2019 SUTURE,LIGA CLIP MED LT200 FDA Start: 07-28-2019 SUTURE,LIGA CLIP SM LT-100 FDA Start: 07-28-2019 SUTURE,LIGA CLIP SM LT-100 FDA Start: 07-28-2019 SUTURE,LIGA CLIP SM LT-100 FDA Start: 07-28-2019 SUTURE,LIGA CLIP SM LT-100 FDA Start: 07-28-2019 CATHETER,PERITEN EA L DIALYSIS FDA Start: 03-19-2020 Blood Sugar Diagnostic (Accu-Chek Katey Plus Test Strp) strip Start: 07-18-2021 Pen Needle, Diabetic (Bd Ultra-Fine Cici Pen Needle) 32 gauge x 5/32 needle Start: 02-12-2020 Blood Sugar Diagnostic (Accu-Chek Katey Plus Test Strp) strip Start: 06-09-2021 End: 07-18-2021 Blood Sugar Diagnostic (Accu-Chek Katey Plus Test Strp) strip Start: 11-11-2019 End: 11-17-2020 Blood Sugar Diagnostic (Accu-Chek Katey Plus Test Strp) strip Start: 11-17-2020 End: 06-09-2021 Blood Sugar Diagnostic (Onetouch Ultra Blue Test Strip) strip Start: 06-27-2018 End: 06-29-2018 Pen Needle, Diabetic (Bd Ultra-Fine Mini Pen Needle) 31 gauge x 3/16 needle Start: 06-27-2018 End: 06-29-2018 SUTURE,LIGA CLIP MED LT200 FDA Start: 07-28-2019 SUTURE,LIGA CLIP MED LT200 FDA Start: 07-28-2019 SUTURE,LIGA CLIP SM LT-100 FDA Start: 07-28-2019 SUTURE,LIGA CLIP SM LT-100 FDA Start: 07-28-2019 SUTURE,LIGA CLIP SM LT-100 FDA Start: 07-28-2019 SUTURE,LIGA CLIP SM LT-100 FDA Start: 07-28-2019 CATHETER,PERITEN EA L DIALYSIS FDA Start: 03-19-2020 Blood Sugar Diagnostic (Accu-Chek Katey Plus Test Strp) strip Start: 07-18-2021 Pen Needle, Diabetic (Bd Ultra-Fine Cici Pen Needle) 32 gauge x 5/32 needle Start: 02-12-2020 Blood Sugar Diagnostic (Accu-Chek Katey Plus Test Strp) strip Start: 06-09-2021 End: 07-18-2021 Blood Sugar Diagnostic (Accu-Chek Katey Plus Test Strp) strip Start: 11-11-2019 End: 11-17-2020 Blood Sugar Diagnostic (Accu-Chek Katey Plus Test Strp) strip Start: 11-17-2020 End: 06-09-2021 Blood Sugar Diagnostic (Onetouch Ultra Blue Test Strip) strip Start: 06-27-2018 End: 06-29-2018 Pen Needle, Diabetic (Bd Ultra-Fine Mini Pen Needle) 31 gauge x 3/16 needle Start: 06-27-2018 End: 06-29-2018 SUTURE,LIGA CLIP MED LT200 FDA Start: 07-28-2019 SUTURE,LIGA CLIP MED LT200 FDA Start: 07-28-2019 SUTURE,LIGA CLIP SM LT-100 FDA Start: 07-28-2019 SUTURE,LIGA CLIP SM LT-100 FDA Start: 07-28-2019 SUTURE,LIGA CLIP SM LT-100 FDA Start: 07-28-2019 SUTURE,LIGA CLIP SM LT-100 FDA Start: 07-28-2019 CATHETER,PERITEN EA L DIALYSIS FDA Start: 03-19-2020 Blood Sugar Diagnostic (Accu-Chek Katey Plus Test Strp) strip Start: 07-18-2021 Pen Needle, Diabetic (Bd Ultra-Fine Cici Pen Needle) 32 gauge x 5/32 needle Start: 02-12-2020 Blood Sugar Diagnostic (Accu-Chek Katey Plus Test Strp) strip Start: 06-09-2021 End: 07-18-2021 Blood Sugar Diagnostic (Accu-Chek Katey Plus Test Strp) strip Start: 11-11-2019 End: 11-17-2020 Blood Sugar Diagnostic (Accu-Chek Katey Plus Test Strp) strip Start: 11-17-2020 End: 06-09-2021 Blood Sugar Diagnostic (Onetouch Ultra Blue Test Strip) strip Start: 06-27-2018 End: 06-29-2018 Pen Needle, Diabetic (Bd Ultra-Fine Mini Pen Needle) 31 gauge x 3/16 needle Start: 06-27-2018 End: 06-29-2018 SUTURE,LIGA CLIP MED LT200 FDA Start: 07-28-2019 SUTURE,LIGA CLIP MED LT200 FDA Start: 07-28-2019 SUTURE,LIGA CLIP SM LT-100 FDA Start: 07-28-2019 SUTURE,LIGA CLIP SM LT-100 FDA Start: 07-28-2019 SUTURE,LIGA CLIP SM LT-100 FDA Start: 07-28-2019 SUTURE,LIGA CLIP SM LT-100 FDA Start: 07-28-2019 CATHETER,PERITEN EA L DIALYSIS FDA Start: 03-19-2020 Blood Sugar Diagnostic (Accu-Chek Katey Plus Test Strp) strip Start: 07-18-2021 Pen Needle, Diabetic (Bd Ultra-Fine Cici Pen Needle) 32 gauge x 5/32 needle Start: 02-12-2020 Blood Sugar Diagnostic (Accu-Chek Katey Plus Test Strp) strip Start: 06-09-2021 End: 07-18-2021 Blood Sugar Diagnostic (Accu-Chek Katey Plus Test Strp) strip Start: 11-11-2019 End: 11-17-2020 Blood Sugar Diagnostic (Accu-Chek Katey Plus Test Strp) strip Start: 11-17-2020 End: 06-09-2021 Blood Sugar Diagnostic (Onetouch Ultra Blue Test Strip) strip Start: 06-27-2018 End: 06-29-2018 Pen Needle, Diabetic (Bd Ultra-Fine Mini Pen Needle) 31 gauge x 3/16 needle Start: 06-27-2018 End: 06-29-2018 SUTURE,LIGA CLIP MED LT200 FDA Start: 07-28-2019 SUTURE,LIGA CLIP MED LT200 FDA Start: 07-28-2019 SUTURE,LIGA CLIP SM LT-100 FDA Start: 07-28-2019 SUTURE,LIGA CLIP SM LT-100 FDA Start: 07-28-2019 SUTURE,LIGA CLIP SM LT-100 FDA Start: 07-28-2019 SUTURE,LIGA CLIP SM LT-100 FDA Start: 07-28-2019 CATHETER,PERITEN EA L DIALYSIS FDA Start: 03-19-2020 Blood Sugar Diagnostic (Accu-Chek Katey Plus Test Strp) strip Start: 07-18-2021 Pen Needle, Diabetic (Bd Ultra-Fine Cici Pen Needle) 32 gauge x 5/32 needle Start: 02-12-2020 Blood Sugar Diagnostic (Accu-Chek Katey Plus Test Strp) strip Start: 06-09-2021 End: 07-18-2021 Blood Sugar Diagnostic (Accu-Chek Katey Plus Test Strp) strip Start: 11-11-2019 End: 11-17-2020 Blood Sugar Diagnostic (Accu-Chek Katey Plus Test Strp) strip Start: 11-17-2020 End: 06-09-2021 Blood Sugar Diagnostic (Onetouch Ultra Blue Test Strip) strip Start: 06-27-2018 End: 06-29-2018 Pen Needle, Diabetic (Bd Ultra-Fine Mini Pen Needle) 31 gauge x 3/16 needle Start: 06-27-2018 End: 06-29-2018 SUTURE,LIGA CLIP MED LT200 FDA Start: 07-28-2019 SUTURE,LIGA CLIP MED LT200 FDA Start: 07-28-2019 SUTURE,LIGA CLIP SM LT-100 FDA Start: 07-28-2019 SUTURE,LIGA CLIP SM LT-100 FDA Start: 07-28-2019 SUTURE,LIGA CLIP SM LT-100 FDA Start: 07-28-2019 SUTURE,LIGA CLIP SM LT-100 FDA Start: 07-28-2019 CATHETER,PERITEN EA L DIALYSIS FDA Start: 03-19-2020 Blood Sugar Diagnostic (Accu-Chek Katey Plus Test Strp) strip Start: 07-18-2021 Pen Needle, Diabetic (Bd Ultra-Fine Cici Pen Needle) 32 gauge x 5/32 needle Start: 02-12-2020 Blood Sugar Diagnostic (Accu-Chek Katey Plus Test Strp) strip Start: 06-09-2021 End: 07-18-2021 Blood Sugar Diagnostic (Accu-Chek Katey Plus Test Strp) strip Start: 11-11-2019 End: 11-17-2020 Blood Sugar Diagnostic (Accu-Chek Katey Plus Test Strp) strip Start: 11-17-2020 End: 06-09-2021 Blood Sugar Diagnostic (Onetouch Ultra Blue Test Strip) strip Start: 06-27-2018 End: 06-29-2018 Pen Needle, Diabetic (Bd Ultra-Fine Mini Pen Needle) 31 gauge x 3/16 needle Start: 06-27-2018 End: 06-29-2018 SUTURE,LIGA CLIP MED LT200 FDA Start: 07-28-2019 SUTURE,LIGA CLIP MED LT200 FDA Start: 07-28-2019 SUTURE,LIGA CLIP SM LT-100 FDA Start: 07-28-2019 SUTURE,LIGA CLIP SM LT-100 FDA Start: 07-28-2019 SUTURE,LIGA CLIP SM LT-100 FDA Start: 07-28-2019 SUTURE,LIGA CLIP SM LT-100 FDA Start: 07-28-2019 CATHETER,PERITEN EA L DIALYSIS FDA Start: 03-19-2020 Blood Sugar Diagnostic (Accu-Chek Katey Plus Test Strp) strip Start: 09-27-2021 Pen Needle, Diabetic (Bd Ultra-Fine Cici Pen Needle) 32 gauge x 5/32 needle Start: 02-12-2020 Blood Sugar Diagnostic (Accu-Chek Katey Plus Test Strp) strip Start: 06-09-2021 End: 07-18-2021 Blood Sugar Diagnostic (Accu-Chek Katey Plus Test Strp) strip Start: 11-11-2019 End: 11-17-2020 Blood Sugar Diagnostic (Accu-Chek Katey Plus Test Strp) strip Start: 11-17-2020 End: 06-09-2021 Blood Sugar Diagnostic (Accu-Chek Katey Plus Test Strp) strip Start: 07-18-2021 End: 09-22-2021 Blood Sugar Diagnostic (Accu-Chek Katey Plus Test Strp) strip Start: 09-22-2021 End: 09-27-2021 Blood Sugar Diagnostic (Onetouch Ultra Blue Test Strip) strip Start: 06-27-2018 End: 06-29-2018 Pen Needle, Diabetic (Bd Ultra-Fine Mini Pen Needle) 31 gauge x 3/16 needle Start: 06-27-2018 End: 06-29-2018 SUTURE,LIGA CLIP MED LT200 FDA Start: 07-28-2019 SUTURE,LIGA CLIP MED LT200 FDA Start: 07-28-2019 SUTURE,LIGA CLIP SM LT-100 FDA Start: 07-28-2019 SUTURE,LIGA CLIP SM LT-100 FDA Start: 07-28-2019 SUTURE,LIGA CLIP SM LT-100 FDA Start: 07-28-2019 SUTURE,LIGA CLIP SM LT-100 FDA Start: 07-28-2019 CATHETER,PERITEN EA L DIALYSIS FDA Start: 03-19-2020 Blood Sugar Diagnostic (Accu-Chek Katey Plus Test Strp) strip Start: 09-27-2021 Pen Needle, Diabetic (Bd Ultra-Fine Cici Pen Needle) 32 gauge x 5/32 needle Start: 02-12-2020 Blood Sugar Diagnostic (Accu-Chek Katey Plus Test Strp) strip Start: 06-09-2021 End: 07-18-2021 Blood Sugar Diagnostic (Accu-Chek Katey Plus Test Strp) strip Start: 11-11-2019 End: 11-17-2020 Blood Sugar Diagnostic (Accu-Chek Katey Plus Test Strp) strip Start: 11-17-2020 End: 06-09-2021 Blood Sugar Diagnostic (Accu-Chek Katey Plus Test Strp) strip Start: 07-18-2021 End: 09-22-2021 Blood Sugar Diagnostic (Accu-Chek Katey Plus Test Strp) strip Start: 09-22-2021 End: 09-27-2021 Blood Sugar Diagnostic (Onetouch Ultra Blue Test Strip) strip Start: 06-27-2018 End: 06-29-2018 Pen Needle, Diabetic (Bd Ultra-Fine Mini Pen Needle) 31 gauge x 3/16 needle Start: 06-27-2018 End: 06-29-2018 SUTURE,LIGA CLIP MED LT200 FDA Start: 07-28-2019 SUTURE,LIGA CLIP MED LT200 FDA Start: 07-28-2019 SUTURE,LIGA CLIP SM LT-100 FDA Start: 07-28-2019 SUTURE,LIGA CLIP SM LT-100 FDA Start: 07-28-2019 SUTURE,LIGA CLIP SM LT-100 FDA Start: 07-28-2019 SUTURE,LIGA CLIP SM LT-100 FDA Start: 07-28-2019 CATHETER,PERITEN EA L DIALYSIS FDA Start: 03-19-2020 Blood Sugar Diagnostic (Accu-Chek Katey Plus Test Strp) strip Start: 01-09-2023 Blood Sugar Diagnostic (Blood Glucose Test) strip Start: 10-13-2022 Pen Needle, Diabetic (Bd Ultra-Fine Cici Pen Needle) 32 gauge x 5/32 needle Start: 02-12-2020 Blood Sugar Diagnostic (Accu-Chek Katey Plus Test Strp) strip Start: 06-09-2021 End: 07-18-2021 Blood Sugar Diagnostic (Accu-Chek Katey Plus Test Strp) strip Start: 11-11-2019 End: 11-17-2020 Blood Sugar Diagnostic (Accu-Chek Katey Plus Test Strp) strip Start: 11-17-2020 End: 06-09-2021 Blood Sugar Diagnostic (Accu-Chek Katey Plus Test Strp) strip Start: 07-18-2021 End: 09-22-2021 Blood Sugar Diagnostic (Accu-Chek Katey Plus Test Strp) strip Start: 09-22-2021 End: 09-27-2021 Blood Sugar Diagnostic (Accu-Chek Katey Plus Test Strp) strip Start: 09-27-2021 End: 06-13-2022 Blood Sugar Diagnostic (Accu-Chek Katey Plus Test Strp) strip Start: 06-13-2022 End: 01-09-2023 Blood Sugar Diagnostic (Onetouch Ultra Blue Test Strip) strip Start: 06-27-2018 End: 06-29-2018 Pen Needle, Diabetic (Bd Ultra-Fine Mini Pen Needle) 31 gauge x 3/16 needle Start: 06-27-2018 End: 06-29-2018 SUTURE,LIGA CLIP MED LT200 FDA Start: 07-28-2019 SUTURE,LIGA CLIP MED LT200 FDA Start: 07-28-2019 SUTURE,LIGA CLIP SM LT-100 FDA Start: 07-28-2019 SUTURE,LIGA CLIP SM LT-100 FDA Start: 07-28-2019 SUTURE,LIGA CLIP SM LT-100 FDA Start: 07-28-2019 SUTURE,LIGA CLIP SM LT-100 FDA Start: 07-28-2019 CATHETER,PERITEN EA L DIALYSIS FDA Start: 03-19-2020 Blood Sugar Diagnostic (Accu-Chek Katey Plus Test Strp) strip Start: 01-09-2023 Blood Sugar Diagnostic (Blood Glucose Test) strip Start: 10-13-2022 Pen Needle, Diabetic (Bd Ultra-Fine Cici Pen Needle) 32 gauge x 5/32 needle Start: 02-12-2020 Blood Sugar Diagnostic (Accu-Chek Katey Plus Test Strp) strip Start: 06-09-2021 End: 07-18-2021 Blood Sugar Diagnostic (Accu-Chek Katey Plus Test Strp) strip Start: 11-11-2019 End: 11-17-2020 Blood Sugar Diagnostic (Accu-Chek Katey Plus Test Strp) strip Start: 11-17-2020 End: 06-09-2021 Blood Sugar Diagnostic (Accu-Chek Katey Plus Test Strp) strip Start: 07-18-2021 End: 09-22-2021 Blood Sugar Diagnostic (Accu-Chek Katey Plus Test Strp) strip Start: 09-22-2021 End: 09-27-2021 Blood Sugar Diagnostic (Accu-Chek Katey Plus Test Strp) strip Start: 09-27-2021 End: 06-13-2022 Blood Sugar Diagnostic (Accu-Chek Katey Plus Test Strp) strip Start: 06-13-2022 End: 01-09-2023 Blood Sugar Diagnostic (Onetouch Ultra Blue Test Strip) strip Start: 06-27-2018 End: 06-29-2018 Pen Needle, Diabetic (Bd Ultra-Fine Mini Pen Needle) 31 gauge x 3/16 needle Start: 06-27-2018 End: 06-29-2018 SUTURE,LIGA CLIP MED LT200 FDA Start: 07-28-2019 SUTURE,LIGA CLIP MED LT200 FDA Start: 07-28-2019 SUTURE,LIGA CLIP SM LT-100 FDA Start: 07-28-2019 SUTURE,LIGA CLIP SM LT-100 FDA Start: 07-28-2019 SUTURE,LIGA CLIP SM LT-100 FDA Start: 07-28-2019 SUTURE,LIGA CLIP SM LT-100 FDA Start: 07-28-2019 CATHETER,PERITEN EA L DIALYSIS FDA Start: 03-19-2020 Blood Sugar Diagnostic (Accu-Chek Katey Plus Test Strp) strip Start: 01-09-2023 Blood Sugar Diagnostic (Blood Glucose Test) strip Start: 10-13-2022 Pen Needle, Diabetic (Bd Ultra-Fine Cici Pen Needle) 32 gauge x 5/32 needle Start: 02-12-2020 Blood Sugar Diagnostic (Accu-Chek Katey Plus Test Strp) strip Start: 06-09-2021 End: 07-18-2021 Blood Sugar Diagnostic (Accu-Chek Katey Plus Test Strp) strip Start: 11-11-2019 End: 11-17-2020 Blood Sugar Diagnostic (Accu-Chek Katey Plus Test Strp) strip Start: 11-17-2020 End: 06-09-2021 Blood Sugar Diagnostic (Accu-Chek Katey Plus Test Strp) strip Start: 07-18-2021 End: 09-22-2021 Blood Sugar Diagnostic (Accu-Chek Katey Plus Test Strp) strip Start: 09-22-2021 End: 09-27-2021 Blood Sugar Diagnostic (Accu-Chek Katey Plus Test Strp) strip Start: 09-27-2021 End: 06-13-2022 Blood Sugar Diagnostic (Accu-Chek Katey Plus Test Strp) strip Start: 06-13-2022 End: 01-09-2023 Blood Sugar Diagnostic (Onetouch Ultra Blue Test Strip) strip Start: 06-27-2018 End: 06-29-2018 Pen Needle, Diabetic (Bd Ultra-Fine Mini Pen Needle) 31 gauge x 3/16 needle Start: 06-27-2018 End: 06-29-2018 SUTURE,LIGA CLIP MED LT200 FDA Start: 07-28-2019 SUTURE,LIGA CLIP MED LT200 FDA Start: 07-28-2019 SUTURE,LIGA CLIP SM LT-100 FDA Start: 07-28-2019 SUTURE,LIGA CLIP SM LT-100 FDA Start: 07-28-2019 SUTURE,LIGA CLIP SM LT-100 FDA Start: 07-28-2019 SUTURE,LIGA CLIP SM LT-100 FDA Start: 07-28-2019 CATHETER,PERITEN EA L DIALYSIS FDA Start: 03-19-2020 Blood Sugar Diagnostic (Accu-Chek Guide Test Strips) strip Start: 06-04-2023 Blood Sugar Diagnostic (Blood Glucose Test) strip Start: 10-13-2022 Lancing Device With Lancets (Accu-Chek Soft Dev Lancets) kit Start: 06-04-2023 Pen Needle, Diabetic (Bd Ultra-Fine Cici Pen Needle) 32 gauge x 5/32 needle Start: 02-12-2020 Blood Sugar Diagnostic (Accu-Chek Katey Plus Test Strp) strip Start: 06-09-2021 End: 07-18-2021 Blood Sugar Diagnostic (Accu-Chek Katey Plus Test Strp) strip Start: 11-11-2019 End: 11-17-2020 Blood Sugar Diagnostic (Accu-Chek Katey Plus Test Strp) strip Start: 11-17-2020 End: 06-09-2021 Blood Sugar Diagnostic (Accu-Chek Katey Plus Test Strp) strip Start: 07-18-2021 End: 09-22-2021 Blood Sugar Diagnostic (Accu-Chek Katey Plus Test Strp) strip Start: 09-22-2021 End: 09-27-2021 Blood Sugar Diagnostic (Accu-Chek Katey Plus Test Strp) strip Start: 09-27-2021 End: 06-13-2022 Blood Sugar Diagnostic (Accu-Chek Katey Plus Test Strp) strip Start: 06-13-2022 End: 01-09-2023 Blood Sugar Diagnostic (Accu-Chek Katey Plus Test Strp) strip Start: 01-09-2023 End: 06-04-2023 Blood Sugar Diagnostic (Onetouch Ultra Blue Test Strip) strip Start: 06-27-2018 End: 06-29-2018 Pen Needle, Diabetic (Bd Ultra-Fine Mini Pen Needle) 31 gauge x 3/16 needle Start: 06-27-2018 End: 06-29-2018 Checking blood sugars 3-4 times daily [id number] Start: 11-07-2019 use as directed up to four times daily, E11.9 [id number] Start: 09-29-2019 Test blood sugar(s) 3-4 times daily. Dx: 250.00 . Insulin: Yes [id number] Start: 06-25-2017 SUTURE,LIGA CLIP MED LT200 FDA Start: 07-28-2019 SUTURE,LIGA CLIP MED LT200 FDA Start: 07-28-2019 SUTURE,LIGA CLIP SM LT-100 FDA Start: 07-28-2019 SUTURE,LIGA CLIP SM LT-100 FDA Start: 07-28-2019 SUTURE,LIGA CLIP SM LT-100 FDA Start: 07-28-2019 SUTURE,LIGA CLIP SM LT-100 FDA Start: 07-28-2019 CATHETER,PERITEN EA L DIALYSIS FDA Start: 03-19-2020 Blood Sugar Diagnostic (Accu-Chek Guide Test Strips) strip Start: 02-14-2024 Blood Sugar Diagnostic (Blood Glucose Test) strip Start: 10-13-2022 Lancing Device With Lancets (Accu-Chek Soft Dev Lancets) kit Start: 06-04-2023 Pen Needle, Diabetic (Bd Ultra-Fine Cici Pen Needle) 32 gauge x 5/32 needle Start: 02-12-2020 Blood Sugar Diagnostic (Accu-Chek Katey Plus Test Strp) strip Start: 06-09-2021 End: 07-18-2021 Blood Sugar Diagnostic (Accu-Chek Katey Plus Test Strp) strip Start: 11-11-2019 End: 11-17-2020 Blood Sugar Diagnostic (Accu-Chek Katey Plus Test Strp) strip Start: 11-17-2020 End: 06-09-2021 Blood Sugar Diagnostic (Accu-Chek Katey Plus Test Strp) strip Start: 07-18-2021 End: 09-22-2021 Blood Sugar Diagnostic (Accu-Chek Katey Plus Test Strp) strip Start: 09-22-2021 End: 09-27-2021 Blood Sugar Diagnostic (Accu-Chek Katey Plus Test Strp) strip Start: 09-27-2021 End: 06-13-2022 Blood Sugar Diagnostic (Accu-Chek Katey Plus Test Strp) strip Start: 06-13-2022 End: 01-09-2023 Blood Sugar Diagnostic (Accu-Chek Katey Plus Test Strp) strip Start: 01-09-2023 End: 06-04-2023 Blood Sugar Diagnostic (Accu-Chek Guide Test Strips) strip Start: 06-04-2023 End: 02-14-2024 Blood Sugar Diagnostic (Onetouch Ultra Blue Test Strip) strip Start: 06-27-2018 End: 06-29-2018 Pen Needle, Diabetic (Bd Ultra-Fine Mini Pen Needle) 31 gauge x 3/16 needle Start: 06-27-2018 End: 06-29-2018 SUTURE,LIGA CLIP MED LT200 FDA Start: 07-28-2019 SUTURE,LIGA CLIP MED LT200 FDA Start: 07-28-2019 SUTURE,LIGA CLIP SM LT-100 FDA Start: 07-28-2019 SUTURE,LIGA CLIP SM LT-100 FDA Start: 07-28-2019 SUTURE,LIGA CLIP SM LT-100 FDA Start: 07-28-2019 SUTURE,LIGA CLIP SM LT-100 FDA Start: 07-28-2019 CATHETER,PERITEN EA L DIALYSIS FDA Start: 03-19-2020 Blood Sugar Diagnostic (Accu-Chek Guide Test Strips) strip Start: 02-14-2024 Blood Sugar Diagnostic (Blood Glucose Test) strip Start: 10-13-2022 Lancing Device With Lancets (Accu-Chek Soft Dev Lancets) kit Start: 06-04-2023 Pen Needle, Diabetic (Bd Ultra-Fine Cici Pen Needle) 32 gauge x 5/32 needle Start: 02-12-2020 Blood Sugar Diagnostic (Accu-Chek Katey Plus Test Strp) strip Start: 06-09-2021 End: 07-18-2021 Blood Sugar Diagnostic (Accu-Chek Katey Plus Test Strp) strip Start: 11-11-2019 End: 11-17-2020 Blood Sugar Diagnostic (Accu-Chek Katey Plus Test Strp) strip Start: 11-17-2020 End: 06-09-2021 Blood Sugar Diagnostic (Accu-Chek Katey Plus Test Strp) strip Start: 07-18-2021 End: 09-22-2021 Blood Sugar Diagnostic (Accu-Chek Katey Plus Test Strp) strip Start: 09-22-2021 End: 09-27-2021 Blood Sugar Diagnostic (Accu-Chek Katey Plus Test Strp) strip Start: 09-27-2021 End: 06-13-2022 Blood Sugar Diagnostic (Accu-Chek Katey Plus Test Strp) strip Start: 06-13-2022 End: 01-09-2023 Blood Sugar Diagnostic (Accu-Chek Katey Plus Test Strp) strip Start: 01-09-2023 End: 06-04-2023 Blood Sugar Diagnostic (Accu-Chek Guide Test Strips) strip Start: 06-04-2023 End: 02-14-2024 Blood Sugar Diagnostic (Onetouch Ultra Blue Test Strip) strip Start: 06-27-2018 End: 06-29-2018 Pen Needle, Diabetic (Bd Ultra-Fine Mini Pen Needle) 31 gauge x 3/16 needle Start: 06-27-2018 End: 06-29-2018 Goals Date Patient Goal Desired Activity /State Personal health goal Functional Status Date Assessment Result Facility 06-11-2021 Functional status Ambulates [facility] Work Phone: 09-16-2019 Are you deaf, or do you have serious difficulty hearing No 09/16/2019 2:34 PM Gama Crespo RN No [facility] 09-16-2019 Are you blind, or do you have serious difficulty seeing, even when wearing glasses No 09/16/2019 2:34 PM Gama Crespo RN No [facility] 09-16-2019 Do you have serious difficulty walking or climbing stairs No 09/16/2019 2:34 PM Gama Crespo RN No [facility] 09-16-2019 Do you have difficul ty dressing or bathing No 09/16/2019 2:34 PM Gama Crespo RN No [facility] 09-16-2019 Because of a physica l, mental, or emotional condition, do you have difficulty doing errands alone such as visiting a physician's office or shopping No 09/16/2019 2:34 PM Gama Crespo RN No [facility] Mental Status Date Assessment Result Facility 04-25-2023 Cognitive function Level Of Cons ciousness Awake;Alert;Appropriate;Fol lows Commands [facility] Work Phone: 06-11-2021 Cognitive function Voice/Name [facility] Work Phone: 06-09-2021 Cognitive function Level Of Cons ciousness Awake;Alert;Appropriate;Fol lows Commands [facility] Work Phone: 09-16-2019 Because of a physica l, mental, or emotional condition, do you have serious difficulty concentrating, remembering, or making decisions No 09/16/2019 2:34 PM Gama Crespo RN No [facility] Clinical Notes 04-21-2011 to 09-24-2024 George Pacheco MD - 09/24/2024 1:23 PM EDTPatient InstructionsHandy Henderson DO - 09/17/2024 5:04 PM EDTPatient InstructionsTriny Palmer - 08/11/2024 2:18 PM EDTPatient Instructions Note Date & Type Note Facility 09-24-2024 Note HNO ID: [id number] Author: GEORGE PACHECO MD Service: ? Author Type: Physician Type: Progress Notes Filed: 09/24/2024 13:25 Note Text: ASSESSMENT/PLAN: 1. Primary open angle glaucoma (POAG) of right eye, mild stage - ICD9: 365.11, 365.71, ICD10: H40.1111 (primary diagnosis) 2. Primary open angle glaucoma (POAG) of left eye, mild stage - ICD9: 365.11, 365.71, ICD10: H40.1121 - Status Post Canaloplasty / Trabeculotomy - Right eye (01/12/2022) - Status post Canaloplasty / Trabeculotomy left eye 02/18/2021 Continue Current Ophthalmic Meds timolol maleate (TIMOPTIC) 0.5 % ophthalmic solution Use 1 drop in both eyes two times a day. 7 AM and 5 PM 3. Optic cupping of both eyes - ICD9: 377.14, ICD10: H47.233 - Monitor 4. 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 - Continue to monitor with primary care physician. 5. Pseudophakia of both eyes - ICD9: V43.1, ICD10: Z96.1 - Intraocular lens in good position both eyes I have confirmed and edited as necessary the relevant HPI, ophthalmic history, ROS, and the neuro exam findings as obtained by others. I have seen and examined Jordansolitariopaco Nickerson. I have discussed the case and the management of this patient's care with the Resident/Fellow, if applicable. I also have reviewed and agree with the assessment and plan as stated above and agree with all of its relevant components. [facility] 09-24-2024 History of Present illness Narrative ASSESSMENT/PLAN: 1. Primary open angle glaucoma (POAG) of right eye, mild stage - ICD9: 365.11, 365.71, ICD10: H40.1111 (primary diagnosis) 2. Primary open angle glaucoma (POAG) of left eye, mild stage - ICD9: 365.11, 365.71, ICD10: H40.1121 - Status Post Canaloplasty / Trabeculotomy - Right eye (01/12/2022) - Status post Canaloplasty / Trabeculotomy left eye 02/18/2021 Continue Current Ophthalmic Meds timolol maleate (TIMOPTIC) 0.5 % ophthalmic solution Use 1 drop in both eyes two times a day. 7 AM and 5 PM 3. Optic cupping of both eyes - ICD9: 377.14, ICD10: H47.233 - Monitor 4. 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 - Continue to monitor with primary care physician. 5. Pseudophakia of both eyes - ICD9: V43.1, ICD10: Z96.1 - Intraocular lens in good position both eyes I have confirmed and edited as necessary the relevant HPI, ophthalmic history, ROS, and the neuro exam findings as obtained by others. I have seen and examined Андрей Nickerson. I have discussed the case and the management of this patient's care with the Resident/Fellow, if applicable. I also have reviewed and agree with the assessment and plan as stated above and agree with all of its relevant components. documented in this encounter [facility] 09-24-2024 Note Date of Procedure 09/24/2024. Development Associate Information Winch Operator: [email or web address]. Quality Right Eye Good. Left Eye Good. NFL Interpretation Right Eye Normal. Left Eye Normal. Ganglion Cell Layer Thickness Right Eye Other ocular pathology influencing GCL interpretation. Left Eye Other ocular pathology influencing GCL interpretation. Interval Change Right Eye Stable. Left Eye Stable. [facility] 09-24-2024 Note Date of Procedure 09/24/2024. Development Associate Information Winch Operator: [email or web address]. Reliability Right Eye Good. Left Eye Good. Interpretation Right Eye Arcuate defect (superior and inferior). Left Eye Arcuate defect (superior and inferior). Interval Change Right Eye Stable. Left Eye Stable. [facility] 09-24-2024 Instructions George Pacheco MD - 09/24/2024 1:20 PM EDT Current Ophthalmic Meds timolol maleate (TIMOPTIC) 0.5 % ophthalmic solution Use 1 Drop in both eyes two times a day. 7 AM and 5 PM propylene glycoL (SYSTANE COMPLETE) 0.6 % drop Use 1 Drop in both eyes four times daily. If you have any questions please contact our office at [phone]. After office hours or on the weekend, please call Dr. Pacheco on his cell phone at [phone]. documented in this encounter [facility] 09-17-2024 Note HNO ID: [id number] Author: HANDY HENDERSON, DO Service: ? Author Type: Physician Type: Progress Notes Filed: 09/17/2024 17:08 Note Text: CC: Андрей Nickerson is a 64 year old male who presents to the office for follow up HPI: Obesity, states that he has been working on dietary improvements and is intentionally working on weight loss. His Weight is 255 lbs now, was previously at 260 lbs and 6-9 months ago was 272 lbs. Back pain, low back, intermittent, hx of injury/fall. Use of flexeril as needed, taking as prescribed. Also working with PHYSICAL THERAPY and stretches. Knows need for weight loss and more exercise as well. HTN, well controlled, taking medications as prescribed CKD, hx of renal transplant, continues to follow up with his [employer]. HPL, taking statin therapy with lipitor 40 mg a day + chronic fatigue, diagnosed at last OFFICE VISIT with vitamin D and vitamin B12 deficiency, he has just started taking supplement Hx of aortic dilation and LVH on echo- + chronic intermittent dyspnea, no chest pressure or pain or palpitations or syncope Did see Shirring Machine Operator at [facility] for opinion PAST MEDICAL HISTORY Diagnosis Date Arrhythmia CKD (chronic kidney disease) stage 3, GFR 30-59 ml/min ([facility]) [facility] Coronary artery disease 2006 s/p PCI. 3 stents total Diabetes type 1, uncontrolled 1971 nephropathy, retinopathy, dx age 10, Dr[facility] Leon [facility] Heart attack ([facility]) Hyperlipidemia Hypertension Lacunar stroke ([facility]) Macular edema [facility] MVP (mitral valve prolapse) Pancreatitis ([facility]) Proliferative diabetic retinopathy(362.02) [facility] Snoring Stroke ([facility]) 2017 Tobacco abuse PAST SURGICAL HISTORY Procedure Laterality Date AVASTIN (BEVACIZUMAB) 1.25MG INTRAVITREAL INJECTION OS (LEFT EYE) x5 (04/16/2015) Dr. Connelly CANALOPLASTY W/O STENT Right 01/12/2022 Canaloplasty 360 degrees / Trabeculotomy 180 degrees CARDIAC CATH 2006, 2009, 2012 mid / distal LAD stents DENISHA COLONOSCOPY FLX DX W/COLLJ SPEC WHEN PFRMD 10/08/2018 Colonoscopy PAST SURGICAL HISTORY OF Bilateral Keratectomy PAST SURGICAL HISTORY OF N/A 03/19/2020 Laparoscopic peritoneal dialysis catheter placement with omentopexy- Shamir Tsai MD PAST SURGICAL HISTORY OF 03/2020 PD Catheter PAST SURGICAL HISTORY OF Left 02/18/2021 Canaloplasty / Trabeculotomy TRANSPLANTATION OF KIDNEY Right 03/27/2021 XCAPSL CTRC RMVL INSJ IO LENS PROSTH W/O ECP Left 03/10/2015 Cataract Extraction with PC IOL XCAPSL CTRC RMVL INSJ IO LENS PROSTH W/O ECP Right 04/01/2015 Cataract Extraction with PC IOL Current Outpatient Medications Medication Sig peg 3350-Electrolytes (GOLYTELY) 236-22.74-6.74 -5.86 gram suspension Take 4,000 mL by mouth one time only for 1 dose. Refer to printed prep instructions from your provider. aspirin 325 mg cap Take 1 capsule by mouth once daily. atorvastatin (LIPITOR) 40 mg tablet Take 1 tablet by mouth once daily. carvedilol (COREG) 12.5 mg tablet Take 1 tablet by mouth once daily. famotidine (PEPCID) 20 mg tablet Take 1 tablet by mouth two times a day. (Patient taking differently: Take 20 mg by mouth two times a day as needed.) timolol maleate (TIMOPTIC) 0.5 % ophthalmic solution Use 1 Drop in both eyes two times a day. loperamide HCl (ANTI-DIARRHEAL) 2 mg tab Take 1 tablet by mouth as needed. cyclobenzaprine (FLEXERIL) 10 mg tablet Take 1 tablet by mouth three times a day as needed for muscle spasm or pain. furosemide (LASIX) 20 mg tablet Take 1 tablet by mouth every afternoon. (Patient not taking: Reported on 08/11/2024) amLODIPine (NORVASC) 2.5 mg tablet fluticasone (FLONASE) 50 mcg/actuation nasal spray Use 2 Sprays in each nostril once daily. Rinse mouth after use. (Patient taking differently: Use 2 sprays in each nostril once daily. Rinse mouth after use. Takes as needed) sirolimus (RAPAMUNE) 0.5 mg tablet Take 1 mg by mouth once daily. propylene glycoL (SYSTANE COMPLETE) 0.6 % drop Use 1 Drop in both eyes four times daily. docusate sodium (COLACE) 100 mg capsule Take 100 mg by mouth two times a day as needed for constipation. mycophenolate mofetil (CELLCEPT) 250 mg capsule Take by mouth twice daily. 4 caps q 12 hours sulfamethoxazole-trimethoprim (BACTRIM DS,SEPTRA DS) 800-160 mg per tablet Take by mouth twice daily. clopidogrel (PLAVIX) 75 mg tablet Take 1 tablet by mouth once daily. tamsulosin (FLOMAX) 0.4 mg TAKE 1 CAPSULE BY MOUTH EVERYDAY AT BEDTIME blood sugar diagnostic (ONETOUCH ULTRA TEST) test strip Checking blood sugars 3-4 times daily Insulin [place], Disposable, (BD ULTRAFINE III MINI PEN) 31 gauge x 3/16 use as directed up to four times daily, E11.9 Blood-Glucose Sensor (DEXCOM G6 SENSOR) darleen Change Sensor every 14 days Patient reading blood sugar 12 times daily Blood-Glucose Meter,Continuous (DEXCOM G4 B OPERATOR-SHARE KIT) [facility] [place] device, patient checks b (more content not included)... [facility] 09-17-2024 History of Present illness Narrative CC: Андрей Nickerson is a 64 year old male who presents to the office for follow up HPI: Obesity, states that he has been working on dietary improvements and is intentionally working on weight loss. His Weight is 255 lbs now, was previously at 260 lbs and 6-9 months ago was 272 lbs. Back pain, low back, intermittent, hx of injury/fall. Use of flexeril as needed, taking as prescribed. Also working with PHYSICAL THERAPY and stretches. Knows need for weight loss and more exercise as well. HTN, well controlled, taking medications as prescribed CKD, hx of renal transplant, continues to follow up with his [employer]. HPL, taking statin therapy with lipitor 40 mg a day + chronic fatigue, diagnosed at last OFFICE VISIT with vitamin D and vitamin B12 deficiency, he has just started taking supplement Hx of aortic dilation and LVH on echo- + chronic intermittent dyspnea, no chest pressure or pain or palpitations or syncope Did see Shirring Machine Operator at [facility] for opinion PAST MEDICAL HISTORY Diagnosis Date Arrhythmia CKD (chronic kidney disease) stage 3, GFR 30-59 ml/min ([facility]) [facility] Coronary artery disease 2005 s/p PCI. 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 Hyperlipidemia Hypertension Lacunar stroke ([facility]) Macular edema [facility] MVP (mitral valve prolapse) Pancreatitis ([facility]) Proliferative diabetic retinopathy(362.02) [facility] Snoring Stroke ([facility]) 2017 Tobacco abuse PAST SURGICAL HISTORY Procedure Laterality Date AVASTIN (BEVACIZUMAB) 1.25MG INTRAVITREAL INJECTION OS (LEFT EYE) x5 (04/16/2015) Dr. Connelly CANALOPLASTY W/O STENT Right 01/12/2022 Canaloplasty 360 degrees / Trabeculotomy 180 degrees CARDIAC CATH 2005, 2008, 2011 mid / distal LAD stents DENISHA COLONOSCOPY FLX DX W/COLLJ SPEC WHEN PFRMD 10/08/2018 Colonoscopy PAST SURGICAL HISTORY OF Bilateral Keratectomy PAST SURGICAL HISTORY OF N/A 03/19/2020 Laparoscopic peritoneal dialysis catheter placement with omentopexy- Shamir Tsai MD PAST SURGICAL HISTORY OF 03/2020 PD Catheter PAST SURGICAL HISTORY OF Left 02/18/2021 Canaloplasty / Trabeculotomy TRANSPLANTATION OF KIDNEY Right 03/27/2021 XCAPSL CTRC RMVL INSJ IO LENS PROSTH W/O ECP Left 03/10/2015 Cataract Extraction with PC IOL XCAPSL CTRC RMVL INSJ IO LENS PROSTH W/O ECP Right 04/01/2015 Cataract Extraction with PC IOL Current Outpatient Medications Medication Sig peg 3350-Electrolytes (GOLYTELY) 236-22.74-6.74 -5.86 gram suspension Take 4,000 mL by mouth one time only for 1 dose. Refer to printed prep instructions from your provider. aspirin 325 mg cap Take 1 capsule by mouth once daily. atorvastatin (LIPITOR) 40 mg tablet Take 1 tablet by mouth once daily. carvedilol (COREG) 12.5 mg tablet Take 1 tablet by mouth once daily. famotidine (PEPCID) 20 mg tablet Take 1 tablet by mouth two times a day. (Patient taking differently: Take 20 mg by mouth two times a day as needed.) timolol maleate (TIMOPTIC) 0.5 % ophthalmic solution Use 1 Drop in both eyes two times a day. loperamide HCl (ANTI-DIARRHEAL) 2 mg tab Take 1 tablet by mouth as needed. cyclobenzaprine (FLEXERIL) 10 mg tablet Take 1 tablet by mouth three times a day as needed for muscle spasm or pain. furosemide (LASIX) 20 mg tablet Take 1 tablet by mouth every afternoon. (Patient not taking: Reported on 08/11/2024) amLODIPine (NORVASC) 2.5 mg tablet fluticasone (FLONASE) 50 mcg/actuation nasal spray Use 2 Sprays in each nostril once daily. Rinse mouth after use. (Patient taking differently: Use 2 sprays in each nostril once daily. Rinse mouth after use. Takes as needed) sirolimus (RAPAMUNE) 0.5 mg tablet Take 1 mg by mouth once daily. propylene glycoL (SYSTANE COMPLETE) 0.6 % drop Use 1 Drop in both eyes four times daily. docusate sodium (COLACE) 100 mg capsule Take 100 mg by mouth two times a day as needed for constipation. mycophenolate mofetil (CELLCEPT) 250 mg capsule Take by mouth twice daily. 4 caps q 12 hours sulfamethoxazole-trimethoprim (BACTRIM DS,SEPTRA DS) 800-160 mg per tablet Take by mouth twice daily. clopidogrel (PLAVIX) 75 mg tablet Take 1 tablet by mouth once daily. tamsulosin (FLOMAX) 0.4 mg TAKE 1 CAPSULE BY MOUTH EVERYDAY AT BEDTIME blood sugar diagnostic (ONETOUCH ULTRA TEST) test strip Checking blood sugars 3-4 times daily Insulin [place], Disposable, (BD ULTRAFINE III MINI PEN) 31 gauge x 3/16 use as directed up to four times daily, E11.9 Blood-Glucose Sensor (DEXCOM G6 SENSOR) darleen Change Sensor every 14 days Patient reading blood sugar 12 times daily Blood-Glucose Meter,Continuous (DEXCOM G4 B OPERATOR-SHARE KIT) misc One [place] device, patient checks blood sugars 12 times daily Blood-Glucose Transmitter (DEXCOM G6 TRANSMITTER) darleen 1 Each as directed. Blood-Glucose Meter,Continuous (DEXCOM G6 B OPERATOR) misc 1 Each as directed. insulin detemir U-100 (LEVEMIR FLEXTOUCH U-100 INSULN) 100 unit/mL (3 mL) inpn injection INJECT 36 UNITS SUBCUTANEOUSLY DAILY AT BEDTIME. Lancets (MICROLET LANCET) lancets Test blood sugar(s) 3-4 times daily. Dx: 250.00 . Insulin: Yes Blood-Glucose Meter (ONETOUCH ULTRA2) monitoring kit 1 Each as needed. 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 (Patient not taking: Reported on 08/11/2024) No current facility-administered medications for this visit. ALLERGIES No Known Allergies Social History Tobacco Use Smoking status: Former Current packs/day: 1.00 Average packs/day: 1 pack/day for 30.0 years (30.0 ttl pk-yrs) Types: Cigarettes Smokeless tobacco: Never Vaping Use Vaping status: Never Used Substance Use Topics Alcohol use: Not Currently Drug use: Not Currently Types: Marijuana Comment: occasional--last used cannibis 04/2019 ROS: See HPI PE: BP 146/70 Pulse 72 Temp (Src) 96.1 (Left Tympanic) Resp 24 Wt 255 lb (115.7kg) Gen: A&OX3, NAD, non-toxic appearing HEENT: PERRLA, EOMs intact b/l, nares without drainage, pharynx without erythema, exudate, lesions, or drainage. Uvula midline. Neck: No LAD, no thyromegaly, no meningismus. CV: RRR, no murmur Lungs: CTA b/l, no wheezing Skin: No rashes, lesions, or wounds on exposed skin. Central obesity Insulin pump and CGM in central abdomen No edema legs, normal pulses ASSESSMENT/PLAN: 1. Essential hypertension - ICD9: 401.9, ICD10: I10 (primary diagnosis) - Controlled - Continue current medications - Recommend home blood pressure monitoring, to bring results to next visit - Encouraged sodium restriction, DASH or Mediterranean diet - Recommend regular aerobic exercise - Discussed need for and benefit of weight loss. BMI 36.59 kg/(m^2) 2. Screening for colon cancer - ICD9: V76.51, ICD10: Z12.11 - PEG 3350-ELECTROLYTES 236 GRAM-22.74 GRAM-6.74 GRAM-5.86 GRAM SOLUTION - COLONOSCOPY SCREENING 3. 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 4. Vitamin D deficiency - ICD9: 268.9, ICD10: E55.9 Just started supplement, levels were low.; this will help with fatigue 5. Hypercholesteremia - ICD9: 272.0, ICD10: E78.00 Stable, chronic. 6. LVH (left ventricular hypertrophy) - ICD9: 429.3, ICD10: I51.7 Seen by Shirring Machine Operator, no new changes in symptoms 7. Aortic dilatation - ICD9: 447.70, ICD10: I77.819 Seen by Shirring Machine Operator, no new changes in symptoms 8. NORBERTO (obstructive sleep apnea) - ICD9: 327.23, ICD10: G47.33 Continue CPAP 9. Status post kidney transplant (HCC) - ICD9: V42.0, ICD10: Z94.0 F/u with [employer] 10. Vitamin B12 deficiency - ICD9: 266.2, ICD10: E53.8 Just started supplement, levels were low.; this will help with fatigue Handy Henderson DO Return if no improvement. Follow up with Handy Henderson DO. To ER if develops chest pain, shortness of breath. Discussed risks, benefits, alternatives, and potential side effects of medications. Patient/Guardian expressed understanding and agreed with the plan. See patient instructions. Handy Henderson DO [address] [place] [address] documented in this encounter [facility] 09-17-2024 Instructions Christine Killian LPN - 09/17/2024 3:01 PM EDT COLONOSCOPY BOWEL PREPARATION INSTRUCTIONS GOLYTELY/NULYTELY/TRILYTE/COLYTE Your doctor has scheduled you for a colonoscopy. To have a successful colonoscopy, you must have a clean colon, that is empty. A clean colon allows your doctor to see the entire colon & diagnose issues like polyps or cancer. For doctors, a clean colon is like driving on a omari day; a dirty colon like driving in a storm. It is very important that you follow these instructions exactly, or your colonoscopy might not be as effective, could be canceled, and you may need to do the bowel prep and the colonoscopy again. TRANSPORTATION REQUIREMENTS You are receiving IV sedation. For your safety, a responsible adult escort must accompany you to and from your procedure: Your adult escort MUST be present with you at check-in for your colonoscopy. Your adult escort MUST remain in the endoscopy area until you are discharged. Your adult escort MUST transport you home once you are discharged. You are NOT allowed to operate any form of transportation (i.e. drive a car, bicycle, etc.) or leave the Endoscopy Center ALONE. It is not safe to do so. If you cannot meet these requirements, your procedure will be canceled. MEDICATION REQUIREMENTS For your safety, certain medications will need to be stopped or adjusted before you can have your procedure: BLOOD THINNERS: If you take blood thinners, such as Coumadin (warfarin), Plavix (clopidogrel), Ticlid (ticlopidine hydrochloride), Agrylin (anagrelide), Xarelto (Rivaroxaban), Pradaxa (Dabigatran), Eliquis (Apixaban), or Effient (Prasugrel), contact the physician who is prescribing these medications at least 2 weeks prior to your procedure to discuss any necessary adjustments. DIABETES: If you take medications for diabetes, your dosage may need to be adjusted. If you are being treated for diabetes with insulin, diabetic pills, or other injectable medications do not take your REGULAR dose after midnight on the day of your procedure. If you are taking any other types of insulin such as Lantus, Humalog, NPH (long-acting insulin), or 70/30 insulin, take half your normal dose the day before your procedure. DIABETES/WEIGHT MANAGEMENT: If you take medications for weight-loss, your dosage may need to be adjusted Contact the doctor who prescribes this medication for further instructions. If you take medications for weight-loss like semaglutide (Ozempic, Wegovy, Rybelsus), dulaglutide (Trulicity), liraglutide (Victoza, Saxenda), exenatide (Byetta, Bydureon), or lixisenatide (Adylyxin), stop your medication 1 week prior to your procedure. If you take medications like canagliflozin (Invokana), dapagliflozin (Farxiga, Forxiga), empagliflozin (Jardiance), stop your medication 3 days prior to your procedure. If you take ertugliflozin (Steglatro) stop your medication 4 days prior to your procedure. IRON: If you take iron pills, STOP them 1 week BEFORE your procedure, may resume after. OTHER MEDS: May take all other medications (including aspirin, antibiotics, water pills / diuretics like Lasix or Metolozone, blood pressure meds, etc.) at their usual scheduled time with a sip of water. DIET REQUIREMENTS The day before your colonoscopy, you may have a clear liquid diet (see below). The day of your colonoscopy, you may continue a clear liquid diet until 3 hours before your colonoscopy. Within 3 hours of your colonoscopy, take only any medications (as above) with a sip of water. Clear Liquid Diet Broth (chicken, beef or vegetable broth or bullion. Just the broth, no solids). Water Coffee or Tea (NO milk or creamer), but sugar and sugar substitutes are allowed. Clear liquids including clear, yellow, green, blue (NO red, NO orange, NO purple) Sodas / soft drinks Gatorade or other sports drinks Billy-Aid or flavored drinks Plain Jell-O or other gelatins Fruit juice (strained; no-pulp) Popsicles or hard candy BOWEL PREPARATION (GOLYTELY/NULYTELY/TRILYTE/COLYTE ) Split Dosing Bowel Prep: This means drinking your bowel prep in two doses. Split dosing helps clean your colon better and makes it less likely that your procedure will be canceled. Fill your prescription for Golytely/Nulytely/Trilyte/Colyte: The afternoon before your colonoscopy, mix the solution and refrigerate. You may add the flavor pack (if present) that came with the bowel preparation. Do not add ice, sugar, or other flavorings to the solution. You will drink your prep in two doses, by several hours. On the evening before your colonoscopy: 1. 6 PM drink the first half of the bowel preparation solution. Drink one 8-ounce glass every 15 minutes. 2. Six hours before your colonoscopy, drink the second half of the solution. Drink one 8-ounce glass every 15 minutes. 3. You may continue a clear liquid diet until 3 hours before your colonoscopy. Bowel prep can work differently from person to person. Some people's bowels move slowly and they may need different instructions. Please see your doctor in office or virtually for personalized bowel prep instructions if you have: Medical condition that needs special accommodations Had a poor bowel prep results or failed bowel prep attempts in the past. Had difficulty with anesthesia during the procedure. FREQUENTLY ASKED QUESTIONS Q: What if I suffer from constipation? A: Recommend taking extra laxatives to resolve your constipation days prior to entering the bowel prep day. Q: What if have had prior poor preps results in past? A: Contact your physician as you will likely need additional bowel prep instructions. Q: What if I have motility issues like Parkinson's, MS (multiple sclerosis), wheelchair dependent, etc.? or on medications that slow bowel emptying (narcotics, gabapentin, anticholinergic medications etc.) A: Contact your physician as you will likely need extra time and additional laxatives to complete your bowel prep. Q: What if I cannot drink large volume of liquid? A: Start your prep 2-3 hours earlier to allow yourself more time to complete the entire prep. Q: What if I can't finish my bowel prep? A: If you cannot finish your entire bowel prep, it is likely that your colonoscopy will need to be rescheduled due to poor prep quality. Q: What if I had bariatric surgery? Do I still have to complete the entire prep? A: Yes, gastric bypass surgery involves the stomach & small bowel. You may need to drink smaller amounts, slower (may need more time to complete your bowel prep). Gastric bypass does not alter the length of your colon so you will need to complete the entire bowel prep, it may just take longer time to complete it. Q: What if I am on dialysis? A: Please consult your shoer prior to scheduling to get instructions pertinent to you. In general, dialysis patients take the AcEmpirely bowel prep and have the procedure same day of their dialysis (colonoscopy in AM, dialysis in PM). Q: How do I know if something is considered as clear liquid diet? A: If you can pour it in a glass and you can see through it, it is considered clear liquid Q: Can I eat nuts, seeds, beans, popcorn, dried fruits, vegetables & fruits that have skin peel? A: No, you will need to not eat these items starting 3 days prior to procedure. Q: Can I take Uber/Lyft/taxi/bus home? A: An adult MUST be present with you at check-in for your colonoscopy and remain in the endoscopy area until you are discharged. You can take Uber home only if this adult escort is with you at check in, remain in the endoscopy area until you are discharged, and takes the Uber with you to home. Q: Can I sleep it off here and drive myself home? A: No, you must have an adult with you at time of procedure check in, remain in the endoscopy center during your procedure, and drive you home. You cannot drive a vehicle after your procedure the rest of the day. documented in this encounter [facility] 08-14-2024 Telephone encounter Note Phoned patient went over results, notes from Dr Henderson with understanding. Patient requested to have sent to his my chart please, which was done. [facility] 08-14-2024 Miscellaneous Notes Phoned patient went over results, notes from Dr Henderson with understanding. Patient requested to have sent to his my chart please, which was done. Please let him know that his recent lab results show that his vitamin D levels and vitamin B12 levels are too low. Needs to increase supplements with extra 2000 international unit(s) a day of vitamin D3 with a meal as well as extra 500-1000 mcg a day of vitamin B12 supplement Handy Henderson DO documented in this encounter [facility] 08-13-2024 Telephone encounter Note Please let him know that his recent lab results show that his vitamin D levels and vitamin B12 levels are too low. Needs to increase supplements with extra 2000 international unit(s) a day of vitamin D3 with a meal as well as extra 500-1000 mcg a day of vitamin B12 supplement Handy Henderson DO [facility] 08-11-2024 History of Present illness Narrative Last saw pcp: 06/17/24 Subjective: Patient presents to clinic c/o painful toenails. They state that the nails are especially painful with shoe gear and pressure. Patient states that nails b/l hallux are painful. Patient admits to being diabetic No other pedal complaints at this time. Patient states no change in medications or medical history since last visit. Objective: Patient presents to clinic ambulating in diabetic shoes Vasc: DP and PT pulses are palpable bilateral. CFT is less than 5 seconds bilateral. Skin temperature is warm to cool proximal to distal bilateral. There is moderate edema or varicosities noted. Neuro: Protective sensation is decreased to the foot and toes when tested with the 5.07 SWM bilateral. Vibratory sensation is absent at the hallux IPJ bilateral. The hallux is downgoing bilateral. Derm: Nails 1-5 b/l are painful, discolored-yellow, thick, crumbly, dystrophic and with subungal debris. Skin is of normal turgor, texture and hair growth is absent bilateral. There are no hyperkeratosis, ulcerations, scars, verruca or other lesions noted. 4 mm nevus to right forefoot Ortho: Muscle strength is 5/5 for all pedal groups tested. Ankle joint DF is decreased with the knee extended with no pain or crepitus noted. 1st MPJ ROM is decreased bilateral. Assessment: (B35.1) Onychomycosis (primary encounter diagnosis) (M79.675) Pain in toe of left foot (M79.674) Pain in toe of right foot (E11.42) Diabetic polyneuropathy associated with type 2 diabetes mellitus (HCC) (I87.2) Venous insufficiency (D22.9) Nevus Plan: Patient was seen and evaluated. Nails 1-5 bilateral were debrided in length and thickness. Patient was instructed on the continued importance of diabetic foot care along with proper diet and keeping their blood sugar under control to prevent complications. I stressed the importance of avoiding barefoot walking, wearing good shoes and inspection of feet. Discussed swelling in lower extremity. Continue with compression stockings. Discussed likely nevus of right foot. Recommend monitoring for any change in size of lesion or color of lesion. Could consider excisional biopsy but with his swelling and relatively no change, I worry that excisional biopsy places him at risk of slow healing due to the swelling. Patient is to RTC in 3-4 months. Triny Palmer DPM Patient presents with: Left Foot - Established Patient, Follow Up, Diabetic Foot Care Right Foot - Established Patient, Follow Up, Diabetic Foot Care Patient presents for 3 month follow up diabetic foot/nail care. [facility] 05/12/24 documented in this encounter [facility] 08-11-2024 Note HNO ID: [id number] Author: TRINY PALMER, ? Service: ? Author Type: Physician Type: Progress Notes Filed: 08/11/2024 21:51 Note Text: Last saw pcp: 06/17/24 Subjective: Patient presents to clinic c/o painful toenails. They state that the nails are especially painful with shoe gear and pressure. Patient states that nails b/l hallux are painful. Patient admits to being diabetic No other pedal complaints at this time. Patient states no change in medications or medical history since last visit. Objective: Patient presents to clinic ambulating in diabetic shoes Vasc: DP and PT pulses are palpable bilateral. CFT is less than 5 seconds bilateral. Skin temperature is warm to cool proximal to distal bilateral. There is moderate edema or varicosities noted. Neuro: Protective sensation is decreased to the foot and toes when tested with the 5.07 SWM bilateral. Vibratory sensation is absent at the hallux IPJ bilateral. The hallux is downgoing bilateral. Derm: Nails 1-5 b/l are painful, discolored-yellow, thick, crumbly, dystrophic and with subungal debris. Skin is of normal turgor, texture and hair growth is absent bilateral. There are no hyperkeratosis, ulcerations, scars, verruca or other lesions noted. 4 mm nevus to right forefoot Ortho: Muscle strength is 5/5 for all pedal groups tested. Ankle joint DF is decreased with the knee extended with no pain or crepitus noted. 1st MPJ ROM is decreased bilateral. Assessment: (B35.1) Onychomycosis (primary encounter diagnosis) (M79.675) Pain in toe of left foot (M79.674) Pain in toe of right foot (E11.42) Diabetic polyneuropathy associated with type 2 diabetes mellitus (HCC) (I87.2) Venous insufficiency (D22.9) Nevus Plan: Patient was seen and evaluated. Nails 1-5 bilateral were debrided in length and thickness. Patient was instructed on the continued importance of diabetic foot care along with proper diet and keeping their blood sugar under control to prevent complications. I stressed the importance of avoiding barefoot walking, wearing good shoes and inspection of feet. Discussed swelling in lower extremity. Continue with compression stockings. Discussed likely nevus of right foot. Recommend monitoring for any change in size of lesion or color of lesion. Could consider excisional biopsy but with his swelling and relatively no change, I worry that excisional biopsy places him at risk of slow healing due to the swelling. Patient is to RTC in 3-4 months. Triny Palmer DPM [facility] 08-11-2024 Instructions Triny Palmer - 08/11/2024 2:17 PM EDT Diabetes Foot Care Instructions When you have diabetes, proper foot care is very important. Poor foot care may lead to amputation of a foot or leg. As a person with diabetes, you are more vulnerable to foot problems, because diabetes can damage your nerves and reduce blood flow to your feet. Here are some diabetes foot care tips to follow: Wash and Dry Your Feet Daily Use mild soaps Use warm water Pat your skin dry; do not rub. Thoroughly dry your feet. After washing, use lotion on your feet to prevent cracking. Do not put lotion between your toes. Examine Your Feet Each Day Check the tops and bottoms of your feet. Have someone else look at your feet if you cannot see them. Check for dry, cracked skin. Look for blisters, cuts, scratches, or other sores. Check for redness, increased warmth, or tenderness when touching any area of your feet. Check for ingrown toenails, corns, and calluses. If you get a blister or sore from your shoes, do not pop it. Apply a bandage and wear a different pair of shoes. Take Care of Your Toenails Cut toenails after bathing, when they are soft. Cut toenails straight across and smooth with a nail file. Avoid cutting into the corners of toes. Do not cut cuticles. If you have neuropathy (or decreased sensation in your feet) a track helper should always cut your toenails. Be Careful When Exercising Walk and exercise in comfortable shoes. Do not exercise when you have open sores on your feet. Protect Your Feet With Shoes and Socks Never go barefoot. Always protect your feet by wearing shoes or hard-soled slippers or footwear. Avoid shoes with high heels and pointed toes. Avoid shoes that expose your toes or heels (such as open-toed shoes or sandals). These types of shoes increase your risk for injury and potential infections. Try on new footwear with the type of socks you usually wear. Do not wear new shoes for more than an hour at a time. Change your socks daily. Look and feel inside your shoes before putting them on to make sure there are no foreign objects or rough areas. Avoid tight socks. Wear natural-fiber socks (cotton, wool, or a cotton-wool blend). Wear special shoes if your health care provider recommends them. Wear shoes/boots that will protect your feet from various weather conditions (cold, moisture, etc.). Make sure your shoes fit properly. If you have neuropathy (nerve damage), you may not notice that your shoes are too tight. Perform the footwear test described below. Footwear Test Use this simple test to see if your shoes fit correctly: Stand on a piece of paper. (Make sure you are standing and not sitting, because your foot changes shape when you stand.) Trace the outline of your foot. Trace the outline of your shoe. Compare the tracings: Is the shoe too narrow? Is your foot crammed into the shoe? The shoe should be at least 1/2 inch longer than your longest toe and as wide as your foot. Proper Shoe Choices The following types of shoes are best for people with diabetes Closed toes and heels Leather uppers without a seam inside At least 1/2 inch extra space at the end of your longest toe Inside of shoe should be soft with no rough areas Outer sole should be made of stiff material Shoes should be at least as wide as your feet Tips for Foot Care in Diabetes Don't wait to treat a minor foot problem if you have diabetes. Follow your health care provider's guidelines and first aid guidelines. Report foot injuries and infections to your health care provider immediately. Check water temperature with your elbow, not your foot. Do not use a heating pad on your feet. Do not cross your legs. Do not self-treat your corns, calluses, or other foot problems. Go to your health care provider or track helper to treat these conditions. documented in this encounter [facility] 08-11-2024 Note HNO ID: [id number] Author: DELMY BETH RN Service: ? Author Type: Registered Nurse Type: Progress Notes Filed: 08/11/2024 21:51 Note Text: Patient presents with: Left Foot - Established Patient, Follow Up, Diabetic Foot Care Right Foot - Established Patient, Follow Up, Diabetic Foot Care Patient presents for 3 month follow up diabetic foot/nail care. [facility] 05/12/24 [facility] 06-17-2024 Note HNO ID: [id number] Author: HANDY HENDERSON DO Service: ? Author Type: Physician Type: Progress Notes Filed: 06/18/2024 22:36 Note Text: CC: Андрей Nickerson is a 63 year old male who presents to the office to establish care. HPI: Obesity, states that he has been working on dietary improvements and is intentionally working on weight loss. His Weight is 255 lbs now, was previously at 260 lbs and 6 months ago was 272 lbs. Back pain, low back, intermittent, hx of injury/fall. Use of flexeril as needed, taking as prescribed. Also working with PHYSICAL THERAPY and stretches. Knows need for weight loss and more exercise as well. HTN, well controlled, taking medications as prescribed CKD, hx of renal transplant, continues to follow up with his [employer]. HPL, taking statin therapy with lipitor 40 mg a day + chronic fatigue Hx of aortic dilation and LVH on echo- + chronic intermittent dyspnea, no chest pressure or pain or palpitations or syncope PAST MEDICAL HISTORY Diagnosis Date Arrhythmia CKD (chronic kidney disease) stage 3, GFR 30-59 ml/min ([facility]) [facility] Coronary artery disease 2006 s/p PCI. 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 Leon [facility] Heart attack ([facility]) Hyperlipidemia Hypertension Lacunar stroke ([facility]) Macular edema [facility] MVP (mitral valve prolapse) Pancreatitis Proliferative diabetic retinopathy(362.02) [facility] Snoring Stroke ([facility]) 2017 Tobacco abuse PAST SURGICAL HISTORY Procedure Laterality Date AVASTIN (BEVACIZUMAB) 1.25MG INTRAVITREAL INJECTION OS (LEFT EYE) x5 (04/16/2015) Dr. 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 XCAPSL CTRC RMVL INSJ IO LENS PROSTH W/O ECP Left 03/10/2015 Cataract Extraction with PC IOL XCAPSL CTRC RMVL INSJ IO LENS PROSTH W/O ECP Right 04/01/2015 Cataract Extraction with PC IOL Social History: Social History Tobacco Use Smoking status: Former Current packs/day: 1.00 Average packs/day: 1 pack/day for 30.0 years (30.0 ttl pk-yrs) Types: Cigarettes Smokeless tobacco: Never Vaping Use Vaping status: Never Used Substance Use Topics Alcohol use: Not Currently Drug use: Not Currently Types: Marijuana Comment: occasional--last used cannibis 04/2019 FAMILY HISTORY Problem Relation Age of Onset Diabetes Mother Thyroid Mother Hyperlipidemia Mother Hypertension Mother No Known Problems Father No Ocular Disease Other Current Outpatient prescriptions: atorvastatin (LIPITOR) 40 mg tablet Take 1 tablet by mouth once daily. carvedilol (COREG) 12.5 mg tablet Take 1 tablet by mouth once daily. famotidine (PEPCID) 20 mg tablet Take 1 tablet by mouth two times a day. timolol maleate (TIMOPTIC) 0.5 % ophthalmic solution Use 1 Drop in both eyes two times a day. loperamide HCl (ANTI-DIARRHEAL) 2 mg tab Take 1 tablet by mouth as needed. cyclobenzaprine (FLEXERIL) 10 mg tablet Take 1 tablet by mouth three times a day as needed for muscle spasm or pain. furosemide (LASIX) 20 mg tablet Take 1 tablet by mouth every afternoon. amLODIPine (NORVASC) 2.5 mg tablet fluticasone (FLONASE) 50 mcg/actuation nasal spray Use 2 Sprays in each nostril once daily. Rinse mouth after use. sirolimus (RAPAMUNE) 0.5 mg tablet Take 1 mg by mouth once daily. propylene glycoL (SYSTANE COMPLETE) 0.6 % drop Use 1 Drop in both eyes four times daily. docusate sodium (COLACE) 100 mg capsule Take 100 mg by mouth twice daily. mycophenolate mofetil (CELLCEPT) 250 mg capsule Take by mouth twice daily. 4 caps q 12 hours sulfamethoxazole-trimethoprim (BACTRIM DS,SEPTRA DS) 800-160 mg per tablet Take by mouth twice daily. clopidogrel (PLAVIX) 75 mg tablet Take 1 tablet by mouth once daily. tamsulosin (FLOMAX) 0.4 mg TAKE 1 CAPSULE BY MOUTH EVERYDAY AT BEDTIME blood sugar diagnostic (ONETOUCH ULTRA TEST) test strip Checking blood sugars 3-4 times daily Insulin [place], Disposable, (BD ULTRAFINE III MINI PEN) 31 gauge x 3/16 use as directed up to four times daily, E11.9 Blood-Glucose Sensor (DEXCOM G6 SENSOR) darleen Change Sensor every 14 days Patient reading blood sugar 12 times daily Blood-Glucose Meter,Continuous (DEXCOM G4 B OPERATOR-SHARE KIT) mis One [place] device, patient checks blood sugars 12 times daily Blood-Glucose Transmitter (DEXCOM G6 TRANSMITTER) darleen 1 Each as directe (more content not included)... [facility] 06-17-2024 History of Present illness Narrative CC: Андрей Nickerson is a 63 year old male who presents to the office to establish care. HPI: Obesity, states that he has been working on dietary improvements and is intentionally working on weight loss. His Weight is 255 lbs now, was previously at 260 lbs and 6 months ago was 272 lbs. Back pain, low back, intermittent, hx of injury/fall. Use of flexeril as needed, taking as prescribed. Also working with PHYSICAL THERAPY and stretches. Knows need for weight loss and more exercise as well. HTN, well controlled, taking medications as prescribed CKD, hx of renal transplant, continues to follow up with his [employer]. HPL, taking statin therapy with lipitor 40 mg a day + chronic fatigue Hx of aortic dilation and LVH on echo- + chronic intermittent dyspnea, no chest pressure or pain or palpitations or syncope PAST MEDICAL HISTORY Diagnosis Date Arrhythmia CKD (chronic kidney disease) stage 3, GFR 30-59 ml/min ([facility]) [facility] Coronary artery disease 2006 s/p PCI. 3 stents total Diabetes type 1, uncontrolled 1971 nephropathy, retinopathy, dx age 10, Dr. Leon [facility] Heart attack ([facility]) Hyperlipidemia Hypertension Lacunar stroke ([facility]) Macular edema [facility] MVP (mitral valve prolapse) Pancreatitis Proliferative diabetic retinopathy(362.02) [facility] Snoring Stroke ([facility]) 2017 Tobacco abuse PAST SURGICAL HISTORY Procedure Laterality Date AVASTIN (BEVACIZUMAB) 1.25MG INTRAVITREAL INJECTION OS (LEFT EYE) x5 (04/16/2015) Dr. 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 XCAPSL CTRC RMVL INSJ IO LENS PROSTH W/O ECP Left 03/10/2015 Cataract Extraction with PC IOL XCAPSL CTRC RMVL INSJ IO LENS PROSTH W/O ECP Right 04/01/2015 Cataract Extraction with PC IOL Social History: Social History Tobacco Use Smoking status: Former Current packs/day: 1.00 Average packs/day: 1 pack/day for 30.0 years (30.0 ttl pk-yrs) Types: Cigarettes Smokeless tobacco: Never Vaping Use Vaping status: Never Used Substance Use Topics Alcohol use: Not Currently Drug use: Not Currently Types: Marijuana Comment: occasional--last used cannibis 04/2019 FAMILY HISTORY Problem Relation Age of Onset Diabetes Mother Thyroid Mother Hyperlipidemia Mother Hypertension Mother No Known Problems Father No Ocular Disease Other Current Outpatient prescriptions: atorvastatin (LIPITOR) 40 mg tablet Take 1 tablet by mouth once daily. carvedilol (COREG) 12.5 mg tablet Take 1 tablet by mouth once daily. famotidine (PEPCID) 20 mg tablet Take 1 tablet by mouth two times a day. timolol maleate (TIMOPTIC) 0.5 % ophthalmic solution Use 1 Drop in both eyes two times a day. loperamide HCl (ANTI-DIARRHEAL) 2 mg tab Take 1 tablet by mouth as needed. cyclobenzaprine (FLEXERIL) 10 mg tablet Take 1 tablet by mouth three times a day as needed for muscle spasm or pain. furosemide (LASIX) 20 mg tablet Take 1 tablet by mouth every afternoon. amLODIPine (NORVASC) 2.5 mg tablet fluticasone (FLONASE) 50 mcg/actuation nasal spray Use 2 Sprays in each nostril once daily. Rinse mouth after use. sirolimus (RAPAMUNE) 0.5 mg tablet Take 1 mg by mouth once daily. propylene glycoL (SYSTANE COMPLETE) 0.6 % drop Use 1 Drop in both eyes four times daily. docusate sodium (COLACE) 100 mg capsule Take 100 mg by mouth twice daily. mycophenolate mofetil (CELLCEPT) 250 mg capsule Take by mouth twice daily. 4 caps q 12 hours sulfamethoxazole-trimethoprim (BACTRIM DS,SEPTRA DS) 800-160 mg per tablet Take by mouth twice daily. clopidogrel (PLAVIX) 75 mg tablet Take 1 tablet by mouth once daily. tamsulosin (FLOMAX) 0.4 mg TAKE 1 CAPSULE BY MOUTH EVERYDAY AT BEDTIME blood sugar diagnostic (QuadriservTOUCH ULTRA TEST) test strip Checking blood sugars 3-4 times daily Insulin [place], Disposable, (BD ULTRAFINE III MINI PEN) 31 gauge x 3/16 use as directed up to four times daily, E11.9 Blood-Glucose Sensor (DEXCOM G6 SENSOR) darleen Change Sensor every 14 days Patient reading blood sugar 12 times daily Blood-Glucose Meter,Continuous (DEXCOM G4 B OPERATOR-SHARE KIT) misc One [place] device, patient checks blood sugars 12 times daily Blood-Glucose Transmitter (DEXCOM G6 TRANSMITTER) darleen 1 Each as directed. Blood-Glucose Meter,Continuous (DEXCOM G6 B OPERATOR) misc 1 Each as directed. insulin detemir U-100 (LEVEMIR FLEXTOUCH U-100 INSULN) 100 unit/mL (3 mL) inpn injection INJECT 36 UNITS SUBCUTANEOUSLY DAILY AT BEDTIME. Lancets (MICROLET LANCET) lancets Test blood sugar(s) 3-4 times daily. Dx: 250.00 . Insulin: Yes Blood-Glucose Meter (ONETOUCH ULTRA2) monitoring kit 1 Each as needed. 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 Allergies: ALLERGIES No Known Allergies ROS: See HPI PE: 06/17/24 1423 BP: 130/70 Pulse: 68 Resp: 20 Temp: 36.1 C (97 F) TempSrc: Left Tympanic Weight: 115.7 kg (255 lb) Gen: A&OX3, NAD, non-toxic appearing HEENT: PERRLA, EOMs intact b/l, nares without drainage, pharynx without erythema, exudate, lesions, or drainage. Uvula midline. Neck: No LAD, no thyromegaly, no meningismus. CV: RRR, no murmur Lungs: CTA b/l, no wheezing Skin: No rashes, lesions, or wounds on exposed skin. Central obesity Insulin pump and CGM in central abdomen No edema legs, normal pulses ASSESSMENT/PLAN: 1. Fatigue, unspecified type - ICD9: 780.79, ICD10: R53.83 (primary diagnosis) Labs as ordered Chronic, multifactorial - THYROID STIMULATING HORMONE - T4 FREE/FREE THYROXINE - VITAMIN B12 2. Hypercholesteremia - ICD9: 272.0, ICD10: E78.00 Labs as ordered Continue statin therapy - ATORVASTATIN 40 MG TABLET - THYROID STIMULATING HORMONE - T4 FREE/FREE THYROXINE 3. Vitamin D deficiency - ICD9: 268.9, ICD10: E55.9 Continue supplement, recheck labs. - VITAMIN D 25 HYDROXY 4. 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 Aortic dilatation (HCC) - ICD9: 447.70, ICD10: I77.819 See above, f/u with repeat Echo 6. Essential hypertension - ICD9: 401.9, ICD10: I10 - Controlled - Continue current medications - Recommend home blood pressure monitoring, to bring results to next visit - Encouraged sodium restriction, DASH or Mediterranean diet - Recommend regular aerobic exercise 7. 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) - ICD9: 250.51, 362.02, ICD10: E10.3553 F/u with Contact Clerk, has insulin pump 8. NORBERTO (obstructive sleep apnea) - ICD9: 327.23, ICD10: G47.33 Stable, chronic, continue use of CPAP with benefit 9. Status post kidney transplant - ICD9: V42.0, ICD10: Z94.0 F/u with [employer], stable 10. Chronic midline low back pain without sciatica - ICD9: 724.2, 338.29, ICD10: M54.50, G89.29 No new symptoms, stable Handy Henderson DO To ER if develops chest pain, shortness of breath, or severe worsening of symptoms. Discussed risks, benefits, alternatives, and potential side effects of medications. Patient expressed understanding and agreed with the plan. Handy Henderson DO [address] [place] [address] documented in this encounter [facility] 06-03-2024 Evaluation note Diagnosis Onset Date Resolution Left ventricular hypertrophy acute June 03, 2024 2:10pm Essential hypertension chronic June 03, 2024 2:10pm History of coronary artery stent placement April 21, 2011 chronic June 03, 2024 2:10pm Hyperlipidemia chronic June 03, 2024 2:10pm Kidney transplant recipient chronic June 03, 2024 2:10pm Venous insufficiency chronic 2024 2:10pm [facility] Work Phone: [phone]) 869-873302-21-2025 NoteDate of Procedure 05/23/2024. C/D Ratio Right Eye 0.3. Left Eye 0.3. Disc Right Eye Cupping. Left Eye Cupping. Macula Right Eye (Panretinal laser photocoagulation scars). Left Eye Normal. Periphery Right Eye Laser scars (MA's ). Left Eye Laser scars (MA's).[id number] NoteHNO ID: [id number] Author: GEORGE PACHECO MD Service: ? Author Type: Physician Type: Progress Notes Filed: 05/23/2024 14:38 Note Text: ASSESSMENT/PLAN: 1. Primary open angle glaucoma (POAG) of right eye, mild stage - ICD9: 365.11, 365.71, ICD10: H40.1111 (primary diagnosis) 2. Primary open angle glaucoma (POAG) of left eye, mild stage - ICD9: 365.11, 365.71, ICD10: H40.1121 3. Optic cupping of both eyes - ICD9: 377.14, ICD10: H47.233 - Status Post Canaloplasty / Trabeculotomy - Right eye (01/12/2022) Status post Canaloplasty / Trabeculotomy left eye 02/18/2021 The nature of glaucoma was discussed, with emphasis on the non-reversible damage to the optic nerve. Treatment options and the importance of regular examinations and testing were covered in detail, as well as the consequences of non-compliance. The patient was given the opportunity to ask questions. Continue: Current Ophthalmic Meds propylene glycoL (SYSTANE COMPLETE) 0.6 % drop Use 1 Drop in both eyes four times daily. timolol maleate (TIMOPTIC) 0.5 % ophthalmic solution Use 1 Drop in both eyes two times a day. Use 1 drop in both eyes at 8 am and 6 pm Return for Visual field and OCT 4. 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) - ICD9: 250.51, 362.02, ICD10: E10.3593 Please keep your blood sugar under good control to minimize risk of ocular complications from diabetes. 5. Secondary cataract obscuring vision left eye 6. Pseudophakia both eyes Refraction and glasses with Dr. Hipolito Cole Plan Yag laser right eye if unable to improve vision 7. Essential hypertension - ICD9: 401.9, ICD10: I10 8. Hypercholesteremia - ICD9: 272.0, ICD10: E78.00 Continue to monitor with primary care physician I have confirmed and edited as necessary the relevant HPI, ophthalmic history, ROS, and the neuro exam findings as obtained by others. I have seen and examined Андрей Nickerson. I have discussed the case and the management of this patient's care with the Resident/Fellow, if applicable. I also have reviewed and agree with the assessment and plan as stated above and agree with all of its relevant components. George Pacheco, [facility]02-21-2025 History of Present illness Narrative* George Pacheco MD - 05/23/2024 2:26 PM EST ASSESSMENT/PLAN: 1. Primary open angle glaucoma (POAG) of right eye, mild stage - ICD9: 365.11, 365.71, ICD10: H40.1111 (primary diagnosis) 2. Primary open angle glaucoma (POAG) of left eye, mild stage - ICD9: 365.11, 365.71, ICD10: H40.1121 3. Optic cupping of both eyes - ICD9: 377.14, ICD10: H47.233 - Status Post Canaloplasty / Trabeculotomy - Right eye (01/12/2022) Status post Canaloplasty / Trabeculotomy left eye 02/18/2021 The nature of glaucoma was discussed, with emphasis on the non-reversible damage to the optic nerve. Treatment options and the importance of regular examinations and testing were covered in detail, as well as the consequences of non-compliance. The patient was given the opportunity to ask questions. Continue: Current Ophthalmic Meds propylene glycoL (SYSTANE COMPLETE) 0.6 % drop Use 1 Drop in both eyes four times daily. timolol maleate (TIMOPTIC) 0.5 % ophthalmic solution Use 1 Drop in both eyes two times a day. Use 1drop in both eyes at 8 am and 6 pm Return for Visual field and OCT 4. 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 5. Secondary cataract obscuring vision left eye 6. Pseudophakia both eyes Refraction and glasses with Dr. Hipolito Cole Plan Yag laser right eye if unable to improve vision 7. Essential hypertension - ICD9: 401.9, ICD10: I10 8. Hypercholesteremia - ICD9: 272.0, ICD10: E78.00 Continue to monitor with primary care physician I have confirmed and edited as necessary the relevant HPI, ophthalmic history, ROS, and the neuro exam findings as obtained by others. I have seen and examined Андрей Nickerson. I have discussed the case and the management of this patient's care with the Resident/Fellow, if applicable. I also have reviewed and agree with the assessment and plan as stated above and agree withall of its relevant components. George Pacheco MD [facility] NoteHNO ID: [id number] Author: TRINY PALMER, ? Service: ? Author Type: Physician Type: Progress Notes Filed: 05/12/2024 14:44 Note Text: Last saw pcp: 03/12/24 Subjective: Patient presents to clinic c/o painful toenails. They state that the nails are especially painful with shoe gear and pressure. Patient states that nails 1-5 b/l are painful. Patient admits to being diabetic. No other pedal complaints at this time. Patient states no change in medications or medical history since last visit. Objective: Patient presents to clinic ambulating in diabetic boot Vasc: DP and PT pulses are palpable bilateral. CFT is less than 5 seconds bilateral. Skin temperature is warm to cool proximal to distal bilateral. There is moderate edema or varicosities noted. Neuro: Protective sensation is absent to the foot and toes when tested with the 5.07 SWM bilateral. Vibratory sensation is absent at the hallux IPJ bilateral. The hallux is downgoing bilateral. Derm: Nails 1-5 b/l are painful, discolored-yellow, thick, crumbly, dystrophic and with subungal debris. B/l hallux nail is incurvated. No signs of infection. Skin is of normal turgor, texture and hair growth is present bilateral. There are no hyperkeratosis, ulcerations, scars, verruca or other lesions noted. Ortho: Muscle strength is 5/5 for all pedal groups tested. Ankle joint DF is decreased with the knee extended with no pain or crepitus noted. 1st MPJ ROM is decreased bilateral. Assessment: (B35.1) Onychomycosis (primary encounter diagnosis) Ingrowing toenail (M79.675) Pain in toe of left foot (M79.674) Pain in toe of right foot (E11.42) Diabetic polyneuropathy associated with type 2 diabetes mellitus (HCC) Plan: Patient was seen and evaluated. Nails 1-5 bilateral were debrided in length and thickness. Discussed ingrowing tendency of b/l hallux. Options include periodic debridement vs partial or total nail matirxectomy. Patient has elected to continue with periodic debridement. Patient was instructed on the continued importance of diabetic foot care along with proper diet and keeping their blood sugar under control to prevent complications. Stressed the importance of avoiding barefoot walking, wearing good shoes and inspection of feet Patient is to RTC in 3-4 months. Triny Palmer [facility]02-10-2025 History of Present illness Narrative* Triny Palmer - 05/12/2024 2:25 PM EST Last saw pcp: 03/12/24 Subjective: Patient presents to clinic c/o painful toenails. They state that the nails are especially painful with shoe gear and pressure. Patient states that nails 1-5 b/l are painful. Patient admits to being diabetic. No other pedal complaints at this time. Patient states no change in medications or medical history since last visit. Objective: Patient presents to clinic ambulating in diabetic boot Vasc: DP and PT pulses are palpable bilateral. CFT is less than 5 seconds bilateral. Skin temperature is warm to cool proximal to distal bilateral. There is moderate edema or varicosities noted. Neuro: Protective sensation is absent to the foot and toes when tested with the 5.07 SWM bilateral.Vibratory sensation is absent at the hallux IPJ bilateral. The hallux is downgoing bilateral. Derm: Nails 1-5 b/l are painful, discolored-yellow, thick, crumbly, dystrophic and with subungal debris. B/l hallux nail is incurvated. No signs of infection. Skin is of normal turgor, texture and hair growth is present bilateral. There are no hyperkeratosis, ulcerations, scars, verruca or other lesions noted. Ortho: Muscle strength is 5/5 for all pedal groups tested. Ankle joint DF is decreased with the knee extended with no pain or crepitus noted. 1st MPJ ROM is decreased bilateral. Assessment: (B35.1) Onychomycosis (primary encounter diagnosis) Ingrowing toenail (M79.675) Pain in toe of left foot (M79.674) Pain in toe of right foot (E11.42) Diabetic polyneuropathy associated with type 2 diabetes mellitus (HCC) Plan: Patient was seen and evaluated. Nails 1-5 bilateral were debrided in length and thickness. Discussed ingrowing tendency of b/l hallux. Options include periodic debridement vs partial or total nail matirxectomy. Patient has elected to continue with periodic debridement. Patient was instructed on the continued importance of diabetic foot care along with proper diet andkeeping their blood sugar under control to prevent complications. Stressed the importance of avoiding barefoot walking, wearing good shoes and inspection of feet Patient is to RTC in 3-4 months. Triny Palmer DPM * Demly Beth RN - 05/12/2024 2:13 PM EST Patient presents with: Left Foot - Established Patient, Follow Up, Diabetic Foot Care Right Foot - Established Patient, Follow Up, Diabetic Foot Care Patient presents for follow up diabetic foot care. JAMEY 11/27/23 [facility] Instructions* Patient Instructions* Triny Palmer - 05/12/2024 2:25 PM EST Diabetes Foot Care Instructions When you have diabetes, proper foot care is very important. Poor foot care may lead to amputation of a foot or leg. As a person with diabetes, you are more vulnerable to foot problems, because diabetes can damage your nerves and reduce blood flow to your feet. Here are some diabetes foot care tips to follow: Wash and Dry Your Feet Daily Use mild soaps Use warm water Pat your skin dry; do not rub. Thoroughly dry your feet. After washing, use lotion on your feet to prevent cracking. Do not put lotion between your toes. Examine Your Feet Each Day Check the tops and bottoms of your feet. Have someone else look at your feet if you cannot see them. Check for dry, cracked skin. Look for blisters, cuts, scratches, or other sores. Check for redness, increased warmth, or tenderness when touching any area of your feet. Check for ingrown toenails, corns, and calluses. If you get a blister or sore from your shoes, do not pop it. Apply a bandage and wear a differentpair of shoes. Take Care of Your Toenails Cut toenails after bathing, when they are soft. Cut toenails straight across and smooth with a nail file. Avoid cutting into the corners of toes. Do not cut cuticles. If you have neuropathy (or decreased sensation in your feet) a track helper should always cut your toenails. Be Careful When Exercising Walk and exercise in comfortable shoes. Do not exercise when you have open sores on your feet. Protect Your Feet With Shoes and Socks Never go barefoot. Always protect your feet by wearing shoes or hard-soled slippers or footwear. Avoid shoes with high heels and pointed toes. Avoid shoes that expose your toes or heels (such as open-toed shoes or sandals). These types of shoes increase your risk for injury and potential infections. Try on new footwear with the type of socks you usually wear. Do not wear new shoes for more than an hour at a time. Change your socks daily. Look and feel inside your shoes before putting them on to make sure there are no foreign objects orrough areas. Avoid tight socks. Wear natural-fiber socks (cotton, wool, or a cotton-wool blend). Wear special shoes if your health care provider recommends them. Wear shoes/boots that will protect your feet from various weather conditions (cold, moisture, etc.). Make sure your shoes fit properly. If you have neuropathy (nerve damage), you may not notice that your shoes are too tight. Perform the footwear test described below. Footwear Test Use this simple test to see if your shoes fit correctly: Stand on a piece of paper. (Make sure you are standing and not sitting, because your foot changes shape when you stand.) Trace the outline of your foot. Trace the outline of your shoe. Compare the tracings: Is the shoe too narrow? Is your foot crammed into the shoe? The shoe should be at least 1/2 inch longer than your longest toe and as wide as your foot. Proper Shoe Choices The following types of shoes are best for people with diabetes Closed toes and heels Leather uppers without a seam inside At least 1/2 inch extra space at the end of your longest toe Inside of shoe should be soft with no rough areas Outer sole should be made of stiff material Shoes should be at least as wide as your feet Tips for Foot Care in Diabetes Don't wait to treat a minor foot problem if you have diabetes. Follow your health care provider's guidelines and first aid guidelines. Report foot injuries and infections to your health care provider immediately. Check water temperature with your elbow, not your foot. Do not use a heating pad on your feet. Do not cross your legs. Do not self-treat your corns, calluses, or other foot problems. Go to your health care provider or track helper to treat these conditions. documented in this encounterSelect [facility]25 NoteHNO ID: [id number] Author: DELMY BETH RN Service: ? Author Type: Registered Nurse Type: Progress Notes Filed: 05/12/2024 14:44 Note Text: Patient presents with: Left Foot - Established Patient, Follow Up, Diabetic Foot Care Right Foot - Established Patient, Follow Up, Diabetic Foot Care Patient presents for follow up diabetic foot care. JAMEY 11/27/23[facility]02-08[facility]25 NoteHNO ID: [id number] Author: NIKKY CHEN APRN.CNP Service: ? Author Type: Nurse Practitioner Type: Progress Notes Filed: 05/10/2024 14:21 Note Text: This note was created using [employer]. Subjective Андрей Nickerson is a 63 year old male. HPI couple of weeks feeling run down, tired. Clear mucus from nose and throat every morning. Denies fever, headaches. Loose stool x days. BS have been good Review of Systems Constitutional: Positive for appetite change and fatigue. HENT: Positive for congestion. Gastrointestinal: Positive for diarrhea. Objective BP 136/76 Pulse 73 Temp 36.4 ?C (97.6 ?F) Resp 20 Wt 116 kg (255 lb 11.7 oz) SpO2 99% BMI 36.69 kg/m? Physical Exam Cardiovascular: Rate and Rhythm: Normal rate. Pulmonary: Breath sounds: Normal breath sounds. Abdominal: General: Bowel sounds are normal. Skin: General: Skin is warm. Neurological: Mental Status: He is alert. Assessment and Plan ASSESSMENT/PLAN: 1. Enteritis due to Rotavirus - ICD9: 008.61, ICD10: A08.0 Anti-diarrheal,ordered If symptoms persist or get worse follow up in the ED Nikky Chen APRN.MARIA M Medical Decision Making: Problems: Low: Acute, uncomplicated illness or injury Risk: Moderate: Drug management Medical Decision Making Level: 3 - [facility] History of Present illness Narrative* Nikky Chen APRN.ENGINE SETTER - 05/10/2024 2:03 PM EST This note was created using [employer]. Subjective Андрей Nickerson is a 63 year old male. HPI couple of weeks feeling run down, tired. Clear mucus from nose and throat every morning. Deniesfever, headaches. Loose stool x days. BS have been good Review of Systems Constitutional: Positive for appetite change and fatigue. HENT: Positive for congestion. Gastrointestinal: Positive for diarrhea. Objective BP 136/76 Pulse 73 Temp 36.4 C (97.6 F) Resp 20 Wt 116 kg (255 lb 11.7 oz) SpO2 99% BMI36.69 kg/m Physical Exam Cardiovascular: Rate and Rhythm: Normal rate. Pulmonary: Breath sounds: Normal breath sounds. Abdominal: General: Bowel sounds are normal. Skin: General: Skin is warm. Neurological: Mental Status: He is alert. Assessment and Plan ASSESSMENT/PLAN: 1. Enteritis due to Rotavirus - ICD9: 008.61, ICD10: A08.0 Anti-diarrheal,ordered If symptoms persist or get worse follow up in the ED Nikky Chen APRN.CNP Medical Decision Making: Problems: Low: Acute, uncomplicated illness or injury Risk: Moderate: Drug management Medical Decision Making Level: 3 - Low documented in this encounterSelect [facility]01-06-2025 NoteHNO ID: [id number] Author: REYES PEREA, PT Service: ? Author Type: Physical Therapist Type: Progress Notes Filed: 04/07/2024 10:15 Note Text: 04/07/2024 [facility] REHABILITATION AND SPORTS THERAPY PHYSICAL THERAPY DISCONTINUANCE OF CARE Plan of Care Period: Start of Care Date: 01/15/24 Last Visit Date: 01/28/2024 Therapy Program: The following is a summary of the interventions provided for this episode of care; Therapeutic exercise and Self-shelter management Assessment: Based on most recent visit, patient was progressing slower than expected toward functional goals based on appointment compliance. Unable to formally assess goal achievement, as patient has not returned to therapy or scheduled additional follow-up appointments. Reason for Discontinuation of Care: Patient has not returned to therapy or scheduled additional follow-up appointments. Reyes Perea, [facility]12-11-2024 NoteHNO ID: [id number] Author: HANDY HENDERSON, Service: ? Author Type: Physician Type: Progress Notes Filed: 03/12/2024 21:16 Note Text: CC: Андрей Nickerson is a 63 year old male who presents to the office for follow up HPI: Back pain, low back, intermittent, hx of injury/fall. Use of flexeril as needed, taking as prescribed. Also working with PHYSICAL THERAPY and stretches. Knows need for weight loss and more exercise as well. HTN, well controlled, taking medications as prescribed CKD, hx of renal transplant, continues to follow up with his [employer]. HPL, taking statin therapy with lipitor 40 mg a day Cholesterol, Total Date Value Ref Range Status 12/10/2023 79 <200 mg/dL Final Comment: <200 mg/dL, Desirable 200-239 mg/dL, Borderline high >239 mg/dL, High Reference: 1. National Cholesterol Education Program ATP III Guideline At-A-Glance Quick Desk Reference: National Heart, Lung, and Blood [place]. National Institutes of Health. 2001: [facility] Publication No. 01-3305. HDL Cholesterol Date Value Ref Range Status 12/10/2023 41 >39 mg/dL Final Comment: 40-59 mg/dL, Acceptable >59 mg/dL, High: Negative risk factor for coronary heart disease <40 mg/dL, Low: Positive risk factor for coronary heart disease Reference: 1. National Cholesterol Education Program ATP III Guideline At-A-Glance Quick Desk Reference: National Heart, Lung, and Blood [place]. National Institutes of Health. 2001: [facility] Publication No. 01-3305. LDL Cholesterol Date Value Ref Range Status 11/20/2022 28 <100 mg/dL Final Comment: <100 mg/dL, Optimal 100-129 mg/dL, Near optimal/above optimal 130-159 mg/dL, Borderline high 160-189 mg/dL, High >189 mg/dL, Very high Secondary prevention optimal LDL Cholesterol levels are recommended to be < 70 mg/dL Triglyceride Date Value Ref Range Status 12/10/2023 68 <150 mg/dL Final Comment: <150 mg/dL, Normal 150-199 mg/dL, Borderline high 200-499 mg/dL, High >499 mg/dL, Very high Reference: 1. National Cholesterol Education Program ATP III Guideline At-A-Glance Quick Desk Reference: National Heart, Lung, and Blood [place]. National Institutes of Health. 2001: [facility] Publication No. 01-3305. Glucose (mg/dL) Date Value 02/21/2024 155 01/26/2021 141 Potassium (mmol/L) Date Value 02/21/2024 4.6 01/26/2021 3.5 Sodium (mmol/L) Date Value 02/21/2024 137 01/26/2021 140 Chloride (mmol/L) Date Value 02/21/2024 107 01/26/2021 97 CO2 (mmol/L) Date Value 02/21/2024 20 01/26/2021 24 Creatinine (mg/dL) Date Value 02/21/2024 2.56 01/26/2021 11.85 BUN (mg/dL) Date Value 02/21/2024 21 01/26/2021 54 Anion Gap (mmol/L) Date Value 02/21/2024 10 01/26/2021 19 Calcium (mg/dL) Date Value 01/26/2021 9.8 Calcium, Total (mg/dL) Date Value 02/21/2024 9.4 Protein, Total (g/dL) Date Value 04/06/2023 5.7 01/26/2021 6.4 Albumin (g/dL) Date Value 12/10/2023 3.7 05/11/2021 3.8 01/26/2021 3.6 Bilirubin, Total (mg/dL) Date Value 12/10/2023 0.4 01/26/2021 0.3 Alkaline Phosphatase (U/L) Date Value 04/06/2023 199 01/26/2021 101 AST (U/L) Date Value 12/10/2023 21 01/26/2021 16 ALT (U/L) Date Value 12/10/2023 28 01/26/2021 26 Hemoglobin (g/dL) Date Value 02/21/2024 11.7 01/26/2021 17.8 Hematocrit (%) Date Value 02/21/2024 39.5 01/26/2021 56.0 WBC (k/uL) Date Value 02/21/2024 5.22 01/26/2021 12.61 PAST MEDICAL HISTORY Diagnosis Date Arrhythmia CKD (chronic kidney disease) stage 3, GFR 30-59 ml/min ([facility]) [facility] Coronary artery disease 2006 s/p PCI. 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 Leon [facility] Heart attack ([facility]) Hyperlipidemia Hypertension Lacunar stroke ([facility]) Macular edema [facility] MVP (mitral valve prolapse) Pancreatitis Proliferative diabetic retinopathy(362.02) [facility] Snoring Stroke ([facility]) 2017 Tobacco abuse PAST SURGICAL HISTORY Procedure Laterality Date AVASTIN (BEVACIZUMAB) 1.25MG INTRAVITREAL INJECTION OS (LEFT EYE) x5 (04/16/2015) Dr. Connelly CANALOPLASTY W/O STENT Right 01/12/2022 Canaloplasty 360 degrees / Trabeculotomy 180 degrees CARDIAC CATH 2006, 2009, 2012 mid / distal LAD stents DENISHA COLONOSCOPY FLX DX W/COLLJ SPEC WHEN PFRMD 10/08/2018 Colonoscopy PAST SURGICAL HISTORY OF Bilateral Keratectomy PAST SURGICAL HISTORY OF N/A 03/19/2020 Laparoscopic peritoneal dialysis catheter placement with omentopexy- Shamir Tsai MD PAST SURGICAL HISTORY OF 03/2020 PD Catheter PAST SURGICAL HISTORY OF Left 02/18/2021 Canaloplasty / Trabeculotomy TRANSPLANTATION OF KIDNEY Right 03/27/2021 XCAPSL CTRC RMVL INSJ IO LENS PROSTH W/O ECP Left 03/10/2015 Cataract Extraction with PC IOL XCAPSL CTRC RMVL INSJ IO LENS PROSTH W/O ECP Right 04/01/2015 Cataract Extraction with PC IOL Current (more content not included)...[facility]10-28-2024 History of Present illness Narrative* Reyes Perea, PT - 01/28/2024 5:06 PM EDT Program_ID:[id number] Access Code: [email or web address] URL: [email or web address] Date: 01-28-2024 Prepared By: Reyes Perea Program Notes Exercises - Hooklying Single Knee to Chest Stretch - 2 x daily - 7 x weekly - 3 sets - reps - Supine Double Knee to Chest - 2 x daily - 7 x weekly - 3 sets - reps - Supine Lower Trunk Rotation - 2 x daily - 7 x weekly - 2 sets - 10 reps - Seated Repeated Flexion - 2 x daily - 7 x weekly - 2 sets - 10-15 reps - Supine Transversus Abdominis Bracing - Hands on Stomach - 2 x daily - 7 x weekly - 2-3 sets - 10 reps - Supine Straight Leg Raises - 2 x daily - 7 x weekly - 2 sets - 8-10 reps * Reyes Perea, PT - 01/28/2024 4:33 PM EDT Episode Visit Count: 2 Therapist That Will Accept/Oversee The Plan Of Care: Reyes Perea Start of Care Date: 01/15/24 Onset Date: 11/30/23 Plan of Care Certification Date: 01/15/24 Next Certification Due Date: 02/22/24 Patient Identified by Name and Date of : Yes REHABILITATION AND SPORTS THERAPY PHYSICAL THERAPY TREATMENT NOTE ASSESSMENT: Андрей Nickerson tolerated the session with no issues. He demonstrated good form with beginning TA Bracing.. The patient will continue to benefit from ongoing skilled physical therapy to progress toward set goals. PLAN FOR NEXT VISIT: TrA Brace with Single BKFO. SUBJECTIVE: Reports after exercising, the back is tightened up after a couple hours per patient. Denies sxs coming in today. Pain: Pain Pain Level: 0 Pain Location: Low Back/Lumbar Spine- Midline OBJECTIVE MEASURES WITH LEVEL OF FUNCTION: Increased Difficulty on R SLR compared Left. TREATMENT: Therapeutic Exercise: 1: Sci-Fit: 5 Min. Direct 1:1 and subjective taken. 2: DKC: 2x30. 3: B SKC: 2x30. 4: LTR: 2x10, 5-sec hold each way. 5: *TrA Bracing in Hooklyinx10, 5-sec holds. 6: *SLR: 2x8 each. Skilled Intervention: Patient was educated in proper exercise technique and purpose for exercises. Reviewed and educated patient on additions/changes for home exercise program as above (*). Skilled judgment was used in selection of appropriate interventions. Provided written instruction for home exercise program to facilitate proper performance and compliance. Correct performance of therapeutic exercises was facilitated with verbal cuing. Billing Therapeutic Exercise Treatment Minutes: 39 Skilled Treatment Time Minutes (timed and untimed codes): 39 Total Session Time (minutes): 39 Session Start Time : 1631 Session Stop Time : 1710 Reyes Perea PT documented in this encounterSelect Medical [facility]10-28-2024 NoteHNO ID: [id number] Author: REYES PEREA PT Service: ? Author Type: Physical Therapist Type: Progress Notes Filed: 01/28/2024 17:32 Note Text: Episode Visit Count: 2 Therapist That Will Accept/Oversee The Plan Of Care: Reyes Perea Start of Care Date: 01/15/24 Onset Date: 11/30/23 Plan of Care Certification Date: 01/15/24 Next Certification Due Date: 02/22/24 Patient Identified by Name and Date of : Yes REHABILITATION AND SPORTS THERAPY PHYSICAL THERAPY TREATMENT NOTE ASSESSMENT: Андрей Nickerson tolerated the session with no issues. He demonstrated good form with beginning TA Bracing.. The patient will continue to benefit from ongoing skilled physical therapy to progress toward set goals. PLAN FOR NEXT VISIT: TrA Brace with Single BKFO. SUBJECTIVE: Reports after exercising, the back is tightened up after a couple hours per patient. Denies sxs coming in today. Pain: Pain Pain Level: 0 Pain Location: Low Back/Lumbar Spine- Midline OBJECTIVE MEASURES WITH LEVEL OF FUNCTION: Increased Difficulty on R SLR compared Left. TREATMENT: Therapeutic Exercise: 1: Sci-Fit: 5 Min. Direct 1:1 and subjective taken. 2: DKC: 2x30. 3: B SKC: 2x30. 4: LTR: 2x10, 5-sec hold each way. 5: *TrA Bracing in Hooklyinx10, 5-sec holds. 6: *SLR: 2x8 each. Skilled Intervention: Patient was educated in proper exercise technique and purpose for exercises. Reviewed and educated patient on additions/changes for home exercise program as above (*). Skilled judgment was used in selection of appropriate interventions. Provided written instruction for home exercise program to facilitate proper performance and compliance. Correct performance of therapeutic exercises was facilitated with verbal cuing. Billing Therapeutic Exercise Treatment Minutes: 39 Skilled Treatment Time Minutes (timed and untimed codes): 39 Total Session Time (minutes): 39 Session Start Time : 1631 Session Stop Time : 1710 Reyes Perea [facility]10-17-2024 Telephone encounter Note * Telephone Encounter - Radha Jha - 01/17/2024 11:43 AM EDT Patient has been scheduled and seen, cancelled order. [facility]10-[facility] Miscellaneous Notes* Telephone Encounter - Radha Jha - 01/17/2024 11:43 AM EDT Patient has been scheduled and seen, cancelled order. * Telephone Encounter - Handy Henderson DO - 01/17/2024 9:33 AM EDT Order placed for PHYSICAL THERAPY Handy Henderson DO * Telephone Encounter - Christine Killian LPN - 01/15/2024 3:28 PM EDT Please schedule Pain management Appointment. * Telephone Encounter - Eilsa Andre PA-C - 01/15/2024 2:45 PM EDT Ordered Elisa Andre PA-C * Telephone Encounter - Magdalena Cabezas LPN - 01/15/2024 11:24 AM EDT Phoned patient went over results, notes from Dr Henderson with understanding. He starts PT later today. Patient asking for Pain Management consult and will go from there. Pending consult, needs diagnosis. * Telephone Encounter - Handy Henderson DO - 01/15/2024 10:40 AM EDT Please inform patient that his lumbar spine xray shows Mild discogenic endplate changes with spurring at L3-4, L4-5 and L5-S1. No disc space narrowing. Mild lower lumbar facet arthrosis without pars defects. Sacroiliac joints are unremarkable. Consider PHYSICAL THERAPY and pain management for spine injections to help pain in the future Handy Henderson DO documented in this encounterSelect Medical [facility]10-17-2024 Telephone encounter Note * Telephone Encounter - Handy Henderson DO - 01/17/2024 9:33 AM EDT Order placed for PHYSICAL THERAPY Handy Henderson DO [facility]10-15-2024 Telephone encounter Note* Telephone Encounter - Christine Killian LPN - 01/15/2024 3:28 PM EDT Please schedule Pain management Appointment. [facility]10-15-[facility] Telephone encounter Note* Telephone Encounter - Elisa Andre PA-C - 01/15/2024 2:45 PM EDT Ordered Elisa Andre PA-C [facility]10-[facility] History of Present illness Narrative* Reyes Perae PT - 01/15/2024 2:11 PM EDT Program_ID:[id number] Access Code: [email or web address] URL: [email or web address] Date: 01-15-2024 Prepared By: Reyes Perea Program Notes Exercises - Hooklying Single Knee to Chest Stretch - 2 x daily - 7 x weekly - 3 sets - reps - Supine Double Knee to Chest - 2 x daily - 7 x weekly - 3 sets - reps - Supine Lower Trunk Rotation - 2 x daily - 7 x weekly - 2 sets - 10 reps - Seated Repeated Flexion - 2 x daily - 7 x weekly - 2 sets - 10-15 reps * Reyes Perea PT - 01/15/2024 1:22 PM EDT Images from the original note were not included. Episode Visit Count: 1 Therapist That Will Accept/Oversee The Plan Of Care: Reyes Perea Start of Care Date: 01/15/24 Onset Date: 11/30/23 Plan of Care Certification Date: 01/15/24 Next Certification Due Date: 02/22/24 Patient Identified by Name and Date of : Yes REHABILITATION AND SPORTS THERAPY PHYSICAL THERAPY EVALUATION PLAN OF CARE: Assessment: Андрей Nickerson presents with chief complaint of midline low back pain and stiffness that interferes with standing, walking, bending, rising from a chair, physical activities, lifting . The patient presents with impairments in ADL's, flexibility, gait, independence in exercise, overall function, posture, range of motion, soft tissue healing, strength, symptom management, andtissue tenderness. PROMIS (Patient-Reported Outcomes Measurement Information System) scores were reviewed and identified as a rehabilitation concern. Prognosis for therapy is Good due to: current objective clinical presentation, acuteness of condition, within-session changes .The patient will benefit from skilled therapy services to meet the goals established for this plan of care as noted below. Classification Pain Mechanism Classification: Nociceptive Low Back Pain Classification: Movement Control Goals for Episode of Care: established 01/15/24 Patient reported outcome of physical function will increase T-score by a minimum 5 points. Zalma in home exercise program. Patient will decrease pain rating by 2 points to meet minimal clinical important difference for numeric pain rating scale. Increase ROM of lumbar spine to WFL for all motions. Increase strength of LB stabilizers and postural muscles to WFL for increased rising and walking tolerance. Stand / Walk without pain/symptoms to allow for return to recreational walking. Patient Goals: Alleviate Pain and Improve Function. Planned Interventions, Frequency, and Duration: Current Frequency: 1x/week Duration: 4 weeks Total Number of Visits Planned: 4 Planned Treatment Interventions: Therapeutic exercise (22510), Neuromuscular re- education (40552), Manual therapy (95799), Therapeutic activities (99186), Self- shelter management (15183), Gait Training (85964), Body Mechanics Training, Patient/Family/Caregiver Education PLAN FOR NEXT VISIT: Review, correct and progress HEP to tolerance. Low Back Stability, Begin NS & Core Strengthening, Hip Mobility as tolerated. Patient demonstrates good understanding of plan of care and treatment. The above goals and plan of care were discussed and agreed upon by patient/family. SUBJECTIVE: Symptoms came on with going up 1 step from garage -> house, tripped and regained balance. Reports low back pain gave zinger and flared following that trip. Has come & gone for months now. Has a consult for pain mgmt. No pain sitting or lying down. Walking & standing he feels more unsteady. Feels less stable in the low back/middle with erect/upright positions.Laying on back during sleeping is good for him, painful and stiff in other positions. Radiographs show degenerative changes. Denies N/T and paresthesias down the B LE. Patient Goals: Alleviate Pain and Improve Function. 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 Employment: Retired Recreation / Current Exercise: Likes to walk. Intake Information: Prescription present Previous Treatment: Pain meds Falls Interview: No positive findings with falls interview Red Flags Vertebral Fracture Clinical Reasoning: No identified risk factors Abdominal Aortic Aneurysm Red Flags: Age >60 Abdominal Aortic Aneurysm Clinical Reasoning: Proceed with caution Cancer Red Flags: Age >50 or <20 Cancer Clinical Reasoning: Proceed with caution Infection Clinical Reasoning: No identified risk factors. Cauda Equina Syndrome Clinical Reasoning: No identified risk factors. Red Flags - Cervical Cancer Red Flags: Age >50 or <20 Cancer Clinical Reasoning: Proceed with caution Infection Clinical Reasoning: No identified risk factors. Pain: Pain Pain Location: Low Back/Lumbar Spine- Midline PROMIS Scales 01/15/2024 Higher is Better Phys Func - Score 35 (moderate dysfunction) Phys Func - Percentile 7 Self-Eff Symptom - Score 41 (Average) Self-Eff Symptom - Percentile 18 T-scores: mean of general population = 50. 5 points is clinically meaningfully difference Percentiles provide an indication of how the patient's score ranks in relation to the general population. Higher percentile rankings indicate better function/quality of life. 50th percentile is the average of the general population and indicates half of respondents had a worse score. OBJECTIVE MEASURES WITH LEVEL OF FUNCTION: Posture / Alignment Posture: Forward head, Increased lumbar lordosis Spine Observations R Lumbar Spine Palpation Tenderness: Paraspinals, Quadratus Lumborum, Spinous process L Lumbar Spine Palpation Tenderness: Paraspinals, Quadratus Lumborum, Spinous process Sensation - Lumbar Sensation: Grossly Intact Lumbar Spine AROM Lumbar Flexion: Minimal limitation, Decreased pain Lumbar Extension: Minimal limitation, Increased pain Lumbar R Side Lambert: Moderate limitation Lumbar L Side Lambert: Moderate limitation Lumbar R Side-Bend: Minimal limitation Lumbar L Side-Bend: Minimal limitation Lumbar R Rotation: Minimal limitation Lumbar L Rotation: Minimal limitation Spine Joint Mobility Spine Joint Mobility : Lumbar/Thoracic Joint Mobility Comment: Decreased B Hip IR compared to WNL. Increased deficit on R Leg. Joint Mobility - L3: Hypomobile Joint Mobility - L4: Hypomobile Joint Mobility - L5: Hypomobile LE Strength Trunk Strength: Poor Low Back and Core Stability/Strength. R LE Strength: Grossly 4+/5 L LE Strength: Grossly 4+/5 Special Tests - Hip and Spine Hip and Spine Special Tests: SLR Test, Slump Test SLR Test: Right Negative, Left Negative Slump Test: Right Negative, Left Negative Special Test Comments: 90/90 B LE Eccentric Lowering; poor control and provocative. Gait Gait Observation: Slowed Katelyn and Antalgic in nature. No AD. Education: Education Learning Preferences: Demonstration, Explanation Barriers: None Learning/educational needs: Health promotion, Home exercise program, Plan of Care Education Provided: Yes, see treatment interventions for education provided Education Provided To: Patient Education Mode/Type: Demonstration, Explanation/Discussion, Literature/Printed Materials Response to Education/Teach Back: States/Identifies TREATMENT: PT Treatment Interventions: Therapeutic Exercise, Manual Therapy, Self-Retirement Management Evaluation Therapeutic Exercise: 1: *B SKC: 1x30. 2: *DKC: 1x30. 3: *Repeated FLexion: 1x10. 4: *LTR: x10, 5-sec hold each way. 5: Trialed Bridges: Unable to complete due to weakness and pain. 6: HEP discussed in detail with how to safely and properly perform each therapeutic exercise. Handout provided/ Skilled Intervention: Patient was educated in proper exercise technique and purpose for exercises. Reviewed and educated patient on additions/changes for home exercise program as above (*). Skilled judgment was used in selection of appropriate interventions. Provided written instruction for home exercise program to facilitate proper performance and compliance. Correct performance of therapeutic exercises was facilitated with verbal, visual, and tactile cuing. Self-Retirement Management: 1: *Education about lumbar anatomy related to diagnosis; discussed low back stability overal, educated with photos. Discussed regional interdependence of joints above and below, for example If your hips don't move it can cause low back pain because it is trying to borrow mobility from the low back vice versa with the low back stabilizers being weak, it is trying to borrow stability from mobile joints (thoracic and hips). Discussed avoiding exercises or activities that cause INC pain. 2: *discussed log roll technique for getting out of bed. 3: *General education and explanation of spinal radiographs. Skilled Intervention: Skilled judgment in the selection of proper modification for activity of daily living/home management based on clinical presentation, deficits, and needs. Billing * Evaluation Low Complexity: 1 Unit Therapeutic Exercise Treatment Minutes: 15 Self-Care/Home Management Treatment Minutes: 10 Skilled Treatment Time Minutes (timed and untimed codes): 45 Total Session Time (minutes): 45 Session Start Time : 1330 Session Stop Time : 1415 Reyes Perea PT [facility] NoteHNO ID: [id number] Author: REYES PEREA PT Service: ? Author Type: Physical Therapist Type: Progress Notes Filed: 01/16/2024 06:43 Note Text: Episode Visit Count: 1 Therapist That Will Accept/Oversee The Plan Of Care: Reyes Perea Start of Care Date: 01/15/24 Onset Date: 11/30/23 Plan of Care Certification Date: 01/15/24 Next Certification Due Date: 02/22/24 Patient Identified by Name and Date of : Yes REHABILITATION AND SPORTS THERAPY PHYSICAL THERAPY EVALUATION PLAN OF CARE: Assessment: Андрей Nickerson presents with chief complaint of midline low back pain and stiffness that interferes with standing, walking, bending, rising from a chair, physical activities, lifting . The patient presents with impairments in ADL's, flexibility, gait, independence in exercise, overall function, posture, range of motion, soft tissue healing, strength, symptom management, and tissue tenderness. PROMIS? (Patient-Reported Outcomes Measurement Information System) scores were reviewed and identified as a rehabilitation concern. Prognosis for therapy is Good due to: current objective clinical presentation, acuteness of condition, within-session changes .The patient will benefit from skilled therapy services to meet the goals established for this plan of care as noted below. Classification Pain Mechanism Classification: Nociceptive Low Back Pain Classification: Movement Control Goals for Episode of Care: established 01/15/24 Patient reported outcome of physical function will increase T-score by a minimum 5 points. Zalma in home exercise program. Patient will decrease pain rating by 2 points to meet minimal clinical important difference for numeric pain rating scale. Increase ROM of lumbar spine to WFL for all motions. Increase strength of LB stabilizers and postural muscles to WFL for increased rising and walking tolerance. Stand / Walk without pain/symptoms to allow for return to recreational walking. Patient Goals: Alleviate Pain and Improve Function. Planned Interventions, Frequency, and Duration: Current Frequency: 1x/week Duration: 4 weeks Total Number of Visits Planned: 4 Planned Treatment Interventions: Therapeutic exercise (45739), Neuromuscular re-education (16374), Manual therapy (51238), Therapeutic activities (19699), Self-shelter management (77807), Gait Training (52941), Body Mechanics Training, Patient/Family/Caregiver Education PLAN FOR NEXT VISIT: Review, correct and progress HEP to tolerance. Low Back Stability, Begin NS AND Core Strengthening, Hip Mobility as tolerated. Patient demonstrates good understanding of plan of care and treatment. The above goals and plan of care were discussed and agreed upon by patient/family. SUBJECTIVE: Symptoms came on with going up 1 step from garage -> house, tripped and regained balance. Reports low back pain gave zinger and flared following that trip. Has come AND gone for months now. Has a consult for pain mgmt. No pain sitting or lying down. Walking AND standing he feels more unsteady. Feels less stable in the low back/middle with erect/upright positions.Laying on back during sleeping is good for him, painful and stiff in other positions. Radiographs show degenerative changes. Denies N/T and paresthesias down the B LE. Patient Goals: Alleviate Pain and Improve Function. 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 Employment: Retired Recreation / Current Exercise: Likes to walk. Intake Information: Prescription present Previous Treatment: Pain meds Falls Interview: No positive findings with falls interview Red Flags Vertebral Fracture Clinical Reasoning: No identified risk factors Abdominal Aortic Aneurysm Red Flags: Age >60 Abdominal Aortic Aneurysm Clinical Reasoning: Proceed with caution Cancer Red Flags: Age >50 or <20 Cancer Clinical Reasoning: Proceed with caution Infection Clinical Reasoning: No identified risk factors. Cauda Equina Syndrome Clinical Reasoning: No identified risk factors. Red Flags - Cervical Cancer Red Flags: Age >50 or <20 Cancer Clinical Reasoning: Proceed with caution Infection Clinical Reasoning: No identified risk factors. Pain: Pain Pain Location: Low Back/Lumbar Spine- Midline PROMIS Scales 01/15/2024 Higher is Better Phys Func - Score 35 (moderate dysfunction) Phys Func - Percentile 7 Self-Eff Symptom - Score 41 (Average) Self-Eff Symptom - Percentile 18 T-scores: mean of general population = 50. 5 points is clinically meaningfully difference Percentiles provide an indication of how the patient's score ranks in relation to the general population. (more content not included)...[facility]10-15-2024 Telephone encounter Note* Telephone Encounter - Magdalena Cabezas LPN - 01/15/2024 11:24 AM EDT Phoned patient went over results, notes from Dr Henderson with understanding. He starts PT later today. Patient asking for Pain Management consult and will go from there. Pending consult, needs diagnosis. [facility] Telephone encounter Note* Telephone Encounter - Handy Henderson DO - 01/15/2024 10:40 AM EDT Please inform patient that his lumbar spine xray shows Mild discogenic endplate changes with spurring at L3-4, L4-5 and L5-S1. No disc space narrowing. Mild lower lumbar facet arthrosis without pars defects. Sacroiliac joints are unremarkable. Consider PHYSICAL THERAPY and pain management for spine injections to help pain in the future Handy Henderson DO [facility]09-16-[facility] Telephone encounter Note* Telephone Encounter - Juanita Núñez MA - 12/17/2023 12:38 PM EDT Pt notified. Will call back to schedule PT. Juanita Núñez MA [facility]09-16-[facility]24 Miscellaneous Notes* Telephone Encounter - Juanita Núñez MA - 12/17/2023 12:38 PM EDT Pt notified. Will call back to schedule PT. Juanita Núñez MA * Telephone Encounter - Handy Henderson DO - 12/17/2023 12:04 PM EDT He needs to work on CORE strengthening exercises and weight loss. Can consider PHYSICAL THERAPY to help with the pain as well Handy Henderson DO * Telephone Encounter - Sakina Webb RN - 12/13/2023 11:56 AM EDT Patient calling and states that he received result notes that he has some moderate generalized degenerative changes in his thoracic mid spine. Patient asking if there is anything he can do to help with the chronic back pain? Please review and advise, Sakina Webb RN documented in this encounter[facility] Telephone encounter Note * Telephone Encounter - Handy Henderson DO - 12/17/2023 12:04 PM EDT He needs to work on CORE strengthening exercises and weight loss. Can consider PHYSICAL THERAPY to help with the pain as well Handy Henderson DO [facility] Telephone encounter Note* Telephone Encounter - Sakina Webb RN - 12/13/2023 11:56 AM EDT Patient calling and states that he received result notes that he has some moderate generalized degenerative changes in his thoracic mid spine. Patient asking if there is anything he can do to help with the chronic back pain? Please review and advise, Sakina Webb RN [facility]09-10-[facility] History of Present illness Narrative* Munir Carmona RT(R) - 12/11/2023 4:10 PM EDT Radiology Service Progress Note PATIENT NAME: Андрей Nickerson DATE OF SERVICE: December 11, 2023 TIME: 4:17 PM PATIENT IDENTITY VERIFICATION COMPLETED USING TWO (2) IDENTIFIERS: Name and Date of confirmedby patient verbally. FALL SCREENING: Has the patient had 2 falls in the last year or 1 fall with injury or currently using an Ambulatory Assistive Device (Walker, Cane, Wheelchair, Crutches, etc.)? No PATIENT GENDER DATA: Male PATIENT RELEVANT IMPLANT DATA REVIEWED: Yes PATIENT PRESENTS WITH AN IMPLANTABLE OR ATTACHED BANDER OPERATOR: Yes [facility] RAD[facility]Y DEPARTMENT: General X-ray: Exam(s) Completed: Spine X-Ray(s): Thoracic and Lumbar AP / LAT / L5-S1 PERIPHERAL IV DATA: Not applicable SIGNED BY: VIRGIE Chan) December 11, 2023 4:17 PM documented in this encounterSelect [facility]-10-2024 NoteHNO ID: [id number] Author: MUNIR CARMONA RT(R) Service: Radiology Author Type: Technologist Type: Progress Notes Filed: 12/11/2023 16:44 Note Text: Radiology Service Progress Note PATIENT NAME: Андрей Nickerson DATE OF SERVICE: December 11, 2023 TIME: 4:17 PM PATIENT IDENTITY VERIFICATION COMPLETED USING TWO (2) IDENTIFIERS: Name and Date of confirmed by patient verbally. FALL SCREENING: Has the patient had 2 falls in the last year or 1 fall with injury or currently using an Ambulatory Assistive Device (Walker, Cane, Wheelchair, Crutches, etc.)? No PATIENT GENDER DATA: Male PATIENT RELEVANT IMPLANT DATA REVIEWED: Yes PATIENT PRESENTS WITH AN IMPLANTABLE OR ATTACHED BANDER OPERATOR: Yes [employer] RADIOLOGY DEPARTMENT: General X-ray: Exam(s) Completed: Spine X-Ray(s): Thoracic and Lumbar AP / LAT / L5-S1 PERIPHERAL IV DATA: Not applicable SIGNED BY: RT Rocio(R) December 11, 2023 4:17 [facility]09-10-2024 Instructions* Patient Instructions* Handy Henderson DO - 12/11/2023 3:49 PM EDT Take the Flexeril muscle relaxant at bedtime as needed, or during the day if you are going to be home. This can make you sleepy. Take Tylenol 500 mg 3 times a day as needed for pain. Take the Tramadol 50 mg every 6-8 hours as needed for severe pain. documented in this encounter[facility]-2024 NoteHNO ID: [id number] Author: HANDY HENDERSON DO Service: ? Author Type: Physician Type: Progress Notes Filed: 12/11/2023 16:47 Note Text: CC: Андрей Nickerson is a 63 year old male who presents to the office for back pain. HPI: Back pain, symptoms started when she lost balance when he was going up his step from garage into the house. Was able to catch himself and after this then his back was flared up. Coming and going. Worse with walking and worse when laying on left side. Middle of the lower back. Coming and going for months since this trip/falls. Hasn't had any obvious new muscle weakness or numbness/tingling in legs or bowel or bladder changes. PAST MEDICAL HISTORY No date: Arrhythmia No date: CKD (chronic kidney disease) stage 3, GFR 30-59 ml/min ([facility]) Comment: [facility] 2006: Coronary artery disease Comment: s/p PCI. 3 stents total 1971: Diabetes type 1, uncontrolled Comment: nephropathy, retinopathy, dx age 10, Dr[facility] Leon [facility] No date: Heart attack (HCC) No date: Hyperlipidemia No date: Hypertension No date: Lacunar stroke ([facility]) No date: Macular edema Comment: [facility] No date: MVP (mitral valve prolapse) No date: Pancreatitis No date: Proliferative diabetic retinopathy(362.02) Comment: [facility] No date: Snoring 2017: Stroke (HCC) No date: Tobacco abuse PAST SURGICAL HISTORY No date: AVASTIN (BEVACIZUMAB) 1.25MG INTRAVITREAL INJECTION OS (LEFT EYE) Comment: x5 (04/16/2015) Dr. Connelly 01/12/2022: CANALOPLASTY W/O STENT; Right Comment: Canaloplasty 360 degrees / Trabeculotomy 180 degrees 2005, 2008, 2011: CARDIAC CATH Comment: mid / distal LAD stents DENISHA 10/08/2018: COLONOSCOPY FLX DX W/COLLJ SPEC WHEN PFRMD Comment: Colonoscopy No date: PAST SURGICAL HISTORY OF; Bilateral Comment: Keratectomy 03/19/2020: PAST SURGICAL HISTORY OF; N/A Comment: Laparoscopic peritoneal dialysis catheter placement with omentopexy- Shamir Tsai MD 03/2020: PAST SURGICAL HISTORY OF Comment: PD Catheter 02/18/2021: PAST SURGICAL HISTORY OF; Left Comment: Canaloplasty / Trabeculotomy 03/27/2021: TRANSPLANTATION OF KIDNEY; Right 03/10/2015: XCAPSL CTRC RMVL INSJ IO LENS PROSTH W/O ECP; Left Comment: Cataract Extraction with PC IOL 04/01/2015: XCAPSL CTRC RMVL INSJ IO LENS PROSTH W/O ECP; Right Comment: Cataract Extraction with PC IOL Current Outpatient Medications Medication Sig cyclobenzaprine (FLEXERIL) 10 mg tablet Take 1 tablet by mouth three times a day as needed for muscle spasm or pain. traMADol (ULTRAM) 50 mg tablet Take 1 tablet by mouth every 8 hours as needed for pain for up to 7 days. timolol maleate (TIMOPTIC) 0.5 % ophthalmic solution Use 1 Drop in both eyes two times a day. Use 1 drop in both eyes at 8 am and 6 pm furosemide (LASIX) 20 mg tablet Take 1 tablet by mouth every afternoon. carvedilol (COREG) 12.5 mg tablet Take 1 tablet by mouth once daily. atorvastatin (LIPITOR) 40 mg tablet Take 1 tablet by mouth once daily. famotidine (PEPCID) 20 mg tablet Take 1 tablet by mouth two times a day. amLODIPine (NORVASC) 2.5 mg tablet fluticasone (FLONASE) 50 mcg/actuation nasal spray Use 2 Sprays in each nostril once daily. Rinse mouth after use. sirolimus (RAPAMUNE) 0.5 mg tablet Take 1 mg by mouth once daily. propylene glycoL (SYSTANE COMPLETE) 0.6 % drop Use 1 Drop in both eyes four times daily. docusate sodium (COLACE) 100 mg capsule Take 100 mg by mouth twice daily. mycophenolate mofetil (CELLCEPT) 250 mg capsule Take by mouth twice daily. 4 caps q 12 hours sulfamethoxazole-trimethoprim (BACTRIM DS,SEPTRA DS) 800-160 mg per tablet Take by mouth twice daily. clopidogrel (PLAVIX) 75 mg tablet Take 1 tablet by mouth once daily. Gum Mzwynm-Xdjxgb-OUij-Alcohol (MASTISOL ADHESIVE) dpet 1 application as directed. tamsulosin (FLOMAX) 0.4 mg TAKE 1 CAPSULE BY MOUTH EVERYDAY AT BEDTIME blood sugar diagnostic (ONETOUCH ULTRA TEST) test strip Checking blood sugars 3-4 times daily Insulin [place], Disposable, (BD ULTRAFINE III MINI PEN) 31 gauge x 3/16 use as directed up to four times daily, E11.9 Blood-Glucose Sensor (DEXCOM G6 SENSOR) darleen Change Sensor every 14 days Patient reading blood sugar 12 times daily Blood-Glucose Meter,Continuous (DEXCOM G4 B OPERATOR-SHARE KIT) misc One [place] device, patient checks blood sugars 12 times daily Blood-Glucose Transmitter (DEXCOM G6 TRANSMITTER) darleen 1 Each as directed. Blood-Glucose Meter,Continuous (DEXCOM G6 B OPERATOR) misc 1 Each as directed. insulin detemir U-100 (LEVEMIR FLEXTOUCH U-100 INSULN) 100 unit/mL (3 mL) inpn injection INJECT 36 UNITS SUBCUTANEOUSLY DAILY AT BEDTIME. Lancets (MICROLET LANCET) lancets Test blood sugar(s) 3-4 times daily. Dx: 250.00 . Insulin: Yes Blood-Glucose Meter (ONETOUCH ULTRA2) monitoring kit 1 Each as needed. One Touch Meter Kit, Dx: E10.3219 Type1 dm with mild nonproliferative diabetic (more content not included)...[facility]09-10-2024 History of Present illness Narrative* Handy Henderson, - 12/11/2023 3:33 PM EDT CC: Андрей Nickerson is a 63 year old male who presents to the office for back pain. HPI: Back pain, symptoms started when she lost balance when he was going up his step from garage into the house. Was able to catch himself and after this then his back was flared up. Coming and going. Worse with walking and worse when laying on left side. Middle of the lower back. Coming and going for months since this trip/falls. Hasn't had any obvious new muscle weakness or numbness/tingling in legsor bowel or bladder changes. PAST MEDICAL HISTORY No date: Arrhythmia No date: CKD (chronic kidney disease) stage 3, GFR 30-59 ml/min ([facility]) Comment: [facility] 2005: Coronary artery disease Comment: s/p PCI. 3 stents total 1971: Diabetes type 1, uncontrolled Comment: nephropathy, retinopathy, dx age 10, [facility] Leon [facility] No date: Heart attack ([facility]) No date: Hyperlipidemia No date: Hypertension No date: Lacunar stroke ([facility]) No date: Macular edema Comment: [facility] No date: MVP (mitral valve prolapse) No date: Pancreatitis No date: Proliferative diabetic retinopathy(362.02) Comment: [facility] No date: Snoring 2017: Stroke ([facility]) No date: Tobacco abuse PAST SURGICAL HISTORY No date: AVASTIN (BEVACIZUMAB) 1.25MG INTRAVITREAL INJECTION OS (LEFT EYE) Comment: x5 (04/16/2015) Dr. Connelly 01/12/2022: CANALOPLASTY W/O STENT; Right Comment: Canaloplasty 360 degrees / Trabeculotomy 180 degrees 2005, 2008, 2011: CARDIAC CATH Comment: mid / distal LAD stents DENISHA 10/08/2018: COLONOSCOPY FLX DX W/COLLJ SPEC WHEN PFRMD Comment: Colonoscopy No date: PAST SURGICAL HISTORY OF; Bilateral Comment: Keratectomy 03/19/2020: PAST SURGICAL HISTORY OF; N/A Comment: Laparoscopic peritoneal dialysis catheter placement with omentopexy- Shamir Tsai MD 03/2020: PAST SURGICAL HISTORY OF Comment: PD Catheter 02/18/2021: PAST SURGICAL HISTORY OF; Left Comment: Canaloplasty / Trabeculotomy 03/27/2021: TRANSPLANTATION OF KIDNEY; Right 03/10/2015: XCAPSL CTRC RMVL INSJ IO LENS PROSTH W/O ECP; Left Comment: Cataract Ext[facility] LENS PROSTH W/O ECP; Right Comment: Cataract Extraction with PC IOL Current Outpatient Medications Medication Sig cyclobenzaprine (FLEXERIL) 10 mg tablet Take 1 tablet by mouth three times a day as needed for muscle spasm or pain. traMADol (ULTRAM) 50 mg tablet Take 1 tablet by mouth every 8 hours as needed for pain for up to 7 days. timolol maleate (TIMOPTIC) 0.5 % ophthalmic solution Use 1 Drop in both eyes two times a day. Use 1drop in both eyes at 8 am and 6 pm furosemide (LASIX) 20 mg tablet Take 1 tablet by mouth every afternoon. carvedilol (COREG) 12.5 mg tablet Take 1 tablet by mouth once daily. atorvastatin (LIPITOR) 40 mg tablet Take 1 tablet by mouth once daily. famotidine (PEPCID) 20 mg tablet Take 1 tablet by mouth two times a day. amLODIPine (NORVASC) 2.5 mg tablet fluticasone (FLONASE) 50 mcg/actuation nasal spray Use 2 Sprays in each nostril once daily. Rinse mouth after use. sirolimus (RAPAMUNE) 0.5 mg tablet Take 1 mg by mouth once daily. propylene glycoL (SYSTANE COMPLETE) 0.6 % drop Use 1 Drop in both eyes four times daily. docusate sodium (COLACE) 100 mg capsule Take 100 mg by mouth twice daily. mycophenolate mofetil (CELLCEPT) 250 mg capsule Take by mouth twice daily. 4 caps q 12 hours sulfamethoxazole-trimethoprim (BACTRIM DS,SEPTRA DS) 800-160 mg per tablet Take by mouth twice daily. clopidogrel (PLAVIX) 75 mg tablet Take 1 tablet by mouth once daily. Gum Uovutx-Fahigs-DFco-Alcohol (MASTISOL ADHESIVE) dpet 1 application as directed. tamsulosin (FLOMAX) 0.4 mg TAKE 1 CAPSULE BY MOUTH EVERYDAY AT BEDTIME blood sugar diagnostic (QuadriservTOUCH ULTRA TEST) test strip Checking blood sugars 3- 4 times daily Insulin [place], Disposable, (BD ULTRAFINE III MINI PEN) 31 gauge x 3/16 use as directed up to four times daily, E11.9 Blood-Glucose Sensor (DEXCOM G6 SENSOR) darleen Change Sensor every 14 days Patient reading blood sugar 12 times daily Blood-Glucose Meter,Continuous (DEXCOM G4 B OPERATOR-SHARE KIT) misc One [place] device, patient checks blood sugars 12 times daily Blood-Glucose Transmitter (DEXCOM G6 TRANSMITTER) darleen 1 Each as directed. Blood-Glucose Meter,Continuous (DEXCOM G6 B OPERATOR) misc 1 Each as directed. insulin detemir U-100 (LEVEMIR FLEXTOUCH U-100 INSULN) 100 unit/mL (3 mL) inpn injection INJECT 36 UNITS SUBCUTANEOUSLY DAILY AT BEDTIME. Lancets (MICROLET LANCET) lancets Test blood sugar(s) 3-4 times daily. Dx: 250.00 . Insulin: Yes Blood-Glucose Meter (ONETOUCH ULTRA2) monitoring kit 1 Each as needed. 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 No current facility-administered medications for this visit. ALLERGIES No Known Allergies Social History Tobacco Use Smoking status: Former Current packs/day: 1.00 Average packs/day: 1 pack/day for 30.0 years (30.0 ttl pk-yrs) Types: Cigarettes Smokeless tobacco: Never Vaping Use Vaping status: Never Used Substance Use Topics Alcohol use: Not Currently Drug use: Not Currently Types: Marijuana Comment: occasional--last used cannibis 04/2019 ROS: See HPI PE: BP 124/60 Pulse 80 Temp (Src) 97 (Right Tympanic) Resp 16 Wt 272 lb (123.4kg) Gen: A&OX3, NAD, non-toxic appearing HEENT: PERRLA, EOMs intact b/l, nares without drainage, pharynx without erythema, exudate, lesions,or drainage. Uvula midline. Neck: No LAD, no thyromegaly, no meningismus. CV: RRR, no murmur Lungs: CTA b/l, no wheezing Skin: No rashes, lesions, or wounds on exposed skin. + paraspinal muscle spasm thoracic and lumbar and spinal TTP with decreased ROM No edema, normal pulses Decreased muscle strength b/l thighs ASSESSMENT/PLAN: 1. Chronic midline low back pain without sciatica - ICD9: 724.2, 338.29, ICD10: M54.50, G89.29 (primary diagnosis) Xray as ordered Use of heat and ice pack alternating Has to avoid NSAIDs due to renal transplant - XR LUMBAR GENERAL 3V AP/LAT/L5-S1 - XR THORACIC GENERAL 3V AP/LAT/SWIMMERS - CYCLOBENZAPRINE 10 MG TABLET - TRAMADOL 50 MG TABLET 2. Need for influenza vaccination - ICD9: V04.81, ICD10: Z23 - INFLUENZA VACCINE, AGE 6MO-64YR, TRIVALENT (AFLURIA, FLULAVAL, FLUVIRIN, FLUZONE) 3. Lumbar paraspinal muscle spasm - ICD9: 724.8, ICD10: M62.830 Xray as ordered Use of heat and ice pack alternating Has to avoid NSAIDs due to renal transplant - XR LUMBAR GENERAL 3V AP/LAT/L5-S1 - XR THORACIC GENERAL 3V AP/LAT/SWIMMERS - CYCLOBENZAPRINE 10 MG TABLET - TRAMADOL 50 MG TABLET Handy Henderson DO Return if no improvement. Follow up with Handy Henderson DO. To ER if develops chest pain, shortness of breath. Discussed risks, benefits, alternatives, and potential side effects of medications. Patient/Guardian expressed understanding and agreed with the plan. See patient instructions. Handy Henderson DO [address] [place] [address] documented in this encounterSelect [facility]-27-[facility]24 NoteHNO ID: [id number] Author: TRINY PALMER, ? Service: ? Author Type: Physician Type: Progress Notes Filed: 11/27/2023 14:11 Note Text: Last saw pcp: 05/07/23 Subjective: Patient presents to clinic c/o painful toenails. They state that the nails are especially painful with shoe gear and pressure. Patient states that nails 1-5 b/l are painful. Patient admits to being diabetic. No other pedal complaints at this time. Patient states no change in medications or medical history since last visit. Objective: Patient presents to clinic ambulating in diabetic boots Vasc: DP and PT pulses are palpable bilateral. CFT is less than 5 seconds bilateral. Skin temperature is warm to cool proximal to distal bilateral. There is mild edema or varicosities noted. Neuro: Protective sensation is absent to the foot and toes when tested with the 5.07 SWM bilateral. Vibratory sensation is absent at the hallux IPJ bilateral. The hallux is downgoing bilateral. Derm: Nails 1-5 b/l are painful, discolored-yellow, thick, crumbly, dystrophic and with subungal debris. Skin is of normal turgor, texture and hair growth is absent bilateral. There are no hyperkeratosis, ulcerations, scars, verruca or other lesions noted. Ortho: Muscle strength is 5/5 for all pedal groups tested. Ankle joint DF is decreased with the knee extended with no pain or crepitus noted. 1st MPJ ROM is decreased bilateral. Assessment: (B35.1) Onychomycosis (primary encounter diagnosis) (M79.675) Pain in toe of left foot (M79.674) Pain in toe of right foot (E11.42) Diabetic polyneuropathy associated with type 2 diabetes mellitus (HCC) Plan: Patient was seen and evaluated. Nails 1-5 bilateral were debrided in length and thickness. Small bleed to right 4th toe. Band aide applied. Patient was instructed on the continued importance of diabetic foot care along with proper diet and keeping their blood sugar under control to prevent complications. Stressed the importance of avioding barefoot walking, wearing good shoes and inspection of feet daily. Swelling much improved to b/l lower extremity Patient is to RTC in 3-4 months. [facility] History of Present illness Narrative* Triny Palmer - 11/27/2023 1:55 PM EDT Last saw pcp: 05/07/23 Subjective: Patient presents to clinic c/o painful toenails. They state that the nails are especially painful with shoe gear and pressure. Patient states that nails 1-5 b/l are painful. Patient admits to being diabetic. No other pedal complaints at this time. Patient states no change in medications or medical history since last visit. Objective: Patient presents to clinic ambulating in diabetic boots Vasc: DP and PT pulses are palpable bilateral. CFT is less than 5 seconds bilateral. Skin temperature is warm to cool proximal to distal bilateral. There is mild edema or varicosities noted. Neuro: Protective sensation is absent to the foot and toes when tested with the 5.07 SWM bilateral.Vibratory sensation is absent at the hallux IPJ bilateral. The hallux is downgoing bilateral. Derm: Nails 1-5 b/l are painful, discolored-yellow, thick, crumbly, dystrophic and with subungal debris. Skin is of normal turgor, texture and hair growth is absent bilateral. There are no hyperkeratosis, ulcerations, scars, verruca or other lesions noted. Ortho: Muscle strength is 5/5 for all pedal groups tested. Ankle joint DF is decreased with the knee extended with no pain or crepitus noted. 1st MPJ ROM is decreased bilateral. Assessment: (B35.1) Onychomycosis (primary encounter diagnosis) (M79.675) Pain in toe of left foot (M79.674) Pain in toe of right foot (E11.42) Diabetic polyneuropathy associated with type 2 diabetes mellitus (HCC) Plan: Patient was seen and evaluated. Nails 1-5 bilateral were debrided in length and thickness. Small bleed to right 4th toe. Band aide applied. Patient was instructed on the continued importance of diabetic foot care along with proper diet and keeping their blood sugar under control to prevent complications. Stressed the importance of avioding barefoot walking, wearing good shoes and inspection of feet daily. Swelling much improved to b/l lower extremity Patient is to RTC in 3-4 months. Triny Palmer DPM * Delmy Beth RN - 11/27/2023 1:46 PM EDT Patient presents with: Left Foot - Established Patient, Follow Up, Diabetic Foot Care Right Foot - Established Patient, Follow Up, Diabetic Foot Care Patient presents for follow up diabetic foot exam. JAMEY 07/30/23 documented in this encounterSelect Medical [facility]08-27-2024 Instructions* Patient Instructions* Triny Palmer - 11/27/2023 1:55 PM EDT Diabetes Foot Care Instructions When you have diabetes, proper foot care is very important. Poor foot care may lead to amputation of a foot or leg. As a person with diabetes, you are more vulnerable to foot problems, because diabetes can damage your nerves and reduce blood flow to your feet. Here are some diabetes foot care tips to follow: Wash and Dry Your Feet Daily Use mild soaps Use warm water Pat your skin dry; do not rub. Thoroughly dry your feet. After washing, use lotion on your feet to prevent cracking. Do not put lotion between your toes. Examine Your Feet Each Day Check the tops and bottoms of your feet. Have someone else look at your feet if you cannot see them. Check for dry, cracked skin. Look for blisters, cuts, scratches, or other sores. Check for redness, increased warmth, or tenderness when touching any area of your feet. Check for ingrown toenails, corns, and calluses. If you get a blister or sore from your shoes, do not pop it. Apply a bandage and wear a differentpair of shoes. Take Care of Your Toenails Cut toenails after bathing, when they are soft. Cut toenails straight across and smooth with a nail file. Avoid cutting into the corners of toes. Do not cut cuticles. If you have neuropathy (or decreased sensation in your feet) a track helper should always cut your toenails. Be Careful When Exercising Walk and exercise in comfortable shoes. Do not exercise when you have open sores on your feet. Protect Your Feet With Shoes and Socks Never go barefoot. Always protect your feet by wearing shoes or hard-soled slippers or footwear. Avoid shoes with high heels and pointed toes. Avoid shoes that expose your toes or heels (such as open-toed shoes or sandals). These types of shoes increase your risk for injury and potential infections. Try on new footwear with the type of socks you usually wear. Do not wear new shoes for more than an hour at a time. Change your socks daily. Look and feel inside your shoes before putting them on to make sure there are no foreign objects orrough areas. Avoid tight socks. Wear natural-fiber socks (cotton, wool, or a cotton-wool blend). Wear special shoes if your health care provider recommends them. Wear shoes/boots that will protect your feet from various weather conditions (cold, moisture, etc.). Make sure your shoes fit properly. If you have neuropathy (nerve damage), you may not notice that your shoes are too tight. Perform the footwear test described below. Footwear Test Use this simple test to see if your shoes fit correctly: Stand on a piece of paper. (Make sure you are standing and not sitting, because your foot changes shape when you stand.) Trace the outline of your foot. Trace the outline of your shoe. Compare the tracings: Is the shoe too narrow? Is your foot crammed into the shoe? The shoe should be at least 1/2 inch longer than your longest toe and as wide as your foot. Proper Shoe Choices The following types of shoes are best for people with diabetes Closed toes and heels Leather uppers without a seam inside At least 1/2 inch extra space at the end of your longest toe Inside of shoe should be soft with no rough areas Outer sole should be made of stiff material Shoes should be at least as wide as your feet Tips for Foot Care in Diabetes Don't wait to treat a minor foot problem if you have diabetes. Follow your health care provider's guidelines and first aid guidelines. Report foot injuries and infections to your health care provider immediately. Check water temperature with your elbow, not your foot. Do not use a heating pad on your feet. Do not cross your legs. Do not self-treat your corns, calluses, or other foot problems. Go to your health care provider or track helper to treat these conditions. documented in this encounterSelect Medical Trihealth [facility]08-27-2024 NoteHNO ID: [id number] Author: DELMY BETH RN Service: ? Author Type: Registered Nurse Type: Progress Notes Filed: 11/27/2023 14:11 Note Text: Patient presents with: Left Foot - Established Patient, Follow Up, Diabetic Foot Care Right Foot - Established Patient, Follow Up, Diabetic Foot Care Patient presents for follow up diabetic foot exam. JAMEY 07/30/23[facility]-12[facility] NoteHNO ID: [id number] Author: GEORGE PACHECO MD Service: ? Author Type: Physician Type: Progress Notes Filed: 11/12/2023 13:45 Note Text: ASSESSMENT/PLAN: 1. Primary open angle glaucoma (POAG) of right eye, mild stage - ICD9: 365.11, 365.71, ICD10: H40.1111 (primary diagnosis) 2. Primary open angle glaucoma (POAG) of left eye, mild stage - ICD9: 365.11, 365.71, ICD10: H40.1121 3. Optic cupping of both eyes - ICD9: 377.14, ICD10: H47.233 - Status Post Canaloplasty / Trabeculotomy - Right eye (01/12/2022) Status post Canaloplasty / Trabeculotomy left eye 02/18/2021 The nature of glaucoma was discussed, with emphasis on the non-reversible damage to the optic nerve. Treatment options and the importance of regular examinations and testing were covered in detail, as well as the consequences of non-compliance. The patient was given the opportunity to ask questions. Continue: Current Ophthalmic Meds propylene glycoL (SYSTANE COMPLETE) 0.6 % drop Use 1 Drop in both eyes four times daily. timolol maleate (TIMOPTIC) 0.5 % ophthalmic solution Use 1 Drop in both eyes two times a day. Use 1 drop in both eyes at 8 am and 6 pm Return in 6 months for Dilated fundus exam, visual field and fundus photos 4. 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) - ICD9: 250.51, 362.02, ICD10: E10.3593 Please keep your blood sugar under good control to minimize risk of ocular complications from diabetes. 5. Essential hypertension - ICD9: 401.9, ICD10: I10 6. Hypercholesteremia - ICD9: 272.0, ICD10: E78.00 Continue to monitor with primary care physician I have confirmed and edited as necessary the relevant HPI, ophthalmic history, ROS, and the neuro exam findings as obtained by others. I have seen and examined Андрей Nickerson. I have discussed the case and the management of this patient's care with the Resident/Fellow, if applicable. I also have reviewed and agree with the assessment and plan as stated above and agree with all of its relevant components. George Pacheco, [facility]08-12-2024 History of Present illness Narrative* George Pacheco MD - 11/12/2023 1:40 PM EDT ASSESSMENT/PLAN: 1. Primary open angle glaucoma (POAG) of right eye, mild stage - ICD9: 365.11, 365.71, ICD10: H40.1111 (primary diagnosis) 2. Primary open angle glaucoma (POAG) of left eye, mild stage - ICD9: 365.11, 365.71, ICD10: H40.1121 3. Optic cupping of both eyes - ICD9: 377.14, ICD10: H47.233 - Status Post Canaloplasty / Trabeculotomy - Right eye (01/12/2022) Status post Canaloplasty / Trabeculotomy left eye 02/18/2021 The nature of glaucoma was discussed, with emphasis on the non-reversible damage to the optic nerve. Treatment options and the importance of regular examinations and testing were covered in detail, as well as the consequences of non-compliance. The patient was given the opportunity to ask questions. Continue: Current Ophthalmic Meds propylene glycoL (SYSTANE COMPLETE) 0.6 % drop Use 1 Drop in both eyes four times daily. timolol maleate (TIMOPTIC) 0.5 % ophthalmic solution Use 1 Drop in both eyes two times a day. Use 1drop in both eyes at 8 am and 6 pm Return in 6 months for Dilated fundus exam, visual field and fundus photos 4. 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 5. Essential hypertension - ICD9: 401.9, ICD10: I10 6. Hypercholesteremia - ICD9: 272.0, ICD10: E78.00 Continue to monitor with primary care physician I have confirmed and edited as necessary the relevant HPI, ophthalmic history, ROS, and the neuro exam findings as obtained by others. I have seen and examined Андрей Nickerson. I have discussed the case and the management of this patient's care with the Resident/Fellow, if applicable. I also have reviewed and agree with the assessment and plan as stated above and agree withall of its relevant components. George Pacheco MD documented in this encounterSelect Medical [facility]08-12-2024 NoteDate of Procedure 11/12/2023. Development Associate Information Winch Operator: cayla. Quality Right Eye Good. Left Eye Good. NFL Interpretation Right Eye Normal. Left Eye Normal. Interval Change Right Eye Stable. Left Eye Stable.[id number] Instructions* Patient Instructions* George Pacheco MD - 11/12/2023 1:28 PM EDT Continue: Current Ophthalmic Meds timolol maleate (TIMOPTIC) 0.5 % ophthalmic solution Use 1 Drop in both eyes two times a day. Use 1drop in both eyes at 8 am and 6 pm propylene glycoL (SYSTANE COMPLETE) 0.6 % drop Use 1 Drop in both eyes four times daily. Please keep your blood sugar under good control to minimize risk of ocular complications from diabetes. If you have any questions please contact our office at [phone]. After office hours or on the weekend, please call Dr. Pacheco on his cell phone at [phone]. documented in this encounterSelect Medical [facility]health [facility]08-07-2024 NoteHNO ID: [id number] Author: GLYNN LEON MD Service: ? Author Type: Physician Type: Progress Notes Filed: 11/07/2023 14:37 Note Text: Patient presents with: Sinus Problem: Congestion, NAJERA x 2 weeks HPI: Feeling sick for 2 weeks. Head congestion feels worse today. Positive symptoms: Sinus pressure, Nasal Congestion, Rhinorrhea, Post nasal drainage, Headache, feels cold today Negative symptoms: Shortness of breath, Sore throat, Fever, Nausea, Vomiting, OTC: none (on immune suppression for kidney transplant) PAST MEDICAL HISTORY No date: Arrhythmia No date: CKD (chronic kidney disease) stage 3, GFR 30-59 ml/min ([facility]) Comment: [facility] 2006: Coronary artery disease Comment: s/p PCI. 3 stents total 1971: Diabetes type 1, uncontrolled Comment: nephropathy, retinopathy, dx age 10, Dr. Leon [facility] No date: Heart attack ([facility]) No date: Hyperlipidemia No date: Hypertension No date: Lacunar stroke ([facility]) No date: Macular edema Comment: [facility] No date: MVP (mitral valve prolapse) No date: Pancreatitis No date: Proliferative diabetic retinopathy(362.02) Comment: [facility] No date: Snoring 2017: Stroke ([facility]) No date: Tobacco abuse PAST SURGICAL HISTORY No date: AVASTIN (BEVACIZUMAB) 1.25MG INTRAVITREAL INJECTION OS (LEFT EYE) Comment: x5 (04/16/2015) Dr. Connelly 01/12/2022: CANALOPLASTY W/O STENT; Right Comment: Canaloplasty 360 degrees / Trabeculotomy 180 degrees 2005, 2008, 2011: CARDIAC CATH Comment: mid / distal LAD stents DENISHA 10/08/2018: COLONOSCOPY FLX DX W/COLLJ SPEC WHEN PFRMD Comment: Colonoscopy No date: PAST SURGICAL HISTORY OF; Bilateral Comment: Keratectomy 03/19/2020: PAST SURGICAL HISTORY OF; N/A Comment: Laparoscopic peritoneal dialysis catheter placement with omentopexy- Shamir Tsai MD 03/2020: PAST SURGICAL HISTORY OF Comment: PD Catheter 02/18/2021: PAST SURGICAL HISTORY OF; Left Comment: Canaloplasty / Trabeculotomy 03/27/2021: TRANSPLANTATION OF KIDNEY; Right 03/10/2015: XCAPSL CTRC RMVL INSJ IO LENS PROSTH W/O ECP; Left Comment: Cataract Extraction with PC IOL 04/01/2015: XCAPSL CTRC RMVL INSJ IO LENS PROSTH W/O ECP; Right Comment: Cataract Extraction with PC IOL MEDICATIONS: Current Outpatient Medications Medication Sig timolol maleate (TIMOPTIC) 0.5 % ophthalmic solution Use 1 Drop in both eyes two times a day. Use 1 drop in both eyes at 8 am and 6 pm carvedilol (COREG) 12.5 mg tablet Take 1 tablet by mouth once daily. atorvastatin (LIPITOR) 40 mg tablet Take 1 tablet by mouth once daily. famotidine (PEPCID) 20 mg tablet Take 1 tablet by mouth two times a day. amLODIPine (NORVASC) 2.5 mg tablet fluticasone (FLONASE) 50 mcg/actuation nasal spray Use 2 Sprays in each nostril once daily. Rinse mouth after use. sirolimus (RAPAMUNE) 0.5 mg tablet Take 1 mg by mouth once daily. propylene glycoL (SYSTANE COMPLETE) 0.6 % drop Use 1 Drop in both eyes four times daily. docusate sodium (COLACE) 100 mg capsule Take 100 mg by mouth twice daily. mycophenolate mofetil (CELLCEPT) 250 mg capsule Take by mouth twice daily. 4 caps q 12 hours sulfamethoxazole-trimethoprim (BACTRIM DS,SEPTRA DS) 800-160 mg per tablet Take by mouth twice daily. clopidogrel (PLAVIX) 75 mg tablet Take 1 tablet by mouth once daily. tamsulosin (FLOMAX) 0.4 mg TAKE 1 CAPSULE BY MOUTH EVERYDAY AT BEDTIME blood sugar diagnostic (ONETOUCH ULTRA TEST) test strip Checking blood sugars 3-4 times daily Insulin [place], Disposable, (BD ULTRAFINE III MINI PEN) 31 gauge x 3/16 use as directed up to four times daily, E11.9 Blood-Glucose Sensor (DEXCOM G6 SENSOR) darleen Change Sensor every 14 days Patient reading blood sugar 12 times daily Blood-Glucose Meter,Continuous (DEXCOM G4 B OPERATOR-SHARE KIT) misc One [place] device, patient checks blood sugars 12 times daily Blood-Glucose Transmitter (DEXCOM G6 TRANSMITTER) darleen 1 Each as directed. Blood-Glucose Meter,Continuous (DEXCOM G6 B OPERATOR) misc 1 Each as directed. insulin detemir U-100 (LEVEMIR FLEXTOUCH U-100 INSULN) 100 unit/mL (3 mL) inpn injection INJECT 36 UNITS SUBCUTANEOUSLY DAILY AT BEDTIME. Lancets (MICROLET LANCET) lancets Test blood sugar(s) 3-4 times daily. Dx: 250.00 . Insulin: Yes Blood-Glucose Meter (ONETOUCH ULTRA2) monitoring kit 1 Each as needed. 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 furosemide (LASIX) 20 mg tablet Take 1 tablet by mouth every afternoon. (Patient not taking: Reported on 11/07/2023) Gum Ghxipn-Ntkmvi-BZdj-Alcohol (MASTISOL ADHESIVE) dpet 1 application as directed. No current facility-administered medications for this visit. ALLERGIES: ALLERGIES No Known Allergies VITALS: BP 120/70 Pulse 70 Temp 36 ?C (96.8 ?F) Resp 21 Wt 120.8 kg (266 lb (more content not included)...[facility]08-07-2024 History of Present illness Narrative* Glynn Leon MD - 11/07/2023 2:18 PM EDT Patient presents with: Sinus Problem: Congestion, NAJERA x 2 weeks HPI: Feeling sick for 2 weeks. Head congestion feels worse today. Positive symptoms: Sinus pressure, Nasal Congestion, Rhinorrhea, Post nasal drainage, Headache, feels cold today Negative symptoms: Shortness of breath, Sore throat, Fever, Nausea, Vomiting, OTC: none (on immune suppression for kidney transplant) PAST MEDICAL HISTORY No date: Arrhythmia No date: CKD (chronic kidney disease) stage 3, GFR 30-59 ml/min ([facility]) Comment: [facility] 2006: Coronary artery disease Comment: s/p PCI. 3 stents total 1971: Diabetes type 1, uncontrolled Comment: nephropathy, retinopathy, dx age 10, Dr. Leon [facility] No date: Heart attack ([facility]) No date: Hyperlipidemia No date: Hypertension No date: Lacunar stroke ([facility]) No date: Macular edema Comment: [facility] No date: MVP (mitral valve prolapse) No date: Pancreatitis No date: Proliferative diabetic retinopathy(362.02) Comment: [facility] No date: Snoring 2017: Stroke ([facility]) No date: Tobacco abuse PAST SURGICAL HISTORY No date: AVASTIN (BEVACIZUMAB) 1.25MG INTRAVITREAL INJECTION OS (LEFT EYE) Comment: x5 (04/16/2015) Dr. Connelly 01/12/2022: CANALOPLASTY W/O STENT; Right Comment: Canaloplasty 360 degrees / Trabeculotomy 180 degrees 2005, 2008, 2011: CARDIAC CATH Comment: mid / distal LAD stents DENISHA 10/08/2018: COLONOSCOPY FLX DX W/COLLJ SPEC WHEN PFRMD Comment: Colonoscopy No date: PAST SURGICAL HISTORY OF; Bilateral Comment: Keratectomy 03/19/2020: PAST SURGICAL HISTORY OF; N/A Comment: Laparoscopic peritoneal dialysis catheter placement with omentopexy- Shamir Tsai MD 03/2020: PAST SURGICAL HISTORY OF Comment: PD Catheter 02/18/2021: PAST SURGICAL HISTORY OF; Left Comment: Canaloplasty / Trabeculotomy 03/27/2021: TRANSPLANTATION OF KIDNEY; Right 03/10/2015: XCAPSL CTRC RMVL INSJ IO LENS PROSTH W/O ECP; Left Comment: Cataract Extraction with PC IOL 04/01/2015: XCAPSL CTRC RMVL INSJ IO LENS PROSTH W/O ECP; Right Comment: Cataract Extraction with PC IOL MEDICATIONS: Current Outpatient Medications Medication Sig timolol maleate (TIMOPTIC) 0.5 % ophthalmic solution Use 1 Drop in both eyes two times a day. Use 1drop in both eyes at 8 am and 6 pm carvedilol (COREG) 12.5 mg tablet Take 1 tablet by mouth once daily. atorvastatin (LIPITOR) 40 mg tablet Take 1 tablet by mouth once daily. famotidine (PEPCID) 20 mg tablet Take 1 tablet by mouth two times a day. amLODIPine (NORVASC) 2.5 mg tablet fluticasone (FLONASE) 50 mcg/actuation nasal spray Use 2 Sprays in each nostril once daily. Rinse mouth after use. sirolimus (RAPAMUNE) 0.5 mg tablet Take 1 mg by mouth once daily. propylene glycoL (SYSTANE COMPLETE) 0.6 % drop Use 1 Drop in both eyes four times daily. docusate sodium (COLACE) 100 mg capsule Take 100 mg by mouth twice daily. mycophenolate mofetil (CELLCEPT) 250 mg capsule Take by mouth twice daily. 4 caps q 12 hours sulfamethoxazole-trimethoprim (BACTRIM DS,SEPTRA DS) 800-160 mg per tablet Take by mouth twice daily. clopidogrel (PLAVIX) 75 mg tablet Take 1 tablet by mouth once daily. tamsulosin (FLOMAX) 0.4 mg TAKE 1 CAPSULE BY MOUTH EVERYDAY AT BEDTIME blood sugar diagnostic (ONETOUCH ULTRA TEST) test strip Checking blood sugars 3- 4 times daily Insulin [place], Disposable, (BD ULTRAFINE III MINI PEN) 31 gauge x 3/16 use as directed up to four times daily, E11.9 Blood-Glucose Sensor (DEXCOM G6 SENSOR) darleen Change Sensor every 14 days Patient reading blood sugar 12 times daily Blood-Glucose Meter,Continuous (DEXCOM G4 B OPERATOR-SHARE KIT) misc One [place] device, patient checks blood sugars 12 times daily Blood-Glucose Transmitter (DEXCOM G6 TRANSMITTER) darleen 1 Each as directed. Blood-Glucose Meter,Continuous (DEXCOM G6 B OPERATOR) misc 1 Each as directed. insulin detemir U-100 (LEVEMIR FLEXTOUCH U-100 INSULN) 100 unit/mL (3 mL) inpn injection INJECT 36 UNITS SUBCUTANEOUSLY DAILY AT BEDTIME. Lancets (MICROLET LANCET) lancets Test blood sugar(s) 3-4 times daily. Dx: 250.00 . Insulin: Yes Blood-Glucose Meter (ONETOUCH ULTRA2) monitoring kit 1 Each as needed. 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 furosemide (LASIX) 20 mg tablet Take 1 tablet by mouth every afternoon. (Patient not taking: Reported on 11/07/2023) Gum Qjbryv-Xmhmxy-SYdr-Alcohol (MASTISOL ADHESIVE) dpet 1 application as directed. No current facility-administered medications for this visit. ALLERGIES: ALLERGIES No Known Allergies VITALS: BP 120/70 Pulse 70 Temp 36 C (96.8 F) Resp 21 Wt 120.8 kg (266 lb 5.1 oz) SpO2 98% BMI 38.21 kg/m PHYSICAL EXAM: GEN: pleasant, mildly ill appearing HEENT: PERRL, EOMI, conjunctiva clear Ears: canals clear. TMs without erythema, bulge, or effusion Sinuses: non-tender frontal sinus, non-tender maxillary sinuses Throat: moist mucous membranes, no erythema, no exudate Neck: supple, no thyromegaly, no lymphadenopathy HEART: regular rate and rhythm, no murmurs LUNGS: clear to auscultation, no wheezes or crackles, no increased WOB ASSESSMENT/PLAN: 1. Acute non-recurrent sinusitis, unspecified location - ICD9: 461.9, ICD10: J01.90 - Will begin treatment with augmentin. eGFR was 26 in August. - AMOXICILLIN 500 MG-POTASSIUM CLAVULANATE 125 MG TABLET Glynn Leon MD documented in this encounterCleveland [id number] History of Present illness Narrative* Mirna Danielle Narciso, ROPEWALK ROPE MAKER-ENGINE SETTER - 11/06/2023 2:30 PM EDT Images from the original note were not included. Chief Complaint: Андрей Nickerson is a 63 y.o. male who received a kidney transplant from a Donation after [facility] donor on 03/27/21 due to Diabetes Mellitus - Type I. The HLA mismatch was 1A, 1B, 0DR. Prior to transplant, the cPRA of the recipient was 0%. Donor KDPI 82%. CMV D+/R-. EBV R+. ATG induction 1.75 mg/kg total. Pre-transplant shoer: Rosario Cardenas, no longer following. PCP: Dr. Henderson Last seen here 09/2022. History of Present Illness: States has gained some weight in the last year, had issues with wound on his foot (recently healed)lead to reduced mobility. Plans on increasing activity with walking. On going swelling mostly controlled with compression socks. Has been on lasix but ran about a week ago. Swelling is overall stable. Notable(s) since transplant: Delayed graft function requiring iHD on 03/29/21. Donor Hep C Ab +/ADAMARIS +. Treatment with Epclusa x 12 weeks 04/2021-07/2021. Achieved SVR12 Donor Hep B core Ab+ Incisional bleeding post operatively 05/2021-COVID infection 05/2021-hospital admission for confusion/weakness. Unclear etiology. Tacrolimus discontinued and changed to everolimus 07/2021-Everolimus stopped due to cost. Sirolimus started Review of Systems Constitutional: negative for fatigue or fever, significant weight gain or loss Cardiovascular: + shortness of breath with exertion +swelling, mostly controlled with LE stockings Gastrointestinal: negative for diarrhea, heartburn, vomiting Genitourinary: negative for dysuria; urinating at least 5 times daily Wt Readings from Last 3 Encounters: 11/06/23 120.7 kg (266 lb) 10/05/22 114.1 kg (251 lb 9.6 oz) 03/16/22 110.6 kg (243 lb 14.4 oz) Blood pressure: 130/70s Physical Exam: Physical Exam: Vital Signs: Blood pressure 131/72, pulse 75, height 1.791 m (5' 10.5), weight 120.7 kg (266 lb). Body mass index is 37.63 kg/m . General: Pleasant, appears comfortable Cardiovascular: no peripheral edema Abdomen: Soft, non-tender, non-distended Skin: No rashes or lesions Karnofsky score: 80% Normal activity with effort; some signs or symptoms of disease, not working. Allergies: No Known Allergies Medications: Current Outpatient Medications Medication Sig albuterol 108 (90 Base) MCG/ACT Aero Soln inhaler Inhale 1-2 puffs every 6 hours as needed for Shortness of Breath. Aspirin [address] tablet Take 1 tablet by mouth daily. atorvastatin 40 MG tablet Take 1 tablet by mouth daily. buPROPion 100 MG tablet SR Take 1 tablet by mouth 2 times daily. carveDILOL 12.5 MG tablet Take 1 tablet by mouth every 12 hours. clopidogrel 75 MG tablet Take 1 tablet by mouth daily. docusate 100 MG capsule Take 1 capsule by mouth 2 times daily as needed for Constipation. Hold for loose stool insulin aspart (NOVOLOG) 100 UNIT/ML SC SOLN Per pump - uses approximately 50-70 per day. Mycophenolate mofetil (CELLCEPT) 250 MG capsule Take 4 capsules by mouth every 12 hours. senna 8.6 MG tablet Take 1 tablet by mouth daily as needed for Constipation. Sirolimus (RAPAMUNE) 0.5 MG tablet Take 2 tablets by mouth daily. Sulfamethoxazole-trimethoprim 800-160 MG per tablet Take 1 tablet by mouth every Sunday, Sunday,Sunday dinner. Tamsulosin HCl 0.4 MG capsule Take 1 capsule by mouth daily. acetaminophen 325 MG tablet Take 2 tablets by mouth every 6 hours as needed for Mild Pain or Pain (breakthrough). amLODIPine 2.5 MG tablet Take 1 tablet by mouth daily. Dexcom G6 Sensor Misc Change Sensor every 14 days Patient reading blood sugar 12 times daily Dexcom G6 Transmitter Misc CHANGE EVERY 90 DAYS Glucagon, rDNA, (Glucagon Emergency) 1 MG Kit Inject 1 Dose as directed as needed (Low glucose levels.). Glucagon, rDNA, 1 MG IJ KIT by Subcutaneous route. Use as directed (Patient taking differently: Inject 1 mg under the skin as needed for Low blood sugar.) Propylene Glycol (Systane Balance) 0.6 % Solution Place 1 drop in both eyes daily. Labs: [place] ADAMARIS testing at 28 to 56 days post transplant 05/02/21 06:35 Hep B Surf AG, MANUAL ENTER non-reactive Hepatitis B DNA, MANUAL ENTER not detected Hepatitis C PCR (quantative), MANUAL ENTER 120 HIV viral load RNA PCR Quant, MANUAL ENTER <20 HBV Core Ab (+) donor 05/02/21 06:35 11/21/21 08:56 03/15/22 09:47 Hep B Surf AG, MANUAL ENTER non-reactive negative negative Hepatitis B DNA, MANUAL ENTER not detected HEPATITIS B SURF ANTIBODIES, MANUAL ENTER negative Hepatitis B Surface AB, Quant, MANUAL ENTER 303.26 Alloscreen 04/09/21 06:42 05/11/21 15:27 10/13/21 15:24 03/16/22 12:44 cPRA 0 0 0 0 ANTIBODY SPECIFICITY INTERPRETATION No DSA detected No DSA detected No DSA detected No DSA detected BK (monthly for the first 6 months, then on months 9, 12, 18 and 24) SERUM BK VIRUS DNA Quantitative, MANUAL ENTER (no units) Date Value 11/07/2021 not detected 10/24/2021 not detected 10/10/2021 not detected 10/04/2021 not detected 09/27/2021 not detected 08/30/2021 not detected 07/04/2021 <390 06/02/2021 not detected 05/30/2021 negative Bk Viral Load, Plasma (copies/mL) Date Value 03/16/2022 <500 05/11/2021 746 (H) Lab Results Component Value Date WBC 4.75 09/28/2023 HGB 11.4 09/28/2023 HCT 37.6 09/28/2023 PLATELET 243 09/28/2023 Lab Results Component Value Date SODIUM 138 09/28/2023 CHLORIDE 108 09/28/2023 BUN 20 09/28/2023 POTASSIUM 4.4 09/28/2023 CREATSERUM 2.66 09/28/2023 GLUCOSE 133 09/28/2023 Lab Results Component Value Date ALBUMIN 3.6 03/21/2023 AST 16 03/21/2023 ALT 22 03/21/2023 GGT 29 06/30/2020 BILITOTAL 0.5 03/21/2023 CALCIUM 9.0 09/28/2023 PHOSPHORUS 2.4 09/28/2023 MAGNESIUM 2.2 09/28/2023 PROTEIN/CREATININE RATIO, MANUAL ENTER Date Value Ref Range Status 04/22/2022 0.7 Final TOTAL CHOLESTERL, MANUAL ENTER Date Value Ref Range Status 03/21/2023 72 Final HDL, MANUAL ENTER Date Value Ref Range Status 03/21/2023 31 Final LDL, MANUAL ENTER Date Value Ref Range Status 03/21/2023 20 Final TRIGLYCERIDES, MANUAL ENTER Date Value Ref Range Status 03/21/2023 85 Final Lab Results Component Value Date PTH 194 03/21/2023 Lab Results Component Value Date SIROLIMUS 6.9 09/28/2023 TACROLIMUS 9.4 06/17/2021 CMV BY PCR, BLOOD, QUANT, MANUAL ENTER (no units) Date Value 11/21/2021 not detected 10/24/2021 not detected CMV By Pcr, Iu/Ml, Plasma (IU/mL) Date Value 06/15/2021 <50 Creatinine trend over the last 2 years Assessment and Plan: Kidney Transplant Creatinine variable 2.3-2.5 Will check alloscreen, BK, UPC and urinalysis today Immunosuppression: 05/2021-MMF reduced for low level BK. 07/2021 increased back to full dose 09/28/2023-Sirolimus level 6.9 Goal 5-7 No changes Current Immunosuppressive Medication(s) Immunosuppressive Agents Mycophenolate mofetil (CELLCEPT) 250 MG capsule Take 4 capsules by mouth every 12 hours. Sirolimus (RAPAMUNE) 0.5 MG tablet Take 2 tablets by mouth daily. Proteinuria 04/2023 UPC 1.3 grams Repeat today Continue prophylaxis for PJP with Bactrim Hepatitis C AB (+)/ADAMARIS(+) donor Inpatient hepatology consult complete HCV genotype 1a Treatment with Epclusa x 12 weeks Start date 04/26/21 End date 07/19/21 SVR12 date 10/11/21 10/13/21 HEP C BY PCR <12 HEP C BY PCR, LOG <1.08 Hypertension - controlled Continue regimen per PCP No longer on lasix [facility] PTH 194 with normal Ca/Phos, no intervention required. Monitor annually Glycemic Control -T1DM prior to transplant Follows with endocrinology Reports excellent control Follows with dermatology regularly- history of skin cancers Mr. Nickerson has been asked to return to the clinic in 1 year and labs to be drawn every 2 weeks. However we will see the patient earlier should the need arise. The data reviewed and analyzed for the above problems included medical records and lab results. Mirna Stuart MS (Link), RN, ROPEWALK ROPE MAKER-ENGINE SETTER Certified Nurse Practitioner [facility] [address] [facility] [address] documented in this encounterU [facility] Instructions* Patient Instructions* DANIEL Soler - 11/06/2023 2:30 PM EDT -Labs today in clinic and then continue labs every 2 months -No medication changes today -Recommend seeing a general shoer -Follow up in 1 year documented in this encounterU [facility] NoteDate of Procedure 09/11/2023. Development Associate Information Winch Operator: cayla. Reliability Right Eye Good. Left Eye Good. Interpretation Right Eye Arcuate defect; Comments: (Inferior arcuate field loss). Left Eye Arcuate defect; Comments: (Inferior arcuate field loss). Interval Change Right Eye Stable. Left Eye Stable.[id number] NoteDate of Procedure 09/11/2023. Development Associate Information Winch Operator: cayla. C/D Ratio Right Eye 0.3. Left Eye 0.3. Disc Right Eye Cupping. Left Eye Cupping. Macula Right Eye (Panretinal laser photocoagulation scars). Left Eye Normal. Periphery Right Eye Laser scars. Left Eye Laser scars.[id number] Instructions* Patient Instructions* George Pacheco MD - 09/11/2023 3:11 PM EDT The nature of glaucoma was discussed, with emphasis on the non-reversible damage to the optic nerve. Treatment options and the importance of regular examinations and testing were covered in detail, as well as the consequences of non-compliance. The patient was given the opportunity to ask questions. Continue: Current Ophthalmic Meds propylene glycoL (SYSTANE COMPLETE) 0.6 % drop Use 1 Drop in both eyes four times daily. timolol maleate (TIMOPTIC) 0.5 % ophthalmic solution Use 1 Drop in both eyes twice a day at 8 am and 6 pm Please keep your blood sugar under good control to minimize risk of ocular complications from diabetes. If you have any questions please contact our office at [phone]. After office hours or on the weekend, please call Dr. Pacheco on his cell phone at [phone]. documented in this encounterSelect Medical [facility]06-11-2024 History of Present illness Narrative* George Pacheco MD - 09/11/2023 3:07 PM EDT ASSESSMENT/PLAN: 1. Primary open angle glaucoma (POAG) of right eye, mild stage - ICD9: 365.11, 365.71, ICD10: H40.1111 (primary diagnosis) 2. Primary open angle glaucoma (POAG) of left eye, mild stage - ICD9: 365.11, 365.71, ICD10: H40.1121 3. Optic cupping of both eyes - ICD9: 377.14, ICD10: H47.233 - Status Post Canaloplasty / Trabeculotomy - Right eye (01/12/2022) Status post Canaloplasty / Trabeculotomy left eye 02/18/2021 The nature of glaucoma was discussed, with emphasis on the non-reversible damage to the optic nerve. Treatment options and the importance of regular examinations and testing were covered in detail, as well as the consequences of non-compliance. The patient was given the opportunity to ask questions. Current Ophthalmic Meds timolol maleate (TIMOPTIC) 0.5 % ophthalmic solution Use 1 Drop in both eyes every morning. Systane Complete Artificial Tears - Use 1 Drop into both eyes three times a day. 4. 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 5. Essential hypertension - ICD9: 401.9, ICD10: I10 6. Hypercholesteremia - ICD9: 272.0, ICD10: E78.00 Continue to monitor with primary care physician I have confirmed and edited as necessary the relevant HPI, ophthalmic history, ROS, and the neuro exam findings as obtained by others. I have seen and examined Андрей Nickerson. I have discussed the case and the management of this patient's care with the Resident/Fellow, if applicable. I also have reviewed and agree with the assessment and plan as stated above and agree withall of its relevant components. documented in this encounterSelect Medical [facility]05-22-2024 Telephone encounter Note * Telephone Encounter - Mariam Singleton LPN - 08/22/2023 9:09 AM EDT Spoke with patient. Dr. Lawrence's office has placed order. Mariam Singleton LPN [facility]05-22-2024 Miscellaneous Notes* Telephone Encounter - Mariam Singleton LPN - 08/22/2023 9:09 AM EDT Spoke with patient. Dr. Lawrence's office has placed order. Mariam Singleton LPN * Telephone Encounter - Mariam Singleton LPN - 08/22/2023 8:08 AM EDT Images from the original note were not included. Triny smith You8 hours ago (11:16 PM) So I last saw patient in July and it did not appear he had wound. Does patient have a new wound tohis leg. Based on my last evaluation, I don't think I can make referral if I have no way of knowing what thewound looks like (this appears new) Triny Palmer DPM * Telephone Encounter - Awa Jorge MA - 08/20/2023 9:36 AM EDT Patient phoned requesting a referral to wound care. He would like the office to be in [place]. He states he is okay with this being at [facility] if necessary. Awa Jorge MA documented in this encounterSelect Medical Trihealth [facility]05-22-2024 Telephone encounter Note * Telephone Encounter - Mariam Singleton LPN - 08/22/2023 8:08 AM EDT Images from the original note were not included. luis Triny You8 hours ago (11:16 PM) So I last saw patient in July and it did not appear he had wound. Does patient have a new wound tohis leg. Based on my last evaluation, I don't think I can make referral if I have no way of knowing what thewound looks like (this appears new) Triny Palmer DPM [facility]05-20-2024 Telephone encounter Note* Telephone Encounter - Awa Jorge MA - 08/20/2023 9:36 AM EDT Patient phoned requesting a referral to wound care. He would like the office to be in [place]. He states he is okay with this being at [facility] if necessary. Awa Jorge MA [facility]04-29-2024 History of Present illness Narrative* Triny Palmer - 07/30/2023 2:12 PM EDT Last saw pcp: 07/26/23 Subjective: Patient presents to clinic c/o painful toenails. They state that the nails are especially painful with shoe gear and pressure. Patient states that nails 1-5 b/l are painful. Patient admits to being diabetic. Has swelling in legs and working with vascular surgery from [facility]. No other pedalcomplaints at this time. Patient states no change in medications or medical history since last visit. Objective: Patient presents to clinic ambulating in [facility] Vasc: DP and PT pulses are faintly palpable bilateral. CFT is less than 5 seconds bilateral. Skin temperature is warm to cool proximal to distal bilateral. There is severe edema or varicosities noted. Neuro: Protective sensation is intact to the foot and toes when tested with the 5.07 SWM bilateral.Vibratory sensation is decreased at the hallux IPJ bilateral. The hallux is downgoing bilateral. Derm: Nails 1-5 b/l are painful, discolored-yellow, thick, crumbly, dystrophic and with subungal debris. Skin is of normal turgor, texture and hair growth is absent bilateral. There are no hyperkeratosis, ulcerations, scars, verruca or other lesions noted. Ortho: Muscle strength is 5/5 for all pedal groups tested. Ankle joint DF is decreased with the knee extended with no pain or crepitus noted. 1st MPJ ROM is decreased bilateral. Assessment: (I87.2) Venous insufficiency (primary encounter diagnosis) (B35.1) Onychomycosis (M79.675) Pain in toe of left foot (M79.674) Pain in toe of right foot (E11.42) Diabetic polyneuropathy associated with type 2 diabetes mellitus (HCC) Plan: Patient was seen and evaluated. Nails 1-5 bilateral were debrided in length and thickness. Patient was instructed on the continued importance of diabetic foot care along with proper diet andkeeping their blood sugar under control to prevent complications. Discussed his neuropathy. Recommend avoiding barefoot walking and wearing good shoes. Continue with compression for lower extremity swelling. Patient is to RTC in 3-4 months. Of note, patient does have difficult time due to swelling of lower extremity walking long distance.Will provide patient with handicapped parking. Triny Palmer DPM * Mariam Singleton LPN - 07/30/2023 1:43 PM EDT AMB ROOMING INTAKE FLOWSHEET DATA Patient presents with: Left Foot - Swelling, Established Patient, Follow Up Right Foot - Swelling, Established Patient, Follow Up Mariam Singleton LPN documented in this encounterSelect Medical Trihealth Rehabilitation Hospital04-29-2024 Instructions* Patient Instructions* Triny Palmer - 07/30/2023 2:12 PM EDT Diabetes Foot Care Instructions When you have diabetes, proper foot care is very important. Poor foot care may lead to amputation of a foot or leg. As a person with diabetes, you are more vulnerable to foot problems, because diabetes can damage your nerves and reduce blood flow to your feet. Here are some diabetes foot care tips to follow: Wash and Dry Your Feet Daily Use mild soaps Use warm water Pat your skin dry; do not rub. Thoroughly dry your feet. After washing, use lotion on your feet to prevent cracking. Do not put lotion between your toes. Examine Your Feet Each Day Check the tops and bottoms of your feet. Have someone else look at your feet if you cannot see them. Check for dry, cracked skin. Look for blisters, cuts, scratches, or other sores. Check for redness, increased warmth, or tenderness when touching any area of your feet. Check for ingrown toenails, corns, and calluses. If you get a blister or sore from your shoes, do not pop it. Apply a bandage and wear a differentpair of shoes. Take Care of Your Toenails Cut toenails after bathing, when they are soft. Cut toenails straight across and smooth with a nail file. Avoid cutting into the corners of toes. Do not cut cuticles. If you have neuropathy (or decreased sensation in your feet) a track helper should always cut your toenails. Be Careful When Exercising Walk and exercise in comfortable shoes. Do not exercise when you have open sores on your feet. Protect Your Feet With Shoes and Socks Never go barefoot. Always protect your feet by wearing shoes or hard-soled slippers or footwear. Avoid shoes with high heels and pointed toes. Avoid shoes that expose your toes or heels (such as open-toed shoes or sandals). These types of shoes increase your risk for injury and potential infections. Try on new footwear with the type of socks you usually wear. Do not wear new shoes for more than an hour at a time. Change your socks daily. Look and feel inside your shoes before putting them on to make sure there are no foreign objects orrough areas. Avoid tight socks. Wear natural-fiber socks (cotton, wool, or a cotton-wool blend). Wear special shoes if your health care provider recommends them. Wear shoes/boots that will protect your feet from various weather conditions (cold, moisture, etc.). Make sure your shoes fit properly. If you have neuropathy (nerve damage), you may not notice that your shoes are too tight. Perform the footwear test described below. Footwear Test Use this simple test to see if your shoes fit correctly: Stand on a piece of paper. (Make sure you are standing and not sitting, because your foot changes shape when you stand.) Trace the outline of your foot. Trace the outline of your shoe. Compare the tracings: Is the shoe too narrow? Is your foot crammed into the shoe? The shoe should be at least 1/2 inch longer than your longest toe and as wide as your foot. Proper Shoe Choices The following types of shoes are best for people with diabetes Closed toes and heels Leather uppers without a seam inside At least 1/2 inch extra space at the end of your longest toe Inside of shoe should be soft with no rough areas Outer sole should be made of stiff material Shoes should be at least as wide as your feet Tips for Foot Care in Diabetes Don't wait to treat a minor foot problem if you have diabetes. Follow your health care provider's guidelines and first aid guidelines. Report foot injuries and infections to your health care provider immediately. Check water temperature with your elbow, not your foot. Do not use a heating pad on your feet. Do not cross your legs. Do not self-treat your corns, calluses, or other foot problems. Go to your health care provider or track helper to treat these conditions. documented in this encounterSelect Medical [facility]04-25-2024 History of Present illness Narrative* Irlanda Issa APRN.ENGINE SETTER - 07/26/2023 7:24 AM EDT This note was created using NoteWriter. Subjective Андрей Nickerson is a 62 year old male. 62-year-old male with PMH hypertension, diabetes mellitus type I since age 10, chronic kidney disease stage IV with recent kidney transplant in March 2021, CAD status post drug-eluting stent to theleft anterior descending artery in 2005, PCI to the LAD in 2008, drug-eluting stents to the LAD in 2011 and COVID in May 2021 with acute encephalopathy presents for illness. Acute onset of symptoms was a few days ago. +cough, productive. +nasal congestion, purulent +post nasal drainage The volume and amount was alarming this morning. +enlarged lymph nodes. +increased SOB Denies ear Denies hemoptysis. Denies CP Denies N/V/D Denies fever or chills +tobacco usage The history is provided by the patient. No speech language pathologist assistant was used. Cough This is a new problem. The current episode started more than 2 days ago. The problem occurs constantly. The problem has been gradually worsening. The cough is Productive of sputum. There has been no fever. Associated symptoms include rhinorrhea, shortness of breath and wheezing. Pertinent negativesinclude no chest pain, no chills, no sweats, no weight loss, no ear congestion, no ear pain, no headaches, no sore throat, no myalgias and no eye redness. He has tried nothing for the symptoms. The treatment provided no relief. He is a smoker. His past medical history is significant for bronchitis and COPD. His past medical history does not include pneumonia, bronchiectasis, emphysema or asthma. PAST MEDICAL HISTORY Diagnosis Date Arrhythmia CKD (chronic kidney disease) stage 3, GFR 30-59 ml/min ([facility]) [facility] Coronary artery disease 2005 s/p PCI. 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 Leon [facility] Heart attack ([facility]) Hyperlipidemia Hypertension Lacunar stroke ([facility]) Macular edema [facility] MVP (mitral valve prolapse) Pancreatitis Proliferative diabetic retinopathy(362.02) [facility] Snoring Stroke ([facility]) 2017 Tobacco abuse PAST SURGICAL HISTORY Procedure Laterality Date AVASTIN (BEVACIZUMAB) 1.25MG INTRAVITREAL INJECTION OS (LEFT EYE) x5 (04/16/2015) Dr. Babiuch CANALOPLASTY W/O STENT Right 01/12/2022 Canaloplasty 360 degrees / Trabeculotomy 180 degrees CARDIAC CATH 2005, 2008, 2012 mid / distal LAD stents DENISHA COLONOSCOPY FLX DX W/COLLJ SPEC WHEN PFRMD 10/08/2018 Colonoscopy PAST SURGICAL HISTORY OF Bilateral Keratectomy PAST SURGICAL HISTORY OF N/A 03/19/2020 Laparoscopic peritoneal dialysis catheter placement with omentopexy- Shamir Tsai MD PAST SURGICAL HISTORY OF 03/2020 PD Catheter PAST SURGICAL HISTORY OF Left 02/18/2021 Canaloplasty / Trabeculotomy TRANSPLANTATION OF KIDNEY Right 03/27/2021 XCAPSL CTRC RMVL INSJ IO LENS PROSTH W/O ECP Left 03/10/2015 Cataract Extraction with PC IOL XCAPSL CTRC RMVL INSJ IO LENS PROSTH W/O ECP Right 04/01/2015 Cataract Extraction with PC IOL ALLERGIES Patient has no known allergies. MEDICATIONS carvedilol (COREG) 12.5 mg tablet Take 1 tablet by mouth once daily. atorvastatin (LIPITOR) 40 mg tablet Take 1 tablet by mouth once daily. famotidine (PEPCID) 20 mg tablet Take 1 tablet by mouth two times a day. albuterol HFA (PROVENTIL HFA, VENTOLIN HFA) 90 mcg/actuation inhaler Inhale 2 Puffs as instructed every 6 hours as needed for wheezing/shortness of breath. amLODIPine (NORVASC) 2.5 mg tablet timolol maleate (TIMOPTIC) 0.5 % ophthalmic solution Use 1 Drop in both eyes every morning. fluticasone (FLONASE) 50 mcg/actuation nasal spray Use 2 Sprays in each nostril once daily. Rinse mouth after use. sirolimus (RAPAMUNE) 0.5 mg tablet Take 1 mg by mouth once daily. propylene glycoL (SYSTANE COMPLETE) 0.6 % drop Use 1 Drop in both eyes four times daily. docusate sodium (COLACE) 100 mg capsule Take 100 mg by mouth twice daily. mycophenolate mofetil (CELLCEPT) 250 mg capsule Take by mouth twice daily. 4 caps q 12 hours sulfamethoxazole-trimethoprim (BACTRIM DS,SEPTRA DS) 800-160 mg per tablet Take by mouth twice daily. clopidogrel (PLAVIX) 75 mg tablet Take 1 tablet by mouth once daily. tamsulosin (FLOMAX) 0.4 mg TAKE 1 CAPSULE BY MOUTH EVERYDAY AT BEDTIME blood sugar diagnostic (ONETOUCH ULTRA TEST) test strip Checking blood sugars 3- 4 times daily Insulin [place], Disposable, (BD ULTRAFINE III MINI PEN) 31 gauge x 3/16 use as directed up to four times daily, E11.9 Blood-Glucose Sensor (DEXCOM G6 SENSOR) darleen Change Sensor every 14 days Patient reading blood sugar 12 times daily Blood-Glucose Meter,Continuous (DEXCOM G4 B OPERATOR-SHARE KIT) misc One [place] device, patient checks blood sugars 12 times daily Blood-Glucose Transmitter (DEXCOM G6 TRANSMITTER) darleen 1 Each as directed. Blood-Glucose Meter,Continuous (DEXCOM G6 B OPERATOR) misc 1 Each as directed. insulin detemir U-100 (LEVEMIR FLEXTOUCH U-100 INSULN) 100 unit/mL (3 mL) inpn injection INJECT 36 UNITS SUBCUTANEOUSLY DAILY AT BEDTIME. Lancets (MICROLET LANCET) lancets Test blood sugar(s) 3-4 times daily. Dx: 250.00 . Insulin: Yes Blood-Glucose Meter (ONETOUCH ULTRA2) monitoring kit 1 Each as needed. 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 doxycycline (VIBRA-TABS) 100 mg tablet Take 1 tablet by mouth two times a day for 7 days. Gum Uilfzt-Epuamg-CUwd-Alcohol (MASTISOL ADHESIVE) dpet 1 application as directed. FAMILY HISTORY Problem Relation Age of Onset Diabetes Mother Thyroid Mother Hyperlipidemia Mother Hypertension Mother No Known Problems Father No Ocular Disease Other Social History Tobacco Use Smoking status: Former Packs/day: 1.00 Years: 30.00 Additional pack years: 0.00 Total pack years: 30.00 Types: Cigarettes Smokeless tobacco: Never Vaping Use Vaping Use: Never used Substance Use Topics Alcohol use: Not Currently Drug use: Not Currently Types: Marijuana Comment: occasional--last used cannibis 04/2019 Review of Systems Constitutional: Positive for activity change and fatigue. Negative for chills, diaphoresis and weight loss. HENT: Positive for congestion and rhinorrhea. Negative for ear pain and sore throat. Eyes: Negative for pain, discharge, redness and itching. Respiratory: Positive for cough, shortness of breath and wheezing. Cardiovascular: Negative for chest pain, palpitations and leg swelling. Gastrointestinal: Negative for abdominal pain, diarrhea and vomiting. Musculoskeletal: Negative for myalgias. Skin: Negative for color change, pallor, rash and wound. Allergic/Immunologic: Positive for immunocompromised state. Negative for environmental allergies and food allergies. Neurological: Negative for dizziness, facial asymmetry, light-headedness and headaches. Hematological: Negative for adenopathy. Does not bruise/bleed easily. Psychiatric/Behavioral: Negative for agitation and behavioral problems. Objective BP 158/64 Pulse 83 Temp 36.6 C (97.9 F) Resp 21 Wt 128.8 kg (283 lb 15.2 oz) SpO2 99% BMI 40.74 kg/m Physical Exam Vitals and nursing note reviewed. Constitutional: General: He is not in acute distress. Appearance: Normal appearance. He is obese. He is not ill-appearing, toxic- appearing or diaphoretic. HENT: Head: Normocephalic and atraumatic. Right Ear: External ear normal. Left Ear: External ear normal. Nose: Congestion present. No rhinorrhea. Mouth/Throat: Mouth: Mucous membranes are moist. Pharynx: Oropharynx is clear. Posterior oropharyngeal erythema present. No oropharyngeal exudate. Eyes: General: Right eye: No discharge. Left eye: No discharge. Extraocular Movements: Extraocular movements intact. Conjunctiva/sclera: Conjunctivae normal. Pupils: Pupils are equal, round, and reactive to light. Cardiovascular: Rate and Rhythm: Normal rate and regular rhythm. Pulses: Normal pulses. Heart sounds: Normal heart sounds. No murmur heard. No friction rub. No gallop. Pulmonary: Effort: Pulmonary effort is normal. No respiratory distress. Breath sounds: Normal breath sounds. No stridor. No wheezing, rhonchi or rales. Comments: Decreased breath sounds Chest: Chest wall: No tenderness. Abdominal: General: Abdomen is flat. There is no distension. Palpations: Abdomen is soft. There is no mass. Tenderness: There is no abdominal tenderness. There is no guarding or rebound. Hernia: No hernia is present. Musculoskeletal: General: No swelling, tenderness, deformity or signs of injury. Normal range of motion. Cervical back: Normal range of motion and neck supple. No rigidity or tenderness. Right lower leg: Edema present. Left lower leg: Edema present. Lymphadenopathy: Cervical: No cervical adenopathy. Skin: General: Skin is warm and dry. Capillary Refill: Capillary refill takes less than 2 seconds. Coloration: Skin is not jaundiced or pale. Findings: No bruising, lesion or rash. Neurological: General: No focal deficit present. Mental Status: He is alert and oriented to person, place, and time. Cranial Nerves: No cranial nerve deficit. Sensory: No sensory deficit. Motor: No weakness. Coordination: Coordination normal. Gait: Gait normal. Deep Tendon Reflexes: Reflexes normal. Psychiatric: Mood and Affect: Mood normal. Behavior: Behavior normal. Thought Content: Thought content normal. Assessment and Plan ASSESSMENT/PLAN: 1. COPD with exacerbation (HCC) - ICD9: 491.21, ICD10: J44.1 Acute onset of sx 2 days ago Progressively worsening Increased sputum production Increased SOB Lungs diminished VSS NO xray at time of exam WIll cover with Doxy F/U with PCP for continued sx. Irlanda Issa APRN.ENGINE SETTER documented in this encounterSelect [facility] History of Present illness Narrative* Handy Henderson, DO - 07/17/2023 3:12 PM EDT CC: Андрей Nickerson is a 62 year old male who presents to the office for follow up HPI: Recently he has been struggling with a toe ulcer/non healing wound. Has long standing peripheral neuropathy from his type 1 diabetes. He has been seeing [facility] Dr. Palmer for care. Has struggled with b/l leg edema. Xrays have been normal except for soft tissue swelling He is taking amlodipine per shoer for his HTN and renal protection He has a history of LVH, sees Dr. 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 Hasn't had ECHO since 2019. Does get some shortness of breath with exertion, no chest pressure or chest pain. Hx of renal transplant, renal function has been stable and LFTs are normal, no new changes in medications or diet. Trying to keep legs elevated as able , has been seen by Vascular specialist DR. Lawrence whom determined that there aren't any arterial or venous concerns for the cause of his edema. May be related to renal transplant or immunosuppressive medications that he has to take, which have to be continued indefinitely. NORBERTO, he has been using his CPAP which helps with his sleep and daytime fatigue symptoms. PAST MEDICAL HISTORY Diagnosis Date Arrhythmia CKD (chronic kidney disease) stage 3, GFR 30-59 ml/min ([facility]) [facility] Coronary artery disease 2006 s/p PCI. 3 stents total Diabetes type 1, uncontrolled 1971 nephropathy, retinopathy, dx age 10, Dr. Leon [facility] Heart attack ([facility]) Hyperlipidemia Hypertension Lacunar stroke ([facility]) Macular edema [facility] MVP (mitral valve prolapse) Pancreatitis Proliferative diabetic retinopathy(362.02) [facility] Snoring Stroke ([facility]) 2017 Tobacco abuse PAST SURGICAL HISTORY Procedure Laterality Date AVASTIN (BEVACIZUMAB) 1.25MG INTRAVITREAL INJECTION OS (LEFT EYE) x5 (04/16/2015) Dr. Connelly CANALOPLASTY W/O STENT Right 01/12/2022 Canaloplasty 360 degrees / Trabeculotomy 180 degrees CARDIAC CATH 2005, 2008, 2011 mid / distal LAD stents DENISHA COLONOSCOPY FLX DX W/COLLJ SPEC WHEN PFRMD 10/08/2018 Colonoscopy PAST SURGICAL HISTORY OF Bilateral Keratectomy PAST SURGICAL HISTORY OF N/A 03/19/2020 Laparoscopic peritoneal dialysis catheter placement with omentopexy- Shamir Tsai MD PAST SURGICAL HISTORY OF 03/2020 PD Catheter PAST SURGICAL HISTORY OF Left 02/18/2021 Canaloplasty / Trabeculotomy TRANSPLANTATION OF KIDNEY Right 03/27/2021 XCAPSL CTRC RMVL INSJ IO LENS PROSTH W/O ECP Left 03/10/2015 Cataract Extraction with PC IOL XCAPSL CTRC RMVL INSJ IO LENS PROSTH W/O ECP Right 04/01/2015 Cataract Extraction with PC IOL Current Outpatient Medications Medication Sig albuterol HFA (PROVENTIL HFA, VENTOLIN HFA) 90 mcg/actuation inhaler Inhale 2 Puffs as instructed every 6 hours as needed for wheezing/shortness of breath. amLODIPine (NORVASC) 2.5 mg tablet timolol maleate (TIMOPTIC) 0.5 % ophthalmic solution Use 1 Drop in both eyes every morning. fluticasone (FLONASE) 50 mcg/actuation nasal spray Use 2 Sprays in each nostril once daily. Rinse mouth after use. sirolimus (RAPAMUNE) 0.5 mg tablet Take 1 mg by mouth once daily. propylene glycoL (SYSTANE COMPLETE) 0.6 % drop Use 1 Drop in both eyes four times daily. docusate sodium (COLACE) 100 mg capsule Take 100 mg by mouth twice daily. mycophenolate mofetil (CELLCEPT) 250 mg capsule Take by mouth twice daily. 4 caps q 12 hours sulfamethoxazole-trimethoprim (BACTRIM DS,SEPTRA DS) 800-160 mg per tablet Take by mouth twice daily. clopidogrel (PLAVIX) 75 mg tablet Take 1 tablet by mouth once daily. Gum [place]cupez-Weytoo-MOny-Alcohol (MASTISOL ADHESIVE) dpet 1 application as directed. tamsulosin (FLOMAX) 0.4 mg TAKE 1 CAPSULE BY MOUTH EVERYDAY AT BEDTIME blood sugar diagnostic (ONETOUCH ULTRA TEST) test strip Checking blood sugars 3- 4 times daily Insulin [place], Disposable, (BD ULTRAFINE III MINI PEN) 31 gauge x 3/16 use as directed up to four times daily, E11.9 Blood-Glucose Sensor (DEXCOM G6 SENSOR) darleen Change Sensor every 14 days Patient reading blood sugar 12 times daily Blood-Glucose Meter,Continuous (DEXCOM G4 B OPERATOR-SHARE KIT) misc One [place] device, patient checks blood sugars 12 times daily Blood-Glucose Transmitter (DEXCOM G6 TRANSMITTER) darleen 1 Each as directed. Blood-Glucose Meter,Continuous (DEXCOM G6 B OPERATOR) misc 1 Each as directed. insulin detemir U-100 (LEVEMIR FLEXTOUCH U-100 INSULN) 100 unit/mL (3 mL) inpn injection INJECT 36 UNITS SUBCUTANEOUSLY DAILY AT BEDTIME. Lancets (MICROLET LANCET) lancets Test blood sugar(s) 3-4 times daily. Dx: 250.00 . Insulin: Yes Blood-Glucose Meter (ONETOUCH ULTRA2) monitoring kit 1 Each as needed. 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 carvedilol (COREG) 12.5 mg tablet Take 1 tablet by mouth once daily. atorvastatin (LIPITOR) 40 mg tablet Take 1 tablet by mouth once daily. famotidine (PEPCID) 20 mg tablet Take 1 tablet by mouth two times a day. No current facility-administered medications for this visit. ALLERGIES No Known Allergies Social History Tobacco Use Smoking status: Former Packs/day: 1.00 Years: 30.00 Additional pack years: 0.00 Total pack years: 30.00 Types: Cigarettes Smokeless tobacco: Never Vaping Use Vaping Use: Never used Substance Use Topics Alcohol use: Not Currently Drug use: Not Currently Types: Marijuana Comment: occasional--last used cannibis 04/2019 ROS: See HPI PE: BP 130/60 Pulse 80 Temp (Src) 98 (Left Tympanic) Resp 16 Wt 280 lb (127.0kg) Gen: A&OX3, NAD, non-toxic appearing HEENT: PERRLA, EOMs intact b/l, nares without drainage, pharynx without erythema, exudate, lesions,or drainage. Uvula midline. Neck: No LAD, no thyromegaly, no meningismus. CV: RRR, no murmur Lungs: CTA b/l, no wheezing Skin: No rashes, lesions, or wounds on exposed skin. + leg edema b/l to and 1-2 + pitting to upper tibial region without signs of erythema or warmth or calf pain Healing right 2nd toe ulceration ASSESSMENT/PLAN: 1. Bilateral leg edema - ICD9: 782.3, ICD10: R60.0 (primary diagnosis) Needs to increase exercise to help with manual removal of fluid, can't increase lasix due to his history of renal transplant and renal insufficiency after transplant. F/u with j2ee engineer 2. Hypercholesteremia - ICD9: 272.0, ICD10: E78.00 rx refilled. - ATORVASTATIN 40 MG TABLET 3. Moderate protein-calorie malnutrition (HCC) - ICD9: 263.0, ICD10: E44.0 stable 4. COPD with exacerbation (HCC) - ICD9: 491.21, ICD10: J44.1 stable 5. Secondary hyperparathyroidism of renal origin (HCC) - ICD9: 588.81, ICD10: N25.81 stable 6. Polycythemia vera (HCC) - ICD9: 238.4, ICD10: D45 stable 7. Aortic dilatation (HCC) - ICD9: 447.70, ICD10: I77.819 See above, f/u with Shirring Machine Operator as scheduled. 8. LVH (left ventricular hypertrophy) - ICD9: 429.3, ICD10: I51.7 See above, f/u with Shirring Machine Operator as scheduled. 9. NORBERTO (obstructive sleep apnea) - ICD9: 327.23, ICD10: G47.33 Continue CPAP/Bipap, giving him symptoms improvement 10. Immunosuppressed status (HCC) - ICD9: 279.9, ICD10: D84.9 See above, secondary to renal transplant 11. 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) - ICD9: 250.51, 362.02, ICD10: E10.3593 Managed by Contact Clerk 12. 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) - ICD9: 249.80, 707.15, ICD10: E13.621, L97.509 Managed by track helper and wound care 13. Status post kidney transplant - ICD9: V42.0, ICD10: Z94.0 See above 14. Essential hypertension - ICD9: 401.9, ICD10: I10 - Controlled - Continue current medications - Recommend home blood pressure monitoring, to bring results to next visit - Encouraged sodium restriction, DASH or Mediterranean diet - Recommend regular aerobic exercise - Discussed need for and benefit of weight loss. BMI 40.18 kg/(m^2) Handy Henderson DO Return if no improvement. Follow up with Handy Henderson DO. To ER if develops chest pain, shortness of breath. Discussed risks, benefits, alternatives, and potential side effects of medications. Patient/Guardian expressed understanding and agreed with the plan. See patient instructions. Handy Henderson DO [address] [place] [address] documented in this encounterSelect [facility]-2024 History and physical note Author Nicolas Lawrence [facility] June 21, 2023 8:17am Note Date/Time June 21, 2023 8:1 5am [facility] Medical Records Department [address] [place] [address] History & Physical Exam 06/21/23 0815 MR#: [id number] Acct: [id number] Name: АНДРЕЙ NICKERSON Rep #:[id number] : 1960 62 From: Nicolas Lawrence MD PCP: Dr. Handy Henderson, DO Status:[facility] Location: [facility] HPI - General HPI Narrative АНДРЕЙ NICKERSON, is a 62 M who presents with bilateral LE edema, chronic venous skin changes, no relief with compression. Only reflux is left below knee great saphenous. [facility] Medical History Abdominal pain Arthritis Atherosclerosis of [place] coronary artery of [place] heart without angina pectoris Cataracts, bilateral CKD (chronic kidney disease) stage 4, GFR 15-29 ml/min COVID-19 virus infection (06/10/21) CPAP (continuous positive airway pressure) dependence Diabetes mellitus type 1 Diabetes type 1, uncontrolled Diabetic polyneuropathy associated with type 1 diabetes mellitus DM2 (diabetes mellitus, type 2) Encephalopathy acute Essential hypertension Former smoker Hepatitis C test positive High cholesterol History of renal disease Hyperlipidemia Incomplete right bundle branch block Insulin dependent diabetes mellitus Kidney disease Malfunction of arteriovenous dialysis fistula NORBERTO (obstructive sleep apnea) Pancreatitis Prostate disease Sleep apnea Stroke TIA (transient ischemic attack) Tobacco abuse Toxic metabolic encephalopathy Type 1 diabetes Uncontrolled type 1 diabetes mellitus with ESRD (end-stage renal disease) Walker as ambulation aid Wears dentures Wears glasses Home Medications albuterol sulfate 90 mcg/actuation aerosol inhaler 1 - 2 puff inhalation Q6H PRNPRN Wheezing 07/24/19 [History Last Taken 10/27/19] BP cuff #1 ea 11/27/19 [Rx Last Taken Unknown] pen needle, diabetic 32 gauge x 5/32 (BD Ultra-Fine Cici Pen Needle) #400 ea 02/12/20 [Rx Last Taken Unknown] tamsulosin 0.4 mg capsule 0.4 mg PO QHS 04/22/20 [History Last Taken Unknown] glucagon 1 mg/0.2 mL subcutaneous auto-injector 1 mg subcut ONCE PRN hypoglycemic 07/28/21 [History Last Taken Unknown] propylene glycol 0.6 % eye drops (Systane Balance) 1 drp ophthalmic (eye) DAILY PRN lubricant 07/28/21 [History Last Taken Unknown] mycophenolate mofetil 250 mg capsule 500 mg PO BID 09/19/21 [History Last Taken Unknown] sulfamethoxazole 800 mg-trimethoprim 160 mg tablet 1.5 tab PO .QOD 09/19/21 [History Last Taken Unknown] blood-glucose sensor (Dexcom G6 Sensor device) #9 ea 09/22/21 [Rx Last Taken Unknown] blood-glucose transmitter (Dexcom G6 Transmitter device) #1 ea 09/22/21 [Rx Last Taken Unknown] sirolimus 0.5 mg tablet 1 mg PO DAILY 01/30/22 [History Last Taken Unknown] aspirin 325 mg tablet 325 mg PO DAILY 03/17/22 [History Last Taken 06/21/23] famotidine 20 mg tablet (Pepcid) 20 mg PO DAILY 03/17/22 [History Last Taken Unknown] atorvastatin 40 mg tablet 40 mg PO QHS #90 tabs 06/09/22 [Rx Last Taken Unknown] clopidogrel 75 mg tablet 75 mg PO DAILY #90 tabs 06/12/22 [Rx Last Taken 06/21/23] blood sugar diagnostic (Blood Glucose Test strips) #100 ea 10/13/22 [Rx Last Taken Unknown] insulin lispro 100 unit/mL subcutaneous solution (Humalog U-100 Insulin) 120 unit (1.2 mL) subcut DAILY #100 mL 10/19/22 [Rx Last Taken Unknown] blood-glucose meter #1 ea 10/23/22 [Rx Last Taken Unknown] carvedilol 12.5 mg tablet 12.5 mg PO BID #180 tabs 12/21/22 [Rx Last Taken 06/21/23] amlodipine 2.5 mg tablet 2.5 mg PO DAILY #30 tabs 02/16/23 [Rx Last Taken 06/21/23] timolol 0.5 % eye drops 1 drp ophthalmic (eye) DAILY 05/07/23 [History Last Taken Unknown] Novolog U-100 Insulin aspart 100 unit/mL subcutaneous solution (insulin aspart U-100) 120 unit (1.2 mL) continuous subcutaneous infusion .continuous #108 mL 06/04/23 [Rx Last Taken Unknown] blood sugar diagnostic (Accu-Chek Guide test strips) #100 ea 06/04/23 [Rx Last Taken Unknown] blood-glucose meter (Accu-Chek Guide Glucose Meter) #1 ea 06/04/23 [Rx Last Taken Unknown] lancing device with lancets kit (Accu-Chek Softclix Lancing Device+Lancets kit) #1 ea 06/04/23 [Rx Last Taken Unknown] Allergy/AdvReac Type Severity Reaction Status Date / Time No Known Allergies Allergy Verified 05/07/23 15:40 Family History Mother Diabetes Thyroid disorder Hypertension Hyperlipidemia Surgical History Arteriovenous fistula for hemodialysis in place, primary H/O cardiac catheterization History of bilateral cataract extraction History of coronary artery stent placement (04/21/11) History of kidney transplant (03/27/21) history of peritoneal catheter insertion (~03/2020) Kidney transplant recipient Kidney transplant recipient Problem with dialysis access (04/05/20) Status post glaucoma surgery Social History household members: spouse Smoking Status: Current some day smoker tobacco type: cigarettes how long ago did patient quit smokin months alcohol intake: current alcohol intake frequency: holidays/special occasions only substance use type: does not use caffeine: Yes Type: coffee Number of servings: 2 ROS Constitutional Constitutional: Denies chills, fever(s), frequent falls, lethargy or weakness Eyes Eyes: Denies blind spots, change in vision or loss of vision ENT HEENT: Denies bleeding gums, hoarseness or sore throat Cardiovascular Cardiovascular: Denies abdominal pain, bluish discoloration of hand/feet, chest pain with activity, claudication, cold extremities, cyanosis, dyspnea on exertion, erythema on extremities, irregular heart rhythm, leg edema, leg ulcers, numbness in extremities or weakness in extremities Respiratory/Chest Respiratory/Chest: Denies cough, excessive phlegm production, shortness of breath at rest, shortness of breath with exertion or wheezing Gastrointestinal Gastrointestinal: Denies anorexia, change in stool character, constipation, diarrhea, melena or rectal bleeding Genitourinary Genitourinary: Denies dysuria or hematuria Musculoskeletal Musculoskeletal: Denies abnormal gait Integumentary Integumentary: Reports other Details: ; Denies erythema, non-healing lesions or wounds Neurologic Neurologic: Denies abnormal speech, focal weakness, headache(s), loss of vision,numbness, paresthesias or sensory deficit Hematologic/Lymphatic Hematologic/Lymphatic: Denies easy bleeding, easy bruising or lymphadenopathy Vital Signs Vital Signs Vital Signs: Weight Weight: 280 lb Body Mass Index (BMI) 40.1 Physical Exam Const alert, oriented x3, no apparent distress and healthy appearing General Appearance: cooperative; Negative for combative or lethargic Orientation / Consciousness: awake Exam Limitations: no limitations HEENT Head and Scalp: normocephalic and atraumatic Eyes EOMs intact bilaterally General Eye: normal appearance of both eyes Neck full ROM, no lymphadenopathy, thyroid normal and No no carotid bruits General: trachea midline; Negative for lymphadenopathy or tenderness Thyroid: thyroid normal Lymph Lymphatic: Negative for no lymphadenopathy noted Resp normal respiratory effort, no use of accessory muscles and clear to auscultationbilaterally Effort and Inspection: Negative for labored, stridor or audible wheezes Cardio regular rate and regular rhythm Back/Spine Cervical Spine: cervical ROM normal Extremity full ROM, normal capillary refill and no clubbing, cyanosis or edema Skin no rashes or lesions noted and no wounds Neuro oriented x3, CN's II-XII intact bilaterally, no focal motor deficits and no sensory deficits noted Psych thought process normal, cooperative, affect normal, speech normal and activity/motor behavior normal Results Lab / Micro Data 06/21/23 07:25 06/21/23 07:44 Labs: Laboratory Results - last 24 hr 06/21/23 07:25: WBC 4.6, RBC 4.17 L, Hgb 11.3 L, Hct 37.1 L, MCV 89.0, MCH 27.1,MCHC 30.5 L, RDW Std Deviation 47.2 H, RDW Coeff of Kindra 14.6, Plt Count 220, MPV10.1, Sodium Cancelled, Potassium Cancelled, Chloride Cancelled, Carbon Dioxide Cancelled, Anion Gap Cancelled, BUN Cancelled, Creatinine Cancelled, Estim CreatClear Calc Cancelled, Est GFR (MDRD) Af Amer Cancelled, Est GFR (MDRD) Non-Af Cancelled, BUN/Creatinine Ratio Cancelled, Glucose Cancelled, Calcium Cancelled 06/21/23 07:44: Sodium 139, Potassium 4.0, Chloride 111 H, Carbon Dioxide 24.0, Anion Gap 4 L, BUN 22 H, Creatinine 2.51 H, Estim Creat Clear Calc 41.88, Est GFR (MDRD) Af Amer 34 L, Est GFR (MDRD) Non-Af 28 L, BUN/Creatinine Ratio 8.8 L,Glucose 195 H, Calcium 9.1 Assessment & Plan Assessment/Plan (1) Venous insufficiency: 06/21/23 0817 <Electronically signed by Nicolas Lawrence MD> Cosigner Signature (if applicable): CC: Dr. Nicolas Lawrence MD; Dr. Handy Henderson, DO~ Signed [facility] Work Phone: [phone] Miscellaneous Notes* Telephone Encounter - Portia Sierra LPN - 06/18/2023 8:49 AM EDT All information faxed to [facility] as requested. * Telephone Encounter - Portia Sierra LPN - 06/15/2023 3:25 PM EDT Had to request last sleep study . Awaiting this and then will fax all information back to them. * Telephone Encounter - Maya Holguin APRN.CNP - 06/15/2023 10:54 AM EDT Order is printed and signed, please fax. Thank you, Maya Holguin APRN.ENGINE SETTER * Telephone Encounter - Edna Ford LPN - 06/15/2023 8:48 AM EDT Pt called to let you know he is in need of C-pap supplies and this will be going thru [facility]. They will also be faxing a form to you per pt. Pt thinks they may have sent this please watch for it. Edna Ford LPN documented in this encounterSelect Medical Trihealth Rehabilitation Hospital03-10-2024 Miscellaneous Notes* Telephone Encounter - Mary Castanon MA - 06/10/2023 2:53 PM EDT Patient given results and verbalized understanding of instructions given. 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 Mary Castanon MA Please call patient and let him know doxycycline has now been sent into [facility]. Per provider note, wasprescribing doxycycline for sinusitis, but does not appear that it was sent to pharmacy. Naveed Pizarro PA-C documented in this encounterSelect Medical Trihealth Rehabilitation Hospital03-09-2024 History of Present illness Narrative* Kerline Laureano APRN.ENGINE SETTER - 06/09/2023 1:57 PM EST Subjective The history is provided by the patient. No speech language pathologist assistant was used. HPI Андрей Nickerson is a 62 year old male who presents today for CC of nasal congestion and pressure for 2 weeks that won't go away. He has used flonase without relief. He has a h/o sleep apnea, diabetes, kidney transplant, PVD BP 134/72 Pulse 76 Temp 36.7 C (98.1 F) Resp 16 Wt 131 kg (288 lb 12.8 oz) SpO2 98% BMI41.44 kg/m Social History Tobacco Use Smoking status: Former Packs/day: 1.00 Years: 30.00 Additional pack years: 0.00 Total pack years: 30.00 Types: Cigarettes Smokeless tobacco: Never Vaping Use Vaping Use: Never used Substance Use Topics Alcohol use: Not Currently Drug use: Not Currently Types: Marijuana Comment: occasional--last used cannibis 04/2019 PAST MEDICAL HISTORY Diagnosis Date Arrhythmia CKD (chronic kidney disease) stage 3, GFR 30-59 ml/min ([facility]) [facility] Coronary artery disease 2006 s/p PCI. 3 stents total Diabetes type 1, uncontrolled 1971 nephropathy, retinopathy, dx age 10, Dr. Carolyn TOBAR [facility] Heart attack ([facility]) Hyperlipidemia Hypertension Lacunar stroke ([facility]) Macular edema [facility] MVP (mitral valve prolapse) Pancreatitis Proliferative diabetic retinopathy(362.02) [facility] Snoring Stroke ([facility]) 2017 Tobacco abuse I have confirmed and edited as necessary, the [facility] Review of Systems Constitutional: Negative for chills, fever and malaise/fatigue. HENT: Positive for congestion and sinus pain. Negative for ear pain and sore throat. Respiratory: Negative for cough, sputum production, shortness of breath and wheezing. Cardiovascular: Negative for chest pain. Gastrointestinal: Negative for abdominal pain, diarrhea, nausea and vomiting. Musculoskeletal: Negative for myalgias. Neurological: Positive for headaches. Objective Physical Exam Vitals and nursing note reviewed. Constitutional: Appearance: He is not toxic-appearing. HENT: Head: Normocephalic and atraumatic. Right Ear: Tympanic membrane, ear canal and external ear normal. Left Ear: Tympanic membrane, ear canal and external ear normal. Nose: Mucosal edema, congestion and rhinorrhea present. Right Sinus: Maxillary sinus tenderness and frontal sinus tenderness present. Left Sinus: Maxillary sinus tenderness and frontal sinus tenderness present. Mouth/Throat: Pharynx: Uvula midline. No oropharyngeal exudate or posterior oropharyngeal erythema. Tonsils: No tonsillar abscesses. Cardiovascular: Rate and Rhythm: Normal rate and regular rhythm. Heart sounds: Normal heart sounds. Pulmonary: Effort: Pulmonary effort is normal. Breath sounds: Normal breath sounds. No decreased breath sounds, wheezing, rhonchi or rales. Lymphadenopathy: Head: Right side of head: No submental, submandibular, tonsillar or preauricular adenopathy. Left side of head: No submental, submandibular, tonsillar or preauricular adenopathy. Cervical: No cervical adenopathy. Right cervical: No superficial cervical adenopathy. Left cervical: No superficial cervical adenopathy. Neurological: Mental Status: He is alert. ASSESSMENT/PLAN: 1. Acute non-recurrent sinusitis, unspecified location - ICD9: 461.9, ICD10: J01.90 - Will begin treatment with Doxycycline - Supportive care with plenty of fluids, rest, and analgesia prn. - Follow up in one week if symptoms persist or worsen. Diagnosis and treatment plan were discussed and questions were answered to the patient's satisfaction. Pt acknowledged understanding of concepts and follow up plan. Specific signs and symptoms that would indicate the need for higher level of care were discussed indetail warranting prompt ER evaluation. Kerline Laureano APRN.MARIA M documented in this encounterSelect Medical Trihealth Rehabilitation Hospital02-29-2024 History of Present illness Narrative* Triny Palmer - 05/31/2023 2:26 PM EST FOLLOW UP PODIATRIC OFFICE VISIT Chief Complaint: This 62 year old who presents for follow up:right leg swelling Patient presents to clinic for follow-up right leg swelling. Patient is currently using anderson wrap and wearing post-op shoe Was scheduled for vascular procedure with Dr. Lawrence but did not have a ride home so the procedure was never done He has no wounds to right leg currently. PAIN EVALUATION No data found in the last 1 encounters. Hemoglobin A1C Date Value Ref Range Status 03/21/2023 6.1 (H) 4.3 - 5.6 % Final Comment: [place] [employer] guidelines indicate that patients with HgbA1c in the range 5.7-6.4% are at increased risk for development of diabetes, and intervention by lifestyle modification may be beneficial. HgbA1c greater or equal to 6.5% is considered diagnostic of diabetes. PCP: Handy Henderson DO PAST MEDICAL HISTORY Diagnosis Date Arrhythmia CKD (chronic kidney disease) stage 3, GFR 30-59 ml/min ([facility]) [facility] Coronary artery disease 2006 s/p PCI. 3 stents total Diabetes type 1, uncontrolled 1971 nephropathy, retinopathy, dx age 10, Dr. Carolyn TOBAR [facility] Heart attack ([facility]) Hyperlipidemia Hypertension Lacunar stroke ([facility]) Macular edema [facility] MVP (mitral valve prolapse) Pancreatitis Proliferative diabetic retinopathy(362.02) [facility] Snoring Stroke ([facility]) 2017 Tobacco abuse Current Outpatient Medications Medication Sig albuterol HFA (PROVENTIL HFA, VENTOLIN HFA) 90 mcg/actuation inhaler Inhale 2 Puffs as instructed every 6 hours as needed for wheezing/shortness of breath. amLODIPine (NORVASC) 2.5 mg tablet timolol maleate (TIMOPTIC) 0.5 % ophthalmic solution Use 1 Drop in both eyes every morning. fluticasone (FLONASE) 50 mcg/actuation nasal spray Use 2 Sprays in each nostril once daily. Rinse mouth after use. carvedilol (COREG) 12.5 mg tablet Take 1 tablet by mouth once daily. atorvastatin (LIPITOR) 40 mg tablet Take 1 tablet by mouth once daily. famotidine (PEPCID) 20 mg tablet Take 1 tablet by mouth twice daily. sirolimus (RAPAMUNE) 0.5 mg tablet Take 1 mg by mouth once daily. propylene glycoL (SYSTANE COMPLETE) 0.6 % drop Use 1 Drop in both eyes four times daily. docusate sodium (COLACE) 100 mg capsule Take 100 mg by mouth twice daily. mycophenolate mofetil (CELLCEPT) 250 mg capsule Take by mouth twice daily. 4 caps q 12 hours sulfamethoxazole-trimethoprim (BACTRIM DS,SEPTRA DS) 800-160 mg per tablet Take by mouth twice daily. clopidogrel (PLAVIX) 75 mg tablet Take 1 tablet by mouth once daily. tamsulosin (FLOMAX) 0.4 mg TAKE 1 CAPSULE BY MOUTH EVERYDAY AT BEDTIME aspirin, enteric coated (ECOTRIN LOW STRENGTH) 81 mg EC tablet Take 1 tablet by mouth once daily. Gum Bzjawx-Vjqscx-PGvh-Alcohol (MASTISOL ADHESIVE) dpet 1 application as directed. blood sugar diagnostic (ONETOUCH ULTRA TEST) test strip Checking blood sugars 3- 4 times daily Insulin [place], Disposable, (BD ULTRAFINE III MINI PEN) 31 gauge x 3/16 use as directed up to four times daily, E11.9 Blood-Glucose Sensor (DEXCOM G6 SENSOR) darleen Change Sensor every 14 days Patient reading blood sugar 12 times daily Blood-Glucose Meter,Continuous (DEXCOM G4 B OPERATOR-SHARE KIT) misc One [place] device, patient checks blood sugars 12 times daily Blood-Glucose Transmitter (DEXCOM G6 TRANSMITTER) darleen 1 Each as directed. Blood-Glucose Meter,Continuous (DEXCOM G6 B OPERATOR) misc 1 Each as directed. insulin detemir U-100 (LEVEMIR FLEXTOUCH U-100 INSULN) 100 unit/mL (3 mL) inpn injection INJECT 36 UNITS SUBCUTANEOUSLY DAILY AT BEDTIME. Lancets (MICROLET LANCET) lancets Test blood sugar(s) 3-4 times daily. Dx: 250.00 . Insulin: Yes Blood-Glucose Meter (ONETOUCH ULTRA2) monitoring kit 1 Each as needed. One Touch Meter Kit, Dx: E10.3219 Type1 dm with mild nonproliferative diabetic retinopathy/macular edema No current facility-administered medications for this visit. ALLERGIES No Known Allergies PAST SURGICAL HISTORY Procedure Laterality Date AVASTIN (BEVACIZUMAB) 1.25MG INTRAVITREAL INJECTION OS (LEFT EYE) x5 (04/16/2015) Dr. 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 Eyes: Following during examination. No redness or drainage. Respiratory: RR normal and nonlabored. Even breathing. No evidence of distress. Psychology: Patient is engaged during conversation. Normal affect and mood. Does not appear depressed or anxious. NVSI unchanged from previous visit. Dermatological: No open wounds present to right lower extremity Musculoskeletal/Orthopaedic: Patient has no pain to palpation of right leg Significant swelling is present to right lower extremity No calf pain ASSESSMENT: (I87.2) Venous insufficiency (primary encounter diagnosis) PLAN: Patient wounds to right foot and leg are healed and remain healed He will need to continue with compression of lower extremity as any degree of swelling places him at risk of wounds No wounds currently Will have him follow-up in 1-1.5 months for nail care Triny Palmer DPM * Tiara Dhillon Ma - 05/31/2023 2:05 PM EST AMB ROOMING INTAKE FLOWSHEET DATA Patient here today for 1 month follow up right foot. He states that he has been battling swelling of the foot, ankle and lower leg. He arrives with Anderson wraps in place today and a post op shoe. documented in this encounterSelect Medical Trihealth Rehabilitation Hospital02-27-2024 Miscellaneous Notes* Telephone Encounter - Brigitte Beaulieu - 05/29/2023 1:45 PM EST Patient has been identified by name and date of : Yes, Patient phones for refill(s): Requested Prescriptions Pending Prescriptions Disp Refills albuterol HFA (PROVENTIL HFA, VENTOLIN HFA) 90 mcg/actuation inhaler 36 g 2 Sig: Inhale 2 Puffs as instructed every 6 hours as needed for wheezing/shortness of breath. Date of last office visit in primary care: 04/17/2023 Date of next office visit in primary care: 07/17/2023 Please advise. Thank you. Brigitte Beaulieu. documented in this encounterSelect Medical Trihealth Rehabilitation Hospital02-22-2024 Miscellaneous Notes* Telephone Encounter - Favio Pizano, NATI - 05/24/2023 2:58 PM EST Phoned pt and given provider's message below with verbalized understanding. Faxed results to [facility] with note stating pcp would like pt to f/u with cardiology. Pt states his cardiologistis Dr. Shell. * Telephone Encounter - Handy Henderson DO - 05/24/2023 9:55 AM EST Please inform patient that his ECHO shows The left ventricle is normal in size. - There is moderate septal wall thickening. Mild posterior wall thickening. Left ventricular systolic function is normal. EF = 67 5% (2D biplane) Indeterminate left ventricular diastolic dysfunction. - The right ventricle is normal in size. Right ventricular systolic function is normal. - The visualized aorta is dilated with a maximal dimension of 3.8 cm. - At rest the LVOT gradient is 10 mmHg. No significant change with valsalva. - Exam was compared with the prior echocardiographic exam performed on 04/22/2019. Prior echo showed septal and posterior wall thickness of 1.8/0.9 cm respectively. Today's septal and posterior LV wall thicknesses were 1.6/1.3cm respectively. Peak LVOT gradient with valsalva and amyl were 9/18 mmHg previously. LVOT gradients were 8.3 mmHg at rest and 10.1mmHg with Valsalva on today's study. I would like him to follow up with Shirring Machine Operator Handy Henderson DO documented in this encounterSelect Medical Trihealth Rehabilitation Hospital02-21-2024 Miscellaneous Notes* Telephone Encounter - Nieves Sanchez - 05/23/2023 2:37 PM EST New office note printed and placed in [employer] inbox for signature and date. Nieves Sanchez * Telephone Encounter - Sakina Webb RN - 05/23/2023 11:10 AM EST Was this faxed over to pharmacy? Sakina Webb RN * Telephone Encounter - Sakina Webb RN - 05/14/2023 10:11 AM EST Michelle from [employer] calls and states that she needs the top sheet office note from 04/17/2023 to be signed/initial/dated and faxed back to [phone]. Office note placed in providers mailbox. Sakina Webb RN documented in this encounterSelect Medical Trihealth [facility] Hospital02-04-2024 History of Present illness Narrative* Triny Palmer - 05/06/2023 9:31 PM EST FOLLOW UP PODIATRIC OFFICE VISIT Chief Complaint: This 62 year old who presents for follow up:right 5th toe ulceration. Patient presents to clinic for follow-up right 5th toe ulceration. Regarding his 5th toe, he is doing well. Does have increasing swelling to b/l lower extremity and now has superficial sores to right leg. Was in ER due to swelling. Was recommended compression and elevation. PAIN EVALUATION No data found in the last 1 encounters. Hemoglobin A1C Date Value Ref Range Status 03/21/2023 6.1 (H) 4.3 - 5.6 % Final Comment: [place] [employer] guidelines indicate that patients with HgbA1c in the range 5.7-6.4% are at increased risk for development of diabetes, and intervention by lifestyle modification may be beneficial. HgbA1c greater or equal to 6.5% is considered diagnostic of diabetes. PCP: Handy Henderson DO PAST MEDICAL HISTORY Diagnosis Date Arrhythmia CKD (chronic kidney disease) stage 3, GFR 30-59 ml/min ([facility]) [facility] Coronary artery disease 2006 s/p PCI. 3 stents total Diabetes type 1, uncontrolled 1971 nephropathy, retinopathy, dx age 10, Dr. Leon [facility] Heart attack ([facility]) Hyperlipidemia Hypertension Lacunar stroke ([facility]) Macular edema [facility] MVP (mitral valve prolapse) Pancreatitis Proliferative diabetic retinopathy(362.02) [facility] Snoring Stroke ([facility]) 2017 Tobacco abuse Current Outpatient Medications Medication Sig amLODIPine (NORVASC) 2.5 mg tablet timolol maleate (TIMOPTIC) 0.5 % ophthalmic solution Use 1 Drop in both eyes every morning. fluticasone (FLONASE) 50 mcg/actuation nasal spray Use 2 Sprays in each nostril once daily. Rinse mouth after use. albuterol HFA (PROVENTIL HFA, VENTOLIN HFA) 90 mcg/actuation inhaler Inhale 2 Puffs as instructed every 6 hours as needed for wheezing/shortness of breath. carvedilol (COREG) 12.5 mg tablet Take 1 tablet by mouth once daily. atorvastatin (LIPITOR) 40 mg tablet Take 1 tablet by mouth once daily. famotidine (PEPCID) 20 mg tablet Take 1 tablet by mouth twice daily. sirolimus (RAPAMUNE) 0.5 mg tablet Take 1 mg by mouth once daily. propylene glycoL (SYSTANE COMPLETE) 0.6 % drop Use 1 Drop in both eyes four times daily. docusate sodium (COLACE) 100 mg capsule Take 100 mg by mouth twice daily. mycophenolate mofetil (CELLCEPT) 250 mg capsule Take by mouth twice daily. 4 caps q 12 hours sulfamethoxazole-trimethoprim (BACTRIM DS,SEPTRA DS) 800-160 mg per tablet Take by mouth twice daily. clopidogrel (PLAVIX) 75 mg tablet Take 1 tablet by mouth once daily. Gum Cvrvuu-Fwgeip-HHat-Alcohol (MASTISOL ADHESIVE) dpet 1 application as directed. tamsulosin (FLOMAX) 0.4 mg TAKE 1 CAPSULE BY MOUTH EVERYDAY AT BEDTIME blood sugar diagnostic (ONETOUCH ULTRA TEST) test strip Checking blood sugars 3- 4 times daily Insulin [place], Disposable, (BD ULTRAFINE III MINI PEN) 31 gauge x 3/16 use as directed up to four times daily, E11.9 Blood-Glucose Sensor (DEXCOM G6 SENSOR) darleen Change Sensor every 14 days Patient reading blood sugar 12 times daily Blood-Glucose Meter,Continuous (DEXCOM G4 B OPERATOR-SHARE KIT) misc One [place] device, patient checks blood sugars 12 times daily Blood-Glucose Transmitter (DEXCOM G6 TRANSMITTER) darleen 1 Each as directed. Blood-Glucose Meter,Continuous (DEXCOM G6 B OPERATOR) misc 1 Each as directed. insulin detemir U-100 (LEVEMIR FLEXTOUCH U-100 INSULN) 100 unit/mL (3 mL) inpn injection INJECT 36 UNITS SUBCUTANEOUSLY DAILY AT BEDTIME. Lancets (MICROLET LANCET) lancets Test blood sugar(s) 3-4 times daily. Dx: 250.00 . Insulin: Yes Blood-Glucose Meter (ONETOUCH ULTRA2) monitoring kit 1 Each as needed. 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 No current facility-administered medications for this visit. ALLERGIES No Known Allergies PAST SURGICAL HISTORY Procedure Laterality Date AVASTIN (BEVACIZUMAB) 1.25MG INTRAVITREAL INJECTION OS (LEFT EYE) x5 (04/16/2015) Dr. 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 Eyes: Following during examination. No redness or drainage. Respiratory: RR normal and nonlabored. Even breathing. No evidence of distress. Psychology: Patient is engaged during conversation. Normal affect and mood. Does not appear depressed or anxious. NVSI unchanged from previous visit. Dermatological: Right 5th toe ulceration both laterally and plantarly is now healed without signs of infection. There are three superficial, noninfected ulcerations of right anterior leg. Musculoskeletal/Orthopaedic: Patient has no pain to palpation of b/ lower calf + 2 pitting edema is noted to b/l lower legs Adductovarus deformity is present to right 5th toe ASSESSMENT: Skin ulcer of toe of right foot with fat layer exposed (hcc) (primary encounter diagnosis) Hammertoe of right foot Venous insufficiency Venous stasis dermatitis PLAN: Right 5th toe ulceration is now healed. Contineu with lambs wool around toe vs use of gel toe cap to avoid rubbing in shoes. Discussed superficial, noninfected ulceration of right anterior leg. The wounds were sharply debrided of nonviable tissue with dermal curette. Total debridement was approximately 0.7 cm x 0.7 cm x 1 mm deep x 3 wounds. Recommend use of anderson wrap from toes to knees. Compression is critical in helpingto reduce swelling which in turn will help to heal the ulceration. For the ulceration, will treat with a very tiny amount of topical antibiotic and nonadherent guaze. Follow-up in 3 weeks or sooner if problems arise Triny Palmer DPM * Queenie Cortés RN - 05/03/2023 2:39 PM EST Patient presents with: Right 5th Toe - Follow Up, Ulcer documented in this encounterSelect Medical Trihealth Rehabilitation Hospital02-01-2024 Instructions* Patient Instructions* Triny Palmer - 05/03/2023 2:55 PM EST Apply a small amount of topical antibiotic to right leg wound followed by nonadherent guaze (adaptic) Apply anderson wrap from toes to knee to help reduce swelling Keep legs elevated as much as possible Right 5th toe wounds now appear healed. Continue with wider sneaker to avoid rubbing. documented in this encounterSelect Medical Trihealth Rehabilitation Hospital01-24-2024 Discharge summary Author Cesar Reyna [facility] April 25, 2023 2:24pm Note Date/Time April 25, 2023 1 1:28am [facility] Medical Records Department [address] [place] [address] Emergency Department Summary 04/25/23 MR#: [id number] Acct: [id number] Name: АНДРЕЙ NICKERSON Rep #:[id number] : 1960 62 From: Cesar Reyna MD PCP: Dr. Handy Henderson, DO Status:RE G ER Location: ED HPI History of Present Illness Chief Complaint: Edema Detail of Chief Complaint: Sent to ER because of bilateral leg swelling. Informant: patient Onset/Context/Timing Onset: Weeks Context: Gradual Onset Timing: Continuous and Waxes and wanes Quality: Swelling is worse at night compared to the morning Location: Lower extremities Current Severity: Moderate Maximum Severity: Severe Worsened by: Patient is not that mobile and sits a lot. Relieved by: Better after a night's sleep Associated Symptoms Associated Symptoms: None Narrative Narrative: Patient is a 62-year-old male who is a recipient of kidney transplant who presents because of bilateral leg swelling. Leg swelling is worse at night compared to morning. He admits to not being very mobile. He does have a history of diabetes requiring insulin, obstructive sleep apnea, essential hypertension, hyperlipidemia and known coronary artery disease. He states he makes urine since the transplant, which was 1 year ago. Patient denies orthopnea or PND. Patient denies anginal type chest discomfort. Patient denies any other symptoms. He states his monthly blood work is normal. Prior similar symptoms: Yes Recent Illness/Hospitalization: No PFSH PFSH Medical History Abdominal pain Arthritis Atherosclerosis of [place] coronary artery of [place] heart without angina pectoris Cataracts, bilateral CKD (chronic kidney disease) stage 4, GFR 15-29 ml/min COVID-19 virus infection (06/10/21) CPAP (continuous positive airway pressure) dependence Diabetes mellitus type 1 Diabetes type 1, uncontrolled Diabetic polyneuropathy associated with type 1 diabetes mellitus DM2 (diabetes mellitus, type 2) Encephalopathy acute Essential hypertension Former smoker Hepatitis C test positive High cholesterol History of renal disease Hyperlipidemia Incomplete right bundle branch block Insulin dependent diabetes mellitus Kidney disease Malfunction of arteriovenous dialysis fistula NORBERTO (obstructive sleep apnea) Pancreatitis Prostate disease Sleep apnea Stroke TIA (transient ischemic attack) Tobacco abuse Toxic metabolic encephalopathy Type 1 diabetes Uncontrolled type 1 diabetes mellitus with ESRD (end-stage renal disease) Walker as ambulation aid Wears dentures Wears glasses Home Medications albuterol sulfate 90 mcg/actuation aerosol inhaler 1 - 2 puff inhalation Q6H PRNPRN Wheezing 07/24/19 [History Last Taken 10/27/19] BP cuff #1 ea 11/27/19 [Rx Last Taken Unknown] pen needle, diabetic 32 gauge x 5/32 (BD Ultra-Fine Cici Pen Needle) #400 ea 02/12/20 [Rx Last Taken Unknown] tamsulosin 0.4 mg capsule 0.4 mg PO QHS 04/22/20 [History Last Taken Unknown] glucagon 1 mg/0.2 mL subcutaneous auto-injector 1 mg subcut ONCE PRN hypoglycemic 07/28/21 [History Last Taken Unknown] propylene glycol 0.6 % eye drops (Systane Balance) 1 drp ophthalmic (eye) DAILY PRN lubricant 07/28/21 [History Last Taken Unknown] mycophenolate mofetil 250 mg capsule 500 mg PO BID 09/19/21 [History Last Taken Unknown] sulfamethoxazole 800 mg-trimethoprim 160 mg tablet 1.5 tab PO .QOD 09/19/21 [History Last Taken Unknown] blood-glucose sensor (Dexcom G6 Sensor device) #9 ea 09/22/21 [Rx Last Taken Unknown] blood-glucose transmitter (Dexcom G6 Transmitter device) #1 ea 09/22/21 [Rx Last Taken Unknown] sirolimus 0.5 mg tablet 1 mg PO DAILY 01/30/22 [History Last Taken Unknown] aspirin 325 mg tablet 325 mg PO DAILY 03/17/22 [History Last Taken Unknown] famotidine 20 mg tablet (Pepcid) 20 mg PO DAILY 03/17/22 [History Last Taken Unknown] atorvastatin 40 mg tablet 40 mg PO QHS #90 tabs 06/09/22 [Rx Last Taken Unknown] clopidogrel 75 mg tablet 75 mg PO DAILY #90 tabs 06/12/22 [Rx Last Taken Unknown] Novolog U-100 Insulin aspart 100 unit/mL subcutaneous solution (insulin aspart U-100) 120 unit (1.2 mL) continuous subcutaneous infusion .continuous #108 mL 10/06/22 [Rx Last Taken Unknown] blood sugar diagnostic (Blood Glucose Test strips) #100 ea 10/13/22 [Rx Last Taken Unknown] insulin lispro 100 unit/mL subcutaneous solution (Humalog U-100 Insulin) 120 unit (1.2 mL) subcut DAILY #100 mL 10/19/22 [Rx Last Taken Unknown] blood-glucose meter #1 ea 10/23/22 [Rx Last Taken Unknown] carvedilol 12.5 mg tablet 12.5 mg PO BID #180 tabs 12/21/22 [Rx Last Taken Unknown] Accu-Chek Katey Plus test strp (blood sugar diagnostic) #360 ea 01/09/23 [Rx Last Taken Unknown] amlodipine 2.5 mg tablet 2.5 mg PO DAILY #30 tabs 02/16/23 [Rx Last Taken Unknown] Allergy/AdvReac Type Severity Reaction Status Date / Time No Known Allergies Allergy Verified 04/25/23 10:54 Family History Mother Diabetes Thyroid disorder Hypertension Hyperlipidemia Surgical History Arteriovenous fistula for hemodialysis in place, primary H/O cardiac catheterization History of bilateral cataract extraction History of coronary artery stent placement (04/21/11) History of kidney transplant (03/27/21) history of peritoneal catheter insertion (~03/2020) Kidney transplant recipient Kidney transplant recipient Problem with dialysis access (04/05/20) Status post glaucoma surgery Social History household members: spouse Smoking Status: Current some day smoker tobacco type: cigarettes how long ago did patient quit smokin months alcohol intake: current alcohol intake frequency: holidays/special occasions only substance use type: does not use caffeine: Yes Type: coffee Number of servings: 2 ROS ROS ED Constitutional Constitutional ED: Denies chills, fever(s), subjective, sweats or weight loss Eyes Eyes: Denies blurry vision, change in vision or diplopia ENT ENT ED: Denies ear pain, rhinorrhea or sore throat Cardiovascular Cardiovascular: Denies chest pain, orthopnea, palpitations or paroxysmal nocturnal dyspnea Respiratory/Chest Respiratory/Chest: Denies cough, dyspnea, orthopnea or paroxysmal nocturnal dyspnea Gastrointestinal Gastrointestinal: Denies abdominal pain, nausea or vomiting Genitourinary Genitourinary ED: Denies dysuria, hematuria or urinary frequency Integumentary Reports rash Hematologic/Lymphatic Hematologic/Lymphatic: Reports systems reviewed and no addt'l complaints, exceptas documented EXAM Physical Exam Const Vital Signs: 04/25/23 10:52 04/25/23 12:12 04/25/23 13:00 Temperature 97.8 F Temperature Source Temporal Pulse Rate 82 74 Respiratory Rate 22 H 18 Respiratory Effort Normal Non-Labored Respiratory Pattern Normal Blood Pressure 161/90 H 154/70 H Blood Pressure Mean 113 98 Pulse Ox 100 98 Oxygen Delivery Method Room Air Room Air Positive well nourished, well developed and obese General Appearance ED: well developed and NAD; Negative for cyanotic or diaphoretic Nutritional Appearance: obese HEENT Reports moist mucous membranes HEENT Narrative: Head is atraumatic and normocephalic. Nares are patent. Eyes PERRL and EOMs intact bilaterally General Eye ED: Negative for pale conjunctiva or scleral icterus Neck no lymphadenopathy, supple and no JVD Chest Wall inspection of chest normal and palpation of chest normal Resp normal respiratory effort and clear to auscultation bilaterally Cardio regular rate, regular rhythm, S1 normal heart sound, S2 normal heart sound and no murmurs GI normal to inspection, nondistended, normoactive bowel sounds, non-tender, non-distended and no masses; Negative for hepatosplenomegaly Palpation: soft Extremity Extremity Narrative: Patient has venous stasis dermatitis and marked edema both legs. The edema is less on the right since he had an Anderson wrap. There is no evidence of cellulitis. Neuro oriented x3 and CN's II-XII intact bilaterally Sensorium / Orientation: alert Psych mental status grossly normal Skin Skin Narrative: Venous stasis dermatitis bilateral lower extremities MDM MDM MDM Narrative Medical decision making narrative: Suspect patient has dependent lymphedema. Because he has history of renal disease and is a kidney recipient will obtain Compass metabolic panel to assess BUN/creatinine and albumin and total protein as well as UA to assess for proteinuria. Lab Data Attestation: I reviewed the patient's lab results. Lab results narrative: Comprehensive metabolic panel is remarkable for a UB human of 2.9. BUN and creatinine are 19 and 2.19 which is patient's baseline. Labs: Laboratory Results - last 24 hr 04/25/23 11:24 Sodium 140 Potassium 4.1 Chloride 115 H Carbon Dioxide 24.0 Anion Gap 1 L BUN 19 H Creatinine 2.15 H Estim Creat Clear Calc 49.11 Est GFR (MDRD) Af Amer 40 L Est GFR (MDRD) Non-Af 33 L BUN/Creatinine Ratio 8.8 L Glucose 87 Calcium 8.8 Total Bilirubin 0.50 AST 22 ALT 42 Alkaline Phosphatase 156 H Total Protein 5.6 L Albumin 2.9 L Globulin 2.7 Albumin/Globulin Ratio 1.1 Treatment and Re-Evaluation :: Patient was reevaluated at 1411. He was informed of results. He was told the swelling is due to decreased activity and low albumin. He was instructed to wear compressive hose. Discharge Plan Triage Chief Complaint: Edema ED Provider: Cesar Reyna Dx/Rx/DC Orders Clinical Impression: Edema due to hypoalbuminemia, Bilateral edema of lower extremity, Essential hypertension, Chronic venous stasis dermatitis, Venous insufficiency, Atherosclerosis of [place] coronary artery of [place] heart without angina pectoris, Kidney transplant recipient Instructions: ED Lymphedema Prescriptions: No Action tamsulosin 0.4 mg capsule 0.4 mg PO QHS Patient Comments: TAKE 1 CAPSULE BY MOUTH EVERYDAY AT BEDTIME (DME) pen needle, diabetic [BD Ultra-Fine Cici Pen Needle] 32 gauge x 5/32 needle See Rx Instructions .ROUTE .MEDSUPPLY Qty: 400 2RF Rx Instructions: 4 times a day glucagon 1 mg/0.2 mL auto-injector 1 mg subcut ONCE PRN (Reason: hypoglycemic) Rx Instructions: as a single dose; may repeat once after 15 minutes if no response Systane Balance 0.6 % drops 1 drp ophthalmic (eye) DAILY PRN (Reason: lubricant) sulfamethoxazole-trimethoprim 800-160 mg tablet 1.5 tab PO .QOD aspirin 325 mg tablet 325 mg PO DAILY famotidine [Pepcid] 20 mg tablet 20 mg PO DAILY amlodipine 2.5 mg tablet 2.5 mg PO DAILY Qty: 30 11RF albuterol sulfate 1 PUFF inhaler 1 - 2 puff INHALATION Q6H PRN PRN (Reason: Wheezing) mycophenolate mofetil 250 mg capsule 500 mg PO BID Rx Instructions: 1250 AT HS sirolimus 0.5 mg tablet 1 mg PO DAILY (DME) BP cuff Qty: 1 0RF Rx Instructions: For use of monitoring BP ([facility]) Dexcom G6 Sensor Device See Rx Instructions .ROUTE .MEDSUPPLY Qty: 9 1RF Rx Instructions: As directed ([facility]) Dexcom G6 Transmitter Device See Rx Instructions .ROUTE .MEDSUPPLY Qty: 1 1RF Rx Instructions: change every 90 days atorvastatin 40 mg tablet 40 mg PO QHS Qty: 90 3RF clopidogrel 75 mg tablet 75 mg PO DAILY Qty: 90 3RF insulin aspart U-100 [Novolog U-100 Insulin aspart] 100 unit/mL solution 120 unit continuous subcutaneous infusion .continuous Qty: 108 1RF Rx Instructions: via insulin pump (DME) Blood Glucose Test Strip See Rx Instructions .Route Qty: 100 6RF Rx Instructions: twice a day insulin lispro [Humalog U-100 Insulin] 100 unit/mL solution 120 unit subcut DAILY Qty: 100 1RF Rx Instructions: via insulin pump (DME) blood-glucose meter Kit See Rx Instructions .Route Qty: 1 0RF Rx Instructions: 4x/day carvedilol 12.5 mg tablet 12.5 mg PO BID Qty: 180 3RF Rx Instructions: must administer with a meal/food (DME) Accu-Chek Katey Plus test strp Strip See Rx Instructions .ROUTE .MEDSUPPLY Qty: 360 1RF Rx Instructions: 4 times daily Primary Care Provider: Handy Henderson Referrals: Handy Henderson DO [Primary Care Provider] - 1-2 Weeks Activity Restrictions/Additional Instructions: 1. Recommend buying compression hose thigh-high. 2. Recommend elevating your feet above your nose during the day when you are not walking. 3. Recommend putting 1-2 bricks at the 40 of bed to help decrease the swelling. Disposition Disposition: Home, Self Care What to do if you have Problems For any increased pain, shortness of breath, bleeding, nausea or vomiting, chestpain, or any unexpected problems, contact your Primary Care Provider. Call [facility] ([phone]) or report to the closest Emergency Room. Call 911 if necessary. 04/25/23 1424 <Electronically signed by Cesar Reyna MD> Cosigner Signature (if applicable): CC: Dr. Handy Henderson DO ~ Signed [facility] Work Phone: 1(940) 468-325012-03-2023 History of Present illness Narrative* Triny Palmer - 03/04/2023 12:07 PM EST FOLLOW UP PODIATRIC OFFICE VISIT Chief Complaint: This 62 year old who presents for follow up:right 5th toe ulceration. Patient presents to clinic for follow-up right 5th toe ulceration. Patient is currently wearing surgical shoe and applying santyl to the right 5th toe. Denies any drainage. Denies any pain. Does have swelling to b/l lower extremity. PAIN EVALUATION No data found in the last 1 encounters. Hemoglobin A1C Date Value Ref Range Status 04/22/2022 5.4 4.3 - 5.6 % Final Comment: [place] [employer] guidelines indicate that patients with HgbA1c in the range 5.7-6.4% are at increased risk for development of diabetes, and intervention by lifestyle modification may be beneficial. HgbA1c greater or equal to 6.5% is considered diagnostic of diabetes. PCP: Handy Henderson DO PAST MEDICAL HISTORY Diagnosis Date Arrhythmia CKD (chronic kidney disease) stage 3, GFR 30-59 ml/min ([facility]) [facility] Coronary artery disease 2005 s/p PCI. 3 stents total Diabetes type 1, uncontrolled 1971 nephropathy, retinopathy, dx age 10, Dr[facility] Leon [facility] Heart attack ([facility]) Hyperlipidemia Hypertension Lacunar stroke ([facility]) Macular edema [facility] MVP (mitral valve prolapse) Pancreatitis Proliferative diabetic retinopathy(362.02) [facility] Snoring Stroke ([facility]) 2017 Tobacco abuse Current Outpatient Medications Medication Sig nystatin (MYCOSTATIN) 100,000 unit/mL suspension Take 5 mL by mouth four times daily. 1tsp swish inmouth for several minutes, then swallow (or expectorate) 4 times daily until gone. fluticasone (FLONASE) 50 mcg/actuation nasal spray Use 2 Sprays in each nostril once daily. Rinse mouth after use. albuterol HFA (PROVENTIL HFA, VENTOLIN HFA) 90 mcg/actuation inhaler Inhale 2 Puffs as instructed every 6 hours as needed for wheezing/shortness of breath. timolol maleate (TIMOPTIC) 0.5 % ophthalmic solution Use 1 Drop in both eyes every morning. cephALEXin (KEFLEX) 500 mg capsule Take 1 capsule by mouth three times daily. buPROPion XL (WELLBUTRIN XL) 150 mg 24 hr tablet Take 1 tablet by mouth once daily. carvedilol (COREG) 12.5 mg tablet Take 1 tablet by mouth once daily. atorvastatin (LIPITOR) 40 mg tablet Take 1 tablet by mouth once daily. famotidine (PEPCID) 20 mg tablet Take 1 tablet by mouth twice daily. sirolimus (RAPAMUNE) 0.5 mg tablet Take 1 mg by mouth once daily. propylene glycoL (SYSTANE COMPLETE) 0.6 % drop Use 1 Drop in both eyes four times daily. docusate sodium (COLACE) 100 mg capsule Take 100 mg by mouth twice daily. mycophenolate mofetil (CELLCEPT) 250 mg capsule Take by mouth twice daily. 4 caps q 12 hours sulfamethoxazole-trimethoprim (BACTRIM DS,SEPTRA DS) 800-160 mg per tablet Take by mouth twice daily. clopidogrel (PLAVIX) 75 mg tablet Take 1 tablet by mouth once daily. tamsulosin (FLOMAX) 0.4 mg TAKE 1 CAPSULE BY MOUTH EVERYDAY AT BEDTIME blood sugar diagnostic (ONETOUCH ULTRA TEST) test strip Checking blood sugars 3- 4 times daily Insulin [place], Disposable, (BD ULTRAFINE III MINI PEN) 31 gauge x 3/16 use as directed up to four times daily, E11.9 Blood-Glucose Sensor (DEXCOM G6 SENSOR) darleen Change Sensor every 14 days Patient reading blood sugar 12 times daily Blood-Glucose Meter,Continuous (DEXCOM G4 B OPERATOR-SHARE KIT) misc One [place] device, patient checks blood sugars 12 times daily Blood-Glucose Transmitter (DEXCOM G6 TRANSMITTER) darleen 1 Each as directed. Blood-Glucose Meter,Continuous (DEXCOM G6 B OPERATOR) misc 1 Each as directed. insulin detemir U-100 (LEVEMIR FLEXTOUCH U-100 INSULN) 100 unit/mL (3 mL) inpn injection INJECT 36 UNITS SUBCUTANEOUSLY DAILY AT BEDTIME. Lancets (MICROLET LANCET) lancets Test blood sugar(s) 3-4 times daily. Dx: 250.00 . Insulin: Yes Blood-Glucose Meter (ONETOUCH ULTRA2) monitoring kit 1 Each as needed. 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 Gum Dclssd-Mqucte-AJpy-Alcohol (MASTISOL ADHESIVE) dpet 1 application as directed. (Patient not taking: Reported on 03/01/2023) No current facility-administered medications for this visit. ALLERGIES No Known Allergies PAST SURGICAL HISTORY Procedure Laterality Date AVASTIN (BEVACIZUMAB) 1.25MG INTRAVITREAL INJECTION OS (LEFT EYE) x5 (04/16/2015) Dr. Connelly CANALOPLASTY W/O STENT Right 01/12/2022 Canaloplasty 360 degrees / Trabeculotomy 180 degrees CARDIAC CATH 2006, 2008, 2012 mid / distal LAD stents DENISHA COLONOSCOPY FLX DX W/COLLJ SPEC WHEN PFRMD 10/08/2018 Colonoscopy PAST SURGICAL HISTORY OF Bilateral Keratectomy PAST SURGICAL HISTORY OF N/A 03/19/2020 Laparoscopic peritoneal dialysis catheter placement with omentopexy- Shamir Tsai MD PAST SURGICAL HISTORY OF 03/2020 PD Catheter PAST SURGICAL HISTORY OF Left 02/18/2021 Canaloplasty / Trabeculotomy TRANSPLANTATION OF KIDNEY Right 03/27/2021 XCAPSL CTRC RMVL INSJ IO LENS PROSTH W/O ECP Left 03/10/2015 Cataract Extraction with PC IOL XCAPSL CTRC RMVL INSJ IO LENS PROSTH W/O ECP Right 04/01/2015 Cataract Extraction with PC IOL Physical Exam: OBJECTIVE: Constitutional: Pt is a well developed 62 year old male who is alert, oriented, cooperative and in no apparent distress. Eyes: Following during examination. No redness or drainage. Respiratory: RR normal and nonlabored. Even breathing. No evidence of distress. Psychology: Patient is engaged during conversation. Normal affect and mood. Does not appear depressed or anxious. NVSI unchanged from previous visit. Dermatological: Very small punctate opening of right 5th toe at pipj. No signs of infection. Musculoskeletal/Orthopaedic: Patient has no pain to palpation of right 5th toe Moderate to severe swelling is noted to b/l lower extremity There is adductovarus deformity of right 5th toe. ASSESSMENT: Skin ulcer of toe of right foot with fat layer exposed (hcc) (primary encounter diagnosis) Hammertoe of right foot Venous insufficiency Diabetic mononeuropathy associated with diabetes mellitus due to underlying condition (hcc) PLAN: Discussed ulceration of right 5th toe. Essentially, it is mostly healed with exception to a very superficial punctate opening. There are no signs of infection. I do feel the limiting factor in healing is swelling. Continue with compression via anderson wrap or compression stocking. I reviewed venous ultrasound. He does not have insufficiency on right but does have insufficiency on left. Will make referral to Dr. Bettencourt to discuss insufficiency of lower extremity. Will treat ulceration with jamar to right 5th toe. Continue with surgical shoe until healed. Discussed the hammertoe of irght 5th toe. Discussed options not limited to wider shoes/padding vs flexor tenotomy vs derotational arthroplasty vs amputation. Patient has elected to continue with conservative care. He is not interested in surgery. Continue with good control of sugars to help with healing of ulceration. Follow-up in 2 weeks Triny Palmer DPM * Delmy Beth RN - 03/01/2023 2:22 PM EST Patient presents with: Right Foot - Established Patient, Follow Up, Ulcer Patient presents for follow up of right 5th toe ulcer. JAMEY was 01/30/23. Patient's ulcer is currently a scab. States that he is still dealing with trying to get his diabetic shoes. [facility] Instructions* Patient Instructions* Triny Palmer - 03/01/2023 2:47 PM EST Will have you apply small amount of jamar to the 5th toe followed by roll guaze to right 5th toe Use surgical shoe Apply jamar daily Follow-up in 3 weeks If you have any questions or concerns, call the office at [phone] and ask to speak with nurse for podiatry Or you can call spencer at [phone] documented in this encounterSelect [facility]11-13-2023 Miscellaneous Notes* Telephone Encounter - Portia Sierra LPN - 02/12/2023 4:44 PM EST Refaxed office note to DD as requested. * Telephone Encounter - Maya Holguin APRN.CNP - 02/12/2023 11:35 AM EST Updated by note from 11/08/22 to include pt would benefit from wearing diabetic shoes. Please refax new office note. Thank you, Maya Holguin APRN.ENGINE SETTER * Telephone Encounter - Nieves Sanchez - 02/12/2023 8:50 AM EST Pt informed, verbalized understanding. Pt stating this needs to come from PCP- see TE 01/16. Nieves Sanchez * Telephone Encounter - Maya Holguin APRN.CNP - 02/09/2023 2:30 PM EST Please have pt discuss with podiatry because it looks like from Dr. Palmer's recent notes, he wants him to continue with surgical shoe due to concern of diabetes shoe being too slick of a sole. Maya Holguin APRN.MARIA M * Telephone Encounter - Diana Uriarte LPN - 02/09/2023 1:19 PM EST Michelle from [facility] calling stating they received form and ov notes back for pt's diabetic shoes. [facility] ov notes did not mention that pt would benefit from wearing diabetic shoes. Office notes were form appointment with Maya Holguin. Michelle states Dr Henderson needs to hand write on ov notes (appointment with Maya) that pt would benefit from wearing diabetic shoes needs to sign and date this. States has to be done by PCP. [facility] she only has about 1.5 weeks to get these shoes ordered for pt so charges will be on this calendar year. Please fax ov notes to [phone]. Diana Uriarte LPN documented in this encounterSelect [facility]10-17-2023 Instructions* Patient Instructions* Triny Palmer - 01/16/2023 2:11 PM EDT Continue with santyl and compression Continue with surgical shoe Diabetes Foot Care Instructions When you have diabetes, proper foot care is very important. Poor foot care may lead to amputation of a foot or leg. As a person with diabetes, you are more vulnerable to foot problems, because diabetes can damage your nerves and reduce blood flow to your feet. Here are some diabetes foot care tips to follow: Wash and Dry Your Feet Daily Use mild soaps Use warm water Pat your skin dry; do not rub. Thoroughly dry your feet. After washing, use lotion on your feet to prevent cracking. Do not put lotion between your toes. Examine Your Feet Each Day Check the tops and bottoms of your feet. Have someone else look at your feet if you cannot see them. Check for dry, cracked skin. Look for blisters, cuts, scratches, or other sores. Check for redness, increased warmth, or tenderness when touching any area of your feet. Check for ingrown toenails, corns, and calluses. If you get a blister or sore from your shoes, do not pop it. Apply a bandage and wear a differentpair of shoes. Take Care of Your Toenails Cut toenails after bathing, when they are soft. Cut toenails straight across and smooth with a nail file. Avoid cutting into the corners of toes. Do not cut cuticles. If you have neuropathy (or decreased sensation in your feet) a track helper should always cut your toenails. Be Careful When Exercising Walk and exercise in comfortable shoes. Do not exercise when you have open sores on your feet. Protect Your Feet With Shoes and Socks Never go barefoot. Always protect your feet by wearing shoes or hard-soled slippers or footwear. Avoid shoes with high heels and pointed toes. Avoid shoes that expose your toes or heels (such as open-toed shoes or sandals). These types of shoes increase your risk for injury and potential infections. Try on new footwear with the type of socks you usually wear. Do not wear new shoes for more than an hour at a time. Change your socks daily. Look and feel inside your shoes before putting them on to make sure there are no foreign objects orrough areas. Avoid tight socks. Wear natural-fiber socks (cotton, wool, or a cotton-wool blend). Wear special shoes if your health care provider recommends them. Wear shoes/boots that will protect your feet from various weather conditions (cold, moisture, etc.). Make sure your shoes fit properly. If you have neuropathy (nerve damage), you may not notice that your shoes are too tight. Perform the footwear test described below. Footwear Test Use this simple test to see if your shoes fit correctly: Stand on a piece of paper. (Make sure you are standing and not sitting, because your foot changes shape when you stand.) Trace the outline of your foot. Trace the outline of your shoe. Compare the tracings: Is the shoe too narrow? Is your foot crammed into the shoe? The shoe should be at least 1/2 inch longer than your longest toe and as wide as your foot. Proper Shoe Choices The following types of shoes are best for people with diabetes Closed toes and heels Leather uppers without a seam inside At least 1/2 inch extra space at the end of your longest toe Inside of shoe should be soft with no rough areas Outer sole should be made of stiff material Shoes should be at least as wide as your feet Tips for Foot Care in Diabetes Don't wait to treat a minor foot problem if you have diabetes. Follow your health care provider's guidelines and first aid guidelines. Report foot injuries and infections to your health care provider immediately. Check water temperature with your elbow, not your foot. Do not use a heating pad on your feet. Do not cross your legs. Do not self-treat your corns, calluses, or other foot problems. Go to your health care provider or track helper to treat these conditions. documented in this encounterSelect [facility] History of Present illness Narrative* Triny Palmer - 01/16/2023 1:57 PM EDT Last saw pcp: 11/08/22 FOLLOW UP PODIATRIC OFFICE VISIT Chief Complaint: This 62 year old who presents for follow up:right 5th toe ulceration. Patient presents to clinic for follow-up right 5th toe ulceration Patient is currently using santyl and is wearing surgical shoe. Patient feels the ulceration is improving. He was looking at diabetic shoes. He is concerned about the slickness of the sole of the shoe. PAIN EVALUATION No data found in the last 1 encounters. Hemoglobin A1C Date Value Ref Range Status 04/22/2022 5.4 4.3 - 5.6 % Final Comment: [place] [employer] guidelines indicate that patients with HgbA1c in the range 5.7-6.4% are at increased risk for development of diabetes, and intervention by lifestyle modification may be beneficial. HgbA1c greater or equal to 6.5% is considered diagnostic of diabetes. PCP: Handy Henderson DO PAST MEDICAL HISTORY Diagnosis Date Arrhythmia CKD (chronic kidney disease) stage 3, GFR 30-59 ml/min ([facility]) [facility] Coronary artery disease 2005 s/p PCI. 3 stents total Diabetes type 1, uncontrolled 1971 nephropathy, retinopathy, dx age 10, Dr. Leon [facility] Heart attack ([facility]) Hyperlipidemia Hypertension Lacunar stroke ([facility]) Macular edema [facility] MVP (mitral valve prolapse) Pancreatitis Proliferative diabetic retinopathy(362.02) [facility] Snoring Stroke ([facility]) 2017 Tobacco abuse Current Outpatient Medications Medication Sig fluticasone (FLONASE) 50 mcg/actuation nasal spray Use 2 Sprays in each nostril once daily. Rinse mouth after use. albuterol HFA (PROVENTIL HFA, VENTOLIN HFA) 90 mcg/actuation inhaler Inhale 2 Puffs as instructed every 6 hours as needed for wheezing/shortness of breath. timolol maleate (TIMOPTIC) 0.5 % ophthalmic solution Use 1 Drop in both eyes every morning. carvedilol (COREG) 12.5 mg tablet Take 1 tablet by mouth once daily. atorvastatin (LIPITOR) 40 mg tablet Take 1 tablet by mouth once daily. famotidine (PEPCID) 20 mg tablet Take 1 tablet by mouth twice daily. sirolimus (RAPAMUNE) 0.5 mg tablet Take 1 mg by mouth once daily. propylene glycoL (SYSTANE COMPLETE) 0.6 % drop Use 1 Drop in both eyes four times daily. docusate sodium (COLACE) 100 mg capsule Take 100 mg by mouth twice daily. mycophenolate mofetil (CELLCEPT) 250 mg capsule Take by mouth twice daily. 4 caps q 12 hours sulfamethoxazole-trimethoprim (BACTRIM DS,SEPTRA DS) 800-160 mg per tablet Take by mouth twice daily. clopidogrel (PLAVIX) 75 mg tablet Take 1 tablet by mouth once daily. tamsulosin (FLOMAX) 0.4 mg TAKE 1 CAPSULE BY MOUTH EVERYDAY AT BEDTIME blood sugar diagnostic (QuadriservTOUCH ULTRA TEST) test strip Checking blood sugars 3- 4 times daily Insulin [place], Disposable, (BD ULTRAFINE III MINI PEN) 31 gauge x 3/16 use as directed up to four times daily, E11.9 Blood-Glucose Sensor (DEXCOM G6 SENSOR) darleen Change Sensor every 14 days Patient reading blood sugar 12 times daily Blood-Glucose Meter,Continuous (DEXCOM G4 B OPERATOR-SHARE KIT) misc One [place] device, patient checks blood sugars 12 times daily Blood-Glucose Transmitter (DEXCOM G6 TRANSMITTER) darleen 1 Each as directed. Blood-Glucose Meter,Continuous (DEXCOM G6 B OPERATOR) misc 1 Each as directed. Lancets (MICROLET LANCET) lancets Test blood sugar(s) 3-4 times daily. Dx: 250.00 . Insulin: Yes Blood-Glucose Meter (ONETOUCH ULTRA2) monitoring kit 1 Each as needed. 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 nystatin (MYCOSTATIN) 100,000 unit/mL suspension Take 5 mL by mouth four times daily. 1tsp swish inmouth for several minutes, then swallow (or expectorate) 4 times daily until gone. (Patient not taking: Reported on 01/16/2023) cephALEXin (KEFLEX) 500 mg capsule Take 1 capsule by mouth three times daily. (Patient not taking: Reported on 01/16/2023) buPROPion XL (WELLBUTRIN XL) 150 mg 24 hr tablet Take 1 tablet by mouth once daily. (Patient not taking: Reported on 01/16/2023) Gum Mabalj-Ahswdb-GHgs-Alcohol (MASTISOL ADHESIVE) dpet 1 application as directed. insulin detemir U-100 (LEVEMIR FLEXTOUCH U-100 INSULN) 100 unit/mL (3 mL) inpn injection INJECT 36 UNITS SUBCUTANEOUSLY DAILY AT BEDTIME. No current facility-administered medications for this visit. ALLERGIES No Known Allergies PAST SURGICAL HISTORY Procedure Laterality Date AVASTIN (BEVACIZUMAB) 1.25MG INTRAVITREAL INJECTION OS (LEFT EYE) x5 (04/16/2015) Dr. 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 Eyes: Following during examination. No redness or drainage. Respiratory: RR normal and nonlabored. Even breathing. No evidence of distress. Psychology: Patient is engaged during conversation. Normal affect and mood. Does not appear depressed or anxious. Vascular: DP and PT pulses palpable. CFT is less than 5 seconds. Skin temperature is warm to warm. Swelling is noted to b/l legs. No calf pain. Dermatological: Ulceratoin #1 Location: right 5th toe Measurement 4 mm x 1 mm x 1 mm No signs of infection Toenails 1-5 b/l are elongated, thick, painful. ASSESSMENT: (L97.512) Skin ulcer of toe of right foot with fat layer exposed (HCC) (primary encounter diagnosis) (E08.41) Diabetic mononeuropathy associated with diabetes mellitus due to underlying condition (HCC) (M20.41) Hammertoe of right foot (I87.2) Venous insufficiency (B35.1) Onychomycosis (M79.675) Pain in toe of left foot (M79.674) Pain in toe of right foot (M79.89) Swelling of lower leg PLAN: Discussed ulceration of right 5th toe. Clinically, the ulceration is stable, free of infection and less depth compared to past office visits. Today, I debrided the ulceration thru subcutaneous tissue. Total debridement with tissue nipper was 4 mm x4 mm x 1 mm. Will treat with santyl as this is helping. I do believe controlling edema is most important while also minimizing pressure to the 5th toe.These two factors are important in getting wound healed. Will continue with surgcial shoe and compress the lower extremity with tubigriop vs anderson wrap vs compression stocking. Will check venous ultrasound to evaluate lower extremity vascular insufficiency Toenails 1-5 b/l debrided in length and thickness. Small bleed present to right 4th toe. Band aide applied. Triny Palmer DPM * Karime Manriquez RN - 01/16/2023 1:50 PM EDT Patient presents with: Right Foot - Established Patient: 3 week follow up on the right foot (ulcer on pinkie toe) Left Foot - Established Patient: Diabetic Patient here for a follow up. Also wonders if he can get his nails trimmed. AMB ROOMING INTAKE FLOWSHEET DATA Karime Manriquez RN documented in this encounterSelect Medical [facility]10-06-2023 Miscellaneous Notes* Telephone Encounter - Mariam Singleton LPN - 01/05/2023 4:05 PM EDT Order faxed up to mely [facility]orman. Mariam Singleton LPN * Telephone Encounter - Saray Quiñones LPN - 01/05/2023 3:20 PM EDT Patient called. Verified name and date of . States he saw Dr. Palmer last week and diabetic shoes were ordered. He is on his way to [facility] but forgot order at home and is asking if it can be sent to [facility] now in event it can be sent before he goes home and gets the order first. Aware staff is in clinic and timing is uncertain. Patient would like to have message sent in forest fire prevention manager can send first. Saray Quiñones LPN documented in this encounterSelect Medical [facility]09-25-2023 History of Present illness Narrative* Triny Palmer - 12/25/2022 10:42 PM EDT FOLLOW UP PODIATRIC OFFICE VISIT Chief Complaint: This 62 year old who presents for follow up:right 5th toe ulceration Patient presents to clinic for follow-up right 5th toe ulceration Patient is currently using santyl to the right 5th toe He is using surgical shoe He has no other complaints. PAIN EVALUATION No data found in the last 1 encounters. Hemoglobin A1C Date Value Ref Range Status 04/22/2022 5.4 4.3 - 5.6 % Final Comment: [place] [employer] guidelines indicate that patients with HgbA1c in the range 5.7-6.4% are at increased risk for development of diabetes, and intervention by lifestyle modification may be beneficial. HgbA1c greater or equal to 6.5% is considered diagnostic of diabetes. PCP: Handy Henderson DO PAST MEDICAL HISTORY Diagnosis Date Arrhythmia CKD (chronic kidney disease) stage 3, GFR 30-59 ml/min ([facility]) [facility] Coronary artery disease 2006 s/p PCI. 3 stents total Diabetes type 1, uncontrolled 1971 nephropathy, retinopathy, dx age 10, Dr. Leon [facility] Heart attack ([facility]) Hyperlipidemia Hypertension Lacunar stroke ([facility]) Macular edema [facility] MVP (mitral valve prolapse) Pancreatitis Proliferative diabetic retinopathy(362.02) [facility] Snoring Stroke ([facility]) 2017 Tobacco abuse Current Outpatient Medications Medication Sig collagenase (SANTYL) ointment Apply to affected area once daily. APPLY TO AFFECTED AREA nystatin (MYCOSTATIN) 100,000 unit/mL suspension Take 5 mL by mouth four times daily. 1tsp swish inmouth for several minutes, then swallow (or expectorate) 4 times daily until gone. fluticasone (FLONASE) 50 mcg/actuation nasal spray Use 2 Sprays in each nostril once daily. Rinse mouth after use. albuterol HFA (PROVENTIL HFA, VENTOLIN HFA) 90 mcg/actuation inhaler Inhale 2 Puffs as instructed every 6 hours as needed for wheezing/shortness of breath. timolol maleate (TIMOPTIC) 0.5 % ophthalmic solution Use 1 Drop in both eyes every morning. cephALEXin (KEFLEX) 500 mg capsule Take 1 capsule by mouth three times daily. buPROPion XL (WELLBUTRIN XL) 150 mg 24 hr tablet Take 1 tablet by mouth once daily. carvedilol (COREG) 12.5 mg tablet Take 1 tablet by mouth once daily. atorvastatin (LIPITOR) 40 mg tablet Take 1 tablet by mouth once daily. famotidine (PEPCID) 20 mg tablet Take 1 tablet by mouth twice daily. sirolimus (RAPAMUNE) 0.5 mg tablet Take 1 mg by mouth once daily. propylene glycoL (SYSTANE COMPLETE) 0.6 % drop Use 1 Drop in both eyes four times daily. docusate sodium (COLACE) 100 mg capsule Take 100 mg by mouth twice daily. mycophenolate mofetil (CELLCEPT) 250 mg capsule Take by mouth twice daily. 4 caps q 12 hours sulfamethoxazole-trimethoprim (BACTRIM DS,SEPTRA DS) 800-160 mg per tablet Take by mouth twice daily. clopidogrel (PLAVIX) 75 mg tablet Take 1 tablet by mouth once daily. Gum Toypsk-Wcccer-QGoj-Alcohol (MASTISOL ADHESIVE) dpet 1 application as directed. tamsulosin (FLOMAX) 0.4 mg TAKE 1 CAPSULE BY MOUTH EVERYDAY AT BEDTIME blood sugar diagnostic (ONETOUCH ULTRA TEST) test strip Checking blood sugars 3- 4 times daily Insulin [place], Disposable, (BD ULTRAFINE III MINI PEN) 31 gauge x 3/16 use as directed up to four times daily, E11.9 Blood-Glucose Sensor (DEXCOM G6 SENSOR) darleen Change Sensor every 14 days Patient reading blood sugar 12 times daily Blood-Glucose Meter,Continuous (DEXCOM G4 B OPERATOR-SHARE KIT) misc One [place] device, patient checks blood sugars 12 times daily Blood-Glucose Transmitter (DEXCOM G6 TRANSMITTER) darleen 1 Each as directed. Blood-Glucose Meter,Continuous (DEXCOM G6 B OPERATOR) misc 1 Each as directed. insulin detemir U-100 (LEVEMIR FLEXTOUCH U-100 INSULN) 100 unit/mL (3 mL) inpn injection INJECT 36 UNITS SUBCUTANEOUSLY DAILY AT BEDTIME. Lancets (MICROLET LANCET) lancets Test blood sugar(s) 3-4 times daily. Dx: 250.00 . Insulin: Yes Blood-Glucose Meter (ONETOUCH ULTRA2) monitoring kit 1 Each as needed. 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 No current facility-administered medications for this visit. ALLERGIES No Known Allergies PAST SURGICAL HISTORY Procedure Laterality Date AVASTIN (BEVACIZUMAB) 1.25MG INTRAVITREAL INJECTION OS (LEFT EYE) x5 (04/16/2015) Dr. 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 Eyes: Following during examination. No redness or drainage. Respiratory: RR normal and nonlabored. Even breathing. No evidence of distress. Psychology: Patient is engaged during conversation. Normal affect and mood. Does not appear depressed or anxious. NVSI unchanged from previous visit. Dermatological: Nails 1-5 b/l are normal. Webspaces clean and dry 1-4 b/l. Skin appears well hydrated and supple. good color, texture, turgor. No open lesions present. No callosities present. 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 Ulceration is free of any clinical signs of infection The ulceraiton does appear smaller Will have him continue with santyl and surgical shoe Due to history of diabetes, history of ulceration, history of deformity of right 5th toe, recommenduse of surgical shoes. These were ordered and will be used once ulceraiton is healed Xrays ordered of right 5th toe to assure no underlying bone infection Triny Palmer DPM * Delmy Beth, RN - 12/25/2022 2:09 PM EDT Toe dressed with bacitracin, gauze, abd pad. Secured with anderson wrap * Mariam Singleton LPN - 12/25/2022 1:17 PM EDT AMB ROOMING INTAKE FLOWSHEET DATA Patient presents with: Right Foot - Established Patient, Follow Up, Ulcer Mariam Singleton LPN documented in this encounterSelect Medical [facility]09-25-2023 Instructions* Patient Instructions* Triny Palmer - 12/25/2022 1:50 PM EDT Your wound now meaures 6 mm x 3 mm. Continue with santyl. Continue with surgical shoe to avoid rubbing on the 5th toe Keep wound clean and dry. Do not swim or bathe. Try to keep out of shower No signs of infection currently. No need for antibiotic. Repeat xrays today documented in this encounterSelect [facility]2023 History of Present illness Narrative* Mariam Singleton LPN - 11/28/2022 3:[address] Palmer, Андрей was provided with Ppst op shoe, size L, and instructed/educated in its application, wear, and care. All questions were answered, and patient was able to demonstrate competence with the necessary skills to utilize the above equipment. Per Dr. Palmer, Андрей was provided with 4 anderson bandage, size 3in , and instructed/educated in its application, wear, and care. All questions were answered, and patient was able to demonstrate competence with the necessary skills to utilize the above equipment. Mariam Singleton LPN * Triny Palmer - 11/28/2022 2:52 PM EDT Initial Podiatric Office Visit: Chief Complaint: This 62 year old male who presents with chief complaint:right 5th toe ulceration HPI Patient presents to clinic for evaluation of right 5th toe. Patient states that he developed a blister to the lateral aspect of right 5th toe Patient states he developed blister and went to urgent care on 11/03/22 He saw his pcp on 11/08/22 and subsequently referred here He does report some drainage PAIN EVALUATION No data found in the last 1 encounters. Hemoglobin A1C (%) Date Value 04/22/2022 5.4 03/02/2022 6.2 02/15/2022 6.6 02/01/2022 6.7 01/17/2022 6.5 01/26/2021 6.7 02/06/2019 7.7 11/20/2018 8.8 07/29/2018 7.2 01/30/2018 10.0 04/03/2017 9.5 01/26/2017 8.9 PCP: Handy Henderson DO PAST MEDICAL HISTORY Diagnosis Date Arrhythmia CKD (chronic kidney disease) stage 3, GFR 30-59 ml/min ([facility]) [facility] Coronary artery disease 2006 s/p PCI. 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 Leon [facility] Heart attack ([facility]) Hyperlipidemia Hypertension Lacunar stroke ([facility]) Macular edema [facility] MVP (mitral valve prolapse) Pancreatitis Proliferative diabetic retinopathy(362.02) [facility] Snoring Stroke ([facility]) 2017 Tobacco abuse Current Outpatient Medications Medication Sig nystatin (MYCOSTATIN) 100,000 unit/mL suspension Take 5 mL by mouth four times daily. 1tsp swish inmouth for several minutes, then swallow (or expectorate) 4 times daily until gone. fluticasone (FLONASE) 50 mcg/actuation nasal spray Use 2 Sprays in each nostril once daily. Rinse mouth after use. albuterol HFA (PROVENTIL HFA, VENTOLIN HFA) 90 mcg/actuation inhaler Inhale 2 Puffs as instructed every 6 hours as needed for wheezing/shortness of breath. timolol maleate (TIMOPTIC) 0.5 % ophthalmic solution Use 1 Drop in both eyes every morning. buPROPion XL (WELLBUTRIN XL) 150 mg 24 hr tablet Take 1 tablet by mouth once daily. carvedilol (COREG) 12.5 mg tablet Take 1 tablet by mouth once daily. atorvastatin (LIPITOR) 40 mg tablet Take 1 tablet by mouth once daily. famotidine (PEPCID) 20 mg tablet Take 1 tablet by mouth twice daily. sirolimus (RAPAMUNE) 0.5 mg tablet Take 1 mg by mouth once daily. propylene glycoL (SYSTANE COMPLETE) 0.6 % drop Use 1 Drop in both eyes four times daily. docusate sodium (COLACE) 100 mg capsule Take 100 mg by mouth twice daily. mycophenolate mofetil (CELLCEPT) 250 mg capsule Take by mouth twice daily. 4 caps q 12 hours sulfamethoxazole-trimethoprim (BACTRIM DS,SEPTRA DS) 800-160 mg per tablet Take by mouth twice daily. clopidogrel (PLAVIX) 75 mg tablet Take 1 tablet by mouth once daily. tamsulosin (FLOMAX) 0.4 mg TAKE 1 CAPSULE BY MOUTH EVERYDAY AT BEDTIME blood sugar diagnostic (nanoThericsUCH ULTRA TEST) test strip Checking blood sugars 3- 4 times daily Insulin [place], Disposable, (BD ULTRAFINE III MINI PEN) 31 gauge x 3/16 use as directed up to four times daily, E11.9 Blood-Glucose Sensor (DEXCOM G6 SENSOR) darleen Change Sensor every 14 days Patient reading blood sugar 12 times daily Blood-Glucose Meter,Continuous (DEXCOM G4 B OPERATOR-SHARE KIT) misc One [place] device, patient checks blood sugars 12 times daily Blood-Glucose Transmitter (DEXCOM G6 TRANSMITTER) darleen 1 Each as directed. Blood-Glucose Meter,Continuous (DEXCOM G6 B OPERATOR) misc 1 Each as directed. insulin detemir U-100 (LEVEMIR FLEXTOUCH U-100 INSULN) 100 unit/mL (3 mL) inpn injection INJECT 36 UNITS SUBCUTANEOUSLY DAILY AT BEDTIME. Lancets (MICROLET LANCET) lancets Test blood sugar(s) 3-4 times daily. Dx: 250.00 . Insulin: Yes Blood-Glucose Meter (ONETOUCH ULTRA2) monitoring kit 1 Each as needed. 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 cephALEXin (KEFLEX) 500 mg capsule Take 1 capsule by mouth three times daily. (Patient not taking: Reported on 11/08/2022) Gum Flieuu-Bukoow-QDpv-Alcohol (MASTISOL ADHESIVE) dpet 1 application as directed. (Patient not taking: Reported on 11/28/2022) No current facility-administered medications for this visit. ALLERGIES No Known Allergies PAST SURGICAL HISTORY Procedure Laterality Date AVASTIN (BEVACIZUMAB) 1.25MG INTRAVITREAL INJECTION OS (LEFT EYE) x5 (04/16/2015) Dr. 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 XCAPSL CTRC RMVL INSJ IO LENS PROSTH W/O ECP Left 03/10/2015 Cataract Extraction with PC IOL XCAPSL CTRC RMVL INSJ IO LENS PROSTH W/O ECP Right 04/01/2015 Cataract Extraction with PC IOL FAMILY HISTORY Problem Relation Age of Onset Diabetes Mother Thyroid Mother Hyperlipidemia Mother Hypertension Mother No Known Problems Father No Ocular Disease Other Social History Tobacco Use Smoking status: Former Packs/day: 1.00 Years: 30.00 Additional pack years: 0.00 Total pack years: 30.00 Types: Cigarettes Smokeless tobacco: Never Vaping Use Vaping Use: Never used Substance Use Topics Alcohol use: Not Currently Drug use: Not Currently Types: Marijuana Comment: occasional--last used cannibis 04/2019 REVIEW OF SYSTEMS GENERAL: Negative for Malaise, significant weight loss, fever RESPIRATORY: Negative for cough, wheezing and shortness of breath CARDIOVASCULAR: Negative for chest pain, leg swelling and palpitations GI: Negative for abdominal discomfort, blood in stools or black stools and change in bowel habits : Negative for dysuria, frequency and incontinence MUSCULOSKELETAL: Negative for joint pain or swelling, back pain, and muscle pain. SKIN: Negative for lesions, rash, and itching. HEMATOLOGY/LYMPHOLOGY Negative for prolonged bleeding, bruising easily, and swollen nodes. ENDOCRINE: Negative for cold or heat intolerance, polyuria, polydipsia and goiter. NEURO: negative Physical Exam: Constitutional: Pt is a well developed 62 year old male who is alert, oriented and cooperative Eyes: Following during examination. No redness or drainage. Respiratory: RR normal and nonlabored. Even breathing. No evidence of distress or shortness of breath. Psychology: Patient is engaged during conversation. Normal affect and mood. Does not appear depressed or anxious during encounter. Vascular: Dorsalis pedis and posterior tibial pulses faintly palpable and aubile left Capillary Fill time < 5 seconds to digits 1-5 left Skin temperature warm to warm proximal to distal left Hair growth present to digits Neurological: absent light touch/epicritic sensation Dermatological: Ulceration #1 Location: right 5th toe Measuremetn: 1 cm x 8 mm x 1 mm deep Base: fibrotic Musculoskeletal/Orthopaedic: Patient has pain to palpation of right 5th toe Small adductovarus deformity is noted b/l. Radiographs: ordered ASSESSMENT: (L97.512) Skin ulcer of toe of right foot with fat layer exposed (HCC) (primary encounter diagnosis) (R09.89) Diminished pulses in lower extremity (E08.41) Diabetic mononeuropathy associated with diabetes mellitus due to underlying condition ([facility]) PLAN: 1. History and physical examination performed. 2. Discussed skin ulceration of right 5th toe. All nonviable tissue was debrided with tissue nippers. Will treat with post-op shoe to avoid rubbing. Will treat with santyl applied daily. Wound culture performed and will resume antibiotics. Will check pvr to access perfusion although he does have clearly audible pusles, I suspect his perfusion is adequate to heal this wound 3. Disucssed close proximity of ulceration to bone and risk of bone infection. If bone infection were to develop, could be at risk of amputation 4. Discussed diabetic shoes in past and again today. Due to presence of ulceration, will order diabetic shoes for future use as a diabetic with neuropathy now with history of ulceration is of benefitto diabetic shoes 5. F/u in 1-2 weeks Triny Palmer DPM Podiatry [address] [facility] [address] Dept: [phone] Dept * Delmy Beth, NATI - 11/28/2022 2:42 PM EDT Patient presents with: Right 5th Toe - Established Patient, Ulcer Patient presents for ulcer to right 5th toe that he noticed about a month ago. States that he has some tenderness when pressure applied. Patient has finished Keflex and is still on Bactrim for it. Some sloughing noticed, slight redness around the edges of th e ulcer. documented in this encounterSelect [facility]2023 Instructions* Patient Instructions* Triny Palmer - 11/28/2022 3:07 PM EDT Cleanse wound daily with saline Apply a small amount of santyl to right 5th toe daily Secure with guaze followed by anderson wrap Wear surgical shoe at all times to avoid rubbing documented in this encounterSelect Medical Tri[facility]08-09-2023 History of Present illness Narrative* Maya Holguin APRN.ENGINE SETTER - 11/08/2022 11:20 AM EDT Chief Complaint Patient presents with: f/up on rt foot pinky toe: Developed a blister and infection HPI Андрей Nickerson is a 62 year old male who presents here today for Above Complaints.. Андрей is an established patient of Dr. Santiago DO. He is a new patient to me today. Concerns today.. Express care follow-up-- Seen at urgent care on 11/03 d/t sore on toe. Per note: 1. Sore on toe - ICD9: 709.9, ICD10: L98.9 Due to being a diabetic placed on doxycycline (altered kidney function) Mupirocin Recheck in 3 days Advise to go to ER if streaking starts Today in office... Pt reports wearing new inserts in shoes for the soles of his feet, because of these -- his foot rubs a different way in his shoe. He tries to inspect feet daily if able d/t his DM neuropathy. One dayhe had his check and noticed this blister on the top of pinky toe of R foot. Started on antibiotic from urgent care -- reports improvement but still draining pus and redness around site. Keeping wound dry. Leaving it open to air at night and covering it with bandage and antibiotic ointment during the day. Pt is worried about amputation. Pt unable to feel toe. Past medical history, appointments, medications, allergies reviewed. Previous Medical History PAST MEDICAL HISTORY Diagnosis Date Arrhythmia CKD (chronic kidney disease) stage 3, GFR 30-59 ml/min ([facility]) [facility] Coronary artery disease 2005 s/p PCI. 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 Leon [facility] Heart attack ([facility]) Hyperlipidemia Hypertension Lacunar stroke ([facility]) Macular edema [facility] MVP (mitral valve prolapse) Pancreatitis Proliferative diabetic retinopathy(362.02) [facility] Snoring Stroke ([facility]) 2017 Tobacco abuse Previous Surgical History PAST SURGICAL HISTORY Procedure Laterality Date AVASTIN (BEVACIZUMAB) 1.25MG INTRAVITREAL INJECTION OS (LEFT EYE) x5 (04/16/2015) Dr. 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 mupirocin (BACTROBAN) 2 % ointment Apply 1 application to affected area three times daily for 10 days. fluticasone (FLONASE) 50 mcg/actuation nasal spray Use 2 Sprays in each nostril once daily. Rinse mouth after use. albuterol HFA (PROVENTIL HFA, VENTOLIN HFA) 90 mcg/actuation inhaler Inhale 2 Puffs as instructed every 6 hours as needed for wheezing/shortness of breath. timolol maleate (TIMOPTIC) 0.5 % ophthalmic solution Use 1 Drop in both eyes every morning. cephALEXin (KEFLEX) 500 mg capsule Take 1 capsule by mouth three times daily. buPROPion XL (WELLBUTRIN XL) 150 mg 24 hr tablet Take 1 tablet by mouth once daily. carvedilol (COREG) 12.5 mg tablet Take 1 tablet by mouth once daily. atorvastatin (LIPITOR) 40 mg tablet Take 1 tablet by mouth once daily. famotidine (PEPCID) 20 mg tablet Take 1 tablet by mouth twice daily. sirolimus (RAPAMUNE) 0.5 mg tablet Take 1 mg by mouth once daily. propylene glycoL (SYSTANE COMPLETE) 0.6 % drop Use 1 Drop in both eyes four times daily. docusate sodium (COLACE) 100 mg capsule Take 100 mg by mouth twice daily. mycophenolate mofetil (CELLCEPT) 250 mg capsule Take by mouth twice daily. 4 caps q 12 hours sulfamethoxazole-trimethoprim (BACTRIM DS,SEPTRA DS) 800-160 mg per tablet Take by mouth twice daily. clopidogrel (PLAVIX) 75 mg tablet Take 1 tablet by mouth once daily. Gum Biunet-Jaocyq-COgk-Alcohol (MASTISOL ADHESIVE) dpet 1 application as directed. tamsulosin (FLOMAX) 0.4 mg TAKE 1 CAPSULE BY MOUTH EVERYDAY AT BEDTIME blood sugar diagnostic (ONETOUCH ULTRA TEST) test strip Checking blood sugars 3- 4 times daily Insulin [place], Disposable, (BD ULTRAFINE III MINI PEN) 31 gauge x 3/16 use as directed up to four times daily, E11.9 Blood-Glucose Sensor (DEXCOM G6 SENSOR) darleen Change Sensor every 14 days Patient reading blood sugar 12 times daily Blood-Glucose Meter,Continuous (DEXCOM G4 B OPERATOR-SHARE KIT) misc One [place] device, patient checks blood sugars 12 times daily Blood-Glucose Transmitter (DEXCOM G6 TRANSMITTER) darleen 1 Each as directed. Blood-Glucose Meter,Continuous (DEXCOM G6 B OPERATOR) misc 1 Each as directed. insulin detemir U-100 (LEVEMIR FLEXTOUCH U-100 INSULN) 100 unit/mL (3 mL) inpn injection INJECT 36 UNITS SUBCUTANEOUSLY DAILY AT BEDTIME. Lancets (MICROLET LANCET) lancets Test blood sugar(s) 3-4 times daily. Dx: 250.00 . Insulin: Yes Blood-Glucose Meter (ONETOUCH ULTRA2) monitoring kit 1 Each as needed. 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 No current facility-administered medications on file prior to visit. Social History Social History Tobacco Use Smoking status: Former Packs/day: 1.00 Years: 30.00 Total pack years: 30.00 Types: Cigarettes Smokeless tobacco: Never Vaping Use Vaping Use: Never used Substance Use Topics Alcohol use: Not Currently Drug use: Not Currently Types: Marijuana Comment: occasional--last used cannibis 04/2019 REVIEW OF SYSTEMS: as above Reviewed relevant PMHx, PSHx, Social Hx, current medications and allergies. Review of Symptoms REVIEW OF SYSTEMS See HPI. EXAM: BP 138/64 (BP Site: Left Arm, BP Position: Sitting, BP Cuff Size: Large Adult) Pulse 71 Resp 18 Wt 117.5 kg (259 lb) BMI 37.16 kg/m General Appearance: Well appearing, alert, in no acute distress, well-hydrated, well nourished.. Skin: Positives: Ulcer to top of R pinky toe with purulent drainage and erythema surrounding open wound. Full thickness Stage 3 ulcer (unable to see bone during assessment). Head: Normocephalic, no masses, lesions, tenderness or abnormalities. Extremities: No deformities, edema, skin discoloration, clubbing or cyanosis. Good capillary refill. . Musculoskeletal: No joint swelling, deformity, or tenderness. Peripheral Pulses: Normal. Health Maintenance List DTAP,TDAP,TD(1 - Tdap) Never done HEPATITIS A(1 of 2 - Risk 2-dose series) Never done SHINGRIX VACCINE(1 of 2) Never done COVID-19 VACCINE(4 - Booster for Moderna series) due on 04/04/2021 HBA1C due on 10/20/2022 INFLUENZA(1) due on 12/01/2022 LUNG CANCER SCREENING due on 01/04/2023 BP CONTROLLED (<130/80) due on 02/06/2023 LDL CHOLESTEROL due on 03/02/2023 DIABETIC FOOT EXAM due on 09/27/2023 COLORECTAL CANCER SCREENING due on 10/09/2023 DILATED RETINAL EXAM due on 10/10/2023 ANNUAL PCP TEAM CHRONIC DISEASE VISIT due on 10/18/2023 SERUM CREATININE due on 10/18/2023 HEMOGLOBIN/HEMATOCRIT due on 10/18/2023 PROSTATE CANCER SCREENING DISCUSSION due on 06/30/2025 DEPRESSION ASSESSMENT Completed HEPATITIS C SCREENING Completed HIV SCREENING Completed PNEUMOCOCCAL Completed HPV VACCINE Aged Out ASSESSMENT/PLAN: 1. 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) - ICD9: 249.80, 707.15, ICD10: E13.621, L97.509 Stage 3/4 full thickness ulcer to pinky toe. Extend antibiotic x 10 day BID. Refilled mupirocin ointment due to not receiving at pharmacy. Continue to keep area clean and dry. Discussed wound care. Move up appointment with podiatry for assessment. - MUPIROCIN 2 % TOPICAL OINTMENT - DOXYCYCLINE MONOHYDRATE 100 MG TABLET RTO as needed. Prescription instructions reviewed with patient as applicable. Potential red flag symptoms discussed with the patient. Reviewed appropriate action plan to take if red flag symptoms occur. Patient agreeable to treatment plan. Maya Salas APRN.ENGINE SETTER [address] [place] [address] documented in this encounterSelect Medical [facility]08-04-2023 Instructions* Patient Instructions* Kerline Laureano APRN.CNP - 11/03/2022 2:49 PM EDT Wound Care - Keep the area clean and dry -Clean with soap and water . Apply mupirocin ointment 2 - 3 times a day. -Tylenol or Ibuprofen for discomfort Recheck in 2 days Go to ER if develops red streaking up foot documented in this encounterSelect Medical [facility]08-04-2023 History of Present illness Narrative* Kerline Laureano APRN.CNP - 11/03/2022 2:48 PM EDT Images from the original note were not included. Subjective The history is provided by the patient. No speech language pathologist assistant was used. HPI Андрей Nickerson is a 62 year old male who presents today for CC of sore on pinky toe of right foot. He sees podiatry and had new heel inserts put in shoe due to plantar fascitis. He denies any streaking, BS have been stable. BP 130/78 Pulse 72 Temp 36.4 C (97.6 F) Resp 20 Wt 117 kg (258 lb) SpO2 98% BMI 37.02 kg/m Social History Tobacco Use Smoking status: Former Packs/day: 1.00 Years: 30.00 Total pack years: 30.00 Types: Cigarettes Smokeless tobacco: Never Vaping Use Vaping Use: Never used Substance Use Topics Alcohol use: Not Currently Drug use: Not Currently Types: Marijuana Comment: occasional--last used cannibis 04/2019 PAST MEDICAL HISTORY Diagnosis Date Arrhythmia CKD (chronic kidney disease) stage 3, GFR 30-59 ml/min ([facility]) [facility] Coronary artery disease 2006 s/p PCI. 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 Leon [facility] Heart attack ([facility]) Hyperlipidemia Hypertension Lacunar stroke (HCC) Macular edema [facility] MVP (mitral valve prolapse) Pancreatitis Proliferative diabetic retinopathy(362.02) [facility] Snoring Stroke (HCC) 2017 Tobacco abuse I have confirmed and edited as necessary, the [facility] Review of Systems Constitutional: Negative for chills and fever. Musculoskeletal: Negative for joint pain and myalgias. Skin: Negative for itching and rash. Sore on toe, pinky left All other systems reviewed and are negative. Objective Physical Exam Vitals and nursing note reviewed. Pulmonary: Effort: Pulmonary effort is normal. Musculoskeletal: Right foot: Tenderness (sore on toe, redness in toe, no streaking to foot) present. Left foot: Normal. Feet: Feet: Comments: See images in chart Skin: General: Skin is warm and dry. Neurological: Mental Status: He is alert and oriented to person, place, and time. Psychiatric: Mood and Affect: Affect normal. ASSESSMENT/PLAN: 1. Sore on toe - ICD9: 709.9, ICD10: L98.9 Due to being a diabetic placed on doxycycline (altered kidney function) Mupirocin Recheck in 3 days Advise to go to ER if streaking starts Diagnosis and treatment plan were discussed and questions were answered to the patient's satisfaction. Pt acknowledged understanding of concepts and follow up plan. Specific signs and symptoms that would indicate the need for higher level of care were discussed indetail warranting prompt ER evaluation. Kerline Laureano APRN.MARIA M documented in this encounterSelect Medical [facility]07-19-2023 History of Present illness Narrative* Handy Henderson, - 10/18/2022 7:21 AM EDT CC: Андрей Nickerson is a 62 year old male who presents to the office for follow up HPI: Recent fall and injury of left hand in July. Was seen by Evy Carballo and had testing completed.Was found to have 4th metacarpal fracture of hand. Seen by Orthopedics Dr. Oliver. He feels symptoms have improved since then. HTN, has been well controlled, taking medications as prescribed. Denies any CP or dyspnea or dizziness/LH or syncope. Edema is well controlled. Hx of renal transplant, recently saw transplant team and having labs obtained in September. Taking immune suppressant medications without difficulty Type 1 diabetes, insulin pump use. Seeing Contact Clerk regularly. Hemoglobin A1C Date Value Ref Range Status 04/22/2022 5.4 4.3 - 5.6 % Final Comment: [place] [employer] guidelines indicate that patients with HgbA1c in the range 5.7-6.4% are at increased risk for development of diabetes, and intervention by lifestyle modification may be beneficial. HgbA1c greater or equal to 6.5% is considered diagnostic of diabetes. 03/02/2022 6.2 (H) 4.3 - 5.6 % Final Comment: [place] [employer] guidelines indicate that patients with HgbA1c in the range 5.7-6.4% are at increased risk for development of diabetes, and intervention by lifestyle modification may be beneficial. HgbA1c greater or equal to 6.5% is considered diagnostic of diabetes. 02/15/2022 6.6 (H) 4.3 - 5.6 % Final Comment: [place] [employer] guidelines indicate that patients with HgbA1c in the range 5.7-6.4% are at increased risk for development of diabetes, and intervention by lifestyle modification may be beneficial. HgbA1c greater or equal to 6.5% is considered diagnostic of diabetes. 02/01/2022 6.7 (H) 4.3 - 5.6 % Final Comment: [place] [employer] guidelines indicate that patients with HgbA1c in the range 5.7-6.4% are at increased risk for development of diabetes, and intervention by lifestyle modification may be beneficial. HgbA1c greater or equal to 6.5% is considered diagnostic of diabetes. 01/17/2022 6.5 (H) 4.3 - 5.6 % Final Comment: [place] [employer] guidelines indicate that patients with HgbA1c in the range 5.7-6.4% are at increased risk for development of diabetes, and intervention by lifestyle modification may be beneficial. HgbA1c greater or equal to 6.5% is considered diagnostic of diabetes. PAST MEDICAL HISTORY Diagnosis Date Arrhythmia CKD (chronic kidney disease) stage 3, GFR 30-59 ml/min ([facility]) [facility] Coronary artery disease 2005 s/p PCI. 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 Carolyn TOBAR [facility] Heart attack ([facility]CC) Hyperlipidemia Hypertension Lacunar stroke ([facility]) Macular edema [facility] MVP (mitral valve prolapse) Pancreatitis Proliferative diabetic retinopathy(362.02) [facility] Snoring Stroke ([facility]) 2017 Tobacco abuse PAST SURGICAL HISTORY Procedure Laterality Date AVASTIN (BEVACIZUMAB) 1.25MG INTRAVITREAL INJECTION OS (LEFT EYE) x5 (04/16/2015) Dr. Connelly CANALOPLASTY W/O STENT Right 01/12/2022 Canaloplasty 360 degrees / Trabeculotomy 180 degrees CARDIAC CATH 2005, 2008, 2011 mid / distal LAD stents DENISHA COLONOSCOPY FLX DX W/COLLJ SPEC WHEN PFRMD 10/08/2018 Colonoscopy PAST SURGICAL HISTORY OF Bilateral Keratectomy PAST SURGICAL HISTORY OF N/A 03/19/2020 Laparoscopic peritoneal dialysis catheter placement with omentopexy- Shamir Tsai MD PAST SURGICAL HISTORY OF 03/2020 PD Catheter PAST SURGICAL HISTORY OF Left 02/18/2021 Canaloplasty / Trabeculotomy TRANSPLANTATION OF KIDNEY Right 03/27/2021 XCAPSL CTRC RMVL INSJ IO LENS PROSTH W/O ECP Left 03/10/2015 Cataract Extraction with PC IOL XCAPSL CTRC RMVL INSJ IO LENS PROSTH W/O ECP Right 04/01/2015 Cataract Extraction with PC IOL Current Outpatient Medications Medication Sig albuterol HFA (PROVENTIL HFA, VENTOLIN HFA) 90 mcg/actuation inhaler Inhale 2 Puffs as instructed every 6 hours as needed for wheezing/shortness of breath. timolol maleate (TIMOPTIC) 0.5 % ophthalmic solution Use 1 Drop in both eyes every morning. cephALEXin (KEFLEX) 500 mg capsule Take 1 capsule by mouth three times daily. buPROPion XL (WELLBUTRIN XL) 150 mg 24 hr tablet Take 1 tablet by mouth once daily. carvedilol (COREG) 12.5 mg tablet Take 1 tablet by mouth once daily. atorvastatin (LIPITOR) 40 mg tablet Take 1 tablet by mouth once daily. famotidine (PEPCID) 20 mg tablet Take 1 tablet by mouth twice daily. sirolimus (RAPAMUNE) 0.5 mg tablet Take 1 mg by mouth once daily. propylene glycoL (SYSTANE COMPLETE) 0.6 % drop Use 1 Drop in both eyes four times daily. docusate sodium (COLACE) 100 mg capsule Take 100 mg by mouth twice daily. mycophenolate mofetil (CELLCEPT) 250 mg capsule Take by mouth twice daily. 4 caps q 12 hours sulfamethoxazole-trimethoprim (BACTRIM DS,SEPTRA DS) 800-160 mg per tablet Take by mouth twice daily. clopidogrel (PLAVIX) 75 mg tablet Take 1 tablet by mouth once daily. tamsulosin (FLOMAX) 0.4 mg TAKE 1 CAPSULE BY MOUTH EVERYDAY AT BEDTIME blood sugar diagnostic (ONETOUCH ULTRA TEST) test strip Checking blood sugars 3- 4 times daily Insulin [place], Disposable, (BD ULTRAFINE III MINI PEN) 31 gauge x 3/16 use as directed up to four times daily, E11.9 Blood-Glucose Sensor (DEXCOM G6 SENSOR) darleen Change Sensor every 14 days Patient reading blood sugar 12 times daily Lancets (MICROLET LANCET) lancets Test blood sugar(s) 3-4 times daily. Dx: 250.00 . Insulin: Yes Blood-Glucose Meter (ONETOUCH ULTRA2) monitoring kit 1 Each as needed. One Touch Meter Kit, Dx: E10.3219 Type1 dm with mild nonproliferative diabetic retinopathy/macular edema fluticasone (FLONASE) 50 mcg/actuation nasal spray Use 2 Sprays in each nostril once daily. Rinse mouth after use. Gum Pufslt-Lmusrs-ZQlu-Alcohol (MASTISOL ADHESIVE) dpet 1 application as directed. Blood-Glucose Meter,Continuous (DEXCOM G4 B OPERATOR-SHARE KIT) misc One [place] device, patient checks blood sugars 12 times daily Blood-Glucose Transmitter (DEXCOM G6 TRANSMITTER) darleen 1 Each as directed. Blood-Glucose Meter,Continuous (DEXCOM G6 B OPERATOR) misc 1 Each as directed. insulin detemir U-100 (LEVEMIR FLEXTOUCH U-100 INSULN) 100 unit/mL (3 mL) inpn injection INJECT 36 UNITS SUBCUTANEOUSLY DAILY AT BEDTIME. aspirin, enteric coated (ECOTRIN LOW STRENGTH) 81 mg EC tablet Take 1 tablet by mouth once daily. No current facility-administered medications for this visit. ALLERGIES No Known Allergies Social History Tobacco Use Smoking status: Former Packs/day: 1.00 Years: 30.00 Total pack years: 30.00 Types: Cigarettes Smokeless tobacco: Never Vaping Use Vaping Use: Never used Substance Use Topics Alcohol use: Not Currently Drug use: Not Currently Types: Marijuana Comment: occasional--last used cannibis 04/2019 ROS: See HPI PE: BP 150/74 Pulse 80 Temp (Src) 97.7 (Left Tympanic) Resp 16 Wt 249 lb (112.9kg) Gen: A&OX3, NAD, non-toxic appearing HEENT: PERRLA, EOMs intact b/l, nares without drainage, pharynx without erythema, exudate, lesions,or drainage. Uvula midline. Neck: No LAD, no thyromegaly, no meningismus. CV: RRR, no murmur Lungs: CTA b/l, no wheezing Skin: No rashes, lesions, or wounds on exposed skin. Insulin pump in place abdomen Central obesity No edema, normal peripheral pulses ASSESSMENT/PLAN: 1. Left hand pain - ICD9: 729.5, ICD10: M79.642 (primary diagnosis) Resolved, recent fracture 4th metacarpal 2. Seasonal allergies - ICD9: 477.9, ICD10: J30.2 rx refilled, stable - FLUTICASONE PROPIONATE 50 MCG/ACTUATION NASAL SPRAY,SUSPENSION 3. Hypercholesteremia - ICD9: 272.0, ICD10: E78.00 Stable, recheck labs 4. Status post kidney transplant - ICD9: V42.0, ICD10: Z94.0 - f/u with shoer/team, stable symptoms, having labs obtained. 5. Essential hypertension - ICD9: 401.9, ICD10: I10 - Controlled - Continue current medications - Recommend home blood pressure monitoring, to bring results to next visit - Encouraged sodium restriction, DASH or Mediterranean diet - Recommend regular aerobic exercise - Discussed need for and benefit of weight loss. BMI 35.73 kg/(m^2) 6. 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 Bilateral leg edema - ICD9: 782.3, ICD10: R60.0 Resolved after transplant 8. Obesity, Class II, BMI 35-39.9 - ICD9: 278.00, ICD10: E66.9 Stable - Behavioral intervention, - PSMF, - Eat well program, and - Continue current medications Handy Henderson, DO Return if no improvement. Follow up with Handy Henderson DO. To ER if develops chest pain, shortness of breath Discussed risks, benefits, alternatives, and potential side effects of medications. Patient/Guardian expressed understanding and agreed with the plan. See patient instructions. Handy Henderson DO [address] [place] [address] documented in this encounterSelect Medical [facility]health [facility]07-14-2023 Miscellaneous Notes* Telephone Encounter - Brigitte Beaulieu - 10/13/2022 11:30 AM EDT Patient is calling on status of medication. * Telephone Encounter - Portia Sierra LPN - 10/12/2022 12:43 PM EDT JAMEY--07/24/22 NOV--10/17/22 LAST REFILL--05/10/22 36 G WITH 2 REFILLS LAST LABS--09/21/22 * Telephone Encounter - Karime Vicente - 10/12/2022 12:31 PM EDT Patient has been identified by name and date of : Yes Last office visit in this department: 07/24/2022 RX INSTRUCTIONS: Patient aware RX will be sent to pharmacy. No need to notify patient. Patient phones requesting refills as follows: Requested Prescriptions Pending Prescriptions Disp Refills albuterol HFA (PROVENTIL HFA, VENTOLIN HFA) 90 mcg/actuation inhaler 36 g 2 Sig: Inhale 2 Puffs as instructed every 6 hours as needed for wheezing/shortness of breath. Please review and advise. Karime Vicente documented [facility] History of Present illness Narrative* George Pacheco MD - 10/09/2022 11:00 AM EDT ASSESSMENT/PLAN: 1. Primary open angle glaucoma (POAG) of right eye, mild stage - ICD9: 365.11, 365.71, ICD10: H40.1111 (primary diagnosis) 2. Primary open angle glaucoma (POAG) of left eye, mild stage - ICD9: 365.11, 365.71, ICD10: H40.1121 3. Optic cupping of both eyes - ICD9: 377.14, ICD10: H47.233 The nature of glaucoma was discussed, with emphasis on the non-reversible damage to the optic nerve. Treatment options and the importance of regular examinations and testing were covered in detail, as well as the consequences of non- compliance. The patient was given the opportunity to ask questions. Continue: Current Ophthalmic Meds propylene glycoL (SYSTANE COMPLETE) 0.6 % drop Use 1 Drop in both eyes four times daily. timolol maleate (TIMOPTIC) 0.5 % ophthalmic solution Use 1 Drop in both eyes every morning. 4. 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 I have confirmed and edited as necessary the relevant ophthalmic history, review of systems, surgical history, and ophthalmological examination findings as obtained by the ophthalmic technical staff.I have seen and examined Андрей Nickerson. I have discussed the examination findings, diagnosis, and treatment options with Андрей Nickerson and/or his family. I have also reviewed and agree with the assessment and plan as stated above and agree with all its relevant components. Igave the patient the opportunity to ask questions about the findings, diagnosis, and treatment options. George Pacheco MD documented in this encounterSelect [facility] Instructions* Patient Instructions* George Pacheco MD - 10/09/2022 11:00 AM EDT The nature of glaucoma was discussed, with emphasis on the non-reversible damage to the optic nerve. Treatment options and the importance of regular examinations and testing were covered in detail, as well as the consequences of non- compliance. The patient was given the opportunity to ask questions. Continue: Current Ophthalmic Meds propylene glycoL (SYSTANE COMPLETE) 0.6 % drop Use 1 Drop in both eyes four times daily. timolol maleate (TIMOPTIC) 0.5 % ophthalmic solution Use 1 Drop in both eyes every morning. Please keep your blood sugar under good control to minimize risk of ocular complications from diabetes. If you have any questions please contact our office at [phone]. After office hours or on the weekend, please call Dr. Pacheco on his cell phone at [phone]. documented in this encounterSelect [facility] History of Present illness Narrative* Hanane Ramesh RN - 10/05/2022 3:00 PM EDT Images from the original note were not included. PREP SHEET FOR NEPHROLOGY CLINIC Patient Name: Андрей Nickerson On Site Coordinator: Андрей Reyes Date of Kidney Transplant: 03/27/2021 1y 6m Primary Disease: Diabetes Mellitus - Type I Transplant Cafe Lead: Sharon Gómez Primary Care physician: Handy Henderson Last Transplant Appointment: 03/16/2022 MONITORING: MONITORING COMMENTS DGF Yes HLA Match: A1 B1 DR0 Living Donor? No [place] Recipient? No [place] ID Follow-up Testing 04/24/2021 to 05/22/2021 Date labs Complete: 05/02/2021 EBV IgG Donor / Recipient R+ CMV IgG Donor / Recipient: D+ / R- On Valcyte or frequent labs? Valcyte 450 mg po every other day, then PCR monthly X 3 Ureteral Stent? yes Removed / Removal Sched? 04/20/2021 Hepatitis C+/ADAMARIS+ donor? yes [place] Status In Protocol Box yes Has recipient converted to Hep C+? Yes If yes - obtain HCV genotype for PA process for Hep C tx Genotype 1a PA for HCV submitted? Yes Submitted on 04/13/2021 Approved 04/20/2021 for [facility] Authorization number: [id number] Patient started treatment? 04/26/2021(05/02) If contacted by pharmacy: Hep C PCR- one month after start of treatment 05/27/2021 Hep C PCR at completion of HCV therapy collected on: 07/19/21 Completed on 07/06/21 Hep C PCR 3 months post completion collected on: 10/11/21(10/13) IMMUNOSUPPRESSION AND LABS: Current Immunosuppressive Medication(s) Immunosuppressive Agents Mycophenolate mofetil (CELLCEPT) 250 MG capsule TAKE 4 CAPSULES BY MOUTH EVERY 12 HOURS. sirolimus (RAPAMUNE) 0.5 MG tablet Take 2 tablets by mouth daily. I/S levels: Lab Results Component Value Date SIROLIMUS 4.8 09/21/2022 SIROLIMUS 6.2 08/16/2022 SIROLIMUS 8.2 07/17/2022 CHEMISTRY: Lab Results Component Value Date CREATSERUM 2.23 09/21/2022 CREATSERUM 2.66 08/16/2022 CREATSERUM 2.41 07/17/2022 HEMATOLOGY: Lab Results Component Value Date WBC 4.46 09/21/2022 WBC 3.82 08/16/2022 WBC 4.39 07/17/2022 Lab Results Component Value Date HGB 12.3 09/21/2022 HGB 12.1 08/16/2022 HGB 12.4 07/17/2022 IMMUNOLOGY: Lab Results Component Value Date CMVPCR not detected 11/21/2021 CMVPCR not detected 10/24/2021 CMVPCR <50 06/15/2021 EBVBYPCR <1,000 06/15/2021 BKVIRALP <500 03/16/2022 BKVIRALP 746 (H) 05/11/2021 CURRENT MEDICATIONS: Acetaminophen, Albuterol, Aspirin, Atorvastatin, Clopidogrel, Dexcom G6 Sensor, Dexcom G6 Transmitter, Docusate, GLUCOSE MONITOR LANCETS PRESCRIPTION, Glucagon Emergency, Mycophenolate mofetil, ONE TOUCH ULTRASOFT LANCETS, Propylene Glycol, Senna, Sirolimus, Sulfamethoxazole-trimethoprim, Tamsulosin HCl, carveDILOL, glucagon, glucose blood test strips, insulin aspart, omeprazole, and prednisoLONE acetate [facility] Change in lab frequency / new order today: no Labs needed in clinic today? no COORDINATOR NOTES: * Migel Gómez MD - 10/05/2022 3:00 PM EDT Images from the original note were not included. Today we were happy to see Андрей Nickerson at [facility] Post Transplant Office for evaluation and management of immunosuppression and associated conditions in the setting of solid organ transplantation. As you may be aware Mr. Nickerson is a 62 y.o. 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 He received a Donation after Brain donor Kidney transplanton 03/27/21. The patient s problem, allergy and medication lists have been reviewed and updated today. REVIEW OF SYSTEMS: The patient currently endorses no complains and denies chest pain, shortness of breath, nausea or emesis. Otherwise all other systems are per HPI or negative. MEDICATIONS: Current Outpatient Medications Medication Sig acetaminophen 325 MG tablet Take 2 tablets by mouth every 6 hours as needed for Mild Pain or Pain (breakthrough). albuterol 108 (90 Base) MCG/ACT Aero Soln inhaler Inhale 1-2 puffs every 6 hours as needed for Shortness of Breath. Aspirin [address] tablet Take 1 tablet by mouth daily. atorvastatin 40 MG tablet take 1 Tab by mouth daily. carveDILOL 12.5 MG tablet Take 1 tablet by mouth every 12 hours. clopidogrel 75 MG tablet take 1 Tab by mouth daily. Dexcom G6 Sensor Misc Change Sensor every 14 days Patient reading blood sugar 12 times daily Dexcom G6 Transmitter Misc CHANGE EVERY 90 DAYS docusate 100 MG capsule Take 1 capsule by mouth 2 times daily as needed for Constipation. Hold for loose stool Glucagon, rDNA, (Glucagon Emergency) 1 MG Kit Inject 1 Dose as directed as needed (Low glucose levels.). Glucagon, rDNA, 1 MG IJ KIT by Subcutaneous route. Use as directed (Patient taking differently: Inject 1 mg under the skin as needed for Low blood sugar.) glucose blood test strips (ONE TOUCH TEST STRIPS) STRP PT TESTING 6XS DAILY GLUCOSE MONITOR LANCETS PRESCRIPTION DM1 on Pump insulin aspart (NOVOLOG) 100 UNIT/ML SC SOLN Per pump - uses approximately 50-70 per day. Mycophenolate mofetil (CELLCEPT) 250 MG capsule TAKE 4 CAPSULES BY MOUTH EVERY 12 HOURS. omeprazole (PriLOSEC OTC) [address] tablet Take 20 mg by mouth daily as needed. ONE TOUCH ULTRASOFT LANCETS XX MISC 6 times daily prednisoLONE acetate 1 % Suspension ophthalmic suspension Place 1 drop in both eyes 2 times daily. Propylene Glycol (Systane Balance) 0.6 % Solution Place 1 drop in both eyes daily. senna 8.6 MG tablet Take 1 tablet by mouth daily as needed for Constipation. sirolimus (RAPAMUNE) 0.5 MG tablet Take 2 tablets by mouth daily. Sulfamethoxazole-trimethoprim 800-160 MG per tablet TAKE 1 TABLET EVERY OTHER DAY Tamsulosin HCl 0.4 MG capsule Take 0.4 mg by mouth daily. PHYSICAL EXAM: VITALS: BP 142/69 (BP Location: Right arm, BP Position: Sitting) Pulse 76 Temp 98.1 F (36.7 C) (Temporal) Wt 114.1 kg (251 lb 9.6 oz) BMI 36.10 kg/m Smoking Status Some Days Constitutional: A+O, NAD Chest: CTAB Cardiovascular: +S1/S2 Abdomen: NT, +BS Extremities: Mobile, - c/c Skin: w/d/i LABORATORY VALUES: Lab Results Component Value Date WBC 4.46 09/21/2022 HGB 12.3 09/21/2022 PLATELET 191 09/21/2022 Lab Results Component Value Date SODIUM 139 09/21/2022 POTASSIUM 4.7 09/21/2022 CHLORIDE 108 09/21/2022 CO2 21 09/21/2022 BUN 19 09/21/2022 CREATSERUM 2.23 09/21/2022 GLUCOSE 115 09/21/2022 Lab Results Component Value Date CALCIUM 9.8 09/21/2022 PHOSPHORUS 3.1 07/17/2022 ASSESSMENT AND PLAN: 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 No interventions are warranted at this time. Immunosuppression Management: ICD10: Z09 High Risk Medical Decision Making For Drug Therapy Requiring Intensive Monitoring For Toxicity Current Immunosuppression: Current Immunosuppressive Medication(s) Immunosuppressive Agents Mycophenolate mofetil (CELLCEPT) 250 MG capsule TAKE 4 CAPSULES BY MOUTH EVERY 12 HOURS. sirolimus (RAPAMUNE) 0.5 MG tablet Take 2 tablets by mouth daily. I/S levels: No results found for: CYCLOSPORIN, CYCLOSPORIN2, [id number], CYCLORAND Lab Results Component Value Date SIROLIMUS 4.8 09/21/2022 Lab Results Component Value Date EVRLMSTRGH 4.8 06/21/2021 EVERTRGHMANE 15.8 07/11/2021 Lab Results Component Value Date TACROLIMUS 9.4 06/17/2021 TACROTRGHMAN <2.0 11/07/2021 TACRORAND 13.2 (H) 06/15/2021 No Changes are warranted at this time. Will continue intensive monitoring for drug levels and toxicity via regularly scheduled laboratory assays given the narrow therapeutic index of the immunosuppressive drug therapy listed above. Hypertension: ICD10: I15.1 Worse Blood Pressure in clinic as noted above. Today, I discussed the importance of monitoring home blood pressures. Often times, we notice that patients state that their blood pressure in our office is much higher than they normally notice at home. As such, I would like to utilize the ambulatory blood pressure readings to guide my therapeutic decisions. I have instructed the patient to record blood pressure readings 2 to 3 times per week andkeep these readings in a log. Whenever the patient is to visit a physician s office the patient will present this log to the clinician so that medications can be adjusted and titrated accordingly. Anemia: ICD10: D64.9 Stable Lab Results Component Value Date HGB 12.3 09/21/2022 Acceptable per current post-transplant protocols. An intervention is not indicated at this time. Proteinuria: ICD10: R80.8 Stable Lab Results Component Value Date PROTCREATRAT 0.7 04/22/2022 At Goal. An intervention is not indicated at this time. Hyperphosphatemia: ICD10: E83.39 Stable Last Phosphorous Level: Lab Results Component Value Date PHOSPHORUS 3.1 07/17/2022 A phosphorus binder is not indicated at this time. Hypercalcemia: E83.52 Stable Last Calcium Level: Lab Results Component Value Date CALCIUM 9.8 09/21/2022 No interventions are warranted at this time. Secondary Hyperparathyroidism: ICD10:E21.2 Stable Last PTH Lab Results Component Value Date PTH 145 04/22/2022 No interventions are warranted at this time. Hyperlipidemia: E78.2 Stable Lab Results Component Value Date CHOLESTEROL 83 04/22/2022 HDL 37 04/22/2022 TRIG 74 04/22/2022 An intervention is not indicated at this time. Counseling: ICD10: V71.9 Mr. Nickerson was counseled on: The need to avoid sun exposure and the use of sunblock while outdoors given the relatively higher risk of skin malignancy in an immunosuppressed state. The need for adherence to immunosuppression medication. Patient verbalized understanding. Follow-Up: The patient will continue to follow-up with us in clinic per our pre-established follow-up protocol, however we will see patient earlier should the need arise. Patient will continue to follow-up withhis primary care provider for non- transplant related issues and medication refills. We have orderedtransplant specific labs per the center s guidelines to monitor and assess for toxicities from immunosuppressant drug therapy. Thank you for allowing us to partake in the care of your patient. Should you have any questions please do not hesitate to contact me. Sincerely Yours, Migel Gómez MD, ANGELIC Malware Analyst of Clinical Medicine [facility] * Liset Yeung RN - 10/05/2022 3:00 PM EDT Images from the original note were not included. Nursing Assessment In Clinic Patient is accompanied to clinic today by: Self only Did patient require a wheelchair or medical transport for appointment: no Insurance information correct: yes Currently employed: No; on disability VITALS BP Readings from Last 3 Encounters: 10/05/22 142/69 03/16/22 156/79 10/25/21 120/70 Pulse Readings from Last 3 Encounters: 10/05/22 76 03/16/22 75 10/25/21 77 Wt Readings from Last 6 Encounters: 10/05/22 114.1 kg (251 lb 9.6 oz) 03/16/22 110.6 kg (243 lb 14.4 oz) 10/25/21 116.6 kg (257 lb) 10/13/21 115.2 kg (254 lb) 07/06/21 113.1 kg (249 lb 6.4 oz) 06/20/21 109.5 kg (241 lb 4.8 oz) Body mass index is 36.1 kg/m . Lab Results Component Value Date GLUCOSE 115 09/21/2022 Lab Results Component Value Date HGBA1C 5.4 04/22/2022 IMMUNOSUPPRESSION Current Immunosuppressive Medication(s) Immunosuppressive Agents Mycophenolate mofetil (CELLCEPT) 250 MG capsule TAKE 4 CAPSULES BY MOUTH EVERY 12 HOURS. sirolimus (RAPAMUNE) 0.5 MG tablet Take 2 tablets by mouth daily. PREFERRED LAB AND PHARMACY: [facility] [place] [facility] - [place] [address] [address] [address] [id number] - [place] [id number] [phone] [facility] [phone] [facility] [address] [facility] [address] [facility] - [place] [id number] - [facility] AT Portal to Registered [facility] Sites [facility] [place] [address] [facility] [place] - [place] [address] [address] [place] [address] ROS and SCREEN: Chest Pain: negative Cough: negative SOB: negative Abd Pain: negative Nausea: negative Vomiting: negative Diarrhea: negative Constipation: negative Dysuria: negative Edema: Notes mild BLE, wears compression stockings Wound issues: Negative; notes he fell a few months ago and scraped up both arms bad, broke a bone--now recovered QUESTIONS OR CONCERNS TO ADDRESS WITH PHYSICIAN: Notes dealing with plantar fasciitis. Doing PT. documented in this [facility]07-06[facility] Instructions* Patient Instructions* Liset Yeung RN - 10/05/2022 3:00 PM EDT - Return to clinic in 6 months. - Continue checking labs monthly. - No medication changes today. documented [facility] this [facility] History of Present illness Narrative* Jignesh Oliver MD - 09/18/2022 1:13 PM EDT Jignesh Oliver MD Department of Orthopaedics Orthopaedics [facility] [address] Dept: [phone] Dept October 17, 2022 CHIEF COMPLAINT: Established Patient, Follow Up, and Fracture of the Left Wrist HPI AMB ROOMING INTAKE FLOWSHEET DATA Patient presents with: Left Wrist - Established Patient, Follow Up, Fracture Patient presents to office for left wrist fracture. Referred by Yelitza carballo. Xray 07/26/2022 and 09/18/2022. Patient does not complain of pain at this time. Mariam Singleton LPN ASSESSMENT: S62.345A Closed nondisplaced fracture of base of fourth metacarpal bone of left hand, initial encounter (primary encounter diagnosis) M79.642 Left hand pain PLAN: He is already feeling better. He can continue activities as tolerated. FOLLOW UP INSTRUCTIONS: As needed Mr. Андрей Nickerson was advised as to contrast therapies and/or to take analgesics/anti-inflammatories as needed and all contraindications were reviewed. OBJECTIVE: Mr. Андрей Nickerson is a pleasant 62 year old in no apparent distress. Gen:There were no vitals taken for this visit. nl development, obese, no deformities ENT: Normocephalic, normal hearing, moist mucosa CV: Pulses:Radial= 2+ and symmetric, capillary refill < 2 secs, no peripheral edema/varicosities Skin: no rash, bruising or lesions. Good turgor. Psych: cooperative and appropriate, alert and oriented x 3, good mood and affect. Musculoskeletal: Mild and appropriate tenderness at base of 4th. Stiffness, but good motion IMAGING: IMPRESSION: Healing fracture of the base of the fourth metacarpal. Clinical Training Specialist[facility] Transcribe Date/Time: Sep 21 2022 8:41A Dictated by : ANÍBAL DORSEY MD This examination was interpreted and the report reviewed and electronically signed by: ANÍBAL DORSEY MD on Sep 21 2022 8:42AM EST Results-Findings * * *Final Report* * * DATE OF EXAM: Sep 18 2022 1:13PM WRX [id number] - XR HAND 3V PA/LAT/OBL LT / PROCEDURE REASON: Left hand pain * * * * Physician Interpretation * * * * History: Left hand pain FINDINGS: AP, lateral, and oblique views of the left hand are compared to prior study of 07/24/2022. Again seen is fracture involving the base of the fourth metacarpal. Increased callus formed consistent with changes of healing. No further fracture is seen. Scattered interphalangeal and MCP joint space narrowing without associated bony destruction. Vascular calcifications. Surgical clips in soft tissue nodule along the distal radius laterally. Supporting Subjective Information Below: Past Medical History: PAST MEDICAL HISTORY Diagnosis Date Arrhythmia CKD (chronic kidney disease) stage 3, GFR 30-59 ml/min ([facility]) [facility] Coronary artery disease 2006 s/p PCI. 3 stents total Diabetes type 1, uncontrolled 1971 nephropathy, retinopathy, dx age 10, Dr. Carolyn PERKINSU [facility] Heart attack ([facility]) Hyperlipidemia Hypertension Lacunar stroke ([facility]) Macular edema [facility] MVP (mitral valve prolapse) Pancreatitis Proliferative diabetic retinopathy(362.02) [facility] Snoring Stroke ([facility]) 2017 Tobacco abuse Past Surgical History: PAST SURGICAL HISTORY Procedure Laterality Date AVASTIN (BEVACIZUMAB) 1.25MG INTRAVITREAL INJECTION OS (LEFT EYE) x5 (04/16/2015) Dr. 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 XCAPSL CTRC RMVL INSJ IO LENS PROSTH W/O ECP Left 03/10/2015 Cataract Extraction with PC IOL XCAPSL CTRC RMVL INSJ IO LENS PROSTH W/O ECP Right 04/01/2015 Cataract Extraction with PC IOL Family History: FAMILY HISTORY Problem Relation Age of Onset Diabetes Mother Thyroid Mother Hyperlipidemia Mother Hypertension Mother No Known Problems Father No Ocular Disease Other Social History: Social History Tobacco Use Smoking status: Former Packs/day: 1.00 Years: 30.00 Total pack years: 30.00 Types: Cigarettes Smokeless tobacco: Never Vaping Use Vaping Use: Never used Substance Use Topics Alcohol use: Not Currently Drug use: Not Currently Types: Marijuana Comment: occasional--last used cannibis 04/2019 Medications: Current Outpatient Medications Medication Sig buPROPion XL (WELLBUTRIN XL) 150 mg 24 hr tablet Take 1 tablet by mouth once daily. carvedilol (COREG) 12.5 mg tablet Take 1 tablet by mouth once daily. atorvastatin (LIPITOR) 40 mg tablet Take 1 tablet by mouth once daily. famotidine (PEPCID) 20 mg tablet Take 1 tablet by mouth twice daily. sirolimus (RAPAMUNE) 0.5 mg tablet Take 1 mg by mouth once daily. propylene glycoL (SYSTANE COMPLETE) 0.6 % drop Use 1 Drop in both eyes four times daily. docusate sodium (COLACE) 100 mg capsule Take 100 mg by mouth twice daily. mycophenolate mofetil (CELLCEPT) 250 mg capsule Take by mouth twice daily. 4 caps q 12 hours sulfamethoxazole-trimethoprim (BACTRIM DS,SEPTRA DS) 800-160 mg per tablet Take by mouth twice daily. clopidogrel (PLAVIX) 75 mg tablet Take 1 tablet by mouth once daily. tamsulosin (FLOMAX) 0.4 mg TAKE 1 CAPSULE BY MOUTH EVERYDAY AT BEDTIME blood sugar diagnostic (ONETOUCH ULTRA TEST) test strip Checking blood sugars 3- 4 times daily Insulin [place], Disposable, (BD ULTRAFINE III MINI PEN) 31 gauge x 3/16 use as directed up to four times daily, E11.9 Blood-Glucose Sensor (DEXCOM G6 SENSOR) darleen Change Sensor every 14 days Patient reading blood sugar 12 times daily Blood-Glucose Meter,Continuous (DEXCOM G4 B OPERATOR-SHARE KIT) misc One [place] device, patient checks blood sugars 12 times daily Blood-Glucose Transmitter (DEXCOM G6 TRANSMITTER) darleen 1 Each as directed. Blood-Glucose Meter,Continuous (DEXCOM G6 B OPERATOR) misc 1 Each as directed. Lancets (MICROLET LANCET) lancets Test blood sugar(s) 3-4 times daily. Dx: 250.00 . Insulin: Yes Blood-Glucose Meter (ONETOUCH ULTRA2) monitoring kit 1 Each as needed. 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 fluticasone (FLONASE) 50 mcg/actuation nasal spray Use 2 Sprays in each nostril once daily. Rinse mouth after use. albuterol HFA (PROVENTIL HFA, VENTOLIN HFA) 90 mcg/actuation inhaler Inhale 2 Puffs as instructed every 6 hours as needed for wheezing/shortness of breath. timolol maleate (TIMOPTIC) 0.5 % ophthalmic solution Use 1 Drop in both eyes every morning. cephALEXin (KEFLEX) 500 mg capsule Take 1 capsule by mouth three times daily. Gum Kztcne-Vpekfl-YOip-Alcohol (MASTISOL ADHESIVE) dpet 1 application as directed. insulin detemir U-100 (LEVEMIR FLEXTOUCH U-100 INSULN) 100 unit/mL (3 mL) inpn injection INJECT 36 UNITS SUBCUTANEOUSLY DAILY AT BEDTIME. No current facility-administered medications for this visit. Allergies: Patient has no known allergies. ROS: General (negative for fatigue, malaise, weight loss/gain) HEENT (negative for headache, earache, recent vision changes, sinus pain, sore throat) Respiratory (no recent shortness of breath, hemoptysis) CV (negative for chest tightness, palpitations) Musculoskeletal (see HPI) Psych (no depression, anxiety) REFERRING PHYSICIAN: Consultation requested by Tara Carballo for an opinion regarding hand fracture. My final recommendations will be communicated back to the requesting physician by way of shared Medical record or letter to requesting physician via US mail. Tara Carballo [address] [facility] [address] Handy Henderson DO [id number] [facility] [id number] Jignesh Oliver MD documented in this encounterSelect Medical Trihealth [facility]04-24-2023 History of Present illness Narrative* Munir Carmona RT(R) - 07/24/2022 3:40 PM EDT Radiology Service Progress Note PATIENT NAME: Андрей Nickerson DATE OF SERVICE: July 24, 2022 TIME: 3:43 PM PATIENT IDENTITY VERIFICATION COMPLETED USING TWO (2) IDENTIFIERS: Name and Date of confirmedby patient verbally. FALL SCREENING: Has the patient had 2 falls in the last year or 1 fall with injury or currently using an Ambulatory Assistive Device (Walker, Cane, Wheelchair, Crutches, etc.)? No PATIENT GENDER DATA: Male PATIENT RELEVANT IMPLANT DATA REVIEWED: Yes RADIOLOGY DEPARTMENT: General X-ray: Exam(s) Completed: Upper Extremity X- Ray(s): Hand, left PERIPHERAL IV DATA: Not applicable SIGNED BY: RT Rocio(Yelitza) July 24, 2022 3:43 PM documented in this encounterSelect Medical Trihealth Rehabilitation Hospital04-24-2023 Instructions* Patient Instructions* Rosi Leger - 07/24/2022 3:05 PM EDT Monitor skin tears on both arms for s/sx of infection and monitor blood sugars for being increased also as a sign. Continue to complete your dressings twice daily and apply the antibiotic ointment documented in this encounterSelect Medical Trihealth Rehabilitation Hospital04-24-2023 History of Present illness Narrative* Tara Carballo APRN.ENGINE SETTER - 07/24/2022 2:42 PM EDT Chief Complaint Patient presents with: Follow Up: Fell on 07/19- was told by bryan that he has broken bones in left hand HPI Андрей Nickerson is a 61 year old male who presents here today for Above Complaints.. Fell 07/19 at [id number] going inside to order his Expan some dinner and tripped on the curb. He reports I took a heck of a face plant. He is on plavix and has history of prednisone use, long time type 1 diabetic with kidney transplant. He got extensive skin tears to bilateral arms, doing nonstick dressings and coban wrap twice daily with an antibiotic ointment and also started on keflex tid for redness to the skin tears, started this just yesterday. Left hand has broken bones and he was given a wrist splint and told to follow up with PCP and orthopedic, pain around 2-4 when not being used and when he uses it or it is pressed on it hurts like hell. He has trouble gripping and using the left hand currently. Takes tylenol as needed but doesn't like to take a lot of tylenol. Ice helps as well. Past medical history, appointments, medications, allergies reviewed. Previous Medical History PAST MEDICAL HISTORY Diagnosis Date Arrhythmia CKD (chronic kidney disease) stage 3, GFR 30-59 ml/min ([facility]) [facility] Coronary artery disease 2005 s/p PCI. 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 Leon [facility] Heart attack (HCC) Hyperlipidemia Hypertension Lacunar stroke ([facility]) Macular edema [facility] MVP (mitral valve prolapse) Pancreatitis Proliferative diabetic retinopathy(362.02) [facility] Snoring Stroke ([facility]) 2017 Tobacco abuse Previous Surgical History PAST SURGICAL HISTORY Procedure Laterality Date AVASTIN (BEVACIZUMAB) 1.25MG INTRAVITREAL INJECTION OS (LEFT EYE) x5 (04/16/2015) Dr. Connelly CANALOPLASTY W/O STENT Right 01/12/2022 Canaloplasty 360 degrees / Trabeculotomy 180 degrees CARDIAC CATH 2005, 2008, 2011 mid / distal LAD stents DENISHA COLONOSCOPY FLX DX W/COLLJ SPEC WHEN PFRMD 10/08/2018 Colonoscopy PAST SURGICAL HISTORY OF Bilateral Keratectomy PAST SURGICAL HISTORY OF N/A 03/19/2020 Laparoscopic peritoneal dialysis catheter placement with omentopexy- Shamir Tsai MD PAST SURGICAL HISTORY OF 03/2020 PD Catheter PAST SURGICAL HISTORY OF Left 02/18/2021 Canaloplasty / Trabeculotomy TRANSPLANTATION OF KIDNEY Right 03/27/2021 XCAPSL CTRC RMVL INSJ IO LENS PROSTH W/O ECP Left 03/10/2015 Cataract Extraction with PC IOL XCAPSL CTRC RMVL INSJ IO LENS PROSTH W/O ECP Right 04/01/2015 Cataract Extraction with PC IOL Family History FAMILY HISTORY Problem Relation Age of Onset Diabetes Mother Thyroid Mother Hyperlipidemia Mother Hypertension Mother No Known Problems Father No Ocular Disease Other Patient Allergies ALLERGIES No Known Allergies Current Medications Current Outpatient Medications on File Prior to Visit Medication Sig buPROPion XL (WELLBUTRIN XL) 150 mg 24 hr tablet Take 1 tablet by mouth once daily. timolol maleate (TIMOPTIC) 0.5 % ophthalmic solution Use 1 Drop in both eyes every morning. carvedilol (COREG) 12.5 mg tablet Take 1 tablet by mouth once daily. atorvastatin (LIPITOR) 40 mg tablet Take 1 tablet by mouth once daily. albuterol HFA (PROVENTIL HFA, VENTOLIN HFA) 90 mcg/actuation inhaler Inhale 2 Puffs as instructed every 6 hours as needed for wheezing/shortness of breath. famotidine (PEPCID) 20 mg tablet Take 1 tablet by mouth twice daily. sirolimus (RAPAMUNE) 0.5 mg tablet Take 1 mg by mouth once daily. propylene glycoL (SYSTANE COMPLETE) 0.6 % drop Use 1 Drop in both eyes four times daily. docusate sodium (COLACE) 100 mg capsule Take 100 mg by mouth twice daily. mycophenolate mofetil (CELLCEPT) 250 mg capsule Take by mouth twice daily. 4 caps q 12 hours sulfamethoxazole-trimethoprim (BACTRIM DS,SEPTRA DS) 800-160 mg per tablet Take by mouth twice daily. clopidogrel (PLAVIX) 75 mg tablet Take 1 tablet by mouth once daily. tamsulosin (FLOMAX) 0.4 mg TAKE 1 CAPSULE BY MOUTH EVERYDAY AT BEDTIME blood sugar diagnostic (ONETOUCH ULTRA TEST) test strip Checking blood sugars 3- 4 times daily Insulin [place], Disposable, (BD ULTRAFINE III MINI PEN) 31 gauge x 3/16 use as directed up to four times daily, E11.9 Blood-Glucose Sensor (DEXCOM G6 SENSOR) darleen Change Sensor every 14 days Patient reading blood sugar 12 times daily Blood-Glucose Meter,Continuous (DEXCOM G4 B OPERATOR-SHARE KIT) misc One [place] device, patient checks blood sugars 12 times daily Blood-Glucose Transmitter (DEXCOM G6 TRANSMITTER) darleen 1 Each as directed. Blood-Glucose Meter,Continuous (DEXCOM G6 B OPERATOR) misc 1 Each as directed. insulin detemir U-100 (LEVEMIR FLEXTOUCH U-100 INSULN) 100 unit/mL (3 mL) inpn injection INJECT 36 UNITS SUBCUTANEOUSLY DAILY AT BEDTIME. Lancets (MICROLET LANCET) lancets Test blood sugar(s) 3-4 times daily. Dx: 250.00 . Insulin: Yes Blood-Glucose Meter (ONETOUCH ULTRA2) monitoring kit 1 Each as needed. 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 fluticasone (FLONASE) 50 mcg/actuation nasal spray Use 2 Sprays in each nostril once daily. Rinse mouth after use. (Patient not taking: Reported on 07/24/2022) Gum Ivstyj-Wexgck-RRvo-Alcohol (MASTISOL ADHESIVE) dpet 1 application as directed. (Patient not taking: Reported on 07/24/2022) No current facility-administered medications on file prior to visit. Social History Social History Tobacco Use Smoking status: Former Packs/day: 1.00 Years: 30.00 Pack years: 30.00 Types: Cigarettes Smokeless tobacco: Never Vaping Use Vaping Use: Never used Substance Use Topics Alcohol use: Not Currently Drug use: Not Currently Types: Marijuana Comment: occasional--last used cannibis 04/2019 Review of Symptoms REVIEW OF SYSTEMS See HPI EXAM: BP 142/72 (BP Site: Left Arm, BP Position: Sitting, BP Cuff Size: Large Adult) Pulse 72 Resp 18 Wt 112.8 kg (248 lb 9.6 oz) SpO2 100% BMI 35.67 kg/m General Appearance: Well appearing, alert, in no acute distress, well-hydrated, well nourished.. Skin: dry, fragile, several discolorations bilateral upper extremities. Skin tears to bilateral forearms are covered with dressings , intact, no drainage noted outside of dressings. Head: Normocephalic, no masses, lesions, tenderness or abnormalities. Eyes: Anicteric sclera. Pupils are equally round and reactive to light. Extraocular movements are intact. . Lungs: Lungs clear to auscultation. No wheezing, rhonchi, rales.. Diminished bilaterally Heart: RRR without murmur, gallop, or rubs. No ectopy. Musculoskeletal: Left wrist brace on, swelling noted to left hand. Peripheral Pulses: Capillary refill <2secs, strong peripheral pulses bilaterally Neurologic: Gait normal. Reflexes normal and symmetric. Sensation grossly intact.. Health Maintenance List HEPATITIS A(1 of 2 - Risk 2-dose series) Never done DTAP,TDAP,TD(1 - Tdap) Never done SHINGRIX VACCINE(1 of 2) Never done COVID-19 VACCINE(4 - Booster for Moderna series) due on 04/04/2021 DEPRESSION ASSESSMENT due on 04/02/2022 HBA1C due on 10/20/2022 DIABETIC FOOT EXAM due on 10/26/2022 DILATED RETINAL EXAM due on 11/07/2022 LUNG CANCER SCREENING due on 01/04/2023 LDL CHOLESTEROL due on 03/02/2023 ANNUAL PCP TEAM CHRONIC DISEASE VISIT due on 05/10/2023 BP CONTROLLED (<130/80) due on 05/10/2023 SERUM CREATININE due on 07/18/2023 HEMOGLOBIN/HEMATOCRIT due on 07/18/2023 COLORECTAL CANCER SCREENING due on 10/09/2023 PROSTATE CANCER SCREENING DISCUSSION due on 06/30/2025 INFLUENZA Completed HEPATITIS C SCREENING Completed HIV SCREENING Completed PNEUMOCOCCAL Completed HPV VACCINE Aged Out Data reviewed Previous records, office notes ASSESSMENT/PLAN: 1. Left hand pain - ICD9: 729.5, ICD10: M79.642 (primary diagnosis) Monitor skin tears on both arms for s/sx of infection and monitor blood sugars for being increased also as a sign. Continue to complete your dressings twice daily and apply the antibiotic ointment - CONSULT TO ORTHOPAEDICS - XR HAND GENERAL 3V PA/LAT/OBL LEFT - TRAMADOL 50 MG TABLET 2. Fall, sequela - ICD9: 909.4, E929.3, ICD10: W19.XXXS Monitor skin tears on both arms for s/sx of infection and monitor blood sugars for being increased also as a sign. Continue to complete your dressings twice daily and apply the antibiotic ointment - CONSULT TO ORTHOPAEDICS - XR HAND GENERAL 3V PA/LAT/OBL LEFT - TRAMADOL 50 MG TABLET Tara Carballo APRN.MARIA M documented in this encounterSelect Medical [facility]04-10-2023 Miscellaneous Notes* Telephone Encounter - Magdalena Cabezas LPN - 07/10/2022 10:53 AM EDT Patient calling his insurance is going to charge him full kasper if he does not have a 90 day rx forhis Wellbutrin rx. Reset rx for 90 day amount, with one refill. Please advise Patient has been identified by name and date of : Patient phones for refill(s): Requested Prescriptions Pending Prescriptions Disp Refills buPROPion XL (WELLBUTRIN XL) 150 mg 24 hr tablet 90 tablet 1 Sig: Take 1 tablet by mouth once daily. Date of last office visit in primary care: 05/10/2022, has appt 10/17/2022 Last 2 Encounter Wt Readings: Date: Wt: 05/10/2022 114.8 kg (253 lb) 02/06/2022 109.3 kg (241 lb) Previous labs/tests for medication: Not applicable Please advise. Thank you. Magdalena Cabezas LPN documented in this encounterSelect Medical [facility]04-07-2023 Miscellaneous Notes* Telephone Encounter - Saima Crowe LPN - 07/07/2022 8:22 AM EDT Patient phones requesting refills as follows: Pharmacy comment: Alternative Requested:NEEDS 90 DAY SUPPLY FOR INSURANCE COVERAGE. Requested Prescriptions Pending Prescriptions Disp Refills buPROPion XL (WELLBUTRIN XL) 150 mg 24 hr tablet [Pharmacy Med Name: BUPROPION HCL XL 150 MG TABLET] 30 tablet 1 Sig: TAKE 1 TABLET BY MOUTH EVERY DAY Please review and advise. Saima Crowe LPN documented in this encounterSelect Medical [facility]04-03-2023 Miscellaneous Notes* Telephone Encounter - Julee Gardner MA - 07/03/2022 9:35 AM EDT Patient has been identified by name and date of : Yes Requested Prescriptions Pending Prescriptions Disp Refills buPROPion XL (WELLBUTRIN XL) 150 mg 24 hr tablet [Pharmacy Med Name: BUPROPION HCL XL 150 MG TABLET] 30 tablet 1 Sig: TAKE 1 TABLET BY MOUTH EVERY DAY RX INSTRUCTIONS: Patient aware RX will be sent to pharmacy. No need to notify patient. Patient last office visit: 05/10/22 Patient next office visit: 10/17/22 Julee Gardner MA documented in this encounterSelect Medical [facility]03-20-2023 Instructions* Patient Instructions* George Pacheco MD - 06/19/2022 2:37 PM EDT Current Ophthalmic Meds timolol maleate (TIMOPTIC) 0.5 % ophthalmic solution Use 1 Drop in both eyes every morning. (NEW TODAY) Continue: Systane Complete solution instill 1 drop 3 times daily Both Eyes. If you have any questions please contact our office at [phone]. After office hours or on the weekend, please call Dr. Pacheco on his cell phone at [phone].' documented in this encounterSelect Medical [facility]03-20-2023 History of Present illness Narrative* George Pacheco MD - 06/19/2022 2:35 PM EDT ASSESSMENT/PLAN: 1. Primary open angle glaucoma (POAG) of right eye, mild stage - ICD9: 365.11, 365.71, ICD10: H40.1111 (primary diagnosis) 2. Primary open angle glaucoma (POAG) of left eye, mild stage - ICD9: 365.11, 365.71, ICD10: H40.1121 - VISUAL FIELD 24-2 OU (BOTH EYES) - OCT OPTIC NERVE CIRRUS OU (BOTH EYES) Status Post Canaloplasty with the Omni surgical system Right Eye (01/12/2022) Status Post Canaloplasty with the Omni surgical system Left Eye (02/18/2021) Current Ophthalmic Meds timolol maleate (TIMOPTIC) 0.5 % ophthalmic solution Use 1 Drop in both eyes every morning. (NEW TODAY) Continue: Systane Complete solution instill 1 drop 3 times daily Both Eyes. 3. Optic cupping of both eyes - ICD9: 377.14, ICD10: H47.233 Monitor 4. 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 Continue to monitor with primary care physician. George Pacheco MD I have confirmed and edited as necessary the relevant ophthalmic history, review of systems, surgical history, and ophthalmological examination findings as obtained by the ophthalmic technical staff.I have seen and examined Андрей Nickerson. I have discussed the examination findings, diagnosis, and treatment options with Андрей Nickerson and/or his family. I have also reviewed and agree with the assessment and plan as stated above and agree with all its relevant components. Igave the patient the opportunity to ask questions about the findings, diagnosis, and treatment options. documented in this encounterSelect Medical [facility]03-13-2023 History of Present illness Narrative* Triny Palmer - 06/12/2022 1:08 PM EDT Last saw Dr. Henderson: 05/10/22 Subjective: Patient presents to clinic c/o painful toenails. They state that the nails are especially painful with shoe gear and pressure. Patient states that nails 1-5 b/l are painful. Patient admits to being diabetic. No other pedal complaints at this time. Patient states no change in medications or medical history since last visit. Objective: Patient presents to clinic ambulating in boots Vasc: DP and PT pulses are palpable bilateral. CFT is less than 5 seconds bilateral. Skin temperature is warm to cool proximal to distal bilateral. There is moderate edema or varicosities noted. Neuro: Protective sensation is absent to the foot and toes when tested with the 5.07 SWM bilateral.Vibratory sensation is absent at the hallux IPJ bilateral. The hallux is downgoing bilateral. Derm: Nails 1-5 b/l are painful, discolored-yellow, thick, crumbly, dystrophic and with subungal debris. Skin is of normal turgor, texture and hair growth is absent bilateral. There are no hyperkeratosis, ulcerations, scars, verruca or other lesions noted. Ortho: Muscle strength is 5/5 for all pedal groups tested. Ankle joint DF is decreased with the knee extended with no pain or crepitus noted. 1st MPJ ROM is decreased bilateral. Assessment: (B35.1) Onychomycosis (primary encounter diagnosis) (M79.675) Pain in toe of left foot (M79.674) Pain in toe of right foot (E11.49) Other diabetic neurological complication associated with type 2 diabetes mellitus (HCC) Plan: Patient was seen and evaluated. Nails 1-5 bilateral were debrided in length and thickness. Patient was instructed on the continued importance of diabetic foot care along with proper diet and keeping their blood sugar under control to prevent complications. Patient is to RTC in 3-4 months. Triny Palmer DPM * Mariam Singleton LPN - 06/12/2022 1:02 PM EDT AMB ROOMING INTAKE FLOWSHEET DATA Patient presents with: Left Foot - Established Patient, Follow Up, Diabetic Foot Care Right Foot - Established Patient, Follow Up, Diabetic Foot Care Mariam Singleton LPN documented in this encounterSelect Medical [facility]03-13-2023 Instructions* Patient Instructions* Triny Palmer - 06/12/2022 1:08 PM EDT Diabetes Foot Care Instructions When you have diabetes, proper foot care is very important. Poor foot care may lead to amputation of a foot or leg. As a person with diabetes, you are more vulnerable to foot problems, because diabetes can damage your nerves and reduce blood flow to your feet. Here are some diabetes foot care tips to follow: Wash and Dry Your Feet Daily Use mild soaps Use warm water Pat your skin dry; do not rub. Thoroughly dry your feet. After washing, use lotion on your feet to prevent cracking. Do not put lotion between your toes. Examine Your Feet Each Day Check the tops and bottoms of your feet. Have someone else look at your feet if you cannot see them. Check for dry, cracked skin. Look for blisters, cuts, scratches, or other sores. Check for redness, increased warmth, or tenderness when touching any area of your feet. Check for ingrown toenails, corns, and calluses. If you get a blister or sore from your shoes, do not pop it. Apply a bandage and wear a differentpair of shoes. Take Care of Your Toenails Cut toenails after bathing, when they are soft. Cut toenails straight across and smooth with a nail file. Avoid cutting into the corners of toes. Do not cut cuticles. If you have neuropathy (or decreased sensation in your feet) a track helper should always cut your toenails. Be Careful When Exercising Walk and exercise in comfortable shoes. Do not exercise when you have open sores on your feet. Protect Your Feet With Shoes and Socks Never go barefoot. Always protect your feet by wearing shoes or hard-soled slippers or footwear. Avoid shoes with high heels and pointed toes. Avoid shoes that expose your toes or heels (such as open-toed shoes or sandals). These types of shoes increase your risk for injury and potential infections. Try on new footwear with the type of socks you usually wear. Do not wear new shoes for more than an hour at a time. Change your socks daily. Look and feel inside your shoes before putting them on to make sure there are no foreign objects orrough areas. Avoid tight socks. Wear natural-fiber socks (cotton, wool, or a cotton-wool blend). Wear special shoes if your health care provider recommends them. Wear shoes/boots that will protect your feet from various weather conditions (cold, moisture, etc.). Make sure your shoes fit properly. If you have neuropathy (nerve damage), you may not notice that your shoes are too tight. Perform the footwear test described below. Footwear Test Use this simple test to see if your shoes fit correctly: Stand on a piece of paper. (Make sure you are standing and not sitting, because your foot changes shape when you stand.) Trace the outline of your foot. Trace the outline of your shoe. Compare the tracings: Is the shoe too narrow? Is your foot crammed into the shoe? The shoe should be at least 1/2 inch longer than your longest toe and as wide as your foot. Proper Shoe Choices The following types of shoes are best for people with diabetes Closed toes and heels Leather uppers without a seam inside At least 1/2 inch extra space at the end of your longest toe Inside of shoe should be soft with no rough areas Outer sole should be made of stiff material Shoes should be at least as wide as your feet Tips for Foot Care in Diabetes Don't wait to treat a minor foot problem if you have diabetes. Follow your health care provider's guidelines and first aid guidelines. Report foot injuries and infections to your health care provider immediately. Check water temperature with your elbow, not your foot. Do not use a heating pad on your feet. Do not cross your legs. Do not self-treat your corns, calluses, or other foot problems. Go to your health care provider or track helper to treat these conditions. documented in this encounterSelect Medical [facility]03-10-2023 Miscellaneous Notes* Telephone Encounter - Aleyda Montgomery Pss - 06/09/2022 11:56 AM EST Patient has been identified by name and date of : Yes Requested Prescriptions Pending Prescriptions Disp Refills carvedilol (COREG) 12.5 mg tablet 90 tablet 3 Sig: Take 1 tablet by mouth once daily. atorvastatin (LIPITOR) 40 mg tablet 90 tablet 3 Sig: Take 1 tablet by mouth once daily. JAMEY-05/10/22 Labs-05/18/22 NOV-10/17/22 RX INSTRUCTIONS: Patient confirmed dosing on both medications. He needs them sent today, he is out tomorrow. Patient aware RX will be sent to pharmacy. No need to notify patient. Aleyda Montgomery Pss documented in this encounterSelect Medical [facility]02-09-2023 Miscellaneous Notes* Telephone Encounter - Nieves Sanchez - 05/11/2022 11:00 AM EST Pt informed, verbalized understanding Nieves Sanchez * Telephone Encounter - Maya Holguin APRN.CNP - 05/11/2022 10:32 AM EST The following approved medication requests have been transmitted electronically. Requested Prescriptions Signed Prescriptions Disp Refills buPROPion XL (WELLBUTRIN XL) 150 mg 24 hr tablet 30 tablet 1 Sig: Take 1 tablet by mouth once daily. Authorizing Provider: MAYA HOLGUIN APRN.CNP * Telephone Encounter - Saima Crowe LPN - 05/10/2022 3:16 PM EST Pt requesting to get back on Wellbutrin XL 150mg. He started up smoking again and forgot to mentioned it in today appt. 05/10/22. And would like to stop. Saima Crowe LPN documented in this encounterSelect Medical Trihealth [facility] Hospital02-08-2023 History of Present illness Narrative* Handy Orosco Henderson, DO - 05/10/2022 3:06 PM EST CC: Андрей Nickerson is a 61 year old male who presents to the office for follow up HPI: HTN, seems to be stable, taking medication as prescribed. DM1, managed by project intern, has CGM and pump Hx of renal transplant, continues to follow up with his renal transplant medical team through [facility], recently had labs rechecked in the last 2 weeks Glucose (mg/dL) Date Value 04/22/2022 110 01/26/2021 141 Potassium (mmol/L) Date Value 04/22/2022 4.8 01/26/2021 3.5 Sodium (mmol/L) Date Value 04/22/2022 140 01/26/2021 140 Chloride (mmol/L) Date Value 04/22/2022 112 01/26/2021 97 CO2 (mmol/L) Date Value 04/22/2022 18 01/26/2021 24 Creatinine (mg/dL) Date Value 04/22/2022 2.31 01/26/2021 11.85 BUN (mg/dL) Date Value 04/22/2022 19 01/26/2021 54 Anion Gap (mmol/L) Date Value 04/22/2022 10 01/26/2021 19 Calcium (mg/dL) Date Value 01/26/2021 9.8 Calcium, Total (mg/dL) Date Value 04/22/2022 9.6 Protein, Total (g/dL) Date Value 03/15/2022 5.7 01/26/2021 6.4 Albumin (g/dL) Date Value 03/15/2022 3.8 05/11/2021 3.8 01/26/2021 3.6 Bilirubin, Total (mg/dL) Date Value 04/22/2022 0.4 01/26/2021 0.3 Alkaline Phosphatase (U/L) Date Value 03/15/2022 197 01/26/2021 101 AST (U/L) Date Value 04/22/2022 21 01/26/2021 16 ALT (U/L) Date Value 04/22/2022 33 01/26/2021 26 Hemoglobin A1C Date Value Ref Range Status 04/22/2022 5.4 4.3 - 5.6 % Final Comment: [place] [employer] guidelines indicate that patients with HgbA1c in the range 5.7-6.4% are at increased risk for development of diabetes, and intervention by lifestyle modification may be beneficial. HgbA1c greater or equal to 6.5% is considered diagnostic of diabetes. 03/02/2022 6.2 (H) 4.3 - 5.6 % Final Comment: [place] [employer] guidelines indicate that patients with HgbA1c in the range 5.7-6.4% are at increased risk for development of diabetes, and intervention by lifestyle modification may be beneficial. HgbA1c greater or equal to 6.5% is considered diagnostic of diabetes. 02/15/2022 6.6 (H) 4.3 - 5.6 % Final Comment: [place] [employer] guidelines indicate that patients with HgbA1c in the range 5.7-6.4% are at increased risk for development of diabetes, and intervention by lifestyle modification may be beneficial. HgbA1c greater or equal to 6.5% is considered diagnostic of diabetes. 02/01/2022 6.7 (H) 4.3 - 5.6 % Final Comment: [place] [employer] guidelines indicate that patients with HgbA1c in the range 5.7-6.4% are at increased risk for development of diabetes, and intervention by lifestyle modification may be beneficial. HgbA1c greater or equal to 6.5% is considered diagnostic of diabetes. 01/17/2022 6.5 (H) 4.3 - 5.6 % Final Comment: [place] [employer] guidelines indicate that patients with HgbA1c in the range 5.7-6.4% are at increased risk for development of diabetes, and intervention by lifestyle modification may be beneficial. HgbA1c greater or equal to 6.5% is considered diagnostic of diabetes. Edema, legs, seems to be stable, wearing his compression socks routinely HPL, taking medication URI symptoms, sinus pressure and congestion, ear pressure and PND, no fevers or chills. Several weeks of symptoms, taking mucinex and doing sinus rinses PAST MEDICAL HISTORY Diagnosis Date Arrhythmia CKD (chronic kidney disease) stage 3, GFR 30-59 ml/min ([facility]) [facility] Coronary artery disease 2006 s/p PCI. 3 stents total Diabetes type 1, uncontrolled 1971 nephropathy, retinopathy, dx age 10, Dr. Leon [facility] Heart attack ([facility]) Hyperlipidemia Hypertension Lacunar stroke ([facility]) Macular edema [facility] MVP (mitral valve prolapse) Pancreatitis Proliferative diabetic retinopathy(362.02) [facility] Snoring Stroke ([facility]) 2017 Tobacco abuse PAST SURGICAL HISTORY Procedure Laterality Date AVASTIN (BEVACIZUMAB) 1.25MG INTRAVITREAL INJECTION OS (LEFT EYE) x5 (04/16/2015) Dr. 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 XCAPSL CTRC RMVL INSJ IO LENS PROSTH W/O ECP Left 03/10/2015 Cataract Extraction with PC IOL XCAPSL CTRC RMVL INSJ IO LENS PROSTH W/O ECP Right 04/01/2015 Cataract Extraction with PC IOL Current Outpatient Medications Medication Sig famotidine (PEPCID) 20 mg tablet Take 1 tablet by mouth twice daily. sirolimus (RAPAMUNE) 0.5 mg tablet Take 1 mg by mouth once daily. carvedilol (COREG) 12.5 mg tablet Take 1 tablet by mouth q 12 HR. propylene glycoL (SYSTANE COMPLETE) 0.6 % drop Use 1 Drop in both eyes four times daily. docusate sodium (COLACE) 100 mg capsule Take 100 mg by mouth twice daily. mycophenolate mofetil (CELLCEPT) 250 mg capsule Take by mouth twice daily. 4 caps q 12 hours sulfamethoxazole-trimethoprim (BACTRIM DS,SEPTRA DS) 800-160 mg per tablet Take by mouth twice daily. clopidogrel (PLAVIX) 75 mg tablet Take 1 tablet by mouth once daily. tamsulosin (FLOMAX) 0.4 mg TAKE 1 CAPSULE BY MOUTH EVERYDAY AT BEDTIME blood sugar diagnostic (ONETOUCH ULTRA TEST) test strip Checking blood sugars 3- 4 times daily atorvastatin (LIPITOR) 40 mg tablet Take 0.5 tablets by mouth once daily. (Patient taking differently: Take 20 mg by mouth once daily. Taking 20 mg tablet once daily) Blood-Glucose Sensor (DEXCOM G6 SENSOR) darleen Change Sensor every 14 days Patient reading blood sugar 12 times daily aspirin, enteric coated (ECOTRIN LOW STRENGTH) 81 mg EC tablet Take 1 tablet by mouth once daily. cephALEXin (KEFLEX) 500 mg capsule Take 1 capsule by mouth twice daily for 10 days. albuterol HFA (PROVENTIL HFA, VENTOLIN HFA) 90 mcg/actuation inhaler Inhale 2 Puffs as instructed every 6 hours as needed for wheezing/shortness of breath. fluticasone (FLONASE) 50 mcg/actuation nasal spray Use 2 Sprays in each nostril once daily. Rinse mouth after use. Gum Kigprh-Tzxhop-HLdr-Alcohol (MASTISOL ADHESIVE) dpet 1 application as directed. (Patient not taking: Reported on 03/07/2022) Insulin [place], Disposable, (BD ULTRAFINE III MINI PEN) 31 gauge x 3/16 use as directed up to four times daily, E11.9 Blood-Glucose Meter,Continuous (DEXCOM G4 B OPERATOR-SHARE KIT) misc One [place] device, patient checks blood sugars 12 times daily Blood-Glucose Transmitter (DEXCOM G6 TRANSMITTER) darleen 1 Each as directed. Blood-Glucose Meter,Continuous (DEXCOM G6 B OPERATOR) misc 1 Each as directed. insulin detemir U-100 (LEVEMIR FLEXTOUCH U-100 INSULN) 100 unit/mL (3 mL) inpn injection INJECT 36 UNITS SUBCUTANEOUSLY DAILY AT BEDTIME. Lancets (MICROLET LANCET) lancets Test blood sugar(s) 3-4 times daily. Dx: 250.00 . Insulin: Yes Blood-Glucose Meter (ONETOUCH ULTRA2) monitoring kit 1 Each as needed. One Touch Meter Kit, Dx: E10.3219 Type1 dm with mild nonproliferative diabetic retinopathy/macular edema No current facility-administered medications for this visit. ALLERGIES No Known Allergies Social History Tobacco Use Smoking status: Former Packs/day: 1.00 Years: 30.00 Pack years: 30.00 Types: Cigarettes Smokeless tobacco: Never Vaping Use Vaping Use: Never used Substance Use Topics Alcohol use: Not Currently Drug use: Not Currently Types: Marijuana Comment: occasional--last used cannibis 04/2019 ROS: See HPI. PE: BP 128/74 Pulse 88 Temp (Src) 97.2 (Right Tympanic) Resp 20 Wt 253 lb (114.8kg) Gen: A&OX3, NAD, non-toxic appearing HEENT: PERRLA, EOMs intact b/l, nares with congestion and drainage, pharynx without erythema, exudate, lesions, or drainage. Uvula midline. Neck: No LAD, no thyromegaly, no meningismus. CV: RRR, no murmur Lungs: CTA b/l, no wheezing Skin: No rashes, lesions, or wounds on exposed skin. Obese abdomen, non distended No peripheral edema legs Varicose vein changes of legs Fistula in left forearm ASSESSMENT/PLAN: 1. Essential hypertension - ICD9: 401.9, ICD10: I10 (primary diagnosis) - good control - Continue current medication(s) - Encouraged dietary sodium restriction/DASH diet - Recommended regular aerobic exercise. - Recommend home blood pressure monitoring, to bring results in on next visit - Discussed need and benefit for weight loss. - Goal of BP <130/80 2. URI, acute - ICD9: 465.9, ICD10: J06.9 - Discussed viral etiology and rationale for treatment. - Symptomatic treatment with prn analgesia - Supportive care with fluids and rest - CEPHALEXIN 500 MG CAPSULE 3. Status post kidney transplant - ICD9: V42.0, ICD10: Z94.0 - f/u with [facility]/renal transplant team 4. 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 Hypercholesteremia - ICD9: 272.0, ICD10: E78.00 - stable 6. Bilateral leg edema - ICD9: 782.3, ICD10: R60.0 - stable, continue use of compression stockings. 7. Obesity, Class II, BMI 35-39.9 - ICD9: 278.00, ICD10: E66.9 Stable - Behavioral intervention and - Eat well program Handy Henderson DO Return if no improvement. Follow up with Handy Henderson DO. To ER if develops chest pain, shortness of breath Discussed risks, benefits, alternatives, and potential side effects of medications. Patient/Guardian expressed understanding and agreed with the plan. See patient instructions. Handy Henderson DO [address] [place] [address] documented in this encounterSelect [facility] History of Present illness Narrative* Triny Palmer - 03/07/2022 1:10 PM EST Last saw Dr. Henderson: 02/06/22 Subjective: Patient presents to clinic c/o painful toenails. They state that the nails are especially painful with shoe gear and pressure. Patient states that nails b/l hallux are painful. Patient admits to being diabetic. No other pedal complaints at this time. Patient states no change in medications or medical history since last visit. Objective: Patient presents to clinic ambulating in [facility] Vasc: DP and PT pulses are faintly palpable bilateral. CFT is less than 5 seconds bilateral. Skin temperature is warm to cool proximal to distal bilateral. There is mild edema or varicosities noted. Neuro: Protective sensation is absent to the foot and toes when tested with the 5.07 SWM bilateral.Vibratory sensation is absent at the hallux IPJ bilateral. The hallux is downgoing bilateral. Derm: Nails 1-5 b/l are painful, discolored-yellow, thick, crumbly, dystrophic and with subungal debris. B/l hallux is ingrowing without infection. Skin is of normal turgor, texture and hair growth is decreased bilateral. There are no hyperkeratosis, ulcerations, scars, verruca or other lesions noted. Ortho: Muscle strength is 5/5 for all pedal groups tested. Ankle joint DF is decreased with the knee extended with no pain or crepitus noted. 1st MPJ ROM is decreased bilateral. Assessment: (B35.1) Onychomycosis (primary encounter diagnosis) (M79.675) Pain in toe of left foot (M79.674) Pain in toe of right foot (E11.49) Other diabetic neurological complication associated with type 2 diabetes mellitus (HCC) Plan: Patient was seen and evaluated. Nails 1-5 bilateral were debrided in length and thickness. He has b/l hallux ingrowing nail without infection. Discussed matrixectomy but for now, patient haselected to continue with conservative care Continue with light compression for lower extremity edema Patient was instructed on the continued importance of diabetic foot care along with proper diet andkeeping their blood sugar under control to prevent complications. Patient is to RTC in 3-4 months. Triny Palmer DPM * Mariam Singleton LPN - 03/07/2022 1:07 PM EST AMB ROOMING INTAKE FLOWSHEET DATA Risk Screening Do you have concerns about personal safety or safety in the home?: No Patient presents with: Left Foot - Diabetic Foot Care, Established Patient, Follow Up Right Foot - Diabetic Foot Care, Established Patient, Follow Up Mariam Singleton LPN documented in this encounterSelect Medical [facility]12-06-2022 Instructions* Patient Instructions* Triny Palmer - 03/07/2022 1:10 PM EST Diabetes Foot Care Instructions When you have diabetes, proper foot care is very important. Poor foot care may lead to amputation of a foot or leg. As a person with diabetes, you are more vulnerable to foot problems, because diabetes can damage your nerves and reduce blood flow to your feet. Here are some diabetes foot care tips to follow: Wash and Dry Your Feet Daily Use mild soaps Use warm water Pat your skin dry; do not rub. Thoroughly dry your feet. After washing, use lotion on your feet to prevent cracking. Do not put lotion between your toes. Examine Your Feet Each Day Check the tops and bottoms of your feet. Have someone else look at your feet if you cannot see them. Check for dry, cracked skin. Look for blisters, cuts, scratches, or other sores. Check for redness, increased warmth, or tenderness when touching any area of your feet. Check for ingrown toenails, corns, and calluses. If you get a blister or sore from your shoes, do not pop it. Apply a bandage and wear a differentpair of shoes. Take Care of Your Toenails Cut toenails after bathing, when they are soft. Cut toenails straight across and smooth with a nail file. Avoid cutting into the corners of toes. Do not cut cuticles. If you have neuropathy (or decreased sensation in your feet) a track helper should always cut your toenails. Be Careful When Exercising Walk and exercise in comfortable shoes. Do not exercise when you have open sores on your feet. Protect Your Feet With Shoes and Socks Never go barefoot. Always protect your feet by wearing shoes or hard-soled slippers or footwear. Avoid shoes with high heels and pointed toes. Avoid shoes that expose your toes or heels (such as open-toed shoes or sandals). These types of shoes increase your risk for injury and potential infections. Try on new footwear with the type of socks you usually wear. Do not wear new shoes for more than an hour at a time. Change your socks daily. Look and feel inside your shoes before putting them on to make sure there are no foreign objects orrough areas. Avoid tight socks. Wear natural-fiber socks (cotton, wool, or a cotton-wool blend). Wear special shoes if your health care provider recommends them. Wear shoes/boots that will protect your feet from various weather conditions (cold, moisture, etc.). Make sure your shoes fit properly. If you have neuropathy (nerve damage), you may not notice that your shoes are too tight. Perform the footwear test described below. Footwear Test Use this simple test to see if your shoes fit correctly: Stand on a piece of paper. (Make sure you are standing and not sitting, because your foot changes shape when you stand.) Trace the outline of your foot. Trace the outline of your shoe. Compare the tracings: Is the shoe too narrow? Is your foot crammed into the shoe? The shoe should be at least 1/2 inch longer than your longest toe and as wide as your foot. Proper Shoe Choices The following types of shoes are best for people with diabetes Closed toes and heels Leather uppers without a seam inside At least 1/2 inch extra space at the end of your longest toe Inside of shoe should be soft with no rough areas Outer sole should be made of stiff material Shoes should be at least as wide as your feet Tips for Foot Care in Diabetes Don't wait to treat a minor foot problem if you have diabetes. Follow your health care provider's guidelines and first aid guidelines. Report foot injuries and infections to your health care provider immediately. Check water temperature with your elbow, not your foot. Do not use a heating pad on your feet. Do not cross your legs. Do not self-treat your corns, calluses, or other foot problems. Go to your health care provider or track helper to treat these conditions. documented in this encounterSelect Medical [facility]11-08-2022 History of Present illness Narrative* Handy Henderson, DO - 02/07/2022 7:21 AM EST CC: Андрей Nickerson is a 61 year old male who presents to the office for follow up HPI: Recently was in the EMERGENCY DEPARTMENT in the last 1 week for feeling of acute dehydration. Didn't feel that he was adequately able to orally hydrate. Was having a lot of diarrheal symptoms throughthe day. Was seen in EMERGENCY DEPARTMENT and labs showed that his BUN and creatinine were elevatedfrom renal transplant baseline. He wasn't feeling well. He was treated with IVF and bowel rest. No further diarrhea at this time. HTN, seems to be stable, taking medication as prescribed. DM1, managed by project intern, has CGM and pump PAST MEDICAL HISTORY Diagnosis Date Arrhythmia CKD (chronic kidney disease) stage 3, GFR 30-59 ml/min ([facility]) [facility] Coronary artery disease 2005 s/p PCI. 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 Uzmann [facility] Heart attack (HCC) Hyperlipidemia Hypertension Lacunar stroke (HCC) Macular edema [facility] MVP (mitral valve prolapse) Pancreatitis Proliferative diabetic retinopathy(362.02) [facility] Snoring Stroke ([facility]) 2017 Tobacco abuse PAST SURGICAL HISTORY Procedure Laterality Date AVASTIN (BEVACIZUMAB) 1.25MG INTRAVITREAL INJECTION OS (LEFT EYE) x5 (04/16/2015) Dr. Connelly CANALOPLASTY W/O STENT Right 01/12/2022 Canaloplasty 360 degrees / Trabeculotomy 180 degrees CARDIAC CATH 2005, 2008, 2011 mid / distal LAD stents DENISHA COLONOSCOPY FLX DX W/COLLJ SPEC WHEN PFRMD 10/08/2018 Colonoscopy PAST SURGICAL HISTORY OF Bilateral Keratectomy PAST SURGICAL HISTORY OF N/A 03/19/2020 Laparoscopic peritoneal dialysis catheter placement with omentopexy- Shamir Tsai MD PAST SURGICAL HISTORY OF 03/2020 PD Catheter PAST SURGICAL HISTORY OF Left 02/18/2021 Canaloplasty / Trabeculotomy TRANSPLANTATION OF KIDNEY Right 03/27/2021 XCAPSL CTRC RMVL INSJ IO LENS PROSTH W/O ECP Left 03/10/2015 Cataract Extraction with PC IOL XCAPSL CTRC RMVL INSJ IO LENS PROSTH W/O ECP Right 04/01/2015 Cataract Extraction with PC IOL Current Outpatient Medications Medication Sig ACULAR 0.5 % ophthalmic solution Use 1 Drop in the right eye four times daily for 14 days. Use twice a day for 2 weeks then stop prednisoLONE acetate (PRED FORTE) 1 % ophthalmic suspension Use 1 Drop in the right eye twice dailyfor 14 days. Use 1 drop twice a day for 2 weeks then STOP famotidine (PEPCID) 20 mg tablet Take 1 tablet by mouth twice daily. sirolimus (RAPAMUNE) 0.5 mg tablet Take 1 mg by mouth once daily. carvedilol (COREG) 12.5 mg tablet Take 1 tablet by mouth q 12 HR. albuterol HFA (PROVENTIL HFA, VENTOLIN HFA) 90 mcg/actuation inhaler Inhale 2 Puffs as instructed every 6 hours as needed for wheezing/shortness of breath. propylene glycoL (SYSTANE COMPLETE) 0.6 % drop Use 1 Drop in both eyes four times daily. docusate sodium (COLACE) 100 mg capsule Take 100 mg by mouth twice daily. mycophenolate mofetil (CELLCEPT) 250 mg capsule Take by mouth twice daily. 4 caps q 12 hours sulfamethoxazole-trimethoprim (BACTRIM DS,SEPTRA DS) 800-160 mg per tablet Take by mouth twice daily. clopidogrel (PLAVIX) 75 mg tablet Take 1 tablet by mouth once daily. fluticasone (FLONASE) 50 mcg/actuation nasal spray Use 2 Sprays in each nostril once daily. Rinse mouth after use. (Patient not taking: Reported on 01/13/2022) Gum Poywul-Ganaap-UEze-Alcohol (MASTISOL ADHESIVE) dpet 1 application as directed. tamsulosin (FLOMAX) 0.4 mg TAKE 1 CAPSULE BY MOUTH EVERYDAY AT BEDTIME blood sugar diagnostic (ONETOUCH ULTRA TEST) test strip Checking blood sugars 3- 4 times daily Insulin [place], Disposable, (BD ULTRAFINE III MINI PEN) 31 gauge x 3/16 use as directed up to four times daily, E11.9 atorvastatin (LIPITOR) 40 mg tablet Take 0.5 tablets by mouth once daily. (Patient taking differently: Take 20 mg by mouth once daily. Taking 20 mg tablet once daily) Blood-Glucose Sensor (DEXCOM G6 SENSOR) darleen Change Sensor every 14 days Patient reading blood sugar 12 times daily Blood-Glucose Meter,Continuous (DEXCOM G4 B OPERATOR-SHARE KIT) misc One [place] device, patient checks blood sugars 12 times daily Blood-Glucose Transmitter (DEXCOM G6 TRANSMITTER) darleen 1 Each as directed. Blood-Glucose Meter,Continuous (DEXCOM G6 B OPERATOR) misc 1 Each as directed. insulin detemir U-100 (LEVEMIR FLEXTOUCH U-100 INSULN) 100 unit/mL (3 mL) inpn injection INJECT 36 UNITS SUBCUTANEOUSLY DAILY AT BEDTIME. Lancets (MICROLET LANCET) lancets Test blood sugar(s) 3-4 times daily. Dx: 250.00 . Insulin: Yes Blood-Glucose Meter (ONETOUCH ULTRA2) monitoring kit 1 Each as needed. 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 No current facility-administered medications for this visit. ALLERGIES No Known Allergies Social History Tobacco Use Smoking status: Former Packs/day: 1.00 Years: 30.00 Pack years: 30.00 Types: Cigarettes Quit date: 05/2019 Years since quittin.7 Smokeless tobacco: Never Vaping Use Vaping Use: Never used Substance Use Topics Alcohol use: Not Currently Drug use: Not Currently Types: Marijuana Comment: occasional--last used cannibis 04/2019 ROS: See HPI PE: BP 136/70 Pulse 80 Temp (Src) 96 (Right Tympanic) Resp 20 Wt 241 lb (109.3kg) Gen: A&OX3, NAD, non-toxic appearing HEENT: PERRLA, EOMs intact b/l, nares without drainage, pharynx without erythema, exudate, lesions,or drainage. Uvula midline. Neck: No LAD, no thyromegaly, no meningismus. CV: RRR, no murmur Lungs: CTA b/l, no wheezing Skin: No rashes, lesions, or wounds on exposed skin. Obese abdomen, non distended No peripheral edema legs Varicose vein changes of legs ASSESSMENT/PLAN: 1. Acute dehydration - ICD9: 276.51, ICD10: E86.0 (primary diagnosis) Resolved symptoms with EMERGENCY DEPARTMENT visit and IVF, f/u with [facility] and monitoring of electrolytes and renal function, he is s/p transplant this year. 2. Encounter for immunization - ICD9: V03.89, ICD10: Z23 - flu vaccine given today 3. Status post kidney transplant - ICD9: V42.0, ICD10: Z94.0 See above 4. Essential hypertension - ICD9: 401.9, ICD10: I10 - good control - Continue current medication(s) - Encouraged dietary sodium restriction/DASH diet - Recommended regular aerobic exercise. - Recommend home blood pressure monitoring, to bring results in on next visit - Goal of BP <130/80 5. 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 6. Diarrhea, unspecified type - ICD9: 787.91, ICD10: R19.7 - resolved. Handy Henderson DO Return if no improvement. Follow up with Handy Henderson DO. To ER if develops chest pain, shortness of breath Discussed risks, benefits, alternatives, and potential side effects of medications. Patient/Guardian expressed understanding and agreed with the plan. See patient instructions. Handy Henderson DO [address] [place] [address] documented in this encounterSelect [facility]11-02-2022 Instructions* Patient Instructions* George Pacheco MD - 02/01/2022 4:18 PM EDT Current Ophthalmic Meds ACULAR 0.5 % ophthalmic solution Use 1 Drop in the right eye two times daily for 2 weeks then stop prednisoLONE acetate (PRED FORTE) 1 % ophthalmic suspension Use 1 Drop in the right eye ftwo times daily for 2 weeks then stop propylene glycoL (SYSTANE COMPLETE) 0.6 % drop Use 1 Drop in both eyes four times daily. The nature of glaucoma was discussed, with emphasis on the non-reversible damage to the optic nerve. Treatment options and the importance of regular examinations and testing were covered in detail, as well as the consequences of non- compliance. The patient was given the opportunity to ask questions. documented in this encounterSelect Medical [facility]11-02-2022 History of Present illness Narrative* George Pacheco MD - 02/01/2022 4:02 PM EDT ASSESSMENT/PLAN: 1. Status post eye surgery - ICD9: V45.69, ICD10: Z98.890 2. POAG both eyes mild stage - Status Post Canaloplasty / Trabeculotomy - Right eye (01/12/2022) Status post Canaloplasty / Trabeculotomy left eye 02/18/2021 Continue: Current Ophthalmic Meds propylene glycoL (SYSTANE COMPLETE) 0.6 % drop Use 1 Drop in both eyes four times daily. ACULAR 0.5 % ophthalmic solution Use 1 Drop in the right eye two times daily for 2 weeks then stop prednisoLONE acetate (PRED FORTE) 1 % ophthalmic suspension Use 1 Drop in the right eye two times daily for 2 weeks then stop. I have confirmed and edited as necessary the relevant ophthalmic history, review of systems, surgical history, and ophthalmological examination findings as obtained by the ophthalmic technical staff.I have seen and examined Андрей Nickerson. I have discussed the examination findings, diagnosis, and treatment options with Андрей Nickerson and/or his family. I have also reviewed and agree with the assessment and plan as stated above and agree with all its relevant components. Igave the patient the opportunity to ask questions about the findings, diagnosis, and treatment options. George Pacheco MD documented in this encounterSelect Medical [facility]10-27-2022 Miscellaneous Notes* Telephone Encounter - Delmy Shane RN - 01/26/2022 9:03 AM EDT Pt states since he is coming up on his year gilberto for his transplant [facility] said they will still manage[facility] immunosuppressants, but hope his PCP will manage the rest of his medications. Pt asking if provider will order his Pepcid for him. Patient has been identified by name and date of : Yes Patient phones for refill(s): Requested Prescriptions Pending Prescriptions Disp Refills famotidine (PEPCID) 20 mg tablet 180 tablet 3 Sig: Take 1 tablet by mouth twice daily. Date of last office visit in primary care: 12/26/21 Future visit: none Last 2 Encounter Wt Readings: Date: Wt: 12/26/2021 112.9 kg (249 lb) 08/17/2021 116.1 kg (256 lb) Previous labs/tests for medication: Blood Pressure: BUN (mg/dL) Date Value 01/17/2022 19 01/26/2021 54 Sodium (mmol/L) Date Value 01/17/2022 137 01/26/2021 140 Last 1 Encounter BP Readings: Date: BP: 01/07/2022 146/82 Liver Function: ALT (U/L) Date Value 12/20/2021 21 01/26/2021 26 AST (U/L) Date Value 12/20/2021 16 01/26/2021 16 Please advise. Thank you. Delmy Shane RN documented in this encounterSelect [facility] History of Present illness Narrative* George Pacheco MD - 01/13/2022 4:03 PM EDT ASSESSMENT/PLAN: 1. Status post eye surgery - ICD9: V45.69, ICD10: Z98.890 - Status Post Canaloplasty / Trabeculotomy - Right eye (01/12/2022) Discontinue Timoptic eyedrops Continue: Current Ophthalmic Meds propylene glycoL (SYSTANE COMPLETE) 0.6 % drop Use 1 Drop in both eyes four times daily. ACULAR 0.5 % ophthalmic solution Use 1 Drop in the right eye four times daily for 28 days. prednisoLONE acetate (PRED FORTE) 1 % ophthalmic suspension Use 1 Drop in the right eye four times daily for 28 days. Return to clinic in 2 weeks for follow up I have confirmed and edited as necessary the relevant ophthalmic history, review of systems, surgical history, and ophthalmological examination findings as obtained by the ophthalmic technical staff.I have seen and examined Андрей Nickerson. I have discussed the examination findings, diagnosis, and treatment options with Андрей Nickerson and/or his family. I have also reviewed and agree with the assessment and plan as stated above and agree with all its relevant components. Igave the patient the opportunity to ask questions about the findings, diagnosis, and treatment options. George Pacheco MD documented in this encounterSelect Medical [facility]10-14-2022 Instructions* Patient Instructions* George Pacheco MD - 01/13/2022 3:59 PM EDT Discontinue Timoptic eyedrops (yellow lid) Continue: Current Ophthalmic Meds propylene glycoL (SYSTANE COMPLETE) 0.6 % drop Use 1 Drop in both eyes four times daily. ACULAR 0.5 % ophthalmic solution Use 1 Drop in the right eye four times daily for 28 days. prednisoLONE acetate (PRED FORTE) 1 % ophthalmic suspension Use 1 Drop in the right eye four times daily for 28 days. If you have any questions please contact our office at [phone]. After office hours or on the weekend, please call Dr. Pcaheco on his cell phone at [phone]. documented in this encounterSelect Medical [facility]10-13-2022 NotePost Operative Note: Post-Procedure Diagnosis: 1. Primary Open Angle Glaucoma Right Eye, Mild Stage Procedure: 1. Canaloplasty using the OMNI Surgical System Right Eye with Trabeculotomy Right Eye Surgeon: George Pacheco MD Resident/Fellow/Other Health Concierge: None Estimated Blood Loss (mL): none Specimen: no Findings: 1. Primary Open Angle Glaucoma Right Eye, Mild Stage Operative Report Dictated: Dictation: not applicable - note contains Operative Report Operative Report: The patient was correctly identified in the pre-op area and the operative eye was marked and verified with the patient in the pre-operative area. The patient was taken to the operating room and time out was performed before starting the procedure. Combined anesthesia and IV sedation and topical Tetracaine eye drops were given. A peribulbar block was given using 2ml of 2% Lidocaine with Epineprhine. The operative eye was prepped and draped in the standard sterile ophthalmic fashion in preparation for ophthalmic surgery. A Swati wire speculum was then placed between the eyelids and the operative microscope was placed over the operative eye. Miochol was injected intracameral. The patient's head was turned to the left side and the microscope was tilted to the right. The anterior chamber was entered on the temporal side with a 1.8mm blade. Discovisc was injected into the anterior chamber. Gonioprism was used to visualize the angle. The Omni surgical System was used to perform Canaloplasty 360 degrees and Trabeculotomy 180 degrees in the nasal quadrant. The bleeding was irrigated out and discovisc was irrigated out. Vigamox was injected intracameral into the operative eye. At the end of the procedure the edges of the incision were hydrated by using balanced salt solution. The anterior chamber was inflated with the help of BSS to moderate tension. The surgical incisions were then inspected and found to be water-tight. The wire speculum and drapes were then removed. Pred Forte eye drops, Acular eye drops and Betadine 5% ophthalmic solution were instilled in the conjunctival sac. The eye was patched and a shield was applied. The patient tolerated the procedure well and was taken to recovery room in stable condition. Attestation: Note Completion: Attending AttestationI performed the procedure without a resident Electronic Signatures: George Pacheco) (Signed 12-Jan-2022 09:29) Authored: Post Operative Note, Note Completion Last Updated: 12-Jan-2022 09:29 by George Pacheco)[facility] 01-12-2022 NoteHistory & Physical Reviewed: I have reviewed the History and Physical dated: 07-Jan-2022 History and Physical reviewed and relevant findings noted. Patient examined to review pertinent physical findings.: No significant changes Home Medications Reviewed: no changes noted Allergies Reviewed: no changes noted ERAS (Enhanced Recovery After Surgery): ERAS Patient: no Consent: COVID-19 Consent: COVID-19 Risk ConsentSurgeon has reviewed guerrero risks related to the risk of terrell COVID-19 and if they contract COVID-19 what the risks are. Electronic Signatures: George Pacheco) (Signed 12-Jan-2022 07:12) Authored: History & Physical Reviewed, ERAS, Consent, Note Completion Last Updated: 12-Jan-2022 07:12 by George Pacheco)[facility] 01-09-2022 Instructions* Patient Instructions* Rosaura Cole, OD - 01/09/2022 5:39 PM EDT ASSESSMENT/PLAN: 1. Hyperopia, bilateral - ICD9: 367.0, ICD10: H52.03 (primary diagnosis) 2. Regular astigmatism, bilateral - ICD9: 367.21, ICD10: H52.223 Continue to wear his glasses with the optional update. 3. Pseudophakia - ICD9: V43.1, ICD10: Z96.1 Posterior chamber intraocular lenses are well positioned. Continue care with Dr. Pacheco. documented in this encounterSelect [facility]10-10-2022 History of Present illness Narrative* Rosaura Cole, OD - 01/09/2022 5:37 PM EDT ASSESSMENT/PLAN: 1. Hyperopia, bilateral - ICD9: 367.0, ICD10: H52.03 (primary diagnosis) 2. Regular astigmatism, bilateral - ICD9: 367.21, ICD10: H52.223 Continue to wear his glasses with the optional update. 3. Pseudophakia - ICD9: V43.1, ICD10: Z96.1 Posterior chamber intraocular lenses are well positioned. Continue care with Dr. Pacheco. Rosaura Cole, OD I have confirmed and edited as necessary the relevant ophthalmic history, ROS, and the neuro exam findings as obtained by others. I have seen and examined this patient. documented in this encounterSelect Medical [facility]10-10-2022 Miscellaneous Notes* Telephone Encounter - Monique Espinal Cma - 01/09/2022 8:31 AM EDT Patient notified and verbalized understanding Monique Espinal Cma * Telephone Encounter - Handy Henderson DO - 01/09/2022 8:16 AM EDT Please inform patient that CT of his chest is overall stable as below. Recommend repeat abdominal US in 6 months to make sure spleen is stable. Handy Henderson DO IMPRESSION: 1. Unchanged left basilar 4 to 5 mm subpleural solid pulmonary nodule adjacent to and obscured by linear atelectasis. Stability consistent with benign postinflammatory findings. 2. Similar to mildly increased trace pericardial effusion. 3. Again noted identifiable thymic tissue unusual for age likely representing stress/reactive changes. 4. Subtle hepatic lesion appears to been present on the 04/22/[address], therefore almost certainly benign finding. 5. Similar to mildly progressive splenomegaly. 6. New trace simple-appearing pleural effusions documented in this encounterSelect [facility]10-08-2022 Instructions* Patient Instructions* George Pacheco MD - 01/07/2022 10:03 AM EDT The nature of glaucoma was discussed, with emphasis on the non-reversible damage to the optic nerve. Treatment options and the importance of regular examinations and testing were covered in detail, as well as the consequences of non- compliance. The patient was given the opportunity to ask questions. Continue: Systane Complete Artificial Tears - Use 1 Drop into both eyes three times a day. Current Ophthalmic Meds timolol maleate (TIMOPTIC) 0.5 % ophthalmic solution Use 1 Drop in the right eye twice daily. Use 1drop 8 AM and 6 PM in right eye If you have any questions please contact our office at [phone]. After office hours or on the weekend, please call Dr. Pacheco on his cell phone at [phone]. documented in this encounterSelect [facility]10-08-2022 History of Present illness Narrative* George Pacheco MD - 01/07/2022 10:01 AM EDT ASSESSMENT/PLAN: 1. Primary open angle glaucoma (POAG) of right eye, mild stage - ICD9: 365.11, 365.71, ICD10: H40.1121 (primary diagnosis) - Uncontrolled Scheduled Canaloplasty/Trabeculotomy right eye 01/12/2022 at [facility]. Target Intraocular pressure:15 Due to the following reason/s: Intraocular pressure not at desired target pressure An inability to comply with medication requirements due to physical or cognitive function Patient reported that the side effects of the medication/s are negatively impacting the patient's quality of life Patient does not desire an additional medication to be added to their existing regimen Patient is having difficulty with their co-payment obligations PHYSICAL EXAM: Vital Signs: Blood pressure 146/82, pulse 78. Respiratory: Normal breath sounds, no wheezing. CARD: Normal heart sounds 1 & 2, normal sinus rhythm. Continue: Current Ophthalmic Meds timolol maleate (TIMOPTIC) 0.5 % ophthalmic solution Use 1 Drop in the right eye twice daily. Use 1drop 8 AM and 6 PM in right eye Systane Complete Artificial Tears - Use 1 Drop into both eyes three times a day. 2. Primary open angle glaucoma (POAG) of left eye, mild stage - ICD9: 365.11, 365.71, ICD10: H40.1111 - Status post Canaloplasty / Trabeculotomy left eye 02/18/2021 - Intraocular pressure well controlled without medication 4. 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 4. Pseudophakia of both eyes - ICD9: V43.1, ICD10: Z96.1 - Intraocular lens in good position both eyes 5. Essential hypertension - ICD9: 401.9, ICD10: I10 6. Hypercholesteremia- E78.00 - Continue care with PCP George Pacheco MD I have confirmed and edited as necessary the relevant ophthalmic history, review of systems, surgical history, and ophthalmological examination findings as obtained by the ophthalmic technical staff.I have seen and examined Андрей Nickerson. I have discussed the examination findings, diagnosis, and treatment options with Андрей Nickerson and/or his family. I have also reviewed and agree with the assessment and plan as stated above and agree with all its relevant components. Igave the patient the opportunity to ask questions about the findings, diagnosis, and treatment options. documented in this encounterSelect Medical [facility]09-12-2022 Instructions* Patient Instructions* George Pacheco MD - 12/12/2021 1:12 PM EDT The nature of glaucoma was discussed, with emphasis on the non-reversible damage to the optic nerve. Treatment options and the importance of regular examinations and testing were covered in detail, as well as the consequences of non- compliance. The patient was given the opportunity to ask questions. Continue: Systane Complete Artificial Tears - Use 1 Drop into both eyes three times a day. Begin: Current Ophthalmic Meds timolol maleate (TIMOPTIC) 0.5 % ophthalmic solution Use 1 Drop in the right eye twice daily. Use 1drop 8 AM and 6 PM in right eye If you have any questions please contact our office at [phone]. After office hours or on the weekend, please call Dr. Pacheco on his cell phone at [phone]. documented in this encounterSelect Medical [facility]09-12-2022 History of Present illness Narrative* George Pacheco MD - 12/12/2021 1:10 PM EDT ASSESSMENT/PLAN: 1. Primary open angle glaucoma (POAG) of right eye, mild stage - ICD9: 365.11, 365.71, ICD10: H40.1121 (primary diagnosis) - uncontrolled Target Intraocular pressure:15 Due to the following reason/s: Intraocular pressure not at desired target pressure An inability to comply with medication requirements due to physical or cognitive function Patient reported that the side effects of the medication/s are negatively impacting the patient's quality of life Patient does not desire an additional medication to be added to their existing regimen Patient is having difficulty with their co-payment obligations PHYSICAL EXAM: Vital Signs: Blood pressure 146/82, pulse 78. Respiratory: Normal breath sounds, no wheezing. CARD: Normal heart sounds 1 & 2, normal sinus rhythm. Continue: Systane Complete Artificial Tears - Use 1 Drop into both eyes three times a day. Begin: Current Ophthalmic Meds timolol maleate (TIMOPTIC) 0.5 % ophthalmic solution Use 1 Drop in the right eye twice daily. Use 1drop 8 AM and 6 PM in right eye Scheduled Canaloplasty/Trabeculotomy right eye 01/12/2022 at [facility]. Return on 01/06/22 to sign glaucoma consents. 2. Primary open angle glaucoma (POAG) of left eye, mild stage - ICD9: 365.11, 365.71, ICD10: H40.1111 - controlled- without medication. 3. Status post eye surgery - ICD9: V45.69, ICD10: Z98.890 -Status post Canaloplasty / Trabeculotomy left eye 02/18/2021 4. 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 5. Pseudophakia of both eyes - ICD9: V43.1, ICD10: Z96.1 6. Essential hypertension - ICD9: 401.9, ICD10: I10 7. Hypercholesteremia- E78.00 - continue care with PCP George Pacheco MD I have confirmed and edited as necessary the relevant ophthalmic history, review of systems, surgical history, and ophthalmological examination findings as obtained by the ophthalmic technical staff.I have seen and examined Андрей Nickerson. I have discussed the examination findings, diagnosis, and treatment options with Андрей Nickerson and/or his family. I have also reviewed and agree with the assessment and plan as stated above and agree with all its relevant components. Igave the patient the opportunity to ask questions about the findings, diagnosis, and treatment options. documented in this encounterSelect Medical [facility]08-11-2022 History of Present illness Narrative* Andrés Frankel, PT - 11/10/2021 2:41 PM EDT Episode Visit Count: 7 Therapist That Will Oversee The Plan Of Care: Andrés Frankel Start of Care Date: 09/13/21 Onset Date: 03/27/21 REHABILITATION AND SPORTS THERAPY PHYSICAL THERAPY DISCONTINUANCE OF CARE PLAN OF CARE UPDATE: Assessment: Андрей Nickerson is discontinued from Physical Therapy services due to goal achievement and maximal benefit.. Patient was seen for 7 visits from Start of Care Date: 09/13/21 to 11/10/2021 and treatment included: Therapeutic exercise, Neuromuscular re-education, and Self-shelter management. Patient has seen improvements in strength, balance, and walking speed. Patient has outstanding prognosis should he continue his HEP as discussed, and no longer requires skilled care to continue to make improvements. Goals updated on 11/10/2021. Goals for Episode of Care: created on 09/13/21 through 12/14/21 [place] in home exercise program. Met Patient will decrease pain rating by 2 points to meet minimal clinical important difference for numeric pain rating scale. Met Patient will demonstrate increase in BLE strength to 4+ to 5/5 during manual muscle testing in order to improve function for leisure / recreation skills, moderate to heavy functional tasks and prior functional Tasks. Met Perform walking, standing, and prolonged activity with decreased report of symptoms/pain in 6-8 weeks. Met Patient will Improve Timed Up and Go to 10 seconds to demonstrate decreased risk of falling. Progressing towards Patient will improve 30 second sit to stand to 10 demonstrate improvement in functional lower extremity strength. Met Patient will increase balance to 5 seconds bilaterally in SLS to demonstrate decreased fall risk. Met Patient Goals: get back to walking in the ern[place] SUBJECTIVE: Patient Reason for Visit: Pt has continued his exercises and walking for exercise this last month. Feels he is continuing to get stronger, but right side seems to be lagging behind the left. Pain: Pain Pain Level: 0 PROMIS Scales T-scores: mean of general population = 50. 5 points is clinically meaningfully difference Percentiles provide an indication of how the patient's score ranks in relation to the general population. Higher percentile rankings indicate better function/quality of life. 50th percentile is the average of the general population and indicates half of respondents had a worse score. T-scores: mean of general population = 50. 5 points is clinically meaningfully difference Percentiles provide an indication of how the patient's score ranks in relation to the general population. Higher percentile rankings indicate better function/quality of life. 50th percentile is the average of the general population and indicates half of respondents had a worse score. OBJECTIVE MEASURES WITH LEVEL OF FUNCTION: LE Strength Trunk Strength: 4-/5 R LE Strength: 4+/5 L LE Strength: 4+/5 Functional Performance Test Results 30 Second Chair Stand Test: 10 reps Timed Up and Go (sec): 11.57 sec 4 Stage Balance Test Single leg stance - right (sec): 6 sec Single leg stance - left (sec): 6 sec TREATMENT: Therapeutic Exercise: 1: *Seated dorsiflexion with band resistance 3x10 2: Objective measures taken 3: STS x10 Skilled Intervention: Patient was educated in proper exercise technique and purpose for exercises. Skilled judgment was provided in selection of appropriate interventions. Provided written instruction for home exercise program to facilitate proper performance and compliance. Correct performance of therapeutic exercises was facilitated with verbal, visual, and tactile cuing. Self-Retirement Management: 1: Discussed pt's HEP, walking program, and getting into a gym as the weather turns Skilled Intervention: Skilled judgment in the selection of proper modification for activity of daily living/home management based on clinical presentation, deficits, and needs. Reviewed patient specific diagnosis in relation to activities of daily living/home management. Activity progression based on professional judgement. Billing Therapeutic Exercise Treatment Minutes: 15 Self-Care/Home Management Treatment Minutes: 10 Total Treatment Time Minutes (timed/untimed): 25 Andrés Frankel PT documented in this encounterSelect Medical [facility]08-08-2022 Instructions* Patient Instructions* George Pacheco MD - 11/07/2021 3:57 PM EDT Systane Complete Artificial Tears - Use 1 Drop into both eyes three times a day. Discontinue the Prednisolone eye drops If you have any questions please contact our office at [phone]. After office hours or on the weekend, please call Dr. Pacheco on his cell phone at [phone]. documented in this encounterSelect Medical [facility]08-08-2022 History of Present illness Narrative* George Pacheco MD - 11/07/2021 3:53 PM EDT ASSESSMENT/PLAN: 1. Primary open angle glaucoma (POAG) of right eye, mild stage - ICD9: 365.11, 365.71, ICD10: H40.1111 (primary diagnosis) 2. Primary open angle glaucoma (POAG) of left eye, mild stage - ICD9: 365.11, 365.71, ICD10: H40.1121 Status post Canaloplasty / Trabeculotomy left eye 02/18/2021 Patient to discontinue the Prednisolone eye drops Follow up in 4 to 5 weeks for Intraocular pressure check 3. 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 Pseudophakia of both eyes - ICD9: V43.1, ICD10: Z96.1 Lens position well centered both eyes George Pacheco MD I have confirmed and edited as necessary the relevant ophthalmic history, review of systems, surgical history, and ophthalmological examination findings as obtained by the ophthalmic technical staff.I have seen and examined Андрей Nickerson. I have discussed the examination findings, diagnosis, and treatment options with Андрей Nickerson and/or his family. I have also reviewed and agree with the assessment and plan as stated above and agree with all its relevant components. Igave the patient the opportunity to ask questions about the findings, diagnosis, and treatment options. documented in this encounterSelect Medical [facility]07-27-2022 Instructions* Patient Instructions* Triny Palmer - 10/26/2021 2:22 PM EDT Diabetes Foot Care Instructions When you have diabetes, proper foot care is very important. Poor foot care may lead to amputation of a foot or leg. As a person with diabetes, you are more vulnerable to foot problems, because diabetes can damage your nerves and reduce blood flow to your feet. Here are some diabetes foot care tips to follow: Wash and Dry Your Feet Daily Use mild soaps Use warm water Pat your skin dry; do not rub. Thoroughly dry your feet. After washing, use lotion on your feet to prevent cracking. Do not put lotion between your toes. Examine Your Feet Each Day Check the tops and bottoms of your feet. Have someone else look at your feet if you cannot see them. Check for dry, cracked skin. Look for blisters, cuts, scratches, or other sores. Check for redness, increased warmth, or tenderness when touching any area of your feet. Check for ingrown toenails, corns, and calluses. If you get a blister or sore from your shoes, do not pop it. Apply a bandage and wear a differentpair of shoes. Take Care of Your Toenails Cut toenails after bathing, when they are soft. Cut toenails straight across and smooth with a nail file. Avoid cutting into the corners of toes. Do not cut cuticles. If you have neuropathy (or decreased sensation in your feet) a track helper should always cut your toenails. Be Careful When Exercising Walk and exercise in comfortable shoes. Do not exercise when you have open sores on your feet. Protect Your Feet With Shoes and Socks Never go barefoot. Always protect your feet by wearing shoes or hard-soled slippers or footwear. Avoid shoes with high heels and pointed toes. Avoid shoes that expose your toes or heels (such as open-toed shoes or sandals). These types of shoes increase your risk for injury and potential infections. Try on new footwear with the type of socks you usually wear. Do not wear new shoes for more than an hour at a time. Change your socks daily. Look and feel inside your shoes before putting them on to make sure there are no foreign objects orrough areas. Avoid tight socks. Wear natural-fiber socks (cotton, wool, or a cotton-wool blend). Wear special shoes if your health care provider recommends them. Wear shoes/boots that will protect your feet from various weather conditions (cold, moisture, etc.). Make sure your shoes fit properly. If you have neuropathy (nerve damage), you may not notice that your shoes are too tight. Perform the footwear test described below. Footwear Test Use this simple test to see if your shoes fit correctly: Stand on a piece of paper. (Make sure you are standing and not sitting, because your foot changes shape when you stand.) Trace the outline of your foot. Trace the outline of your shoe. Compare the tracings: Is the shoe too narrow? Is your foot crammed into the shoe? The shoe should be at least 1/2 inch longer than your longest toe and as wide as your foot. Proper Shoe Choices The following types of shoes are best for people with diabetes Closed toes and heels Leather uppers without a seam inside At least 1/2 inch extra space at the end of your longest toe Inside of shoe should be soft with no rough areas Outer sole should be made of stiff material Shoes should be at least as wide as your feet Tips for Foot Care in Diabetes Don't wait to treat a minor foot problem if you have diabetes. Follow your health care provider's guidelines and first aid guidelines. Report foot injuries and infections to your health care provider immediately. Check water temperature with your elbow, not your foot. Do not use a heating pad on your feet. Do not cross your legs. Do not self-treat your corns, calluses, or other foot problems. Go to your health care provider or track helper to treat these conditions. documented in this encounter[facility] History of Present illness Narrative* Triny Palmer - 10/26/2021 2:14 PM EDT Last saw Dr. Henderson: 08/17/21 Subjective: This 61 year old male presents to clinic for diabetic foot check.. Patient admits to being diabetic for many years now. Patient +B/T/N in feet at this time. Patient -pain in legs when walking. No other pedal complaints at this time. No change in medications or medical history since last visit. Patient is s/p kidney transplant. PAIN EVALUATION No data found in the last 1 encounters. Hemoglobin A1C (%) Date Value 10/24/2021 5.6 10/10/2021 5.8 10/04/2021 5.9 09/27/2021 5.9 08/30/2021 6.9 01/26/2021 6.7 02/06/2019 7.7 11/20/2018 8.8 07/29/2018 7.2 01/30/2018 10.0 04/03/2017 9.5 01/26/2017 8.9 PCP: Handy Henderson, PAST MEDICAL HISTORY Diagnosis Date Arrhythmia CKD (chronic kidney disease) stage 3, GFR 30-59 ml/min ([facility]) [facility] Coronary artery disease 2006 s/p PCI. 3 stents total Diabetes type 1, uncontrolled 1971 nephropathy, retinopathy, dx age 10, Dr[facility] Leon [facility] Heart attack ([facility]) Hyperlipidemia Hypertension Lacunar stroke ([facility]) Macular edema [facility] MVP (mitral valve prolapse) Pancreatitis Proliferative diabetic retinopathy(362.02) [facility] Snoring Stroke ([facility]) 2017 Tobacco abuse Current Outpatient Medications Medication Sig sirolimus (RAPAMUNE) 0.5 mg tablet Take 3 tablets by mouth once daily. carvedilol (COREG) 12.5 mg tablet Take 1 tablet by mouth q 12 HR. mycophenolate mofetil (CELLCEPT) 250 mg capsule Take by mouth twice daily. sulfamethoxazole-trimethoprim (BACTRIM DS) 800-160 mg per tablet Take by mouth twice daily. albuterol HFA (PROVENTIL HFA, VENTOLIN HFA) 90 mcg/actuation inhaler Inhale 2 Puffs as instructed every 6 hours as needed for wheezing/shortness of breath. latanoprost (XALATAN) 0.005 % ophthalmic solution Use 1 Drop in both eyes daily at bedtime. Use at 10:00 PM propylene glycoL (SYSTANE COMPLETE) 0.6 % drop Use 1 Drop in both eyes four times daily. docusate sodium (COLACE) 100 mg capsule Take 100 mg by mouth twice daily. famotidine (PEPCID) 20 mg tablet Take 20 mg by mouth twice daily. mycophenolate mofetil (CELLCEPT) 250 mg capsule Take by mouth twice daily. 4 caps q 12 hours sulfamethoxazole-trimethoprim (BACTRIM DS,SEPTRA DS) 800-160 mg per tablet Take by mouth twice daily. valGANciclovir (VALCYTE) 450 mg tablet Take 450 mg by mouth. 1 tablet every 48 hours clopidogrel (PLAVIX) 75 mg tablet Take 1 tablet by mouth once daily. furosemide (LASIX) 80 mg tablet Take 80 mg by mouth twice daily. tamsulosin (FLOMAX) 0.4 mg TAKE 1 CAPSULE BY MOUTH EVERYDAY AT BEDTIME blood sugar diagnostic (ONETOUCH ULTRA TEST) test strip Checking blood sugars 3- 4 times daily Insulin [place], Disposable, (BD ULTRAFINE III MINI PEN) 31 gauge x 3/16 use as directed up to four times daily, E11.9 atorvastatin (LIPITOR) 40 mg tablet Take 0.5 tablets by mouth once daily. (Patient taking differently: Take 20 mg by mouth once daily. Taking 20 mg tablet once daily ) Blood-Glucose Sensor (DEXCOM G6 SENSOR) darleen Change Sensor every 14 days Patient reading blood sugar 12 times daily Blood-Glucose Meter,Continuous (DEXCOM G4 B OPERATOR-SHARE KIT) misc One [place] device, patient checks blood sugars 12 times daily Blood-Glucose Transmitter (DEXCOM G6 TRANSMITTER) darleen 1 Each as directed. Blood-Glucose Meter,Continuous (DEXCOM G6 B OPERATOR) misc 1 Each as directed. Lancets (MICROLET LANCET) lancets Test blood sugar(s) 3-4 times daily. Dx: 250.00 . Insulin: Yes Blood-Glucose Meter (ONETOUCH ULTRA2) monitoring kit 1 Each as needed. 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 sirolimus (RAPAMUNE) 1 mg tablet (Patient not taking: Reported on 10/26/2021 ) sofosbuvir-velpatasvir 400-100 mg Take by mouth. (Patient not taking: Reported on 10/26/2021 ) valGANciclovir (VALCYTE) 450 mg tablet Take by mouth. (Patient not taking: Reported on 10/26/2021 ) everolimus, immunosuppressive, (ZORTRESS) 1 mg tablet Take 1 mg by mouth twice daily. (Patient not taking: Reported on 10/26/2021 ) dorzolamide-timolol (COSOPT) 22.3-6.8 mg/mL ophthalmic solution Use 1 Drop in both eyes twice daily. Use at 9 AM and 3 PM nystatin (MYCOSTATIN) 100,000 unit/mL susp Take 5 mL by mouth four times daily. Swish and swallow. (Patient not taking: Reported on 10/26/2021 ) oxyCODONE-acetaminophen (PERCOCET) 5-325 mg tablet Take by mouth every 8 hours as needed for pain. (Patient not taking: Reported on 10/26/2021) LTVVNRNIZA-DXMHTRAR-LKPDBDOKPC ORAL Take by mouth. 400-100 daily (Patient not taking: Reported on 10/26/2021 ) tacrolimus IR (PROGRAF) 1 mg capsule Take 1 mg by mouth twice daily. fluticasone (FLONASE) 50 mcg/actuation nasal spray Use 2 Sprays in each nostril once daily. Rinse mouth after use. (Patient not taking: Reported on 10/26/2021 ) collagenase (SANTYL) ointment Apply to affected area once daily. On right leg wound (Patient not taking: Reported on 10/26/2021 ) Gum Jktmwu-Ltuabz-SWgd-Alcohol (MASTISOL ADHESIVE) dpet 1 application as directed. (Patient not taking: Reported on 10/26/2021 ) gentamicin 0.1% 0.1 % cream Apply to affected area. (Patient not taking: Reported on 10/26/2021 ) sucroferric oxyhydroxide (VELPHORO ORAL) Take 1,500 mg PE by mouth w MEALS. (Patient not taking: Reported on 10/26/2021 ) calcitriol (ROCALTROL) 0.5 mcg capsule Take 0.5 mcg by mouth once daily. (Patient not taking: Reported on 10/26/2021 ) NEPHRO-SOMMER 0.8 mg tab Take 1 tablet by mouth once daily. (Patient not taking: Reported on 10/26/2021 ) carvedilol (COREG) 12.5 mg tablet Take 12.5 mg by mouth twice daily with meals. (Patient not taking: Reported on 10/26/2021 ) metoprolol tartrate, short acting, (LOPRESSOR) 100 mg tablet Take 1 tablet by mouth once daily. (Patient not taking: Reported on 10/26/2021 ) insulin detemir U-100 (LEVEMIR FLEXTOUCH U-100 INSULN) 100 unit/mL (3 mL) inpn injection INJECT 36 UNITS SUBCUTANEOUSLY DAILY AT BEDTIME. (Patient not taking: Reported on 02/19/2021 ) No current facility-administered medications for this visit. ALLERGIES No Known Allergies PAST SURGICAL HISTORY Procedure Laterality Date AVASTIN (BEVACIZUMAB) 1.25MG INTRAVITREAL INJECTION OS (LEFT EYE) x5 (04/16/2015) Dr. Connelly CARDIAC CATH 2005, 2008, 2011 mid / distal LAD stents DENISHA COLONOSCOPY FLX DX W/COLLJ SPEC WHEN PFRMD 10/08/2018 Colonoscopy PAST SURGICAL HISTORY OF Bilateral Keratectomy PAST SURGICAL HISTORY OF N/A 03/19/2020 Laparoscopic peritoneal dialysis catheter placement with omentopexy- Shamir Tsai MD PAST SURGICAL HISTORY OF 03/2020 PD Catheter PAST SURGICAL HISTORY OF Left 02/18/2021 Canaloplasty / Trabeculotomy TRANSPLANTATION OF KIDNEY Right 03/27/2021 XCAPSL CTRC RMVL INSJ IO LENS PROSTH W/O ECP Left 03/10/2015 Cataract Extraction with PC IOL XCAPSL CTRC RMVL INSJ IO LENS PROSTH W/O ECP Right 04/01/2015 Cataract Extraction with PC IOL FAMILY HISTORY Problem Relation Age of Onset Diabetes Mother Thyroid Mother Hyperlipidemia Mother Hypertension Mother No Known Problems Father No Ocular Disease Other Social History Tobacco Use Smoking status: Former Smoker Packs/day: 1.00 Years: 30.00 Pack years: 30.00 Types: Cigarettes Quit date: 05/2019 Years since quittin.4 Smokeless tobacco: Never Used Vaping Use Vaping Use: Never used Substance Use Topics Alcohol use: Not Currently Drug use: Not Currently Types: Marijuana Comment: occasional--last used cannibis 04/2019 REVIEW OF SYSTEMS GENERAL: Negative for Malaise, significant weight loss, fever RESPIRATORY: Negative for cough, wheezing and shortness of breath CARDIOVASCULAR: Negative for chest pain, leg swelling and palpitations GI: Negative for abdominal discomfort, blood in stools or black stools and change in bowel habits : Negative for dysuria, frequency and incontinence MUSCULOSKELETAL: Negative for joint pain or swelling, back pain, and muscle pain. SKIN: Negative for lesions, rash, and itching. HEMATOLOGY/LYMPHOLOGY Negative for prolonged bleeding, bruising easily, and swollen nodes. ENDOCRINE: Negative for cold or heat intolerance, polyuria, polydipsia and goiter. NEURO: negative The remainder of the review of systems is noncontributory. Objective: Patient presents to clinic ambulating in [facility] Constitutional: Pt is a well developed 61 year old male who is alert, oriented, cooperative and in no apparent distress. Eyes: Following during examination. No redness or drainage. Respiratory: RR normal and nonlabored. Even breathing. No evidence of distress. Psychology: Patient is engaged during conversation. Normal affect and mood. Does not appear depressed or anxious. Vasc: DP and PT pulses are palpable bilateral. CFT is less than 5 seconds bilateral. Skin temperature is warm to warm proximal to distal bilateral. There is moderate edema or varicosities noted. Hair growth present. Neuro: Protective sensation is intact to the foot and toes when tested with the 5.07 SWM bilateral.Vibratory sensation is decreased at the hallux bilateral. + Significant neurological defecits. Derm: Inspection and palpation performed. Nails 1-5 b/l are painful, discolored- yellow, thick, crumbly, dystrophic and with subungal debris. Skin is of normal turgor and texture. Hyperkeratosis notedto not present. NO ulcerations, scars, verruca or other lesions noted. Ortho: Ankle joint DF is full with the knee extended and full with knee flexed. No pain or crepitusnoted. STJ, MTJ ROM are full and free of pain or crepitus. Muscle strength is 5/5 for dorsiflexors,plantarflexors, inverters, everters. Digital deformities include no. Assessment: (B35.1) Onychomycosis (primary encounter diagnosis) (M79.755) Pain in toe of left foot (M79.674) Pain in toe of right foot (E11.49) Other diabetic neurological complication associated with type 2 diabetes mellitus (HCC) (I87.2) Venous insufficiency Plan: 1. Patient was seen and evaluated. 2. Patient was instructed on the continued importance of diabetic foot care along with proper diet and keeping their blood sugar under control to prevent complications. Instructions given both oral and written. 3. Toenails 1-5 b/l debrided in length and thickness 4. Discussed swelling in right leg. No calf pain. Recommend compression stockings for which he already has. Informed patient that swelling of legs can lead to venous leg ulceration. He has very smallscab on front of right leg. He will monitor. If any wounds were to develop, he will contact the office. Triny Palmer DPM * Queenie Cortés RN - 10/26/2021 1:48 PM EDT AMB ROOMING INTAKE FLOWSHEET DATA Patient presents with: Left Foot - Established Patient, Diabetic Foot Exam Right Foot - Established Patient, Diabetic Foot Exam Patient here for diabetic foot exam. Had kidney transplant 03/27/21. documented in this encounter[facility] History of Present illness Narrative* Telma Rosenthal RN - 10/13/2021 2:30 PM EDT Images from the original note were not included. PREP SHEET FOR NEPHROLOGY CLINIC Patient Name: Андрей Nickerson On Site Coordinator: Андрей Reyes Date of Kidney Transplant: 03/27/2021 Primary Disease: Diabetes Mellitus - Type I Transplant Cafe Lead: Migel Ramirez Primary Care physician: Handy Henderson Last Transplant Appointment: 07/06/2021 MONITORING: MONITORING COMMENTS DGF Yes HLA Match: A1 B1 DR0 Living Donor? No [place] Recipient? No [place] ID Follow-up Testing 04/24/2021 to 05/22/2021 Date labs Complete: 05/02/2021 EBV IgG Donor / Recipient R+ CMV IgG Donor / Recipient: D+ / R- On Valcyte or frequent labs? Valcyte 450 mg po every other day, then PCR monthly X 3 Ureteral Stent? yes Removed / Removal Sched? 04/20/2021 Hepatitis C+/ADAMARIS+ donor? yes [place] Status In Protocol Box yes Has recipient converted to Hep C+? Yes If yes - obtain HCV genotype for PA process for Hep C tx Genotype 1a PA for HCV submitted? Yes Submitted on 04/13/2021 Approved 04/20/2021 for [employer] Authorization number: [id number] Patient started treatment? 04/26/2021 If contacted by pharmacy: Hep C PCR- one month after start of treatment 05/27/2021 Hep C PCR at completion of HCV therapy collected on: 07/19/21 Completed on 07/06/21 Hep C PCR 3 months post completion collected on: 10/11/21 IMMUNOSUPPRESSION AND LABS: Current Immunosuppressive Medication(s) Immunosuppressive Agents mycophenolate mofetil (CELLCEPT) 250 MG capsule Take 4 capsules by mouth every 12 hours. Diagnosis Code: ICD 9:V42.0, ICD 10:Z94.0 - Kidney transplant. Date of Transplant: 03/27/2021. sirolimus (RAPAMUNE) 0.5 MG tablet Take 3 tablets by mouth daily. I/S levels: Lab Results Component Value Date SIROLIMUS 5.7 09/19/2021 SIROLIMUS 3.9 08/30/2021 SIROLIMUS 7.1 08/22/2021 CHEMISTRY: Lab Results Component Value Date CREATSERUM 2.46 10/04/2021 CREATSERUM 2.47 09/27/2021 CREATSERUM 2.33 09/19/2021 HEMATOLOGY: Lab Results Component Value Date WBC 5.38 10/04/2021 WBC 5.29 09/27/2021 WBC 5.3 09/19/2021 Lab Results Component Value Date HGB 9.4 10/04/2021 HGB 9.0 09/27/2021 HGB 9.0 09/19/2021 IMMUNOLOGY: Lab Results Component Value Date CMVPCR <50 06/15/2021 EBVBYPCR <1,000 06/15/2021 BKVIRALP 746 (H) 05/11/2021 CURRENT MEDICATIONS: CUSTOM MEDICATION, Dexcom G6 Sensor, Dexcom G6 Transmitter, GLUCOSE MONITOR LANCETS PRESCRIPTION, Glucagon Emergency, ONE TOUCH ULTRASOFT LANCETS, Propylene Glycol, Tamsulosin HCl, acetaminophen, albuterol, atorvastatin, carveDILOL, clopidogrel, docusate, glucagon, glucose blood test strips, insulin aspart, mycophenolate mofetil, prednisoLONE acetate, senna, sirolimus, sofosbuvir- velpatasvir, sulfamethoxazole-trimethoprim, and valGANciclovir [place] [id number] Change in lab frequency / new order today: Yes/every 2 weeks Labs needed in clinic today? yes COORDINATOR NOTES: * Telma Rosenthal RN - 10/13/2021 2:30 PM EDT Const: negative for fever and hot flashes, malaise Ophthalmic: positive for - uses glasses ENT: negative heaches CV: positive for - edema Lungs: negative for cough, shortness of breath and sputum changes GI: negative for abdominal pain, blood in stools, change in bowel habits, change in stools, hematemesis and melena, appetite loss and nausea/vomiting : negative for dysuria and hematuria MSK: positive for - joint pain Neuro: negative for confusion Psych: negative for depression, alert, oriented Derm: negative for rash or pruritus. Recommend Dermatology. The remainder of the system review is negative. * Migel Gómez MD - 10/13/2021 2:30 PM EDT Images from the original note were not included. Today we were happy to see Андрей Nickerson at [facility] [place] [facility] for evaluation and management of immunosuppression and associated conditions in the setting of solid organ transplantation. As you may be aware Mr. Nickerson is a 61 y.o. 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 He received a Donation after Brain donor Kidney transplanton 03/27/21. The patient s problem, allergy and medication lists have been reviewed and updated today. REVIEW OF SYSTEMS: The patient currently endorses no complains and denies chest pain, shortness of breath, nausea or emesis. Otherwise all other systems are per HPI or negative. MEDICATIONS: Current Outpatient Medications Medication Sig acetaminophen 325 MG tablet Take 2 tablets by mouth every 6 hours as needed for Mild Pain or Pain (breakthrough). albuterol 108 (90 Base) MCG/ACT Aero Soln inhaler Inhale 1-2 puffs every 6 hours as needed for Shortness of Breath. atorvastatin 40 MG tablet take 1 Tab by mouth daily. carveDILOL 12.5 MG tablet Take 1 tablet by mouth every 12 hours. clopidogrel 75 MG tablet take 1 Tab by mouth daily. Dexcom G6 Sensor Misc Change Sensor every 14 days Patient reading blood sugar 12 times daily Dexcom G6 Transmitter Misc CHANGE EVERY 90 DAYS docusate 100 MG capsule Take 1 capsule by mouth 2 times daily as needed for Constipation. Hold for loose stool Glucagon, rDNA, (Glucagon Emergency) 1 MG Kit Inject 1 Dose as directed as needed (Low glucose levels.). Glucagon, rDNA, 1 MG IJ KIT by Subcutaneous route. Use as directed (Patient taking differently: Inject 1 mg under the skin as needed for Low blood sugar.) glucose blood test strips (ONE TOUCH TEST STRIPS) STRP PT TESTING 6XS DAILY GLUCOSE MONITOR LANCETS PRESCRIPTION DM1 on Pump insulin aspart (NOVOLOG) 100 UNIT/ML SC SOLN Per pump - uses approximately 50-70 per day. mycophenolate mofetil (CELLCEPT) 250 MG capsule Take 4 capsules by mouth every 12 hours. Diagnosis Code: ICD 9:V42.0, ICD 10:Z94.0 - Kidney transplant. Date of Transplant: 03/27/2021. ONE TOUCH ULTRASOFT LANCETS XX MISC 6 times daily prednisoLONE acetate 1 % Suspension ophthalmic suspension Place 1 drop in both eyes 2 times daily. Propylene Glycol (Systane Balance) 0.6 % Solution Place 1 drop in both eyes daily. senna 8.6 MG tablet Take 1 tablet by mouth daily as needed for Constipation. sirolimus (RAPAMUNE) 0.5 MG tablet Take 3 tablets by mouth daily. sulfamethoxazole-trimethoprim 800-160 MG per tablet Take 1 tablet by mouth every other day. Tamsulosin HCl 0.4 MG capsule Take 0.4 mg by mouth daily. valGANciclovir 450 MG tablet Take 1 tablet by mouth every 48 hours. CUSTOM MEDICATION Please obtain AM everolimus level prior to morning dose and fax to Dr. Leon Skinner at [phone] CUSTOM MEDICATION Please obtain weekly BMP and CBC for two weeks and fax results to Dr. Leon Skinner at [phone]. sofosbuvir-velpatasvir 400-100 MG tablet Take 1 tablet by mouth daily. PHYSICAL EXAM: VITALS: Blood pressure 144/71, pulse 69, temperature 98.1 F (36.7 C), temperature source Temporal, weight 115.2 kg (254 lb). GENERAL: Alert and oriented x 3 in no apparent Distress HEENT: Normocephalic, EOMI, Moist Oral Membranes, Neck Soft/Supple CV: Regular Rhythm, Positive S1 / S2, Negative for Rubs PULM: Bilateral Breath Sounds. No Wheezes, Crackles, Rubs, [place] ABD: Soft, Non-Tender, Positive Bowel Sounds : Transplanted Graft Palpable. Non-Tender, Erythematous, or Warm EXT: Symmetric, Mobile, No Cyanosis or Clubbing LABORATORY VALUES: Lab Results Component Value Date WBC 5.23 10/10/2021 HGB 9.7 10/10/2021 PLATELET 197 10/10/2021 Lab Results Component Value Date SODIUM 142 10/10/2021 POTASSIUM 4.9 10/10/2021 CHLORIDE 113 10/10/2021 CO2 19 10/10/2021 BUN 24 10/10/2021 CREATSERUM 2.39 10/10/2021 GLUCOSE 151 10/10/2021 Lab Results Component Value Date CALCIUM 9.7 10/10/2021 PHOSPHORUS 2.4 10/10/2021 ASSESSMENT AND PLAN: Status Post-Transplant: ICD10: Z94.0 Stable All Txt: 03/27/2021 (Kidney) Lab Results Component Value Date CREATSERUM 2.39 10/10/2021 Patient is within the usual baseline. No interventions are warranted at this time. Immunosuppression Management: ICD10: Z09 High Risk Medical Decision Making For Drug Therapy Requiring Intensive Monitoring For Toxicity Current Immunosuppression: Current Immunosuppressive Medication(s) Immunosuppressive Agents mycophenolate mofetil (CELLCEPT) 250 MG capsule Take 4 capsules by mouth every 12 hours. Diagnosis Code: ICD 9:V42.0, ICD 10:Z94.0 - Kidney transplant. Date of Transplant: 03/27/2021. sirolimus (RAPAMUNE) 0.5 MG tablet Take 3 tablets by mouth daily. I/S levels: No results found for: CYCLOSPORIN, CYCLOSPORIN2, [id number], CYCLORAND Lab Results Component Value Date SIROLIMUS 5.7 09/19/2021 Lab Results Component Value Date EVRLMSTRGH 4.8 06/21/2021 EVERTRGHMANE 15.8 07/11/2021 Lab Results Component Value Date TACROLIMUS 9.4 06/17/2021 TACROTRGHMAN <2.0 10/10/2021 TACRORAND 13.2 (H) 06/15/2021 No Changes are warranted at this time. Will continue intensive monitoring for drug levels and toxicity via regularly scheduled laboratory assays given the narrow therapeutic index of the immunosuppressive drug therapy listed above. Hypertension: ICD10: I15.1 Stable Blood Pressure in clinic as noted above. Per the patient home systolic blood pressures have been averaging in the 120-130's These values are acceptable. An intervention is not indicated at this time. Anemia: ICD10: D64.9 Stable Lab Results Component Value Date HGB 9.7 10/10/2021 Acceptable per current post-transplant protocols. An intervention is not indicated at this time. Proteinuria: ICD10: R80.8 Stable Lab Results Component Value Date PROTCREATRAT 0.5 10/10/2021 At Goal. An intervention is not indicated at this time. Hyperphosphatemia: ICD10: E83.39 Stable Last Phosphorous Level: Lab Results Component Value Date PHOSPHORUS 2.4 10/10/2021 A phosphorus binder is not indicated at this time. Hypercalcemia: E83.52 Stable Last Calcium Level: Lab Results Component Value Date CALCIUM 9.7 10/10/2021 No interventions are warranted at this time. Secondary Hyperparathyroidism: ICD10:E21.2 Stable Last PTH Lab Results Component Value Date PTH 156 10/10/2021 No interventions are warranted at this time. Hyperlipidemia: E78.2 Stable Lab Results Component Value Date CHOLESTEROL 85 10/10/2021 HDL 41 10/10/2021 TRIG 61 10/10/2021 An intervention is not indicated at this time. Counseling: ICD10: V71.9 Mr. Nickerson was counseled on: The need to avoid sun exposure and the use of sunblock while outdoors given the relatively higher risk of skin malignancy in an immunosuppressed state. The need for adherence to immunosuppression medication. Patient verbalized understanding. Follow-Up: The patient will continue to follow-up with us in clinic per our pre-established follow-up protocol, however we will see patient earlier should the need arise. Patient will continue to follow-up withhis primary care provider for non- transplant related issues and medication refills. We have orderedtransplant specific labs per the center s guidelines to monitor and assess for toxicities from immunosuppressant drug therapy. Thank you for allowing us to partake in the care of your patient. Should you have any questions please do not hesitate to contact me. Sincerely Yours, Migel Gómez MD, ANGELIC Malware Analyst of Clinical Medicine [facility] documented in this encounter[facility] Instructions* Patient Instructions* Telma Rosenthal RN - 10/13/2021 8:59 AM EDT - Additional labs are due today in clinic. Check routine labs every 2 weeks. - Reminder: set up an appointment with Dermatology. - Return to clinic in last October with RAYO. documented [facility] History of Present illness Narrative* Andrés Frankel, PT - 10/11/2021 2:52 PM EDT Episode Visit Count: 6 Therapist That Will Oversee The Plan Of Care: Andrés Frankel Start of Care Date: 09/13/21 Onset Date: 03/27/21 REHABILITATION AND SPORTS THERAPY PHYSICAL THERAPY PROGRESS REPORT PLAN OF CARE UPDATE: Assessment: Андрей Nickerson demonstrates moderate improvement in rising from a chair, standing, walking and stair negotiation. He hasprogressed toward goals. Patient continues to present with impairments in ADL's, gait, overall function and strength that interfere with . Current prognosisis Good due to: current objective clinical presentation;positive past response to therapy;good support system/ coping skills . He will benefit from continued skilled therapy services to meet the updated goals for this plan of care as noted below. Goals updated on 10/11/2021. Goals for Episode of Care: created on 09/13/21 through 12/14/21 [place] in home exercise program. Met Patient will decrease pain rating by 2 points to meet minimal clinical important difference for numeric pain rating scale. Met Patient will demonstrate increase in BLE strength to 4+ to 5/5 during manual muscle testing in order to improve function for leisure / recreation skills, moderate to heavy functional tasks and prior functional Tasks. Progressing towards Perform walking, standing, and prolonged activity with decreased report of symptoms/pain in 6-8 weeks. Met, goal to maintain Patient will Improve Timed Up and Go to 10 seconds to demonstrate decreased risk of falling. Progressing towards Patient will improve 30 second sit to stand to demonstrate improvement in functional lower extremity strength. Met, goal now 10 Patient will increase balance to 10 seconds bilaterally in tandem stance to demonstrate decreased fall risk. Met, goal 5 sec/side in SLS Patient Goals: get back to walking in the [place] Planned Interventions, Frequency, and Duration: 1 visit, 4 weeks Total Number of Visits Planned: 1 Patient to be seen for Therapeutic exercise (51735);Neuromuscular re-education (38482);Manual therapy (94522);Therapeutic activities (33280);Self-shelter management (69229);Gait Training (65061);Patient/Family/Caregiver Education;Body Mechanics Training PLAN FOR NEXT VISIT: [place] SUBJECTIVE: Patient Reason for Visit: Pt reports balance is better, walking more, and does not haveto think about what he is doing as often- gives example of getting into/out of shower. Pain: Pain Pain Level: 0 PROMIS Scales T-scores: mean of general population = 50. 5 points is clinically meaningfully difference Percentiles provide an indication of how the patient's score ranks in relation to the general population. Higher percentile rankings indicate better function/quality of life. 50th percentile is the average of the general population and indicates half of respondents had a worse score. T-scores: mean of general population = 50. 5 points is clinically meaningfully difference Percentiles provide an indication of how the patient's score ranks in relation to the general population. Higher percentile rankings indicate better function/quality of life. 50th percentile is the average of the general population and indicates half of respondents had a worse score. OBJECTIVE MEASURES WITH LEVEL OF FUNCTION: LE Strength Trunk Strength: 3+/5 R LE Strength: 4+/5 L LE Strength: 4+/5 Functional Performance Test Results 30 Second Chair Stand Test: 9 reps Timed Up and Go (sec): 11.81 sec 4 Stage Balance Test Tandem base of support (sec): 10 sec Single leg stance - right (sec): 3 sec Single leg stance - left (sec): 6 sec TREATMENT: Therapeutic Exercise: 1: reviewed HEP 2: Objective measures taken 3: STS x9 Skilled Intervention: Patient was educated in proper exercise technique and purpose for exercises. Skilled judgment was provided in selection of appropriate interventions. Provided written instruction for home exercise program to facilitate proper performance and compliance. Correct performance of therapeutic exercises was facilitated with verbal, visual and tactile cuing. Neuromuscular Re-Education: 1: NBOS, SLS, tandem stance 3x max each 2: TUG performed (gait belt utilized for safety) Skilled Intervention: Skilled judgment used to assess appropriate program for balance and coordination activity. Insured patient safety with use of Gait belt Billing Therapeutic Exercise Treatment Minutes: 15 Neuromuscular Re-Education Treatment Minutes: 10 Total Treatment Time Minutes (timed/untimed): 25 Andrés Frankel PT documented in this encounterSelect [facility] History of Present illness Narrative* Andrzej Rosario, PT - 10/07/2021 2:56 PM EDT Episode Visit Count: 5 Therapist That Will Oversee The Plan Of Care: Andrés Frankel Start of Care Date: 09/13/21 Onset Date: 03/27/21 Patient Identified by Name and Date of : Yes REHABILITATION AND SPORTS THERAPY PHYSICAL THERAPY TREATMENT NOTE ASSESSMENT: Андрей Nickerson tolerated the session with no issues. He demonstrated improvements in tolerance for exercises and home activities.. The patient will continue to benefit from ongoing skilled physical therapy for reassessment by supervising therapist. PLAN FOR NEXT VISIT: POC update SUBJECTIVE: Patient Reason for Visit: Patient reports greater ease of walking , getting in and out of shower and going up and carlos steps. No pain currently Pain: Pain Pain Level: 0 Post Treatment Pain Post Treatment Pain Level: No Change OBJECTIVE MEASURES WITH LEVEL OF FUNCTION: Improved tolerance for sit to stance. TREATMENT: Therapeutic Exercise: 1: LocoMobiFit stepper seat 13 , resistance 2.5 x 5 minutes. (subjective taken) 2: Sit to stand from chair with no UE assist 1x 10 and 1x5 3: Seated right and left hamstring stretch heel on floor 3x10 seconds 4: Seated toe raises 1x20 5: Standing calf raises 2x20 6: Standing at // bars hip abduction B 2x12 7: Standing at // bars hip extension 2x12 Skilled Intervention: Patient was educated in proper exercise technique and purpose for exercises. Skilled judgment was provided in selection of appropriate interventions. Correct performance of therapeutic exercises was facilitated with verbal and visual cuing. Neuromuscular Re-Education: 1: Balance board taps front to back and side to side x20 each 2: Balance board holds x30 sec each way 3: Airex semi-tandem stance 2x30 sec/way 4: Airex eyes closed feet together 2x30 sec 5: Tandem stance on level leading with right and left x 30 seconds each. 6: Forward and backward stepping over 6 reggie 1 UE assist 1x10 Skilled Intervention: Skilled judgment used to assess appropriate program for balance and coordination activity. Insured patient safety with use of gait belt and contact guard assist. Billing Therapeutic Exercise Treatment Minutes: 23 Neuromuscular Re-Education Treatment Minutes: 22 Total Treatment Time Minutes (timed/untimed): 45 Theodora Mejia, [employer] Andrzej Rosario, PT documented in this encounterSelect [facility]07-[facility]22 History of Present illness Narrative* Ida Horowitz, PT - 10/04/2021 2:47 PM EDT Episode Visit Count: 4 Therapist That Will Oversee The Plan Of Care: Andrés Frankel Start of Care Date: 09/13/21 Onset Date: 03/27/21 Patient Identified by Name and Date of : Yes REHABILITATION AND SPORTS THERAPY PHYSICAL THERAPY TREATMENT NOTE ASSESSMENT: Андрей Nickerson tolerated the session with expected muscle soreness. He demonstrated difficulty with right posterior knee soreness with weight bearing and no pain at rest. He isprogressing with gait and balance and is walking in therapy with no st cane.. The patient will continue to benefit from ongoing skilled physical therapy to progress toward set goals. PLAN FOR NEXT VISIT: Add hurdles forward and lateral SUBJECTIVE: Patient Reason for Visit: Patient reports feeling stronger. He does reports having soreness right posterior knee which started yesterday. Pain: Pain Pain Level: 3 Pain Location: Knee - Right (posterior) Description: Sore Frequency: Intermittent Post Treatment Pain Post Treatment Pain Level: No Change Post Treatment Symptoms: no pain in right knee at rest and pain with weight bearing OBJECTIVE MEASURES WITH LEVEL OF FUNCTION: Gait on level in department with no st cane with good form and balance today. TREATMENT: Therapeutic Exercise: 1: SciFit stepper seat 13 , resistance 2.5 x 5 minutes. 2: Sit to stand from chair with no UE assist x 10 3: Seated right hamstring stretch heel on floor 3x10 seconds 4: Seated toe raises 1x20 5: Standing calf raises 2x20 6: Standing at // bars hip abduction B 1x10 7: Standing at // bars hip extension 1x10 Skilled Intervention: Patient was educated in proper exercise technique and purpose for exercises. Skilled judgment was provided in selection of appropriate interventions. Correct performance of therapeutic exercises was facilitated with verbal and visual cuing. Neuromuscular Re-Education: 1: Balance board taps front to back and side to side x20 each 2: Balance board holds x30 sec each way 3: Airex semitandem stance 2x30 sec/way 4: Airex eyes closed feet together 2x30 sec 5: Tandem stance on level leading with right and left x 30 seconds each. Skilled Intervention: Skilled judgment used to assess appropriate program for balance and coordination activity. Insured patient safety with use of gait belt and contact guard assist. Billing Therapeutic Exercise Treatment Minutes: 23 Neuromuscular Re-Education Treatment Minutes: 20 Total Treatment Time Minutes (timed/untimed): 43 MELYSSA Brooke, PT documented in this encounterSelect [facility]06-30-2022 History of Present illness Narrative* Andrés Frankel, PT - 09/29/2021 2:25 PM EDT Episode Visit Count: 3 Therapist That Will Oversee The Plan Of Care: Andrés Frankel Start of Care Date: 09/13/21 Onset Date: 03/27/21 REHABILITATION AND SPORTS THERAPY PHYSICAL THERAPY TREATMENT NOTE ASSESSMENT: Андрей Nickerson tolerated the session with fatigue and no issues. He demonstrated improvements in balance training tolerance and 30 sec STS today. The patient will continue to benefit from ongoing skilled physical therapy to progress toward set goals. PLAN FOR NEXT VISIT: Continue exercise and balance progression per tolerance SUBJECTIVE: Patient Reason for Visit: Pt doing well today. A little sore from exercises at time, but feels they are appropriate Pain: Pain Pain Level: 0 Description: Sore Frequency: Intermittent OBJECTIVE MEASURES WITH LEVEL OF FUNCTION: Functional Performance Test Results 30 Second Chair Stand Test: 8 reps TREATMENT: Therapeutic Exercise: 2: Sit to stand from chair with no UE assist x 10 3: 30 second sit to stand x 8 4: Seated toe raises 5: Standing calf raises 2x20 Skilled Intervention: Patient was educated in proper exercise technique and purpose for exercises. Skilled judgment was provided in selection of appropriate interventions. Correct performance of therapeutic exercises was facilitated with verbal and visual cuing. Neuromuscular Re-Education: 1: Balance board taps front to back and side to side x20 each 2: Balance board holds x30 sec each way 3: Airex semitandem stance 2x30 sec/way 4: Airex EC feet together 2x30 sec Skilled Intervention: Skilled judgment used to assess appropriate program for balance and coordination activity. Insured patient safety with use of gait belt and CGA Billing Therapeutic Exercise Treatment Minutes: 23 Neuromuscular Re-Education Treatment Minutes: 20 Total Treatment Time Minutes (timed/untimed): 43 Andrés Frankel PT documented in this encounterSelect [facility]06-24-2022 History of Present illness Narrative* Andrés Frankel PT - 09/23/2021 1:59 PM EDT Episode Visit Count: 2 Therapist That Will Oversee The Plan Of Care: Andrés Frankel Start of Care Date: 09/13/21 Onset Date: 03/27/21 Patient Identified by Name and Date of : Yes REHABILITATION AND SPORTS THERAPY PHYSICAL THERAPY TREATMENT NOTE ASSESSMENT: Андрей Nickerson tolerated the session with no issues. He demonstrated difficulty with standing heel raises and good form with seated heel raises. Cueing needed for proper performance of side lying hip abduction.. The patient will continue to benefit from ongoing skilled physical therapy to progress toward set goals. PLAN FOR NEXT VISIT: Add uneven surface with balance SUBJECTIVE: Patient Reason for Visit: Patient reports decrease hip pain every day. He reports walking is going better. Pain: Pain Pain Level: 0 (3/10 at the most recently) Pain Location: Hip - Left;Hip - Right Frequency: Intermittent Post Treatment Pain Post Treatment Pain Level: No Change Post Treatment Symptoms: tight feeling in hips with no pain OBJECTIVE MEASURES WITH LEVEL OF FUNCTION: Functional Performance Test Results 30 Second Chair Stand Test: 7 reps TREATMENT: Therapeutic Exercise: 1: SciFit stepper seat 13 , resistance 2.5 x 5 minutes. 2: Sit to stand from chair with no UE assist x 10 3: 30 second sit to stand x 7 4: Standing with 1 UE assist heel raises 2x15 5: Seated B toes raises 2x15 (difficulty with doing this in standing) 6: Sidelying with right 1x10 and 1x7 and left hip abdcution 2x10 (more difficult with right leg) 7: SLR right and left 2x10 (quad set prior to lift for better control) Skilled Intervention: Patient was educated in proper exercise technique and purpose for exercises. Skilled judgment was provided in selection of appropriate interventions. Correct performance of therapeutic exercises was facilitated with verbal and visual cuing. Neuromuscular Re-Education: 1: NBOS on level 1x30 seconds 2: Semi-tandem stance on leve leading with right and left 1x30 seconds each 3: Tandem stance on level left and right 1x30 seconds each. 4: Balance board lateral weight shifting 1x[address] way Skilled Intervention: Insured patient safety with use of gait belt and CGA Billing Therapeutic Exercise Treatment Minutes: 30 Neuromuscular Re-Education Treatment Minutes: 15 Total Treatment Time Minutes (timed/untimed): 45 MELYSSA Brooke PT documented in this encounterSelect [facility]06-14-2022 History of Present illness Narrative* Andrés Frankel PT - 09/13/2021 5:08 PM EDT Episode Visit Count: 1 Therapist That Will Oversee The Plan Of Care: Andrés Frankel Start of Care Date: 09/13/21 Onset Date: 03/27/21 Patient Identified by Name and Date of : Yes REHABILITATION AND SPORTS THERAPY PHYSICAL THERAPY EVALUATION PLAN OF CARE: Assessment: Андрей Nickerson presents with chief complaint of BLE weakness that interfereswith walking in the community;stair negotiation;heavy exertion;lifting;physical activities;recreational activities;squatting;working . He presents with impairments in ADL's, balance, independence in exercise, overall function and strength. Prognosis for therapy is Good due to: current objective clinical presentation;positive past response to therapy;good support system/ coping skills . He will benefit from skilled therapy services to meet the goals established for this plan of care as noted below. Assessment Fall Risk : Active at risk Goals for Episode of Care: created on 09/13/21 through 12/14/21 [place] in home exercise program. Patient will decrease pain rating by 2 points to meet minimal clinical important difference for numeric pain rating scale. Patient will demonstrate increase in BLE strength to 4+ to 5/5 during manual muscle testing in order to improve function for leisure / recreation skills, moderate to heavy functional tasks and prior functional tasks. Perform walking, standing, and prolonged activity with decreased report of symptoms/pain in 6-8 weeks. Patient will Improve Timed Up and Go to 10 seconds to demonstrate decreased risk of falling. Patient will improve 30 second sit to stand to demonstrate improvement in functional lower extremity strength. Patient will increase balance to 10 seconds bilaterally in tandem stance to demonstrate decreased fall risk. Patient Goals: get back to walking in the [facility] Planned Interventions, Frequency, and Duration: Current Frequency: 2x/week Duration: 12 weeks Total Number of Visits Planned: 16 Planned Treatment Interventions: Therapeutic exercise (05019);Neuromuscular re- education (57183);Manual therapy (85540);Therapeutic activities (58157);Self- shelter management (29468);Patient/Family/Caregiver Education;Body Mechanics Training PLAN FOR NEXT VISIT: Continue exercise progression with SciFit, balance training, new BLE exercisesper tolerance Patient demonstrates good understanding of plan of care and treatment. The above goals and plan of care were discussed and agreed upon by patient/family. SUBJECTIVE: Андрей Nickerson is a 61 year old male seen today for BLE weakness and balanceissues since getting a kidney transplant around [place]. Notes he can do most daily functions, but unable to enjoy his recreational activities of picking mushrooms, walking for pleasure, and some higher level exertions due to the weakness in his legs. Some B hip pain too, points to greater trochanter area. Patient Goals: get back to walking in the [facility] Functional Limitations: walking in the community;stair negotiation;heavy exertion;lifting;physical activities;recreational activities;squatting;working Prior Level of Function: Independent with restrictions Independent with the following restrictions: limited activity prior to transplant, use of WW for ambulation Intake Information: Prescription present Falls History # of falls in past year: 0 Pain: Pain Pain Level: 5 Pain Location: Hip - Left;Hip - Right Description: Aching Frequency: Intermittent Post Treatment Pain Post Treatment Pain Level: No Change PROMIS Scales T-scores: mean of general population = 50. 5 points is clinically meaningfully difference Percentiles provide an indication of how the patient's score ranks in relation to the general population. Higher percentile rankings indicate better function/quality of life. 50th percentile is the average of the general population and indicates half of respondents had a worse score. T-scores: mean of general population = 50. 5 points is clinically meaningfully difference Percentiles provide an indication of how the patient's score ranks in relation to the general population. Higher percentile rankings indicate better function/quality of life. 50th percentile is the average of the general population and indicates half of respondents had a worse score. OBJECTIVE MEASURES WITH LEVEL OF FUNCTION: LE AROM R LE AROM: WFL L LE AROM: WFL LE Strength Trunk Strength: 3/5 grossly R LE Strength: 4/5 grossly L LE Strength: 4/5 grossly Functional Performance Test Results 30 Second Chair Stand Test: 7 reps Timed Up and Go (sec): 15.24 sec 4 Stage Balance Test Narrow base of support (sec): 10 sec Semi-tandem base of support (sec): 10 sec Tandem base of support (sec): 5 sec Single leg stance - right (sec): 1 sec Single leg stance - left (sec): 6 sec Education: Education Learning/educational needs: Home exercise program;Plan of Care;Changes in Plan of Care;Body Mechanics TREATMENT: PT Treatment Interventions: Therapeutic Exercise;Self-Retirement Management Evaluation Therapeutic Exercise: 1: *SLR 3x10 2: *SL hip abduction 3x10 3: *STS 3x10 4: *Calf raises 3x20 (educated to perform at a countertop for balance/safety) 5: *Toe raises 3x20 (educated to perform at a countertop for balance/safety) 6: Educated on walking program as part of HEP Skilled Intervention: Patient was educated in proper exercise technique and purpose for exercises. Skilled judgment was provided in selection of appropriate interventions. Provided written instruction for home exercise program to facilitate proper performance and compliance. Correct performance of therapeutic exercises was facilitated with verbal, visual and tactile cuing. Patient education as noted. Self-Retirement Management: 1: Educated on plan of care, progression to exercising independently, and directed his dietary questions to his surgical team Skilled Intervention: Skilled judgment in the selection of proper modification for activity of daily living/home management based on clinical presentation, deficits, and needs. Reviewed patient specific diagnosis in relation to activities of daily living/home management. Activity progression based on professional judgement. Billing * Evaluation Low Complexity: 1 Unit Therapeutic Exercise Treatment Minutes: 15 Self-Care/Home Management Treatment Minutes: 10 Total Treatment Time Minutes (timed/untimed): 53 Andrés Frankel PT documented in this encounterSelect Medical [facility]06-14-2022 Miscellaneous Notes* Telephone Encounter - Magdalena Cabezas LPN - 09/13/2021 10:44 AM EDT Liset from [facility] returned call and went over notes from Dr Henderson with understanding. * Telephone Encounter - Monique Espinal Cma - 09/13/2021 10:21 AM EDT Left message for patient to return call to office Monique Espinal Cma * Telephone Encounter - Handy Henderson DO - 09/13/2021 8:06 AM EDT Noted, agreeable with below Handy Henderson DO * Telephone Encounter - Sakina Webb RN - 09/12/2021 12:22 PM EDT Liset from [facility] calls to report that they had last re-certified patient for 4 week for fci. Liset states that next week 09/19/2021 will be patient's last visit for home fci. Patient will continue his weekly labs through outpatient. Liset requesting a call back if provider agreeable to this. Sakina Webb RN documented in this encounterSelect Medical [facility]06-01-2022 Miscellaneous Notes* Telephone Encounter - Portia Sierra LPN - 08/31/2021 9:29 AM EDT Awaiting fax. * Telephone Encounter - Janie Butt RN - 08/30/2021 12:22 PM EDT Howie with [facility] calls to check on status of HH Certification and Plan of Care. Robinasking for completed forms from May 2021 be faxed back to the number on cover sheet. Howie to refax forms to [phone] incase not received in office previously. Janie Butt, RN documented in this encounterSelect Medical [facility]05-19-2022 Miscellaneous Notes* Telephone Encounter - Candace Mahmood LPN - 08/18/2021 12:58 PM EDT Patient notified and verbalized understanding on instructions given.Candace Mahmood LPN * Telephone Encounter - Candace Mahmood LPN - 08/18/2021 12:58 PM EDT ----- Message from Ida Haddad PA-C sent at 08/18/2021 9:27 AM EDT ----- Please let patient know his CMP looked similar to previous labs. His calcium is up a little, would recommend follow up with pcp. I did forward this lab to her office. documented in this encounterSelect Medical [facility]05-18-2022 Instructions* Patient Instructions* Handy Henderson DO - 08/17/2021 2:59 PM EDT Pneumovax 23 vs. Prevnar 13 vs. Pneumonia 20 vaccine Ask transplant team Silver lakisha exercise program- ask insurance about coverage for a program documented in this encounterSelect Medical [facility]05-18-2022 History of Present illness Narrative* Handy Henderson DO - 08/17/2021 2:47 PM EDT CC: Андрей Nickerson is a 60 year old male who presents to the office for follow up HPI: Patient states that he has had some bowel changes, he has noticed that he has audible bowel sounds,diarrhea symptoms, non bloody, present the last 3 weeks. Has had specialist check C difficile of stool which was negative. Hasn't had any other testing. No new medication changes or vomiting, sick contacts. Has had a recent kidney transplant. Has been having weekly labs checked. Type 1 diabetes, managed by Contact Clerk. HTN, overall has been stable, denies any CP or dyspnea that is new. Admits that he has been struggling with weakness and still with gait balance concerns since his renal transplant. Knows needs to exercise more and get stronger to help the fatigue symptoms as well. No falls recently. B/l knee pain and hip pain and low back pain is present. Feels pain is worse sincehasn't been able to exercise but interested in getting stronger. PAST MEDICAL HISTORY Diagnosis Date Arrhythmia CKD (chronic kidney disease) stage 3, GFR 30-59 ml/min ([facility]) [facility] Coronary artery disease 2005 s/p PCI. 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 Leon [facility] Heart attack ([facility]) Hyperlipidemia Hypertension Lacunar stroke ([facility]) Macular edema [facility] MVP (mitral valve prolapse) Pancreatitis Proliferative diabetic retinopathy(362.02) [facility] Snoring Stroke ([facility]) 2017 Tobacco abuse PAST SURGICAL HISTORY Procedure Laterality Date AVASTIN (BEVACIZUMAB) 1.25MG INTRAVITREAL INJECTION OS (LEFT EYE) x5 (04/16/2015) Dr. Connelly CARDIAC CATH 2006, 2008, 2011 mid / distal LAD stents DENISHA COLONOSCOPY FLX DX W/COLLJ SPEC WHEN PFRMD 10/08/2018 Colonoscopy PAST SURGICAL HISTORY OF Bilateral Keratectomy PAST SURGICAL HISTORY OF N/A 03/19/2020 Laparoscopic peritoneal dialysis catheter placement with omentopexy- Shamir Tsai MD PAST SURGICAL HISTORY OF 03/2020 PD Catheter PAST SURGICAL HISTORY OF Left 02/18/2021 Canaloplasty / Trabeculotomy TRANSPLANTATION OF KIDNEY Right 03/27/2021 XCAPSL CTRC RMVL INSJ IO LENS PROSTH W/O ECP Left 03/10/2015 Cataract Extraction with PC IOL XCAPSL CTRC RMVL INSJ IO LENS PROSTH W/O ECP Right 04/01/2015 Cataract Extraction with PC IOL Current Outpatient Medications Medication Sig sirolimus (RAPAMUNE) 0.5 mg tablet Take 3 tablets by mouth once daily. sofosbuvir-velpatasvir 400-100 mg Take by mouth. carvedilol (COREG) 12.5 mg tablet Take 1 tablet by mouth q 12 HR. valGANciclovir (VALCYTE) 450 mg tablet Take by mouth. everolimus, immunosuppressive, (ZORTRESS) 1 mg tablet Take 1 mg by mouth twice daily. mycophenolate mofetil (CELLCEPT) 250 mg capsule Take by mouth twice daily. sulfamethoxazole-trimethoprim (BACTRIM DS) 800-160 mg per tablet Take by mouth twice daily. albuterol HFA (PROVENTIL HFA, VENTOLIN HFA) 90 mcg/actuation inhaler Inhale 2 Puffs as instructed every 6 hours as needed for wheezing/shortness of breath. dorzolamide-timolol (COSOPT) 22.3-6.8 mg/mL ophthalmic solution Use 1 Drop in both eyes twice daily. Use at 9 AM and 3 PM latanoprost (XALATAN) 0.005 % ophthalmic solution Use 1 Drop in both eyes daily at bedtime. Use at 10:00 PM propylene glycoL (SYSTANE COMPLETE) 0.6 % drop Use 1 Drop in both eyes four times daily. docusate sodium (COLACE) 100 mg capsule Take 100 mg by mouth twice daily. famotidine (PEPCID) 20 mg tablet Take 20 mg by mouth twice daily. mycophenolate mofetil (CELLCEPT) 250 mg capsule Take by mouth twice daily. 4 caps q 12 hours nystatin (MYCOSTATIN) 100,000 unit/mL susp Take 5 mL by mouth four times daily. Swish and swallow. oxyCODONE-acetaminophen (PERCOCET) 5-325 mg tablet Take by mouth every 8 hours as needed for pain. HQUOXBCORP-CMALVECW-DOJMETMBMD ORAL Take by mouth. 400-100 daily sulfamethoxazole-trimethoprim (BACTRIM DS,SEPTRA DS) 800-160 mg per tablet Take by mouth twice daily. valGANciclovir (VALCYTE) 450 mg tablet Take 450 mg by mouth. 1 tablet every 48 hours clopidogrel (PLAVIX) 75 mg tablet Take 1 tablet by mouth once daily. tamsulosin (FLOMAX) 0.4 mg TAKE 1 CAPSULE BY MOUTH EVERYDAY AT BEDTIME sirolimus (RAPAMUNE) 1 mg tablet tacrolimus IR (PROGRAF) 1 mg capsule Take 1 mg by mouth twice daily. fluticasone (FLONASE) 50 mcg/actuation nasal spray Use 2 Sprays in each nostril once daily. Rinse mouth after use. collagenase (SANTYL) ointment Apply to affected area once daily. On right leg wound Gum Scwejf-Ijxkhe-IDng-Alcohol (MASTISOL ADHESIVE) dpet 1 application as directed. furosemide (LASIX) 80 mg tablet Take 80 mg by mouth twice daily. gentamicin 0.1% 0.1 % cream Apply to affected area. sucroferric oxyhydroxide (VELPHORO ORAL) Take 1,500 mg PE by mouth w MEALS. calcitriol (ROCALTROL) 0.5 mcg capsule Take 0.5 mcg by mouth once daily. NEPHRO-SOMMER 0.8 mg tab Take 1 tablet by mouth once daily. carvedilol (COREG) 12.5 mg tablet Take 12.5 mg by mouth twice daily with meals. metoprolol tartrate, short acting, (LOPRESSOR) 100 mg tablet Take 1 tablet by mouth once daily. blood sugar diagnostic (ONETOUCH ULTRA TEST) test strip Checking blood sugars 3- 4 times daily Insulin [place], Disposable, (BD ULTRAFINE III MINI PEN) 31 gauge x 3/16 use as directed up to four times daily, E11.9 atorvastatin (LIPITOR) 40 mg tablet Take 0.5 tablets by mouth once daily. (Patient taking differently: Take 20 mg by mouth once daily. Taking 20 mg tablet once daily ) Blood-Glucose Sensor (DEXCOM G6 SENSOR) darleen Change Sensor every 14 days Patient reading blood sugar 12 times daily Blood-Glucose Meter,Continuous (DEXCOM G4 B OPERATOR-SHARE KIT) misc One [place] device, patient checks blood sugars 12 times daily Blood-Glucose Transmitter (DEXCOM G6 TRANSMITTER) darleen 1 Each as directed. Blood-Glucose Meter,Continuous (DEXCOM G6 B OPERATOR) misc 1 Each as directed. insulin detemir U-100 (LEVEMIR FLEXTOUCH U-100 INSULN) 100 unit/mL (3 mL) inpn injection INJECT 36 UNITS SUBCUTANEOUSLY DAILY AT BEDTIME. (Patient not taking: Reported on 02/19/2021 ) Lancets (MICROLET LANCET) lancets Test blood sugar(s) 3-4 times daily. Dx: 250.00 . Insulin: Yes Blood-Glucose Meter (ONETOUCH ULTRA2) monitoring kit 1 Each as needed. 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 No current facility-administered medications for this visit. ALLERGIES No Known Allergies Social History Tobacco Use Smoking status: Former Smoker Packs/day: 1.00 Years: 30.00 Pack years: 30.00 Types: Cigarettes Quit date: 05/2019 Years since quittin.2 Smokeless tobacco: Never Used Vaping Use Vaping Use: Never used Substance Use Topics Alcohol use: Not Currently Drug use: Not Currently Types: Marijuana Comment: occasional--last used cannibis 04/2019 ROS: See HPI PE: BP 124/60 Pulse 64 Temp (Src) 97 (Left Tympanic) Resp 16 Wt 256 lb (116.1kg) Gen: A&OX3, NAD, non-toxic appearing HEENT: PERRLA, EOMs intact b/l, nares without drainage, pharynx without erythema, exudate, lesions,or drainage. Uvula midline. Neck: No LAD, no thyromegaly, no meningismus. CV: RRR, no murmur Lungs: CTA b/l, no wheezing Skin: No rashes, lesions, or wounds on exposed skin. Trace non pitting edema b/l legs Abdomen, obese, mildly distended, not firm, no rebound or rigidity or pain, normal to slightly hyperactive bowel sounds Appears fatigued, gait is slowed Decreased muscle mass and strength diffusely ASSESSMENT/PLAN: 1. Diarrhea, unspecified type - ICD9: 787.91, ICD10: R19.7 (primary diagnosis) - need for further testing, Unsure cause of symptoms. - STOOL CULTURE/EIA - H PYLORI AG BY EIA,STOOL - FAT, FECAL QUAL 2. Hypercholesteremia - ICD9: 272.0, ICD10: E78.00 - recheck labs as ordered. - LIPID PANEL, NONFASTING 3. Status post kidney transplant - ICD9: V42.0, ICD10: Z94.0 - CONSULT TO PHYSICAL THERAPY 4. Hip pain - ICD9: 719.45, ICD10: M25.559 - CONSULT TO PHYSICAL THERAPY 5. Chronic pain of both knees - ICD9: 719.46, 338.29, ICD10: M25.561, M25.562, G89.29 - CONSULT TO PHYSICAL THERAPY 6. Balance disorder - ICD9: 781.99, ICD10: R26.89 - CONSULT TO PHYSICAL THERAPY 7. Essential hypertension - ICD9: 401.9, ICD10: I10 - good control - Continue current medication(s) - Encouraged dietary sodium restriction/DASH diet - Recommended regular aerobic exercise. - Recommend home blood pressure monitoring, to bring results in on next visit - Discussed need and benefit for weight loss. - Goal of BP <130/80 8. 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 Bilateral leg edema - ICD9: 782.3, ICD10: R60.0 - improving with recent renal transplant Handy Henderson DO Return if no improvement. Follow up with Handy Henderson DO. To ER if develops chest pain, shortness of breath Discussed risks, benefits, alternatives, and potential side effects of medications. Patient/Guardian expressed understanding and agreed with the plan. See patient instructions. Handy Henderson DO [address] [place] [address] documented in this encounter[facility] History of Present illness Narrative* Elisa Andre PA-C - 08/08/2021 4:01 PM EDT 08/08/2021 Patient presents with: Diarrhea: x 1 week SUBJECTIVE: This is a 60 year old that is here today for Complaint(s) of diarrhea x 1 week. Diarrhea is watery, no blood in stools. Patient recently had kidney transplant 03/27/22, and has been on antibiotics. Transplant physician is ordering stool cultures and cdiff, patient just received the message to give a sample and that his stool samples were ordered. Tells me he wouldn't have come in if they would have gotten back to him. Going 1-2 x a day. Urinating normal per patient, maybe slightly less than normal, but still urinating okay. Urinating every 3-4 hours currently. Denies dizziness, abdominal pain, back pain. No recent travel. Denies chest pain, SOB. Otherwise feel well and fine per patient just having diarrhea 1-3 x a day. Not eating fatty/greasy/dairy, numbness tingling, muscle cramps, body aches. BG readings within normal range per patient. Has continuous glucose monitor and insulin pump. Denies black or tarry stools. BP is good per patient at home 130-140/60-75. PAST MEDICAL HISTORY Diagnosis Date Arrhythmia CKD (chronic kidney disease) stage 3, GFR 30-59 ml/min ([facility]) [facility] Coronary artery disease 2005 s/p PCI. 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 Carolyn TOBAR [facility] Heart attack ([facility]) Hyperlipidemia Hypertension Lacunar stroke ([facility]) Macular edema [facility] MVP (mitral valve prolapse) Pancreatitis Proliferative diabetic retinopathy(362.02) [facility] Snoring Stroke ([facility]) 2017 Tobacco abuse ALLERGIES Patient has no known allergies. MEDICATIONS Current Outpatient Medications Medication Sig mycophenolate mofetil (CELLCEPT) 250 mg capsule Take by mouth twice daily. sulfamethoxazole-trimethoprim (BACTRIM DS) 800-160 mg per tablet Take by mouth twice daily. albuterol HFA (PROVENTIL HFA, VENTOLIN HFA) 90 mcg/actuation inhaler Inhale 2 Puffs as instructed every 6 hours as needed for wheezing/shortness of breath. dorzolamide-timolol (COSOPT) 22.3-6.8 mg/mL ophthalmic solution Use 1 Drop in both eyes twice daily. Use at 9 AM and 3 PM latanoprost (XALATAN) 0.005 % ophthalmic solution Use 1 Drop in both eyes daily at bedtime. Use at 10:00 PM propylene glycoL (SYSTANE COMPLETE) 0.6 % drop Use 1 Drop in both eyes four times daily. docusate sodium (COLACE) 100 mg capsule Take 100 mg by mouth twice daily. famotidine (PEPCID) 20 mg tablet Take 20 mg by mouth twice daily. mycophenolate mofetil (CELLCEPT) 250 mg capsule Take by mouth twice daily. 4 caps q 12 hours JZAJROKBZS-FHMLHLTO-CZZHMIPCMM ORAL Take by mouth. 400-100 daily sulfamethoxazole-trimethoprim (BACTRIM DS,SEPTRA DS) 800-160 mg per tablet Take by mouth twice daily. valGANciclovir (VALCYTE) 450 mg tablet Take 450 mg by mouth. 1 tablet every 48 hours clopidogrel (PLAVIX) 75 mg tablet Take 1 tablet by mouth once daily. furosemide (LASIX) 80 mg tablet Take 80 mg by mouth twice daily. tamsulosin (FLOMAX) 0.4 mg TAKE 1 CAPSULE BY MOUTH EVERYDAY AT BEDTIME metoprolol tartrate, short acting, (LOPRESSOR) 100 mg tablet Take 1 tablet by mouth once daily. blood sugar diagnostic (ONETOUCH ULTRA TEST) test strip Checking blood sugars 3- 4 times daily Insulin [place], Disposable, (BD ULTRAFINE III MINI PEN) 31 gauge x 3/16 use as directed up to four times daily, E11.9 atorvastatin (LIPITOR) 40 mg tablet Take 0.5 tablets by mouth once daily. (Patient taking differently: Take 20 mg by mouth once daily. Taking 20 mg tablet once daily ) Blood-Glucose Sensor (DEXCOM G6 SENSOR) darleen Change Sensor every 14 days Patient reading blood sugar 12 times daily Blood-Glucose Meter,Continuous (DEXCOM G4 B OPERATOR-SHARE KIT) misc One [place] device, patient checks blood sugars 12 times daily Blood-Glucose Transmitter (DEXCOM G6 TRANSMITTER) darleen 1 Each as directed. Blood-Glucose Meter,Continuous (DEXCOM G6 B OPERATOR) misc 1 Each as directed. Lancets (MICROLET LANCET) lancets Test blood sugar(s) 3-4 times daily. Dx: 250.00 . Insulin: Yes Blood-Glucose Meter (ONETOUCH ULTRA2) monitoring kit 1 Each as needed. 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 everolimus, immunosuppressive, (ZORTRESS) 1 mg tablet Take 1 mg by mouth twice daily. (Patient not taking: Reported on 08/04/2021 ) nystatin (MYCOSTATIN) 100,000 unit/mL susp Take 5 mL by mouth four times daily. Swish and swallow. (Patient not taking: Reported on 08/04/2021 ) oxyCODONE-acetaminophen (PERCOCET) 5-325 mg tablet Take by mouth every 8 hours as needed for pain. (Patient not taking: Reported on 08/04/2021) tacrolimus IR (PROGRAF) 1 mg capsule Take 1 mg by mouth twice daily. fluticasone (FLONASE) 50 mcg/actuation nasal spray Use 2 Sprays in each nostril once daily. Rinse mouth after use. collagenase (SANTYL) ointment Apply to affected area once daily. On right leg wound Gum Bhrolw-Wwescg-GUta-Alcohol (MASTISOL ADHESIVE) dpet 1 application as directed. gentamicin 0.1% 0.1 % cream Apply to affected area. sucroferric oxyhydroxide (VELPHORO ORAL) Take 1,500 mg PE by mouth w MEALS. calcitriol (ROCALTROL) 0.5 mcg capsule Take 0.5 mcg by mouth once daily. NEPHRO-SOMMER 0.8 mg tab Take 1 tablet by mouth once daily. carvedilol (COREG) 12.5 mg tablet Take 12.5 mg by mouth twice daily with meals. insulin detemir U-100 (LEVEMIR FLEXTOUCH U-100 INSULN) 100 unit/mL (3 mL) inpn injection INJECT 36 UNITS SUBCUTANEOUSLY DAILY AT BEDTIME. (Patient not taking: Reported on 02/19/2021 ) No current facility-administered medications for this visit. SOCIAL HISTORY Social History Tobacco Use Smoking status: Former Smoker Packs/day: 1.00 Years: 30.00 Pack years: 30.00 Types: Cigarettes Quit date: 05/2019 Years since quittin.2 Smokeless tobacco: Never Used Vaping Use Vaping Use: Never used Substance Use Topics Alcohol use: Not Currently Drug use: Not Currently Types: Marijuana Comment: occasional--last used cannibis 04/2019 REVIEW OF SYSTEMS See HPI OBJECTIVE: BP 138/62 Pulse 85 Temp 36.5 C (97.7 F) Resp 21 Wt 116.1 kg (256 lb) SpO2 99% BMI 36.73kg/m APPEARANCE Well appearing, alert, in no acute distress, well-hydrated, well nourished. HEART RRR with normal S1 and S2 ABDOMEN soft, non-tender, non-distended. Lower abdomen 2 well healed incisions with elliot in place. Patient having removed tomorrow by home nurse. No erythema, warmth, drainage. No rebound, rigidity or guarding. Negative Daniel's and McBurney's. ASSESSMENT/PLAN: 1. Diarrhea, unspecified type - ICD9: 787.91, ICD10: R19.7 Patient following with [facility] transplant-Cdiff ordered and labs, reviewed on patient my chart account on phone. CMP ordered if unable to have labs drawn by home nurse tomorrow. Fluids, rest. Submitted stool sample tomorrow to home nurse. Reviewed red flags and when to seek care sooner in ER if needed - COMP METABOLIC PANEL The patient indicates understanding of these issues and agrees with the plan. Elisa Andre PA-C documented in this encounterSelect [facility] History of Present illness Narrative* Jignesh Oliver MD - 08/04/2021 2:39 PM EDT Jignesh Oliver MD Department of Orthopaedics Orthopaedics [address] [facility] [address] Dept: [phone] Dept August 04, 2021 Consultation requested by Maya Yadav CNP for an opinion regarding hip pain. My final recommendations will be communicated back to the requesting physician by way of shared Medical record or letter to requesting physician via US mail. CHIEF COMPLAINT: New of the Right Hip and Referred by Maya Salas HPI Patient states he is having lateral left hip pain that started 2 years ago and gotten worse since April. He has pain the longer he is on his feet. Has been getting PT at home. Patient had a kidney transplant on 03/27/21. 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 He currently on disability. Taking Tylenol for the pain. X-rays done on 04/19/21. Uses a cane to ambulate. AMB ROOMING INTAKE FLOWSHEET DATA Risk Screening Do you have concerns about personal safety or safety in the home?: No Pain Pain Level: (0-5) Pain Location: Hip-Right Description: Sharp, Other: See comment (Zinging) Duration Amount of Time: 2 Duration Units: Years Frequency: Intermittent Intervention/Comfort measure: Medication ASSESSMENT: R53.81 Physical deconditioning (primary encounter diagnosis) M25.551 Right hip pain PLAN: He certainly has been through quite a bit in his last year. His discomfort does not appear to be coming from the hip joints specifically. I have suspicion is from his deconditioning as he does state the more that he works through it a bit more comfortable he is. It is also possible little bit of lumbar or just simply some hip bursitis. We discussed asking his transplant team if topical Voltaren is an option for him. I think if he discontinues his conditioning program and physical therapy exercises, a lot of this will improve with time. FOLLOW UP INSTRUCTIONS: As needed Mr. Андрей Nickerson was advised as to contrast therapies and/or to take analgesics/anti-inflammatories as needed and all contraindications were reviewed. OBJECTIVE: Mr. Андрей Nickerson is a pleasant 60 year old in no apparent distress. Gen:There were no vitals taken for this visit. nl development, obese, no deformities ENT: Normocephalic, normal hearing, moist mucosa CV: Pulses:DP/PT= 2+ and symmetric, capillary refill < 2 secs, no peripheral edema/varicosities Skin: no rash, bruising or lesions. Good turgor. Psych: cooperative and appropriate, alert and oriented x 3, good mood and affect. Musculoskeletal: Patient has tenderness to palpation over bilateral greater trochanters and short external rotators.Some mild discomfort with hip abduction. With flexion and internal rotation of the hips, he has some very minor symptoms on the right which he states is not characteristic of his chief complaint discomfort. Some mild atrophy in bilateral quadriceps. However, 4 out of 5 strength with hip flexion, knee flexion and extension, ankle dorsiflexion, plantarflexion, EHL. Neurovascular exam intact. IMAGING: IMPRESSION: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 There is joint space narrowing, greater on the right. There is degenerative cyst formation in the superior acetabulum. There is no fracture or destructive lesion. There are extensive vascular calcifications. Bilateral sacroiliac joints are intact. Multiple catheters are projecting over the pelvis. There are surgical clips in the right hemipelvis. Clinical Training Specialist: PSCB Transcribe Date/Time: Apr 19 2021 3:57P Dictated by : AFTAB ROBERTSON MD This examination was interpreted and the report reviewed and electronically signed by: AFTAB ROBERTSON MD on Apr 19 2021 3:58PM EST Results-Findings * * *Final Report* * * DATE OF EXAM: Apr 19 2021 3:54PM WOX [id number] - XR HIP 3V PELV+ AP/LAT RT / PROCEDURE REASON: Right hip pain * * * * Physician Interpretation * * * * EXAM:XR HIP 3V PELV+ AP/LAT RT HISTORY: Right hip pain COMPARISON:None Supporting Subjective Information Below: Past Medical History: PAST MEDICAL HISTORY Diagnosis Date Arrhythmia CKD (chronic kidney disease) stage 3, GFR 30-59 ml/min ([facility]) [facility] Coronary artery disease 2006 s/p PCI. 3 stents total Diabetes type 1, uncontrolled 1971 nephropathy, retinopathy, dx age 10, Dr. Leon [facility] Heart attack ([facility]) Hyperlipidemia Hypertension Lacunar stroke ([facility]) Macular edema [facility] MVP (mitral valve prolapse) Pancreatitis Proliferative diabetic retinopathy(362.02) [facility] Snoring Stroke ([facility]) 2017 Tobacco abuse Past Surgical History: PAST SURGICAL HISTORY Procedure Laterality Date AVASTIN (BEVACIZUMAB) 1.25MG INTRAVITREAL INJECTION OS (LEFT EYE) x5 (04/16/2015) Dr. Connelly CARDIAC CATH 2005, 2008, 2011 mid / distal LAD stents DENISHA COLONOSCOPY FLX DX W/COLLJ SPEC WHEN PFRMD 10/08/2018 Colonoscopy PAST SURGICAL HISTORY OF Bilateral Keratectomy PAST SURGICAL HISTORY OF N/A 03/19/2020 Laparoscopic peritoneal dialysis catheter placement with omentopexy- Shamir Tsai MD PAST SURGICAL HISTORY OF 03/2020 PD Catheter PAST SURGICAL HISTORY OF Left 02/18/2021 Canaloplasty / Trabeculotomy TRANSPLANTATION OF KIDNEY Right 03/27/2021 XCAPSL CTRC RMVL INSJ IO LENS PROSTH W/O ECP Left 03/10/2015 Cataract Extraction with PC IOL XCAPSL CTRC RMVL INSJ IO LENS PROSTH W/O ECP Right 04/01/2015 Cataract Extraction with PC IOL Family History: FAMILY HISTORY Problem Relation Age of Onset Diabetes Mother Thyroid Mother Hyperlipidemia Mother Hypertension Mother No Known Problems Father No Ocular Disease Other Social History: Social History Tobacco Use Smoking status: Former Smoker Packs/day: 1.00 Years: 30.00 Pack years: 30.00 Types: Cigarettes Quit date: 05/2019 Years since quittin.2 Smokeless tobacco: Never Used Vaping Use Vaping Use: Never used Substance Use Topics Alcohol use: Not Currently Drug use: Not Currently Types: Marijuana Comment: occasional--last used cannibis 04/2019 Medications: Current Outpatient Medications Medication Sig mycophenolate mofetil (CELLCEPT) 250 mg capsule Take by mouth twice daily. sulfamethoxazole-trimethoprim (BACTRIM DS) 800-160 mg per tablet Take by mouth twice daily. albuterol HFA (PROVENTIL HFA, VENTOLIN HFA) 90 mcg/actuation inhaler Inhale 2 Puffs as instructed every 6 hours as needed for wheezing/shortness of breath. dorzolamide-timolol (COSOPT) 22.3-6.8 mg/mL ophthalmic solution Use 1 Drop in both eyes twice daily. Use at 9 AM and 3 PM latanoprost (XALATAN) 0.005 % ophthalmic solution Use 1 Drop in both eyes daily at bedtime. Use at 10:00 PM propylene glycoL (SYSTANE COMPLETE) 0.6 % drop Use 1 Drop in both eyes four times daily. docusate sodium (COLACE) 100 mg capsule Take 100 mg by mouth twice daily. famotidine (PEPCID) 20 mg tablet Take 20 mg by mouth twice daily. [id number]-[id number]-OFPUCPIKSF ORAL Take by mouth. 400-100 daily valGANciclovir (VALCYTE) 450 mg tablet Take 450 mg by mouth. 1 tablet every 48 hours clopidogrel (PLAVIX) 75 mg tablet Take 1 tablet by mouth once daily. furosemide (LASIX) 80 mg tablet Take 80 mg by mouth twice daily. tamsulosin (FLOMAX) 0.4 mg TAKE 1 CAPSULE BY MOUTH EVERYDAY AT BEDTIME metoprolol tartrate, short acting, (LOPRESSOR) 100 mg tablet Take 1 tablet by mouth once daily. blood sugar diagnostic (QuadriservTOUCH ULTRA TEST) test strip Checking blood sugars 3- 4 times daily Insulin [place], Disposable, (BD ULTRAFINE III MINI PEN) 31 gauge x 3/16 use as directed up to four times daily, E11.9 atorvastatin (LIPITOR) 40 mg tablet Take 0.5 tablets by mouth once daily. (Patient taking differently: Take 20 mg by mouth once daily. Taking 20 mg tablet once daily ) Blood-Glucose Sensor (DEXCOM G6 SENSOR) darleen Change Sensor every 14 days Patient reading blood sugar 12 times daily Blood-Glucose Meter,Continuous (DEXCOM G4 B OPERATOR-SHARE KIT) misc One [place] device, patient checks blood sugars 12 times daily Blood-Glucose Transmitter (DEXCOM G6 TRANSMITTER) darleen 1 Each as directed. Blood-Glucose Meter,Continuous (DEXCOM G6 B OPERATOR) misc 1 Each as directed. Lancets (MICROLET LANCET) lancets Test blood sugar(s) 3-4 times daily. Dx: 250.00 . Insulin: Yes Blood-Glucose Meter (ONETOUCH ULTRA2) monitoring kit 1 Each as needed. 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 everolimus, immunosuppressive, (ZORTRESS) 1 mg tablet Take 1 mg by mouth twice daily. (Patient not taking: Reported on 08/04/2021 ) mycophenolate mofetil (CELLCEPT) 250 mg capsule Take by mouth twice daily. 4 caps q 12 hours nystatin (MYCOSTATIN) 100,000 unit/mL susp Take 5 mL by mouth four times daily. Swish and swallow. (Patient not taking: Reported on 08/04/2021 ) oxyCODONE-acetaminophen (PERCOCET) 5-325 mg tablet Take by mouth every 8 hours as needed for pain. (Patient not taking: Reported on 08/04/2021) sulfamethoxazole-trimethoprim (BACTRIM DS,SEPTRA DS) 800-160 mg per tablet Take by mouth twice daily. tacrolimus IR (PROGRAF) 1 mg capsule Take 1 mg by mouth twice daily. fluticasone (FLONASE) 50 mcg/actuation nasal spray Use 2 Sprays in each nostril once daily. Rinse mouth after use. collagenase (SANTYL) ointment Apply to affected area once daily. On right leg wound Gum Lrtweo-Poqudj-UTmt-Alcohol (MASTISOL ADHESIVE) dpet 1 application as directed. gentamicin 0.1% 0.1 % cream Apply to affected area. sucroferric oxyhydroxide (VELPHORO ORAL) Take 1,500 mg PE by mouth w MEALS. calcitriol (ROCALTROL) 0.5 mcg capsule Take 0.5 mcg by mouth once daily. NEPHRO-SOMMER 0.8 mg tab Take 1 tablet by mouth once daily. carvedilol (COREG) 12.5 mg tablet Take 12.5 mg by mouth twice daily with meals. insulin detemir U-100 (LEVEMIR FLEXTOUCH U-100 INSULN) 100 unit/mL (3 mL) inpn injection INJECT 36 UNITS SUBCUTANEOUSLY DAILY AT BEDTIME. (Patient not taking: Reported on 02/19/2021 ) No current facility-administered medications for this visit. Allergies: Patient has no known allergies. ROS: General (negative for fatigue, malaise, weight loss/gain) HEENT (negative for headache, earache, recent vision changes, sinus pain, sore throat) Respiratory (no recent shortness of breath, hemoptysis) CV (negative for chest tightness, palpitations) Musculoskeletal (see HPI) Psych (no depression, anxiety) REFERRING PHYSICIAN: Mr. Андрей Nickerson was referred to ar for consultation by the following physician. This consultation note will be sent to the following physician by either mail or electronic medical record. Maya Salas [address] [facility] [address] Handy Henderson DO [address] [facility] [id number] Jignesh Oliver MD documented in this encounterSelect Medical [facility]04-27-2022 Miscellaneous Notes* Telephone Encounter - Portia Sierra LPN - 07/27/2021 4:43 PM EDT Left detailed message on Kanwal's identified machine. * Telephone Encounter - Portia Sierra LPN - 07/14/2021 3:13 PM EDT Line busy will need to try back. * Telephone Encounter - Edna Ford LPN - 07/04/2021 2:49 PM EDT Left a message for pt to call the office and ask to speak to a triage nurse. Edna Ford LPN * Telephone Encounter - Maya Salas APRN.ENGINE SETTER - 07/04/2021 11:00 AM EDT Noted, thank you. Yes, please send copy of lab work. Maya Salas APRN.CNP * Telephone Encounter - Moni Gaines RN - 07/01/2021 3:46 PM EDT Kanwal from [facility] calling to report start of Nursing care for patient. They plan to seehim 1x/week for weekly labs and incision care. Kanwal states patient only needs PT at this time, and not OT. Kanwal also reports patient has weekly labs ordered by patient's surgeon. Kanwal asks if Dr. Henderson would like a copy of those lab results sent to her when completed? Please call Kanwal at [phone]. documented in this encounterSelect Medical Trihealth Rehabilitation Hospital04-11-2022 Instructions* Patient Instructions* Maya Salas APRN.CNP - 07/11/2021 2:52 PM EDT Schedule with orthopedics Follow-up in 2 months for routine visit. documented in this encounterSelect Medical Trihealth Rehabilitation Hospital04-11-2022 History of Present illness Narrative* Maya Salas APRN.CNP - 07/11/2021 2:00 PM EDT Chief Complaint Patient presents with: Hospital F/U: [facility] , then went to rehab , then reaction from antirejection medication another trip to stay [facility] meds switched around then to [facility] HPI Андрей Nickerson is a 60 year old male who presents here today for Above Complaints. Андрей is an established patient of Dr. Henderson. Андрей is new to me today.. Concerns today.. Hospital follow-up: Kidney transplant March 26, 2021. Went to [facility] for rehab following transplant. Was living at [facility] for awhile following this d/t single level home and easier to get around. After continuous worsening gerneralized weakness, ended up back at [facility] due to body rejecting Kidney trasnplant. Was initially on Prograft -- patient reports this being the medication that gave him all the trouble so this changed his regimen and now he feels much better. Had peritoneal dialysis catheter removed on 06/17/20. Was back in rehab for 1 week. Now returns home to [place] about 1-1.5 weeks ago. Having home health coming to house. Getting PT, weekly lab work, and incision care. No need for OT. Working on getting legs stronger. 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 Patient aware and agrees he is notready for this. Discussed immunosuppressant state and the importance of cautiousness of preventing i nfection. Incision site well approximated, healing well, with no signs of infection. Has appointment to have elliot removed next week at [facility]. Current Immunosuppressive Regimen: Everolimus/ Zortress 1 MG tablet -- 3 tablets by mouth every 12 hours. mycophenolate mofetil (CELLCEPT) 250 MG capsule --2 capsules by mouth every 12 hours. DM: Contunous BG monitor and contunous insulin pump. BG running between 100-130 per pt. New insulin pump since the beginning of the year. Last Hg A1c 6.6 -- from 7 days ago. Hip pain: Chronic. X numerous years. Not any worse, but no any better. No NSAID use d/t kidney transplant. From office visit in April with Dr. Henderson per note: ASSESSMENT/PLAN: 1. Right hip pain - ICD9: 719.45, ICD10: M25.551 (primary diagnosis) - xray as ordered, suspect OA changes, may need PHYSICAL THERAPY and orthopedics referral, need forweight loss as well. - XR HIP GENERAL 3V PELV/AP/LAT RIGHT X-ray 04/19/21: IMPRESSION: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 There is joint space narrowing, greater on the right. There is degenerative cyst formation in the superior acetabulum. There is no fracture or destructive lesion. There are extensive vascular calcifications. Bilateral sacroiliac joints are intact. Multiple catheters are projecting over the pelvis. There are surgical clips in the right hemipelvis. Past medical history, appointments, medications, allergies reviewed. Previous Medical History PAST MEDICAL HISTORY Diagnosis Date Arrhythmia CKD (chronic kidney disease) stage 3, GFR 30-59 ml/min ([facility]) [facility] Coronary artery disease 2005 s/p PCI. 3 stents total Diabetes type 1, uncontrolled 1971 nephropathy, retinopathy, dx age 10, Dr. Leon [facility] Heart attack ([facility]) Hyperlipidemia Hypertension Lacunar stroke ([facility]) Macular edema [facility] MVP (mitral valve prolapse) Pancreatitis Proliferative diabetic retinopathy(362.02) [facility] Snoring Stroke ([facility]) 2017 Tobacco abuse Previous Surgical History PAST SURGICAL HISTORY Procedure Laterality Date AVASTIN (BEVACIZUMAB) 1.25MG INTRAVITREAL INJECTION OS (LEFT EYE) x5 (04/16/2015) Dr. Connelly CARDIAC CATH 2005, 2008, 2011 mid / distal LAD stents DENISHA COLONOSCOPY FLX DX W/COLLJ SPEC WHEN PFRMD 10/08/2018 Colonoscopy PAST SURGICAL HISTORY OF Bilateral Keratectomy PAST SURGICAL HISTORY OF N/A 03/19/2020 Laparoscopic peritoneal dialysis catheter placement with omentopexy- Shamir Tsai MD PAST SURGICAL HISTORY OF 03/2020 PD Catheter PAST SURGICAL HISTORY OF Left 02/18/2021 Canaloplasty / Trabeculotomy TRANSPLANTATION OF KIDNEY Right 03/27/2021 XCAPSL CTRC RMVL INSJ IO LENS PROSTH W/O ECP Left 03/10/2015 Cataract Extraction with PC IOL XCAPSL CTRC RMVL INSJ IO LENS PROSTH W/O ECP Right 04/01/2015 Cataract Extraction with PC IOL Family History FAMILY HISTORY Problem Relation Age of Onset Diabetes Mother Thyroid Mother Hyperlipidemia Mother Hypertension Mother No Known Problems Father No Ocular Disease Other Patient Allergies ALLERGIES No Known Allergies Current Medications Current Outpatient Medications on File Prior to Visit Medication Sig albuterol HFA (PROVENTIL HFA, VENTOLIN HFA) 90 mcg/actuation inhaler Inhale 2 Puffs as instructed every 6 hours as needed for wheezing/shortness of breath. dorzolamide-timolol (COSOPT) 22.3-6.8 mg/mL ophthalmic solution Use 1 Drop in both eyes twice daily. Use at 9 AM and 3 PM latanoprost (XALATAN) 0.005 % ophthalmic solution Use 1 Drop in both eyes daily at bedtime. Use at 10:00 PM propylene glycoL (SYSTANE COMPLETE) 0.6 % drop Use 1 Drop in both eyes four times daily. docusate sodium (COLACE) 100 mg capsule Take 100 mg by mouth twice daily. famotidine (PEPCID) 20 mg tablet Take 20 mg by mouth twice daily. mycophenolate mofetil (CELLCEPT) 250 mg capsule Take by mouth twice daily. 4 caps q 12 hours nystatin (MYCOSTATIN) 100,000 unit/mL susp Take 5 mL by mouth four times daily. Swish and swallow. oxyCODONE-acetaminophen (PERCOCET) 5-325 mg tablet Take by mouth every 8 hours as needed for pain. HNYYUYOJYS-FMMBCKLF-JKQZSPQFUD ORAL Take by mouth. 400-100 daily sulfamethoxazole-trimethoprim (BACTRIM DS,SEPTRA DS) 800-160 mg per tablet Take by mouth twice daily. tacrolimus IR (PROGRAF) 1 mg capsule Take 1 mg by mouth twice daily. valGANciclovir (VALCYTE) 450 mg tablet Take 450 mg by mouth. 1 tablet every 48 hours clopidogrel (PLAVIX) 75 mg tablet Take 1 tablet by mouth once daily. fluticasone (FLONASE) 50 mcg/actuation nasal spray Use 2 Sprays in each nostril once daily. Rinse mouth after use. collagenase (SANTYL) ointment Apply to affected area once daily. On right leg wound Gum Tebybh-Nxrlsp-EEsj-Alcohol (MASTISOL ADHESIVE) dpet 1 application as directed. furosemide (LASIX) 80 mg tablet Take 80 mg by mouth twice daily. gentamicin 0.1% 0.1 % cream Apply to affected area. sucroferric oxyhydroxide (VELPHORO ORAL) Take 1,500 mg PE by mouth w MEALS. calcitriol (ROCALTROL) 0.5 mcg capsule Take 0.5 mcg by mouth once daily. NEPHRO-SOMMER 0.8 mg tab Take 1 tablet by mouth once daily. tamsulosin (FLOMAX) 0.4 mg TAKE 1 CAPSULE BY MOUTH EVERYDAY AT BEDTIME carvedilol (COREG) 12.5 mg tablet Take 12.5 mg by mouth twice daily with meals. (Patient not taking: Reported on 02/19/2021 ) metoprolol tartrate, short acting, (LOPRESSOR) 100 mg tablet Take 1 tablet by mouth once daily. (Patient not taking: Reported on 02/19/2021 ) blood sugar diagnostic (ONETOUCH ULTRA TEST) test strip Checking blood sugars 3- 4 times daily Insulin [place], Disposable, (BD ULTRAFINE III MINI PEN) 31 gauge x 3/16 use as directed up to four times daily, E11.9 atorvastatin (LIPITOR) 40 mg tablet Take 0.5 tablets by mouth once daily. (Patient taking differently: Take 20 mg by mouth once daily. Taking 20 mg tablet once daily ) Blood-Glucose Sensor (DEXCOM G6 SENSOR) darleen Change Sensor every 14 days Patient reading blood sugar 12 times daily Blood-Glucose Meter,Continuous (DEXCOM G4 B OPERATOR-SHARE KIT) misc One [place] device, patient checks blood sugars 12 times daily Blood-Glucose Transmitter (DEXCOM G6 TRANSMITTER) darleen 1 Each as directed. Blood-Glucose Meter,Continuous (DEXCOM G6 B OPERATOR) misc 1 Each as directed. insulin detemir U-100 (LEVEMIR FLEXTOUCH U-100 INSULN) 100 unit/mL (3 mL) inpn injection INJECT 36 UNITS SUBCUTANEOUSLY DAILY AT BEDTIME. (Patient not taking: Reported on 02/19/2021 ) Lancets (MICROLET LANCET) lancets Test blood sugar(s) 3-4 times daily. Dx: 250.00 . Insulin: Yes Blood-Glucose Meter (ONETOUCH ULTRA2) monitoring kit 1 Each as needed. 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 No current facility-administered medications on file prior to visit. Social History Social History Tobacco Use Smoking status: Former Smoker Packs/day: 1.00 Years: 30.00 Pack years: 30.00 Types: Cigarettes Quit date: 05/2019 Years since quittin.1 Smokeless tobacco: Never Used Vaping Use Vaping Use: Never used Substance Use Topics Alcohol use: Not Currently Drug use: Not Currently Types: Marijuana Comment: occasional--last used cannibis 04/2019 REVIEW OF SYSTEMS: as above Reviewed relevant PMHx, PSHx, Social Hx, current medications and allergies. Review of Symptoms See HPI. All other systems are negative. EXAM: BP 130/62 (BP Site: Right Arm, BP Position: Sitting, BP Cuff Size: Large Adult) Pulse 72 Resp 18 Wt 113.6 kg (250 lb 6.4 oz) BMI 35.93 kg/m General Appearance: Well appearing, alert, in no acute distress, well-hydrated, well nourished.. Skin: Skin color, texture, turgor normal, no suspicious rashes or lesions. Neck: Supple, no adenopathy; thyroid symmetric, normal size, no bruits. Back:no pain to palpation of vertebrae, good flexion and extension, good range of motion, no muscletenderness, reflexes are 2+ and symmetric, motor and sensory appear to be normal, negative SLR test, no evidence of scoliosis Lungs: Lungs clear to auscultation. No wheezing, rhonchi, rales.. Heart: RRR without murmur, gallop, or rubs. No ectopy. Abdomen: Normal abdominal exam, Abdomen soft, non-tender. Incision site: well approximated, no signs of infection, no drainage, incision healing. Bowel sounds normal. No masses, organomegaly. Musculoskeletal: No joint swelling, deformity, or tenderness. Peripheral Pulses: Normal. Neurologic: Gait normal. Reflexes normal and symmetric. Sensation grossly intact. Health Maintenance List HEPATITIS A(1 of 2 - Risk 2-dose series) Never done DTAP,TDAP,TD(1 - Tdap) Never done SHINGRIX VACCINE(1 of 2) Never done TWO PNEUMOVAX 5 YEARS APART PRIOR TO AGE 65(2) due on 11/12/2014 BP CONTROLLED (<130/80) due on 11/28/2019 LDL CHOLESTEROL due on 02/07/2020 COVID-19 VACCINE(4 - Booster for Moderna series) due on 05/10/2021 LUNG CANCER SCREENING due on 06/22/2021 HBA1C due on 09/25/2021 DIABETIC FOOT EXAM due on 10/09/2021 DEPRESSION SCREENING due on 11/23/2021 INFLUENZA(Season Ended) due on 12/01/2021 DILATED RETINAL EXAM due on 01/10/2022 SERUM CREATININE due on 01/26/2022 HEMOGLOBIN/HEMATOCRIT due on 01/26/2022 ANNUAL PCP TEAM CHRONIC DISEASE VISIT due on 04/19/2022 COLORECTAL CANCER SCREENING due on 10/09/2023 PROSTATE CANCER SCREENING DISCUSSION due on 06/30/2025 HEPATITIS B Completed ADULT PREVNAR-13 Completed HEPATITIS C SCREENING Completed HIV SCREENING Completed MENINGOCOCCAL CONJUGATE Aged Out ASSESSMENT/PLAN: 1. Status post kidney transplant - ICD9: V42.0, ICD10: Z94.0 (primary diagnosis) -Continue with current immunosuppressant medication regimen. -Continue to follow-up with [facility] team for transplant / nephrology. - Keep abdominal incision ( from s/p removal of peritoneal dialysis catheter) clean and dry. Follow-up as scheduled with surgical team appointment to have elliot removed. -Continue with home health and PT. - Continue to regain strength. Will discuss returning to work options once home health/PT approves and patient is comfortably back to baseline strength -- pt agreeable. 2. Hospital discharge follow-up - ICD9: V67.59, ICD10: Z09 See above. 3. Right hip pain - ICD9: 719.45, ICD10: M25.551 Chronic. Stable -- not improving. - CONSULT TO ORTHOPAEDICS 4. 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 Stable. Continue with current regimen. 5. Essential hypertension - ICD9: 401.9, ICD10: I10 - good control - Continue current medication(s) - Encouraged dietary sodium restriction/DASH diet - Recommended regular aerobic exercise. - Recommend home blood pressure monitoring, to bring results in on next visit - Reviewed risks of HTN and principles of treatment - Goal of BP <130/80 - Recommended no refined sugar, low refined starch, healthy oil intake (olive oil), healthy protein(fish) along the lines of the Mediterranean diet. 6. Hypercholesteremia - ICD9: 272.0, ICD10: E78.00 From blood work 7 days ago from [facility] -- well controlled and stable. Results are in chart. - Continue with current regimen. Follow-up, RTO, in 2 months for routine follow-up of chronic conditions. Prescription instructions reviewed with patient as applicable. Potential red flag symptoms discussed with the patient. Reviewed appropriate action plan to take if red flag symptoms occur. Patient agreeable to treatment plan. Maya Salas, NORAH.ENGINE SETTER [address] [place] [address] documented in this encounterSelect Medical [facility]health [facility] Hospital04-06-2022 Instructions* Patient Instructions* Gonzalo Drew RN - 07/06/2021 3:45 PM EDT - Labs in clinic - Increase Mycophenolate to 1,000 mg twice a day - Return to clinic 10/13/2021 with Migel Gómez MD as scheduled documented in this encounterWooster [facility]04-06-2022 History of Present illness Narrative* Андрей Reyes RN - 07/06/2021 3:15 PM EDT Images from the original note were not included. PREP SHEET FOR NEPHROLOGY CLINIC Patient Name: Андрей Nickerson On Site Coordinator: Андрей Reyes Date of Kidney Transplant: 03/27/2021 101 days Staple removal, Hep C labs Primary Disease: Diabetes Mellitus - Type I Transplant Cafe Lead: Migel Ramirez Primary Care physician: Handy Henderson Last Transplant Appointment: MONITORING COMMENTS DGF Yes HLA Match: A1 B1 DR0 Living Donor? No [place] Recipient? No [place] ID Follow-up Testing 04/24/2021 to 05/22/2021 Date labs Complete: 05/02/2021 EBV IgG Donor / Recipient R+ CMV IgG Donor / Recipient: D+ / R- On Valcyte or frequent labs? Valcyte 450 mg po every other day Ureteral Stent? yes Removed / Removal Sched? 04/20/2021 Hepatitis C+/ADAMARIS+ donor? yes [place] Status In Protocol Box yes Has recipient converted to Hep C+? Yes If yes - obtain HCV genotype for PA process for Hep C tx Genotype 1a PA for HCV submitted? Yes Submitted on 04/13/2021 Approved 04/20/2021 for [facility] Authorization number: [id number] Patient started treatment? 04/26/2021 If contacted by pharmacy: Hep C PCR- one month after start of treatment 05/27/2021 Hep C PCR at completion of HCV therapy collected on: 06/24/2021 Hep C PCR 3 months post completion collected on: 09/24/2021 Hep C PCR 6 months post completion collected on: 12/25/2021 IMMUNOSUPPRESSION AND LABS: Current Immunosuppressive Medication(s) Immunosuppressive Agents Everolimus 1 MG tablet Take 3 tablets by mouth every 12 hours. mycophenolate mofetil (CELLCEPT) 250 MG capsule Take 2 capsules by mouth every 12 hours. Diagnosis Code: ICD 9:V42.0, ICD 10:Z94.0 - Kidney transplant. Date of Transplant: 03/27/2021. I/S levels: Lab Results Component Value Date TACROLIMUS 9.4 06/17/2021 TACROLIMUS 9.5 06/16/2021 TACROLIMUS 14.6 (H) 06/14/2021 TACROTRGHMAN 13.6 06/09/2021 TACROTRGHMAN 27.0 06/06/2021 TACROTRGHMAN 13.8 06/02/2021 TACRORAND 13.2 (H) 06/15/2021 CHEMISTRY: Lab Results Component Value Date CREATSERUM 2.17 06/22/2021 CREATSERUM 2.51 (H) 06/21/2021 CREATSERUM 2.65 (H) 06/20/2021 HEMATOLOGY: Lab Results Component Value Date WBC 6.3 06/22/2021 WBC 7.16 06/21/2021 WBC 7.45 06/20/2021 Lab Results Component Value Date HGB 11.1 06/22/2021 HGB 10.7 (L) 06/21/2021 HGB 11.5 (L) 06/20/2021 IMMUNOLOGY: Lab Results Component Value Date CMVPCR <50 06/15/2021 EBVBYPCR <1,000 06/15/2021 BKVIRALP 746 (H) 05/11/2021 CURRENT MEDICATIONS: CUSTOM MEDICATION, Dexcom G6 Sensor, Dexcom G6 Transmitter, Everolimus, GLUCOSE MONITOR LANCETS PRESCRIPTION, Glucagon Emergency, ONE TOUCH ULTRASOFT LANCETS, Propylene Glycol, Tamsulosin HCl, acetaminophen, albuterol, atorvastatin, carveDILOL, clopidogrel, docusate, furOSEmide, glucagon, glucose blood test strips, insulin aspart, mycophenolate mofetil, prednisoLONE acetate, senna, sofosbuvir-velpatasvir, sulfamethoxazole-trimethoprim, and valGANciclovir [place] [address] Change in lab frequency / new order today: No Labs needed in clinic today? Yes enter orders & screen shot COORDINATOR NOTES: * Gonzalo Drew RN - 07/06/2021 3:15 PM EDT Images from the original note were not included. Nursing Assessment In Clinic (see Clinic Prep Sheet for additional information) Patient is accompanied to clinic today by: self Did patient require a wheelchair or medical transport for appointment: no Any changes in address or contact information: no Insurance on file correct: yes Currently employed: no VITALS BP Readings from Last 3 Encounters: 07/06/21 132/76 06/21/21 136/69 05/11/21 156/78 Pulse Readings from Last 3 Encounters: 07/06/21 74 06/21/21 73 05/11/21 93 Wt Readings from Last 6 Encounters: 07/06/21 113.1 kg (249 lb 6.4 oz) 06/20/21 109.5 kg (241 lb 4.8 oz) 05/11/21 116.4 kg (256 lb 11.2 oz) 04/20/21 117.9 kg (260 lb) 04/13/21 128.9 kg (284 lb 1.6 oz) 08/11/20 121.6 kg (268 lb) Body mass index is 35.79 kg/m . Lab Results Component Value Date GLUCOSE 146 07/04/2021 Lab Results Component Value Date HGBA1C 6.6 07/04/2021 IMMUNOSUPPRESSION Current Immunosuppressive Medication(s) Immunosuppressive Agents Everolimus 1 MG tablet Take 3 tablets by mouth every 12 hours. mycophenolate mofetil (CELLCEPT) 250 MG capsule Take 2 capsules by mouth every 12 hours. Diagnosis Code: ICD 9:V42.0, ICD 10:Z94.0 - Kidney transplant. Date of Transplant: 03/27/2021. ADDITIONAL INFORMATION: [place] [address] [facility] - [place] [id number] - [address] [address] [facility] [address] [facility]/pharmacy #[id number] [place] [address] [address] [phone] [facility] [facility] [address] [facility] [address], [address] [place] [phone] [facility] [address], [place] [address] [facility] [address] [facility] [address], [address] [place] [address] ROS and SCREEN: Chest Pain: negative Cough: negative SOB: negative Abd Pain: negative Nausea: negative Vomiting: negative Diarrhea: negative Constipation: negative Dysuria: negative Edema: negative Tremors: negative Headaches: negative Wound issues: negative Alcohol consumption: no Cigarette smoking, smokeless tobacco or vaping/e-cigarette use: no Marijuana (any form), CBD oil or street drug use: no QUESTIONS OR CONCERNS TO ADDRESS WITH PHYSICIAN: * Melissa Alaniz [facility] - 07/06/2021 3:15 PM EDT Department of Pharmacy Outpatient Transplant Note Patient: Андрей Nickerson Patient is a 60 y.o. year old male with a history of LEFT KIDNEY transplant on 03/27/2021 (Kidney) for Diabetes Mellitus - Type I. Complete List of Medications reported by the patient at today's visit: Current Outpatient Medications Medication Sig acetaminophen 325 MG tablet Take 2 tablets by mouth every 6 hours as needed for Mild Pain or Pain (breakthrough). albuterol 108 (90 Base) MCG/ACT Aero Soln inhaler Inhale 1-2 puffs every 6 hours as needed for Shortness of Breath. atorvastatin 40 MG tablet take 1 Tab by mouth daily. carveDILOL 12.5 MG tablet Take 1 tablet by mouth every 12 hours. clopidogrel 75 MG tablet take 1 Tab by mouth daily. docusate 100 MG capsule Take 1 capsule by mouth 2 times daily as needed for Constipation. Hold for loose stool Everolimus 1 MG tablet Take 3 tablets by mouth every 12 hours. insulin aspart (NOVOLOG) 100 UNIT/ML SC SOLN Per pump - uses approximately 50-70 per day. mycophenolate mofetil (CELLCEPT) 250 MG capsule Take 2 capsules by mouth every 12 hours. Diagnosis Code: ICD 9:V42.0, ICD 10:Z94.0 - Kidney transplant. Date of Transplant: 03/27/2021. prednisoLONE acetate 1 % Suspension ophthalmic suspension Place 1 drop in both eyes 2 times daily. Propylene Glycol (Systane Balance) 0.6 % Solution Place 1 drop in both eyes daily. senna 8.6 MG tablet Take 1 tablet by mouth daily as needed for Constipation. sofosbuvir-velpatasvir 400-100 MG tablet Take 1 tablet by mouth daily. sulfamethoxazole-trimethoprim 800-160 MG per tablet Take 1 tablet by mouth every other day. Tamsulosin HCl 0.4 MG capsule Take 0.4 mg by mouth daily. valGANciclovir 450 MG tablet Take 1 tablet by mouth every 48 hours. CUSTOM MEDICATION Please obtain AM everolimus level prior to morning dose and fax to Dr. Leon Skinner at [phone] CUSTOM MEDICATION Please obtain weekly BMP and CBC for two weeks and fax results to Dr. Leon Skinner at [phone]. Dexcom G6 Sensor Misc Change Sensor every 14 days Patient reading blood sugar 12 times daily Dexcom G6 Transmitter Misc CHANGE EVERY 90 DAYS Glucagon, rDNA, (Glucagon Emergency) 1 MG Kit Inject 1 Dose as directed as needed (Low glucose levels.). Glucagon, rDNA, 1 MG IJ KIT by Subcutaneous route. Use as directed (Patient taking differently: Inject 1 mg under the skin as needed for Low blood sugar. ) glucose blood test strips (ONE TOUCH TEST STRIPS) STRP PT TESTING 6XS DAILY GLUCOSE MONITOR LANCETS PRESCRIPTION DM1 on Pump ONE TOUCH ULTRASOFT LANCETS XX MISC 6 times daily Medication focused review of systems (including common side effects of immunosuppression) Patient confirms no symptoms or adverse effects. Feels much better since hospital admission. Immunosuppression focused assessment of laboratory values: The pharmacist's assessment of transplant organ function: stable within usual baseline. Estimated Creatinine Clearance: 40 mL/min (by C-G formula based on SCr of 2.53 mg/dL). Lab Results Component Value Date CREATSERUM 2.53 07/04/2021 CREATSERUM 2.17 06/22/2021 CREATSERUM 2.51 (H) 06/21/2021 Maintenance Immunosuppression Current Immunosuppressive Medication(s) IS Agent Sig Comments everolimus 3 mg q12hr at 9:30 AM/PM Goal level: 6-8 ng/mL per inpatient nephrology consult note Last dose change: Increased from 2 mg twice daily on 06/20/21 Switched off of tacrolimus during 05/2021 admission for DEION/mental status changes mycophenolate 500 mg q12hr Decreased 05/11/21 for low level BK Has patient missed any doses of medication in the last 4 weeks? No Has patient taken meds more than 2 hours before or after the prescribed dosing time in the last 4 weeks? No Recent immunosuppression drug levels Lab Results Component Value Date/Time Everolimus, Trough 4.8 06/21/2021 0606 Everolimus, Trough 3.5 06/20/2021 0604 Everolimus, Trough 2.4 06/19/2021 0610 Based on the pharmacist's assessment, the most recent immunosuppression levels are not reflective of most recent dose change. When did you take your last dose of tacrolimus: This morning. Recommend: wait for next everolimus level; increase mycophenolate back to 1000 mg twice daily sinceswitched to mTOR Infection Prophylaxis, Monitoring, & Treatment Current Anti-Infective Medication(s) Anti-Infective Agent Sig Planned Stop Date & Comments TMP-SMZ (Bactrim) 800mg-160mg (DS) every other day Valganciclovir CMV Risk: +/- 450 mg Q48h Stop 09/25/21 Lab Results Component Value Date CMVPCR <50 06/15/2021 BK Virus Management SERUM BK VIRUS DNA QUANTATIVE, MANUAL ENTER (no units) Date Value 06/02/2021 not detected 05/30/2021 negative Bk Viral Load, Plasma (copies/mL) Date Value 05/11/2021 746 (H) Recommend: continue to monitor Blood Glucose Type 1 diabetes pre-transplant Lab Results Component Value Date GLUCOSE 146 07/04/2021 GLUCOSE 96 06/22/2021 GLUCOSE 175 (H) 06/21/2021 Lab Results Component Value Date HGBA1C 6.6 07/04/2021 HGBA1C 5.9 (H) 06/13/2021 BG is variable based on routine labs. BG at home is less than 200 based on patient report. 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 Recommend: continue to monitor Medication Changes made during clinic visit in consultation with provider: Increase mycophenolate to 1000 mg twice daily Name: Melissa Alaniz RPH Phone: [phone] Date/Time: 07/06/2021 3:56 PM * Sharon Acuna MD - 07/06/2021 3:15 PM EDT Images from the original note were not included. Post-Tx Evaluation Kidney 07/06/2021 Андрей Nickerson [id number] Chief Complaint: Chief Complaint Patient presents with Kidney Recipient Follow-up HPI: I saw Андрей Nickerson in our post transplant office for a 3 month post kidney transplant visit. He is doing well. Memory issues . Good graft function . PD catheter removed 2 weeks ago . No other complains . 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 Past Surgical History: Procedure Laterality Date REMOVAL CATHETER INTRAPERITONEAL TUNNELED N/A 06/17/2021 Laterality: N/A; Surgeon: Unruly Diaz MD, PhD; Location: [facility] MAIN OR KIDNEY TRANSPLANT W/O RUBY NEPHRECTOMY N/A 03/27/2021 Laterality: N/A; Surgeon: Sharon Acuna MD; Location: [facility] OR CORONARY ANGIOPLASTY N/A 04/21/2011 Laterality: N/A; Surgeon: Ricardo Herman MD; Location: [facility] CATH CORONARY DRUG ELUTING STENT PLACEMENT N/A 04/21/2011 Laterality: N/A; Surgeon: Ricardo Herman MD; Location: [facility] CORONARY STENT PLACEMENT 2005 x3 REMOVAL CATARACT (PEM) Social History Social History Socioeconomic History Marital status: Spouse name: Not on file Number of children: Not on file Years of education: Not on file Highest education level: Not on file Occupational History Not on file Tobacco Use Smoking status: Current Some Day Smoker Packs/day: 0.25 Years: 30.00 Pack years: 7.50 Types: Cigarettes Smokeless tobacco: Never Used Substance and Sexual Activity Alcohol use: Yes Comment: rare Drug use: No Sexual activity: Yes Partners: Female Other Topics Concern Not on file Social History Narrative Not on file Social Determinants of Health Financial Resource Strain: Not on file Food Insecurity: Not on file Transportation Needs: Not on file Physical Activity: Not on file Stress: Not on file Social Connections: Not on file Intimate Partner Violence: Not on file Housing Stability: Not on file Family History Problem Relation Age of Onset Heart Disease - Other Mother Hypertension Mother Hypertension Father Colorectal Cancer Neg Hx Medications: Current Outpatient Medications Medication Sig Dispense Refill acetaminophen 325 MG tablet Take 2 tablets by mouth every 6 hours as needed for Mild Pain or Pain (breakthrough). albuterol 108 (90 Base) MCG/ACT Aero Soln inhaler Inhale 1-2 puffs every 6 hours as needed for Shortness of Breath. atorvastatin 40 MG tablet take 1 Tab by mouth daily. carveDILOL 12.5 MG tablet Take 1 tablet by mouth every 12 hours. clopidogrel 75 MG tablet take 1 Tab by mouth daily. docusate 100 MG capsule Take 1 capsule by mouth 2 times daily as needed for Constipation. Hold for loose stool Everolimus 1 MG tablet Take 3 tablets by mouth every 12 hours. 180 tablet 0 insulin aspart (NOVOLOG) 100 UNIT/ML SC SOLN Per pump - uses approximately 50-70 per day. 7 Vial 3 mycophenolate mofetil (CELLCEPT) 250 MG capsule Take 2 capsules by mouth every 12 hours. Diagnosis Code: ICD 9:V42.0, ICD 10:Z94.0 - Kidney transplant. Date of Transplant: 03/27/2021. 120 capsule 11 prednisoLONE acetate 1 % Suspension ophthalmic suspension Place 1 drop in both eyes 2 times daily. Propylene Glycol (Systane Balance) 0.6 % Solution Place 1 drop in both eyes daily. senna 8.6 MG tablet Take 1 tablet by mouth daily as needed for Constipation. sofosbuvir-velpatasvir 400-100 MG tablet Take 1 tablet by mouth daily. 28 tablet 2 sulfamethoxazole-trimethoprim 800-160 MG per tablet Take 1 tablet by mouth every other day. 15 tablet 11 Tamsulosin HCl 0.4 MG capsule Take 0.4 mg by mouth daily. valGANciclovir 450 MG tablet Take 1 tablet by mouth every 48 hours. 15 tablet 2 CUSTOM MEDICATION Please obtain AM everolimus level prior to morning dose and fax to Dr. Leon Skinner at [phone] 1 Each 0 CUSTOM MEDICATION Please obtain weekly BMP and CBC for two weeks and fax results to Dr. Leon Skinner at [phone]. 1 Each 0 Dexcom G6 Sensor Misc Change Sensor every 14 days Patient reading blood sugar 12 times daily Dexcom G6 Transmitter Misc CHANGE EVERY 90 DAYS Glucagon, rDNA, (Glucagon Emergency) 1 MG Kit Inject 1 Dose as directed as needed (Low glucose levels.). Glucagon, rDNA, 1 MG IJ KIT by Subcutaneous route. Use as directed (Patient taking differently: Inject 1 mg under the skin as needed for Low blood sugar. ) 1 Kit 5 glucose blood test strips (ONE TOUCH TEST STRIPS) STRP PT TESTING 6XS DAILY 600 Strip 1 GLUCOSE MONITOR LANCETS PRESCRIPTION DM1 on Pump 2 Container 11 ONE TOUCH ULTRASOFT LANCETS XX MISC 6 times daily 600 Each 3 No current facility-administered medications for this visit. Allergies: Patient has no known allergies. Review of Systems: PREP SHEET FOR NEPHROLOGY CLINIC Patient Name: Андрей Nickerson On Site Coordinator: Андрей Reyes Date of Kidney Transplant: 03/27/2021 101 days Staple removal, Hep C labs Primary Disease: Diabetes Mellitus - Type I Transplant Cafe Lead: Migel Ramirez Primary Care physician: Handy Henderson Last Transplant Appointment: MONITORING COMMENTS DGF Yes HLA Match: A1 B1 DR0 Living Donor? No [place] Recipient? No [place] ID Follow-up Testing 04/24/2021 to 05/22/2021 Date labs Complete: 05/02/2021 EBV IgG Donor / Recipient R+ CMV IgG Donor / Recipient: D+ / R- On Valcyte or frequent labs? Valcyte 450 mg po every other day Ureteral Stent? yes Removed / Removal Sched? 04/20/2021 Hepatitis C+/ADAMARIS+ donor? yes [place] Status In Protocol Box yes Has recipient converted to Hep C+? Yes If yes - obtain HCV genotype for PA process for Hep C tx Genotype 1a PA for HCV submitted? Yes Submitted on 04/13/2021 Approved 04/20/2021 for Epclusa Authorization number: [id number] Patient started treatment? 04/26/2021 If contacted by pharmacy: Hep C PCR- one month after start of treatment 05/27/2021 Hep C PCR at completion of HCV therapy collected on: 06/24/2021 Hep C PCR 3 months post completion collected on: 09/24/2021 Hep C PCR 6 months post completion collected on: 12/25/2021 IMMUNOSUPPRESSION AND LABS: Current Immunosuppressive Medication(s) Immunosuppressive Agents Everolimus 1 MG tablet Take 3 tablets by mouth every 12 hours. mycophenolate mofetil (CELLCEPT) 250 MG capsule Take 2 capsules by mouth every 12 hours. Diagnosis Code: ICD 9:V42.0, ICD 10:Z94.0 - Kidney transplant. Date of Transplant: 03/27/2021. I/S levels: Lab Results Component Value Date TACROLIMUS 9.4 06/17/2021 TACROLIMUS 9.5 06/16/2021 TACROLIMUS 14.6 (H) 06/14/2021 TACROTRGHMAN 13.6 06/09/2021 TACROTRGHMAN 27.0 06/06/2021 TACROTRGHMAN 13.8 06/02/2021 TACRORAND 13.2 (H) 06/15/2021 CHEMISTRY: Lab Results Component Value Date CREATSERUM 2.17 06/22/2021 CREATSERUM 2.51 (H) 06/21/2021 CREATSERUM 2.65 (H) 06/20/2021 HEMATOLOGY: Lab Results Component Value Date WBC 6.3 06/22/2021 WBC 7.16 06/21/2021 WBC 7.45 06/20/2021 Lab Results Component Value Date HGB 11.1 06/22/2021 HGB 10.7 (L) 06/21/2021 HGB 11.5 (L) 06/20/2021 IMMUNOLOGY: Lab Results Component Value Date CMVPCR <50 06/15/2021 EBVBYPCR <1,000 06/15/2021 BKVIRALP 746 (H) 05/11/2021 CURRENT MEDICATIONS: CUSTOM MEDICATION, Dexcom G6 Sensor, Dexcom G6 Transmitter, Everolimus, GLUCOSE MONITOR LANCETS PRESCRIPTION, Glucagon Emergency, ONE TOUCH ULTRASOFT LANCETS, Propylene Glycol, Tamsulosin HCl, acetaminophen, albuterol, atorvastatin, carveDILOL, clopidogrel, docusate, furOSEmide, glucagon, glucose blood test strips, insulin aspart, mycophenolate mofetil, prednisoLONE acetate, senna, sofosbuvir-velpatasvir, sulfamethoxazole-trimethoprim, and valGANciclovir [place] [address] Change in lab frequency / new order today: No Labs needed in clinic today? Yes enter orders & screen shot COORDINATOR NOTES: Nursing Assessment In Clinic (see Clinic Prep Sheet for additional information) Patient is accompanied to clinic today by: self Did patient require a wheelchair or medical transport for appointment: no Any changes in address or contact information: no Insurance on file correct: yes Currently employed: no VITALS BP Readings from Last 3 Encounters: 07/06/21 132/76 06/21/21 136/69 05/11/21 156/78 Pulse Readings from Last 3 Encounters: 07/06/21 74 06/21/21 73 05/11/21 93 Wt Readings from Last 6 Encounters: 07/06/21 113.1 kg (249 lb 6.4 oz) 06/20/21 109.5 kg (241 lb 4.8 oz) 05/11/21 116.4 kg (256 lb 11.2 oz) 04/20/21 117.9 kg (260 lb) 01/12/22 128.9 kg (284 lb 1.6 oz) 08/11/20 121.6 kg (268 lb) Body mass index is 35.79 kg/m . Lab Results Component Value Date GLUCOSE 146 07/04/2021 Lab Results Component Value Date HGBA1C 6.6 07/04/2021 IMMUNOSUPPRESSION Current Immunosuppressive Medication(s) Immunosuppressive Agents Everolimus 1 MG tablet Take 3 tablets by mouth every 12 hours. mycophenolate mofetil (CELLCEPT) 250 MG capsule Take 2 capsules by mouth every 12 hours. Diagnosis Code: ICD 9:V42.0, ICD 10:Z94.0 - Kidney transplant. Date of Transplant: 03/27/2021. ADDITIONAL INFORMATION: [place] [address] [facility] - [place] [id number] - [address] [place] [address] [facility]/pharmacy #[id number] [place] [address] [address] [phone] [facility] [facility] [address] [facility] [address], [address] [place] [address] [facility] [address], [address] [place] [address] [facility] [address], [address] [place] [address] ROS and SCREEN: Chest Pain: negative Cough: negative SOB: negative Abd Pain: negative Nausea: negative Vomiting: negative Diarrhea: negative Constipation: negative Dysuria: negative Edema: negative Tremors: negative Headaches: negative Wound issues: negative Alcohol consumption: no Cigarette smoking, smokeless tobacco or vaping/e-cigarette use: no Marijuana (any form), CBD oil or street drug use: no QUESTIONS OR CONCERNS TO ADDRESS WITH PHYSICIAN: Physical Exam Vital Signs: BP 132/76 (BP Location: Right arm, BP Position: Sitting) Pulse 74 Temp 97.9 F (36.6 C) (Oral) Wt 113.1 kg (249 lb 6.4 oz) BMI 35.79 kg/m Smoking Status Current Some Day Smoker Body mass index is 35.79 kg/m . General: Well-developed, well-nourished. No acute distress HEENT: Atraumatic, normocephalic, extra ocular muscles intact. No scleral icterus. Oropharynx is clear without mucosal lesions (ulcers), No scalp or ear lesions. Neck: without masses Heart: regular rate and rhythm Lungs: Clear Abdomen: Soft, non-tender, non-distended, positive bowel sounds. No pain Extremities: Upper and Lower extremities non-tender, no peripheral edema Skin: no lesions Lymph: no adenopathy Neuro: Alert and oriented to person, place and time; Motor and sensory grossly intact, Ambulation normal Laboratory Data: WBC, MANUAL ENTER Date Value Ref Range Status 07/04/2021 3.4 Final Hemoglobin (HGB), MANUAL ENTER Date Value Ref Range Status 07/04/2021 11.4 Final HEMATOCRIT (HCT), MANUAL ENTER Date Value Ref Range Status 07/04/2021 34.8 Final PLATELETS, MANUAL ENTER Date Value Ref Range Status 07/04/2021 140 Final Blood Urea Nitrogen (BUN), MANUAL ENTER Date Value Ref Range Status 07/04/2021 33 Final CREATININE, SERUM, MANUAL ENTER Date Value Ref Range Status 07/04/2021 2.53 Final GLUCOSE, MANUAL ENTER Date Value Ref Range Status 07/04/2021 146 Final Assessment Андрей Nickerson is a 60 y.o. male who presents to the [facility] posttransplant clinic for postoperative and immunosuppression evaluation. his transplant kidney organ function is good. Immunosuppression medications are appropriate. Андрей is currently taking the following immunosuppression medication(s): Current Immunosuppressive Medication(s) Immunosuppressive Agents Everolimus 1 MG tablet Take 3 tablets by mouth every 12 hours. mycophenolate mofetil (CELLCEPT) 250 MG capsule Take 2 capsules by mouth every 12 hours. Diagnosis Code: ICD 9:V42.0, ICD 10:Z94.0 - Kidney transplant. Date of Transplant: 03/27/2021. Plan: - Increase MMF - everolimus level - remove skin staplers after 2 weeks . I have reviewed his extensive medical, surgical, and had a detailed discussion with the patient. All his questions were answered. documented in this encounterOS[facility]-25-[facility] Miscellaneous Notes* Telephone Encounter - Christine Killian LPN - 06/24/2021 4:19 PM EDT Detailed message left on VM. Christine Killian LPN * Telephone Encounter - Maya Salas APRN.MARIA M - 06/24/2021 4:04 PM EDT Agreeable. 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 Magdalena asking if provider willing to follow patient with orders forSkilled Nursing, Physical Therapy, and Occupational Therapy. If agreeable please give Magdalena a call back . Thank you, Sakina Webb RN documented in this encounterSelect [facility] History of Present illness Narrative* MARISOL Bustillo - 06/21/2021 2:27 PM EDT Final Discharge Planning and Transportation Final Discharge Planning Discharge Disposition: Inpatient Rehab Facility Services at Discharge: Physical Therapy, Occupational Therapy, [facility] Selected Continued Care - Discharged on 06/21/2021 Admission date: 06/11/2021 - Discharge disposition: [facility] Facility Destination Coordination complete. Service Provider Selected Services Address Phone Fax Patient [facility] [address] [facility] [address] [phone] -- Community Agency Name(s) For Handoff: [facility] Phone For Handoff: [phone] Fax For Handoff: [phone] Plan Plan: Pt to discharge to inpatient rehabiltiation after his hospital stay. Patient/Family In Agreement With Plan: yes Accounts Payable Specialist Called: Yes Name of Transport Company: Other (Comment) (W/C van with [employer] ([phone])) ETA of Ambulance: 06/21 @ [phone] Transfer Mode: wheelchair Mode of Transfer: other (W/C Service/Police etc) Accompanied By: alone Transfer/Transport Equipment: copy of patient Records Per physician, pt able to discharge today. Pt has his home Epclusa and has 30 day supply of Zortress to provide to IPR per facility request. SW forwarded updated lab letter to IPR. No new COVID test needed per facility. Updated medical team regarding transport/discharge plan. RN please call report & fax AVS/ESTEFANY & discharge summar, if available to IPR. W/C van form at A desk. Pre-cert obtained per IPR. Pt/pt's spouse updated on discharge plan. 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 Service Provider Selected Services Address Phone Fax Patient Preferred [facility] Inpatient [address] [address] [phone] -- Plan Patient to discharge to inpatient rehabilitation after his hospital stay. Transportation WC Van with [employer] To arrive Wednesday 06/21 at [phone] Patient will go alone and will have a copy of medical records with him. Pharmacy For all fills, the patient must use the insurance provider's preferred pharmacy, [facility] ( , ). Patient stated on Zortress while inpatient. Patient is also on Epclusa. Both medications are a significant cost to the I[facility]. Per transplant [facility], medications will need to be ordered from [facility]. Physician will send new order for Zortress to check cost. There are currently no programs for assistance for Zortress, but there is a one time coupon. We will need to verify the kasper prior to getting the free one time trial of Zortress. Patient does have a 17 day home supplyof Epclusa that he can take to the facility with him. At discharge, patient was able to receive Zortress via one time coupon. Patient discharge with mediations needed and will use them at the facility. We continue to wait for reply from [facility] to see if a PA is needed and what the cost will be to the patient. Post distance education coordinator Josse was notified about the change in medication. Josse provided a new lab order. This was given to patient at discharge, SW uploaded it to [facility] and Josse faxed to [facility]'s lab. 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 Hospital Plan: Patient to restart his insulin pump with home settings CSII with Novolog Basal 0:00-6 am 1.4 units/hr CR 1:5 6 am to 8 pm 1.5 units/hr and CR 1:4 8 pm to 0:00 1.4 units/hr and CR 1:5. Target glucose 110 2. Discharge Plan: Please call on day of d/c for definitive recs. Please see [employer],under IM Consult Serv Endocrine/Diabetes - Team 2 Diab Consults for provider on day of discharge. Tentative discharge plan: as above. (Please use the Diabetes Discharge Order Set to order medications and supplies) Primary team to please provide the following prescriptions: Novolog VIAL 3. Follow up needed: [facility], , for HFU in 2-4 weeks with INVESTMENT COUNSELOR 4. Education: Discussed daily plan Thank you for allowing us to participate in your patient's care. If you have questions please checkon [employer], under IM Consult Serv, Endocrine/Diabetes, and call the person listed for Team 2 as directed CC: Hyperglycemia History of Present Illness: Андрей Nickerson is a 60 y.o. year old male who is seen at bedside. Pt has some hypoglycemia after bolused for a meal and also noted tight glucose in the earlier morning he will be discharged to a rehab facility today. Afraid of lows. Current Regimen: CSII with Novolog- T -slim Basal 1.5 units/hr CR 1:4 Target glucose 110 Duration 5 hrs Daily Glucose Review: Date Daily glucose review TDD Basal Prandial/ Correction 06/13/2021 180, 294, 355, 236 58 40 18 06/14/21 166, 289, 245, 251 66 40 26 06/15/21 147, 257, 225, 150 76 40 36 06/16/21 140, 186, 252, 118 66 20 56 06/17/21 171, 198, 214, 241, 439, 425, 80 40 20 06/18/21 284, 299, 272, 266, 213 111 40 71 06/19/21 166, 168, 227, 275, 223, 156 121 40 81 06/20/21 69, 91, 230 Review of Systems Diabetes: Negative for symptoms of hypoglycemia Physical Exam Constitutional: fair appearing male in no acute distress. Pulmonary/Chest: Respirations even and unlabored. Musculoskeletal: No acute abnormalities noted Neurological: Alert and interactive Psych: Cooperative Background History Андрей Nickerson is a 60 y.o. male with history CAD, HTN, hx of DM-1, hx of TIA, of renal tx 03/2021, DCed to SNF in Apr 2021 , found he has COVID-19 +ve in May s/p antibody infusion at that time, recently DCed home from SNF to home (with his parents). Admitted with increased confusion and weakness. He reports he was only home overnight before coming back to the hospital. H/o insulin pump buthas not been on in for several months as he has been at a SNF. Diabetes History: Type of Diabetes: Type 1 Diabetes Mellitus (T1D) Date of diagnosis: Age 10 Outpatient physician: Dr. Seth Low, endocrine Diabetes Complications: retinopathy and nephropathy s/p renal transplant Date of most recent dilated eye exam: 04/2021 DKA occurrences: 0 Home blood glucoses: He is checking his blood sugars using Dexcom CGM, however has not been wearingsince admission to [facility]. ? Fastin-100 ? Hypoglycemia: Denies Home diabetes medications: Previously on T-slim/dexcom pump ? Basal: 1.5 units/hour ? Prandial: 1 unit per 4 grams ? Correction: 1 unit per 25 mg/dl above 150 mg/dl Cholesterol Medication: atorvastatin Home diet/meal plan: Eating less carbs for weight loss A1c this admission: Lab Results Component Value Date HGBA1C 5.9 (H) 06/13/2021 HGBA1C 8.5 (H) 11/13/2011 HGBA1C 8.2 (H) 06/04/2007 Blood pressure 136/69, pulse 73, temperature 98 F (36.7 C), temperature source Oral, resp. rate 16,height 1.778 m (5' 10), weight 109.5 kg (241 lb 4.8 oz), SpO2 98 %. Most recent entered Weight: 109.5 kg (241 lb 4.8 oz) Body mass index is 34.62 kg/m . Na/K+/Phos/Mg/Ca: 135/4.5/--/1.8/9.9 (06/21 605) Bun/Creat/Cl/CO2/Glucose: 45/2.51/110/19/175 (06/21 0606-06/21 1112) Lab Results Component Value Date CHOLESTEROL 90 06/02/2021 TRIG 90 06/02/2021 HDL 38.0 06/02/2021 LDLCALC 34 06/02/2021 CREATININE, MG/DL, URINE Date Value Ref Range Status 11/13/2011 98.27 mg/dL Final Urine Creatinine Date Value Ref Range Status 04/14/2021 93.19 mg/dL Final MICROALBUMIN URINE RANDOM Date Value Ref Range Status 11/13/2011 417.0 ug/mL Final MICROALBUMIN/CREATININE RATIO Date Value Ref Range Status 11/13/2011 424.3 (H) 0 - 16 ug malb/mg creat Final Lab Results Component Value Date ALT 14 06/12/2021 ALT 20 06/09/2021 Cardiac echo: EF = Results for orders placed during the hospital encounter of 08/11/20 ECHOCARDIOGRAM 08/11/2020 (Final) Interpretation Summary Left ventricle demonstrates remodeling, with increased septal greater than posterior wall thickness. Normal LVEF >70%. Mild LV outflow acceleration without significant resting gradient. Diastolic function is abnormal and consistent with impaired relaxation (grade I). Probably normal left atrial pressure. Right ventricular size and function are normal. No hemodynamically significant valve disease apparent. No prior for comparison. * BOBBI Coates Meng, PhD - 06/21/2021 12:43 PM EDT Full note will follow. I have adjust his pump setting due to his hypoglycemia last night. Basal 0:00-6 am 1.4 units/hr CR 1:5 6 am to 8 pm 1.5 units/hr and CR 1:4 8 pm to 0:00 1.4 units/hr and CR 1:5. He can be discharged on the current pump seeing. * Miriam Fernandez RN - 06/21/2021 11:53 AM EDT Patient stated on Zortress while inpatient. Patient is also on Epclusa. Both medications are a significant cost to the IPR. Per transplant [facility], medications will need to be ordered from [facility] pharmacy. Physician will send new order for Zortress to check cost. There are currently no programs for assistance for Zortress, but there is a one time coupon. We will need to verify the kasper prior to getting the free one time trial of Zortress. Patient does have a 17 day home supplyof Epclusa that he can take to the facility with him. KAYY Pineda, RN Clinical Housecalls Nurse * MARISOL Bustillo - 06/21/2021 10:50 AM EDT Placement Plan Expected Discharge Date: 06/21/2021 Referred Level of Care: IPR Barriers: medical stability Current Referrals and Status 1. [facility]-accepted; pre-cert obtained SW received update from [facility] that pre-cert obtained through 06/27. Transport arranged today, Wednesday 06/21 @ 8005-1928 pending medical stability. Await update from physician regarding pt's ability to discharge. SW met with pt at bedside to discuss discharge plans. Pt voices agreement with discharge to [facility] v home with services. Pt voices w/c van as preferred transport mode. He voiced concern about medicationteaching/education. SW discussed including his spouse in with teaching/education before pt discharges from [facility]. SW provided update to I[facility] darden & requested facility provide joint teaching/educaitonwith pt/pt's spouse regarding his medications before discharge. SW phoned pt's spouse to relay the aforementioned information. She voiced agreement. IPR liaison requests pt provide his home Epclusa (pt currently providing [facility] with home medication also); notified medical team of the request. IPR inquired if pt able to obtain a refill before discharge also, as IPR unable to provide; CM inquiring. Pt's spouse inquired about pt's insulin pump censor status; notified physician. Inpatient endocrine/diabetes team following. Await medical team confirmation of pt's ability to discharge today. SW to continue & follow as needed. 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 SW notified CM to inquire if [facility] is able to provide the medication for patient to take with him at discharge; await response. ADDENDUM 06/21 @ 1145: Pt has 17 day supply of Epclusa left before refill needed; relayed information to Josue I[facility] liaison. ADDENDUM 06/21 @ 132: Received update from [facility] & CM that pt will need to fill his Zortress through [facility], but a 30 day free trial is available through assistant purchasing manager & [facility] is able to fill this for patient to take to IPR. Per physician, patient able to discharge today to IPR. Once cost of pt's Zortress known for refills, SW to notify IPR liaison if further follow up regarding out ofpocket cost for Zortress will be needed with [facility]. Addendum 06/21 @ 4532: SW provided pt's 30 day supply of Zortress to pt's RN for patient to take to [facility]. SW forwarded pt's new CTC lab letter from today to IPR. Updated IPR liaison. Met with pt at bedside to provide update on his Zortress & lab letter. No further SW needs identified at this time. 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 Hospital Plan: Patient to restart his insulin pump with home settings CSII with Novolog Basal 0000 1.5 Sensitivity 0000 1:25 Carb Coverage 0000 1:4 Target glucose 110 2. Discharge Plan: Please call on day of d/c for definitive recs. Please see [employer],under IM Consult Serv Endocrine/Diabetes - Team 2 Diab Consults for provider on day of discharge. Tentative discharge plan: (Please use the Diabetes Discharge Order Set to order medications and supplies) Primary team to please provide the following prescriptions: Novolog VIAL 3. Follow up needed: [facility], , for HFU in 2-4 weeks with INVESTMENT COUNSELOR 4. Education: Discussed daily plan 5. Will review glucoses and discuss with Dr Mohan as needed. Thank you for allowing us to participate in your patient's care. If you have questions please checkon [employer], under IM Consult Serv, Endocrine/Diabetes, and call the person listed for Team 2 as directed CC: Hyperglycemia History of Present Illness: Андрей Nickerson is a 60 y.o. year old male who is seen at bedside. Patient is eating well. Patient to restart his insulin pump and CGM. Received a message that patient did not have a transmitterso a sample transmitter was supplied to the patient. Upon setting up his pump and CGM, discovered that he was actually missing a sensor, not his transmitter. Pump restarted without CGM. Basal profile of 0.2 units per hour started until 1600 as patient received his glargine yesterday at 1700. Spoke with RN and patient over the phone to confirm that he successfully switched back to his normal profile at 1600. Current Diet Orders Procedures DIET CARB CONTROLLED Phosphorus and Potassium Restricted (Renal) Standing Status: Standing Number of Occurrences: 1 Order Specific Question: Additional Modifier: Answer: Phosphorus and Potassium Restricted (Renal) Current Regimen: Basal: Insulin glargine: 40 units at bedtime Prandial: Insulin lispro: 1 unit per 3 gram carbs qachs & prn Correction: Insulin lispro: 1 unit(s) per every 25 mg/dL above 150 mg/dL qachs Daily Glucose Review: Date Daily glucose review TDD Basal Prandial/ Correction 06/13/2021 180, 294, 355, 236 58 40 18 06/14/21 166, 289, 245, 251 66 40 26 06/15/21 147, 257, 225, 150 76 40 36 06/16/21 140, 186, 252, 118 66 20 56 06/17/21 171, 198, 214, 241, 439, 425, 80 40 20 06/18/21 284, 299, 272, 266, 213 111 40 71 06/19/21 166, 168, 227, 275, 223, 156 121 40 81 06/20/21 69, 91, 230 Review of Systems Diabetes: Negative for symptoms of hypoglycemia Physical Exam Constitutional: fair appearing male in no acute distress. Pulmonary/Chest: Respirations even and unlabored. Musculoskeletal: No acute abnormalities noted Neurological: Alert and interactive Psych: Cooperative Background History Андрей Nickerson is a 60 y.o. male with history CAD, HTN, hx of DM-1, hx of TIA, of renal tx 03/2021, DCed to SNF in Apr 2021 , found he has COVID-19 +ve in May s/p antibody infusion at that time, recently DCed home from SNF to home (with his parents). Admitted with increased confusion and weakness. He reports he was only home overnight before coming back to the hospital. H/o insulin pump buthas not been on in for several months as he has been at a SNF. Diabetes History: Type of Diabetes: Type 1 Diabetes Mellitus (T1D) Date of diagnosis: Age 10 Outpatient physician: Dr. Seth Low, endocrine Diabetes Complications: retinopathy and nephropathy s/p renal transplant Date of most recent dilated eye exam: 04/2021 DKA occurrences: 0 Home blood glucoses: He is checking his blood sugars using Dexcom CGM, however has not been wearingsince admission to SNF. ? Fastin-100 ? Hypoglycemia: Denies Home diabetes medications: Previously on T-slim/dexcom pump ? Basal: 1.5 units/hour ? Prandial: 1 unit per 4 grams ? Correction: 1 unit per 25 mg/dl above 150 mg/dl Cholesterol Medication: atorvastatin Home diet/meal plan: Eating less carbs for weight loss A1c this admission: Lab Results Component Value Date HGBA1C 5.9 (H) 06/13/2021 HGBA1C 8.5 (H) 11/13/2011 HGBA1C 8.2 (H) 06/04/2007 Blood pressure 124/60, pulse 83, temperature 98 F (36.7 C), temperature source Oral, resp. rate 16,height 1.778 m (5' 10), weight 109.5 kg (241 lb 4.8 oz), SpO2 97 %. Most recent entered Weight: 109.5 kg (241 lb 4.8 oz) Body mass index is 34.62 kg/m . Na/K+/Phos/Mg/Ca: 139/4.3/--/1.7/10.3 (06/21 603) Bun/Creat/Cl/CO2/Glucose: 43/2.65/111/19/230 (06/20 0604-06/20 1200) Lab Results Component Value Date CHOLESTEROL 90 06/02/2021 TRIG 90 06/02/2021 HDL 38.0 06/02/2021 LDLCALC 34 06/02/2021 CREATININE, MG/DL, URINE Date Value Ref Range Status 11/13/2011 98.27 mg/dL Final Urine Creatinine Date Value Ref Range Status 04/14/2021 93.19 mg/dL Final MICROALBUMIN URINE RANDOM Date Value Ref Range Status 11/13/2011 417.0 ug/mL Final MICROALBUMIN/CREATININE RATIO Date Value Ref Range Status 11/13/2011 424.3 (H) 0 - 16 ug malb/mg creat Final Lab Results Component Value Date ALT 14 06/12/2021 ALT 20 06/09/2021 Cardiac echo: EF = Results for orders placed during the hospital encounter of 08/11/20 ECHOCARDIOGRAM 08/11/2020 (Final) Interpretation Summary Left ventricle demonstrates remodeling, with increased septal greater than posterior wall thickness. Normal LVEF >70%. Mild LV outflow acceleration without significant resting gradient. Diastolic function is abnormal and consistent with impaired relaxation (grade I). Probably normal left atrial pressure. Right ventricular size and function are normal. No hemodynamically significant valve disease apparent. No prior for comparison. * Alden Urena, PT - 06/20/2021 3:21 PM EDT Acute Physical Therapy Treatment Prior to Admission [facility] score(s): PRIOR LEVEL AM-PAC Mobility Raw Score: 24 PRIOR LEVEL AM-PAC Activity Raw Score: 24 Current AM-PAC score(s): CURRENT AM-PAC Mobility Raw Score: 22 Based on the above AM-PAC score(s) and PT clinical judgment, patient is a good candidate for discharge to Home with Outpatient Rehab Services Discharge Barriers: Patient needs assistance with functional mobility, Lack of 1st floor bedroom while patient is unable to safely navigate stairs Mobility equipment available at home: 2 wheeled walker ADL equipment available at home: shower chair Equipment needed for discharge: none Current therapy frequency recommendation in acute: Therapy Frequency: 3 times a week Precautions and Weightbearing Status: Existing Precautions/Restrictions: fall Patient Safety Communication Prior to Visit: Nursing Respiratory Status O2 Device: room air Subjective: Pt eager to complete treatment. Reports being in the chair for ~2 hours prior to PT arrival, independently transferred there Pain: General Pain Documentation (Adult, OB, Peds) Presence of Pain: complains of pain/discomfort Pain Location: abdomen, left lower quadrant DVPRS (Defense and Veterans Pain Rating Scale) DVPRS: Rest: 0- no pain DVPRS: Activity: 2- mild pain Objective/Observation: Vitals/Vitals Responses to Treatment: WFL Cognition Overall Cognitive Status: Within Functional Limits Arousal/Alertness: Appropriate responses to stimuli Orientation Level: Oriented X4 Following Commands: Follows all commands and directions without difficulty Safety Judgment: Good awareness of safety precautions Deficits: Fully aware of deficits Extremity Assessments: See PT Evaluation flowsheet for Extremity Measurement updates. Balance: Sitting Balance Static Sitting-Level of Assistance: Independent Dynamic Sitting-Level of Assistance: Independent Standing Balance Static Standing-Level of Assistance: Supervision Dynamic Standing-Level of Assistance: Stand-by assist Standing-Balance Support: 2 wheeled walker Mobility Assessment/Intervention: Rolling/Turning Mobility Zalma Level: Rolling/Turning: not tested (Pt reports independently completing bed mobility and transfer to the chair prior to PT arrival) Scooting Bridging Mobility Zalma Level: Scooting/Bridging: not tested Supine to Sit Mobility Zalma Level: Supine->Sit: not tested Sit to Supine Mobility Zalma Level: Sit->Supine: not tested Transfer Assessment/Intervention: Sit to Stand Transfer Zalma Level: Sit->Stand: supervision Stand to Sit Transfer Zalma Level: Stand->Sit: supervision Gait/Functional Mobility Assessment/Intervention: Gait Assessment Zalma Level: Gait: stand-by assist Assistive Device: Gait: 2 wheeled walker Gait Distance (feet): 250 Gait Deviations Identified: decreased katelyn, flexed posture Gait Skilled Rationale: verbal, upright posture, proximity of assistive device Skilled Intervention/Details - Gait: minor cues provided for upright posture and proximity to WW; good carryover demonstrated Stairs Assessment/Intervention: Stairs Assessment Zalma Level: Stair Negotiation: stand-by assist Assistive Device: Stair Negotiation: right rail (ascending) Number of stairs: 12 Stairs Skilled Rationale: verbal, demonstration, nonreciprocal pattern Skilled Intervention/Details - Stairs: PT provided initial demonstration of appropriate sequencing for step-to pattern. Pt was able to return demonstration for the first 6 stairs ascending, then progressed to reciprocal pattern for the final 6 stairs. Pt descended stairs with step-to pattern, reporting this is normal for him due to chronic R hip issues Outcome Score(s): 5X Sit to Stand Test recorded time: 24.48 seconds CURRENT [facility] Basic Mobility Inpatient Short Form Turning over in bed: 4 - No Assistance Sitting/standing from chair: 4 - No Assistance Moving from lying on back to sittin - No Assistance Moving to and from bed to chair: 4 - No Assistance Walk in hospital room: 3 - A Little Assistance Climbing 3-5 steps with a railin - A Little Assistance CURRENT [facility] Mobility Raw Score: 22 CURRENT [facility] Mobility Functional Limitation/Modifier: 20.91% Currently Impaired in Basic Mobility- CJ Interventions: Intervention 1 Intervention Name: Standing LE Ther Ex Sets/Reps/Duration: 15 Details: bilat heel raises, hamstring curls, marches; all completed with use of WW; cues/demo provided throughout for appropriate technique Assessment & Plan: Pt demonstrates improved transfer independence, ambulation tolerance and stair negotiation without issue. Discharge destination updated to home with outpatient PT services and SW made aware. PT will continue to see pt 3x/week while admitted to allow him to return to his highest practical level Patient Instruction/Education this session: discharge recs, HEP Plan for next session: Progress dynamic standing balance, ambulation quality as able Acute PT Goals Plan of Care by Alden Urena PT at 06/20/2021 3:11 PM Version 1 of 1 Problem: PT - Balance/Coordination/Neuro Re-Education Goal: Standing Dynamic/Static Balance Description: Pt will perform standing balance tasks for 10 minutes with standby assistance with least restrictive device in order to improve functional mobility and safety with standing tasks. Outcome: Progressing Toward Goal Problem: PT - Mobility Goal: Ambulation Description: Pt will ambulate 150 feet with least restrictive device with standby assistance to improve ability to navigate home environment. Outcome: Progressing Toward Goal Goal: Stairs Description: Pt will ascend/descend 12 stairs with railings with standby assistance with least restrictive device to improve ability to perform functional mobility necessary in recommended discharge environment. Outcome: Progressing Toward Goal Problem: PT - Transfers Goal: Sit <-> Stand Description: Pt will perform sit to/from stand transfers with standby assistance with least restrictive device in order to improve functional mobility and safety. Outcome: Progressing Toward Goal Goal: Strength/ROM Description: Pt will perform 2 sets of 15 repetitions of lower bilateral extremity exercises with standby assistance in order to improve strength, maintain ROM, necessary for functional mobility. Outcome: Progressing Toward Goal PT treatment consisted of Therapeutic Procedure and Gait/Stair Training to work and progress towards above goal(s). Treating Therapist: Alden Urena PT Additional Details: Co-evaluation/co-treatment performed?: No simultaneous treatment performed I used facemask, protective eye shield, and gloves in today's patient interaction. Patient location at end of session: chair Alarms on at end of session: none Needs in reach. Time In: 1430 Time Out: 1459 Total Visit Time: 29 minutes Total Treatment Time: 29 minutes Upon discontinuation of Acute Care Physical Therapy Services or patient discharge from the hospitalthis note represents the current Physical Therapy Discharge Summary. * Darren George MD - 06/20/2021 2:46 PM EDT [facility] Daily Progress Note Patient: Андрей Nickerson, 1960, [id number] Physician: Darren George MD, Attending Physician, Pager #[phone], Gen Med 6 service Length of stay: 9 days. IMPRESSION/PLAN Андрей Nickerson is a 60 y.o. male with history of renal transplant (03/2021). CAD, HTN, Type 1DM, hx of TIA, COVID-19, recently DCed home from SNF but reported increased confusion and weakness,leading to repeat hospitalization. Encephalopathy - Resolved: Noticed while he was at SNF recently but get worse according to his . Unclear etiology, no UTI, no PNA. TSH, B12 wnl. CT head outside reported no acute abnormality. Brain MRI no acute abnormality, no new stroke. - Neuro evaluated him, thought could be related to post COVID confusion, versus effect from the anesthesia after recent surgery, no need for LP. - referral for neuro cognitive clinic for official evaluation (ordered) S/p renal transplant 03/22 - Transplant nephrology - Continue mycophenolate 500mg q12 - Stopped tacro, now on everolimus 2 mg BID - bactrim for ppx, prednisone - valcyte q48 hours - Peritoneal dialysis catheter removed on 06/18 Type 1 DM: - Endocrine following, returning him to his insulin pump Essential HTN: No previous Hx of HTN, not on meds at home. - Started on carvedilol here, 12.5 mg BID currently Hx of COVID-19: appears he had this in early May s/p antibody infusion. - no symptoms currently Hep C: received with transplant - continue sofosbuvir-velpatasvir CAD: continue plavix and statin NORBERTO: CPAP home machine Obesity: Body mass index is 34.62 kg/m . DVT prophylaxis: SubQ Heparin Disposition: Inpatient for work-up/management of encephalopathy. Medically stable for discharge, awaiting acceptance to inpatient rehab. Code Status: FULL CODE INTERVAL HISTORY/SUBJECTIVE No acute events overnight. Patient remains in good spirits, awaiting dispo/placement. Glad to be going back on insulin pump, states doing very well with it before. No particular complaints/concerns. OBJECTIVE Vitals: [range] current Temp: [97.3 F (36.3 C)-98 F (36.7 C)] 97.3 F (36.3 C) Pulse (Heart Rate): [67-83] 78 Resp Rate: [16-20] 18 BP: (110-144)/(46-64) 110/64 O2 Sat (%): [95 %-99 %] 99 % Weight: [109.5 kg (241 lb 4.8 oz)] 109.5 kg (241 lb 4.8 oz) O2 Device: room air (06/19/21 2119) Flow (L/min): 3 (06/17/21 1240) Intake/Output last 3 shifts: I/O last 3 completed shifts: In: 1095 [P.O.:1095] Out: 850 [Urine:850] Gen: Alert, no acute distress, pleasant, appears comfortable sitting up in chair ENT: EOMI, moist oral mucosa Resp: clear to auscultation bilaterally, non-labored breathing Cardio: RRR, normal S1, S2 GI: soft, non-tender to palpation, BS+ Extremities: Trace lower extremity edema Neuro: No focal deficits Psych: Ox3, appropriate affect and cognition DATA REVIEW WBC/Hgb/Hct/Plts: 7.45/11.5/36.5/154 (06/21 603) Na/K+/Phos/Mg/Ca: 139/4.3/--/1.7/10.3 (06/21 603) Bun/Creat/Cl/CO2/Glucose: 43/2.65/111/19/230 (06/21 603-06/20 1200) Body mass index is 34.62 kg/m . Signed, Darren George MD * BOBBI Friend - 06/20/2021 2:46 PM EDT I saw Андрей Nickerson at the [facility] on 06/20/2021. Subjective: Seen at bedside; No overnight symptoms. Physical Examination: Temp: [97.3 F (36.3 C)-98 F (36.7 C)] 97.3 F (36.3 C) Pulse (Heart Rate): [67-83] 78 Resp Rate: [16-20] 18 BP: (110-144)/(46-64) 110/64 O2 Sat (%): [95 %-99 %] 99 % Weight: [109.5 kg (241 lb 4.8 oz)] 109.5 kg (241 lb 4.8 oz) I/O last 3 completed shifts: In: 1095 [P.O.:1095] Out: 850 [Urine:850] I/O this shift: In: 840 [P.O.:840] Out: 475 [Urine:475] BP 110/64 (BP Location: Right arm, BP Position: Sitting) Pulse 78 Temp 97.3 F (36.3 C) (Oral) Resp 18 Ht 1.778 m (5' 10) Wt 109.5 kg (241 lb 4.8 oz) SpO2 99% BMI 34.62 kg/m Smoking Status Current Some Day Smoker Constitutional: Well developed, well nourished, in no physical distress. HEENT: PERRL, no scleral icterus, moist pharynx Neck: Supple, no JVD, no carotid bruits Chest: Clear to auscultation bilaterally, no labored breathing, no W/R/R Cardiovascular: S1 & S2 with regular rhythm and normal rate, no uremic rub Abdominal: soft, NTTTP, ND, NABS; dressing noted; RLQ incision healing well Extremities: No edema, no cyanosis or clubbing, equal distal pulses; AVF in L forearm Neurological: AA/Ox3, moves all four extremities Skin: No rashes or bruises : No CVA tenderness to palpation Relevent Data: atorvastatin 40 mg Oral Daily carveDILOL 12.5 mg Oral Q12H clopidogrel 75 mg Oral Daily sofosbuvir-velpatasvir 1 tablet Oral Daily everolimus 2 mg Oral Q12HNS heparin 5,000 Units Subcutaneous Q8H insulin aspart Subcutaneous QACHS mycophenolate mofetil 500 mg Oral Q12HNS prednisoLONE acetate 1 drop Both Eyes BID senna 8.6 mg Oral Daily sulfamethoxazole-trimethoprim 1 tablet Oral Q2 days Tamsulosin HCl 0.4 mg Oral Daily valGANciclovir 450 mg Oral Q48H insulin aspart Lab Results Component Value Date WBC 7.45 06/20/2021 HGB 11.5 (L) 06/20/2021 HCT 36.5 (L) 06/20/2021 PLATELET 154 06/20/2021 MCV 97.3 (H) 06/20/2021 Lab Results Component Value Date SODIUM 139 06/20/2021 POTASSIUM 4.3 06/20/2021 CHLORIDE 111 (H) 06/20/2021 CO2 19 (L) 06/20/2021 BUN 43 (H) 06/20/2021 CREATSERUM 2.65 (H) 06/20/2021 GLUCOSE 230 (H) 06/20/2021 Lab Results Component Value Date CALCIUM 10.3 06/20/2021 PHOSPHORUS 2.3 06/12/2021 Lab Results Component Value Date CREATSERUM 2.65 (H) 06/20/2021 CREATSERUM 2.97 (H) 06/19/2021 CREATSERUM 3.10 (H) 06/18/2021 CREATSERUM 3.10 06/09/2021 CREATSERUM 3.44 06/06/2021 CREATSERUM 2.7 06/02/2021 Lab Results Component Value Date SPGRVTYUR 1.026 06/14/2021 GLUCOSEURINE >=1000 mg/dL (A) 06/14/2021 BILIRUBINURI NEGATIVE 11/06/2006 KETONESURINE Negative 06/14/2021 BLOODURINE Negative 06/14/2021 NITRITESURIN Negative 06/14/2021 LEUKOCESTUR Negative 06/14/2021 WBCURINE 0-5 06/14/2021 RBCURINE 0-2 06/14/2021 BACTERIAURIN ABSENT 06/14/2021 Assessment/Plan: In summary, Mr. Nickerson is a 60 yr old donor transplant recipient from 03/27/2021. He apparently had altered mentation leading to this admission but he seems to be at baseline function now. He also did not have any trouble ambulating prior to the transplant but has become significantly weaker since. Still using a walker at home. 1. Immunosuppression: On everolimus for 4 days and trough levels are low. Increased dose to 3 mg BID. Goal trough level is 6-8 ng/ml. Will check another level on Sunday. Continue Cellcept 500 mg BID. 2. Kidney transplant function: Improving creatinine. His baseline renal biopsy showed Moderate acute tubular necrosis (ATN); numerous subcapsular obsolescent glomeruli, consistent with nephrosclerosis. Suggest continuing furosemide 40 mg BID maintenance for now. 3. Hypertension: BP seems to be well controlled on carvedilol and tamsulocin. Will follow Leon Skinner MD Attending Transplant Cafe Lead * Miriam Fernandez RN - 06/20/2021 2:19 PM EDT Progression of Care Note Expected Discharge Date: 06/21/2021 Medical Milestones Remaining: Medically ready Assessment and Discharge Plan as of 06/20/2021 2:19 PM Anticipated discharge disposition: Inpatient Rehab Facility Anticipated Services at Discharge: Physical Therapy, Occupational Therapy, Outpatient follow up, [facility] Barriers to Discharge: Transportation Explanation of Barriers[facility] Readmission Risk Score Risk of Readmission: 8.7 Category Reference: High:16-100 Mod-High:10-16 Mod-Low: 5-10 Low: 0-5 * MARISOL Bustillo - 06/20/2021 11:31 AM EDT 06/17/21 1130 Patient Choice for Post-Acute Providers Patient Offered Choice List Yes - Patient Requested List for Review Establishing care? Yes Level of care for choice Inpatient Rehab Preferred geographic region Discussed and honored Source of list Aidin List was provided to Patient;Spouse Method of delivery In Person;Phone Call Review Is the provider part of a joint venture or have a financial relationship with discharging hospital?No Placement Plan Expected Discharge Date: 06/21/2021 Referred Level of Care: I[facility] Barriers: pre-cert/transport/medical stability Current Referrals and Status 1. [facility]-available/reserved SW received update from w/e SW that pt chose aforementioned [facility]. SW forwarded updates to I[facility]; awaitPT/OT updates & will forward once available. Pre-cert requested; await pre-cert. SW met with patient at bedside to discuss discharge plan & he is in agreement with [facility];pt in agreement with SW updating pt's spouse regarding discharge plan also. SW phoned pt's spouse to provide update. SW will continue to follow as needed. Fide Grimes [employer] Farm[employer] ADDENDUM 06/20 @ 7250: SW received update from [facility] that pt's pre-cert obtained (good through 06/27). Pt needs to provide home Epclusa; pt's home Epclusa is at hospital with approximately 5 days left per pt's RN. Left voice message for pt's spouse requesting call back to inquire if she is able to provide pt's home medication to [facility] as [facility] is unable to provide due to cost; Await response from pt's spouse. No new COVID test needed per IPR liaisonJosue as pt was recently COVID (+) per chart review. SW to arrange transportation after confirmation obtained from pt's spouse regarding ability to provide pt's home Epclusa. 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 Hospital Plan: Glucose remains elevated, increase carb ratio Move basal up a few hours earlier in the day to facilitate restarting his insulin pump in the next day or two Basal: Insulin glargine: 40 units at bedtime > 1700 Prandial: Insulin lispro: 1 unit per 4 > 3 gram carbs qachs & prn Correction: Insulin lispro: 1 unit(s) per every 25 mg/dL above 150 mg/dL qachs 2. Discharge Plan: Please call on day of d/c for definitive recs. Please see Vivek,under IM Consult Serv Endocrine/Diabetes - Team 2 Diab Consults for provider on day of discharge. Tentative discharge plan: (Please use the Diabetes Discharge Order Set to order medications and supplies) Primary team to please provide the following prescriptions: - Lantus (insulin glargine) insulin PENS with needles, dose TBD - Humalog (Lispro) insulin PENS with needles - mealtime insulin (QAC): dose TBD units with a large meal or TBD units with a small meal - correction insulin (ACHS): give in addition to fixed meal dosing for BG >150: Correction: TBD - insulin PEN NEEDLES, enough for 5 needles per day - generic glucometer testing strips and lancets, enough for 4 tests per day - Glucagon (pen or nasal spray) - Urine ketone strips - Goal in the AM of 80-130 and the rest of the day less than 180. If blood sugar greater than 250s or less than 70 consistently, call your doctor, as medications will need adjusting. 3. Follow up needed: [facility], , for HFU in 2-4 weeks with INVESTMENT COUNSELOR 4. Education: Discussed daily plan 5. Will review glucoses and discuss with Dr Mohan as needed. Thank you for allowing us to participate in your patient's care. If you have questions please checkon [employer], under IM Consult Serv, Endocrine/Diabetes, and call the person listed for Team 2 as directed CC: Hyperglycemia History of Present Illness: Андрей Nickerson is a 60 y.o. year old male who is seen at bedside. Patient is eating well. Glucoses have been elevated. Current Diet Orders Procedures DIET CARB CONTROLLED Phosphorus and Potassium Restricted (Renal) Standing Status: Standing Number of Occurrences: 1 Order Specific Question: Additional Modifier: Answer: Phosphorus and Potassium Restricted (Renal) Current Regimen: Basal: Insulin glargine: 40 units at bedtime Prandial: Insulin lispro: 1 unit per 4 gram carbs qachs & prn Correction: Insulin lispro: 1 unit(s) per every 25 mg/dL above 150 mg/dL qachs Daily Glucose Review: Date Daily glucose review TDD Basal Prandial/ Correction 06/13/2021 180, 294, 355, 236 58 40 18 06/14/21 166, 289, 245, 251 66 40 26 06/15/21 147, 257, 225, 150 76 40 36 06/16/21 140, 186, 252, 118 66 20 56 06/17/21 171, 198, 214, 241, 439, 425, 80 40 20 06/18/21 284, 299, 272, 266, 213 111 40 71 06/19/21 166, 168, 227 Review of Systems Diabetes: Negative for symptoms of hypoglycemia Physical Exam Constitutional: fair appearing male in no acute distress. Pulmonary/Chest: Respirations even and unlabored. Musculoskeletal: No acute abnormalities noted Neurological: Alert and interactive Psych: Cooperative Background History Андрей Nickerson is a 60 y.o. male with history CAD, HTN, hx of DM-1, hx of TIA, of renal tx 03/2021, DCed to SNF in Apr 2021 , found he has COVID-19 +ve in May s/p antibody infusion at that time, recently DCed home from SNF to home (with his parents). Admitted with increased confusion and weakness. He reports he was only home overnight before coming back to the hospital. H/o insulin pump buthas not been on in for several months as he has been at a SNF. Diabetes History: Type of Diabetes: Type 1 Diabetes Mellitus (T1D) Date of diagnosis: Age 10 Outpatient physician: Dr. Seth Low, endocrine Diabetes Complications: retinopathy and nephropathy s/p renal transplant Date of most recent dilated eye exam: 04/2021 DKA occurrences: 0 Home blood glucoses: He is checking his blood sugars using Dexcom CGM, however has not been wearingsince admission to SNF. ? Fastin-100 ? Hypoglycemia: Denies Home diabetes medications: Previously on T-slim/dexcom pump ? Basal: 1.5 units/hour ? Prandial: 1 unit per 4 grams ? Correction: 1 unit per 25 mg/dl above 150 mg/dl Cholesterol Medication: atorvastatin Home diet/meal plan: Eating less carbs for weight loss A1c this admission: Lab Results Component Value Date HGBA1C 5.9 (H) 06/13/2021 HGBA1C 8.5 (H) 11/13/2011 HGBA1C 8.2 (H) 06/04/2007 Blood pressure 132/58, pulse 71, temperature 97.4 F (36.3 C), temperature source Oral, resp. rate 18, height 1.778 m (5' 10), weight 109.2 kg (240 lb 11.2 oz), SpO2 96 %. Most recent entered Weight: 109.2 kg (240 lb 11.2 oz) Body mass index is 34.54 kg/m . Na/K+/Phos/Mg/Ca: 137/4.5/--/1.7/10.3 (06/19 609) Bun/Creat/Cl/CO2/Glucose: 44/2.97/110/19/168 (06/19 0510-06/19 0642) Lab Results Component Value Date CHOLESTEROL 90 06/02/2021 TRIG 90 06/02/2021 HDL 38.0 06/02/2021 LDLCALC 34 06/02/2021 CREATININE, MG/DL, URINE Date Value Ref Range Status 11/13/2011 98.27 mg/dL Final Urine Creatinine Date Value Ref Range Status 04/14/2021 93.19 mg/dL Final MICROALBUMIN URINE RANDOM Date Value Ref Range Status 11/13/2011 417.0 ug/mL Final MICROALBUMIN/CREATININE RATIO Date Value Ref Range Status 11/13/2011 424.3 (H) 0 - 16 ug malb/mg creat Final Lab Results Component Value Date ALT 14 06/12/2021 ALT 20 06/09/2021 Cardiac echo: EF = Results for orders placed during the hospital encounter of 08/11/20 ECHOCARDIOGRAM 08/11/2020 (Final) Interpretation Summary Left ventricle demonstrates remodeling, with increased septal greater than posterior wall thickness. Normal LVEF >70%. Mild LV outflow acceleration without significant resting gradient. Diastolic function is abnormal and consistent with impaired relaxation (grade I). Probably normal left atrial pressure. Right ventricular size and function are normal. No hemodynamically significant valve disease apparent. No prior for comparison. * DIAN [place] - 06/19/2021 2:05 PM EDT Placement Plan Expected Discharge Date: 06/18/2021 Referred Level of Care: IPR v SNF Barriers: facility acceptance/pt-pt's family choice/pre- cert/transportation/medical stability Current Referrals and Status 1. [facility], no bed 2. [facility]-available 3. [facility]-unavailable, too complex 4. [facility] ([phone])-unavailable 5. [facility]- [facility] ([phone])-unavailable 6. SNF-12 referrals with no response; 2 declined-no available options SW attempted to contact pt's spouse, Nalini & voice mail is full. SW will attempt again and continue to follow. ADDENDUM Fruit [employer] Farmworker able to meet with patient and discussed discharge planning. Patient voices agreement with going to [facility] for inpatient rehabilitation. Fruit I[employer] Farmworker will follow with this facility and request they begin pre-cert. * Darren George MD - 06/19/2021 10:44 AM EDT [facility] Daily Progress Note Patient: Андрей Nickerson, 1960, [id number] Physician: Darren George MD, Attending Physician, Pager #[phone], Gen Med 6 service Length of stay: 8 days. IMPRESSION/PLAN Андрей Nickerson is a 60 y.o. male with history of renal transplant (03/2021). CAD, HTN, Type 1DM, hx of TIA, COVID-19, recently DCed home from SNF but reported increased confusion and weakness,leading to repeat hospitalization. Encephalopathy - Resolved: Noticed while he was at SNF recently but get worse according to his . Unclear etiology, no UTI, no PNA. TSH, B12 wnl. CT head outside reported no acute abnormality. Brain MRI no acute abnormality, no new stroke. - Neuro evaluated him, thought could be related to post COVID confusion, versus effect from the anesthesia after recent surgery, no need for LP. - referral for neuro cognitive clinic for official evaluation (ordered) S/p renal transplant 03/22 - Transplant nephrology - Continue mycophenolate 500mg q12 - Stopped tacro, now on everolimus 2 mg BID - bactrim for ppx, prednisone - valcyte q48 hours - Peritoneal dialysis catheter removed on 06/18 Type 1 DM: - blood sugar not controlled - he used to be on Insulin pump - A1c 5.6% - Endocrine managing, appreciate recs Essential HTN: No previous Hx of HTN, not on meds at home. - Started on carvedilol here, 12.5 mg BID currently Hx of COVID-: appears he had this in early May s/p antibody infusion. - no symptoms currently Hep C: received with transplant - continue sofosbuvir-velpatasvir CAD: continue plavix and statin NORBERTO: CPAP home machine Obesity: Body mass index is 34.54 kg/m . DVT prophylaxis: SubQ Heparin Disposition: Inpatient for work-up/management of encephalopathy. Medically stable for discharge, awaiting acceptance to inpatient rehab. Code Status: FULL CODE INTERVAL HISTORY/SUBJECTIVE No acute events overnight. Patient urinated well with Lasix yesterday. Feeling well this morning, slight twinges of abdominal pain occasionally, otherwise doing well. Disappointed that unable to go to [facility], but still thinks he would benefit from therapy. OBJECTIVE Vitals: [range] current Temp: [97.4 F (36.3 C)-98.5 F (36.9 C)] 97.4 F (36.3 C) Pulse (Heart Rate): [71-79] 71 Resp Rate: [16-18] 18 BP: (113-148)/(51-72) 132/58 O2 Sat (%): [96 %-97 %] 96 % Weight: [109.2 kg (240 lb 11.2 oz)-117.8 kg (259 lb 9.6 oz)] 109.2 kg (240 lb 11.2 oz) O2 Device: room air (06/19/21 0819) Flow (L/min): 3 (06/17/21 1240) Intake/Output last 3 shifts: I/O last 3 completed shifts: In: 1240 [P.O.:1240] Out: 2500 [Urine:2500] Gen: Alert, no acute distress, pleasant, appears comfortable sitting up in chair ENT: EOMI, moist oral mucosa Resp: clear to auscultation bilaterally, non-labored breathing Cardio: RRR, normal S1, S2 GI: soft, non-tender to palpation, BS+ Extremities: Trace lower extremity edema Neuro: No focal deficits Psych: Ox3, appropriate affect and cognition DATA REVIEW WBC/Hgb/Hct/Plts: 8.08/11.0/34.9/154 (06/19 609) Na/K+/Phos/Mg/Ca: 137/4.5/--/1.7/10.3 (06/19 609) Bun/Creat/Cl/CO2/Glucose: 44/2.97/110/19/168 (06/19 609-06/19 641) Body mass index is 34.54 kg/m . Signed, Darren George MD * Shu PerezDIAN antonio - 06/18/2021 2:31 PM EDT Placement Plan Expected Discharge Date: 06/18/2021 Referred Level of Care: IPR v SNF Barriers: facility acceptance/pt-pt's family choice/pre- cert/transportation/medical stability Current Referrals and Status 1. [facility], no bed 2. [facility]-available 3. [facility]-unavailable, too complex 4. [facility] ([phone])-unavailable 5. [facility]- [facility] ([phone])-unavailable 6. SNF-12 referrals with no response; 2 declined-no available options SW attempted to contact pt's spouse, Nalini & voice mail is full. SW will attempt again and continue to follow. 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 Hospital Plan: Glucose escalated into the 400's yesterday as he received dexamethasone in the OR and his glargine was reduced signficantly for NPO status. Steroid hyperglycemia will fade today and he also received full glargine dose last night No changes to regimen today Basal: Insulin glargine: 40 units at bedtime Prandial: Insulin lispro: 1 unit per 4 gram carbs qachs & prn Correction: Insulin lispro: 1 unit(s) per every 25 mg/dL above 150 mg/dL qachs 2. Discharge Plan: Please call on day of d/c for definitive recs. Please see Vivek,under IM Consult Serv Endocrine/Diabetes - Team 2 Diab Consults for provider on day of discharge. Tentative discharge plan: (Please use the Diabetes Discharge Order Set to order medications and supplies) Primary team to please provide the following prescriptions: - Lantus (insulin glargine) insulin PENS with needles, dose TBD - Humalog (Lispro) insulin PENS with needles - mealtime insulin (QAC): dose TBD units with a large meal or TBD units with a small meal - correction insulin (ACHS): give in addition to fixed meal dosing for BG >150: Correction: TBD - insulin PEN NEEDLES, enough for 5 needles per day - generic glucometer testing strips and lancets, enough for 4 tests per day - Glucagon (pen or nasal spray) - Urine ketone strips - Goal in the AM of 80-130 and the rest of the day less than 180. If blood sugar greater than 250s or less than 70 consistently, call your doctor, as medications will need adjusting. 3. Follow up needed: [facility], , for HFU in 2-4 weeks with INVESTMENT COUNSELOR 4. Education: Discussed daily plan 5. Will review glucoses and discuss with Dr Mohan as needed. Thank you for allowing us to participate in your patient's care. If you have questions please checkon [employer], under IM Consult Serv, Endocrine/Diabetes, and call the person listed for Team 2 as directed CC: Hyperglycemia History of Present Illness: Андрей Nickerson is a 60 y.o. year old male who is seen at bedside. Patient was NPO most of theday yesterday, received 4 mg of dexamethasone yesterday in the OR with glucose escalating into the 400's. Discussed restarting his insulin pump in the next few days. Current Diet Orders Procedures DIET CARB CONTROLLED Phosphorus and Potassium Restricted (Renal) Standing Status: Standing Number of Occurrences: 1 Order Specific Question: Additional Modifier: Answer: Phosphorus and Potassium Restricted (Renal) Current Regimen: Basal: Insulin glargine: 40 units at bedtime Prandial: Insulin lispro: 1 unit per 4 gram carbs qachs & prn Correction: Insulin lispro: 1 unit(s) per every 25 mg/dL above 150 mg/dL qachs Daily Glucose Review: Date Daily glucose review TDD Basal Prandial/ Correction 06/13/2021 180, 294, 355, 236 58 40 18 06/14/21 166, 289, 245, 251 66 40 26 06/15/21 147, 257, 225, 150 76 40 36 06/16/21 140, 186, 252, 118 66 20 56 06/17/21 171, 198, 214, 241, 439, 425, 80 40 20 Review of Systems Diabetes: Negative for symptoms of hypoglycemia Physical Exam Constitutional: fair appearing male in no acute distress. Pulmonary/Chest: Respirations even and unlabored. Musculoskeletal: No acute abnormalities noted Neurological: Alert and interactive Psych: Cooperative Background History Андрей Nickerson is a 60 y.o. male with history CAD, HTN, hx of DM-1, hx of TIA, of renal tx 03/2021, DCed to SNF in Apr 2021 , found he has COVID-19 +ve in May s/p antibody infusion at that time, recently DCed home from SNF to home (with his parents). Admitted with increased confusion and weakness. He reports he was only home overnight before coming back to the hospital. H/o insulin pump buthas not been on in for several months as he has been at a SNF. Diabetes History: Type of Diabetes: Type 1 Diabetes Mellitus (T1D) Date of diagnosis: Age 10 Outpatient physician: Dr. Seth Low, endocrine Diabetes Complications: retinopathy and nephropathy s/p renal transplant Date of most recent dilated eye exam: 04/2021 DKA occurrences: 0 Home blood glucoses: He is checking his blood sugars using Dexcom CGM, however has not been wearingsince admission to SNF. ? Fastin-100 ? Hypoglycemia: Denies Home diabetes medications: Previously on T-slim/dexcom pump ? Basal: 1.5 units/hour ? Prandial: 1 unit per 4 grams ? Correction: 1 unit per 25 mg/dl above 150 mg/dl Cholesterol Medication: atorvastatin Home diet/meal plan: Eating less carbs for weight loss A1c this admission: Lab Results Component Value Date HGBA1C 5.9 (H) 06/13/2021 HGBA1C 8.5 (H) 11/13/2011 HGBA1C 8.2 (H) 06/04/2007 Blood pressure 139/72, pulse 72, temperature 98.1 F (36.7 C), temperature source Oral, resp. rate 16, height 1.778 m (5' 10), weight 110 kg (242 lb 9.6 oz), SpO2 97 %. Most recent entered Weight: 110 kg (242 lb 9.6 oz) Body mass index is 34.81 kg/m . Na/K+/Phos/Mg/Ca: 133/5.3/--/1.7/10.2 (06/19 643) Bun/Creat/Cl/CO2/Glucose: 43/3.10/108/17/299 (06/19 643) Lab Results Component Value Date CHOLESTEROL 90 06/02/2021 TRIG 90 06/02/2021 HDL 38.0 06/02/2021 LDLCALC 34 06/02/2021 CREATININE, MG/DL, URINE Date Value Ref Range Status 11/13/2011 98.27 mg/dL Final Urine Creatinine Date Value Ref Range Status 04/14/2021 93.19 mg/dL Final MICROALBUMIN URINE RANDOM Date Value Ref Range Status 11/13/2011 417.0 ug/mL Final MICROALBUMIN/CREATININE RATIO Date Value Ref Range Status 11/13/2011 424.3 (H) 0 - 16 ug malb/mg creat Final Lab Results Component Value Date ALT 14 06/12/2021 ALT 20 06/09/2021 Cardiac echo: EF = Results for orders placed during the hospital encounter of 08/11/20 ECHOCARDIOGRAM 08/11/2020 (Final) Interpretation Summary Left ventricle demonstrates remodeling, with increased septal greater than posterior wall thickness. Normal LVEF >70%. Mild LV outflow acceleration without significant resting gradient. Diastolic function is abnormal and consistent with impaired relaxation (grade I). Probably normal left atrial pressure. Right ventricular size and function are normal. No hemodynamically significant valve disease apparent. No prior for comparison. * Darren George MD - 06/18/2021 11:04 AM EDT [facility] Daily Progress Note Patient: Андрей Nickerson, 1960, [id number] Physician: Darren George MD, Attending Physician, Pager #[phone], Gen Med 6 service Length of stay: 7 days. IMPRESSION/PLAN Андрей Nickerson is a 60 y.o. male with history of renal transplant (03/2021). CAD, HTN, Type 1DM, hx of TIA, COVID-19, recently DCed home from SNF but reported increased confusion and weakness,leading to repeat hospitalization. Encephalopathy: Noticed while he was at SNF recently but get worse according to his . Unclear etiology, no UTI, no PNA. TSH, B12 wnl. CT head outside reported no acute abnormality. Brain MRI no acute abnormality, no new stroke. - Neuro evaluated him, thought could be related to post COVID confusion, versus effect from the anesthesia after recent surgery, no need for LP. -referral for neuro cognitive clinic for official evaluation (ordered) S/p renal transplant 03/22 - Transplant nephrology - Continue mycophenolate 500mg q12 - Stopped tacro, now on everolimus 2 mg BID - Some fluid retention, giving IV Lasix 80 mg x1 - bactrim for ppx, prednisone - valcyte q48 hours - Peritoneal dialysis catheter removed on 06/18 Type 1 DM: - blood sugar not controlled - he used to be on Insulin pump - A1c 5.6% - Endocrine managing, appreciate recs Essential HTN: No previous Hx of HTN, not on meds at home. - Started on carvedilol here, 12.5 mg BID currently Hx of COVID-19: appears he had this in early May s/p antibody infusion. - no symptoms currently Hep C: received with transplant - continue sofosbuvir-velpatasvir CAD: continue plavix and statin NORBERTO: CPAP home machine Obesity: Body mass index is 34.81 kg/m . DVT prophylaxis: SubQ Heparin Disposition: Inpatient for work-up/management of encephalopathy. Possible dispo to inpatient rehab,depending on bed availability. Code Status: FULL CODE INTERVAL HISTORY/SUBJECTIVE No acute events overnight. Patient states abdominal pain much better today. No dyspnea, chest pain,is eating well. OBJECTIVE Vitals: [range] current Temp: [98 F (36.7 C)-98.3 F (36.8 C)] 98.3 F (36.8 C) Pulse (Heart Rate): [61-83] 71 Resp Rate: [13-18] 18 BP: (115-161)/(56-76) 115/64 O2 Sat (%): [95 %-99 %] 97 % Weight: [110 kg (242 lb 9.6 oz)] 110 kg (242 lb 9.6 oz) O2 Device: room air (06/18/21 0313) Flow (L/min): 3 (06/17/21 1240) Intake/Output last 3 shifts: I/O last 3 completed shifts: In: 690 [P.O.:690] Out: 925 [Urine:925] Gen: Alert, no acute distress, pleasant, appears comfortable sitting up in bed ENT: EOMI, moist oral mucosa Resp: clear to auscultation bilaterally, non-labored breathing Cardio: RRR, normal S1, S2 GI: soft, non-tender to palpation, BS+ Extremities: Trace lower extremity edema Neuro: No focal deficits Psych: Ox3, appropriate affect and cognition DATA REVIEW WBC/Hgb/Hct/Plts: 10.15/11.1/35.1/151 (06/19 643) Na/K+/Phos/Mg/Ca: 133/5.3/--/1.7/10.2 (06/19 643) Bun/Creat/Cl/CO2/Glucose: 43/3.10/108/17/299 (06/19 643) Body mass index is 34.81 kg/m . Signed, Darren George MD * BOBBI Friend - 06/18/2021 9:22 AM EDT I saw Андрей Nickerson at the [facility] on 06/18/2021. Subjective: Seen at bedside; No overnight symptoms. States that he is planning on walking in the hallway today. Physical Examination: Temp: [98 F (36.7 C)-98.2 F (36.8 C)] 98.1 F (36.7 C) Pulse (Heart Rate): [61-83] 72 Resp Rate: [13-18] 16 BP: (115-161)/(56-76) 139/72 O2 Sat (%): [95 %-99 %] 97 % Weight: [110 kg (242 lb 9.6 oz)] 110 kg (242 lb 9.6 oz) I/O last 3 completed shifts: In: 690 [P.O.:690] Out: 925 [Urine:925] No intake/output data recorded. BP 139/72 (BP Location: Right arm, BP Position: Lying) Pulse 72 Temp 98.1 F (36.7 C) (Oral) Resp 16 Ht 1.778 m (5' 10) Wt 110 kg (242 lb 9.6 oz) SpO2 97% BMI 34.81 kg/m Smoking Status Current Some Day Smoker Constitutional: Well developed, well nourished, in no physical distress. HEENT: PERRL, no scleral icterus, moist pharynx Neck: Supple, no JVD, no carotid bruits Chest: Clear to auscultation bilaterally, no labored breathing, no W/R/R Cardiovascular: S1 & S2 with regular rhythm and normal rate, no uremic rub Abdominal: soft, NTTTP, ND, NABS; dressing noted; RLQ incision healing well Extremities: No edema, no cyanosis or clubbing, equal distal pulses; AVF in L forearm Neurological: AA/Ox3, moves all four extremities Skin: No rashes or bruises : No CVA tenderness to palpation Relevent Data: atorvastatin 40 mg Oral Daily carveDILOL 12.5 mg Oral Q12H clopidogrel 75 mg Oral Daily sofosbuvir-velpatasvir 1 tablet Oral Daily everolimus 2 mg Oral Q12HNS insulin glargine injection 40 Units Subcutaneous QHS insulin lispro Subcutaneous 4x daily w/meals, HS mycophenolate mofetil 500 mg Oral Q12HNS prednisoLONE acetate 1 drop Both Eyes BID senna 8.6 mg Oral Daily sulfamethoxazole-trimethoprim 1 tablet Oral Q2 days Tamsulosin HCl 0.4 mg Oral Daily valGANciclovir 450 mg Oral Q48H Lab Results Component Value Date WBC 10.15 (H) 06/18/2021 HGB 11.1 (L) 06/18/2021 HCT 35.1 (L) 06/18/2021 PLATELET 151 06/18/2021 MCV 97.8 (H) 06/18/2021 Lab Results Component Value Date SODIUM 133 (L) 06/18/2021 POTASSIUM 5.3 (H) 06/18/2021 CHLORIDE 108 06/18/2021 CO2 17 (L) 06/18/2021 BUN 43 (H) 06/18/2021 CREATSERUM 3.10 (H) 06/18/2021 GLUCOSE 299 (H) 06/18/2021 Lab Results Component Value Date CALCIUM 10.2 06/18/2021 PHOSPHORUS 2.3 06/12/2021 Lab Results Component Value Date CREATSERUM 3.10 (H) 06/18/2021 CREATSERUM 2.78 (H) 06/17/2021 CREATSERUM 2.62 (H) 06/14/2021 CREATSERUM 3.10 06/09/2021 CREATSERUM 3.44 06/06/2021 CREATSERUM 2.7 06/02/2021 Lab Results Component Value Date SPGRVTYUR 1.026 06/14/2021 GLUCOSEURINE >=1000 mg/dL (A) 06/14/2021 BILIRUBINURI NEGATIVE 11/06/2006 KETONESURINE Negative 06/14/2021 BLOODURINE Negative 06/14/2021 NITRITESURIN Negative 06/14/2021 LEUKOCESTUR Negative 06/14/2021 WBCURINE 0-5 06/14/2021 RBCURINE 0-2 06/14/2021 BACTERIAURIN ABSENT 06/14/2021 Assessment/Plan: In summary, Mr. Nickerosn is a 60 yr old donor transplant recipient from 03/27/2021. He apparently had altered mentation leading to this admission but he seems to be at baseline function now. He also did not have any trouble ambulating prior to the transplant but has become significantly weaker since. Still using a walker at home. 1. Immunosuppression: On everolimus since last night and will check a trough level tomorrow (ordered). Continue Cellcept 500 mg BID. 2. Kidney transplant function: Worsening creatinine and declining UOP. His baseline renal biopsy showed Moderate acute tubular necrosis (ATN); numerous subcapsular obsolescent glomeruli, consistent with nephrosclerosis. Please discontinue IVF today and order furosemide 80 mg IV this morning and arepeat dose at 4 pm. 3. Hypertension: BP seems to be well controlled on carvedilol and tamsulocin. Will follow Leon Skinner MD Attending Transplant Cafe Lead * BOBBI Friend - 06/17/2021 4:58 PM EDT I saw Андрей Nickerson at the [facility] on 06/17/2021. Subjective: Seen at bedside; No overnight symptoms. Back from OR after PD catheter removal. Physical Examination: Temp: [97.8 F (36.6 C)-98.2 F (36.8 C)] 98 F (36.7 C) Pulse (Heart Rate): [61-82] 66 Resp Rate: [13-18] 14 BP: (115-151)/(56-76) 151/76 O2 Sat (%): [95 %-99 %] 99 % I/O last 3 completed shifts: In: 670 [P.O.:670] Out: 300 [Urine:300] I/O this shift: In: 60 [P.O.:60] Out: - BP 151/76 (BP Location: Right arm, BP Position: Lying) Pulse 66 Temp 98 F (36.7 C) (Oral) Resp 14 Ht 1.778 m (5' 10) Wt 110.9 kg (244 lb 9.6 oz) SpO2 99% BMI 35.10 kg/m Smoking Status Current Some Day Smoker Constitutional: Well developed, well nourished, in no physical distress. HEENT: PERRL, no scleral icterus, moist pharynx Neck: Supple, no JVD, no carotid bruits Chest: Clear to auscultation bilaterally, no labored breathing, no W/R/R Cardiovascular: S1 & S2 with regular rhythm and normal rate, no uremic rub Abdominal: soft, NTTTP, ND, NABS; dressing noted; RLQ incision healing well Extremities: No edema, no cyanosis or clubbing, equal distal pulses; AVF in L forearm Neurological: AA/Ox3, moves all four extremities Skin: No rashes or bruises : No CVA tenderness to palpation Relevent Data: atorvastatin 40 mg Oral Daily carveDILOL 12.5 mg Oral Q12H clopidogrel 75 mg Oral Daily sofosbuvir-velpatasvir 1 tablet Oral Daily insulin glargine injection 40 Units Subcutaneous QHS insulin lispro Subcutaneous 4x daily w/meals, HS mycophenolate mofetil 500 mg Oral Q12HNS prednisoLONE acetate 1 drop Both Eyes BID senna 8.6 mg Oral Daily sulfamethoxazole-trimethoprim 1 tablet Oral Q2 days tacrolimus 2 mg Oral Q12H Tamsulosin HCl 0.4 mg Oral Daily valGANciclovir 450 mg Oral Q48H Lab Results Component Value Date WBC 8.27 06/17/2021 HGB 11.2 (L) 06/17/2021 HCT 35.4 (L) 06/17/2021 PLATELET 164 06/17/2021 MCV 98.1 (H) 06/17/2021 Lab Results Component Value Date SODIUM 136 06/17/2021 POTASSIUM 5.1 (H) 06/17/2021 CHLORIDE 112 (H) 06/17/2021 CO2 18 (L) 06/17/2021 BUN 35 (H) 06/17/2021 CREATSERUM 2.78 (H) 06/17/2021 GLUCOSE 241 (H) 06/17/2021 Lab Results Component Value Date CALCIUM 10.2 06/17/2021 PHOSPHORUS 2.3 06/12/2021 Lab Results Component Value Date CREATSERUM 2.78 (H) 06/17/2021 CREATSERUM 2.62 (H) 06/14/2021 CREATSERUM 2.41 (H) 06/12/2021 CREATSERUM 3.10 06/09/2021 CREATSERUM 3.44 06/06/2021 CREATSERUM 2.7 06/02/2021 Lab Results Component Value Date SPGRVTYUR 1.026 06/14/2021 GLUCOSEURINE >=1000 mg/dL (A) 06/14/2021 BILIRUBINURI NEGATIVE 11/06/2006 KETONESURINE Negative 06/14/2021 BLOODURINE Negative 06/14/2021 NITRITESURIN Negative 06/14/2021 LEUKOCESTUR Negative 06/14/2021 WBCURINE 0-5 06/14/2021 RBCURINE 0-2 06/14/2021 BACTERIAURIN ABSENT 06/14/2021 Assessment/Plan: In summary, Mr. Nickerson is a 60 yr old donor transplant recipient from 03/27/2021. He apparently had altered mentation leading to this admission but he seems to be at baseline function now. He also did not have any trouble ambulating prior to the transplant but has become significantly weaker since. Still using a walker at home. 1. Immunosuppression: Tacro level 9.6 today. Given the increasing creatinine and slowing urine output, I decided to take him off of tacrolimus for good and switch to everolimus 2 mg BID. Check a trough level on Sunday and then Sunday. I placed orders already. Continue Cellcept at 500 mg BID. 2. Kidney transplant function: Stable creatinine but high baseline creatinine because of donor derived factors. His baseline renal biopsy showed Moderate acute tubular necrosis (ATN); numerous subcapsular obsolescent glomeruli, consistent with nephrosclerosis. 3. Hypertension: BP seems to be well controlled on carvedilol and tamsulocin. Will follow Leon Skinner MD Attending Transplant Cafe Lead * Awa Larry, PT - 06/17/2021 1:23 PM EDT Physical Therapy Attempt Note 06/17/2021 PT Therapy Completed: Attempted Attempted Reason: Patient is unavailable due to test/procedure (per Chan RN pt currently off floors/p PACU drain removal) Will re-attempt as appropriate and as schedule permits. Ghazala Larry, PT, DPT [id number] 06/17/2021 * Peter Hickey OT - 06/17/2021 12:49 PM EDT Occupational Therapy Attempt Note 06/17/2021 OT Therapy Completed: Attempted Attempted Reason: Patient is unavailable due to test/procedure Peter Hickey OT Time In: 1248 Time Out: 1248 Total Visit Time: 0 minutes Total Treatment Time: 0 minutes * MARISOL Bustillo - 06/17/2021 11:33 AM EDT Placement Plan Expected Discharge Date: 06/18/2021 Referred Level of Care: IPR v SNF Barriers: facility acceptance/pt-pt's family choice/pre- cert/transportation/medical stability Current Referrals and Status 1. [facility], no bed 2. [facility]-available 3. [facility]-unavailable, too complex 4. [facility] ([phone])-unavailable 5. [facility]- [facility] ([phone])-unavailable 6. SNF-12 referrals with no response; 2 declined-no available options Received responses back from IPR referrals; one accepting facility. SW attempted to contact pt's spouse, Nalini & voice mail is full. Attempted to meet with pt at bedside to provide update & ptout of room at medical procedure. No accepting SNF options; extended time to obtain response. SW to re-attempt to provide update to pt/pt's spouse regarding IPR option. Pre-cert needed, once facility chosen. Fide HANCOCK [address] [employer] Addendum 06/17 @ 4455: EARLE spoke with pt's spouse, Fani & provided her the available IPR[facility]. She requests to review the facility with her spouse. EARLE emailed IPR choice list to pt's spouse: [email or web address]. Alternate SNF option was also discussed for patient to [facility] in [place] area near [facility] since outlying SNFs in pt's area did not respond back to referrals. Discussed that pre-cert is needed for facility placement. EARLE requested response be provided this afternoon or tomorrow to W/E SW. Fide HANCOCK [address] [facility] [employer] EARLE provided handoff to weekend SW for continuity of care. For further assistance over the weekend, please contact EARLE as needed (8:00am - 4:30pm): [facility]: CCM: [phone] / [employer]: [phone] Gr[facility]: CCM: [phone] / [employer]: [phone] Julian: CCM : [phone] / [employer]: [phone] Martin/MICU/PCU Tian: CCM: [phone] / [employer]: [phone] * Darren George MD - 06/17/2021 11:22 AM EDT [facility] Daily Progress Note Patient: Андрей Nickerson, 1960, [id number] Physician: Darren George MD, Attending Physician, Pager #[phone], Gen Med 6 service Length of stay: 6 days. IMPRESSION/PLAN Андрей Nickerson is a 60 y.o. male with history of renal transplant (03/2021). CAD, HTN, Type 1DM, hx of TIA, COVID-19, recently DCed home from SNF but reported increased confusion and weakness,leading to repeat hospitalization. Encephalopathy: Noticed while he was at SNF recently but get worse according to his . Unclear etiology, no UTI, no PNA. TSH, B12 wnl. CT head outside reported no acute abnormality. Brain MRI no acute abnormality, no new stroke. - Neuro evaluated him, thought could be related to post COVID confusion, versus effect from the anesthesia after recent surgery, no need for LP. -referral for neuro cognitive clinic for official evaluation (ordered) S/p renal transplant 03/22 - continue mycophenolate 500mg q12 and tacrolimus decreased dose of 2mg q12, given elevated tacro level. - bactrim for ppx, prednisone - valcyte q48 hours - kidney transplant team on board - Peritoneal dialysis catheter to be removed today Type 1 DM: - blood sugar not controlled - he used to be on Insulin pump - A1c 5.6% - Endocrine following, appreciate recs - Decreased glargine from 40 units at bedtime to 20 units at bedtime while NPO for surgery Essential HTN: No previous Hx of HTN, not on meds at home. - Started on carvedilol here, 12.5 mg BID currently Hx of COVID-19: appears he had this in early May s/p antibody infusion. - no symptoms currently Hep C: received with transplant - continue sofosbuvir-velpatasvir CAD: continue plavix and statin NORBERTO: CPAP home machine Obesity: Body mass index is 35.1 kg/m . DVT prophylaxis: Holding for PD catheter removal. Disposition: Inpatient for work-up/management of encephalopathy. Possible dispo to inpatient rehab,depending on bed availability. Code Status: FULL CODE INTERVAL HISTORY/SUBJECTIVE No acute events overnight. Patient continues to feel well, ready for his PD catheter removal today. OBJECTIVE Vitals: [range] current Temp: [97.8 F (36.6 C)-98.6 F (37 C)] 97.9 F (36.6 C) Pulse (Heart Rate): [66-82] 66 Resp Rate: [16-18] 16 BP: (114-129)/(59-68) 115/60 O2 Sat (%): [97 %-99 %] 99 % Weight: [110.9 kg (244 lb 9.6 oz)] 110.9 kg (244 lb 9.6 oz) O2 Device: room air (06/17/21 1119) Intake/Output last 3 shifts: I/O last 3 completed shifts: In: 1480 [P.O.:1480] Out: 300 [Urine:300] Gen: Alert, no acute distress, pleasant, appears comfortable lying in bed ENT: EOMI, moist oral mucosa Resp: clear to auscultation bilaterally, non-labored breathing Cardio: RRR, normal S1, S2 GI: soft, non-tender to palpation, BS+ Extremities: Trace lower extremity edema Neuro: No focal deficits Psych: Ox3, appropriate affect and cognition DATA REVIEW WBC/Hgb/Hct/Plts: 8.27/11.2/35.4/164 (06/17 622) Na/K+/Phos/Mg/Ca: 136/5.1/--/1.6/10.2 (06/17 622) Bun/Creat/Cl/CO2/Glucose: 35/2.78/112/18/198 (06/17 622-06/17 657) Ptt/Pt/Inr: --/13.2/1.0 (06/17 622) Body mass index is 35.1 kg/m . Signed, Darren George MD * Tiffanie Brown MD - 06/17/2021 11:06 AM EDT Surgery Progress Note Last 24 Hours No acute events overnight. Vitals Temp: [97.8 F (36.6 C)-98.6 F (37 C)] 97.9 F (36.6 C) Pulse (Heart Rate): [67-82] 79 Resp Rate: [16-18] 16 BP: (114-141)/(59-71) 115/60 O2 Sat (%): [97 %-100 %] 98 % Weight: [110.9 kg (244 lb 9.6 oz)] 110.9 kg (244 lb 9.6 oz) Oxygen Therapy O2 Sat (%): 98 % O2 Device: room air Fluid Management (24hrs): Intake/Output last 3 shifts: I/O last 3 completed shifts: In: 1480 [P.O.:1480] Out: 300 [Urine:300] Physical Exam GEN: NAD, A&O HEENT: EOMI CV: HDS, regular rate PULM: No respiratory distress, equal chest rise B/L ABD: Non-distended, soft, non-tender to palpation. EXT: Gross motor and sensory intact Laboratory Studies and Imaging Recent Labs 06/15/21 0556 06/17/21 0623 WBC -- 8.27 HGB -- 11.2* PLATELET 153 164 PT -- 13.2 INR -- 1.0 Recent Labs 06/17/21 0623 SODIUM 136 POTASSIUM 5.1* CHLORIDE 112* CO2 18* BUN 35* CREATSERUM 2.78* CALCIUM 10.2 MAGNESIUM 1.6 No results for input(s): AST, ALT, BILITOTAL, BILIDIRECT, TOTALPROTEIN, ALB, ALBUMIN, ALBUMINALB, ALBUMINFLD, ALBUMINCSF, ALBUMINSERUM, ALKPHOS in the last 72 hours. Assessment 60 y.o. male with hx of renal transplant (03/2021), CAD, HTN, DMI, presenting for AMS. We are beingconsulted for PD catheter removal. Plan OK for OR today for PD catheter removal. Tiffanie Brown MD Department of General Surgery Pager: [phone] * MARISOL Bustillo - 06/16/2021 2:59 PM EDT Reason for consult: Readmission Assessment Consulted by: self-directed chart review (pt with recent history of transplant) Assessment: SW completing readmission assessment as pt has received a recent transplant and readmitted to the hospital within one year. Met with patient at bedside today. He is a 60 year old Male who received a Kidney transplant on 03/27/21. He is alert, oriented x 3 tpday. Prior to admission he was living with his parents for one week after recent discharge from [facility]. Before transplant, patient resided with his spouse in a split level house. He does not receive outside services and does use durable medical equipment: w/w. Pt also uses CPAP/insulin pump. He is not independent with activities of daily living, including driving since transplant. Reviewed/updated demographicsheet. Pt readmitted due to difficulties with encephalopathy; recent history of COVID- 19 (05/2021). Pt withhistory of DM1. Information for assessment today was obtained from chart review; pt/pt's spouse. Patient denies history of mental health diagnoses, including depression, anxiety, and PTSD. Patientreports coping skills of being outdoors, including fishing and attending flea markets. SW reviewed mental health symptoms and patient identifies the following difficulties: anxiety/nervousness-regarding PD catheter removal; concentration-pt notes improvement with his medications being adjusted; fatigue/energy loss-pt notes improvement since hospital admission. Pt states he was having difficulty while at his parents' home with knowing how many of his IS medications to take. He states his father organized the medications in a pill box but then pt became confused regarding how many to take mornin g/evenings as they had similar markings. Discussed possible HHC to assist with nursing to provide education/teaching be arranged after rehabilitation (IPR/SNF) is completed & additional teaching be provided to pt's family (spouse/parents), pending discharge plan; pt agreeable. Patient denies use of alcohol. Patient denies use of tobacco products. Patient denies use of non-prescribed substances. Patient continues to have [employer] insurance. Patient denies financial concerns, reports being able tomeet monthly income needs and current medications. Currently receives SSDI & pt's spouse's employment for income. Pt inquired about his Medicaid status, stating he thought the secondary insurancewas approved. SW notified [facility] Financial Counselor. Patient's transportation needs to be determined closer to discharge. Received update from [facility] financial counselor & pt has no active Medicaid case request in the system with his [facility]. Pt does not have Medicare reflected either. Plan: 1 SW provided emotional support & reflective listening. 2 SW assessed for additional needs; additional teaching indicated, pending discharge plan for pt/pt's family regarding medication organization & administration at home 3. Contacted [facility] Financial counselor inquiring about Medcaid/Medicare status; SW to provide update to pt/pt's spouse regarding Medicare/Medicaid status. 3 SW to continue to follow as needed & for discharge planning: IPR v SNF anticipated. Fide DAMON-S [address] [place] [employer] * MARISOL Bustillo - 06/16/2021 2:01 PM EDT Placement Plan Expected Discharge Date: 06/18/2021 Referred Level of Care: IPR v SNF Barriers: faciltiy acceptance/patient choice/pre-cert/transportation/medical stability Current Referrals and Status 1. [facility], no bed 2. [facility]-available 3. IPR-[facility]-unavailable, too complex 4. IPR-[facility] ([phone])-sent 5. IPR- [facility] ([phone])-sent 6. SNF-referrals pending-no available options [facility] confirmed ability to accept patient at discharge, pending pt able to provide his home [employer] & pre-cert. Voice message left for pt's spouse for discharge planning & requested call back; await response. SW met with patient to discuss discharge update. Pt is alert, oriented x3 (person/place/month/date/year) today. Pt also requests IPR referrals in his geographic area, if in-network with his insurance. IPR referrals sent to additional facilities in pt's geographic area. Spoke with Katherine @ [facility] & confirmed referral received; await facility response. Spoke with Callie @ [facility] & she will contact admissions ([facility]) to review referral; await facility response. SW will continue to follow as needed. Fide DAMON-S [address] [place] [address] [employer] * Darren George MD - 06/16/2021 1:05 PM EDT [facility] Daily Progress Note Patient: Андрей Nickerson, 1960, [id number] Physician: Darren George MD, Attending Physician, Pager #[phone], Gen Med 6 service Length of stay: 5 days. IMPRESSION/PLAN Андрей Nickerson is a 60 y.o. male with history of renal transplant (03/2021). CAD, HTN, Type 1DM, hx of TIA, COVID-19, recently DCed home from SNF but reported increased confusion and weakness,leading to repeat hospitalization. Encephalopathy: Noticed while he was at SNF recently but get worse according to his . Unclear etiology, no UTI, no PNA. TSH, B12 wnl. CT head outside reported no acute abnormality. Brain MRI no acute abnormality, no new stroke. - Neuro evaluated him, thought could be related to post COVID confusion, versus effect from the anesthesia after recent surgery, no need for LP. -referral for neuro cognitive clinic for official evaluation ( ordered) S/p renal transplant 03/22 - continue mycophenolate 500mg q12 and tacrolimus decreased dose of 2mg q12, given elevated tacro level. - bactrim for ppx, prednisone - valcyte q48 hours - kidney transplant team on board - Peritoneal dialysis catheter need to be removed on 06/17 Type 1 DM: - blood sugar not controlled - he used to be on Insulin pump - A1c 5.6% - Endocrine following, appreciate recs - Decreased glargine from 40 units at bedtime to 20 units at bedtime in anticipation of NPO for surgery tomorrow Essential HTN: No previous Hx of HTN, not on meds at home. - Started on carvedilol here, 12.5 mg BID currently Hx of COVID-19: appears he had this in early May s/p antibody infusion. - no symptoms currently Hep C: received with transplant - continue sofosbuvir-velpatasvir CAD: continue plavix and statin NORBERTO: CPAP home machine Obesity: Body mass index is 35.21 kg/m . DVT prophylaxis: Holding for PD catheter removal tomorrow. Disposition: Inpatient for work-up/managmeent of Code Status: FULL CODE INTERVAL HISTORY/SUBJECTIVE No acute events overnight. Patient in good spirits today, no particular complaints/concerns. Main issue is hip pain, which is chronic. No N/V, abdominal pain. Would like to go to inpatient rehab. OBJECTIVE Vitals: [range] current Temp: [97.5 F (36.4 C)-98.4 F (36.9 C)] 98.4 F (36.9 C) Pulse (Heart Rate): [67-105] 67 Resp Rate: [16-18] 16 BP: (132-146)/(60-75) 141/71 O2 Sat (%): [95 %-100 %] 100 % Weight: [111.3 kg (245 lb 6.4 oz)] 111.3 kg (245 lb 6.4 oz) O2 Device: room air (06/16/21 1118) Intake/Output last 3 shifts: I/O last 3 completed shifts: In: 550 [P.O.:550] Out: 0 Gen: Alert, no acute distress, pleasant, appears comfortable sitting in chair ENT: EOMI, moist oral mucosa Resp: clear to auscultation bilaterally, non-labored breathing Cardio: RRR, normal S1, S2 GI: soft, non-tender to palpation, BS+ Extremities: Trace lower extremity edema Neuro: No focal deficits Psych: Ox3, appropriate affect and cognition DATA REVIEW Bun/Creat/Cl/CO2/Glucose: --/--/--/--/186 (06/16 1121) Body mass index is 35.21 kg/m . Signed, Darren George MD * BOBBI Friend - 06/16/2021 12:33 PM EDT I saw Андрей Nickerson at the [facility] on 06/16/2021. Subjective: Seen at bedside; No overnight symptoms. No lab results in 2 days. Physical Examination: Temp: [97.5 F (36.4 C)-98.4 F (36.9 C)] 98.4 F (36.9 C) Pulse (Heart Rate): [67-105] 67 Resp Rate: [16-18] 16 BP: (132-146)/(60-75) 141/71 O2 Sat (%): [95 %-100 %] 100 % Weight: [111.3 kg (245 lb 6.4 oz)] 111.3 kg (245 lb 6.4 oz) I/O last 3 completed shifts: In: 550 [P.O.:550] Out: 0 I/O this shift: In: 510 [P.O.:510] Out: - BP 141/71 (BP Location: Right arm, BP Position: Sitting) Pulse 67 Temp 98.4 F (36.9 C) (Oral) Resp 16 Ht 1.778 m (5' 10) Wt 111.3 kg (245 lb 6.4 oz) SpO2 100% BMI 35.21 kg/m Smoking Status Current Some Day Smoker Constitutional: Well developed, well nourished, in no physical distress. HEENT: PERRL, no scleral icterus, moist pharynx Neck: Supple, no JVD, no carotid bruits Chest: Clear to auscultation bilaterally, no labored breathing, no W/R/R Cardiovascular: S1 & S2 with regular rhythm and normal rate, no uremic rub Abdominal: soft, NTTTP, ND, NABS; PD catheter noted; RLQ incision healing well Extremities: No edema, no cyanosis or clubbing, equal distal pulses; AVF in L forearm Neurological: AA/Ox3, moves all four extremities Skin: No rashes or bruises : No CVA tenderness to palpation Relevent Data: atorvastatin 40 mg Oral Daily carveDILOL 12.5 mg Oral Q12H clopidogrel 75 mg Oral Daily sofosbuvir-velpatasvir 1 tablet Oral Daily heparin 5,000 Units Subcutaneous Q8H insulin glargine injection 40 Units Subcutaneous QHS insulin lispro Subcutaneous 4x daily w/meals, HS mycophenolate mofetil 500 mg Oral Q12HNS prednisoLONE acetate 1 drop Both Eyes BID senna 8.6 mg Oral Daily sulfamethoxazole-trimethoprim 1 tablet Oral Q2 days tacrolimus 2 mg Oral Q12H Tamsulosin HCl 0.4 mg Oral Daily valGANciclovir 450 mg Oral Q48H Lab Results Component Value Date WBC 6.51 06/14/2021 HGB 11.6 (L) 06/14/2021 HCT 36.1 (L) 06/14/2021 PLATELET 153 06/15/2021 MCV 95.5 (H) 06/14/2021 Lab Results Component Value Date SODIUM 138 06/14/2021 POTASSIUM 5.0 06/14/2021 CHLORIDE 112 (H) 06/14/2021 CO2 19 (L) 06/14/2021 BUN 28 (H) 06/14/2021 CREATSERUM 2.62 (H) 06/14/2021 GLUCOSE 186 (H) 06/16/2021 Lab Results Component Value Date CALCIUM 10.7 (H) 06/12/2021 PHOSPHORUS 2.3 06/12/2021 Lab Results Component Value Date CREATSERUM 2.62 (H) 06/14/2021 CREATSERUM 2.41 (H) 06/12/2021 CREATSERUM 3.10 06/09/2021 CREATSERUM 3.44 06/06/2021 CREATSERUM 2.7 06/02/2021 Lab Results Component Value Date SPGRVTYUR 1.026 06/14/2021 GLUCOSEURINE >=1000 mg/dL (A) 06/14/2021 BILIRUBINURI NEGATIVE 11/06/2006 KETONESURINE Negative 06/14/2021 BLOODURINE Negative 06/14/2021 NITRITESURIN Negative 06/14/2021 LEUKOCESTUR Negative 06/14/2021 WBCURINE 0-5 06/14/2021 RBCURINE 0-2 06/14/2021 BACTERIAURIN ABSENT 06/14/2021 Assessment/Plan: In summary, Mr. Nickerson is a 60 yr old donor transplant recipient from 03/27/2021. He apparently had altered mentation leading to this admission but he seems to be at baseline function now. He also did not have any trouble ambulating prior to the transplant but has become significantly weaker since. Still using a walker at home. 1. Immunosuppression: Continue tacrolimus at reduced dose of 2 mg BID and continue Cellcept at 500 mg BID. Tacro level 9.5 ng/ml this morning. Check another tacro level on Sunday morning. 2. Kidney transplant function: Stable creatinine but high baseline creatinine because of donor derived factors. His baseline renal biopsy showed Moderate acute tubular necrosis (ATN); numerous subcapsular obsolescent glomeruli, consistent with nephrosclerosis. 3. Hypertension: BP seems to be well controlled on carvedilol and tamsulocin. 4. Bone and mineral disease: Mild hypercalcemia but iPTH was 116 pg/ml recently. PD catheter removal scheduled for tomorrow morning. 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 Hospital Plan: Continue current regimen Basal: Insulin glargine: 40 units at bedtime Prandial: Insulin lispro: 1 unit per 4 gram carbs qachs & prn Correction: Insulin lispro: 1 unit(s) per every 25 mg/dL above 150 mg/dL qachs 2. Discharge Plan: Please call on day of d/c for definitive recs. Please see [employer],under IM Consult Serv Endocrine/Diabetes - Team 2 Diab Consults for provider on day of discharge. Tentative discharge plan: (Please use the Diabetes Discharge Order Set to order medications and supplies) Primary team to please provide the following prescriptions: - Lantus (insulin glargine) insulin PENS with needles, dose TBD - Humalog (Lispro) insulin PENS with needles - mealtime insulin (QAC): dose TBD units with a large meal or TBD units with a small meal - correction insulin (ACHS): give in addition to fixed meal dosing for BG >150: Correction: TBD - insulin PEN NEEDLES, enough for 5 needles per day - generic glucometer testing strips and lancets, enough for 4 tests per day - Glucagon (pen or nasal spray) - Urine ketone strips - Goal in the AM of 80-130 and the rest of the day less than 180. If blood sugar greater than 250s or less than 70 consistently, call your doctor, as medications will need adjusting. 3. Follow up needed: [facility], , for HFU in 2-4 weeks with INVESTMENT COUNSELOR 4. Education: Discussed daily plan 5. Will review glucoses and discuss with Dr Mohan Thank you for allowing us to participate in your patient's care. If you have questions please checkon [employer], under IM Consult Serv, Endocrine/Diabetes, and call the person listed for Team 2 as directed CC: Hyperglycemia History of Present Illness: Андрей Nickerson is a 60 y.o. year old male who is seen at bedside sitting up in chair. Cr 2.62but high CR baseline based on donor. He states he doesn't like the food. Eating 18-82 g CHO/ meal. Current Diet Orders Procedures DIET CARB CONTROLLED Standing Status: Standing Number of Occurrences: 1 Current Regimen: Basal: Insulin glargine: 40 units at bedtime Prandial: Insulin lispro: 1 unit per 4 gram carbs qachs & prn Correction: Insulin lispro: 1 unit(s) per every 25 mg/dL above 150 mg/dL qachs Daily Glucose Review: Date Daily glucose review TDD Basal Prandial/ Correction 06/13/2021 180, 294, 355, 236 58 40 18 06/14/21 166, 289, 245, 251 66 40 26 06/15/21 147, 257, 225, 150 76 40 36 06/16/21 140, 186 Review of Systems Diabetes: Negative for symptoms of hypoglycemia Physical Exam Constitutional: fair appearing male in no acute distress. Pulmonary/Chest: Respirations even and unlabored. Musculoskeletal: No acute abnormalities noted Neurological: Alert and interactive Psych: Cooperative Background History Андрей Nickerson is a 60 y.o. male with history CAD, HTN, hx of DM-1, hx of TIA, of renal tx 03/2021, DCed to SNF in Apr 2021 , found he has COVID-19 +ve in May s/p antibody infusion at that time, recently DCed home from SNF to home (with his parents). Admitted with increased confusion and weakness. He reports he was only home overnight before coming back to the hospital. H/o insulin pump buthas not been on in for several months as he has been at a SNF. Diabetes History: Type of Diabetes: Type 1 Diabetes Mellitus (T1D) Date of diagnosis: Age 10 Outpatient physician: Dr. Seth Low, endocrine Diabetes Complications: retinopathy and nephropathy s/p renal transplant Date of most recent dilated eye exam: 04/2021 DKA occurrences: 0 Home blood glucoses: He is checking his blood sugars using Dexcom CGM, however has not been wearingsince admission to SNF. ? Fastin-100 ? Hypoglycemia: Denies Home diabetes medications: Previously on T-slim/dexcom pump ? Basal: 1.5 units/hour ? Prandial: 1 unit per 4 grams ? Correction: 1 unit per 25 mg/dl above 150 mg/dl Cholesterol Medication: atorvastatin Home diet/meal plan: Eating less carbs for weight loss A1c this admission: Lab Results Component Value Date HGBA1C 5.9 (H) 06/13/2021 HGBA1C 8.5 (H) 11/13/2011 HGBA1C 8.2 (H) 06/04/2007 Blood pressure 141/71, pulse 67, temperature 98.4 F (36.9 C), temperature source Oral, resp. rate 16, height 1.778 m (5' 10), weight 111.3 kg (245 lb 6.4 oz), SpO2 100 %. Most recent entered Weight: 111.3 kg (245 lb 6.4 oz) Body mass index is 35.21 kg/m . Bun/Creat/Cl/CO2/Glucose: --/--/--/--/186 (06/16 112) Lab Results Component Value Date CHOLESTEROL 90 06/02/2021 TRIG 90 06/02/2021 HDL 38.0 06/02/2021 LDLCALC 34 06/02/2021 CREATININE, MG/DL, URINE Date Value Ref Range Status 11/13/2011 98.27 mg/dL Final Urine Creatinine Date Value Ref Range Status 04/14/2021 93.19 mg/dL Final MICROALBUMIN URINE RANDOM Date Value Ref Range Status 11/13/2011 417.0 ug/mL Final MICROALBUMIN/CREATININE RATIO Date Value Ref Range Status 11/13/2011 424.3 (H) 0 - 16 ug malb/mg creat Final Lab Results Component Value Date ALT 14 06/12/2021 ALT 20 06/09/2021 Cardiac echo: EF = Results for orders placed during the hospital encounter of 08/11/20 ECHOCARDIOGRAM 08/11/2020 (Final) Interpretation Summary Left ventricle demonstrates remodeling, with increased septal greater than posterior wall thickness. Normal LVEF >70%. Mild LV outflow acceleration without significant resting gradient. Diastolic function is abnormal and consistent with impaired relaxation (grade I). Probably normal left atrial pressure. Right ventricular size and function are normal. No hemodynamically significant valve disease apparent. No prior for comparison. * Mirna Dye - 06/16/2021 10:37 AM EDT Acute Occupational Therapy Treatment Prior to Admission AM-PAC Score: PRIOR LEVEL AM-PAC Activity Raw Score: 24 PRIOR LEVEL AM-PAC Mobility Raw Score: 24 Current AM-PAC score(s): CURRENT AM-PAC Activity Raw Score: 19 Based on the above AM-PAC score(s), and OT clinical judgment, discharge destination recommendation is: Inpatient Rehab Facility Discharge Barriers: Patient needs assistance with functional mobility, Patient needs assistance with ADLs, Patient needs assistance with IADLs (see note below) Supporting Factors (would benefit from skilled therapy services): Patient status is anticipated to be appropriate to tolerate inpatient rehab therapy requirements at time of discharge from acute care, Impaired functional status, Decreased strength, Impaired balance, Decreased endurance, Impaired self-care abilities, Impaired cognitive status Mobility equipment available at home: 2 wheeled walker ADL equipment available at home: shower chair Equipment recommendations for discharge: none Current therapy frequency recommendation(s) in acute: 5 times a week Precautions and Weightbearing Status: OT Existing Precautions/Restrictions: fall Patient Safety Communication Prior to Visit: Nursing Respiratory Status O2 Device: room air Subjective: Pt in bedside chair at start of session, agreeable to therapy. Pain: General Pain Documentation (Adult, OB, Peds) Presence of Pain: complains of pain/discomfort Pain Location: hip, left, hip, right DVPRS (Defense and Veterans Pain Rating Scale) DVPRS: Rest: 0- no pain DVPRS: Activity: 9- severe pain Objective/Observation: Vitals/Vitals Responses to Treatment: Pt reports no dizziness or lightheadedness throughout session. Pt reports increased pain and fatigue following functional mobility; 9/10 RPE Cognition Overall Cognitive Status: Impaired Arousal/Alertness: Appropriate responses to stimuli Orientation Level: Oriented to person, Oriented to time (stated [facility]- self corrected; May 2021; stated . Able identify it is [facility] day with prompt) Following Commands: Follows one step commands without difficulty Safety Judgment: Good awareness of safety precautions Awareness of Errors: Good awareness of errors made Deficits: Fully aware of deficits Attention Span: Attends with cues to redirect Memory: Decreased recall of recent events, Decreased continuous churn buttermaker memory Problem Solving: Assistance required to generate solutions, Assistance required to implement solutions ADL Assessment/Intervention: ADLs: Eating Assistance: Grooming Assistance: Bathing Assistance: UE Dressing Assistance: LE Dressing Assistance: Contact guard assist LE Dressing Location: standing, seated in chair LE Dressing Deficit: Increased time to complete, Activity tolerance LE Dressing Skilled Rationale (Verbal/Tactile/Visual/Demonstration): Facilitate positioning, Cues for increased safety, Compensatory techniques LE Dressing Intervention/Details: Increased verbal cues and education and figure 4 technique and energy conservation techniques. Toilet Assistance: Extremity Assessments: See OT Evaluation flowsheet for Extremity Measurement updates. Balance: Sitting Balance Static Sitting-Level of Assistance: Supervision Dynamic Sitting-Level of Assistance: Supervision Sitting Balance Skilled Intervention/Details: Tolerated sitting EOB and in armed chair with no LOB noted Standing Balance Static Standing-Level of Assistance: Contact guard Dynamic Standing-Level of Assistance: Contact guard Standing-Balance Support: Gait belt, 2 wheeled walker Skilled Rationale: Cues for increased safety Standing Balance Skilled Intervention/Details: increaed verbal cues during standing ADL tasks for to promote upright posture and general safety awareness. Mobility Assessment/Intervention: Transfer Assessment/Intervention: Sit to Stand Transfer Zalma Level: Sit->Stand: contact guard assist Assistive Device: Sit->Stand: 2 wheeled walker Skilled Rationale: Verbal cues, Hand placement, Positioning, Initiation and execution of task Skilled Intervention/Details: Sit->Stand: increased verbal cues for hand positions and sequencing Stand to Sit Transfer Zalma Level: Stand->Sit: contact guard assist Assistive Device: Stand->Sit: 2 wheeled walker Skilled Rationale: Controlled descent for sitting Skilled Intervention/Details: Stand->Sit: increased verbal cues for reach back for eccentric control Functional Mobility: Functional Mobility Zalma Level: Functional Mobility/Gait: contact guard assist Assistive Device: Functional Mobility/Gait: 2 wheeled walker Functional Mobility Distance: Distance needed for common household mobility Functional Mobility Deficits: Activity tolerance, Pain Functional Mobility Skilled Rationale: Cues for increased safety, Energy conservation Pt completed functional mobility task of household distances in preparation for ADL tasks in home environment. Pt required CGA due to decreased activity tolerance and balance. Pt required increased verbal cues for energy conservation techniques and pacing during activity. Outcome Score(s): CURRENT -[facility] Daily Activity Inpatient Short Form Putting on/Taking Off Lower Body Clothin - A Little Assistance Bathin - A Little Assistance Toiletin - A Little Assistance Putting on/Taking Off Upper Body Clothin - A Little Assistance Groomin - A Little Assistance Eatin - No Assistance CURRENT AM-[facility] Activity Raw Score: 19 CURRENT AM-[facility] Activity Functional Limitation/Modifier: 42.80% Currently Impaired in Daily Activity- CK Interventions: Pt engaged in problem solving session on discharge and goals for therapy. Pt reports he does not want to go a SNF at this time due to lower intensity of therapy. Pt would prefer IPR to return to meaningful activities such as fishing with family and volunteering at the [employer]. Assessment & Plan: Андрей demonstrates good progress towards goals this session, but continues to be limited by decreased activity tolerance and increased pain resulting in decreased independence with all ADLs. Ptdemonstrates good progress toward LB dressing goal. Pt continues to present below baseline for all ADLs and functional mobility. Pt would benefit from continue occupational therapy to increase independence with ADLs and promote safe discharge. Patient Instruction/Education this session: Patient Instruction: Role of OT, plan of care, discharge planning Plan for next session: Standing ADLs, energy conservation Acute OT Goals Plan of Care by Peter Hickey OT at 06/16/2021 10:37 AM Version 1 of 1 Problem: OT - Dressing Goal: Lower Body Dressing Description: Pt will complete LE dressing tasks with modified independence for improved ability to complete self-care activities. Outcome: Progressing Toward Goal Problem: OT - Cognition Goal: Cognition Home Maintenance Description: Pt will complete simulated home maintenance task (medication management, finance management, etc.) with supervision to promote safety and success at discharge destination. Outcome: Progressing Toward Goal Problem: OT - Endurance Goal: Endurance Functional Mobilty Around Home Description: Pt will complete distance needed for common household mobility. Outcome: Progressing Toward Goal Problem: OT - Other Goal: Energy Conservation Description: Pt will follow energy conservation techniques appropriately 100% of the time during ADLs and functional mobility to conserve energy and maximize functional performance. Outcome: Progressing Toward Goal OT treatment consisted of ADL retraining and energy conservation/endurance training to work and progress towards above goal(s). Treating Therapist: Mirna Ballard/OT Additional Details: Co-evaluation/co-treatment performed?: No simultaneous treatment performed I used facemask, protective eye shield, and gloves in today's patient interaction. Patient location at end of session: chair Alarms on at end of session: none Needs in reach. Time In: 1037 Time Out: 1101 Total Visit Time: 24 minutes Total Treatment Time: 24 minutes Upon discontinuation of Acute Care Occupational Therapy Services or patient discharge from the hospital this note represents the current Occupational Therapy Discharge Summary. * Starr Londono - 06/15/2021 4:29 PM EDT [facility] is not expected to have any more bed availability to admit patients who have not already been accepted to [facility]. Can follow to see if patient is appropriate when beds become available (likely midnext week). Thank you for the referral, Vanessa Londono,PT [facility] [employer] [phone] * JERRI Pratt/[facility] - 06/15/2021 2:54 PM EDT Hospital Medicine Progress Note Patient: Андрей Nickerson, : 1960, Impression / Plan Андрей Nickerson is a 60 y.o. male with history CAD, HTN, hx of DM-1, hx of TIA, of renal tx 03/2021, DCed to SNF in Apr 2021 , found he has COVID-19 +ve in May s/p antibody infusion at that time, recently DCed home from SNF to home ( with his parents) and few days ago reported increased confusion and weakness, transferred to here for work up and management Encephalopathy: - noticed while he was at SNF recently but get worse according to his - unclear etiology, no UTI, no PNA - TSH, B12 wnl - CT head outside reported no acute abnormality - Brain MRI no acute abnormality, no new stroke - Neuro evaluated him, so thoughts could be related to post COVID confusion, versus effect from theanesthesia after recent surgery, no need for LP. -referral for neuro cognitive clinic for official evaluation ( ordered) HTN : No previous Hx of HTN , not on meds at home His BP was high here , no previous Hx of BP , will watch it , hydralazin PRN added , started in small dose of Carvedilol COVID-19 - appears he had this in early May - no symptoms currently - hold on treatment S/p renal transplant 03/22 - continue mycophenolate 500mg q12 and tacrolimus decrease dose to 2mg q12, as his tacro level was elevated - bactrim for ppx, prednisone - valcyte q48 hours -kidney transplant team on board - Peritoneal dialysis catheter need to be removed in this admission by surgery DM-I - blood sugar not controlled - he used to be on Insulin pump - A1c 5.6 - endocrine on board , appreciate their help, they are adjusting Insulin regimen for him Hep C - received with transplant - continue sofosbuvir-velpatasvir CAD - continue plavix and statin NORBERTO : CPAP home machine , his CO2 looks normal here BMI: Obesity DVT prophylaxis with lovenox Anticipated Disposition: IPR vs SNF Code status is full BMI: 35.2 Obesity Interval History / Subjective Feeling fine No headache , no focal deficit, no blurry vision Return to the PT, waiting for OT recommendation looks like he may qualify for inpatient rehab. Doddreferral was placed no urinary symptoms or resp symptoms Objective Temp: [97 F (36.1 C)-98.2 F (36.8 C)] 98.1 F (36.7 C) Pulse (Heart Rate): [67-75] 70 Resp Rate: [14-18] 18 BP: (117-145)/(58-74) 134/61 O2 Sat (%): [97 %-98 %] 98 % Weight: [110.5 kg (243 lb 8 oz)] 110.5 kg (243 lb 8 oz) Physical Exam Gen: A, A, NAD ENT: MMM Resp: CTA & P bilat, normal effort Cardio: RRR, normal S1, S2, No RONALD GI: S/NT/ND, NABS, peritoneal cath in place no concerns for infection Psych: Ox2 , appropriate affect, tangential Data Review WBC/Hgb/Hct/Plts: --/--/--/153 (06/15 0556) Bun/Creat/Cl/CO2/Glucose: --/--/--/--/147 (06/15 0654) * Starr Londono - 06/15/2021 2:10 PM EDT Referral has been received to evaluate for admission to [facility] for Inpt. Rehab. Will review with PM&R physician and notify you of the determination. 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 Hospital Plan: Basal: Insulin glargine: 40 units at bedtime Prandial: Insulin lispro: 1 unit per 6->4 gram carbs qachs & prn Correction: Insulin lispro: 1 unit(s) per every 25 mg/dL above 150 mg/dL qachs 2. Discharge Plan: Please call on day of d/c for definitive recs. Please see [employer] - [employer],under IM Consult Serv Endocrine/Diabetes - Team 2 Diab Consults for provider on day of discharge. Tentative discharge plan: (Please use the Diabetes Discharge Order Set to order medications and supplies) Primary team to please provide the following prescriptions: - Lantus (insulin glargine) insulin PENS with needles, dose TBD - Humalog (Lispro) insulin PENS with needles - mealtime insulin (QAC): dose TBD units with a large meal or TBD units with a small meal - correction insulin (ACHS): give in addition to fixed meal dosing for BG >150: Correction: TBD - insulin PEN NEEDLES, enough for 5 needles per day - generic glucometer testing strips and lancets, enough for 4 tests per day - Glucagon (pen or nasal spray) - Urine ketone strips - Goal in the AM of 80-130 and the rest of the day less than 180. If blood sugar greater than 250s or less than 70 consistently, call your doctor, as medications will need adjusting. 3. Follow up needed: [facility], , for HFU in 2-4 weeks with INVESTMENT COUNSELOR 4. Education: Discussed daily plan 5. Will review glucoses and discuss with Dr Mohan Thank you for allowing us to participate in your patient's care. If you have questions please checkon [employer], under IM Consult Serv, Endocrine/Diabetes, and call the person listed for Team 2 as directed CC: Hyperglycemia History of Present Illness: Андрей Nickerson is a 60 y.o. year old male who is seen at bedside. Cr 2.62 but high CR baseline based on donor. Appetite good. Current Diet Orders Procedures DIET CARB CONTROLLED Standing Status: Standing Number of Occurrences: 1 Current Regimen: Basal: Insulin glargine: 40 units at bedtime Prandial: Insulin lispro: 1 unit per 6 gram carbs qachs & prn Correction: Insulin lispro: 1 unit(s) per every 25 mg/dL above 150 mg/dL qachs Daily Glucose Review: Date Daily glucose review TDD Basal Prandial/ Correction 06/13/2021 180, 294, 355, 236 58 40 18 06/14/21 166, 289, 245, 251 66 40 26 06/15/21 147, 257 Review of Systems Diabetes: Negative for symptoms of hypoglycemia Physical Exam Constitutional: fair appearing male in no acute distress. Pulmonary/Chest: Respirations even and unlabored. Musculoskeletal: No acute abnormalities noted Neurological: Alert and interactive Psych: Cooperative Background History Андрей Nickerson is a 60 y.o. male with history CAD, HTN, hx of DM-1, hx of TIA, of renal tx 03/2021, DCed to SNF in Apr 2021 , found he has COVID-19 +ve in May s/p antibody infusion at that time, recently DCed home from SNF to home (with his parents). Admitted with increased confusion and weakness. He reports he was only home overnight before coming back to the hospital. H/o insulin pump buthas not been on in for several months as he has been at a SNF. Diabetes History: Type of Diabetes: Type 1 Diabetes Mellitus (T1D) Date of diagnosis: Age 10 Outpatient physician: Dr. Seth Low, endocrine Diabetes Complications: retinopathy and nephropathy s/p renal transplant Date of most recent dilated eye exam: 04/2021 DKA occurrences: 0 Home blood glucoses: He is checking his blood sugars using Dexcom CGM, however has not been wearingsince admission to SNF. ? Fastin-100 ? Hypoglycemia: Denies Home diabetes medications: Previously on T-slim/dexcom pump ? Basal: 1.5 units/hour ? Prandial: 1 unit per 4 grams ? Correction: 1 unit per 25 mg/dl above 150 mg/dl Cholesterol Medication: atorvastatin Home diet/meal plan: Eating less carbs for weight loss A1c this admission: Lab Results Component Value Date HGBA1C 5.9 (H) 06/13/2021 HGBA1C 8.5 (H) 11/13/2011 HGBA1C 8.2 (H) 06/04/2007 Blood pressure 125/58, pulse 67, temperature 97 F (36.1 C), temperature source Oral, resp. rate 14,height 1.778 m (5' 10), weight 110.5 kg (243 lb 8 oz), SpO2 98 %. Most recent entered Weight: 110.5 kg (243 lb 8 oz) Body mass index is 34.94 kg/m . Bun/Creat/Cl/CO2/Glucose: --/--/--/--/147 (06/15 653) Lab Results Component Value Date CHOLESTEROL 90 06/02/2021 TRIG 90 06/02/2021 HDL 38.0 06/02/2021 LDLCALC 34 06/02/2021 CREATININE, MG/DL, URINE Date Value Ref Range Status 11/13/2011 98.27 mg/dL Final Urine Creatinine Date Value Ref Range Status 04/14/2021 93.19 mg/dL Final MICROALBUMIN URINE RANDOM Date Value Ref Range Status 11/13/2011 417.0 ug/mL Final MICROALBUMIN/CREATININE RATIO Date Value Ref Range Status 11/13/2011 424.3 (H) 0 - 16 ug malb/mg creat Final Lab Results Component Value Date ALT 14 06/12/2021 ALT 20 06/09/2021 Cardiac echo: EF = Results for orders placed during the hospital encounter of 08/11/20 ECHOCARDIOGRAM 08/11/2020 (Final) Interpretation Summary Left ventricle demonstrates remodeling, with increased septal greater than posterior wall thickness. Normal LVEF >70%. Mild LV outflow acceleration without significant resting gradient. Diastolic function is abnormal and consistent with impaired relaxation (grade I). Probably normal left atrial pressure. Right ventricular size and function are normal. No hemodynamically significant valve disease apparent. No prior for comparison. * MARISOL Bustillo - 06/15/2021 2:01 PM EDT Placement Plan Expected Discharge Date: 06/18/2021 Referred Level of Care: SNF v IPR Barriers: faciltiy acceptance/patient choice/pre-cert/transportation/medical stability Current Referrals and Status 1. [facility]-Mwma-veydqgm consult/review 2. SNF-referrals pending Medical team notified SW of pt inquiry about [facility]. SW notified PT/OT to request updates & if patient appropriate for IPR level of care v SNF. PT anticipates patient to be a good candidate forIPR level of care; await OT update. Pt requests referral to [facility] only at this time & will consider other IPR options, if needed. SW met with patient at bedside today to discuss discharge options. Pt is alert, oriented to person/place/month/year. Pt responded day of week as Sunday but was able to state the date is, day before [facility] [place] Day. Pt pleasant & engaged in discussion. He voices being motivated to participate with therapy to achieve his goal of returning home with his spouse (works daytime caregiver). Pt states he recently discharged from [facility] for one day to his parents' home (parents are retired) before being readmitted to [facility] on 06/11/21. Pt states agreement to referrals to other SNFs in his area if IPR is not able to accept. SW extended time for SNF responses; no available SNF options at this time. Pt voices verbal agreement for SW to provide updates pt's spouse also regarding discharge plans. IPR consult requested. Await [facility] response & SNF responses. Pre-cert needed. Fide Grimes [employer] Farm[employer] Addendum 06/15 @ 7512: SW received call from Fatmata @ [facility] ([phone]).Facility confirmed ability to provide pt's labs (2x weekly, anticipate 1x weekly as of next week). Facility requests additional insurance information to confirm their [facility]. Provided information; await facility response. SW to continue to follow. Addendum 06/15 @ 4868: SW received update from [facility]; beds not anticipated until next week. [facility] reviewing referral. Attempted to meet with patient at bedside to update on status; patient sleeping. EARLE phoned pt's spouse, Nalini to discuss discharge plans. Nalini voiced concern about pt's mental status while at his parents's home after SNF discharge, apparently stayed with them for a week, not a day and missed taking medications. Additionally, pt's spouse voiced concern about pt experiencing hip pain & not being able to follow up with his PCP, Dr. Henderson @ [facility]. She requested medical team be updated on pt's hip difficulty & inquired if further assessment available;SW notified physician. Pt's spouse in agreement with additional IPR referrals being sent to other area IPRs; referrals added. SW to continue to follow as needed. * BOBBI Friend - 06/15/2021 1:14 PM EDT I saw Андрей Nickerson at the [facility] on 06/15/2021. Subjective: Seen at bedside; sitting up in chair eating lunch. No pain or headaches. Physical Examination: Temp: [97 F (36.1 C)-98.2 F (36.8 C)] 97 F (36.1 C) Pulse (Heart Rate): [67-75] 67 Resp Rate: [14-18] 14 BP: (117-145)/(58-74) 125/58 O2 Sat (%): [97 %-98 %] 98 % Weight: [110.5 kg (243 lb 8 oz)] 110.5 kg (243 lb 8 oz) I/O last 3 completed shifts: In: 350 [P.O.:350] Out: 75 [Urine:75] I/O this shift: In: 200 [P.O.:200] Out: - BP 125/58 (BP Location: Right arm, BP Position: Lying) Pulse 67 Temp 97 F (36.1 C) (Oral) Resp 14 Ht 1.778 m (5' 10) Wt 110.5 kg (243 lb 8 oz) SpO2 98% BMI 34.94 kg/m Smoking Status Current Some Day Smoker Constitutional: Well developed, well nourished, in no physical distress. HEENT: PERRL, no scleral icterus, moist pharynx Neck: Supple, no JVD, no carotid bruits Chest: Clear to auscultation bilaterally, no labored breathing, no W/R/R Cardiovascular: S1 & S2 with regular rhythm and normal rate, no uremic rub Abdominal: soft, NTTTP, ND, NABS; PD catheter noted; RLQ incision healing well Extremities: No edema, no cyanosis or clubbing, equal distal pulses; AVF in L forearm Neurological: AA/Ox3, moves all four extremities Skin: No rashes or bruises : No CVA tenderness to palpation Relevent Data: atorvastatin 40 mg Oral Daily carveDILOL 12.5 mg Oral Q12H clopidogrel 75 mg Oral Daily sofosbuvir-velpatasvir 1 tablet Oral Daily heparin 5,000 Units Subcutaneous Q8H insulin glargine injection 40 Units Subcutaneous QHS insulin lispro Subcutaneous 4x daily w/meals, HS mycophenolate mofetil 500 mg Oral Q12HNS prednisoLONE acetate 1 drop Both Eyes BID senna 8.6 mg Oral Daily sulfamethoxazole-trimethoprim 1 tablet Oral Q2 days [Held by provider] tacrolimus 2 mg Oral Q12H Tamsulosin HCl 0.4 mg Oral Daily valGANciclovir 450 mg Oral Q48H Lab Results Component Value Date WBC 6.51 06/14/2021 HGB 11.6 (L) 06/14/2021 HCT 36.1 (L) 06/14/2021 PLATELET 153 06/15/2021 MCV 95.5 (H) 06/14/2021 Lab Results Component Value Date SODIUM 138 06/14/2021 POTASSIUM 5.0 06/14/2021 CHLORIDE 112 (H) 06/14/2021 CO2 19 (L) 06/14/2021 BUN 28 (H) 06/14/2021 CREATSERUM 2.62 (H) 06/14/2021 GLUCOSE 147 (H) 06/15/2021 Lab Results Component Value Date CALCIUM 10.7 (H) 06/12/2021 PHOSPHORUS 2.3 06/12/2021 Lab Results Component Value Date CREATSERUM 2.62 (H) 06/14/2021 CREATSERUM 2.41 (H) 06/12/2021 CREATSERUM 3.10 06/09/2021 CREATSERUM 3.44 06/06/2021 CREATSERUM 2.7 06/02/2021 Lab Results Component Value Date SPGRVTYUR 1.026 06/14/2021 GLUCOSEURINE >=1000 mg/dL (A) 06/14/2021 BILIRUBINURI NEGATIVE 11/06/2006 KETONESURINE Negative 06/14/2021 BLOODURINE Negative 06/14/2021 NITRITESURIN Negative 06/14/2021 LEUKOCESTUR Negative 06/14/2021 WBCURINE 0-5 06/14/2021 RBCURINE 0-2 06/14/2021 BACTERIAURIN ABSENT 06/14/2021 Assessment/Plan: In summary, Mr. Nickerson is a 60 yr old donor transplant recipient from 03/27/2021. He apparently had altered mentation leading to this admission but he seems to be at baseline function now. He also did not have any trouble ambulating prior to the transplant but has become significantly weaker since. Still using a walker at home. 1. Immunosuppression: Continue tacrolimus at reduced dose of 2 mg BID and continue Cellcept at 500 mg BID. 2. Kidney transplant function: Stable creatinine but high baseline creatinine because of donor derived factors. His baseline renal biopsy showed Moderate acute tubular necrosis (ATN); numerous subcapsular obsolescent glomeruli, consistent with nephrosclerosis. 3. Hypertension: BP seems to be well controlled on carvedilol and tamsulocin. 4. Bone and mineral disease: Mild hypercalcemia but iPTH was 116 pg/ml recently. He still has a PD catheter which is not being used. I talked to the TRR surgeon, Dr. Sharon Acuna today and he will plan on removing it this admission. Will follow Leon Skinner MD Attending Transplant Cafe Lead * Anthony Mallory, PT - 06/15/2021 12:12 PM EDTSummary: PT Treatment Note Acute Physical Therapy Treatment Prior to Admission [facility] score(s): PRIOR LEVEL AM-PAC Mobility Raw Score: 24 PRIOR LEVEL AM-PAC Activity Raw Score: 24 Current AM-PAC score(s): CURRENT AM-PAC Mobility Raw Score: (P) 18 Based on the above AM-PAC score(s) and PT clinical judgment, patient is a good candidate for discharge to (P) Inpatient Rehab Facility Discharge Barriers: Patient needs assistance with functional mobility, Lack of 1st floor bedroom while patient is unable to safely navigate stairs Mobility equipment available at home: 2 wheeled walker ADL equipment available at home: shower chair Equipment needed for discharge: to be determined Current therapy frequency recommendation in acute: Therapy Frequency: 5 times a week Precautions and Weightbearing Status: Existing Precautions/Restrictions: (P) fall Patient Safety Communication Prior to Visit: (P) Nursing Subjective: Pt agreeable to PT, eager to get home Pain: Objective/Observation: Vitals/Vitals Responses to Treatment: Pt tolerated PT well without adverse effects. Mild fatigue with ambulation Extremity Assessments: See PT Evaluation flowsheet for Extremity Measurement updates. Balance: Sitting Balance Static Sitting-Level of Assistance: (P) Supervision Dynamic Sitting-Level of Assistance: (P) Supervision Skilled Rationale: (P) Cues for increased safety, Initiation and execution of task, Technique of activity Sitting Balance Skilled Intervention/Details: (P) Dynamic activity sitting EOB for 5 in with supervision. Pt requires UE support but able to correct/recovery LOB Standing Balance Static Standing-Level of Assistance: (P) Contact guard Dynamic Standing-Level of Assistance: (P) Minimum assistance Standing-Balance Support: (P) Gait belt, 2 wheeled walker Skilled Rationale: (P) Cues for increased safety, Initiation and execution of task, Technique of activity Standing Balance Skilled Intervention/Details: (P) Min to mod VC for safety with RW and for negotiation of obstacles. Training focused on directional changes, turning and dynamic standing acivities outside LOS Mobility Assessment/Intervention: Rolling/Turning Mobility Zalma Level: Rolling/Turning: (P) supervision Bed Features/Set-up: Rolling/Turning: (P) Head of bed elevated, Use of bed rail Skilled Rationale: (P) Initiation and execution of task, Cues for increased safety Supine to Sit Mobility Zalma Level: Supine->Sit: (P) stand-by assist Bed Features/Set-up: Supine->Sit: (P) Head of bed elevated, Use of bed rail Skilled Rationale: (P) Cues for increased safety, Initiation and execution of task, Technique of activity Transfer Assessment/Intervention: Sit to Stand Transfer Zalma Level: Sit->Stand: (P) contact guard assist Assistive Device: Sit->Stand: (P) 2 wheeled walker Skilled Rationale: (P) Cues for increased safety, Initiation and execution of task, Technique of activity, Upright gaze/neck extension Skilled Intervention/Details: Sit->Stand: (P) min VC for safety and hand position. Pt heavily relies on UE support for stand transition Stand to Sit Transfer Zalma Level: Stand->Sit: (P) minimum assist (75% patient effort) Skilled Rationale: (P) Cues for increased safety, Initiation and execution of task, Technique of activity, Hand placement, Sequencing, Positioning Skilled Intervention/Details: Stand->Sit: (P) VC for decent and safety with chair location Bed-Chair Transfer Zalma Level: Bed<->Chair: (P) contact guard assist Assistive Device: Bed<->Chair: (P) 2 wheeled walker Skilled Rationale: (P) Cues for increased safety, Technique of activity, Sequencing Gait/Functional Mobility Assessment/Intervention: Gait Assessment Zalma Level: Gait: (P) minimum assist (75% patient effort) Assistive Device: Gait: (P) 2 wheeled walker, gait belt Gait Distance (feet): (P) 75 feet Gait Deviations Identified: (P) decreased katelyn, decreased gait speed, decreased step length, decreased stride length, flexed posture Gait Skilled Rationale: (P) verbal, upright posture, increase step length, increase step width Skilled Intervention/Details - Gait: (P) Gait slow with increased reliance on RW and flexed posture. Pt able to correct with VC 50%. Attempted gait outside RW and pt unable to tolerate greater than 10 feet due to hip pain. Stairs Assessment/Intervention: Outcome Score(s): CURRENT [facility] Basic Mobility Inpatient Short Form Turning over in bed: (P) 4 - No Assistance Sitting/standing from chair: (P) 3 - A Little Assistance Moving from lying on back to sitting: (P) 3 - A Little Assistance Moving to and from bed to chair: (P) 3 - A Little Assistance Walk in hospital room: (P) 3 - A Little Assistance Climbing 3-5 steps with a railing: (P) 2 - A Lot of Assistance CURRENT [facility] Mobility Raw Score: (P) 18 CURRENT [facility] Mobility Functional Limitation/Modifier: (P) 46.58% Currently Impaired in Basic Mobility - CK Interventions: Assessment & Plan: Pt continues to progress daily with noted improvement in gait, balance and activity tolerance today. Pt would benefit from aggressive PT to address remaining functional mobility and locomotion impairments to return pt to PLOF. Anticipate steady gains and return to I PLOF given pts motivation and good family support. Will change DC rec to IPR as pt demonstrates need for intense PT and will tolerate well. Patient Instruction/Education this session: Pt ed on safety with mobility Plan for next session: (P) PT to continue to progress with general mobility with focus on gait, balance and activity tolerance Acute PT Goals Plan of Care by Anthony Mallory PT at 06/15/2021 12:05 PM Version 1 of 1 Problem: PT - Balance/Coordination/Neuro Re-Education Goal: Standing Dynamic/Static Balance Description: Pt will perform standing balance tasks for 10 minutes with standby assistance with least restrictive device in order to improve functional mobility and safety with standing tasks. Outcome: Ongoing Problem: PT - Mobility Goal: Ambulation Description: Pt will ambulate 150 feet with least restrictive device with standby assistance to improve ability to navigate home environment. Outcome: Ongoing Problem: PT - Transfers Goal: Sit <-> Stand Description: Pt will perform sit to/from stand transfers with standby assistance with least restrictive device in order to improve functional mobility and safety. Outcome: Ongoing Goal: Strength/ROM Description: Pt will perform 2 sets of 15 repetitions of lower bilateral extremity exercises with standby assistance in order to improve strength, maintain ROM, necessary for functional mobility. Outcome: Ongoing PT treatment consisted of Therapeutic Activity and Gait/Stair Training to work and progress towardsabove goal(s). Treating Therapist: Anthony Mallory PT Additional Details: I used facemask, protective eye shield, and gloves in today's patient interaction. Patient location at end of session: chair and RN aware Alarms on at end of session: none and RN aware Needs in reach. Time In: (P) 1015 Time Out: (P) 1105 Total Visit Time: (P) 50 minutes Total Treatment Time: (P) 50 minutes Upon discontinuation of Acute Care Physical Therapy Services or patient discharge from the hospitalthis note represents the current Physical Therapy Discharge Summary. * MARIA TERESA Santos - 06/15/2021 11:36 AM EDT NUTRITION RISK SCREENING NOTE Nutrition Plan of Care: 1. Continue current diet order. 2. Will provide any Nepro (425 kcal, 19 g PRO each) twice daily with Lunch and Dinner to prevent weight loss. 3. Monitor for significant weight changes. 4. Monitor and encourage po intakes with goal of average po being 75-100%. 5. oracle technical architect to follow. Андрей Nickerson is a 60 y.o. male admitted with encephalopathy. Pt unavailable and information obtained via chart review (Pt receiving care) Engine Wiper Screening Pt's appetite is fair. Pt with diarrhea. Pt with no issues with chewing and/or swallowing. Pt with weight fluctuations, does appear to be lower than normal. MST reported 2-13lb weight loss. Nutrition Risk Screening (MST) Has patient lost weight recently without trying?: 1- 2 to 13 lb weight loss Have you been eating poorly because of decreased appetite?: 1- Yes Malnutrition Screening Tool Score: 2 Past History Андрей Nickerson is a 60 y.o. male with history of renal tx 03/22, CAD, HTN, hx of DM-1, hx of tia presented as a transfer from [facility] for confusion. Height: 177.8 cm (5' 10) Last wt: 243lb IBW: 166lb %IBW: 146% BMI: 34.94 Wt Readings from Last 10 Encounters: 06/14/21 110.5 kg (243 lb 8 oz) 05/11/21 116.4 kg (256 lb 11.2 oz) 04/20/21 117.9 kg (260 lb) 04/13/21 128.9 kg (284 lb 1.6 oz) 08/11/20 121.6 kg (268 lb) 08/11/20 122 kg (269 lb) 08/11/20 122 kg (268 lb 15.4 oz) 06/30/20 122.4 kg (269 lb 12.8 oz) 11/13/11 107.1 kg (236 lb 3.2 oz) 04/21/11 108.9 kg (240 lb) Current Diet Orders Procedures DIET CARB CONTROLLED Standing Status: Standing Number of Occurrences: 1 Food Allergies reviewed:NKFA Cultural or Judaism Restrictions/Preferences: None indicated Skin Diomedes Score: 19 Pt does not meet criteria for STAND skin bundle Active Wounds: Wound (Adult, Pediatric) Right anterior;distal thigh Wound (Adult, Pediatric) 06/12/21 0700 Bilateral upper;lower;posterior back dermatitis (3) Edema: - Summary Pt is at nutrition risk due to recent kidney transplant (03/27/2021), decreased appetite, weight loss. Pt had Nepro during prior admission, will send BID to prevent weight loss. Will continue to monitor intakes and weight trends. MARIA TERESA SantosR Pager:[phone] * Miriam Fernandez RN - 06/15/2021 9:40 AM EDT Progression of Care Note Expected Discharge Date: 06/18/2021 Medical Milestones Remaining: Medically ready Assessment and Discharge Plan as of 06/15/2021 9:41 AM Plan was discussed with medical team on this date. Anticipated discharge disposition: [facility] Facility Anticipated Services at Discharge: [facility], Occupational Therapy, Physical Therapy, Outpatient follow up Barriers to Discharge: Patient/Family, Transportation, Facility/Agency Issue, Insurance Authorization Explanation of Barriers: SNF acceptance, choice, pre-cert, transportation Readmission Risk Score Risk of Readmission: 7.6 Category Reference: High:16-100 Mod-High:10-16 Mod-Low: 5-10 Low: 0-5 * Michelle Ward DO - 06/15/2021 7:19 AM EDT NEUROLOGY BRIEF NOTE Андрей Nickerson is a 60 y.o. male with PMH significant for Renal transplant 03/22 on tacro/cellcept, CAD, HTN, DM-1, glaucoma who presents for altered mental status. He did have slight tangentiality on exam, but was otherwise intact. Perhaps he had a hit to his processing from recent surgery/anesthesia vs tacrolimus toxicity vs delirium(not current). He does not classify as MCI or dementia based on our examination. MRI Brain was completed overnight with moderate small vessel disease but otherwise unremarkable. - No further work up - He can follow up with neurocognitive or neuropsychiatry for a more formal cognitive assessment - Neurology will sign off Please call the Neurology Consult A extension service supervisor if with additional questions Michelle Ward DO Neurology, PGY-[address] Garcia. * MARISOL Bustillo - 06/14/2021 3:51 PM EDT Placement Plan Expected Discharge Date: 06/16/2021 Referred Level of Care: SNF Barriers: medical stability/pre-cert/facility acceptance/pt choice Current Referrals and Status SNF referrals-pending SW received update from that patient is in agreement with SNF referrals & does not want referral made to [facility]. Await facility responses. SW will continue to follow as needed. Fide DAMON-S [employer] Farm[employer] * Miriam Fernandez RN - 06/14/2021 11:00 AM EDT Met with patient at bedside to discuss SNF. Patient was recently at [facility].He does not want to return to this facility. He is agreeable to new referrals. He understands that he may not be able to get a SNF in [place]. He stated that the last time we made referrals, [facility] was the only facility in [place] that would accept him. He would like us to stay as close to [place] as possible. SW notified. Patient also asked that we only call his spouse for updates and not call his parents, unless there is an emergency. KAYY Pineda, RN Clinical Housecalls Nurse * JERRI Pratt/COLLINS - 06/14/2021 10:30 AM EDT Hospital Medicine Progress Note Patient: Андрей Nickerson, : 1960, Impression / Plan Андрей Nickerson is a 60 y.o. 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) - CT head outside reported no acute abnormality - Brain MRI pending - Neuro on board , appreciate their help , no need for LP HTN : No previous Hx of HTN , not on meds at home His BP was high here , no previous Hx of BP , will watch it , hydralazin PRN added , started in small dose of Carvedilol COVID-19 - appears he had this in early May - no symptoms currently - hold on treatment S/p renal transplant 03/22 - continue mycophenolate 500mg q12 and tacrolimus 3mg q12 - bactrim for ppx, prednisone not on medication list - valcyte q48 hours DM-I - blood sugar not controlled - he used to be on Insulin pump - A1c 5.6 - endocrine on board , appreciate their help, they are adjusting Insulin regimen for him Hep C - received with transplant - continue sofosbuvir-velpatasvir CAD - continue plavix and statin BMI: Obesity DVT prophylaxis with lovenox Anticipated Disposition: [facility] when complete work up for his AMS Code status is full BMI: 35.2 Obesity Interval History / Subjective Feeling fine No headache , no focal deficit, no blurry vision Participated with PT with walker no urinary symptoms or resp symptoms Objective Temp: [97.8 F (36.6 C)-98.5 F (36.9 C)] 98 F (36.7 C) Pulse (Heart Rate): [66-77] 69 Resp Rate: [14-18] 16 BP: (120-182)/(62-88) 136/71 O2 Sat (%): [94 %-99 %] 97 % Weight: [110.5 kg (243 lb 8 oz)] 110.5 kg (243 lb 8 oz) Physical Exam Gen: A, A, NAD ENT: MMM Resp: CTA & P bilat, normal effort Cardio: RRR, normal S1, S2, No RONALD GI: S/NT/ND, NABS Psych: Ox2 , appropriate affect, tangential Data Review WBC/Hgb/Hct/Plts: 6.51/11.6/36.1/159 (06/14 613) Na/K+/Phos/Mg/Ca: 138/5.0/--/--/-- (06/14 613) Bun/Creat/Cl/CO2/Glucose: 28/2.62/112/19/112 (06/14 613-06/14 1426) * Mirna Blackwood, PT - 06/13/2021 1:32 PM EDT Acute Physical Therapy Evaluation Prior to Admission [facility] score(s): PRIOR LEVEL AM-PAC Mobility Raw Score: 24 Current AM-PAC score(s): CURRENT AM-PAC Mobility Raw Score: 18 Based on the above AM-PAC score(s) and PT clinical judgment, patient is a good candidate for discharge to [facility] Discharge Barriers: Patient needs assistance with functional mobility, Lack of 1st floor bedroom while patient is unable to safely navigate stairs Mobility equipment available at home: 2 wheeled walker ADL equipment available at home: shower chair Equipment needed for discharge: to be determined Current therapy frequency recommendation in acute: Therapy Frequency: 5 times a week Precautions and Weightbearing Status: Patient Safety Communication Prior to Visit: Nursing Respiratory Status O2 Device: room air Subjective: Pt was agreeable to participate in therapy session, pt reports feeling weak Pain: General Pain Documentation (Adult, OB, Peds) Presence of Pain: denies pain/discomfort Home Setting Residence: House (split level) Lives With: spouse (works) First floor setup: (basement entrance) Second floor setup: bedroom, tub shower (12 steps to bed/ bath level) Number of stairs to enter home: 1 Number of stairs in home: 6 to living room area; 6 to bed/bath Mobility Equipment Available: 2 wheeled walker ADL Equipment Available: shower chair Home Environment Details: Pt recently discharged from SNF. Initially patient was living with parents due to having a 1 level home but reports going home with spouse x 1 day before presenting back to hospital Previous Level of Function Prior level ADL Overview: Needs assist Bathing: independent Upper Body Dressing: independent Lower Body Dressing: independent Grooming: independent Toileting: independent Eating: independent Bed Mobility/Transfers: independent Ambulation Skills: needs device Assistive Device: 2 wheeled walker Level of Ambulation: household Prior Level of Function Details: Pt verbose and provides conflicting/confusing home set up Objective/Observation: Vitals/Vitals Responses to Treatment: WFL Cognition Overall Cognitive Status: Impaired Arousal/Alertness: Appropriate responses to stimuli Orientation Level: Oriented to person, Oriented to place Following Commands: Follows one step commands with increased time, Follows one step commands with repetition Safety Judgment: Decreased awareness of need for assistance, Decreased awareness of need for safety Vision Screen Currently wearing corrective lenses: Yes Visual Impairments Observed?: No Speech Speech: no gross deficits noted Hearing Hearing: no gross deficits noted Extremity Assessments: RLE Assessment RLE Assessment: Within Functional Limits LLE Assessment LLE Assessment: Within Functional Limits Sensation Overall Sensation: Intact Proprioception Proprioception: intact Skin Integrity Skin Integrity Description: Redness Edema Edema: present Location: Bilateral LEs Mobility Assessment: Supine to Sit Mobility Zalma Level: Supine->Sit: supervision Bed Features/Set-up: Supine->Sit: Flat Skilled Rationale: Positioning, Hand placement, Sequencing, Verbal cues Skilled Intervention/Details: Supine->Sit: Initial cues for safety Balance: Sitting Balance Static Sitting-Level of Assistance: Supervision Dynamic Sitting-Level of Assistance: Standby Standing Balance Static Standing-Level of Assistance: Contact guard Dynamic Standing-Level of Assistance: Minimum assistance Standing-Balance Support: Gait belt, 2 wheeled walker Skilled Rationale: Positioning, Sequencing, Hand placement, Verbal cues Standing Balance Skilled Intervention/Details: Cues for full extension Transfer Assessment: Sit to Stand Transfer Zalma Level: Sit->Stand: minimum assist (75% patient effort) Assistive Device: Sit->Stand: 2 wheeled walker Skilled Rationale: Positioning, Sequencing, Hand placement, Verbal cues Skilled Intervention/Details: Sit->Stand: Cues for proper hand placement and transfer technique Gait/Functional Mobility: Gait Assessment Zalma Level: Gait: contact guard assist Physical Assist: Gait: chair follow Assistive Device: Gait: 2 wheeled walker, gait belt Gait Distance (feet): 75 feet Gait Deviations Identified: decreased katelyn, decreased gait speed, decreased heel strike, decreased step length, decreased stride length, decreased weight shifting Gait Skilled Rationale: verbal, upright posture, increase step length Skilled Intervention/Details - Gait: Pt with slow katelyn and decreased step length Stairs: Outcome Score(s): CURRENT [facility] Basic Mobility Inpatient Short Form Turning over in bed: 4 - No Assistance Sitting/standing from chair: 3 - A Little Assistance Moving from lying on back to sittin - A Little Assistance Moving to and from bed to chair: 3 - A Little Assistance Walk in hospital room: 3 - A Little Assistance Climbing 3-5 steps with a railin - A Lot of Assistance CURRENT [facility] Mobility Raw Score: 18 CURRENT [facility] Mobility Functional Limitation/Modifier: 46.58% Currently Impaired in Basic Mobility- CK Interventions: Assessment & Plan: Patient was admitted for AMS/Covid +, Renal Transplant 03/27/2021 and seen for therapy evaluation related to deficits in functional mobility. Exam findings include impairments in: Strength, Balance, Coordination, Posture, Transfers, Gait/Locomotion, Motor control, Neuromotor development and sensory integration. These impairments contributeto functional limitations including Decreased ambulation distance/endurance, Difficulty stair climbing/descent, Increased fall risk, Limited standing tolerance, Limited sitting tolerance, Difficulty with bed mobility, Difficulty with transfers, Decreased functional mobility. Current clinical presentation is Evolving - changing/inconsistent clinical characteristics (Moderate). Patient history factors impacting Plan Of Care include . Patient will benefit from skilled physical therapy to address these impairments, functional limitations, and participation restrictions andhas good rehab potential to achieve therapy goals. Planned Therapy Interventions: balance training, bed mobility training, gait training, functional activity tolerance, endurance, neuromuscular re-education, strengthening, transfer training Plan for next session: Continue to progress functional mobility Acute PT Goals Plan of Care by Mirna Blackwood PT at 06/13/2021 1:31 PM Version 1 of 1 Problem: PT - Balance/Coordination/Neuro Re-Education Goal: Standing Dynamic/Static Balance Description: Pt will perform standing balance tasks for 10 minutes with standby assistance with least restrictive device in order to improve functional mobility and safety with standing tasks. Outcome: Ongoing Problem: PT - Mobility Goal: Ambulation Description: Pt will ambulate 150 feet with least restrictive device with standby assistance to improve ability to navigate home environment. Outcome: Ongoing Goal: Stairs Description: Pt will ascend/descend 12 stairs with railings with standby assistance with least restrictive device to improve ability to perform functional mobility necessary in recommended discharge environment. Outcome: Ongoing Problem: PT - Transfers Goal: Sit <-> Stand Description: Pt will perform sit to/from stand transfers with standby assistance with least restrictive device in order to improve functional mobility and safety. Outcome: Ongoing Goal: Strength/ROM Description: Pt will perform 2 sets of 15 repetitions of lower bilateral extremity exercises with standby assistance in order to improve strength, maintain ROM, necessary for functional mobility. Outcome: Ongoing Evaluating Therapist: Mirna Blackwood PT Additional Details: Co-evaluation/co-treatment performed?: Yes, simultaneous billable treatment This co-evaluation session performed between PT and OT was beneficial, necessary and provided distinct services in establishing this person's individual plan of care. Medical complexity with functional deficits necessitated two skilled therapy disciplines working concurrently to determine each discipline's goals. This co-treatment was medically necessary due to patient's: Coordination issues and Postural control I used facemask, protective eye shield, and gloves in today's patient interaction. Evaluation Complexity Components History: Moderate (1-2 personal factors and/or comorbidities) Body Systems Review: Moderate (Addressing a total of 3 or more elements) Clinical Presentation: Evolving - changing/inconsistent clinical characteristics (Moderate) Clinical Decision Making: Moderate Time In: 1008 Time Out: 1026 Total Visit Time: 18 minutes Total Treatment Time: 18 minutes Patient location at end of session: chair Alarms on at end of session: chair alarm Needs in reach. Upon discontinuation of Acute Care Physical Therapy Services or patient discharge from the hospitalthis note represents the current Physical Therapy Discharge Summary. * DIAN Dooley - 06/13/2021 1:03 PM EDT Discharge Planning Patient Assessment Admission Assessment Patient Assessment Completed: Yes Anticipated discharge disposition: [facility] Reason for Admission: Encephalopathy Is the patient able to participate in the assessment?: Yes Information source: Patient, Review of Medical Record Information Source Name/Contact: Андрей Nickerson [phone] Demographics Verified and Updated: Yes Has the patient been admitted to any hospital in the last 30 days?: Transferred From Outside Hospital Advanced Care Planning Has the patient completed Advance Directives?: Not Completed Referral to Social Work for Advance Care Planning? : Patient Declines Legal Next of Kin Does the patient have a Guardian?: No Spouse: Yes Name and Contact information: Nalini Nickerson [phone] Adult Child(saritha), List All Adult Children: No Parent(s) - List All Living Parents: Yes Name and Contact information: Evi Nickerson [phone] Would you like to add additional parents?: Yes Name and Contact information: Dorita Nickerson [phone] Referral to Social Work to Identify Legal Next of Kin?: No Reviewed and Updated in Demographics? : Yes Outpatient Providers Does patient have a primary care physician? : Yes When was the patient's last PCP visit?: > 30 days Does the patient follow any specialists?: Yes Reviewed and updated Care Team?: Yes Patient Care Team: Handy Henderson DO as PCP - General (Family Medicine) Diego Rodriguez MD as Consulting Physician (Cardiovascular Medicine) Peter Leon MD as Consulting Physician (Endocrinology, Diabetes & Metabolism) Environment/Caregivers Is the patient from a facility or half-way?: No Patient lives with: Spouse or Partner Living Environment: House How many steps does the patient have to navigate to enter or inside the home? : 1 Does the patient have a first floor set-up with bed and bathroom?: No Patient Caregiving Responsibilities: Self Patient-identified caregiver/support network: Family Who does the patient identify as a teachable caregiver(s)?: Spouse or Partner Services Does the patient use a home health or hospice agency?: No Current with dialysis?: No Does the patient use any community programs or services?: No Does patient use DME? : walker, glucometer Does the patient use oxygen?: No Does patient use medical supplies? : none Anticipated Changes Related to Illness/Injury? : No Initial ADLs Prior to Arrival What is the patient's baseline physical functioning prior to this acute illness?: independent What is the patient's baseline cognitive functioning prior to this acute illness?: independent Is the patient's baseline functioning changed by this acute illness? : Yes Changes observed : Cognitive Concerns with patient being able to care for themselves at home? : No Are there therapy or specialists consults?: Yes Select consult type: PT, OT Does the patient's home require any home modifications for discharge? : No CM to recommend therapy or other consults? : No Medication Management Does the patient have prescription insurance coverage? : Yes Is the patient on Anticoagulation? : No [id number] [place] [address] - [phone] [place] [place] [id number] [employer]ancing [employer] Does the patient or customer retention representative express financial concerns? : No Employed?: Disabled Coping/Stress Concerns about patient s coping and stress?: No Concerns about patient s caregiver s coping and stress?: Unable to Assess Values and Beliefs Cultural or jewish practices that may impact discharge planning and/or medical care?: No Initial Discharge Planning Anticipated discharge disposition: [facility] Transportation Available for Discharge: Family or Friend, Ambulance Anticipated DME: none Anticipated Services at Discharge: Physical Therapy, Occupational Therapy, [facility] Patient Assessment Completed: Yes Risk of Readmission: 11.9 Category Reference: High:16-100 Mod-High:10-16 Mod-Low: 5-10 Low: 0-5 Expected Discharge Date: 06/16/2021 Discharge Planning Summary Anticipate that Pt will discharge to a [facility] facility. Case Management Plan 1. RX, PCP, and demographics reviewed and updated in the system 2. Will monitor team recommendations for level of care at discharge 3. Patient will be provided instructions on follow up appointments 4. Patient will be provided instructions/information on the warning signs and symptoms which may indicate the need to seek medical attention 5. Will continue to follow with medical team to arrange recommended follow up with specialty physicians MARISOL Celis Housecalls Nurse [phone] * JERRI Pratt/[facility] - 06/13/2021 12:00 PM EDT [facility] Progress Note Patient: Андрей Nickerson, : 1960, Impression / Plan Андрей Nickerson is a 60 y.o. 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) - CT head outside reported no acute abnormality - Brain MRI ordered , pending - Neuro c/s HTN : No previous Hx of HTN , not on meds at home His BP was high here , no previous Hx of BP , will watch it , hydralazin PRN added , started in small dose of Carvedilol COVID-19 - appears he had this in early May - no symptoms currently - hold on treatment S/p renal transplant 03/22 - continue mycophenolate 500mg q12 and tacrolimus 3mg q12 - bactrim for ppx, prednisone not on medication list - valcyte q48 hours DM-I - blood sugar not controlled - he used to be on Insulin pump , patient states on 34 units lantus at bedtime ( while off pump) and SSI, increasing to 40 units at bedtime - checking A1c - endocrine c/s Hep C - received with transplant - continue sofosbuvir-velpatasvir CAD - continue plavix and statin BMI: Obesity DVT prophylaxis with lovenox Anticipated Disposition: SNF when complete work up for his AMS Code status is full BMI: 35.2 Obesity Interval History / Subjective Feeling fine No headache , no focal deficit, no blurry vision Participated with PT with walker no urinary symptoms or resp symptoms Objective Temp: [97.3 F (36.3 C)-98.7 F (37.1 C)] 98 F (36.7 C) Pulse (Heart Rate): [74-91] 76 Resp Rate: [16] 16 BP: (138-188)/(60-89) 144/63 O2 Sat (%): [96 %-99 %] 98 % Physical Exam Gen: A, A, NAD ENT: MMM Resp: CTA & P bilat, normal effort Cardio: RRR, normal S1, S2, No RONALD GI: S/NT/ND, NABS Psych: Ox2 ( was disoriented about the month, said Nov ) , appropriate affect, tangential Data Review Bun/Creat/Cl/CO2/Glucose: --/--/--/--/180 (03/14 0802) * Colleen Butt OT - 06/13/2021 10:40 AM EDT Acute Occupational Therapy Evaluation Prior to Admission AM-PAC Score: PRIOR LEVEL AM-PAC Activity Raw Score: 24 Current AM-PAC score(s): CURRENT AM-PAC Activity Raw Score: 19 Based on the above AM-PAC score(s) and OT clinical judgment, discharge destination recommendation is: [facility] Discharge Barriers: Patient needs assistance with IADLs (see note below), Patient needs assistance with ADLs, Cognitive impairments that impact safety (see note below) Mobility equipment available at home: 2 wheeled walker ADL equipment available at home: shower chair Equipment recommendations for discharge: none Current therapy frequency recommendation(s) in acute: 4 times a week Precautions and Weightbearing Status: OT Existing Precautions/Restrictions: fall Patient Safety Communication Prior to Visit: Nursing Respiratory Status O2 Device: room air Subjective: Alert and agreeable to session Pain: General Pain Documentation (Adult, OB, Peds) Presence of Pain: denies pain/discomfort Home Setting Residence: House (split level) Lives With: spouse (works) First floor setup: (basement entrance) Second floor setup: bedroom, tub shower (12 steps to bed/ bath level) Number of stairs to enter home: 1 Number of stairs in home: 6 to living room area; 6 to bed/bath Mobility Equipment Available: 2 wheeled walker ADL Equipment Available: shower chair Home Environment Details: Pt recently discharged from SNF. Initially patient was living with parents due to having a 1 level home but reports going home with spouse x 1 day before presenting back to hospital Previous Level of Function Prior level ADL Overview: Needs assist Bathing: independent Upper Body Dressing: independent Lower Body Dressing: independent Grooming: independent Toileting: independent Eating: independent Bed Mobility/Transfers: independent Ambulation Skills: needs device Assistive Device: 2 wheeled walker Level of Ambulation: household Prior Level of Function Details: Pt verbose and provides conflicting/confusing home set up IADL History IADLs: needs assist Objective/Observation: Vitals/Vitals Responses to Treatment: [facility] Vision Screen Currently wearing corrective lenses: Yes Visual Impairments Observed?: No Speech Speech: no gross deficits noted Hearing Hearing: no gross deficits noted Cognition Overall Cognitive Status: Impaired Arousal/Alertness: Appropriate responses to stimuli Orientation Level: Oriented to person, Oriented to place (hospital; January 2022) Following Commands: Follows one step commands with increased time, Follows one step commands with repetition Safety Judgment: Decreased awareness of need for assistance, Decreased awareness of need for safety Awareness of Errors: Decreased awareness of errors Deficits: Decreased awareness of deficits Attention Span: Attends with cues to redirect Memory: Decreased short term memory Problem Solving: Assistance required to identify errors made, Assistance required to generate solutions, Assistance required to implement solutions ADLs: ADL Anticipated Performance (ADLs not directly observed this session): Eating, Grooming, Bathing, UE Dressing, Toileting Eating Assistance: Supervision Eating Intervention/Details: cues for safe strategy; chewing on apple peel for extended perior during questioning and reporting he can't chew without his dentures. Grooming Assistance: Contact guard assist Bathing Assistance: Contact guard assist UE Dressing Assistance: Stand by LE Dressing Assistance: Stand by LE Dressing Location: edge of bed LE Dressing Deficit: Increased time to complete, Generalized weakness, Activity tolerance, Don/doffR sock, Don/doff L sock, Balance LE Dressing Skilled Rationale (Verbal/Tactile/Visual/Demonstration): Facilitate positioning, Technique of activity, Cues for increased safety, Setup, Supervision LE Dressing Intervention/Details: cues for safe strategy; some retropulsion noted Toilet Assistance: Contact guard assist Extremity Assessments: RUE Assessment RUE Assessment: Within Functional Limits LUE Assessment LUE Assessment: Within Functional Limits Balance: Sitting Balance Static Sitting-Level of Assistance: Supervision Dynamic Sitting-Level of Assistance: Standby Standing Balance Static Standing-Level of Assistance: Contact guard Dynamic Standing-Level of Assistance: Contact guard Neuro: Sensation Overall Sensation: Intact Proprioception Proprioception: intact Gross Coordination Gross Coordination: bilat UE intact Fine Motor Coordination Additional Documentation: No Skin and Edema: Skin Integrity Skin Integrity Description: Swelling, Petechiae, Redness (bilat LE) Edema Edema: present, pitting Location: bilat LE; abdomen Mobility Assessment: Rolling/Turning Mobility Zalma Level: Rolling/Turning: supervision Bed Features/Set-up: Rolling/Turning: Flat Skilled Rationale: Sequencing, Hand placement, Verbal cues Supine to Sit Mobility Zalma Level: Supine->Sit: supervision Bed Features/Set-up: Supine->Sit: Flat Skilled Rationale: Sequencing, Hand placement, Verbal cues Transfer Assessment: Sit to Stand Transfer Zalma Level: Sit->Stand: minimum assist (75% patient effort) Skilled Rationale: Sequencing, Hand placement, Verbal cues Stand to Sit Transfer Zalma Level: Stand->Sit: contact guard assist Assistive Device: Stand->Sit: 2 wheeled walker Skilled Rationale: Positioning, Sequencing, Verbal cues, Hand placement Bed-Chair Transfer Zalma Level: Bed<->Chair: contact guard assist Assistive Device: Bed<->Chair: 2 wheeled walker, armed chair Skilled Rationale: Positioning, Sequencing, Hand placement, Verbal cues Functional Mobility: Functional Mobility Zalma Level: Functional Mobility/Gait: contact guard assist Assistive Device: Functional Mobility/Gait: 2 wheeled walker Functional Mobility Distance: Distance needed for common household mobility Functional Mobility Deficits: Activity tolerance, Balance, Slowed gait speed, Pain Functional Mobility Skilled Rationale: Cues for increased safety, Energy conservation, Walker management/safety, Verbal cues, Upright gaze/neck extension, Technique of activity Skilled Intervention/Details - Functional Mobility/Gait: Reporting hip pain; decreased endurance; less than household distances Outcome Score(s): Pt tolerated OT cognitive screen as follows: Pt able to answer basic safety questions correctly this date: 1)What would you do if you spilled boiling water on your lap? stand up quick, call somebody/ the squad 2)What would you do if someone broke into your home? 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 call For help; my cell phone wouldn't be toofar 4)What would you do if you locked yourself out of the house? use the garage code 5)What would you do if your trash can was on fire? call the fire dept; put water on it 6)What would you do if you got bread stuck in the toaster? unplug the toaster and then call an electronic repair person Pt demonstrated decreased safety awareness with questions and requiring increased prompting for next steps of questions Pt able to recall 1/3 words for delayed recall this date. Pt able to answer 3/4 comprehension questions correctly this date: 1) Do apples grow on trees? yes 2) Do strawberries grow on trees? no 3) If I gave you a quarter and 2 dimes, how much money would you have? initially said 25cents, corrected to 45 cents 4) If it is 4:30 now, and dinner will be ready in 45 min, what time is dinner? quarter after 5 Pt able to answer 3/3 abstract questions correctly this date: 1) Don't cry over spilled milk. 2)the squeaky wheel gets the grease. 3)People who live in glass houses should not throw stones. CURRENT AM-PAC Daily Activity Inpatient Short Form Putting on/Taking Off Lower Body Clothin - A Little Assistance Bathin - A Little Assistance Toiletin - A Little Assistance Putting on/Taking Off Upper Body Clothin - A Little Assistance Groomin - A Little Assistance Eatin - No Assistance CURRENT AM-PAC Activity Raw Score: 19 CURRENT AM-PAC Activity Functional Limitation/Modifier: 42.80% Currently Impaired in Daily Activity- CK Interventions: Assessment & Plan: Patient was admitted for encephalopathy (recent confusion, weakness) and seen for therapy evaluation related to ADL deficits. Exam findings include impairments in: balance, endurance, ROM, transfers. These impairments contribute to occupational performance limitations including bathing, dressing, grooming, toileting, functional mobility, ADL transfers. The following factors impact the plan of care: hx of kidney transplant and recent COVID Patient will benefit from skilled occupational therapy to address these impairments, occupational performance limitations, and participation restrictions. Patient's rehab potential is: good, to achieve stated therapy goals. Planned Therapy Interventions (OT Eval): ADL retraining, IADL retraining, bed mobility training, balance training, transfer training, ROM (range of motion) Patient Instruction/Education this session: Patient Instruction: role of OT, OT plan of care Plan for next session: progress towards POC Acute OT Goals Plan of Care by Colleen Butt OT at 06/13/2021 1:11 PM Version 1 of 1 Problem: OT - Dressing Goal: Lower Body Dressing Description: Pt will complete LE dressing tasks with modified independence for improved ability to complete self-care activities. Outcome: Ongoing Problem: OT - ADLs Goal: Grooming Description: Pt will complete grooming in standing with modified independence for improved ability to safely complete ADLs. Outcome: Ongoing Goal: Bathing Description: Pt will perform full body bathing routine with standby assistance while seated and standing for improved ability to complete self-care activities. Outcome: Ongoing Problem: OT - Cognition Goal: Cognition Home Maintenance Description: Pt will complete simulated home maintenance task (medication management, finance management, etc.) with supervision to promote safety and success at discharge destination. Outcome: Ongoing Problem: OT - Endurance Goal: Endurance Functional Mobilty Around Home Description: Pt will complete distance needed for common household mobility. Outcome: Ongoing Problem: OT - Other Goal: Energy Conservation Description: Pt will follow energy conservation techniques appropriately 100% of the time during ADLs and functional mobility to conserve energy and maximize functional performance. Outcome: Ongoing OT treatment consisted of ADL retraining, IADL retraining, balance training, bed mobility training,range of motion and transfer training to work and progress towards above goal(s). Evaluating Therapist: Colleen Butt OT Additional Details: Co-evaluation/co-treatment performed?: Yes, simultaneous billable treatment This co-evaluation session performed between OT and PT was beneficial, necessary and provided distinct services in establishing this person's individual plan of care. Medical complexity with functional deficits necessitated two skilled therapy disciplines working concurrently to determine each discipline's goals. This co-treatment was medically necessary due to patient's: Coordination issues and Postural control I used facemask, protective eye shield, and gloves in today's patient interaction. OT Evaluation Complexity Occupational Profile and Client History: Moderate - expanded history Assessment of Occupational Performance: Low (1-3 performance deficits) Clinical Decision/Performance Deficits: Low (problem-focused assessments w/limited treatment options) Time In: 1008 Time Out: 1040 Total Visit Time: 32 minutes Total Treatment Time: 32 minutes Patient location at end of session: chair Alarms on at end of session: chair alarm Needs in reach. Upon discontinuation of Acute Care Occupational Therapy Services or patient discharge from the hospital this note represents the current Occupational Therapy Discharge Summary. * JERRI Pratt/[facility] - 06/12/2021 1:26 PM EDT [facility] Medicine Progress Note Patient: Андрей Nickerson, : 1960, Impression / Plan Андрей Nickerson is a 60 y.o. 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 infection) - CT head outside reported no acute abnormality - Brain MRI ordered - May need LP COVID-19 - appears he had this in early May - no symptoms currently - hold on treatment S/p renal transplant 03/22 - continue mycophenolate 500mg q12 and tacrolimus 3mg q12 - bactrim for ppx, prednisone not on medication list - valcyte q48 hours DM-I - patient states on 34 units lantus at bedtime and SSI - continued here Hepc - received with transplant - continue sofosbuvir-velpatasvir CAD - continue plavix and statin BMI: Obesity DVT prophylaxis with lovenox Anticipated Disposition: TBD , PT/OT c/s Code status is full BMI: 35.2 Obesity Interval History / Subjective Feeling ok No headache , no focal deficit, no blurry vision no urinary symptoms or resp symptoms Objective Temp: [96.9 F (36.1 C)-98.1 F (36.7 C)] 98.1 F (36.7 C) Pulse (Heart Rate): [74-87] 87 Resp Rate: [16-18] 16 BP: (146-185)/(83-88) 175/83 O2 Sat (%): [99 %-100 %] 100 % Weight: [111.1 kg (245 lb)] 111.1 kg (245 lb) Physical Exam Gen: A, A, NAD ENT: MMM Resp: CTA & P bilat, normal effort Cardio: RRR, normal S1, S2, No RONALD GI: S/NT/ND, NABS Psych: Ox3, appropriate affect, tangential Data Review WBC/Hgb/Hct/Plts: 5.97/12.0/37.0/185 (06/12 0439) Na/K+/Phos/Mg/Ca: 139/4.4/2.3/1.5/10.7 (06/12 438) Bun/Creat/Cl/CO2/Glucose: 34/2.41/112/20/242 (06/12 438-06/12 1140) Ptt/Pt/Inr: 28.3/13.5/1.0 (06/12 438) [facility] Narrative* Darren George MD - 06/21/2021 1:31 PM EDT Images from the original note were not included. Hospital Medicine Discharge Summary Patient Name Андрей Nickerson Age (Date of ) 60 y.o. (1960) Admit Date 06/11/2021 Discharge Date 06/21/2021 Inpatient Days 10 Action Items Continue follow-up with transplant nephrology Follow-up with neurocognitive clinic regarding prior mentation changes. Dear Doctors, I recently had the opportunity to care for Андрей Nickerson during his recent hospital stay at [facility]. As you may know, Mr. Nickerson is a 60 y.o. male with history of renal transplant (03/2021). CAD, HTN,Type 1 DM, hx of TIA, COVID-19, recently DCed home from SNF but reported increased confusion and weakness, leading to repeat hospitalization. Encephalopathy - Resolved: Noticed while he was at SNF recently but get worse according to his . Unclear etiology, no UTI, no PNA. TSH, B12 wnl. CT head outside reported no acute abnormality. Brain MRI no acute abnormality, no new stroke. Neuro evaluated him, thought could be related to post COVID confusion, versus effect from the anesthesia after recent surgery - referral for neuro cognitive clinic for official evaluation S/p renal transplant 03/22: Transplant nephrology assisted during hospitalization, transitioned to everolimus 3 mg BID, mycophenolate 500 mg BID, prednisone 5 mg daily. Bactrim/Valcyte for ppx. Previous peritoneal dialysis catheter was removed on 06/18. - Should have follow-up everolimus pre-drug trough obtained tomorrow - Follow-up with transplant clinic on 06/24. Type 1 DM: Patient returned to home insulin pump on 06/20. Essential HTN: Started on carvedilol 12.5 mg BID with improvement in BP. Hx of COVID-19: Had this in early May s/p antibody infusion. Hep C: received with transplant. Continue sofosbuvir-velpatasvir CAD: continue plavix and statin NORBERTO: CPAP home machine Obesity: Body mass index is 34.62 kg/m . Upon discharge the patient's code was Full Code Please see the remainder of this document for relevant data from this admission as well as the patient's discharge instructions and follow-up appointments.. An electronic copy of the patient's records can be obtained via [employer] at [email or web address] It has been my pleasure participating in this patient's care. Please contact me with any questions or concerns regarding his hospital stay. The total time of discharge was 44 minutes. Sincerely, Darren George MD Division of Hospital Medicine Relevant Data from this Admission Vitals BP: 136/69 Pulse (Heart Rate): 73 Resp Rate: 16 Temp: 98 F (36.7 C) O2 Sat (%): 98 % Weight: 109.5 kg (241 lb 4.8 oz) Physical Exam on Discharge Resp: lungs clear to auscultation bilaterally, normal work of breathing CV:: RRR, normal S1 and S2 Psych: Ox3, appropriate affect and cognition Recent Labs 06/21/21 0606 WBC 7.16 HGB 10.7* PLATELET 152 SODIUM 135 POTASSIUM 4.5 CO2 19* ANIONGAP 11 BUN 45* CREATSERUM 2.51* MAGNESIUM 1.8 BMI (Calculated): 34.9 Patient Instructions on Discharge Future Appointments Date Time Provider Department Center 06/24/2021 1:45 PM BOBBI Friend [id number] [facility] 10/25/2021 1:30 PM BOBBI Coates Meng, PhD [place] [id number] [facility] [address] [place] [address] Follow up Please contact this pharmacy for refills of pt's immunosuppressant medications. Medication List START taking these medications carveDILOL 12.5 MG TABS Commonly known as: COREG Take 1 tablet by mouth every 12 hours. * CUSTOM MEDICATION Please obtain weekly BMP and CBC for two weeks and fax results to Dr. Leon Skinner at [phone]. * CUSTOM MEDICATION Please obtain AM everolimus level prior to morning dose and fax to Dr. Leon Skinner at [phone] Start taking on: June 22, 2021 Everolimus 1 MG TABS Take 3 tablets by mouth every 12 hours. furOSEmide 20 MG TABS Commonly known as: LASIX Take 2 tablets by mouth 2 times daily for 5 days. * This list has 2 medication(s) that are the same as other medications prescribed for you. Read thedirections carefully, and ask your doctor or other care provider to review them with you. CHANGE how you take these medications * Glucagon Emergency 1 MG KIT What changed: Another medication with the same name was changed. Make sure you understand how and when to take each. * glucagon 1 MG KIT injection by Subcutaneous route. Use as directed What changed: how much to take when to take this reasons to take this additional instructions * This list has 2 medication(s) that are the same as other medications prescribed for you. Read thedirections carefully, and ask your doctor or other care provider to review them with you. CONTINUE taking these medications acetaminophen 325 MG tablet Commonly known as: TYLENOL Take 2 tablets by mouth every 6 hours as needed for Mild Pain or Pain (breakthrough). albuterol 108 (90 Base) MCG/ACT AERS inhaler Dexcom G6 Sensor MISC Generic drug: Dexcom G6 Sensor Dexcom G6 Transmitter MISC Generic drug: Dexcom G6 Transmitter docusate 100 MG CAPS Commonly known as: COLACE Take 1 capsule by mouth 2 times daily as needed for Constipation. Hold for loose stool glucose blood test strips STRP strip Commonly known as: ONE TOUCH TEST STRIPS PT TESTING 6XS DAILY GLUCOSE MONITOR LANCETS PRESCRIPTION DM1 on Pump insulin aspart 100 UNIT/ML injection Commonly known as: NovoLOG Per pump - uses approximately 50-70 per day. Lipitor 40 MG TABS Generic drug: atorvastatin mycophenolate mofetil 250 MG CAPS Commonly known as: CELLCEPT Take 2 capsules by mouth every 12 hours. Diagnosis Code: ICD 9:V42.0, ICD 10:Z94.0 - Kidney transplant. Date of Transplant: 03/27/2021. ONE TOUCH ULTRASOFT LANCETS MISC 6 times daily Plavix 75 MG TABS Generic drug: clopidogrel prednisoLONE acetate 1 % SUSP ophthalmic suspension Commonly known as: PRED FORTE senna 8.6 MG TABS Commonly known as: SENOKOT Take 1 tablet by mouth daily as needed for Constipation. sofosbuvir-velpatasvir 400-100 MG TABS Commonly known as: EPCLUSA Take 1 tablet by mouth daily. sulfamethoxazole-trimethoprim 800-160 MG per tablet Commonly known as: BACTRIM DS Take 1 tablet by mouth every other day. Systane Balance 0.6 % SOLN Generic drug: Propylene Glycol Tamsulosin HCl 0.4 MG CAPS Commonly known as: FLOMAX valGANciclovir 450 MG TABS Commonly known as: valCYTE Take 1 tablet by mouth every 48 hours. STOP taking these medications tacrolimus 1 MG CAPS Commonly known as: PROGRAF Where to Get Your Medications These medications were sent to [facility] [address], [address], [place] [address] Hours: Sunday through Sunday 8am to 9pm, Sunday and Sunday 9am to 6pm Everolimus 1 MG TABS You can get these medications from any pharmacy Bring a paper prescription for each of these medications CUSTOM MEDICATION CUSTOM MEDICATION [facility] Note* Nursing Notes - Florinda Massey RN - 06/21/2021 3:19 AM EDT Secure chat sent to GM6 MD [place] - [place] an FYI - pt called out around 0210 and wanted us to check his blood sugar. It was 33 and since pt has a diet, he stated he would like to eat to bring it up. His recheck after eating a snack was 50. Pt asked if he could eat another snack (which he is currently eating). Will recheck again in 30 minutes. If pt is still below 80 after this second snack, would you like me to give dextrose? Florinda Massey RN [facility]03-22-2022 Miscellaneous Notes* Nursing Notes - Florinda Massey RN - 06/21/2021 3:19 AM EDT Secure chat sent to GM6 MD [place] - [place] an FYI - pt called out around 0210 and wanted us to check his blood sugar. It was 33 and since pt has a diet, he stated he would like to eat to bring it up. His recheck after eating a snack was 50. Pt asked if he could eat another snack (which he is currently eating). Will recheck again in 30 minutes. If pt is still below 80 after this second snack, would you like me to give dextrose? Florinda Massey RN * Plan of Care - Alden Urena, PT - 06/20/2021 3:11 PM EDT Problem: PT - Balance/Coordination/Neuro Re-Education Goal: Standing Dynamic/Static Balance Description: Pt will perform standing balance tasks for 10 minutes with standby assistance with least restrictive device in order to improve functional mobility and safety with standing tasks. Outcome: Progressing Toward Goal Problem: PT - Mobility Goal: Ambulation Description: Pt will ambulate 150 feet with least restrictive device with standby assistance to improve ability to navigate home environment. Outcome: Progressing Toward Goal Goal: Stairs Description: Pt will ascend/descend 12 stairs with railings with standby assistance with least restrictive device to improve ability to perform functional mobility necessary in recommended discharge environment. Outcome: Progressing Toward Goal Problem: PT - Transfers Goal: Sit <-> Stand Description: Pt will perform sit to/from stand transfers with standby assistance with least restrictive device in order to improve functional mobility and safety. Outcome: Progressing Toward Goal Goal: Strength/ROM Description: Pt will perform 2 sets of 15 repetitions of lower bilateral extremity exercises with standby assistance in order to improve strength, maintain ROM, necessary for functional mobility. Outcome: Progressing Toward Goal * Brief Op Note - Unruly Diaz MD, PhD - 06/20/2021 8:43 AM EDT Андрей Nickerson ([id number]) PRE OPERATIVE DIAGNOSIS Status post kidney transplant [Z94.0] POST OPERATIVE DIAGNOSIS Post-Op Diagnosis Codes: * Status post kidney transplant [Z94.0] PROCEDURE PERFORMED Procedure(s) (LRB): CAPD REMOVAL (N/A) PRIMARY CLOSURE Yes INTRAOPERATIVE FINDINGS No significant abnormalities SURGEON Surgeon(s) and Role: * Unruly Diaz MD, PhD - Primary ANESTHESIOLOGIST Anesthesiologist: Jaylon Bennett MD, PhD Boiler Shop Supervisor Assisting: Brissa Raines DO SURGICAL STAFF Supervisor Reactor Fueling: Sp Flanagan RN Scrub Person: Mary Holguin; Shamir Ashley Resident Assisting: Tiffanie Brown MD COMPLICATIONS None ESTIMATED BLOOD LOSS Minimal SPECIMENS No specimen sent * No specimens in log * Unruly Diaz MD, PhD June 20, 2021 8:43 AM * Treatment Plan - DANIEL Baeza - 06/17/2021 3:00 PM EDT Patient was NOT seen at bedside today as he was in OR for Peritoneal dialysis catheter removal. Chart reviewed including blood glucose flowsheet. Yesterday the patient's blood glucoses ranged 118-252, with a total daily dose of 76 units of insulin. Received half his basal dose last night d/t NPO status per primary team. Will increase back up tonight. Expect hyperglycemia with 4 mg dexamethasone given in OR. Strictly cover all carbs. Insulin recommendations for today: Basal: Insulin glargine: 40 units at bedtime Prandial: Insulin lispro: 1 unit per 4 gram carbs qachs & prn Correction: Insulin lispro: 1 unit(s) per every 25 mg/dL above 150 mg/dL qachs Thank you for this consult, we will continue to follow. DANIEL Herrera Inpatient Diabetes Consults * Plan of Care - Tiffanie Brown MD - 06/17/2021 12:27 PM EDT Transplant Surgery Plan of Care Please keep the post-operative dressing in place for 48 hours post op. The dressings can them be removed. No soaking the incisions in a tub or pool for 4-6 weeks or as instructed to do so. Elliot will need to be removed 2 weeks post-operatively. The patient can reach out to the Transplant Surgery clinic with questions or concerns after discharge. Tiffanie Brown MD Department of General Surgery Pager: [phone] * Op Note - Unruly Diaz MD, PhD - 06/17/2021 12:00 PM EDT Operative Report DATE PERFORMED: 06/17/2021 PREOPERATIVE DIAGNOSIS: Status post kidney transplantation. No need for dialysis. POSTOPERATIVE DIAGNOSIS: Status post kidney transplantation. No need for dialysis. PROCEDURE: Removal of peritoneal dialysis catheter. ANESTHESIA: General. SURGEON(S): Unruly Diaz MD, PhD FAMILY RESOURCE COORDINATOR: Dr. Stephanie Moreno ESTIMATED BLOOD LOSS: Minimal. COMPLICATIONS: None. DRAINS: None. DISPOSITION: To recovery room in stable condition. STATEMENT OF MEDICAL NECESSITY: Mr. Nickerson is a 60-year-old male who is status post successful kidney transplantation. The patient does not need dialysis therefore was scheduled for removal of peritoneal dialysis catheter. The patient understood the risk of procedure and informed consent was obtained. DESCRIPTION OF PROCEDURE: The patient was taken to the operating room, placed supine on the operating table. General anesthesia was administered successfully. Anterior abdominal wall was prepared and draped in the usual sterile fashion. A small incision was made left to the umbilicus in the scar of his previous incision. Dissection was carried down. The CAPD catheter was identified. The catheter was fully entered into the peritoneal cavity and the cuff in the properitoneal space was dissected free, and the intraperitoneal segment of the catheter was removed. The opening in the peritoneum fascia was closed using 2 stitches of #1 Surgilon. The subcutaneous cuff was then dissected near the exit side of the catheter and the external portion was removed. Hemostasis was adequate. The area was irrigated thoroughly. Both incisions were closed using a stapler. Dressing was placed. The patient tolerated the procedure well, transferred to recovery room in stable condition. I was present for the entire procedure. Dictated By: Unruly Diaz MD, PhD Unruly Diaz MD, PhD ATTENDING JONAH/Katherine JOB: [id number] DOC: [id number] * Plan of Care - Peter Hickey OT - 06/16/2021 10:37 AM EDT Problem: OT - Dressing Goal: Lower Body Dressing Description: Pt will complete LE dressing tasks with modified independence for improved ability to complete self-care activities. Outcome: Progressing Toward Goal Problem: OT - Cognition Goal: Cognition Home Maintenance Description: Pt will complete simulated home maintenance task (medication management, finance management, etc.) with supervision to promote safety and success at discharge destination. Outcome: Progressing Toward Goal Problem: OT - Endurance Goal: Endurance Functional Mobilty Around Home Description: Pt will complete distance needed for common household mobility. Outcome: Progressing Toward Goal Problem: OT - Other Goal: Energy Conservation Description: Pt will follow energy conservation techniques appropriately 100% of the time during ADLs and functional mobility to conserve energy and maximize functional performance. Outcome: Progressing Toward Goal * Plan of Care - Anthony Mallory, PT - 06/15/2021 12:05 PM EDT Problem: PT - Balance/Coordination/Neuro Re-Education Goal: Standing Dynamic/Static Balance Description: Pt will perform standing balance tasks for 10 minutes with standby assistance with least restrictive device in order to improve functional mobility and safety with standing tasks. Outcome: Ongoing Problem: PT - Mobility Goal: Ambulation Description: Pt will ambulate 150 feet with least restrictive device with standby assistance to improve ability to navigate home environment. Outcome: Ongoing Problem: PT - Transfers Goal: Sit <-> Stand Description: Pt will perform sit to/from stand transfers with standby assistance with least restrictive device in order to improve functional mobility and safety. Outcome: Ongoing Goal: Strength/ROM Description: Pt will perform 2 sets of 15 repetitions of lower bilateral extremity exercises with standby assistance in order to improve strength, maintain ROM, necessary for functional mobility. Outcome: Ongoing * Plan of Care - MARIA TERESA Santos - 06/15/2021 11:52 AM EDT Nutrition Plan of Care: 1. Continue current diet order. 2. Will provide any Nepro (425 kcal, 19 g PRO each) twice daily with Lunch and Dinner to prevent weight loss. 3. Monitor for significant weight changes. 4. Monitor and encourage po intakes with goal of average po being 75-100%. 5. oracle technical architect to follow. * Plan of Care - Diana Shaikh RN - 06/14/2021 4:48 PM EDT Problem: Patient Care Overview Goal: Plan of Care Review Outcome: Ongoing Goal: Individualization & Mutuality Outcome: Ongoing Goal: Discharge Needs Assessment Outcome: Ongoing Goal: Interdisciplinary Rounds/Family Conf Outcome: Ongoing Problem: Fall/Trauma/Injury Risk (Adult) Goal: Fall/Trauma/Injury Risk: Absence of Trauma/Injury/Falls Description: Patient will demonstrate the desired outcomes. Outcome: Ongoing Goal: Knowledge of risk factors/behavior modification Description: Knowledge of risk factors/behavior modification for fall/injury prevention Outcome: Ongoing * Plan of Care - Mirna Blackwood PT - 06/13/2021 1:31 PM EDT Problem: PT - Balance/Coordination/Neuro Re-Education Goal: Standing Dynamic/Static Balance Description: Pt will perform standing balance tasks for 10 minutes with standby assistance with least restrictive device in order to improve functional mobility and safety with standing tasks. Outcome: Ongoing Problem: PT - Mobility Goal: Ambulation Description: Pt will ambulate 150 feet with least restrictive device with standby assistance to improve ability to navigate home environment. Outcome: Ongoing Goal: Stairs Description: Pt will ascend/descend 12 stairs with railings with standby assistance with least restrictive device to improve ability to perform functional mobility necessary in recommended discharge environment. Outcome: Ongoing Problem: PT - Transfers Goal: Sit <-> Stand Description: Pt will perform sit to/from stand transfers with standby assistance with least restrictive device in order to improve functional mobility and safety. Outcome: Ongoing Goal: Strength/ROM Description: Pt will perform 2 sets of 15 repetitions of lower bilateral extremity exercises with standby assistance in order to improve strength, maintain ROM, necessary for functional mobility. Outcome: Ongoing * Plan of Care - Colleen Butt OT - 06/13/2021 1:11 PM EDT Problem: OT - Dressing Goal: Lower Body Dressing Description: Pt will complete LE dressing tasks with modified independence for improved ability to complete self-care activities. Outcome: Ongoing Problem: OT - ADLs Goal: Grooming Description: Pt will complete grooming in standing with modified independence for improved ability to safely complete ADLs. Outcome: Ongoing Goal: Bathing Description: Pt will perform full body bathing routine with standby assistance while seated and standing for improved ability to complete self-care activities. Outcome: Ongoing Problem: OT - Cognition Goal: Cognition Home Maintenance Description: Pt will complete simulated home maintenance task (medication management, finance management, etc.) with supervision to promote safety and success at discharge destination. Outcome: Ongoing Problem: OT - Endurance Goal: Endurance Functional Mobilty Around Home Description: Pt will complete distance needed for common household mobility. Outcome: Ongoing Problem: OT - Other Goal: Energy Conservation Description: Pt will follow energy conservation techniques appropriately 100% of the time during ADLs and functional mobility to conserve energy and maximize functional performance. Outcome: Ongoing * Nursing Notes - Shalini Womakc RN - 06/13/2021 8:56 AM EDT Messaged MD Murillo: pt BP this AM 188/89 MAP 128 HR 82, order says to notify if above 180, thanks * Nursing Notes - Ida Johnson RN - 06/12/2021 11:05 AM EDT Secure chatted Dr. Murillo Ia there, this patient is complaining of severe itching on his back. Inoticed a rash this morning and forgot to mention it, and he has some on his right lateral/posterior thigh too. Can you do maybe a cream? Ida Johnson RN * Nursing Notes - Vivi Barron RN - 06/11/2021 11:47 PM EST On admission to [facility], from outside facility a dual RN initial assessment of skin condition was performed by Vivi Barron RN and Siobhan Almazan. Skin Assessment: Skin within defined limits:Yes Diomedes Score: 17 LDA Added:No Vivi Barron RN * Certification - Peter Gonzalez MD - 06/11/2021 11:34 PM EST I certify that this patient requires inpatient services at this time. I anticipate the expected length of stay will include at least two midnights. Inpatient services are due to the following medicalconcerns encephalopathy. Plans for post hospitalization care will be discharge to home. [facility]* Plan of Care - Alden Urena, PT - 06/20/2021 3:11 PM EDT Problem: PT - Balance/Coordination/Neuro Re-Education Goal: Standing Dynamic/Static Balance Description: Pt will perform standing balance tasks for 10 minutes with standby assistance with least restrictive device in order to improve functional mobility and safety with standing tasks. Outcome: Progressing Toward Goal Problem: PT - Mobility Goal: Ambulation Description: Pt will ambulate 150 feet with least restrictive device with standby assistance to improve ability to navigate home environment. Outcome: Progressing Toward Goal Goal: Stairs Description: Pt will ascend/descend 12 stairs with railings with standby assistance with least restrictive device to improve ability to perform functional mobility necessary in recommended discharge environment. Outcome: Progressing Toward Goal Problem: PT - Transfers Goal: Sit <-> Stand Description: Pt will perform sit to/from stand transfers with standby assistance with least restrictive device in order to improve functional mobility and safety. Outcome: Progressing Toward Goal Goal: Strength/ROM Description: Pt will perform 2 sets of 15 repetitions of lower bilateral extremity exercises with standby assistance in order to improve strength, maintain ROM, necessary for functional mobility. Outcome: Progressing Toward Goal [facility]03-21-2022 Note* Brief Op Note - Unruly Diaz MD, PhD - 06/20/2021 8:43 AM EDT Андрей Nickerson ([id number]) PRE OPERATIVE DIAGNOSIS Status post kidney transplant [Z94.0] POST OPERATIVE DIAGNOSIS Post-Op Diagnosis Codes: * Status post kidney transplant [Z94.0] PROCEDURE PERFORMED Procedure(s) (LRB): CAPD REMOVAL (N/A) PRIMARY CLOSURE Yes INTRAOPERATIVE FINDINGS No significant abnormalities SURGEON Surgeon(s) and Role: * Unruyl Diaz MD, PhD - Primary ANESTHESIOLOGIST Anesthesiologist: Jaylon Bennett MD, PhD Boiler Shop Supervisor Assisting: Brissa Raines DO SURGICAL STAFF Supervisor Reactor Fueling: Sp Flanagan RN Scrub Person: Mary Holguin; Shamir Ashley Resident Assisting: Tiffanie Brown MD COMPLICATIONS None ESTIMATED BLOOD LOSS Minimal SPECIMENS No specimen sent * No specimens in log * Unruly Diaz MD, PhD June 20, 2021 8:43 AM [facility] Work Phone: [phone]) 397-179603-18-2022 Note* Treatment Plan - Madie Armas APRN- ENGINE SETTER - 06/17/2021 3:00 PM EDT Patient was NOT seen at bedside today as he was in OR for Peritoneal dialysis catheter removal. Chart reviewed including blood glucose flowsheet. Yesterday the patient's blood glucoses ranged 118-252, with a total daily dose of 76 units of insulin. Received half his basal dose last night d/t NPO status per primary team. Will increase back up tonight. Expect hyperglycemia with 4 mg dexamethasone given in OR. Strictly cover all carbs. Insulin recommendations for today: Basal: Insulin glargine: 40 units at bedtime Prandial: Insulin lispro: 1 unit per 4 gram carbs qachs & prn Correction: Insulin lispro: 1 unit(s) per every 25 mg/dL above 150 mg/dL qachs Thank you for this consult, we will continue to follow. DANIEL Herrera [facility] Surgical operation note* Awa Camacho RN - 06/17/2021 1:25 PM EDT VSS. Sats 98% on RA. Alert and oriented. abd dsgs D&I. No c/o pain or nausea. ASA PO given per order. [facility] NATI Giles [facility]WR [facility] Note* Awa Camacho RN - 06/17/2021 1:25 PM EDT VSS. Sats 98% on RA. Alert and oriented. abd dsgs D&I. No c/o pain or nausea. ASA PO given per order. Report to NATI Giles 10WR [facility]* Plan of Care - Tiffanie Brown MD - 06/17/2021 12:27 PM EDT Transplant Surgery Plan of Care Please keep the post-operative dressing in place for 48 hours post op. The dressings can them be removed. No soaking the incisions in a tub or pool for 4-6 weeks or as instructed to do so. Elliot will need to be removed 2 weeks post-operatively. The patient can reach out to the Transplant Surgery clinic with questions or concerns after discharge. Tiffanie Brown MD Department of General Surgery Pager: [phone] [facility]03-18-2022 Note* Op Note - Unruly Diaz MD, PhD - 06/17/2021 12:00 PM EDT Operative Report DATE PERFORMED: 06/17/2021 PREOPERATIVE DIAGNOSIS: Status post kidney transplantation. No need for dialysis. POSTOPERATIVE DIAGNOSIS: Status post kidney transplantation. No need for dialysis. PROCEDURE: Removal of peritoneal dialysis catheter. ANESTHESIA: General. SURGEON(S): Unruly Diaz MD, PhD FAMILY RESOURCE COORDINATOR: Dr. Stephanie Moreno ESTIMATED BLOOD LOSS: Minimal. COMPLICATIONS: None. DRAINS: None. DISPOSITION: To recovery room in stable condition. STATEMENT OF MEDICAL NECESSITY: Mr. Nickerson is a 60-year-old male who is status post successful kidney transplantation. The patient does not need dialysis therefore was scheduled for removal of peritoneal dialysis catheter. The patient understood the risk of procedure and informed consent was obtained. DESCRIPTION OF PROCEDURE: The patient was taken to the operating room, placed supine on the operating table. General anesthesia was administered successfully. Anterior abdominal wall was prepared and draped in the usual sterile fashion. A small incision was made left to the umbilicus in the scar of his previous incision. Dissection was carried down. The CAPD catheter was identified. The catheter was fully entered into the peritoneal cavity and the cuff in the properitoneal space was dissected free, and the intraperitoneal segment of the catheter was removed. The opening in the peritoneum fascia was closed using 2 stitches of #1 Surgilon. The subcutaneous cuff was then dissected near the exit side of the catheter and the external portion was removed. Hemostasis was adequate. The area was irrigated thoroughly. Both incisions were closed using a stapler. Dressing was placed. The patient tolerated the procedure well, transferred to recovery room in stable condition. I was present for the entire procedure. Dictated By: Unruly Diaz MD, PhD Unruly Diaz MD, PhD ATTENDING JONAH/Katherine JOB: [id number] DOC: [id number] [facility]03-17-2022 Note* Plan of Care - Peter Hickey, OT - 06/16/2021 10:37 AM EDT Problem: OT - Dressing Goal: Lower Body Dressing Description: Pt will complete LE dressing tasks with modified independence for improved ability to complete self-care activities. Outcome: Progressing Toward Goal Problem: OT - Cognition Goal: Cognition Home Maintenance Description: Pt will complete simulated home maintenance task (medication management, finance management, etc.) with supervision to promote safety and success at discharge destination. Outcome: Progressing Toward Goal Problem: OT - Endurance Goal: Endurance Functional Mobilty Around Home Description: Pt will complete distance needed for common household mobility. Outcome: Progressing Toward Goal Problem: OT - Other Goal: Energy Conservation Description: Pt will follow energy conservation techniques appropriately 100% of the time during ADLs and functional mobility to conserve energy and maximize functional performance. Outcome: Progressing Toward Goal [facility]03-16-2022 Note* Plan of Care - Anthony Mallory, PT - 06/15/2021 12:05 PM EDT Problem: PT - Balance/Coordination/Neuro Re-Education Goal: Standing Dynamic/Static Balance Description: Pt will perform standing balance tasks for 10 minutes with standby assistance with least restrictive device in order to improve functional mobility and safety with standing tasks. Outcome: Ongoing Problem: PT - Mobility Goal: Ambulation Description: Pt will ambulate 150 feet with least restrictive device with standby assistance to improve ability to navigate home environment. Outcome: Ongoing Problem: PT - Transfers Goal: Sit <-> Stand Description: Pt will perform sit to/from stand transfers with standby assistance with least restrictive device in order to improve functional mobility and safety. Outcome: Ongoing Goal: Strength/ROM Description: Pt will perform 2 sets of 15 repetitions of lower bilateral extremity exercises with standby assistance in order to improve strength, maintain ROM, necessary for functional mobility. Outcome: Ongoing [facility]03-16-2022 Note* Plan of Care - MARIA TERESA Santos - 06/15/2021 11:52 AM EDT Nutrition Plan of Care: 1. Continue current diet order. 2. Will provide any Nepro (425 kcal, 19 g PRO each) twice daily with Lunch and Dinner to prevent weight loss. 3. Monitor for significant weight changes. 4. Monitor and encourage po intakes with goal of average po being 75-100%. 5. oracle technical architect to follow. [facility]03-15-2022 Note* Plan of Care - Diana Shaikh RN - 06/14/2021 4:48 PM EDT Problem: Patient Care Overview Goal: Plan of Care Review Outcome: Ongoing Goal: Individualization & Mutuality Outcome: Ongoing Goal: Discharge Needs Assessment Outcome: Ongoing Goal: Interdisciplinary Rounds/Family Conf Outcome: Ongoing Problem: Fall/Trauma/Injury Risk (Adult) Goal: Fall/Trauma/Injury Risk: Absence of Trauma/Injury/Falls Description: Patient will demonstrate the desired outcomes. Outcome: Ongoing Goal: Knowledge of risk factors/behavior modification Description: Knowledge of risk factors/behavior modification for fall/injury prevention Outcome: Ongoing [facility]03-15-2022 Hospital Discharge instructions* Discharge Instructions* Claire Cabrales RN - 06/14/2021 8:39 AM EDT Patient Experience Survey Reminder You may receive a survey in the mail within a few weeks regarding your hospitalization. This helps us to improve the care and services we provide at [facility]. We truly appreciate you taking the time to fill this out. We particularly welcome any specific comments you may have (good or bad!) regarding [facility] so that we may use them to continue to strive towards excellence for our patients. 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 Hospital Plan: Basal: Insulin glargine: 40 units at bedtime Prandial: Insulin lispro: 1 unit per 6 gram carbs qachs & prn Correction: Insulin lispro: 1 unit(s) per every 25 mg/dL above 150 mg/dL qachs 2. Discharge Plan: Please call on day of d/c for definitive recs. Please see [employer],under IM Consult Serv Endocrine/Diabetes - Team 2 Diab Consults for provider on day of discharge. Tentative discharge plan: (Please use the Diabetes Discharge Order Set to order medications and supplies) Tandem Insulin Pump with Control IQ, Dexcom CGM 3. Follow up needed: local endo in 2-4 weeks 4. Education: Follow-up with endo for insulin pump education 5. Will review glucoses and discuss with Dr Mohan Thank you for allowing us to participate in your patient's care. If you have questions please checkon [employer], under IM Consult Serv, Endocrine/Diabetes, and call the person listed for Team 2 as directed Diabetes consult: Андрей Nickerson is a 60 y.o. male being seen for diabetes management consultat the request of the General Medicine Service, Dr Jase Murillo for Type 1 Diabetes Mellitus X50 years, uncontrolled. HPI: Андрей Nickerson is a 60 y.o. male with history CAD, HTN, hx of DM-1, hx of TIA, of renal tx 03/2021, DCed to SNF in Apr 2021 , found he has COVID-19 +ve in May s/p antibody infusion at that time, recently DCed home from SNF to home (with his parents). Admitted with increased confusion and weakness. Reason for Endocrinology-Diabetes Consult: Glucose regulation Current inpatient diabetes medications at time of initial consult: Lantus 40 units at bedtime, Lispro 1:8 CC, 1:25 > 150 SS Diabetes History: Type of Diabetes: Type 1 Diabetes Mellitus (T1D) Date of diagnosis: Age 10 Outpatient physician: Dr. Seth Low, endocrine Diabetes Complications: retinopathy and nephropathy s/p renal transplant Date of most recent dilated eye exam: 04/2021 DKA occurrences: 0 Home blood glucoses: He is checking his blood sugars using Dexcom CGM, however has not been wearingsince admission to SNF. Fastin-100 Hypoglycemia: Denies Home diabetes medications: Basal: 1.5 units/hour Prandial: 1 unit per 4 grams Correction: 1 unit per 25 mg/dl above 150 mg/dl Cholesterol Medication: atorvastatin Home diet/meal plan: Eating less carbs for weight loss Hemoglobin A1c this admission: Lab Results Component Value Date HGBA1C 5.9 (H) 06/13/2021 HGBA1C 8.5 (H) 11/13/2011 HGBA1C 8.2 (H) 06/04/2007 Inpatient Glucoses: Date Daily glucose review TDD Basal Prandial/ Correction 06/13/2021 180>294>355>236>166 58 40 18 Diet: Current Diet Orders Procedures DIET CARB CONTROLLED Standing Status: Standing Number of Occurrences: 1 PMH: He has a past medical history of CAD (coronary artery disease), HTN (hypertension), Myocardialinfarct, old (2007), Nephropathy, Pancreatitis, Retinopathy, TIA (transient ischemic attack), and 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 SOCIAL HISTORY Social History Tobacco Use Smoking status: Current Some Day Smoker Packs/day: 0.25 Years: 30.00 Pack years: 7.50 Types: Cigarettes Smokeless tobacco: Never Used Substance Use Topics Alcohol use: Yes Comment: rare Drug use: No FAMILY HISTORY His family history includes Heart Disease - Other in his mother; Hypertension in his father and mother. REVIEW OF SYSTEMS Constitutional: Negative for malaise, weight change, fatigue, fever, chills. Eyes: Negative for double vision, blurring, tearing, loss of vision Cardiovascular: Negative for palpitations, chest pain, claudication, edema Respiratory: Negative for shortness of breath, dyspnea on exertion, cough Gastrointestinal: Negative for abdominal pain, nausea, vomiting, diarrhea, constipation. Musculoskeletal: Negative for myalgias, joint pain, decreased range of motion. Integumentary: Negative for lesions, rashes, sores, discoloration. Neurological: Negative for headache, dizziness, or neuropathic pain Endocrine: Negative for heat/cold intolerance, dry mouth or polydipsia, polyphagia, polyuria Psychiatric: Negative for depression, anxiety PHYSICAL EXAM General/Constitutional: male, who looks his stated age of 60 y.o.. No acute distress. Vital Signs: BP 129/62 (BP Location: Right arm, BP Position: Lying) Pulse 68 Temp 97.8 F (36.6 C) (Oral) Resp 18 Ht 1.778 m (5' 10) Wt 111.1 kg (245 lb) SpO2 98% BMI 35.15 kg/m Smoking Status Current Some Day Smoker , Wt Readings from Last 2 Encounters: 06/11/21 111.1 kg (245 lb) 05/11/21 116.4 kg (256 lb 11.2 oz) , Body mass index is 35.15 kg/m . O2 Sat (%): [94 %-99 %] 98 % O2 Device: room air Head: Normocephalic and atraumatic. Eyes: Sclerae and conjunctiva are clear. Neck: Supple, non-tender. Cardiac: Regular rhythm, normal rate. Normal S1, S2. Trace peripheral edema. Pulmonary/Chest: Lungs are clear to ascultation bilaterally with normal respiratory effort. No wheezes, rhonchi or rales. Abdominal: Non-distended, normoactive bowel sounds. Soft, non-tender. No lipohypertrophy/lipodystrophy. Musculoskeletal: No bony deformities, normal muscle mass and tone Extremities: No cyanosis or clubbing Periperal Vascular Exam: 2+ dorsalis pedis pulses. Neurological: Conscious, alert and oriented. Skin: Skin is warm and dry. No ulcers or lesions on the feet and nails are intact. Psychiatric: Appropriate mood and affect for his clinical situation. LABS Lab Results Component Value Date HGBA1C 5.9 (H) 06/13/2021 HGBA1C 8.5 (H) 11/13/2011 HGBA1C 8.2 (H) 06/04/2007 Lab Results Component Value Date CHOLESTEROL 90 06/02/2021 TRIG 90 06/02/2021 HDL 38.0 06/02/2021 LDLCALC 34 06/02/2021 CREATININE, SERUM, MANUAL ENTER Date Value Ref Range Status 06/09/2021 3.10 Final Creatinine Date Value Ref Range Status 06/14/2021 2.62 (H) 0.70 - 1.30 mg/dL Final Lab Results Component Value Date MICROALBUMIN 417.0 11/13/2011 Lab Results Component Value Date ALT 14 06/12/2021 ALT 20 06/09/2021 AST 11 06/12/2021 AST 14 06/09/2021 Lab Results Component Value Date TSH 1.449 06/12/2021 TSH 0.8 04/27/2021 TSH 0.862 11/13/2011 SARS-COV-2 Date Value Ref Range Status 04/13/2021 NOT DETECTED NOT DETECTED Final Comment: [facility] Negative results do not preclude SARS-CoV-2 infection and should not be used as the sole basis for treatment or other patient management decisions. Optimum specimen types and timing for peak viral levels during infections caused by SARS-CoV-2 has not been determined. The possibility of a false negative result should especially be considered if the patient's recent exposures or clinical presentation suggest that SARS-CoV-2 infection is probable, and diagnostic tests for other causes of illness (e.g., other respiratory illness) are negative. Collection of a new specimen and re-testing may be necessary if the patient is critically ill or clinically deteriorating. 03/27/2021 NOT DETECTED NOT DETECTED Final Comment: [facility] Negative results do not preclude SARS-CoV-2 infection and should not be used as the sole basis for treatment or other patient management decisions. Optimum specimen types and timing for peak viral levels during infections caused by SARS-CoV-2 has not been determined. The possibility of a false negative result should especially be considered if the patient's recent exposures or clinical presentation suggest that SARS-CoV-2 infection is probable, and diagnostic tests for other causes of illness (e.g., other respiratory illness) are negative. Collection of a new specimen and re-testing may be necessary if the patient is critically ill or clinically deteriorating. 03/27/2021 NOT DETECTED NOT DETECTED Final Comment: [facility] Negative results do not preclude SARS-CoV-2 infection and should not be used as the sole basis for treatment or other patient management decisions. Optimum specimen types and timing for peak viral levels during infections caused by SARS-CoV-2 has not been determined. The possibility of a false negative result should especially be considered if the patient's recent exposures or clinical presentation suggest that SARS-CoV-2 infection is probable, and diagnostic tests for other causes of illness (e.g., other respiratory illness) are negative. Collection of a new specimen and re-testing may be necessary if the patient is critically ill or clinically deteriorating. This test was performed using isothermal nucleic acid amplification technology for the qualitative detection of SARS-CoV-2 nucleic acid. The test has been authorized by the FDA under an emergency useauthorization for use by authorized laboratories. Cardiac echo: EF = Results for orders placed during the hospital encounter of 08/11/20 ECHOCARDIOGRAM 08/11/2020 (Final) Interpretation Summary Left ventricle demonstrates remodeling, with increased septal greater than posterior wall thickness. Normal LVEF >70%. Mild LV outflow acceleration without significant resting gradient. Diastolic function is abnormal and consistent with impaired relaxation (grade I). Probably normal left atrial pressure. Right ventricular size and function are normal. No hemodynamically significant valve disease apparent. No prior for comparison. Associated attestation - Aminata Mohan MBBS, PhD - 06/14/2021 6:09 PM EDT Attending: I interviewed and examined the patient on 06/14/2021. Care plan discussed. I confirm history, examination, and medical decision-making of Dr. Violet Joe. Patient has renal transplant for type 1 DM uncontrolled on an insulin pump. Will adjust his insulindose and likely needs new pump setting. Team will follow. [facility] Work Phone: 1(706) 323-310903-15-2022 Consult note* Violet Joe MD - 06/14/2021 8:38 AM EDTAssociated Order(s): IP CONSULT TO ENDOCRINOLOGY - DIABETES [facility] Inpatient Diabetes Consults - Initial Consult Note Assessment Uncontrolled Type 1 Diabetes Mellitus with microvascular complications of nephropathy s/p renal transplant (03/2021) and retinopathy Admitted with encephalopathy History of CAD, Hypertension, TIA Barriers to Diabetes Self-Care: Unknown Plan 1. Hospital Plan: Basal: Insulin glargine: 40 units at bedtime Prandial: Insulin lispro: 1 unit per 6 gram carbs qachs & prn Correction: Insulin lispro: 1 unit(s) per every 25 mg/dL above 150 mg/dL qachs 2. Discharge Plan: Please call on day of d/c for definitive recs. Please see [employer] [facility] [employer],under IM Consult Serv Endocrine/Diabetes - Team 2 Diab Consults for provider on day of discharge. Tentative discharge plan: (Please use the Diabetes Discharge Order Set to order medications and supplies) Tandem Insulin Pump with Control IQ, Dexcom CGM 3. Follow up needed: local endo in 2-4 weeks 4. Education: Follow-up with endo for insulin pump education 5. Will review glucoses and discuss with Dr Mohan Thank you for allowing us to participate in your patient's care. If you have questions please checkon [employer], under IM Consult Serv, Endocrine/Diabetes, and call the person listed for Team 2 as directed Diabetes consult: Андрей Nickerson is a 60 y.o. male being seen for diabetes management consultat the request of the General Medicine Service, Dr Jase Murillo for Type 1 Diabetes Mellitus X50 years, uncontrolled. HPI: Андрей Nickerson is a 60 y.o. male with history CAD, HTN, hx of DM-1, hx of TIA, of renal tx 03/2021, DCed to SNF in Apr 2021 , found he has COVID-19 +ve in May s/p antibody infusion at that time, recently DCed home from SNF to home (with his parents). Admitted with increased confusion and weakness. Reason for Endocrinology-Diabetes Consult: Glucose regulation Current inpatient diabetes medications at time of initial consult: Lantus 40 units at bedtime, Lispro 1:8 CC, 1:25 > 150 SS Diabetes History: Type of Diabetes: Type 1 Diabetes Mellitus (T1D) Date of diagnosis: Age 10 Outpatient physician: Dr. Seth Low, endocrine Diabetes Complications: retinopathy and nephropathy s/p renal transplant Date of most recent dilated eye exam: 04/2021 DKA occurrences: 0 Home blood glucoses: He is checking his blood sugars using Dexcom CGM, however has not been wearingsince admission to SNF. Fastin-100 Hypoglycemia: Denies Home diabetes medications: Basal: 1.5 units/hour Prandial: 1 unit per 4 grams Correction: 1 unit per 25 mg/dl above 150 mg/dl Cholesterol Medication: atorvastatin Home diet/meal plan: Eating less carbs for weight loss Hemoglobin A1c this admission: Lab Results Component Value Date HGBA1C 5.9 (H) 06/13/2021 HGBA1C 8.5 (H) 11/13/2011 HGBA1C 8.2 (H) 06/04/2007 Inpatient Glucoses: Date Daily glucose review TDD Basal Prandial/ Correction 06/13/2021 180>294>355>236>166 58 40 18 Diet: Current Diet Orders Procedures DIET CARB CONTROLLED Standing Status: Standing Number of Occurrences: 1 PMH: He has a past medical history of CAD (coronary artery disease), HTN (hypertension), Myocardialinfarct, old (2007), Nephropathy, Pancreatitis, Retinopathy, TIA (transient ischemic attack), and 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 SOCIAL HISTORY Social History Tobacco Use Smoking status: Current Some Day Smoker Packs/day: 0.25 Years: 30.00 Pack years: 7.50 Types: Cigarettes Smokeless tobacco: Never Used Substance Use Topics Alcohol use: Yes Comment: rare Drug use: No FAMILY HISTORY His family history includes Heart Disease - Other in his mother; Hypertension in his father and mother. REVIEW OF SYSTEMS Constitutional: Negative for malaise, weight change, fatigue, fever, chills. Eyes: Negative for double vision, blurring, tearing, loss of vision Cardiovascular: Negative for palpitations, chest pain, claudication, edema Respiratory: Negative for shortness of breath, dyspnea on exertion, cough Gastrointestinal: Negative for abdominal pain, nausea, vomiting, diarrhea, constipation. Musculoskeletal: Negative for myalgias, joint pain, decreased range of motion. Integumentary: Negative for lesions, rashes, sores, discoloration. Neurological: Negative for headache, dizziness, or neuropathic pain Endocrine: Negative for heat/cold intolerance, dry mouth or polydipsia, polyphagia, polyuria Psychiatric: Negative for depression, anxiety PHYSICAL EXAM General/Constitutional: male, who looks his stated age of 60 y.o.. No acute distress. Vital Signs: BP 129/62 (BP Location: Right arm, BP Position: Lying) Pulse 68 Temp 97.8 F (36.6 C) (Oral) Resp 18 Ht 1.778 m (5' 10) Wt 111.1 kg (245 lb) SpO2 98% BMI 35.15 kg/m Smoking Status Current Some Day Smoker , Wt Readings from Last 2 Encounters: 06/11/21 111.1 kg (245 lb) 05/11/21 116.4 kg (256 lb 11.2 oz) , Body mass index is 35.15 kg/m . O2 Sat (%): [94 %-99 %] 98 % O2 Device: room air Head: Normocephalic and atraumatic. Eyes: Sclerae and conjunctiva are clear. Neck: Supple, non-tender. Cardiac: Regular rhythm, normal rate. Normal S1, S2. Trace peripheral edema. Pulmonary/Chest: Lungs are clear to ascultation bilaterally with normal respiratory effort. No wheezes, rhonchi or rales. Abdominal: Non-distended, normoactive bowel sounds. Soft, non-tender. No lipohypertrophy/lipodystrophy. Musculoskeletal: No bony deformities, normal muscle mass and tone Extremities: No cyanosis or clubbing Periperal Vascular Exam: 2+ dorsalis pedis pulses. Neurological: Conscious, alert and oriented. Skin: Skin is warm and dry. No ulcers or lesions on the feet and nails are intact. Psychiatric: Appropriate mood and affect for his clinical situation. LABS Lab Results Component Value Date HGBA1C 5.9 (H) 06/13/2021 HGBA1C 8.5 (H) 11/13/2011 HGBA1C 8.2 (H) 06/04/2007 Lab Results Component Value Date CHOLESTEROL 90 06/02/2021 TRIG 90 06/02/2021 HDL 38.0 06/02/2021 LDLCALC 34 06/02/2021 CREATININE, SERUM, MANUAL ENTER Date Value Ref Range Status 06/09/2021 3.10 Final Creatinine Date Value Ref Range Status 06/14/2021 2.62 (H) 0.70 - 1.30 mg/dL Final Lab Results Component Value Date MICROALBUMIN 417.0 11/13/2011 Lab Results Component Value Date ALT 14 06/12/2021 ALT 20 06/09/2021 AST 11 06/12/2021 AST 14 06/09/2021 Lab Results Component Value Date TSH 1.449 06/12/2021 TSH 0.8 04/27/2021 TSH 0.862 11/13/2011 SARS-COV-2 Date Value Ref Range Status 04/13/2021 NOT DETECTED NOT DETECTED Final Comment: [facility] Negative results do not preclude SARS-CoV-2 infection and should not be used as the sole basis for treatment or other patient management decisions. Optimum specimen types and timing for peak viral levels during infections caused by SARS-CoV-2 has not been determined. The possibility of a false negative result should especially be considered if the patient's recent exposures or clinical presentation suggest that SARS-CoV-2 infection is probable, and diagnostic tests for other causes of illness (e.g., other respiratory illness) are negative. Collection of a new specimen and re-testing may be necessary if the patient is critically ill or clinically deteriorating. 03/27/2021 NOT DETECTED NOT DETECTED Final Comment: [facility] Negative results do not preclude SARS-CoV-2 infection and should not be used as the sole basis for treatment or other patient management decisions. Optimum specimen types and timing for peak viral levels during infections caused by SARS-CoV-2 has not been determined. The possibility of a false negative result should especially be considered if the patient's recent exposures or clinical presentation suggest that SARS-CoV-2 infection is probable, and diagnostic tests for other causes of illness (e.g., other respiratory illness) are negative. Collection of a new specimen and re-testing may be necessary if the patient is critically ill or clinically deteriorating. 03/27/2021 NOT DETECTED NOT DETECTED Final Comment: [facility] Negative results do not preclude SARS-CoV-2 infection and should not be used as the sole basis for treatment or other patient management decisions. Optimum specimen types and timing for peak viral levels during infections caused by SARS-CoV-2 has not been determined. The possibility of a false negative result should especially be considered if the patient's recent exposures or clinical presentation suggest that SARS-CoV-2 infection is probable, and diagnostic tests for other causes of illness (e.g., other respiratory illness) are negative. Collection of a new specimen and re-testing may be necessary if the patient is critically ill or clinically deteriorating. This test was performed using isothermal nucleic acid amplification technology for the qualitative detection of SARS-CoV-2 nucleic acid. The test has been authorized by the FDA under an emergency useauthorization for use by authorized laboratories. Cardiac echo: EF = Results for orders placed during the hospital encounter of 08/11/20 ECHOCARDIOGRAM 08/11/2020 (Final) Interpretation Summary Left ventricle demonstrates remodeling, with increased septal greater than posterior wall thickness. Normal LVEF >70%. Mild LV outflow acceleration without significant resting gradient. Diastolic function is abnormal and consistent with impaired relaxation (grade I). Probably normal left atrial pressure. Right ventricular size and function are normal. No hemodynamically significant valve disease apparent. No prior for comparison. Associated attestation - Aminata Mohan MBBS, PhD - 06/14/2021 6:09 PM EDT Attending: I interviewed and examined the patient on 06/14/2021. Care plan discussed. I confirm history, examination, and medical decision-making of Dr. Violet Joe. Patient has renal transplant for type 1 DM uncontrolled on an insulin pump. Will adjust his insulindose and likely needs new pump setting. Team will follow. * Michelle Ward, - 06/13/2021 8:34 AM EDTAssociated Order(s): IP CONSULT TO NEUROLOGY NEUROLOGY CONSULTATION NOTE Date of service: June 13, 2021 Patient Name: Андрей Nickerson Consulting Provider: JERRI Pratt/[facility] : 1960 Reason for consult: encephalopathy, male with history CAD, HTN, hx of DM-1, hx of TIA, of renal tx03/2021, DCed to SNF in Apr 2021 , found he has COVID-19 +ve in May s/p antibody infusion at that time. presented with encephalopathy History of Present Illness Андрей Nickerson is a 60 y.o. male with PMH significant for Renal transplant 03/22 on tacro/cellcept, CAD, HTN, DM-1, glaucoma who presents for altered mental status. Patient presents with altered mental status. He underwent renal transplant in March and discharged to SNF in April. In May(while at SNF) he was diagnosed with COVID and was given antibody infusion. He was discharged home a few days ago, but family was concerned about his thinking which resulted in his admission here. He reports felling well today. He is able to give me a full account of his rehab stay and subsequent discharge home. Reports he has been confusing dates, but feels this was more due to difficulty orienting himself while admitted first to the hospital and then fci facility. He also notessince discharge to his parents house ( does not live with them typically) he has had some difficulties with walking - mostly thinks this is due to bilateral hip pain which is chronic but worsen with his long hospital/rehab course. Per report his mother feels he has been off since the transplant. Per recent phone encounter wifefelt he was more weak and fatigued then usual. He was having difficulty managing his medications and was unsure which medications he had placed in the pill box. Labs hear show elevated Tacrolimus level and hyperglycemia. TSH, B12, within normal limits. CTH at OSH did not show anything acute. 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 Past Surgical History: Procedure Laterality Date KIDNEY TRANSPLANT W/O RUBY NEPHRECTOMY N/A 03/27/2021 Laterality: N/A; Surgeon: Sharon Acuna MD; Location: [facility] MAIN OR CORONARY ANGIOPLASTY N/A 04/21/2011 Laterality: N/A; Surgeon: Ricardo Herman MD; Location: [facility] CATH CORONARY DRUG ELUTING STENT PLACEMENT N/A 04/21/2011 Laterality: N/A; Surgeon: Ricardo Herman MD; Location: [facility] CATH CORONARY STENT PLACEMENT 2005 x3 REMOVAL CATARACT (PEM) Family History Problem Relation Age of Onset Heart Disease - Other Mother Hypertension Mother Hypertension Father Colorectal Cancer Neg Hx Social History Socioeconomic History Marital status: Tobacco Use Smoking status: Current Some Day Smoker Packs/day: 0.25 Years: 30.00 Pack years: 7.50 Types: Cigarettes Smokeless tobacco: Never Used Substance and Sexual Activity Alcohol use: Yes Comment: rare Drug use: No Sexual activity: Yes Partners: Female No Known Allergies Medications Prior to Admission Medications Prescriptions Last Dose Informant Patient Reported? Taking? Dexcom G6 Sensor Misc Yes No Sig: Change Sensor every 14 days Patient reading blood sugar 12 times daily Dexcom G6 Transmitter Misc Yes No Sig: CHANGE EVERY 90 DAYS GLUCOSE MONITOR LANCETS PRESCRIPTION No No Sig: DM1 on Pump Glucagon, rDNA, (Glucagon Emergency) 1 MG Kit Yes No Sig: Inject 1 Dose as directed as needed (Low glucose levels.). Glucagon, rDNA, 1 MG IJ KIT No No Sig: by Subcutaneous route. Use as directed Patient taking differently: Inject 1 mg under the skin as needed for Low blood sugar. ONE TOUCH ULTRASOFT LANCETS XX MISC No No Si times daily Propylene Glycol (Systane Balance) 0.6 % Solution Yes No Sig: Place 1 drop in both eyes daily. Tamsulosin HCl 0.4 MG capsule Yes No Sig: Take 0.4 mg by mouth daily. acetaminophen 325 MG tablet No No Sig: Take 2 tablets by mouth every 6 hours as needed for Mild Pain or Pain (breakthrough). albuterol 108 (90 Base) MCG/ACT Aero Soln inhaler Yes No Sig: Inhale 1-2 puffs every 6 hours as needed for Shortness of Breath. atorvastatin (LIPITOR) 40 MG PO TABS Yes No Sig: take 1 Tab by mouth daily. clopidogrel (PLAVIX) 75 MG PO TABS Yes No Sig: take 1 Tab by mouth daily. docusate 100 MG capsule No No Sig: Take 1 capsule by mouth 2 times daily as needed for Constipation. Hold for loose stool glucose blood test strips (ONE TOUCH TEST STRIPS) STRP No No Sig: PT TESTING 6XS DAILY insulin aspart (NOVOLOG) 100 UNIT/ML SC SOLN No No Sig: Per pump - uses approximately 50-70 per day. mycophenolate mofetil (CELLCEPT) 250 MG capsule No No Sig: Take 2 capsules by mouth every 12 hours. Diagnosis Code: ICD 9:V42.0, ICD 10:Z94.0 - Kidney transplant. Date of Transplant: 03/27/2021. prednisoLONE acetate 1 % Suspension ophthalmic suspension Yes No Sig: Place 1 drop in both eyes 2 times daily. senna 8.6 MG tablet No No Sig: Take 1 tablet by mouth daily as needed for Constipation. sofosbuvir-velpatasvir 400-100 MG tablet No No Sig: Take 1 tablet by mouth daily. sulfamethoxazole-trimethoprim 800-160 MG per tablet No No Sig: Take 1 tablet by mouth every other day. tacrolimus (PROGRAF) 1 MG capsule No No Sig: Take 4 capsules by mouth daily every morning AND 3 capsules every evening. Take at 0800 AM [id number] PM. valGANciclovir 450 MG tablet No No Sig: Take 1 tablet by mouth every 48 hours. Facility-Administered Medications: None Vitals Temp: [97.3 F (36.3 C)-98.7 F (37.1 C)] 97.3 F (36.3 C) Pulse (Heart Rate): [74-91] 82 Resp Rate: [16] 16 BP: (138-188)/(60-89) 188/89 O2 Sat (%): [96 %-100 %] 97 % Body mass index is 35.15 kg/m . Physical Exam General Physical Exam General: NAD, lying comfortably in bed HENT: Normal oropharynx and mucosa. Normal external appearance of ears and nose. Fundoscopy: Optic discs without evidence of papilledema bilaterally CV/Chest: Regular rate and rhythm, normal S1S2 Lungs: No audible wheezing. Normal work of breathing. No accessory muscle use Abdomen: Non distended, non tender Extremities: Warm and well perfused. No appreciable edema, cyanosis or deformity. Skin: No rash. Normal palpation of skin. Musculoskeletal: No joint tenderness. Normal digits and nails by inspection. No clubbing. Neurologic Examination Mental status/Cognition: Alert;Oriented to person, place, year and president. Not to month (January). Able to spell WORLD forwards and backwards. Digit span 7. No ideomotor apraxia. 3/3 immediate recall. 2/3 at 5 minutes, 3/3 with cues. Follows 3-4 step cross body commands without difficultly. Somewhat tangential but able to redirect Speech/language: fluency intact, comprehension intact, repetition intact and naming intact Cranial nerves: CN II visual pratt full to confrontation CN III,IV, Pupils equal, round, reactive and with consensual response.. Extraocular movements intact CN V Facial sensation intact to light touch bilaterally in V1, V2, V3. CN VII Face, Smile, Eyebrow raise symmetric. Eye closure strength 5/5 bilaterally CN VIII Hearing intact to finger rub bilaterally and No nystagmus noted CN IX & X Soft palate elevates symmetrically in the midline. No dysarthria. CN XI Shoulder shrug strength 5/5 bilaterally CN XII Tongue protrudes midline Motor: Normal muscle bulk throughout. Tone is normal throughout. There is no pronator drift Mvmt Root Nerve Muscle Right Left Comments SA C5/6 Ax Deltoid 5 5 EF C5/6 Mc Biceps 5 5 EE C6/7/8 Rad Triceps 5 5 WF C6/7 Med FCR 5 5 WE C7/8 PIN ECU 5 5 F Ab C8/T1 U ADM/FDI 5 5 HF L1/2/3 Fem Illopsoas 4+ 4+ KE L2/3/4 Fem Quad 5 5 DF L4/5 D Peron Tib Ant 5 5 PF S1/2 Tibial Grc/April 5 5 Reflexes: Right Left Comments Pectoralis Biceps (C5/6) 1 1 Brachioradialis (C5/6) 1 1 Triceps (C6/7) 1 1 Patellar (L3/4) 0 0 Achilles (S1) 0 0 Reed Plantar Down Down Jaw jerk Sensation: Light touch Intact throughout Pin prick Temperature Diminished in bilateral legs to above the ankle Vibration Intact throughout Proprioception Coordination/Complex Motor: - Finger nose finger intact bilaterally - Heel to castellanos normal without ataxia bilaterally - rapid alternating movements without disdiadochokinesia bilaterally and finger tapping normal bilaterally - Gait: walks with assistance of walker but with this he has normal stride length and base width Labs Bun/Creat/Cl/CO2/Glucose: --/--/--/--/180 (06/13 801) Lab Results Component Value Date ALT 14 06/12/2021 AST 11 06/12/2021 GGT 29 06/30/2020 ALKPHOS 103 06/12/2021 BILITOTAL 0.5 06/12/2021 BILIDIRECT 0.1 06/12/2021 Imaging and Diagnostic studies CTH: mild bitemporal and cerebellar atrophy, otherwise unremarkable. Impression Андрей Nickerson is a 60 y.o. male with PMH significant for Renal transplant 03/22 on tacro/cellcept, CAD, HTN, DM-1, glaucoma who presents for altered mental status. CTH from OSH did show some temporal/cerebellar atrophy, but otherwise was unremarkable. He did haveslight tangentiality, but is otherwise is cognitively intact on bedside examination. Perhaps he hada hit to his processing from recent surgery/anesthesia vs tacrolimus toxicity vs delirium(not current). He does not classify as MCI or dementia based on our examination. Recommendations - Agree with MRI Brain without contrast - Would add Folate to already obtained labs Patient seen, examined and discussed with Dr. Garcia. Thank you for the opportunity to take part in the care of this patient. If you have any further questions, please contact the neurology consult A resident. Michelle Ward, DO PGY-4, Neurology [facility] Associated attestation - Saima Garcia MD - 06/13/2021 5:52 PM EDT Attending note: I performed a history and physical and neurological exam on this patient, and discussed the management with the resident. I reviewed the resident's note and agree with the documented findings and plan of care. Mr. Nickerson is a 60 year old pleasant man who underwent renal transplant 03/2021 now on tacrolimus and cellcept. He was discharged to SNF post transplant but then had mild URI sx and was diagnosed with COVID, rec'd antibody infusion. Family concerned about his cognition. Afebrile. At bedside he is disoriented to month (states July to me, January to resident), knows year and place. Able to conversefor 5 minutes on his thoughts on the situation in [facility]. Also discusses his history of hip pain. Able to do 4 step crossed commands and fully attentive with good memory. Neuro exam nonfocal except has mild hip flex weak, asymmetric quads (has a crossed quad on R) and has some neuropathy in feet to temp. Romberg negative. Gait is antalgic and slowed with walker due to hip pain. B12 levels ok, tsh ok. Creat elevated. Tacrolimus level slightly elev Has some mild deficits mainly in orientation and a bit tangential, which could be related to prio rcovid, tacrolimus, surgery with exposure to anesthesia, and mcfp effects from renal dysfunction. Does not meet criteria for mci. Recommended mri brain, can add rpr and folate for reversible dementia labs, can follow up with neurocognitive clinic. We will follow up these studies. Saima Garcia MD Malware Analyst of Neurology * Obinna Villarreal MD - 06/12/2021 5:16 PM EDTAssociated Order(s): IP CONSULT TO NEPHROLOGY - TRANSPLANT I saw and independently evaluated the patient on 06/12/2021. I have discussed the case with the teamand formulated the plan of care with them and agree with the findings, examination and plan as documented in the note. Laura Wynn MD Malware Analyst of Clinical Medicine Pager - [phone] [facility] NEPHROLOGY INPATIENT CONSULT NOTE Reason for Consultation: IS managment Referring Provider: JERRI Pratt/[facility] Hospital Day: 1 SUBJECTIVE Андрей Nickerson is a 60 y.o. male with past medical history of CAD, HTN, hx of DM-1, hx of TIA, of renal tx 03/2021, presented to [facility] on 06/11/2021 with c/o confusion. Patient presents to the hospital s/p recent discharge from SNF home where his family have noted oddbehavior and waxing and waning level of confusion and periods of unintelligible conversation just does not appear to be himself ever since the transplant. Per his mother he was taken to the ER withunremarkable workup or concerns and subsequently discharged. To date infectious work and head CT have been unrevealing, he denies confusion and feels like his family are blowing it up, who doesn'tget the date wrong, especially when you've bene the hospital for long, and get the president wrong I know who he is let's just say I disagree with him Denies fever, prior ms changes Reports prior very low glucoses in 50-70 with insulin pump, no episodes of unconsciousness Current work-up to date has so far been unrevealing. Renal function otherwise stable. Noted for supratherapeutic levels. He otherwise denies chest pain, sob, f/c/n, n/v, changes in bowel or urine. Review of Systems: Negative except for as stated in history of present illness ASSESSMENT AND PLAN: Андрей Nickerson is a 60 y.o. male with past medical history of CAD, HTN, hx of DM-1, hx of TIA, of renal tx 03/2021, presented to [facility] on 06/11/2021 with c/o confusion.. Nephrology is consulted for IS therapy in recently transplanted kidney patient. Impression: ESRD s/p Kidney transplant 03/2021 at risk donor On Chronic Immunosuppression Tacrolimus 4 and 3, MMF 500 BID Azotemia without Uremia NAGMA Anemia of CKD Hepatitis C s/p transplant on sofosbuvir-velpatasvir ?Encephalopathy - possible 2/2 tacro toxicity; continue work-up as pr primary will plan to adjust regimen based on repeat tacro level T1DM CAD Recent COVID19 infection Recommendations: No indication for FISH DRIER; serum creatninen continue to trend downwards s/p transplant IS Tacrolimus 4 and 3, MMF 500 BID Tac elevated, goal would be around 6-8 (almost 3 months, recovering infection, slow graft function). Overnight dose held. Order a random trough. Will resume Tac depending on levels but likely will need 3/3. Supratherpaeutic Tac can also cause neurological manifestations. Unclear etiology of confusion. To us he appeared well oriented and answered all questions appropriately. It will be good to touchbase with family and understand the baseline. Obtain EBV PVR for workup completion. CT head neg. If continues to have concerns regarding neurological status then LP and neurology consult would be considered (subacute) On Epclusa for HCV +ve Kidney Resume home Bp meds, if he was not on any antiHT meds then can start on nifedipine 30 mg daily. Continue Bactrim PPx Continue Valcyte Daily chem6 BID Please obtain, phos, ca, albumin 3x weekly while here Accurate I&O Rest of care as per primary Renal protective measures: Please renally dose medications; Avoid nephrotoxic medications (NSAID, IV contrast); Avoid ACEi and ARBs in the setting of DEION; Maintain MAP > 65; Low Na, K, phos and protein diet These recommendations are not finalized until signed by an attending staff physician. Thank you for allowing us to participate in the care of this patient. Plan discussed with attending. Please call with any questions or concerns. Please contact us via web-exchange - Nephrology & Transplant Medicine - Transplant Fellow. 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 Past Surgical History: Past Surgical History: Procedure Laterality Date KIDNEY TRANSPLANT W/O RUBY NEPHRECTOMY N/A 03/27/2021 Laterality: N/A; Surgeon: Sharon Acuna MD; Location: [facility] MAIN OR CORONARY ANGIOPLASTY N/A 04/21/2011 Laterality: N/A; Surgeon: Ricardo Herman MD; Location: [facility] CATH CORONARY DRUG ELUTING STENT PLACEMENT N/A 04/21/2011 Laterality: N/A; Surgeon: Ricardo Herman MD; Location: [facility] CATH CORONARY STENT PLACEMENT 2006 x3 REMOVAL CATARACT (PEM) Family History: Family History Problem Relation Age of Onset Heart Disease - Other Mother Hypertension Mother Hypertension Father Colorectal Cancer Neg Hx No Known Allergies Social History Socioeconomic History Marital status: Spouse name: Not on file Number of children: Not on file Years of education: Not on file Highest education level: Not on file Occupational History Not on file Tobacco Use Smoking status: Current Some Day Smoker Packs/day: 0.25 Years: 30.00 Pack years: 7.50 Types: Cigarettes Smokeless tobacco: Never Used Substance and Sexual Activity Alcohol use: Yes Comment: rare Drug use: No Sexual activity: Yes Partners: Female Other Topics Concern Not on file Social History Narrative Not on file Social Determinants of Health Financial Resource Strain: Not on file Food Insecurity: Not on file Transportation Needs: Not on file Physical Activity: Not on file Stress: Not on file Social Connections: Not on file Intimate Partner Violence: Not on file Housing Stability: Not on file Scheduled Medications atorvastatin 40 mg Oral Daily clopidogrel 75 mg Oral Daily sofosbuvir-velpatasvir 1 tablet Oral Daily heparin 5,000 Units Subcutaneous Q8H insulin glargine injection 34 Units Subcutaneous QHS insulin lispro Subcutaneous 4x daily w/meals, HS mycophenolate mofetil 500 mg Oral Q12HNS prednisoLONE acetate 1 drop Both Eyes BID senna 8.6 mg Oral Daily sulfamethoxazole-trimethoprim 1 tablet Oral Q2 days tacrolimus 3 mg Oral Q24H tacrolimus 4 mg Oral QAM Tamsulosin HCl 0.4 mg Oral Daily valGANciclovir 450 mg Oral Q48H OBJECTIVE Vitals: BP 174/83 (BP Location: Right arm, BP Position: Lying) Comment: Ida notified Pulse 89 Temp 98.7 F (37.1 C) (Oral) Resp 16 Ht 1.778 m (5' 10) Wt 111.1 kg (245 lb) SpO2 99% BMI 35.15 kg/m Smoking Status Current Some Day Smoker Ros negative except as above Physical Examination: Constitutional: no acute distress, appears comfortable HEENT: normocephalic, atraumatic, no scleral icterus, no periorbital swelling, no neck masses, supple perrl eomi op clear Neck supple jvp 7cm Chest: clear to auscultation and percussion bilaterally, no wheezing Cardiovascular: regular rate and rhythm, no murmurs No s3 no rub pmi nondisplaced Abdominal: non-distended, +bowel sounds, non tender to palpation no hsm Musculoskeletal: grossly normal range of motion 2+ pulses Extremities: well perfused, trace bilateral lower extremity edema Genitourinary: no villa, no CVA tnederness Neurological: alert and oriented to person, place, situation but not current time, moving all extremities spontaneously no tremor Skin: no vasculitic rash Dialysis Access: LAVF thrill +bruit present Relevant Data: Lab Results Component Value Date SODIUM 139 06/12/2021 POTASSIUM 4.4 06/12/2021 CHLORIDE 112 (H) 06/12/2021 CO2 20 (L) 06/12/2021 BUN 34 (H) 06/12/2021 CREATSERUM 2.41 (H) 06/12/2021 GLUCOSE 242 (H) 06/12/2021 Lab Results Component Value Date WBC 5.97 06/12/2021 HGB 12.0 (L) 06/12/2021 HCT 37.0 (L) 06/12/2021 PLATELET 185 06/12/2021 MCV 95.9 (H) 06/12/2021 Lab Results Component Value Date SPGRVTYUR 1.017 06/12/2021 GLUCOSEURINE >=1000 mg/dL (A) 06/12/2021 BILIRUBINURI NEGATIVE 11/06/2006 KETONESURINE Negative 06/12/2021 BLOODURINE Negative 06/12/2021 NITRITESURIN Negative 06/12/2021 LEUKOCESTUR Negative 06/12/2021 WBCURINE 0-5 06/12/2021 RBCURINE 0-2 06/12/2021 BACTERIAURIN ABSENT 06/12/2021 Lab Results Component Value Date CREATSERUM 2.41 (H) 06/12/2021 CREATSERUM 3.10 06/09/2021 CREATSERUM 3.44 06/06/2021 CREATSERUM 2.7 06/02/2021 Lab Results Component Value Date PTH 116.7 (H) 05/11/2021 CALCIUM 10.7 (H) 06/12/2021 PHOSPHORUS 2.3 06/12/2021 Attending I saw and independently evaluated the patient on 06/13/21. I have discussed the case with the resident and formulated the plan of care with them and agree with resident s findings, examination and plan as documented in the resident s note Due to COVID emergency and in an attempt to reduce risk of viral contraction and transmission, patient may not have been fully independently examined and use of other providers assessments were made in conjunction with my assessment to reach the best assessment and recommendations. Renal tx with generally stable function Mental status changes that are not characteristic of tacro toxicity. He reports very low glucoses and recommend endo consult to work with insulin pump. Check hgb A1c tiffany reports it has been in 4-5% range and if true, that is too tight Control For IS cont with tac and cellcept at home dose Check CMV and EBV PCR and urine and blood culture Agree with neuro eval and if all neg, may need LP given his immunosuppressed state. Javier Valentino MD [facility]* Plan of Care - Mirna Blackwood, PT - 06/13/2021 1:31 PM EDT Problem: PT - Balance/Coordination/Neuro Re-Education Goal: Standing Dynamic/Static Balance Description: Pt will perform standing balance tasks for 10 minutes with standby assistance with least restrictive device in order to improve functional mobility and safety with standing tasks. Outcome: Ongoing Problem: PT - Mobility Goal: Ambulation Description: Pt will ambulate 150 feet with least restrictive device with standby assistance to improve ability to navigate home environment. Outcome: Ongoing Goal: Stairs Description: Pt will ascend/descend 12 stairs with railings with standby assistance with least restrictive device to improve ability to perform functional mobility necessary in recommended discharge environment. Outcome: Ongoing Problem: PT - Transfers Goal: Sit <-> Stand Description: Pt will perform sit to/from stand transfers with standby assistance with least restrictive device in order to improve functional mobility and safety. Outcome: Ongoing Goal: Strength/ROM Description: Pt will perform 2 sets of 15 repetitions of lower bilateral extremity exercises with standby assistance in order to improve strength, maintain ROM, necessary for functional mobility. Outcome: Ongoing [facility]03-14-2022 Note* Plan of Care - Colleen Butt OT - 06/13/2021 1:11 PM EDT Problem: OT - Dressing Goal: Lower Body Dressing Description: Pt will complete LE dressing tasks with modified independence for improved ability to complete self-care activities. Outcome: Ongoing Problem: OT - ADLs Goal: Grooming Description: Pt will complete grooming in standing with modified independence for improved ability to safely complete ADLs. Outcome: Ongoing Goal: Bathing Description: Pt will perform full body bathing routine with standby assistance while seated and standing for improved ability to complete self-care activities. Outcome: Ongoing Problem: OT - Cognition Goal: Cognition Home Maintenance Description: Pt will complete simulated home maintenance task (medication management, finance management, etc.) with supervision to promote safety and success at discharge destination. Outcome: Ongoing Problem: OT - Endurance Goal: Endurance Functional Mobilty Around Home Description: Pt will complete distance needed for common household mobility. Outcome: Ongoing Problem: OT - Other Goal: Energy Conservation Description: Pt will follow energy conservation techniques appropriately 100% of the time during ADLs and functional mobility to conserve energy and maximize functional performance. Outcome: Ongoing [facility]03-14-2022 Note* Nursing Notes - Shalini Womack RN - 06/13/2021 8:56 AM EDT Messaged MD Murillo: pt BP this AM 188/89 MAP 128 HR 82, order says to notify if above 180, thanks [facility]03-14-2022 Consult note* Michelle Ward, - 06/13/2021 8:34 AM EDTAssociated Order(s): IP CONSULT TO NEUROLOGY NEUROLOGY CONSULTATION NOTE Date of service: June 13, 2021 Patient Name: Андрей Nickerson Consulting Provider: JERRI Pratt/COLLINS : 1960 Reason for consult: encephalopathy, male with history CAD, HTN, hx of DM-1, hx of TIA, of renal tx03/2021, DCed to SNF in Apr 2021 , found he has COVID-19 +ve in May s/p antibody infusion at that time. presented with encephalopathy History of Present Illness Андрей Nickerson is a 60 y.o. male with PMH significant for Renal transplant 03/22 on tacro/cellcept, CAD, HTN, DM-1, glaucoma who presents for altered mental status. Patient presents with altered mental status. He underwent renal transplant in March and discharged to SNF in April. In May(while at SNF) he was diagnosed with COVID and was given antibody infusion. He was discharged home a few days ago, but family was concerned about his thinking which resulted in his admission here. He reports felling well today. He is able to give me a full account of his rehab stay and subsequent discharge home. Reports he has been confusing dates, but feels this was more due to difficulty orienting himself while admitted first to the hospital and then fci facility. He also notessince discharge to his parents house ( does not live with them typically) he has had some difficulties with walking - mostly thinks this is due to bilateral hip pain which is chronic but worsen with his long hospital/rehab course. Per report his mother feels he has been off since the transplant. Per recent phone encounter wifefelt he was more weak and fatigued then usual. He was having difficulty managing his medications and was unsure which medications he had placed in the pill box. Labs hear show elevated Tacrolimus level and hyperglycemia. TSH, B12, within normal limits. CTH at OSH did not show anything acute. 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 Past Surgical History: Procedure Laterality Date KIDNEY TRANSPLANT W/O RUBY NEPHRECTOMY N/A 03/27/2021 Laterality: N/A; Surgeon: Sharon Acuna MD; Location: [facility] MAIN OR CORONARY ANGIOPLASTY N/A 04/21/2011 Laterality: N/A; Surgeon: Ricardo Herman MD; Location: [facility] CATH CORONARY DRUG ELUTING STENT PLACEMENT N/A 04/21/2011 Laterality: N/A; Surgeon: Ricardo Herman MD; Location: [facility] CATH CORONARY STENT PLACEMENT 2006 x3 REMOVAL CATARACT (PEM) Family History Problem Relation Age of Onset Heart Disease - Other Mother Hypertension Mother Hypertension Father Colorectal Cancer Neg Hx Social History Socioeconomic History Marital status: Tobacco Use Smoking status: Current Some Day Smoker Packs/day: 0.25 Years: 30.00 Pack years: 7.50 Types: Cigarettes Smokeless tobacco: Never Used Substance and Sexual Activity Alcohol use: Yes Comment: rare Drug use: No Sexual activity: Yes Partners: Female No Known Allergies Medications Prior to Admission Medications Prescriptions Last Dose Informant Patient Reported? Taking? Dexcom G6 Sensor Misc Yes No Sig: Change Sensor every 14 days Patient reading blood sugar 12 times daily Dexcom G6 Transmitter Misc Yes No Sig: CHANGE EVERY 90 DAYS GLUCOSE MONITOR LANCETS PRESCRIPTION No No Sig: DM1 on Pump Glucagon, rDNA, (Glucagon Emergency) 1 MG Kit Yes No Sig: Inject 1 Dose as directed as needed (Low glucose levels.). Glucagon, rDNA, 1 MG IJ KIT No No Sig: by Subcutaneous route. Use as directed Patient taking differently: Inject 1 mg under the skin as needed for Low blood sugar. ONE TOUCH ULTRASOFT LANCETS XX MISC No No Si times daily Propylene Glycol (Systane Balance) 0.6 % Solution Yes No Sig: Place 1 drop in both eyes daily. Tamsulosin HCl 0.4 MG capsule Yes No Sig: Take 0.4 mg by mouth daily. acetaminophen 325 MG tablet No No Sig: Take 2 tablets by mouth every 6 hours as needed for Mild Pain or Pain (breakthrough). albuterol 108 (90 Base) MCG/ACT Aero Soln inhaler Yes No Sig: Inhale 1-2 puffs every 6 hours as needed for Shortness of Breath. atorvastatin (LIPITOR) 40 MG PO TABS Yes No Sig: take 1 Tab by mouth daily. clopidogrel (PLAVIX) 75 MG PO TABS Yes No Sig: take 1 Tab by mouth daily. docusate 100 MG capsule No No Sig: Take 1 capsule by mouth 2 times daily as needed for Constipation. Hold for loose stool glucose blood test strips (ONE TOUCH TEST STRIPS) STRP No No Sig: PT TESTING 6XS DAILY insulin aspart (NOVOLOG) 100 UNIT/ML SC SOLN No No Sig: Per pump - uses approximately 50-70 per day. mycophenolate mofetil (CELLCEPT) 250 MG capsule No No Sig: Take 2 capsules by mouth every 12 hours. Diagnosis Code: ICD 9:V42.0, ICD 10:Z94.0 - Kidney transplant. Date of Transplant: 03/27/2021. prednisoLONE acetate 1 % Suspension ophthalmic suspension Yes No Sig: Place 1 drop in both eyes 2 times daily. senna 8.6 MG tablet No No Sig: Take 1 tablet by mouth daily as needed for Constipation. sofosbuvir-velpatasvir 400-100 MG tablet No No Sig: Take 1 tablet by mouth daily. sulfamethoxazole-trimethoprim 800-160 MG per tablet No No Sig: Take 1 tablet by mouth every other day. tacrolimus (PROGRAF) 1 MG capsule No No Sig: Take 4 capsules by mouth daily every morning AND 3 capsules every evening. Take at 0800 AM [id number] PM. valGANciclovir 450 MG tablet No No Sig: Take 1 tablet by mouth every 48 hours. Facility-Administered Medications: None Vitals Temp: [97.3 F (36.3 C)-98.7 F (37.1 C)] 97.3 F (36.3 C) Pulse (Heart Rate): [74-91] 82 Resp Rate: [16] 16 BP: (138-188)/(60-89) 188/89 O2 Sat (%): [96 %-100 %] 97 % Body mass index is 35.15 kg/m . Physical Exam General Physical Exam General: NAD, lying comfortably in bed HENT: Normal oropharynx and mucosa. Normal external appearance of ears and nose. Fundoscopy: Optic discs without evidence of papilledema bilaterally CV/Chest: Regular rate and rhythm, normal S1S2 Lungs: No audible wheezing. Normal work of breathing. No accessory muscle use Abdomen: Non distended, non tender Extremities: Warm and well perfused. No appreciable edema, cyanosis or deformity. Skin: No rash. Normal palpation of skin. Musculoskeletal: No joint tenderness. Normal digits and nails by inspection. No clubbing. Neurologic Examination Mental status/Cognition: Alert;Oriented to person, place, year and president. Not to month (January). Able to spell WORLD forwards and backwards. Digit span 7. No ideomotor apraxia. 3/3 immediate recall. 2/3 at 5 minutes, 3/3 with cues. Follows 3-4 step cross body commands without difficultly. Somewhat tangential but able to redirect Speech/language: fluency intact, comprehension intact, repetition intact and naming intact Cranial nerves: CN II visual pratt full to confrontation CN III,IV, Pupils equal, round, reactive and with consensual response.. Extraocular movements intact CN V Facial sensation intact to light touch bilaterally in V1, V2, V3. CN VII Face, Smile, Eyebrow raise symmetric. Eye closure strength 5/5 bilaterally CN VIII Hearing intact to finger rub bilaterally and No nystagmus noted CN IX & X Soft palate elevates symmetrically in the midline. No dysarthria. CN XI Shoulder shrug strength 5/5 bilaterally CN XII Tongue protrudes midline Motor: Normal muscle bulk throughout. Tone is normal throughout. There is no pronator drift Mvmt Root Nerve Muscle Right Left Comments SA C5/6 Ax Deltoid 5 5 EF C5/6 Mc Biceps 5 5 EE C6/7/8 Rad Triceps 5 5 WF C6/7 Med FCR 5 5 WE C7/8 PIN ECU 5 5 F Ab C8/T1 U ADM/FDI 5 5 HF L1/2/3 Fem Illopsoas 4+ 4+ KE L2/3/4 Fem Quad 5 5 DF L4/5 D Peron Tib Ant 5 5 PF S1/2 Tibial Grc/April 5 5 Reflexes: Right Left Comments Pectoralis Biceps (C5/6) 1 1 Brachioradialis (C5/6) 1 1 Triceps (C6/7) 1 1 Patellar (L3/4) 0 0 Achilles (S1) 0 0 Reed Plantar Down Down Jaw jerk Sensation: Light touch Intact throughout Pin prick Temperature Diminished in bilateral legs to above the ankle Vibration Intact throughout Proprioception Coordination/Complex Motor: - Finger nose finger intact bilaterally - Heel to castellanos normal without ataxia bilaterally - rapid alternating movements without disdiadochokinesia bilaterally and finger tapping normal bilaterally - Gait: walks with assistance of walker but with this he has normal stride length and base width Labs Bun/Creat/Cl/CO2/Glucose: --/--/--/--/180 (06/13 801) Lab Results Component Value Date ALT 14 06/12/2021 AST 11 06/12/2021 GGT 29 06/30/2020 ALKPHOS 103 06/12/2021 BILITOTAL 0.5 06/12/2021 BILIDIRECT 0.1 06/12/2021 Imaging and Diagnostic studies CTH: mild bitemporal and cerebellar atrophy, otherwise unremarkable. Impression Андрей Nickerson is a 60 y.o. male with PMH significant for Renal transplant 03/22 on tacro/cellcept, CAD, HTN, DM-1, glaucoma who presents for altered mental status. CTH from OSH did show some temporal/cerebellar atrophy, but otherwise was unremarkable. He did haveslight tangentiality, but is otherwise is cognitively intact on bedside examination. Perhaps he hada hit to his processing from recent surgery/anesthesia vs tacrolimus toxicity vs delirium(not current). He does not classify as MCI or dementia based on our examination. Recommendations - Agree with MRI Brain without contrast - Would add Folate to already obtained labs Patient seen, examined and discussed with Dr. Garcia. Thank you for the opportunity to take part in the care of this patient. If you have any further questions, please contact the neurology consult A resident. Michelle Ward, PGY-4, Neurology [facility] Associated attestation - Jose, Saima Leger MD - 06/13/2021 5:52 PM EDT Attending note: I performed a history and physical and neurological exam on this patient, and discussed the management with the resident. I reviewed the resident's note and agree with the documented findings and plan of care. Mr. Nickerson is a 60 year old pleasant man who underwent renal transplant 03/2021 now on tacrolimus and cellcept. He was discharged to SNF post transplant but then had mild URI sx and was diagnosed with COVID, rec'd antibody infusion. Family concerned about his cognition. Afebrile. At bedside he is disoriented to month (states July to me, January to resident), knows year and place. Able to conversefor 5 minutes on his thoughts on the situation in [facility]. Also discusses his history of hip pain. Able to do 4 step crossed commands and fully attentive with good memory. Neuro exam nonfocal except has mild hip flex weak, asymmetric quads (has a crossed quad on R) and has some neuropathy in feet to temp. Romberg negative. Gait is antalgic and slowed with walker due to hip pain. B12 levels ok, tsh ok. Creat elevated. Tacrolimus level slightly elev Has some mild deficits mainly in orientation and a bit tangential, which could be related to prio rcovid, tacrolimus, surgery with exposure to anesthesia, and mcfp effects from renal dysfunction. Does not meet criteria for mci. Recommended mri brain, can add rpr and folate for reversible dementia labs, can follow up with neurocognitive clinic. We will follow up these studies. Saima Garcia MD Malware Analyst of Neurology [facility]03-13-2022 Consult note* Obinna Villarreal MD - 06/12/2021 5:16 PM EDTAssociated Order(s): IP CONSULT TO NEPHROLOGY - TRANSPLANT I saw and independently evaluated the patient on 06/12/2021. I have discussed the case with the teamand formulated the plan of care with them and agree with the findings, examination and plan as documented in the note. Laura Wynn MD Malware Analyst of Clinical Medicine Pager - [phone] [facility] NEPHROLOGY INPATIENT CONSULT NOTE Reason for Consultation: IS managment Referring Provider: JERRI Pratt/[facility] Hospital Day: 1 SUBJECTIVE Андрей Nickerson is a 60 y.o. male with past medical history of CAD, HTN, hx of DM-1, hx of TIA, of renal tx 03/2021, presented to [facility] on 06/11/2021 with c/o confusion. Patient presents to the hospital s/p recent discharge from SNF home where his family have noted oddbehavior and waxing and waning level of confusion and periods of unintelligible conversation just does not appear to be himself ever since the transplant. Per his mother he was taken to the ER withunremarkable workup or concerns and subsequently discharged. To date infectious work and head CT have been unrevealing, he denies confusion and feels like his family are blowing it up, who doesn'tget the date wrong, especially when you've bene the hospital for long, and get the president wrong I know who he is let's just say I disagree with him Denies fever, prior ms changes Reports prior very low glucoses in 50-70 with insulin pump, no episodes of unconsciousness Current work-up to date has so far been unrevealing. Renal function otherwise stable. Noted for supratherapeutic levels. He otherwise denies chest pain, sob, f/c/n, n/v, changes in bowel or urine. Review of Systems: Negative except for as stated in history of present illness ASSESSMENT AND PLAN: Андрей Nickerson is a 60 y.o. male with past medical history of CAD, HTN, hx of DM-1, hx of TIA, of renal tx 03/2021, presented to [facility] on 06/11/2021 with c/o confusion.. Nephrology is consulted for IS therapy in recently transplanted kidney patient. Impression: ESRD s/p Kidney transplant 03/2021 at risk donor On Chronic Immunosuppression Tacrolimus 4 and 3, MMF 500 BID Azotemia without Uremia NAGMA Anemia of CKD Hepatitis C s/p transplant on sofosbuvir-velpatasvir ?Encephalopathy - possible 2/2 tacro toxicity; continue work-up as pr primary will plan to adjust regimen based on repeat tacro level T1DM CAD Recent COVID19 infection Recommendations: No indication for FISH DRIER; serum creatninen continue to trend downwards s/p transplant IS Tacrolimus 4 and 3, MMF 500 BID Tac elevated, goal would be around 6-8 (almost 3 months, recovering infection, slow graft function). Overnight dose held. Order a random trough. Will resume Tac depending on levels but likely will need 3/3. Supratherpaeutic Tac can also cause neurological manifestations. Unclear etiology of confusion. To us he appeared well oriented and answered all questions appropriately. It will be good to touchbase with family and understand the baseline. Obtain EBV PVR for workup completion. CT head neg. If continues to have concerns regarding neurological status then LP and neurology consult would be considered (subacute) On Epclusa for HCV +ve Kidney Resume home Bp meds, if he was not on any antiHT meds then can start on nifedipine 30 mg daily. Continue Bactrim PPx Continue Valcyte Daily chem6 BID Please obtain, phos, ca, albumin 3x weekly while here Accurate I&O Rest of care as per primary Renal protective measures: Please renally dose medications; Avoid nephrotoxic medications (NSAID, IV contrast); Avoid ACEi and ARBs in the setting of DEION; Maintain MAP > 65; Low Na, K, phos and protein diet These recommendations are not finalized until signed by an attending staff physician. Thank you for allowing us to participate in the care of this patient. Plan discussed with attending. Please call with any questions or concerns. Please contact us via web-exchange - Nephrology & Transplant Medicine - Transplant Fellow. 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 Past Surgical History: Past Surgical History: Procedure Laterality Date KIDNEY TRANSPLANT W/O RUBY NEPHRECTOMY N/A 03/27/2021 Laterality: N/A; Surgeon: Sharon Acuna MD; Location: [facility] CORONARY ANGIOPLASTY N/A 04/21/2011 Laterality: N/A; Surgeon: Ricardo Herman MD; Location: [facility] CORONARY DRUG ELUTING STENT PLACEMENT N/A 04/21/2011 Laterality: N/A; Surgeon: Ricardo Herman MD; Location: [facility] CORONARY STENT PLACEMENT 2006 x3 REMOVAL CATARACT (PEM) Family History: Family History Problem Relation Age of Onset Heart Disease - Other Mother Hypertension Mother Hypertension Father Colorectal Cancer Neg Hx No Known Allergies Social History Socioeconomic History Marital status: Spouse name: Not on file Number of children: Not on file Years of education: Not on file Highest education level: Not on file Occupational History Not on file Tobacco Use Smoking status: Current Some Day Smoker Packs/day: 0.25 Years: 30.00 Pack years: 7.50 Types: Cigarettes Smokeless tobacco: Never Used Substance and Sexual Activity Alcohol use: Yes Comment: rare Drug use: No Sexual activity: Yes Partners: Female Other Topics Concern Not on file Social History Narrative Not on file Social Determinants of Health Financial Resource Strain: Not on file Food Insecurity: Not on file Transportation Needs: Not on file Physical Activity: Not on file Stress: Not on file Social Connections: Not on file Intimate Partner Violence: Not on file Housing Stability: Not on file Scheduled Medications atorvastatin 40 mg Oral Daily clopidogrel 75 mg Oral Daily sofosbuvir-velpatasvir 1 tablet Oral Daily heparin 5,000 Units Subcutaneous Q8H insulin glargine injection 34 Units Subcutaneous QHS insulin lispro Subcutaneous 4x daily w/meals, HS mycophenolate mofetil 500 mg Oral Q12HNS prednisoLONE acetate 1 drop Both Eyes BID senna 8.6 mg Oral Daily sulfamethoxazole-trimethoprim 1 tablet Oral Q2 days tacrolimus 3 mg Oral Q24H tacrolimus 4 mg Oral QAM Tamsulosin HCl 0.4 mg Oral Daily valGANciclovir 450 mg Oral Q48H OBJECTIVE Vitals: BP 174/83 (BP Location: Right arm, BP Position: Lying) Comment: Ida notified Pulse 89 Temp 98.7 F (37.1 C) (Oral) Resp 16 Ht 1.778 m (5' 10) Wt 111.1 kg (245 lb) SpO2 99% BMI 35.15 kg/m Smoking Status Current Some Day Smoker Ros negative except as above Physical Examination: Constitutional: no acute distress, appears comfortable HEENT: normocephalic, atraumatic, no scleral icterus, no periorbital swelling, no neck masses, supple perrl eomi op clear Neck supple jvp 7cm Chest: clear to auscultation and percussion bilaterally, no wheezing Cardiovascular: regular rate and rhythm, no murmurs No s3 no rub pmi nondisplaced Abdominal: non-distended, +bowel sounds, non tender to palpation no hsm Musculoskeletal: grossly normal range of motion 2+ pulses Extremities: well perfused, trace bilateral lower extremity edema Genitourinary: no villa, no CVA tnederness Neurological: alert and oriented to person, place, situation but not current time, moving all extremities spontaneously no tremor Skin: no vasculitic rash Dialysis Access: LAVF thrill +bruit present Relevant Data: Lab Results Component Value Date SODIUM 139 06/12/2021 POTASSIUM 4.4 06/12/2021 CHLORIDE 112 (H) 06/12/2021 CO2 20 (L) 06/12/2021 BUN 34 (H) 06/12/2021 CREATSERUM 2.41 (H) 06/12/2021 GLUCOSE 242 (H) 06/12/2021 Lab Results Component Value Date WBC 5.97 06/12/2021 HGB 12.0 (L) 06/12/2021 HCT 37.0 (L) 06/12/2021 PLATELET 185 06/12/2021 MCV 95.9 (H) 06/12/2021 Lab Results Component Value Date SPGRVTYUR 1.017 06/12/2021 GLUCOSEURINE >=1000 mg/dL (A) 06/12/2021 BILIRUBINURI NEGATIVE 11/06/2006 KETONESURINE Negative 06/12/2021 BLOODURINE Negative 06/12/2021 NITRITESURIN Negative 06/12/2021 LEUKOCESTUR Negative 06/12/2021 WBCURINE 0-5 06/12/2021 RBCURINE 0-2 06/12/2021 BACTERIAURIN ABSENT 06/12/2021 Lab Results Component Value Date CREATSERUM 2.41 (H) 06/12/2021 CREATSERUM 3.10 06/09/2021 CREATSERUM 3.44 06/06/2021 CREATSERUM 2.7 06/02/2021 Lab Results Component Value Date PTH 116.7 (H) 05/11/2021 CALCIUM 10.7 (H) 06/12/2021 PHOSPHORUS 2.3 06/12/2021 Attending I saw and independently evaluated the patient on 06/13/21. I have discussed the case with the resident and formulated the plan of care with them and agree with resident s findings, examination and plan as documented in the resident s note Due to COVID emergency and in an attempt to reduce risk of viral contraction and transmission, patient may not have been fully independently examined and use of other providers assessments were made in conjunction with my assessment to reach the best assessment and recommendations. Renal tx with generally stable function Mental status changes that are not characteristic of tacro toxicity. He reports very low glucoses and recommend endo consult to work with insulin pump. Check hgb A1c tiffany reports it has been in 4-5% range and if true, that is too tight Control For IS cont with tac and cellcept at home dose Check CMV and EBV PCR and urine and blood culture Agree with neuro eval and if all neg, may need LP given his immunosuppressed state. Javier Valentino MD [facility] Work Phone: [phone] 581-502203-13-2022 Note* Nursing Notes - Ida Johnson RN - 06/12/2021 11:05 AM EDT Secure chatted Dr. Murillo Ia there, this patient is complaining of severe itching on his back. Inoticed a rash this morning and forgot to mention it, and he has some on his right lateral/posterior thigh too. Can you do maybe a cream? Ida Johnson RN [facility]03-12-2022 Note* Nursing Notes - Vivi Barron RN - 06/11/2021 11:47 PM EST On admission to [facility], from outside facility a dual RN initial assessment of skin condition was performed by Vivi Barron RN and Siobhan Almazan. Skin Assessment: Skin within defined limits:Yes Diomedes Score: 17 LDA Added:No Vivi Barron RN [facility]03-12-2022 History and physical note* Peter Gonzalez MD - 06/11/2021 11:34 PM EST Hospital Medicine Admission History & Physical Patient: Андрей Nickerson, : 1960, Date of face to face patient encounter: 06/11/2021 Impression / Plan Encephalopathy - unclear etiology, possibly uti vs pna vs continued confusion following recent covid infection - check ua - CXR - ct from [facility] without acute abnormality COVID-19 - appears he had this in early May - no symptoms currently - hold on treatment S/p renal transplant 03/22 - continue mycophenolate 500mg q12 and tacrolimus 3mg q12 - bactrim for ppx, prednisone not on medication list - valcyte q48 hours DM-I - patient states on 34 units lantus at bedtime and SSI - continued here Hepc - received with transplant - continue sofosbuvir-velpatasvir CAD - continue plavix and statin BMI: Obesity DVT prophylaxis with lovenox Anticipated Disposition: home Code status is full Chief Complaint Confusion History of Presenting Illness Андрей Nickerson is a 60 y.o. male with history of renal tx 03/22, CAD, HTN, hx of DM-1, hx of tia presented as a transfer from [facility] for confusion. Patient difficult historian at this time, statesthat he is here due to covid. Knows location, month and year. However, is tangential, stating he didn't like his care home. Denies cough, fever, chills. No burning or pain with urination. Denies n/v/d. States he had diarrhea a week ago but nothing recent. States that he feels ok currently, but is having some instability. 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 He has a 7.50 pack-year smoking history. He has never used smokeless tobacco. He reports current alcohol use. He reports that he does not use drugs. Family History family history includes Heart Disease - Other in his mother; Hypertension in his father and mother. Medications / Allergies Prior to Admission Medications Prescriptions Dexcom G6 Sensor Misc Sig: Change Sensor every 14 days Patient reading blood sugar 12 times daily Dexcom G6 Transmitter Misc Sig: CHANGE EVERY 90 DAYS GLUCOSE MONITOR LANCETS PRESCRIPTION Sig: DM1 on Pump Glucagon, rDNA, (Glucagon Emergency) 1 MG Kit Sig: Inject 1 Dose as directed as needed (Low glucose levels.). Glucagon, rDNA, 1 MG IJ KIT Sig: by Subcutaneous route. Use as directed Patient taking differently: Inject 1 mg under the skin as needed for Low blood sugar. ONE TOUCH ULTRASOFT LANCETS XX MISC Si times daily Propylene Glycol (Systane Balance) 0.6 % Solution Sig: Place 1 drop in both eyes daily. Tamsulosin HCl 0.4 MG capsule Sig: Take 0.4 mg by mouth daily. acetaminophen 325 MG tablet Sig: Take 2 tablets by mouth every 6 hours as needed for Mild Pain or Pain (breakthrough). albuterol 108 (90 Base) MCG/ACT Aero Soln inhaler Sig: Inhale 1-2 puffs every 6 hours as needed for Shortness of Breath. atorvastatin (LIPITOR) 40 MG PO TABS Sig: take 1 Tab by mouth daily. clopidogrel (PLAVIX) 75 MG PO TABS Sig: take 1 Tab by mouth daily. docusate 100 MG capsule Sig: Take 1 capsule by mouth 2 times daily as needed for Constipation. Hold for loose stool glucose blood test strips (ONE TOUCH TEST STRIPS) STRP Sig: PT TESTING 6XS DAILY insulin aspart (NOVOLOG) 100 UNIT/ML SC SOLN Sig: Per pump - uses approximately 50-70 per day. mycophenolate mofetil (CELLCEPT) 250 MG capsule Sig: Take 2 capsules by mouth every 12 hours. Diagnosis Code: ICD 9:V42.0, ICD 10:Z94.0 - Kidney transplant. Date of Transplant: 03/27/2021. prednisoLONE acetate 1 % Suspension ophthalmic suspension Sig: Place 1 drop in both eyes 2 times daily. senna 8.6 MG tablet Sig: Take 1 tablet by mouth daily as needed for Constipation. sofosbuvir-velpatasvir 400-100 MG tablet Sig: Take 1 tablet by mouth daily. sulfamethoxazole-trimethoprim 800-160 MG per tablet Sig: Take 1 tablet by mouth every other day. tacrolimus (PROGRAF) 1 MG capsule Sig: Take 4 capsules by mouth daily every morning AND 3 capsules every evening. Take at 0800 AM [id number] PM. valGANciclovir 450 MG tablet Sig: Take 1 tablet by mouth every 48 hours. Facility-Administered Medications: None No Known Allergies Objective Findings BP 146/85 (BP Location: Right arm, BP Position: Sitting) Pulse 84 Temp 98 F (36.7 C) (Oral) Resp 18 SpO2 99% Smoking Status Current Some Day Smoker Physical Exam Gen: Alert, Awake, NAD Eyes: PERRLA, EOMI, no icterus ENT: MMM, trachea midline Resp: CTA & P, normal respiratory effort Cardio: RRR, normal S1, S2, no M/R/G. No RONALD. GI: S/NT/ND, NABS, no abd tenderness MS: No joint effusions or erythema Skin: No jaundice or rash Neuro: fire investigator 3-7, 9-11 intact and equal. Strength grossly equal in muscle groups of the bilateral UEsand LEs. Psych: Ox3, appropriate affect and cognition Data Review [facility]03-12-2022 Note* Certification - Peter Gonzalez MD - 06/11/2021 11:34 PM EST I certify that this patient requires inpatient services at this time. I anticipate the expected length of stay will include at least two midnights. Inpatient services are due to the following medicalconcerns encephalopathy. Plans for post hospitalization care will be discharge to home. [facility]03-12-2022 History and physical note* Peter Gonzalez MD - 06/11/2021 11:34 PM EST Hospital Medicine Admission History & Physical Patient: Андрей Nickerson, : 1960, Date of face to face patient encounter: 06/11/2021 Impression / Plan Encephalopathy - unclear etiology, possibly uti vs pna vs continued confusion following recent covid infection - check ua - CXR - ct from [facility] without acute abnormality COVID-19 - appears he had this in early May - no symptoms currently - hold on treatment S/p renal transplant 03/22 - continue mycophenolate 500mg q12 and tacrolimus 3mg q12 - bactrim for ppx, prednisone not on medication list - valcyte q48 hours DM-I - patient states on 34 units lantus at bedtime and SSI - continued here Hepc - received with transplant - continue sofosbuvir-velpatasvir CAD - continue plavix and statin BMI: Obesity DVT prophylaxis with lovenox Anticipated Disposition: home Code status is full Chief Complaint Confusion History of Presenting Illness Андрей Nickerson is a 60 y.o. male with history of renal tx 03/22, CAD, HTN, hx of DM-1, hx of tia presented as a transfer from [facility] for confusion. Patient difficult historian at this time, statesthat he is here due to covid. Knows location, month and year. However, is tangential, stating he didn't like his care home. Denies cough, fever, chills. No burning or pain with urination. Denies n/v/d. States he had diarrhea a week ago but nothing recent. States that he feels ok currently, but is having some instability. 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 He has a 7.50 pack-year smoking history. He has never used smokeless tobacco. He reports current alcohol use. He reports that he does not use drugs. Family History family history includes Heart Disease - Other in his mother; Hypertension in his father and mother. Medications / Allergies Prior to Admission Medications Prescriptions Dexcom G6 Sensor Misc Sig: Change Sensor every 14 days Patient reading blood sugar 12 times daily Dexcom G6 Transmitter Misc Sig: CHANGE EVERY 90 DAYS GLUCOSE MONITOR LANCETS PRESCRIPTION Sig: DM1 on Pump Glucagon, rDNA, (Glucagon Emergency) 1 MG Kit Sig: Inject 1 Dose as directed as needed (Low glucose levels.). Glucagon, rDNA, 1 MG IJ KIT Sig: by Subcutaneous route. Use as directed Patient taking differently: Inject 1 mg under the skin as needed for Low blood sugar. ONE TOUCH ULTRASOFT LANCETS XX MISC Si times daily Propylene Glycol (Systane Balance) 0.6 % Solution Sig: Place 1 drop in both eyes daily. Tamsulosin HCl 0.4 MG capsule Sig: Take 0.4 mg by mouth daily. acetaminophen 325 MG tablet Sig: Take 2 tablets by mouth every 6 hours as needed for Mild Pain or Pain (breakthrough). albuterol 108 (90 Base) MCG/ACT Aero Soln inhaler Sig: Inhale 1-2 puffs every 6 hours as needed for Shortness of Breath. atorvastatin (LIPITOR) 40 MG PO TABS Sig: take 1 Tab by mouth daily. clopidogrel (PLAVIX) 75 MG PO TABS Sig: take 1 Tab by mouth daily. docusate 100 MG capsule Sig: Take 1 capsule by mouth 2 times daily as needed for Constipation. Hold for loose stool glucose blood test strips (ONE TOUCH TEST STRIPS) STRP Sig: PT TESTING 6XS DAILY insulin aspart (NOVOLOG) 100 UNIT/ML SC SOLN Sig: Per pump - uses approximately 50-70 per day. mycophenolate mofetil (CELLCEPT) 250 MG capsule Sig: Take 2 capsules by mouth every 12 hours. Diagnosis Code: ICD 9:V42.0, ICD 10:Z94.0 - Kidney transplant. Date of Transplant: 03/27/2021. prednisoLONE acetate 1 % Suspension ophthalmic suspension Sig: Place 1 drop in both eyes 2 times daily. senna 8.6 MG tablet Sig: Take 1 tablet by mouth daily as needed for Constipation. sofosbuvir-velpatasvir 400-100 MG tablet Sig: Take 1 tablet by mouth daily. sulfamethoxazole-trimethoprim 800-160 MG per tablet Sig: Take 1 tablet by mouth every other day. tacrolimus (PROGRAF) 1 MG capsule Sig: Take 4 capsules by mouth daily every morning AND 3 capsules every evening. Take at 0800 AM [id number] PM. valGANciclovir 450 MG tablet Sig: Take 1 tablet by mouth every 48 hours. Facility-Administered Medications: None No Known Allergies Objective Findings BP 146/85 (BP Location: Right arm, BP Position: Sitting) Pulse 84 Temp 98 F (36.7 C) (Oral) Resp 18 SpO2 99% Smoking Status Current Some Day Smoker Physical Exam Gen: Alert, Awake, NAD Eyes: PERRLA, EOMI, no icterus ENT: MMM, trachea midline Resp: CTA & P, normal respiratory effort Cardio: RRR, normal S1, S2, no M/R/G. No RONALD. GI: S/NT/ND, NABS, no abd tenderness MS: No joint effusions or erythema Skin: No jaundice or rash Neuro: fire investigator 3-7, 9-11 intact and equal. Strength grossly equal in muscle groups of the bilateral UEsand LEs. Psych: Ox3, appropriate affect and cognition Data Review [facility] of Present illness Narrative* Munir Carmona RT(R) - 04/19/2021 3:30 PM EST Radiology Service Progress Note PATIENT NAME: Андрей Nickerson DATE OF SERVICE: April 19, 2021 TIME: 3:39 PM PATIENT IDENTITY VERIFICATION COMPLETED USING TWO (2) IDENTIFIERS: Name and Date of confirmedby patient verbally. FALL SCREENING: Has the patient had 2 falls in the last year or 1 fall with injury or currently using an Ambulatory Assistive Device (Walker, Cane, Wheelchair, Crutches, etc.)? No PATIENT GENDER DATA: Male PATIENT RELEVANT IMPLANT DATA REVIEWED: Yes RADIOLOGY DEPARTMENT: General X-ray: Exam(s) Completed: Pelvis X-Ray: Pelvis with Hip Right PERIPHERAL IV DATA: Not applicable SIGNED BY: RT Rocio(R) April 19, 2021 3:39 PM [facility] Reason for visit Narrative* Auth/Cert Specialty Diagnoses / Procedures Referred By Jonathan shoemaker Referred To Contact Diagnoses AMS/Covid +, Renal Transplant 03/27/2021 Referral ID Status Reason Start Date Expiration Date Visits Re quested Visits Authorized [id number] 1 1 [facility]12-15-2015 History of Past illness Narrative* Problem Noted Date Resolved Date Pseudophakia of left eye 03/16/2015 016 Pseudophakia, left eye 03/11/2015 5 Combined 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 04/26/2015 Type II or unspecified type diabetes mellitus with ophthalmic manifestations, not stated as uncontrolled(250.50) 07/28/2014 03/31/2015 Other and combined forms of senile cataract 12/0202/23/2015 Proliferative diabetic retinopathy(362.02) ([facility]) - Both Eyes 12/23/2013 02/07/2017 Diabetes mellitus type 2 in obese 07/25/2012 08/10/2015 documented as of this encounter (statuses as of 06/24/2021) [facility] History of Past illness Narrative* Problem Noted Date Resolved Date Pseudophakia of left eye 03/16/2015 016 Pseudophakia, left eye 03/11/2015 5 Combined 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 04/26/2015 Type II or unspecified type diabetes mellitus with ophthalmic manifestations, not stated as uncontrolled(250.50) 07/28/2014 03/31/2015 Other and combined forms of senile cataract 12/0202/23/2015 Proliferative diabetic retinopathy(362.02) ([facility]) - Both Eyes 12/23/2013 02/07/2017 Diabetes mellitus type 2 in obese 07/25/2012 08/10/2015 documented as of this encounter (statuses as of 07/11/2021) [facility] History of Past illness Narrative* Problem Noted Date Resolved Date Pseudophakia of left eye 03/16/2015 016 Pseudophakia, left eye 03/11/2015 5 Combined 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 04/26/2015 Type II or unspecified type diabetes mellitus with ophthalmic manifestations, not stated as uncontrolled(250.50) 07/28/2014 03/31/2015 Other and combined forms of senile cataract 12/0202/23/2015 Proliferative diabetic retinopathy(362.02) ([facility]) - Both Eyes 12/23/2013 02/07/2017 Diabetes mellitus type 2 in obese 07/25/2012 08/10/2015 documented as of this encounter (statuses as of 07/27/2021) [facility] History of Past illness Narrative* Problem Noted Date Resolved Date Pseudophakia of left eye 03/16/2015 016 Pseudophakia, left eye 03/11/2015 5 Combined 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 04/26/2015 Type II or unspecified type diabetes mellitus with ophthalmic manifestations, not stated as uncontrolled(250.50) 07/28/2014 03/31/2015 Other and combined forms of senile cataract 12/0202/23/2015 Proliferative diabetic retinopathy(362.02) ([facility]) - Both Eyes 12/23/2013 02/07/2017 Diabetes mellitus type 2 in obese 07/25/2012 08/10/2015 documented as of this encounter (statuses as of 08/09/2021) [facility] of Past illness Narrative* Problem Noted Date Resolved Date Pseudophakia of left eye 03/16/2015 016 Pseudophakia, left eye 03/11/2015 5 Combined 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 04/26/2015 Type II or unspecified type diabetes mellitus with ophthalmic manifestations, not stated as uncontrolled(250.50) 07/28/2014 03/31/2015 Other and combined forms of senile cataract 12/0202/23/2015 Proliferative diabetic retinopathy(362.02) ([facility]) - Both Eyes 12/23/2013 02/07/2017 Diabetes mellitus type 2 in obese 07/25/2012 08/10/2015 documented as of this encounter (statuses as of 08/18/2021) [facility] History of Past illness Narrative* Problem Noted Date Resolved Date Pseudophakia of left eye 03/16/2015 016 Pseudophakia, left eye 03/11/2015 5 Combined 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 04/26/2015 Type II or unspecified type diabetes mellitus with ophthalmic manifestations, not stated as uncontrolled(250.50) 07/28/2014 03/31/2015 Other and combined forms of senile cataract 12/0202/23/2015 Proliferative diabetic retinopathy(362.02) ([facility]) - Both Eyes 12/23/2013 02/07/2017 Diabetes mellitus type 2 in obese 07/25/2012 08/10/2015 documented as of this encounter (statuses as of 08/18/2021) [facility] of [facility] illness Narrative* Problem Noted Date Resolved Date Pseudophakia of left eye 03/16/2015 016 Pseudophakia, left eye 03/11/2015 5 Combined 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 04/26/2015 Type II or unspecified type diabetes mellitus with ophthalmic manifestations, not stated as uncontrolled(250.50) 07/28/2014 03/31/2015 Other and combined forms of senile cataract 12/0202/23/2015 Proliferative diabetic retinopathy(362.02) (HCC) - Both Eyes 12/23/2013 02/07/2017 Diabetes mellitus type 2 in obese 07/25/2012 08/10/2015 documented as of this encounter (statuses as of 08/19/2021) [facility] History of Past illness Narrative* Problem Noted Date Resolved Date Pseudophakia of left eye 03/16/2015 016 Pseudophakia, left eye 03/11/2015 5 Combined 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 04/26/2015 Type II or unspecified type diabetes mellitus with ophthalmic manifestations, not stated as uncontrolled(250.50) 07/28/2014 03/31/2015 Other and combined forms of senile cataract 12/0202/23/2015 Proliferative diabetic retinopathy(362.02) (HCC) - Both Eyes 12/23/2013 02/07/2017 Diabetes mellitus type 2 in obese 07/25/2012 08/10/2015 documented as of this encounter (statuses as of 09/13/2021) [facility] History of Past illness Narrative* Problem Noted Date Resolved Date Pseudophakia of left eye 03/16/2015 016 Pseudophakia, left eye 03/11/2015 5 Combined 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 04/26/2015 Type II or unspecified type diabetes mellitus with ophthalmic manifestations, not stated as uncontrolled(250.50) 07/28/2014 03/31/2015 Other and combined forms of senile cataract 12/0202/23/2015 Proliferative diabetic retinopathy(362.02) (HCC) - Both Eyes 12/23/2013 02/07/2017 Diabetes mellitus type 2 in obese 07/25/2012 08/10/2015 documented as of this encounter (statuses as of 09/13/2021) [facility] History of Past illness Narrative* Problem Noted Date Resolved Date Pseudophakia of left eye 03/16/2015 016 Pseudophakia, left eye 03/11/2015 5 Combined 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 04/26/2015 Type II or unspecified type diabetes mellitus with ophthalmic manifestations, not stated as uncontrolled(250.50) 07/28/2014 03/31/2015 Other and combined forms of senile cataract 12/0202/23/2015 Proliferative diabetic retinopathy(362.02) (HCC) - Both Eyes 12/23/2013 02/07/2017 Diabetes mellitus type 2 in obese 07/25/2012 08/10/2015 documented as of this encounter (statuses as of 09/23/2021) [address]15-2015 History of Past illness Narrative* Problem Noted Date Resolved Date Pseudophakia of left eye 03/16/2015 016 Pseudophakia, left eye 03/11/2015 5 Combined 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 04/26/2015 Type II or unspecified type diabetes mellitus with ophthalmic manifestations, not stated as uncontrolled(250.50) 07/28/2014 03/31/2015 Other and combined forms of senile cataract 12/0202/23/2015 Proliferative diabetic retinopathy(362.02) (HCC) - Both Eyes 12/23/2013 02/07/2017 Diabetes mellitus type 2 in obese 07/25/2012 08/10/2015 documented as of this encounter (statuses as of 09/29/2021) [facility]12[facility] History of Past illness Narrative* Problem Noted Date Resolved Date Pseudophakia of left eye 03/16/2015 016 Pseudophakia, left eye 03/11/2015 5 Combined 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 04/26/2015 Type II or unspecified type diabetes mellitus with ophthalmic manifestations, not stated as uncontrolled(250.50) 07/28/2014 03/31/2015 Other and combined forms of senile cataract 12/0202/23/2015 Proliferative diabetic retinopathy(362.02) ([facility]) - Both Eyes 12/23/2013 02/07/2017 Diabetes mellitus type 2 in obese 07/25/2012 08/10/2015 documented as of this encounter (statuses as of 10/04/2021) [place] [address]-15-2015 History of Past illness Narrative* Problem Noted Date Resolved Date Pseudophakia of left eye 03/16/2015 016 Pseudophakia, left eye 03/11/2015 5 Combined 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 04/26/2015 Type II or unspecified type diabetes mellitus with ophthalmic manifestations, not stated as uncontrolled(250.50) 07/28/2014 03/31/2015 Other and combined forms of senile cataract 12/0202/23/2015 Proliferative diabetic retinopathy(362.02) ([facility]) - Both Eyes 12/23/2013 02/07/2017 Diabetes mellitus type 2 in obese 07/25/2012 08/10/2015 documented as of this encounter (statuses as of 10/07/2021) [facility]12[facility] History of Past illness Narrative* Problem Noted Date Resolved Date Pseudophakia of left eye 03/16/2015 016 Pseudophakia, left eye 03/11/2015 5 Combined 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 04/26/2015 Type II or unspecified type diabetes mellitus with ophthalmic manifestations, not stated as uncontrolled(250.50) 07/28/2014 03/31/2015 Other and combined forms of senile cataract 12/0202/23/2015 Proliferative diabetic retinopathy(362.02) ([facility]) - Both Eyes 12/23/2013 02/07/2017 Diabetes mellitus type 2 in obese 07/25/2012 08/10/2015 documented as of this encounter (statuses as of 10/11/2021) [facility]12[facility] History of Past illness Narrative* Problem Noted Date Resolved Date Pseudophakia of left eye 03/16/2015 016 Pseudophakia, left eye 03/11/2015 5 Combined 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 04/26/2015 Type II or unspecified type diabetes mellitus with ophthalmic manifestations, not stated as uncontrolled(250.50) 07/28/2014 03/31/2015 Other and combined forms of senile cataract 12/0202/23/2015 Proliferative diabetic retinopathy(362.02) (HCC) - Both Eyes 12/23/2013 02/07/2017 Diabetes mellitus type 2 in obese 07/25/2012 08/10/2015 documented as of this encounter (statuses as of 10/27/2021) [facility]12[facility] History of Past illness Narrative* Problem Noted Date Resolved Date Pseudophakia of left eye 03/16/2015 016 Pseudophakia, left eye 03/11/2015 5 Combined 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 04/26/2015 Type II or unspecified type diabetes mellitus with ophthalmic manifestations, not stated as uncontrolled(250.50) 07/28/2014 03/31/2015 Other and combined forms of senile cataract 12/0202/23/2015 Proliferative diabetic retinopathy(362.02) (HCC) - Both Eyes 12/23/2013 02/07/2017 Diabetes mellitus type 2 in obese 07/25/2012 08/10/2015 documented as of this encounter (statuses as of 11/07/2021) [facility] History of Past illness Narrative* Problem Noted Date Resolved Date Pseudophakia of left eye 03/16/2015 016 Pseudophakia, left eye 03/11/2015 5 Combined 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 04/26/2015 Type II or unspecified type diabetes mellitus with ophthalmic manifestations, not stated as uncontrolled(250.50) 07/28/2014 03/31/2015 Other and combined forms of senile cataract 12/0202/23/2015 Proliferative diabetic retinopathy(362.02) (HCC) - Both Eyes 12/23/2013 02/07/2017 Diabetes mellitus type 2 in obese 07/25/2012 08/10/2015 documented as of this encounter (statuses as of 11/10/2021) [facility] History of Past illness Narrative* Problem Noted Date Resolved Date Pseudophakia of left eye 03/16/2015 016 Pseudophakia, left eye 03/11/2015 5 Combined 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 04/26/2015 Type II or unspecified type diabetes mellitus with ophthalmic manifestations, not stated as uncontrolled(250.50) 07/28/2014 03/31/2015 Other and combined forms of senile cataract 12/0202/23/2015 Proliferative diabetic retinopathy(362.02) (HCC) - Both Eyes 12/23/2013 02/07/2017 Diabetes mellitus type 2 in obese 07/25/2012 08/10/2015 documented as of this encounter (statuses as of 11/17/2021) [facility] History of Past illness Narrative* Problem Noted Date Resolved Date Pseudophakia of left eye 03/16/2015 016 Pseudophakia, left eye 03/11/2015 5 Combined 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 04/26/2015 Type II or unspecified type diabetes mellitus with ophthalmic manifestations, not stated as uncontrolled(250.50) 07/28/2014 03/31/2015 Other and combined forms of senile cataract 12/0202/23/2015 Proliferative diabetic retinopathy(362.02) (HCC) - Both Eyes 12/23/2013 02/07/2017 Diabetes mellitus type 2 in obese 07/25/2012 08/10/2015 documented as of this encounter (statuses as of 12/12/2021) [facility] History of Past illness Narrative* Problem Noted Date Resolved Date Pseudophakia of left eye 03/16/2015 016 Pseudophakia, left eye 03/11/2015 5 Combined 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 04/26/2015 Type II or unspecified type diabetes mellitus with ophthalmic manifestations, not stated as uncontrolled(250.50) 07/28/2014 03/31/2015 Other and combined forms of senile cataract 12/0202/23/2015 Proliferative diabetic retinopathy(362.02) (HCC) - Both Eyes 12/23/2013 02/07/2017 Diabetes mellitus type 2 in obese 07/25/2012 08/10/2015 documented as of this encounter (statuses as of 01/07/2022) [facility] History of Past illness Narrative* Problem Noted Date Resolved Date Pseudophakia of left eye 03/16/2015 016 Pseudophakia, left eye 03/11/2015 5 Combined 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 04/26/2015 Type II or unspecified type diabetes mellitus with ophthalmic manifestations, not stated as uncontrolled(250.50) 07/28/2014 03/31/2015 Other and combined forms of senile cataract 12/0202/23/2015 Proliferative diabetic retinopathy(362.02) (HCC) - Both Eyes 12/23/2013 02/07/2017 Diabetes mellitus type 2 in obese 07/25/2012 08/10/2015 documented as of this encounter (statuses as of 01/09/2022) [place] [address]-15-2015 History of Past illness Narrative* Problem Noted Date Resolved Date Pseudophakia of left eye 03/16/2015 016 Pseudophakia, left eye 03/11/2015 5 Combined 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 04/26/2015 Type II or unspecified type diabetes mellitus with ophthalmic manifestations, not stated as uncontrolled(250.50) 07/28/2014 03/31/2015 Other and combined forms of senile cataract 12/0202/23/2015 Proliferative diabetic retinopathy(362.02) (HCC) - Both Eyes 12/23/2013 02/07/2017 Diabetes mellitus type 2 in obese 07/25/2012 08/10/2015 documented as of this encounter (statuses as of 01/09/2022) [facility]12[facility] History of Past illness Narrative* Problem Noted Date Resolved Date Pseudophakia of left eye 03/16/2015 016 Pseudophakia, left eye 03/11/2015 5 Combined 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 04/26/2015 Type II or unspecified type diabetes mellitus with ophthalmic manifestations, not stated as uncontrolled(250.50) 07/28/2014 03/31/2015 Other and combined forms of senile cataract 12/0202/23/2015 Proliferative diabetic retinopathy(362.02) ([facility]) - Both Eyes 12/23/2013 02/07/2017 Diabetes mellitus type 2 in obese 07/25/2012 08/10/2015 documented as of this encounter (statuses as of 01/13/2022) [facility] History of Past illness Narrative* Problem Noted Date Resolved Date Pseudophakia of left eye 03/16/2015 016 Pseudophakia, left eye 03/11/2015 5 Combined 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 04/26/2015 Type II or unspecified type diabetes mellitus with ophthalmic manifestations, not stated as uncontrolled(250.50) 07/28/2014 03/31/2015 Other and combined forms of senile cataract 12/0202/23/2015 Proliferative diabetic retinopathy(362.02) ([facility]) - Both Eyes 12/23/2013 02/07/2017 Diabetes mellitus type 2 in obese 07/25/2012 08/10/2015 documented as of this encounter (statuses as of 01/27/2022) [facility] History of Past illness Narrative* Problem Noted Date Resolved Date Pseudophakia of left eye 03/16/2015 016 Pseudophakia, left eye 03/11/2015 5 Combined 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 04/26/2015 Type II or unspecified type diabetes mellitus with ophthalmic manifestations, not stated as uncontrolled(250.50) 07/28/2014 03/31/2015 Other and combined forms of senile cataract 12/0202/23/2015 Proliferative diabetic retinopathy(362.02) ([facility]) - Both Eyes 12/23/2013 02/07/2017 Diabetes mellitus type 2 in obese 07/25/2012 08/10/2015 documented as of this encounter (statuses as of 02/01/2022) [facility] History of Past illness Narrative* Problem Noted Date Resolved Date Pseudophakia of left eye 03/16/2015 016 Pseudophakia, left eye 03/11/2015 5 Combined 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 04/26/2015 Type II or unspecified type diabetes mellitus with ophthalmic manifestations, not stated as uncontrolled(250.50) 07/28/2014 03/31/2015 Other and combined forms of senile cataract 12/0202/23/2015 Proliferative diabetic retinopathy(362.02) ([facility]) - Both Eyes 12/23/2013 02/07/2017 Diabetes mellitus type 2 in obese 07/25/2012 08/10/2015 documented as of this encounter (statuses as of 02/07/2022) [facility] History of Past illness Narrative* Problem Noted Date Resolved Date Pseudophakia of left eye 03/16/2015 016 Pseudophakia, left eye 03/11/2015 5 Combined 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 04/26/2015 Type II or unspecified type diabetes mellitus with ophthalmic manifestations, not stated as uncontrolled(250.50) 07/28/2014 03/31/2015 Other and combined forms of senile cataract 12/0202/23/2015 Proliferative diabetic retinopathy(362.02) ([facility]) - Both Eyes 12/23/2013 02/07/2017 Diabetes mellitus type 2 in obese 07/25/2012 08/10/2015 documented as of this encounter (statuses as of 03/07/2022) [facility] History of Past illness Narrative* Problem Noted Date Resolved Date Pseudophakia of left eye 03/16/2015 016 Pseudophakia, left eye 03/11/2015 5 Combined 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 04/26/2015 Type II or unspecified type diabetes mellitus with ophthalmic manifestations, not stated as uncontrolled(250.50) 07/28/2014 03/31/2015 Other and combined forms of senile cataract 12/0202/23/2015 Proliferative diabetic retinopathy(362.02) (HCC) - Both Eyes 12/23/2013 02/07/2017 Diabetes mellitus type 2 in obese 07/25/2012 08/10/2015 documented as of this encounter (statuses as of 05/10/2022) [facility] History of Past illness Narrative* Problem Noted Date Resolved Date Pseudophakia of left eye 03/16/2015 016 Pseudophakia, left eye 03/11/2015 5 Combined 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 04/26/2015 Type II or unspecified type diabetes mellitus with ophthalmic manifestations, not stated as uncontrolled(250.50) 07/28/2014 03/31/2015 Other and combined forms of senile cataract 12/0202/23/2015 Proliferative diabetic retinopathy(362.02) (HCC) - Both Eyes 12/23/2013 02/07/2017 Diabetes mellitus type 2 in obese 07/25/2012 08/10/2015 documented as of this encounter (statuses as of 05/11/2022) [facility] History of Past illness Narrative* Problem Noted Date Resolved Date Pseudophakia of left eye 03/16/2015 016 Pseudophakia, left eye 03/11/2015 5 Combined 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 04/26/2015 Type II or unspecified type diabetes mellitus with ophthalmic manifestations, not stated as uncontrolled(250.50) 07/28/2014 03/31/2015 Other and combined forms of senile cataract 12/0202/23/2015 Proliferative diabetic retinopathy(362.02) (HCC) - Both Eyes 12/23/2013 02/07/2017 Diabetes mellitus type 2 in obese 07/25/2012 08/10/2015 documented as of this encounter (statuses as of 06/10/2022) [facility] History of Past illness Narrative* Problem Noted Date Resolved Date Pseudophakia of left eye 03/16/2015 016 Pseudophakia, left eye 03/11/2015 5 Combined 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 04/26/2015 Type II or unspecified type diabetes mellitus with ophthalmic manifestations, not stated as uncontrolled(250.50) 07/28/2014 03/31/2015 Other and combined forms of senile cataract 12/0202/23/2015 Proliferative diabetic retinopathy(362.02) (HCC) - Both Eyes 12/23/2013 02/07/2017 Diabetes mellitus type 2 in obese 07/25/2012 08/10/2015 documented as of this encounter (statuses as of 06/12/2022) [facility] History of Past illness Narrative* Problem Noted Date Resolved Date Pseudophakia of left eye 03/16/2015 016 Pseudophakia, left eye 03/11/2015 5 Combined 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 04/26/2015 Type II or unspecified type diabetes mellitus with ophthalmic manifestations, not stated as uncontrolled(250.50) 07/28/2014 03/31/2015 Other and combined forms of senile cataract 12/0202/23/2015 Proliferative diabetic retinopathy(362.02) (HCC) - Both Eyes 12/23/2013 02/07/2017 Diabetes mellitus type 2 in obese 07/25/2012 08/10/2015 documented as of this encounter (statuses as of 06/19/2022) [facility] History of Past illness Narrative* Problem Noted Date Resolved Date Pseudophakia of left eye 03/16/2015 016 Pseudophakia, left eye 03/11/2015 5 Combined 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 04/26/2015 Type II or unspecified type diabetes mellitus with ophthalmic manifestations, not stated as uncontrolled(250.50) 07/28/2014 03/31/2015 Other and combined forms of senile cataract 12/0202/23/2015 Proliferative diabetic retinopathy(362.02) (HCC) - Both Eyes 12/23/2013 02/07/2017 Diabetes mellitus type 2 in obese 07/25/2012 08/10/2015 documented as of this encounter (statuses as of 07/03/2022) [facility] History of Past illness Narrative* Problem Noted Date Resolved Date Pseudophakia of left eye 03/16/2015 016 Pseudophakia, left eye 03/11/2015 5 Combined 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 04/26/2015 Type II or unspecified type diabetes mellitus with ophthalmic manifestations, not stated as uncontrolled(250.50) 07/28/2014 03/31/2015 Other and combined forms of senile cataract 12/0202/23/2015 Proliferative diabetic retinopathy(362.02) (HCC) - Both Eyes 12/23/2013 02/07/2017 Diabetes mellitus type 2 in obese 07/25/2012 08/10/2015 documented as of this encounter (statuses as of 07/07/2022) [facility] History of Past illness Narrative* Problem Noted Date Resolved Date Pseudophakia of left eye 03/16/2015 016 Pseudophakia, left eye 03/11/2015 5 Combined 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 04/26/2015 Type II or unspecified type diabetes mellitus with ophthalmic manifestations, not stated as uncontrolled(250.50) 07/28/2014 03/31/2015 Other and combined forms of senile cataract 12/0202/23/2015 Proliferative diabetic retinopathy(362.02) ([facility]) - Both Eyes 12/23/2013 02/07/2017 Diabetes mellitus type 2 in obese 07/25/2012 08/10/2015 documented as of this encounter (statuses as of 07/10/2022) [facility] History of Past illness Narrative* Problem Noted Date Resolved Date Pseudophakia of left eye 03/16/2015 016 Pseudophakia, left eye 03/11/2015 5 Combined 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 04/26/2015 Type II or unspecified type diabetes mellitus with ophthalmic manifestations, not stated as uncontrolled(250.50) 07/28/2014 03/31/2015 Other and combined forms of senile cataract 12/0202/23/2015 Proliferative diabetic retinopathy(362.02) ([facility]) - Both Eyes 12/23/2013 02/07/2017 Diabetes mellitus type 2 in obese 07/25/2012 08/10/2015 documented as of this encounter (statuses as of 07/31/2022) [facility] History of Past illness Narrative* Problem Noted Date Resolved Date Pseudophakia of left eye 03/16/2015 016 Pseudophakia, left eye 03/11/2015 5 Combined 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 04/26/2015 Type II or unspecified type diabetes mellitus with ophthalmic manifestations, not stated as uncontrolled(250.50) 07/28/2014 03/31/2015 Other and combined forms of senile cataract 12/0202/23/2015 Proliferative diabetic retinopathy(362.02) ([facility]) - Both Eyes 12/23/2013 02/07/2017 Diabetes mellitus type 2 in obese 07/25/2012 08/10/2015 documented as of this encounter (statuses as of 08/02/2022) [facility] History of Past illness Narrative* Problem Noted Date Diagnosed Date Resolved Date Pseudophakia of left eye 03/16/2015 Pseudophakia, left eye 03/11/201503/31 Combined 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 03/02/2004/26/2015 Type II or unspecified type diabetes mellitus with ophthalmic manifestations, not stated as uncontrolled(250.50) 07/28/2014 03/31/2015 Other and combined forms of senile cataract 12/23/2013 02/23/2015 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) ([facility]) - Both Eyes 12/23/2013 02/07/2017 Diabetes mellitus type 2 in obese 07/25/2012 08/10/2015 documented as of this encounter (statuses as of 10/09/2022) [facility] History of Past illness Narrative* Problem Noted Date Diagnosed Date Resolved Date Pseudophakia of left eye 03/16/2015 Pseudophakia, left eye 03/11/201503/31 Combined 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 03/02/2004/26/2015 Type II or unspecified type diabetes mellitus with ophthalmic manifestations, not stated as uncontrolled(250.50) 07/28/2014 03/31/2015 Other and combined forms of senile cataract 12/23/2013 02/23/2015 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) ([facility]) - Both Eyes 12/23/2013 02/07/2017 Diabetes mellitus type 2 in obese 07/25/2012 08/10/2015 documented as of this encounter (statuses as of 10/13/2022) [facility] History of Past illness Narrative* Problem Noted Date Diagnosed Date Resolved Date Pseudophakia of left eye 03/16/2015 Pseudophakia, left eye 03/11/201503/31 Combined 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 03/02/2004/26/2015 Type II or unspecified type diabetes mellitus with ophthalmic manifestations, not stated as uncontrolled(250.50) 07/28/2014 03/31/2015 Other and combined forms of senile cataract 12/23/2013 02/23/2015 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) (HCC) - Both Eyes 12/23/2013 02/07/2017 Diabetes mellitus type 2 in obese 07/25/2012 08/10/2015 documented as of this encounter (statuses as of 10/18/2022) [facility] History of Past illness Narrative* Problem Noted Date Diagnosed Date Resolved Date Pseudophakia of left eye 03/16/2015 Pseudophakia, left eye 03/11/201503/31 Combined 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 03/02/2004/26/2015 Type II or unspecified type diabetes mellitus with ophthalmic manifestations, not stated as uncontrolled(250.50) 07/28/2014 03/31/2015 Other and combined forms of senile cataract 12/23/2013 02/23/2015 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) (HCC) - Both Eyes 12/23/2013 02/07/2017 Diabetes mellitus type 2 in obese 07/25/2012 08/10/2015 documented as of this encounter (statuses as of 10/18/2022) [facility] History of Past illness Narrative* Problem Noted Date Diagnosed Date Resolved Date Pseudophakia of left eye 03/16/2015 Pseudophakia, left eye 03/11/201503/31 Combined 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 03/02/2004/26/2015 Type II or unspecified type diabetes mellitus with ophthalmic manifestations, not stated as uncontrolled(250.50) 07/28/2014 03/31/2015 Other and combined forms of senile cataract 12/23/2013 02/23/2015 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) (HCC) - Both Eyes 12/23/2013 02/07/2017 Diabetes mellitus type 2 in obese 07/25/2012 08/10/2015 documented as of this encounter (statuses as of 11/03/2022) [facility] History of Past illness Narrative* Problem Noted Date Diagnosed Date Resolved Date Pseudophakia of left eye 03/16/2015 Pseudophakia, left eye 03/11/201503/31 Combined 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 03/02/2004/26/2015 Type II or unspecified type diabetes mellitus with ophthalmic manifestations, not stated as uncontrolled(250.50) 07/28/2014 03/31/2015 Other and combined forms of senile cataract 12/23/2013 02/23/2015 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) ([facility]) - Both Eyes 12/23/2013 02/07/2017 Diabetes mellitus type 2 in obese 07/25/2012 08/10/2015 documented as of this encounter (statuses as of 11/08/2022) [facility] History of Past illness Narrative* Problem Noted Date Diagnosed Date Resolved Date Pseudophakia of left eye 03/16/2015 Pseudophakia, left eye 03/11/201503/31 Combined 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 03/02/2004/26/2015 Type II or unspecified type diabetes mellitus with ophthalmic manifestations, not stated as uncontrolled(250.50) 07/28/2014 03/31/2015 Other and combined forms of senile cataract 12/23/2013 02/23/2015 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) ([facility]) - Both Eyes 12/23/2013 02/07/2017 Diabetes mellitus type 2 in obese 07/25/2012 08/10/2015 documented as of this encounter (statuses as of 11/30/2022) [facility] History of Past illness Narrative* Problem Noted Date Diagnosed Date Resolved Date Pseudophakia of left eye 03/16/2015 Pseudophakia, left eye 03/11/201503/31 Combined 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 03/02/2004/26/2015 Type II or unspecified type diabetes mellitus with ophthalmic manifestations, not stated as uncontrolled(250.50) 07/28/2014 03/31/2015 Other and combined forms of senile cataract 12/23/2013 02/23/2015 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) ([facility]CC) - Both Eyes 12/23/2013 02/07/2017 Diabetes mellitus type 2 in obese 07/25/2012 08/10/2015 documented as of this encounter (statuses as of 12/26/2022) [facility] History of Past illness Narrative* Problem Noted Date Diagnosed Date Resolved Date Pseudophakia of left eye 03/16/2015 Pseudophakia, left eye 03/11/201503/31 Combined 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 03/02/20 15 04/26/2015 Type II or unspecified type diabetes mellitus with ophthalmic manifestations, not stated as uncontrolled(250.50) 07/28/2014 03/31/2015 Other and combined forms of senile cataract 12/23/2013 02/23/2015 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) ([facility]) - Both Eyes 12/23/2013 02/07/2017 Diabetes mellitus type 2 in obese ([facility]) 07/25/2012 08/10/2015 documented as of this encounter (statuses as of 01/06/2023) [facility] History of Past illness Narrative* Problem Noted Date Diagnosed Date Resolved Date Pseudophakia of left eye 03/16/2015 Pseudophakia, left eye 03/11/201503/31 Combined 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 03/02/20 15 04/26/2015 Type II or unspecified type diabetes mellitus with ophthalmic manifestations, not stated as uncontrolled(250.50) 07/28/2014 03/31/2015 Other and combined forms of senile cataract 12/23/2013 02/23/2015 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) ([facility]) - Both Eyes 12/23/2013 02/07/2017 Diabetes mellitus type 2 in obese ([facility]) 07/25/2012 08/10/2015 documented as of this encounter (statuses as of 01/17/2023) [facility] History of Past illness Narrative* Problem Noted Date Diagnosed Date Resolved Date Pseudophakia of left eye 03/16/2015 Pseudophakia, left eye 03/11/201503/31 Combined 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 03/02/2004/26/2015 Type II or unspecified type diabetes mellitus with ophthalmic manifestations, not stated as uncontrolled(250.50) 07/28/2014 03/31/2015 Other and combined forms of senile cataract 12/23/2013 02/23/2015 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) ([facility]) - Both Eyes 12/23/2013 02/07/2017 Diabetes mellitus type 2 in obese ([facility]) 07/25/2012 08/10/2015 documented as of this encounter (statuses as of 02/13/2023) [facility] History of Past illness Narrative* Problem Noted Date Diagnosed Date Resolved Date Pseudophakia of left eye 03/16/2015 Pseudophakia, left eye 03/11/201503/31 Combined 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 03/02/2004/26/2015 Type II or unspecified type diabetes mellitus with ophthalmic manifestations, not stated as uncontrolled(250.50) 07/28/2014 03/31/2015 Other and combined forms of senile cataract 12/23/2013 02/23/2015 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) ([facility]) - Both Eyes 12/23/2013 02/07/2017 Diabetes mellitus type 2 in obese ([facility]) 07/25/2012 08/10/2015 documented as of this encounter (statuses as of 03/04/2023) [facility] History of Past illness Narrative* Problem Noted Date Diagnosed Date Resolved Date Pseudophakia of left eye 03/16/2015 Pseudophakia, left eye 03/11/201503/31 Combined 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 03/02/20 15 04/26/2015 Type II or unspecified type diabetes mellitus with ophthalmic manifestations, not stated as uncontrolled(250.50) 07/28/2014 03/31/2015 Other and combined forms of senile cataract 12/23/2013 02/23/2015 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) ([facility]) - Both Eyes 12/23/2013 02/07/2017 Diabetes mellitus type 2 in obese ([facility]) 07/25/2012 08/10/2015 documented as of this encounter (statuses as of 05/07/2023) [facility] History of Past illness Narrative* Problem Noted Date Diagnosed Date Resolved Date Pseudophakia of left eye 03/16/2015 Pseudophakia, left eye 03/11/201503/31 Combined 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 03/02/2004/26/2015 Type II or unspecified type diabetes mellitus with ophthalmic manifestations, not stated as uncontrolled(250.50) 07/28/2014 03/31/2015 Other and combined forms of senile cataract 12/23/2013 02/23/2015 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) ([facility]) - Both Eyes 12/23/2013 02/07/2017 Diabetes mellitus type 2 in obese ([facility]) 07/25/2012 08/10/2015 documented as of this encounter (statuses as of 05/24/2023) [facility] History of Past illness Narrative* Problem Noted Date Diagnosed Date Resolved Date Pseudophakia of left eye 03/16/2015 Pseudophakia, left eye 03/11/201503/31 Combined 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 03/02/2004/26/2015 Type II or unspecified type diabetes mellitus with ophthalmic manifestations, not stated as uncontrolled(250.50) 07/28/2014 03/31/2015 Other and combined forms of senile cataract 12/23/2013 02/23/2015 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) ([facility]) - Both Eyes 12/23/2013 02/07/2017 Diabetes mellitus type 2 in obese 07/25/2012 08/10/2015 documented as of this encounter (statuses as of 05/30/2023) [facility] History of Past illness Narrative* Problem Noted Date Diagnosed Date Resolved Date Pseudophakia of left eye 03/16/2015 Pseudophakia, left eye 03/11/201503/31 Combined 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 03/02/2004/26/2015 Type II or unspecified type diabetes mellitus with ophthalmic manifestations, not stated as uncontrolled(250.50) 07/28/2014 03/31/2015 Other and combined forms of senile cataract 12/23/2013 02/23/2015 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) ([facility]) - Both Eyes 12/23/2013 02/07/2017 Diabetes mellitus type 2 in obese ([facility]) 07/25/2012 08/10/2015 documented as of this encounter (statuses as of 05/31/2023) [facility] History of Past illness Narrative* Problem Noted Date Diagnosed Date Resolved Date Pseudophakia of left eye 03/16/2015 Pseudophakia, left eye 03/11/201503/31 Combined 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 03/02/2004/26/2015 Type II or unspecified type diabetes mellitus with ophthalmic manifestations, not stated as uncontrolled(250.50) 07/28/2014 03/31/2015 Other and combined forms of senile cataract 12/23/2013 02/23/2015 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) ([facility]) - Both Eyes 12/23/2013 02/07/2017 Diabetes mellitus type 2 in obese 07/25/2012 08/10/2015 documented as of this encounter (statuses as of 06/01/2023) [facility] History of Past illness Narrative* Problem Noted Date Diagnosed Date Resolved Date Pseudophakia of left eye 03/16/2015 Pseudophakia, left eye 03/11/201503/31 Combined 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 03/02/2004/26/2015 Type II or unspecified type diabetes mellitus with ophthalmic manifestations, not stated as uncontrolled(250.50) 07/28/2014 03/31/2015 Other and combined forms of senile cataract 12/23/2013 02/23/2015 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) ([facility]) - Both Eyes 12/23/2013 02/07/2017 Diabetes mellitus type 2 in obese 07/25/2012 08/10/2015 documented as of this encounter (statuses as of 06/09/2023) [facility] History of Past illness Narrative* Problem Noted Date Diagnosed Date Resolved Date Pseudophakia of left eye 03/16/2015 Pseudophakia, left eye 03/11/201503/31 Combined 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 03/02/2004/26/2015 Type II or unspecified type diabetes mellitus with ophthalmic manifestations, not stated as uncontrolled(250.50) 07/28/2014 03/31/2015 Other and combined forms of senile cataract 12/23/2013 02/23/2015 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) ([facility]) - Both Eyes 12/23/2013 02/07/2017 Diabetes mellitus type 2 in obese 07/25/2012 08/10/2015 documented as of this encounter (statuses as of 06/10/2023) [facility] History of Past illness Narrative* Problem Noted Date Diagnosed Date Resolved Date Pseudophakia of left eye 03/16/2015 Pseudophakia, left eye 03/11/201503/31 Combined 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 03/02/2004/26/2015 Type II or unspecified type diabetes mellitus with ophthalmic manifestations, not stated as uncontrolled(250.50) 07/28/2014 03/31/2015 Other and combined forms of senile cataract 12/23/2013 02/23/2015 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) ([facility]) - Both Eyes 12/23/2013 02/07/2017 Diabetes mellitus type 2 in obese 07/25/2012 08/10/2015 documented as of this encounter (statuses as of 06/18/2023) [facility] History of Past illness Narrative* Problem Noted Date Diagnosed Date Resolved Date Pseudophakia of left eye 03/16/2015 Pseudophakia, left eye 03/11/201503/31 Combined 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 03/02/2004/26/2015 Type II or unspecified type diabetes mellitus with ophthalmic manifestations, not stated as uncontrolled(250.50) 07/28/2014 03/31/2015 Other and combined forms of senile cataract 12/23/2013 02/23/2015 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) ([facility]) - Both Eyes 12/23/2013 02/07/2017 Diabetes mellitus type 2 in obese 07/25/2012 08/10/2015 documented as of this encounter (statuses as of 07/20/2023) [facility]01-20-[facility] Evaluation note* Diagnosis Onset Date Resolution Status Essential hypertension chron ic Essential hypertension chron ic History of coronary artery stent placement April h, 2011 chronic Hyperlipidemia chronic Kidney transplant recipient [place] Work Phone: [phone]) 356-826501-20-2012 Evaluation note* Diagnosis Onset Date Resolution Status Venous insufficiency chronic RAZO (dyspnea on exertion) [place] Essential hypertension chron ic History of coronary artery stent placement April chronic Hyperlipidemia chronic Kidney transplant recipient chronic Venous insufficiency chronic Venous insufficiency [place] Work Phone: Evaluation note* Diagnosis Encephalopathy- Primary Encephalopathy, unspecified Other complication of kidney transplant Altered mental status, unspecified altered mental status type Anemia (Low HGB) Anemia, unspecified Renal disease (High Serum Creatinine) Unspecified disorder of kidney and ureter Electrolyte disorder (K, Cl, or Na) Electrolyte and fluid disorders not elsewhere classified [facility] Kidney replaced by transplant- Primary Long-term use of immunosuppressant medication Encounter for long-term (current) use of other medications Abnormal blood chemistry Other abnormal blood chemistry High risk medication use Encounter for long-term (current) use of other medications Immunosuppressed status Unspecified disorder of immune mechanism Aftercare following organ transplant Other general symptoms and signs [facility] Diagnosis Status post kidney transplant- Primary Kidney replaced by transplant Hospital discharge follow-up Other follow-up examination Right hip pain Pain in joint, pelvic region and thigh 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) Essential hypertension Unspecified essential hypertension Hypercholesteremia Pure hypercholesterolemia [facility] Diagnosis Diarrhea, unspecified type- Primary [facility] Diarrhea, unspecified type- Primary Hypercholesteremia Pure hypercholesterolemia Status post kidney transplant Kidney replaced by transplant Hip pain Pain in joint, pelvic region and thigh Chronic pain of both knees Balance disorder Other symptoms involving nervous and musculoskeletal systems Essential hypertension Unspecified essential hypertension 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) Bilateral leg edema Edema [facility] Physical deconditioning- Primary Debility, unspecified Right hip pain Pain in joint, pelvic region and thigh [facility] Diagnosis Status post kidney transplant- Primary Kidney replaced by transplant Hip pain Pain in joint, pelvic region and thigh Chronic pain of both knees Balance disorder Other symptoms involving nervous and musculoskeletal systems [facility] Diagnosis Onset Date Resolution Status Presence of peritoneal dialysis catheter acute Essential hypertension chron ic DEION (acute kidney injury) re solved Complication of insulin pump resolved Diabetes chronic Obesity chronic Presence of insulin pump chr onic Insulin pump titration resol skip [facility] Work Phone: Evaluation note* Diagnosis Onset Date Resolution Status Presence of peritoneal dialysis catheter acute Essential hypertension chron ic DEION (acute kidney injury) re solved Complication of insulin pump resolved Diabetes chronic Obesity chronic Presence of insulin pump chr onic Insulin pump titration resol skip Essential hypertension chron ic History of coronary artery stent placement April chronic Hyperlipidemia chronic Kidney transplant recipient chronic [facility] Work Phone: Evaluation note* Diagnosis Status post kidney transplant- Primary Kidney replaced by transplant Chronic pain of both knees Balance disorder Other symptoms involving nervous and musculoskeletal systems Hip pain Pain in joint, pelvic region and thigh [facility] Diagnosis Status post kidney transplant- Primary Kidney replaced by transplant Chronic pain of both knees Balance disorder Other symptoms involving nervous and musculoskeletal systems Hip pain Pain in joint, pelvic region and thigh [facility] Diagnosis Status post kidney transplant- Primary Kidney replaced by transplant Chronic pain of both knees Balance disorder Other symptoms involving nervous and musculoskeletal systems Hip pain Pain in joint, pelvic region and thigh [facility] Diagnosis Status post kidney transplant- Primary Kidney replaced by transplant Chronic pain of both knees Balance disorder Other symptoms involving nervous and musculoskeletal systems Hip pain Pain in joint, pelvic region and thigh [facility] Diagnosis Kidney replaced by transplant- Primary Mixed hyperlipidemia Anemia, unspecified type 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 Abnormal blood chemistry Other abnormal blood chemistry Follow-up examination following treatment with high-risk medication Follow-up examination following completed treatment with high-risk medications, not elsewhere classified [facility] Onychomycosis- Primary Dermatophytosis of nail Pain in toe of left foot Pain in limb Pain in toe of right foot Pain in limb Other diabetic neurological complication associated with type 2 diabetes mellitus (HCC) Venous insufficiency Unspecified venous (peripheral) insufficiency [facility] Diagnosis Primary open angle glaucoma (POAG) of right eye, mild stage- Primary Primary open angle glaucoma (POAG) of left eye, mild stage 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) Pseudophakia of both eyes Lens replaced by other means [facility] Status post [facility] transplant- Primary Kidney replaced by transplant Hip pain Pain in joint, pelvic region and thigh Chronic pain of both knees Balance disorder Other symptoms involving nervous and musculoskeletal systems [facility] Diagnosis Primary open angle glaucoma (POAG) of left eye, mild stage- Primary Primary open angle glaucoma (POAG) of right eye, mild stage Status post eye surgery Other states following surgery of eye and adnexa 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) Pseudophakia of both eyes Lens replaced by other means Essential hypertension Unspecified essential hypertension Hypercholesteremia Pure hypercholesterolemia [facility] Diagnosis Primary open angle glaucoma (POAG) of right eye, mild stage- Primary Primary open angle glaucoma (POAG) of left eye, mild stage 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) Pseudophakia of both eyes Lens replaced by other means Essential hypertension Unspecified essential hypertension Hypercholesteremia Pure hypercholesterolemia Primary open angle glaucoma (POAG) of right eye, mild stage [facility] Splenomegaly- Primary Primary open angle glaucoma (POAG) of right eye, mild stage [facility] Diagnosis Hyperopia, bilateral- Primary Regular astigmatism, bilateral Pseudophakia Lens replaced by other means Primary open angle glaucoma (POAG) of right eye, mild stage [facility] Diagnosis Status post eye surgery- Primary Other states following surgery of eye and adnexa [facility] encounter [facility] noteNo assessment [facility]* Diagnosis Status post eye surgery- Primary Other states following surgery of eye and adnexa Primary open angle glaucoma (POAG) of both eyes, mild stage [facility] Diagnosis Acute dehydration- Primary Encounter for immunization Need for other specified prophylactic vaccination against single bacterial disease Status post kidney transplant Kidney replaced by transplant Essential hypertension Unspecified essential hypertension 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) Diarrhea, unspecified type [facility] Diagnosis Onychomycosis- Primary Dermatophytosis of nail Pain in toe of left foot Pain in limb Pain in toe of right foot Pain in limb Other diabetic neurological complication associated with type 2 diabetes mellitus (HCC) [facility] Diagnosis Essential hypertension- Primary Unspecified essential hypertension URI, acute Acute upper respiratory infections of unspecified site Status post kidney transplant Kidney replaced by transplant 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) Hypercholesteremia Pure hypercholesterolemia Bilateral leg edema Edema Obesity, Class II, BMI 35-39.9 Obesity, unspecified [facility] Diagnosis Hypercholesteremia Pure hypercholesterolemia [facility] Diagnosis Onychomycosis- Primary Dermatophytosis of nail Pain in toe of left foot Pain in limb Pain in toe of right foot Pain in limb Other diabetic neurological complication associated with type 2 diabetes mellitus (HCC) [facility] Diagnosis Primary open angle glaucoma (POAG) of right eye, mild stage- Primary Primary open angle glaucoma (POAG) of left eye, mild stage Optic cupping of both 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) [facility] Diagnosis Left hand pain- Primary Pain in limb Fall, sequela [facility]* Diagnosis Other complication of kidney transplant- Primary [facility] Diagnosis Primary open angle glaucoma (POAG) of right eye, mild stage- Primary Primary open angle glaucoma (POAG) of left eye, mild stage Optic cupping of both 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) 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) [facility] Diagnosis Closed nondisplaced fracture of base of fourth metacarpal bone of left hand, initial encounter- Primary Left hand pain Pain in limb Moderate protein-calorie malnutrition (HCC) Malnutrition of moderate degree [facility] Left hand pain- Primary Pain in limb Seasonal allergies Allergic rhinitis, cause unspecified Hypercholesteremia Pure hypercholesterolemia Status post kidney transplant Kidney replaced by transplant Essential hypertension Unspecified essential hypertension 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) Bilateral leg edema Edema Obesity, Class II, BMI 35-39.9 Obesity, unspecified 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) Secondary hyperparathyroidism of renal origin (HCC) Secondary hyperparathyroidism (of renal origin) [facility] Diagnosis Sore on toe- Primary [facility] Diagnosis 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)- Primary Secondary diabetes mellitus with other specified manifestations, not stated as uncontrolled, or unspecified [facility] Diagnosis Skin ulcer of toe of right foot with fat layer exposed (HCC)- Primary Diminished pulses in lower extremity Other symptoms involving cardiovascular system Diabetic mononeuropathy associated with diabetes mellitus due to underlying condition (HCC) [facility] Diagnosis Skin ulcer of toe of right foot with fat layer exposed (HCC)- Primary Diabetic mononeuropathy associated with diabetes mellitus due to underlying condition (HCC) Hammertoe of right foot [facility] Diagnosis Skin ulcer of toe of right foot with fat layer exposed (HCC)- Primary Diabetic mononeuropathy associated with diabetes mellitus due to underlying condition (HCC) Hammertoe of right foot Venous insufficiency Unspecified venous (peripheral) insufficiency Onychomycosis Dermatophytosis of nail Pain in toe of left foot Pain in limb Pain in toe of right foot Pain in limb Swelling of lower leg [facility] Diagnosis Skin ulcer of toe of right foot with fat layer exposed (HCC)- Primary Hammertoe of right foot Venous insufficiency Unspecified venous (peripheral) insufficiency Diabetic mononeuropathy associated with diabetes mellitus due to underlying condition (HCC) [facility] Diagnosis Onset Date Resolution Status Diabetes mellitus type 1 chr onic Neuropathy chronic Obesity chronic Presence of insulin pump chr onic [facility] Work Phone: Evaluation note* Diagnosis Onset Date Resolution Status Diabetes mellitus type 1 chr onic Neuropathy chronic Obesity chronic Presence of insulin pump chr onic Venous insufficiency chronic [facility] Work Phone: Evaluation note* Diagnosis Skin ulcer of toe of right foot with fat layer exposed (HCC)- Primary Hammertoe of right foot Venous insufficiency Unspecified venous (peripheral) insufficiency Venous stasis dermatitis Varicose veins of lower extremities with inflammation [facility] Diagnosis Onset Date Resolution Status Diabetes mellitus type 1 chr onic Neuropathy chronic Obesity chronic Presence of insulin pump chr onic Venous insufficiency chronic RAZO (dyspnea on exertion) [place] Essential hypertension chron ic History of coronary artery stent placement April chronic Hyperlipidemia chronic Kidney transplant recipient chronic Venous insufficiency chronic [facility] Work Phone: Evaluation note* Diagnosis LVH (left ventricular hypertrophy)- Primary Cardiomegaly Aortic dilatation (HCC) Aortic ectasia, unspecified site [facility] Diagnosis Venous insufficiency- Primary Unspecified venous (peripheral) insufficiency [facility] Diagnosis Acute non-recurrent sinusitis, unspecified location- Primary [facility]* Diagnosis NORBERTO (obstructive sleep apnea)- Primary Obstructive sleep apnea (adult) (pediatric) [facility] Diagnosis Bilateral leg edema- Primary Edema Hypercholesteremia Pure hypercholesterolemia Moderate protein-calorie malnutrition (HCC) Malnutrition of moderate degree COPD with exacerbation (HCC) Obstructive chronic bronchitis with exacerbation Secondary hyperparathyroidism of renal origin (HCC) Secondary hyperparathyroidism (of renal origin) Polycythemia vera (HCC) Aortic dilatation (HCC) Aortic ectasia, unspecified site LVH (left ventricular hypertrophy) Cardiomegaly NORBERTO (obstructive sleep apnea) Obstructive sleep apnea (adult) (pediatric) Immunosuppressed status (HCC) Unspecified disorder of immune mechanism 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) 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) Secondary diabetes mellitus with other specified manifestations, not stated as uncontrolled, or unspecified Status post kidney transplant Kidney replaced by transplant Essential hypertension Unspecified essential hypertension [facility] Diagnosis COPD with exacerbation (HCC)- Primary Obstructive chronic bronchitis with exacerbation [facility] Venous insufficiency- Primary Unspecified venous (peripheral) insufficiency Onychomycosis Dermatophytosis of nail Pain in toe of left foot Pain in limb Pain in toe of right foot Pain in limb Diabetic polyneuropathy associated with type 2 diabetes mellitus (HCC) [facility] Diagnosis Primary open angle glaucoma (POAG) of right eye, mild stage- Primary Primary open angle glaucoma (POAG) of left eye, mild stage Optic cupping of both eyes 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) Essential hypertension Unspecified essential hypertension Hypercholesteremia Pure hypercholesterolemia [facility] Diagnosis Kidney replaced by transplant- Primary Aftercare following organ transplant Immunosuppressed status Unspecified disorder of immune mechanism Abnormal blood chemistry Other abnormal blood chemistry [facility] Acute non-recurrent sinusitis, unspecified location- Primary [facility] Diagnosis Primary open angle glaucoma (POAG) of right eye, mild stage- Primary Primary open angle glaucoma (POAG) of left eye, mild stage Optic cupping of both eyes 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) Essential hypertension Unspecified essential hypertension Hypercholesteremia Pure hypercholesterolemia [facility] Diagnosis Onychomycosis- Primary Dermatophytosis of nail Pain in toe of left foot Pain in limb Pain in toe of right foot Pain in limb Diabetic polyneuropathy associated with type 2 diabetes mellitus (HCC) [facility] Diagnosis Chronic midline low back pain without sciatica- Primary Need for influenza vaccination Need for prophylactic vaccination and inoculation against influenza Lumbar paraspinal muscle spasm Other symptoms referable to back Chronic midline low back pain without sciatica Lumbar paraspinal muscle spasm Other symptoms referable to back [facility] Diagnosis Chronic midline low back pain without sciatica Lumbar paraspinal muscle spasm Other symptoms referable to back [facility] Diagnosis Left hand pain Pain in limb [facility] Diagnosis Right hip pain Pain in joint, pelvic region and thigh [facility] Diagnosis Degeneration of intervertebral disc of lumbar region with discogenic back pain- Primary [facility] Diagnosis Degeneration of intervertebral disc of lumbar region with discogenic back pain- Primary [facility] Diagnosis Degeneration of intervertebral disc of lumbar region with discogenic back pain- Primary Chronic midline low back pain without sciatica [facility] Diagnosis Enteritis due to Rotavirus- Primary Enteritis due to rotavirus [facility] Diagnosis Onychomycosis- Primary Dermatophytosis of nail Pain in toe of left foot Pain in limb Pain in toe of right foot Pain in limb Diabetic polyneuropathy associated with type 2 diabetes mellitus (HCC) Venous insufficiency Unspecified venous (peripheral) insufficiency [facility] Diagnosis Primary open angle glaucoma (POAG) of right eye, mild stage- Primary Primary open angle glaucoma (POAG) of left eye, mild stage Optic cupping of both eyes 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) Cataract, secondary obscuring vision, right Pseudophakia of both eyes Lens replaced by other means Essential hypertension Unspecified essential hypertension Hypercholesteremia Pure hypercholesterolemia [facility] Diagnosis Fatigue, unspecified type- Primary Hypercholesteremia Pure hypercholesterolemia Vitamin D deficiency Unspecified vitamin D deficiency LVH (left ventricular hypertrophy) Cardiomegaly Aortic dilatation (HCC) Aortic ectasia, unspecified site Essential hypertension Unspecified essential hypertension 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) NORBERTO (obstructive sleep apnea) Obstructive sleep apnea (adult) (pediatric) Status post kidney transplant Kidney replaced by transplant Chronic midline low back pain without sciatica [facility] Diagnosis Onychomycosis- Primary Dermatophytosis of nail Pain in toe of left foot Pain in limb Pain in toe of right foot Pain in limb Diabetic polyneuropathy associated with type 2 diabetes mellitus (HCC) Venous insufficiency Unspecified venous (peripheral) insufficiency Nevus Benign neoplasm of skin, site unspecified [facility] Diagnosis Essential hypertension- Primary Unspecified essential hypertension Screening for colon cancer Special screening for malignant neoplasms, colon 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) Vitamin D deficiency Unspecified vitamin D deficiency Hypercholesteremia Pure hypercholesterolemia LVH (left ventricular hypertrophy) Cardiomegaly Aortic dilatation Aortic ectasia, unspecified site NORBERTO (obstructive sleep apnea) Obstructive sleep apnea (adult) (pediatric) Status post kidney transplant (HCC) Kidney replaced by transplant Vitamin B12 deficiency Other B-complex deficiencies [facility] Diagnosis Primary open angle glaucoma (POAG) of right eye, mild stage- Primary Primary open angle glaucoma (POAG) of left eye, mild stage Optic cupping of both eyes 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) Pseudophakia of both eyes Lens replaced by other means [facility] Additional Instructions Clinical dehydration. your kidney numbers are stable from previous. Stool studies obtained negative for C. difficile or any enteropathic pathogens. Continue oral fluids for hydration. Use loperamide as needed. Follow-up with your doctor. Return if any worsening symptoms.[facility] Work Phone: Hospital Discharge instructions Additional Instructions 1. Recommend buying compression hose thigh-high. 2. Recommend elevating your feet above your nose during the day when you are not walking. 3. Recommend putting 1-2 bricks at the 40 of bed to help decrease the swelling. [facility] Work Phone: Reason for referral (narrative)* Consultation (Routine) - New Request Specialty Diagnoses / Procedures Referred By Jonathan shoemaker Referred To Contact Psychiatry Diagnoses Encephalopathy Jase Murillo MB/BEVERLY [address] [place] [id number] Referral ID Status Reason Start Date Expiration Date V isits Requested Visits Authorized [id number] New Request 06/15/2021 07/10/2022 1 1 * (Routine) - Pending Review Specialty Diagnoses / Procedures Referred By Jonathan shoemaker Referred To Contact Procedures PLATELET MONITORING PER PROTOCOL Peter Gonzalez MD [address] [place] [address] Referral ID Status Reason Start Date Expiration Date V isits Requested Visits Authorized [id number] Pending Review 06/12/2021 07/07/2022 1 1 * (Routine) - Pending Review Specialty Diagnoses / Procedures Referred By Contac t Referred To Contact Procedures DVT/VTE RISK ASSESSMENT Peter Gonzalez MD [address] [place] [address] Referral ID Status Reason Start Date Expiration Date V isits Requested Visits Authorized [id number] Pending Review 06/12/2021 07/07/2022 1 1 [facility] for referral (narrative)* Diagnostic Procedure Only (Routine) - Pending Review Specialty Diagnoses / Procedures Referred By Contac t Referred To Contact US IMAGING Diagnoses Splenomegaly Procedures US ABDOMEN LTD US ABDOMINAL REAL TIME W/IMAGE LIMITED Handy Henderson DO [address] [place] [address] Us Imaging Referral ID Status Reason Start Date Expiration Date Visits Requested Visits Authorized [id number] Pending Review Auto-Generat ed Referral 07/10/2022 02/08/2023 1 1 [facility] for referral (narrative)* Diagnostic Procedure Only (Routine) - Closed Specialty Diagnoses / Procedures Referred By Contac t Referred To Contact XR IMAGING Diagnoses Left hand pain Procedures XR HAND GENERAL 3V PA/LAT/OBL LEFT RADEX HAND MINIMUM 3 VIEWS Tara Carballo, NORAH.MARIA M [address] [place] [address] Xr Imaging Referral ID Status Reason Start Date Expiration Date V isits Requested Visits Authorized [id number] Closed Auto-Generate d Referral 07/24/2022 08/23/2023 1 1 * Consult, Test, Treat (Routine) - Pending Review Specialty Diagnoses / Procedures Referred By Contac t Referred To Contact Orthopedics Diagnoses Left hand pain Procedures CONSULT TO ORTHOPAEDICS OFFICE/OUTPATIENT NEW HIGH MDM 60-74 MINUTES Tara Carballo APRN.CNP [address] [place] [address] Referral ID Status Reason Start Date Expiration Date Visits Requested Visits Authorized [id number] Pending Review PCP Requested Referral 07/24/2022 07/24/2023 1 1 [facility] for referral (narrative)* Outpatient Procedure (Routine) - Authorized Specialty Diagnoses / Procedures Referred By Contac t Referred To [facility] Diagnoses Skin ulcer of toe of right foot with fat layer exposed (HCC) Diminished pulses in lower extremity Procedures PVR ANK PRESS NOEL VAS LAB NON-INVAS PHYSIOLOGIC STD EXTREMITY ART 2 LEVEL Triny Palmer [address] [place] [address] [facility] [address] [place] [address] Referral ID Status Reason Start Date Expiration Date Visits Requested Visits Authorized [id number] Authorized Auto-Generat ed Referral 11/28/2022 11/28/2023 1 1 * Diagnostic Procedure Only (Routine) - Closed Specialty Diagnoses / Procedures Referred By Contac t Referred To Contact XR IMAGING Diagnoses Skin ulcer of toe of right foot with fat layer exposed (HCC) Procedures XR FOOT GENERAL 3V AP/LAT/OBL RIGHT RADEX FOOT COMPLETE MINIMUM 3 VIEWS Triny Palmer [address] [place] [address] [place] [address] Referral ID Status Reason Start Date Expiration Date V isits Requested Visits Authorized [id number] Closed Auto-Generate d Referral 11/28/2022 12/28/2023 1 1 [facility] for referral (narrative)* Diagnostic Procedure Only (Routine) - Closed Specialty Diagnoses / Procedures Referred By Contac t Referred To Contact XR IMAGING Diagnoses Skin ulcer of toe of right foot with fat layer exposed (HCC) Diabetic mononeuropathy associated with diabetes mellitus due to underlying condition (HCC) Procedures XR TOE AP/LAT/OBL RIGHT RADEX TOE MINIMUM 2 VIEWS Triny Palmer [address] [place] [address] [place] [address] Referral ID Status Reason Start Date Expiration Date V isits Requested Visits Authorized [id number] Closed Auto-Generate d Referral 12/25/2022 01/24/2024 1 1 [facility] for referral (narrative)* Outpatient Procedure (Routine) - Authorized Specialty Diagnoses / Procedures Referred By Jonathan shoemaker Referred To [facility] Diagnoses Swelling of lower leg Procedures US VENOUS INCOMPETENCY NOEL VAS LAB DUP-SCAN XTR VEINS COMPLETE BILATERAL STUDY Triny Palmer[address] [place] [address] [facility] [place] [address] [place] [address] Referral ID Status Reason Start Date Expiration Date Visits Requested Visits Authorized [id number] Authorized Auto-Generat ed Referral 01/16/2024 1 1 [facility] for referral (narrative)* Diagnostic Procedure Only (Routine) - Closed Specialty Diagnoses / Procedures [facility] Referred To Contact XR IMAGING Diagnoses Hammertoe of right foot Procedures XR TOE AP/LAT/OBL RIGHT RADEX TOE MINIMUM 2 VIEWS Triny Palmer [address] [place] [address] [place] [address] Referral ID Status Reason Start Date Expiration Date V isits Requested Visits Authorized [id number] Closed Auto-Generate d Referral 03/01/2023 03/30/2024 1 1 * Consult, Test, Treat (Routine) - Authorized Specialty Diagnoses / Procedures Referred By Contac t Referred To Contact Vascular Surgery Diagnoses Venous insufficiency Procedures CONSULT TO VASCULAR SURGERY OFFICE/OUTPATIENT [facility] 60-74 MINUTES Summer Garcia, JOSEM [address] [place] [address] Referral ID Status Reason Start Date Expiration Date Visits Requested Visits Authorized [id number] Authorized PCP Requested Referral 05/30/2023 1 1 [facility] for referral (narrative)* Diagnostic Procedure Only (Routine) - Closed Specialty Diagnoses / Procedures Referred By Contac t Referred To Contact XR IMAGING Diagnoses Chronic midline low back pain without sciatica Lumbar paraspinal muscle spasm Procedures XR THORACIC GENERAL 3V AP/LAT/SWIMMERS RADEX SPINE THORACIC 3 VIEWS Handy Henderson DO [address] [place] [address] [place] [address] Referral ID Status Reason Start Date Expiration Date V isits Requested Visits Authorized [id number] Closed Auto-Generate d Referral 12/11/2023 01/09/2025 1 1 [facility] for referral (narrative)* Diagnostic Procedure Only (Routine) - Closed Specialty Diagnoses / Procedures Referred By Contac t Referred To Contact XR IMAGING Diagnoses Left hand pain Procedures XR HAND GENERAL 3V PA/LAT/OBL LEFT RADEX HAND MINIMUM 3 VIEWS Tara Carballo APRN.ENGINE SETTER [address] [place] [address] [place] [address] Referral ID Status Reason Start Date Expiration Date V isits Requested Visits Authorized [id number] Closed Auto-Generate d Referral 07/24/2022 08/23/2023 1 1 [facility] for referral (narrative)* Diagnostic Procedure Only (Routine) - Closed Specialty Diagnoses / Procedures Referred By Contac t Referred To Contact XR IMAGING Diagnoses Right hip pain Procedures XR HIP GENERAL 3V PELV/AP/LAT RIGHT RADEX HIP UNILATERAL WITH PELVIS 2-3 VIEWS Handy Henderson, DO [address] [place] [address] [place] [address] Referral ID Status Reason Start Date Expiration Date V isits Requested Visits Authorized [id number] Closed Auto-Generate d Referral 04/19/2021 05/19/2022 1 1 [facility] for referral (narrative)No reason for referral information [facility] Narrative* Diagnostic Procedure Only (Routine) - Closed Specialty Diagnoses / Procedures Referred By Contac t Referred To Contact XR IMAGING Diagnoses Chronic midline low back pain without sciatica Lumbar paraspinal muscle spasm Procedures XR THORACIC GENERAL 3V AP/LAT/SWIMMERS RADEX SPINE THORACIC 3 VIEWS Handy Henderson, DO [address] [place] [address] [place] [address] Referral ID Status Reason Start Date Expiration Date V isits Requested Visits Authorized [id number] Closed Auto-Generate d Referral 12/11/2023 01/09/2025 1 1 [facility] for visit Narrative* Diagnostic Procedure Only (Routine) - Closed Specialty Diagnoses / Procedures Referred By Contac t Referred To Contact XR IMAGING Diagnoses Left hand pain Procedures XR HAND GENERAL 3V PA/LAT/OBL LEFT RADEX HAND MINIMUM 3 VIEWS Tara Carballo, NORAH.ENGINE SETTER [address] [place] [address] [place] [address] Referral ID Status Reason Start Date Expiration Date V isits Requested Visits Authorized [id number] Closed Auto-Generate d Referral 07/24/2022 08/23/2023 1 1 [facility] for visit Narrative* Diagnostic Procedure Only (Routine) - Closed Specialty Diagnoses / Procedures Referred By Contac t Referred To Contact XR IMAGING Diagnoses Right hip pain Procedures XR HIP GENERAL 3V PELV/AP/LAT RIGHT RADEX HIP UNILATERAL WITH PELVIS 2-3 VIEWS Handy Henderson, DO [address] [facility] [place] [address] [place] [address] Referral ID Status Reason Start Date Expiration Date V isits Requested Visits Authorized [id number] Closed Auto-Generate d Referral 04/19/2021 05/19/2022 1 1 [facility] Summary Purpose Family History No Family History Records Found Relationship Condition Age at Onset Recorded Date/T negra mother Diabetes mellitus Unknown Disorder of thyroid Unknown Hypertension Unknown Hyperlipidemia Unknown Advance Directives No Advanced Directives Records FoundLatest Code Status on File Code Status Date Activated Date Inactivated Comments Full Code 06/12/2021 1:50 AM Full Code 03/27/2021 12:25 AM 06/12/2021 1:50 AM Documents on File Type Date Recorded Patient Hse Advisor Expl anation Advance Directive(s) 02/18/2021 8:55 AM Advance Directive(s) 09/16/2019 7:53 AM Advance Directive(s) 08/27/2019 11:04 AM Advance Directive(s) 10/08/2018 6:48 AM Latest Code Status on File Code Status Date Activated Date Inactivated Comments Full Code 06/12/2021 1:50 AM Full Code 03/27/2021 12:25 AM 06/12/2021 1:50 AM Documents on File Type Date Recorded Patient Hse Advisor Expl anation Advance Directive(s) 02/18/2021 8:55 AM Advance Directive(s) 09/16/2019 7:53 AM Advance Directive(s) 08/27/2019 11:04 AM Advance Directive(s) 10/08/2018 6:48 AM Advance Directive Response Recorded Date/ Time Advance Directives No March 10:33am Living Will No June 10, 2021 8:40am Power of Financial Associate No June 10 8:40am Advance Directive Response Recorded Date/ Time Advance Directives No March 10:33am Living Will No January 30 10:19am Power of Financial Associate No January 30, 2022 10:19am Advance Directive Response Recorded Date/ Time Advance Directives No March 9:33am Living Will No January 30 9:19am Power of Financial Associate No January 30, 2022 9:19am Latest Code Status on File Code Status Date Activated Date Inactivated Comments Full Code 06/12/2021 1:50 AM Code Status History Code Status Date Activated Date Inactivated Comments Full Code 03/27/2021 12:25 AM 06/12/2021 1:50 AM Advance Directive Response Recorded Date/ Time Advance Directives No March 9:33am Living Will No July 19, 2022 11:41am Power of Financial Associate No July 19 11:41am Advance Directive Response Recorded Date/ Time Advance Directives No March 9:33am Living Will No April 25 12:51pm Power of Financial Associate No April 25, 2023 12:51pm Advance Directive Response Recorded Date/ Time Advance Directives on File No June 20, 2023 9:21am Advance Directives No June 20, 024 7:19am Living Will No June 21, 2023 7:19am Power of Financial Associate No June 20 7:19am Date Activated Date Inactivated Comments 06/12/2021 1:50 AM Date Activated Date Inactivated Comments 03/27/2021 12:25 AM 06/12/2021 1:50 AM Advance Directive Response Recorded Date/ Time Living Will No June 21, 2023 7:19am Do you have a Healthcare Power of Financial Associate? No June 21, 2023 7:19am Advance Directives No June 20, 024 7:19am Reason for Referral Specialty Diagnoses / Procedures Referred By Jonathan shoemaker Referred To Contact Orthopedics Diagnoses Right hip pain Procedures CONSULT TO ORTHOPAEDICS OFFICE/OUTPATIENT [facility] MDM 60-74 MINUTES Maya Salas APRN.ENGINE SETTER [address] [place] [address] Referral ID Status Reason Start Date Expiration Date Visits Requested Visits Authorized [id number] Pending Review PCP Requested Referral 07/11/2021 07/11/2022 1 1 Specialty Diagnoses / Procedures Referred By Jonathan t Referred To Contact [facility] Diagnoses Status post kidney transplant Hip pain Chronic pain of both knees Balance disorder Procedures CONSULT TO PHYSICAL THERAPY PHYSICAL THERAPY EVALUATION HIGH COMPLEX 45 MINS Handy Henderson, DO [address] [place] [address] [facility] [place] [address] [place] [address] Referral ID Status Reason Start Date Expiration Date Visits Requested Visits Authorized [id number] Pending Review Auto-Generat ed Referral 08/17/2021 08/17/2022 1 1 Specialty Diagnoses / Procedures Referred By Contac t Referred To Contact Cardiology Diagnoses LVH (left ventricular hypertrophy) Aortic dilatation (HCC) Procedures CONSULT TO CARDIOLOGY OFFICE/OUTPATIENT NEW [facility] MDM 60 MINUTES Handy Henderson, DO [address] [place] [address] Referral ID Status Reason Start Date Expiration Date Visits Requested Visits Authorized [id number] Authorized PCP Requested Referral 05/24/2023 05/23/2024 1 1 Specialty Diagnoses / Procedures Referred By Contac t Referred To Contact Diagnoses Chronic midline low back pain without sciatica Lumbar paraspinal muscle spasm Handy Henderson, DO [address] [place] [address] Referral ID Status Reason Start Date Expiration Date V isits Requested Visits Authorized [id number] Pending Review 12/11/2023 02/09/2024 1 1 Specialty Diagnoses / Procedures Referred By Contac t Referred To Contact XR IMAGING Diagnoses Chronic midline low back pain without sciatica Lumbar paraspinal muscle spasm Procedures XR THORACIC GENERAL 3V AP/LAT/SWIMMERS RADEX SPINE THORACIC 3 VIEWS Handy Henderson, DO [address] [place] [address] [place] [id number] Referral ID Status Reason Start Date Expiration Date V isits Requested Visits Authorized [id number] Closed Auto-Generate d Referral 12/11/2023 01/09/2025 1 1 Specialty Diagnoses / Procedures Referred By Contac t Referred To Contact XR IMAGING Diagnoses Chronic midline low back pain without sciatica Lumbar paraspinal muscle spasm Procedures XR LUMBAR GENERAL 3V AP/LAT/L5-S1 RADEX SPINE LUMBOSACRAL 2/3 VIEWS Handy Henderson, DO [address] [place] [address] [place] [id number] Referral ID Status Reason Start Date Expiration Date V isits Requested Visits Authorized [id number] Closed Auto-Generate d Referral 12/11/2023 01/09/2025 1 1 Specialty Diagnoses / Procedures Referred By Contac t Referred To Contact [facility] Diagnoses Degeneration of intervertebral disc of lumbar region with discogenic back pain Chronic midline low back pain without sciatica Procedures CONSULT TO PHYSICAL THERAPY PHYSICAL THERAPY EVALUATION HIGH COMPLEX 45 MINS Handy Henderson, DO [address] [place] [address] [facility] [place] [address] [place] [address] Referral ID Status Reason Start Date Expiration Date Visits Requested Visits Authorized [id number] Pending Review Auto-Generat ed Referral 4 01/16/2025 1 1 Specialty Diagnoses / Procedures Referred By Jonathan shoemaker Referred To Contact Pain Management Diagnoses Degeneration of intervertebral disc of lumbar region with discogenic back pain Procedures CONSULT TO PAIN MGT OFFICE/OUTPATIENT [facility] MDM 60 MINUTES Elisa Andre PA-C [address] [place] [address] Referral ID Status Reason Start Date Expiration Date Visits Requested Visits Authorized [id number] Authorized PCP Requested Referral 4 01/14/2025 1 1 Chief Complaint and Reason for Visit Chief Complaint HALFWAY LABWORK LAB WORK HALFWAY LABWORK HALFWAY LAB WORK PERITONEAL CATHETER REMOVAL hyperglycemia kidney issues ENCEPHALOPATHY, POSSIBLE ACCIDENTAL OVERDOSE ENCEPHALOPATHY, POSSIBLE ACCIDENTAL OVERDOSE ENCEPHALOPATHY, POSSIBLE ACCIDENTAL OVERDOSE RS FROM 07/18/21 Reason for Visit Presence of peritone al dialysis catheter Essential hypertension DEION (acute kidney injury) Complication of insulin pump Diabetes Obesity Presence of insulin pump Insulin pump titration Chief Complaint LAB WORK HALFWAY LABWORK HALFWAY LAB WORK PERITONEAL CATHETER REMOVAL hyperglycemia kidney issues ENCEPHALOPATHY, POSSIBLE ACCIDENTAL OVERDOSE ENCEPHALOPATHY, POSSIBLE ACCIDENTAL OVERDOSE ENCEPHALOPATHY, POSSIBLE ACCIDENTAL OVERDOSE RS FROM 07/18/21 7 M FU Reason for Visit Presence of peritone al dialysis catheter Essential hypertension DEION (acute kidney injury) Complication of insulin pump Diabetes Obesity Presence of insulin pump Insulin pump titration Essential hypertension History of coronary artery stent placement Hyperlipidemia Kidney transplant recipient Chief Complaint HALFWAY LABWORK HALFWAY LAB WORK PERITONEAL CATHETER REMOVAL hyperglycemia kidney issues ENCEPHALOPATHY, POSSIBLE ACCIDENTAL OVERDOSE ENCEPHALOPATHY, POSSIBLE ACCIDENTAL OVERDOSE ENCEPHALOPATHY, POSSIBLE ACCIDENTAL OVERDOSE RS FROM 07/18/21 7 M FU Reason for Visit Presence of peritone al dialysis catheter Essential hypertension DEION (acute kidney injury) Complication of insulin pump Diabetes Obesity Presence of insulin pump Insulin pump titration Essential hypertension History of coronary artery stent placement Hyperlipidemia Kidney transplant recipient Chief Complaint n/v Chief Complaint n/v FU 6 M FU INT LABS Reason for Visit Essential hypertensi on Essential hypertension History of coronary artery stent placement Hyperlipidemia Kidney transplant recipient Chief Complaint 6 M FU DVT Reason for Visit Diabetes mellitus ty pe 1 Neuropathy Obesity Presence of insulin pump Chief Complaint 6 M FU DVT CONSULT-LEG SWELLING BILATERAL LEG SWELLING Reason for Visit Diabetes mellitus ty pe 1 Neuropathy Obesity Presence of insulin pump Venous insufficiency Chief Complaint 6 M FU DVT CONSULT-LEG SWELLING BILATERAL LEG SWELLING 1 Y FU e orders Reason for Visit Diabetes mellitus ty pe 1 Neuropathy Obesity Presence of insulin pump Venous insufficiency RAZO (dyspnea on exertion) Essential hypertension History of coronary artery stent placement Hyperlipidemia Kidney transplant recipient Venous insufficiency Chief Complaint DVT CONSULT-LEG SWELLING BILATERAL LEG SWELLING 1 Y FU e orders venous insuff venous insuff Reason for Visit Venous insufficiency RAZO (dyspnea on exertion) Essential hypertension History of coronary artery stent placement Hyperlipidemia Kidney transplant recipient Venous insufficiency Venous insufficiency Chief Complaint Admit Date 6 M FU June 03, 2024 2:10 pm CARDIOMEGALY, LVH July 07, 2024 1:58 pm Reason for Visit Admit Date Left ventricular hypertrophy June 03, 2024 2:10pm Essential hypertension June 03, 2024 2 :10pm History of coronary artery stent placeme nt June 03, 2024 2:10pm Hyperlipidemia June 03, 2024 2:10 pm Kidney transplant recipient June 03, 2 025 2:10pm Venous insufficiency June 03, 2024 2:1 0pm Chief Complaint Admit Date 6 M FU June 03, 2024 2:10 pm CARDIOMEGALY, LVH July 07, 2024 1:58 pm 6 M FU August 13, 2024 1:03p m Medications Administered Section Active Administered Medications - up to 3 most recent administrations Medication Order MAR Action Action Date Dose Rate Site fluorescein-benoxinate 0.25-0.4 % 1 Drop (FLURESS) 1 Drop, RIGHT EYE, DIRECTED, Starting on Sun01/13/22 at 1600, Until 01/14/22 at 0359, Administer for applanation tonometry. In the event of a Fluress shortage, administer Jane-Fluor 1 drop into the right eye as directed for applanation tonometry Given 01/13/2022 4:00 PM EDT 1 Drop proparacaine 0.5 % 1 Drop (ALCAINE) 1 Drop, RIGHT EYE, DIRECTED, Starting on Sun01/13/22 at 1600, Until 01/14/22 at 0359, Administer for pneumo tonometry, tonopen tonometry, or pachymetry. In the event of a proparacaine shortage, administer tetracaine 0.5% ophthalmic drops 1 drop in the right eye as directed for pneumo tonometry, tonopen tonometry, or pachymetry Given 01/13/2022 4:00 PM EDT 1 Drop Active Administered Medications - up to 3 most recent administrations Medication Order MAR Action Action Date Dose Rate Site proparacaine 0.5 % 1 Drop (ALCAINE) 1 Drop, BOTH EYES, DIRECTED, Starting on Sun02/01/22 at 1600, Until Grace 02/02/22 at 0359, Administer for pneumo tonometry, tonopen tonometry, or pachymetry. In the event of a proparacaine shortage, administer tetracaine 0.5% ophthalmic drops 1 drop in the left eye as directed for pneumo tonometry, tonopen tonometry, or pachymetry Given 02/01/2022 4:00 PM EDT 1 Drop Additional Source Comments <item> Privacy Markings (unrecogniz ed section and content) Section Author: Carmita Pizano PROHIBITION ON REDISCLOSURE OF CONFIDENTIAL INFORMATION This notice accompanies a disclosure of information concerning a client made to you with the consent of such client. (unrecognized sect ion and content) No Status Records FoundNo Status Records FoundNo Status Records FoundNo Status Records FoundNo Status Records FoundNo Status Records Found INFORMATION SOURCE (unrecogn ized section and content) DATE CREATED AUTHOR 06/14/2021 [facility] DATE CREATED AUTHOR AUTHOR'S ORGANIZ ATION 06/23/2021 [facility] DATE CREATED AUTHOR AUTHOR'S ORGANIZ ATION 07/04/2022 [facility] DATE CREATED AUTHOR AUTHOR'S ORGANIZ ATION 11/12/2023 [facility] DATE CREATED AUTHOR AUTHOR'S ORGANIZ ATION 09/09/2024 [facility] DATE CREATED AUTHOR AUTHOR'S ORGANIZ ATION 09/25/2024 [facility] Scheduled Active and Recently Administ ered Medications (unrecognized section and content) Medication Order 06/19/2021 06/20/2021 06/21/2021 atorvastatin (LIPITOR) tablet 40 mg 40 mg, Oral, DAILY, First dose on Sun06/12/21 at 0900, Until Discontinued 0753 (Given - Provider: Marjan Bowie RN) 09 (Given - Provider: Sasha Rivera RN) 0743 (Given - Provider: Lyudmila Rios, NATI) carveDILOL (COREG) tablet 12.5 mg 12.5 mg, Oral, EVERY 12 HOURS, First dose on Sun06/13/21 at 0915, Until Discontinued, 0753 (Given - Provider: Marjan Bowie RN)2111 (Given - Provider: Keysha Figueroa RN) 09 (Given - Provider: Sasha Rivera, NATI)2029 (Given - Provider: Florinda Massey RN) 0745 (Given - Provider: Lyudmila Rios RN) clopidogrel (PLAVIX) tablet 75 mg 75 mg, Oral, DAILY, First dose on Sun06/12/21 at 0900, Until Discontinued 075 (Given - Provider: Marjan Bowie RN) 09 (Given - Provider: Sasha Rivera RN) 0744 (Given - Provider: Lyudmila Rios, NATI) Epclusa (sofosbuvir-velpatasvir ) 400-100 mg tab PATIENT SUPPLY 1 tablet, Oral, DAILY, First dose on Sun06/12/21 at 1000, Until Discontinued, Notify prescriber if dose cannot be administered. Patient supplied medication verified by pharmacist 0756 (Given - Provider: Marjan Bowie RN) 0916 (Given - Provider: Sasha Rivera RN) 0746 (Given - Provider: Lyudmila Rios RN) everolimus (ZORTRESS) tablet 2 mg (CANCELED) 2 mg, Oral, EVERY 12 HOURS NON-STANDARD, First dose on Sun06/17/21 at 1715, Until Discontinued, Swallow tablet whole; do not spilt, crush, or chew. Contact pharmacy if alternative route needed. 0508 (Given - Provider: Keysha Figueroa RN)211 (Given - Provider: Keysha Figueroa RN) 0905 (Given - Provider: Sasha Rivera RN) everolimus (ZORTRESS) tablet 3 mg 3 mg, Oral, EVERY 12 HOURS NON-STANDARD, First dose (after last modification) on Sun06/20/21 at 2000, Until Discontinued, Swallow tablet whole; do not spilt, crush, or chew. Contact pharmacy if alternative route needed. 2030 (Given - Provider: Florinda Massey RN) 0744 (Given - Provider: Lyudmila Rios RN) heparin injection 5,000 Units 5,000 Units, Subcutaneous, EVERY 8 HOURS (0800/1600/2200), First dose on Sun06/18/21 at 1600, Until Discontinued 0818 (Given - Provider: Marjan Bowie RN)1702 (Given - Provider: Sade Saleh RN)211 (Given - Provider: Keysha Figueroa RN) 0906 (Given - Provider: Sasha Rivera RN)1618 (Given - Provider: Sasha Rivera RN)2257 (Given - Provider: Florinda Massey RN) 0744 (Given - Provider: Lyudmila Rios RN)1600 (Canceled Entry - Provider: System Discharge - Comment: Automatically canceled at discontinue of medication order) insulin aspart (NovoLOG) CSII infusion pump(Linked Group 1) Subcutaneous, BEFORE MEALS & AT BEDTIME, First dose on Sun06/20/21 at 1115, Until Discontinued, BEFORE MEALS & AT BEDTIME, THIS ORDER IS FOR DOCUMENTARTION OF BOLUSES DELIVERED BY PATIENT VIA INSULIN PUMP. PLEASE CONTINUE TO RECORD CARBS. 1 unit per 4 grams of carbs; Sensitivity (Correction): 25, Target 110 1320 (Given - Provider: Sasha Rivera RN - Comment: given with meal)1700 (Given - Provider: Sasha Rivera RN)2148 (Given - Provider: Florinda Massey RN) 0815 (Given - Provider: Lyudmila Rios RN)1100 (Canceled Entry - Provider: System Discharge - Comment: Automatically canceled at discontinue of medication order)1600 (Canceled Entry - Provider: System Discharge - Comment: Automatically canceled at discontinue of medication order) insulin glargine-yfgn injection 40 Units (CANCELED) 40 Units, Subcutaneous, EVERY 24 HOURS, First dose (after last modification) on Sun06/19/21 at 1700, Until Discontinued, Do not mix in syringe with other insulins. 170 (Given - Provider: Sade Saleh RN) insulin lispro (HumaLOG) injection (CANCELED) Subcutaneous, 4 TIMES DAILY WITH MEALS & AT BEDTIME, First dose (after last modification) on Sun06/15/21 at 1700, Until Discontinued, Insulin to carb ratio: Non-Standard: 1 unit insulin = 3 grams carbs every meal and at bedtime Correction Factor: 151-175 = 1 unit; 176-200 = 2 units; 201-225 = 3 units; 226-250 = 4 units; 251-275 = 5 units; 276-300 = 6 units; 301-325 = 7 units; 326-350 = 8 units; Kwikpen: Prime pen before each injection; refer to Pen Priming and Care Handout for further details. Warning! Confirm patient. Insulin pen is for labeled individual patient use ONLY. 0955 (Given - Provider: Marjan Bowie RN)1353 (Given - Provider: Marjan Bowie RN)1823 (Given - Provider: Sade Saleh RN)2121 (Not Given - Provider: Keysha Figueroa RN - Reason: Order Parameters not met) 0912 (Given - Provider: Sasha Rivera RN)1200 (Canceled Entry - Provider: Zee Marshall, ROPEWALK ROPE MAKER-ENGINE SETTER - Comment: Automatically canceled at discontinue of medication order) mycophenolate mofetil (CELLCEPT) capsule 500 mg 500 mg, Oral, EVERY 12 HOURS NON-STANDARD, First dose on Sun06/12/21 at 0900, Until Discontinued, ---MEDICATION EXPOSURE PRECAUTIONS--- Do not split, break, crush or open this medication. Contact pharmacy if altered route or dose is needed. 0753 (Given - Provider: Marjan Bowie RN)2111 (Given - Provider: Keysha Figueroa RN) 09 (Given - Provider: Sasha Rivera RN)2029 (Given - Provider: Florinda Massey RN) 0744 (Given - Provider: Lyudmila Rios RN) prednisoLONE acetate (PRED FORTE) 1 % ophthalmic suspension 1 drop 1 drop, Both Eyes, 2 TIMES DAILY, First dose on 06/12/21 at 0900, Until Discontinued, Shake well prior to use. 075 (Given - Provider: Marjan Bowie RN)170 (Given - Provider: Sade Saleh RN) 09 (Given - Provider: Sasha Rivera RN)161 (Given - Provider: Sasha Rivera RN) 0744 (Given - Provider: Lyudmila Rios RN) senna (SENOKOT) tablet 8.6 mg 8.6 mg, Oral, DAILY, First dose on 06/12/21 at 0900, Until Discontinued 075 (Given - Provider: Marjan Bowie RN) 905 (Given - Provider: Sasha Rivera RN) 07 (Given - Provider: Lyudmila Rios RN) sulfamethoxazole-trimet hoprim (BACTRIM DS) 800-160 MG per tablet 1 tablet 1 tablet, Oral, EVERY OTHER DAY, First dose on 06/12/21 at 0900, Until Discontinued 905 (Given - Provider: Sasha Rivera RN) Tamsulosin HCl (FLOMAX) capsule 0.4 mg 0.4 mg, Oral, DAILY, First dose on 06/12/21 at 0900, Until Discontinued, Slow release product. Do not chew or crush 075 (Given - Provider: Marjan Bowie RN) 09 (Given - Provider: Sasha Rivera RN) 0744 (Given - Provider: Lyudmila Rios RN) valGANciclovir (valCYTE) tablet 450 mg 450 mg, Oral, EVERY 48 HOURS, First dose on 06/12/21 at 0900, Until Discontinued, Do not split, break, crush or chew this medication. Contact pharmacy if altered route or dose is needed. 905 (Given - Provider: Sasha Rivera RN) Continuous Medication Order 06/19/2021 06/20/2021 06/21/2021 insulin aspart (NovoLOG) CSII infusion pump(Linked Group 1) Subcutaneous, CONTINUOUS, Starting on 06/20/21 at 1115, Until Sun06/21/21 at 1627, -Prescribing clinician to enter insulin pump 24 hour administration time, hourly intervals and basal rates. 00:00 = 1.5 units/hr, 24 hr total = 36 units 1225 ($$New Bag$$ - Provider : Sasha Rivera RN) PRN Medication Order 06/19/2021 06/20/2021 06/21/2021 acetaminophen (TYLENOL) tablet 650 mg 650 mg, Oral, EVERY 6 HOURS NEEDED, Starting on Sun06/12/21 at 0150, Until Sun06/21/21 at 1627, Mild Pain, Oral temp > 100.4 F, Maximum dose of acetaminophen is 4000 mg from all sources in 24 hours. albuterol inhaler 2 puff 2 puff, Inhalation, EVERY 6 HOURS NEEDED, Starting on Sun06/12/21 at 0145, Until Sun06/21/21 at 1627, Shortness of Breath, Wait at least one(1) full minute between inhalations alum/mag hydrox.-simethicone oral suspension 30 mL 30 mL, Oral, EVERY 6 HOURS NEEDED, Starting on Sun06/12/21 at 0150, Until Sun06/21/21 at 1627, Indigestion, Per 5 mL is equivalent to: (Alum-Mag Hydroxide 200-225 mg and Simethicone 20 mg) and (Alum-Mag Hydroxide 200-200 mg and Simethicone 20 mg) Calamine-Zinc Oxide 8-8 % lotion 1 Application 1 Application, Topical, NEEDED, Starting on Sun06/12/21 at 1102, Until Sun06/21/21 at 1627, Itching, Patient may self-administer. dextrose 50% injection 7.5-25 g(Linked Group 2) 7.5-25 g, Intravenous, ADMINISTER DIRECTED, Starting on Sun06/12/21 at 0148, Until Sun06/21/21 at 1627, Blood glucose <80 mg/dL, For patients who are not alert, are NPO, or are on IV insulin infusion administer as directed per Hypoglycemia in Non- Adults Clinical Practice Guideline. For Blood Glucose: 60-79 mg/dL administer 7.5 gm (15ml); 45-59 mg/dL administer 12.5 gm (25ml); less than 45mg/dL administer 25gm (50ml). Extravasation Risk. ++Dextrose 50% injection is on national shortage and has been removed from most Pyxis machines. Use oral glucose when possible. Obtain order for oral glucose if needed. If dextrose 50% is necessary, obtain from Pharmacy if not in Pyxis.++ dextrose 50% injection 7.5-25 g(Linked Group 1) 7.5-25 g, Intravenous, ADMINISTER DIRECTED, Starting on 06/20/21 at 1111, Until Sun06/21/21 at 1627, Blood glucose <80 mg/dL, For patients who are not alert, are NPO, or are on IV insulin infusion administer as directed per Hypoglycemia in Non- Adults Clinical Practice Guideline. For Blood Glucose: 60-79 mg/dL administer 7.5 gm (15ml); 45-59 mg/dL administer 12.5 gm (25ml); less than 45mg/dL administer 25gm (50ml). Extravasation Risk. ++Dextrose 50% injection is on national shortage and has been removed from most Pyxis machines. Use oral glucose when possible. Obtain order for oral glucose if needed. If dextrose 50% is necessary, obtain from Pharmacy if not in Pyxis.++ glucose (GLUTOSE) 40 % oral gel 1-2 Tube(Linked Group 2) 1-2 Tube, Oral, ADMINISTER DIRECTED, Starting on Sun06/12/21 at 0148, Until Sun06/21/21 at 1627, Blood glucose <80 mg/dL, For patients who are alert, able to tolerate PO intake and with intact cognitive status administer as directed per Hypoglycemia in Non- Adults Clinical Practice Guideline. For Blood Glucose: 60-79 mg/dL administer 1 tube; 45-59 mg/dl administer 1.5 tubes; less than 45 mg/dL administer 2 tubes. Each tube of 37.5g delivers 15g of carbohydrate. ++ National shortage requires use of alternate product. For Insta-Glucose product: Each tube of 31g delivers 24g of carbohydrate. Percent strength 77.4% represents glucose content, equal to ~40% dextrose content. ++ glucose (GLUTOSE) 40 % oral gel 1-2 Tube(Linked Group 1) 1-2 Tube, Oral, ADMINISTER DIRECTED, Starting on Sun06/20/21 at 1111, Until Sun06/21/21 at 1627, Blood glucose <80 mg/dL, For patients who are alert, able to tolerate PO intake and with intact cognitive status administer as directed per Hypoglycemia in Non- Adults Clinical Practice Guideline. For Blood Glucose: 60-79 mg/dL administer 1 tube; 45-59 mg/dl administer 1.5 tubes; less than 45 mg/dL administer 2 tubes. Each tube of 37.5g delivers 15g of carbohydrate. ++ National shortage requires use of alternate product. For Insta-Glucose product: Each tube of 31g delivers 24g of carbohydrate. Percent strength 77.4% represents glucose content, equal to ~40% dextrose content. ++ hydrALAZINE (APRESOLINE) tablet 25 mg 25 mg, Oral, EVERY 6 HOURS NEEDED, Starting on Sun06/13/21 at 0903, Until Sun06/21/21 at 1627, Other, SBP more than 180 melatonin tablet 6 mg 6 mg, Oral, DAILY AT BEDTIME NEEDED, Starting on Sun06/12/21 at 0150, Until Sun06/21/21 at 1627, Insomnia ondansetron (ZOFRAN) tablet 4 mg(Linked Group 3) 4 mg, Oral, EVERY 6 HOURS NEEDED, Starting on Sun06/12/21 at 0150, Until Sun06/21/21 at 1627, Nausea / Vomiting, 1st line for Nausea/Vomiting ondansetron 4mg/2ml (ZOFRAN) injection 4 mg(Linked Group 3) 4 mg, Intravenous, EVERY 6 HOURS NEEDED, Starting on Sun06/12/21 at 0150, Until Sun06/21/21 at 1627, Nausea / Vomiting, 1st line for Nausea/Vomiting Polyvinyl Alcohol-Povidone PF (REFRESH) ophthalmic solution 2 drop 2 drop, Both Eyes, NEEDED, Starting on Sun06/12/21 at 1922, Until Sun06/21/21 at 1627, Dry Eyes, Patient may self-administer. 0159 (Given - Provider: Keysha Figueroa RN) sodium chloride 0.9% IV solution 250 mL Intravenous, at 20 mL/hr, NEEDED, Starting on Sun06/12/21 at 0149, Until Sun06/21/21 at 1627, Carrier Fluid - See Admin. Inst, 250mL 0.9NS to be used as carrier fluid for intermittent small volume or piggyback medication administration as needed. Infusion rate of the carrier fluid should be set at 20 mL/hr unless the rate as the intermittent medication is less than 20 mL/hr. For intermittent medications with a rate less than 20 mL/hr set the carrier fluid at that rate of the intermittent or piggy back medication. Linked Groups Order Group 1: insulin aspart (NovoLOG) CSII infusion pumpJump to med Subcutaneous, CONTINUOUS, Starting on Sun06/20/21 at 1115, Until Sun06/21/21 at 1627
-Prescribing clinician to enter insulin pump 24 hour administration time, hourly intervals and basal rates. 00:00 = 1.5 units/hr, 24 hr total = 36 units
And insulin aspart (NovoLOG) CSII infusion pumpJump to med Subcutaneous, BEFORE MEALS & AT BEDTIME, First dose on Sun06/20/21 at 1115, Until Discontinued
BEFORE MEALS & AT BEDTIME, THIS ORDER IS FOR DOCUMENTARTION OF BOLUSES DELIVERED BY PATIENT VIA INSULIN PUMP. PLEASE CONTINUE TO RECORD CARBS. 1 unit per 4 grams of carbs; Sensitivity (Correction): 25, Target 110
And BLOOD GLUCOSE (POC DEVICE) (CANCELED) Routine, 4 TIMES DAILY BEFORE MEALS & AT BEDTIME, First occurrence on Sun06/20/21 at 1530
Blood Glucose (POC) QAC & HS: If any blood glucose is greater than 300mg/dl, then repeat Blood Glucose (POC) in 2 hours. If the initial blood glucose was greater than 300mg/dl and if second blood glucose is greater than 200mg/dl, then notify Leather Skinner. And BLOOD GLUCOSE (POC DEVICE) (CANCELED) Routine, PRN, Starting on Sun06/20/21 at 1111, Until Specified
For all Blood Glucose LESS THAN 80 mg/dL, treat per Hypoglycemia in Non- Adults Clinical Practice Guideline (CPG) and recheck glucose 15 min after treatment. Repeat per CPG until glucose GREATER THAN 80 mg/dL. Once glucose IS GREATER THAN 80 mg/dL, recheck Blood Glucose every 1 hour x2, then resume as previously ordered. For Blood Glucose LESS THAN 80 mg/dL on admission OR LESS than 45 mg/dL at any time, obtain POC Blood Glucose every 4 hours for 6 occurrences AFTER treating per CPG. Obtain blood glucose for symptoms of hypoglycemia: sweating, shaking, fatigue, rapid pulse, slow thinking & dizziness. Notify physician w/results. Obtain blood glucose for symptoms of hyperglycemia: excessive thirst, blurred vision, excessive urination & tiredness. Notify physician w/results. If patient NPO, obtain POC Blood Glucose prior to administration of any insulin products. And COMMUNICATION ORDER FOR NURSING CARE: For Blood Glucose LESS THAN 80 mg/dl (CANCELED) Routine, CONTINUOUS, Starting on Sun06/20/21 at 1112, Until Specified
For Blood Glucose LESS THAN 80 follow Hypoglycemia in Non- Adults Clinical Practice Guideline (CPG) And dextrose 50% injection 7.5-25 gJump to med 7.5-25 g, Intravenous, ADMINISTER DIRECTED, Starting on Sun06/20/21 at 1111, Until Sun06/21/21 at 1627, Blood glucose <80 mg/dL
For patients who are not alert, are NPO, or are on IV insulin infusion administer as directed per Hypoglycemia in Non- Adults Clinical Practice Guideline. For Blood Glucose: 60-79 mg/dL administer 7.5 gm (15ml); 45-59 mg/dL administer 12.5 gm (25ml); less than 45mg/dL administer 25gm (50ml). Extravasation Risk. ++Dextrose 50% injection is on national shortage and has been removed from most Pyxis machines. Use oral glucose when possible. Obtain order for oral glucose if needed. If dextrose 50% is necessary, obtain from Pharmacy if not in Pyxis.++
And glucose (GLUTOSE) 40 % oral gel 1-2 TubeJump to med 1-2 Tube, Oral, ADMINISTER DIRECTED, Starting on Sun06/20/21 at 1111, Until Sun06/21/21 at 1627, Blood glucose <80 mg/dL
For patients who are alert, able to tolerate PO intake and with intact cognitive status administer as directed per Hypoglycemia in Non- Adults Clinical Practice Guideline. For Blood Glucose: 60-79 mg/dL administer 1 tube; 45-59 mg/dl administer 1.5 tubes; less than 45 mg/dL administer 2 tubes. Each tube of 37.5g delivers 15g of carbohydrate. ++ National shortage requires use of alternate product. For Insta-Glucose product: Each tube of 31g delivers 24g of carbohydrate. Percent strength 77.4% represents glucose content, equal to ~40% dextrose content. ++
And NOTIFY PHYSICIAN, Blood Glucose LESS THAN 80 mg/dl (CANCELED) Routine, CONTINUOUS, Starting on Sun06/20/21 at 1112, Until Specified
Who to Notify: Leather Skinner
For all Blood Glucose LESS THAN 80 mg/dl, notify Leather Skinner after treatment per Hypoglycemia in Non- Adults Clinical Practice Guideline And CSII Pump Site Care per Protocol (CANCELED) Routine, DAILY, First occurrence on Sun06/21/21 at 0900
CSII Pump Site Care per Protocol: Patient to manage own pump settings. Patient to clear pump and self record total daily basal insulin dose. Patient to manage infusion site dressing change every 2 to 3 days and PRN. Patient rotates site location as instructed. RN to assess/document site location at 2400 in chart. And Carbohydrate counts with meals (CANCELED) Routine, CONTINUOUS, Starting on Sun06/20/21 at 1112, Until Specified
Carbohydrate counts are to be done after each patient meal and with bedtime snack. Group 2: insulin lispro (HumaLOG) injection (CANCELED) Subcutaneous, 4 TIMES DAILY WITH MEALS & AT BEDTIME, First dose on Sun06/12/21 at 0800, Until Discontinued
Correction Factor: 151-200 = 1 unit; 201- 250 = 2 units; 251-300 = 3 units; 301-350 = 4 units; 351-400 = 5 units; Kwikpen: Prime pen before each injection; refer to Pen Priming and Care Handout for further details. Warning! Confirm patient. Insulin pen is for labeled individual patient use ONLY.
And BLOOD GLUCOSE (POC DEVICE) (CANCELED) Routine, 4 TIMES DAILY BEFORE MEALS & AT BEDTIME, First occurrence on Sun06/12/21 at 0745
If any Blood Glucose (POC) is greater than 300mg/dl, then repeat Blood Glucose (POC) in 2 hours. If the initial blood glucose was greater than 300mg/dl and if second blood glucose is greater than 200md/dl, then notify Leather Skinner. And BLOOD GLUCOSE (POC DEVICE) (CANCELED) Routine, DIRECTED, Starting on Sun06/12/21 at 0148, Until Specified
For all Blood Glucose LESS THAN 80 mg/dL, treat per Hypoglycemia in Non- Adults Clinical Practice Guideline (CPG) and recheck glucose 15 min after treatment. Repeat per CPG until glucose GREATER THAN 80 mg/dL. Once glucose IS GREATER THAN 80 mg/dL, recheck Blood Glucose every 1 hour x2, then resume as previously ordered. For Blood Glucose LESS THAN 80 mg/dL on admission OR LESS than 45 mg/dL at any time, obtain POC Blood Glucose every 4 hours for 6 occurrences AFTER treating per CPG. Obtain blood glucose for symptoms of hypoglycemia: sweating, shaking, fatigue, rapid pulse, slow thinking & dizziness. Notify physician w/results. Obtain blood glucose for symptoms of hyperglycemia: excessive thirst, blurred vision, excessive urination & tiredness. Notify physician w/results. If patient NPO, obtain POC Blood Glucose prior to administration of any insulin products. And COMMUNICATION ORDER FOR NURSING CARE: For Blood Glucose LESS THAN 80 mg/dl (CANCELED) Routine, CONTINUOUS, Starting on Sun06/12/21 at 0149, Until Specified
For Blood Glucose LESS THAN 80 mg/dl follow Hypoglycemia in Non- Adults Clinical Practice Guideline (CPG) And dextrose 50% injection 7.5-25 gJump to med 7.5-25 g, Intravenous, ADMINISTER DIRECTED, Starting on Sun06/12/21 at 0148, Until Sun06/21/21 at 1627, Blood glucose <80 mg/dL
For patients who are not alert, are NPO, or are on IV insulin infusion administer as directed per Hypoglycemia in Non- Adults Clinical Practice Guideline. For Blood Glucose: 60-79 mg/dL administer 7.5 gm (15ml); 45-59 mg/dL administer 12.5 gm (25ml); less than 45mg/dL administer 25gm (50ml). Extravasation Risk. ++Dextrose 50% injection is on national shortage and has been removed from most Pyxis machines. Use oral glucose when possible. Obtain order for oral glucose if needed. If dextrose 50% is necessary, obtain from Pharmacy if not in Pyxis.++
And glucose (GLUTOSE) 40 % oral gel 1-2 TubeJump to med 1-2 Tube, Oral, ADMINISTER DIRECTED, Starting on Sun06/12/21 at 0148, Until Sun06/21/21 at 1627, Blood glucose <80 mg/dL
For patients who are alert, able to tolerate PO intake and with intact cognitive status administer as directed per Hypoglycemia in Non- Adults Clinical Practice Guideline. For Blood Glucose: 60-79 mg/dL administer 1 tube; 45-59 mg/dl administer 1.5 tubes; less than 45 mg/dL administer 2 tubes. Each tube of 37.5g delivers 15g of carbohydrate. ++ National shortage requires use of alternate product. For Insta-Glucose product: Each tube of 31g delivers 24g of carbohydrate. Percent strength 77.4% represents glucose content, equal to ~40% dextrose content. ++
And NOTIFY PHYSICIAN, Blood Glucose LESS THAN 80 mg/dl (CANCELED) Routine, CONTINUOUS, Starting on Sun06/12/21 at 0149, Until Specified
Who to Notify: Leather Skinner
For all Blood Glucose LESS THAN 80 mg/dl, notify Leather Skinner after treatment per Hypoglycemia in Non- Adults Clinical Practice Guideline And Carbohydrate counts with meals (CANCELED) Routine, CONTINUOUS, Starting on Sun06/12/21 at 0149, Until Specified
Carbohydrate counts are to be done after each patient meal and with snack. Group 3: ondansetron 4mg/2ml (ZOFRAN) injection 4 mgJump to med 4 mg, Intravenous, EVERY 6 HOURS NEEDED, Starting on Sun06/12/21 at 0150, Until Sun06/21/21 at 1627, Nausea / Vomiting, 1st line for Nausea/Vomiting Or ondansetron (ZOFRAN) tablet 4 mgJump to med 4 mg, Oral, EVERY 6 HOURS NEEDED, Starting on 06/12/21 at 0150, Until Sun06/21/21 at 1627, Nausea / Vomiting, 1st line for Nausea/Vomiting Care Teams (unrecognized sec tion and content) Bulb Farmworker Relationship Specialty Start Date End Date Handy Henderson DO PCP - General Family Medicine 06/30/20 Diego Rodriguez MD [address] [place] [address] [phone] Consulting Physician Cardiovascular Medicine 04/21/11 Peter Leon MD [address] [place] [phone] Consulting Physician Endocrinology, Diabetes & Metabolism 04/21/11 Bulb Farmworker Relationship Specialty Start Date End Date Handy Henderson DO [address] [place], [place] [id number] PCP - General Family Practice 10/09/20 Rosario Cardenas I, DO [address] [facility] [address] [place], [place] [address] Referring Nephrology 04/15/18 Javier Licona [address] [facility] [address] [place] [phone] Physician Endocrinology 04/15/18 Abad Garrett (Hist) [address] [place], [place] [address] Physician Cardiology 04/15/18 Bulb Farmworker Relationship Specialty Start Date End Date Handy Henderson DO PCP - General Family Medicine 06/30/20 Diego Rodriguez MD [address] [place] [address] [phone] Consulting Physician Cardiovascular Medicine 04/21/11 Peter Leon MD [address] [place] [phone] Consulting Physician Endocrinology, Diabetes & Metabolism 04/21/11 Bulb Farmworker Relationship Specialty Start Date End Date Handy Henderson, DO [address] [facility] [place] [address] PCP - General Family Practice 10/09/20 Rosario Cardenas I, DO [address] [facility] [address] [place] [address] [place] [address] Referring Nephrology 04/15/18 Javier Licona [address] [place] [address] [place] [address] Physician Endocrinology 04/15/18 Abad Garrett (Hist) [address] [place] [address] Physician Cardiology 04/15/18 Bulb Farmworker Relationship Specialty Start Date End Date Handy Henderson, DO [address] [facility] [place] [address] PCP - General Family Practice 10/09/20 Rosario Cardenas I, DO [address] [facility] [address] [place] [address] Referring Nephrology 04/15/18 Javier Licona [address] [place] [address] [place] [address] Physician Endocrinology 04/15/18 Abad Garrett (Hist) [address] [place] [address] Physician Cardiology 04/15/18 Bulb Farmworker Relationship Specialty Start Date End Date Handy Henderson, DO [address] [place] [address] PCP - General Family Practice 10/09/20 Rosario Cardenas I, DO [address] [place] [address] [place] [address] Referring Nephrology 04/15/18 Javier Licona [address] [place] [address] [place] [address] Physician Endocrinology 04/15/18 Abad Garrett (Hist) [address] [place] [address] Physician Cardiology 04/15/18 Bulb Farmworker Relationship Specialty Start Date End Date Handy Henderson, DO [address] [place] [address] PCP - General Family Practice 10/09/20 Rosario Cardenas I, DO [address] [place] [address] [place] [address] Referring Nephrology 04/15/18 Javier Licona [address] [place] [address] [place] [address] Physician Endocrinology 04/15/18 Abad Garrett (Hist) [address] [place] [address] Physician Cardiology 04/15/18 Bulb Farmworker Relationship Specialty Start Date End Date Handy Henderson, DO [address] [place] [address] PCP - General Family Practice 10/09/20 Rosario Cardenas I, DO [address] [place] [address] [place] [address] Referring Nephrology 04/15/18 Javier Licona [address] [place] [address] [place] [address] Physician Endocrinology 04/15/18 Abad Garrett (Hist) [address] [place] [address] Physician Cardiology 04/15/18 Bulb Farmworker Relationship Specialty Start Date End Date Handy Henderson, DO [address] [place] [address] PCP - General Family Practice 10/09/20 Rosario Cardenas I, DO [address] [place] [address] [place] [address] Referring Nephrology 04/15/18 Javier Licona [address] [place] [address] [place] [address] Physician Endocrinology 04/15/18 Abad Garrett (Hist) [address] [place] [address] Physician Cardiology 04/15/18 Bulb Farmworker Relationship Specialty Start Date End Date Handy Henderson, DO [address] [place] [address] PCP - General Family Practice 10/09/20 Rosario Cardenas I, DO [address] [place] [address] [place] [address] Referring Nephrology 04/15/18 Javier Licona [address] [place] [address] [place] [address] Physician Endocrinology 04/15/18 Abad Garrett (Hist) [address] [place] [address] Physician Cardiology 04/15/18 Bulb Farmworker Relationship Specialty Start Date End Date Handy Henderson, DO [address] [place] [address] PCP - General Family Practice 10/09/20 Rosario Cardenas I, DO [address] [place] [address] [place] [address] Referring Nephrology 04/15/18 Javier Licona [address] [place] [address] [place] [address] Physician Endocrinology 04/15/18 Abad Garrett (Hist) [address] [place] [address] Physician Cardiology 04/15/18 Bulb Farmworker Relationship Specialty Start Date End Date Handy Henderson, DO [address] [place] [address] PCP - General Family Practice 10/09/20 Rosario Cardenas I, DO [address] [place] [address] [place] [address] Referring Nephrology 04/15/18 Javier Licona [address] [place] [address] [place] [address] Physician Endocrinology 04/15/18 Abad Garrett (Hist) [address] [place] [address] Physician Cardiology 04/15/18 Bulb Farmworker Relationship Specialty Start Date End Date Handy Henderson, DO [address] [place] [address] PCP - General Family Practice 10/09/20 Rosario Cardenas I, DO [address] [facility] [address] [place] [address] Referring Nephrology 04/15/18 Javier Licona [address] [place] [address] [place] [address] Physician Endocrinology 04/15/18 Abad Garrett (Hist) [address] [facility] [place] [place] [address] Physician Cardiology 04/15/18 Bulb Farmworker Relationship Specialty Start Date End Date Handy Henderson DO [address] [facility] [place] [address] PCP - General Family Practice 10/09/20 Rosario Cardenas I, DO [address] [place] [address] Referring Nephrology 04/15/18 Javier Licona [address] [facility] [address] [place] [address] Physician Endocrinology 04/15/18 Abad Garrett (Hist) [address] [facility] [place] [place] [address] Physician Cardiology 04/15/18 Bulb Farmworker Relationship Specialty Start Date End Date Handy Henderson DO PCP - General Family Medicine 06/30/20 Diego Rodriguez MD [address] [place] [address] Consulting Physician Cardiovascular Medicine 04/21/11 Peter Leon MD [address] [address] Consulting Physician Endocrinology, Diabetes & Metabolism 04/21/11 Bulb Farmworker Relationship Specialty Start Date End Date Handy Henderson, DO [address] [place] [address] PCP - General Family Practice 10/09/20 Rosario Cardenas I, DO [address] [place] [address] [place] [address] Referring Nephrology 04/15/18 Javier Licona [address] [place] [address] [place] [address] Physician Endocrinology 04/15/18 Abad Garrett (Hist) [address] [place] [address] Physician Cardiology 04/15/18 Bulb Farmworker Relationship Specialty Start Date End Date Handy Henderson, DO [address] [place] [address] PCP - General Family Practice 10/09/20 Rosario Cardenas I, DO [address] [place] [address] [place] [address] Referring Nephrology 04/15/18 Javier Licona [address] [place] [address] [place] [address] Physician Endocrinology 04/15/18 Abad Garrett (Hist) [address] [place] [address] Physician Cardiology 04/15/18 Bulb Farmworker Relationship Specialty Start Date End Date Handy Henderson, DO [address] [place] [address] PCP - General Family Medicine 10/09/20 Rosario Cardenas I, DO [address] [place] [address] [place] [address] Referring Nephrology 04/15/18 Javier Licona [address] [place] [address] [place] [address] Physician Endocrinology 04/15/18 Abad Garrett (Hist) [address] [place] [address] Physician Cardiology 04/15/18 Bulb Farmworker Relationship Specialty Start Date End Date Handy Henderson, DO [address] [place] [address] PCP - General Family Medicine 10/09/20 Rosario Cardenas I, DO [address] [place] [address] [place] [address] Referring Nephrology 04/15/18 Javier Licona [address] [place] [address] [place] [address] Physician Endocrinology 04/15/18 Abad Garrett (Hist) [address] [place] [address] Physician Cardiology 04/15/18 Bulb Farmworker Relationship Specialty Start Date End Date Handy Henderson, DO [address] [place] [address] PCP - General Family Medicine 10/09/20 Rosario Cardenas I, DO [address] [place] [address] [place] [address] Referring Nephrology 04/15/18 Javier Licona [address] [place] [address] [place] [address] Physician Endocrinology 04/15/18 Abad Garrett (Hist) [address] [place] [address] Physician Cardiology 04/15/18 Bulb Farmworker Relationship Specialty Start Date End Date Handy Henderson, DO [address] [place] [address] PCP - General Family Medicine 10/09/20 Rosario Cardenas I, DO [address] [place] [address] [place] [address] Referring Nephrology 04/15/18 Javier Licona [address] [place] [address] [place] [address] Physician Endocrinology 04/15/18 Abad Garrett (Hist) [address] [place] [address] Physician Cardiology 04/15/18 Bulb Farmworker Relationship Specialty Start Date End Date Handy Henderson, DO [address] [place] [address] PCP - General Family Medicine 10/09/20 Rosario Cardenas I, DO [address] [place] [address] [place] [address] Referring Nephrology 04/15/18 Javier Licona [address] [place] [address] [place] [address] Physician Endocrinology 04/15/18 Abad Garrett (Hist) [address] [place] [address] Physician Cardiology 04/15/18 Bulb Farmworker Relationship Specialty Start Date End Date Handy Henderson, DO [address] [place] [address] PCP - General Family Medicine 10/09/20 Rosario Cardenas I, DO [address] [place] [address] [place] [address] Referring Nephrology 04/15/18 Javier Licona [address] [place] [address] [place] [address] Physician Endocrinology 04/15/18 Abad Garrett (Hist) [address] [place] [address] Physician Cardiology 04/15/18 Bulb Farmworker Relationship Specialty Start Date End Date Handy Henderson, DO [address] [place] [address] PCP - General Family Medicine 10/09/20 Rosario Cardenas I, DO [address] [place] [address] [place] [address] Referring Nephrology 04/15/18 Javier Licona [address] [place] [address] [place] [address] Physician Endocrinology 04/15/18 Abad Garrett (Hist) [address] [place] [address] Physician Cardiology 04/15/18 Bulb Farmworker Relationship Specialty Start Date End Date Handy Henderson, DO [address] [place] [address] PCP - General Family Medicine 10/09/20 Rosario Cardenas I, DO [address] [place] [address] [place] [address] Referring Nephrology 04/15/18 Javier Licona [address] [place] [address] [place] [address] Physician Endocrinology 04/15/18 Abad Garrett (Hist) [address] [place] [address] Physician Cardiology 04/15/18 Bulb Farmworker Relationship Specialty Start Date End Date Handy Henderson, DO [address] [place] [address] PCP - General Family Medicine 10/09/20 Rosario Cardenas I, DO [address] [place] [address] [place] [address] Referring Nephrology 04/15/18 Javier Licona [address] [place] [place] [address] Physician Endocrinology 04/15/18 Abad Garrett [address] [place] [address] Physician Cardiology 04/15/18 Bulb Farmworker Relationship Specialty Start Date End Date Handy Henderson DO [address] [place] [address] PCP - General Family Medicine 10/09/20 Rosario Cardenas I, DO [address] [place] [address] [place] [address] Referring Nephrology 04/15/18 Javier Licona [address] [place] [address] [place] [address] Physician Endocrinology 04/15/18 Abad Garrett [address] [place] [address] Physician Cardiology 04/15/18 Team Status: Active Member Role Status Dates Dr. Handy Henderson DO Family Provider Active Dr. Handy Henderson , DO Primary Care Provider Active Team Status: Inactive Member Role Status Dates Dr. Handy Henderson , DO Primary Care Provider, Referr ing Provider Active Gabi Lieberman NP, INVESTMENT COUNSELOR-C Attending Provider Active Team Status: Inactive Member Role Status Dates Dr. Handy Henderson DO Primary Care Provider, Referr ing Provider Active Mirna Salgado NP-C Attending Provider Active Team Status: Inactive Member Role Status Dates Dr. Handy Henderson DO Primary Care Provider Active Dr. Troy Vega DO Attending Provider, Emergency Provide r Active Team Status: Inactive Member Role Status Dates Dr. Handy Henderson , DO Primary Care Provider Active Dr. Seth Low MD Attending Provider, Referring Provi vanessa Active Bulb Farmworker Relationship Specialty Start Date End Date Handy Henderson DO [address] [facility] [place] [address] PCP - General Family Medicine 10/09/20 Rosario Cardenas I, DO [address] [place] [address] [place] [address] Referring Nephrology 04/15/18 [address] [facility] [address] [place] [address] Physician Endocrinology 04/15/18 Abad Garrett [address] [facility] [place] [address] Physician Cardiology 04/15/18 Bulb Farmworker Relationship Specialty Start Date End Date Handy Henderson DO [address] [facility] [place] [address] PCP - General Family Medicine 10/09/20 Rosario Cardenas I, DO [address] [place] [address] [place] [address] Referring Nephrology 04/15/18 Javier Licona [address] [place] [address] Physician Endocrinology 04/15/18 Abad Garrett E [address] [place] [address] Physician Cardiology 04/15/18 Bulb Farmworker Relationship Specialty Start Date End Date Handy Henderson, DO [address] [place] [address] PCP - General Family Medicine 10/09/20 Rosario Cardenas I, DO [address] [place] [address] [place] [address] Referring Nephrology 04/15/18 Javier Licona [address] [place] [address] Physician Endocrinology 04/15/18 Abad Garrett E [address] [place] [address] Physician Cardiology 04/15/18 Bulb Farmworker Relationship Specialty Start Date End Date Handy Henderson, DO [address] [place] [address] PCP - General Family Medicine 10/09/20 Rosario Cardenas I, DO [address] [place] [address] [place] [address] Referring Nephrology 04/15/18 Javier Licona [address] [place] [address] [place] [address] Physician Endocrinology 04/15/18 Abad Garrett E [address] [place] [address] Physician Cardiology 04/15/18 Bulb Farmworker Relationship Specialty Start Date End Date Hanyd Henderson, DO [address] [place] [address] PCP - General Family Medicine 10/09/20 Rosario Cardenas I, DO [address] [place] [address] [place] [address] Referring Nephrology 04/15/18 Javier Licona [address] [place] [address] Physician Endocrinology 04/15/18 Abad Garrett [address] [facility], [place] [address] Physician Cardiology 04/15/18 Bulb Farmworker Relationship Specialty Start Date End Date Handy Henderson DO [address] [facility] [place] [address] PCP - General Family Medicine 10/09/20 Rosario Cardenas I, DO [address] [place] [address] [place] [address] Referring Nephrology 04/15/18 Javier Licona [address] [place] [address] Physician Endocrinology 04/15/18 Abad Garrett [address] [facility], [place] [address] Physician Cardiology 04/15/18 Bulb Farmworker Relationship Specialty Start Date End Date Handy Henderson DO [address] [facility] 2nd [place] [address] PCP - General Family Medicine 06/30/20 Diego Rodriguez MD [address] [place] [address] Consulting Physician Cardiovascular Disease 04/21/11 Peter Leon MD [address] [facility] 2nd [place] [address] Consulting Physician Endocrinology, Diabetes & Metabolism 04/21/11 Bulb Farmworker Relationship Specialty Start Date End Date Handy Henderson DO [address] [place] [address] PCP - General Family Medicine 10/09/20 Rosario Cardenas I DO [address] [address] Referring Nephrology 04/15/18 Javier Licona [address] [place] [phone] Physician Endocrinology 04/15/18 Abad Garrett [address] [place] [address] Physician Cardiology 04/15/18 Bulb Farmworker Relationship Specialty Start Date End Date Handy Henderson DO [address] [place] [address] PCP - General Family Medicine 10/09/20 Rosario Cardenas I, DO [address] [place] [address] [place], [place] [address] Referring Nephrology 04/15/18 Javier Licona [address] [place] [address] Physician Endocrinology 04/15/18 Abad Garrett [address] [place] [address] Physician Cardiology 04/15/18 Bulb Farmworker Relationship Specialty Start Date End Date Handy Hendersno DO [address] [place] [address] PCP - General Family Medicine 10/09/20 Rosario Cardenas I, DO [address] [place] [address] Referring Nephrology 04/15/18 Javier Licona [address] [place] [address] Physician Endocrinology 04/15/18 Abad Garrett [address] [place] [address] Physician Cardiology 04/15/18 Bulb Farmworker Relationship Specialty Start Date End Date Handy Henderson DO [address] [place] [address] PCP - General Family Medicine 10/09/20 Rosario Cardenas I, DO [address] [place] [address] Referring Nephrology 04/15/18 Javier Licona [address] [place] [phone] Physician Endocrinology 04/15/18 Abad Garrett [address] [place] [address] Physician Cardiology 04/15/18 Bulb Farmworker Relationship Specialty Start Date End Date Handy Henderson DO [address] [facility] [place] [address] PCP - General Family Medicine 10/09/20 Rosario Cardenas I, [address] [place] [address] Referring Nephrology 04/15/18 Javier Licona [address] [place] [address] Physician Endocrinology 04/15/18 Abad Garrett [address] [place], [place] [address] Physician Cardiology 04/15/18 Bulb 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 Relationship Specialty Start Date End Date Handy Henderson DO [address] [facility] [place] [address] PCP - General Family Medicine 10/09/20 Rosario Cardenas I, DO [address] [place] [address] Referring Nephrology 04/15/18 Javier Licona [address] [place] [address] Physician Endocrinology 04/15/18 Abad Garrett [address] [place] [address] Physician Cardiology 04/15/18 Bulb Farmworker Relationship Specialty Start Date End Date Handy Henderson DO [address] [facility] [place] [address] PCP - General Family Medicine 10/09/20 Rosario Cardenas I, DO [address] [place] [address] Referring Nephrology 04/15/18 Javier Licona [address] [facility] [address] [place] [address] Physician Endocrinology 04/15/18 Abad Garrett [address] [place] [address] Physician Cardiology 04/15/18 Bulb Farmworker Relationship Specialty Start Date End Date Handy Hednerson DO [address] [place] [address] PCP - General Family Medicine 10/09/20 Rosario Cardenas I, DO [address] [place] [address] Referring Nephrology 04/15/18 Javier Licona [address] [facility] [address] [place] [address] Physician Endocrinology 04/15/18 Abad Garrett [address] [place], [place] [address] Physician Cardiology 04/15/18 Bulb Farmworker Relationship Specialty Start Date End Date Handy Henderson DO [address] [place] [address] PCP - General Family Medicine 10/09/20 Rosario Cardenas I, DO [address] [place] [address] Referring Nephrology 04/15/18 Javier Licona [address] [place] [address] Physician Endocrinology 04/15/18 Abad Garrett [address] [place] [address] Physician Cardiology 04/15/18 Bulb Farmworker Relationship Specialty Start Date End Date Handy Henderson DO [address] [place] [address] PCP - General Family Medicine 10/09/20 Rosario Cardenas I, DO [address] [place] [address] Referring Nephrology 04/15/18 Javier Licona [address] [place] [address] Physician Endocrinology 04/15/18 Abad Garrett [address] [place] [address] Physician Cardiology 04/15/18 Team Status: Active Member Role Status Dates Dr. Handy Henderson , DO Primary Care Provider Active Dr. Shamir Tsai MD Attending Provider Active Erica Older INVESTMENT COUNSELOR, INVESTMENT COUNSELOR-C Referring Provider Active Team Status: Inactive Member Role Status Dates Dr. Handy Henderson , DO Primary Care Provider Active Erica Older INVESTMENT COUNSELOR, INVESTMENT COUNSELOR-C Attending Provider, Referring Provi vanessa Active Team Status: Active Member Role Status Dates Dr. Handy Henderson , DO Primary Care Provider Active Dr. Shamir Tsai MD Attending Provider Active Erica Orellana INVESTMENT COUNSELOR, INVESTMENT COUNSELOR-C Referring Provider Active Team Status: Inactive Member Role Status Dates Dr. Handy Henderson DO Primary Care Provider, Referr ing Provider Active Dr. Nicolas Lawrence MD Attending Provider Active Team Status: Inactive Member Role Status Dates Dr. Handy Henderson DO Primary Care Provider Active Erica Orellana INVESTMENT COUNSELOR, INVESTMENT COUNSELOR-C Attending Provider, Referring Provider Active Team Status: Inactive Member Role Status Dates Dr. Handy Henderson DO Primary Care Provider Active Dr. 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 Handy Henderson DO Primary Care Provider, Referr ing Provider Active Dr. Pavan Shell MD Active Gabi Lieberman INVESTMENT COUNSELOR, INVESTMENT COUNSELOR-C Attending Provider Active Team Status: Inactive Member Role Status Dates Dr. Handy Henderson DO Primary Care Provider Active Dr. Cesar Reyna MD Attending Provider, Emergency Provi vanessa Active Team Status: Inactive Member Role Status Dates Dr. Handy Henderson DO Primary Care Provider Active Gabi Lieberman INVESTMENT COUNSELOR, INVESTMENT COUNSELOR-C Attending Provider, Referring P deandra Active Bulb Farmworker Relationship Specialty Start Date End Date Handy Henderson DO [address] [facility] [place] [address] PCP - General Family Medicine 10/09/20 Rosario Cardenas I, DO [address] [place] [address] Referring Nephrology 04/15/18 Javier Licona [address] [facility] [address] [place] [address] Physician Endocrinology 04/15/18 Abad Garrett [address] [place] [address] Physician Cardiology 04/15/18 Bulb Farmworker Relationship Specialty Start Date End Date Handy Henderson DO [address] [facility] [address] PCP - General Family Medicine 10/09/20 Rosario Cardenas I, DO [address] [facility] [address] [place] [address] Referring Nephrology 04/15/18 Javier Licona [address] [facility] [address] [place] [address] Physician Endocrinology 04/15/18 Abad Garrett [address] [place], [place] [address] Physician Cardiology 04/15/18 Team Status: Active Member Role Status Dates Dr. Handy Henderson DO Primary Care Provider Active Dr. Nicolas Lawrence MD Attending Provider, Referring Provider, Other Provider Active Team Status: Inactive Member Role Status Dates Dr. Handy Henderson DO Primary Care Provider Active Dr. Nicolas aLwrence MD Attending Provider, Referring Pro vider Active Bulb Farmworker Relationship Specialty Start Date End Date Handy Henderson DO [address] [facility] [place] [address] PCP - General Family Medicine 10/09/20 Rosario Cardenas I, DO [address] [place] [address] Referring Nephrology 04/15/18 Javier Licona [address] [place] [address] Physician Endocrinology 04/15/18 Abad Garrett [address] [place] [address] Physician Cardiology 04/15/18 Bulb Farmworker Relationship Specialty Start Date End Date Handy Henderson DO [address] [facility] [place] [address] PCP - General Family Medicine 10/09/20 Rosario Cardenas I, DO [address] [place] [address] Referring Nephrology 04/15/18 Javier Licona [address] [place] [address] Physician Endocrinology 04/15/18 Abad Garrett [address] [place] [address] Physician Cardiology 04/15/18 Bulb Farmworker Relationship Specialty Start Date End Date Handy Henderson DO [address] [facility] [place] [address] PCP - General Family Medicine 10/09/20 Rosario Cardenas I, DO [address] [place] [address] Referring Nephrology 04/15/18 Javier Licona [address] [facility] [address] [place] [address] Physician Endocrinology 04/15/18 Abad Garrett [address] [place] [address] Physician Cardiology 04/15/18 Bulb Farmworker Relationship Specialty Start Date End Date Handy Henderson DO [address] [place] [address] PCP - General Family Medicine 10/09/20 Rosario Cardenas I, DO [address] [facility] [address] [place] [address] Referring Nephrology 04/15/18 Javier Licona [address] [facility] [address] [place] [address] Physician Endocrinology 04/15/18 Abad Garrett [address] [place] [address] Physician Cardiology 04/15/18 Bulb Farmworker Relationship Specialty Start Date End Date Handy Henderson DO [address] [place] [address] PCP - General Family Medicine 06/30/20 Diego Rodriguez MD [address] [place] [address] Consulting Physician Cardiovascular Disease 04/21/11 Peter Leon MD [address] [place] [address] Consulting Physician Endocrinology, Diabetes & Metabolism 04/21/11 Bulb Farmworker Relationship Specialty Start Date End Date Handy Henderson DO [address] [facility] [place] [address] PCP - General Family Medicine 10/09/20 Rosario Cardenas I, DO [address] [place], [place] [address] Referring Nephrology 04/15/18 Javier Licona [address] [place] [address] Physician Endocrinology 04/15/18 Abad Garrett [address] [place] [address] Physician Cardiology 04/15/18 Bulb Farmworker Relationship Specialty Start Date End Date Handy Hednerson DO [address] [facility] [place] [address] PCP - General Family Medicine 10/09/20 Rosario Cardenas I, DO [address] [place] [address] Referring Nephrology 04/15/18 Javier Licona [address] [place] [address] Physician Endocrinology 04/15/18 Abad Garrett [address] [place] [address] Physician Cardiology 04/15/18 Bulb Farmworker Relationship Specialty Start Date End Date Handy Henderson DO [address] [place] [address] PCP - General Family Medicine 10/09/20 Rosario Cardenas I, DO [address] [place] [address] Referring Nephrology 04/15/18 Javier Licona [address] [place] [address] Physician Endocrinology 04/15/18 Abad Garrett [address] [place] [address] Physician Cardiology 04/15/18 Bulb Farmworker Relationship Specialty Start Date End Date Handy Henderson DO [address] [place] [address] PCP - General Family Medicine 10/09/20 Rosario Cardenas I, DO [address] [place] [address] Referring Nephrology 04/15/18 Javier Licona [address] [place] [address] Physician Endocrinology 04/15/18 Abad Garrett [address] [place] [address] Physician Cardiology 04/15/18 Bulb Farmworker Relationship Specialty Start Date End Date Handy Henderson DO [address] [place] [place] [address] PCP - General Family Medicine 10/09/20 Rosario Cardenas I, DO [address] [place] [address] Referring Nephrology 04/15/18 Javier Licona [address] [place] [address] Physician Endocrinology 04/15/18 Abad Garrett [address] [place] [address] Physician Cardiology 04/15/18 Bulb Farmworker Relationship Specialty Start Date End Date Handy Henderson DO [address] [place] [address] PCP - General Family Medicine 10/09/20 Rosario Cardenas I, DO [address] [place] [address] Referring Nephrology 04/15/18 Javier Licona [address] [place] [phone] Physician Endocrinology 04/15/18 Abad Garrett [address] [place] [address] Physician Cardiology 04/15/18 Maya Holguin, NORAH.ENGINE SETTER [address] [facility] MD [id number] Global Coordinator Family [facility] 03/09/24 Tara Carballo APRN.ENGINE SETTER [address] [place] [address] Global Coordinator [facility] 03/09/24 Bulb Farmworker Relationship Specialty Start Date End Date Handy Hendesron DO [address] [facility] [place] [address] PCP - General Family Medicine 10/09/20 Rosario Cardenas I, DO [address] [address] Referring Nephrology 04/15/18 Javier Licona [address] [address] Physician Endocrinology 04/15/18 Abad Garrett [address] [place], [place] [address] Physician Cardiology 04/15/18 Maya Holguin, NORAH.ENGINE SETTER [address] [facility] [place] [address] Global Coordinator [facility] 03/09/24 Tara Carballo APRN.ENGINE SETTER [address] [facility] [place] [address] [facility] 03/09/24 Bulb Farmworker Relationship Specialty Start Date End Date Handy Henderson DO [address] [place] [address] PCP - General Family Medicine 10/09/20 Rosario Cardenas I, DO [address] [facility] [address] [place] [address] Referring Nephrology 04/15/18 Javier Licona [address] [facility] [address] [place] [address] Physician Endocrinology 04/15/18 Abad Garrett MD [address] [place] [address] Physician Cardiology 04/15/18 Maya Holguin APRN.ENGINE SETTER [address] [place] [address] Global Coordinator Family Medicine 03/09/24 Tara Carballo APRN.ENGINE SETTER [address] [place] [address] Global Coordinator Family Medicine 03/09/24 Bulb Farmworker Relationship Specialty Start Date End Date Handy Henderson DO [address] [place] [address] PCP - General Family Medicine 10/09/20 Rosario Cardenas I, DO [address] [facility] [address] [place] [address] Referring Nephrology 04/15/18 Javier Licona [address] [facility] [address] [place] [phone] Physician Endocrinology 04/15/18 Abad Garrett MD [address] [place], [place] [address] Physician Cardiology 04/15/18 Maya Holguin APRN.ENGINE SETTER [address] [facility] [address] [facility] 03/09/24 Tara Carballo APRN.ENGINE SETTER [address] [facility] [address] [facility] 03/09/24 Bulb Farmworker Relationship Specialty Start Date End Date Handy Henderson DO [address] [facility] [address] PCP - General Family Medicine 10/09/20 Rosario Cardenas I, DO [address], [place] [address] Referring Nephrology 04/15/18 Javier Licona [address] [place] [address] Physician Endocrinology 04/15/18 Abad Garrett MD [address] [place] [address] Physician Cardiology 04/15/18 Maya Holguin APRN.ENGINE SETTER [address] [facility] [place] [address] [facility] 03/09/24 Tara Carballo APRN.ENGINE SETTER [address] [place] [address] Global Coordinator Family Medicine 03/09/24 Team Status: Active Member Role Status Dates Dr. Handy Henderson DO Primary Care Provider Active Team Status: Inactive Member Role Status Dates Dr. Handy Henderson DO Primary Care Provider Active Start: June 03, 2024 End: June 03, 2024 Dr. Handy Henderson DO Referring Provider Active Start: June 03, 2024 End: June 03, 2024 Radha BRONSON, PA Attending Provider Active Start: June 03, 2024 End: June 03, 2024 Team Status: Inactive Member Role Status Dates Dr. Handy Henderson DO Primary Care Provider Active Start: July 07, 2024 End: July 07, 2024 Radha BRONSON PA Attending Provider Active Start: July 07, 2024 End: July 07, 2024 Radha BRONSON PA Referring Provider Active Start: July 07, 2024 End: July 07, 2024 Team Status: Active Member Role Status Dates Dr. Handy Henderson DO Primary Care Provider Active Start: July 07, 2024 Dr. Pavan Shell MD Attending Provider Active S tart: July 07, 2024 Bulb Farmworker Relationship Specialty Start Date End Date Handy Henderson DO [address] [place] [address] PCP - General Family Medicine 10/09/20 Rosario Cardenas I, DO [address] [address] Referring Nephrology 04/15/18 Javier Licona [address] [facility] [address] [place] [address] Physician Endocrinology 04/15/18 Abad Garrett MD [address] [place], [place] [phone] Physician Cardiology 04/15/18 Tara Carballo APRN.ENGINE SETTER [address] [place], [place] [id number] Global Coordinator [facility] 03/09/24 Team Status: Inactive Member Role Status Dates Dr. Handy Henderson DO Primary Care Provider Active Start: August 13, 2024 End: August 13, 2024 Dr. Handy Henderson DO Referring Provider Active Start: August 13, 2024 End: August 13, 2024 Mirna Salgado NP-C Attending Provider Active Start: August 13, 2024 End: August 13, 2024 Bulb Farmworker Relationship Specialty Start Date End Date Handy Henderson DO [address] [facility] [place] [address] PCP - General Family Medicine 10/09/20 Rosario Cardenas I, DO [address] [address] Referring Nephrology 04/15/18 Javier Licona [address] [address] Physician Endocrinology 04/15/18 Abad Garrett MD [address] [place] [address] Physician Cardiology 04/15/18 Tara Carballo APRN.ENGINE SETTER [address] [place], [place] [address] Global Coordinator [facility] 03/09/24 Bulb Farmworker Relationship Specialty Start Date End Date Handy Henderson DO [address] [place], [place] 135[address] PCP - General Family Medicine 10/09/20 Rosario Cardenas I, DO [address], [place] [address] Referring Nephrology 04/15/18 Javier Licona [address] [facility] [address] [place] [phone] Physician Endocrinology 04/15/18 Abad Garrett MD [address] [facility], [place] [id number] Physician Cardiology 04/15/18 Tara Carballo APRN.ENGINE SETTER [address] [facility], [place] [address] Global Coordinator [facility] 03/09/24 Rosi Leger APRN.ENGINE SETTER [address] [place], [place] [id number] [facility] 09/15/24 Bulb Farmworker Relationship Specialty Start Date End Date Handy Henderson DO [address] [place], [place] [id number] PCP - General Family Medicine 10/09/20 Rosario Cardenas I, DO [address], [place] [address] Referring Nephrology 04/15/18 Javier Licona [address] [facility] [address] [place] [phone] Physician Endocrinology 04/15/18 Abad Garrett MD [address] [place] [address] Physician Cardiology 04/15/18 Tara Carballo APRN.ENGINE SETTER [address] [place] [address] Global Coordinator Family Medicine 03/09/24 Rosi Leger APRN.ENGINE SETTER [address] [place], [place] [address] Global Coordinator [facility] 09/15/24 Source Comments (unrecognize d section and content) In the event this informatio n is protected by the Federal Confidentiality of Alcohol and Drug Abuse Patient Records regulations: The Federal rules restrict any use of the information to criminally investigate or prosecute any alcohol or drug abuse patient.[facility] Hospital[facility] the event this information is protected by the Federal Confidentiality of Alcohol and Drug Abuse Patient Records regulations: The Federal rules restrict any use of the information to criminally investigate or prosecute any alcohol or drug abuse patient.[facility] HospitalIn the event this information is protected by the Federal Confidentiality of Alcohol and Drug Abuse Patient Records regulations: The Federal rules restrict any use of the information to criminally investigate or prosecute any alcohol or drug abuse patient.[facility] HospitalIn the event this information is protected by the Federal Confidentiality of Alcohol and Drug Abuse Patient Records regulations: The Federal rules restrict any use of the information to criminally investigate or prosecute any alcohol or drug abuse patient.[facility] HospitalIn the event this information is protected by the Federal Confidentiality of Alcohol and Drug Abuse Patient Records regulations: The Federal rules restrict any use of the information to criminally investigate or prosecute any alcohol or drug abuse patient.[facility] HospitalIn the event this information is protected by the Federal Confidentiality of Alcohol and Drug Abuse Patient Records regulations: The Federal rules restrict any use of the information to criminally investigate or prosecute any alcohol or drug abuse patient.[facility] HospitalIn the event this information is protected by the Federal Confidentiality of Alcohol and Drug Abuse Patient Records regulations: The Federal rules restrict any use of the information to criminally investigate or prosecute any alcohol or drug abuse patient.[facility] HospitalIn the event this information is protected by the Federal Confidentiality of Alcohol and Drug Abuse Patient Records regulations: The Federal rules restrict any use of the information to criminally investigate or prosecute any alcohol or drug abuse patient.[facility] HospitalIn the event this information is protected by the Federal Confidentiality of Alcohol and Drug Abuse Patient Records regulations: The Federal rules restrict any use of the information to criminally investigate or prosecute any alcohol or drug abuse patient.[facility] HospitalIn the event this information is protected by the Federal Confidentiality of Alcohol and Drug Abuse Patient Records regulations: The Federal rules restrict any use of the information to criminally investigate or prosecute any alcohol or drug abuse patient.[facility] HospitalIn the event this information is protected by the Federal Confidentiality of Alcohol and Drug Abuse Patient Records regulations: The Federal rules restrict any use of the information to criminally investigate or prosecute any alcohol or drug abuse patient.[facility] HospitalIn the event this information is protected by the Federal Confidentiality of Alcohol and Drug Abuse Patient Records regulations: The Federal rules restrict any use of the information to criminally investigate or prosecute any alcohol or drug abuse patient.[facility] HospitalIn the event this information is protected by the Federal Confidentiality of Alcohol and Drug Abuse Patient Records regulations: The Federal rules restrict any use of the information to criminally investigate or prosecute any alcohol or drug abuse patient.[facility] HospitalIn the event this information is protected by the Federal Confidentiality of Alcohol and Drug Abuse Patient Records regulations: The Federal rules restrict any use of the information to criminally investigate or prosecute any alcohol or drug abuse patient.[facility] HospitalIn the event this information is protected by the Federal Confidentiality of Alcohol and Drug Abuse Patient Records regulations: The Federal rules restrict any use of the information to criminally investigate or prosecute any alcohol or drug abuse patient.[facility] HospitalIn the event this information is protected by the Federal Confidentiality of Alcohol and Drug Abuse Patient Records regulations: The Federal rules restrict any use of the information to criminally investigate or prosecute any alcohol or drug abuse patient.[facility] HospitalIn the event this information is protected by the Federal Confidentiality of Alcohol and Drug Abuse Patient Records regulations: The Federal rules restrict any use of the information to criminally investigate or prosecute any alcohol or drug abuse patient.[facility] HospitalIn the event this information is protected by the Federal Confidentiality of Alcohol and Drug Abuse Patient Records regulations: The Federal rules restrict any use of the information to criminally investigate or prosecute any alcohol or drug abuse patient.[facility] HospitalIn the event this information is protected by the Federal Confidentiality of Alcohol and Drug Abuse Patient Records regulations: The Federal rules restrict any use of the information to criminally investigate or prosecute any alcohol or drug abuse patient.[facility] HospitalIn the event this information is protected by the Federal Confidentiality of Alcohol and Drug Abuse Patient Records regulations: The Federal rules restrict any use of the information to criminally investigate or prosecute any alcohol or drug abuse patient.[facility] HospitalIn the event this information is protected by the Federal Confidentiality of Alcohol and Drug Abuse Patient Records regulations: The Federal rules restrict any use of the information to criminally investigate or prosecute any alcohol or drug abuse patient.[facility] HospitalIn the event this information is protected by the Federal Confidentiality of Alcohol and Drug Abuse Patient Records regulations: The Federal rules restrict any use of the information to criminally investigate or prosecute any alcohol or drug abuse patient.[facility] HospitalIn the event this information is protected by the Federal Confidentiality of Alcohol and Drug Abuse Patient Records regulations: The Federal rules restrict any use of the information to criminally investigate or prosecute any alcohol or drug abuse patient.[facility] HospitalIn the event this information is protected by the Federal Confidentiality of Alcohol and Drug Abuse Patient Records regulations: The Federal rules restrict any use of the information to criminally investigate or prosecute any alcohol or drug abuse patient.[facility] HospitalIn the event this information is protected by the Federal Confidentiality of Alcohol and Drug Abuse Patient Records regulations: The Federal rules restrict any use of the information to criminally investigate or prosecute any alcohol or drug abuse patient.[facility] HospitalIn the event this information is protected by the Federal Confidentiality of Alcohol and Drug Abuse Patient Records regulations: The Federal rules restrict any use of the information to criminally investigate or prosecute any alcohol or drug abuse patient.[facility] HospitalIn the event this information is protected by the Federal Confidentiality of Alcohol and Drug Abuse Patient Records regulations: The Federal rules restrict any use of the information to criminally investigate or prosecute any alcohol or drug abuse patient.[facility] HospitalIn the event this information is protected by the Federal Confidentiality of Alcohol and Drug Abuse Patient Records regulations: The Federal rules restrict any use of the information to criminally investigate or prosecute any alcohol or drug abuse patient.[facility] HospitalIn the event this information is protected by the Federal Confidentiality of Alcohol and Drug Abuse Patient Records regulations: The Federal rules restrict any use of the information to criminally investigate or prosecute any alcohol or drug abuse patient.[facility] HospitalIn the event this information is protected by the Federal Confidentiality of Alcohol and Drug Abuse Patient Records regulations: The Federal rules restrict any use of the information to criminally investigate or prosecute any alcohol or drug abuse patient.[facility] HospitalIn the event this information is protected by the Federal Confidentiality of Alcohol and Drug Abuse Patient Records regulations: The Federal rules restrict any use of the information to criminally investigate or prosecute any alcohol or drug abuse patient.[facility] HospitalIn the event this information is protected by the Federal Confidentiality of Alcohol and Drug Abuse Patient Records regulations: The Federal rules restrict any use of the information to criminally investigate or prosecute any alcohol or drug abuse patient.[facility] HospitalIn the event this information is protected by the Federal Confidentiality of Alcohol and Drug Abuse Patient Records regulations: The Federal rules restrict any use of the information to criminally investigate or prosecute any alcohol or drug abuse patient.[facility] HospitalIn the event this information is protected by the Federal Confidentiality of Alcohol and Drug Abuse Patient Records regulations: The Federal rules restrict any use of the information to criminally investigate or prosecute any alcohol or drug abuse patient.[facility] HospitalIn the event this information is protected by the Federal Confidentiality of Alcohol and Drug Abuse Patient Records regulations: The Federal rules restrict any use of the information to criminally investigate or prosecute any alcohol or drug abuse patient.[facility] HospitalIn the event this information is protected by the Federal Confidentiality of Alcohol and Drug Abuse Patient Records regulations: The Federal rules restrict any use of the information to criminally investigate or prosecute any alcohol or drug abuse patient.[facility] HospitalIn the event this information is protected by the Federal Confidentiality of Alcohol and Drug Abuse Patient Records regulations: The Federal rules restrict any use of the information to criminally investigate or prosecute any alcohol or drug abuse patient.[facility] HospitalIn the event this information is protected by the Federal Confidentiality of Alcohol and Drug Abuse Patient Records regulations: The Federal rules restrict any use of the information to criminally investigate or prosecute any alcohol or drug abuse patient.[facility] HospitalIn the event this information is protected by the Federal Confidentiality of Alcohol and Drug Abuse Patient Records regulations: The Federal rules restrict any use of the information to criminally investigate or prosecute any alcohol or drug abuse patient.[facility] HospitalIn the event this information is protected by the Federal Confidentiality of Alcohol and Drug Abuse Patient Records regulations: The Federal rules restrict any use of the information to criminally investigate or prosecute any alcohol or drug abuse patient.[facility] HospitalIn the event this information is protected by the Federal Confidentiality of Alcohol and Drug Abuse Patient Records regulations: The Federal rules restrict any use of the information to criminally investigate or prosecute any alcohol or drug abuse patient.[facility] HospitalIn the event this information is protected by the Federal Confidentiality of Alcohol and Drug Abuse Patient Records regulations: The Federal rules restrict any use of the information to criminally investigate or prosecute any alcohol or drug abuse patient.[facility] HospitalIn the event this information is protected by the Federal Confidentiality of Alcohol and Drug Abuse Patient Records regulations: The Federal rules restrict any use of the information to criminally investigate or prosecute any alcohol or drug abuse patient.[facility] HospitalIn the event this information is protected by the Federal Confidentiality of Alcohol and Drug Abuse Patient Records regulations: The Federal rules restrict any use of the information to criminally investigate or prosecute any alcohol or drug abuse patient.[facility] HospitalIn the event this information is protected by the Federal Confidentiality of Alcohol and Drug Abuse Patient Records regulations: The Federal rules restrict any use of the information to criminally investigate or prosecute any alcohol or drug abuse patient.[facility] HospitalIn the event this information is protected by the Federal Confidentiality of Alcohol and Drug Abuse Patient Records regulations: The Federal rules restrict any use of the information to criminally investigate or prosecute any alcohol or drug abuse patient.[facility] HospitalIn the event this information is protected by the Federal Confidentiality of Alcohol and Drug Abuse Patient Records regulations: The Federal rules restrict any use of the information to criminally investigate or prosecute any alcohol or drug abuse patient.[facility] HospitalIn the event this information is protected by the Federal Confidentiality of Alcohol and Drug Abuse Patient Records regulations: The Federal rules restrict any use of the information to criminally investigate or prosecute any alcohol or drug abuse patient.[facility] HospitalIn the event this information is protected by the Federal Confidentiality of Alcohol and Drug Abuse Patient Records regulations: The Federal rules restrict any use of the information to criminally investigate or prosecute any alcohol or drug abuse patient.[facility] HospitalIn the event this information is protected by the Federal Confidentiality of Alcohol and Drug Abuse Patient Records regulations: The Federal rules restrict any use of the information to criminally investigate or prosecute any alcohol or drug abuse patient.[facility] HospitalIn the event this information is protected by the Federal Confidentiality of Alcohol and Drug Abuse Patient Records regulations: The Federal rules restrict any use of the information to criminally investigate or prosecute any alcohol or drug abuse patient.[facility] HospitalIn the event this information is protected by the Federal Confidentiality of Alcohol and Drug Abuse Patient Records regulations: The Federal rules restrict any use of the information to criminally investigate or prosecute any alcohol or drug abuse patient.[facility] HospitalIn the event this information is protected by the Federal Confidentiality of Alcohol and Drug Abuse Patient Records regulations: The Federal rules restrict any use of the information to criminally investigate or prosecute any alcohol or drug abuse patient.[facility] HospitalIn the event this information is protected by the Federal Confidentiality of Alcohol and Drug Abuse Patient Records regulations: The Federal rules restrict any use of the information to criminally investigate or prosecute any alcohol or drug abuse patient.[facility] HospitalIn the event this information is protected by the Federal Confidentiality of Alcohol and Drug Abuse Patient Records regulations: The Federal rules restrict any use of the information to criminally investigate or prosecute any alcohol or drug abuse patient.[facility] HospitalIn the event this information is protected by the Federal Confidentiality of Alcohol and Drug Abuse Patient Records regulations: The Federal rules restrict any use of the information to criminally investigate or prosecute any alcohol or drug abuse patient.[facility] HospitalIn the event this information is protected by the Federal Confidentiality of Alcohol and Drug Abuse Patient Records regulations: The Federal rules restrict any use of the information to criminally investigate or prosecute any alcohol or drug abuse patient.[facility] HospitalIn the event this information is protected by the Federal Confidentiality of Alcohol and Drug Abuse Patient Records regulations: The Federal rules restrict any use of the information to criminally investigate or prosecute any alcohol or drug abuse patient.[facility] HospitalIn the event this information is protected by the Federal Confidentiality of Alcohol and Drug Abuse Patient Records regulations: The Federal rules restrict any use of the information to criminally investigate or prosecute any alcohol or drug abuse patient.[facility] HospitalIn the event this information is protected by the Federal Confidentiality of Alcohol and Drug Abuse Patient Records regulations: The Federal rules restrict any use of the information to criminally investigate or prosecute any alcohol or drug abuse patient.[facility] HospitalIn the event this information is protected by the Federal Confidentiality of Alcohol and Drug Abuse Patient Records regulations: The Federal rules restrict any use of the information to criminally investigate or prosecute any alcohol or drug abuse patient.[facility] HospitalIn the event this information is protected by the Federal Confidentiality of Alcohol and Drug Abuse Patient Records regulations: The Federal rules restrict any use of the information to criminally investigate or prosecute any alcohol or drug abuse patient.[facility] HospitalIn the event this information is protected by the Federal Confidentiality of Alcohol and Drug Abuse Patient Records regulations: The Federal rules restrict any use of the information to criminally investigate or prosecute any alcohol or drug abuse patient.[facility] HospitalIn the event this information is protected by the Federal Confidentiality of Alcohol and Drug Abuse Patient Records regulations: The Federal rules restrict any use of the information to criminally investigate or prosecute any alcohol or drug abuse patient.[facility] HospitalIn the event this information is protected by the Federal Confidentiality of Alcohol and Drug Abuse Patient Records regulations: The Federal rules restrict any use of the information to criminally investigate or prosecute any alcohol or drug abuse patient.[facility] HospitalIn the event this information is protected by the Federal Confidentiality of Alcohol and Drug Abuse Patient Records regulations: The Federal rules restrict any use of the information to criminally investigate or prosecute any alcohol or drug abuse patient.[facility] HospitalIn the event this information is protected by the Federal Confidentiality of Alcohol and Drug Abuse Patient Records regulations: The Federal rules restrict any use of the information to criminally investigate or prosecute any alcohol or drug abuse patient.[facility] HospitalIn the event this information is protected by the Federal Confidentiality of Alcohol and Drug Abuse Patient Records regulations: The Federal rules restrict any use of the information to criminally investigate or prosecute any alcohol or drug abuse patient.[facility] HospitalIn the event this information is protected by the Federal Confidentiality of Alcohol and Drug Abuse Patient Records regulations: The Federal rules restrict any use of the information to criminally investigate or prosecute any alcohol or drug abuse patient.[facility] HospitalIn the event this information is protected by the Federal Confidentiality of Alcohol and Drug Abuse Patient Records regulations: The Federal rules restrict any use of the information to criminally investigate or prosecute any alcohol or drug abuse patient.[facility] HospitalIn the event this information is protected by the Federal Confidentiality of Alcohol and Drug Abuse Patient Records regulations: The Federal rules restrict any use of the information to criminally investigate or prosecute any alcohol or drug abuse patient.[facility] HospitalIn the event this information is protected by the Federal Confidentiality of Alcohol and Drug Abuse Patient Records regulations: The Federal rules restrict any use of the information to criminally investigate or prosecute any alcohol or drug abuse patient.[facility] HospitalIn the event this information is protected by the Federal Confidentiality of Alcohol and Drug Abuse Patient Records regulations: The Federal rules restrict any use of the information to criminally investigate or prosecute any alcohol or drug abuse patient.[facility] HospitalIn the event this information is protected by the Federal Confidentiality of Alcohol and Drug Abuse Patient Records regulations: The Federal rules restrict any use of the information to criminally investigate or prosecute any alcohol or drug abuse patient.[facility] HospitalIn the event this information is protected by the Federal Confidentiality of Alcohol and Drug Abuse Patient Records regulations: The Federal rules restrict any use of the information to criminally investigate or prosecute any alcohol or drug abuse patient.[facility] HospitalIn the event this information is protected by the Federal Confidentiality of Alcohol and Drug Abuse Patient Records regulations: The Federal rules restrict any use of the information to criminally investigate or prosecute any alcohol or drug abuse patient.[facility] HospitalIn the event this information is protected by the Federal Confidentiality of Alcohol and Drug Abuse Patient Records regulations: The Federal rules restrict any use of the information to criminally investigate or prosecute any alcohol or drug abuse patient.[facility] HospitalIn the event this information is protected by the Federal Confidentiality of Alcohol and Drug Abuse Patient Records regulations: The Federal rules restrict any use of the information to criminally investigate or prosecute any alcohol or drug abuse patient.[facility] HospitalIn the event this information is protected by the Federal Confidentiality of Alcohol and Drug Abuse Patient Records regulations: The Federal rules restrict any use of the information to criminally investigate or prosecute any alcohol or drug abuse patient.[facility] HospitalIn the event this information is protected by the Federal Confidentiality of Alcohol and Drug Abuse Patient Records regulations: The Federal rules restrict any use of the information to criminally investigate or prosecute any alcohol or drug abuse patient.[facility] HospitalIn the event this information is protected by the Federal Confidentiality of Alcohol and Drug Abuse Patient Records regulations: The Federal rules restrict any use of the information to criminally investigate or prosecute any alcohol or drug abuse patient.[facility] HospitalIn the event this information is protected by the Federal Confidentiality of Alcohol and Drug Abuse Patient Records regulations: The Federal rules restrict any use of the information to criminally investigate or prosecute any alcohol or drug abuse patient.[facility] Reason for Visit (unrecogniz ed section and content) Reason Comments Physical Therapy Specialty Diagnoses / Procedures Referred By Jonathan t Referred To Contact Physical Therapy / PHYSICAL THERAPY Diagnoses Low Back Pain, core stregthening Procedures NEW RS PT SPINE Handy Henderson L, DO [address] [place] [address] Reyes Perea, PT [address] [place] [address] Referral ID Status Reason Start Date Expiration Date V isits Requested Visits Authorized [id number] Authorized 07/02/2023 04/01/2024 30 30 Reason Comments PT Eval Reason Comments PT Discharge Specialty Diagnoses / Procedures Referred By Jonathan shoemaker Referred To Contact [facility] Diagnoses Status post kidney transplant Hip pain Chronic pain of both knees Balance disorder Procedures CONSULT TO PHYSICAL THERAPY PHYSICAL THERAPY EVALUATION HIGH COMPLEX 45 MINS Handy Henderson, DO [address] [place] [address] [facility] [place] [address] [place] [address] Referral ID Status Reason Start Date Expiration Date Visits Requested Visits Authorized [id number] Authorized Auto-Generat ed Referral 08/17/2021 04/01/2022 30 30 Reason Comments PT Progress Note Reason Comments Home Health Orders Reason Comments Kidney Recipient Follow-up Reason Comments Hospital F/U was [facility] , then [facility] to [facility] , then reaction from antirejection medication another trip to stay [facility] meds switched around then to [place] Reason Comments Home Health Update Reason Comments Diarrhea x 1 week Reason Comments Follow Up Reason Comments Results Reason Comments Referred by Maya Salas New Specialty Diagnoses / Procedures Referred By Jonathan shoemaker Referred To Contact Orthopedics Diagnoses Right hip pain Procedures CONSULT TO ORTHOPAEDICS OFFICE/OUTPATIENT NEW HIGH MDM 60-74 MINUTES Maya Salas, NORAH.ENGINE SETTER [address] [place] [address] Referral ID Status Reason Start Date Expiration Date Visits Requested Visits Authorized [id number] Pending Review PCP Requested Referral 07/11/2021 07/11/2022 1 1 Reason Comments Home Health [facility] Reason Comments Established Patient Diabetic Foot Exam Reason Comments Primary Open Angle Glaucoma Follow Up Reason Comments HH certification and POC Reason Comments Glaucoma Follow Up Both eyes- mild stag e Mild Nonproliferative Diabetic Retinopat hy Blood sugar 111 Reason Comments Results Reason Comments Yearly Exam Reason Comments S/P Eye Surgery Status Post Canalopl asty 360 degrees / Trabeculotomy 180 degrees - Right eye (01/12/2022) Reason Onset Date Comments Refill Request 01/26/2022 Reason Comments Follow Up For Surgery Of Eye - Status Po st Canaloplasty / Trabeculotomy - Right eye (01/12/2022) Reason Comments ER F/U Reason Comments Diabetic Foot Care Established Patient Follow Up Reason Comments F/U 3 Month Reason Comments Results Orders Reason Onset Date Comments Refill Request 06/09/2022 NEEDS TODAY Reason Comments Established Patient Follow Up Diabetic Foot Care Reason Comments Insulin Dependent Diabetes Mellitus Lila ent states blood sugar was 158 this morning. HbA1c: 5.4 Reason Comments Refill Request Reason Comments Med Change Request Reason Onset Date Comments Refill Request 07/10/2022 Reason Comments Follow Up Fell on 07/19- was to ld by bryan that he has broken bones in left hand Reason Comments Insulin Dependent Diabetes Mellitus Bloo d sugar 116 Glaucoma Follow Up Status Post Canalopl asty with the [employer] surgical system Right Eye (01/12/2022)Status Post Canaloplasty with the [employer] surgical system Left Eye (02/18/2021) Reason Onset Date Comments Refill Request 10/12/2022 Reason Comments Established Patient Follow Up Fracture Specialty Diagnoses / Procedures Referred By Jonathan shoemaker Referred To Contact Orthopedics Diagnoses Left hand pain Procedures CONSULT TO ORTHOPAEDICS OFFICE/OUTPATIENT [facility] MDM 60-74 MINUTES Tara Carballo APRN.ENGINE SETTER [address] [place] [address] Referral ID Status Reason Start Date Expiration Date Visits Requested Visits Authorized [id number] Pending Review PCP Requested Referral 07/24/2022 07/24/2023 1 1 Reason Comments Follow Up 5 months Reason Comments Toe Pain (Toe) R foot fifth toe harlan n, possible infection x3 days Reason Comments f/up on rt foot pinky toe Developed a bl ister and infection Reason Comments Established Patient Ulcer Reason Comments Established Patient Follow Up Ulcer Reason Comments Orders Reason Comments Established Patient 3 week follow up on the right foot (ulcer on pinkie toe) Established Patient Diabetic Reason Comments Need more information for diabetic shoes Reason Comments Established Patient Follow Up Ulcer Reason Comments Follow Up Ulcer Reason Onset Date Comments Refill Request 05/29/2023 Reason Comments Office Note Needing signed Reason Comments Established Patient Follow Up Reason Comments Nasal Congestion drainage, swollen gl ands x 2 weeks Reason Comments Medication Problem Reason Comments c-pap supplies/form/DASCO Reason Comments Cough Chest congestion, sw ollen glands, coughing up lots of mucus Reason Comments Swelling Established Patient Follow Up Reason Comments Orders Wound Care referral Reason Comments Glaucoma Follow Up Both eyes - mild sta ge Proliferative Diabetic Retinopathy Follo w Up HgA1c 5.1 Blurred Vision Left Eye Reason Comments Sinus Problem Congestion, NAJERA x 2 w eeks Reason Comments Mild Nonproliferative Diabetic Retinopat hy Insulin pump 132A1c 5.8 Reason Onset Date Comments F/U 3 Month Immunizations 12/11/2023 Flu vaccination Reason Comments Results Reason Comments Nausea Diarrhea x 1 days Reason Comments Primary Open Angle Glaucoma Follow Up Diabetes Reason Comments F/U 3 Month Goals (unrecognized section and content) Goals may be documented in a n alternate sectionGoals may be documented in an alternate sectionGoals may be documented in an alternate sectionGoals may be documented in an alternate sectionGoals may be documented in an alternate sectionGoals may be documented in an alternate sectionGoals may be documented in an alternate sectionGoals may be documented in an alternate section FOR RECORDS PERTAINING TO PATIENTS WHO ARE OR HAVE BEEN ENROLLED IN A CHEMICAL DEPENDENCY/SUBSTANCEABUSE PROGRAM, SOME INFORMATION MAY BE OMITTED. This clinical summary was aggregated from multiple sources. Caution should be exercised in using it in the provision of clinical care. This summary normalizes information from multiple sources, and as a consequence, information in this document may materially change the coding, format and clinical context of patient data. In addition, data may be omitted in some cases. CLINICAL DECISIONS SHOULD BE BASED ON THE PRIMARY CLINICAL RECORDS. [facility] [employer] [facility]. provides no warranty or guarantee of the accuracy or completeness of information in this document.
[2024-10-12 03:32] LABS: BETA-HYDROXYBUTYRATE 0.4 mmol/L (0.0-0.3)
--- NOTE | 2024-10-12 03:58 | PCM.HP.STD ---
HPI - General General Date of Admission: 10/12/24 Date of Service: 10/12/24 Chief Complaint: Nausea/vomiting with dizziness and URI symptoms HPI Narrative АНДРЕЙ BEAVER, is a 64 M who presented to [facility] ED on 10/12/2024 with nausea/vomiting with dizziness and URI symptoms. Medical history significant for type 1 diabetes mellitus on insulin pump, renal transplant in 2021 on mycophenolate and sirolimus now with CKD stage IIIb, CAD with stenting in 2011, hypertension, hyperlipidemia, class II obesity and BPH with obstructive symptoms. Lives at home with his and typically has good functional status at baseline. Symptoms began midday on 10/11. He was able to take his morning medications but not to see medications due to nausea with vomiting. He does report some dizziness and unsteadiness on his feet since yesterday evening. Also reports URI symptoms. In the ED patient was hypertensive to the 180s systolic but otherwise in normal sinus rhythm and stable on room air. CBC was benign. BMP with creatinine 2.35 (at baseline), BUN 18, glucose 159, bicarb 18, no anion gap noted. Beta-hydroxybutyrate normal. VBG did show mild acidosis with pH 7.29. Chest x-ray showed mild findings of edema versus pneumonia. COVID/flu/RSV negative. Given his intractable nausea with vomiting and dizziness/unsteadiness on his feet along with URI symptoms and concern for pneumonia, hospitalist was contacted for admission. I saw the patient at bedside in the ED, was present. Patient was sitting up in bed and mildly uncomfortable appearing due to ongoing nausea. He did have a vomitus bag in his hand. Stated that the Zofran given to him earlier was moderately helpful for his nausea. Nursing did attempt to get him up to the bedside to pee but he was unsteady on his feet so he was straight cathed for a urine sample. He reports mild URI symptoms over the past few days. Denies any fevers or chills. No other acute concerns currently. Will be admitted for further management. [facility] Medical History Diabetes mellitus type 1 TIA (transient ischemic attack) Toxic metabolic encephalopathy COVID-19 virus infection (06/10/21) Encephalopathy acute Hepatitis C test positive CPAP (continuous positive airway pressure) dependence Sleep apnea Wears dentures Wears glasses Insulin dependent diabetes mellitus Walker as ambulation aid Arthritis Prostate disease History of renal disease High cholesterol Former smoker Malfunction of arteriovenous dialysis fistula Abdominal pain Incomplete right bundle branch block Uncontrolled type 1 diabetes mellitus with ESRD (end-stage renal disease) NORBERTO (obstructive sleep apnea) Atherosclerosis of [place] coronary artery of [place] heart without angina pectoris Essential hypertension Diabetic polyneuropathy associated with type 1 diabetes mellitus CKD (chronic kidney disease) stage 4, GFR 15-29 ml/min Diabetes type 1, uncontrolled Stroke Pancreatitis Kidney disease Type 1 diabetes Cataracts, bilateral DM2 (diabetes mellitus, type 2) Tobacco abuse Hyperlipidemia Home Medications ?Medication ?Instructions ?Recorded ?Last Taken ?Type albuterol sulfate 90 mcg/actuation 1 - 2 puff inhalation Q6H PRN PRN 07/24/19 10/27/19 History aerosol inhaler Wheezing BP cuff #1 ea 11/27/19 Unknown Rx pen needle, diabetic 32 gauge x #400 ea 02/12/20 Unknown Rx (BD Ultra-Fine Cici Pen Needle) tamsulosin 0.4 mg capsule 0.4 mg PO QHS 04/22/20 Unknown History propylene glycol 0.6 % eye drops 1 drp ophthalmic (eye) DAILY PRN 07/28/21 Unknown History (Systane Balance) lubricant mycophenolate mofetil 250 mg 500 mg PO BID 09/19/21 Unknown History capsule sulfamethoxazole 800 1 tab PO .QOD 09/19/21 Unknown History mg-trimethoprim 160 mg tablet blood-glucose sensor (Dexcom G6 #9 ea 09/22/21 Unknown Rx Sensor device) blood-glucose transmitter (Dexcom #1 ea 09/22/21 Unknown Rx G6 Transmitter device) sirolimus 0.5 mg tablet 0.5 mg PO DAILY 01/30/22 Unknown History atorvastatin 40 mg tablet 40 mg PO QHS #90 tabs 06/09/22 Unknown Rx blood sugar diagnostic (Blood #100 ea 10/13/22 Unknown Rx Glucose Test strips) blood-glucose meter #1 ea 10/23/22 Unknown Rx timolol 0.5 % eye drops 1 drp ophthalmic (eye) DAILY 05/07/23 Unknown History blood-glucose meter (Accu-Chek #1 ea 06/04/23 Unknown Rx Guide Glucose Meter) lancing device with lancets kit #1 ea 06/04/23 Unknown Rx (Accu-Chek Softclix Lancing Device+Lancets kit) famotidine 20 mg tablet (Pepcid) 20 mg PO DAILY 12/04/23 Unknown History Novolog U-100 Insulin aspart 100 120 unit (1.2 mL) continuous 02/14/24 Unknown Rx unit/mL subcutaneous solution subcutaneous infusion .continuous (insulin aspart U-100) #108 mL blood sugar diagnostic (Accu-Chek #100 ea 02/14/24 Unknown Rx Guide test strips) amlodipine 2.5 mg tablet 2.5 mg PO DAILY #30 tabs 04/09/24 Unknown Rx aspirin 325 mg tablet 325 mg PO DAILY 06/03/24 Unknown History carvedilol 12.5 mg tablet 12.5 mg PO BID #180 tabs 06/03/24 Unknown Rx clopidogrel 75 mg tablet 75 mg PO DAILY #90 tabs 06/03/24 Unknown Rx Allergy/AdvReac Type Severity Reaction Status Date / Time No Known Allergies Allergy Verified 10/12/24 00:28 Family History Mother Diabetes Thyroid disorder Hypertension Hyperlipidemia Surgical History Status post glaucoma surgery Kidney transplant recipient Kidney transplant recipient History of kidney transplant (03/27/21) history of peritoneal catheter insertion (~03/2020) Problem with dialysis access (04/05/20) History of coronary artery stent placement (04/21/11) Arteriovenous fistula for hemodialysis in place, primary History of bilateral cataract extraction H/O cardiac catheterization Social History household members: spouse Smoking Status: Current every day smoker tobacco type: cigarettes how long ago did patient quit smokin months alcohol intake: current alcohol intake frequency: holidays/special occasions only substance use type: does not use caffeine: Yes Type: coffee Number of servings: 2 ROS Constitutional Constitutional: Reports fatigue; Denies chills, fever(s) or weakness Eyes Eyes: Denies change in vision Cardiovascular Cardiovascular: Reports lightheadedness; Denies chest pain, dyspnea on exertion, edema or palpitations Respiratory/Chest Respiratory/Chest: Denies shortness of breath at rest Gastrointestinal Gastrointestinal: Reports nausea and vomiting; Denies abdominal pain, constipation or diarrhea Genitourinary Genitourinary: Denies dysuria Musculoskeletal Musculoskeletal: Denies arthralgias or myalgias Neurologic Neurologic: Reports disequilibrium and dizziness; Denies focal weakness, headache(s), numbness or tingling Vital Signs Vital Signs Vital Signs: 10/12/24 00:27 10/12/24 01:38 10/12/24 02:10 Temperature 97.9 F Temperature Source Oral Pulse Rate 64 59 L Respiratory Rate 27 H 16 Blood Pressure 169/68 H 194/66 H 188/73 H Blood Pressure Mean 101 108 105 Pulse Ox 99 98 Oxygen Delivery Method Room Air 10/12/24 02:15 10/12/24 02:20 10/12/24 02:37 Temperature Temperature Source Pulse Rate 59 L 59 L Respiratory Rate 18 18 38 H Blood Pressure 188/73 H Blood Pressure Mean 111 Pulse Ox 99 98 99 Oxygen Delivery Method Room Air 10/12/24 02:45 10/12/24 03:00 Temperature Temperature Source Pulse Rate Respiratory Rate 29 H 26 H Blood Pressure 168/73 H Blood Pressure Mean 101 Pulse Ox 99 97 Oxygen Delivery Method Weight Weight: 115.3 kg Body Mass Index (BMI) 36.4 Physical Exam Const alert, oriented x3 and no apparent distress Constitutional Narrative: Middle-age male, class II obesity, mildly fatigued and mildly uncomfortable appearing due to ongoing nausea, otherwise sitting up in bed and conversing normally. General Appearance: cooperative and comfortable HEENT normocephalic, head/scalp atraumatic, hearing grossly normal bilaterally, nasal mucous membranes and turbinates normal and moist oral mucous membranes Eyes PERRL, EOMs intact bilaterally and conjunctivae normal Neck full ROM Chest inspection of chest normal Resp normal respiratory effort, normal air movement, no use of accessory muscles and clear to auscultation bilaterally Cardio regular rate, regular rhythm, no murmurs and peripheral pulses 2+ throughout GI normal to inspection, nondistended, normoactive bowel sounds, soft to palpation, non-tender and non-distended Back/Spine normal ROM Extremity normal to inspection, full ROM and no pedal edema Skin no rashes or lesions noted Neuro oriented x3, moves all extremities and no focal motor deficits Speech: speech normal Motor Exam: strength 5/5 throughout Psych mental status grossly normal Results Lab / Micro Data 10/12/24 01:10 10/12/24 01:10 Labs: Laboratory Results - last 24 hr 10/12/24 01:10: WBC 4.5, RBC 4.76, Hgb 12.8 L, Hct 42.1, MCV 88.4, MCH 26.9 L, MCHC 30.4 L, RDW Std Deviation 45.1 H, RDW Coeff of Kindra 14.0, Plt Count 202, MPV 9.5, Immature Gran % (Auto) 0.900, Neut % (Auto) 74.9 H, Lymph % (Auto) 16.0 L, [place] % (Auto) 7.3, Eos % (Auto) 0.2, Baso % (Auto) 0.7, Absolute Neuts (auto) 3.4, Absolute Lymphs (auto) 0.72 L, Nucleated RBC % 0, Sodium 137, Potassium 4.5, Chloride 106, Carbon Dioxide 19.7 L, Anion Gap 11, BUN 18, Creatinine 2.35 H, Estim Creat Clear Calc 41.45 L, Est GFR (MDRD) Non-Af 31 L, BUN/Creatinine Ratio 7.6 L, Glucose 159 H, Lactic Acid < 1.0, Calcium 9.3, Total Bilirubin 0.57, AST 23, ALT 28, Alkaline Phosphatase 240 H, Total Protein 6.6, Albumin 4.2, Globulin 2.4, Albumin/Globulin Ratio 1.7, Lipase 9 L, b-Hydroxybutyric mmol/L 0.4 H Micro: Microbiology 10/12/24 01:55 Mucosa - Nose SARS-CoV-2, Influenza & RSV (PCR) - Final ABG Data ABG results: ABG 10/12/24 02:18 Specimen Type ZEE Sample Site Not entered VBG pH 7.29 L VBG pO2 35 VBG HCO3 21 L VBG Total CO2 23 VBG O2 Sat (Calc) 60 VBG Base Excess -6 L POC Mix VBG pCO2 Pt Tmp 44.4 O2 Delivery Device Room Air Imaging Radiology Impression Chest X-Ray 10/12/24 02:30 IMPRESSION: Mild findings of edema. Infection is possible. Reading Location: [place] [id number] Assessment & Plan Assessment/Plan (1) Nausea & vomiting: PLAN: Plan Patient is a 64-year-old male who presented [facility] ED on 10/12/2024 with nausea/vomiting with dizziness and URI symptoms. 1. Intractable nausea/vomiting with dizziness ? Admit under observation status to PCU. Unclear etiology at this time. Symptoms seem most consistent with vertigo, though patient has no prior history of vertigo. Patient is on aspirin, Plavix and high intensity statin so lower concern for CVA. However, will obtain CT head without contrast to rule out signs of overt stroke or intracranial bleed. Cannot give IV contrast due to chronic kidney disease as below so we will hold on CTA head/neck. Could be related to possible pneumonia as below as well. Given 1 L of IV fluids in the ED and will give another liter of fluids over several hours. Treat symptomatically with IV Zofran as needed and meclizine as needed. Okay for diabetic diet. 2. Concern for community-acquired pneumonia ? Reported URI symptoms for few days prior to admission. COVID/flu/RSV negative. Chest x-ray with edema versus pneumonia noted. Will treat empirically for community-acquired pneumonia with IV ceftriaxone and azithromycin. Breathing treatments as needed ordered. Sputum culture and full respiratory PCR panel ordered. 3. History of renal transplant on immunosuppression now with CKD stage IIIb ? History of renal transplant in 2021. On mycophenolate and sirolimus for immunosuppression. Creatinine 2.35 on admit, stable at baseline. Continue home medications for immunosuppression. 4. Type 1 diabetes mellitus ? Follows with endocrinology. Is on insulin pump at home. Most recent A1c 6.1% on 08/14. Blood glucose 150 in the ED, no anion gap and beta-hydroxybutyrate negative so no concern for DKA. Okay to continue insulin pump while inpatient. 5. History of CAD with stenting, hypertension, hyperlipidemia ? Follows with [facility]. Had multiple stents placed between [id number], no stents placed since then. Continue home aspirin, Plavix, statin, amlodipine, and Coreg. 6. Class II obesity ? BMI 36 on admit. Complicates hospital course, care and prognosis. 7. BPH with obstructive symptoms ? Continue on Flomax. 8. GERD ? Continue home Pepcid. DVT prophylaxis: Heparin subcu CODE STATUS: Full code, verified Expected disposition: Home, TBD Total clinical time spent by myself addressing the patient's medical issues, reviewing all the data, and collaborating with patient's care team: 75 minutes. Charges/Coding Visit Charges Inpatient E&M: 29023 Init Hosp L3
--- NOTE | 2024-10-12 04:25 | CT_ITS ---
PROCEDURE: BRAIN/HEAD WITHOUT CONTRAST 10/12/2024 REASON FOR EXAM: DIZZINESS/UNSTEADINESS ON FEET, EVAL FOR CVA TECHNIQUE: BRAIN/HEAD WITHOUT CONTRAST Coronal and Sagittal reconstruction series were provided. One or more dose reduction techniques were used (e.g., Automated exposure control, adjustment of the mA and/or kV according to patient size, use of iterative reconstruction technique. RADIATION DOSE SUMMARY: CTDlvol: 44 mGy DLP: 863 mGycm COMPARISON: None. FINDINGS: Moderate global parenchymal atrophy. Chronic microvascular ischemia. No evidence of hemorrhage or infarction. No extra-axial blood or fluid collections. The calvarial vault and skull base are intact. The paranasal sinuses and mastoid air cells are clear. CT/Brain/Head without Contrast IMPRESSION: NO ACUTE FINDINGS Reading Location: [place] [id number]
[2024-10-12 04:28] LABS: Mucous, Urine 0 SEEN /hpf (<or=2+); Red Blood Cells-Urine 0 SEEN /hpf (0-5)
--- OUTSIDE RECORDS SUMMARY | 2024-10-12 04:36 | XMS RPT_ITS | CCD ---
Author Organization [facility] [place] [facility] Care Team Providers Care Skin Lap Bonder Name Role Phone Handy Henderson Unavailable Abraham Hammond Unavailable Unavailable Michael ZUÑIGA, Diego Rosairo Unavailable [phone] Carolyn ZUÑIGA, Peter Huerta Unavailable Handy Henderson DO Primary Care Provider NELA MCNEIL Attending Unavailable TARUN NELA Referring Unavailable PHYSICIAN PHYSICIAN, PCP PCP [phone] Primary Care Unavailable Ronald Rees DO, Christine Unavailable Javier Licona Unavailable Abad Garrett (Hist) Unavailable Handy Henderson DO Primary Care Provider Dr. Handy Henderson Primary Care Provider Dr. Handy Henderson Referring Provider Dr. Shamir sTai Attending Provider Dr. Cesar Reyna Emergency Provider Dr. Missy Ulloa Attending [...] Handy Henderson DO Primary Care Provider Ronald NegritaDO, Rosario Unavailable Abad Garrett Unavailable Dr. Handy Henderson Primary Care Provider Dr. Handy Henderson Referring Provider ANJUM Salgado Attending Provider ANJUM Lieberman NP Attending Provider Dr. George Pacheco Admitting Arik Pacheco, Dr. Geroge Zayas Attending Arik Pacheco, Dr. George Zayas Referring Dr. Handy Pike Primary Care Maryva bernarda Rodriguez MD, Diego Rosario Unavailable Carolyn ZUÑIGA, Peter Huerta Unavailable Handy Henderson DO Primary Care Provider Javier Licona Unavailable Dr. Handy Henderson Primary Care Provider Dr. Handy Henderson Referring Provider ANJUM Salgado Attending Provider Dr. Shamir Tsai Attending Provider Sam CAREER TRANSITION SPECIALIST, CAREER TRANSITION SPECIALIST-C Erica Referring Provider Esteban CAREER TRANSITION SPECIALIST, CAREER TRANSITION SPECIALIST-C Erica Referring Provider Dr. Nicolas Lawrence Attending Provider Mio CAREER TRANSITION SPECIALIST, CAREER TRANSITION SPECIALIST-C Gabi Attending Provider Dr. Handy Henderson Primary Care Provider Dr. Shamir Tsai Attending Provider Esteban CAREER TRANSITION SPECIALIST, CAREER TRANSITION SPECIALIST-C Erica Referring Provider Dr. Handy Henderson Referring Provider Dr. Nicolas Lawrence Attending Provider [phone] Mio CAREER TRANSITION SPECIALIST, CAREER TRANSITION SPECIALIST-C Gabi Attending Provider Dr. Nicolas Lawrence Referring Provider [phone] Nicolas Lawrence Other Provider Handy Henderson DO Primary Care Provider Peter Leon MD Unavailable Unavailable Handy Henderson DO Primary Care Provider HANDY HENDERSON Primary Care Unavailable MIRNA STUART Attending Unavailable SELF, SELF Referring Unavailable Holguin BRUSHER MACHINE.MENDING CARRIER, Maya Usha Unavailable Jimmy BRUSHER MACHINE.MENDING CARRIER, Tara Unavailable Abad Garrett MD Unavailable Dr. Handy Henderson DO Primary Care Provider Dr. Handy Henderson DO Referring Provider Radha [...] Attending Unavailable Rousseau, Abbey Referring Unavailable Africa ALMAZAN.MENDING CARRIERRosi Unavailable HENDERSON, HANDY L Primary Care Unavailable HENDERSON, HANDY L Attending Unavailable SELF Referring Unavailable ANDERS GÓMEZO Referring Unavailable HENDERSON, HANDY L Primary Care Unavailable TRINY PALMER Attending Unavailable TRINY PALMER Referring Unavailable HENDERSNO, HANDY L Primary Care Unavailable HENDERSON, HANDY L Attending Unavailable HENDERSON, HANDY L Primary Care Unavailable HENDERSON, HANDY L Primary Care Unavailable HENEDRSON, HANDY L Referring Unavailable HENDERSON, HANDY L Primary Care Unavailable SHERWIN, MIGEL Referring Unavailable HENDERSON, HANDY L Primary Care Unavailable HENDERSON, HANDY L Primary Care Unavailable HENDERSON, HANDY L Referring Unavailable REYES PEREA Attending Unavailable HENDERSON, HANDY L Primary Care Unavailable HENDERSON, HANDY L Referring Unavailable REYES PEREA Attending Unavailable HENDERSON, HANDY L Primary Care Unavailable JUNIOR, GEORGE Leger Referring Unavailable PACHECOGEORGE K Attending Unavailable PACHECO, GEORGE K Referring Unavailable PACHECO, GEORGE K Attending Unavailable HANDY HENDERSON L Primary Care Unavailable HANDY HENDERSON Primary Care Unavailable TESTTRINY CONTRERAS Referring Unavailable TESTTRINY CONTRERAS Attending Unavailable HENDERSON HANDY L Primary Care Unavailable HANDY HENDERSON L Primary Care Unavailable MIGEL GÓMEZ Referring Unavailable HANDY HENDERSON Attending Unavailable HANDY HENDERSON Primary Care Unavailable HENDERSONHANDY Primary Care Unavailable TESTTRINY CONTRERAS Attending Unavailable HENDERSONHANDY L Primary Care Unavailable TESTTRINY CONTRERAS Referring Unavailable MIGEL GÓMEZ Referring Unavailable HANDY HENDERSON Primary Care Unavailable HANDY HENDERSON Attending Unavailable HANDY HENDERSON Primary Care Unavailable GEORGE PACHECO Attending Unavailable HENDERSONHANDY DUARTE L Primary Care Unavailable Medications Current Medications Medication [...] 10 mg PO DAILY March 07, 2018 1:00am June 16, 2019 2:29pm Start: 01-26-2013 End: 03-07-2018 take 1 tablet by mouth twice daily Amlodipine 2.5 MG tablet Discontinued 2.5 mg PO TWICE A DAY January 26, 2013 12:00am March 07, 2018 3:34pm amoxicillin 500 mg / clavulanate 125 mg oral tablet (3 sources) Penicillin-class Antibacterial Start: 11-07-2023 End: 11-12-2023 take 1 tablet by mouth every twelve hours amoxicillin-clavulanate potassium (AUGMENTIN) 500-125 mg per tablet Indications: Acute non-recurrent sinusitis, unspecified location Take 1 tablet by mouth every 12 hours for 5 days. 10 tablet 0 11/07/2023 11/12/2023 Active Start: 11-28-2022 End: 12-05-2022 amoxicillin-clavulanic acid (AUGMENTIN) 875-125 mg per tablet Take 1 tablet by mouth twice daily for 7 days. FOR 7 DAYS. 14 tablet 0 11/28/2022 12/05/2022 Active Comment on above: Take 1 tablet by sydney th twice daily for 7 days. FOR 7 DAYS. aspirin 325 mg oral tablet (20 sources) Platelet Aggregation Inhibitor, Nonsteroidal Anti-inflammatory Drug Start: 06-03-2024 Aspirin 325 mg tablet Active 81 mg PO DAILY June 03, 2024 3:20pm Start: 03-17-2022 End: 06-03-2024 take 1 tablet by mouth once daily Aspirin 325 mg tablet Discontinued 325 mg PO DAILY March 17, 2022 1:00am June 03, 2024 3:21pm Start: 06-17-2021 End: 06-17-2021 aspirin chewable tablet 81 m g Start: 01-06-2016 End: 06-16-2019 take 1 tablet by mouth once daily aspirin, enteric coated (ECOTRIN LOW STRENGTH) 81 mg EC tablet Take 1 tablet by mouth once daily. 0 01/06/2016 Active Start: 01-26-2013 End: 03-07-2018 take 1 tablet by mouth once daily Aspirin 325 MG tablet Discontinued 325 mg PO DAILY January 26, 2013 12:00am March 07, 2018 3:34pm Comment on above: Take 1 tablet by sydney once daily. atorvastatin 40 mg oral tablet (20 sources) HMG-CoA Reductase Inhibitor Start: 2 End: 2 take 40 mg by mouth once daily 40 mg, Oral, DAILY, First dose on 06/12/21 at 0900, Until Discontinued Start: 09-17-2019 End: 06-09-2022 take 0.5 tablet by mouth once daily atorvastatin (LIPITOR) 40 mg tablet Indications: Hypercholesteremia Take 0.5 tablets by mouth once daily. 45 tablet 1 09/17/2019 06/09/2022 Discontinued Start: 06-16-2019 End: 06-17-2024 take 1 tablet by mouth once daily atorvastatin (LIPITOR) 40 mg tablet Indications: Hypercholesteremia Take 1 tablet by mouth once daily. 90 tablet 3 06/17/2024 Active Start: 01-26-2013 End: 06-16-2019 take 1 tablet by mouth at bedtime Atorvastatin 10 MG tablet Discontinued 10 mg PO AT BEDTIME January 26, 2013 12:00am June 16, 2019 2:26pm Comment on above: Take 0.5 tablets by mouth once daily. Take 1 tablet by sydney th once daily. benoxinate hydrochloride 4 mg/ml / fluorescein sodium 2.5 mg/ml ophthalmic solution (2 sources) Diagnostic Dye Start: 01-13-2022 End: 01-14-2022 fluorescein-benoxi yaron 0.25-0.4 % 1 Drop (FLURESS) Start: 11-07-2021 End: 11-08-2021 fluorescein-benoxinate 0.25- 0.4 % 1 Drop (FLURESS) Blood-Glucose Meter (12 sources) Start: 10-23-2022 Blood-Glucose Meter Active 0 .Route October 23, 2022 12:32pm 4x/day Start: 10-23-2022 Blood-Glucose Meter Active 0 .Route October 23, 2022 11:32am 4x/day Start: 10-19-2022 End: 10-23-2022 Blood-Glucose Meter Disconti nued 0 .Route October 19, 2022 1:33pm October 23, 2022 12:32pm As directed Start: 10-19-2022 End: 10-23-2022 Blood-Glucose Meter Disconti nued 0 .Route October 19, 2022 12:33pm October 23, 2022 11:32am As directed Start: 10-13-2022 End: 10-19-2022 Blood-Glucose Meter Disconti nued 0 .Route October 13, 2022 12:00am October 19, 2022 1:33pm As directed Start: 10-13-2022 End: 10-19-2022 Blood-Glucose Meter Disconti nued 0 .Route October 12, 2022 11:00pm October 19, 2022 12:33pm As directed Blood-Glucose Meter (Accu-Ch ek Guide Glucose Meter) misc (3 sources) Start: 06-04-2023 Blood-Glucose Meter (Accu-Chek Guide Glucose Meter) misc Active 0 .Route 1 June 04, 2023 1:00am As directed Blood-Glucose Meter (ONETOUC H ULTRA2) monitoring kit (20 sources) Start: 03-02-2017 Blood-Glucose Meter (ONETOUCH ULTRA2) monitoring kit 1 Each as needed. 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 Blood-Glucose Meter kit (6 sources) Start: 10-23-2022 Blood-Glucose Meter kit Active 0 .Route 1 October 23, 2022 12:32pm 4x/day Start: 10-19-2022 End: 10-23-2022 Blood-Glucose Meter kit Disc ontinued 0 .Route 1 October 19, 2022 1:33pm October 23, 2022 12:32pm As directed Start: 10-13-2022 End: 10-19-2022 Blood-Glucose Meter kit Disc ontinued 0 .Route 1 October 13, 2022 12:00am October 19, 2022 1:33pm As directed Blood-Glucose Meter,Continuo us (DEXCOM G4 OUTDOOR ADVENTURE INSTRUCTOR-SHARE KIT) misc (20 sources) Start: 08-06-2019 Blood-Glucose Meter,Continuous (DEXCOM G4 OUTDOOR ADVENTURE INSTRUCTOR-SHARE KIT) misc Indications: 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) One Mesa device, patient checks blood sugars 12 times daily 1 Each 08/06/2019 Active Start: 08-06-2019 Blood-Glucose Meter,Continuous (DEXCOM G4 OUTDOOR ADVENTURE INSTRUCTOR-SHARE KIT) misc Indications: 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 1 Each 08/06/2019 Active Start: 08-06-2019 Blood-Glucose Meter,Continuous (DEXCOM G6 OUTDOOR ADVENTURE INSTRUCTOR) misc 1 Each as directed. 1 Each 0 08/06/2019 Active Comment on above: 1 Each as directed. 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) Change Sensor every 14 days Patient reading blood sugar 12 times daily 6 Each 3 08/06/2019 Active Comment on above: Change Sensor every 14 days Patient reading blood sugar 12 times daily Blood-Glucose Sensor (Dexcom G6 Sensor) device (20 sources) Start: 09-22-2021 Blood-Glucose Sensor (Dexcom G6 Sensor) device Active 0 .ROUTE .MEDSUPPLY September 22, 2021 2:43pm As directed Start: 09-22-2021 Blood-Glucose Sensor (Dexcom G6 Sensor) device Active 0 .ROUTE .MEDSUPPLY September 22, 2021 3:43pm As directed Start: 08-26-2020 End: 09-22-2021 Blood-Glucose Sensor (Dexcom G6 Sensor) device Discontinued 0 .ROUTE .MEDSUPPLY August 26, 2020 1:49pm September 22, 2021 2:43pm As directed Start: 08-26-2020 End: 09-22-2021 Blood-Glucose Sensor (Dexcom G6 Sensor) device Discontinued 0 .ROUTE .MEDSUPPLY August 26, 2020 2:49pm September 22, 2021 3:43pm As directed Start: 08-26-2020 Blood-Glucose Sensor (Dexcom G6 Sensor) device Active 0 .ROUTE .MEDSUPPLY August 26, 2020 2:49pm As directed Start: 02-12-2020 End: 08-26-2020 Blood-Glucose Sensor (Dexcom G6 Sensor) device Discontinued 0 .ROUTE .MEDSUPPLY February 12, 2020 12:00am August 26, 2020 1:50pm As directed Start: 02-12-2020 End: 08-26-2020 Blood-Glucose Sensor (Dexcom G6 Sensor) device Discontinued 0 .ROUTE .MEDSUPPLY February 12, 2020 1:00am August 26, 2020 2:50pm As directed Blood-Glucose Transmitter (DEXCOM G6 TRANSMITTER) darleen (20 sources) Start: 08-06-2019 Blood-Glucose Transmitter (DEXCOM G6 TRANSMITTER) darleen 1 Each as directed. 1 Each 08/06/2019 Active Start: 08-06-2019 Blood-Glucose Transmitter (DEXCOM G6 TRANSMITTER) darleen 1 Each as directed. 1 Each 0 08/06/2019 Active Comment on above: 1 Each as directed. Blood-Glucose Transmitter (Dexcom G6 Transmitter) device (20 sources) Start: 09-22-2021 Blood-Glucose Transmitter (Dexcom G6 Transmitter) device Active 0 .ROUTE .MEDSUPPLY 1 September 22, 2021 2:43pm change every 90 days Start: 09-22-2021 Blood-Glucose Transmitter (Dexcom G6 Transmitter) device Active 0 .ROUTE .MEDSUPPLY 1 September 22, 2021 3:43pm change every 90 days Start: 08-26-2020 End: 09-22-2021 Blood-Glucose Transmitter (D excom G6 Transmitter) device Discontinued 0 .ROUTE .MEDSUPPLY 1 August 26, 2020 1:50pm September 22, 2021 2:43pm change every 90 days Start: 08-26-2020 End: 09-22-2021 Blood-Glucose Transmitter (D excom G6 Transmitter) device Discontinued 0 .ROUTE .MEDSUPPLY August 26, 2020 2:50pm September 22, 2021 3:43pm change every 90 days Start: 08-26-2020 Blood-Glucose Transmitter (Dexcom G6 Transmitter) device Active 0 .ROUTE .MEDSUPPLY August 26, 2020 2:50pm change every 90 days Start: 02-12-2020 End: 08-26-2020 Blood-Glucose Transmitter (D excom G6 Transmitter) device Discontinued 0 .ROUTE .MEDSUPPLY February 12, 2020 12:00am August 26, 2020 1:50pm change every 90 days Start: 02-12-2020 End: 08-26-2020 Blood-Glucose Transmitter (D excom G6 Transmitter) device Discontinued 0 .ROUTE .MEDSUPPLY 1 February 12, 2020 1:00am August 26, 2020 2:50pm change every 90 days BP cuff (14 sources) Start: 11-27-2019 BP cuff Active November 26, 2019 11:00pm For use of monitoring BP Start: 11-27-2019 BP cuff Active November 27, 2019 12:00am For use of monitoring BP 12 hr buPROPion hydrochloride 100 mg extended release oral tablet (20 sources) Aminoketone Start: 08-15-2023 take 1 tablet by mouth twice daily Bupropion Hcl (Wellbutrin Sr) 100 mg tablet sustained-release 12 hr Active 100 mg PO TWICE A DAY August 15, 2023 12:00am Start: 05-11-2022 End: 04-06-2023 take 1 tablet by mouth once daily buPROPion XL (WELLBUTRIN XL) 150 mg 24 hr tablet Take 1 tablet by mouth once daily. 90 tablet 1 07/10/2022 04/06/2023 Discontinued (Course of therapy completed) Start: 03-07-2018 End: 06-16-2019 take 1 tablet by mouth once daily, then take 1 tablet by mouth every twelve hours Bupropion Hcl (Smoking Deter) 150 mg tablet extended release 12 hr Discontinued 150 mg PO DAILY March 07, 2018 1:00am June 16, 2019 2:25pm Comment on above: Take 1 tablet by sydney th once daily. TAKE 1 TABLET BY SYDNEY TH EVERY [...] and fax to Dr. Leon Skinner at [phone] 1 Each 0 06/22/2021 Active Start: 06-21-2021 CUSTOM MEDICAT ION Please obtain weekly BMP and CBC for two weeks and fax results to Dr. Leon Skinner at [phone]. 1 Each 0 06/21/2021 Active cyclobenzaprine hydrochloride [...] oral tablet (20 sources) Loop Diuretic Start: End: take 1 tablet by mouth once furosemide [...] Drop ( AK-DILATE, DAVID-SYNEPHRINE) polyethylene glycol 3350 145396 mg / potassium chloride 2970 mg / sodium bicarbonate 6740 mg / sodium chloride 5860 mg / sodium sulfate 25186 mg powder for oral solution (1 source) [...] both e yes four times daily. sennosides, detention 8.6 mg oral tablet (12 sources) Start: [...] Dihydrofolate Reductase Inhibitor Antibacterial, Sulfonamide Antimicrobial Start: End: 4 take 1 tablet by mouth [...] on above: TAKE 1 CAPSULE BY MO UT EVERYDAY AT BEDTIME 12 hr timolol 5 mg/ml ophthalmic solution (20 sources) beta-Adrenergic Siddhartha Start: 5 End: timolol maleate (TIMOPTIC) 0.5 % ophthalmic solution [...] Start: 04-14-2021 take 2 tablets by mo [facility] every six hours as needed acetaminophen [...] every 8 hours as needed for pain. [id number] 200 actuat albuterol 0.09 mg/actuat metered dose inhaler (20 sources) beta2-Adrenergic Agonist Start: 06-12-2021 End: 06-21-2021 take 2 puff(s) by inhalation every six hours as needed 2 puff, Inhalation, EVERY 6 HOURS NEEDED, Starting on 06/12/21 at 0145, Until Sun06/21/21 at 1627, Shortness of Breath Wait at [...] on above: Take 1 capsule by mo uth twice daily for 10 days. Take 1 capsule by mo uth three times daily. dexamethasone 0.001 mg/mg / [...] on above: Take 1 tablet by sydney twice daily for 5 days. Take 1 tablet by sydney twice daily for 10 days. Take 1 [...] Day Sensor) kit Discontinued 0 .ROUTE .MEDSUPPLY 1 March 20, 2018 12:00am March 20, 2018 1:45pm apply to back of arm to moniter BG. change q 14 days Start: 03-20-2018 End: 03-20-2018 Flash Glucose Sensor (Freest ylisela Maikol 14 Day Sensor) kit Discontinued 0 [...] as needed (Low glucose levels.). Active Gum Nweelo-Shdulc-XCss-Alcoh ol (MASTISOL ADHESIVE) dpet (20 sources) Start: 10-09-2020 End: 05-10-2024 Gum Iiiufu-Bdllrw-IYqe-Alcoh ol (MASTISOL ADHESIVE) dpet 1 application as directed. 48 Each 3 10/09/2020 05/10/2024 Discontinued (Other) Start: 10-09-2020 Gum [facility]-Sto tmz-UYtc-Cgvpurs (MASTISOL ADHESIVE) dpet 1 application as directed. [...] 1 tablet by sydney th once daily. nystatin [id number] unt/ml oral suspension (20 sources) Polyene Antifungal [...] IV solution 250 mL sodium zirconium cyclosilicate 10556 mg powder for oral suspension (1 source) [...] Active Comment on above: Take by mouth. RBEJRXVDAS-VRNZJMTK-RWGD LAPREV ORAL (20 sources) End: 01-07-2022 EYWIPYQAVV-YIYCHBPL-VUORKVYN EV ORAL Take by mouth. 400-100 daily 01/07/2022 Discontinued (Discontinued by another Health Care Provider) End: 01-07-2022 DKHMUJWLIY-TBIBNUAL-RWJBOAUN EV ORAL Take by mouth. 400-100 daily [...] hours Take by mouth. Vit B Comp No.3-Kpcyz-G-Biotin (12 sources) Start: 03-11-2020 End: 09-19-2021 Vit B Comp No.6-Smmev-B-Biotin Discontinued 1 EACH PO DAILY March 11, 2020 12:00am September 19, 2021 9:07am Start: 03-11-2020 End: 09-19-2021 Vit B Comp No.2-Jhpqy-S-Biot in Discontinued 1 EACH PO DAILY March 11, 2020 1:00am September 19, 2021 10:07am Start: 03-11-2020 Vit B Comp No. 4-Elznu-I-Biotin Active 1 EACH PO DAILY March 11, 2020 1:00am Vit B Comp No.0-Tgwxi-Q-Biotin 1 EACH tablet (2 sources) Start: 03-11-2020 End: 09-19-2021 take 1 tablet by mouth once daily Vit B Comp No.2-Hngrg-A-Biotin 1 EACH tablet Discontinued 1 NMA PO [...] Coronary arteriosclerosis; Translations: [Atherosclerotic heart disease of [place] coronary artery without angina pectoris] Onset: 2 [...] current use of immunosuppressive drug; Translations: [Other emt intermediate (current) drug therapy] Episodic Other aftercare (1 source) Taking high risk medication; Translations: [Other fdc (current) drug therapy] Episodic Other aftercare (1 source) Post-discharge follow-up; Translations: [Encounter for follow-up examination after completed treatment for conditions other than malignant neoplasm] Episodic Other aftercare (1 source) High risk drug monitoring status; Translations: [Encounter for follow-up examination after completed treatment for conditions other than malignant neoplasm] Episodic Other aftercare (1 source) Other emt intermediate (current) drug therapy; Translations: [On angiotensin receptor [...] 02-23-2015 02-23-2015 Episodic Other aftercare (1 source) skilled nursing (current) use of aspirin; Translations: [skilled nursing (current) use of aspirin] Onset: 01-12-2022 Episodic Other aftercare (1 source) skilled nursing (current) use of insulin; Translations: [terminal operator (current) use of insulin] Onset: 01-12-2022 Episodic Other aftercare (1 source) skilled nursing (current) use of antithrombotics/ant iplatelets; Translations: [skilled nursing (current) use of antithrombotics/ant iplatelets] Onset: 01-12-2022 [...] NERVE CIRRUS OU (B OTH EYES)on 09-24-2024 [facility] Radiology Study observation (narrative) [facility] VISUAL FIELD 24-2 OU (BOTH E YES)on 09-24-2024 [facility] Radiology Study observation (narrative) [facility] CNOVon 09-17-2024 CNOV Office Visit (FAMPWS ) -- АНДРЕЙ NICKERSON ([id number]) 1960 M Date Time Provider Department 09/17/24 [...] solution. You (more content not included)... Normal [facility] АНДРЕЙ NICKERSON CLAUDIA ([id number]) 1960 M Date Time Provider Department 08/13/24 HANDY HENDERSON During your visit today, we recorded the [...] blood sugars 3-4 times daily - Insulin [place], Disposable, (BD ULTRAFINE III MINI PEN) 31 gauge x 3/16 use as directed up to four times daily, E11.9 - Blood-Glucose Sensor (DEXCOM G6 SENSOR) darleen Change Sensor every 14 days Patient reading blood sugar 12 times daily - Blood-Glucose Meter,Continuous (DEXCOM G4 OUTDOOR ADVENTURE INSTRUCTOR-SHARE KIT) misc One Mesa device, patient checks blood sugars 12 times daily - Blood-Glucose Transmitter (DEXCOM G6 TRANSMITTER) darleen 1 Each as directed. - Blood-Glucose Meter,Continuous (DEXCOM G6 OUTDOOR ADVENTURE INSTRUCTOR) misc 1 Each as directed. - insulin [...] of left (more content not included)... Normal [facility] Endocrinology Visit Reporton 08-13-2024 Endocrinology Visit Report [facility] [address] [place] [address] OFFICE VISIT Date of Service: 08/13/24 MR#: [id number] Acct: [id number] Name: АНДРЕЙ NICKERSON Rep #: [id number] : 1960 Provider: ANJUM persaud Age/Sex: 63/M Location: [facility] Status: Signed Intake Vital Signs 02/13/24 13:05 [...] 1 - 2 puff inhalation Q6H PRN IA N 07/24/19 08/13/24 History aerosol inhaler Wheezing [...] disease) NORBERTO (obstructive sleep apnea) Atherosclerosis of [place] coronary artery of [place] heart without angina pectoris Essential hypertension Diabetic [...] catheterization F (more content not included)... Normal [facility] 25-hydroxyvitamin D3 [Mass/Vol] 12.4 ng/mL Low 31.0-80.0 [facility] Comment on above: Order Comment: Praveen reyes Type: BLOOD SPECIMENOrdering Facility: [facility] Address: [address] [place] [address] Result Comment: Clas sification of 25 [place] Vitamin D status: Deficiency/Insufficiency: < or = 30 ng/ml. Sufficiency/Optimal Levels: 31-80 ng/mL Toxicity: > 100 ng/mL. Test performed by chemiluminescent immunoassay. Performed By: #### 1 989-3 ####[facility] LABIA [id number] [place] [address] [place] Basic metabolic 2000 panelon 08-11-2024 Anion gap [Moles/Vol] 10 mmol/L Normal 8-15 [facility] Comment on above: Order Comment: Praveen reyes Type: BLOOD SPECIMENOrdering Facility: [facility] Address: [address] [place] [address] Performed By: #### 3 024-7, 6875-9, 3016-3, 91709-0 ####[facility] LABIA [id number] [place] [address] [place] Calcium [Mass/Vol] 9.3 mg/dL Normal 8.5-10.2 [facility] Comment on above: Order Comment: Praveen reyes Type: BLOOD SPECIMENOrdering Facility: [facility] Address: [address] [place] [address] Performed By: #### 3 024-7, 6875-9, 3016-3, 96269-9 ####[facility] LABCLIA [id number] [address] [address] [place] Chloride [Moles/Vol] 108 mmol/L High 98-107 [facility] Comment on above: Order Comment: Speci men Type: BLOOD SPECIMENOrdering Facility: [facility] Address: [address] [place] [address] Performed By: #### 3 024-7, 6875-9, 3016-3, 20061-0 ####[facility] LABCLIA [id number] [place] [address] [place] CO2 [Moles/Vol] 18 mmol/L Low 22-30 [facility] Comment on above: Order Comment: Speci men Type: BLOOD SPECIMENOrdering Facility: [facility] Address: [address] [place] [address] Performed By: #### 3 024-7, 6875-9, 3016-3, 76627-8 ####[facility] LABCLIA [id number] [place] [id number] [place] Creatinine [Mass/Vol] 2.43 mg/dL High 0.73-1.22 [facility] Comment on above: Order Comment: Speci men Type: BLOOD SPECIMENOrdering Facility: [facility] Address: [address] [place] [address] Performed By: #### 3 024-7, 6875-9, 3016-3, 71803-5 ####[facility] LABIA [id number] [place] [id number] [place] Creatinine and Glomerular filtration rate.predicted panel (S/P/Bld) 30 mL/min/1.73m??? Low >=60 [facility] Comment on above: Order Comment: Speci men Type: BLOOD SPECIMENOrdering Facility: [facility] Address: [address] [place] [address] Result Comment: Leah mated Glomerular Filtration Rate [...] Performed By: #### 3 024-7, 6875-9, 3016-3, 96260-9 ####[facility] LABIA [id number] [address] [address] [place] Glucose [Mass/Vol] 110 mg/dL High 74-99 [facility] Comment on above: Order Comment: Praveen reyes Type: BLOOD SPECIMENOrdering Facility: [facility] Address: [address] [place] [address] Result Comment: The [place] Diabetes Association (ADA) provides guidance for cutoff [...] Standards of Medical Care in Diabetes 2016, [place] Diabetes Association. Diabetes Care. 2016.39(Suppl 1). Performed By: #### 3 024-7, 6875-9, 3016-3, 23439-9 ####[facility] [id number] [address] [address] [place] Potassium [Moles/Vol] 4.4 mmol/L Normal 3.7-5.1 [facility] Comment on above: Order Comment: Praveen reyes Type: BLOOD SPECIMENOrdering Facility: [facility] Address: [address] [place] [address] Performed By: #### 3 024-7, 6875-9, 3016-3, 38917-7 ####[facility] LABCLIA [id number] [place] [address] [place] Sodium [Moles/Vol] 136 mmol/L Normal 136-144 [facility] Comment on above: Order Comment: Speci men Type: BLOOD SPECIMENOrdering Facility: [facility] Address: [address] [place] [address] Performed By: #### 3 024-7, 6875-9, 3016-3, 88500-1 ####[facility] LABCLIA [id number] [place] [address] [place] Urea nitrogen [Mass/Vol] 17 mg/dL Normal 9-24 [facility] Comment on above: Order Comment: Speci men Type: BLOOD SPECIMENOrdering Facility: [facility] Address: [address] [place] [address] Performed By: #### 3 024-7, 6875-9, 3016-3, 63159-0 ####[facility] LABCLIA [id number] [place] [address] [place] CBC W Auto Differential pane l (Bld)on 08-11-2024 Basophils (Bld) [#/Vol] 0.04 10*3/uL Normal <0.11 [facility] Comment on above: Order Comment: Speci men Type: BLOOD SPECIMENOrdering Facility: [facility] Address: [address] [place] [address] Performed By: #### 5 7021-8 ####[facility] LABCLIA [id number] [place] [address] [place] Basophils/100 WBC (Bld) 0.8 % Normal [facility] Comment on above: Order Comment: Speci men Type: BLOOD SPECIMENOrdering Facility: [facility] Address: [address] [place] [address] Performed By: #### 5 7021-8 ####[facility] LABCLIA [id number] [facility] [address], [facility] [place] [place] Differential cell count method Nom (Bld) Auto Normal [facility] Comment on above: Order Comment: Speci men Type: BLOOD SPECIMENOrdering Facility: [facility] Address: [facility] [address] [place] [address] Performed By: #### 5 7021-8 ####[facility] LABCLIA [id number] [address], [place] [address] [place] Eosinophils (Bld) [#/Vol] 0.09 10*3/uL Normal <0.46 [facility] Comment on above: Order Comment: Speci men Type: BLOOD SPECIMENOrdering Facility: [facility] Address: [facility] [address] [place] [address] Performed By: #### 5 7021-8 ####[facility] LABCLIA [id number] [address], [place] [address] [place] Eosinophils/100 WBC (Bld) 1.9 % Normal [facility] Comment on above: Order Comment: Speci men Type: BLOOD SPECIMENOrdering Facility: [facility] Address: [facility] [address] [place] [address] Performed By: #### 5 7021-8 ####[facility] LABCLIA [id number] [address], [facility] [place] [place] Erythrocyte distribution width (RBC) [Ratio] 14.6 % Normal 11.5-15.0 [facility] Comment on above: Order Comment: Speci men Type: BLOOD SPECIMENOrdering Facility: [facility] Address: [facility] [address] [place] [address] Performed By: #### 5 7021-8 ####[facility] LABCLIA [id number] [address], [facility] [place] [place] Hematocrit (Bld) [Volume fraction] 41.4 % Normal 39.0-51.0 [facility] Comment on above: Order Comment: Speci men Type: BLOOD SPECIMENOrdering Facility: [facility] Address: [address] [place] [address] Performed By: #### 5 7021-8 ####[facility] LABCLIA [id number] [place] [id number] [place] Hemoglobin (Bld) [Mass/Vol] 12.4 g/dL Low 13.0-17.0 [facility] Comment on above: Order Comment: Speci men Type: BLOOD SPECIMENOrdering Facility: [facility] Address: [address] [place] [address] Performed By: #### 5 7021-8 ####[facility] LABCLIA [id number] [place] [address] [place] Immature granulocytes (Bld) [#/Vol] 10*3/uL Normal <0.10 [facility] Comment on above: Order Comment: Speci men Type: BLOOD SPECIMENOrdering Facility: [facility] Address: [address] [place] [address] Performed By: #### 5 7021-8 ####[facility] LABCLIA [id number] [place] [address] [place] Immature granulocytes/100 WBC (Bld) 0.4 % Normal [facility] Comment on above: Order Comment: Speci men Type: BLOOD SPECIMENOrdering Facility: [facility] Address: [address] [place] [address] Performed By: #### 5 7021-8 ####[facility] LABCLIA [id number] [place] [id number] [place] Lymphocytes (Bld) [#/Vol] 1.13 10*3/uL Normal 1.00-4.00 [facility] Comment on above: Order Comment: Speci men Type: BLOOD SPECIMENOrdering Facility: [facility] Address: [address] [place] [address] Performed By: #### 5 7021-8 ####[facility] LABCLIA [id number] [place] [id number] [place] Lymphocytes/100 WBC (Bld) 23.7 % Normal [facility] Comment on above: Order Comment: Speci men Type: BLOOD SPECIMENOrdering Facility: [facility] Address: [facility] [address] [place] [address] Performed By: #### 5 7021-8 ####[facility] LABIA [id number] [place] [address] [place] MCH (RBC) [Entitic mass] 26.8 pg Normal 26.0-34.0 [facility] Comment on above: Order Comment: Speci men Type: BLOOD SPECIMENOrdering Facility: [facility] Address: [facility] [place] [address] Performed By: #### 5 7021-8 ####[facility] LABIA [id number] [place] [address] [place] MCHC (RBC) [Mass/Vol] 30.0 g/dL Low 30.5-36.0 [facility] Comment on above: Order Comment: Speci men Type: BLOOD SPECIMENOrdering Facility: [facility] Address: [facility] [address] [place] [address] Performed By: #### 5 7021-8 ####[facility] LABIA [id number] [place] [address] [place] MCV (RBC) [Entitic vol] 89.4 fL Normal 80.0-100.0 [facility] Comment on above: Order Comment: Speci men Type: BLOOD SPECIMENOrdering Facility: [facility] Address: [facility] [address] [place] [address] Performed By: #### 5 7021-8 ####[facility] LABIA [id number] [place] [id number] [place] Monocytes (Bld) [#/Vol] 0.70 10*3/uL Normal <0.87 [facility] Comment on above: Order Comment: Speci men Type: BLOOD SPECIMENOrdering Facility: [facility] Address: [address] [place] [address] Performed By: #### 5 7021-8 ####[facility] LABCLIA [id number] [address] [address] [place] Monocytes/100 WBC (Bld) 14.7 % Normal [facility] Comment on above: Order Comment: Speci men Type: BLOOD SPECIMENOrdering Facility: [facility] Address: [address] [place] [address] Performed By: #### 5 7021-8 ####[facility] LABIA [id number] [place] [id number] [place] Neutrophils (Bld) [#/Vol] 2.78 10*3/uL Normal 1.45-7.50 [facility] Comment on above: Order Comment: Speci men Type: BLOOD SPECIMENOrdering Facility: [facility] Address: [address] [place] [address] Performed By: #### 5 7021-8 ####[facility] LABIA [id number] [place] [id number] [place] Neutrophils/100 WBC (Bld) 58.5 % Normal [facility] Comment on above: Order Comment: Speci men Type: BLOOD SPECIMENOrdering Facility: [facility] Address: [address] [place] [address] Performed By: #### 5 7021-8 ####[facility] LABIA [id number] [place] [id number] [place] Nucleated RBC (Bld) [#/Vol] 10*3/uL Normal <0.01 [facility] Comment on above: Order Comment: Speci men Type: BLOOD SPECIMENOrdering Facility: [facility] Address: [address] [place] [address] Performed By: #### 5 7021-8 ####[facility] LABCLIA [id number] [address] [place] [address] [place] Nucleated RBC/100 WBC (Bld) [Ratio] 0.0 /100 WBC Normal [facility] Comment on above: Order Comment: Speci men Type: BLOOD SPECIMENOrdering Facility: [facility] Address: [address] [place] [address] Performed By: #### 5 7021-8 ####[facility] LABCLIA [id number] [address] [place] [address] [place] Platelet mean volume (Bld) [Entitic vol] 9.5 fL Normal 9.0-12.7 [facility] Comment on above: Order Comment: Speci men Type: BLOOD SPECIMENOrdering Facility: [facility] Address: [address] [place] [address] Performed By: #### 5 7021-8 ####[facility] LABIA [id number] [address] [address] [place] Platelets (Bld) [#/Vol] 226 10*3/uL Normal 150-400 [facility] Comment on above: Order Comment: Speci men Type: BLOOD SPECIMENOrdering Facility: [facility] Address: [address] [place] [address] Performed By: #### 5 7021-8 ####[facility] LABIA [id number] [address] [place] [address] [place] RBC (Bld) [#/Vol] 4.63 10*6/uL Normal 4.20-6.00 [facility] Comment on above: Order Comment: Speci men Type: BLOOD SPECIMENOrdering Facility: [facility] Address: [address] [place] [address] Performed By: #### 5 7021-8 ####[facility] LABIA [id number] [address] [place] [address] [place] WBC (Bld) [#/Vol] 4.76 10*3/uL Normal 3.70-11.00 [facility] Comment on above: Order Comment: Speci men Type: BLOOD SPECIMENOrdering Facility: [facility] Address: [address] [place] [address] Performed By: #### 5 7021-8 ####[facility] LABCLIA [id number] [address] [facility] CNOVon 08-11-2024 CNOV Office Visit (PODIWS ) -- АНДРЕЙ NICKERSON ([id number]) 1960 M Date Time Provider Department 08/11/24 [...] (or decreased sensation in your feet) a refrigerator car icer should always cut your toenails. Be Careful [...] Go to your health care provider or refrigerator car icer to treat these conditions. Triny Palmer 08/11/2024 [...] shoes Vasc: (more content not included)... Normal [facility] Cancer Ag15-3 SerPl-aCncon 0 08-11-2024 Cancer Ag 15-3 Qn 18.4 U/mL Normal <26.0 [facility] Comment on above: Order Comment: Speci men Type: BLOOD SPECIMENOrdering Facility: [facility] Address: [address], [place] [address] Result Comment: The CA 15-3 test methodology used is the Electrochemiluminescence Immunoassay by [employer]. Results obtained with different methods or kits cannot be used interchangeably. Performed By: #### 3 024-7, 6875-9, 3016-3, 31956-3 ####[facility] LABCLIA [id number] [address] [address] [place] Sirolimus Bld-mCncon 025 Sirolimus (Bld) [Mass/Vol] 7.2 ng/mL Normal 4.0-12.0 [facility] Comment on above: Order Comment: Speci men Type: BLOOD SPECIMENOrdering Facility: [facility] Address: [address] [place] [address] Result Comment: The optimal therapeutic range may vary based on the indication for treatment, transplant type, time post transplant, simultaneous use of other immunosuppressive drugs, and clinical or institutional protocols. It is recommended to interpret the results in conjunction with this information and the patient's clinical context. This test was developed and its performance characteristics determined by [facility] Pathology and Laboratory Medicine [place] ([facility]). It has not been cleared or approved by the FDA. [facility] is regulated under CLIA as qualified to perform high-complexity testing. This test is used for clinical purposes. It should not be regarded as investigational or for research. Test performed by LC-MS/MS Performed By: #### 2 9247-4 ####[facility] [id number] [place] [id number] [place] T4 Free SerPl-mCncon 025 Free T4 [Mass/Vol] 1.1 ng/dL Normal 0.9-1.7 [facility] Comment on above: Order Comment: Speci men Type: BLOOD SPECIMENOrdering Facility: [facility] Address: [address] [place] [address] Performed By: #### 3 024-7, 6875-9, 3016-3, 88471-4 ####[facility] LABIA [id number] [place] [id number] [place] TSH SerPl-aCncon 08-11-2024 TSH Qn 2.190 m[IU]/L Normal 0.270-4.20 0 [facility] Comment on above: Order Comment: Speci men Type: BLOOD SPECIMENOrdering Facility: [facility] Address: [address] [place] [address] Performed By: #### 3 024-7, 6875-9, 3016-3, 36074-5 ####[facility] LABCLIA [id number] [place] [address] [place] Vit B12 [facility] Serviceson 05-12-2 025 Cobalamin (Vitamin B12) [Mass/Vol] 256 pg/mL Normal 232-1245 [facility] Comment on above: Order Comment: Speci men Type: BLOOD SPECIMENOrdering Facility: [facility] Address: [address] [place] [address] Performed By: #### 2 132-9 ####[facility] LABCLIA [id number] [place] [address] [place] Echo Completeon 07-07-2024 Echo Complete [facility] [address] [place] [id number] Echo Complete 07/07/24 1405 MR#: [id number] Acct: [id number] Name: АНДРЕЙ NICKERSON Rep #: [id number] : 1960 63 From: Pavan Shell MD Attending Dr: AUDIE Martin Status: REG CLI Ordering Dr: Radha Moss Date: 10/24 Location: [facility] Sex: M C Admitted: Reason For Study [...] By: Millie Cooper RCS 07/07/24 1608 Date Pavan Shell MD CC: Dr. Handy Henderson DO; AUDIE Martin Date Dictated: 07/07/241404 Date Transcribed: 07/07/24 160 Consulting Hr Professional: Signed Normal [facility] Echocardiogram study reportO rdered By: Pavan Shell on 07-07-2024 Study report [facility] [address] [place] [address] Echo Complete 07/07/241404 MR#: [id number] Acct: [id number] Name: АНДРЕЙ NICKERSON Rep #:[id number] : 1960 63 From: Pavan Chu Attending Dr: AUDIE Martin Status: REG CLI Ordering Dr: Radha Moss Date: 07/07/24 Location: [facility] Sex: M C Admitted: Reason For Study [...] ~ Date Dictated: 07/07/24 1405 Date Transcribed: 07/07/24 1608 Consulting Hr Professional: Signed [facility] Work Phone: LOUANNsteffen 06-17-2024 CNOV Office Visit (FAMPWS ) -- АНДРЕЙ NICKERSON ([id number]) 1960 M Date Time Provider Department 06/17/24 2:20 PM [facility] today, we recorded the following information about you: Temperature Pulse Respiration Blood pressure 97 degrees 68/minute 20/minute 130/70 Weight 115.7 kg Handy Henderson DO 06/18/2024 10:36 PM Signed CC: Андрей Nickerson is a [...] transplant, continues to follow up 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 HPL, taking statin therapy with lipitor 40 mg a day + chronic fatigue Hx of aortic dilation and LVH on echo- + chronic intermittent dyspnea, no chest pressure or pain or palpitations or syncope PAST MEDICAL HISTORY Diagnosis Date Arrhythmia CKD (chronic kidney disease) stage 3, GFR 30-59 ml/min ([facility]) [facility] Coronary artery disease 2005 s/p PCI. 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 Leon [facility] Heart attack (HCC) Hyperlipidemia Hypertension Lacunar stroke (HCC) Macular edema [facility] MVP (mitral valve prolapse) Pancreatitis Proliferative diabetic retinopathy(362.02) [facility] Snoring Stroke ([facility]) 2017 Tobacco abuse PAST SURGICAL HISTORY Procedure [...] Checking blood sugars 3-4 times daily Insulin [place], Disposable, (BD ULTRAFINE III MINI PEN) 31 gauge x 3/16 use as directed up to four times daily, E11.9 Blood-Glu (more content not included)... Normal [facility] Basic metabolic 2000 panelon 06-03-2024 Anion gap [Moles/Vol] 6 mmol/L Low 8-15 [facility] Comment on above: Order Comment: Speci men Type: BLOOD SPECIMENOrdering Facility: [facility] Address: [address] [place] [address] Performed By: #### 2 4321-2 ####[facility] [id number] [place] [id number] [place]#### 6875-9 ####[facility] LABORATORYCLIA [id number] [place] [address] [place] Calcium [Mass/Vol] 9.1 mg/dL Normal 8.5-10.2 [facility] Comment on above: Order Comment: Speci men Type: BLOOD SPECIMENOrdering Facility: [facility] Address: [address] [place] [address] Performed By: #### 2 4321-2 ####[facility] JEOVANYTOWNCLIA [id number] [place] [address] [place]#### 6875-9 ####[facility]ORYCL[facility] [id number] [place] [address] [place] Chloride [Moles/Vol] 109 mmol/L High 98-107 [facility] Comment on above: Order Comment: Speci men Type: BLOOD SPECIMENOrdering Facility: [facility] Address: [address] [place] [address] Performed By: #### 2 4321-2 ####[facility] JEOVANYWNCLIA [id number] [place] [address] [place]#### 6875-9 ####[facility]ORATORYCLIA [id number] [place] [address] [place] CO2 [Moles/Vol] 22 mmol/L Normal 22-30 [facility] Comment on above: Order Comment: Speci men Type: BLOOD SPECIMENOrdering Facility: [facility] Address: [address] [place] [address] Performed By: #### 2 4321-2 ####[facility] MILLTOWNCLIA [id number] [place] [address] [place]#### 6875-9 ####[facility]OR[facility]ORYCL[facility] [id number] [place] [address] [place] Creatinine [Mass/Vol] 2.19 mg/dL High 0.73-1.22 [facility] Comment on above: Order Comment: Speci men Type: BLOOD SPECIMENOrdering Facility: [facility] Address: [address] [place] [address] Performed By: #### 2 4321-2 ####[facility] [id number] [address]#### 6875-9 ####[facility]ENTER[facility] [id number] [address] Creatinine and Glomerular filtration rate.predicted panel (S/P/Bld) 33 mL/min/1.73m??? Low >=60 [facility] Comment on above: Order Comment: Praveen reyes Type: BLOOD SPECIMENOrdering Facility: [facility] Address: [address] [place] [address] Result Comment: Leah mated Glomerular Filtration Rate [...] actual GFR. Performed By: #### 2 4321-2 ####[facility] [id number] [address]#### 6875-9 ####[facility] [id number] [address] Glucose [Mass/Vol] 104 mg/dL High 74-99 [facility] Comment on above: Order Comment: Praveen reyes Type: BLOOD SPECIMENOrdering Facility: [facility] Address: [address] [place] [address] Result Comment: The [place] [employer] (ADA) provides guidance for cutoff [...] Standards of Medical Care in Diabetes 2016, [place] [employer]. Diabetes Care. 2016.39(Suppl 1). Performed By: #### 2 4321-2 ####[facility] [id number] [place] [address] [place]#### 6875-9 ####[facility] LABORATORYCLIA [id number] [place] [address] [place] Potassium [Moles/Vol] 4.3 mmol/L Normal 3.7-5.1 [facility] Comment on above: Order Comment: Speci men Type: BLOOD SPECIMENOrdering Facility: [facility] Address: [address] [address] Performed By: #### 2 4321-2 ####[facility] [id number] [address] [place]#### 6875-9 ####[facility] LABORATORYCLIA [id number] [place] [address] [place] Sodium [Moles/Vol] 137 mmol/L Normal 136-144 [facility] Comment on above: Order Comment: Bari men Type: BLOOD SPECIMENOrdering Facility: [facility] Address: [address] [place] [address] Performed By: #### 2 4321-2 ####[facility]ITALLIA [id number] [place] [address] [place]#### 6875-9 ####[facility]ATORYCLIA [id number] [place] [address] [place] Urea nitrogen [Mass/Vol] 20 mg/dL Normal 9-24 [facility] Comment on above: Order Comment: Speci men Type: BLOOD SPECIMENOrdering Facility: [facility] Address: [address] [place] [address] Performed By: #### 2 4321-2 ####[facility]LLASNCLIA [id number] [place] [address] [place]#### 6875-9 ####[facility] LABORATORYCLIA [id number] [place] [id number] [place] CBC W Auto Differential pane l (Bld)on 06-03-2024 Basophils (Bld) [#/Vol] 0.04 10*3/uL Normal <0.11 [facility] Comment on above: Order Comment: Speci men Type: BLOOD SPECIMENOrdering Facility: [facility] Address: [address] [place] [address] Performed By: #### 5 7021-8 ####[facility] [id number] [place] [address] [place] Basophils/100 WBC (Bld) 0.8 % Normal [facility] Comment on above: Order Comment: Speci men Type: BLOOD SPECIMENOrdering Facility: [facility] Address: [address] [place] [address] Performed By: #### 5 7021-8 ####[facility] [id number] [place] [address] [place] Differential cell count method Nom (Bld) Auto Normal [facility] Comment on above: Order Comment: Speci men Type: BLOOD SPECIMENOrdering Facility: [facility] Address: [address] [place] [address] Performed By: #### 5 7021-8 ####[facility] [id number] [place] [address] [place] Eosinophils (Bld) [#/Vol] 0.07 10*3/uL Normal <0.46 [facility] Comment on above: Order Comment: Speci men Type: BLOOD SPECIMENOrdering Facility: [facility] Address: [address] [place] [address] Performed By: #### 5 7021-8 ####[facility] GRACEA [id number] [place] [address] [place] Eosinophils/100 WBC (Bld) 1.5 % Normal [facility] Comment on above: Order Comment: Speci men Type: BLOOD SPECIMENOrdering Facility: [facility] Address: [address] [place] [address] Performed By: #### 5 7021-8 ####[facility] JEOVANYMarleneAMRITDanielle [id number] [place] [address] [place] Erythrocyte distribution width (RBC) [Ratio] 14.9 % Normal 11.5-15.0 [facility] Comment on above: Order Comment: Speci men Type: BLOOD SPECIMENOrdering Facility: [facility] Address: [address] [place] [address] Performed By: #### 5 7021-8 ####[facility] PINELLASMIRIAMTISH [id number] [place] [address] [place] Hematocrit (Bld) [Volume fraction] 42.5 % Normal 39.0-51.0 [facility] Comment on above: Order Comment: Speci men Type: BLOOD SPECIMENOrdering Facility: [facility] Address: [address] [place] [address] Performed By: #### 5 7021-8 ####[facility] JEOVANYBOONES MILLENZO [id number] [place] [address] [place] Hemoglobin (Bld) [Mass/Vol] 13.0 g/dL Normal 13.0-17.0 [facility] Comment on above: Order Comment: Speci men Type: BLOOD SPECIMENOrdering Facility: [facility] Address: [address] [place] [address] Performed By: #### 5 7021-8 ####[facility] PINELLASMIRIAMLIDanielle [id number] [place] [address] [place] Immature granulocytes (Bld) [#/Vol] 0.04 10*3/uL Normal <0.10 [facility] Comment on above: Order Comment: Speci men Type: BLOOD SPECIMENOrdering Facility: [facility] Address: [address] [place] [address] Performed By: #### 5 7021-8 ####[facility] JEOVANYBOONES MILLAMRIT [id number] [place] [address] [place] Immature granulocytes/100 WBC (Bld) 0.8 % Normal [facility] Comment on above: Order Comment: Speci men Type: BLOOD SPECIMENOrdering Facility: [facility] Address: [facility] [address] [place] [address] Performed By: #### 5 7021-8 ####[facility]LLASAMRITDanielle [id number] [place] [address] [place] Lymphocytes (Bld) [#/Vol] 1.27 10*3/uL Normal 1.00-4.00 [facility] Comment on above: Order Comment: Speci men Type: BLOOD SPECIMENOrdering Facility: [facility] Address: [facility] [address] [place] [address] Performed By: #### 5 7021-8 ####[facility]LLASAMRITDanielle [id number] [place] [address] [place] Lymphocytes/100 WBC (Bld) 26.7 % Normal [facility] Comment on above: Order Comment: Speci men Type: BLOOD SPECIMENOrdering Facility: [facility] Address: [facility] [address] [place] [address] Performed By: #### 5 7021-8 ####[facility] PINELLASNCLI [id number] [place] [address] [place] MCH (RBC) [Entitic mass] 27.5 pg Normal 26.0-34.0 [facility] Comment on above: Order Comment: Speci men Type: BLOOD SPECIMENOrdering Facility: [facility] Address: [address] [place] [address] Performed By: #### 5 7021-8 ####[facility] HOSPITALPRAKASH MCDONOUGHAMRITDanielle [id number] [place] [address] [place] MCHC (RBC) [Mass/Vol] 30.6 g/dL Normal 30.5-36.0 [facility] Comment on above: Order Comment: Speci men Type: BLOOD SPECIMENOrdering Facility: [facility] Address: [address] [place] [address] 33934 Performed By: #### 5 7021-8 ####[facility] JEOVANYJEANNIE [id number] [place] [address] [place] MCV (RBC) [Entitic vol] 89.9 fL Normal 80.0-100.0 [facility] Comment on above: Order Comment: Speci men Type: BLOOD SPECIMENOrdering Facility: [facility] Address: [address] [place] [address] 59961 Performed By: #### 5 7021-8 ####[facility] PINELLASENZO [id number] [place] [address] [place] Monocytes (Bld) [#/Vol] 0.82 10*3/uL Normal <0.87 [facility] Comment on above: Order Comment: Speci men Type: BLOOD SPECIMENOrdering Facility: [facility] Address: [address] [place] [address] 16280 Performed By: #### 5 7021-8 ####[facility] P[facility]LLASENZO [id number] [place] [address] [place] Monocytes/100 WBC (Bld) 17.3 % Normal [facility] Comment on above: Order Comment: Speci men Type: BLOOD SPECIMENOrdering Facility: [facility] Address: [address] [place] [address] Performed By: #### 5 7021-8 ####[facility] MADAIWNCLIA [id number] [place] [address] [place] Neutrophils (Bld) [#/Vol] 2.51 10*3/uL Normal 1.45-7.50 [facility] Comment on above: Order Comment: Speci men Type: BLOOD SPECIMENOrdering Facility: [facility] Address: [address] [place] [address]126 Performed By: #### 5 7021-8 ####[facility] P[facility]LLASMIRIAMLIA [id number] [place] [address] [place] Neutrophils/100 WBC (Bld) 52.9 % Normal [facility] Comment on above: Order Comment: Speci men Type: BLOOD SPECIMENOrdering Facility: [facility] Address: [facility] [address] [place] [address] Performed By: #### 5 7021-8 ####[facility]LLASNCLIA [id number] [place] [address] [place] Nucleated RBC (Bld) [#/Vol] 10*3/uL Normal <0.01 [facility] Comment on above: Order Comment: Speci men Type: BLOOD SPECIMENOrdering Facility: [facility] Address: [address] [place] [address] 48768 Performed By: #### 5 7021-8 ####[facility] HOSPITALWMIRIAMLIA [id number] [place] [address] [place] Nucleated RBC/100 WBC (Bld) [Ratio] 0.0 /100 WBC Normal [facility] Comment on above: Order Comment: Speci men Type: BLOOD SPECIMENOrdering Facility: [facility] Address: [facility] [address] [place] [address]130 Performed By: #### 5 7021-8 ####[facility] P[facility]LLASNCLIA [id number] [place] [address] [place] Platelet mean volume (Bld) [Entitic vol] 9.6 fL Normal 9.0-12.7 [facility] Comment on above: Order Comment: Speci men Type: BLOOD SPECIMENOrdering Facility: [facility] Address: [address] [place] [address] Performed By: #### 5 7021-8 ####[facility]ASNCLIA [id number] [place] [address] [place] Platelets (Bld) [#/Vol] 187 10*3/uL Normal 150-400 [facility] Comment on above: Order Comment: Speci men Type: BLOOD SPECIMENOrdering Facility: [facility] Address: [address] [place] [address] Performed By: #### 5 7021-8 ####[facility]NCLIA [id number] [place] [address] [place] RBC (Bld) [#/Vol] 4.73 10*6/uL Normal 4.20-6.00 [facility] Comment on above: Order Comment: Speci men Type: BLOOD SPECIMENOrdering Facility: [facility] Address: [address] [place] [address] Performed By: #### 5 7021-8 ####[facility]NCLIA [id number] [place] [address] [place] WBC (Bld) [#/Vol] 4.75 10*3/uL Normal 3.70-11.00 [facility] Comment on above: Order Comment: Speci men Type: BLOOD SPECIMENOrdering Facility: [facility] Address: [address] [place] [address] Performed By: #### 5 7021-8 ####[facility] HOSPITALWNCLIA [id number] [place] [address] [place] Cancer Ag15-3 SerPl-aCncon 0 06-03-2024 Cancer Ag 15-3 Qn 19.7 U/mL Normal <26.0 [facility] Comment on above: Order Comment: Speci men Type: BLOOD SPECIMENOrdering Facility: [facility] Address: [address] [place] [address] Result Comment: The CA 15-3 test methodology used is the Electrochemiluminescence Immunoassay by [employer]. Results obtained with different methods or kits cannot be used interchangeably. Performed By: #### 2 4321-2 ####[facility] [id number] [address]#### 6875-9 ####[facility] LABORATORYCLIA [id number] [place] [id number] [facility] Cardiology Visit Reporton Cardiology Visit Report [facility] [address] [place] [address] OFFICE VISIT Date of Service: 06/03/24 MR#: [id number] Acct: [id number] Name: АНДРЕЙ NICKERSON Rep #: [id number] : 1960 Provider: AUDIE Haines Age/Sex: 63/M [...] (%) 97 Intake Visit Reasons: 6 M Manager Acute Required: No Is patient in pain?: No Allergies No Known Allergies Allergy (Verified 06/03/24 14:18) Medications ???Medication ???Instructions ???Recorded ???Confirmed ???Type albuterol sulfate 90 mcg/actuation 1 - 2 puff inhalation Q6H PRN IA N 07/24/19 06/03/24 History aerosol inhaler Wheezing BP cuff #1 ea 11/27/19 02/13/24 Rx pen needle, diabetic 32 gauge x #400 ea 02/12/20 02/13/24 Rx /32 (BD Ultra-Fine Cici Pen Needle) tamsulosin 0.4 mg capsule 0.4 mg PO QHS 04/22/20 06/03/24 Particle Code story propylene glycol 0.6 % eye drops [...] you fallen in the past year?: No [facility] Medical History Diabetes mellitus type 1 TIA (transient ischemic attack) Toxic metabolic encephalopathy (more content not included)... Normal [facility] Sirolimus Bld-mCncon 06-03-2 025 Sirolimus (Bld) [Mass/Vol] 5.3 ng/mL Normal 4.0-12.0 [facility] Comment on above: Order Comment: Speci amy Type: BLOOD SPECIMENOrdering Facility: [facility] Address: [address] [place] [address] 92460 Result Comment: The optimal therapeutic range may vary based on the indication for treatment, transplant type, time post transplant, simultaneous use of other immunosuppressive drugs, and clinical or institutional protocols. It is recommended to interpret the results in conjunction with this information and the patient's clinical context. This test was developed and its performance characteristics determined by [facility]'s Shamir Alfredo [facility] Pathology and Laboratory Medicine [place] ([facility]). It has not been cleared or approved by the FDA. -[facility] is regulated under CLIA as qualified to perform high-complexity testing. This test is used for clinical purposes. It should not be regarded as investigational or for research. Test performed by LC-MS/MS Performed By: #### 2 9247-4 ####[facility] LABCLIA [id number] [place] [address] [place] FUNDUS PHOTOS OU (BOTH EYES) on 05-23-2024 [facility] Radiology Study observation (narrative) [facility] CNOVon 05-12-2024 CNOV Office Visit (PODIWS ) -- АНДРЕЙ NICKERSON ([id number]) 1960 M Date Time Provider Department 05/12/24 2:30 PM TRINY PALMER PODIWS During your visit today, we recorded the following information about you: Delmy Beth, RN 05/12/2024 2:44 PM Signed Patient presents [...] (or decreased sensation in your feet) a refrigerator car icer should always cut your toenails. Be Careful [...] Go to your health care provider or refrigerator car icer to treat these conditions. Triny Palmer 05/12/2024 [...] PT pulse (more content not included)... Normal [facility] CNOVon 05-10-2024 CNOV Office Visit (UCWSTR ) -- АНДРЕЙ NICKERSON ([id number]) 1960 M Date Time Provider Department 05/10/24 1:45 PM NIKKY CHEN WSTR During your visit today, we recorded the following information about you: Temperature Pulse Respiration Blood pressure 97.6 degrees 73/minute 20/minute 136/76 Weight 116 kg Nikky Chen APRN.CNP 05/10/2024 2:21 PM Signed This note was created using [employer] Mouldingsriter. Subjective Андрей Nickerson is a 63 year [...] EVERYDAY AT BEDTIME - blood sugar diagnostic ([employer] ULTRA TEST) test strip Checking blood sugars 3-4 times daily - Insulin [place], Disposable, (BD ULTRAFINE III MINI PEN) 31 gauge x 3/16 use as directed up to four times daily, E11.9 - Blood-Glucose Sensor (DEXCOM G6 SENSOR) darleen Change Sensor every 14 days Patient reading blood sugar 12 times daily - Blood-Glucose Meter,Continuous (DEXCOM G4 OUTDOOR ADVENTURE INSTRUCTOR-SHARE KIT) misc [place] device, patient checks blood sugars 12 times daily - Blood-Glucose Transmitter (DEXCOM G6 TRANSMITTER) darleen 1 Each as directed. - Blood-Glucose Meter,Continuous (DEXCOM G6 OUTDOOR ADVENTURE INSTRUCTOR) misc 1 Each as directed. - insulin [...] diabetic ret (more content not included)... 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 HPL, taking statin therapy with lipitor 40 mg a day Cholesterol, Total Date Value Ref Range Status 12/10/2023 79 <200 mg/dL Final Comment: <200 mg/dL, Desirable 200-239 mg/dL, Borderline high >239 mg/dL, High Reference: 1. National Cholesterol Education Program ATP III Guideline At-A-Glance Quick Desk Reference: National Heart, Lung, and Blood [place]. National Institutes of Health. 2001: NIH Publication No. 01-3305. HDL Cholesterol Date Value Ref Range Status 12/10/2023 41 >39 mg/dL Final Comment: 40-59 mg/dL, Acceptable >59 mg/dL, High: Negative risk factor for coronary heart disease <40 mg/dL, Low: Positive risk factor for coronary heart disease Reference: 1. National Cholesterol Education Program ATP III Guideline At-A-Glance Quick Desk Reference: National Heart, Lung, and Blood [place]. National Institutes of Health. 2001: NIH Publication No. 01-3305. LDL Cholesterol Date Value [...] Desk Reference: National Heart, Lung, and Blood [place]. National Institutes of Health. 2001: [facility] Publication No. 01-3305. Glucose (mg/dL) Date Value [...] kidney disease) stage 3, GFR 30-59 ml/min ([facility]) [facility] Coronary artery disease 2006 s/p PCI. 3 stents total Diabetes type 1, uncontrolled 1971 nephropathy, retinopathy, dx age 10, Dr. Leon [facility] Heart attack (HCC) Hyperlipidemia Hypertension Lacunar stroke ([facility]) Macular edema [facility] MVP (mitral valve prolapse) Pancreatitis Proliferative diabetic retinopathy(362.02) [facility] Snoring Stroke ([facility]) 2017 Tobacco abuse PAST SURGICAL HISTORY Procedure [...] PAST S (more content not included)... Normal [facility] Basic metabolic 2000 panelon 02-21-2024 Anion gap [Moles/Vol] 10 mmol/L Normal 8-15 [facility] Comment on above: Order Comment: Speci men Type: BLOOD SPECIMENOrdering Facility: [facility] Address: [address] [place] [address] Performed By: #### 2 4321-2, 5640-0 ####[facility] LABCLIA [id number] [place] [address] [place] Calcium [Mass/Vol] 9.4 mg/dL Normal 8.5-10.2 [facility] Comment on above: Order Comment: Speci men Type: BLOOD SPECIMENOrdering Facility: [facility] Address: [address] [place] [address] Performed By: #### 2 4321-2, 4951-4 ####[facility] LABCLIA [id number] [address] [address] [place] Chloride [Moles/Vol] 107 mmol/L Normal 98-107 [facility] Comment on above: Order Comment: Speci amy Type: BLOOD SPECIMENOrdering Facility: [facility] Address: [address] [place] [address] Performed By: #### 2 4321-2, 6875-9 ####[facility] LABIA [id number] [place] [address] [place] CO2 [Moles/Vol] 20 mmol/L Low 22-30 [facility] Comment on above: Order Comment: Bari men Type: BLOOD SPECIMENOrdering Facility: [facility] Address: [facility] [address] [place] [address] Performed By: #### 2 4321-2, 6875-9 ####[facility] LABIA [id number] [place] [address] [place] Creatinine [Mass/Vol] 2.56 mg/dL High 0.73-1.22 [facility] Comment on above: Order Comment: Speci amy Type: BLOOD SPECIMENOrdering Facility: [facility] Address: [facility] [address] [place] [address] Performed By: #### 2 4321-2, 6875-9 ####[facility] LABIA [id number] [place] [address] [place] Creatinine and Glomerular filtration rate.predicted panel (S/P/Bld) 28 mL/min/1.73m??? Low >=60 [facility] Comment on above: Order Comment: Bari men Type: BLOOD SPECIMENOrdering Facility: [facility] Address: [facility] [address] [place] [address] Result Comment: Leah mated Glomerular Filtration Rate [...] GFR. Performed By: #### 2 4321-2, 6875-9 ####[facility] LABCLIA [id number] [address] [address] [place] Glucose [Mass/Vol] 155 mg/dL High 74-99 [facility] Comment on above: Order Comment: Praveen reyes Type: BLOOD SPECIMENOrdering Facility: [facility] Address: [address] [place] [address] Result Comment: The [place] Diabetes Association (ADA) provides guidance for cutoff [...] Standards of Medical Care in Diabetes 2016, [place] Diabetes Association. Diabetes Care. 2016.39(Suppl 1). Performed By: #### 2 4321-2, 6875-9 ####[facility] LABCLIA [id number] [address] [address] [place] Potassium [Moles/Vol] 4.6 mmol/L Normal 3.7-5.1 [facility] Comment on above: Order Comment: Praveen reyes Type: BLOOD SPECIMENOrdering Facility: [facility] Address: [address] [place] [address] Performed By: #### 2 4321-2, 6875-9 ####[facility] LABCLIA [id number] [address] [address] [place] Sodium [Moles/Vol] 137 mmol/L Normal 136-144 [facility] Comment on above: Order Comment: Speci men Type: BLOOD SPECIMENOrdering Facility: [facility] Address: [address] [place] [address] Performed By: #### 2 4321-2, 6875-9 ####[facility] LABCLIA [id number] [place] [address] [place] Urea nitrogen [Mass/Vol] 21 mg/dL Normal 9-24 [facility] Comment on above: Order Comment: Speci men Type: BLOOD SPECIMENOrdering Facility: [facility] Address: [address] [place] [address] Performed By: #### 2 4321-2, 6875-9 ####[facility] LABCLIA [id number] [place] [address] [place] CBC W Auto Differential pane l (Bld)on 02-21-2024 Basophils (Bld) [#/Vol] 0.04 10*3/uL Normal <0.11 [facility] Comment on above: Order Comment: Speci men Type: BLOOD SPECIMENOrdering Facility: [facility] Address: [address] [place] [address] Performed By: #### 5 7021-8 ####[facility] LABCLIA [id number] [place] [address] [place] Basophils/100 WBC (Bld) 0.8 % Normal [facility] Comment on above: Order Comment: Speci men Type: BLOOD SPECIMENOrdering Facility: [facility] Address: [address] [place] [address] Performed By: #### 5 7021-8 ####[facility] LABIA [id number] [place] [address] [place] Differential cell count method Nom (Bld) Auto Normal [facility] Comment on above: Order Comment: Speci men Type: BLOOD SPECIMENOrdering Facility: [facility] Address: [address] [place] [address] Performed By: #### 5 7021-8 ####[facility] LABCLIA [id number] [place] [address] [place] Eosinophils (Bld) [#/Vol] 0.06 10*3/uL Normal <0.46 [facility] Comment on above: Order Comment: Speci men Type: BLOOD SPECIMENOrdering Facility: [facility] Address: [address] [place] [address] Performed By: #### 5 7021-8 ####[facility] LABCLIA [id number] [place] [address] [place] SIMON Eosinophils/100 WBC (Bld) 1.1 % Normal [facility] Comment on above: Order Comment: Speci men Type: BLOOD SPECIMENOrdering Facility: [facility] Address: [address] [place] [address] Performed By: #### 5 7021-8 ####[facility] LABCLIA [id number] [place] [address] [place] Erythrocyte distribution width (RBC) [Ratio] 15.0 % Normal 11.5-15.0 [facility] Comment on above: Order Comment: Speci men Type: BLOOD SPECIMENOrdering Facility: [facility] Address: [address] [place] [address] Performed By: #### 5 7021-8 ####[facility] LABCLIA [id number] [place] [id number] [place] Hematocrit (Bld) [Volume fraction] 39.5 % Normal 39.0-51.0 [facility] Comment on above: Order Comment: Speci men Type: BLOOD SPECIMENOrdering Facility: [facility] Address: [address] [place] [address] Performed By: #### 5 7021-8 ####[facility] LABIA [id number] [place] [id number] [place] Hemoglobin (Bld) [Mass/Vol] 11.7 g/dL Low 13.0-17.0 [facility] Comment on above: Order Comment: Speci men Type: BLOOD SPECIMENOrdering Facility: [facility] Address: [address] [place] [address] Performed By: #### 5 7021-8 ####[facility] LABCLIA [id number] [place] [address] [place] Immature granulocytes (Bld) [#/Vol] 0.05 10*3/uL Normal <0.10 [facility] Comment on above: Order Comment: Speci men Type: BLOOD SPECIMENOrdering Facility: [facility] Address: [address] [place] [address] Performed By: #### 5 7021-8 ####[facility] LABCLIA [id number] [place] [address] [place] Immature granulocytes/100 WBC (Bld) 1.0 % Normal [facility] Comment on above: Order Comment: Speci men Type: BLOOD SPECIMENOrdering Facility: [facility] Address: [address] [place] [address] Performed By: #### 5 7021-8 ####[facility] LABCLIA [id number] [place] [address] [place] Lymphocytes (Bld) [#/Vol] 1.20 10*3/uL Normal 1.00-4.00 [facility] Comment on above: Order Comment: Speci men Type: BLOOD SPECIMENOrdering Facility: [facility] Address: [address] [place] [address] Performed By: #### 5 7021-8 ####[facility] LABCLIA [id number] [place] [address] [place] Lymphocytes/100 WBC (Bld) 23.0 % Normal [facility] Comment on above: Order Comment: Speci men Type: BLOOD SPECIMENOrdering Facility: [facility] Address: [address] [place] [address] Performed By: #### 5 7021-8 ####[facility] LABIA [id number] [address] STATES [facility] MCH (RBC) [Entitic mass] 26.9 pg Normal 26.0-34.0 [facility] Comment on above: Order Comment: Speci men Type: BLOOD SPECIMENOrdering Facility: [facility] Address: [address] [place] [address] Performed By: #### 5 7021-8 ####[facility] [id number] [address] [place] MCHC (RBC) [Mass/Vol] 29.6 g/dL Low 30.5-36.0 [facility] Comment on above: Order Comment: Speci men Type: BLOOD SPECIMENOrdering Facility: [facility] Address: [address] [place] [address] Performed By: #### 5 7021-8 ####[facility] [id number] [place] [address] [place] MCV (RBC) [Entitic vol] 90.8 fL Normal 80.0-100.0 [facility] Comment on above: Order Comment: Speci men Type: BLOOD SPECIMENOrdering Facility: [facility] Address: [address] [place] [address] Performed By: #### 5 7021-8 ####[facility] [id number] [place] [id number] [place] Monocytes (Bld) [#/Vol] 0.90 10*3/uL High <0.87 [facility] Comment on above: Order Comment: Speci men Type: BLOOD SPECIMENOrdering Facility: [facility] Address: [address] [place] [address] Performed By: #### 5 7021-8 ####[facility] LABIA [id number] [address] [address] [place] Monocytes/100 WBC (Bld) 17.2 % Normal [facility] Comment on above: Order Comment: Speci men Type: BLOOD SPECIMENOrdering Facility: [facility] Address: [address] [place] [address] Performed By: #### 5 7021-8 ####[facility] LABCLIA [id number] [place] [address] [place] Neutrophils (Bld) [#/Vol] 2.97 10*3/uL Normal 1.45-7.50 [facility] Comment on above: Order Comment: Speci men Type: BLOOD SPECIMENOrdering Facility: [facility] Address: [address] [place] [address] Performed By: #### 5 7021-8 ####[facility] LABCLIA [id number] [place] [address] [place] Neutrophils/100 WBC (Bld) 56.9 % Normal [facility] Comment on above: Order Comment: Speci men Type: BLOOD SPECIMENOrdering Facility: [facility] Address: [address] [place] [address] Performed By: #### 5 7021-8 ####[facility] LABCLIA [id number] [place] [id number] [place] Nucleated RBC (Bld) [#/Vol] 10*3/uL Normal <0.01 [facility] Comment on above: Order Comment: Speci men Type: BLOOD SPECIMENOrdering Facility: [facility] Address: [address] [place] [address] Performed By: #### 5 7021-8 ####[facility] LABCLIA [id number] [place] [address] [place] Nucleated RBC/100 WBC (Bld) [Ratio] 0.0 /100 WBC Normal [facility] Comment on above: Order Comment: Speci men Type: BLOOD SPECIMENOrdering Facility: [facility] Address: [address] [place] [address] Performed By: #### 5 7021-8 ####[facility] LABCLIA [id number] [place] [id number] [place] Platelet mean volume (Bld) [Entitic vol] 9.8 fL Normal 9.0-12.7 [facility] Comment on above: Order Comment: Speci men Type: BLOOD SPECIMENOrdering Facility: [facility] Address: [address] [place] [address] Performed By: #### 5 7021-8 ####[facility] LABCLIA [id number] [place] [address] [place] Platelets (Bld) [#/Vol] 210 10*3/uL Normal 150-400 [facility] Comment on above: Order Comment: Speci men Type: BLOOD SPECIMENOrdering Facility: [facility] Address: [address] [place] [address] Performed By: #### 5 7021-8 ####[facility] LABIA [id number] [place] [address] [place] RBC (Bld) [#/Vol] 4.35 10*6/uL Normal 4.20-6.00 [facility] Comment on above: Order Comment: Speci men Type: BLOOD SPECIMENOrdering Facility: [facility] Address: [address] [place] [address] Performed By: #### 5 7021-8 ####[facility] LABCLIA [id number] [place] [id number] [place] WBC (Bld) [#/Vol] 5.22 10*3/uL Normal 3.70-11.00 [facility] Comment on above: Order Comment: Speci men Type: BLOOD SPECIMENOrdering Facility: [facility] Address: [address] [place] [address] Performed By: #### 5 7021-8 ####[facility] LABCLIA [id number] [place] [id number] [place] Cancer Ag15-3 SerPl-aCncon 1 04-22-2023 Cancer Ag 15-3 Qn 17.6 U/mL Normal <26.0 [facility] Comment on above: Order Comment: Speci men Type: BLOOD SPECIMENOrdering Facility: [facility] Address: [address] [place] [address] Result Comment: The CA 15-3 test methodology used is the Electrochemiluminescence Immunoassay by [employer]. Results obtained with different methods or kits cannot be used interchangeably. Performed By: #### 2 4321-2, 6875-9 ####[facility] [id number] [place] [address] [place] Sirolimus Bld-mCncon 024 Sirolimus (Bld) [Mass/Vol] 6.4 ng/mL Normal 4.0-12.0 [facility] Comment on above: Order Comment: Speci men Type: BLOOD SPECIMENOrdering Facility: [facility] Address: [address] [place] [address] Result Comment: The optimal therapeutic range may vary based on the indication for treatment, transplant type, time post transplant, simultaneous use of other immunosuppressive drugs, and clinical or institutional protocols. It is recommended to interpret the results in conjunction with this information and the patient's clinical context. This test was developed and its performance characteristics determined by [facility]'s Shamir Alfredo [facility] [place] (RT-[facility]). It has not been cleared or approved by the FDA. RT[facility] is regulated under CLIA as qualified to perform high-complexity testing. This test is used for clinical purposes. It should not be regarded as investigational or for research. Test performed by LC-MS/MS Performed By: #### 2 9247-4 ####[facility] LABIA [id number] [place] [id number] [place] Endocrinology Visit Reporton 02-13-2024 Endocrinology Visit Report [facility] [address] [place] [address] OFFICE VISIT Date of Service: 02/13/24 MR#: [id number] Acct: [id number] Name: АНДРЕЙ NICKERSON Rep #: [id number] : 1960 Provider: ANJUM persaud Age/Sex: 63/M Location: [facility] Status: Signed Intake Vital Signs 08/15/23 13:24 12/04/23 14:28 02/13/24 13:05 Height 5 ft 10 in 5 ft 10 in 5 ft 10 in Weight: 263 lb BMI 37.7 BP 138/83 H Blood Pressure Location Lt brachial Position Sitting Pulse 74 Pulse Source Monitor Pulse Oximetry (%) 98 Oxygen Delivery Method room air Intake Visit Reasons: 6 M FU Chief Complaint: f/u diabetes Manager Acute Required: No Accompanied by: Self Is patient [...] disease) NORBERTO (obstructive sleep apnea) Atherosclerosis of [place] coronary artery of [place] heart without angina pectoris Essential hypertension Diabetic [...] cardiac catheterization (more content not included)... Normal [facility] PSA,Total - Annual Screenon 02-04-2024 PSA,TOT SCREEN 1.05 ng/mL Normal 0.00-4.00 [facility] Comment on above: Result Comment: This test was performed using the TPSA assay method for the [employer] chemistry system. Values obtained with different assay methods cannot be used interchangably. When changing PSA assays in the course of monitoring a patient, additional sequential testing should be carried out to confirm baseline values. Performed By: #### L 501.9910 #### [facility] Laboratory [address] [place], [address] CNTHERAPYon 01-28-2024 CNTHERAPY OT/PT/Speech Visit ( PTWS) -- NICKERSONАНДРЕЙ CRAVEN ([id number]) 1960 M Date Time Provider Department 01/28/24 4:30 PM REYES PEREA PTWS Date Time Provider Department [place] 01/28/2024 4:30 PM [id number], COLIN PTWS Mely Fuller Reason for Visit: Physical Therapy [503] PT [...] tablet by mouth once daily. - Gum Ggtddk-Dugcgk-EXoo-Alcohol (MASTISOL ADHESIVE) dpet 1 application as directed. - tamsulosin (FLOMAX) 0.4 mg TAKE 1 CAPSULE BY MOUTH EVERYDAY AT BEDTIME - blood sugar diagnostic (ONETOUCH ULTRA TEST) test strip Checking blood sugars 3-4 times daily - Insulin [place], Disposable, (BD ULTRAFINE III MINI PEN) 31 gauge x 3/16 use as directed up to four times daily, E11.9 - Blood-Glucose Sensor (DEXCOM G6 SENSOR) darleen Change Sensor every 14 days Patient reading blood sugar 12 times daily - Blood-Glucose Meter,Continuous (DEXCOM G4 OUTDOOR ADVENTURE INSTRUCTOR-SHARE KIT) misc One [place] device, patient checks blood sugars 12 times daily - Blood-Glucose Transmitter (DEXCOM G6 TRANSMITTER) darleen 1 Each as directed. - Blood-Glucose Meter,Continuous (DEXCOM G6 OUTDOOR ADVENTURE INSTRUCTOR) misc 1 Each as directed. - insulin [...] as of 07/25/2012: Insulin pump with Novolog Compensation Consultant: Therapy (PT/OT/Speech/Resp) ID: [id number] 01/28/2024 5:06 PM Author: REYES PEREA Signed by REYES PEREA PT on 01/28/2024 at 5:06 PM Document text: Program_ID:[id number] Access Code: [email or web address] URL: [email or web address] Date: 01-28-2024 Prepared By: Reyes Perea Program [...] - 2 sets - 8-10 reps Normal [facility] THERAPY NTon 01-28-2024 THERAPY NT HNO ID: [id number] Author: REYES PEREA PT Service: ? Author Type: Physical Therapist Type: Therapy (PT/OT/Speech/Resp) Filed: 01/28/2024 17:06 Note Text: Program_ID:[id number] Access Code: [email or web address] URL: [email or web address] Date: 01-28-2024 Prepared By: Reyes Perea Program [...] - 2 sets - 8-10 reps Normal [facility] [id number] 01-16-2024 [id number] HNO ID: [id number] Author: REYES PEREA, PT Service: ? Author Type: Physical Therapist Type: [id number] Filed: 01/16/2024 06:42 Note Text: [facility] Physical Therapy Plan of Care Certification Patient Name: Андрей Nickerson : 1960 [facility] #: [id number] Date: 01/15/2024 To: Handy Henderson, DO From Therapist: Reyes Perea PT RE: Patient Certification/ Recertification Your review, approval and electronic signature are required in order to comply with Payor: [employer] / Plan: [employer] OAP / Product Type: Open Access / [...] increase T-score by a minimum 5 points. [place] in home exercise program. Patient will decrease [...] Planned: 4 Planned Treatment Interventions: Therapeutic exercise (51354), Neuromuscular re-education (99045), Manual therapy (92806), Therapeutic activities (18019), Self-halfway management (06049), Gait Training (07450), Body Mechanics Training, Patient/Family/Caregiver Education PLAN FOR [...] have reviewed the treatment plan for Андрей Nickerson, [facility]# [id number] for the period of 01/15/24 -- 02/22/24, established on 01/15/2024. Signature certifies the need for therapy services. Normal [facility] 01-15-2024 CNPN Telephone (FAMPWS) -- АНДРЕЙ NICKERSON ([id number]) 1960 M Date Time Provider Department 01/15/24 HANDY HENDERSON [facility] During your visit today, we recorded the following information about you: Handy Henderson DO 01/15/2024 10:40 AM Signed Please [...] Signed Order placed for PHYSICAL THERAPY DO Maribel Simsshannan Radha 01/17/2024 11:43 AM Signed Patient has been [...] sciatica [M54.50, G89.29] Order(s):CONSULT TO PAIN MGT [317523] Order #: [id number]: 1 FUTURE CONSULT TO PHYSICAL THERAPY [9032] Order #: [id number]: 1 FUTURE Prescriptions as of 03/13/2024 - [...] tablet by mouth once daily. - Gum Nrnywv-Rjywmj-SSjj-Alcohol (MASTISOL ADHESIVE) dpet 1 application as directed. - tamsulosin (FLOMAX) 0.4 mg TAKE 1 CAPSULE BY MOUTH EVERYDAY AT BEDTIME - blood sugar diagnostic (ONETOUCH ULTRA TEST) test strip Checking blood sugars 3-4 times daily - Insulin [place], Disposable, (BD ULTRAFINE III MINI PEN) 31 gauge x 3/16 use as directed up to four times daily, E11.9 - Blood-Glucose Sensor (DEXCOM G6 SENSOR) darleen Change Sensor every 14 days Patient reading blood sugar 12 times daily - Blood-Glucose Meter,Continuous (DEXCOM G4 OUTDOOR ADVENTURE INSTRUCTOR-SHARE KIT) misc One [place] device, patient checks blood sugars 12 times daily - Blood-Glucose Transmitter (DEXCOM G6 TRANSMITTER) darleen 1 Each as directed. - Blood-Glucose Meter,Continuous (DEXCOM G6 OUTDOOR ADVENTURE INSTRUCTOR) misc 1 Each as directed. - insulin [...] retinopathy(362.01) (HC (more content not included)... Normal [facility] CNTHERAPYon 01-15-2024 CNTHERAPY OT/PT/Speech Visit ( PTWS) -- АНДРЕЙ NICKERSON ([id number]) 1960 M Date Time Provider Department 01/15/24 1:30 PM REYES PEREA PTWS Date Time Provider Department Center 01/15/2024 1:30 PM [id number], COLIN PTWS zhouwu Reason for Visit: PT Eval [747] Primary [...] tablet by mouth once daily. - Gum Cjehvv-Dkkfde-HThi-Alcohol (MASTISOL ADHESIVE) dpet 1 application as directed. - tamsulosin (FLOMAX) 0.4 mg TAKE 1 CAPSULE BY MOUTH EVERYDAY AT BEDTIME - blood sugar diagnostic (ONETOUCH ULTRA TEST) test strip Checking blood sugars 3-4 times daily - Insulin [place], Disposable, (BD ULTRAFINE III MINI PEN) 31 gauge x 3/16 use as directed up to four times daily, E11.9 - Blood-Glucose Sensor (DEXCOM G6 SENSOR) darleen Change Sensor every 14 days Patient reading blood sugar 12 times daily - Blood-Glucose Meter,Continuous (DEXCOM G4 OUTDOOR ADVENTURE INSTRUCTOR-SHARE KIT) misc One [place] device, patient checks blood sugars 12 times daily - Blood-Glucose Transmitter (DEXCOM G6 TRANSMITTER) darleen 1 Each as directed. - Blood-Glucose Meter,Continuous (DEXCOM G6 OUTDOOR ADVENTURE INSTRUCTOR) misc 1 Each as directed. - insulin [...] as of 07/25/2012: Insulin pump with Novolog Compensation Consultant: Therapy (PT/OT/Speech/Resp) ID: [id number] 01/15/2024 2:11 PM Author: REYES PEREA Signed by REYES PEREA PT on 01/15/2024 at 2:11 PM Document text: Program_ID:[id number] Access Code: [email or web address] URL: [email or web address] Date: 01-15-2024 Prepared By: Reyes Perea Program [...] - 2 sets - 10-15 reps Normal [facility] THERAPY NTon 01-15-2024 THERAPY NT HNO ID: [id number] Author: REYES PEREA PT Service: ? Author Type: Physical Therapist Type: Therapy (PT/OT/Speech/Resp) Filed: 01/15/2024 14:11 Note Text: Program_ID:[id number] Access Code: [email or web address] URL: [email or web address] Date: 01-15-2024 Prepared By: Reyes Perea Program [...] - 2 sets - 10-15 reps Normal [facility] CNPNon 12-13-2023 CNPN Telephone (FAMPWS) -- АНРДЕЙ NICKERSON ([id number]) 1960 M Date Time Provider Department 12/13/23 HANDY HENDERSON During your visit today, we recorded the [...] tablet by mouth once daily. - Gum Txvckf-Pvcpci-AUfa-Alcohol (MASTISOL ADHESIVE) dpet 1 application as directed. - tamsulosin (FLOMAX) 0.4 mg TAKE 1 CAPSULE BY MOUTH EVERYDAY AT BEDTIME - blood sugar diagnostic (ONETOUCH ULTRA TEST) test strip Checking blood sugars 3-4 times daily - Insulin [place], Disposable, (BD ULTRAFINE III MINI PEN) 31 gauge x 3/16 use as directed up to four times daily, E11.9 - Blood-Glucose Sensor (DEXCOM G6 SENSOR) darleen Change Sensor every 14 days Patient reading blood sugar 12 times daily - Blood-Glucose Meter,Continuous (DEXCOM G4 OUTDOOR ADVENTURE INSTRUCTOR-SHARE KIT) misc One [place] device, patient checks blood sugars 12 times daily - Blood-Glucose Transmitter (DEXCOM G6 TRANSMITTER) darleen 1 Each as directed. - Blood-Glucose Meter,Continuous (DEXCOM G6 OUTDOOR ADVENTURE INSTRUCTOR) misc 1 Each as directed. - insulin [...] eyes [H52.203 (more content not included)... Normal [facility] CNOVon 12-11-2023 CNOV Office Visit (FAMPWS ) -- АНДРЕЙ NICKERSON ([id number]) 1960 M Date Time Provider Department 12/11/23 3:20 PM HANDY HENDERSON FAMPWS During your visit today, we recorded the following information about you: Temperature Pulse Respiration Blood pressure 97 degrees 80/minute 16/minute 124/60 Weight 123.4 kg Handy Henderson 12/11/2023 4:47 PM Signed CC: Андрей Nickerson [...] kidney disease) stage 3, GFR 30-59 ml/min ([facility]) Comment: [facility] 2006: Coronary artery disease Comment: s/p PCI. 3 stents total 1971: Diabetes type 1, uncontrolled Comment: nephropathy, retinopathy, dx age 10, [facility] No date: Heart attack ([facility]) No date: Hyperlipidemia No date: Hypertension No date: Lacunar stroke ([facility]) No date: Macular edema Comment: [facility] No date: MVP (mitral valve prolapse) No date: Pancreatitis No date: Proliferative diabetic retinopathy(362.02) Comment: [facility] No date: Snoring 2017: Stroke ([facility]) No date: Tobacco abuse PAST SURGICAL HISTORY No date: AVASTIN (BEVACIZUMAB) 1.25MG INTRAVITREAL INJECTION OS (LEFT EYE) Comment: x5 (04/16/2015) Dr. Connelly 01/12/2022: CANALOPLASTY W/O STENT; Right Comment: Canaloplasty 360 degrees / Trabeculotomy 180 degrees 2005, 2008, 2012: CARDIAC CATH Comment: mid / [...] 1 tablet by mouth once daily. Gum Hmizhn-Lzbklq-BJdn-Alcohol (MASTISOL ADHESIVE) dpet 1 application as directed. tamsulosin (FLOMAX) 0.4 mg TAKE 1 CAPSULE BY MOUTH EVERYDAY AT BEDTIME blood sugar diagnostic ([employer] ULTRA TEST) test strip Checking blood sugars 3-4 times daily Insulin [place], Disposable, (BD ULTRAFINE III MINI PEN) 31 gauge x 3/16 use as directed up to four times daily, E11.9 Blood-Glucose Sensor (DEXCOM G6 SENSOR) darleen Change Sensor every 14 days Patient reading blood sugar 12 times daily Blood-Glucose Meter,Continuous (DEXCOM G4 OUTDOOR ADVENTURE INSTRUCTOR-SHARE KIT) misc One [place]a device, patient checks blood sugars 12 times daily Blood-Glucose Transmitter (DEXCOM G6 TRANSMITTER) darleen 1 Each as directed. Blood-Glucose Meter,Continuous (DEXCOM G6 OUTDOOR ADVENTURE INSTRUCTOR) misc 1 Each as directed. insulin detemir U-100 (LEVEMIR FLEXTOUCH U-100 INSULN) 100 unit/mL (3 mL) inpn (more content not included)... Normal [facility] XR LUMBAR 3V AP/LAT/L5-S1on 12-11-2023 XR LUMBAR [...] Sacroiliac joints are unremarkable. IMPRESSION: Mild spondylosis Consulting Hr Professional: [facility] Transcribe Date/Time: Dec 15 2023 4:32P Dictated by : TIAN HOOD MD This examination was interpreted and the report reviewed and electronically signed by: TIAN HOOD MD on Dec 15 2023 4:33PM EST [id number] Normal [facility] XR THORACIC 3V AP/LAT/SWIMME RSon 12-11-2023 XR [...] Thoracic spine degenerative changes as described above. Consulting Hr Professional: [facility]ICH[facility]DJavier Transcribe Date/Time: Dec 11 2023 5:01P Dictated by : FRANCOIS TATUM MD This examination was interpreted and the report reviewed and electronically signed by: FRANCOIS TATUM MD on Dec 11 2023 5:02PM EST [id number] Normal [facility] XR Thoracic spine AP and Lat eral and Swimmerson 12-11-2023 IMPRESSION: Thoracic spine degenerative changes as described above. Consulting Hr Professional: [facility] RICHMONDWimba Transcribe Date/Time: Dec 11 2023 5:01P Dictated [...] bony destructive process. DIVISION OF RADIOLOGY Provider, Lisa Jimbo huerta [place] - 12/11/2023 * * *Final Report* * [...] Thoracic spine degenerative changes as described above. Consulting Hr Professional: PSCB Transcribe Date/Time: Dec 11 2023 5:01P Dictated by : FRANCOIS TATUM MD This examination was interpreted and the report reviewed and electronically signed by: FRANCOIS TATUM MD on Dec 11 2023 5:02PM [facility] Radiology Study observation (narrative) [facility] XR Thoracic spine AP and Lat eral and SwimmersOrdered By: Ccf Provider on 12-11-2023 [facility] A1AT SerPl-mCncon 12-10-2023 Alpha 1 antitrypsin [Mass/Vol] 153 mg/dL Normal 90-200 [facility] Comment on above: Order Comment: Praveen reyes Type: BLOOD SPECIMENOrdering Facility: [facility] Address: [address] [place] [address] Performed By: #### 2 4321-2, 2731-8, 1825-9, 6875-9 ####[facility] LABCLIA [id number] [address] [address] [place] ALT SerPl-cCncon 12-10-2023 ALT [Catalytic activity/Vol] 28 U/L Normal 10-54 [facility] Comment on above: Order Comment: Praveen reyes Type: BLOOD SPECIMENOrdering Facility: [facility] Address: [address] [place] [address] Performed By: #### 2 571-8, 1751-7, 1742-6 ####[facility] LABCLIA [id number] [address] [place] [address] [place] AST SerPl-cCncon 12-10-2023 AST [Catalytic activity/Vol] 21 U/L Normal 14-40 [facility] Comment on above: Order Comment: Speci men Type: BLOOD SPECIMENOrdering Facility: [facility] Address: [address] [place] [address] Performed By: #### 1 920-8, 20229-8, 1974-2, 3-3, HDL1 ####[facility] LABCLIA [id number] [address] [address] [place] Albumin SerPl-mCncon 024 Albumin [Mass/Vol] 3.7 g/dL Low 3.9-4.9 [facility] Comment on above: Order Comment: Speci men Type: BLOOD SPECIMENOrdering Facility: [facility] Address: [address] [place] [address] Performed By: #### 2 571-8, 1751-7, 1742-6 ####[facility] LABIA [id number] [address] [address] [place] Basic metabolic 2000 panelon 12-10-2023 Anion gap [Moles/Vol] 9 mmol/L Normal 8-15 [facility] Comment on above: Order Comment: Speci men Type: BLOOD SPECIMENOrdering Facility: [facility] Address: [address] [place] [address] Performed By: #### 2 4321-2, 2731-8, 9, 6875-9 ####[facility] LABIA [id number] [address] [address] [place] Calcium [Mass/Vol] 9.2 mg/dL Normal 8.5-10.2 [facility] Comment on above: Order Comment: Speci men Type: BLOOD SPECIMENOrdering Facility: [facility] Address: [address] [place] [address] Performed By: #### 2 4321-2, 2730-8, 1824-12, 9 ####[facility] LABCLIA [id number] [address] [address] [place] Chloride [Moles/Vol] 110 mmol/L High 98-107 [facility] Comment on above: Order Comment: Speci men Type: BLOOD SPECIMENOrdering Facility: [facility] Address: [address] [place] [address] Performed By: #### 2 4321-2, 2730-8, 1824-12, 759 ####[facility] LABIA [id number] [place] [address] [place] CO2 [Moles/Vol] 20 mmol/L Low 22-30 [facility] Comment on above: Order Comment: Speci men Type: BLOOD SPECIMENOrdering Facility: [facility] Address: [address] [place] [address] Performed By: #### 2 4321-2, 2730-8, 1824-12, 759 ####[facility] LABIA [id number] [address] [address] [place] Creatinine [Mass/Vol] 2.40 mg/dL High 0.73-1.22 [facility] Comment on above: Order Comment: Speci men Type: BLOOD SPECIMENOrdering Facility: [facility] Address: [address] [place] [address] Performed By: #### 2 4321-2, 2730-8, 1824-12, 6875-9 ####[facility] LABIA [id number] [address] [address] [place] Creatinine and Glomerular filtration rate.predicted panel (S/P/Bld) 30 mL/min/1.73m??? Low >=60 [facility] Comment on above: Order Comment: Speci men Type: BLOOD SPECIMENOrdering Facility: [facility] Address: [address] [place] [address] Result Comment: Leah mated Glomerular Filtration Rate [...] By: #### 2 4321-2, 2730-8, 1824-12, 6874-12 ####[facility] LABIA [id number] [address] [address] [place] Glucose [Mass/Vol] 148 mg/dL High 74-99 [facility] Comment on above: Order Comment: Praeven reyes Type: BLOOD SPECIMENOrdering Facility: [facility] Address: [address] [place] [address] Result Comment: The [place] Diabetes Association (ADA) provides guidance for cutoff [...] Standards of Medical Care in Diabetes 2016, [place] Diabetes Association. Diabetes Care. 2016.39(Suppl 1). Performed By: #### 2 4321-2, 2730-8, 1824-12, 6874-12 ####[facility] [id number] [address] [address] [place] Potassium [Moles/Vol] 5.0 mmol/L Normal 3.7-5.1 [facility] Comment on above: Order Comment: Praveen reyes Type: BLOOD SPECIMENOrdering Facility: [facility] Address: [address] [place] [address] Performed By: #### 2 4321-2, 8, 1824-9, 6875-9 ####[facility] LABCLIA [id number] [address] [address] [place] Sodium [Moles/Vol] 139 mmol/L Normal 136-144 [facility] Comment on above: Order Comment: Speci men Type: BLOOD SPECIMENOrdering Facility: [facility] Address: [address] [place] [address] Performed By: #### 2 4321-2, 2730-8, 9, 6875-9 ####[facility] LABIA [id number] [place] [address] [place] Urea nitrogen [Mass/Vol] 24 mg/dL Normal 9-24 [facility] Comment on above: Order Comment: Speci men Type: BLOOD SPECIMENOrdering Facility: [facility] Address: [address] [place] [address] Performed By: #### 2 4321-2, 2730-8, 9, [address] ####[facility] LABIA [id number] [place] [address] [place] Bilirub SerPl-mCncon 024 Bilirubin [Mass/Vol] 0.4 mg/dL Normal 0.2-1.3 [facility] Comment on above: Order Comment: Speci men Type: BLOOD SPECIMENOrdering Facility: [facility] Address: [address] [place] [address] Performed By: #### 1 920-8, 27365-1, 1974-2, 2092-3, HDL1 ####[facility] LABIA [id number] [address] [address] [place] CBC W Auto Differential pane l (Bld)on 12-10-2023 Basophils (Bld) [#/Vol] 0.03 10*3/uL Normal <0.11 [facility] Comment on above: Order Comment: Speci men Type: BLOOD SPECIMENOrdering Facility: [facility] Address: [address] [place] [address] Performed By: #### 5 7021-8 ####[facility] LABCLIA [id number] [place] [address] [place] Basophils/100 WBC (Bld) 0.6 % Normal [facility] Comment on above: Order Comment: Speci men Type: BLOOD SPECIMENOrdering Facility: [facility] Address: [address] [place] [address] Performed By: #### 5 7021-8 ####[facility] LABCLIA [id number] [place] [address] [place] Differential cell count method Nom (Bld) Auto Normal [facility] Comment on above: Order Comment: Speci men Type: BLOOD SPECIMENOrdering Facility: [facility] Address: [address] [place] [address] Performed By: #### 5 7021-8 ####[facility] LABCLIA [id number] [place] [address] [place] Eosinophils (Bld) [#/Vol] 0.06 10*3/uL Normal <0.46 [facility] Comment on above: Order Comment: Speci men Type: BLOOD SPECIMENOrdering Facility: [facility] Address: [address] [place] [address] Performed By: #### 5 7021-8 ####[facility] LABCLIA [id number] [place] [address] [place] Eosinophils/100 WBC (Bld) 1.3 % Normal [facility] Comment on above: Order Comment: Speci men Type: BLOOD SPECIMENOrdering Facility: [facility] Address: [address] [place] [address] Performed By: #### 5 7021-8 ####[facility] LABCLIA [id number] [place] [address] [place] Erythrocyte distribution width (RBC) [Ratio] 15.0 % Normal 11.5-15.0 [facility] Comment on above: Order Comment: Speci men Type: BLOOD SPECIMENOrdering Facility: [facility] Address: [address] [place] [address] Performed By: #### 5 7021-8 ####[facility] LABCLIA [id number] [place] [address] [place] Hematocrit (Bld) [Volume fraction] 38.2 % Low 39.0-51.0 [facility] Comment on above: Order Comment: Speci men Type: BLOOD SPECIMENOrdering Facility: [facility] Address: [address] [place] [address] Performed By: #### 5 7021-8 ####[facility] LABIA [id number] [place] [address] [place] Hemoglobin (Bld) [Mass/Vol] 11.4 g/dL Low 13.0-17.0 [facility] Comment on above: Order Comment: Speci men Type: BLOOD SPECIMENOrdering Facility: [facility] Address: [address] [place] [address] Performed By: #### 5 7021-8 ####[facility] LABIA [id number] [place] [address] [place] Immature granulocytes (Bld) [#/Vol] 10*3/uL Normal <0.10 [facility] Comment on above: Order Comment: Speci men Type: BLOOD SPECIMENOrdering Facility: [facility] Address: [address] [place] [address] Performed By: #### 5 7021-8 ####[facility] LABIA [id number] [place] [id number] [place] Immature granulocytes/100 WBC (Bld) 0.4 % Normal [facility] Comment on above: Order Comment: Speci men Type: BLOOD SPECIMENOrdering Facility: [facility] Address: [address] [place] [address] Performed By: #### 5 7021-8 ####[facility] LABCLIA [id number] [place] [address] [place] Lymphocytes (Bld) [#/Vol] 1.10 10*3/uL Normal 1.00-4.00 [facility] Comment on above: Order Comment: Speci men Type: BLOOD SPECIMENOrdering Facility: [facility] Address: [address] [place] [address] Performed By: #### 5 7021-8 ####[facility] LABCLIA [id number] [place] [address] [place] Lymphocytes/100 WBC (Bld) 23.6 % Normal [facility] Comment on above: Order Comment: Speci men Type: BLOOD SPECIMENOrdering Facility: [facility] Address: [address] [place] [address] Performed By: #### 5 7021-8 ####[facility] LABIA [id number] [place] [id number] [place] MCH (RBC) [Entitic mass] 27.0 pg Normal 26.0-34.0 [facility] Comment on above: Order Comment: Speci men Type: BLOOD SPECIMENOrdering Facility: [facility] Address: [address] [place] [address] Performed By: #### 5 7021-8 ####[facility] LABCLIA [id number] [place] [id number] [place] MCHC (RBC) [Mass/Vol] 29.8 g/dL Low 30.5-36.0 [facility] Comment on above: Order Comment: Speci men Type: BLOOD SPECIMENOrdering Facility: [facility] Address: [address] [place] [address] Performed By: #### 5 7021-8 ####[facility] LABCLIA [id number] [place] [id number] [place] MCV (RBC) [Entitic vol] 90.5 fL Normal 80.0-100.0 [facility] Comment on above: Order Comment: Speci men Type: BLOOD SPECIMENOrdering Facility: [facility] Address: [address] [place] [address] Performed By: #### 5 7021-8 ####[facility] LABCLIA [id number] [place] [address] [place] Monocytes (Bld) [#/Vol] 0.80 10*3/uL Normal <0.87 [facility] Comment on above: Order Comment: Speci men Type: BLOOD SPECIMENOrdering Facility: [facility] Address: [address] [place] [address] Performed By: #### 5 7021-8 ####[facility] LABCLIA [id number] [place] [address] [place] Monocytes/100 WBC (Bld) 17.2 % Normal [facility] Comment on above: Order Comment: Speci men Type: BLOOD SPECIMENOrdering Facility: [facility] Address: [facility] [address] [place] [address] Performed By: #### 5 7021-8 ####[facility] LABCLIA [id number] [place] [address] [place] Neutrophils (Bld) [#/Vol] 2.65 10*3/uL Normal 1.45-7.50 [facility] Comment on above: Order Comment: Speci men Type: BLOOD SPECIMENOrdering Facility: [facility] Address: [address] [place] [address] Performed By: #### 5 7021-8 ####[facility] LABCLIA [id number] [place] [id number] [place] Neutrophils/100 WBC (Bld) 56.9 % Normal [facility] Comment on above: Order Comment: Speci men Type: BLOOD SPECIMENOrdering Facility: [facility] Address: [address] [place] [address] Performed By: #### 5 7021-8 ####[facility] LABCLIA [id number] [place] [address] [place] Nucleated RBC (Bld) [#/Vol] 10*3/uL Normal <0.01 [facility] Comment on above: Order Comment: Speci men Type: BLOOD SPECIMENOrdering Facility: [facility] Address: [address] [place] [address] Performed By: #### 5 7021-8 ####[facility] LABCLIA [id number] [place] [address] [place] Nucleated RBC/100 WBC (Bld) [Ratio] 0.0 /100 WBC Normal [facility] Comment on above: Order Comment: Speci men Type: BLOOD SPECIMENOrdering Facility: [facility] Address: [address] [place] [address] Performed By: #### 5 7021-8 ####[facility] LABCLIA [id number] [place] [address] [place] Platelet mean volume (Bld) [Entitic vol] 9.3 fL Normal 9.0-12.7 [facility] Comment on above: Order Comment: Speci men Type: BLOOD SPECIMENOrdering Facility: [facility] Address: [address] [place] [address] Performed By: #### 5 7021-8 ####[facility] LABCLIA [id number] [place] [id number] [place] Platelets (Bld) [#/Vol] 211 10*3/uL Normal 150-400 [facility] Comment on above: Order Comment: Speci men Type: BLOOD SPECIMENOrdering Facility: [facility] Address: [address] [place] [address] Performed By: #### 5 7021-8 ####[facility] LABCLIA [id number] [address] [address] [place] RBC (Bld) [#/Vol] 4.22 10*6/uL Normal 4.20-6.00 [facility] Comment on above: Order Comment: Speci men Type: BLOOD SPECIMENOrdering Facility: [facility] Address: [address] [place] [address] Performed By: #### 5 7021-8 ####[facility] [id number] [address] [address] [place] WBC (Bld) [#/Vol] 4.66 10*3/uL Normal 3.70-11.00 [facility] Comment on above: Order Comment: Speci men Type: BLOOD SPECIMENOrdering Facility: [facility] Address: [address] [place] [address] Performed By: #### 5 7021-8 ####[facility] [id number] [place] [id number] [place] Cancer Ag15-3 SerPl-aCncon 0 12-10-2023 Cancer Ag 15-3 Qn 14.8 U/mL Normal <26.0 [facility] Comment on above: Order Comment: Speci men Type: BLOOD SPECIMENOrdering Facility: [facility] Address: [address] [place] [address] Result Comment: The CA 15-3 test methodology used is the Electrochemiluminescence Immunoassay by [employer]. Results obtained with different methods or kits cannot be used interchangeably. Performed By: #### 2 4321-2, 2731-8, 1825-9, 6875-9 ####[facility] [id number] [address] [address] [place] Cholest SerPl-mCncon 024 Cholesterol [Mass/Vol] 79 mg/dL Normal <200 [facility] Comment on above: Order Comment: Speci men Type: BLOOD SPECIMENOrdering Facility: [facility] Address: [address] [place] [address] Result Comment: <200 mg/dL, Desirable 200-239 mg/dL, Borderline high >239 mg/dL, High Reference: 1. National Cholesterol Education Program ATP III Guideline At-A-Glance Quick Desk Reference: National Heart, Lung, and Blood [place]. National Institutes of Health. 2001: [facility] Publication No. 3305. Performed By: #### 1 920-8, , 1974-05, 2092-05, HDL1 ####[facility] LABIA [id number] [place] [id number] [place] HDL CHOLESTEROL BLDon 2023 Cholesterol in HDL [Mass/Vol] 41 mg/dL Normal >39 [facility] Comment on above: Order Comment: Speci men Type: BLOOD SPECIMENOrdering Facility: [facility] Address: [address] [place] [address] Result Comment: 40-5 9 mg/dL, Acceptable >59 mg/dL, High: Negative risk factor for coronary heart disease <40 mg/dL, Low: Positive risk factor for coronary heart disease Reference: 1. National Cholesterol Education Program ATP III Guideline At-A-Glance Quick Desk Reference: National Heart, Lung, and Blood [place]. National Institutes of Health. 2001: NIH Publication No. 3305. Performed By: #### 1 8, , 1974-05, 2092-05, HDL1 ####[facility] LABIA [id number] [place] [id number] [place] HbA1c (Bld)on 12-10-2023 Average glucose Estimated from glycated hemoglobin (Bld) [Mass/Vol] 123 mg/dL Normal [facility] Comment on above: Order Comment: Speci men Type: BLOOD SPECIMENOrdering Facility: [facility] Address: [facility]. [address] [place] [address] Result Comment: eAG: (Estimated average glucose) is a calculated value from HgbA1c and is patient support representative of the average blood glucose level in the last 2-3 month period. Performed By: #### 5 5454-3 ####[facility] LABCLIA [id number] [address] [address] [place] HbA1c (Bld) [Mass fraction] 5.9 % High 4.3-5.6 [facility] Comment on above: Order Comment: Praveen reyes Type: BLOOD SPECIMENOrdering Facility: [facility] Address: [address] [place] [address] Result Comment: Amer [place] Diabetes Association guidelines indicate that patients with HgbA1c in the range 5.7-6.4% are at increased risk for development of diabetes, and intervention by lifestyle modification may be beneficial. HgbA1c greater or equal to 6.5% is considered diagnostic of diabetes. Performed By: #### 5 5454-3 ####[facility] LABCLIA [id number] [place] [address] [place] Magnesium SerPl-mCncon 12-09 Magnesium [Mass/Vol] 2.2 mg/dL Normal 1.7-2.3 [facility] Comment on above: Order Comment: Praveen men Type: BLOOD SPECIMENOrdering Facility: [facility] Address: [address] [place] [address] Performed By: #### 1 920-8, 95981-5, 1974-2, 3-3, HDL1 ####[facility] LABIA [id number] [place] [id number] [place] PTH-Intact SerPl-mCncon 09-0 Parathyrin.intact [Mass/Vol] 244 pg/mL High 15-65 [facility] Comment on above: Order Comment: Speci men Type: BLOOD SPECIMENOrdering Facility: [facility] Address: [address] [place] [address] Performed By: #### 2 4321-2, 2731-8, 1825-9, 6875-9 ####[facility] LABIA [id number] [place] [id number] [place] Sirolimus Bld-mCncon 024 Sirolimus (Bld) [Mass/Vol] 6.6 ng/mL Normal 4.0-12.0 [facility] Comment on above: Order Comment: Praveen reyes Type: BLOOD SPECIMENOrdering Facility: [facility] Address: [address] [place] [id number] Result Comment: The optimal therapeutic range may vary based on the indication for treatment, transplant type, time post transplant, simultaneous use of other immunosuppressive drugs, and clinical or institutional protocols. It is recommended to interpret the results in conjunction with this information and the patient's clinical context. This test was developed and its performance characteristics determined by [facility]'s [facility] Pathology and Laboratory Medicine [place] ([facility]). It has not been cleared or approved by the FDA. [facility] is regulated under CLIA as qualified to perform high-complexity testing. This test is used for clinical purposes. It should not be regarded as investigational or for research. Test performed by LC-MS/MS Performed By: #### 2 9247-4 ####[facility] LABCLIA [id number] [place] [id number] [place] Trigl SerPl-[facility] Healthcare Serviceson Triglyceride [Mass/Vol] 68 mg/dL Normal <150 [facility] Comment on above: Order Comment: Praveen reyes Type: BLOOD SPECIMENOrdering Facility: [facility] Address: [address] [place] [address] Result Comment: <150 mg/dL, Normal 150-199 mg/dL, Borderline high 200-499 mg/dL, High >499 mg/dL, Very high Reference: 1. National Cholesterol Education Program ATP III Guideline At-A-Glance Quick Desk Reference: National Heart, Lung, and Blood [place]. National Institutes of Health. 2001: NIH Publication No. 01-3305. Performed By: #### 2 571-8, 1751-7, 1742-6 ####[facility] LABCLIA [id number] [place] [id number] [place] Triglyceride [Mass/Vol]on FASTING TIME 12 hrs Normal [facility] Comment on above: Order Comment: Speci men Type: BLOOD SPECIMENOrdering Facility: [facility] Address: [address], [place] [address] Performed By: #### 2 571-8, 1751-7, 1742-6 ####[facility] LABCLIA [id number] [facility] [id number] [address] [place] Cardiology Visit Reporton Cardiology Visit Report [facility] 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 Be Careful [...] Go to your health care provider or refrigerator car icer to treat these conditions. Triny Palmer 11/27/2023 2:11 PM Signed Last saw pcp: [...] PT pulses (more content not included)... Normal [facility] OCT OPTIC NERVE CIRRUS OU (B OTH EYES)on 11-12-2023 [facility] Radiology Study observation (narrative) [facility] CNOVon 11-07-2023 CNOV Office Visit (UCWSTR ) -- АНДРЕЙ NICKERSON ([id number]) 1960 M Date Time Provider Department 11/07/23 2:15 PM GLYNN LEON [facility] During your visit today, we recorded the [...] kidney disease) stage 3, GFR 30-59 ml/min ([facility]) Comment: [facility] 2006: Coronary artery disease Comment: s/p PCI. 3 stents total 1971: Diabetes type 1, uncontrolled Comment: nephropathy, retinopathy, dx age 10, Dr[facility] No date: Heart attack ([facility]) No date: Hyperlipidemia No date: Hypertension No date: Lacunar stroke ([facility]) No date: Macular edema Comment: [facility] No date: MVP (mitral valve prolapse) No date: Pancreatitis No date: Proliferative diabetic retinopathy(362.02) Comment: [facility] No date: Snoring 2017: Stroke ([facility]) No date: Tobacco abuse PAST SURGICAL HISTORY No date: AVASTIN (BEVACIZUMAB) 1.25MG INTRAVITREAL INJECTION OS (LEFT EYE) Comment: x5 (04/16/2015) Dr. Connelly 01/12/2022: CANALOPLASTY W/O STENT; Right Comment: Canaloplasty 360 degrees / Trabeculotomy 180 degrees 2005, 2008, 2011: CARDIAC CATH Comment: mid / distal LAD stents DEINSHA 10/08/2018: COLONOSCOPY FLX DX W/COLLJ SPEC WHEN [...] Checking blood sugars 3-4 times daily Insulin [place], Disposable, (BD ULTRAFINE III MINI PEN) 31 gauge x 3/16 use as directed up to four times daily, E11.9 Blood-Glucose Sensor (DEXCOM G6 SENSOR) darleen Change Sensor every 14 days Patient reading blood sugar 12 times daily Blood-Glucose Meter,Continuous (DEXCOM G4 OUTDOOR ADVENTURE INSTRUCTOR-SHARE KIT) misc [place] device, patient checks blood sugars 12 times daily Blood-Glucose Transmitter (DEXCOM G6 TRANSMITTER) darleen 1 Each as directed. Blood-Glucose Meter,Continuous (DEXCOM G6 OUTDOOR ADVENTURE INSTRUCTOR) misc 1 Each as directed. insulin detemir [...] (Patient not (more content not included)... Normal [facility] ALLOSCREEN RECIPIENT (POST T X PRA)on 11-06-2023 AB SPECIFICITY CLASS COMMENT Antibody Specificity testing performed by [employer] Method[employer]. cPRA calculation based on identification of HLA antibody specificities at MFI >2000 and/or presence of CREG antibodies. Normal [facility] Comment on above: Result Comment: Some of the reagents used for testing in the Clinical Histocompatibility Laboratory have yet to be approved by the FDA. Our certification by CLIA to perform high complexity tests allows us to use these reagents in the context of a stringent QC program, and obviates the need for FDA approval.Testing performed by the [facility] Clinical Histocompatibility Laboratory. [facility] number: [id number]. CLIA number: [id number], Director: Valentin Qureshi, PhD, F([facility]). Performed By: #### A LLOR #### [facility] (DEFAULT) [address] [address] ANTIBODY SPECIFICITY INTERPRETATION Detected Normal [facility] Comment on above: Performed By: #### A LLOR #### [facility] (DEFAULT) [address] [address] CLASS I SPECIFICITIES Not detected Normal [facility] Comment on above: Performed By: #### A LLOR #### [facility] (DEFAULT) [address] [address] CLASS II SPECIFICITIES Not detected Normal [facility] Comment on above: Performed By: #### A LLOR #### [facility] (DEFAULT) [address] [address] cPRA 0 % Normal 0 [facility] Comment on above: Performed By: #### A LLOR #### [facility] (DEFAULT) [address] [address] BK VIRUS DNA QN, PCR, PLASMA on 11-06-2023 Bk Viral Load, Plasma <500 Normal <500 [facility] Comment on above: Order Comment: This test was performed using a real time PCR assay. The dynamic range for this assay is 500-5,000,000 copies/mL. This test was developed and its performance characteristics determined by The Clinical Microbiology Laboratory at [facility]. It has not been cleared or approved by the FDA. The laboratory is regulated under CLIA as qualified to perform high-complexity testing. This test is used for clinical purposes. It should not be regarded as investigational or for research. Performed By: #### B KBP #### [facility] (DEFAULT) [address] [place] [address] URINALYSIS REFLEX TO CULTURE PERFORMABLEOrdered By: Kina Valdovinos on 11-06-2023 Appearance (U) Clear Clear [facility] Bacteria LM Ql (Urine sed) ABSENT ABSENT [facility] Color (U) Yellow Yellow [facility] Epithelial cells.squamous LM Ql (Urine sed) 0-2/hpf 0-2/hpf, 3-5/hpf = 1+ [facility] Glucose Test strip (U) [Mass/Vol] 100 mg/dL Abnormal Negative [facility] Interpretation and review of laboratory results Abnormal [facility] Ketones (U) [Mass/Vol] Negative Negative [facility] Leukocyte esterase Test strip Ql (U) Trace Abnormal Negative [facility] Nitrite Ql (U) Negative Negative [facility] pH (U) 6.0 [pH] 5.0 - 7.0 [facility] Protein (U) [Mass/Vol] 100 mg/dL Abnormal Negative [facility] RBC (U) [#/Vol] Small Abnormal Negative [facility] RBC LM.HPF (Urine sed) [#/Area] 0-2 [facility] Specific gravity (U) [Rel density] 1.014 1.001 - 1.035 [facility] Urobilinogen (U) [Mass/Vol] 0.2 E.U./dL 0.2 E.U/dL, 1.0 E.U/dL U [facility] WBC LM.HPF (Urine sed) [#/Area] 6 - 10 Abnormal [facility] URINALYSIS REFLEX TO CULTURE PERFORMABLEon 11-06-2023 Appearance (U) Clear Normal Clear [facility] Comment on above: Performed By: #### U [id number] #### [facility] (DEFAULT) [address] [place] [address] Bacteria ABSENT Normal ABSENT [facility] Comment on above: Performed By: #### U [id number] #### [facility] (DEFAULT) [address] [place] [address] Blood Urine Small Abnormal Negative [facility] Comment on above: Performed By: #### U [id number] #### [facility] (DEFAULT) [address] [place] [address] Color (U) Yellow Normal Yellow [facility] Comment on above: Performed By: #### U [id number] #### [facility] (DEFAULT) [address] [place] [address] Glucose Ql (U) 100 mg/dL Abnormal Negative [facility] Comment on above: Performed By: #### U [id number] #### [facility] (DEFAULT) [address] [place] [address] Ketones Ql (U) Negative Normal Negative [facility] Comment on above: Performed By: #### U [id number] #### [facility] (DEFAULT) [address] [place] [address] Leukocyte esterase Test strip Ql (U) Trace Abnormal Negative [facility] Comment on above: Performed By: #### U [id number] #### [facility] (DEFAULT) [address] [place] [address] Nitrites Urine Negative Normal Negative [facility] Comment on above: Performed By: #### U [id number] #### [facility] (DEFAULT) [address] [place] [address] pH (U) 6.0 [pH] Normal 5.0-7.0 [facility] Comment on above: Performed By: #### U [id number] #### [facility] (DEFAULT) [address] [place] [address] Protein Urine 100 mg/dL Abnormal Negative [facility] Comment on above: Performed By: #### U [id number] #### [facility] (DEFAULT) [address] [place] [address] RBC Urine 0-2 Normal 0-2 [facility] Comment on above: Performed By: #### U [id number] #### [facility] (DEFAULT) [address] [place] [address] Specific [place] Urine 1.014 Normal 1.001 -1.03 5 [facility] Comment on above: Performed By: #### U [id number] #### [facility] (DEFAULT) [address] [place] [address] Squamous/Epithelial Cells 0-2/hpf Normal 0-2/hpf, 3-5/hpf = 1+ [facility] Comment on above: Performed By: #### U [id number] #### [facility] (DEFAULT) [address] [place] [address] Urobilinogen Urine 0.2 E.U./dL Normal 0.2 E.U/dL, 1.0 E.U/dL [facility] Comment on above: Performed By: #### U [id number] #### [facility] (DEFAULT) [address] [place] [address] WBC Urine 6 - 10 Abnormal 0 - 5 [facility] Comment on above: Performed By: #### U [id number] #### [facility] (DEFAULT) [address] [place] [address] URINE PROTEIN/CREA RATIO, RA Springer 11-06-2023 Creatinine (24H U) [Mass/Vol] 64.09 mg/dL [facility] Protein Unsp time (U) [Mass/Vol] 119 mg/dL [facility] Protein/Creatinine (U) [Mass ratio] 1.857 mg/mg [facility] Creatinine (U) [Mass/Vol] 64.09 mg/dL Normal [facility] Comment on above: Performed By: #### U PCR #### [facility] (DEFAULT) [address] [place] [address] Prot/Creat Ratio 1.857 mg/mg Normal [facility] Comment on above: Performed By: #### U PCR #### [facility] (DEFAULT) [address] [place] [address] Protein Ql (U) 119 mg/dL Normal [facility] Comment on above: Performed By: #### U PCR #### [facility] (DEFAULT) [address] [place] [address] BUN SerPl-mCncon 09-28-2023 Urea nitrogen [Mass/Vol] 20 mg/dL Normal 9-24 [facility] Comment on above: Order Comment: Speci men Type: BLOOD SPECIMENOrdering Facility: [facility] Address: [facility] [place] [address] Performed By: #### 3 094-0, K1, 38152-1, 2777-1, CRET1 ####[facility] [id number] [place] [address] [place] CBC W Auto Differential pane l (Bld)on 09-28-2023 Basophils (Bld) [#/Vol] 0.03 10*3/uL Normal <0.11 [facility] Comment on above: Order Comment: Speci men Type: BLOOD SPECIMENOrdering Facility: [facility] Address: [address] [place] [address] Performed By: #### 5 7021-8 ####[facility] [id number] [place] [address] [place] Basophils/100 WBC (Bld) 0.6 % Normal [facility] Comment on above: Order Comment: Speci men Type: BLOOD SPECIMENOrdering Facility: [facility] Address: [facility] [place] [address] Performed By: #### 5 7021-8 ####[facility] LABCLIA [id number] [place] [address] [place] Differential cell count method Nom (Bld) Auto Normal [facility] Comment on above: Order Comment: Speci men Type: BLOOD SPECIMENOrdering Facility: [facility] Address: [address] [place] [address] Performed By: #### 5 7021-8 ####[facility] LABCLIA [id number] [place] [address] [place] Eosinophils (Bld) [#/Vol] 0.06 10*3/uL Normal <0.46 [facility] Comment on above: Order Comment: Speci men Type: BLOOD SPECIMENOrdering Facility: [facility] Address: [address] [place] [address] Performed By: #### 5 7021-8 ####[facility] LABCLIA [id number] [place] [address] [place] Eosinophils/100 WBC (Bld) 1.3 % Normal [facility] Comment on above: Order Comment: Speci men Type: BLOOD SPECIMENOrdering Facility: [facility] Address: [address] [place] [address] Performed By: #### 5 7021-8 ####[facility] LABIA [id number] [place] [address] [place] Erythrocyte distribution width (RBC) [Ratio] 14.1 % Normal 11.5-15.0 [facility] Comment on above: Order Comment: Speci men Type: BLOOD SPECIMENOrdering Facility: [facility] Address: [address] [place] [address] Performed By: #### 5 7021-8 ####[facility] LABCLIA [id number] [place] [id number] [place] Hematocrit (Bld) [Volume fraction] 37.6 % Low 39.0-51.0 [facility] Comment on above: Order Comment: Speci men Type: BLOOD SPECIMENOrdering Facility: [facility] Address: [address] [place] [address] Performed By: #### 5 7021-8 ####[facility] LABCLIA [id number] [address] [address] [place] Hemoglobin (Bld) [Mass/Vol] 11.4 g/dL Low 13.0-17.0 [facility] Comment on above: Order Comment: Speci men Type: BLOOD SPECIMENOrdering Facility: [facility] Address: [address] [place] [address] Performed By: #### 5 7021-8 ####[facility] LABCLIA [id number] [place] [address] [place] Immature granulocytes (Bld) [#/Vol] 0.03 10*3/uL Normal <0.10 [facility] Comment on above: Order Comment: Speci men Type: BLOOD SPECIMENOrdering Facility: [facility] Address: [address] [place] [address] Performed By: #### 5 7021-8 ####[facility] LABIA [id number] [place] [address] [place] Immature granulocytes/100 WBC (Bld) 0.6 % Normal [facility] Comment on above: Order Comment: Speci men Type: BLOOD SPECIMENOrdering Facility: [facility] Address: [address] [place] [address] Performed By: #### 5 7021-8 ####[facility] LABIA [id number] [place] [address] [place] Lymphocytes (Bld) [#/Vol] 1.13 10*3/uL Normal 1.00-4.00 [facility] Comment on above: Order Comment: Speci men Type: BLOOD SPECIMENOrdering Facility: [facility] Address: [address] [place] [address] Performed By: #### 5 7021-8 ####[facility] LABIA [id number] [place] [address] [place] Lymphocytes/100 WBC (Bld) 23.8 % Normal [facility] Comment on above: Order Comment: Speci men Type: BLOOD SPECIMENOrdering Facility: [facility] Address: [address] [place] [address] Performed By: #### 5 7021-8 ####[facility] LABIA [id number] [place] [address] [place] MCH (RBC) [Entitic mass] 26.8 pg Normal 26.0-34.0 [facility] Comment on above: Order Comment: Speci men Type: BLOOD SPECIMENOrdering Facility: [facility] Address: [address] [place] [address] Performed By: #### 5 7021-8 ####[facility] LABIA [id number] [place] [address] [place] MCHC (RBC) [Mass/Vol] 30.3 g/dL Low 30.5-36.0 [facility] Comment on above: Order Comment: Speci men Type: BLOOD SPECIMENOrdering Facility: [facility] Address: [address] [place] [id number] Performed By: #### 5 7021-8 ####[facility] LABIA [id number] [place] [address] [place] MCV (RBC) [Entitic vol] 88.5 fL Normal 80.0-100.0 [facility] Comment on above: Order Comment: Speci men Type: BLOOD SPECIMENOrdering Facility: [facility] Address: [address] [place] [address] Performed By: #### 5 7021-8 ####[facility] LABIA [id number] [address] [address] [place] Monocytes (Bld) [#/Vol] 0.77 10*3/uL Normal <0.87 [facility] Comment on above: Order Comment: Speci men Type: BLOOD SPECIMENOrdering Facility: [facility] Address: [address] [place] [address] Performed By: #### 5 7021-8 ####[facility] LABCLIA [id number] [place] [id number] [place] Monocytes/100 WBC (Bld) 16.2 % Normal [facility] Comment on above: Order Comment: Speci men Type: BLOOD SPECIMENOrdering Facility: [facility] Address: [address] [place] [address] Performed By: #### 5 7021-8 ####[facility] LABCLIA [id number] [place] [id number] [place] Neutrophils (Bld) [#/Vol] 2.73 10*3/uL Normal 1.45-7.50 [facility] Comment on above: Order Comment: Speci men Type: BLOOD SPECIMENOrdering Facility: [facility] Address: [address] [place], [place] [address] Performed By: #### 5 7021-8 ####[facility] LABCLIA [id number] [place] [id number] [place] Neutrophils/100 WBC (Bld) 57.5 % Normal [facility] Comment on above: Order Comment: Speci men Type: BLOOD SPECIMENOrdering Facility: [facility] Address: [address] [place] [address] Performed By: #### 5 7021-8 ####[facility] LABCLIA [id number] [place] [id number] [place] Nucleated RBC (Bld) [#/Vol] 10*3/uL Normal <0.01 [facility] Comment on above: Order Comment: Speci men Type: BLOOD SPECIMENOrdering Facility: [facility] Address: [address] [place] [address] Performed By: #### 5 7021-8 ####[facility] LABCLIA [id number] [address] [address] [place] Nucleated RBC/100 WBC (Bld) [Ratio] 0.0 /100 WBC Normal [facility] Comment on above: Order Comment: Speci men Type: BLOOD SPECIMENOrdering Facility: [facility] Address: [address] [place] [address] Performed By: #### 5 7021-8 ####[facility] LABCLIA [id number] [place] [id number] [place] Platelet mean volume (Bld) [Entitic vol] 9.6 fL Normal 9.0-12.7 [facility] Comment on above: Order Comment: Speci men Type: BLOOD SPECIMENOrdering Facility: [facility] Address: [address] [place] [address] Performed By: #### 5 7021-8 ####[facility] LABCLIA [id number] [place] [id number] [place] Platelets (Bld) [#/Vol] 243 10*3/uL Normal 150-400 [facility] Comment on above: Order Comment: Speci men Type: BLOOD SPECIMENOrdering Facility: [facility] Address: [address] [place] [address] Performed By: #### 5 7021-8 ####[facility] LABCLIA [id number] [address] [address] [place] RBC (Bld) [#/Vol] 4.25 10*6/uL Normal 4.20-6.00 [facility] Comment on above: Order Comment: Speci men Type: BLOOD SPECIMENOrdering Facility: [facility] Address: [address] [place] [address] Performed By: #### 5 7021-8 ####[facility] LABCLIA [id number] [address] [address] [place] WBC (Bld) [#/Vol] 4.75 10*3/uL Normal 3.70-11.00 [facility] Comment on above: Order Comment: Speci men Type: BLOOD SPECIMENOrdering Facility: [facility] Address: [facility] [address] [place] [address] Performed By: #### 5 7021-8 ####[facility] LABIA [id number] [place] [id number] [place] CO2 SerPl-sCncon 09-28-2023 CO2 [Moles/Vol] 19 mmol/L Low 22-30 [facility] Comment on above: Order Comment: Speci men Type: BLOOD SPECIMENOrdering Facility: [facility] Address: [address] [place] [address] Performed By: #### 1 7861-6, 2075-0, 2951-2, 2027-12 ####[facility] [id number] [place] [id number] [place] CREATININE BLDon 09-28-2023 Creatinine [Mass/Vol] 2.66 mg/dL High 0.73-1.22 [facility] Comment on above: Order Comment: Speci men Type: BLOOD SPECIMENOrdering Facility: [facility] Address: [facility] [place] [address] Performed By: #### 3 094-0, K1, 65719-5, 2777-1, CRET1 ####[facility] [id number] [address] [address] [place] Creatinine and Glomerular filtration rate.predicted panel (S/P/Bld) 26 mL/min/1.73m??? Low >=60 [facility] Comment on above: Order Comment: Speci men Type: BLOOD SPECIMENOrdering Facility: [facility] Address: [facility]. [address] [place] [address] Result Comment: Leah mated Glomerular Filtration Rate [...] GFR. Performed By: #### 3 094-0, K1, 29934-6, 2777-1, CRET1 ####[facility] LABIA [id number] [address] [address] [place] Calcium SerPl-mCncon 024 Calcium [Mass/Vol] 9.0 mg/dL Normal 8.5-10.2 [facility] Comment on above: Order Comment: Praveen reyes Type: BLOOD SPECIMENOrdering Facility: [facility] Address: [address] [place] [address] Performed By: #### 1 7861-6, 2074-0, 2950-, 2027-12 ####[facility] LABIA [id number] [address] [address] [place] Chloride SerPl-sCncon 2023 Chloride [Moles/Vol] 108 mmol/L High 98-107 [facility] Comment on above: Order Comment: Praveen reyes Type: BLOOD SPECIMENOrdering Facility: [facility] Address: [address] [place] [address] Performed By: #### 1 7861-6, 2074-0, 2950-05, 2027-12 ####[facility] [id number] [address] [address] [place] Glucose p fast SerPl-mCncon 09-28-2023 Glucose post fast [Mass/Vol] 133 mg/dL High 74-99 [facility] Comment on above: Order Comment: Praveen reyes Type: BLOOD SPECIMENOrdering Facility: [facility] Address: [address] [place] [address] Result Comment: [place] Diabetes Association guidelines state that a diabetes mellitus diagnosis is preliminarily made when the fasting plasma glucose meets or exceeds 126 mg/dL. In the absence of unequivocal hyperglycemia, results should be confirmed with repeat testing. Patients are at increased risk for diabetes mellitus (prediabetes) when the fasting glucose is 100 to 125 mg/dL. Performed By: #### 1 558-6 ####[facility] LABCLIA [id number] [address] [address] [place] Magnesium SerPl-mCncon 09-27 Magnesium [Mass/Vol] 2.2 mg/dL Normal 1.7-2.3 [facility] Comment on above: Order Comment: Speci men Type: BLOOD SPECIMENOrdering Facility: [facility] Address: [address] [place] [address] Performed By: #### 3 094-0, K1, , 2776-04, CRET1 ####[facility] LABCLIA [id number] [place] [id number] [place] POTASSIUMon 09-28-2023 Potassium [Moles/Vol] 4.4 mmol/L Normal 3.7-5.1 [facility] Comment on above: Order Comment: Praveen reyes Type: BLOOD SPECIMENOrdering Facility: [facility] Address: [address] [place] [address] Performed By: #### 3 094-0, K1, , 2776-04, CRET1 ####[facility] LABCLIA [id number] [place] [id number] [place] Phosphate SerPl-mCncon 09-27 Phosphate [Mass/Vol] 2.4 mg/dL Low 2.7-4.8 [facility] Comment on above: Order Comment: Praveen reyes Type: BLOOD SPECIMENOrdering Facility: [facility] Address: [address] [place] [address] Performed By: #### 3 094-0, K1, , 2776-04, CRET1 ####[facility] LABCLIA [id number] [place] [id number] [place] Sirolimus Bld-mCncon 024 Sirolimus (Bld) [Mass/Vol] 6.9 ng/mL Normal 4.0-12.0 [facility] Comment on above: Order Comment: Praveen reyes Type: BLOOD SPECIMENOrdering Facility: [facility] Address: [address] [place], [place] [id number] Result Comment: The optimal therapeutic range may vary based on the indication for treatment, transplant type, time post transplant, simultaneous use of other immunosuppressive drugs, and clinical or institutional protocols. It is recommended to interpret the results in conjunction with this information and the patient's clinical context. This test was developed and its performance characteristics determined by [facility]'s Shamir Sayda [facility] Pathology and Laboratory Medicine [place] ([facility]). It has not been cleared or approved by the FDA. [facility] is regulated under CLIA as qualified to perform high-complexity testing. This test is used for clinical purposes. It should not be regarded as investigational or for research. Test performed by LC-MS/MS Performed By: #### 2 9247-4 ####[facility] [id number] [place] [address] [place] Sodium SerPl-sCncon 09-28-19 24 Sodium [Moles/Vol] 138 mmol/L Normal 136-144 [facility] Comment on above: Order Comment: Bari amy Type: BLOOD SPECIMENOrdering Facility: [facility] Address: [address] [place] [address] Performed By: #### 1 7861-6, 2075-0, 2951-2, 2027-12 ####[facility] LABIA [id number] [place] [id number] [place] FUNDUS PHOTOS OU (BOTH EYES) on 09-11-2023 [facility] Radiology Study observation (narrative) [facility] VISUAL FIELD 24-2 OU (BOTH E YES)on 09-11-2023 [facility] Radiology Study observation (narrative) [facility] Basophil percentageOrdered B y: Nicolas Lawrence on 06-21-2023 Chloride [Moles/Vol] 111 mmol/L 98-107 [facility] Glucose [Mass/Vol] 195 mg/dL 74-106 [facility] Comment on above: Fasting Glucose resu lt greater than or equal to 126 mg/dL suggests DIABETES MELLITUS per A.D.A. criteria. Potassium [Moles/Vol] 4.0 mmol/L 3.5-5.1 [facility] Sodium [Moles/Vol] 139 mmol/L 136-145 [facility] Hemoglobin (Bld) [Mass/Vol] 11.3 g/dL 13.0-16.5 [facility] WBC (Bld) [#/Vol] 4.6 10*3/uL 4.4-11.0 [facility] Determination of erythrocyte mean corpuscular volume (MCV)Ordered By: Nicolas Lawrence on 06-21-2023 MCV (RBC) [Entitic vol] 89.0 fL 80-94 [facility] Erythrocyte distribution wid th ratioOrdered By: Nicolas Lawrence on 06-21-2023 Erythrocyte distribution width (RBC) [Ratio] 14.6 % 11.6-14.6 [facility] Erythrocyte distribution wid th standard deviationOrdered By: Nicolastika Lawrence on 06-21-2023 Erythrocyte distribution width (RBC) [Entitic vol] 47.2 fL 35.1-43.9 [facility] Hematocrit Auto (Bld) [Volum e fraction]Ordered By: Nicolas Lawrence on 06-21-2023 Hematocrit (Bld) [Volume fraction] 37.1 % 40-54 [facility] Laboratory - Chemistry and C hemistry - challengeOrdered By: Nicolas Lawrence on 06-21-2023 CO2 [Moles/Vol] 24.0 mmol/L 21.0-32.0 [facility] Urea nitrogen/Creatinine [Mass ratio] 8.8 mg/mg 10-20 [facility] Laboratory - Hematology and Cell countsOrdered By: Nicolas Lawrence on 06-21-2023 MCH (RBC) [Entitic mass] 27.1 pg 27.0-32.0 [facility] MCHC (RBC) [Mass/Vol] 30.5 g/dL 32-36 [facility] Platelet mean volume (Bld) [Entitic vol] 10.1 fL 6.2-12.0 [facility] Platelets (Bld) [#/Vol] 220 10*3/uL 150-450 [facility] No Panel InformationOrdered By: Nicolas Lawrence on 06-21-2023 Estimated Creatinine Clearance Calc 41.88 ml/min [facility] Estimated GFR (MDRD) Amer 34 mL/min >60 [facility] Comment on above: GFR Calc Estimated GFR (MDRD) Non-Af Amer 28 mL/min >60 [facility] Comment on above: Non- GFR Calc RBC Auto (Bld) [#/Vol]Ordere d By: Nicolas Lawrence on 06-21-2023 RBC (Bld) [#/Vol] 4.17 10*6/uL 4.6-6.2 [facility] Serum or plasma calcium caity urement (mass/volume)Ordered By: Nicolas Lawrence on 06-21-2023 Calcium [Mass/Vol] 9.1 mg/dL 8.5-10.1 [facility] Serum or plasma creatinine m easurement (mass/volume)Ordered By: Nicolas Lawrence on 06-21-2023 Creatinine [Mass/Vol] 2.51 mg/dL 0.70-1.30 [facility] Comment on above: The validity of the calculated GFR & GFRAA in patients over 70 years has not been determined. Clinical correlation is essential. Serum or plasma urea nitroge n measurement (mass/volume)Ordered By: Nicolas Lawrence on 06-21-2023 Urea nitrogen [Mass/Vol] 22 mg/dL 7-18 [facility] Thin prep Papanicolaou smear with manual screeningOrdered By: Nicolas Lawrence on 06-21-2023 Thin prep Papanicolaou smear with manual screening 4 5-15 [facility] Absolute lymphocyte countOrd ered By: Gabi Lieberman on 05-07-2023 Lymphocytes Auto (Unsp spec) [#/Vol] 1.03 10*3/uL 0.83-4.51 [facility] Automated lymphocyte count a s percentage of total leukocytesOrdered By: Gabi Lieberman on 05-07-2023 Lymphocytes/100 WBC Auto (Unsp spec) 25.3 % 19-41 [facility] Basophil percentageOrdered B y: Gabi Lieberman on 05-07-2023 Basophils/100 WBC (Bld) 0.5 % 0-1 [facility] Chloride [Moles/Vol] 111 mmol/L 98-107 [facility] Eosinophils/100 WBC (Bld) 1.5 % 0-5 [facility] Glucose [Mass/Vol] 187 mg/dL 74-106 [facility] Comment on above: Fasting Glucose resu lt greater than or equal to 126 mg/dL suggests DIABETES MELLITUS per A.D.A. criteria. Hemoglobin (Bld) [Mass/Vol] 11.1 g/dL 13.0-16.5 [facility] Monocytes/100 WBC (Bld) 17.7 % 0-10 [facility] Neutrophils (Bld) [#/Vol] 2.2 10*3/uL 2.0-7.7 [facility] Neutrophils/100 WBC (Bld) 54.3 % 47-70 [facility] Potassium [Moles/Vol] 4.1 mmol/L 3.5-5.1 [facility] Sodium [Moles/Vol] 137 mmol/L 136-145 [facility] WBC (Bld) [#/Vol] 4.1 10*3/uL 4.4-11.0 [facility] Determination of erythrocyte mean corpuscular volume (MCV)Ordered By: Gabi Lieberman on 05-07-2023 MCV (RBC) [Entitic vol] 92.4 fL 80-94 [facility] Erythrocyte distribution wid th ratioOrdered By: Gabi Lieberman on 05-07-2023 Erythrocyte distribution width (RBC) [Ratio] 14.5 % 11.6-14.6 [facility] Erythrocyte distribution wid th standard deviationOrdered By: Gabi Lieberman on 05-07-2023 Erythrocyte distribution width (RBC) [Entitic vol] 49.1 fL 35.1-43.9 [facility] Hematocrit Auto (Bld) [Volum e fraction]Ordered By: Gabi Lieberman on 05-07-2023 Hematocrit (Bld) [Volume fraction] 37.9 % 40-54 [facility] Immature granulocytes/100 WB C Auto (Bld)Ordered By: Gabi Lieberman on 05-07-2023 Immature granulocytes/100 WBC (Bld) 0.700 % 0.0-0.9 [facility] Comment on above: IG% - Immature Granu locytes (promyelocytes, myelocytes and metamyelocytes) > 1% indicates that a LEFT SHIFT is Present. Laboratory - Chemistry and C hemistry - challengeOrdered By: Gabi Lieberman on 05-07-2023 CO2 [Moles/Vol] 22.0 mmol/L 21.0-32.0 [facility] Natriuretic peptide B (Bld) [Mass/Vol] 40.9 pg/mL 0-100 [facility] Urea nitrogen/Creatinine [Mass ratio] 9.0 mg/mg 10-20 [facility] Laboratory - Hematology and Cell countsOrdered By: Gabi Lieberman on 05-07-2023 MCH (RBC) [Entitic mass] 27.1 pg 27.0-32.0 [facility] MCHC (RBC) [Mass/Vol] 29.3 g/dL 32-36 [facility] Nucleated RBC/100 WBC (Bld) [Ratio] 0 % 0-5 [facility] Platelets (Bld) [#/Vol] 226 10*3/uL 150-450 [facility] No Panel InformationOrdered By: Gabi Lieberman on 05-07-2023 Estimated GFR (MDRD) Amer 39 mL/min >60 [facility] Comment on above: GFR Calc Estimated GFR (MDRD) Non-Af Amer 32 mL/min >60 [facility] Comment on above: Non- GFR Calc Platelet mean volume Shivam-Ec ker (Bld) [Entitic vol]Ordered By: Gabi Lieberman on 05-07-2023 Platelet mean volume (Bld) [Entitic vol] 9.5 fL 6.2-12.0 [facility] RBC Auto (Bld) [#/Vol]Ordere d By: Gabi Lieberman on 05-07-2023 RBC (Bld) [#/Vol] 4.10 10*6/uL 4.6-6.2 [facility] Serum or plasma calcium caity urement (mass/volume)Ordered By: Gabi Lieberman on 05-07-2023 Calcium [Mass/Vol] 9.0 mg/dL 8.5-10.1 [facility] Serum or plasma creatinine m easurement (mass/volume)Ordered By: Gabi Lieberman on 05-07-2023 Creatinine [Mass/Vol] 2.21 mg/dL 0.70-1.30 [facility] Comment on above: The validity of the calculated GFR & GFRAA in patients over 70 years has not been determined. Clinical correlation is essential. Serum or plasma thyroid stim ulating hormone (TSH) measurement (units/volume)Ordered By: Gabi Lieberman on 05-07-2023 TSH Qn 1.24 uIU/mL 0.358-3.74 [facility] Serum or plasma urea nitroge n measurement (mass/volume)Ordered By: Gabi Lieberman on 05-07-2023 Urea nitrogen [Mass/Vol] 20 mg/dL 7-18 [facility] Thin prep Papanicolaou smear with manual screeningOrdered By: Gabi Lieberman on 05-07-2023 Thin prep Papanicolaou smear with manual screening 4 5-15 [facility] Basophil percentageOrdered B y: Cesar Reyna on 04-25-2023 Basophil percentage 0-5 SEEN /hpf 0-5 [facility] Bilirubin [Mass/Vol] 0.50 mg/dL 0.20-1.00 [facility] Comment on above: For patients on eltr ombopag therapy, use of [place] TBIL is not recommended. Chloride [Moles/Vol] 115 mmol/L 98-107 [facility] Glucose [Mass/Vol] 87 mg/dL 74-106 [facility] Potassium [Moles/Vol] 4.1 mmol/L 3.5-5.1 [facility] Protein [Mass/Vol] 5.6 g/dL 6.4-8.2 [facility] Sodium [Moles/Vol] 140 mmol/L 136-145 [facility] Bilirubin Test strip Ql (U)O rdered By: Cesar Reyna on 04-25-2023 Bilirubin Ql (U) Negative Negative [facility] Ketones Test strip Ql (U)Ord ered By: Cesar Reyna on 04-25-2023 Ketones Ql (U) Negative Negative [facility] Laboratory - Chemistry and C hemistry - challengeOrdered By: Cesar Reyna on 04-25-2023 Albumin/Globulin [Mass ratio] 1.1 {ratio} 0.9-2.4 [facility] ALP [Catalytic activity/Vol] 156 U/L 45-117 [facility] ALT [Catalytic activity/Vol] 42 U/L 16-61 [facility] CO2 [Moles/Vol] 24.0 mmol/L 21.0-32.0 [facility] Globulin (S) [Mass/Vol] 2.7 g/dL 2.2-4.2 [facility] Urea nitrogen/Creatinine [Mass ratio] 8.8 mg/mg 10-20 [facility] Mucus LM Ql (Urine sed)Order ed By: Cesar Reyna on 04-25-2023 Mucus Ql (Urine sed) 0 SEEN /hpf [facility] Nitrite Test strip Ql (U)Ord ered By: Cesar Reyna on 04-25-2023 Nitrite Ql (U) Negative Negative [facility] No Panel InformationOrdered By: Cesar Reyna on 04-25-2023 Urine RBC 10-25 SEEN /hpf 0-5 [facility] Estimated Creatinine Clearance Calc 49.11 ml/min [facility] Estimated GFR (MDRD) Amer 40 mL/min >60 [facility] Comment on above: GFR Calc Estimated GFR (MDRD) Non-Af Amer 33 mL/min >60 [facility] Comment on above: Non- GFR Calc Protein Test strip Ql (U)Ord ered By: Cesar Reyna on 04-25-2023 Protein Ql (U) 100 mg/dl Negative [facility] Serum or plasma calcium caity urement (mass/volume)Ordered By: Cesar Reyna on 04-25-2023 Calcium [Mass/Vol] 8.8 mg/dL 8.5-10.1 [facility] Serum or plasma creatinine m easurement (mass/volume)Ordered By: Cesar Reyna on 04-25-2023 Creatinine [Mass/Vol] 2.15 mg/dL 0.70-1.30 [facility] Comment on above: The validity of the calculated GFR & GFRAA in patients over 70 years has not been determined. Clinical correlation is essential. Serum or plasma urea nitroge n measurement (mass/volume)Ordered By: Cesar Reyna on 04-25-2023 Urea nitrogen [Mass/Vol] 19 mg/dL 7-18 [facility] Squamous epithelial cells de tection in urine sediment by light microscopyOrdered By: Cesar Reyna on 04-25-2023 Epithelial cells.squamous LM Ql (Urine sed) 0 SEEN /hpf 0-5 [facility] Thin prep Papanicolaou smear with manual screeningOrdered By: Cesar Reyna on 04-25-2023 Thin prep Papanicolaou smear with manual screening 2.9 g/dL 3.2-5.0 [facility] Thin prep Papanicolaou smear with manual screening 22 U/L 15-37 [facility] Thin prep Papanicolaou smear with manual screening 1 5-15 [facility] Urine blood detectionOrdered By: Cesar Reyna on 04-25-2023 RBC Ql (U) 150 /ul Negative [facility] Urine clarityOrdered By: Cesar Reyna on 04-25-2023 Clarity (U) Clear Clear [facility] Urine color determinationOrd ered By: Cesar Reyna on 04-25-2023 Color (U) Yellow Yellow [facility] Urine glucose detectionOrder ed By: Cesar Reyna on 04-25-2023 Glucose Ql (U) Normal mg/dl Normal [facility] Urine leukocyte esterase det ection by dipstickOrdered By: Cesar Reyna on 04-25-2023 Leukocyte esterase Test strip Ql (U) 25 /ul Negative [facility] Urine pHOrdered By: Cesar pedroza on 04-25-2023 pH (U) 6.5 [pH] 5.0 - 8.0 [facility] Urine sediment bacteria coun t by microscopy (number/high power field)Ordered By: Cesar Reyna on 04-25-2023 Bacteria LM.HPF (Urine sed) [#/Area] 0 /[HPF] None Seen [facility] Urine specific gravity measu rementOrdered By: Cesar Reyna on 04-25-2023 Specific gravity (U) [Rel density] 1.015 1.002-1.03 0 [facility] Urine urobilinogen measureme ntOrdered By: Cesar Reyna on 04-25-2023 Urobilinogen Ql (U) Normal mg/dl Normal [facility] Laboratory - Hematology and Cell countson 02-14-2023 HbA1c (Bld) [Mass fraction] 6.4 % 4.2-6.3 [facility] XR Hand - left PA and Latera l and Obliqueon 07-25-2022 IMPRESSION: Nondisplaced fracture of the base of the left fourth metacarpal Consulting Hr Professional: KYLER Transcribe Date/Time: Jul 25 2022 3:49P Dictated by : NITO MELENDEZ MD This examination was interpreted and the report reviewed and electronically signed by: NITO MELENDEZ MD on Jul 25 2022 3:50PM EST DIVISION OF RADIOLOGY * * *Final [...] maintained. Vascular calcifications. DIVISION OF RADIOLOGY Provider, [facility] - 07/25/2022 * * *Final Report* * [...] the base of the left fourth metacarpal Consulting Hr Professional: PSCB Transcribe Date/Time: Jul 25 2022 3:49P Dictated by : NITO MELENDEZ MD This examination was interpreted and the report reviewed and electronically signed by: NITO MELENDEZ MD on Jul 25 2022 3:50PM EST [facility] XR Hand - left PA and Latera l and ObliqueOrdered By: Ccf Provider on 07-25-2022 [facility] XR HAND GENERAL 3V PA/LAT/OB L LEFTon 07-24-2022 [facility] XR Hand - left PA and Latera l and Obliqueon 07-24-2022 Radiology Study observation (narrative) [facility] Basophil percentageOrdered B y: Dr. Low on 04-28-2022 Glucose [Mass/Vol] 82 mg/dL 74-106 [facility] No Panel InformationOrdered By: Dr. Low on 04-28-2022 C-Peptide < 0.1 ng/mL 1.1-4.4 [facility] Comment on above: C-Peptide reference interval is for fasting patients.Performed at: [facility] [place] [id number] Director: Chano Le PhD, Phone: [phone] Laboratory - Hematology and Cell countson 02-22-2022 HbA1c (Bld) [Mass fraction] 6.2 % [facility] Absolute lymphocyte countOrd ered By: Dr. Vega on 01-30-2022 Lymphocytes Auto (Unsp spec) [#/Vol] 0.70 10*3/uL 0.83-4.51 [facility] Basophil percentageOrdered B y: Dr. Vega on 01-30-2022 Basophils/100 WBC (Bld) 0.6 % 0-1 [facility] Chloride [Moles/Vol] 108 mmol/L 98-107 [facility] Eosinophils/100 WBC (Bld) 1.4 % 0-5 [facility] Glucose [Mass/Vol] 220 mg/dL 74-106 [facility] Comment on above: Glucose result great er than or equal to 200 mg/dLsuggests DIABETES MELLITUS per A.D.A. criteria. Neutrophils (Bld) [#/Vol] 2.1 10*3/uL 2.0-7.7 [facility] Neutrophils/100 WBC (Bld) 58.7 % 47-70 [facility] Potassium [Moles/Vol] 3.9 mmol/L 3.5-5.1 [facility] Sodium [Moles/Vol] 137 mmol/L 136-145 [facility] WBC (Bld) [#/Vol] 3.6 10*3/uL 4.4-11.0 [facility] Blood erythrocytes count (nu mber/volume)Ordered By: Dr. Vega on 01-30-2022 RBC (Bld) [#/Vol] 4.19 10*6/uL 4.6-6.2 [facility] Blood hemoglobin measurement (mass/volume)Ordered By: Dr. Vega on 01-30-2022 Hemoglobin (Bld) [Mass/Vol] 11.9 g/dL 13.0-16.5 [facility] Blood lymphocytes/100 leukoc ytesOrdered By: Dr. Vega on 01-30-2022 Lymphocytes/100 WBC (Bld) 19.7 % 19-41 [facility] Blood monocytes/100 leukocyt esOrdered By: Dr. Vega on 01-30-2022 Monocytes/100 WBC (Bld) 18.8 % 0-10 [facility] Blood platelet mean volumeOr dered By: Dr. Vega on 01-30-2022 Platelet mean volume (Bld) [Entitic vol] 10.2 fL 6.2-12.0 [facility] Clostridium difficile detect ion by polymerase chain reactionOrdered By: Dr. Vega on 01-30-2022 C. difficile DNA BRANDON+probe Ql (Unsp spec) [facility] Determination of erythrocyte mean corpuscular volume (MCV)Ordered By: Dr. Vega on 01-30-2022 MCV (RBC) [Entitic vol] 86.9 fL 80-94 [facility] EP PanelOrdered By: Dr. Vega o n 01-30-2022 Gastrointestinal pathogens panel BRANDON+probe (Stl) [facility] Hematocrit Auto (Bld) [Volum e fraction]Ordered By: Dr. Vega on 01-30-2022 Hematocrit (Bld) [Volume fraction] 36.4 % 40-54 [facility] Laboratory - Chemistry and C hemistry - challengeOrdered By: Dr. Vega on 01-30-2022 CO2 [Moles/Vol] 21.0 mmol/L 21.0-32.0 [facility] Urea nitrogen/Creatinine [Mass ratio] 10.4 mg/mg 10-20 [facility] Laboratory - Hematology and Cell countsOrdered By: Dr. Vega on 01-30-2022 Erythrocyte distribution width (RBC) [Entitic vol] 45.2 fL 35.1-43.9 [facility] Erythrocyte distribution width (RBC) [Ratio] 14.3 % 11.6-14.6 [facility] Immature granulocytes/100 WBC (Bld) 0.800 % 0.0-0.9 [facility] Comment on above: IG% - Immature Granu locytes (promyelocytes, myelocytes and metamyelocytes) > 1% indicates that a LEFT SHIFT is Present. MCH (RBC) [Entitic mass] 28.4 pg 27.0-32.0 [facility] Nucleated RBC/100 WBC (Bld) [Ratio] 0 % 0-5 [facility] MCHC Auto (RBC) [Mass/Vol]Or dered By: Dr. Vega on 01-30-2022 MCHC (RBC) [Mass/Vol] 32.7 g/dL 32-36 [facility] No Panel InformationOrdered By: Dr. Vega on 01-30-2022 Estimated Creatinine Clearance Calc 34.22 ml/min [facility] Estimated GFR (MDRD) Amer 36 mL/min >60 [facility] Comment on above: GFR Calc Estimated GFR (MDRD) Non-Af Amer 30 mL/min >60 [facility] Comment on above: Non- GFR Calc Platelets bldOrdered By: Dr. Vega on 01-30-2022 Platelets (Bld) [#/Vol] 148 10*3/uL 150-450 [facility] Serum or plasma calcium caity urement (mass/volume)Ordered By: Dr. Vega on 01-30-2022 Calcium [Mass/Vol] 9.6 mg/dL 8.5-10.1 [facility] Serum or plasma creatinine m easurement (mass/volume)Ordered By: Dr. Vega on 01-30-2022 Creatinine [Mass/Vol] 2.40 mg/dL 0.70-1.30 [facility] Comment on above: The validity of the calculated GFR & GFRAA in patients over 70 years has not been determined. Clinical correlation is essential. Serum or plasma urea nitroge n measurement (mass/volume)Ordered By: Dr. Vega on 01-30-2022 Urea nitrogen [Mass/Vol] 25 mg/dL 7-18 [facility] Thin prep Papanicolaou smear with manual screeningOrdered By: Dr. Vega on 01-30-2022 Thin prep Papanicolaou smear with manual screening 8 5-15 [facility] Order Reconciliationon 01-12 Order Reconciliation Page 1 [...] available online in (more content not included)... 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 (procedure may be cancelled if no racecar driver), center location, insurance information Prep Instructions Reviewedyes Instructed to Have No Fluids Aftermidnight How to be Addressedchris Spoken Language PreferredEnglish Source of Informationpatient Stated Reason for Admissionright TRABECulectomy Primary Contact Name and Numberself Medications Brought to Hospital[facility] General Health: Weight in kg113.5 kilogram(s) Weight in vyf808.2 pound(s) Weight Methodactual (measured) Height in feet5 feet Height in cwpyeq64 inch(es) Height in cm177.8 centimeter(s) Height Methodstated BMI (kg/m2)35.903 square meter Patient or Family Member Reaction to Anesthesiano previous reaction; no previous family member reaction Blood Avoidance/Restrictionsnone Previous Transfusion Reactionnot applicable Health Mgmt: Symptoms/Conditions Managed at [facility] Barriers to Managing Healthnone Relationship/Environ: Lives Withspouse Living Arrangementshouse Resource/Environmental Concernsnone [place] [facility] Anticipated at Transitionnone Tobacco Use: Tobacco Useno Pre-op Checklist: Arrival [id number] Arrival Time06:45 Procedure Typeright eye trabeculectomy NPOyes Last Food [id number] 21:00 Last Clear Fluid [id number] 21:00 NPO Commentsip of h2o with am meds ID Band On Patientpatient ID (name) Consent Signedyes H&P Completeyes, viewed with consent Anesthesia Assessment Completedpending EKG Performednot ordered Chest X-Ray Performednot ordered Preop Antibioticsnot ordered Beta-siddhartha Last Dose Date/[id number] 21:00 Beta-siddhartha Commentcoreg Bowel Prepno Surgical Site [...] disease): 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 HCV RNA BRANDON+probe DL = 5 iU/ mL QnOrdered By: Vania Garnett on 10-15-2021 HCV RNA BRANDON+probe Ql <1.08 <1.08 l og unit [facility] Interpretation and review of laboratory results Normal [facility] This test was perfor med using a real time PCR assay. The dynamic range for this assay is 12-100,000,000 IU/mL. [facility] HEPATITIS C BY PCR, QUANTOrd ered By: Vania Garnett on 10-15-2021 HCV RNA BRANDON+probe DL = 5 iU/mL Qn <12 <12 IU/mL [facility] ALLOSCREEN RECIPIENT (POST T X PRA)on 10-14-2021 AB SPECIFICITY CLASS COMMENT Antibody Specificity testing performed by [facility]. cPRA calculation based on identification of HLA antibody specificities at MFI >2000 and/or presence of CREG antibodies. [facility] Comment on above: Some of the reagents used for testing in the Clinical Histocompatibility Laboratory have yet to be approved by the FDA. Our certification by CLIA to perform high complexity tests allows us to use these reagents in the context of a stringent QC program, and obviates the need for FDA approval.Testing performed by the [facility] Clinical Histocompatibility Laboratory. [facility] number: [id number]. CLIA number: [id number], Director: Valentin Qureshi, PhD, D([facility]). ANTIBODY SPECIFICITY INTERPRETATION Detected [facility] CLASS I SPECIFICITIES Not detected O [facility] CLASS II SPECIFICITIES Not detected [facility] HLA Ab (S) 0 % 0 [facility] MAGNESIUMon 10-13-2021 Interpretation and review of laboratory results Normal [facility] Magnesium [Mass/Vol] 2.2 mg/dL 1.6 - 2 .6 mg/dL [facility] Laboratory - Hematology and Cell countson 07-28-2021 HbA1c (Bld) [Mass fraction] 7.0 % [facility] Work Phone: Basic metabolic 2000 panelon 06-22-2021 Anion gap [Moles/Vol] 6 mmol/L Normal 6-18 [facility] Comment on above: Performed By: #### 2 4321-2 #### [facility] [place] [facility] [address] [place] [address] Calcium [Mass/Vol] 10.2 mg/dL Normal 8.9-10.3 [facility] Comment on above: Performed By: #### 2 4321-2 #### [facility] [place] [facility] [address] [place] [address] Chloride [Moles/Vol] 111 mmol/L High 98-107 [facility] Comment on above: Performed By: #### 2 4321-2 #### [facility] [place] [facility] [address] [place] [address] CO2 [Moles/Vol] 21 mmol/L Low 22-32 [facility] Comment on above: Performed By: #### 2 4321-2 #### [facility] [place] [facility] [address] [place] [address] Creatinine [Mass/Vol] 2.17 mg/dL High 0.60-1.30 [facility] Comment on above: Performed By: #### 2 4321-2 #### [facility] [place] [facility] [address] [place] [address] GFR/1.73 sq M.predicted among non-blacks MDRD (S/P/Bld) [Vol rate/Area] 32 mL/min/{1.73_m2} Normal [facility] Comment on above: Performed By: #### 2 4321-2 #### [facility] [place] [facility] [address] [place] [address] Glucose [Mass/Vol] 96 mg/dL Normal 70-99 [facility] Comment on above: Performed By: #### 2 4321-2 #### [facility] [place] [address] [place] [address] Potassium [Moles/Vol] 4.1 mmol/L Normal 3.6-5.1 [facility] Comment on above: Performed By: #### 2 4321-2 #### [facility] [place] [facility] [address] [place] [address] Sodium [Moles/Vol] 138 mmol/L Normal 136-145 [facility] Comment on above: Performed By: #### 2 4321-2 #### [facility] [place] [facility] [address] [place] [address] Urea nitrogen [Mass/Vol] 39 mg/dL High 8-20 [facility] Comment on above: Performed By: #### 2 4321-2 #### [facility] [place] [facility] [address] [place] [address] Urea nitrogen/Creatinine [Mass ratio] 18.0 mg/mg Normal 12.0-20.0 [facility] Comment on above: Performed By: #### 2 4321-2 #### [facility] [place] [address] [place] [address] Hemogram and platelets WO di fferential panel (Bld)on 06-22-2021 Erythrocyte distribution width (RBC) [Ratio] 14.8 % Normal 11.0-14.8 [facility] Comment on above: Performed By: #### 2 4317-0 #### [facility] [place] [address] [place] [address] Hematocrit (Bld) [Volume fraction] 33.3 % Low 39.0-49.0 [facility] Comment on above: Performed By: #### 2 4317-0 #### [facility] [place] [facility] [address] [place] [address] Hemoglobin (Bld) [Mass/Vol] 11.1 g/dL Low 13.5-17.5 [facility] Comment on above: Performed By: #### 2 4317-0 #### [facility] [place] [facility] [address] [place] [address] MCH 31.4 pcg Normal 27.0-34.0 [facility] Comment on above: Performed By: #### 2 4317-0 #### [facility] [place] [facility] [address] [place] [address] MCHC (RBC) [Mass/Vol] 33.4 g/dL Normal 32.0-36.0 [facility] Comment on above: Performed By: #### 2 4317-0 #### [facility] [place] [facility] [address] [place] [address] MCV (RBC) [Entitic vol] 94.0 fL Normal 80.0-97.0 [facility] Comment on above: Performed By: #### 2 4317-0 #### [facility] [place] [facility] [address] [place] [address] Platelet mean volume (Bld) [Entitic vol] 9.7 fL Normal 6.2-12.1 [facility] Comment on above: Performed By: #### 2 4317-0 #### [facility] [place] [facility] [address] [place] [address] Platelets (Bld) [#/Vol] 163 10*3/uL Normal 142-424 [facility] Comment on above: Performed By: #### 2 4317-0 #### [facility] [place] [facility] [address] [place] [address] RBC (Bld) [#/Vol] 3.54 10*6/uL Low 4.30-5.70 [facility] Comment on above: Performed By: #### 2 4317-0 #### [facility] [place] [facility] [address] [place] [address] WBC (Bld) [#/Vol] 6.3 10*3/uL Normal 4.6-10.2 [facility] Comment on above: Performed By: #### 2 4317-0 #### [facility] [place] [facility] [address] [place] [address] BASIC METABOLIC PANELon 06-01 Anion gap [Moles/Vol] 11 mmol/L 7 - 17 mmol/L [facility] Calcium [Mass/Vol] 9.9 mg/dL 8.6 - 10. 5 mg/dL [facility] Chloride [Moles/Vol] 110 mmol/L High 98 - 10 8 mmol/L [facility] CO2 [Moles/Vol] 19 mmol/L Low 21 - 31 mmol/L [facility] Creatinine [Mass/Vol] 2.51 mg/dL High 0.70 - 1.30 mg/dL [facility] GFR/1.73 sq M.predicted CKD-EPI (S/P/Bld) [Vol rate/Area] 29 Low >=60 mL/min/1.7 3m2 [facility] Comment on above: Reported eGFR is bas ed on the CKD-EPI 2020 equation using creatinine, age, and sex. Glucose [Mass/Vol] 199 mg/dL High 70 - 99 mg/dL [facility] Interpretation and review of laboratory results Abnormal [facility] Osmolality Calc [Osmolality] 302 [facility] Potassium [Moles/Vol] 4.5 mmol/L 3.5 - 5.0 mmol/L [facility] Sodium [Moles/Vol] 135 mmol/L 135 - 145 mmol/L [facility] Urea nitrogen [Mass/Vol] 45 mg/dL High 7 - 25 mg/dL [facility] Urea nitrogen/Creatinine [Mass ratio] 18 mg/mg [facility] CBC,PLATELETSon 06-21-2021 Erythrocyte distribution width (RBC) [Ratio] 13.6 % 10.9 - 14.3 % [facility] Hematocrit (Bld) [Volume fraction] 34.8 % Low 39.6 - 48.8 % [facility] Hemoglobin (Bld) [Mass/Vol] 10.7 g/dL Low 13.4 - 16.8 g/dL [facility] Interpretation and review of laboratory results Abnormal [facility] MCH (RBC) [Entitic mass] 30.0 pg 26.1 - 33.3 pg [facility] MCHC (RBC) [Mass/Vol] 30.7 g/dL Low 31.9 - 36.5 g/dL [facility] MCV (RBC) [Entitic vol] 97.5 fL High 79.0 - 94.5 fL [facility] Platelet mean volume (Bld) [Entitic vol] 11.5 fL 8.7 - 12.3 fL [facility] Platelets (Bld) [#/Vol] 152 10*3/uL 146 - 337 K/uL [facility] RBC (Bld) [#/Vol] 3.57 10*6/uL Low [facility] WBC (Bld) [#/Vol] 7.16 10*3/uL 3.73 - 10.10 K/uL [facility] EVEROLIMUS, TROUGH (PRE DRUG LEVEL)on 06-21-2021 Everolimus trough (P) [Mass/Vol] 4.8 ng/mL [facility] No therapeutic range established for this drug. Test results should be integrated into the clinical context for interpretation. Method performed is a particle enhanced turbidimetric immunoassay on the GelSight [id number]. [facility] GLUCOSE POCon 06-21-2021 Glucose [Mass/Vol] 175 mg/dL High 70 - 99 mg/dL [facility] Interpretation and review of laboratory results Abnormal [facility] Poc Sample Type CAPBL [facility] Test performed at ad dress of the patient encounter. [facility] Glucose [Mass/Vol] 245 mg/dL High 70 - 99 mg/dL [facility] Interpretation and review of laboratory results Abnormal [facility] Poc Sample Type CAPBL [facility] Test performed at ad dress of the patient encounter. [facility] Glucose [Mass/Vol] 100 mg/dL High 70 - 99 mg/dL [facility] Interpretation and review of laboratory results Abnormal [facility] Poc Sample Type CAPBL [facility] Test performed at ad dress of the patient encounter. [facility] Glucose [Mass/Vol] 33 mg/dL Critically low 70 - 99 mg/dL [facility] Glucose [Mass/Vol] 50 mg/dL Low 70 - 99 mg/dL [facility] MAGNESIUMon 06-21-2021 Interpretation and review of laboratory results Normal [facility] Magnesium [Mass/Vol] 1.8 mg/dL 1.6 - 2 .6 mg/dL [facility] No Panel Informationon 06-21 [facility] Interpretation and review of laboratory results Abnormal [facility] Poc Sample Type CAPBL [facility] Test performed at ad dress of the patient encounter. [facility] BASIC METABOLIC PANELon 06-01 Anion gap [Moles/Vol] 13 mmol/L 7 - 17 mmol/L [facility] Calcium [Mass/Vol] 10.3 mg/dL 8.6 - 10. 5 mg/dL [facility] Chloride [Moles/Vol] 111 mmol/L High 98 - 10 8 mmol/L [facility] CO2 [Moles/Vol] 19 mmol/L Low 21 - 31 mmol/L [facility] Creatinine [Mass/Vol] 2.65 mg/dL High 0.70 - 1.30 mg/dL [facility] GFR/1.73 sq M.predicted CKD-EPI (S/P/Bld) [Vol rate/Area] 27 Low >=60 mL/min/1.7 3m2 [facility] Comment on above: Reported eGFR is bas ed on the CKD-EPI 2020 equation using creatinine, age, and sex. Glucose [Mass/Vol] 69 mg/dL Low 70 - 99 mg/dL [facility] Interpretation and review of laboratory results Abnormal [facility] Osmolality Calc [Osmolality] 300 [facility] Potassium [Moles/Vol] 4.3 mmol/L 3.5 - 5.0 mmol/L [facility] Sodium [Moles/Vol] 139 mmol/L 135 - 145 mmol/L [facility] Urea nitrogen [Mass/Vol] 43 mg/dL High 7 - 25 mg/dL [facility] Urea nitrogen/Creatinine [Mass ratio] 16 mg/mg [facility] CBC,PLATELETSon 06-20-2021 Erythrocyte distribution width (RBC) [Ratio] 13.9 % 10.9 - 14.3 % [facility] Hematocrit (Bld) [Volume fraction] 36.5 % Low 39.6 - 48.8 % [facility] Hemoglobin (Bld) [Mass/Vol] 11.5 g/dL Low 13.4 - 16.8 g/dL [facility] Interpretation and review of laboratory results Abnormal [facility] MCH (RBC) [Entitic mass] 30.7 pg 26.1 - 33.3 pg [facility] MCHC (RBC) [Mass/Vol] 31.5 g/dL Low 31.9 - 36.5 g/dL [facility] MCV (RBC) [Entitic vol] 97.3 fL High 79.0 - 94.5 fL [facility] Platelet mean volume (Bld) [Entitic vol] 11.5 fL 8.7 - 12.3 fL [facility] Platelets (Bld) [#/Vol] 154 10*3/uL 146 - 337 K/uL [facility] RBC (Bld) [#/Vol] 3.75 10*6/uL Low [facility] WBC (Bld) [#/Vol] 7.45 10*3/uL 3.73 - 10.10 K/uL [facility] EVEROLIMUS, TROUGH (PRE DRUG LEVEL)Ordered By: Shivani Valentin on 06-20-2021 Everolimus trough (P) [Mass/Vol] 2.4 ng/mL [facility] EVEROLIMUS, TROUGH (PRE DRUG LEVEL)on 06-20-2021 Everolimus trough (P) [Mass/Vol] 3.5 ng/mL [facility] GLUCOSE POCon 06-20-2021 Glucose [Mass/Vol] 121 mg/dL High 70 - 99 mg/dL [facility] Interpretation and review of laboratory results Abnormal [facility] Poc Sample Type CAPBL [facility] Test performed at ad dress of the patient encounter. [facility] Glucose [Mass/Vol] 176 mg/dL High 70 - 99 mg/dL [facility] Interpretation and review of laboratory results Abnormal [facility] Poc Sample Type CAPBL [facility] Test performed at ad dress of the patient encounter. [facility] Glucose [Mass/Vol] 230 mg/dL High 70 - 99 mg/dL [facility] Interpretation and review of laboratory results Abnormal [facility] Poc Sample Type CAPBL [facility] Test performed at ad dress of the patient encounter. [facility] Glucose [Mass/Vol] 91 mg/dL 70 - 99 mg/dL [facility] Poc Sample Type CAPBL [facility] Test performed at ad dress of the patient encounter. [facility] MAGNESIUMon 06-20-2021 Interpretation and review of laboratory results Normal [facility] Magnesium [Mass/Vol] 1.7 mg/dL 1.6 - 2 .6 mg/dL [facility] No Panel InformationOrdered By: Shivani Valentin on 06-20-2021 No therapeutic range established for this drug. Test results should be integrated into the clinical context for interpretation. Method performed is a particle enhanced turbidimetric immunoassay on the GelSight [id number]. [facility] No Panel Informationon 06-20 [facility] BASIC METABOLIC PANELon 06-01 Anion gap [Moles/Vol] 13 mmol/L 7 - 17 mmol/L [facility] Calcium [Mass/Vol] 10.3 mg/dL 8.6 - 10. 5 mg/dL [facility] Chloride [Moles/Vol] 110 mmol/L High 98 - 10 8 mmol/L [facility] CO2 [Moles/Vol] 19 mmol/L Low 21 - 31 mmol/L [facility] Creatinine [Mass/Vol] 2.97 mg/dL High 0.70 - 1.30 mg/dL [facility] GFR/1.73 sq M.predicted CKD-EPI (S/P/Bld) [Vol rate/Area] 24 Low >=60 mL/min/1.7 3m2 [facility] Comment on above: Reported eGFR is bas ed on the CKD-EPI 2020 equation using creatinine, age, and sex. Glucose [Mass/Vol] 166 mg/dL High 70 - 99 mg/dL [facility] Interpretation and review of laboratory results Abnormal [facility] Osmolality Calc [Osmolality] 304 [facility] Potassium [Moles/Vol] 4.5 mmol/L 3.5 - 5.0 mmol/L [facility] Sodium [Moles/Vol] 137 mmol/L 135 - 145 mmol/L [facility] Urea nitrogen [Mass/Vol] 44 mg/dL High 7 - 25 mg/dL [facility] Urea nitrogen/Creatinine [Mass ratio] 15 mg/mg [facility] Bacteria identified Cx Nom ( Bld)on 06-19-2021 Bacteria identified Cx Nom (Unsp spec) NO GROWTH DAY 5 OF 5 [facility] Results may be compr omised due to volume of BACT\ALERT bottle below 8mLs. The optimal blood volume is 8-10 mls per aerobic/anaerobic blood culture bottle [facility] CBC,PLATELETSon 06-19-2021 Erythrocyte distribution width (RBC) [Ratio] 13.8 % 10.9 - 14.3 % [facility] Hematocrit (Bld) [Volume fraction] 34.9 % Low 39.6 - 48.8 % [facility] Hemoglobin (Bld) [Mass/Vol] 11.0 g/dL Low 13.4 - 16.8 g/dL [facility] Interpretation and review of laboratory results Abnormal [facility] MCH (RBC) [Entitic mass] 30.3 pg 26.1 - 33.3 pg [facility] MCHC (RBC) [Mass/Vol] 31.5 g/dL Low 31.9 - 36.5 g/dL [facility] MCV (RBC) [Entitic vol] 96.1 fL High 79.0 - 94.5 fL [facility] Platelet mean volume (Bld) [Entitic vol] 11.7 fL 8.7 - 12.3 fL [facility] Platelets (Bld) [#/Vol] 154 10*3/uL 146 - 337 K/uL [facility] RBC (Bld) [#/Vol] 3.63 10*6/uL Low [facility] WBC (Bld) [#/Vol] 8.08 10*3/uL 3.73 - 10.10 K/uL [facility] GLUCOSE POCon 06-19-2021 Glucose [Mass/Vol] 156 mg/dL High 70 - 99 mg/dL [facility] Interpretation and review of laboratory results Abnormal [facility] Poc Sample Type CAPBL [facility] Test performed at ad dress of the patient encounter. [facility] Glucose [Mass/Vol] 223 mg/dL High 70 - 99 mg/dL [facility] Glucose [Mass/Vol] 275 mg/dL High 70 - 99 mg/dL [facility] Glucose [Mass/Vol] 263 mg/dL High 70 - 99 mg/dL [facility] Interpretation and review of laboratory results Abnormal [facility] Poc Sample Type CAPBL [facility] Test performed at ad dress of the patient encounter. [facility] Glucose [Mass/Vol] 227 mg/dL High 70 - 99 mg/dL [facility] Interpretation and review of laboratory results Abnormal [facility] Poc Sample Type CAPBL [facility] Test performed at ad dress of the patient encounter. [facility] Glucose [Mass/Vol] 168 mg/dL High 70 - 99 mg/dL [facility] Interpretation and review of laboratory results Abnormal [facility] Poc Sample Type CAPBL [facility] Test performed at ad dress of the patient encounter. [facility] MAGNESIUMon 06-19-2021 Interpretation and review of laboratory results Normal [facility] Magnesium [Mass/Vol] 1.7 mg/dL 1.6 - 2 .6 mg/dL [facility] No Panel Informationon 06-19 Interpretation and review of laboratory results Abnormal [facility] Poc Sample Type CAPBL [facility] Test performed at ad dress of the patient encounter. [facility] BASIC METABOLIC PANELon 05-31 Anion gap [Moles/Vol] 13 mmol/L 7 - 17 mmol/L [facility] Calcium [Mass/Vol] 10.2 mg/dL 8.6 - 10. 5 mg/dL [facility] Chloride [Moles/Vol] 108 mmol/L 98 - 10 8 mmol/L [facility] CO2 [Moles/Vol] 17 mmol/L Low 21 - 31 mmol/L [facility] Creatinine [Mass/Vol] 3.10 mg/dL High 0.70 - 1.30 mg/dL [facility] GFR/1.73 sq M.predicted CKD-EPI (S/P/Bld) [Vol rate/Area] 22 Low >=60 mL/min/1.7 3m2 [facility] Comment on above: Reported eGFR is bas ed on the CKD-EPI 2020 equation using creatinine, age, and sex. Glucose [Mass/Vol] 299 mg/dL High 70 - 99 mg/dL [facility] Interpretation and review of laboratory results Abnormal [facility] Osmolality Calc [Osmolality] 306 High [facility] Potassium [Moles/Vol] 5.3 mmol/L High 3.5 - 5.0 mmol/L [facility] Sodium [Moles/Vol] 133 mmol/L Low 135 - 145 mmol/L [facility] Urea nitrogen [Mass/Vol] 43 mg/dL High 7 - 25 mg/dL [facility] Urea nitrogen/Creatinine [Mass ratio] 14 mg/mg [facility] CBC,PLATELETSon 06-18-2021 Erythrocyte distribution width (RBC) [Ratio] 13.4 % 10.9 - 14.3 % [facility] Hematocrit (Bld) [Volume fraction] 35.1 % Low 39.6 - 48.8 % [facility] Hemoglobin (Bld) [Mass/Vol] 11.1 g/dL Low 13.4 - 16.8 g/dL [facility] Interpretation and review of laboratory results Abnormal [facility] MCH (RBC) [Entitic mass] 30.9 pg 26.1 - 33.3 pg [facility] MCHC (RBC) [Mass/Vol] 31.6 g/dL Low 31.9 - 36.5 g/dL [facility] MCV (RBC) [Entitic vol] 97.8 fL High 79.0 - 94.5 fL [facility] Platelet mean volume (Bld) [Entitic vol] 11.6 fL 8.7 - 12.3 fL [facility] Platelets (Bld) [#/Vol] 151 10*3/uL 146 - 337 K/uL [facility] RBC (Bld) [#/Vol] 3.59 10*6/uL Low [facility] WBC (Bld) [#/Vol] 10.15 10*3/uL High 3.73 - 10.10 K/uL [facility] GLUCOSE POCon 06-18-2021 Glucose [Mass/Vol] 213 mg/dL High 70 - 99 mg/dL [facility] Interpretation and review of laboratory results Abnormal [facility] Poc Sample Type CAPBL [facility] Test performed at ad dress of the patient encounter. [facility] [Mass/Vol] 266 mg/dL High 70 - 99 mg/dL [facility] Interpretation and review of laboratory results Abnormal [facility] Poc Sample Type CAPBL [facility] Test performed at ad dress of the patient encounter. [facility] Glucose [Mass/Vol] 272 mg/dL High 70 - 99 mg/dL [facility] [facility] Interpretation and review of laboratory results Abnormal [facility] Poc Sample Type CAPBL [facility] Test performed at ad dress of the patient encounter. [facility] Glucose [Mass/Vol] 284 mg/dL High 70 - 99 mg/dL [facility] Interpretation and review of laboratory results Abnormal [facility] Poc Sample Type CAPBL [facility] Test performed at ad dress of the patient encounter. [facility] Glucose [Mass/Vol] 291 mg/dL High 70 - 99 mg/dL [facility] Interpretation and review of laboratory results Abnormal [facility] Poc Sample Type CAPBL [facility] Test performed at ad dress of the patient encounter. [facility] Glucose [Mass/Vol] 365 mg/dL High 70 - 99 mg/dL [facility]ation and review of laboratory results [facility] Sample Type CAPBL [facility] Test performed at ad dress of the patient encounter. [facility] MAGNESIUMon 06-18-2021 Interpretation and review of laboratory results Normal [facility] Magnesium [Mass/Vol] 1.7 mg/dL 1.6 - 2 .6 mg/dL [facility] No Panel Informationon 06-18 [facility] BASIC METABOLIC PANELon 05-31 Anion gap [Moles/Vol] 11 mmol/L 7 - 17 mmol/L [facility] Calcium [Mass/Vol] 10.2 mg/dL 8.6 - 10. 5 mg/dL [facility] Chloride [Moles/Vol] 112 mmol/L High 98 - 10 8 mmol/L [facility] CO2 [Moles/Vol] 18 mmol/L Low 21 - 31 mmol/L [facility] Creatinine [Mass/Vol] 2.78 mg/dL High 0.70 - 1.30 mg/dL [facility] GFR/1.73 sq M.predicted CKD-EPI (S/P/Bld) [Vol rate/Area] 26 Low >=60 mL/min/1.7 3m2 [facility] Comment on above: Reported eGFR is bas ed on the CKD-EPI 2020 equation using creatinine, age, and sex. Glucose [Mass/Vol] 171 mg/dL High 70 - 99 mg/dL [facility] Interpretation and review of laboratory results Abnormal [facility] Osmolality Calc [Osmolality] 300 [facility] Potassium [Moles/Vol] 5.1 mmol/L High 3.5 - 5.0 mmol/L [facility] Sodium [Moles/Vol] 136 mmol/L 135 - 145 mmol/L [facility] Urea nitrogen [Mass/Vol] 35 mg/dL High 7 - 25 mg/dL [facility] Urea nitrogen/Creatinine [Mass ratio] 13 mg/mg [facility] CARDIAC RHYTHM (SCANNED)on 0 06-17-2021 [facility] CBC,PLATELETSon 06-17-2021 Erythrocyte distribution width (RBC) [Ratio] 13.8 % 10.9 - 14.3 % [facility] Hematocrit (Bld) [Volume fraction] 35.4 % Low 39.6 - 48.8 % [facility] Hemoglobin (Bld) [Mass/Vol] 11.2 g/dL Low 13.4 - 16.8 g/dL [facility] Interpretation and review of laboratory results Abnormal [facility] MCH (RBC) [Entitic mass] 31.0 pg 26.1 - 33.3 pg [facility] MCHC (RBC) [Mass/Vol] 31.6 g/dL Low 31.9 - 36.5 g/dL [facility] MCV (RBC) [Entitic vol] 98.1 fL High 79.0 - 94.5 fL [facility] Platelet mean volume (Bld) [Entitic vol] 11.6 fL 8.7 - 12.3 fL [facility] Platelets (Bld) [#/Vol] 164 10*3/uL 146 - 337 K/uL [facility] RBC (Bld) [#/Vol] 3.61 10*6/uL Low [facility] WBC (Bld) [#/Vol] 8.27 10*3/uL 3.73 - 10.10 K/uL [facility] GLUCOSE POCon 06-17-2021 Glucose [Mass/Vol] 425 mg/dL Critically high 70 - 9 9 mg/dL [facility] Comment on above: Notified RNread back Interpretation and review of laboratory results Abnormal [facility] Poc Sample Type CAPBL [facility] Test performed at ad dress of the patient encounter. [facility] Glucose [Mass/Vol] 439 mg/dL Critically high 70 - 9 9 mg/dL [facility] Interpretation and review of laboratory results Abnormal [facility] Poc Sample Type CAPBL [facility] Test performed at ad dress of the patient encounter. [facility] Glucose [Mass/Vol] 241 mg/dL High 70 - 99 mg/dL [facility] Interpretation and review of laboratory results Abnormal [facility] Poc Sample Type CAPBL [facility] Test performed at ad dress of the patient encounter. [facility] Glucose [Mass/Vol] 214 mg/dL High 70 - 99 mg/dL [facility] Interpretation and review of laboratory results Abnormal [facility] Poc Sample Type CAPBL [facility] Test performed at ad dress of the patient encounter. [facility] Glucose [Mass/Vol] 198 mg/dL High 70 - 99 mg/dL [facility] Interpretation and review of laboratory results Abnormal [facility] Poc Sample Type CAPBL [facility] Test performed at ad dress of the patient encounter. [facility] MAGNESIUMon 06-17-2021 Interpretation and review of laboratory results Normal [facility] Magnesium [Mass/Vol] 1.6 mg/dL 1.6 - 2 .6 mg/dL [facility] No Panel Informationon 06-17 [facility] PROTIME-INRon 06-17-2021 INR Coag (Bld) [Relative time] 1.0 {INR} [facility] Interpretation and review of laboratory results Normal [facility] PT Coag (PPP) [Time] 13.2 s [facility] TACROLIMUS LEVEL, TROUGH (IA E DRUG LEVEL)Ordered By: Lobito Byrne on 06-17-2021 Interpretation and review of laboratory results Normal [facility] Tacrolimus (Bld) [Mass/Vol] 9.4 ng/mL Bone Marrow Transplant : 4.0-12.0, Therapeuti c: 5.0-15.0 [facility] Method performed is a chemiluminescent microparticle immunoasssay on the [employer]2000. The range is based on experience at [facility] and users should be aware that target concentrations vary widely depending on concomitant therapy, time post-transplant, and desired degree of immunosuppression. [facility] CMV BY PCR, QUANTITATIVE, BL OODOrdered By: Mayra Buenrostro on 06-16-2021 CMV DNA BRANDON+probe Qn (P) <50 <50 IU/mL [facility] Interpretation and review of laboratory results Normal [facility] This test was perfor med using a real time CMV PCR assay. The dynamic range for this assay is 50-156,000,000 IU/mL. Results should be interpreted in conjunction with other clinical and laboratory. [facility] EBV BY PCR, QUANTITATIVE,BLO ODOrdered By: Vania Garnett on 06-16-2021 EBV DNA BRANDON+probe (Unsp spec) [#/Vol] <1000 <1,000 IU/mL [facility] Interpretation and review of laboratory results Normal [facility] This test was perfor med using a real time PCR assay. The dynamic range for this assay is 1000-5,000,000 IU/mL. A result <1000 IU/mL does not rule out the presence of EBV DNA in quantities below the sensitivity of this assay. This test was developed and its performance characteristics determined by [facility] at [facility]. It has not been cleared or approved by the FDA. The laboratory is regulated under CLIA as qualified to perform high-complexity testing. This test is used for clinical purposes. It should not be regarded as investigational or for research. [facility] GLUCOSE POCon 06-16-2021 Glucose [Mass/Vol] 118 mg/dL High 70 - 99 mg/dL [facility] Interpretation and review of laboratory results Abnormal [facility] Poc Sample Type CAPBL [facility] Test performed at ad dress of the patient encounter. [facility] Glucose [Mass/Vol] 186 mg/dL High 70 - 99 mg/dL [facility] Comment on above: Notified RNread back Interpretation and review of laboratory results Abnormal [facility] Poc Sample Type CAPBL [facility] Test performed at ad dress of the patient encounter. [facility] Glucose [Mass/Vol] 140 mg/dL High 70 - 99 mg/dL [facility] Interpretation and review of laboratory results Abnormal [facility] Poc Sample Type CAPBL [facility] Test performed at ad dress of the patient encounter. [facility] TACROLIMUS LEVEL, TROUGH (IA E DRUG LEVEL)on 06-16-2021 Interpretation and review of laboratory results Normal [facility] Tacrolimus (Bld) [Mass/Vol] 9.5 ng/mL Bone Marrow Transplant : 4.0-12.0, Therapeuti c: 5.0-15.0 [facility] Method performed is a chemiluminescent microparticle immunoasssay on the [employer]. The range is based on experience at [facility] and users should be aware that target concentrations vary widely depending on concomitant therapy, time post-transplant, and desired degree of immunosuppression. [facility] EXTRA MICROon 06-15-2021 [facility] FOLATE, SERUMon 06-15-2021 Folate [Mass/Vol] 10.33 ng/mL >5.38 [facility] Interpretation and review of laboratory results Normal [facility] GLUCOSE POCon 06-15-2021 Glucose [Mass/Vol] 150 mg/dL High 70 - 99 mg/dL [facility] Interpretation and review of laboratory results Abnormal [facility] Poc Sample Type CAPBL [facility] Test performed at ad dress of the patient encounter. [facility] Glucose [Mass/Vol] 225 mg/dL High 70 - 99 mg/dL [facility] Interpretation and review of laboratory results Abnormal [facility]oc Sample [facility] Test performed at ad dress of the patient encounter. [facility] Glucose [Mass/Vol] 257 mg/dL High 70 - 99 mg/dL [facility] Interpretation and review of laboratory results Abnormal [facility] Poc Sample Type [facility] Test performed at ad dress of the patient encounter. [facility] Glucose [Mass/Vol] 147 mg/dL High 70 - 99 mg/dL [facility] Interpretation and review of laboratory results Abnormal [facility] Poc Sample Type [facility] Test performed at ad dress of the patient encounter. [facility] MR Brain WO contraston 06-15 IMPRESSION: No [...] and sulci compatible with mild volume loss. [facility] Radiology Study observation (narrative) [facility] MR Brain WO contrastOrdered By: Zahra Brewer on 06-15-2021 [facility] Work Phone: MRI PLAIN FILM FOR NEURO [...] metallic implants within the chest or calvarium. [facility] MRI PLAIN FILM FOR NEURO EXA MOrdered By: Nicolas Garnett on 06-15-2021 [facility] Work Phone: PLATELET COUNTon 06-15-2021 Interpretation and review of laboratory results Normal [facility] Platelet mean volume (Bld) [Entitic vol] 11.3 fL 8.7 - 12.3 fL [facility] Platelets (Bld) [#/Vol] 153 10*3/uL 146 - 337 K/uL [facility] T. pallidum Ab Ql (S)Ordered By: Cici Rose on 06-15-2021 Interpretation and review of laboratory results Normal [facility] T. pallidum IgG Ql (S) Non-Reactive Non Reactive [facility] TACROLIMUS, RANDOMon 022 Interpretation and review of laboratory results Abnormal [facility] Tacrolimus (Bld) [Mass/Vol] 13.2 ng/mL High Bone Marrow Transplant : 4.0-12.0, Therapeuti c: 5.0-15.0 [facility] Method performed is a chemiluminescent microparticle immunoasssay on the [employer]. The range is based on experience at [facility] and users should be aware that target concentrations vary widely depending on concomitant therapy, time post-transplant, and desired degree of immunosuppression. [facility] VENOUS BLOOD GASon Base excess Calc (Bld) [Moles/Vol] -7.6000 mmol/L Low -3.0 - 3.0 mmol/L [facility] CO2 (Bld) [Partial pressure] 36 mm[Hg] [facility] HCO3 (Bld) [Moles/Vol] 19 mmol/L Low 22 - 29 mmol/L [facility] Interpretation and review of laboratory results Abnormal [facility] Oxygen (Bld) [Partial pressure] 43 mm[Hg] mm Hg [facility] Comment on above: Venous pO2 is not re commended for the evaluation of oxygen status, clinical correlation is recommended. Oxygen saturation in Blood 78 % 70 - 80 % [facility] pH (Bld) 7.32 [pH] [facility] CBC,PLATELETSon 06-14-2021 Erythrocyte distribution width (RBC) [Ratio] 13.9 % 10.9 - 14.3 % [facility] Hematocrit (Bld) [Volume fraction] 36.1 % Low 39.6 - 48.8 % [facility] Hemoglobin (Bld) [Mass/Vol] 11.6 g/dL Low 13.4 - 16.8 g/dL [facility] Interpretation and review of laboratory results Abnormal [facility] MCH (RBC) [Entitic mass] 30.7 pg 26.1 - 33.3 pg [facility] MCHC (RBC) [Mass/Vol] 32.1 g/dL 31.9 - 36.5 g/dL [facility] MCV (RBC) [Entitic vol] 95.5 fL High 79.0 - 94.5 fL [facility] Platelet mean volume (Bld) [Entitic vol] 11.0 fL 8.7 - 12.3 fL [facility] Platelets (Bld) [#/Vol] 159 10*3/uL 146 - 337 K/uL [facility] RBC (Bld) [#/Vol] 3.78 10*6/uL Low [facility] WBC (Bld) [#/Vol] 6.51 10*3/uL 3.73 - 10.10 K/uL [facility] CHEM 6 (LYTES, BUN CREA)on 0 06-14-2021 Anion gap [Moles/Vol] 12 mmol/L 7 - 17 mmol/L [facility] Chloride [Moles/Vol] 112 mmol/L High 98 - 10 8 mmol/L [facility] CO2 [Moles/Vol] 19 mmol/L Low 21 - 31 mmol/L [facility] Creatinine [Mass/Vol] 2.62 mg/dL High 0.70 - 1.30 mg/dL [facility] GFR/1.73 sq M.predicted CKD-EPI (S/P/Bld) [Vol rate/Area] 27 Low >=60 mL/min/1.7 3m2 [facility] Comment on above: Reported eGFR is bas ed on the CKD-EPI 2020 equation using creatinine, age, and sex. Interpretation and review of laboratory results Abnormal [facility] Potassium [Moles/Vol] 5.0 mmol/L 3.5 - 5.0 mmol/L [facility] Sodium [Moles/Vol] 138 mmol/L 135 - 145 mmol/L [facility] Urea nitrogen [Mass/Vol] 28 mg/dL High 7 - 25 mg/dL [facility] Urea nitrogen/Creatinine [Mass ratio] 11 mg/mg [facility] GLUCOSE POCon 06-14-2021 Glucose [Mass/Vol] 245 mg/dL High 70 - 99 mg/dL [facility] Interpretation and review of laboratory results Abnormal [facility] Poc Sample Type CAPBL [facility] Test performed at ad dress of the patient encounter. [facility] Glucose [Mass/Vol] 251 mg/dL High 70 - 99 mg/dL [facility] Interpretation and review of laboratory results Abnormal [facility] Poc Sample Type CAPBL [facility] Test performed at ad dress of the patient encounter. [facility] Glucose [Mass/Vol] 112 mg/dL High 70 - 99 mg/dL [facility] Interpretation and review of laboratory results Abnormal [facility] Poc Sample Type CAPBL [facility] Test performed at ad dress of the patient encounter. [facility] Glucose [Mass/Vol] 289 mg/dL High 70 - 99 mg/dL [facility] Interpretation and review of laboratory results Abnormal [facility] Poc Sample Type CAPBL [facility] Test performed at ad dress of the patient encounter. [facility] Glucose [Mass/Vol] 166 mg/dL High 70 - 99 mg/dL [facility] Interpretation and review of laboratory results Abnormal [facility] Poc Sample Type CAPBL [facility] Test performed at ad dress of the patient encounter. [facility] MRI PLAIN FILM FOR NEURO EXA 06-14-2021 Radiology Study observation (narrative) [facility] TACROLIMUS LEVEL, TROUGH (IA E DRUG LEVEL)on 06-14-2021 Interpretation and review of laboratory results Abnormal [facility] Tacrolimus (Bld) [Mass/Vol] 14.6 ng/mL High Bone Marrow Transplant : 4.0-12.0, Therapeuti c: 5.0-15.0 [facility] Method performed is a chemiluminescent microparticle immunoasssay on the [employer]. The range is based on experience at [facility] and users should be aware that target concentrations vary widely depending on concomitant therapy, time post-transplant, and desired degree of immunosuppression. [facility] URINALYSIS REFLEX TO CULTURE PERFORMABLEon 06-14-2021 Appearance (U) Clear Clear [facility] Bacteria LM Ql (Urine sed) ABSENT ABSENT [facility] Color (U) Yellow Yellow [facility] Glucose Test strip (U) [Mass/Vol] >=1000 mg/dL Abnormal Negative [facility] Interpretation and review of laboratory results Abnormal [facility] Ketones (U) [Mass/Vol] Negative Negative [facility] Leukocyte esterase Test strip Ql (U) Negative Negative [facility] Nitrite Ql (U) Negative Negative [facility] pH (U) 5.0 [pH] 5.0 - 7.0 [facility] Protein (U) [Mass/Vol] Trace Abnormal Negative [facility] RBC (U) [#/Vol] Negative Negative [facility] RBC LM.HPF (Urine sed) [#/Area] 0-2 0 - 2 /HPF [facility] Specific gravity (U) [Rel density] 1.026 [facility] Squamous/Epithelial Cells ABSENT 1/hpf = 1+, 2-5/hpf = 2+, 0/hpf = 0+, ABSENT [facility] Urobilinogen (U) [Mass/Vol] 0.2 E.U./dL 0.2 E.U/dL, 1.0 E.U/dL [facility] WBC LM.HPF (Urine sed) [#/Area] 0-5 0 - 5 /HPF [facility] EXTRA MICROon 06-13-2021 [facility] GLUCOSE POCon 06-13-2021 Glucose [Mass/Vol] 355 mg/dL High 70 - 99 mg/dL [facility] Interpretation and review of laboratory results Abnormal [facility] Poc Sample Type [facility] Test performed at ad dress of the patient encounter. [facility] Glucose [Mass/Vol] 294 mg/dL High 70 - 99 mg/dL [facility] Interpretation and review of laboratory results Abnormal [facility] Poc Sample Type CAPBL [facility] Test performed at ad dress of the patient encounter. [facility] Glucose [Mass/Vol] 180 mg/dL High 70 - 99 mg/dL [facility] Interpretation and review of laboratory results Abnormal [facility] Poc Sample Type CAPBL [facility] Test performed at ad dress of the patient encounter. [facility] HEMOGLOBIN [id number] By: Fr mehul Alvarez on 06-13-2021 Average glucose Estimated from glycated hemoglobin (Bld) [Mass/Vol] 123 mg/dL [facility] HbA1c (Bld) [Mass fraction] 5.9 % High 4.7 - 5.6 % [facility] Interpretation and review of laboratory results Abnormal [facility] TACROLIMUS LEVEL, TROUGH (IA E DRUG LEVEL)Ordered By: Phoebe Meredith on 06-13-2021 Interpretation and review of laboratory results Abnormal [facility] Tacrolimus (Bld) [Mass/Vol] 13.3 ng/mL High Bone Marrow Transplant : 4.0-12.0, Therapeuti c: 5.0-15.0 [facility] Method performed is a chemiluminescent microparticle immunoasssay on the [employer]. The range is based on experience at [facility] and users should be aware that target concentrations vary widely depending on concomitant therapy, time post-transplant, and desired degree of immunosuppression. [facility] CALCIUMon 06-12-2021 Calcium [Mass/Vol] 10.7 mg/dL High 8.6 - 10. 5 mg/dL [facility] CBC AND ELECTRONIC DIFFon Basophils (Bld) [#/Vol] 0.07 10*3/uL 0.00 - 0.09 K/uL [facility] Basophils/100 WBC (Bld) 1.2 % [facility] DIFF STATUS Electronic Differential [facility] Eosinophils (Bld) [#/Vol] 0.16 10*3/uL 0.00 - 0.48 K/uL [facility] Eosinophils/100 WBC (Bld) 2.7 % [facility] Erythrocyte distribution width (RBC) [Ratio] 14.0 % 10.9 - 14.3 % [facility] Hematocrit (Bld) [Volume fraction] 37.0 % Low 39.6 - 48.8 % [facility] Hemoglobin (Bld) [Mass/Vol] 12.0 g/dL Low 13.4 - 16.8 g/dL [facility] Immature granulocytes (Bld) [#/Vol] 0.05 10*3/uL <=0.08 [facility] Immature granulocytes/100 WBC (Bld) 0.8 % [facility] Interpretation and review of laboratory results Abnormal [facility] Lymphocytes (Bld) [#/Vol] 0.92 10*3/uL 0.83 - 3.57 K/uL [facility] Lymphocytes/100 WBC (Bld) 15.4 % [facility] MCH (RBC) [Entitic mass] 31.1 pg 26.1 - 33.3 pg [facility] MCHC (RBC) [Mass/Vol] 32.4 g/dL 31.9 - 36.5 g/dL [facility] MCV (RBC) [Entitic vol] 95.9 fL High 79.0 - 94.5 fL [facility] Monocytes (Bld) [#/Vol] 0.56 10*3/uL 0.24 - 0.93 K/uL [facility] Monocytes/100 WBC (Bld) 9.4 % [facility] Neutrophils (Bld) [#/Vol] 4.21 10*3/uL 1.57 - 6.19 K/uL [facility] Nucleated RBC/100 WBC (Bld) [Ratio] 0.0 % <=0.2 /100 WBC [facility] Platelet mean volume (Bld) [Entitic vol] 11.1 fL 8.7 - 12.3 fL [facility] Platelets (Bld) [#/Vol] 185 10*3/uL 146 - 337 K/uL [facility] RBC (Bld) [#/Vol] 3.86 10*6/uL Low [facility] Segmented neutrophils/100 WBC (Bld) 70.5 % [facility] WBC (Bld) [#/Vol] 5.97 10*3/uL 3.73 - 10.10 K/uL [facility] CHEM 7 (LYTES,BUN,CREA,GLUC) on 06-12-2021 Anion gap [Moles/Vol] 11 mmol/L 7 - 17 mmol/L [facility] Chloride [Moles/Vol] 112 mmol/L High 98 - 10 8 mmol/L [facility] CO2 [Moles/Vol] 20 mmol/L Low 21 - 31 mmol/L [facility] Creatinine [Mass/Vol] 2.41 mg/dL High 0.70 - 1.30 mg/dL [facility] GFR/1.73 sq M.predicted CKD-EPI (S/P/Bld) [Vol rate/Area] 30 Low >=60 mL/min/1.7 3m2 [facility] Comment on above: Reported eGFR is bas ed on the CKD-EPI 2020 equation using creatinine, age, and sex. Glucose [Mass/Vol] 199 mg/dL High 70 - 99 mg/dL [facility] Osmolality Calc [Osmolality] 306 High [facility] Potassium [Moles/Vol] 4.4 mmol/L 3.5 - 5.0 mmol/L [facility] Sodium [Moles/Vol] 139 mmol/L 135 - 145 mmol/L [facility] Urea nitrogen [Mass/Vol] 34 mg/dL High 7 - 25 mg/dL [facility] Urea nitrogen/Creatinine [Mass ratio] 14 mg/mg [facility] GLUCOSE POCon 06-12-2021 Glucose [Mass/Vol] 295 mg/dL High 70 - 99 mg/dL [facility] Interpretation and review of laboratory results Abnormal [facility] Poc Sample Type CAPBL [facility] Test performed at ad dress of the patient encounter. [facility] Glucose [Mass/Vol] 265 mg/dL High 70 - 99 mg/dL [facility] Interpretation and review of laboratory results Abnormal [facility] Poc Sample Type CAPBL [facility] Test performed at ad dress of the patient encounter. [facility] Glucose [Mass/Vol] 334 mg/dL High 70 - 99 mg/dL [facility] Interpretation and review of laboratory results Abnormal [facility] Poc Sample Type CAPBL [facility] Test performed at ad dress of the patient encounter. [facility] Glucose [Mass/Vol] 242 mg/dL High 70 - 99 mg/dL [facility] Interpretation and review of laboratory results Abnormal [facility] Poc Sample Type CAPBL [facility] Test performed at ad dress of the patient encounter. [facility] Glucose [Mass/Vol] 156 mg/dL High 70 - 99 mg/dL [facility] Interpretation and review of laboratory results Abnormal [facility] Poc Sample Type CAPBL [facility] Test performed at ad dress of the patient encounter. [facility] HEPATIC FUNCTION PANELon Albumin [Mass/Vol] 3.8 g/dL 3.5 - 5.0 g/dL [facility] ALP [Catalytic activity/Vol] 103 U/L 32 - 126 U/L [facility] ALT [Catalytic activity/Vol] 14 U/L 10 - 52 U/L [facility] AST [Catalytic activity/Vol] 11 U/L 10 - 39 U/L [facility] Bilirubin [Mass/Vol] 0.5 mg/dL <1.5 [facility] Bilirubin.direct [Mass/Vol] 0.1 mg/dL <0.3 [facility] Protein [Mass/Vol] 5.7 g/dL Low 6.4 - 8.3 g/dL [facility] MAGNESIUMon 06-12-2021 Magnesium [Mass/Vol] 1.5 mg/dL Low 1.6 - 2 .6 mg/dL [facility] No Panel Informationon 06-12 Interpretation and review of laboratory results Abnormal [facility] PHOSPHATE, INORGANICon 06-12 Interpretation and review of laboratory results Normal [facility] Phosphate [Mass/Vol] 2.3 mg/dL 2.2 - 4 .6 mg/dL [facility] PROCALCITONINOrdered By: Dennis Coreyt on 06-12-2021 Interpretation and review of laboratory results Normal [facility] Procalcitonin [Mass/Vol] 0.16 ng/mL <=0.50 [facility] Comment on above: Procalcitonin is an FDA-approved assay to help manage antibiotic treatment in patients with sepsis/septic shock and lower respiratory tract infections. Specifically, trending procalcitonin in these situations can be used to reduce the duration of antibiotics. Please refer to the Procalcitonin Guide on the Antimicrobial Stewardship Webpage for more guidance on how to use and trend procalcitonin in various clinical settings. [email or web address]/[email or web address]/Documents/[email or web address]&action=[email or web address]=1 Two common cutoffs associated with bacterial infections are as follows. Respiratory tract infections: >0.25 ng/mL Sepsis/septic shock: >0.5 ng/mL Procalcitonin should not be used alone as a diagnostic tool, however. All procalcitonin results should be interpreted in association with the patients clinical condition and all laboratory findings. [facility] PT,INR,PTTon 06-12-2021 aPTT Coag (PPP) [Time] 28.3 s [facility] INR Coag (Bld) [Relative time] 1.0 {INR} [facility] Interpretation and review of laboratory results Normal [facility] PT Coag (PPP) [Time] 13.5 s [facility] Portable XR Chest Viewson IMPRESSION: No acute [...] pneumothorax. IMPRESSION IMPRESSION: No acute cardiopulmonary disease [facility] Radiology Study observation (narrative) [facility] Portable XR Chest ViewsOrder ed By: Alden Pete on 06-12-2021 [facility] Work Phone: TACROLIMUS LEVEL, TROUGH (IA E DRUG LEVEL)on 06-12-2021 Interpretation and review of laboratory results Normal [facility] Tacrolimus (Bld) [Mass/Vol] 11.1 ng/mL Bone Marrow Transplant : 4.0-12.0, Therapeuti c: 5.0-15.0 [facility] Method performed is a chemiluminescent microparticle immunoasssay on the [employer] i2000. The range is based on experience at [facility] and users should be aware that target concentrations vary widely depending on concomitant therapy, time post-transplant, and desired degree of immunosuppression. [facility] TSH W/FT4 REFLEXon Interpretation and review of laboratory results Normal [facility] TSH Qn 1.449 m[IU]/L [facility] URINALYSIS REFLEX TO CULTURE PERFORMABLEon 06-12-2021 Appearance (U) Clear Clear [facility] Bacteria LM Ql (Urine sed) ABSENT ABSENT [facility] Color (U) Yellow Yellow [facility] Glucose Test strip (U) [Mass/Vol] >=1000 mg/dL Abnormal Negative [facility] Interpretation and review of laboratory results Abnormal [facility] Ketones (U) [Mass/Vol] Negative Negative [facility] Leukocyte esterase Test strip Ql (U) Negative Negative [facility] Nitrite Ql (U) Negative Negative [facility] pH (U) 5.0 [pH] 5.0 - 7.0 [facility] Protein (U) [Mass/Vol] 30 mg/dL Abnormal Negative [facility] RBC (U) [#/Vol] Negative Negative [facility] RBC LM.HPF (Urine sed) [#/Area] 0-2 0 - 2 /HPF [facility] Specific gravity (U) [Rel density] 1.017 [facility] Squamous/Epithelial Cells ABSENT 1/hpf = 1+, 2-5/hpf = 2+, 0/hpf = 0+, ABSENT [facility] Urobilinogen (U) [Mass/Vol] 0.2 E.U./dL 0.2 E.U/dL, 1.0 E.U/dL [facility] WBC LM.HPF (Urine sed) [#/Area] 0-5 0 - 5 /HPF [facility] VITAMIN [id number] By: Tiara teran on 06-12-2021 Cobalamin (Vitamin B12) [Mass/Vol] 1370 pg/mL High 211 - 911 pg/mL [facility] Comment on above: Testing of Methylmal onic Acid and Intrinsic Factor Blocking Antibody are recommended if clinical suspicion for pernicious anemia due to B12 deficiency is high for patients with intermediate B12 levels (211 to 400 pg/mL) to rule out spurious heterophile antibodies. Interpretation and review of laboratory results Abnormal [facility] Absolute lymphocyte counton 06-11-2021 Lymphocytes Auto (Unsp spec) [#/Vol] 0.87 10*3/uL 0.83-4.51 [facility] Work Phone: Basophil percentageon 2021 Basophils/100 WBC (Bld) 0.9 % 0-1 [facility] Work Phone: Bilirubin [Mass/Vol] 0.60 mg/dL 0.20-1.00 [facility] Work Phone: Comment on above: For patients on eltr ombopag therapy, use of Dimension [place] TBIL is not recommended. Chloride [Moles/Vol] 114 mmol/L 98-107 [facility] Work Phone: Eosinophils/100 WBC (Bld) 1.7 % 0-5 [facility] Work Phone: Glucose [Mass/Vol] 251 mg/dL 74-106 [facility] Work Phone: Comment on above: Glucose result great er than or equal to 200 mg/dLsuggests DIABETES MELLITUS per A.D.A. criteria. Neutrophils (Bld) [#/Vol] 4.8 10*3/uL 2.0-7.7 [facility] Work Phone: Neutrophils/100 WBC (Bld) 74.5 % 47-70 [facility] Work Phone: Potassium [Moles/Vol] 4.7 mmol/L 3.5-5.1 [facility] Work Phone: Protein [Mass/Vol] 5.8 g/dL 6.4-8.2 [facility] Work Phone: Sodium [Moles/Vol] 140 mmol/L 136-145 [facility] Work Phone: WBC (Bld) [#/Vol] 6.5 10*3/uL 4.4-11.0 [facility] Work Phone: Basophil percentage 0 SEEN /hpf 0-5 [facility] Work Phone: Bilirubin Test strip Ql (U)o n 06-11-2021 Bilirubin Ql (U) Negative Negative [facility] Work Phone: Blood erythrocytes count (nu mber/volume)on 06-11-2021 RBC (Bld) [#/Vol] 3.97 10*6/uL 4.6-6.2 [facility] Work Phone: [phone] Blood hemoglobin measurement (mass/volume)on 06-11-2021 Hemoglobin (Bld) [Mass/Vol] 12.6 g/dL 13.0-16.5 [facility] Work Phone: Blood lymphocytes/100 leukoc yteson 06-11-2021 Lymphocytes/100 WBC (Bld) 13.5 % 19-41 [facility] Work Phone: Blood monocytes/100 leukocyt eson 06-11-2021 Monocytes/100 WBC (Bld) 8.5 % 0-10 [facility] Work Phone: Blood platelet mean volumeon 06-11-2021 Platelet mean volume (Bld) [Entitic vol] 10.9 fL 6.2-12.0 [facility] Work Phone: Determination of erythrocyte mean corpuscular volume (MCV)on 06-11-2021 MCV (RBC) [Entitic vol] 95.5 fL 80-94 [facility] Work Phone: Glucose Glucometer (dC) [M ass/Vol]on 06-11-2021 Glucose [Mass/Vol] 302 mg/dL 74-106 [facility] Work Phone: Comment on above: MANAGEMENT OF PATIEN T CARE PER NURSING PROTOCOL Hematocrit Auto (Bld) [Volum e fraction]on 06-11-2021 Hematocrit (Bld) [Volume fraction] 37.9 % 40-54 [facility] Work Phone: Ketones Test strip Ql (U)on 06-11-2021 Ketones Ql (U) 5 mg/dl Negative [facility] Work Phone: Laboratory - Chemistry and C hemistry - challengeon 06-11-2021 ALP [Catalytic activity/Vol] 119 U/L 45-117 [facility] Work Phone: ALT [Catalytic activity/Vol] 25 U/L 16-61 [facility] Work Phone: CO2 [Moles/Vol] 18.0 mmol/L 21.0-32.0 [facility] Work Phone: Globulin (S) [Mass/Vol] 2.3 g/dL 2.2-4.2 [facility] Work Phone: Urea nitrogen/Creatinine [Mass ratio] 14.2 mg/mg 10-20 [facility] Work Phone: Laboratory - Hematology and Cell countson 06-11-2021 Erythrocyte distribution width (RBC) [Entitic vol] 48.6 fL 35.1-43.9 [facility] Work Phone: Erythrocyte distribution width (RBC) [Ratio] 13.7 % 11.6-14.6 [facility] Work Phone: Immature granulocytes/100 WBC (Bld) 0.900 % 0.0-0.9 [facility] Work Phone: Comment on above: IG% - Immature Granu locytes (promyelocytes, myelocytes and metamyelocytes) > 1% indicates that a LEFT SHIFT is Present. MCH (RBC) [Entitic mass] 31.7 pg 27.0-32.0 [facility] Work Phone: Nucleated RBC/100 WBC (Bld) [Ratio] 0 % 0-5 [facility] Work Phone: MCHC Auto (RBC) [Mass/Vol]on 06-11-2021 MCHC (RBC) [Mass/Vol] 33.2 g/dL 32-36 [facility] Work Phone: Mucus LM Ql (Urine sed)on Mucus Ql (Urine sed) 0 SEEN /hpf [facility] Work Phone: Nitrite Test strip Ql (U)on 06-11-2021 Nitrite Ql (U) Negative Negative [facility] Work Phone: No Panel Informationon 06-11 Estimated Creatinine Clearance Calc 33.66 ml/min [facility] Work Phone: Estimated GFR (MDRD) Amer 35 mL/min >60 [facility] Work Phone: Comment on above: GFR Calc Estimated GFR (MDRD) Non-Af Amer 29 mL/min >60 [facility] Work Phone: Comment on above: Non- GFR Calc Platelets bldon 06-11-2021 Platelets (Bld) [#/Vol] 185 10*3/uL 150-450 [facility] Work Phone: Protein Test strip Ql (U)on 06-11-2021 Protein Ql (U) 30 mg/dl Negative [facility] Work Phone: Serum or plasma albumin caity urement (mass/volume)on 06-11-2021 Albumin [Mass/Vol] 3.5 g/dL 3.2-5.0 [facility] Work Phone: Serum or plasma albumin/glob ulin mass ratioon 06-11-2021 Albumin/Globulin [Mass ratio] 1.5 {ratio} 0.9-2.4 [facility] Work Phone: Serum or plasma calcium caity urement (mass/volume)on 06-11-2021 Calcium [Mass/Vol] 10.5 mg/dL 8.5-10.1 [facility] Work Phone: Serum or plasma creatinine m easurement (mass/volume)on 06-11-2021 Creatinine [Mass/Vol] 2.47 mg/dL 0.70-1.30 [facility] Work Phone: Comment on above: The validity of the calculated GFR & GFRAA in patients over 70 years has not been determined. Clinical correlation is essential. Serum or plasma urea nitroge n measurement (mass/volume)on 06-11-2021 Urea nitrogen [Mass/Vol] 35 mg/dL 7-18 [facility] Work Phone: Squamous epithelial cells de tection in urine sediment by light microscopyon 06-11-2021 Epithelial cells.squamous LM Ql (Urine sed) 0 SEEN /hpf 0-5 [facility] Work Phone: Thin prep Papanicolaou smear with manual screeningon 06-11-2021 Thin prep Papanicolaou smear with manual screening 10 U/L 15-37 [facility] Work Phone: Thin prep Papanicolaou smear with manual screening 8 5-15 [facility] Work Phone: Urine blood detectionon 05-31 RBC Ql (U) Negative Negative [facility] Work Phone: RBC Ql (U) 0 SEEN /hpf 0-5 [facility] Work Phone: Urine clarityon 06-11-2021 Clarity (U) Clear Clear [facility] Work Phone: Urine color determinationon 06-11-2021 Color (U) Yellow Yellow [facility] Work Phone: Urine glucose detectionon Glucose Ql (U) 1000 mg/dl Normal [facility] Work Phone: Urine leukocyte esterase det ection by dipstickon 06-11-2021 Leukocyte esterase Test strip Ql (U) Negative Negative [facility] Work Phone: Urine pHon 06-11-2021 pH (U) 5.0 [pH] 5.0 - 8.0 [facility] Work Phone: Urine sediment bacteria coun t by microscopy (number/high power field)on 06-11-2021 Bacteria LM.HPF (Urine sed) [#/Area] 0 /[HPF] None Seen [facility] Work Phone: Urine specific gravity measu rementon 06-11-2021 Specific gravity (U) [Rel density] 1.015 1.002-1.03 0 [facility] Work Phone: Urobilinogen Auto test strip Ql (U)on 06-11-2021 Urobilinogen Ql (U) Normal mg/dl Normal [facility] Work Phone: No Panel Informationon 06-10 D-Dimer Quantitative (PE/DVT) 0.50 FEU/ug/m 0.27-0.49 [facility] Work Phone: Comment on above: D-Dimer ELEVATED (>0 .49): Additional studies and clinicalassessments are indicated to conclude diagnosis of:Deep Vein Thrombosis (DVT) or Pulmonary Embolism (PE)CRITICAL VALUE VERIFIED. CALLED TO Ana Luias PRINCE RN ER06/10/21 0224 Joe Pena.RESULTS READ BACK BY SAME. Serum procalcitonin measurem enton 06-10-2021 Procalcitonin [Mass/Vol] 0.33 ng/mL 0.00-0.09 [facility] Work Phone: Comment on above: A procalcitonin [...] [Mass/Vol] 4.1 g/dL Normal 3.4 - 5.0 [facility] Comment on above: Performed By: #### M DIFF #### [place] [id number] ALKALINE PHOSPHATASEon 06-09 ALP [Catalytic activity/Vol] 110 U/L Normal 33 - 120 [facility] Comment on above: Performed By: #### A P #### [address] [address] Zay 06-09-2021 ALT [Catalytic activity/Vol] 20 U/L Normal 10 - 52 [facility] Comment on above: Result Comment: Lila ents treated with Sulfasalazine may generate falsely decreased results for ALT. Performed By: #### M DIFF #### [address] [address] [place] 06-09-2021 AST [Catalytic activity/Vol] 14 U/L Normal 9 - 39 [facility] Comment on above: Performed By: #### A P #### [address] [address] Absolute lymphocyte counton 06-09-2021 Lymphocytes Auto (Unsp spec) [#/Vol] 1.16 10*3/uL 0.83-4.51 [facility] Work Phone: BASIC METABOLIC PANELon 05-31 Anion gap [Moles/Vol] 12 mmol/L Normal 10 - 20 [facility] Comment on above: Performed By: #### B MP #### [address] [address] Calcium [Mass/Vol] 11.3 mg/dL High 8.6 - 10.3 [facility] Comment on above: Performed By: #### B MP #### [address] [address] Chloride [Moles/Vol] 108 mmol/L High 98 - 107 [facility] Comment on above: Performed By: #### B MP #### [address] [address] Creatinine [Mass/Vol] 3.10 mg/dL High 0.50 - 1.30 [facility] Comment on above: Performed By: #### B MP #### [address] [address] GFR/1.73 sq M.predicted among non-blacks MDRD (S/P/Bld) [Vol rate/Area] 22 mL/min/{1.73_m2} Abnormal >90 [facility] Comment on above: Result Comment: CALC ULATIONS OF ESTIMATED GFR ARE PERFORMED USING THE 2020 CKD-EPI STUDY REFIT EQUATION WITHOUT THE RACE VARIABLE FOR THE IDMS-TRACEABLE CREATININE METHODS. https://jasn.asnjournals.org/content/early//ASN.15628 33313 Performed By: #### B MP #### [address] [address] Glucose [Mass/Vol] 223 mg/dL High 74 - 99 [facility] Comment on above: Performed By: #### B MP #### [address] [address] HCO3 (Bld) [Moles/Vol] 21 mmol/L Normal 21 - 32 [facility] Comment on above: Performed By: #### B MP #### [address] [address] Potassium [Moles/Vol] 4.8 mmol/L Normal 3.5 - 5.3 [facility] Comment on above: Performed By: #### B MP #### [address] [address] Sodium [Moles/Vol] 136 mmol/L Normal 136 - 145 [facility] Comment on above: Performed By: #### B MP #### [address] [address] Urea nitrogen [Mass/Vol] 38 mg/dL High 6 - 23 [facility] Comment on above: Performed By: #### B MP #### [address] [address] BILIRUBIN,TOTALon 06-09-2021 Bilirubin [Mass/Vol] 0.6 mg/dL Normal 0.0 - 1.2 [facility] Comment on above: Performed By: #### A P #### [address] [address] Basophil percentageon 2021 Basophils/100 WBC (Bld) 0.8 % 0-1 [facility] Work Phone: Chloride [Moles/Vol] 107 mmol/L 98-107 [facility] Work Phone: Eosinophils/100 WBC (Bld) 1.7 % 0-5 [facility] Work Phone: Glucose [Mass/Vol] 226 mg/dL 74-106 [facility] Work Phone: Comment on above: Glucose result great er than or equal to 200 mg/dLsuggests DIABETES MELLITUS per A.D.A. criteria. Neutrophils (Bld) [#/Vol] 5.5 10*3/uL 2.0-7.7 [facility] Work Phone: Neutrophils/100 WBC (Bld) 72.7 % 47-70 [facility] Work Phone: Potassium [Moles/Vol] 4.8 mmol/L 3.5-5.1 [facility] Work Phone: Sodium [Moles/Vol] 136 mmol/L 136-145 [facility] Work Phone: WBC (Bld) [#/Vol] 7.6 10*3/uL 4.4-11.0 [facility] Work Phone: Blood erythrocytes count (nu mber/volume)on 06-09-2021 RBC (Bld) [#/Vol] 3.97 10*6/uL 4.6-6.2 [facility]: Blood hemoglobin measurement (mass/volume)on 06-09-2021 Hemoglobin (Bld) [Mass/Vol] 12.5 g/dL 13.0-16.5 [facility] Work Phone: Blood lymphocytes/100 leukoc yteson 06-09-2021 Lymphocytes/100 WBC (Bld) 15.3 % 19-41 [facility] Work Phone: Blood monocytes/100 leukocyt eson 06-09-2021 Monocytes/100 WBC (Bld) 8.3 % 0-10 [facility] Work Phone: Blood platelet mean volumeon 06-09-2021 Platelet mean volume (Bld) [Entitic vol] 10.8 fL 6.2-12.0 [facility] Work Phone: [phone] CBC AND DIFFERENTIALon 06-09 DIFFERENTIAL SEE MANUAL DIFF Normal [facility] Comment on above: Performed By: #### C BCDF #### [place] [id number] [place] [address] Erythrocyte distribution width (RBC) [Ratio] 14.5 % Normal 11.5 - 14.5 [facility] Comment on above: Performed By: #### C BCDF #### [address] [address] Hematocrit (Bld) [Volume fraction] 38.4 % Low 41.0 - 52.0 [facility] Comment on above: Performed By: #### C BCDF #### [address] [address] Hemoglobin (Bld) [Mass/Vol] 12.8 g/dL Low 13.5 - 17.5 [facility] Comment on above: Performed By: #### C BCDF #### [address] [address] MCHC (RBC) [Mass/Vol] 33.2 g/dL Normal 32.0 - 36.0 [facility] Comment on above: Performed By: #### C BCDF #### [address] [address] MCV (RBC) [Entitic vol] 94 fL Normal 80 - 100 [facility] Comment on above: Performed By: #### C BCDF #### [address] [address] Platelets (Bld) [#/Vol] 207 10*3/uL Normal 150 - 450 [facility] Comment on above: Performed By: #### C BCDF #### [address] [address] RBC 4.11 x10E12/L Low 4.50 - 5.90 [facility] Comment on above: Performed By: #### C BCDF #### [address] [address] WBC (Bld) [#/Vol] 8.7 10*3/uL Normal 4.4 - 11.3 [facility] Comment on above: Performed By: #### C BCDF #### [address] [address] Determination of erythrocyte mean corpuscular volume (MCV)on 06-09-2021 MCV (RBC) [Entitic vol] 96.7 fL 80-94 [facility] Work Phone: Direct bilirubinon 2 Bilirubin.direct [Mass/Vol] 0.17 mg/dL 0.00-0.30 [facility] Work Phone: Glucose Glucometer (BldC) [M ass/Vol]on 06-09-2021 Glucose [Mass/Vol] 374 mg/dL 74-106 [facility] Work Phone: Comment on above: MANAGEMENT OF PATIEN T CARE PER NURSING PROTOCOL Hematocrit Auto (Bld) [Volum e fraction]on 06-09-2021 Hematocrit (Bld) [Volume fraction] 38.4 % 40-54 [facility] Work Phone: Laboratory - Chemistry and C hemistry - challengeon 06-09-2021 Natriuretic peptide B (Bld) [Mass/Vol] 81.2 pg/mL 0-100 [facility] Work Phone: CO2 [Moles/Vol] 24.0 mmol/L 21.0-32.0 [facility] Work Phone: Urea nitrogen/Creatinine [Mass ratio] 13.0 mg/mg 10-20 [facility] Work Phone: Laboratory - Hematology and Cell countson 06-09-2021 Erythrocyte distribution width (RBC) [Entitic vol] 50.4 fL 35.1-43.9 [facility] Work Phone: Erythrocyte distribution width (RBC) [Ratio] 14.1 % 11.6-14.6 [facility] Work Phone: Immature granulocytes/100 WBC (Bld) 1.200 % 0.0-0.9 [facility] Work Phone: Comment on above: IG% - Immature Granu locytes (promyelocytes, myelocytes and metamyelocytes) > 1% indicates that a LEFT SHIFT is Present. MCH (RBC) [Entitic mass] 31.5 pg 27.0-32.0 [facility] Work Phone: Nucleated RBC/100 WBC (Bld) [Ratio] 0 % 0-5 [facility] Work Phone: MAGNESIUMon 06-09-2021 Magnesium [Mass/Vol] 1.51 mg/dL Low 1.60 - 2.40 [facility] Comment on above: Performed By: #### M G #### [address] [address] MANUAL DIFFERENTIALon 2021 % BAND NEUTROPHIL 13.0 % Abnormal 0.0 - 5.0 [facility] Comment on above: Performed By: #### M DIFF #### [address] [address] % BASOPHIL 0.0 % Normal 0.0 - 2.0 [facility] Comment on above: Performed By: #### M DIFF #### [address] [address] % EOSINOPHIL 1.0 % Normal 0.0 - 6.0 [facility] Comment on above: Performed By: #### M DIFF #### [address] [address] % LYMPH-ATYPICAL 1.0 % Normal 0.0 - 2.0 [facility] Comment on above: Performed By: #### M DIFF #### [address] [address] % LYMPHOCYTE 12.0 % Normal 13.0 - 44.0 [facility] Comment on above: Performed By: #### M DIFF #### [address] [address] % MONOCYTE 5.0 % Normal 2.0 - 10.0 [facility] Comment on above: Performed By: #### M DIFF #### [address] [address] % MYELOCYTE 1.0 % Normal 0.0 - 0.0 [facility] Comment on above: Performed By: #### M DIFF #### [address] [address] % SEG NEUTROPHIL 67.0 % Normal 40.0 - 80.0 [facility] Comment on above: Result Comment: Perc ent differential counts (%) should be interpreted in the context of the absolute cell counts (cells/L). Performed By: #### M DIFF #### [address] [address] ANC 6.96 x10E9/L Normal 1.20 - 7.70 [facility] Comment on above: Performed By: #### M DIFF #### [address] [address] BAND NEUTROPHIL 1.13 x10E9/L High 0.00 - 0.70 [facility] Comment on above: Performed By: #### M DIFF #### [address] [address] BASOPHIL 0.00 x10E9/L Normal 0.00 - 0.10 [facility] Comment on above: Performed By: #### M DIFF #### [address] [address] EOSINOPHIL 0.09 x10E9/L Normal 0.00 - 0.70 [facility] Comment on above: Performed By: #### M DIFF #### [address] [address] LYMPH-ATYPICAL 0.09 x10E9/L Normal 0.00 - 0.50 [facility] Comment on above: Performed By: #### M DIFF #### [address] [address] LYMPHOCYTE 1.04 x10E9/L Low 1.20 - 4.80 [facility] Comment on above: Performed By: #### M DIFF #### [address] [address] MONOCYTE 0.44 x10E9/L Normal 0.10 - 1.00 [facility] Comment on above: Performed By: #### M DIFF #### [address] [address] MYELOCYTE 0.09 x10E9/L Abnormal 0.00 - 0.00 [facility] Comment on above: Performed By: #### M DIFF #### [address] [address] SEG NEUTROPHIL 5.83 x10E9/L Normal 1.20 - 7.00 [facility] Comment on above: Performed By: #### M DIFF #### [address] [address] MCHC Auto (RBC) [Mass/Vol]on 06-09-2021 MCHC (RBC) [Mass/Vol] 32.6 g/dL 32-36 [facility] Work Phone: No Panel Informationon 06-09 Estimated Creatinine Clearance Calc 27.81 ml/min [facility] Work Phone: Estimated GFR (MDRD) Amer 28 mL/min >60 [facility] Work Phone: Comment on above: GFR Calc Estimated GFR (MDRD) Non-Af Amer 23 mL/min >60 [facility] Work Phone: Comment on above: Non- GFR Calc PHOSPHORUSon 06-09-2021 Phosphate [Mass/Vol] 2.2 mg/dL Low 2.5 - 4.9 [facility] Comment on above: Result Comment: The performance characteristics of phosphorus testing in heparinized plasma have been validated by the individual laboratory site where testing is performed. Testing on heparinized plasma is not approved by the FDA; however, such approval is not necessary. Performed By: #### M DIFF #### [address] [address] Platelets bldon 06-09-2021 Platelets (Bld) [#/Vol] 185 10*3/uL 150-450 [facility] Work Phone: RED CELL MORPHOLOGYon 2021 RBC morphology finding Nom (Bld) NORMAL Normal [facility] Comment on above: Performed By: #### M DIFF #### [address] [address] Serum or plasma C reactive p rotein measurement (mass/volume)on 06-09-2021 CRP [Mass/Vol] mg/L 0.0-3.0 [facility] Work Phone: Comment on above: C-Reactive Protein ( CRP) provides useful information for thediagnosis, therapy and monitoring of inflammatory processesand associated diseases. For the evaluation of Relative Riskfor Cardiovascular Disease, a High Sensitivity CRP (HSCRP)should be ordered. Serum or plasma calcium caity urement (mass/volume)on 06-09-2021 Calcium [Mass/Vol] 10.7 mg/dL 8.5-10.1 [facility] Work Phone: Serum or plasma creatinine m easurement (mass/volume)on 06-09-2021 Creatinine [Mass/Vol] 2.99 mg/dL 0.70-1.30 [facility] Work Phone: Comment on above: The validity of the calculated GFR & GFRAA in patients over 70 years has not been determined. Clinical correlation is essential. Serum or plasma ferritin linda surement (mass/volume)on 06-09-2021 Ferritin [Mass/Vol] 454 ng/mL 26-388 [facility] Work Phone: Serum or plasma urea nitroge n measurement (mass/volume)on 06-09-2021 Urea nitrogen [Mass/Vol] 39 mg/dL 7-18 [facility] Work Phone: TACROLIMUSon 06-09-2021 Tacrolimus (Bld) [Mass/Vol] 13.6 ng/mL Normal 2.0 - 15.0 [facility] Comment on above: Result Comment: NOTE : Result was obtained using a chemiluminescent microparticle immunoassay (CMIA) on the [employer] i system. Optimal therapeutic ranges for immuno- suppressant drugs depend upon an individual patient's current clinical state, type of organ transplant, time post-transplant, co-administration of other immunosuppressants, and other clinical factors. The results of this test should be correlated with additional clinical and laboratory data before changes in treatment regimens are made. Performed By: #### A P #### [id number] [place] [address] Thin prep Papanicolaou smear with manual screeningon 06-09-2021 Thin prep Papanicolaou smear with manual screening 240 U/L 87-241 [facility] Work Phone: Thin prep Papanicolaou smear with manual screening 5 5-15 [facility] Work Phone: Electrocardiogram 12 Leadon 06-08-2021 Electrocardiogram 12 Lead Ventricular Rate 77 Atrial Rate 77 P-R Interval 196 QRS Duration 100 Q-T Interval 380 QTC Calculation(Bazett) 430 P [place] 38 R [place] -80 T [place] 82 QRS Count 13 Q Onset 209 P Onset 111 P Offset 171 T Offset 399 QTC Fredericia 412 Diagnosis Class Normal Diagnosis Please see physician note for formal interpretation confirmed by Scribe Confirmed by EVI MONGE () on 06/14/2021 10:43:43 AM Normal [facility] ALBUMINon 06-06-2021 Albumin [Mass/Vol] 4.0 g/dL Normal 3.4 - 5.0 [facility] Comment on above: Performed By: #### C BCDF #### [address] [address] ALKALINE PHOSPHATASEon 06-06 ALP [Catalytic activity/Vol] 102 U/L Normal 33 - 120 [facility] Comment on above: Performed By: #### T BILI #### [address] [address] Zay 06-06-2021 ALT [Catalytic activity/Vol] 16 U/L Normal 10 - 52 [facility] Comment on above: Result Comment: Lila ents treated with Sulfasalazine may generate falsely decreased results for ALT. Performed By: #### A LT #### [address] [address] Flavia 06-06-2021 AST [Catalytic activity/Vol] 12 U/L Normal 9 - 39 [facility] Comment on above: Performed By: #### C BCDF #### [address] [address] BASIC METABOLIC PANELon 03-0 Anion gap [Moles/Vol] 12 mmol/L Normal 10 - 20 [facility] Comment on above: Performed By: #### M DIFF #### [address] [address] Calcium [Mass/Vol] 11.4 mg/dL High 8.6 - 10.3 [facility] Comment on above: Performed By: #### M DIFF #### [address] [address] Chloride [Moles/Vol] 108 mmol/L High 98 - 107 [facility] Comment on above: Performed By: #### M DIFF #### [address] [address] Creatinine [Mass/Vol] 3.44 mg/dL High 0.50 - 1.30 [facility] Comment on above: Performed By: #### M DIFF #### [address] [address] GFR/1.73 sq M.predicted among non-blacks MDRD (S/P/Bld) [Vol rate/Area] 20 mL/min/{1.73_m2} Abnormal >90 [facility] Comment on above: Result Comment: CALC ULATIONS OF ESTIMATED GFR ARE PERFORMED USING THE 2020 CKD-EPI STUDY REFIT EQUATION WITHOUT THE RACE VARIABLE FOR THE IDMS-TRACEABLE CREATININE METHODS. https://jasn.asnjournals.org/content/early/ASN.24766 [address]442 Performed By: #### M DIFF #### [address] [address] Glucose [Mass/Vol] 247 mg/dL High 74 - 99 [facility] Comment on above: Performed By: #### M DIFF #### [address] [address] HCO3 (Bld) [Moles/Vol] 21 mmol/L Normal 21 - 32 [facility] Comment on above: Performed By: #### M DIFF #### [address] [address] Potassium [Moles/Vol] 5.3 mmol/L Normal 3.5 - 5.3 [facility] Comment on above: Performed By: #### M DIFF #### [address] [address] Sodium [Moles/Vol] 136 mmol/L Normal 136 - 145 [facility] Comment on above: Performed By: #### M DIFF #### [address] [address] Urea nitrogen [Mass/Vol] 40 mg/dL High 6 - 23 [facility] Comment on above: Performed By: #### M DIFF #### [address] [address] BILIRUBIN,TOTALon 06-06-2021 Bilirubin [Mass/Vol] 0.6 mg/dL Normal 0.0 - 1.2 [facility] Comment on above: Performed By: #### T BILI #### [address] [address] CBC AND DIFFERENTIALon 06-06 DIFFERENTIAL SEE MANUAL DIFF Normal [facility] Comment on above: Performed By: #### T BILI #### [address] [address] Erythrocyte distribution width (RBC) [Ratio] 14.8 % High 11.5 - 14.5 [facility] Comment on above: Performed By: #### T BILI #### [address] [address] Hematocrit (Bld) [Volume fraction] 38.8 % Low 41.0 - 52.0 [facility] Comment on above: Performed By: #### T BILI #### [address] [address] Hemoglobin (Bld) [Mass/Vol] 12.8 g/dL Low 13.5 - 17.5 [facility] Comment on above: Performed By: #### T BILI #### [address] [address] MCHC (RBC) [Mass/Vol] 33.0 g/dL Normal 32.0 - 36.0 [facility] Comment on above: Performed By: #### T BILI #### [address] [address] MCV (RBC) [Entitic vol] 94 fL Normal 80 - 100 [facility] Comment on above: Performed By: #### T BILI #### [address] [address] NUCLEATED RBC 0.1 /100 WBC Normal [facility] Comment on above: Performed By: #### T BILI #### [address] [address] Platelets (Bld) [#/Vol] 210 10*3/uL Normal 150 - 450 [facility] Comment on above: Performed By: #### T BILI #### [address] [address] RBC 4.12 x10E12/L Low 4.50 - 5.90 [facility] Comment on above: Performed By: #### T BILI #### [address] [address] WBC (Bld) [#/Vol] 8.6 10*3/uL Normal 4.4 - 11.3 [facility] Comment on above: Performed By: #### T BILI #### [address] [address] MAGNESIUMon 06-06-2021 Magnesium [Mass/Vol] 1.79 mg/dL Normal 1.60 - 2.40 [facility] Comment on above: Performed By: #### C BCDF #### [address] [address] MANUAL DIFFERENTIALon 2021 % BAND NEUTROPHIL 13.0 % Abnormal 0.0 - 5.0 [facility] Comment on above: Performed By: #### T BILI #### [address] [address] % BASOPHIL 0.0 % Normal 0.0 - 2.0 [facility] Comment on above: Performed By: #### T BILI #### [address] [address] % EOSINOPHIL 2.0 % Normal 0.0 - 6.0 [facility] Comment on above: Performed By: #### T BILI #### [address] [address] % LYMPHOCYTE 16.0 % Normal 13.0 - 44.0 [facility] Comment on above: Performed By: #### T BILI #### [address] [address] % METAMYELOCYTE 1.0 % Normal 0.0 - 0.0 [facility] Comment on above: Performed By: #### T BILI #### [address] [address] % MONOCYTE 5.0 % Normal 2.0 - 10.0 [facility] Comment on above: Performed By: #### T BILI #### [address] [address] % SEG NEUTROPHIL 63.0 % Normal 40.0 - 80.0 [facility] Comment on above: Result Comment: Perc ent differential counts (%) should be interpreted in the context of the absolute cell counts (cells/L). Performed By: #### T BILI #### [address] [address] ANC 6.54 x10E9/L Normal 1.20 - 7.70 [facility] Comment on above: Performed By: #### T BILI #### [address] [address] BAND NEUTROPHIL 1.12 x10E9/L High 0.00 - 0.70 [facility] Comment on above: Performed By: #### T BILI #### [address] [address] BASOPHIL 0.00 x10E9/L Normal 0.00 - 0.10 [facility] Comment on above: Performed By: #### T BILI #### [address] [address] EOSINOPHIL 0.17 x10E9/L Normal 0.00 - 0.70 [facility] Comment on above: Performed By: #### T BILI #### [address] [address] LYMPHOCYTE 1.38 x10E9/L Normal 1.20 - 4.80 [facility] Comment on above: Performed By: #### T BILI #### [address] [address] METAMYELOCYTE 0.09 x10E9/L Abnormal 0.00 - 0.00 [facility] Comment on above: Performed By: #### T BILI #### [address] [address] MONOCYTE 0.43 x10E9/L Normal 0.10 - 1.00 [facility] Comment on above: Performed By: #### T BILI #### [address] [address] SEG NEUTROPHIL 5.42 x10E9/L Normal 1.20 - 7.00 [facility] Comment on above: Performed By: #### T BILI #### [address] [address] PHOSPHORUSon 06-06-2021 Phosphate [Mass/Vol] 2.7 mg/dL Normal 2.5 - 4.9 [facility] Comment on above: Result Comment: The performance characteristics of phosphorus testing in heparinized plasma have been validated by the individual laboratory site where testing is performed. Testing on heparinized plasma is not approved by the FDA; however, such approval is not necessary. Performed By: #### T BILI #### [address] [address] RED CELL MORPHOLOGYon 2021 RBC morphology finding Nom (Bld) NORMAL Normal [facility] Comment on above: Performed By: #### T BILI #### [address] [address] TACROLIMUSon 06-06-2021 Tacrolimus (Bld) [Mass/Vol] 27.0 ng/mL Critically high 2.0 - 15.0 [facility] Comment on above: Order Comment: CRIT [id number] CALLED TO GISSELL SIMPSON, 06/06/2021 19:40 Result Comment: NOTE : Result was obtained using a chemiluminescent microparticle immunoassay (CMIA) on the [employer] system. Optimal therapeutic ranges for immuno- [...] SIMPSON, 06/06/2021 19:40 Performed By: #### T BILI #### [address] [address] BK VIRUS BY PCR,QUANT,PLASMA on 06-03-2021 BK VIRUS PCR QUANT Not detected Normal [facility] Comment on above: Result Comment: Ty blancas onvert IU/ml to copies/ml multiply by 3.124 Ref Value Not Detected Performed By: #### C BCDF #### [address] [address] BK VIRUS,PCR Not Calculated Normal [facility] Comment on above: Result Comment: Repo rtable range: 500-20,000,000 IU/mL The BK VIRUS DNA Quantitative test is a PCR assay targeting the VP2 gene using [employer] ASR reagents. The limit of quantification for [...] [facility], Department of Pathology, [place], [place]. It has not been cleared or approved by the [place] Food and Drug Administration. The FDA has determined that such clearance is not necessary. It should not be regarded as investigational or for research use. Performed By: #### C BCDF #### [address] [address] ALBUMINon 06-02-2021 Albumin [Mass/Vol] 4.0 g/dL Normal 3.4 - 5.0 [facility] Comment on above: Performed By: #### M DIFF #### [address] [address] ALKALINE PHOSPHATASEon 06-02 ALP [Catalytic activity/Vol] 102 U/L Normal 33 - 120 [facility] Comment on above: Performed By: #### M DIFF #### [address] [address] Zay 06-02-2021 ALT [Catalytic activity/Vol] 14 U/L Normal 10 - 52 [facility] Comment on above: Result Comment: Lila ents treated with Sulfasalazine may generate falsely decreased results for ALT. Performed By: #### A LT #### [address] [address] Flavia 06-02-2021 AST [Catalytic activity/Vol] 12 U/L Normal 9 - 39 [facility] Comment on above: Performed By: #### T BILI #### [address] [address] BASIC METABOLIC PANELon Anion gap [Moles/Vol] 9 mmol/L Low 10 - 20 [facility] Comment on above: Performed By: #### B MP #### [address] [address] Calcium [Mass/Vol] 11.0 mg/dL High 8.6 - 10.3 [facility] Comment on above: Performed By: #### B MP #### [address] [address] Chloride [Moles/Vol] 110 mmol/L High 98 - 107 [facility] Comment on above: Performed By: #### B MP #### [address] [address] Creatinine [Mass/Vol] 2.70 mg/dL High 0.50 - 1.30 [facility] Comment on above: Performed By: #### B MP #### [address] [address] GFR/1.73 sq M.predicted among non-blacks MDRD (S/P/Bld) [Vol rate/Area] 26 mL/min/{1.73_m2} Abnormal >90 [facility] Comment on above: Result Comment: CALC ULATIONS OF ESTIMATED GFR ARE PERFORMED USING THE 2020 CKD-EPI STUDY REFIT EQUATION WITHOUT THE RACE VARIABLE FOR THE IDMS-TRACEABLE CREATININE METHODS. https://jasn.asnjournals.org/content/early//ASN.23761 46532 Performed By: #### B MP #### [address] [address] Glucose [Mass/Vol] 88 mg/dL Normal 74 - 99 [facility] Comment on above: Performed By: #### B MP #### [address] [address] HCO3 (Bld) [Moles/Vol] 24 mmol/L Normal 21 - 32 [facility] Comment on above: Performed By: #### B MP #### [address] [address] Potassium [Moles/Vol] 4.7 mmol/L Normal 3.5 - 5.3 [facility] Comment on above: Performed By: #### B MP #### [address] [address] Sodium [Moles/Vol] 138 mmol/L Normal 136 - 145 [facility] Comment on above: Performed By: #### B MP #### [address] [address] Urea nitrogen [Mass/Vol] 32 mg/dL High 6 - 23 [facility] Comment on above: Performed By: #### B MP #### [address] [address] BILIRUBIN,TOTALon 06-02-2021 Bilirubin [Mass/Vol] 0.6 mg/dL Normal 0.0 - 1.2 [facility] Comment on above: Performed By: #### T BILI #### [address] [address] CBC AND DIFFERENTIALon 06-02 DIFFERENTIAL SEE MANUAL DIFF Normal [facility] Comment on above: Performed By: #### M DIFF #### [address] [address] Erythrocyte distribution width (RBC) [Ratio] 14.8 % High 11.5 - 14.5 [facility] Comment on above: Performed By: #### M DIFF #### [address] [address] Hematocrit (Bld) [Volume fraction] 38.9 % Low 41.0 - 52.0 [facility] Comment on above: Performed By: #### M DIFF #### [address] [address] Hemoglobin (Bld) [Mass/Vol] 12.8 g/dL Low 13.5 - 17.5 [facility] Comment on above: Performed By: #### M DIFF #### [address] [address] MCHC (RBC) [Mass/Vol] 33.0 g/dL Normal 32.0 - 36.0 [facility] Comment on above: Performed By: #### M DIFF #### [address] [address] MCV (RBC) [Entitic vol] 94 fL Normal 80 - 100 [facility] Comment on above: Performed By: #### M DIFF #### [address] [address] NUCLEATED RBC 0.1 /100 WBC Normal [facility] Comment on above: Performed By: #### M DIFF #### [address] [address] Platelets (Bld) [#/Vol] 227 10*3/uL Normal 150 - 450 [facility] Comment on above: Performed By: #### M DIFF #### [address] [address] RBC 4.13 x10E12/L Low 4.50 - 5.90 [facility] Comment on above: Performed By: #### M DIFF #### [address] [address] WBC (Bld) [#/Vol] 8.3 10*3/uL Normal 4.4 - 11.3 [facility] Comment on above: Performed By: #### M DIFF #### [address] [address] FERRITINon 06-02-2021 FERRITIN 489 ug/L High 20 - 300 [facility] Comment on above: Performed By: #### M DIFF #### [address] [address] IRON + TIBCon 06-02-2021 % SATURATION 40 % Normal 25 - 45 [facility] Comment on above: Performed By: #### C BCDF #### [address] [address] Iron [Mass/Vol] 87 ug/dL Normal 35 - 150 [facility] Comment on above: Performed By: #### C BCDF #### [address] [address] TIBC 219 ug/dL Low 240 - 445 [facility] Comment on above: Performed By: #### C BCDF #### [address] [address] LIPID PANEL (CORONARY RISK 2 )on 06-02-2021 Cholesterol [Mass/Vol] 90 mg/dL Normal 0 - 199 [facility] Comment on above: Result Comment: . [...] dosing. Performed By: #### C BCDF #### [address] [address] Cholesterol in HDL [Mass/Vol] 38.0 mg/dL Abnormal [facility] Comment on above: Result Comment: . AGE VERY LOW LOW NORMAL HIGH 0-19 Y < 35 < 40 40-45 ---- 20-24 Y ---- < 40 >45 ---- >24 Y ---- < 40 40-60 >60 . Performed By: #### C BCDF #### [address] [address] Cholesterol in LDL [Mass/Vol] 34 mg/dL Normal 0 - 99 [facility] Comment on above: Result Comment: . NEAR BORD AGE DESIRABLE OPTIMAL HIGH HIGH VERY HIGH 0-19 Y 0 - 109 --- 110-129 >/= 130 ---- 20-24 Y 0 - 119 --- 120-159 >/= 160 ---- >24 Y 0 - 99 100-129 130-159 160-189 >/=190 . Performed By: #### C BCDF #### [address] [address] Cholesterol in VLDL [Mass/Vol] 18 mg/dL Normal 0 - 40 [facility] Comment on above: Performed By: #### C BCDF #### [address] [address] Cholesterol.total/Chol esterol in HDL [Mass ratio] 2.4 {ratio} Normal [facility] Comment on above: Result Comment: REF VALUES DESIRABLE < 3.4 HIGH RISK > 5.0 Performed By: #### C BCDF #### [address] [address] Triglyceride [Mass/Vol] 90 mg/dL Normal 0 - 149 [facility] Comment on above: Result Comment: . [...] dosing. Performed By: #### C BCDF #### [address] [address] MAGNESIUMon 06-02-2021 Magnesium [Mass/Vol] 1.78 mg/dL Normal 1.60 - 2.40 [facility] Comment on above: Performed By: #### C BCDF #### [address] [address] MANUAL DIFFERENTIALon 2021 % BAND NEUTROPHIL 3.0 % Normal 0.0 - 5.0 [facility] Comment on above: Performed By: #### T BILI #### [address] [address] % BASOPHIL 0.0 % Normal 0.0 - 2.0 [facility] Comment on above: Performed By: #### T BILI #### [address] [address] % EOSINOPHIL 5.0 % Normal 0.0 - 6.0 [facility] Comment on above: Performed By: #### T BILI #### [address] [address] % LYMPHOCYTE 18.0 % Normal 13.0 - 44.0 [facility] Comment on above: Performed By: #### T BILI #### [address] [address] % METAMYELOCYTE 4.0 % Normal 0.0 - 0.0 [facility] Comment on above: Performed By: #### T BILI #### [address] [address] % MONOCYTE 3.0 % Normal 2.0 - 10.0 [facility] Comment on above: Performed By: #### T BILI #### [address] [address] % SEG NEUTROPHIL 67.0 % Normal 40.0 - 80.0 [facility] Comment on above: Result Comment: Perc ent differential counts (%) should be interpreted in the context of the absolute cell counts (cells/L). Performed By: #### T BILI #### [address] [address] ANC 5.81 x10E9/L Normal 1.20 - 7.70 [facility] Comment on above: Performed By: #### T BILI #### [address] [address] BAND NEUTROPHIL 0.25 x10E9/L Normal 0.00 - 0.70 [facility] Comment on above: Performed By: #### T BILI #### [address] [address] BASOPHIL 0.00 x10E9/L Normal 0.00 - 0.10 [facility] Comment on above: Performed By: #### T BILI #### [address] [address] EOSINOPHIL 0.42 x10E9/L Normal 0.00 - 0.70 [facility] Comment on above: Performed By: #### T BILI #### [address] [address] LYMPHOCYTE 1.49 x10E9/L Normal 1.20 - 4.80 [facility] Comment on above: Performed By: #### T BILI #### [address] [address] METAMYELOCYTE 0.33 x10E9/L Abnormal 0.00 - 0.00 [facility] Comment on above: Performed By: #### T BILI #### [address] [address] MONOCYTE 0.25 x10E9/L Normal 0.10 - 1.00 [facility] Comment on above: Performed By: #### T BILI #### [address] [address] SEG NEUTROPHIL 5.56 x10E9/L Normal 1.20 - 7.00 [facility] Comment on above: Performed By: #### T BILI #### [address] [address] PHOSPHORUSon 06-02-2021 Phosphate [Mass/Vol] 2.1 mg/dL Low 2.5 - 4.9 [facility] Comment on above: Result Comment: The performance characteristics of phosphorus testing in heparinized plasma have been validated by the individual laboratory site where testing is performed. Testing on heparinized plasma is not approved by the FDA; however, such approval is not necessary. Performed By: #### C BCDF #### [address] [address] RED CELL MORPHOLOGYon 2021 RBC morphology finding Nom (Bld) NORMAL Normal [facility] Comment on above: Performed By: #### A P #### [id number] TACROLIMUSon 06-02-2021 Tacrolimus (Bld) [Mass/Vol] 13.8 ng/mL Normal 2.0 - 15.0 [facility] Comment on above: Result Comment: NOTE : Result was obtained using a chemiluminescent microparticle immunoassay (CMIA) on the [employer] system. Optimal therapeutic ranges for immuno- suppressant drugs depend upon an individual patient's current clinical state, type of organ transplant, time post-transplant, co-administration of other immunosuppressants, and other clinical factors. The results of this test should be correlated with additional clinical and laboratory data before changes in treatment regimens are made. Performed By: #### F [id number] #### [facility] [id number] [place], [place] [id number] TOTAL PROTEIN, URINE SPOTon 06-02-2021 CREATININE,URINE Canceled Normal [facility] Comment on above: Order Comment: TEST TOTAL PROTEIN, URINE SPOT WAS CANCELLED, 06/02/2021 18:07 no urinecollected and /or received into the lab. Performed By: #### C BCDF #### [address] [address] T. PROTEIN/CREAT RATIO Canceled Normal [facility] Comment on above: Order Comment: TEST TOTAL PROTEIN, URINE SPOT WAS CANCELLED, 06/02/2021 18:07 no urinecollected and /or received into the lab. Performed By: #### C BCDF #### [address] [address] TOTAL PROT,URINE SPOT Canceled Normal [facility] Comment on above: Order Comment: TEST TOTAL PROTEIN, URINE SPOT WAS CANCELLED, 06/02/2021 18:07 no urinecollected and /or received into the lab. Performed By: #### C BCDF #### [address] [address] TRANSFERRINon 06-02-2021 Transferrin [Mass/Vol] 167 mg/dL Low 200 - 360 [facility] Comment on above: Performed By: #### M DIFF #### [address] [address] URIC ACIDon 06-02-2021 Urate [Mass/Vol] 6.8 mg/dL Normal 4.0 - 7.5 [facility] Comment on above: Result Comment: Lyndsey puncture immediately after or during the administration of Metamizole may lead to falsely low results. Testing should be performed immediately prior to Metamizole dosing. Performed By: #### C BCDF #### [facility] [address] [place] [address] Absolute lymphocyte counton 05-30-2021 Lymphocytes Auto (Unsp spec) [#/Vol] 1.04 10*3/uL 0.83-4.51 [facility] Work Phone: Basophil percentageon 2021 Basophil percentage 2.0 mg/dL 2.5-4.9 [facility] Work Phone: Basophils/100 WBC (Bld) 0.8 % 0-1 [facility] Work Phone: Bilirubin [Mass/Vol] 0.40 mg/dL 0.20-1.00 [facility] Work Phone: Comment on above: For patients on eltr ombopag therapy, use of Dimension [place] TBIL is not recommended. Chloride [Moles/Vol] 112 mmol/L 98-107 [facility] Work Phone: Eosinophils/100 WBC (Bld) 2.4 % 0-5 [facility] Work Phone: Glucose [Mass/Vol] 121 mg/dL 74-106 [facility] Work Phone: Comment on above: Fasting Glucose resu lt from 100 to 125 mg/dL suggests IMPAIRED HOMEOSTASIS per A.D.A. criteria. Neutrophils (Bld) [#/Vol] 4.5 10*3/uL 2.0-7.7 [facility] Work Phone: Neutrophils/100 WBC (Bld) 71.8 % 47-70 [facility] Work Phone: Potassium [Moles/Vol] 4.7 mmol/L 3.5-5.1 [facility] Work Phone: Protein [Mass/Vol] 5.7 g/dL 6.4-8.2 [facility] Work Phone: Sodium [Moles/Vol] 138 mmol/L 136-145 [facility] Work Phone: WBC (Bld) [#/Vol] 6.3 10*3/uL 4.4-11.0 [facility] Work Phone: Blood erythrocytes count (nu mber/volume)on 05-30-2021 RBC (Bld) [#/Vol] 3.71 10*6/uL 4.6-6.2 [facility] Work Phone: Blood hemoglobin measurement (mass/volume)on 05-30-2021 Hemoglobin (Bld) [Mass/Vol] 11.8 g/dL 13.0-16.5 [facility] Work Phone: Blood lymphocytes/100 leukoc yteson 05-30-2021 Lymphocytes/100 WBC (Bld) 16.5 % 19-41 [facility] Work Phone: Blood monocytes/100 leukocyt eson 05-30-2021 Monocytes/100 WBC (Bld) 7.4 % 0-10 [facility] Work Phone: Blood platelet mean volumeon 05-30-2021 Platelet mean volume (Bld) [Entitic vol] 10.6 fL 6.2-12.0 [facility] Work Phone: Determination of erythrocyte mean corpuscular volume (MCV)on 05-30-2021 MCV (RBC) [Entitic vol] 96.2 fL 80-94 [facility] Work Phone: Direct bilirubinon 2 Bilirubin.direct [Mass/Vol] 0.12 mg/dL 0.00-0.30 [facility] Work Phone: Hematocrit Auto (Bld) [Volum e fraction]on 05-30-2021 Hematocrit (Bld) [Volume fraction] 35.7 % 40-54 [facility] Work Phone: INR in Blood by Coagulation assayon 05-30-2021 INR Coag (Bld) [Relative time] 1.1 {INR} [facility] Work Phone: Laboratory - Chemistry and C hemistry - challengeon 05-30-2021 ALP [Catalytic activity/Vol] 105 U/L 45-117 [facility] Work Phone: [phone] ALT [Catalytic activity/Vol] 23 U/L 16-61 [facility] Work Phone: CO2 [Moles/Vol] 22.0 mmol/L 21.0-32.0 [facility] Work Phone: Globulin (S) [Mass/Vol] 2.8 g/dL 2.2-4.2 [facility] Work Phone: [phone] Magnesium [Mass/Vol] 1.9 mg/dL 1.6-2.6 [facility] Work Phone: Laboratory - Coagulationon 0 05-30-2021 aPTT Coag (Bld) [Time] 29.7 s 24.1-36.2 [facility] Work Phone: PT Coag (PPP) [Time] 13.3 s 11.7-14.9 [facility] Work Phone: Laboratory - Hematology and Cell countson 05-30-2021 Erythrocyte distribution width (RBC) [Entitic vol] 50.4 fL 35.1-43.9 [facility] Work Phone: Erythrocyte distribution width (RBC) [Ratio] 14.2 % 11.6-14.6 [facility] Work Phone: Immature granulocytes/100 WBC (Bld) 1.100 % 0.0-0.9 [facility] Work Phone: Comment on above: IG% - Immature Granu locytes (promyelocytes, myelocytes and metamyelocytes) > 1% indicates that a LEFT SHIFT is Present. MCH (RBC) [Entitic mass] 31.8 pg 27.0-32.0 [facility] Work Phone: Nucleated RBC/100 WBC (Bld) [Ratio] 0 % 0-5 [facility] Work Phone: MCHC Auto (RBC) [Mass/Vol]on 05-30-2021 MCHC (RBC) [Mass/Vol] 33.1 g/dL 32-36 [facility] Work Phone: No Panel Informationon 05-30 Estimated GFR (MDRD) Amer 32 mL/min >60 [facility] Work Phone: Comment on above: GFR Calc Estimated GFR (MDRD) Non-Af Amer 26 mL/min >60 [facility] Work Phone: Comment on above: Non- GFR Calc Miscellaneous Test See comment [facility] Work Phone: Comment on above: TEST RESULT LIMITSBK V DNA, Quant PCR, Plasma Negative IU/mL Negative No BK DNA detected. The linear range of the assay is 22 - 100,000,000 IU/mL. TESTING PERFORMED AT [facility]. ORIGINAL REPORT ON FILE IN LAB CONTAINS ADDITIONAL TEST SITE INFORMATION. Tacrolimus (Prograf) Level 8.8 ng/mL 2.0-20.0 [facility] Work Phone: Comment on above: Trough (immediately following transplant) 15.0 Trough (steady state, 2 weeks or more after transplant): 3.0 - 8.0 Performed by LC-MS/MS technology.Performed at: [address] [id number] Director: Shellie Holguin MD, Phone: [phone] Platelets bldon 05-30-2021 Platelets (Bld) [#/Vol] 203 10*3/uL 150-450 [facility] Work Phone: Serum or plasma albumin caity urement (mass/volume)on 05-30-2021 Albumin [Mass/Vol] 2.9 g/dL 3.2-5.0 [facility] Work Phone: Serum or plasma calcium caity urement (mass/volume)on 05-30-2021 Calcium [Mass/Vol] 10.4 mg/dL 8.5-10.1 [facility] Work Phone: Serum or plasma creatinine m easurement (mass/volume)on 05-30-2021 Creatinine [Mass/Vol] 2.65 mg/dL 0.70-1.30 [facility] Work Phone: Comment on above: The validity of the calculated GFR & GFRAA in patients over 70 years has not been determined. Clinical correlation is essential. Serum or plasma urea nitroge n measurement (mass/volume)on 05-30-2021 Urea nitrogen [Mass/Vol] 28 mg/dL 7-18 [facility] Work Phone: Thin prep Papanicolaou smear with manual screeningon 05-30-2021 Thin prep Papanicolaou smear with manual screening 12 U/L 15-37 [facility] Work Phone: Thin prep Papanicolaou smear with manual screening 4 5-15 [facility] Work Phone: Basophil percentageon 2021 Basophil percentage 2.4 mg/dL 2.5-4.9 [facility] Work Phone: Bilirubin [Mass/Vol] 0.40 mg/dL 0.20-1.00 [facility] Work Phone: Comment on above: For patients on eltr ombopag therapy, use of Dimension [place] TBIL is not recommended. Chloride [Moles/Vol] 113 mmol/L 98-107 [facility] Work Phone: Glucose [Mass/Vol] 96 mg/dL 74-106 [facility] Work Phone: Potassium [Moles/Vol] 4.8 mmol/L 3.5-5.1 [facility] Work Phone: Protein [Mass/Vol] 5.7 g/dL 6.4-8.2 [facility] Work Phone: Sodium [Moles/Vol] 139 mmol/L 136-145 [facility] Work Phone: WBC (Bld) [#/Vol] 6.5 10*3/uL 4.4-11.0 [facility] Work Phone: Blood erythrocytes count (nu mber/volume)on 05-28-2021 RBC (Bld) [#/Vol] 3.75 10*6/uL 4.6-6.2 [facility] Work Phone: Blood hemoglobin measurement (mass/volume)on 05-28-2021 Hemoglobin (Bld) [Mass/Vol] 11.8 g/dL 13.0-16.5 [facility] Work Phone: Blood platelet mean volumeon 05-28-2021 Platelet mean volume (Bld) [Entitic vol] 10.2 fL 6.2-12.0 [facility] Work Phone: Determination of erythrocyte mean corpuscular volume (MCV)on 05-28-2021 MCV (RBC) [Entitic vol] 95.7 fL 80-94 [facility] Work Phone: Direct bilirubinon 2 Bilirubin.direct [Mass/Vol] 0.14 mg/dL 0.00-0.30 [facility] Work Phone: Hematocrit Auto (Bld) [Volum e fraction]on 05-28-2021 Hematocrit (Bld) [Volume fraction] 35.9 % 40-54 [facility] Work Phone: INR in Blood by Coagulation assayon 05-28-2021 INR Coag (Bld) [Relative time] 1.0 {INR} [facility] Work Phone: Laboratory - Chemistry and C hemistry - challengeon 05-28-2021 ALP [Catalytic activity/Vol] 102 U/L 45-117 [facility] Work Phone: ALT [Catalytic activity/Vol] 23 U/L 16-61 [facility] Work Phone: CO2 [Moles/Vol] 23.0 mmol/L 21.0-32.0 [facility] Work Phone: Globulin (S) [Mass/Vol] 2.8 g/dL 2.2-4.2 [facility] Work Phone: Magnesium [Mass/Vol] 2.0 mg/dL 1.6-2.6 [facility] Work Phone: Laboratory - Coagulationon 0 05-28-2021 aPTT Coag (Bld) [Time] 28.7 s 24.1-36.2 [facility] Work Phone: PT Coag (PPP) [Time] 13.0 s 11.7-14.9 [facility] Work Phone: Laboratory - Hematology and Cell countson 05-28-2021 Erythrocyte distribution width (RBC) [Entitic vol] 50.4 fL 35.1-43.9 [facility] Work Phone: Erythrocyte distribution width (RBC) [Ratio] 14.3 % 11.6-14.6 [facility] Work Phone: MCH (RBC) [Entitic mass] 31.5 pg 27.0-32.0 [facility] Work Phone: MCHC Auto (RBC) [Mass/Vol]on 05-28-2021 MCHC (RBC) [Mass/Vol] 32.9 g/dL 32-36 [facility] Work Phone: No Panel Informationon 05-28 Estimated GFR (MDRD) Amer 35 mL/min >60 [facility] Work Phone: Comment on above: GFR Calc Estimated GFR (MDRD) Non-Af Amer 29 mL/min >60 [facility] Work Phone: Comment on above: Non- GFR Calc Tacrolimus (Prograf) Level 8.0 ng/mL 2.0-20.0 [facility] Work Phone: Comment on above: Trough (immediately following transplant) 15.0 Trough (steady state, 2 weeks or more after transplant): 3.0 - 8.0 Performed by LC-MS/MS technology.Performed at: [address] [id number] Director: Shellie Holguin MD, Phone: [phone] Platelets bldon 05-28-2021 Platelets (Bld) [#/Vol] 200 10*3/uL 150-450 [facility] Work Phone: Serum or plasma albumin caity urement (mass/volume)on 05-28-2021 Albumin [Mass/Vol] 2.9 g/dL 3.2-5.0 [facility] Work Phone: Serum or plasma calcium caity urement (mass/volume)on 05-28-2021 Calcium [Mass/Vol] 10.2 mg/dL 8.5-10.1 [facility] Work Phone: Serum or plasma creatinine m easurement (mass/volume)on 05-28-2021 Creatinine [Mass/Vol] 2.46 mg/dL 0.70-1.30 [facility] Work Phone: Comment on above: The validity of the calculated GFR & GFRAA in patients over 70 years has not been determined. Clinical correlation is essential. Serum or plasma urea nitroge n measurement (mass/volume)on 05-28-2021 Urea nitrogen [Mass/Vol] 26 mg/dL 7-18 [facility] Work Phone: Thin prep Papanicolaou smear with manual screeningon 05-28-2021 Thin prep Papanicolaou smear with manual screening 10 U/L 15-37 [facility] Work Phone: Thin prep Papanicolaou smear with manual screening 3 5-15 [facility] Work Phone: Absolute lymphocyte counton 05-23-2021 Lymphocytes Auto (Unsp spec) [#/Vol] 1.35 10*3/uL 0.83-4.51 [facility] Work Phone: Activated partial thrombopla stin time (aPTT) in platelet poor plasma by coagulation aon 05-23-2021 aPTT Coag (PPP) [Time] 28.4 s 24.1-36.2 [facility] Work Phone: Basophil percentageon 2021 Basophil percentage 2.5 mg/dL 2.5-4.9 [facility] Work Phone: Basophils/100 WBC (Bld) 0.7 % 0-1 [facility] Work Phone: Bilirubin [Mass/Vol] 0.40 mg/dL 0.20-1.00 [facility] Work Phone: Comment on above: For patients on eltr ombopag therapy, use of Dimension [place] TBIL is not recommended. Chloride [Moles/Vol] 112 mmol/L 98-107 [facility] Work Phone: Eosinophils/100 WBC (Bld) 4.0 % 0-5 [facility] Work Phone: Glucose [Mass/Vol] 98 mg/dL 74-106 [facility] Work Phone: Neutrophils (Bld) [#/Vol] 5.0 10*3/uL 2.0-7.7 [facility] Work Phone: Neutrophils/100 WBC (Bld) 68.1 % 47-70 [facility] Work Phone: Potassium [Moles/Vol] 4.7 mmol/L 3.5-5.1 [facility] Work Phone: Protein [Mass/Vol] 5.8 g/dL 6.4-8.2 [facility] Work Phone: Sodium [Moles/Vol] 139 mmol/L 136-145 [facility] Work Phone: WBC (Bld) [#/Vol] 7.3 10*3/uL 4.4-11.0 [facility] Work Phone: Blood erythrocytes count (nu mber/volume)on 05-23-2021 RBC (Bld) [#/Vol] 3.62 10*6/uL 4.6-6.2 [facility] Work Phone: Blood hemoglobin measurement (mass/volume)on 05-23-2021 Hemoglobin (Bld) [Mass/Vol] 11.5 g/dL 13.0-16.5 [facility] Work Phone: Blood lymphocytes/100 leukoc yteson 05-23-2021 Lymphocytes/100 WBC (Bld) 18.5 % 19-41 [facility] Work Phone: Blood monocytes/100 leukocyt eson 05-23-2021 Monocytes/100 WBC (Bld) 8.0 % 0-10 [facility] Work Phone: Blood platelet mean volumeon 05-23-2021 Platelet mean volume (Bld) [Entitic vol] 10.6 fL 6.2-12.0 [facility] Work Phone: Determination of erythrocyte mean corpuscular volume (MCV)on 05-23-2021 MCV (RBC) [Entitic vol] 97.5 fL 80-94 [facility] Work Phone: Direct bilirubinon 2 Bilirubin.direct [Mass/Vol] 0.09 mg/dL 0.00-0.30 [facility] Work Phone: Hematocrit Auto (Bld) [Volum e fraction]on 05-23-2021 Hematocrit (Bld) [Volume fraction] 35.3 % 40-54 [facility] Work Phone: INR in Blood by Coagulation assayon 05-23-2021 INR Coag (Bld) [Relative time] 1.1 {INR} [facility] Work Phone: Laboratory - Chemistry and C hemistry - challengeon 05-23-2021 ALP [Catalytic activity/Vol] 111 U/L 45-117 [facility] Work Phone: ALT [Catalytic activity/Vol] 22 U/L 16-61 [facility] Work Phone: CO2 [Moles/Vol] 21.0 mmol/L 21.0-32.0 [facility] Work Phone: Globulin (S) [Mass/Vol] 2.8 g/dL 2.2-4.2 [facility] Work Phone: Magnesium [Mass/Vol] 2.0 mg/dL 1.6-2.6 [facility] Work Phone: Laboratory - Coagulationon 0 05-23-2021 PT Coag (PPP) [Time] 13.3 s 11.7-14.9 [facility] Work Phone: Laboratory - Hematology and Cell countson 05-23-2021 Erythrocyte distribution width (RBC) [Entitic vol] 51.9 fL 35.1-43.9 [facility] Work Phone: Erythrocyte distribution width (RBC) [Ratio] 14.3 % 11.6-14.6 [facility] Work Phone: Immature granulocytes/100 WBC (Bld) 0.700 % 0.0-0.9 [facility] Work Phone: Comment on above: IG% - Immature Granu locytes (promyelocytes, myelocytes and metamyelocytes) > 1% indicates that a LEFT SHIFT is Present. MCH (RBC) [Entitic mass] 31.8 pg 27.0-32.0 [facility] Work Phone: Nucleated RBC/100 WBC (Bld) [Ratio] 0 % 0-5 [facility] Work Phone: MCHC Auto (RBC) [Mass/Vol]on 05-23-2021 MCHC (RBC) [Mass/Vol] 32.6 g/dL 32-36 [facility] Work Phone: No Panel Informationon 05-23 Estimated GFR (MDRD) Amer 33 mL/min >60 [facility] Work Phone: Comment on above: GFR Calc Estimated GFR (MDRD) Non-Af Amer 27 mL/min >60 [facility] Work Phone: Comment on above: Non- GFR Calc Tacrolimus (Prograf) Level 6.4 ng/mL 2.0-20.0 [facility] Work Phone: Comment on above: Trough (immediately following transplant) 15.0 Trough (steady state, 2 weeks or more after transplant): 3.0 - 8.0 Performed by LC-MS/MS technology.Performed at: [facility] [id number] Director: Shellie Holguin MD, Phone: [phone] Platelets bldon 05-23-2021 Platelets (Bld) [#/Vol] 212 10*3/uL 150-450 [facility] Work Phone: Serum or plasma albumin caity urement (mass/volume)on 05-23-2021 Albumin [Mass/Vol] 3.0 g/dL 3.2-5.0 [facility] Work Phone: Serum or plasma calcium caity urement (mass/volume)on 05-23-2021 Calcium [Mass/Vol] 10.2 mg/dL 8.5-10.1 [facility] Work Phone: Serum or plasma creatinine m easurement (mass/volume)on 05-23-2021 Creatinine [Mass/Vol] 2.59 mg/dL 0.70-1.30 [facility] Work Phone: Comment on above: The validity of the calculated GFR & GFRAA in patients over 70 years has not been determined. Clinical correlation is essential. Serum or plasma urea nitroge n measurement (mass/volume)on 05-23-2021 Urea nitrogen [Mass/Vol] 33 mg/dL 7-18 [facility] Work Phone: Thin prep Papanicolaou smear with manual screeningon 05-23-2021 Thin prep Papanicolaou smear with manual screening 10 U/L 15-37 [facility] Work Phone: Thin prep Papanicolaou smear with manual screening 6 5-15 [facility] Work Phone: Absolute lymphocyte counton 05-19-2021 Lymphocytes Auto (Unsp spec) [#/Vol] 1.24 10*3/uL 0.83-4.51 [facility] Work Phone: Activated partial thrombopla stin time (aPTT) in platelet poor plasma by coagulation aon 05-19-2021 aPTT Coag (PPP) [Time] 28.5 s 24.1-36.2 [facility] Work Phone: Basophil percentageon 2021 Basophil percentage 2.2 mg/dL 2.5-4.9 [facility] Work Phone: [phone] Basophils/100 WBC (Bld) 1.0 % 0-1 [facility] Work Phone: Bilirubin [Mass/Vol] 0.40 mg/dL 0.20-1.00 [facility] Work Phone: Comment on above: For patients on eltr ombopag therapy, use of Dimension [place] TBIL is not recommended. Chloride [Moles/Vol] 112 mmol/L 98-107 [facility] Work Phone: Eosinophils/100 WBC (Bld) 3.4 % 0-5 [facility] Work Phone: Glucose [Mass/Vol] 86 mg/dL 74-106 [facility] Work Phone: Neutrophils (Bld) [#/Vol] 5.6 10*3/uL 2.0-7.7 [facility] Work Phone: Neutrophils/100 WBC (Bld) 72.4 % 47-70 [facility] Work Phone: Potassium [Moles/Vol] 4.7 mmol/L 3.5-5.1 [facility] Work Phone: Protein [Mass/Vol] 6.0 g/dL 6.4-8.2 [facility] Work Phone: Sodium [Moles/Vol] 138 mmol/L 136-145 [facility] Work Phone: WBC (Bld) [#/Vol] 7.8 10*3/uL 4.4-11.0 [facility] Work Phone: Blood erythrocytes count (nu mber/volume)on 05-19-2021 RBC (Bld) [#/Vol] 3.70 10*6/uL 4.6-6.2 [facility] Work Phone: Blood hemoglobin measurement (mass/volume)on 05-19-2021 Hemoglobin (Bld) [Mass/Vol] 11.3 g/dL 13.0-16.5 [facility] Work Phone: Blood lymphocytes/100 leukoc yteson 05-19-2021 Lymphocytes/100 WBC (Bld) 16.0 % 19-41 [facility] Work Phone: Blood monocytes/100 leukocyt eson 05-19-2021 Monocytes/100 WBC (Bld) 6.7 % 0-10 [facility] Work Phone: Blood platelet mean volumeon 05-19-2021 Platelet mean volume (Bld) [Entitic vol] 10.4 fL 6.2-12.0 [facility] Work Phone: Determination of erythrocyte mean corpuscular volume (MCV)on 05-19-2021 MCV (RBC) [Entitic vol] 97.8 fL 80-94 [facility] Work Phone: Direct bilirubinon 2 Bilirubin.direct [Mass/Vol] 0.16 mg/dL 0.00-0.30 [facility] Work Phone: Hematocrit Auto (Bld) [Volum e fraction]on 05-19-2021 Hematocrit (Bld) [Volume fraction] 36.2 % 40-54 [facility] Work Phone: INR in Blood by Coagulation assayon 05-19-2021 INR Coag (Bld) [Relative time] 1.1 {INR} [facility] Work Phone: Laboratory - Chemistry and C hemistry - challengeon 05-19-2021 ALP [Catalytic activity/Vol] 129 U/L 45-117 [facility] Work Phone: ALT [Catalytic activity/Vol] 23 U/L 16-61 [facility] Work Phone: CO2 [Moles/Vol] 23.0 mmol/L 21.0-32.0 [facility] Work Phone: Globulin (S) [Mass/Vol] 3.0 g/dL 2.2-4.2 [facility] Work Phone: Magnesium [Mass/Vol] 2.1 mg/dL 1.6-2.6 [facility] Work Phone: Urea nitrogen/Creatinine [Mass ratio] 9.7 mg/mg 10-20 [facility] Work Phone: Laboratory - Coagulationon 0 05-19-2021 PT Coag (PPP) [Time] 13.2 s 11.7-14.9 [facility] Work Phone: Laboratory - Hematology and Cell countson 05-19-2021 Erythrocyte distribution width (RBC) [Entitic vol] 51.8 fL 35.1-43.9 [facility] Work Phone: Erythrocyte distribution width (RBC) [Ratio] 14.5 % 11.6-14.6 [facility] Work Phone: Immature granulocytes/100 WBC (Bld) 0.500 % 0.0-0.9 [facility] Work Phone: Comment on above: IG% - Immature Granu locytes (promyelocytes, myelocytes and metamyelocytes) > 1% indicates that a LEFT SHIFT is Present. MCH (RBC) [Entitic mass] 30.5 pg 27.0-32.0 [facility] Work Phone: Nucleated RBC/100 WBC (Bld) [Ratio] 0 % 0-5 [facility] Work Phone: MCHC Auto (RBC) [Mass/Vol]on 05-19-2021 MCHC (RBC) [Mass/Vol] 31.2 g/dL 32-36 [facility] Work Phone: No Panel Informationon 05-19 Estimated GFR (MDRD) Amer 33 mL/min >60 [facility] Work Phone: Comment on above: GFR Calc Estimated GFR (MDRD) Non-Af Amer 27 mL/min >60 [facility] Work Phone: Comment on above: Non- GFR Calc Tacrolimus (Prograf) Level 7.9 ng/mL 2.0-20.0 [facility] Work Phone: Comment on above: Trough (immediately following transplant) 15.0 Trough (steady state, 2 weeks or more after transplant): 3.0 - 8.0 Performed by LC-MS/MS technology.Performed at: [facility] [id number] Director: Shellie Holguin MD, Phone: [phone] Platelets bldon 05-19-2021 Platelets (Bld) [#/Vol] 220 10*3/uL 150-450 [facility] Work Phone: Serum or plasma albumin caity urement (mass/volume)on 05-19-2021 Albumin [Mass/Vol] 3.0 g/dL 3.2-5.0 [facility] Work Phone: Serum or plasma calcium caity urement (mass/volume)on 05-19-2021 Calcium [Mass/Vol] 10.4 mg/dL 8.5-10.1 [facility] Work Phone: Serum or plasma creatinine m easurement (mass/volume)on 05-19-2021 Creatinine [Mass/Vol] 2.59 mg/dL 0.70-1.30 [facility] Work Phone: Comment on above: The validity of the calculated GFR & GFRAA in patients over 70 years has not been determined. Clinical correlation is essential. Serum or plasma urea nitroge n measurement (mass/volume)on 05-19-2021 Urea nitrogen [Mass/Vol] 25 mg/dL 7-18 [facility] Work Phone: Thin prep Papanicolaou smear with manual screeningon 05-19-2021 Thin prep Papanicolaou smear with manual screening 13 U/L 15-37 [facility] Work Phone: Thin prep Papanicolaou smear with manual screening 3 5-15 [facility] Work Phone: XR Pelvis and Hip - [...] are surgical clips in the right hemipelvis. Consulting Hr Professional: KYLER Transcribe Date/Time: Apr 19 2021 3:57P Dictated by : AFTAB ROBERTSON MD This examination was interpreted and the report reviewed and electronically signed by: AFTAB ROBERTSON MD on Apr 19 2021 3:58PM [facility] DIVISION OF RADIOLOGY * * *Final Report* * * DATE OF EXAM: Apr 19 2021 3:54PM WOX [id number] - XR HIP 3V PELV+ AP/LAT RT / PROCEDURE REASON: Right hip pain * * * * Physician Interpretation * * * * EXAM:XR HIP 3V PELV+ AP/LAT RT HISTORY: Right hip pain COMPARISON:None DIVISION OF RADIOLOGY Provider, [facility] - 04/19/2021 * * *Final Report* * [...] are surgical clips in the right hemipelvis. Consulting Hr Professional: KYLER Transcribe Date/Time: Apr 19 2021 3:57P Dictated by : AFTAB ROBERTSON MD This examination was interpreted and the report reviewed and electronically signed by: AFTAB ROBERTSON MD on Apr 19 2021 3:58PM EST [facility] Radiology Study observation (narrative) [facility] XR Pelvis and Hip - right AP and Lateral frogOrdered By: [facility] Provider on 04-19-2021 [facility] No Panel Information Enteric Bacteriology [facility] Work Phone: Streptococcus pneumoniae Antigen (M [facility] Work Phone: [facility] SARS-CoV-2 (COVID-19) Ag IA. rapid Ql (Resp) SARS-CoV-2 Antigen (Rapid) SARS-CoV-2 (COVID 19) [facility] Work Phone: Vital Signs Date Time Vital Sign Value Performing Clinician Facility 09-17-2024 14:59-0400 Body mass index (BMI) [Ratio] 36.59 kg/m2 Handy Henderson DO Work Phone: [facility] 09-17-2024 14:59-0400 Body temperature 96.1 [degF] Handy Henderson DO Work Phone: [facility] 09-17-2024 14:59-0400 Body weight 115.67 kg Handy Henderson DO Work Phone: [facility] 09-17-2024 14:59-0400 Diastolic blood pressure 70 mm[Hg] Handy Henderson DO Work Phone: [facility] 09-17-2024 14:59-0400 Heart rate 72 /min Handy Henderson DO Work Phone: [facility] 09-17-2024 14:59-0400 Respiratory rate 24 /min Handy Henderson DO Work Phone: [facility] 09-17-2024 14:59-0400 Systolic blood pressure 146 mm[Hg] Handy Henderson DO Work Phone: [facility] 08-13-2024 13:07-0400 Body height 177.[address] Handy Henderson DO Work Phone: [facility] 08-13-2024 13:07-0400 Body mass index (BMI) [Ratio] 37.4 kg/m2 Dr. Handy Henderson DO Work Phone: [facility] 08-13-2024 13:07-0400 Body weight 118.[address] Hanyd Henderson DO Work Phone: [facility] 08-13-2024 13:07-0400 Diastolic blood pressure 80 mm[Hg] Dr. Handy Henderson DO Work Phone: [facility] 08-13-2024 13:07-0400 Heart rate 69 /min Dr. Handy Henderson DO Work Phone: [facility] 08-13-2024 13:07-0400 SaO2% (BldA) [Mass fraction] 96 % Dr. Handy Henderson DO Work Phone: [facility] 08-13-2024 13:07-0400 Systolic blood pressure 146 mm[Hg] Dr. Handy Henderson DO Work Phone: [facility] 06-17-2024 14:23-0400 Body mass index (BMI) [Ratio] 36.59 kg/m2 Handy Henderson DO Work Phone: [facility] 06-17-2024 14:23-0400 Body temperature 97 [degF] Handy Henderson DO Work Phone: [facility] 06-17-2024 14:23-0400 Body weight 115.67 kg Handy Henderson DO Work Phone: [facility] 06-17-2024 14:23-0400 Diastolic blood pressure 70 mm[Hg] Handy Henderson DO Work Phone: [facility] 06-17-2024 14:23-0400 Heart rate 68 /min Handy Henderson DO Work Phone: [facility] 06-17-2024 14:23-0400 Respiratory rate 20 /min Handy Henderson DO Work Phone: [facility] 06-17-2024 14:23-0400 Systolic blood pressure 130 mm[Hg] Handy Henderson DO Work Phone: [facility] 06-03-2024 07:33-0500 Body height 177.[address] Handy Henderson DO Work Phone: [facility] 06-03-2024 07:33-0500 Body mass index (BMI) [Ratio] 36.8 kg/m2 Dr. Handy Henderson DO Work Phone: 8(897)037-769881 [place] [address] 06-03-2024 07:33-0500 Body weight 116.[address] Handy Henderson DO Work Phone: 7(455)335-196081 [place] [address] 06-03-2024 07:33-0500 Diastolic blood pressure 76 mm[Hg] Dr. Handy Henderson DO Work Phone: 8(831)536-851681 [place] [address] 06-03-2024 07:33-0500 Heart rate 85 /min Dr. Handy Henderson DO Work Phone: [facility] 06-03-2024 07:33-0500 Respiratory rate 20 /min Dr. Handy Henderson DO Work Phone: 4(402)194-302881 [place] [address] 06-03-2024 07:33-0500 SaO2% (BldA) [Mass fraction] 97 % Dr. Handy Henderson DO Work Phone: [facility] 06-03-2024 07:33-0500 Systolic blood pressure 122 mm[Hg] Dr. Handy Henderson DO Work Phone: [facility] 05-10-2024 13:55-0500 Body mass index (BMI) [Ratio] 36.69 kg/m2 Nikky White Hall BRUSHER MACHINE.MENDING CARRIER Work Phone: [facility] 05-10-2024 13:55-0500 Body temperature 97.59 [degF] Nikky Kike BRUSHER MACHINE.MENDING CARRIER Work Phone: [facility] 05-10-2024 13:55-0500 Body weight 116 kg Nikky White Hall BRUSHER MACHINE.MENDING CARRIER Work Phone: [facility] 05-10-2024 13:55-0500 Diastolic blood pressure 76 mm[Hg] Nikky Kike BRUSHER MACHINE.MENDING CARRIER Work Phone: [facility] 05-10-2024 13:55-0500 Heart rate 73 /min Nikky Kike BRUSHER MACHINE.MENDING CARRIER Work Phone: [facility] 05-10-2024 13:55-0500 Respiratory rate 20 /min Nikky Kike BRUSHER MACHINE.MENDING CARRIER Work Phone: [facility] 05-10-2024 13:55-0500 SaO2% (BldA) [Mass fraction] 99 % Nikky White Hall BRUSHER MACHINE.MENDING CARRIER Work Phone: [facility] 05-10-2024 13:55-0500 Systolic blood pressure 136 mm[Hg] Nikky Kike BRUSHER MACHINE.MENDING CARRIER Work Phone: [facility] 12-11-2023 15:08-0400 Body mass index (BMI) [Ratio] 39.03 kg/m2 Handy Henderson DO Work Phone: [facility] 12-11-2023 15:08-0400 Body temperature 97 [degF] Handy Henderson DO Work Phone: [facility] 12-11-2023 15:08-0400 Body weight 123.38 kg Handy Henderson DO Work Phone: [facility] 12-11-2023 15:08-0400 Diastolic blood pressure 60 mm[Hg] Handy Henderson DO Work Phone: [facility] 12-11-2023 15:08-0400 Heart rate 80 /min Handy Henderson DO Work Phone: [facility] 12-11-2023 15:08-0400 Respiratory rate 16 /min Handy Henderson DO Work Phone: [facility] 12-11-2023 15:08-0400 Systolic blood pressure 124 mm[Hg] Handy Henderson DO Work Phone: [facility] 11-07-2023 14:16-0400 Body mass index (BMI) [Ratio] 38.21 kg/m2 Glynn Leon MD Work Phone: [facility] 11-07-2023 14:16-0400 Body temperature 96.8 [degF] Glynn Leon MD Work Phone: [facility] 11-07-2023 14:16-0400 Body weight 120.8 kg Glynn Leon MD Work Phone: [facility] 11-07-2023 14:16-0400 Diastolic blood pressure 70 mm[Hg] Glynn Leon MD Work Phone: [facility] 11-07-2023 14:16-0400 Heart rate 70 /min Glynn Leon MD Work Phone: [facility] 11-07-2023 14:16-0400 Respiratory rate 21 /min Glynn Leon MD Work Phone: [facility] 11-07-2023 14:16-0400 SaO2% (BldA) [Mass fraction] 98 % Glynn Leon MD Work Phone: [facility] 11-07-2023 14:16-0400 Systolic blood pressure 120 mm[Hg] Glynn Leon MD Work Phone: [facility] 11-06-2023 13:45-0400 Body height 179.1 cm Mirna SANCHEZ Work Phone: [facility] 11-06-2023 13:45-0400 Body mass index (BMI) [Ratio] 37.63 kg/m2 Mirna SANCHEZ Work Phone: [facility] 11-06-2023 13:45-0400 Body weight 120.66 kg Mirna Stuart BRUSHER MACHINE-MENDING CARRIER Work Phone: [facility] 11-06-2023 13:45-0400 Diastolic blood pressure 72 mm[Hg] Mirna Stuart BRUSHER MACHINE-MENDING CARRIER Work Phone: [facility] 11-06-2023 13:45-0400 Heart rate 75 /min Mirna Stuart BRUSHER MACHINE-MENDING CARRIER Work Phone: [facility] 11-06-2023 13:45-0400 Systolic blood pressure 131 mm[Hg] Mirna Stuart BRUSHER MACHINE-MENDING CARRIER Work Phone: [facility] 07-26-2023 07:25-0400 Body mass index (BMI) [Ratio] 40.74 kg/m2 Irlanda Issa BRUSHER MACHINE.MENDING CARRIER Work Phone: [facility] 07-26-2023 07:25-0400 Body temperature 97.9 [degF] Irlanda Issa BRUSHER MACHINE.MENDING CARRIER Work Phone: [facility] 07-26-2023 07:25-0400 Body weight 128.8 kg Irlanda Issa BRUSHER MACHINE.MENDING CARRIER Work Phone: [facility] 07-26-2023 07:25-0400 Diastolic blood pressure 64 mm[Hg] Irlanda Issa BRUSHER MACHINE.MENDING CARRIER Work Phone: [facility] 07-26-2023 07:25-0400 Heart rate 83 /min Irlanda Issa BRUSHER MACHINE.MENDING CARRIER Work Phone: [facility] 07-26-2023 07:25-0400 Respiratory rate 21 /min Irlanda Issa BRUSHER MACHINE.MENDING CARRIER Work Phone: [facility] 07-26-2023 07:25-0400 SaO2% (BldA) [Mass fraction] 99 % Irlanda Issa BRUSHER MACHINE.MENDING CARRIER Work Phone: [facility] 07-26-2023 07:25-0400 Systolic blood pressure 158 mm[Hg] Irlanda Issa BRUSHER MACHINE.MENDING CARRIER Work Phone: [facility] 07-17-2023 14:49-0400 Body temperature 98.01 [degF] Handy Henderson DO Work Phone: [facility] 07-17-2023 14:49-0400 Body weight 127.01 kg Handy Henderson DO Work Phone: [facility] 07-17-2023 14:49-0400 Diastolic blood pressure 60 mm[Hg] Handy Henderson DO Work Phone: [facility] 07-17-2023 14:49-0400 Heart rate 80 /min Handy Henderson DO Work Phone: [facility] 07-17-2023 14:49-0400 Respiratory rate 16 /min Handy Henderson DO Work Phone: [facility] 07-17-2023 14:49-0400 Systolic blood pressure 130 mm[Hg] Handy Henderson DO Work Phone: [facility] 06-21-2023 07:19-0400 Body height 177.[address] Handy Henderson Work Phone: [facility] 06-21-2023 07:19-0400 Body weight [address] Handy Henderson Work Phone: [facility] 06-20-2023 09:20-0400 Body mass index (BMI) [Ratio] 40.1 kg/m2 Dr. Handy Henderson Work Phone: [facility] 06-09-2023 13:29-0500 Body temperature 98.1 [degF] Kerline Hectork BRUSHER MACHINE.MENDING CARRIER Work Phone: [facility] 06-09-2023 13:29-0500 Body weight 131 kg Kerline Sridevi BRUSHER MACHINE.MENDING CARRIER Work Phone: [facility] 06-09-2023 13:29-0500 Diastolic blood pressure 72 mm[Hg] Kerline Sridevi BRUSHER MACHINE.MENDING CARRIER Work Phone: [facility] 06-09-2023 13:29-0500 Heart rate 76 /min Kerline Sridevi BRUSHER MACHINE.MENDING CARRIER Work Phone: [facility] 06-09-2023 13:29-0500 Respiratory rate 16 /min Kerline Sridevi BRUSHER MACHINE.MENDING CARRIER Work Phone: [facility] 06-09-2023 13:29-0500 SaO2% (BldA) [Mass fraction] 98 % Kerline Sridevi BRUSHER MACHINE.MENDING CARRIER Work Phone: [facility] 06-09-2023 13:29-0500 Systolic blood pressure 134 mm[Hg] Kerline Sridevi BRUSHER MACHINE.MENDING CARRIER Work Phone: [facility] 05-07-2023 13:00-0500 Body height 177.[address] Handy Henderson Work Phone: 7(168)613-691181 [place] [address] 05-07-2023 12:58-0500 Body mass index (BMI) [Ratio] 40 kg/m2 Dr. Handy Henderson Work Phone: 2(589)586-334581 [place] [address] 05-07-2023 12:58-0500 Body weight 126.[address] Handy Henderson Work Phone: 2(076)778-523581 [place] [address] 05-07-2023 12:58-0500 Diastolic blood pressure 78 mm[Hg] Dr. Handy Henderson Work Phone: 2(190)845-314881 [place] [address] 05-07-2023 12:58-0500 Heart rate 70 /min Dr. Handy Henderson Work Phone: 9(341)506-685981 [place] [address] 05-07-2023 12:58-0500 Respiratory rate 22 /min Dr. Handy Henderson Work Phone: 3(147)802-962081 [place] [address] 05-07-2023 12:58-0500 SaO2% (BldA) [Mass fraction] 99 % Dr. Handy Henderson Work Phone: 0(296)047-789281 [place] [address] 05-07-2023 12:58-0500 Systolic blood pressure 140 mm[Hg] Dr. Handy Henderson Work Phone: 0(713)166-271081 [place] [address] 04-25-2023 14:31-0500 Diastolic blood pressure 72 mm[Hg] Dr. Handy Henderson Work Phone: 3(380)093-505363 [place] [address] 04-25-2023 14:31-0500 Systolic blood pressure 132 mm[Hg] Dr. Handy Henderson Work Phone: 6(473)708-875063 [place] [address] 04-25-2023 13:00-0500 Heart rate 74 /min Dr. Handy Henderson Work Phone: 1(228)224-533163 [place] [address] 04-25-2023 13:00-0500 Respiratory rate 18 /min Dr. Handy Henderson Work Phone: 0(873)358-299963 [place] [address] 04-25-2023 13:00-0500 SaO2% (BldA) [Mass fraction] 98 % Dr. Handy Henderson Work Phone: 2(327)340-136663 [place] [address] 04-25-2023 10:52-0500 Body height 177.[address] Handy Henderson Work Phone: 9(556)608-948563 [place] [address] 04-25-2023 10:52-0500 Body mass index (BMI) [Ratio] 40.5 kg/m2 Dr. Handy Henderson Work Phone: 0(303)483-038863 [place] [address] 04-25-2023 10:52-0500 Body temperature 97.8 [degF] Dr. Handy Henderson Work Phone: 8(371)621-290163 [place] [address] 04-25-2023 10:52-0500 Body weight 128.[address] Handy Henderson Work Phone: 9(261)750-118563 [place] [address] 04-12-2023 14:05-0500 Body temperature 99.1 [degF] Dr. Handy Henderson Work Phone: 3(514)060-283981 [place] [address] 04-12-2023 14:05-0500 Body weight [address] Handy Henderson Work Phone: 3(498)230-328381 [place] [address] 04-12-2023 14:05-0500 Diastolic blood pressure 75 mm[Hg] Dr. Handy Henderson Work Phone: 3(838)716-517863 [place] [address] 04-12-2023 14:05-0500 Heart rate 76 /min Dr. Handy Henderson Work Phone: 2(471)634-605863 [place] [address] 04-12-2023 14:05-0500 Respiratory rate 16 /min Dr. Handy Henderson Work Phone: 7(434)006-069863 [place] [address] 04-12-2023 14:05-0500 SaO2% (BldA) [Mass fraction] 98 % Dr. Handy Henderson Work Phone: 6(285)208-395963 [place] [address] 04-12-2023 14:05-0500 Systolic blood pressure 143 mm[Hg] Dr. Handy Henderson Work Phone: 2(165)836-875063 [place] [address] 02-14-2023 13:10-0500 Body height 177.[address] Handy Henderson Work Phone: 0(410)413-180763 [place] [address] 02-14-2023 13:10-0500 Body mass index (BMI) [Ratio] 38.6 kg/m2 Dr. Handy Henderson Work Phone: 5(485)459-781563 [place] [address] 02-14-2023 13:10-0500 Body temperature 98 [degF] Dr. Handy Henderson Work Phone: 7(070)128-376963 [place] [address] 02-14-2023 13:10-0500 Body weight 122.[address] Handy Henderson Work Phone: 4(201)453-224863 [place] [address] 02-14-2023 13:10-0500 Diastolic blood pressure 80 mm[Hg] Dr. Handy Henderson Work Phone: 9(909)694-840463 [place] [address] 02-14-2023 13:10-0500 Heart rate 72 /min Dr. Handy Henderson Work Phone: 4(245)821-982963 [place] [address] 02-14-2023 13:10-0500 Respiratory rate 16 /min Dr. Handy Henderson Work Phone: 7(478)133-776863 [place] [address] 02-14-2023 13:10-0500 SaO2% (BldA) [Mass fraction] 97 % Dr. Handy Henderson Work Phone: 6(505)128-480863 [place] [address] 02-14-2023 13:10-0500 Systolic blood pressure 136 mm[Hg] Dr. Handy Henderson Work Phone: [facility] 11-08-2022 11:08-0400 Body weight 117.48 kg Maya Holguin BRUSHER MACHINE.MENDING CARRIER Work Phone: [facility] 11-08-2022 11:08-0400 Diastolic blood pressure 64 mm[Hg] Maya Holguin BRUSHER MACHINE.MENDING CARRIER Work Phone: [facility] 11-08-2022 11:08-0400 Heart rate 71 /min Maya Holguin BRUSHER MACHINE.MENDING CARRIER Work Phone: [facility] 11-08-2022 11:08-0400 Respiratory rate 18 /min Maya Holguin BRUSHER MACHINE.MENDING CARRIER Work Phone: [facility] 11-08-2022 11:08-0400 Systolic blood pressure 138 mm[Hg] Maya Holguin BRUSHER MACHINE.MENDING CARRIER Work Phone: [facility] 11-03-2022 14:06-0400 Body temperature 97.59 [degF] Kerline Sridevi BRUSHER MACHINE.MENDING CARRIER Work Phone: [facility] 11-03-2022 14:06-0400 Body weight 117.03 kg Kerline Sridevi BRUSHER MACHINE.MENDING CARRIER Work Phone: [facility] 11-03-2022 14:06-0400 Diastolic blood pressure 78 mm[Hg] Kerline Sridevi BRUSHER MACHINE.MENDING CARRIER Work Phone: [facility] 11-03-2022 14:06-0400 Heart rate 72 /min Kerline Sridevi BRUSHER MACHINE.MENDING CARRIER Work Phone: [facility] 11-03-2022 14:06-0400 Respiratory rate 20 /min Kerline Sridevi BRUSHER MACHINE.MENDING CARRIER Work Phone: [facility] 11-03-2022 14:06-0400 SaO2% (BldA) [Mass fraction] 98 % Kerline Sridevi BRUSHER MACHINE.MENDING CARRIER Work Phone: [facility] 11-03-2022 14:06-0400 Systolic blood pressure 130 mm[Hg] Kerline Sridevi SHANIQUA Work Phone: [facility] 10-17-2022 14:14-0400 Body temperature 97.7 [degF] Handy Henderson DO Work Phone: [facility] 10-17-2022 14:14-0400 Body weight 112.95 kg Handy Henderson DO Work Phone: [facility] 10-17-2022 14:14-0400 Diastolic blood pressure 74 mm[Hg] Handy Henderson DO Work Phone: [facility] 10-17-2022 14:14-0400 Heart rate 80 /min Handy Henderson DO Work Phone: [facility] 10-17-2022 14:14-0400 Respiratory rate 16 /min Handy Henderson DO Work Phone: [facility] 10-17-2022 14:14-0400 Systolic blood pressure 150 mm[Hg] Handy Henderson DO Work Phone: [facility] 10-05-2022 13:23-0400 Body mass index (BMI) [Ratio] 36.1 kg/m2 Migel Gómez MD Work Phone: [facility] 10-05-2022 13:23-0400 Body temperature 98.1 [degF] Migel Gómez MD Work Phone: [facility] 10-05-2022 13:23-0400 Body weight 114.13 kg Migel Gómez MD Work Phone: [facility] 10-05-2022 13:23-0400 Diastolic blood pressure 69 mm[Hg] Migel Gómez MD Work Phone: [facility] 10-05-2022 13:23-0400 Heart rate 76 /min Migel Gómez MD Work Phone: [facility] 10-05-2022 13:23-0400 Systolic blood pressure 142 mm[Hg] Migel Gómez MD Work Phone: [facility] 07-24-2022 14:30-0400 Body weight 112.76 kg Tara Jimmy BRUSHER MACHINE.MENDING CARRIER Work Phone: [facility] 07-24-2022 14:30-0400 Diastolic blood pressure 72 mm[Hg] Tara Jimmy BRUSHER MACHINE.MENDING CARRIER Work Phone: [facility] 07-24-2022 14:30-0400 Heart rate 72 /min Tara Jimmy BRUSHER MACHINE.MENDING CARRIER Work Phone: [facility] 07-24-2022 14:30-0400 Respiratory rate 18 /min Tara Jimmy BRUSHER MACHINE.MENDING CARRIER Work Phone: [facility] 07-24-2022 14:30-0400 SaO2% (BldA) [Mass fraction] 100 % Tara Jimmy BRUSHER MACHINE.MENDING CARRIER Work Phone: [facility] 07-24-2022 14:30-0400 Systolic blood pressure 142 mm[Hg] Tara Jimmy BRUSHER MACHINE.MENDING CARRIER Work Phone: [facility] 05-10-2022 14:02-0500 Body temperature 97.2 [degF] Handy Henderson DO Work Phone: [facility] 05-10-2022 14:02-0500 Body weight 114.76 kg Handy Henderson DO Work Phone: [facility] 05-10-2022 14:02-0500 Diastolic blood pressure 74 mm[Hg] Handy Henderson DO Work Phone: [facility] 05-10-2022 14:02-0500 Heart rate 88 /min Handy Henderson DO Work Phone: [facility] 05-10-2022 14:02-0500 Respiratory rate 20 /min Handy Henderson DO Work Phone: [facility] 05-10-2022 14:02-0500 Systolic blood pressure 128 mm[Hg] Handy Henderson DO Work Phone: [facility] 03-17-2022 12:52-0500 Body height 177.[address] Handy Henderson Work Phone: 1(399)976-276063 [place] [address] 03-17-2022 12:52-0500 Body mass index (BMI) [Ratio] 35.7 kg/m2 Dr. Handy Henderson Work Phone: 4(825)304-791063 [place] [address] 03-17-2022 12:52-0500 Body weight 112.[address] Handy Henderson Work Phone: 4(249)779-326663 [place] [address] 03-17-2022 12:52-0500 Diastolic blood pressure 87 mm[Hg] Dr. Handy Henderson Work Phone: 5(226)669-351963 [place] [address] 03-17-2022 12:52-0500 Heart rate 70 /min Dr. Handy Henderson Work Phone: 1(961)063-914663 [place] [address] 03-17-2022 12:52-0500 Respiratory rate 20 /min Dr. Handy Henderson Work Phone: 5(529)361-155963 [place] [address] 03-17-2022 12:52-0500 SaO2% (BldA) [Mass fraction] 100 % Dr. Handy Henderson Work Phone: 1(551)069-054363 [place] [address] 03-17-2022 12:52-0500 Systolic blood pressure 140 mm[Hg] Dr. Handy Henderson Work Phone: 1(186)536-791663 [place] [address] 02-22-2022 09:46-0500 Body mass index (BMI) [Ratio] 34.7 kg/m2 Dr. Handy Henderson Work Phone: 8(763)263-920763 [place] [address] 02-22-2022 09:46-0500 Body temperature 97.3 [degF] Dr. Handy Henderson Work Phone: 6(581)617-970763 [place] [address] 02-22-2022 09:46-0500 Body weight 109.[address] Handy Henderson Work Phone: 9(767)623-204963 [place] [address] 02-22-2022 09:46-0500 Diastolic blood pressure 78 mm[Hg] Dr. Handy Henderson Work Phone: [facility] 02-22-2022 09:46-0500 Heart rate 72 /min Dr. Handy Henderson Work Phone: [facility] 02-22-2022 09:46-0500 Respiratory rate 1 /min Dr. Handy Henderson Work Phone: [facility] 02-22-2022 09:46-0500 SaO2% (BldA) [Mass fraction] 97 % Dr. Handy Henderson Work Phone: [facility] 02-22-2022 09:46-0500 Systolic blood pressure 122 mm[Hg] Dr. Handy Henderson Work Phone: [facility] 02-06-2022 15:48-0500 Body temperature 96.01 [degF] Handy Henderson DO Work Phone: [facility] 02-06-2022 15:48-0500 Body weight 109.32 kg Handy Henderson DO Work Phone: [facility] 02-06-2022 15:48-0500 Diastolic blood pressure 70 mm[Hg] Handy Romerorison DO Work Phone: [facility] 02-06-2022 15:48-0500 Heart rate 80 /min Handy Romerorison DO Work Phone: [facility] 02-06-2022 15:48-0500 Respiratory rate 20 /min Handy Henderson DO Work Phone: [facility] 02-06-2022 15:48-0500 Systolic blood pressure 136 mm[Hg] Handy Henderson DO Work Phone: [facility] 01-30-2022 16:14-0400 Heart rate 76 /min [facility] 01-30-2022 16:14-0400 Respiratory rate 16 /min [facility] 01-30-2022 16:14-0400 SaO2% (BldA) [Mass fraction] 99 % [facility] 01-30-2022 13:00-0400 Diastolic blood pressure 70 mm[Hg] [facility] 01-30-2022 13:00-0400 Systolic blood pressure 143 mm[Hg] [facility] 01-30-2022 09:32-0400 Body height 177.8 cm [facility] Work Phone: 01-30-2022 09:32-0400 Body mass index (BMI) [Ratio] 36.1 kg/m2 [facility] 01-30-2022 09:32-0400 Body temperature 97 [degF] [facility] 01-30-2022 09:32-0400 Body weight 114.3 kg [facility] 01-07-2022 09:48-0400 Diastolic blood pressure 82 mm[Hg] George Pacheco MD Work Phone: [facility] 01-07-2022 09:48-0400 Heart rate 78 /min George Pacheco MD Work Phone: [facility] 01-07-2022 09:48-0400 Systolic blood pressure 146 mm[Hg] George Pacheco MD Work Phone: [facility] 12-12-2021 12:59-0400 Diastolic blood pressure 82 mm[Hg] George Pacheco MD Work Phone: [facility] 12-12-2021 12:59-0400 Heart rate 78 /min George Pacheco MD Work Phone: [facility] 12-12-2021 12:59-0400 Systolic blood pressure 146 mm[Hg] George Pacheco MD Work Phone: [facility] 10-13-2021 14:38-0400 Body mass index (BMI) [Ratio] 36.45 kg/m2 Migel Gómez MD Work Phone: [facility] 10-13-2021 14:38-0400 Body temperature 98.1 [degF] Migel Gómez MD Work Phone: [facility] 10-13-2021 14:38-0400 Body weight 115.21 kg Migel Gómez MD Work Phone: [facility] 10-13-2021 14:38-0400 Diastolic blood pressure 71 mm[Hg] Migel Gómez MD Work Phone: [facility] 10-13-2021 14:38-0400 Heart rate 69 /min Migel Gómez MD Work Phone: [facility] 10-13-2021 14:38-0400 Systolic blood pressure 144 mm[Hg] Migel Gómez MD Work Phone: [facility] 09-20-2021 09:35-0400 Body height 177.[address] Handy Henderson Work Phone: [facility] Work Phone: 09-20-2021 09:35-0400 Body mass index (BMI) [Ratio] 37.3 kg/m2 Dr. Handy Henderson Work Phone: [facility] Work Phone: 09-20-2021 09:35-0400 Body weight 117.[address] Handy Henderson Work Phone: [facility] Work Phone: 09-20-2021 09:35-0400 Diastolic blood pressure 77 mm[Hg] Dr. Handy Henderson Work Phone: [facility] Work Phone: 09-20-2021 09:35-0400 Heart rate 76 /min Dr. Handy Henderson Work Phone: [facility] Work Phone: 09-20-2021 09:35-0400 Respiratory rate 16 /min Dr. Handy Henderson Work Phone: [facility] Work Phone: 09-20-2021 09:35-0400 SaO2% (BldA) [Mass fraction] 98 % Dr. Handy Henderson Work Phone: [facility] Work Phone: 09-20-2021 09:35-0400 Systolic blood pressure 144 mm[Hg] Dr. Handy Henderson Work Phone: [facility] Work Phone: 08-17-2021 14:26-0400 Body temperature 97 [degF] Handy Romerorison DO Work Phone: [facility] 08-17-2021 14:26-0400 Body weight 116.12 kg Handy Henderson DO Work Phone: [facility] 08-17-2021 14:26-0400 Diastolic blood pressure 60 mm[Hg] Handy Romerorison DO Work Phone: [facility] 08-17-2021 14:26-0400 Heart rate 64 /min Handy Henderson DO Work Phone: [facility] 08-17-2021 14:26-0400 Respiratory rate 16 /min Handy Henderson DO Work Phone: [facility] 08-17-2021 14:26-0400 Systolic blood pressure 124 mm[Hg] Handy Henderson DO Work Phone: [facility] 08-08-2021 15:48-0400 Body temperature 97.7 [degF] Elisa Bogner PA-C Work Phone: [facility] 08-08-2021 15:48-0400 Body weight 116.12 kg Elisa Bogner PA-C Work Phone: [facility] 08-08-2021 15:48-0400 Diastolic blood pressure 62 mm[Hg] Elisa Bogner PA-C Work Phone: [facility] 08-08-2021 15:48-0400 Heart rate 85 /min Elisa Bogner PA-C Work Phone: [facility] 08-08-2021 15:48-0400 Respiratory rate 21 /min Elisa Bogner PA-C Work Phone: [facility] 08-08-2021 15:48-0400 SaO2% (BldA) [Mass fraction] 99 % Elisa Andre PA-C Work Phone: [facility] 08-08-2021 15:48-0400 Systolic blood pressure 138 mm[Hg] Elisa Andre PA-C Work Phone: [facility] 07-28-2021 08:32-0400 Body height 177.[address] Handy Henderson Work Phone: [facility] Work Phone: 07-28-2021 08:32-0400 Body mass index (BMI) [Ratio] 36.7 kg/m2 Dr. Handy Henderson Work Phone: [facility] Work Phone: 07-28-2021 08:32-0400 Body temperature 97.1 [degF] Dr. Handy Henderson Work Phone: [facility] Work Phone: 07-28-2021 08:32-0400 Body weight 116.[address] Handy Henderson Work Phone: [facility] Work Phone: 07-28-2021 08:32-0400 Diastolic blood pressure 84 mm[Hg] Dr. Handy Henderson Work Phone: [facility] Work Phone: 07-28-2021 08:32-0400 Heart rate 77 /min Dr. Handy Henderson Work Phone: [facility] Work Phone: 07-28-2021 08:32-0400 Respiratory rate 18 /min Dr. Handy Henderson Work Phone: [facility] Work Phone: 07-28-2021 08:32-0400 SaO2% (BldA) [Mass fraction] 100 % Dr. Handy Henderson Work Phone: [facility] Work Phone: 07-28-2021 08:32-0400 Systolic blood pressure 126 mm[Hg] Dr. Handy Henderson Work Phone: [facility] Work Phone: 07-11-2021 14:08-0400 Body weight 113.58 kg Maya Zurawick BRUSHER MACHINE.MENDING CARRIER Work Phone: [facility] 07-11-2021 14:08-0400 Diastolic blood pressure 62 mm[Hg] Maya Zurawick BRUSHER MACHINE.MENDING CARRIER Work Phone: [facility] 07-11-2021 14:08-0400 Heart rate 72 /min Maya Zurawick BRUSHER MACHINE.MENDING CARRIER Work Phone: [facility] 07-11-2021 14:08-0400 Respiratory rate 18 /min Maya Zurawick BRUSHER MACHINE.MENDING CARRIER Work Phone: [facility] 07-11-2021 14:08-0400 Systolic blood pressure 130 mm[Hg] Maya Zurawick BRUSHER MACHINE.MENDING CARRIER Work Phone: [facility] 07-06-2021 15:22-0400 Body mass index (BMI) [Ratio] 35.79 kg/m2 Sharon Acuna MD Work Phone: [facility] 07-06-2021 15:22-0400 Body temperature 97.9 [degF] Sharon Acuna MD Work Phone: [facility] 07-06-2021 15:22-0400 Body weight 113.13 kg Sharon Acuna MD Work Phone: [facility] 07-06-2021 15:22-0400 Diastolic blood pressure 76 mm[Hg] Sharon Acuna MD Work Phone: [facility] 07-06-2021 15:22-0400 Heart rate 74 /min Sharon Acuna MD Work Phone: [facility] 07-06-2021 15:22-0400 Systolic blood pressure 132 mm[Hg] Sharon Acuna MD Work Phone: [facility] 06-21-2021 11:12-0400 Body temperature 98.01 [degF] Dashawn Zimmer DO Work Phone: [facility] 06-21-2021 11:12-0400 Diastolic blood pressure 69 mm[Hg] Dashawn Zimmer DO Work Phone: [facility] 06-21-2021 11:12-0400 Heart rate 73 /min Dashawn Zimmer DO Work Phone: [facility] 06-21-2021 11:12-0400 Respiratory rate 16 /min Dashawn Zimmer DO Work Phone: [facility] 06-21-2021 11:12-0400 SaO2% (BldA) [Mass fraction] 98 % Dashawn Zimmer DO Work Phone: [facility] 06-21-2021 11:12-0400 Systolic blood pressure 136 mm[Hg] Dashawn Zimmer DO Work Phone: [facility] 06-20-2021 08:38-0400 Body mass index (BMI) [Ratio] 34.62 kg/m2 Dashawn Zimmer DO Work Phone: [facility] 06-20-2021 08:38-0400 Body weight 109.45 kg Dashawn Zimmer DO Work Phone: [facility] 06-17-2021 17:32-0400 Body height 177.8 cm Dashawn Zimmer DO Work Phone: [facility] 06-11-2021 20:30-0500 Body temperature 98 [degF] Dr. Handy Henderson Work Phone: [facility] Work Phone: 06-11-2021 20:30-0500 Diastolic blood pressure 93 mm[Hg] Dr. Handy Henderson Work Phone: [facility] Work Phone: 06-11-2021 20:30-0500 Heart rate 82 /min Dr. Handy Henderson Work Phone: [facility] Work Phone: 06-11-2021 20:30-0500 Respiratory rate 16 /min Dr. Handy Henderson Work Phone: [facility] Work Phone: 06-11-2021 20:30-0500 SaO2% (BldA) [Mass fraction] 100 % Dr. Handy Henderson Work Phone: [facility] Work Phone: 06-11-2021 20:30-0500 Systolic blood pressure 157 mm[Hg] Dr. Handy Henderson Work Phone: [facility] Work Phone: 06-11-2021 06:59-0500 Body weight 109.[address] Handy Henderson Work Phone: [facility] Work Phone: 06-10-2021 12:49-0500 Body mass index (BMI) [Ratio] 34.7 kg/m2 Dr. Handy Henderson Work Phone: [facility] Work Phone: 06-09-2021 13:05-0500 Body temperature 98.4 [degF] Dr. Handy Henderson Work Phone: [facility] Work Phone: 06-09-2021 13:05-0500 Diastolic blood pressure 76 mm[Hg] Dr. Handy Henderson Work Phone: [facility] Work Phone: 06-09-2021 13:05-0500 Heart rate 78 /min Dr. Handy Hendreson Work Phone: [facility] Work Phone: 06-09-2021 13:05-0500 Respiratory rate 14 /min Dr. Handy Henderson Work Phone: [facility] Work Phone: 06-09-2021 13:05-0500 SaO2% (BldA) [Mass fraction] 99 % Dr. Handy Henderson Work Phone: [facility] Work Phone: 06-09-2021 13:05-0500 Systolic blood pressure 142 mm[Hg] Dr. Handy Henderson Work Phone: [facility] Work Phone: 06-09-2021 11:05-0500 Body mass index (BMI) [Ratio] 34.7 kg/m2 Dr. Handy Henderson Work Phone: [facility] Work Phone: 06-09-2021 11:05-0500 Body weight [address] Handy Henderson Work Phone: [facility] Work Phone: 06-08-2021 04:37-0500 Diastolic blood pressure 95 mm[Hg] Handy Ogon Other Phone: [facility] 06-08-2021 04:37-0500 Heart rate 72 /min Handy Romerorison Other Phone: [facility] 06-08-2021 04:37-0500 Respiratory rate 16 /min Handy Henderson Other Phone: [facility] 06-08-2021 04:37-0500 SaO2% (BldA) [Mass fraction] 100 % Handy Ogon Other Phone: [facility] 06-08-2021 04:37-0500 Systolic blood pressure 189 mm[Hg] Handy Romerorison Other Phone: [facility] 05-30-2021 08:09-0500 Body mass index (BMI) [Ratio] 34.7 kg/m2 Dr. Handy Henderson Work Phone: [facility] Work Phone: 05-30-2021 08:09-0500 Body temperature 98.2 [degF] Dr. Handy Henderson Work Phone: [facility] Work Phone: 05-30-2021 08:09-0500 Body weight 109.[address] Handy Henderson Work Phone: [facility] Work Phone: 05-30-2021 08:09-0500 Diastolic blood pressure 84 mm[Hg] Dr. Handy Henderson Work Phone: [facility] Work Phone: 05-30-2021 08:09-0500 Heart rate 84 /min Dr. Handy Henderson Work Phone: [facility] Work Phone: 05-30-2021 08:09-0500 Respiratory rate 18 /min Dr. Handy Henderson Work Phone: [facility] Work Phone: 05-30-2021 08:09-0500 SaO2% (BldA) [Mass fraction] 98 % Dr. Handy Henderson Work Phone: [facility] Work Phone: 05-30-2021 08:09-0500 Systolic blood pressure 167 mm[Hg] Dr. 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 Handy Henderson DO Work Phone: [facility] Work Phone: Start: 08-11-2024 End: 08-11-2024 Patient encounter procedure Triny Palmer Work Phone: Podiatry Comment on above: Onychomycosis (Prima ry Dx); Pain in toe of left foot; Pain in toe of right foot; Diabetic polyneuropathy associated with type 2 diabetes mellitus (HCC); Venous insufficiency; Nevus Start: 08-11-2024 End: 08-11-2024 ambulatory TRINY PALMER Facility:[facility] Start: 08-11-2024 End: 08-11-2024 ambulatory MIGEL GÓMEZ Facility:[facility] Start: 07-07-2024 Non-patient / Non-visit [facility]. Giselle ZUÑIGA -[facility] Start: 07-07-2024 End: 07-07-[address] Handy Henderson DO Work Phone: [facility] Work Phone: Start: 07-07-2024 End: 07-07-2024 Patient encounter procedure Radha BRONSON -[facility] Work Phone: Start: 07-07-2024 End: 07-07-2024 ambulatory Handy Henderson Facility:[facility] Start: 06-17-2024 End: 06-17-2024 ambulatory HANDY HENDERSON Facility:[facility] Start: 06-17-2024 End: 06-17-2024 Patient encounter procedure Handy Henderson DO Work Phone: [facility] Comment on above: Fatigue, unspecified type (Primary Dx); Hypercholesteremia; Vitamin D deficiency; LVH (left ventricular hypertrophy); Aortic dilatation (HCC); Essential hypertension; 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); NORBERTO (obstructive sleep apnea); Status post kidney transplant; Chronic midline low back pain without sciatica Start: 06-03-2024 End: 06-03-2024 Patient encounter procedure Radha BRONSON -[facility] Work Phone: Start: 06-03-2024 End: 06-03-2024 ambulatory Handy Henderson Facility:[facility] Start: 06-03-2024 End: 06-03-2024 ambulatory MIGEL GÓMEZ Facility:[facility] Start: 05-23-2024 End: 05-23-2024 ambulatory GEORGE PACHECO Facility:[facility] Start: 05-23-2024 End: 05-23-2024 Patient encounter procedure [...] Start: 05-12-2024 End: 05-12-2024 ambulatory TRINY PALMER Facility:[facility] Start: 05-12-2024 End: 05-12-2024 Patient encounter procedure Triny Palmer Work Phone: Podiatry Comment on above: Onychomycosis (Prima ry Dx); Pain in toe of left foot; Pain in toe of right foot; Diabetic polyneuropathy associated with type 2 diabetes mellitus (HCC); Venous insufficiency Start: 05-10-2024 End: 05-10-2024 ambulatory HANDY L HENDERSON Facility:[facility] Start: 05-10-2024 End: 05-10-2024 Patient encounter procedure Nikky Chen APRN.MENDING CARRIER Work Phone: [facility] Comment on above: Enteritis due to Rot avirus (Primary Dx) Start: 04-11-2024 End: 04-11-2024 Refill George Pacheco MD Work Phone: Ophthalmology Comment on above: Refill Request Start: 03-12-2024 End: 03-12-2024 ambulatory HANDY L HENDERSON Facility:[facility] Start: 02-21-2024 End: 02-21-2024 ambulatory HANDY L HENDERSON Facility:[facility] Start: 02-13-2024 End: 02-13-2024 ambulatory Handy Henderson Facility[place] Start: 02-04-2024 End: 02-04-2024 ambulatory Handy Henderson Facility:[facility] Start: 01-28-2024 End: 01-28-2024 ambulatory Reyes Perea PT Work Phone: [facility] Comment on above: Degeneration of inte rvertebral disc of lumbar region with discogenic back pain (Primary Dx) Start: 01-15-2024 End: 03-13-2024 Telephone encounter Handy Romerorison DO Work Phone: [facility] Comment on above: Results Start: 01-15-2024 End: 01-15-2024 ambulatory Reyes Perea PT Work Phone: [facility] Comment on above: Degeneration of inte rvertebral disc of lumbar region with discogenic back pain (Primary Dx) Start: 12-13-2023 End: 12-17-2023 Telephone encounter Handy Henderson DO Work Phone: [facility] Comment on above: Results Start: 12-11-2023 End: 12-11-2023 Subsequent hospital visit by physician Kaleigh [facility] Work Phone: Radiology Comment on above: Chronic midline low back pain without sciatica [M54.50, G89.29] Start: 12-11-2023 End: 12-11-2023 ambulatory HANDY L HENDERSON Facility:[facility] Start: 12-11-2023 End: 12-11-2023 Patient encounter procedure Handy Henderson DO Work Phone: [facility] Comment on above: Chronic midline low back pain without sciatica (Primary Dx); Need for influenza vaccination; Lumbar paraspinal muscle spasm Start: 12-10-2023 End: 12-10-2023 ambulatory HANDY L HENDERSON Facility:[facility] Start: 12-04-2023 End: 12-04-2023 ambulatory Handy Henderson Facility:[facility] Start: 11-27-2023 End: 11-27-2023 ambulatory HANDY L HENDERSON Facility:[facility] Start: 11-27-2023 End: 11-27-2023 Patient encounter procedure Triny Palmer Work Phone: Podiatry Comment on above: Onychomycosis (Prima ry Dx); Pain in toe of left foot; Pain in toe of right foot; Diabetic polyneuropathy associated with type 2 diabetes mellitus (HCC) Start: 11-12-2023 End: 11-12-2023 ambulatory HANDY L HENDERSON Facility:[facility] Start: 11-12-2023 End: 11-12-2023 Patient encounter [...] Hypercholesteremia Start: 11-11-2023 ambulatory Handy Henderson Facilit y:[facility] Start: 11-07-2023 End: 11-07-2023 ambulatory HANDY L HENDERSON Facility:[facility] Start: 11-07-2023 End: 11-07-2023 Patient encounter procedure Glynn Leon MD Work Phone: [facility] Comment on above: Acute non-recurrent sinusitis, unspecified location (Primary Dx) Start: 11-06-2023 End: 11-06-2023 Office outpatient visit 25 minutes Mirna Stuart APRN-MENDING CARRIER Work Phone: [facility] Comment on above: Kidney replaced by t ransplant (Primary Dx); Aftercare following organ transplant; Immunosuppressed status; Abnormal blood chemistry Start: 11-06-2023 ambulatory HANDY L HENDERSON Facil ity:[facility] Start: 10-25-2023 ambulatory Abbey Rousseau Facility:[facility] Start: 10-25-2023 End: 10-31-2023 ambulatory Abbey Rousseau Facility:[facility] Start: 10-11-2023 ambulatory Abbey Rousseau Facility:[facility] Start: 09-28-2023 End: 09-28-2023 ambulatory HANDY L HENDERSON Facility:[facility] Start: 09-27-2023 ambulatory Abbey Rousseau Facility:[facility] Start: 09-27-2023 End: 09-30-2023 ambulatory Handy Henderson Facility:[facility] Start: 09-20-2023 ambulatory Handy Henderson Facilit y:[facility] [...] End: 07-26-2023 Patient encounter procedure Irlanda Issa MENDING CARRIER Work Phone: [facility] Comment on above: COPD with exacerbati on (HCC) (Primary Dx) Start: 07-17-2023 End: 07-17-2023 Patient encounter procedure Handy Henderson DO Work Phone: [facility] Comment on above: Bilateral leg edema (Primary [...] / Non-visit Dr. Cristiane Henderson Work Phone: [facility] Start: 06-21-2023 End: 06-21-2023 Admission to same day surgery center Dr. Handy Henderson Work Phone: [facility]-Head Of Mathematics/Special Procedures Work Phone: Start: 06-21-2023 End: 06-21-[address] Handy Henderson Work Phone: [facility] Work Phone: Start: 06-15-2023 Telephone encounter Handy steen DO Work Phone: [facility] Comment on above: c-pap supplies/form/ DASCO Start: 06-10-2023 Telephone encounter [facility] Work Phone: [facility] Comment on above: Medication Problem Start: 06-09-2023 End: 06-09-2023 Patient encounter procedure Kerline Laureano BRUSHER MACHINE.MENDING CARRIER Work Phone: [facility] Comment on above: Acute non-recurrent sinusitis, unspecified location (Primary Dx) Start: 05-31-2023 End: 05-31-2023 Patient encounter procedure Triny Palmer Work Phone: Podiatry Comment on above: Venous insufficiency (Primary Dx) Start: 05-29-2023 Refill Handy billingsley DO Work Phone: [facility] Comment on above: Refill Request Start: 05-24-2023 Telephone encounter Handy steen DO Work Phone: [facility] Start: 05-14-2023 Telephone encounter Handy steen DO Work Phone: [facility] Comment on above: Office Note Needing signed Start: 05-07-2023 End: 05-07-[address] Handy Henderson Work Phone: [facility] Work Phone: Start: 05-07-2023 End: 05-07-[address] Handy Henderson Work Phone: [facility] Work Phone: Start: 05-03-2023 End: 05-03-2023 Patient encounter procedure Triny Palmer Work Phone: Podiatry Comment on above: Skin ulcer of toe of right foot with fat layer exposed (HCC) (Primary Dx); Hammertoe of right foot; Venous insufficiency; Venous stasis dermatitis Start: 04-25-2023 End: 04-25-2023 Emergency department patient visit Dr. Handy Henderson Work Phone: [facility]-Emergency Department Work Phone: Start: 04-12-2023 End: 04-12-[address] Handy Henderson Work Phone: [facility] Work Phone: Start: 04-06-2023 Non-patient / Non-visit Dr. Cristiane Henderson Work Phone: [facility] Start: 04-06-2023 End: 04-06-[address] Handy Henderson Work Phone: [facility] Work Phone: Start: 04-06-2023 End: 04-06-[address] Handy Henderson Work Phone: [facility]-Cardiovascul ar Services Work Phone: Start: 03-01-2023 End: 03-01-2023 Patient encounter procedure Triny Palmer Work Phone: Podiatry Comment on above: Skin ulcer of toe of right foot with fat layer exposed (HCC) (Primary Dx); Hammertoe of right foot; Venous insufficiency; Diabetic mononeuropathy associated with diabetes mellitus due to underlying condition (HCC) Start: 02-14-2023 End: 02-14-[address] Handy Henderson Work Phone: [facility] Work Phone: Start: 02-09-2023 Telephone encounter Handy steen DO Work Phone: [facility] [place] Comment on above: Need more informatio n for diabetic shoes Start: 01-16-2023 End: 01-16-2023 Patient encounter procedure Triny Palmer Work Phone: [...] 12-25-2022 End: 12-25-2022 Patient encounter procedure Triny Palmer Work Phone: Podiatry Comment on above: Skin ulcer of toe of right foot with fat layer exposed (HCC) (Primary Dx); Diabetic mononeuropathy associated with diabetes mellitus due to underlying condition (HCC); Hammertoe of right foot Start: 11-28-2022 End: 11-28-2022 Patient encounter procedure Triny Palmer Work Phone: Podiatry Comment on above: Skin ulcer of toe of right foot with fat layer exposed (HCC) (Primary Dx); Diminished pulses in lower extremity; Diabetic mononeuropathy associated with diabetes mellitus due to underlying condition (HCC) Start: 11-08-2022 End: 11-08-2022 Patient encounter procedure Maya Holguin APRN.MENDING CARRIER Work Phone: [facility] Comment on above: 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) (Primary Dx) Start: 11-03-2022 End: 11-03-2022 Patient encounter procedure Kerline Laureano APRN.MENDING CARRIER Work Phone: [facility] Comment on above: Sore on toe (Primary Dx) Start: 10-17-2022 End: 10-17-2022 Patient encounter procedure Handy Henderson DO Work Phone: [facility] Comment on above: Left hand pain (Prim [...] 10-12-2022 Refill Handy billingsley DO Work Phone: [facility] [place] Comment on above: Refill Request Start: 10-09-2022 [...] Phone: [facility] Comment on above: Other complication o f kidney transplant (Primary Dx) Start: 09-18-2022 End: 09-18-2022 Patient encounter procedure Jignesh Oliver MD Work Phone: Orthopaedics Comment on above: Closed nondisplaced fracture of base of fourth metacarpal bone of left hand, initial encounter (Primary Dx); Left hand pain; Moderate protein-calorie malnutrition (HCC) Start: 07-24-2022 End: 07-24-2022 Subsequent hospital visit by physician Kaleigh [facility] [place] Work Phone: Radiology Comment on above: Left hand pain [M79. 642] Start: 07-24-2022 End: 07-24-2022 Patient encounter procedure Tara Carballo APRN.MENDING CARRIER Work Phone: [facility] [place] Comment on above: Left hand pain (Prim warren Dx); Fall, sequela Start: 07-21-2022 Refill George denney MD Work Phone: Ophthalmology Comment on above: Refill Request Start: 07-10-2022 Refill Maya Ezio ALMAZAN.MENDING CARRIER Work Phone: [facility] [place] Comment on above: Refill Request Start: 07-06-2022 Refill Maya Holguinanalilia ALMAZAN.MENDING CARRIER Work Phone: [facility] [place] Comment on above: Med Change Request Start: 07-03-2022 Refill Maya Holguin SHANIQUA Work Phone: [facility] [place] Comment on above: Refill Request Start: 06-19-2022 [...] 06-12-2022 End: 06-12-2022 Patient encounter procedure Triny Spencer Work Phone: Podiatry Comment on above: Onychomycosis (Prima ry Dx); Pain in toe of left foot; Pain in toe of right foot; Other diabetic neurological complication associated with type 2 diabetes mellitus (HCC) Start: 06-09-2022 Refill Handy billingsley DO Work Phone: [facility] Comment on above: Refill Request (NEED S TODAY) Start: 05-10-2022 End: 05-10-2022 Patient encounter procedure Handy Henderson DO Work Phone: [facility] Comment on above: Essential hypertensi on (Primary Dx); URI, acute; Status post kidney transplant; 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 Handy Henderson Work Phone: [facility] Work Phone: Start: 04-28-2022 End: 04-28-[address] Handy Henderson Work Phone: [facility]-Laboratory Start: 03-17-2022 End: 03-17-[address] Handy Henderson Work Phone: [facility] Start: 03-07-2022 End: 03-07-2022 Patient encounter procedure Triny Palmer Work Phone: Podiatry Comment on above: Onychomycosis (Prima ry Dx); Pain in toe of left foot; Pain in toe of right foot; Other diabetic neurological complication associated with type 2 diabetes mellitus (HCC) Start: 02-22-2022 End: 02-22-[address] Handy Henderson Work Phone: [facility] Start: 02-06-2022 End: 02-06-2022 Patient encounter procedure Handy Henderson DO Work Phone: [facility] Comment on above: Acute dehydration (P rimary [...] 01-30-2022 End: 01-30-2022 Emergency department patient visit [facility]Emergency Department Start: 01-26-2022 Refill Handy billingsley DO Work Phone: [facility] Comment on above: Refill Request Start: 01-13-2022 End: 01-13-2022 Patient encounter procedure George Pacheco MD Work Phone: Ophthalmology Comment on above: Status post eye surg celestino (Primary Dx) Start: 01-12-2022 End: 01-12-[address] George Pacheco Facility:[id number] Start: 01-09-2022 End: 01-09-2022 Patient encounter procedure Rosaura Cloe OD Work Phone: Optometry Comment on above: Hyperopia, bilateral (Primary Dx); Regular astigmatism, bilateral; Pseudophakia Start: 01-09-2022 Telephone encounter Handy steen Work Phone: [facility] Comment on above: Results Start: 01-07-2022 End: [...] Start: 11-10-2021 End: 11-10-2021 OT/PT/Speech Visit Andrés Vergara [facility] Therapy Comment on above: Status post [...] Phone: [facility] Comment on above: Kidney replaced by t ransplant (Primary Dx); Mixed hyperlipidemia; Anemia, unspecified type; B-cell abnormality; Abnormal blood chemistry; Follow-up examination following treatment with high-risk medication Start: 10-11-2021 End: 10-11-2021 OT/PT/Speech Visit Andrés Frankel PT [facility] Physical Therapy Comment on above: Status post kidney t ransplant (Primary Dx); Chronic pain of both knees; Balance disorder; Hip pain Start: 10-07-2021 End: 10-07-2021 OT/PT/Speech Visit Theodora Mejia PTA Work Phone: [facility] Comment on above: Status post kidney t ransplant (Primary Dx); Chronic pain of both knees; Balance disorder; Hip pain Start: 10-04-2021 End: 10-04-2021 OT/PT/Speech Visit Theodora Mejia PTA Work Phone: [facility] Comment on above: Status post kidney t ransplant (Primary Dx); Chronic pain of both knees; Balance disorder; Hip pain Start: 09-29-2021 End: 09-29-2021 OT/PT/Speech Visit Andrés Frankel PT [facility] Physical Therapy Comment on above: Status post kidney t ransplant (Primary Dx); Chronic pain of both knees; Balance disorder; Hip pain Start: 09-23-2021 End: 09-23-2021 OT/PT/Speech Visit Theodora Mejia PTA Work Phone: [facility] Comment on above: Status post kidney t ransplant (Primary Dx); Chronic pain of both knees; Balance disorder; Hip pain Start: 09-20-2021 End: 09-20-[address] Handy Henderson Work Phone: [facility] Start: 09-13-2021 End: 09-13-2021 OT/PT/Speech Visit Andrés Frankel PT [facility] Physical Therapy Comment on above: Status post kidney t ransplant (Primary Dx); Hip pain; Chronic pain of both knees; Balance disorder Start: 09-12-2021 Telephone encounter Handy steen DO Work Phone: [facility] Comment on above: Home Health [facility] Start: 08-30-2021 Telephone encounter Maya fleming APRN.MENDING CARRIER Work Phone: [facility] Comment on above: HH certification and POC Start: 08-18-2021 Telephone encounter Ida koenig PA-C Work Phone: [facility] Comment on above: Results Start: 08-17-2021 End: 08-17-2021 Patient encounter procedure Handy Henderson DO Work Phone: [facility] Comment on above: Diarrhea, unspecifie d type (Primary Dx); Hypercholesteremia; Status post kidney transplant; Hip pain; Chronic pain of both knees; Balance disorder; Essential hypertension; 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); Essential hypertension; Hypercholesteremia Start: 07-06-2021 End: 07-06-2021 Office outpatient visit 10 minutes Sharon Acuna MD Work Phone: [facility] Comment on above: Kidney replaced by t ransplant (Primary Dx); Long-term use of immunosuppressant medication; Abnormal blood chemistry; High risk medication use; Immunosuppressed status; Aftercare following organ transplant; Other general symptoms and signs Start: 07-01-2021 Telephone encounter Handy steen DO Work Phone: [facility] [place] Comment on above: Home Health Update Start: 06-24-2021 Telephone encounter Handy steen DO Work Phone: [facility] [place] Comment on above: Home Health Orders Start: 06-22-2021 ambulatory [facility] Start: 06-12-2021 Non-patient / Non-visit Dr. Cristiane Henderson Work Phone: [facility] In[facility] Physicians Start: 06-11-2021 End: 06-21-2021 Evaluation and management of inpatient Dashawn Cazares Goran DO Work Phone: [id number] Comment on above: Encephalopathy Start: 06-11-2021 Non-patient / Non-visit Dr. Cristiane Henderson Work Phone: [facility] Start: 06-10-2021 End: 06-11-2021 Evaluation and management of inpatient Dr. Handy Henderson Work Phone: [facility] Start: 06-10-2021 Non-patient / Non-visit Dr. Cristiane Henderson Work Phone: [facility] Start: 06-09-2021 End: 06-09-2021 Emergency department patient visit Dr. Handy Henderson Work Phone: [facility]-Emergency Department Start: 06-08-2021 End: 06-08-2021 Emergency department patient visit Abraham Hammond [facility] Emergency 16 Start: 05-30-2021 End: 05-30-[address] Handy Henderson Work Phone: [facility] Start: 05-30-2021 End: 05-30-[address] Handy Henderson Work Phone: [place] [phone] Start: 05-30-[address] Handy Henderson Work Phone: [place] [phone] Start: 05-28-2021 End: 05-28-[address] Handy Henderson Work Phone: [place] [phone] Start: 05-28-[address] Handy Henderson Work Phone: [place] [phone] Start: 05-23-[address] Handy Henderson Work Phone: [place] [phone] Start: 05-19-[address] Handy Henderson Work Phone: [place] [phone] Start: 04-19-2021 End: 04-19-2021 Subsequent hospital visit by physician Xr [facility] Work Phone: Radiology Comment on above: Right hip pain [M25. 551] Start: 01-30-2018 Physical examination Handy corrigan DO Work Phone: [facility] Work Phone: Procedures Date Procedure Procedure [...] Start: 11-06-2023 Creatinine other source Mirna Stuart BRUSHER MACHINE-MENDING CARRIER Work Phone: Start: 11-06-2023 Urnls dip stick/tabl et reagent auto microscopy Mirna Stuart BRUSHER MACHINE-MENDING CARRIER Work Phone: Start: 09-11-2023 End: 09-11-2023 Visual field xm uni/bi w/interp extended exam George Pacheco MD Work Phone: Start: 11-28-2022 Cul bact xcpt urine blood/stool aerobic isol Triny Palmer Work Phone: Start: 10-09-2022 Fundus photography w/interpretation & report George Pacheco MD Work Phone: Start: 07-24-2022 Radex hand minimum 3 views aTra Carballo BRUSHER MACHINE.MENDING CARRIER Work Phone: Start: 06-19-2022 End: 06-19-2022 Visual [...] Iadna hepatitis c qu ant & reverse electrical controls assembler Migel Gómez MD Work Phone: Start: 06-21-2021 [...] Phone: Start: 06-19-2021 Drug assay everolimus U day Elio Susanne GUTHRIE Work Phone: Start: 06-18-2021 Glucose measurement, blood [...] Mri brain brain stem w/o contrast material Jase Alzaeim [facility] Work Phone: Start: 06-14-2021 Glucose measurement, blood Jase Alzaeim [facility] Work Phone: Start: 06-14-2021 Radiologic exam ches t single view Jase Alzaeim [facility] Work Phone: Start: 06-14-2021 Glucose measurement, blood Jase Alzaeim [facility] Work Phone: Start: 06-14-2021 EXTRA MICRO Jase Alza eim [facility] Work Phone: Start: 06-14-2021 URINALYSIS REFLEX TO [...] 06-13-2021 Hemoglobin glycosyla grayson a1c Jase Alzaeim MB/BC Work Phone: Start: 06-13-2021 Glucose measurement, blood Jase Alzaeim [facility] Work Phone: Start: 06-12-2021 End: 06-12-2021 Glucose measurement, blood Jase Alzaeim [facility] Work Phone: Start: 06-12-2021 Glucose measurement, blood Jase Alzaeim [facility] Work Phone: Start: 06-12-2021 Glucose measurement, blood Jase Alzaeim MB/BC Work Phone: Start: 06-12-2021 EXTRA MICRO Peter Gonzalez MD Work Phone: Start: 06-12-2021 URINALYSIS REFLEX TO CULTURE Peter Gonzalez MD Work Phone: Start: 06-12-2021 Urnls dip stick/tabl et reagent auto microscopy Peter Gonzalez MD Work Phone: Start: 06-12-2021 Glucose measurement, blood Jase Alzaeim MB/BC Work Phone: Start: 06-12-2021 Radiologic exam ches t single view Peter Gonzalez MD Work Phone: Start: 06-12-2021 Bilirubin direct Michshena Gonzalez MD Work Phone: Start: 06-12-2021 CBC [...] stent placement Radha BRONSON Comment on above: [id number] w/ 3.0 x 33 mm Cypher Sirolimus-eluding stent, 3.0 x 8 mm Cypher Stent and dLAD w/ 2.5 x 28 mm Cypher Stent 10/31/05; cutting balloon to in-stent restenosis dLAD 09/18/08; DENISHA- dLAD w/ 2.5 30 mm Carnation Stent 04/21/11 Clostridium difficil e detection Clostridium [...] renal transplant Status post kidney transplant Maya Zurawick BRUSHER MACHINE.MENDING CARRIER Work Phone: History of renal transplant Status post kidney transplant Handy Ogon DO Work Phone: History of renal transplant Status post kidney transplant Andrés Frankel PT History of renal transplant Kidney transplant recipient Dr. Handy Henderson Work Phone: Comment on above: 01/2021 History of renal transplant Status post kidney transplant Theodora Mejia VAMP PRESSER Work Phone: History of renal transplant Status post kidney transplant Andrés Frankel PT History of renal transplant Status post kidney transplant Theodora Roberto VAMP PRESSER Work Phone: History of renal transplant Status post kidney transplant Theodora Roberto VAMP PRESSER Work Phone: History of renal transplant Status post kidney transplant Andrés Frankel PT History of renal transplant Kidney replaced by transplant Migel Gómez MD Work Phone: History of renal transplant Status post kidney transplant Andrés Frankel PT History of renal transplant Status post kidney transplant Handy Romerorison DO Work Phone: History of renal transplant Status post kidney transplant Handy Orosco Henderson DO Work Phone: History of renal transplant Status post kidney transplant Handy Orosco Henderson DO Work Phone: History of renal transplant Status post kidney transplant Handy Orosco Henderson DO Work Phone: History of renal transplant Kidney replaced by transplant Mirna Stuart BRUSHER MACHINE-MENDING CARRIER Work Phone: History of renal transplant Status post kidney transplant Handy Orosco Henderson DO Work Phone: History of renal transplant Kidney transplant recipient Radha Moss PA History of renal transplant Status post kidney transplant ([facility]) Handy Romerorison DO Work Phone: Streptococcus pneumo niae Antigen (M Dr. Handy Henderson Work Phone: Viral antigen assay Dr. Chrissie Henderson Work Phone: Plan of Treatment Date Care Activity Detail Author Start: 09-17-2025 Annual PCP Team Chronic Disease Visit Annual PCP Team Chronic Disease Visit [facility] Start: 08-11-2025 Complete blood count Hemoglobin/Hematocrit [facility] Start: 08-11-2025 Creatinine measurement Serum Creatinine [facility] Start: 06-30-2025 PROSTATE CANCER SCREENING DISCUSSION PROSTATE CANCER SCREENING DISCUSSION [facility] Start: 06-30-2025 Prostate specific antigen measurement Prostate Cancer Screening Discussion [facility] Start: 06-17-2025 Annual PCP Team Chronic Disease Visit Annual PCP Team Chronic Disease Visit [facility] Start: 06-03-2025 Complete blood count Hemoglobin/Hematocrit [facility] Start: 06-03-2025 Creatinine measurement Serum Creatinine [facility] Start: 05-23-2025 Glaucoma screening Dilated Retinal Exam [facility] Start: 03-12-2025 Annual PCP Team Chronic Disease Visit Annual PCP Team Chronic Disease Visit [facility] Start: 03-12-2025 Covid-19 Vaccine ( season) Covid-19 Vaccine () [facility] Comment on above: Postponed from 12/02/2023 (Declined at t his time) Start: 02-24-2025 End: 02-24-2025 Patient encounter procedure 02/24/2025 2:45 PM EST Office [place] [address] [place] [address] Diagn[facility] [address] [address] vf/fp Ophthalmology Comment on above: vf/fp Start: 02-20-2025 Complete blood count Hemoglobin/Hematocrit [facility] Start: 02-20-2025 Creatinine measurement Serum Creatinine [facility] Start: 12-26-2024 End: 12-26-2024 Patient encounter procedure 12/26/2024 1:40 PM EDT Office Visit Family Reinaldo Vergara [address] [place] [id number] Handy Henderson DO [address] [place], [place] [address] 3 month follow up Family Reinaldo Vergara Comment on above: 3 month follow up Start: 12-18-2024 End: 03-19-2025 25-hydroxyvitamin D3 [Mass/volume] in Serum or Plasma VITAMIN D 25 HYDROXY Lab Routine Vitamin D deficiency Expected: 12/18/2024, Expires: 03/19/2025 [facility] Comment on above: Expected: 12/18/2024, Expires: Start: 12-18-2024 End: 03-19-2025 Cobalamin (Vitamin B12) [Mass/volume] in Serum or Plasma VITAMIN B12 Lab Routine Vitamin B12 deficiency Expected: 12/18/2024, Expires: 03/19/2025 [facility] Comment on above: Expected: 12/18/2024, Expires: Start: 12-10-2024 Annual PCP Team Chronic Disease Visit Annual PCP Team Chronic Disease Visit [facility] Start: 12-10-2024 BP Controlled (<130/80) BP Controlled (<130/80) [facility] in Start: 12-09-2024 Complete blood count Hemoglobin/Hematocrit [facility] Start: 12-09-2024 Creatinine measurement Serum Creatinine [facility] Start: 11-26-2024 Diabetic foot examination Diabetic Foot Exam [facility] Start: 11-20-2024 End: 11-20-2024 Patient encounter procedure 11/20/2024 1:30 PM EDT Office Visit [facility] [address] [place] [address] Migel Gómez MD [address] [place] [address] [facility] Start: 11-11-2024 End: 11-11-2024 Patient encounter procedure 11/11/2024 2:00 PM EDT Office Visit Podiatry [address] [place] [address] Triny Palmer [address] [place] [place] [id number] 3 month follow up nail care Podiatry Comment on above: 3 month follow up nail care Start: 11-06-2024 BP Controlled (<130/80) BP Controlled (<130/80) [facility] inic Start: 09-27-2024 Complete blood count Hemoglobin/Hematocrit [facility] Start: 09-27-2024 Creatinine measurement Serum Creatinine [facility] Start: 09-27-2024 Potassium [Moles/volume] in Serum or Plasma POTASSIUM [facility] Start: 09-24-2024 End: 09-24-2024 Patient encounter procedure 09/24/2024 1:00 PM EDT Office Visit [facility] [address] [place] [address] George Pacheco MD [address] [place] [address] VF-OCT Ophthalmology Comment on above: VF-OCT Start: 09-17-2024 End: 09-17-2024 Patient encounter procedure 09/17/2024 3:00 PM EDT Office Visit Family Medicine [place] [address] [place], [place] [address] Handy Henderson DO [address] [place] [address] 3 month follow up Family [facility] [place] Comment on above: 3 month follow up Start: 09-10-2024 Glaucoma screening [facility] Start: 08-22-2024 End: 08-22-2024 Patient encounter procedure 08/22/2024 3:00 PM EDT Office Visit [facility] [address] [place] [address] George Pacheco MD [address] [place] [address] VF-OCT Ophthalmology Comment on above: VF-OCT Start: 08-11-2024 End: 08-11-2024 Patient encounter procedure 08/11/2024 2:00 PM EDT Office Visit Podiatry [address] [place] [address] Triny Palmer [address] [address] 3 mo follow up Podiatry Comment on above: 3 mo follow up Start: 07-25-2024 Complete blood count Hemoglobin/Hematocrit [facility] Start: 07-25-2024 Creatinine measurement Serum Creatinine [facility] Start: 07-16-2024 Annual PCP Team Chronic Disease Visit Annual PCP Team Chronic Disease Visit [facility] Start: 06-18-2024 Complete blood count Hemoglobin/Hematocrit [facility] Start: 06-18-2024 Creatinine measurement Serum Creatinine [facility] Start: 06-17-2024 End: 06-17-2024 Patient encounter procedure 06/17/2024 2:20 PM EDT Office Visit Family Medicine [place] [address] [place], [place] [address] Handy Henderson DO [address] [place] [address] 3 month follow up Family Medicine [place] Comment on above: 3 month follow up Start: 06-17-2024 End: 09-16-2024 25-hydroxyvitamin D3 [Mass/volume] in Serum or Plasma VITAMIN D 25 HYDROXY Lab Routine Vitamin D deficiency Expected: 06/17/2024, Expires: 09/16/2024 [facility] Comment on above: Expected: 06/17/2024, Expires: Start: 06-17-2024 End: 09-16-2024 Cobalamin (Vitamin B12) [Mass/volume] in Serum or Plasma VITAMIN B12 Lab Routine Fatigue, unspecified type Expected: 06/17/2024, Expires: 09/16/2024 [facility] Comment on above: Expected: 06/17/2024, Expires: Start: 06-17-2024 End: 09-16-2024 Thyrotropin [Units/volume] in Serum or Plasma THYROID STIMULATING HORMONE Lab Routine Hypercholesteremia Fatigue, unspecified type Expected: 06/17/2024, Expires: 09/16/2024 [facility] Work Phone: Comment on above: Expected: 06/17/2024, Expires: Start: 06-17-2024 End: 09-16-2024 Thyroxine (T4) free [Mass/volume] in Serum or Plasma T4 FREE/FREE THYROXINE Lab Routine Hypercholesteremia Fatigue, unspecified type Expected: 06/17/2024, Expires: 09/16/2024 [facility] Comment on above: Expected: 06/17/2024, Expires: Start: 06-08-2024 Hemoglobin A1c measurement HbA1C [facility] Start: 05-22-2024 Complete blood count Hemoglobin/Hematocrit [facility] Start: 05-22-2024 Creatinine measurement Serum Creatinine [facility] Start: 05-14-2024 End: 05-14-2024 Patient encounter procedure 05/14/2024 2:45 PM EST Office Visit [facility] [address] [place] [address] George Pacheco MD [address] [place] [id number] vf-return in 6 months Ophthalmology Comment on above: vf-return in 6 months Start: 05-12-2024 End: 05-12-2024 Patient encounter procedure 05/12/2024 2:30 PM EST Office Visit Podiatry [address] [place] [address] Triny Palmer [address] [address] 3 mo follow up Podiatry Comment on above: 3 mo follow up Start: 04-26-2024 Complete blood count Hemoglobin/Hematocrit [facility] Start: 04-26-2024 Creatinine measurement Serum Creatinine [facility] Start: 04-17-2024 Annual PCP Team Chronic Disease Visit Annual PCP Team Chronic Disease Visit [facility] Start: 04-17-2024 Covid-19 Vaccine () Covid-19 Vaccine () [facility] Comment on above: Postponed from 12/01/2022 (Declined at t his time) Start: 04-15-2024 End: 04-15-2024 Patient encounter procedure 04/15/2024 2:30 PM EST Office Visit Podiatry [address] [place] [address] Triny Palmer [address] [address] 3 mo follow up Podiatry Comment on above: 3 mo follow up Start: 03-21-2024 Hepatitis B surface antibody level LDL Cholesterol [facility] Start: 03-20-2024 End: 03-20-2024 Patient encounter procedure 03/20/2024 1:00 PM EST Office Visit [facility] [address] [place] [address] Catalina Castro APRN.[facility] [address] [place] [address] 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] [facility] Comment on above: Degeneration of intervertebral disc of l umbar region with discogenic back pain [M51.360] Start: 03-12-2024 End: 03-12-2024 Patient encounter procedure 03/12/2024 3:00 PM EST Office Visit Family Reinaldo [place] [address] [facility] [place] [address] Handy Henderson DO [address] [place] [address] 3 month follow up [facility] [place] Comment on above: 3 month follow up Start: 03-03-2024 End: 03-03-2024 Patient encounter procedure 03/03/2024 1:00 PM EST Office Visit Podiatry [address] [place] [address] Triny Palmer [address] [place] [address] 3 mo follow up Podiatry Comment on above: 3 mo follow up Start: 02-18-2024 End: 02-18-2024 ambulatory 02/18/2024 2:15 PM EST OT/PT/Speech Visit [facility] [address] [place] [address] Reyes Perea, PT [address] [place], [place] [id number] Low Back Pain, core stregthening [facility] Comment on above: Low Back Pain, core stregthening Start: 02-17-2024 Hemoglobin/Hematocrit Hemoglobin/Hematocrit [facility] Start: 02-17-2024 Serum Creatinine Serum Creatinine [facility] Start: 02-11-2024 End: 02-11-2024 ambulatory 02/11/2024 2:15 PM EST OT/PT/Speech Visit [facility] [address] [place] [address] Reyes Perea, PT [address] [place] [address] Low Back Pain, core stregthening [facility] Comment on above: Low Back Pain, core stregthening Start: 02-07-2024 End: 02-07-2024 ambulatory 02/07/2024 2:15 PM EST OT/PT/Speech Visit [facility] [address] [place] [address] Reyes Perea, PT [address] [place], [place] [address] Low Back Pain, core stregthening [facility] Comment on above: Low Back Pain, core stregthening Start: 02-04-2024 End: 02-04-2024 ambulatory 02/04/2024 2:15 PM EST OT/PT/Speech Visit [facility] [address] [place] [address] Reyes Perea, PT [address] [place], [place] [phone] Low Back Pain, core stregthening [facility] Comment on above: Low Back Pain, core stregthening Start: 01-28-2024 End: 01-28-2024 ambulatory 01/28/2024 4:30 PM EDT OT/PT/Speech Visit [facility] [address] [place] [address] Reyes Perea, PT [address] [place], [place] [phone] Low Back Pain, core stregthening [facility] Comment on above: Low Back Pain, core stregthening Start: 01-21-2024 End: 01-21-2024 Patient encounter procedure [facility] [place] Comment on above: 3 month f/u 3 month f/u/back harlan n prefers afternoon PCPonly was advised may need OMT Start: 01-19-2024 Hemoglobin/Hematocrit Hemoglobin/Hematocrit [facility] Start: 01-19-2024 Serum Creatinine Serum Creatinine [facility] Start: 01-15-2024 End: 01-15-2024 ambulatory 01/15/2024 1:30 PM EDT OT/PT/Speech Visit [facility] [address] [place] [address] Reyes Perea, PT [address] [place], [place] [phone] Low Back Pain, core stregthening [facility] Comment on above: Low Back Pain, core stregthening Start: 12-21-2023 Hemoglobin/Hematocrit Hemoglobin/Hematocrit [facility] Start: 12-21-2023 Serum Creatinine Serum Creatinine [facility] Start: 12-02-2023 Covid-19 Vaccine ( season) Covid-19 Vaccine ( season) [facility] Start: 12-02-2023 Covid-19 Vaccine ( season) Covid-19 Vaccine ( season) [facility] Start: 12-02-2023 Influenza vaccination INFLUENZA VACCINE (#1) [facility] Start: 11-27-2023 End: 11-27-2023 Patient encounter procedure 11/27/2023 2:00 PM EDT Office Visit Podiatry [address] [place], [place] [phone] Triny Palmer [address] [place] [address] 3 mo follow up Podiatry Comment on above: 3 mo follow up Start: 11-21-2023 BP CONTROLLED (<130/80) BP CONTROLLED (<130/80) [facility] in Start: 11-21-2023 HEMOGLOBIN/HEMATOCRIT HEMOGLOBIN/HEMATOCRIT [facility] Start: 11-21-2023 Hepatitis B surface antibody level LDL CHOLESTEROL [facility] Start: 11-21-2023 SERUM CREATININE SERUM CREATININE [facility] Start: 11-12-2023 End: 11-12-2023 Patient encounter procedure 11/12/2023 1:15 PM EDT Office Visit [facility] [address] [phone] George Pacheco MD [address] [place] [address] [facility] Comment on above: [facility] Start: 11-09-2023 ANNUAL PCP TEAM CHRONIC DISEASE VISIT ANNUAL PCP TEAM CHRONIC DISEASE VISIT [facility] Start: 11-09-2023 COVID-19 VACCINE (4 - Booster for Moderna series) COVID-19 VACCINE (4 - Booster for Moderna series) [facility] Comment on above: Postponed from 04/04/2021 (Declined at t his time) Start: 11-09-2023 COVID-19 VACCINE (4 - Moderna risk series) COVID-19 VACCINE (4 - Moderna risk series) [facility] Comment on above: Postponed from 04/04/2021 (Declined at t his time) Start: 11-09-2023 SHINGRIX VACCINE (1 of 2) SHINGRIX VACCINE (1 of 2) [facility] Comment on above: Postponed from 1981 (Declined at t his time) Start: 11-09-2023 Urine microalbumin profile [facility] Comment on above: Postponed from 1981 (Declined at t his time) Start: 10-18-2023 ANNUAL PCP TEAM CHRONIC DISEASE VISIT ANNUAL PCP TEAM CHRONIC DISEASE VISIT [facility] Start: 10-18-2023 HEMOGLOBIN/HEMATOCRIT HEMOGLOBIN/HEMATOCRIT [facility] Start: 10-18-2023 SERUM CREATININE SERUM CREATININE [facility] Start: 10-17-2023 End: 10-17-2023 Patient encounter procedure 10/17/2023 1:00 PM EDT Office Visit Family Medicine [place] [address] [place] [address] Tara Carballo APRN.[employer]ING [employer] [address] [place] [address] 3 month f/u [facility] [place] Comment on above: 3 month f/u Start: 10-10-2023 Glaucoma screening Dilated Retinal Exam [facility] Start: 10-10-2023 Hepatitis C antibody, confirmatory test DILATED RETINAL EXAM [facility] Start: 10-09-2023 Colonoscopy COLONOSCOPY [facility] Start: 10-09-2023 COLORECTAL CANCER SCREENING COLORECTAL CANCER SCREENING [facility] Start: 10-09-2023 Screening for malignant neoplasm of colon [facility] Start: 09-27-2023 3 comp foot exam completed DIABETIC FOOT EXAM [facility] Start: 09-27-2023 Diabetic foot examination Diabetic Foot Exam [facility] Start: 09-22-2023 HEMOGLOBIN/HEMATOCRIT HEMOGLOBIN/HEMATOCRIT [facility] Start: 09-22-2023 SERUM CREATININE SERUM CREATININE [facility] Start: 09-20-2023 Hemoglobin A1c measurement [facility] Start: 09-11-2023 End: 09-11-2023 Patient encounter procedure 09/11/2023 2:45 PM EDT Office Visit [facility] [address] [place] [address] George Pacheco MD [address] [place] [address] VF/OCT Ophthalmology Comment on above: VF/OCT Start: 08-06-2023 End: 08-06-2023 Patient encounter procedure 08/06/2023 2:45 PM EDT Office Visit [facility] [address] [place] [address] George Pacheco MD [address] [id number] VF/OCT Ophthalmology Comment on above: VF/OCT Start: 07-30-2023 End: 07-30-2023 Patient encounter procedure 07/30/2023 1:45 PM EDT Office Visit Podiatry [address] [place] [address] Triny Palmer [address] [place] [address] Foot Care (Follow Up) Podiatry Comment on above: Foot Care (Follow Up) Start: 07-25-2023 ANNUAL PCP TEAM CHRONIC DISEASE VISIT ANNUAL PCP TEAM CHRONIC DISEASE VISIT [facility] Start: 07-18-2023 HEMOGLOBIN/HEMATOCRIT HEMOGLOBIN/HEMATOCRIT [facility] Start: 07-18-2023 Hepatitis B screening URINE ALBUMIN:CREATININE RATIO [facility] Start: 07-18-2023 SERUM CREATININE SERUM CREATININE [facility] Start: 06-21-2023 Patient discharge [facility] Start: 06-18-2023 SERUM CREATININE SERUM CREATININE [facility] Start: 05-18-2023 HEMOGLOBIN/HEMATOCRIT HEMOGLOBIN/HEMATOCRIT [facility] Start: 05-18-2023 SERUM CREATININE SERUM CREATININE [facility] Start: 05-10-2023 ANNUAL PCP TEAM CHRONIC DISEASE VISIT ANNUAL PCP TEAM CHRONIC DISEASE VISIT [facility] Start: 05-10-2023 BP CONTROLLED (<130/80) BP CONTROLLED (<130/80) [facility] Start: 04-25-2023 [facility] Start: 04-22-2023 HEMOGLOBIN/HEMATOCRIT HEMOGLOBIN/HEMATOCRIT [facility] Start: 04-22-2023 Hepatitis B screening URINE ALBUMIN:CREATININE RATIO [facility] Start: 04-22-2023 SERUM CREATININE SERUM CREATININE [facility] Start: 04-02-2023 Behavioral Health Screening Behavioral Health Screening [facility] Start: 03-16-2023 Lipid panel LIPIDS [facility] Start: 03-02-2023 Hepatitis B surface antibody level LDL CHOLESTEROL [facility] Start: 02-06-2023 ANNUAL PCP TEAM CHRONIC DISEASE VISIT ANNUAL PCP TEAM CHRONIC DISEASE VISIT [facility] Start: 02-06-2023 BP CONTROLLED (<130/80) BP CONTROLLED (<130/80) [facility] Start: 02-01-2023 Hepatitis B surface antibody level LDL CHOLESTEROL [facility] Start: 01-17-2023 HEMOGLOBIN/HEMATOCRIT HEMOGLOBIN/HEMATOCRIT [facility] Start: 01-17-2023 Hepatitis B surface antibody level LDL CHOLESTEROL [facility] Start: 01-17-2023 SERUM CREATININE SERUM CREATININE [facility] Start: 01-04-2023 Influenza vaccination LUNG CANCER SCREENING [facility] Start: 01-03-2023 Hepatitis B surface antibody level LDL CHOLESTEROL [facility] Start: 12-26-2022 ANNUAL PCP TEAM CHRONIC DISEASE VISIT ANNUAL PCP TEAM CHRONIC DISEASE VISIT [facility] Start: 12-20-2022 HEMOGLOBIN/HEMATOCRIT HEMOGLOBIN/HEMATOCRIT [facility] Start: 12-20-2022 SERUM CREATININE SERUM CREATININE [facility] Start: 12-06-2022 HEMOGLOBIN/HEMATOCRIT HEMOGLOBIN/HEMATOCRIT [facility] Start: 12-06-2022 Hepatitis B surface antibody level LDL CHOLESTEROL [facility] Start: 12-06-2022 SERUM CREATININE SERUM CREATININE [facility] Start: 12-01-2022 Covid-19 Vaccine ( season) Covid-19 Vaccine () [facility] Start: 12-01-2022 Influenza vaccination [facility] Start: 11-07-2022 Glaucoma screening EYE EXAM [facility] Start: 11-07-2022 HEMOGLOBIN/HEMATOCRIT HEMOGLOBIN/HEMATOCRIT [facility] Start: 11-07-2022 Hepatitis B surface antibody level LDL CHOLESTEROL [facility] Start: 11-07-2022 Hepatitis C antibody, confirmatory test DILATED RETINAL EXAM [facility] Start: 11-07-2022 SERUM CREATININE SERUM CREATININE [facility] Start: 10-26-2022 3 comp foot exam completed DIABETIC FOOT EXAM [facility] Start: 10-24-2022 HEMOGLOBIN/HEMATOCRIT HEMOGLOBIN/HEMATOCRIT [facility] Start: 10-24-2022 Hepatitis B surface antibody level LDL CHOLESTEROL [facility] Start: 10-24-2022 SERUM CREATININE SERUM CREATININE [facility] Start: 10-20-2022 Hemoglobin A1c measurement HBA1C TEST [facility] Start: 10-20-2022 Hemoglobin A1c/Hemoglobin.total in Blood HBA1C [facility] Start: 10-18-2022 End: 12-18-2022 Lipid 1996 panel - Serum or Plasma LIPID PANEL BASIC Lab Routine Hypercholesteremia Expected: 10/18/2022, Expires: 12/18/2022 [facility] Work Phone: Comment on above: Expected: 10/18/2022, Expires: Start: 10-10-2022 HEMOGLOBIN/HEMATOCRIT HEMOGLOBIN/HEMATOCRIT [facility] Start: 10-10-2022 Hepatitis B surface antibody level LDL CHOLESTEROL [facility] Start: 10-10-2022 SERUM CREATININE SERUM CREATININE [facility] Start: 10-04-2022 HEMOGLOBIN/HEMATOCRIT HEMOGLOBIN/HEMATOCRIT [facility] Start: 10-04-2022 Hepatitis B surface antibody level LDL CHOLESTEROL [facility] Start: 10-04-2022 SERUM CREATININE SERUM CREATININE [facility] Start: 09-27-2022 HEMOGLOBIN/HEMATOCRIT HEMOGLOBIN/HEMATOCRIT [facility] Start: 09-27-2022 Hepatitis B surface antibody level LDL CHOLESTEROL [facility] Start: 09-27-2022 SERUM CREATININE SERUM CREATININE [facility] Start: 09-12-2022 HEMOGLOBIN/HEMATOCRIT HEMOGLOBIN/HEMATOCRIT [facility] Start: 09-12-2022 SERUM CREATININE SERUM CREATININE [facility] Start: 08-31-2022 Hemoglobin A1c/Hemoglobin.total in Blood HBA1C [facility] Start: 08-30-2022 Hepatitis B surface antibody level LDL CHOLESTEROL [facility] Start: 2022 RSV Vaccine (1 - 1-dose 60+ series) RSV Vaccine (1 - 1-dose 60+ series) [facility] Start: 2022 RSV Vaccine (1 - Risk 60-74 years 1-dose series) RSV Vaccine (1 - Risk 60-74 years 1-dose series) [facility] Start: 08-17-2022 ANNUAL PCP TEAM CHRONIC DISEASE VISIT ANNUAL PCP TEAM CHRONIC DISEASE VISIT [facility] Start: 08-17-2022 BP CONTROLLED (<130/80) BP CONTROLLED (<130/80) [facility] in Start: 08-17-2022 Hepatitis B surface antibody level LDL CHOLESTEROL [facility] Start: 08-17-2022 SERUM CREATININE SERUM CREATININE [facility] Start: 08-15-2022 HEMOGLOBIN/HEMATOCRIT HEMOGLOBIN/HEMATOCRIT [facility] Start: 08-15-2022 SERUM CREATININE SERUM CREATININE [facility] Start: 08-01-2022 Hemoglobin A1c/Hemoglobin.total in Blood HBA1C [facility] Start: 08-01-2022 HEMOGLOBIN/HEMATOCRIT HEMOGLOBIN/HEMATOCRIT [facility] Start: 08-01-2022 SERUM CREATININE SERUM CREATININE [facility] Start: 07-25-2022 HEMOGLOBIN/HEMATOCRIT HEMOGLOBIN/HEMATOCRIT [facility] Start: 07-25-2022 SERUM CREATININE SERUM CREATININE [facility] Start: 07-18-2022 Hemoglobin A1c/Hemoglobin.total in Blood HBA1C [facility] Start: 07-11-2022 ANNUAL PCP TEAM CHRONIC DISEASE VISIT ANNUAL PCP TEAM CHRONIC DISEASE VISIT [facility] Start: 07-11-2022 Urine microalbumin profile DTAP,TDAP,TD (1 - Tdap) [facility] Comment on above: Postponed from 1981 (Declined at t his time) Start: 07-10-2022 End: 02-08-2023 Us abdominal real time w/image limited US ABDOMEN LTD Radiology Routine Splenomegaly Expected: 07/10/2022, Expires: 02/08/2023 [facility] Work Phone: Comment on above: Expected: 07/10/2022, Expires: Start: 07-04-2022 Hemoglobin A1c/Hemoglobin.total in Blood HBA1C [facility] Start: 06-05-2022 Hemoglobin A1c/Hemoglobin.total in Blood HBA1C [facility] Start: 05-10-2022 Hemoglobin A1c/Hemoglobin.total in Blood HBA1C [facility] Start: 04-26-2022 Hemoglobin A1c/Hemoglobin.total in Blood HBA1C [facility] Start: 04-19-2022 ANNUAL PCP TEAM CHRONIC DISEASE VISIT ANNUAL PCP TEAM CHRONIC DISEASE VISIT [facility] Start: 04-12-2022 Hemoglobin A1c measurement HBA1C TEST [facility] Start: 04-12-2022 Hemoglobin A1c/Hemoglobin.total in Blood HBA1C [facility] Start: 04-06-2022 Hemoglobin A1c/Hemoglobin.total in Blood HBA1C [facility] Start: 04-02-2022 DEPRESSION ASSESSMENT DEPRESSION ASSESSMENT [facility] Start: 03-29-2022 Hemoglobin A1c/Hemoglobin.total in Blood HBA1C [facility] Start: 03-28-2022 LIPIDS LIPIDS [facility] Start: 03-01-2022 Hemoglobin A1c/Hemoglobin.total in Blood HBA1C [facility] Start: 01-30-2022 Enteric precautions [facility] Start: 01-26-2022 HEMOGLOBIN/HEMATOCRIT HEMOGLOBIN/HEMATOCRIT [facility] Start: 01-26-2022 SERUM CREATININE SERUM CREATININE [facility] Start: 01-10-2022 Diabetic retinal eye exam EYE EXAM [facility] Start: 01-10-2022 Hepatitis C antibody, confirmatory test DILATED RETINAL EXAM [facility] Start: 01-03-2022 Hemoglobin A1c measurement HBA1C TEST [facility] Start: 12-14-2021 Hemoglobin A1c measurement HBA1C TEST [facility] Start: 12-14-2021 Hemoglobin A1c/Hemoglobin.total in Blood HBA1C [facility] Start: 12-01-2021 Influenza vaccination [facility] Start: 11-23-2021 Adult depression screening assessment DEPRESSION SCREENING [facility] Start: 11-16-2021 End: 11-16-2021 Patient encounter procedure 11/16/2021 Office Visit Transplant Surgery Mirna Stuart, BRUSHER MACHINE-[employer]ENDING CAR[employer]ER [address] [place] [address] [facility] Start: 10-25-2021 End: 10-25-2021 Patient encounter procedure [facility]inology [facility] Start: 10-13-2021 End: 10-13-2021 Patient encounter procedure 10/13/2021 Office Visit Transplant Surgery Migel Gómez MD [address] [place] [phone] [facility] Start: 10-09-2021 3 comp foot exam completed DIABETIC FOOT EXAM [facility] Start: 09-25-2021 Hemoglobin A1c/Hemoglobin.total in Blood HBA1C [facility] Start: 08-17-2021 End: 10-17-2021 LIPID PANEL, NONFASTING [facility] Work Phone: Comment on above: Expected: 08/17/2021, Expires: 2 Start: 08-08-2021 End: 10-08-2021 Comprehensive metabolic 2000 panel - Serum or Plasma COMP METABOLIC PANEL Lab Routine Diarrhea, unspecified type Expected: 08/08/2021, Expires: 10/08/2021 [facility] Work Phone: Comment on above: Expected: [...] symptoms and signs Expected: 07/05/2021, Expires: 07/05/2022 [facility] Comment on above: Expected: 07/05/2021, Expires: 3 Start: 06-30-2021 Prostate specific antigen measurement PROSTATE CANCER SCREENING DISCUSSION [facility] Start: 06-24-2021 End: 06-24-2021 Patient encounter procedure 06/24/2021 Office Visit Transplant Surgery Leon Skinner MBBS [address] [place] [address] [facility] Start: 06-22-2021 Influenza vaccination LUNG CANCER SCREENING [facility] Start: 06-11-2021 Patient discharge [facility] Work Phone: Start: 06-10-2021 [facility] Work Phone: Start: 06-10-2021 Referral to insurance solicitor [facility] Work Phone: Start: 06-10-2021 Following clinical pathway protocol [facility] Work Phone: Start: 06-10-2021 Application of intermittent pneumatic compression device [facility] Work Phone: Start: 06-10-2021 Aspiration precautions [facility] Work Phone: Start: 06-10-2021 Assessment of risk of venous thromboembolism [facility] Work Phone: Start: 06-10-2021 Care regimes management [facility] Work Phone: Start: 06-10-2021 Continuous positive airway pressure ventilation treatment [facility] Work Phone: Start: 06-10-2021 Fall prevention [facility] Work Phone: Start: 06-10-2021 Incentive spirometry [facility] Work Phone: Start: 06-10-2021 Inhalation therapy procedure [facility] Work Phone: Start: 06-10-2021 Insertion of catheter into peripheral vein [facility] Work Phone: Start: 06-10-2021 Introduction of urinary catheter [facility] Work Phone: Start: 06-10-2021 Measuring intake and output [facility] Work Phone: Start: 06-10-2021 Oxygen therapy [facility] Work Phone: Start: 06-10-2021 Providing care according to standard [facility] Work Phone: Start: 06-10-2021 Provision of activity privileges [facility] Work Phone: Start: 06-10-2021 Referral to occupational therapist [facility] Work Phone: Start: 06-10-2021 Referral to service [facility] Work Phone: Start: 06-10-2021 [facility] Work Phone: Start: 06-10-2021 Admission procedure [facility] Work Phone: Start: 06-10-2021 Patient referral to dietitian [facility] Work Phone: Start: 06-10-2021 [facility] Work Phone: Start: 06-09-2021 Referral to service [facility] Work Phone: Start: 05-10-2021 COVID-19 VACCINE (4 - Booster for Moderna series) COVID-19 VACCINE (4 - Booster for Moderna series) [facility] Start: 05-02-2021 COVID-19 VACCINE (4 - Booster for Moderna series) COVID-19 VACCINE (4 - Booster for Moderna series) [facility] Start: 04-20-2021 PNEUMOCOCCAL (3 - PPSV23 or PCV20) PNEUMOCOCCAL (3 - PPSV23 or PCV20) [facility] Start: 04-04-2021 COVID-19 VACCINE (4 - Booster for Moderna series) COVID-19 VACCINE (4 - Booster for Moderna series) [facility] Start: 04-02-2021 DEPRESSION ASSESSMENT DEPRESSION ASSESSMENT [facility] Start: 03-02-2021 Medicare Annual Wellness Visit Medicare Annual Wellness Visit [facility] Start: 12-01-2020 Influenza vaccination [facility] Start: 02-07-2020 Hepatitis B screening URINE ALBUMIN:CREATININE RATIO [facility] Start: 02-07-2020 Hepatitis B surface antibody level LDL CHOLESTEROL [facility] Start: 11-28-2019 BP CONTROLLED (<130/80) BP CONTROLLED (<130/80) [facility] in Start: 10-09-2019 Screening for malignant neoplasm of colon COLORECTAL CANCER SCREENING DISCUSSION [facility] Start: 11-12-2014 TWO PNEUMOVAX 5 YEARS APART PRIOR TO AGE 65 (#2) TWO PNEUMOVAX 5 YEARS APART PRIOR TO AGE 65 (#2) [facility] Start: 11-12-2012 Microalbumin measurement, urine, quantitative URINE MICROALBUMIN TEST [facility] Start: 11-12-2012 Urine screening for protein URINE MICROALBUMIN TEST [facility] Start: 2012 SHINGRIX VACCINE (1 of 2) SHINGRIX VACCINE (1 of 2) [facility] Start: 2012 Zoster vaccine hzv live for subcutaneous use ZOSTER (SHINGLES) VACCINE (1 of 2) [facility] Start: 11-12-2010 PNEUMOCOCCAL VACCINE SERIES (2 - PCV) PNEUMOCOCCAL VACCINE SERIES (2 - PCV) [facility] Start: 11-12-2010 PNEUMOCOCCAL VACCINE SERIES (2 of 4 - PCV13) PNEUMOCOCCAL VACCINE SERIES (2 of 4 - PCV13) [facility] Start: 08-30-2007 COLOGUARD (FIT-DNA) COLOGUARD (FIT-DNA) [facility] Start: 08-30-2007 Colonoscopy COLORECTAL CANCER SCREENING DISCUSSION [facility] Start: 08-30-[address] COLONOGRAPHY [facility] Start: 08-30-2007 FECAL OCCULT BLOOD FECAL OCCULT BLOOD [facility] Start: 08-30-2007 Screening for malignant neoplasm of colon [facility] Start: 08-30-2007 SIGMOIDOSCOPY SIGMOIDOSCOPY [facility] Start: 1981 HEPATITIS A (1 of 2 - Risk 2-dose series) HEPATITIS A (1 of 2 - Risk 2-dose series) [facility] Start: 1981 Hepatitis A Vaccine (1 of 2 - Risk 2-dose series) Hepatitis A Vaccine (1 of 2 - Risk 2-dose series) [facility] Start: 1981 SHINGRIX VACCINE (1 of 2) SHINGRIX VACCINE (1 of 2) [facility] Start: 1981 Third diphtheria, tetanus and acellular pertussis (DTaP) vaccination TDAP (ADULT) [facility] Start: 1981 Urine microalbumin profile [facility] Start: 1981 Zoster vaccine hzv live for subcutaneous use ZOSTER (SHINGLES) VACCINE (1 of 2) [facility] Start: 1980 Anxiety Screening Anxiety Screening [facility] Start: 1980 Depression Screening Depression Screening [facility] Start: 1980 Tetanus vaccination TETANUS [facility] Start: 1974 COVID-19 VACCINE (1) COVID-19 VACCINE (1) [facility] Start: 08-30-1967 COVID-19 VACCINE (#1) COVID-19 VACCINE (#1) [facility] Start: 08-30-1963 HEPATITIS A (1 of 2 - Risk 2-dose series) HEPATITIS A (1 of 2 - Risk 2-dose series) [facility] Start: 03-01-1963 COVID-19 VACCINE (#1) COVID-19 VACCINE (#1) [facility] Start: 1962 Diabetic foot examination DIABETIC FOOT EXAM [facility] Start: 1962 Tetanus vaccination TETANUS [facility] ALLOSCREEN RECIPIENT (POST TX PRA) ALLOSCREEN RECIPIENT (POST TX PRA) Lab Routine Kidney replaced by transplant Aftercare following organ transplant Immunosuppressed status Abnormal blood chemistry 11/06/2023 2:08 PM EDT [facility] Bacteria identified in Wound by Culture ABSCESS AND WOUND CULTURE WITH GRAM STAIN Microbiology Routine Skin ulcer of toe of right foot with fat layer exposed (HCC) 11/28/2022 3:20 PM EDT [facility] Work Phone: Bilirubin measuremen t, urine [facility] BK VIRUS DNA QN, PCR , PLASMA BK VIRUS DNA QN, PCR, PLASMA Lab Routine Kidney replaced by transplant Aftercare following organ transplant Immunosuppressed status Abnormal blood chemistry 11/06/2023 2:08 PM EDT [facility] End: 06-18-2025 Echocardiography ECHO Cardiology Routine LVH (left ventricular hypertrophy) Aortic dilatation (HCC) 1 Occurrences starting 06/18/2024 until 06/18/2025 [facility] Comment on above: 1 Occurrences starting 06/18/2024 until 06/18/2025 EXTRA MICRO EXTRA MICRO Flui ds Routine Kidney replaced by transplant Aftercare following organ transplant Immunosuppressed status Abnormal blood chemistry 11/06/2023 2:28 PM EDT [facility] FAT, FECAL QUAL FAT, FECAL QUAL Lab Routine Diarrhea, unspecified type Ordered: 08/17/2021 [facility] Work Phone: Comment on above: Ordered: 08/17/2021 Gastrointestinal pathogens panel - Stool by Culture STOOL CULTURE/EIA Microbiology Routine Diarrhea, unspecified type Ordered: 08/17/2021 [facility] Work Phone: Comment on above: Ordered: 08/17/2021 Helicobacter pylori Ag [Presence] in Stool by Immunoassay H PYLORI AG BY EIA,STOOL Microbiology Routine Diarrhea, unspecified type Ordered: 08/17/2021 [facility] Work Phone: Comment on above: Ordered: 08/17/2021 Hemoglobin [Presence ] in Urine [facility] Hepatitis C virus RN A [Units/volume] (viral load) in Serum or Plasma by Probe and target amplification method detection limit = 5 iU/mL HEPATITIS C BY PCR, QUANT Lab Routine Kidney replaced by transplant Long-term use of immunosuppressant medication Abnormal blood chemistry High risk medication use Immunosuppressed status Aftercare following organ transplant Other general symptoms and signs 07/06/2021 4:18 PM EDT [facility] Measurement of keton es in urine using dipstick [facility] Microscopic urinalysis [facility] Patient Education [facility] Work Phone: Patient referral [facility] Work Phone: pH of Urine [facility] End: 11-29-2023 PVR ANK PRESS [facility] PVR ANK PRESS [facility] Vascular Lab Routine Skin ulcer of toe of right foot with fat layer exposed (HCC) Diminished pulses in lower extremity 1 Occurrences starting 11/28/2022 until 11/29/2023 [facility] Work Phone: Comment on above: 1 Occurrences starting 11/28/2022 until 11/29/2023 End: 09-17-2025 Screening colonoscopy COLONOSCOPY SCREENING Endoscopy Routine Screening for colon cancer 1 Occurrences starting 09/17/2024 until 09/17/2025 [facility] Work Phone: Comment on above: 1 Occurrences starting 09/17/2024 until 09/17/2025 Specific gravity of Urine [facility] URINALYSIS REFLEX TO CULTURE URINALYSIS REFLEX TO CULTURE Fluids Routine Kidney replaced by transplant Aftercare following organ transplant Immunosuppressed status Abnormal blood chemistry 11/06/2023 2:28 PM EDT [facility] Urinalysis, blood, qualitative [facility] Urine dipstick for glucose [facility] Urine dipstick for leukocyte esterase [facility] Urine dipstick for nitrite [facility] Urine dipstick for protein [facility] Urine examination [facility] Urine microscopy: epithelial cells [facility] Urine Microscopy: wh ite cells [facility] Urobilinogen [Presen ce] in Urine [facility] End: 01-17-2024 US VENOUS INCOMPETENCY [facility] US VENOUS INCOMPETENCY [facility] Vascular Lab Routine Swelling of lower leg 1 Occurrences starting 01/16/2023 until 01/17/2024 [facility] Work Phone: Comment on above: 1 Occurrences starting 01/16/2023 until 01/17/2024 XR Chest PA and Lateral [facility] End: 12-28-2023 XR FOOT GENERAL 3V AP/LAT/OBL RIGHT XR FOOT GENERAL 3V AP/LAT/OBL RIGHT Radiology Routine Skin ulcer of toe of right foot with fat layer exposed (HCC) 1 Occurrences starting 11/28/2022 until 12/28/2023 [facility] Work Phone: Comment on above: 1 Occurrences starting 11/28/2022 until 12/28/2023 XR FOOT GENERAL 3V AP/LAT/OBL RIGHT XR FOOT GENERAL 3V AP/LAT/OBL RIGHT Radiology Routine Skin ulcer of toe of right foot with fat layer exposed (HCC) 11/28/2022 3:53 PM EDT [facility] Work Phone: End: 01-09-2025 XR Lumbar spine 3 Views XR LUMBAR GENERAL 3V AP/LAT/L5-S1 Radiology Routine Chronic midline low back pain without sciatica Lumbar paraspinal muscle spasm 1 Occurrences starting 12/11/2023 until 01/09/2025 [facility] Work Phone: Comment on above: 1 Occurrences starting 12/11/2023 until 01/09/2025 XR Lumbar spine 3 Views XR LUMBA R GENERAL 3V AP/LAT/L5-S1 Radiology Routine Chronic midline low back pain without sciatica Lumbar paraspinal muscle spasm 12/11/2023 4:44 PM EDT [facility] End: 01-24-2024 XR TOE AP/LAT/OBL RIGHT XR TOE AP/LAT/OBL RIGHT Radiology Routine Skin ulcer of toe of right foot with fat layer exposed (HCC) Diabetic mononeuropathy associated with diabetes mellitus due to underlying condition (HCC) 1 Occurrences starting 12/25/2022 until 01/24/2024 [facility] Work Phone: Comment on above: 1 Occurrences starting 12/25/2022 until 01/24/2024 XR TOE AP/LAT/OBL RIGHT XR TOE A P/LAT/OBL RIGHT Radiology Routine Skin ulcer of toe of right foot with fat layer exposed (HCC) Diabetic mononeuropathy associated with diabetes mellitus due to underlying condition (HCC) 12/25/2022 2:49 PM EDT [facility] Work Phone: End: 03-30-2024 XR TOE AP/LAT/OBL RIGHT XR TOE AP/LAT/OBL RIGHT Radiology Routine Hammertoe of right foot 1 Occurrences starting 03/01/2023 until 03/30/2024 [facility] Work Phone: Comment on above: 1 Occurrences starting 03/01/2023 until 03/30/2024 XR TOE AP/LAT/OBL RIGHT XR TOE A P/LAT/OBL RIGHT Radiology Routine Hammertoe of right foot 03/01/2023 3:32 PM EST [facility] Work Phone: [facility] Immunizations Immunization Date Immunization Notes Care Provider [facility] 12-11-2023 influenza, seasonal, injectable Handy Henderson DO Work Phone: [facility] 04-17-2023 influenza, injectabl e, quadrivalent, contains preservative Triny Palmer Work Phone: [facility] Work Phone: 04-17-2023 influenza virus vacc ine, unspecified formulation iMrna Stuart BRUSHER MACHINE-MENDING CARRIER Work Phone: [facility] 12-26-2021 influenza, injectabl e, quadrivalent, contains preservative George Pacheco MD Work Phone: [facility] 12-26-2021 pneumococcal (PCV20) vaccine, 20 valent (PREVNAR 20) George Pacheco MD Work Phone: [facility] 12-26-2021 influenza virus vacc ine, unspecified formulation Migel Gómez MD Work Phone: [facility] 01-17-2021 Hepatitis B vaccine (recombinant), CpG adjuvanted Handy Henderson DO Work Phone: [facility] 12-20-2020 Hepatitis B vaccine (recombinant), CpG adjuvanted Handy Henderson DO Work Phone: [facility] 08-02-2020 hepatitis B vaccine, adult dosage Handy Henderson DO Work Phone: [facility] Work Phone: 07-14-2020 COVID-19 vaccine, fu ll dose (MODERNA) Handy Henderson DO Work Phone: [facility] Work Phone: 06-16-2020 COVID-19 vaccine, fu ll dose (MODERNA) Handy Henderson DO Work Phone: [facility] 04-20-2020 pneumococcal conjuga te vaccine, 13 valent Handy Henderson DO Work Phone: [facility] 03-16-2020 hepatitis B vaccine, adult dosage Handy Henderson DO Work Phone: [facility] 02-10-2020 hepatitis B vaccine, adult dosage Handy Henderson DO Work Phone: [facility] 01-14-2020 influenza, seasonal, injectable Handy Henderson DO Work Phone: [facility] Work Phone: 01-14-2020 influenza virus vacc ine, unspecified formulation Dashawn Zimmer DO Work Phone: [facility] 01-13-2020 hepatitis B vaccine, adult dosage Handy Henderson DO Work Phone: [facility] 12-30-2019 influenza, injectabl e, quadrivalent, contains preservative Handy Henderson DO Work Phone: [facility] 12-30-2019 influenza, injectabl e, quadrivalent, preservative free Handy Henderson DO Work Phone: [facility] 11-24-2018 Influenza, injectabl e, [place]in [place] Canine Kidney, preservative free, quadrivalent Handy Henderson DO Work Phone: [facility] 01-30-2018 influenza, injectabl e, quadrivalent, contains preservative Handy Henderson DO Work Phone: [facility] 05-11-2017 influenza, injectabl e, quadrivalent, contains preservative Handy Henderson DO Work Phone: [facility] Work Phone: 01-12-2016 influenza, seasonal, injectable Handy Henderson DO Work Phone: [facility] Work Phone: 01-08-2016 influenza, injectabl e, quadrivalent, preservative free Dr. Handy Henderson Work Phone: [facility] 01-08-2016 influenza, seasonal, injectable Dr. Handy Henderson Work Phone: [facility] 01-08-2016 influenza, seasonal, injectable, preservative free Handy Henderson DO Work Phone: [facility] 01-12-2011 influenza nasal, unspecified formulation Handy Henderson DO Work Phone: [facility] 01-12-2011 influenza virus vacc ine, unspecified formulation Dashawn Zimmer DO Work Phone: [facility] 12-01-2009 influenza nasal, unspecified formulation Handy Henderson DO Work Phone: [facility] 12-01-2009 influenza virus vacc ine, unspecified formulation Dashawn Zimmer DO Work Phone: [facility] 11-12-2009 pneumococcal polysaccharide vaccine, 23 valent Dashawn Zimmer DO Work Phone: [facility] Payers Date Payer Category Payer Medicare (Managed Care) [id number]. [id number] 2024 Unknown [id number] 2023 Self-pay [id number] 2023 Private Health Insurance [id number] 2021 Medicaid [id number] 2021 Medicaid [id number] 2021 Medicare [id number] 2021 Medicare [id number] 2017 Private Health Insurance [id number] 2017 Unknown 2012 Private Health Insurance [id number] 2011 Private Health Insurance [id number] 1962 Unknown [id number] 1962 Unknown [id number] Medicare SELF PAY INSURANCE [id number] Unknown [id number] Unknown [id number] Unknown [id number] Unknown [id number] Unknown [id number] Unknown [id number] Unknown [id number] Unknown [id number] Unknown [id number] Unknown [id number] Unknown [id number] Unknown [id number] Unknown [id number] Unknown [id number] Unknown [id number] Social History Date Type Detail Facility [facility] Start: 07-28-2021 End: 06-21-2023 Tobacco smoking consumption unknown [facility] Start: 06-25-2020 End: 08-23-2023 Tobacco smoking status NHIS Occasional tobacco smoker [facility] Start: 05-03-1989 End: 05-03-2019 History of tobacco use Cigarette Smoker [facility] Start: 06-25-2020 End: 08-14-2022 Cigarettes smoked current (pack per day) - Reported 0.25 [facility] Work Phone: Start: 06-25-2020 End: 12-11-2023 Tobacco use and exposure Smokeless tobacco non-user [facility] Start: 06-21-2021 End: 10-05-2022 Alcohol intake Current drinker of alcohol (finding) [facility] Start: 11-13-2011 History SDOH Alcohol Comment rare [facility] Start: 1960 Sex Assigned At Not on file O ANDERSON [facility] Start: 06-01-2021 End: 06-12-2021 Exposure to SARS-CoV-2 (event) Unable to assess [facility] Start: 06-05-2019 End: 12-11-2023 Tobacco smoking status NHIS Ex-smoker [facility] Start: 05-03-1989 End: 05-03-2019 History of tobacco use Current smoker [facility] Start: 05-16-2021 End: 09-24-2024 Alcohol intake Ex-drinker (finding) [facility] Start: 01-08-2018 History SDOH Physica l Activity DPW 3 [facility] Start: 03-20-2021 End: 02-06-2022 Exposure to SARS-CoV-2 (event) Not sure [facility] Start: 01-07-2016 Rare [facility] Start: 01-07-2016 None [facility] Start: 01-07-2016 Spouse/ Signif icant Other [facility] Start: 03-11-2020 Non-smoker [facility] Start: 1960 Sex Assigned At Male W [facility] Start: 08-14-2022 End: 10-05-2022 Tobacco use panel [facility] Work Phone: Adult Depression Screening Assessment 0 [facility] Work Phone: Start: 07-11-2024 Sex Male (finding) [facility] Medical Equipment Procedure Code Equipment Code Equipment [...] 12cm 100cm .028in Closed Tip Push - [id number] Start: 03-27-2021 Comment on above: Description: Donor k idney ureter [id number] Start: 05-31-2012 End: 11-06-2023 Comment on above: Checking blood sugar s 3-4 times daily use as directed up t o four times daily, E11.9 Test blood sugar(s) 3-4 times daily. Dx: 250.00 . Insulin: Yes DM1 on Pump [id number] Start: 03-07-2011 End: 11-06-2023 6 times daily [id number] Start: 04-27-2011 End: 11-06-2023 SUTURE,LIGA CLIP MED [...] FDA Start: 03-19-2020 Blood Sugar Diagnostic (Accu-Chek Kaety Plus Test Strp) strip Start: 04-18-2022 Pen Needle, Diabetic (Bd Ultra-Fine Cici Pen [...] 11-11-2019 End: 11-17-2020 Blood Sugar Diagnostic (Accu-Chek Ktaey Plus Test Strp) strip Start: 11-17-2020 End: 06-09-2021 Blood Sugar Diagnostic (Accu-Chek Kaety Plus Test Strp) strip Start: 07-18-2021 End: [...] 06-29-2018 Checking blood sugars 3-4 times daily [id number] Start: 11-07-2019 use as directed up to four times daily, E11.9 [id number] Start: 09-29-2019 Test blood sugar(s) 3-4 times daily. Dx: 250.00 . Insulin: Yes [id number] Start: 06-25-2017 SUTURE,LIGA CLIP MED LT200 FDA [...] Assessment Result Facility 06-11-2021 Functional status Ambulates [facility] Work Phone: 09-16-2019 Are you deaf, or do you have serious difficulty hearing No 09/16/2019 2:34 PM Gama Crespo RN [facility] 09-16-2019 Are you blind, or do you have serious difficulty seeing, even when wearing glasses No 09/16/2019 2:34 PM Gama Crespo RN No [facility] 09-16-2019 Do you have serious difficulty walking or climbing stairs No 09/16/2019 2:34 PM Gama Crespo RN [facility] 09-16-2019 Do you have difficul ty dressing or bathing No 09/16/2019 2:34 PM Gama Crespo RN [facility] 09-16-2019 Because of a physica l, mental, or emotional condition, do you have difficulty doing errands alone such as visiting a physician's office or shopping No 09/16/2019 2:34 PM EDT Gama Goins RN No [facility] Mental Status Date Assessment Result Facility 04-25-2023 Cognitive function Level Of Cons ciousness Awake;Alert;Appropriate;Fol lows Commands [facility] Work Phone: 06-11-2021 Cognitive function Voice/Name [facility] Work Phone: 06-09-2021 Cognitive function Level Of Cons ciousness Awake;Alert;Appropriate;Fol lows Commands [facility] Work Phone: 09-16-2019 Because of a physica l, mental, or emotional condition, do you have serious difficulty concentrating, remembering, or making decisions No 09/16/2019 2:34 PM EDT Gama Goins RN No [facility] Clinical Notes 04-21-2011 to 09-24-2024 George Pacheco MD - 09/24/2024 1:23 PM EDTPatient InstructionsGarHandy duarte DO - 09/17/2024 5:04 PM EDTPatient InstructionsTriny Palmer - 08/11/2024 2:18 PM EDTPatient Instructions Note Date & Type Note Facility 09-24-2024 Note HNO ID: [id number] Author: GEORGE PACHECO MD Service: ? Author [...] agree with all of its relevant components. [facility] 09-24-2024 History of Present illness Narrative ASSESSMENT/PLAN: [...] its relevant components. documented in this encounter [facility] 09-24-2024 Note Date of Procedure 09/24/2024. Audiovisual Tech Information Safe Deposit Attendant: HILDA. Quality Right Eye Good. Left Eye Good. NFL Interpretation Right Eye Normal. Left Eye Normal. Ganglion Cell Layer Thickness Right Eye Other ocular pathology influencing GCL interpretation. Left Eye Other ocular pathology influencing GCL interpretation. Interval Change Right Eye Stable. Left Eye Stable. [facility] 09-24-2024 Note Date of Procedure 09/24/2024. Audiovisual Tech Information Safe Deposit Attendant: hilda. Reliability Right Eye Good. Left Eye [...] any questions please contact our office at [phone]. After office hours or on the weekend, please call Dr. Pacheco on his cell phone at [phone]. documented in this encounter [facility] 09-17-2024 Note HNO ID: [id number] Author: HANDY HENDERSON, DO Service: ? Author [...] transplant, continues to follow up 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 HPL, taking statin therapy with lipitor 40 mg a day + chronic fatigue, diagnosed at last OFFICE VISIT with vitamin D and vitamin B12 deficiency, he has just started taking supplement Hx of aortic dilation and LVH on echo- + chronic intermittent dyspnea, no chest pressure or pain or palpitations or syncope Did see Nitrate Operator at [facility] for opinion PAST MEDICAL HISTORY Diagnosis Date Arrhythmia CKD (chronic kidney disease) stage 3, GFR 30-59 ml/min ([facility]) [facility] Coronary artery disease 2006 s/p PCI. 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 Heart attack ([facility]) Hyperlipidemia Hypertension Lacunar stroke ([facility]) Macular edema [facility] MVP (mitral valve prolapse) Pancreatitis ([facility]) Proliferative diabetic retinopathy(362.02) [facility] Snoring Stroke ([facility]) 2017 Tobacco abuse PAST SURGICAL HISTORY Procedure [...] Checking blood sugars 3-4 times daily Insulin [place], Disposable, (BD ULTRAFINE III MINI PEN) 31 gauge x 3/16 use as directed up to four times daily, E11.9 Blood-Glucose Sensor (DEXCOM G6 SENSOR) darleen Change Sensor every 14 days Patient reading blood sugar 12 times daily Blood-Glucose Meter,Continuous (DEXCOM G4 OUTDOOR ADVENTURE INSTRUCTOR-SHARE KIT) [facility] device, patient checks b (more content not included)... [facility] 09-17-2024 History of Present illness Narrative CC: [...] transplant, continues to follow up 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 HPL, taking statin therapy with lipitor 40 mg a day + chronic fatigue, diagnosed at last OFFICE VISIT with vitamin D and vitamin B12 deficiency, he has just started taking supplement Hx of aortic dilation and LVH on echo- + chronic intermittent dyspnea, no chest pressure or pain or palpitations or syncope Did see Nitrate Operator at [facility] for opinion PAST MEDICAL HISTORY Diagnosis Date Arrhythmia CKD (chronic kidney disease) stage 3, GFR 30-59 ml/min ([facility]) [facility] Coronary artery disease 2005 s/p PCI. 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 ([facility]) Hyperlipidemia Hypertension Lacunar stroke ([facility]) Macular edema [facility] MVP (mitral valve prolapse) Pancreatitis ([facility]) Proliferative diabetic retinopathy(362.02) [facility] Snoring Stroke ([facility]) 2017 Tobacco abuse PAST SURGICAL HISTORY Procedure [...] Checking blood sugars 3-4 times daily Insulin [place], Disposable, (BD ULTRAFINE III MINI PEN) 31 gauge x 3/16 use as directed up to four times daily, E11.9 Blood-Glucose Sensor (DEXCOM G6 SENSOR) darleen Change Sensor every 14 days Patient reading blood sugar 12 times daily Blood-Glucose Meter,Continuous (DEXCOM G4 OUTDOOR ADVENTURE INSTRUCTOR-SHARE KIT) misc [place] device, patient checks blood sugars 12 times daily Blood-Glucose Transmitter (DEXCOM G6 TRANSMITTER) darleen 1 Each as directed. Blood-Glucose Meter,Continuous (DEXCOM G6 OUTDOOR ADVENTURE INSTRUCTOR) misc 1 Each as directed. insulin detemir [...] ICD9: 250.51, 362.02, ICD10: E10.3553 F/u with Timber Cruiser managing his symptoms. 4. Vitamin D deficiency - ICD9: 268.9, ICD10: E55.9 Just started supplement, levels were low.; this will help with fatigue 5. Hypercholesteremia - ICD9: 272.0, ICD10: E78.00 Stable, chronic. 6. LVH (left ventricular hypertrophy) - ICD9: 429.3, ICD10: I51.7 Seen by Nitrate Operator, no new changes in symptoms 7. Aortic dilatation - ICD9: 447.70, ICD10: I77.819 Seen by Nitrate Operator, no new changes in symptoms 8. NORBERTO (obstructive sleep apnea) - ICD9: 327.23, ICD10: G47.33 Continue CPAP 9. Status post kidney transplant (HCC) - ICD9: V42.0, ICD10: Z94.0 F/u with Tool Shaper Set Up Operator 10. Vitamin B12 deficiency - ICD9: 266.2, [...] plan. See patient instructions. Handy Henderson DO [address] [place] [address] documented in this encounter [facility] 09-17-2024 Instructions Christine Killian LPN - [...] am on dialysis? A: Please consult your insurance solicitor prior to scheduling to get instructions pertinent to you. In general, dialysis patients take the [employer] bowel prep and have the procedure same [...] of the day. documented in this encounter [facility] 08-14-2024 Telephone encounter Note Phoned patient went over results, notes from Dr Henderson with understanding. Patient requested to have sent to his my chart please, which was done. [facility] 08-14-2024 Miscellaneous Notes Phoned patient went [...] Handy Henderson DO documented in this encounter [facility] 08-13-2024 Telephone encounter Note Please let him know that his recent lab results show that his vitamin D levels and vitamin B12 levels are too low. Needs to increase supplements with extra 2000 international unit(s) a day of vitamin D3 with a meal as well as extra 500-1000 mcg a day of vitamin B12 supplement Handy Henderson DO [facility] 08-11-2024 History of Present illness Narrative [...] 3 month follow up diabetic foot/nail care. [facility] 05/12/24 documented in this encounter [facility] 08-11-2024 Note HNO ID: [id number] Author: JENNATRINY CONTRERAS, ? Service: ? Author Type: Physician Type: [...] RTC in 3-4 months. Triny Palmer DPM [facility] 08-11-2024 Instructions Triny Palmer - 08/11/2024 2:17 [...] (or decreased sensation in your feet) a refrigerator car icer should always cut your toenails. Be Careful [...] Go to your health care provider or refrigerator car icer to treat these conditions. documented in this encounter [facility] 08-11-2024 Note HNO ID: [id number] Author: DELMY BETH, RN Service: ? Author Type: Registered Nurse Type: Progress Notes Filed: 08/11/2024 21:51 Note Text: Patient presents with: Left Foot - Established Patient, Follow Up, Diabetic Foot Care Right Foot - Established Patient, Follow Up, Diabetic Foot Care Patient presents for 3 month follow up diabetic foot/nail care. [facility] 05/12/24 [facility] 06-17-2024 Note HNO ID: [id number] Author: HANDY HENDERSON DO Service: ? Author [...] transplant, continues to follow up 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 HPL, taking statin therapy with lipitor 40 mg a day + chronic fatigue Hx of aortic dilation and LVH on echo- + chronic intermittent dyspnea, no chest pressure or pain or palpitations or syncope PAST MEDICAL HISTORY Diagnosis Date Arrhythmia CKD (chronic kidney disease) stage 3, GFR 30-59 ml/min (FORM[facility]LY [facility]) [facility] Coronary artery disease 2005 s/p PCI. 3 stents total Diabetes type 1, uncontrolled 1971 nephropathy, retinopathy, dx age 10, Dr. Leon [facility] Heart attack (HCC) Hyperlipidemia Hypertension Lacunar stroke (HCC) Macular edema [facility] MVP (mitral valve prolapse) Pancreatitis Proliferative diabetic retinopathy(362.02) [facility] Snoring Stroke (HCC) 2017 Tobacco abuse PAST SURGICAL HISTORY Procedure [...] Checking blood sugars 3-4 times daily Insulin [place], Disposable, (BD ULTRAFINE III MINI PEN) 31 gauge x 3/16 use as directed up to four times daily, E11.9 Blood-Glucose Sensor (DEXCOM G6 SENSOR) darleen Change Sensor every 14 days Patient reading blood sugar 12 times daily Blood-Glucose Meter,Continuous (DEXCOM G4 OUTDOOR ADVENTURE INSTRUCTOR-SHARE KIT) misc [place] device, patient checks blood sugars 12 times daily Blood-Glucose Transmitter (DEXCOM G6 TRANSMITTER) darleen 1 Each as directe (more content not included)... [facility] 06-17-2024 History of Present illness Narrative CC: [...] transplant, continues to follow up 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 HPL, taking statin therapy with lipitor 40 mg a day + chronic fatigue Hx of aortic dilation and LVH on echo- + chronic intermittent dyspnea, no chest pressure or pain or palpitations or syncope PAST MEDICAL HISTORY Diagnosis Date Arrhythmia CKD (chronic kidney disease) stage 3, GFR 30-59 ml/min ([facility]) [facility] Coronary artery disease 2006 s/p PCI. 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 Leon [facility] Heart attack ([facility]) Hyperlipidemia Hypertension Lacunar stroke ([facility]) Macular edema [facility] MVP (mitral valve prolapse) Pancreatitis Proliferative diabetic retinopathy(362.02) [facility] Snoring Stroke ([facility]) 2017 Tobacco abuse PAST SURGICAL HISTORY Procedure [...] Checking blood sugars 3-4 times daily Insulin [place], Disposable, (BD ULTRAFINE III MINI PEN) 31 gauge x 3/16 use as directed up to four times daily, E11.9 Blood-Glucose Sensor (DEXCOM G6 SENSOR) darleen Change Sensor every 14 days Patient reading blood sugar 12 times daily Blood-Glucose Meter,Continuous (DEXCOM G4 OUTDOOR ADVENTURE INSTRUCTOR-SHARE KIT) misc [place] device, patient checks blood sugars 12 times daily Blood-Glucose Transmitter (DEXCOM G6 TRANSMITTER) darleen 1 Each as directed. Blood-Glucose Meter,Continuous (DEXCOM G6 OUTDOOR ADVENTURE INSTRUCTOR) misc 1 Each as directed. insulin detemir [...] 429.3, ICD10: I51.7 F/u with echo and nylon hot wire cutter 5. Aortic dilatation (HCC) - ICD9: 447.70, [...] ICD9: 250.51, 362.02, ICD10: E10.3553 F/u with [employer]ber [employer], has insulin pump 8. NORBERTO (obstructive sleep apnea) - ICD9: 327.23, ICD10: G47.33 Stable, chronic, continue use of CPAP with benefit 9. Status post kidney transplant - ICD9: V42.0, ICD10: Z94.0 F/u with Tool Shaper Set Up Operator, stable 10. Chronic midline low back pain without sciatica - ICD9: 724.2, 338.29, ICD10: M54.50, G89.29 No new symptoms, stable Handy Henderson DO To ER if develops chest pain, shortness of breath, or severe worsening of symptoms. Discussed risks, benefits, alternatives, and potential side effects of medications. Patient expressed understanding and agreed with the plan. Handy Henderson DO [address] [place] [address] documented in this encounter [facility] 06-03-2024 Evaluation note Diagnosis Onset Date Resolution Left ventricular hypertrophy acute June 03, 2024 2:10pm Essential hypertension chronic June 03, 2024 2:10pm History of coronary artery stent placement April 21, 2011 chronic June 03, 2024 2:10pm Hyperlipidemia chronic June 03, 2024 2:10pm Kidney transplant recipient chronic June 03, 2024 2:10pm Venous insufficiency chronic 2024 2:10pm [facility] Work Phone: 1(980) 551-592202-21-2025 NoteDate of Procedure 05/23/2024. C/D Ratio Right Eye 0.3. Left Eye 0.3. Disc Right Eye Cupping. Left Eye Cupping. Macula Right Eye (Panretinal laser photocoagulation scars). Left Eye Normal. Periphery Right Eye Laser scars (MA's ). Left Eye Laser scars (MA's).[id number] NoteHNO ID: [id number] Author: GEORGE PACHECO MD Service: ? Author [...] all of its relevant components. George Pacheco, [facility]02-21-2025 History of Present illness Narrative* George Pacheco [...] components. George Pacheco MD [facility] NoteHNO ID: [id number] Author: TRINY PALMER, ? Service: ? Author [...] to RTC in 3-4 months. Triny Palmer [facility]02-10-2025 History of Present illness Narrative* Spencer Triny - 05/12/2024 2:25 PM EST Last saw [...] Palmer DPM * Delmy Beth RN - 05/12/2024 2:13 PM EST Patient presents with: Left Foot - Established Patient, Follow Up, Diabetic Foot Care Right Foot - Established Patient, Follow Up, Diabetic Foot Care Patient presents for follow up diabetic foot care. JAMEY 11/27/23 [facility] Instructions* Patient Instructions* Triny Palmer - [...] (or decreased sensation in your feet) a refrigerator car icer should always cut your toenails. Be Careful [...] Go to your health care provider or refrigerator car icer to treat these conditions. [facility]02-[facility]-2025 NoteHNO ID: [id number] Author: DELMY BETH RN Service: ? Author Type: Registered Nurse Type: Progress Notes Filed: 05/12/2024 14:44 Note Text: Patient presents with: Left Foot - Established Patient, Follow Up, Diabetic Foot Care Right Foot - Established Patient, Follow Up, Diabetic Foot Care Patient presents for follow up diabetic foot care. [facility] 11/27/23[facility]02-08-2025 NoteHNO ID: [id number] Author: NIKKY CHEN APRN.MARIA M Service: ? Author Type: Nurse Practitioner Type: Progress Notes Filed: 05/10/2024 14:21 Note Text: This note was created using [employer]. Subjective Андрей Nickerson is a 63 year [...] management Medical Decision Making Level: 3 - [facility] History of Present illness Narrative* Nikky Chen APRN.MARIA M - 05/10/2024 2:03 PM EST This note was created using [employer]. Subjective Андрей Nickerson is a 63 year [...] Level: 3 - Low [facility]25 NoteHNO ID: [id number] Author: REYES PEREA, PT Service: ? Author Type: Physical Therapist Type: Progress Notes Filed: 04/07/2024 10:15 Note Text: 04/07/2024 [facility] PHYSICAL THERAPY DISCONTINUANCE OF CARE Plan of Care Period: Start of Care Date: 01/15/24 Last Visit Date: 01/28/2024 Therapy Program: The following is a summary of the interventions provided for this episode of care; Therapeutic exercise and Self-halfway management Assessment: Based on most recent visit, patient was progressing slower than expected toward functional goals based on appointment compliance. Unable to formally assess goal achievement, as patient has not returned to therapy or scheduled additional follow-up appointments. Reason for Discontinuation of Care: Patient has not returned to therapy or scheduled additional follow-up appointments. Reyes Perea, [facility]12-11-2024 NoteHNO ID: [id number] Author: HANDY HENDERSON DO Service: ? Author Type: Physician Type: Progress Notes Filed: 03/12/2024 21:16 Note Text: CC: Андрей Nickesron is a 63 year old male who [...] transplant, continues to follow up 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 HPL, taking statin therapy with lipitor 40 mg a day Cholesterol, Total Date Value Ref Range Status 12/10/2023 79 <200 mg/dL Final Comment: <200 mg/dL, Desirable 200-239 mg/dL, Borderline high >239 mg/dL, High Reference: 1. National Cholesterol Education Program ATP III Guideline At-A-Glance Quick Desk Reference: National Heart, Lung, and Blood [place]. National Institutes of Health. 2001: NIH Publication No. 01-3305. HDL Cholesterol Date Value Ref Range Status 12/10/2023 41 >39 mg/dL Final Comment: 40-59 mg/dL, Acceptable >59 mg/dL, High: Negative risk factor for coronary heart disease <40 mg/dL, Low: Positive risk factor for coronary heart disease Reference: 1. National Cholesterol Education Program ATP III Guideline At-A-Glance Quick Desk Reference: National Heart, Lung, and Blood [place]. National Institutes of Health. 2001: [facility] Publication No. 01-3305. LDL Cholesterol Date Value [...] Desk Reference: National Heart, Lung, and Blood [place]. National Institutes of Health. 2001: [facility] Publication No. 01-3305. Glucose (mg/dL) Date Value [...] kidney disease) stage 3, GFR 30-59 ml/min ([facility]) [facility] Coronary artery disease 2006 s/p PCI. 3 stents total Diabetes type 1, uncontrolled 1971 nephropathy, retinopathy, dx age 10, Dr. Leon [facility] Heart attack ([facility]) Hyperlipidemia Hypertension Lacunar stroke ([facility]) Macular edema [facility] MVP (mitral valve prolapse) Pancreatitis Proliferative diabetic retinopathy(362.02) [facility] Snoring Stroke ([facility]) 2017 Tobacco abuse PAST SURGICAL HISTORY Procedure [...] with PC IOL Current (more content not included)...[facility]10-28-2024 History of Present illness Narrative* Reyes Perea, PT - 01/28/2024 5:06 PM EDT Program_ID:[id number] Access Code: [email or web address] URL: [email or web address] Date: 01-28-2024 Prepared By: Reyes Perea Program [...] [address] Reyes Perea PT documented in this encounterBl[facility]10-28-2024 NoteHNO ID: [id number] Author: REYES PEREA PT Service: ? Author [...] 1631 Session Stop Time : [address] Reyes Perea, [facility]10-17-2024 Telephone encounter Note * Telephone Encounter - Radha Jha - 01/17/2024 11:43 AM EDT Patient has been scheduled and seen, cancelled order. [facility]10-17-2024 Miscellaneous Notes* Telephone Encounter - Radha Jha - 01/17/2024 11:43 AM EDT Patient has been scheduled and seen, cancelled order. * Telephone Encounter - Handy Henderson DO - 01/17/2024 9:33 AM EDT Order placed for PHYSICAL THERAPY Handy Henderson DO * Telephone Encounter - Christine Killian LPN - 01/15/2024 3:28 PM EDT Please schedule Pain management Appointment. * Telephone Encounter - Elisa Andre PA-C - [...] future Handy Henderson DO documented in this encounterBluff[facility] Hospital10-17-2024 Telephone encounter Note * Telephone Encounter - Handy Henderson DO - 01/17/2024 9:33 AM EDT Order placed for PHYSICAL THERAPY Handy Henderson DO [facility]10-15-2024 Telephone encounter Note* Telephone Encounter - Christine Killian LPN - 01/15/2024 3:28 PM EDT Please schedule Pain management Appointment. [facility]10-15-2024 Telephone encounter Note* Telephone Encounter - Elisa Andre PA-C - 01/15/2024 2:45 PM EDT Ordered Elisa Andre PA-C [facility]10-15-2024 History of Present illness Narrative* Reyes Perea, PT - 01/15/2024 2:11 PM EDT Program_ID:[id number] Access Code: [email or web address] URL: [email or web address] Date: 01-15-2024 Prepared By: Reyes Perea Program [...] 2 sets - 10-15 reps * Reyes Perea, PT - 01/15/2024 1:22 PM EDT Images [...] increase T-score by a minimum 5 points. [place] in home exercise program. Patient will decrease [...] Planned: 4 Planned Treatment Interventions: Therapeutic exercise (25352), Neuromuscular re- education (31433), Manual therapy (37060), Therapeutic activities (94923), Self- halfway management (52814), Gait Training (80949), Body Mechanics Training, Patient/Family/Caregiver Education PLAN FOR [...] Minimal limitation, Increased pain Lumbar R Side [place]: Moderate limitation Lumbar L Side [place]: Moderate limitation Lumbar R Side-Bend: Minimal limitation [...] PT Treatment Interventions: Therapeutic Exercise, Manual Therapy, Self-Fci Management Evaluation Therapeutic Exercise: 1: *B SKC: [...] facilitated with verbal, visual, and tactile cuing. Self-Fci Management: 1: *Education about lumbar anatomy related [...] [address] Reyes Perea PT documented in this encounterBl[facility]10-15-2024 NoteHNO ID: [id number] Author: REYES PEREA PT Service: ? Author [...] increase T-score by a minimum 5 points. [place] in home exercise program. Patient will decrease [...] Planned: 4 Planned Treatment Interventions: Therapeutic exercise (18660), Neuromuscular re-education (53971), Manual therapy (70778), Therapeutic activities (88421), Self-halfway management (38302), Gait Training (62640), Body Mechanics Training, Patient/Family/Caregiver Education PLAN FOR [...] to the general population. (more content not included)...[facility]10-15-2024 Telephone encounter Note* Telephone Encounter - Magdalena Cabezas LPN - 01/15/2024 11:24 AM EDT Phoned patient went over results, notes from Dr Henderson with understanding. He starts PT later today. Patient asking for Pain Management consult and will go from there. Pending consult, needs diagnosis. [facility]10-15-2024 Telephone encounter Note* Telephone Encounter - [...] pain in the future Handy Henderson DO [facility]09-16-2024 Telephone encounter Note* Telephone Encounter - Juanita Núñez MA - 12/17/2023 12:38 PM EDT Pt notified. Will call back to schedule PT. Juanita Núñez MA [facility]09-16-2024 Miscellaneous Notes* Telephone Encounter - Juanita [...] advise, Sakina Webb RN documented in this encounterBluffton Hospital09-16-2024 Telephone encounter Note * Telephone Encounter - Handy Henderson DO - 12/17/2023 12:04 PM EDT He needs to work on CORE strengthening exercises and weight loss. Can consider PHYSICAL THERAPY to help with the pain as well Handy Henderson DO [facility]09-12-2024 Telephone encounter Note* Telephone Encounter - Sakina Webb RN - 12/13/2023 11:56 AM EDT Patient calling and states that he received result notes that he has some moderate generalized degenerative changes in his thoracic mid spine. Patient asking if there is anything he can do to help with the chronic back pain? Please review and adviseSakina RN [facility]09-10-2024 History of Present illness Narrative* Munir [...] PATIENT PRESENTS WITH AN IMPLANTABLE OR ATTACHED LEGAL COMPLIANCE OFFICER: Yes Dexcom RADIOLOGY DEPARTMENT: General X-ray: Exam(s) Completed: Spine X-Ray(s): Thoracic and Lumbar AP / LAT / L5-S1 PERIPHERAL IV DATA: Not applicable SIGNED BY: VIRGIE Chan) December 11, 2023 4:17 PM documented in this encounterBluffton Hospital09-10-2024 NoteHNO ID: [id number] Author: MUNIR CARMONA RT(R) Service: Radiology Author [...] PATIENT PRESENTS WITH AN IMPLANTABLE OR ATTACHED LEGAL COMPLIANCE OFFICER: Yes [employer]com RADIOLOGY DEPARTMENT: General X-ray: Exam(s) Completed: Spine X-Ray(s): Thoracic and Lumbar AP / LAT / L5-S1 PERIPHERAL IV DATA: Not applicable SIGNED BY: RT Rocio(Yelitza) December 11, 2023 4:17 [facility]09-10-2024 Instructions* Patient Instructions* Handy Henderson DO - [...] needed for severe pain. documented in this encounterBluffton Hospital09-10-2024 NoteHNO ID: [id number] Author: HANDY HENDERSON DO Service: ? Author [...] kidney disease) stage 3, GFR 30-59 ml/min ([facility]) Comment: [facility] 2006: Coronary artery disease Comment: s/p PCI. 3 stents total 1971: Diabetes type 1, uncontrolled Comment: nephropathy, retinopathy, dx age 10, Dr. Leon [facility] No date: Heart attack ([facility]) No date: Hyperlipidemia No date: Hypertension No date: Lacunar stroke ([facility]) No date: Macular edema Comment: [facility] No date: MVP (mitral valve prolapse) No date: Pancreatitis No date: Proliferative diabetic retinopathy(362.02) Comment: [facility] No date: Snoring 2017: Stroke ([facility]) No date: Tobacco abuse PAST SURGICAL HISTORY No date: AVASTIN (BEVACIZUMAB) 1.25MG INTRAVITREAL INJECTION OS (LEFT EYE) Comment: x5 (04/16/2015) Dr. Connelly 01/12/2022: CANALOPLASTY W/O STENT; Right Comment: Canaloplasty 360 degrees / Trabeculotomy 180 degrees 2006, 2008, 2011: CARDIAC CATH Comment: mid / [...] 1 tablet by mouth once daily. Gum Mgvrwy-Xmuwmf-BHat-Alcohol (MASTISOL ADHESIVE) dpet 1 application as directed. tamsulosin (FLOMAX) 0.4 mg TAKE 1 CAPSULE BY MOUTH EVERYDAY AT BEDTIME blood sugar diagnostic (ONETOUCH ULTRA TEST) test strip Checking blood sugars 3-4 times daily Insulin [place], Disposable, (BD ULTRAFINE III MINI PEN) 31 gauge x 3/16 use as directed up to four times daily, E11.9 Blood-Glucose Sensor (DEXCOM G6 SENSOR) darleen Change Sensor every 14 days Patient reading blood sugar 12 times daily Blood-Glucose Meter,Continuous (DEXCOM G4 OUTDOOR ADVENTURE INSTRUCTOR-SHARE KIT) misc [place] device, patient checks blood sugars 12 times daily Blood-Glucose Transmitter (DEXCOM G6 TRANSMITTER) darleen 1 Each as directed. Blood-Glucose Meter,Continuous (DEXCOM G6 OUTDOOR ADVENTURE INSTRUCTOR) misc 1 Each as directed. insulin detemir [...] with mild nonproliferative diabetic (more content not included)...[facility]09-10-2024 History of Present illness Narrative* Handy Henderson, [...] kidney disease) stage 3, GFR 30-59 ml/min ([facility]) Comment: [facility] 2005: Coronary artery disease Comment: s/p PCI. 3 stents total 1970: Diabetes type 1, uncontrolled Comment: nephropathy, retinopathy, dx age 10, Dr. Leon [facility] No date: Heart attack ([facility]) No date: Hyperlipidemia No date: Hypertension No date: Lacunar stroke ([facility]) No date: Macular edema Comment: [facility] No date: MVP (mitral valve prolapse) No date: Pancreatitis No date: Proliferative diabetic retinopathy(362.02) Comment: [facility] No date: Snoring 2017: Stroke ([facility]) No date: Tobacco abuse PAST SURGICAL HISTORY [...] 1 tablet by mouth once daily. Gum Mevfns-Nzmrqk-BPpj-Alcohol (MASTISOL ADHESIVE) dpet 1 application as directed. tamsulosin (FLOMAX) 0.4 mg TAKE 1 CAPSULE BY MOUTH EVERYDAY AT BEDTIME blood sugar diagnostic (ONETOUCH ULTRA TEST) test strip Checking blood sugars 3- 4 times daily Insulin [place], Disposable, (BD ULTRAFINE III MINI PEN) 31 gauge x 3/16 use as directed up to four times daily, E11.9 Blood-Glucose Sensor (DEXCOM G6 SENSOR) darleen Change Sensor every 14 days Patient reading blood sugar 12 times daily Blood-Glucose Meter,Continuous (DEXCOM G4 OUTDOOR ADVENTURE INSTRUCTOR-SHARE KIT) mis [employer] [place] device, patient checks blood sugars 12 times daily Blood-Glucose Transmitter (DEXCOM G6 TRANSMITTER) darleen 1 Each as directed. Blood-Glucose Meter,Continuous (DEXCOM G6 OUTDOOR ADVENTURE INSTRUCTOR) misc 1 Each as directed. insulin detemir [...] plan. See patient instructions. Handy Henderson DO [address] [place] [address] documented in this encounterBluffton Hospital08-27-2024 NoteHNO ID: [id number] Author: TRINY PALMER, ? Service: ? Author [...] to RTC in 3-4 months. Triny Palmer [facility]08-27-2024 History of Present illness Narrative* Triny [...] foot exam. JAMEY 07/30/23 documented in this encounterBluffton Hospital08-27-2024 Instructions* Patient Instructions* Triny Palmer - [...] (or decreased sensation in your feet) a refrigerator car icer should always cut your toenails. Be Careful [...] Go to your health care provider or refrigerator car icer to treat these conditions. documented in this encounterBluffton Hospital08-27-2024 NoteHNO ID: [id number] Author: DELMY BETH RN Service: ? Author Type: Registered Nurse Type: Progress Notes Filed: 11/27/2023 14:11 Note Text: Patient presents with: Left Foot - Established Patient, Follow Up, Diabetic Foot Care Right Foot - Established Patient, Follow Up, Diabetic Foot Care Patient presents for follow up diabetic foot exam. [facility] 07/30/23[facility]08-12-2024 NoteHNO ID: [id number] Author: GEORGE PACHECO MD Service: ? Author [...] with all of its relevant components. George Pacheco [facility]08-12-2024 History of Present illness Narrative* George Pacheco [...] components. George Pacheco MD documented in this encounterBluffton Hospital08-12-2024 NoteDate of Procedure 11/12/2023. Audiov[employer]ual Tech Information Safe Deposit Attendant: cayla. Quality Right Eye Good. Left Eye Good. NFL Interpretation Right Eye Normal. Left Eye Normal. Interval Change Right Eye Stable. Left Eye Stable.[id number] Instructions* Patient Instructions* George Pacheco MD - [...] any questions please contact our office at [phone]. After office hours or on the weekend, please call Dr. Pacheco on his cell phone at [phone]. documented in this encounterBluffton Hospital08-07-2024 NoteHNO ID: [id number] Author: GLYNN LEON MD Service: ? Author [...] kidney disease) stage 3, GFR 30-59 ml/min ([facility]) Comment: [facility] 2006: Coronary artery disease Comment: s/p PCI. 3 stents total 1971: Diabetes type 1, uncontrolled Comment: nephropathy, retinopathy, dx age 10, Dr. Leon [facility] No date: Heart attack ([facility]) No date: Hyperlipidemia No date: Hypertension No date: Lacunar stroke (HCC) No date: Macular edema Comment: [facility] No date: MVP (mitral valve prolapse) No date: Pancreatitis No date: Proliferative diabetic retinopathy(362.02) Comment: [facility] No date: Snoring 2017: Stroke (HCC) No [...] Checking blood sugars 3-4 times daily Insulin S[place], Disposable, (BD ULTRAFINE III MINI PEN) 31 gauge x 3/16 use as directed up to four times daily, E11.9 Blood-Glucose Sensor (DEXCOM G6 SENSOR) darleen Change Sensor every 14 days Patient reading blood sugar 12 times daily Blood-Glucose Meter,Continuous (DEXCOM G4 OUTDOOR ADVENTURE INSTRUCTOR-SHARE KIT) misc One [place]a device, patient checks blood sugars 12 times daily Blood-Glucose Transmitter (DEXCOM G6 TRANSMITTER) darleen 1 Each as directed. Blood-Glucose Meter,Continuous (DEXCOM G6 OUTDOOR ADVENTURE INSTRUCTOR) misc 1 Each as directed. insulin detemir [...] (Patient not taking: Reported on 11/07/2023) Gum Yrcfpr-Hifjmn-AGup-Alcohol (MASTISOL ADHESIVE) dpet 1 application as directed. No current facility-administered medications for this visit. ALLERGIES: ALLERGIES No Known Allergies VITALS: BP 120/70 Pulse 70 Temp 36 ?C (96.8 ?F) Resp 21 Wt 120.8 kg (266 lb (more content not included)...[facility]08-07-2024 History of Present illness Narrative* Glynn Leon [...] kidney disease) stage 3, GFR 30-59 ml/min ([facility]) Comment: [facility] 2005: Coronary artery disease Comment: s/p PCI. 3 stents total 1971: Diabetes type 1, uncontrolled Comment: nephropathy, retinopathy, dx age 10, Dr. Leon [facility] No date: Heart attack ([facility]) No date: Hyperlipidemia No date: Hypertension No date: Lacunar stroke ([facility]) No date: Macular edema Comment: [facility] No date: MVP (mitral valve prolapse) No date: Pancreatitis No date: Proliferative diabetic retinopathy(362.02) Comment: [facility] No date: Snoring 2017: Stroke ([facility]) No date: Tobacco abuse PAST SURGICAL HISTORY [...] blood sugars 3- 4 times daily Insulin [place], Disposable, (BD ULTRAFINE III MINI PEN) 31 gauge x 3/16 use as directed up to four times daily, E11.9 Blood-Glucose Sensor (DEXCOM G6 SENSOR) darleen Change Sensor every 14 days Patient reading blood sugar 12 times daily Blood-Glucose Meter,Continuous (DEXCOM G4 OUTDOOR ADVENTURE INSTRUCTOR-SHARE KIT) misc One [place]a device, patient checks blood sugars 12 times daily Blood-Glucose Transmitter (DEXCOM G6 TRANSMITTER) darleen 1 Each as directed. Blood-Glucose Meter,Continuous (DEXCOM G6 OUTDOOR ADVENTURE INSTRUCTOR) misc 1 Each as directed. insulin detemir [...] (Patient not taking: Reported on 11/07/2023) Gum Fqwcua-Lyqgdf-QIqu-Alcohol (MASTISOL ADHESIVE) dpet 1 application as directed. [...] TABLET Glynn Leon MD documented in this encounterBluffton Hospital08-06-[facility]24 History of Present illness Narrative* Mirna Stuart APRN-MENDING CARRIER - 11/06/2023 2:30 PM EDT Images from [...] R+. ATG induction 1.75 mg/kg total. Pre-transplant insurance solicitor: Rosario Cardenas, no longer following. PCP: Dr. [...] 1 drop in both eyes daily. Labs: [place] ADAMARIS testing at 28 to 56 days [...] lab results. Mirna Stuart MS (Link), RN, BRUSHER MACHINE-MENDING CARRIER Certified Nurse Practitioner [facility] [address] [place] [address] documented in this encounterOS[facility] Instructions* Patient Instructions* DANIEL Soler - 11/06/2023 2:30 PM EDT -Labs today in clinic and then continue labs every 2 months -No medication changes today -Recommend seeing a general insurance solicitor -Follow up in 1 year documented in this encounterOSU [facility] NoteDate of Procedure 09/11/2023. Audiovisual Tech Information Safe Deposit Attendant: cayla. Reliability Right Eye Good. Left Eye Good. Interpretation Right Eye Arcuate defect; Comments: (Inferior arcuate field loss). Left Eye Arcuate defect; Comments: (Inferior arcuate field loss). Interval Change Right Eye Stable. Left Eye Stable.[id number] NoteDate of Procedure 09/11/2023. Audiovisual Tech Information Safe Deposit Attendant: cayla. C/D Ratio Right Eye 0.3. Left Eye 0.3. Disc Right Eye Cupping. Left Eye Cupping. Macula Right Eye (Panretinal laser photocoagulation scars). Left Eye Normal. Periphery Right Eye Laser scars. Left Eye Laser scars.[id number] Instructions* Patient Instructions* George Pacheco MD - [...] any questions please contact our office at [phone]. After office hours or on the weekend, please call Dr. Pacheco on his cell phone at [phone]. documented in this encounterBluffton Hospital06-11-2024 History of Present illness Narrative* George [...] of its relevant components. documented in this encounterBluffton Hospital05-22-2024 Telephone encounter Note * Telephone Encounter - Mariam Singleton LPN - 08/22/2023 9:09 AM EDT Spoke with patient. Dr. Lawrence's office has placed order. Mariam Singleton LPN [facility]05-22-2024 Miscellaneous Notes* Telephone Encounter - Mariam [...] would like the office to be in [place]. He states he is okay with this being at [facility] if necessary. Awa Jorge MA documented in this encounterBluffton Hospital05-22-2024 Telephone encounter Note * Telephone Encounter [...] like (this appears new) Triny Palmer DPM [facility]05-20-2024 Telephone encounter Note* Telephone Encounter - Awa Jorge MA - 08/20/2023 9:36 AM EDT Patient phoned requesting a referral to wound care. He would like the office to be in [place]. He states he is okay with this being at [facility] if necessary. Awa Jorge MA [facility]04-29-2024 History of Present illness Narrative* Triny Palmer - 07/30/2023 2:12 PM EDT Last saw pcp: 07/26/23 Subjective: Patient presents to clinic c/o painful toenails. They state that the nails are especially painful with shoe gear and pressure. Patient states that nails 1-5 b/l are painful. Patient admits to being diabetic. Has swelling in legs and working with vascular surgery from [facility]. No other pedalcomplaints at this time. Patient states no change in medications or medical history since last visit. Objective: Patient presents to clinic ambulating in sneakers Vasc: DP and PT pulses are faintly [...] Up Mariam Singleton LPN documented in this encounterBluffton Hospital04-29-2024 Instructions* Patient Instructions* Triny Palmer - [...] (or decreased sensation in your feet) a refrigerator car icer should always cut your toenails. Be Careful [...] Go to your health care provider or refrigerator car icer to treat these conditions. documented in this encounterBluffton Hospital04-25-2024 History of Present illness Narrative* Irlanda Issa APRN.MENDING CARRIER - 07/26/2023 7:24 AM EDT This note was created using Dresser Mouldingsriter. Subjective Андрей Nickerson is a 62 year [...] history is provided by the patient. No foreign language stenographer was used. Cough This is a new [...] kidney disease) stage 3, GFR 30-59 ml/min ([facility]) [facility] Coronary artery disease 2005 s/p PCI. 3 stents total Diabetes type 1, uncontrolled 1971 nephropathy, retinopathy, dx age 10, Dr. Leon [facility] Heart attack ([facility]) Hyperlipidemia Hypertension Lacunar stroke ([facility]) Macular edema [facility] MVP (mitral valve prolapse) Pancreatitis Proliferative diabetic retinopathy(362.02) [facility] Snoring Stroke ([facility]) 2017 Tobacco abuse PAST SURGICAL HISTORY Procedure [...] MOUTH EVERYDAY AT BEDTIME blood sugar diagnostic (GlassesGroupGlobalTOUCH ULTRA TEST) test strip Checking blood sugars 3- 4 times daily Insulin [place], Disposable, (BD ULTRAFINE III MINI PEN) 31 gauge x 3/16 use as directed up to four times daily, E11.9 Blood-Glucose Sensor (DEXCOM G6 SENSOR) darleen Change Sensor every 14 days Patient reading blood sugar 12 times daily Blood-Glucose Meter,Continuous (DEXCOM G4 OUTDOOR ADVENTURE INSTRUCTOR-SHARE KIT) misc One [place]a device, patient checks blood sugars 12 times daily Blood-Glucose Transmitter (DEXCOM G6 TRANSMITTER) darleen 1 Each as directed. Blood-Glucose Meter,Continuous (DEXCOM G6 OUTDOOR ADVENTURE INSTRUCTOR) misc 1 Each as directed. insulin detemir [...] times a day for 7 days. Gum Dyziiw-Vdijtm-RIxm-Alcohol (MASTISOL ADHESIVE) dpet 1 application as directed. [...] at time of exam WIll cover with Arsenio F/U with PCP for continued sx. Irlanda Issa APRN.MENDING CARRIER documented in this encounterBluffton Hospital04-16-2024 History of Present illness Narrative* Handy Henderson, DO - 07/17/2023 3:12 PM EDT CC: Андрей Nickerson is a 62 year old male who presents to the office for follow up HPI: Recently he has been struggling with a toe ulcer/non healing wound. Has long standing peripheral neuropathy from his type 1 diabetes. He has been seeing [facility] Dr. Palmer for care. Has struggled with b/l leg edema. Xrays have been normal except for soft tissue swelling He is taking amlodipine per insurance solicitor for his HTN and renal protection He has a history of LVH, sees Dr. Shell at [place] heart rust for Nitrate Operator. Hasn't had ECHO since 2019. Does [...] kidney disease) stage 3, GFR 30-59 ml/min ([facility]) [facility] Coronary artery disease 2006 s/p PCI. 3 stents total Diabetes type 1, uncontrolled 1971 nephropathy, retinopathy, dx age 10, Dr. Leon [facility] Heart attack ([facility]) Hyperlipidemia Hypertension Lacunar stroke ([facility]) Macular edema [facility] MVP (mitral valve prolapse) Pancreatitis Proliferative diabetic retinopathy(362.02) [facility] Snoring Stroke ([facility]) 2017 Tobacco abuse PAST SURGICAL HISTORY Procedure [...] 1 tablet by mouth once daily. Gum Lixgul-Ubtchp-UZvw-Alcohol (MASTISOL ADHESIVE) dpet 1 application as directed. tamsulosin (FLOMAX) 0.4 mg TAKE 1 CAPSULE BY MOUTH EVERYDAY AT BEDTIME blood sugar diagnostic (ONETOUCH ULTRA TEST) test strip Checking blood sugars 3- 4 times daily Insulin [place], Disposable, (BD ULTRAFINE III MINI PEN) 31 gauge x 3/16 use as directed up to four times daily, E11.9 Blood-Glucose Sensor (DEXCOM G6 SENSOR) darleen Change Sensor every 14 days Patient reading blood sugar 12 times daily Blood-Glucose Meter,Continuous (DEXCOM G4 OUTDOOR ADVENTURE INSTRUCTOR-SHARE KIT) misc One [place]a device, patient checks blood sugars 12 times daily Blood-Glucose Transmitter (DEXCOM G6 TRANSMITTER) darleen 1 Each as directed. Blood-Glucose Meter,Continuous (DEXCOM G6 OUTDOOR ADVENTURE INSTRUCTOR) misc 1 Each as directed. insulin detemir [...] and renal insufficiency after transplant. F/u with nylon hot wire cutter 2. Hypercholesteremia - ICD9: 272.0, ICD10: E78.00 [...] 447.70, ICD10: I77.819 See above, f/u with Nitrate Operator as scheduled. 8. LVH (left ventricular hypertrophy) - ICD9: 429.3, ICD10: I51.7 See above, f/u with Nitrate Operator as scheduled. 9. NORBERTO (obstructive sleep apnea) - ICD9: 327.23, ICD10: G47.33 Continue CPAP/Bipap, giving him symptoms improvement 10. Immunosuppressed status (HCC) - ICD9: 279.9, ICD10: D84.9 See above, secondary to renal transplant 11. 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) - ICD9: 250.51, 362.02, ICD10: E10.3593 Managed by Timber Cruiser 12. 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) - ICD9: 249.80, 707.15, ICD10: E13.621, L97.509 Managed by refrigerator car icer and wound care 13. Status post kidney [...] See patient instructions. Handy Henderson DO [address] [place] [address] documented in this encounterBluffton Hospital03-21-2024 History and physical note Author Nicolas Lawrence [facility] June 21, 2023 8:17am Note Date/Time June 21, 2023 8:1 5am [facility] Medical Records Department [address] [place] [address] History & Physical Exam 06/21/23 0815 MR#: [id number] Acct: [id number] Name: АНДРЕЙ NICKERSON Rep #:[id number] : 1960 62 From: Nicolas Lawrence MD PCP: Dr. Handy Henderson DO Status:[facility] Location: [facility] HPI - General HPI Narrative АНДРЕЙ NICKERSON, is a 62 M who presents with bilateral LE edema, chronic venous skin changes, no relief with compression. Only reflux is left below knee great saphenous. [facility] Medical History Abdominal pain Arthritis Atherosclerosis of tulalip coronary artery of tulalip heart without angina pectoris Cataracts, bilateral CKD [...] Diabetes Thyroid disorder Hypertension Hyperlipidemia Surgical History (Reviewed 05/07/23 @ 15:40 by Gabi Lieberman CAREER TRANSITION SPECIALIST, CAREER TRANSITION SPECIALIST-C) Arteriovenous fistula for hemodialysis in place, primary [...] & Plan Assessment/Plan (1) Venous insufficiency: 06/21/23 0892 <Electronically signed by Nicolas Lawrence MD> Cosigner Signature (if applicable): CC: Dr. Nicolas Lawrence MD; Dr. Handy Henderson, DO~ Signed [facility] Work Phone: 1(877) 883-245403-18-2024 Miscellaneous Notes* Telephone Encounter - Portia Sierra LPN - 06/18/2023 8:49 AM EDT [place] [facility] [place]. * Telephone Encounter - Portia Sierra LPN - 06/15/2023 3:25 PM EDT Had to request last sleep study . Awaiting this and then will fax all information back to them. * Telephone Encounter - Maya Holugin APRN.CNP - 06/15/2023 10:54 AM EDT Order is printed and signed, please fax. Thank you, Maya Holguin APRN.MENDING CARRIER * Telephone Encounter - Edna Ford LPN - 06/15/2023 8:48 AM EDT Pt called to let you know he is in need of C-pap supplies and [place] [facility] [place] They will also be faxing a form to you per pt. Pt thinks they may have sent this please watch for it. Edna Ford LPN documented in this encounterBluffton Hospital03-10-2024 Miscellaneous Notes* Telephone Encounter - Mary Castanon MA - 06/10/2023 2:53 PM EDT Patient given results and verbalized understanding of instructions given. Mary Castanon MA * Telephone Encounter - Mary Castanon MA - 06/10/2023 2:44 PM EDT Patient states he went to [facility]yl to sweet pickle maker his doxycycline rx'd yesterday and it was not there, note states that doxycycline would be called in but no rx sent. Mary Castanon MA Please call patient and let him know doxycycline has now been sent into [facility]. Per provider note, wasprescribing doxycycline for sinusitis, but does not appear that it was sent to pharmacy. Naveed Pizarro PA-C documented in this encounterBluffton Hospital03-09-2024 History of Present illness Narrative* Kerline Laureano APRN.MENDING CARRIER - 06/09/2023 1:57 PM EST Subjective The history is provided by the patient. No foreign language stenographer was used. HPI Андрей Nickerson is a [...] kidney disease) stage 3, GFR 30-59 ml/min ([facility]) [facility] Coronary artery disease 2006 s/p PCI. 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 Leon [facility] Heart attack ([facility]) Hyperlipidemia Hypertension Lacunar stroke ([facility]) Macular edema [facility] MVP (mitral valve prolapse) Pancreatitis Proliferative diabetic retinopathy(362.02) [facility] Snoring Stroke ([facility]) 2017 Tobacco abuse I have confirmed and edited as necessary, the [facility] Review of Systems Constitutional: Negative for chills, [...] Kerline Laureano APRN.MARIA M documented in this encounterBluffton Hospital02-29-2024 History of Present illness Narrative* Triny [...] (H) 4.3 - 5.6 % Final Comment: [place] [employer] guidelines indicate that patients with HgbA1c in the range 5.7-6.4% are at increased risk for development of diabetes, and intervention by lifestyle modification may be beneficial. HgbA1c greater or equal to 6.5% is considered diagnostic of diabetes. PCP: Handy Henderson DO PAST MEDICAL HISTORY Diagnosis Date Arrhythmia CKD (chronic kidney disease) stage 3, GFR 30-59 ml/min ([facility]) [facility] Coronary artery disease 2006 s/p PCI. 3 stents total Diabetes type 1, uncontrolled 1971 nephropathy, retinopathy, dx age 10, Dr. Leon [facility] Heart attack ([facility]) Hyperlipidemia Hypertension Lacunar stroke ([facility]) Macular edema [facility] MVP (mitral valve prolapse) Pancreatitis Proliferative diabetic retinopathy(362.02) [facility] Snoring Stroke ([facility]) 2017 Tobacco abuse Current Outpatient Medications Medication [...] 1 tablet by mouth once daily. Gum Vmnhhz-Ofcdkr-HCrk-Alcohol (MASTISOL ADHESIVE) dpet 1 application as directed. blood sugar diagnostic (ONETOUCH ULTRA TEST) test strip Checking blood sugars 3- 4 times daily Insulin [place], Disposable, (BD ULTRAFINE III MINI PEN) 31 gauge x 3/16 use as directed up to four times daily, E11.9 Blood-Glucose Sensor (DEXCOM G6 SENSOR) darleen Change Sensor every 14 days Patient reading blood sugar 12 times daily Blood-Glucose Meter,Continuous (DEXCOM G4 OUTDOOR ADVENTURE INSTRUCTOR-SHARE KIT) misc One [place] device, patient checks blood sugars 12 times daily Blood-Glucose Transmitter (DEXCOM G6 TRANSMITTER) darleen 1 Each as directed. Blood-Glucose Meter,Continuous (DEXCOM G6 OUTDOOR ADVENTURE INSTRUCTOR) misc 1 Each as directed. insulin detemir [...] a post op shoe. documented in this encounterBluffton Hospital02-27-2024 Miscellaneous Notes* Telephone Encounter - Brigitte [...] Thank you. Brigitte Beaulieu. documented in this encounterBluffton Hospital02-22-2024 Miscellaneous Notes* Telephone Encounter - Favio [...] would like him to follow up with Nitrate Operator Handy Henderson DO documented in this encounterBluffton Hospital02-21-2024 Miscellaneous Notes* Telephone Encounter - Nieves Sanchez - 05/23/2023 2:37 PM EST New office note printed and placed in JG inbox for signature and date. Nieves Sanchez * Telephone Encounter - Sakina Webb RN - 05/23/2023 11:10 AM EST Was this faxed over to pharmacy? Sakina Webb RN * Telephone Encounter - Sakina Webb RN - 05/14/2023 10:11 AM EST Michelle from [facility] calls and states that she needs the top sheet office note from 04/17/2023 to be signed/initial/dated and faxed back to [phone]. Office note placed in providers mailbox. Sakina Webb RN documented in this encounterBluffton Hospital02-04-2024 History of Present illness Narrative* Triny [...] (H) 4.3 - 5.6 % Final Comment: [place] [employer] guidelines indicate that patients with HgbA1c in the range 5.7-6.4% are at increased risk for development of diabetes, and intervention by lifestyle modification may be beneficial. HgbA1c greater or equal to 6.5% is considered diagnostic of diabetes. PCP: Handy Henderson DO PAST MEDICAL HISTORY Diagnosis Date Arrhythmia CKD (chronic kidney disease) stage 3, GFR 30-59 ml/min ([facility]) [facility] Coronary artery disease 2006 s/p PCI. 3 stents total Diabetes type 1, uncontrolled 1971 nephropathy, retinopathy, dx age 10, Dr. Leon [facility] Heart attack ([facility]) Hyperlipidemia Hypertension Lacunar stroke ([facility]) Macular edema [facility] MVP (mitral valve prolapse) Pancreatitis Proliferative diabetic retinopathy(362.02) [facility] Snoring Stroke ([facility]) 2017 Tobacco abuse Current Outpatient Medications Medication [...] 1 tablet by mouth once daily. Gum Npnnbh-Gsvwmm-SYta-Alcohol (MASTISOL ADHESIVE) dpet 1 application as directed. tamsulosin (FLOMAX) 0.4 mg TAKE 1 CAPSULE BY MOUTH EVERYDAY AT BEDTIME blood sugar diagnostic (ONETOUCH ULTRA TEST) test strip Checking blood sugars 3- 4 times daily Insulin [place], Disposable, (BD ULTRAFINE III MINI PEN) 31 gauge x 3/16 use as directed up to four times daily, E11.9 Blood-Glucose Sensor (DEXCOM G6 SENSOR) darleen Change Sensor every 14 days Patient reading blood sugar 12 times daily Blood-Glucose Meter,Continuous (DEXCOM G4 OUTDOOR ADVENTURE INSTRUCTOR-SHARE KIT) misc One [place] device, patient checks blood sugars 12 times daily Blood-Glucose Transmitter (DEXCOM G6 TRANSMITTER) darleen 1 Each as directed. Blood-Glucose Meter,Continuous (DEXCOM G6 OUTDOOR ADVENTURE INSTRUCTOR) misc 1 Each as directed. insulin detemir [...] - Follow Up, Ulcer documented in this encounterBluffton Hospital02-01-2024 Instructions* Patient Instructions* Triny Palmer - 05/03/2023 2:55 PM EST Apply a small amount of topical antibiotic to right leg wound followed by nonadherent guaze (adaptic) Apply anderson wrap from toes to knee to help reduce swelling Keep legs elevated as much as possible Right 5th toe wounds now appear healed. Continue with wider sneaker to avoid rubbing. documented in this encounterBluffton Hospital01-24-2024 Discharge summary Author Cesar Reyna [facility] April 25, 2023 2:24pm Note Date/Time April 25, 2023 1 1:28am [facility] Medical Records Department [address] [place] [address] Emergency Department Summary 04/25/23 MR#: [id number] Acct: [id number] Name: АНДРЕЙ NICKERSON Rep #:[id number] : 1960 62 From: Cesar Reyna MD [...] Prior similar symptoms: Yes Recent Illness/Hospitalization: No [facility] Medical History Abdominal pain Arthritis Atherosclerosis of tulalip coronary artery of t[place] heart without angina pectoris Cataracts, bilateral CKD [...] venous stasis dermatitis, Venous insufficiency, Atherosclerosis of tulalip coronary artery of t[place] heart without angina pectoris, Kidney transplant recipient [...] Rx Instructions: For use of monitoring BP ([facility]) Dexcom G6 Sensor Device See Rx Instructions .ROUTE .MEDSUPPLY Qty: 9 1RF Rx Instructions: As directed ([facility]) Dexcom G6 Transmitter Device See Rx Instructions [...] problems, contact your Primary Care Provider. Call [facility] ([phone]) or report to the closest Emergency Room. Call 911 if necessary. 04/25/23 4051 <Electronically signed by Cesar Reyna MD> Cosigner Signature (if applicable): CC: Dr. Handy Henderson DO ~ Signed [facility] Work Phone: 1(951) 480-427612-03-2023 History of Present illness Narrative* Triny Palmer [...] 5.4 4.3 - 5.6 % Final Comment: [place] Diabetes [employer] guidelines indicate that patients with HgbA1c in the range 5.7-6.4% are at increased risk for development of diabetes, and intervention by lifestyle modification may be beneficial. HgbA1c greater or equal to 6.5% is considered diagnostic of diabetes. PCP: Handy Henderson DO PAST MEDICAL HISTORY Diagnosis Date Arrhythmia CKD (chronic kidney disease) stage 3, GFR 30-59 ml/min ([facility]) [facility] Coronary artery disease 2006 s/p PCI. 3 stents total Diabetes type 1, uncontrolled 1971 nephropathy, retinopathy, dx age 10, Dr. Carolyn TOBAR [facility] Heart attack ([facility]) Hyperlipidemia Hypertension Lacunar stroke ([facility]) Macular edema [facility] MVP (mitral valve prolapse) Pancreatitis Proliferative diabetic retinopathy(362.02) [facility] Snoring Stroke ([facility]) 2017 Tobacco abuse Current Outpatient Medications Medication [...] MOUTH EVERYDAY AT BEDTIME blood sugar diagnostic (ONEUCH ULTRA TEST) test strip Checking blood sugars 3- 4 times daily Insulin Seldovia, Disposable, (BD ULTRAFINE III MINI PEN) 31 gauge x 3/16 use as directed up to four times daily, E11.9 Blood-Glucose Sensor (DEXCOM G6 SENSOR) darleen Change Sensor every 14 days Patient reading blood sugar 12 times daily Blood-Glucose Meter,Continuous (DEXCOM G4 OUTDOOR ADVENTURE INSTRUCTOR-SHARE KIT) misc One [place]a device, patient checks blood sugars 12 times daily Blood-Glucose Transmitter (DEXCOM G6 TRANSMITTER) darleen 1 Each as directed. Blood-Glucose Meter,Continuous (DEXCOM G6 OUTDOOR ADVENTURE INSTRUCTOR) misc 1 Each as directed. insulin detemir [...] 1 tablet by mouth once daily. Gum Xeusem-Inqjpb-RTod-Alcohol (MASTISOL ADHESIVE) dpet 1 application as directed. (Patient not taking: Reported on 03/01/2023) No current facility-administered medications for this visit. ALLERGIES No Known Allergies PAST SURGICAL HISTORY Procedure Laterality Date AVASTIN (BEVACIZUMAB) 1.25MG INTRAVITREAL INJECTION OS (LEFT EYE) x5 (04/16/2015) Dr. Connelly CANALOPLASTY W/O STENT Right 01/12/2022 Canaloplasty 360 degrees / Trabeculotomy 180 degrees CARDIAC CATH 2005, 2009, 2012 mid / distal LAD stents [...] get his diabetic shoes. documented in this encounterBluffton Hospital11-30-2023 Instructions* Patient Instructions* Triny Palmer - 03/01/2023 2:47 PM EST Will have you apply small amount of jamar to the 5th toe followed by emperatriz ron to right 5th toe Use surgical shoe Apply jamar daily Follow-up in 3 weeks If you have any questions or concerns, call the office at [phone] and ask to speak with nurse for podiatry Or you can call spencer at [phone] documented in this encounterBluffton Hospital11-13-2023 Miscellaneous Notes* Telephone Encounter - Portia Sierra LPN - 02/12/2023 4:44 PM EST Refaxed office note to DDM as requested. * Telephone Encounter - Maya Holguin APRN.CNP - 02/12/2023 11:35 AM EST Updated by note from 11/08/22 to include pt would benefit from wearing diabetic shoes. Please refax new office note. Thank you, Maya Holguin APRN.MARIA M * Telephone Encounter - Nieves Sanchez - [...] being too slick of a sole. Maya Hogluin APRN.MARIA M * Telephone Encounter - Diana Uriarte LPN - 02/09/2023 1:19 PM EST Michelle from [facility] calling stating they received form and ov notes back for pt's diabetic shoes. [facility] ov notes did not mention that pt would benefit from wearing diabetic shoes. Office notes were form appointment with Maya Holguin. Michelle states Dr Henderson needs to hand write on ov notes (appointment with Maya) that pt would benefit from wearing diabetic shoes needs to sign and date this. States has to be done by PCP. [facility] she only has about 1.5 weeks to get these shoes ordered for pt so charges will be on this calendar year. Please fax ov notes to [phone]. Diana Uriarte LPN documented in this encounterBluffton Hospital10-17-2023 Instructions* Patient Instructions* Triny Palmer - [...] (or decreased sensation in your feet) a refrigerator car icer should always cut your toenails. Be Careful [...] Go to your health care provider or refrigerator car icer to treat these conditions. documented in this encounterBluffton Hospital10-17-2023 History of Present illness Narrative* Triny [...] 5.4 4.3 - 5.6 % Final Comment: [place] [employer] guidelines indicate that patients with HgbA1c in the range 5.7-6.4% are at increased risk for development of diabetes, and intervention by lifestyle modification may be beneficial. HgbA1c greater or equal to 6.5% is considered diagnostic of diabetes. PCP: Handy Henderson, DO PAST MEDICAL HISTORY Diagnosis Date Arrhythmia CKD (chronic kidney disease) stage 3, GFR 30-59 ml/min ([facility]) [facility] Coronary artery disease 2006 s/p PCI. 3 stents total Diabetes type 1, uncontrolled 1971 nephropathy, retinopathy, dx age 10, Dr. Carolyn TOBAR [facility] Heart attack ([facility]) Hyperlipidemia Hypertension Lacunar stroke ([facility]) Macular edema [facility] MVP (mitral valve prolapse) Pancreatitis Proliferative diabetic retinopathy(362.02) [facility] Snoring Stroke ([facility]) 2017 Tobacco abuse Current Outpatient Medications Medication [...] MOUTH EVERYDAY AT BEDTIME blood sugar diagnostic (GlassesGroupGlobalTOUCH ULTRA TEST) test strip Checking blood sugars 3- 4 times daily Insulin Seldovia, Disposable, (BD ULTRAFINE III MINI PEN) 31 gauge x 3/16 use as directed up to four times daily, E11.9 Blood-Glucose Sensor (Exclusive NetworksCOM G6 SENSOR) darleen Change Sensor every 14 days Patient reading blood sugar 12 times daily Blood-Glucose Meter,Continuous (DEXCOM G4 OUTDOOR ADVENTURE INSTRUCTOR-SHARE KIT) misc One Mesa device, patient checks blood sugars 12 times daily Blood-Glucose Transmitter (DEXCOM G6 TRANSMITTER) darleen 1 Each as directed. Blood-Glucose Meter,Continuous (DEXCOM G6 OUTDOOR ADVENTURE INSTRUCTOR) misc 1 Each as directed. Lancets (MICROLET [...] (Patient not taking: Reported on 01/16/2023) Gum Ncixvl-Bksbqk-WNay-Alcohol (MASTISOL ADHESIVE) dpet 1 application as directed. [...] DATA Karime Manriquez RN documented in this encounterBluffton Hospital10-06-2023 Miscellaneous Notes* Telephone Encounter - Mariam Singleton LPN - 01/05/2023 4:05 PM EDT Order faxed up to melyprakash gorman. Mariam Singleton LPN * Telephone Encounter [...] would like to have message sent in fire prevention officer can send first. Saray Quiñones LPN documented in this encounterBluffton Hospital09-25-2023 History of Present illness Narrative* Triny [...] 5.4 4.3 - 5.6 % Final Comment: [place] Diabetes [employer] guidelines indicate that patients with HgbA1c in the range 5.7-6.4% are at increased risk for development of diabetes, and intervention by lifestyle modification may be beneficial. HgbA1c greater or equal to 6.5% is considered diagnostic of diabetes. PCP: Handy Henderson DO PAST MEDICAL HISTORY Diagnosis Date Arrhythmia CKD (chronic kidney disease) stage 3, GFR 30-59 ml/min ([facility]) [facility] Coronary artery disease 2005 s/p PCI. 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 Leon [facility] Heart attack ([facility]) Hyperlipidemia Hypertension Lacunar stroke ([facility]) Macular edema [facility] MVP (mitral valve prolapse) Pancreatitis Proliferative diabetic retinopathy(362.02) [facility] Snoring Stroke ([facility]) 2017 Tobacco abuse Current Outpatient Medications Medication [...] 1 tablet by mouth once daily. Gum Svhdqt-Opfqms-VOlf-Alcohol (MASTISOL ADHESIVE) dpet 1 application as directed. tamsulosin (FLOMAX) 0.4 mg TAKE 1 CAPSULE BY MOUTH EVERYDAY AT BEDTIME blood sugar diagnostic (ONETOUCH ULTRA TEST) test strip Checking blood sugars 3- 4 times daily Insulin Seld[place]ia, Disposable, (BD ULTRAFINE III MINI PEN) 31 gauge x 3/16 use as directed up to four times daily, E11.9 Blood-Glucose Sensor (DEXCOM G6 SENSOR) darleen Change Sensor every 14 days Patient reading blood sugar 12 times daily Blood-Glucose Meter,Continuous (DEXCOM G4 OUTDOOR ADVENTURE INSTRUCTOR-SHARE KIT) misc One [place]a device, patient checks blood sugars 12 times daily Blood-Glucose Transmitter (DEXCOM G6 TRANSMITTER) darleen 1 Each as directed. Blood-Glucose Meter,Continuous (DEXCOM G6 OUTDOOR ADVENTURE INSTRUCTOR) misc 1 Each as directed. insulin detemir [...] Ulcer Mariam Singleton LPN documented in this encounterBluffton Hospital09-25-2023 Instructions* Patient Instructions* Triny Palmer - [...] antibiotic. Repeat xrays today documented in this encounterBluffton Hospital2023 History of Present illness Narrative* Mariam Singleton LPN - 11/28/2022 3:26 PM EDT Per Андрей Kauffman was provided with Ppst op shoe, size L, and instructed/educated in its application, wear, and care. All questions were answered, and patient was able to demonstrate competence with the necessary skills to utilize the above equipment. Per Андрей Kauffman was provided with 4 anderson bandage, size [...] kidney disease) stage 3, GFR 30-59 ml/min ([facility]) [facility] Coronary artery disease 2006 s/p PCI. 3 stents total Diabetes type 1, uncontrolled 1971 nephropathy, retinopathy, dx age 10, Dr[facility] Leon [facility] Heart attack ([facility]) Hyperlipidemia Hypertension Lacunar stroke ([facility]) Macular edema [facility] MVP (mitral valve prolapse) Pancreatitis Proliferative diabetic retinopathy(362.02) [facility] Snoring Stroke ([facility]) 2017 Tobacco abuse Current Outpatient Medications Medication [...] MOUTH EVERYDAY AT BEDTIME blood sugar diagnostic (MyEnergyUCH ULTRA TEST) test strip Checking blood sugars 3- 4 times daily Insulin Seldovia, Disposable, (BD ULTRAFINE III MINI PEN) 31 gauge x 3/16 use as directed up to four times daily, E11.9 Blood-Glucose Sensor (DEXCOM G6 SENSOR) darleen Change Sensor every 14 days Patient reading blood sugar 12 times daily Blood-Glucose Meter,Continuous (DEXCOM G4 OUTDOOR ADVENTURE INSTRUCTOR-SHARE KIT) misc One [place] device, patient checks blood sugars 12 times daily Blood-Glucose Transmitter (DEXCOM G6 TRANSMITTER) darleen 1 Each as directed. Blood-Glucose Meter,Continuous (DEXCOM G6 OUTDOOR ADVENTURE INSTRUCTOR) misc 1 Each as directed. insulin detemir [...] (Patient not taking: Reported on 11/08/2022) Gum Vlftoy-Bgwpgi-YImg-Alcohol (MASTISOL ADHESIVE) dpet 1 application as directed. [...] diabetes mellitus due to underlying condition (HCC) PLAN: 1. History and physical examination performed. [...] weeks Triny Palmer DPM Podiatry [address] [facility] [address] Dept: [phone] Dept * Delmy Beth, NATI - 11/28/2022 [...] of th e ulcer. documented in this encounterBluffton Hospital2023 Instructions* Patient Instructions* Triny Palmer - 11/28/2022 3:07 PM EDT Cleanse wound daily with saline Apply a small amount of santyl to right 5th toe daily Secure with guaze followed by anderson wrap Wear surgical shoe at all times to avoid rubbing documented in this encounterBluffton Hospital08-09-2023 History of Present illness Narrative* Maya Holguin APRN.MARIA M - 11/08/2022 11:20 AM EDT Chief Complaint [...] kidney disease) stage 3, GFR 30-59 ml/min ([facility]) [facility] Coronary artery disease 2005 s/p PCI. 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 Leon [facility] Heart attack ([facility]) Hyperlipidemia Hypertension Lacunar stroke ([facility]) Macular edema [facility] MVP (mitral valve prolapse) Pancreatitis Proliferative diabetic retinopathy(362.02) [facility] Snoring Stroke ([facility]) 2017 Tobacco abuse Previous Surgical History PAST [...] 1 tablet by mouth once daily. Gum Gwefed-Mnsggz-YFah-Alcohol (MASTISOL ADHESIVE) dpet 1 application as directed. tamsulosin (FLOMAX) 0.4 mg TAKE 1 CAPSULE BY MOUTH EVERYDAY AT BEDTIME blood sugar diagnostic (GlassesGroupGlobalTOUCH ULTRA TEST) test strip Checking blood sugars 3- 4 times daily Insulin Seldovia, Disposable, (BD ULTRAFINE III MINI PEN) 31 gauge x 3/16 use as directed up to four times daily, E11.9 Blood-Glucose Sensor (DEXCOM G6 SENSOR) darleen Change Sensor every 14 days Patient reading blood sugar 12 times daily Blood-Glucose Meter,Continuous (DEXCOM G4 OUTDOOR ADVENTURE INSTRUCTOR-SHARE KIT) misc One [place]a device, patient checks blood sugars 12 times daily Blood-Glucose Transmitter (DEXCOM G6 TRANSMITTER) darleen 1 Each as directed. Blood-Glucose Meter,Continuous (DEXCOM G6 OUTDOOR ADVENTURE INSTRUCTOR) misc 1 Each as directed. insulin detemir [...] Patient agreeable to treatment plan. Maya Salas APRN.MENDING CARRIER [address] [place] [address] documented in this encounterBluffton Hospital08-04-2023 Instructions* Patient Instructions* Kerline Laureano APRN.CNP - 11/03/2022 2:49 PM EDT Wound Care - Keep the area clean and dry -Clean with soap and water . Apply mupirocin ointment 2 - 3 times a day. -Tylenol or Ibuprofen for discomfort Recheck in 2 days Go to ER if develops red streaking up foot documented in this encounterBluffton Hospital08-04-2023 History of Present illness Narrative* Kerline Laureano APRN.MARIA M - 11/03/2022 2:48 PM EDT Images from the original note were not included. Subjective The history is provided by the patient. No foreign language stenographer was used. HPI Андрей Nickerson is a [...] kidney disease) stage 3, GFR 30-59 ml/min ([facility]) [facility] Coronary artery disease 2006 s/p PCI. 3 stents total Diabetes type 1, uncontrolled 1971 nephropathy, retinopathy, dx age 10, Dr[facility] Leon [facility] Heart attack ([facility]) Hyperlipidemia Hypertension Lacunar stroke ([facility]) Macular edema [facility] MVP (mitral valve prolapse) Pancreatitis Proliferative diabetic retinopathy(362.02) [facility] Snoring Stroke ([facility]) 2017 Tobacco abuse I have confirmed and edited as necessary, the [facility] Review of Systems Constitutional: Negative for chills [...] indetail warranting prompt ER evaluation. Kerline Laureano APRN.MENDING CARRIER documented in this encounterBluffton Hospital07-19-2023 History of Present illness Narrative* Handy [...] Type 1 diabetes, insulin pump use. Seeing [employer] regularly. Hemoglobin A1C Date Value Ref Range Status 04/22/2022 5.4 4.3 - 5.6 % Final Comment: [place] Diabetes [employer] guidelines indicate that patients with HgbA1c in the range 5.7-6.4% are at increased risk for development of diabetes, and intervention by lifestyle modification may be beneficial. HgbA1c greater or equal to 6.5% is considered diagnostic of diabetes. 03/02/2022 6.2 (H) 4.3 - 5.6 % Final Comment: [place] [employer] guidelines indicate that patients with HgbA1c in the range 5.7-6.4% are at increased risk for development of diabetes, and intervention by lifestyle modification may be beneficial. HgbA1c greater or equal to 6.5% is considered diagnostic of diabetes. 02/15/2022 6.6 (H) 4.3 - 5.6 % Final Comment: [place] [employer] guidelines indicate that patients with HgbA1c in the range 5.7-6.4% are at increased risk for development of diabetes, and intervention by lifestyle modification may be beneficial. HgbA1c greater or equal to 6.5% is considered diagnostic of diabetes. 02/01/2022 6.7 (H) 4.3 - 5.6 % Final Comment: [place] [employer] guidelines indicate that patients with HgbA1c in the range 5.7-6.4% are at increased risk for development of diabetes, and intervention by lifestyle modification may be beneficial. HgbA1c greater or equal to 6.5% is considered diagnostic of diabetes. 01/17/2022 6.5 (H) 4.3 - 5.6 % Final Comment: [place] [employer] guidelines indicate that patients with HgbA1c in the range 5.7-6.4% are at increased risk for development of diabetes, and intervention by lifestyle modification may be beneficial. HgbA1c greater or equal to 6.5% is considered diagnostic of diabetes. PAST MEDICAL HISTORY Diagnosis Date Arrhythmia CKD (chronic kidney disease) stage 3, GFR 30-59 ml/min ([facility]) [facility] Coronary artery disease 2006 s/p PCI. 3 stents total Diabetes type 1, uncontrolled 1971 nephropathy, retinopathy, dx age 10, Dr[facility] Leon [facility] Heart attack (HCC) Hyperlipidemia Hypertension Lacunar stroke ([facility]) Macular edema [facility] MVP (mitral valve prolapse) Pancreatitis Proliferative diabetic retinopathy(362.02) [facility] Snoring Stroke ([facility]) 2017 Tobacco abuse PAST SURGICAL HISTORY Procedure [...] blood sugars 3- 4 times daily Insulin Seldovia, Disposable, (BD ULTRAFINE III MINI PEN) 31 [...] once daily. Rinse mouth after use. Gum Lftydw-Ztqmhw-EMzm-Alcohol (MASTISOL ADHESIVE) dpet 1 application as directed. Blood-Glucose Meter,Continuous (DEXCOM G4 OUTDOOR ADVENTURE INSTRUCTOR-SHARE KIT) misc One [place]a device, patient checks blood sugars 12 times daily Blood-Glucose Transmitter (DEXCOM G6 TRANSMITTER) darleen 1 Each as directed. Blood-Glucose Meter,Continuous (DEXCOM G6 OUTDOOR ADVENTURE INSTRUCTOR) misc 1 Each as directed. insulin detemir [...] ICD9: V42.0, ICD10: Z94.0 - f/u with insurance solicitor/team, stable symptoms, having labs obtained. 5. Essential [...] ICD9: 250.51, 362.04, ICD10: E10.3293 F/u with chicken and fish cleaner, no new changes in symptoms 7. Bilateral leg edema - ICD9: 782.3, ICD10: R60.0 Resolved after transplant 8. Obesity, Class II, BMI 35-39.9 - ICD9: 278.00, ICD10: E66.9 Stable - Behavioral intervention, - PSMF, - Eat well program, and - Continue current medications Handy Henderson DO Return if no improvement. Follow up with Handy Henderson DO. To ER if develops chest pain, shortness of breath Discussed risks, benefits, alternatives, and potential side effects of medications. Patient/Guardian expressed understanding and agreed with the plan. See patient instructions. Handy Henderson DO [address] [place] [address] documented in this encounterBluffton Hospital07-14-2023 Miscellaneous Notes* Telephone Encounter - Brigitte [...] and advise. Karime Vicente documented in this encounterBluffton Hospital07-10-2023 History of Present illness Narrative* George [...] options. George Pacheco MD documented in this encounterBluffton Hospital07-10-2023 Instructions* Patient Instructions* George Pacheco MD [...] any questions please contact our office at [phone]. After office hours or on the weekend, please call Dr. Pacheco on his cell phone at [phone]. documented in this encounterBluffton Hospital07-06-2023 History of Present illness Narrative* Hanane Ramesh RN - 10/05/2022 3:00 PM EDT Images from the original note were not included. PREP SHEET FOR NEPHROLOGY CLINIC Patient Name: Андрей Nickerson Cloth Printer: Андрей Reyes Date of Kidney Transplant: 03/27/2021 1y 6m Primary Disease: Diabetes Mellitus - Type I Transplant Tool Shaper Set Up Operator: Sharon Gómez Primary Care physician: Handy Henderson Last Transplant Appointment: 03/16/2022 MONITORING: MONITORING COMMENTS DGF Yes HLA Match: A1 B1 DR0 Living Donor? No [place] Recipient? No [place] ID Follow-up Testing 04/24/2021 to 05/22/2021 Date [...] 04/13/2021 Approved 04/20/2021 for [employer] Authorization number: [id number] Patient started treatment? 04/26/2021(05/02) If contacted by [...] strips, insulin aspart, omeprazole, and prednisoLONE acetate [facility] Change in lab frequency / new order today: no Labs needed in clinic today? no COORDINATOR NOTES: * Migel Gómez MD - 10/05/2022 3:00 PM EDT Images from the original note were not included. Today we were happy to see Андрей Nickerson at [facility] Post Transplant Office for evaluation [...] levels: No results found for: CYCLOSPORIN, CYCLOSPORIN2, [id number], CYCLORAND Lab Results Component Value Date SIROLIMUS [...] me. Sincerely Yours, Migel Gómez MD, ANGELIC Transmissions Systems Operator of Clinical Medicine [facility] * Liset Yeung [...] by mouth daily. PREFERRED LAB AND PHARMACY: [facility] [place] - - [place] [facility] [place] [address] - [address] [facility] [address] [facility] [address] [facility]/pharmacy #[id number] [address] [address] [facility] [address] [facility] [place] [address] [facility] [place] [id number] - [facility] AT Portal to Registered [facility] Sites [facility] [place] [address] [facility] [place] [address] - [address] [facility] [address] [facility] [place] [address] ROS and SCREEN: Chest Pain: negative Cough: [...] plantar fasciitis. Doing PT. documented in [facility] encounterUpper [facility]23 Instructions* Patient Instructions* Liset Yeung RN - 10/05/2022 3:00 PM EDT - Return to clinic in 6 months. - Continue checking labs monthly. - No medication changes today. documented in this encounterU [facility] History of Present illness Narrative* Jignesh Oliver MD - 09/18/2022 1:13 PM EDT Jignesh Oliver MD Department of Orthopaedics Orthopaedics [address] [place] [address] Dept: [phone] Dept October 17, 2022 CHIEF COMPLAINT: Established Patient, Follow Up, and Fracture of the Left Wrist [facility] ROOMING INTAKE FLOWSHEET DATA Patient presents with: [...] of the base of the fourth metacarpal. Consulting Hr Professional: KYLER Transcribe Date/Time: Sep 21 2022 8:41A Dictated [...] kidney disease) stage 3, GFR 30-59 ml/min ([facility]) [facility] Coronary artery disease 2005 s/p PCI. 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 Leon [facility] Heart attack ([facility]) Hyperlipidemia Hypertension Lacunar stroke ([facility]) Macular edema [facility] MVP (mitral valve prolapse) Pancreatitis Proliferative diabetic retinopathy(362.02) [facility] Snoring Stroke (HCC) 2017 Tobacco abuse Past Surgical History: PAST [...] peritoneal dialysis catheter placement with omentopexy- Shamir sTai MD PAST SURGICAL HISTORY OF 03/2020 PD [...] blood sugars 3- 4 times daily Insulin Seldovia, Disposable, (BD ULTRAFINE III MINI PEN) 31 gauge x 3/16 use as directed up to four times daily, E11.9 Blood-Glucose Sensor (DEXCOM G6 SENSOR) darleen Change Sensor every 14 days Patient reading blood sugar 12 times daily Blood-Glucose Meter,Continuous (DEXCOM G4 OUTDOOR ADVENTURE INSTRUCTOR-SHARE KIT) misc One [place] device, patient checks blood sugars 12 times daily Blood-Glucose Transmitter (DEXCOM G6 TRANSMITTER) darleen 1 Each as directed. Blood-Glucose Meter,Continuous (DEXCOM G6 OUTDOOR ADVENTURE INSTRUCTOR) misc 1 Each as directed. Lancets (MICROLET [...] capsule by mouth three times daily. Gum Zsifdf-Vjxqvc-PAhc-Alcohol (MASTISOL ADHESIVE) dpet 1 application as directed. [...] physician via US mail. Tara Carballo [address] [facility] [address] Handy Henderson DO [address] [facility] [address] Jignesh Oliver MD documented in this encounterBluffton Hospital04-24-2023 History of Present illness Narrative* Munir Carmona RT(Yelitza) - 07/24/2022 3:40 PM EDT Radiology Service Progress Note PATIENT NAME: Андерй Nickerson DATE OF SERVICE: July 24, 2022 [...] 24, 2022 3:43 PM documented in this encounterBluffton Hospital04-24-2023 Instructions* Patient Instructions* Rosi Leger - 07/24/2022 3:05 PM EDT Monitor skin tears on both arms for s/sx of infection and monitor blood sugars for being increased also as a sign. Continue to complete your dressings twice daily and apply the antibiotic ointment documented in this encounterBluffton Hospital04-24-2023 History of Present illness Narrative* Tara Carballo APRN.MENDING CARRIER - 07/24/2022 2:42 PM EDT Chief Complaint Patient presents with: Follow Up: Fell on 07/19- was told by bryan that he has broken bones in left hand HPI Андрей Nickerson is a 61 year old male who presents here today for Above Complaints.. Fell 07/19 at [facility] going inside to order his grandkids some dinner and tripped on the curb. [...] kidney disease) stage 3, GFR 30-59 ml/min (FORM[facility]LY [facility]) [facility] Coronary artery disease 2006 s/p PCI. 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 Leon [facility] Heart attack ([facility]) Hyperlipidemia Hypertension Lacunar stroke ([facility]) Macular edema [facility] MVP (mitral valve prolapse) Pancreatitis Proliferative diabetic retinopathy(362.02) [facility] Snoring Stroke ([facility]) 2017 Tobacco abuse Previous Surgical History PAST [...] blood sugars 3- 4 times daily Insulin [place], Disposable, (BD ULTRAFINE III MINI PEN) 31 gauge x 3/16 use as directed up to four times daily, E11.9 Blood-Glucose Sensor (DEXCOM G6 SENSOR) darleen Change Sensor every 14 days Patient reading blood sugar 12 times daily Blood-Glucose Meter,Continuous (DEXCOM G4 OUTDOOR ADVENTURE INSTRUCTOR-SHARE KIT) misc One [place]a device, patient checks blood sugars 12 times daily Blood-Glucose Transmitter (DEXCOM G6 TRANSMITTER) darleen 1 Each as directed. Blood-Glucose Meter,Continuous (DEXCOM G6 OUTDOOR ADVENTURE INSTRUCTOR) misc 1 Each as directed. insulin detemir [...] (Patient not taking: Reported on 07/24/2022) Gum Wizcaq-Bvzrxv-HSyj-Alcohol (MASTISOL ADHESIVE) dpet 1 application as directed. [...] Tara Carballo APRN.MARIA M documented in this encounterBluffton Hospital04-10-2023 Miscellaneous Notes* Telephone Encounter - Magdalena [...] you. Magdalena Cabezas LPN documented in this encounterBluffton Hospital04-07-2023 Miscellaneous Notes* Telephone Encounter - Saima [...] advise. Saima Crowe LPN documented in this encounterBluffton Hospital04-03-2023 Miscellaneous Notes* Telephone Encounter - Julee [...] 10/17/22 Julee Gardner MA documented in this [facility]03-20-2023 Instructions* Patient Instructions* George Pacheco MD - 06/19/2022 2:37 PM EDT Current Ophthalmic Meds timolol maleate (TIMOPTIC) 0.5 % ophthalmic solution Use 1 Drop in both eyes every morning. (NEW TODAY) Continue: Systane Complete solution instill 1 drop 3 times daily Both Eyes. If you have any questions please contact our office at [phone]. After office hours or on the weekend, please call Dr. Pacheco on his cell phone at [phone].' documented in this encounterBluffton Hospital03-20-2023 History of Present illness Narrative* George [...] diagnosis, and treatment options. documented in this encounterBluffton Hospital03-13-2023 History of Present illness Narrative* Triny [...] Care Mariam Singleton LPN documented in this encounterBluffton Hospital03-13-2023 Instructions* Patient Instructions* Triny Palmer - [...] (or decreased sensation in your feet) a refrigerator car icer should always cut your toenails. Be Careful [...] Go to your health care provider or refrigerator car icer to treat these conditions. documented in this encounterBluffton Hospital03-10-2023 Miscellaneous Notes* Telephone Encounter - Aleyda Montgomery [facility] - 06/09/2022 11:56 AM EST Patient has [...] patient. Aleyda Montgomery Pss documented in this encounterBluffton Hospital02-09-2023 Miscellaneous Notes* Telephone Encounter - Nieves Sanchez - 05/11/2022 11:00 AM EST Pt informed, verbalized understanding Nieves Sanchez * Telephone Encounter - Maya Holguin APRN.MARIA M - 05/11/2022 10:32 AM EST The following [...] stop. Saima Crowe LPN documented in this encounterBluffton Hospital02-08-2023 History of Present illness Narrative* Handy Henderson, DO - 05/10/2022 3:06 PM EST CC: Андрей Nickerson is a 61 year old male who presents to the office for follow up HPI: HTN, seems to be stable, taking medication as prescribed. DM1, managed by chicken and fish cleaner, has CGM and pump Hx of renal [...] 5.4 4.3 - 5.6 % Final Comment: [place] [employer] guidelines indicate that patients with HgbA1c in the range 5.7-6.4% are at increased risk for development of diabetes, and intervention by lifestyle modification may be beneficial. HgbA1c greater or equal to 6.5% is considered diagnostic of diabetes. 03/02/2022 6.2 (H) 4.3 - 5.6 % Final Comment: [place] [employer] guidelines indicate that patients with HgbA1c in the range 5.7-6.4% are at increased risk for development of diabetes, and intervention by lifestyle modification may be beneficial. HgbA1c greater or equal to 6.5% is considered diagnostic of diabetes. 02/15/2022 6.6 (H) 4.3 - 5.6 % Final Comment: [place] [employer] guidelines indicate that patients with HgbA1c in the range 5.7-6.4% are at increased risk for development of diabetes, and intervention by lifestyle modification may be beneficial. HgbA1c greater or equal to 6.5% is considered diagnostic of diabetes. 02/01/2022 6.7 (H) 4.3 - 5.6 % Final Comment: [place] [employer] guidelines indicate that patients with HgbA1c in the range 5.7-6.4% are at increased risk for development of diabetes, and intervention by lifestyle modification may be beneficial. HgbA1c greater or equal to 6.5% is considered diagnostic of diabetes. 01/17/2022 6.5 (H) 4.3 - 5.6 % Final Comment: [place] [employer] guidelines indicate that patients with [...] kidney disease) stage 3, GFR 30-59 ml/min ([facility]) [facility] Coronary artery disease 2005 s/p PCI. 3 stents total Diabetes type 1, uncontrolled 1971 nephropathy, retinopathy, dx age 10, Dr. Leon [facility] Heart attack (HCC) Hyperlipidemia Hypertension Lacunar stroke ([facility]) Macular edema [facility] MVP (mitral valve prolapse) Pancreatitis Proliferative diabetic retinopathy(362.02) [facility] Snoring Stroke ([facility]) 2017 Tobacco abuse PAST SURGICAL HISTORY Procedure [...] MOUTH EVERYDAY AT BEDTIME blood sugar diagnostic (Tequila Mobile ULTRA TEST) test strip Checking blood sugars [...] once daily. Rinse mouth after use. Gum Rpieik-Rvuwcw-ZHpl-Alcohol (MASTISOL ADHESIVE) dpet 1 application as directed. (Patient not taking: Reported on 03/07/2022) Insulin [place], Disposable, (BD ULTRAFINE III MINI PEN) 31 gauge x 3/16 use as directed up to four times daily, E11.9 Blood-Glucose Meter,Continuous (DEXCOM G4 OUTDOOR ADVENTURE INSTRUCTOR-SHARE KIT) misc One [place] device, patient checks blood sugars 12 times daily Blood-Glucose Transmitter (DEXCOM G6 TRANSMITTER) darleen 1 Each as directed. Blood-Glucose Meter,Continuous (DEXCOM G6 OUTDOOR ADVENTURE INSTRUCTOR) misc 1 Each as directed. insulin detemir [...] ICD9: V42.0, ICD10: Z94.0 - f/u with Tool Shaper Set Up Operator/renal transplant team 4. 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 Hypercholesteremia [...] plan. See patient instructions. Handy Henderson DO [address] [place] [address] documented in this encounterBluffton Hospital12-06-2022 History of Present illness Narrative* Triny [...] Objective: Patient presents to clinic ambulating in [facility] Vasc: DP and PT pulses [...] Up Mariam Singleton LPN documented in this encounterBluffton Hospital12-06-2022 Instructions* Patient Instructions* Triny Palmer - [...] (or decreased sensation in your feet) a refrigerator car icer should always cut your toenails. Be Careful [...] Go to your health care provider or refrigerator car icer to treat these conditions. documented in this encounterBluffton Hospital11-08-2022 History of Present illness Narrative* Handy [...] taking medication as prescribed. DM1, managed by chicken and fish cleaner, has CGM and pump PAST MEDICAL HISTORY Diagnosis Date Arrhythmia CKD (chronic kidney disease) stage 3, GFR 30-59 ml/min ([facility]) [facility] Coronary artery disease 2005 s/p PCI. 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 Leon [facility] Heart attack ([facility]) Hyperlipidemia Hypertension Lacunar stroke ([facility]) Macular edema [facility] MVP (mitral valve prolapse) Pancreatitis Proliferative diabetic retinopathy(362.02) [facility] Snoring Stroke ([facility]) 2017 Tobacco abuse PAST SURGICAL HISTORY Procedure [...] (Patient not taking: Reported on 01/13/2022) Gum Vhafeh-Mogxjh-PTux-Alcohol (MASTISOL ADHESIVE) dpet 1 application as directed. tamsulosin (FLOMAX) 0.4 mg TAKE 1 CAPSULE BY MOUTH EVERYDAY AT BEDTIME blood sugar diagnostic (ONETOUCH ULTRA TEST) test strip Checking blood sugars 3- 4 times daily Insulin [place], Disposable, (BD ULTRAFINE III MINI PEN) 31 [...] 12 times daily Blood-Glucose Meter,Continuous (DEXCOM G4 OUTDOOR ADVENTURE INSTRUCTOR-SHARE KIT) misc One [place] device, patient checks blood sugars 12 times daily Blood-Glucose Transmitter (DEXCOM G6 TRANSMITTER) darleen 1 Each as directed. Blood-Glucose Meter,Continuous (DEXCOM G6 OUTDOOR ADVENTURE INSTRUCTOR) misc 1 Each as directed. insulin detemir [...] EMERGENCY DEPARTMENT visit and IVF, f/u with Tool Shaper Set Up Operator and monitoring of electrolytes and renal function, [...] 250.51, 362.04, ICD10: E10.3293 - f/u with Timber Cruiser. 6. Diarrhea, unspecified type - ICD9: 787.91, ICD10: R19.7 - resolved. Handy Henderson DO Return if no improvement. Follow up with Handy Henderson DO. To ER if develops chest pain, shortness of breath Discussed risks, benefits, alternatives, and potential side effects of medications. Patient/Guardian expressed understanding and agreed with the plan. See patient instructions. Handy Henderson DO [address] [place] [address] documented in this encounterBluffton Hospital11-02-2022 Instructions* Patient Instructions* George Pacheco MD [...] opportunity to ask questions. documented in this encounterBluffton Hospital11-02-2022 History of Present illness Narrative* George [...] options. George Pacheco MD documented in this encounterBluffton Hospital10-27-2022 Miscellaneous Notes* Telephone Encounter - Delmy [...] you. Delmy Shane RN documented in this encounterBluffton Hospital10-14-2022 History of Present illness Narrative* George [...] options. George Pacheco MD documented in this encounterBluffton Hospital10-14-2022 Instructions* Patient Instructions* George Pacheco MD [...] any questions please contact our office at [phone]. After office hours or on the weekend, please call Dr. Pacheco on his cell phone at [phone]. documented in this encounterBluffton Hospital10-13-2022 NotePost Operative Note: Post-Procedure Diagnosis: 1. Primary Open Angle Glaucoma Right Eye, Mild Stage Procedure: 1. Canaloplasty using the OMNI Surgical System Right Eye with Trabeculotomy Right Eye Surgeon: George Pacheco MD Resident/Fellow/Other Media Law Faculty Member: None Estimated Blood Loss (mL): none Specimen: [...] Completion Last Updated: 12-Jan-2022 09:29 by George Pacheco)[place] [address]-13-2022 NoteHistory & Physical Reviewed: I have reviewed [...] Completion Last Updated: 12-Jan-2022 07:12 by George Pacheco)[facility] 01-09-2022 Instructions* Patient Instructions* Rosaura Cole, OD - 01/09/2022 5:39 PM EDT ASSESSMENT/PLAN: 1. Hyperopia, bilateral - ICD9: 367.0, ICD10: H52.03 (primary diagnosis) 2. Regular astigmatism, bilateral - ICD9: 367.21, ICD10: H52.223 Continue to wear his glasses with the optional update. 3. Pseudophakia - ICD9: V43.1, ICD10: Z96.1 Posterior chamber intraocular lenses are well positioned. Continue care with Dr. Pacheco. documented in this encounterBluffton Hospital10-10-2022 History of Present illness Narrative* Rosaura [...] and examined this patient. documented in this encounterBluffton Hospital10-10-2022 Miscellaneous Notes* Telephone Encounter - Monique [...] trace simple-appearing pleural effusions documented in this encounterBluffton Hospital10-08-2022 Instructions* Patient Instructions* George Pacheco MD [...] any questions please contact our office at [phone]. After office hours or on the weekend, please call Dr. Pacheco on his cell phone at [phone]. documented in this encounterBluffton Hospital10-08-2022 History of Present illness Narrative* George Pacheco MD - 01/07/2022 10:01 AM EDT ASSESSMENT/PLAN: 1. Primary open angle glaucoma (POAG) of right eye, mild stage - ICD9: 365.11, 365.71, ICD10: H40.1121 (primary diagnosis) - Uncontrolled Scheduled Canaloplasty/Trabeculotomy right eye 01/12/2022 at [facility]. Target Intraocular pressure:15 Due to the [...] diagnosis, and treatment options. documented in this encounterBluffton Hospital09-12-2022 Instructions* Patient Instructions* George Pacheco MD [...] any questions please contact our office at [phone]. After office hours or on the weekend, please call Dr. Pacheco on his cell phone at [phone]. documented in this encounterBluffton Hospital09-12-2022 History of Present illness Narrative* George [...] eye Scheduled Canaloplasty/Trabeculotomy right eye 01/12/2022 at [facility]. Return on 01/06/22 to sign glaucoma [...] diagnosis, and treatment options. documented in this encounterBluffton Hospital08-11-2022 History of Present illness Narrative* Andrés [...] treatment included: Therapeutic exercise, Neuromuscular re-education, and Self-halfway management. Patient has seen improvements in strength, balance, and walking speed. Patient has outstanding prognosis should he continue his HEP as discussed, and no longer requires skilled care to continue to make improvements. Goals updated on 11/10/2021. Goals for Episode of Care: created on 09/13/21 through 12/14/21 [place] in home exercise program. Met Patient will [...] facilitated with verbal, visual, and tactile cuing. Self-Fci Management: 1: Discussed pt's HEP, walking program, [...] 25 Andrés Frankel PT documented in this encounterBluffton Hospital08-08-2022 Instructions* Patient Instructions* George Pacheco MD - 11/07/2021 3:57 PM EDT Systane Complete Artificial Tears - Use 1 Drop into both eyes three times a day. Discontinue the Prednisolone eye drops If you have any questions please contact our office at [phone]. After office hours or on the weekend, please call Dr. Pacheco on his cell phone at [phone]. documented in this encounterBluffton Hospital08-08-2022 History of Present illness Narrative* George [...] diagnosis, and treatment options. documented in this encounterBluffton Hospital07-27-2022 Instructions* Patient Instructions* Triny Palmer - [...] (or decreased sensation in your feet) a refrigerator car icer should always cut your toenails. Be Careful [...] Go to your health care provider or refrigerator car icer to treat these conditions. documented in this encounterBluffton Hospital07-27-2022 History of Present illness Narrative* Triny [...] kidney disease) stage 3, GFR 30-59 ml/min ([facility]) [facility] Coronary artery disease 2006 s/p PCI. 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 Leon [facility] Heart attack ([facility]) Hyperlipidemia Hypertension Lacunar stroke ([facility]) Macular edema [facility] MVP (mitral valve prolapse) Pancreatitis Proliferative diabetic retinopathy(362.02) [facility] Snoring Stroke ([facility]) 2017 Tobacco abuse Current Outpatient Medications Medication [...] blood sugars 3- 4 times daily Insulin [place], Disposable, (BD ULTRAFINE III MINI PEN) 31 [...] 12 times daily Blood-Glucose Meter,Continuous (DEXCOM G4 OUTDOOR ADVENTURE INSTRUCTOR-SHARE KIT) misc One [place] device, patient checks blood sugars 12 times daily Blood-Glucose Transmitter (DEXCOM G6 TRANSMITTER) darleen 1 Each as directed. Blood-Glucose Meter,Continuous (DEXCOM G6 OUTDOOR ADVENTURE INSTRUCTOR) misc 1 Each as directed. Lancets (MICROLET [...] pain. (Patient not taking: Reported on 10/26/2021) CLRDDRTSXL-YVLUSPKC-ZCCZOGIHRJ ORAL Take by mouth. 400-100 daily (Patient [...] not taking: Reported on 10/26/2021 ) Gum Jxqiyq-Zboorb-WPbd-Alcohol (MASTISOL ADHESIVE) dpet 1 application as directed. [...] Objective: Patient presents to clinic ambulating in [facility] Constitutional: Pt is a well [...] no. Assessment: (B35.1) Onychomycosis (primary encounter diagnosis) (M79.675) [...] contact the office. Triny Palmer DPM * Queneie Cortés RN - 10/26/2021 1:48 PM EDT AMB ROOMING INTAKE FLOWSHEET DATA Patient presents with: Left Foot - Established Patient, Diabetic Foot Exam Right Foot - Established Patient, Diabetic Foot Exam Patient here for diabetic foot exam. Had kidney transplant 03/27/21. documented in this encounterBluffton Hospital07-14-2022 History of Present illness Narrative* Telma Rosenthal RN - 10/13/2021 2:30 PM EDT Images from the original note were not included. PREP SHEET FOR NEPHROLOGY CLINIC Patient Name: Андрей Nickerson Cloth Printer: Андрей Reyes Date of Kidney Transplant: 03/27/2021 Primary Disease: Diabetes Mellitus - Type I Transplant Tool Shaper Set Up Operator: Migel Ramirez Primary Care physician: Handy Henderson Last Transplant Appointment: 07/06/2021 MONITORING: MONITORING COMMENTS DGF Yes HLA Match: A1 B1 DR0 Living Donor? No [place] Recipient? No [place] ID Follow-up Testing 04/24/2021 to 05/22/2021 Date [...] Yes Submitted on 04/13/2021 Approved 04/20/2021 for [employer] Authorization number: [id number] Patient started treatment? 04/26/2021 If contacted by [...] senna, sirolimus, sofosbuvir- velpatasvir, sulfamethoxazole-trimethoprim, and valGANciclovir [place] [address] Change in lab frequency / new order [...] happy to see Андрей Nickerson at [facility] Post Transplant Office for evaluation [...] and fax to Dr. Leon Skinner at [phone] CUSTOM MEDICATION Please obtain weekly BMP and CBC for two weeks and fax results to Dr. Leon Skinner at [phone]. sofosbuvir-velpatasvir 400-100 MG tablet Take 1 tablet [...] levels: No results found for: CYCLOSPORIN, CYCLOSPORIN2, AXNBXUIOM5PB, CYCLORAND Lab Results Component Value Date SIROLIMUS [...] me. Sincerely Yours, Migel Gómez MD, ANGELIC Transmissions Systems Operator of Clinical Medicine [facility] documented in this encounterOSU [facility] Instructions* Patient Instructions* Telma Rosenthal RN - 10/13/2021 8:59 AM EDT - Additional labs are due today in clinic. Check routine labs every 2 weeks. - Reminder: set up an appointment with Dermatology. - Return to clinic in last October with RAYO. documented in this encounterOSU [facility]07-12-2022 History of Present illness Narrative* Andrés [...] of Care: created on 09/13/21 through 12/14/21 [place] in home exercise program. Met Patient will [...] Patient to be seen for Therapeutic exercise (10150);Neuromuscular re-education (62729);Manual therapy (08211);Therapeutic activities (10315);Self-halfway management (57663);Gait Training (43740);Patient/Family/Caregiver Education;Body Mechanics Training PLAN FOR NEXT VISIT: [place] SUBJECTIVE: Patient Reason for Visit: Pt reports [...] 25 Andrés Frankel PT documented in this encounterBluffton Hospital07-08-2022 History of Present illness Narrative* Andrzej Rosario PT - 10/07/2021 2:56 PM EDT Episode Visit Count: 5 Therapist That Will Oversee The Plan Of Care: Andrés Jostin Start of Care Date: 09/13/21 Onset Date: [...] sit to stance. TREATMENT: Therapeutic Exercise: 1: SciFit stepper seat [...] 22 Total Treatment Time Minutes (timed/untimed): 45 MELYSSA Brooke PT documented in this encounterBluffton Hospital07-05-2022 History of Present illness Narrative* Ida [...] 20 Total Treatment Time Minutes (timed/untimed): 43 Theodora Mejia, MELYSSA Horowitz PT documented in this encounterBluffton Hospital06-30-2022 History of Present illness Narrative* Andrés [...] 43 Andrés Frankel PT documented in this encounterBluffton Hospital06-24-2022 History of Present illness Narrative* Andrés Frankel, PT - 09/23/2021 1:59 PM EDT Episode [...] 15 Total Treatment Time Minutes (timed/untimed): 45 Theodora Roberto, MELYSSA Frankel PT documented in this encounterBluffton Hospital06-14-2022 History of Present illness Narrative* Andrés [...] of Care: created on 09/13/21 through 12/14/21 [place] in home exercise program. Patient will decrease [...] the ernandez Planned Interventions, Frequency, and Duration: Current Frequency: 2x/week Duration: 12 weeks Total Number of Visits Planned: 16 Planned Treatment Interventions: Therapeutic exercise (53339);Neuromuscular re- education (62403);Manual therapy (20696);Therapeutic activities (48240);Self- halfway management (90815);Patient/Family/Caregiver Education;Body Mechanics Training PLAN FOR NEXT VISIT: [...] balanceissues since getting a kidney transplant [place]. Notes he can do most daily functions, but unable to enjoy his recreational activities of picking mushrooms, walking for pleasure, and some higher level exertions due to the weakness in his legs. Some B hip pain too, points to greater trochanter area. Patient Goals: get back to walking in the ernandez Functional Limitations: walking in the community;stair negotiation;heavy [...] Care;Body Mechanics TREATMENT: PT Treatment Interventions: Therapeutic Exercise;Self-Fci Management Evaluation Therapeutic Exercise: 1: *SLR 3x10 [...] and tactile cuing. Patient education as noted. Self-Fci Management: 1: Educated on plan of care, [...] 53 Andrés Frankel PT documented in this encounterBluffton Hospital06-14-2022 Miscellaneous Notes* Telephone Encounter - Magdalena Cbaezas LPN - 09/13/2021 10:44 AM EDT Liset from [facility] returned call and went over [...] last re-certified patient for 4 week for senior care. Liset states that next week 09/19/2021 will be patient's last visit for home senior care. Patient will continue his weekly labs through outpatient. Liset requesting a call back if provider agreeable to this. Sakina Webb RN documented in this encounterBluffton Hospital06-01-2022 Miscellaneous Notes* Telephone Encounter - Portia [...] cover sheet. Howie to refax forms to [phone] incase not received in office previously. Janie Butt RN documented in this encounterBluffton Hospital05-19-2022 Miscellaneous Notes* Telephone Encounter - Candace [...] lab to her office. documented in this encounterBluffton Hospital05-18-2022 Instructions* Patient Instructions* Handy Henderson DO - 08/17/2021 2:59 PM EDT Pneumovax 23 vs. Prevnar 13 vs. Pneumonia 20 vaccine Ask transplant team [place] [facility] exercise program- ask insurance about coverage for a program documented in this encounterBluffton Hospital05-18-2022 History of Present illness Narrative* Handy [...] labs checked. Type 1 diabetes, managed by Timber Cruiser. HTN, overall has been stable, denies any [...] kidney disease) stage 3, GFR 30-59 ml/min (FORMERLY [facility]) [facility] Coronary artery disease 2006 s/p PCI. 3 stents total Diabetes type 1, uncontrolled 1971 nephropathy, retinopathy, dx age 10, Dr. Leon [facility] Heart attack ([facility]) Hyperlipidemia Hypertension Lacunar stroke ([facility]) Macular edema [facility] MVP (mitral valve prolapse) Pancreatitis Proliferative diabetic retinopathy(362.02) [facility] Snoring Stroke ([facility]) 2017 Tobacco abuse PAST SURGICAL HISTORY Procedure [...] every 8 hours as needed for pain. ETOOKXOPWK-PWVJDCAI-HUWPBXZGRW ORAL Take by mouth. 400-100 daily sulfamethoxazole-trimethoprim [...] once daily. On right leg wound Gum Vlnmtt-Cjzkji-OVdp-Alcohol (MASTISOL ADHESIVE) dpet 1 application as directed. [...] blood sugars 3- 4 times daily Insulin S[place], Disposable, (BD ULTRAFINE III MINI PEN) 31 [...] 12 times daily Blood-Glucose Meter,Continuous (DEXCOM G4 OUTDOOR ADVENTURE INSTRUCTOR-SHARE KIT) misc One [place] device, patient checks blood sugars 12 times daily Blood-Glucose Transmitter (DEXCOM G6 TRANSMITTER) darleen 1 Each as directed. Blood-Glucose Meter,Continuous (DEXCOM G6 OUTDOOR ADVENTURE INSTRUCTOR) misc 1 Each as directed. insulin detemir [...] 250.51, 362.04, ICD10: E10.3293 - f/u with [employer] for mgmt and monitoring 9. Bilateral leg [...] plan. See patient instructions. Handy Henderson DO [address] [place] [address] documented in this encounterBluffton Hospital05-09-2022 History of Present illness Narrative* Elisa [...] kidney disease) stage 3, GFR 30-59 ml/min ([facility]) [facility] Coronary artery disease 2005 s/p PCI. 3 stents total Diabetes type 1, uncontrolled 1971 nephropathy, retinopathy, dx age 10, Dr. Carolyn [facility] Heart attack ([facility]) Hyperlipidemia Hypertension Lacunar stroke ([facility]) Macular edema [facility] MVP (mitral valve prolapse) Pancreatitis Proliferative diabetic retinopathy(362.02) [facility] Snoring Stroke ([facility]) 2017 Tobacco abuse ALLERGIES Patient has no [...] twice daily. 4 caps q 12 hours AYBSRSANFN-ZAIYYVJW-NDSQCFFYZU ORAL Take by mouth. 400-100 daily sulfamethoxazole-trimethoprim [...] blood sugars 3- 4 times daily Insulin Seld[place], Disposable, (BD ULTRAFINE III MINI PEN) 31 [...] 12 times daily Blood-Glucose Meter,Continuous (DEXCOM G4 OUTDOOR ADVENTURE INSTRUCTOR-SHARE KIT) misc One Mesa device, patient checks blood sugars 12 times daily Blood-Glucose Transmitter (DEXCOM G6 TRANSMITTER) darleen 1 Each as directed. Blood-Glucose Meter,Continuous (DEXCOM G6 OUTDOOR ADVENTURE INSTRUCTOR) misc 1 Each as directed. Lancets (MICROLET [...] once daily. On right leg wound Gum Hinupj-Ajjgnf-XXuq-Alcohol (MASTISOL ADHESIVE) dpet 1 application as directed. [...] plan. Elisa Andre PA-C documented in this encounterBluffton Hospital05-05-2022 History of Present illness Narrative* Jignesh Oliver MD - 08/04/2021 2:39 PM EDT Jignesh Oliver MD Department of Orthopaedics Orthopaedics [address] [facility] [address] Dept: [phone] Dept August 04, 2021 Consultation requested by [...] transplant on 03/27/21. 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 Consulting Hr Professional: KYLER Transcribe Date/Time: Apr 19 2021 3:57P [...] kidney disease) stage 3, GFR 30-59 ml/min ([facility]) [facility] Coronary artery disease 2006 s/p PCI. 3 stents total Diabetes type 1, uncontrolled 1971 nephropathy, retinopathy, dx age 10, Dr. Leon [facility] Heart attack ([facility]) Hyperlipidemia Hypertension Lacunar stroke ([facility]) Macular edema [facility] MVP (mitral valve prolapse) Pancreatitis Proliferative diabetic retinopathy(362.02) [facility] Snoring Stroke ([facility]) 2017 Tobacco abuse Past Surgical History: PAST [...] Take 20 mg by mouth twice daily. IVZINJSUON-IQRIKTCJ-ULCFDZSYMI ORAL Take by mouth. 400-100 daily valGANciclovir [...] blood sugars 3- 4 times daily Insulin Seldovia, Disposable, (BD ULTRAFINE III MINI PEN) 31 [...] 12 times daily Blood-Glucose Meter,Continuous (DEXCOM G4 OUTDOOR ADVENTURE INSTRUCTOR-SHARE KIT) misc One Mesa device, patient checks blood sugars 12 times daily Blood-Glucose Transmitter (DEXCOM G6 TRANSMITTER) darleen 1 Each as directed. Blood-Glucose Meter,Continuous (DEXCOM G6 OUTDOOR ADVENTURE INSTRUCTOR) misc 1 Each as directed. Lancets (MICROLET [...] once daily. On right leg wound Gum Fkxugu-Ofoedd-UXff-Alcohol (MASTISOL ADHESIVE) dpet 1 application as directed. [...] PHYSICIAN: Mr. Андрей Nickerson was referred to me for consultation by the following physician. This consultation note will be sent to the following physician by either mail or electronic medical record. Maya Salas [address] [facility] [address] Handy Henderson DO [address] [facility] [address] Jignesh Oliver MD documented in this encounterBluffton Hospital04-27-2022 Miscellaneous Notes* Telephone Encounter - Portia [...] LPN * Telephone Encounter - Maya Salas APRN.CNP - 07/04/2021 11:00 AM EDT Noted, thank you. Yes, please send copy of lab work. Maya Salas APRN.CNP * Telephone Encounter - Moni Gaines RN - 07/01/2021 3:46 PM EDT Kanwal from [facility] calling to report start of Nursing care [...] her when completed? Please call Kanwal at [phone]. documented in this encounterBluffton Hospital04-11-2022 Instructions* Patient Instructions* Maya Salas APRN.CNP - 07/11/2021 2:52 PM EDT Schedule with orthopedics Follow-up in 2 months for routine visit. documented in this encounterBluffton Hospital04-11-2022 History of Present illness Narrative* Maya Salas APRN.CNP - 07/11/2021 2:00 PM EDT Chief Complaint Patient presents with: Hospital F/U: [facility] , then reaction from antirejection medication another trip to stay [facility] to [facility] Андрей Nickerson is a 60 year old male who presents here today for Above Complaints. Андрей is an established patient of Dr. Henderson. Анрдей is new to me today.. Concerns today.. Hospital follow-up: Kidney transplant March 26, 2021. Went to [facility] for rehab following transplant. Was living at parents for awhile following this d/t single level home and easier to get around. After continuous worsening gerneralized weakness, ended up back at [facility] due to body rejecting Kidney trasnplant. Was initially on Prograft -- patient reports this being the medication that gave him all the trouble so this changed his regimen and now he feels much better. Had peritoneal dialysis catheter removed on 06/17/20. Was back in rehab for 1 week. Now returns home to [place] about 1-1.5 weeks ago. Having home health coming to house. Getting PT, weekly lab work, and incision care. No need for OT. Working on getting legs stronger. 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 Boss is willing to work with patient about managing partner or light duty when patient is ready and gains strength back. Patient aware and agrees he is notready for this. Discussed immunosuppressant state and the importance of cautiousness of preventing i nfection. Incision site well approximated, healing well, with no signs of infection. Has appointment to have elliot removed next week at [facility]. Current Immunosuppressive Regimen: Everolimus/ Zortress 1 [...] kidney disease) stage 3, GFR 30-59 ml/min ([facility]) [facility] Coronary artery disease 2006 s/p PCI. 3 stents total Diabetes type 1, uncontrolled 1971 nephropathy, retinopathy, dx age 10, Dr. Leon [facility] Heart attack ([facility]) Hyperlipidemia Hypertension Lacunar stroke ([facility]) Macular edema [facility] MVP (mitral valve prolapse) Pancreatitis Proliferative diabetic retinopathy(362.02) [facility] Snoring Stroke ([facility]) 2017 Tobacco abuse Previous Surgical History PAST [...] every 8 hours as needed for pain. WXLVAYFUSK-DZGPLUUE-OFSKEYHESK ORAL Take by mouth. 400-100 daily sulfamethoxazole-trimethoprim [...] once daily. On right leg wound Gum Bvfkdr-Sitgnz-JDwv-Alcohol (MASTISOL ADHESIVE) dpet 1 application as directed. [...] Reported on 02/19/2021 ) blood sugar diagnostic (Tequ[employer] ULTRA TEST) test strip Checking blood sugars 3- 4 times daily Insulin Seldovia, Disposable, (BD ULTRAFINE III MINI PEN) 31 [...] 12 times daily Blood-Glucose Meter,Continuous (DEXCOM G4 OUTDOOR ADVENTURE INSTRUCTOR-SHARE KIT) misc One [place]a device, patient checks blood sugars 12 times daily Blood-Glucose Transmitter (DEXCOM G6 TRANSMITTER) darleen 1 Each as directed. Blood-Glucose Meter,Continuous (DEXCOM G6 OUTDOOR ADVENTURE INSTRUCTOR) misc 1 Each as directed. insulin detemir [...] immunosuppressant medication regimen. -Continue to follow-up with [facility] team for transplant / nephrology. [...] From blood work 7 days ago from [facility] -- well controlled and stable. Results are in chart. - Continue with current regimen. Follow-up, RTO, in 2 months for routine follow-up of chronic conditions. Prescription instructions reviewed with patient as applicable. Potential red flag symptoms discussed with the patient. Reviewed appropriate action plan to take if red flag symptoms occur. Patient agreeable to treatment plan. Maya Salas APRN.MARIA M [address] [place] [address] documented in this encounterBluffton Hospital04-06-2022 Instructions* Patient Instructions* Gonzalo Drew RN - 07/06/2021 3:45 PM EDT - Labs in clinic - Increase Mycophenolate to 1,000 mg twice a day - Return to clinic 10/13/2021 with Migel Gómez MD as scheduled documented in this encounterUpper [facility]04-06-[facility] History of Present illness Narrative* Андрей Reyes RN - 07/06/2021 3:15 PM EDT Images from the original note were not included. PREP SHEET FOR NEPHROLOGY CLINIC Patient Name: Андрей Nickerson Cloth Printer: Андрей Reyes Date of Kidney Transplant: 03/27/2021 101 days Staple removal, Hep C labs Primary Disease: Diabetes Mellitus - Type I Transplant Tool Shaper Set Up Operator: Migel Ramirez Primary Care physician: Handy Henderson Last Transplant Appointment: MONITORING COMMENTS DGF Yes HLA Match: A1 B1 DR0 Living Donor? No [place] Recipient? No [place] ID Follow-up Testing 04/24/2021 to 05/22/2021 Date [...] 04/13/2021 Approved 04/20/2021 for Epclusa Authorization number: [id number] Patient started treatment? 04/26/2021 If contacted by [...] prednisoLONE acetate, senna, sofosbuvir-velpatasvir, sulfamethoxazole-trimethoprim, and valGANciclovir [place] [address] Change in lab frequency / new order [...] transplant. Date of Transplant: 03/27/2021. ADDITIONAL INFORMATION: [place] [address] [facility] [place] [address] - [address] [place] [address] [facility]acy [facility][id number] [place] [address] [address] [facility] [address] [facility] [facility] [address] [facility] [address], [address] [place] [address] [facility] [address], [address] [place] [address] [facility] [address], [address] [place] [address] ROS and SCREEN: Chest Pain: negative Cough: negative SOB: negative Abd Pain: negative Nausea: negative Vomiting: negative Diarrhea: negative Constipation: negative Dysuria: negative Edema: negative Tremors: negative Headaches: negative Wound issues: negative Alcohol consumption: no Cigarette smoking, smokeless tobacco or vaping/e-cigarette use: no Marijuana (any form), CBD oil or street drug use: no QUESTIONS OR CONCERNS TO ADDRESS WITH PHYSICIAN: * Melissa Alaniz, [facility] - 07/06/2021 3:15 PM EDT [...] and fax to Dr. Leon Skinner at [phone] CUSTOM MEDICATION Please obtain weekly BMP and CBC for two weeks and fax results to Dr. Leon Skinner at [phone]. Dexcom G6 Sensor Misc Change Sensor every [...] 03/27/2021 Patient received a HCV ADAMARIS+ organ Palliative Care Coordinator: Treatment plan: Epclusa for 12 weeks Treatment [...] twice daily Name: Melissa Alaniz RPH Phone: [phone] Date/Time: 07/06/2021 3:56 PM * Sharon Acuna MD - 07/06/2021 3:15 PM EDT Images from the original note were not included. Post-Tx Evaluation Kidney 07/06/2021 Андрей Nickerson [id number] Chief Complaint: Chief Complaint Patient presents with [...] N/A; Surgeon: Unruly Diaz MD, PhD; Location[facility] MA[facility] KIDNEY TRANSPLANT W/O TUOLUMNE NEPHRECTOMY N/A 03/27/2021 Laterality: N/A; Surgeon: Sharon Acuna MD; Location: [facility] MA[facility] OR CORONARY ANGIOPLASTY N/A 04/21/2011 Laterality: N/A; Surgeon: Ricardo Herman MD; Location: [facility] BERN CATH CORONARY DRUG ELUTING STENT PLACEMENT N/A 04/21/2011 Laterality: N/A; Surgeon: Ricardo Herman MD; Location: [facility] BERN CATH CORONARY STENT PLACEMENT 2005 x3 REMOVAL [...] and fax to Dr. Leon Skinner at [phone] 1 Each 0 CUSTOM MEDICATION Please obtain weekly BMP and CBC for two weeks and fax results to Dr. Leon Skinner at [phone]. 1 Each 0 Dexcom G6 Sensor Misc [...] FOR NEPHROLOGY CLINIC Patient Name: Андрей Nickerson Cloth Printer: Андрей Reyes Date of Kidney Transplant: 03/27/2021 101 days Staple removal, Hep C labs Primary Disease: Diabetes Mellitus - Type I Transplant Tool Shaper Set Up Operator: Migel Ramirez Primary Care physician: Handy Henderson Last Transplant Appointment: MONITORING COMMENTS DGF Yes HLA Match: A1 B1 DR0 Living Donor? No [place] Recipient? No [place] ID Follow-up Testing 04/24/2021 to 05/22/2021 Date [...] 04/13/2021 Approved 04/20/2021 for Epclusa Authorization number: [id number] Patient started treatment? 04/26/2021 If contacted by [...] prednisoLONE acetate, senna, sofosbuvir-velpatasvir, sulfamethoxazole-trimethoprim, and valGANciclovir [place] [address] Change in lab frequency / new order [...] transplant. Date of Transplant: 03/27/2021. ADDITIONAL INFORMATION: [place] [id number] [facility] [address] [facility] [place] [address] - [address] [address] [id number] [place] [address] [address] [facility] [address] [facility] [address] [facility] [address] [place] [address] [facility] [address], [address] [facility] [address] [facility] [address], [address] [facility] [address] ROS and SCREEN: Chest Pain: negative Cough: [...] his questions were answered. documented in this encounterOSU [facility] Miscellaneous Notes* Telephone Encounter - Christine Killian LPN - 06/24/2021 4:19 PM EDT Detailed message left on VM. Christine Killian LPN * Telephone Encounter - Maya Salas APRN.CNP - 06/24/2021 4:04 PM EDT Agreeable. 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 Magdalena asking if provider willing to follow patient with orders forSkilled Nursing, Physical Therapy, and Occupational Therapy. If agreeable please give Magdalena a call back . Thank you, Sakina Webb RN documented in this encounterBluffton Hospital03-22-2022 History of Present illness Narrative* MARISOL Bustillo - 06/21/2021 2:27 PM EDT Final Discharge Planning and Transportation Final Discharge Planning Discharge Disposition: Inpatient Rehab Facility Services at Discharge: Physical Therapy, Occupational Therapy, [facility] Selected Continued Care - Discharged on 06/21/2021 Admission date: 06/11/2021 - Discharge disposition: [facility] Facility Destination Coordination complete. Service Provider Selected Services Address Phone Fax Patient Preferred [facility] Inpatient Rehabilitation [address] [facility] [id number] -- Community Agency Name(s) For Handoff: [facility] Phone For Handoff: [phone] Fax For Handoff: [phone] Plan Plan: Pt to discharge to inpatient rehabiltiation after his hospital stay. Patient/Family In Agreement With Plan: yes Dental Hygiene Teacher Called: Yes Name of Transport Company: Other (Comment) (W/C van with [employer] ([phone])) ETA of Ambulance: 06/21 @ [phone] Transfer Mode: wheelchair Mode of Transfer: other [...] available to IPR. W/C van form at [facility] desk. Pre-cert obtained per IPR. Pt/pt's spouse updated on discharge plan. Fide DAMON-S [address] [place] [address] Enterprise Systems Architect * Miriam Fernandez RN - 06/21/2021 2:27 PM EDT Final Discharge Planning and Transportation Final Discharge Planning Selected Continued Care - Discharged on 06/21/2021 Admission date: 06/11/2021 - Discharge disposition: [facility] Facility Destination Coordination complete. Service Provider Selected Services Address Phone Fax Patient Preferred [facility] Inpatient Rehabilitation [address] [place] [address] [phone] -- Plan Patient to discharge to inpatient rehabilitation after his hospital stay. Transportation WC Van with [employer] To arrive Wednesday 06/21 at [phone] Patient will go alone and will have a copy of medical records with him. Pharmacy For all fills, the patient must use the insurance provider's preferred pharmacy, [facility] ( , ). Patient stated on Zortress while inpatient. Patient is also on Epclusa. Both medications are a significant cost to the IPR. Per transplant [facility], [facility]. Physician will send new order for [...] We continue to wait for reply from [employer] to see if a PA is needed and what the cost will be to the patient. Post senior marketing coordinator Josse was notified about the change in medication. Josse provided a new lab order. This was given to patient at discharge, SW uploaded it to [facility] and Josse faxed to [facility] lab. Future Appointments Provider Department Center 06/24/2021 1:45 PM [facility] Transplant [facility] 10/25/2021 1:30 PM Aminata Mohan [facility] [place] KAYY Whelan, RN Clinical Glass Cleaner * BOBBI Coates Meng, PhD - 06/21/2021 2:27 PM EDT [facility] Inpatient Diabetes Consults Progress Note [facility] Inpatient Diabetes Consult Service Progress Note Assessment [...] of d/c for definitive recs. Please see [employer],under IM Consult Serv Endocrine/Diabetes - Team 2 Diab Consults for provider on day of discharge. Tentative discharge plan: as above. (Please use the Diabetes Discharge Order Set to order medications and supplies) Primary team to please provide the following prescriptions: Novolog VIAL 3. Follow up needed: [facility], , for HFU in 2-4 weeks with [facility] 4. Education: Discussed daily plan Thank you [...] , found he has COVID-19 +ve in Fe s/p antibody infusion at that time, recently [...] medications will need to be ordered from [facility] pharmacy. Physician will send new order [...] facility with him. KAYY Pineda, RN Clinical Glass Cleaner * MARISOL Bustillo - 06/21/2021 10:50 AM EDT Placement Plan Expected Discharge Date: 06/21/2021 Referred Level of Care: IPR Barriers: medical stability Current Referrals and Status 1. [facility]-accepted; pre-cert obtained SW received update from [facility] that pre-cert obtained through 06/27. Transport arranged today, Wednesday 06/21 @ [phone] pending medical stability. Await update from physician regarding pt's ability to discharge. SW met with pt at bedside to discuss discharge plans. Pt voices agreement with discharge to [facility] v home with services. Pt voices w/c van as preferred transport mode. He voiced concern about medicationteaching/education. SW discussed including his spouse in with teaching/education before pt discharges from [facility]. SW provided update to IPR Josue darden [...] to continue & follow as needed. Fide DAMON-[place] [address] Enterprise Systems Architect ADDENDUM 06/21 @ 1130: Received call back [...] left before refill needed; relayed information to VON Salas. ADDENDUM 06/21 @ 1325: Received update from [facility] & CM that pt will need to fill his Zortress through [facility], but a 30 day free trial is available through music specialist & [facility] is able to fill this for patient to take to IPR. Per physician, patient able to discharge today to IPR. Once cost of pt's Zortress known for refills, SW to notify IPR liaison if further follow up regarding out ofpocket cost for Zortress will be needed with [facility] Post transplant center. Addendum 06/21 @ 1415: SW provided pt's 30 day supply of Zortress to pt's RN for patient to take to [facility]. SW forwarded pt's new CTC lab letter from today to IPR. Updated IPR liaison. Met with pt at bedside to provide update on his Zortress & lab letter. No further SW needs identified at this time. * Zee Marshall APRN-MENDING CARRIER - 06/20/2021 3:58 PM EDT [facility] Inpatient Diabetes Consults Progress Note [facility] Inpatient Diabetes Consult Service Progress Note Assessment [...] of d/c for definitive recs. Please see [employer],under IM Consult Serv Endocrine/Diabetes - Team 2 Diab Consults for provider on day of discharge. Tentative discharge plan: (Please use the Diabetes Discharge Order Set to order medications and supplies) Primary team to please provide the following prescriptions: Novolog VIAL 3. Follow up needed: [facility], , for HFU in 2-4 weeks with [facility] 4. Education: Discussed daily plan 5. Will [...] however [facility]. ? Fastin-100 ? Hypoglycemia: Denies Home diabetes [...] Acute Physical Therapy Treatment Prior to Admission [facility] score(s): PRIOR LEVEL AM-PAC Mobility Raw Score: [...] 2 wheeled walker Mobility Assessment/Intervention: Rolling/Turning Mobility [place] Level: Rolling/Turning: not tested (Pt reports independently completing bed mobility and transfer to the chair prior to PT arrival) Scooting Bridging Mobility [place] Level: Scooting/Bridging: not tested Supine to Sit Mobility [place] Level: Supine->Sit: not tested Sit to Supine Mobility [place] Level: Sit->Supine: not tested Transfer Assessment/Intervention: Sit to Stand Transfer [place] Level: Sit->Stand: supervision Stand to Sit Transfer [place] Level: Stand->Sit: supervision Gait/Functional Mobility Assessment/Intervention: Gait Assessment [place] Level: Gait: stand-by assist Assistive Device: Gait: 2 wheeled walker Gait Distance (feet): 250 Gait Deviations Identified: decreased katelyn, flexed posture Gait Skilled Rationale: verbal, upright posture, proximity of assistive device Skilled Intervention/Details - Gait: minor cues provided for upright posture and proximity to WW; good carryover demonstrated Stairs Assessment/Intervention: Stairs Assessment [place] Level: Stair Negotiation: stand-by assist Assistive Device: [...] Stand Test recorded time: 24.48 seconds CURRENT -[facility] Basic Mobility Inpatient Short Form Turning over in bed: 4 - No Assistance Sitting/standing from chair: 4 - No Assistance Moving from lying on back to sittin - No Assistance Moving to and from bed to chair: 4 - No Assistance Walk in hospital room: 3 - A Little Assistance Climbing 3-5 steps with a railin - A Little Assistance CURRENT [facility] Mobility Raw Score: 22 CURRENT [facility] Mobility Functional Limitation/Modifier: 20.91% Currently Impaired in [...] progress towards above goal(s). Treating Therapist: Alden Urena, PT Additional Details: Co-evaluation/co-treatment performed?: No simultaneous [...] George MD - 06/20/2021 2:46 PM EDT [facility] Medicine Daily Progress Note Patient: Андрей Nickerson, 1960, [id number] Physician: Darren George MD, Attending Physician, Pager #[phone], Gen Med 6 service Length of stay: [...] EDT I saw Андрей Nickerson at the [facility] on 06/20/2021. Subjective: Seen at bedside; No [...] Will follow Leon Skinner MD Attending Transplant Tool Shaper Set Up Operator * Miriam Fernandez RN - 06/20/2021 2:19 PM EDT Progression of Care Note Expected Discharge Date: 06/21/2021 Medical Milestones Remaining: Medically ready Assessment and Discharge Plan as of 06/20/2021 2:19 PM Anticipated discharge disposition: Inpatient Rehab Facility Anticipated Services at Discharge: Physical Therapy, Occupational Therapy, Outpatient follow up, [facility] Barriers to Discharge: Transportation Explanation of Barriers: transportation ([facility]-available/reserved) Readmission Risk Score Risk of Readmission: 8.7 [...] pre-cert/transport/medical stability Current Referrals and Status 1. [facility], [facility]et[facility]-available/reserved SW received update from w/e SW that [...] continue to follow as needed. Fide Grimes Enterprise Systems Architect ADDENDUM 06/20 @ 1425: SW received update from IPR that pt's [...] No new COVID test needed per IPR liaison, Josue as pt was recently COVID (+) per chart review. SW to arrange transportation after confirmation obtained from pt's spouse regarding ability to provide pt's home [place]. Fide Grimes Enterprise Systems Architect * Zee Marshall, NORAH-MENDING CARRIER - 06/19/2021 2:59 PM EDT [facility] Inpatient Diabetes Consults Progress Note [facility] Inpatient Diabetes Consult Service Progress Note Assessment [...] , for HFU in 2-4 weeks with CAREER TRANSITION SPECIALIST 4. Education: Discussed daily plan 5. Will review glucoses and discuss with Dr Mohan as needed. Thank you for allowing us to participate in your patient's care. If you have questions please checkon [employer] [facility], under IM Consult Serv, Endocrine/Diabetes, and call [...] (06/19 609) Bun/Creat/Cl/CO2/Glucose: 44/2.97/110/19/168 (06/19 609-06/19 641) Lab Results Component Value Date CHOLESTEROL 90 [...] cert/transportation/medical stability Current Referrals and Status 1. [facility], no bed 2. [facility]-available 3. [facility]-unavailable, too complex 4. [facility] ([phone])-unavailable 5. [facility] ([phone])-unavailable 6. SNF-12 referrals with no response; 2 declined-no available options SW attempted to contact pt's spouse, Nalini & voice mail is full. SW will attempt again and continue to follow. ADDENDUM Enterprise Systems Architect able to meet with patient and discussed discharge planning. Patient voices agreement with going to [facility] for inpatient rehabilitation. Enterprise Systems Architect will follow with this facility and request they begin pre-cert. * Darren George MD - 06/19/2021 10:44 AM EDT Hospital Medicine Daily Progress Note Patient: Андрей Nickerson, 1960, [id number] Physician: Darren George MD, Attending Physician, Pager #[phone], Gen Med 6 service Length of stay: [...] well. Disappointed that unable to go to [facility], but still thinks he would benefit from [...] kg/m . Signed, Darren George MD * DIAN Bernabe - 06/18/2021 2:31 PM EDT Placement Plan Expected Discharge Date: 06/18/2021 Referred Level of Care: IPR v SNF Barriers: facility acceptance/pt-pt's family choice/pre- cert/transportation/medical stability Current Referrals and Status 1. [facility], no bed 2. [facility]-available 3. [facility]-unavailable, too complex 4. [facility] ([phone])-unavailable 5. [facility] ([phone])-unavailable 6. SNF-12 referrals with no response; 2 declined-no available options SW attempted to contact pt's spouse, Nalini & voice mail is full. SW will attempt again and continue to follow. HENRIK Leger, VESSEL CAPTAIN Pharmacist In Charge [id number] * Zee Marshall, NORAH-MENDING CARRIER - 06/18/2021 11:18 AM EDT [facility] Inpatient Diabetes Consults Progress Note [facility] Inpatient Diabetes Consult Service Progress Note Assessment [...] , for HFU in 2-4 weeks with CAREER TRANSITION SPECIALIST 4. Education: Discussed daily plan 5. Will [...] however has not been [facility]. ? Fastin-100 ? Hypoglycemia: Denies Home diabetes [...] George MD - 06/18/2021 11:04 AM EDT [facility] Medicine Daily Progress Note Patient: Андрей Nickerson, 1960, [id number] Physician: Darren George MD, Attending Physician, Pager #[phone], Gen Med 6 service Length of stay: [...] EDT I saw Андрей Nickerson at the [facility] on 06/18/2021. Subjective: Seen at bedside; No [...] Will follow Leon Skinner MD Attending Transplant Tool Shaper Set Up Operator * BOBBI Friend - 06/17/2021 4:58 PM EDT I saw Андрей Nickerson at the [facility] on 06/17/2021. Subjective: Seen at bedside; No [...] Will follow Leon Skinner MD Attending Transplant Tool Shaper Set Up Operator * Awa Larry, PT - 06/17/2021 1:23 PM EDT Physical Therapy Attempt Note 06/17/2021 PT Therapy Completed: Attempted Attempted Reason: Patient is unavailable due to test/procedure (per Chan RN pt currently off floors/p PACU drain removal) Will re-attempt as appropriate and as schedule permits. Ghazala Larry, PT, DPT [id number] 06/17/2021 * Peter Hickey OT - 06/17/2021 [...] cert/transportation/medical stability Current Referrals and Status 1. [facility], no bed 2. [facility]-available 3. [facility]-unavailable, too complex 4. [facility] ([phone])-unavailable 5. [facility] ([phone])-unavailable 6. SNF-12 referrals with no response; 2 declined-no available options Received responses back from IPR referrals; one accepting facility. EARLE attempted to contact pt's spouse, Nalini & voice mail is full. Attempted to meet with pt at bedside to provide update & ptout of room at medical procedure. No accepting SNF options; extended time to obtain response. SW to re-attempt to provide update to pt/pt's spouse regarding IPR option. Pre-cert needed, once facility chosen. Fide HANCOCK [address] Enterprise Systems Architect Addendum 06/17 @ 5292: EARLE spoke with pt's spouse, Fani & provided her the available [facility] option. She requests to review the facility with her spouse. EARLE emailed IPR choice list to pt's spouse: [email or web address]. [facility] [place] [facility] since outlying SNFs in [facility] area did not respond back to referrals. Discussed that pre-cert is needed for facility placement. SW requested response be provided this afternoon or tomorrow to W/E SW. Fide DAMON-S 10 Grimes Enterprise Systems Architect SW provided handoff to weekend SW for continuity of care. For further assistance over the weekend, please contact SW as needed (8:00am - 4:30pm): [facility] and Spine: CCM: [phone] / Enterprise Systems Architect: [phone] Grimes: CCM: [phone] / Enterprise Systems Architect: [phone] Julian: CCM : [phone] / Enterprise Systems Architect: [phone] Martin/MICU/PCU Tian: CCM: [phone] / Enterprise Systems Architect: [phone] * Darren George MD - 06/17/2021 11:22 AM EDT [facility] Medicine Daily Progress Note Patient: Андрей Nickerson, 1960, [id number] Physician: Darren George MD, Attending Physician, Pager #[phone], Gen Med 6 service Length of stay: [...] Studies and Imaging Recent Labs 06/15/21 0556 06/17/21622 WBC -- 8.27 HGB -- 11.2* PLATELET 153 164 PT -- 13.2 INR -- 1.0 Recent Labs 06/17/21622 SODIUM 136 POTASSIUM 5.1* CHLORIDE 112* CO2 [...] Brown MD Department of General Surgery Pager: [phone] * MARISOL Bustillo - 06/16/2021 2:59 PM [...] for one week after recent discharge from SNF-.[facility]. Before transplant, patient resided with his [...] of being outdoors, including fishing and attending [employer]. SW reviewed mental health symptoms and patient [...] case request in the system with his [facility]. Pt does not have Medicare reflected either. [...] planning: IPR v SNF anticipated. Fide DAMON-S [address] [place] [address] Enterprise Systems Architect * MARISOL Bustillo - 06/16/2021 2:01 PM EDT Placement Plan Expected Discharge Date: 06/18/2021 Referred Level of Care: IPR v SNF Barriers: faciltiy acceptance/patient choice/pre-cert/transportation/medical stability Current Referrals and Status 1. [facility]fm[facility], no bed 2. [facility]-available 3. [facility]-unavailable, too complex 4. [facility] ([phone])-sent 5. [facility]- [facility] ([phone])-sent 6. SNF-referrals pending-no available options [facility] confirmed ability to accept patient at discharge, [...] geographic area. Spoke with Katherine @ [facility] & confirmed referral received; await facility response. Spoke with Callie @ [facility] & she will contact admissions ([place]) to review referral; await facility response. SW will continue to follow as needed. Fide DAMON-S [address] [place], [place] [address] * Darren George MD - 06/16/2021 1:05 PM EDT [facility] Medicine Daily Progress Note Patient: Андрей Nickerson, 1960, [id number] Physician: Darren George MD, Attending Physician, Pager #[phone], Gen Med 6 service Length of stay: [...] EDT I saw Андрей Nickerson at the [facility] on 06/16/2021. Subjective: Seen at bedside; No [...] Will follow Leon Skinner MD Attending Transplant Tool Shaper Set Up Operator * Madie Armas, BRUSHER MACHINE-MENDING CARRIER - 06/16/2021 12:08 PM EDT [facility] Inpatient Diabetes Consults Progress Note [facility] Inpatient Diabetes Consult Service Progress Note Assessment [...] of d/c for definitive recs. Please see [employer],under IM Consult Serv Endocrine/Diabetes - Team 2 [...] , for HFU in 2-4 weeks with CAREER TRANSITION SPECIALIST 4. Education: Discussed daily plan 5. Will review glucoses and discuss with Dr Mohan Thank you for allowing us to participate in your patient's care. If you have questions please checkon [employer], under IM Consult Serv, Endocrine/Diabetes, and call [...] Oriented to person, Oriented to time (stated [facility]- self corrected; May 2021; stated . Able identify it is [facility] day with prompt) Following Commands: Follows one step commands without difficulty Safety Judgment: Good awareness of safety precautions Awareness of Errors: Good awareness of errors made Deficits: Fully aware of deficits Attention Span: Attends with cues to redirect Memory: Decreased recall of recent events, Decreased fdc memory Problem Solving: Assistance required to generate [...] Assessment/Intervention: Transfer Assessment/Intervention: Sit to Stand Transfer Ashton Level: Sit->Stand: contact guard assist Assistive Device: Sit->Stand: 2 wheeled walker Skilled Rationale: Verbal cues, Hand placement, Positioning, Initiation and execution of task Skilled Intervention/Details: Sit->Stand: increased verbal cues for hand positions and sequencing Stand to Sit Transfer Ashton Level: Stand->Sit: contact guard assist Assistive Device: Stand->Sit: 2 wheeled walker Skilled Rationale: Controlled descent for sitting Skilled Intervention/Details: Stand->Sit: increased verbal cues for reach back for eccentric control Functional Mobility: Functional Mobility Ashton Level: Functional Mobility/Gait: contact guard assist Assistive [...] and pacing during activity. Outcome Score(s): CURRENT -[facility] Daily Activity Inpatient Short Form Putting on/Taking Off Lower Body Clothin - A Little Assistance Bathin - A Little Assistance Toiletin - A Little Assistance Putting on/Taking Off Upper Body Clothin - A Little Assistance Groomin - A Little Assistance Eatin - No Assistance CURRENT AM-[facility] Activity Raw Score: 19 CURRENT AM-PAC Activity [...] fishing with family and volunteering at the [employer]. Assessment & Plan: Андрей demonstrates good [...] Starr Londono - 06/15/2021 4:29 PM EDT [facility] is not expected to have any more bed availability to admit patients who have not already been accepted to [facility]. Can follow to see if patient is appropriate when beds become available (likely midnext week). Thank you for the referral, Vanessa Londono,PT [facility] Bark Grinder [phone] * JERRI Pratt/[facility] - 06/15/2021 2:54 PM EDT Hospital Medicine [...] been received to evaluate for admission to [facility] for Inpt. Rehab. Will review with PM&R physician and notify you of the determination. Thank you for the referral, Vanessa Londono,PT [facility] Bark Grinder [phone] * Madie Armas APRN-MARIA M - 06/15/2021 2:02 PM EDT [facility] Inpatient Diabetes Consults Progress Note [facility] Inpatient Diabetes Consult Service Progress Note Assessment [...] , for HFU in 2-4 weeks with CAREER TRANSITION SPECIALIST 4. Education: Discussed daily plan 5. Will review glucoses and discuss with Dr Mohan Thank you for allowing us to participate in your patient's care. If you have questions please checkon [employer], under IM Consult Serv, Endocrine/Diabetes, and call [...] is 34.94 kg/m . Bun/Creat/Cl/CO2/Glucose: --/--/--/--/147 (06/15 06) Lab Results Component Value Date CHOLESTEROL 90 [...] choice/pre-cert/transportation/medical stability Current Referrals and Status 1. [facility]-Xamm-wvjfdwx consult/review 2. SNF-referrals pending Medical team notified [...] of returning home with his spouse (works multimedia developer). Pt states he recently discharged from [facility] for one day to his parents' home (parents are retired) before [facility]. Pt states agreement to referrals to other SNFs in his area if IPR is not able to accept. SW extended time for SNF responses; no available SNF options at this time. Pt voices verbal agreement for SW to provide updates pt's spouse also regarding discharge plans. IPR consult requested. Await [facility] response & SNF responses. Pre-cert needed. Fide Harvey Grimes Enterprise Systems Architect Addendum 06/15 @ 8746: SW received call from Fatmata @ [facility] ([phone]).Facility confirmed ability to provide pt's labs (2x weekly, anticipate 1x weekly as of next week). Facility requests additional insurance information to confirm their facility is in-network with pt'sinsurance. Provided information; await facility response. SW to continue to follow. Addendum 06/15 @ 9832: SW received update from [facility] admissions; beds [...] up with his PCP, Dr. Henderson @ [facility]. She requested medical team be updated on pt's hip difficulty & inquired if further assessment available;SW notified physician. Pt's spouse in agreement with additional IPR referrals being sent to other area IPRs; referrals added. SW to continue to follow as needed. * BOBBI Friend - 06/15/2021 1:14 PM EDT I saw Андрей Nickerson at the [facility] on 06/15/2021. Subjective: Seen at bedside; sitting [...] Will follow Leon Skinner MD Attending Transplant Tool Shaper Set Up Operator * Anthony Mallory, PT - 06/15/2021 12:12 PM EDTSummary: PT Treatment Note Acute Physical Therapy Treatment Prior to Admission [facility] score(s): PRIOR LEVEL AM-PAC Mobility Raw Score: [...] acivities outside LOS Mobility Assessment/Intervention: Rolling/Turning Mobility Ashton Level: Rolling/Turning: (P) supervision Bed Features/Set-up: Rolling/Turning: (P) Head of bed elevated, Use of bed rail Skilled Rationale: (P) Initiation and execution of task, Cues for increased safety Supine to Sit Mobility Ashton Level: Supine->Sit: (P) stand-by assist Bed Features/Set-up: Supine->Sit: (P) Head of bed elevated, Use of bed rail Skilled Rationale: (P) Cues for increased safety, Initiation and execution of task, Technique of activity Transfer Assessment/Intervention: Sit to Stand Transfer Ashton Level: Sit->Stand: (P) contact guard assist Assistive Device: Sit->Stand: (P) 2 wheeled walker Skilled Rationale: (P) Cues for increased safety, Initiation and execution of task, Technique of activity, Upright gaze/neck extension Skilled Intervention/Details: Sit->Stand: (P) min VC for safety and hand position. Pt heavily relies on UE support for stand transition Stand to Sit Transfer Ashton Level: Stand->Sit: (P) minimum assist (75% patient effort) Skilled Rationale: (P) Cues for increased safety, Initiation and execution of task, Technique of activity, Hand placement, Sequencing, Positioning Skilled Intervention/Details: Stand->Sit: (P) VC for decent and safety with chair location Bed-Chair Transfer Ashton Level: Bed<->Chair: (P) contact guard assist Assistive Device: Bed<->Chair: (P) 2 wheeled walker Skilled Rationale: (P) Cues for increased safety, Technique of activity, Sequencing Gait/Functional Mobility Assessment/Intervention: Gait Assessment Ashton Level: Gait: (P) minimum assist (75% patient [...] hip pain. Stairs Assessment/Intervention: Outcome Score(s): CURRENT [facility] Basic Mobility Inpatient Short Form Turning over [...] 2 - A Lot of Assistance CURRENT [facility] Mobility Raw Score: (P) 18 CURRENT [facility] Mobility Functional Limitation/Modifier: (P) 46.58% Currently Impaired [...] PT Goals Plan of Care by Anthony Mallory, PT at 06/15/2021 12:05 PM Version 1 [...] goal of average po being 75-100%. 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 Андрей Nickerson is a 60 y.o. male admitted with encephalopathy. Pt unavailable and information obtained via chart review (Pt receiving care) Piggyback Clerk Screening Pt's appetite is fair. Pt with [...] of tia presented as a transfer from [facility] for confusion. Height: 177.8 cm (5' 10) [...] Occurrences: 1 Food Allergies reviewed:NKFA Cultural or Zoroastrianism Restrictions/Preferences: None indicated Skin Diomedes Score: 19 [...] intakes and weight trends. MARIA TERESA SantosR Pager:[phone] * Miriam Fernandez RN - 06/15/2021 9:40 AM EDT Progression of Care Note Expected Discharge Date: 06/18/2021 Medical Milestones Remaining: Medically ready Assessment and Discharge Plan as of 06/15/2021 9:41 AM Plan was discussed with medical team on this date. Anticipated discharge disposition: [facility] Facility Anticipated Services at Discharge: [facility], Occupational Therapy, Physical Therapy, Outpatient follow up [...] off Please call the Neurology Consult A production shift supervisor if with additional questions Michelle Ward DO Neurology, PGY-[address] Garcia. * MARISOL Bustillo - 06/14/2021 3:51 PM EDT Placement Plan Expected Discharge Date: 06/16/2021 Referred Level of Care: SNF Barriers: medical stability/pre-cert/facility acceptance/pt choice Current Referrals and Status SNF referrals-pending SW received update from CM that patient is in agreement with SNF referrals & does not want referral made to [facility]. Await facility responses. SW will continue to follow as needed. Fide DAMON-Elio [address] [place] [address] Enterprise Systems Architect * Miriam Fernandez RN - 06/14/2021 11:00 AM EDT Met with patient at bedside to discuss SNF. Patient was recently at [facility].He does not want to return to this facility. He is agreeable to new referrals. He understands that he may not be able to get a SNF in [place]. He stated that the last time we made referrals, [facility] was the only facility in [place] that would accept him. He would like us to stay as close to [place] as possible. SW notified. Patient also asked that we only call his spouse for updates and not call his parents, unless there is an emergency. KAYY Pineda, RN Clinical Glass Cleaner * JERRI Pratt/[facility] - 06/14/2021 10:30 AM EDT Hospital Medicine [...] last month vs something else ( opportunistic TRAINING DIRECTOR infection) - CT head outside reported no [...] 138/5.0/--/--/-- (06/14 613) Bun/Creat/Cl/CO2/Glucose: 28/2.62/112/19/112 (06/14 613-06/14 142) * Mirna Blackwood, PT - 06/13/2021 1:32 PM EDT Acute Physical Therapy Evaluation Prior to Admission [facility] score(s): PRIOR LEVEL AM-PAC Mobility Raw Score: 24 Current AM-PAC score(s): CURRENT AM-PAC Mobility Raw Score: 18 Based on the above AM-PAC score(s) and PT clinical judgment, patient is a good candidate for discharge to [facility] Facility Discharge Barriers: Patient needs assistance with [...] LEs Mobility Assessment: Supine to Sit Mobility Ashton Level: Supine->Sit: supervision Bed Features/Set-up: Supine->Sit: Flat [...] extension Transfer Assessment: Sit to Stand Transfer Ashton Level: Sit->Stand: minimum assist (75% patient effort) Assistive Device: Sit->Stand: 2 wheeled walker Skilled Rationale: Positioning, Sequencing, Hand placement, Verbal cues Skilled Intervention/Details: Sit->Stand: Cues for proper hand placement and transfer technique Gait/Functional Mobility: Gait Assessment Ashton Level: Gait: contact guard assist Physical Assist: [...] decreased step length Stairs: Outcome Score(s): CURRENT AM-PAC Basic Mobility Inpatient Short Form Turning over [...] railin - A Lot of Assistance CURRENT AM-[facility] Mobility Raw Score: 18 CURRENT AM-[facility] Mobility Functional Limitation/Modifier: 46.58% Currently Impaired in [...] Patient Assessment Completed: Yes Anticipated discharge disposition: [facility] Facility Reason for Admission: Encephalopathy Is the patient able to participate in the assessment?: Yes Information source: Patient, Review of Medical Record Information Source Name/Contact: Jordandawit Nickerson [phone] Demographics Verified and Updated: Yes Has the patient been admitted to any hospital in the last 30 days?: Transferred From Outside Hospital Advanced Care Planning Has the patient completed Advance Directives?: Not Completed Referral to Social Work for Advance Care Planning? : Patient Declines Legal Next of Kin Does the patient have a Guardian?: No Spouse: Yes Name and Contact information: Nalini Liya [phone] Adult Child(saritha), List All Adult Children: No Parent(s) - List All Living Parents: Yes Name and Contact information: Evi Nickerson [phone] Would you like to add additional parents?: Yes Name and Contact information: Dorita Nickerson [phone] Referral to Social Work to Identify Legal [...] Is the patient from a facility or long term?: No Patient lives with: Spouse or Partner [...] the patient on Anticoagulation? : No [id number] [place] [address] [address] [facility] [phone] [facility] [id number] [address] Does the patient or patient support representative express financial concerns? : No Employed?: Disabled Coping/Stress Concerns about patient s coping and stress?: No Concerns about patient s caregiver s coping and stress?: Unable to Assess Values and Beliefs Cultural or alevism practices that may impact discharge planning and/or medical care?: No Initial Discharge Planning Anticipated discharge disposition: [facility] Facility Transportation Available for Discharge: Family or Friend, Ambulance Anticipated DME: none Anticipated Services at Discharge: Physical Therapy, Occupational Therapy, [facility] Patient Assessment Completed: Yes Risk of Readmission: 11.9 Category Reference: High:16-100 Mod-High:10-16 Mod-Low: 5-10 Low: 0-5 Expected Discharge Date: 06/16/2021 Discharge Planning Summary Anticipate that Pt will discharge to a senior care facility. Case Management Plan 1. RX, PCP, [...] follow up with specialty physicians MARISOL Celis Glass Cleaner [phone] * JERRI Pratt/COLLINS - 06/13/2021 12:00 PM EDT [facility] Medicine Progress Note Patient: Андрей Nickerson, : [...] last month vs something else ( opportunistic TRAINING DIRECTOR infection) - CT head outside reported no [...] appropriate affect, tangential Data Review Bun/Creat/Cl/CO2/Glucose: --/--/--/--/180 (06/13 801) * Colleen Butt, WOJCIECH - 06/13/2021 10:40 AM EDT Acute Occupational Therapy Evaluation Prior to Admission AM-PAC Score: PRIOR LEVEL AM-PAC Activity Raw Score: 24 Current AM-PAC score(s): CURRENT AM-PAC Activity Raw Score: 19 Based on the above AM-PAC score(s) and OT clinical judgment, discharge destination recommendation is: [facility] Facility Discharge Barriers: Patient needs assistance with [...] needs assist Objective/Observation: Vitals/Vitals Responses to Treatment: WFL Vision Screen Currently wearing corrective lenses: Yes [...] bilat LE; abdomen Mobility Assessment: Rolling/Turning Mobility Ashton Level: Rolling/Turning: supervision Bed Features/Set-up: Rolling/Turning: Flat Skilled Rationale: Sequencing, Hand placement, Verbal cues Supine to Sit Mobility [place]hton Level: Supine->Sit: supervision Bed Features/Set-up: Supine->Sit: Flat Skilled Rationale: Sequencing, Hand placement, Verbal cues Transfer Assessment: Sit to Stand Transfer Ashton Level: Sit->Stand: minimum assist (75% patient effort) Skilled Rationale: Sequencing, Hand placement, Verbal cues Stand to Sit Transfer Ashton Level: Stand->Sit: contact guard assist Assistive Device: Stand->Sit: 2 wheeled walker Skilled Rationale: Positioning, Sequencing, Verbal cues, Hand placement Bed-Chair Transfer Ashton Level: Bed<->Chair: contact guard assist Assistive Device: Bed<->Chair: 2 wheeled walker, armed chair Skilled Rationale: Positioning, Sequencing, Hand placement, Verbal cues Functional Mobility: Functional Mobility Ashton Level: Functional Mobility/Gait: contact guard assist Assistive [...] door, then call the law and my president of the [place] 3)What would you do if you fell [...] glass houses should not throw stones. CURRENT -[facility] Daily Activity Inpatient Short Form Putting [...] current Occupational Therapy Discharge Summary. * JERRI Pratt/[facility] - 06/12/2021 1:26 PM EDT [facility] Medicine Progress Note Patient: Андрей Nickerson, : [...] last month vs something else ( opportunistic TRAINING DIRECTOR infection) - CT head outside reported no [...] affect, tangential Data Review WBC/Hgb/Hct/Plts: 5.97/12.0/37.0/185 (06/12 438) Na/K+/Phos/Mg/Ca: 139/4.4/2.3/1.5/10.7 (06/12 438) Bun/Creat/Cl/CO2/Glucose: 34/2.41/112/20/242 (06/12 438-06/12 1140) Ptt/Pt/Inr: 28.3/13.5/1.0 (06/12 1819) [facility] course Narrative* Darren George MD [...] during his recent hospital stay at [facility]. As you may know, Mr. Nickerson is [...] the patient's records can be obtained via [facility] [employer] at [email or web address] It has been my pleasure participating in [...] Center 06/24/2021 1:45 PM BOBBI Friend [id number] [facility] 10/25/2021 1:30 PM BOBBI Coates Meng, PhD [place] [address] Pharmacy mailorder: [facility] Sonya BRONSON [phone] Follow up Please contact this pharmacy for refills of pt's immunosuppressant medications. Medication List START taking these medications carveDILOL 12.5 MG TABS Commonly known as: COREG Take 1 tablet by mouth every 12 hours. * CUSTOM MEDICATION Please obtain weekly BMP and CBC for two weeks and fax results to Dr. Leon Skinner at [phone]. * CUSTOM MEDICATION Please obtain AM everolimus level prior to morning dose and fax to Dr. Leon Skinner at [phone] Start taking on: June 22, 2021 Everolimus [...] Your Medications These medications were sent to [facility] [address], [address] [address] Hours: Sunday through Sunday 8am to 9pm, Sunday and Sunday 9am to 6pm Everolimus 1 MG TABS You can get these medications from any pharmacy Bring a paper prescription for each of these medications CUSTOM MEDICATION CUSTOM MEDICATION [facility]* Nursing Notes - Florinda Massey RN - 06/21/2021 3:19 AM EDT Secure chat sent to 6 MD [place] - Desmond wilburn FYI - pt called out around 0210 [...] me to give dextrose? Florinda Massey RN [facility]03-22-2022 Miscellaneous Notes* Nursing Notes - Florinda Massey [...] RN * Plan of Care - Alden Urena PT - 06/20/2021 3:11 PM EDT Problem: [...] - 06/20/2021 8:43 AM EDT Андрей Nickerson ([id number]) PRE OPERATIVE DIAGNOSIS Status post kidney transplant [Z94.0] POST OPERATIVE DIAGNOSIS Post-Op Diagnosis Codes: * Status post kidney transplant [Z94.0] PROCEDURE PERFORMED Procedure(s) (LRB): CAPD REMOVAL (N/A) PRIMARY CLOSURE Yes INTRAOPERATIVE FINDINGS No significant abnormalities SURGEON Surgeon(s) and Role: * Unruly Diaz MD, PhD - Primary ANESTHESIOLOGIST Anesthesiologist: Jaylon Bennett MD, PhD Seconds Grader Assisting: Brissa Raines DO SURGICAL STAFF Community Engagement Leader: Sp Flanagan RN Scrub Person: Mary Holguin; [...] weeks or as instructed to do so. Mcdermitt will need to be removed 2 weeks post-operatively. The patient can reach out to the Transplant Surgery clinic with questions or concerns after discharge. Tiffanie Brown MD Department of General Surgery Pager: [phone] * Op Note - Unruly Diaz MD, PhD - 06/17/2021 12:00 PM EDT Operative Report DATE PERFORMED: 06/17/2021 PREOPERATIVE DIAGNOSIS: Status post kidney transplantation. No need for dialysis. POSTOPERATIVE DIAGNOSIS: Status post kidney transplantation. No need for dialysis. PROCEDURE: Removal of peritoneal dialysis catheter. ANESTHESIA: General. SURGEON(S): Unruly Diaz MD, PhD ELECTRON BEAM WELDER SETTER: Dr. Stephanie Moreno ESTIMATED BLOOD LOSS: Minimal. [...] MD, PhD Unruly Diaz MD, PhD ATTENDING AR/MedQ JOB: [id number] DOC: [id number] * Plan of Care - Peter Hickey [...] goal of average po being 75-100%. 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 * Plan of Care - [...] Outcome: Ongoing * Nursing Notes - Shalini Womack RN - 06/13/2021 8:56 AM EDT Messaged MD Murillo: pt BP this AM 188/89 MAP 128 HR 82, order says to notify if above 180, thanks * Nursing Notes - Ida Johnson RN - 06/12/2021 11:05 AM EDT Secure chatted Adrian Lwe there, this patient is complaining of severe itching on his back. Inoticed a rash this morning and forgot to mention it, and he has some on his right lateral/posterior thigh too. Can you do maybe a cream? Ida Johnson RN * Nursing Notes - Vivi Barron RN - 06/11/2021 11:47 PM EST On admission to [facility], from outside facility a dual RN initial [...] be discharge to home. [facility]* Plan of Care - Aldne Urena PT - 06/20/2021 3:11 PM EDT Problem: [...] for functional mobility. Outcome: Progressing Toward Goal [facility]03-21-2022 Note* Brief Op Note - Unruly Diaz MD, PhD - 06/20/2021 8:43 AM EDT Андрей Nickerson ([id number]) PRE OPERATIVE DIAGNOSIS Status post kidney transplant [Z94.0] POST OPERATIVE DIAGNOSIS Post-Op Diagnosis Codes: * Status post kidney transplant [Z94.0] PROCEDURE PERFORMED Procedure(s) (LRB): CAPD REMOVAL (N/A) PRIMARY CLOSURE Yes INTRAOPERATIVE FINDINGS No significant abnormalities SURGEON Surgeon(s) and Role: * Unruly Diaz MD, PhD - Primary ANESTHESIOLOGIST Anesthesiologist: Jaylon Bennett MD, PhD Seconds Grader Assisting: Brissa Raines DO SURGICAL STAFF Community Engagement Leader: Sp Flanagan RN Scrub Person: Mary Holguin; Shamir Ashley Resident Assisting: Tiffanie Brown MD COMPLICATIONS None ESTIMATED BLOOD LOSS Minimal SPECIMENS No specimen sent * No specimens in log * Unruly Diaz MD, PhD June 20, 2021 8:43 AM [facility] Work Phone: 1(211) 583-585503-18-2022 Note* Treatment Plan - Madie Armas APRN- MENDING CARRIER - 06/17/2021 3:00 PM EDT Patient was [...] to follow. DANIEL Herrera [facility] Nurse Surgical operation note* Awa Camacho RN - 06/17/2021 1:25 PM EDT VSS. Sats 98% on RA. Alert and oriented. abd dsgs D&I. No c/o pain or nausea. ASA PO given per order. Report to NATI Giles 10WR [facility]03-18-[facility] Nurse Note* Awa Camacho RN - 06/17/2021 1:25 PM EDT VSS. Sats 98% on RA. Alert and oriented. abd dsgs D&I. No c/o pain or nausea. ASA PO given per order. Report to NATI Giles 10WR documented in this encounter[facility] Note* Plan of Care - Tiffanie [...] Brown MD Department of General Surgery Pager: [phone] [facility]03-18-2022 Note* Op Note - Unruly Diaz MD, PhD - 06/17/2021 12:00 PM EDT Operative Report DATE PERFORMED: 06/17/2021 PREOPERATIVE DIAGNOSIS: Status post kidney transplantation. No need for dialysis. POSTOPERATIVE DIAGNOSIS: Status post kidney transplantation. No need for dialysis. PROCEDURE: Removal of peritoneal dialysis catheter. ANESTHESIA: General. SURGEON(S): Unruly Diaz MD, PhD ELECTRON BEAM WELDER SETTER: Dr. Stephanie Moreno ESTIMATED BLOOD LOSS: Minimal. [...] MD, PhD Unruly Diaz MD, PhD ATTENDING AR/MedSarika JOB: [id number] DOC: [id number] [facility]03-17-2022 Note* Plan of Care - Peter Hickey, [...] maximize functional performance. Outcome: Progressing Toward Goal [facility]03-16-2022 Note* Plan of Care - Anthony Mallory, [...] ROM, necessary for functional mobility. Outcome: Ongoing [facility] Note* Plan of Care - MARIA [...] goal of average po being 75-100%. 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 [facility]03-[facility] Note* Plan of Care - Diana [...] factors/behavior modification for fall/injury prevention Outcome: Ongoing [facility] Hospital Discharge instructions* Discharge Instructions* Claire Cabrales RN - 06/14/2021 8:39 AM EDT Patient Experience Survey Reminder You may receive a survey in the mail within a few weeks regarding your hospitalization. This helps us to improve the care and services we provide at [facility]. We truly appreciate you taking the time to fill this out. We particularly welcome any specific comments you may have (good or bad!) regarding [facility]at [facility] so that we may use them to continue to strive towards excellence for our patients. documented in this encounterU [facility] Consult note* Violet Joe MD - 06/14/2021 8:38 AM EDTAssociated Order(s): IP CONSULT TO ENDOCRINOLOGY - DIABETES [facility] Inpatient Diabetes Consults - Initial Consult Note [...] of d/c for definitive recs. Please see [employer]Tantalus Systemsalba,under IM Consult Serv Endocrine/Diabetes - Team 2 [...] care. If you have questions please checkon [employer], under IM Consult Serv, Endocrine/Diabetes, and call [...] 04/13/2021 NOT DETECTED NOT DETECTED Final Comment: [facility] Negative results do not preclude [...] 03/27/2021 NOT DETECTED NOT DETECTED Final Comment: [facility] Negative results do not preclude [...] 03/27/2021 NOT DETECTED NOT DETECTED Final Comment: [facility] Negative results do not preclude [...] needs new pump setting. Team will follow. [facility] Work Phone: 1(356) 275-493203-15-2022 Consult note* Violet Joe MD - 06/14/2021 8:38 AM EDTAssociated Order(s): IP CONSULT TO ENDOCRINOLOGY - DIABETES [facility] Inpatient Diabetes Consults - Initial Consult Note [...] of d/c for definitive recs. Please see [employer],under IM Consult Serv Endocrine/Diabetes - Team 2 [...] care. If you have questions please checkon [employer], under IM Consult Serv, Endocrine/Diabetes, and call [...] 04/13/2021 NOT DETECTED NOT DETECTED Final Comment: [facility] Negative results do not preclude [...] 03/27/2021 NOT DETECTED NOT DETECTED Final Comment: [facility] Negative results do not preclude [...] 03/27/2021 NOT DETECTED NOT DETECTED Final Comment: [facility] Negative results do not preclude [...] setting. Team will follow. * Michelle Ward, DO - 06/13/2021 8:34 AM EDTAssociated Order(s): IP CONSULT TO NEUROLOGY NEUROLOGY CONSULTATION NOTE Date of service: June 13, 2021 Patient Name: Андрей Nickerson Consulting Provider: JERRI Pratt/[facility] : 1960 Reason for consult: encephalopathy, male [...] admitted first to the hospital and then senior care facility. He also notessince discharge to his [...] History: Procedure Laterality Date KIDNEY TRANSPLANT W/O TUOLUMNE NEPHRECTOMY N/A 03/27/2021 Laterality: N/A; Surgeon: Sharon [...] capsules every evening. Take at 0800 AM [id number] PM. valGANciclovir 450 MG tablet No No [...] resident. Michelle Ward, DO PGY-4, Neurology [facility] Associated attestation - Saima Garcia MD [...] bedside he is disoriented to month (states May to me, January to resident), knows year and place. Able to conversefor 5 minutes on his thoughts on the situation in [facility]. Also discusses his history of hip [...] tacrolimus, surgery with exposure to anesthesia, and emt intermediate effects from renal dysfunction. Does not meet criteria for mci. Recommended mri brain, can add rpr and folate for reversible dementia labs, can follow up with neurocognitive clinic. We will follow up these studies. Saima Garcia MD Transmissions Systems Operator of Neurology * Obinna Villarreal MD - 06/12/2021 5:16 PM EDTAssociated Order(s): IP CONSULT TO NEPHROLOGY - TRANSPLANT I saw and independently evaluated the patient on 06/12/2021. I have discussed the case with the teamand formulated the plan of care with them and agree with the findings, examination and plan as documented in the note. Laura Wynn MD Transmissions Systems Operator of Clinical Medicine Pager - [phone] [facility] NEPHROLOGY INPATIENT CONSULT NOTE Reason for Consultation: IS managment Referring Provider: JERRI Pratt/[facility] Hospital Day: 1 SUBJECTIVE Андрей Nickerson is [...] Recent COVID19 infection Recommendations: No indication for ADJUNCT POLITICAL SCIENCE INSTRUCTOR; serum creatninen continue to trend downwards s/p [...] History: Procedure Laterality Date KIDNEY TRANSPLANT W/O TUOLUMNE NEPHRECTOMY N/A 03/27/2021 Laterality: N/A; Surgeon: Sharon Acuna MD; Location: [facility] MAIN OR CORONARY ANGIOPLASTY N/A 04/21/2011 Laterality: N/A; Surgeon: Ricardo Herman MD; Location: [facility] CATH CORONARY DRUG ELUTING STENT PLACEMENT N/A 04/21/2011 Laterality: N/A; Surgeon: Ricardo Herman MD; Location: [facility] CATH CORONARY STENT PLACEMENT 2005 x3 REMOVAL CATARACT (PEM) Family History: Family [...] Javier Valentino MD documented in this encounterOS[facility]* Plan of Care - Mirna [...] ROM, necessary for functional mobility. Outcome: Ongoing [facility]03-14-2022 Note* Plan of Care - Colleen Butt [...] energy and maximize functional performance. Outcome: Ongoing [facility]03-14-2022 Note* Nursing Notes - Shalini Womack RN - 06/13/2021 8:56 AM EDT Messaged MD Murillo: pt BP this AM 188/89 MAP 128 HR 82, order says to notify if above 180, thanks [facility] Consult note* Michelle Ward, DO - 06/13/2021 8:34 AM EDTAssociated Order(s): IP CONSULT TO NEUROLOGY NEUROLOGY CONSULTATION NOTE Date of service: June 13, 2021 Patient Name: Андрей Nickerson Consulting Provider: JERRI Pratt/[facility] : 1960 Reason for consult: encephalopathy, male [...] admitted first to the hospital and then senior care facility. He also notessince discharge to his [...] History: Procedure Laterality Date KIDNEY TRANSPLANT W/O TUOLUMNE NEPHRECTOMY N/A 03/27/2021 Laterality: N/A; Surgeon: Sharon [...] capsules every evening. Take at 0800 AM [id number] PM. valGANciclovir 450 MG tablet No No [...] resident. Michelle Ward, DO PGY-4, Neurology [facility] Associated attestation - Jose, Saima Leger [...] on his thoughts on the situation in [facility]. Also discusses his history of hip [...] tacrolimus, surgery with exposure to anesthesia, and fdc effects from renal dysfunction. Does not meet criteria for mci. Recommended mri brain, can add rpr and folate for reversible dementia labs, can follow up with neurocognitive clinic. We will follow up these studies. Saima Garcia MD Transmissions Systems Operator of Neurology [facility]03-13-2022 Consult note* Obinna Villarreal MD - 06/12/2021 5:16 PM EDTAssociated Order(s): IP CONSULT TO NEPHROLOGY - TRANSPLANT I saw and independently evaluated the patient on 06/12/2021. I have discussed the case with the teamand formulated the plan of care with them and agree with the findings, examination and plan as documented in the note. Laura Wynn MD Transmissions Systems Operator of Clinical Medicine Pager - [phone] [facility] NEPHROLOGY INPATIENT CONSULT NOTE Reason for Consultation: IS managment Referring Provider: JERRI Pratt/[facility] Hospital Day: 1 SUBJECTIVE Андрей Nickerson is [...] Recent COVID19 infection Recommendations: No indication for ADJUNCT POLITICAL SCIENCE INSTRUCTOR; serum creatninen continue to trend downwards s/p [...] History: Procedure Laterality Date KIDNEY TRANSPLANT W/O TUOLUMNE NEPHRECTOMY N/A 03/27/2021 Laterality: N/A; Surgeon: Sharon Acuna MD; Location: [facility] CORONARY ANGIOPLASTY N/A 04/21/2011 Laterality: N/A; Surgeon: Ricardo Herman MD; Location: [facility] CATH CORONARY DRUG ELUTING STENT PLACEMENT N/A 04/21/2011 Laterality: N/A; Surgeon: Ricardo Herman MD; Location: [facility] CATH CORONARY STENT PLACEMENT 2006 x3 REMOVAL [...] given his immunosuppressed state. Javier Valentino MD [facility] Work Phone: 1(267) 354-874303-13-2022 Note* Nursing Notes - Ida Johnson RN - 06/12/2021 11:05 AM EDT Secure chatted Dr. Murillo, [place] there, this patient is complaining of severe itching on his back. Inoticed a rash this morning and forgot to mention it, and he has some on his right lateral/posterior thigh too. Can you do maybe a cream? Ida Johnson RN [facility]03-12-2022 Note* Nursing Notes - Vivi Barron RN - 06/11/2021 11:47 PM EST On admission to [facility], from outside facility a dual RN initial assessment of skin condition was performed by Vivi Barron RN and Siobhan Almazan. Skin Assessment: Skin within defined limits:Yes Diomedes Score: 17 LDA Added:No Vivi Barron RN [facility]03-12-2022 History and physical note* Peter Gonzalez MD [...] is tangential, stating he didn't like his long-term. Denies cough, fever, chills. No burning or [...] History: Procedure Laterality Date KIDNEY TRANSPLANT W/O TUOLUMNE NEPHRECTOMY N/A 03/27/2021 Laterality: N/A; Surgeon: Sharon [...] capsules every evening. Take at 0800 AM [id number] PM. valGANciclovir 450 MG tablet Sig: Take [...] erythema Skin: No jaundice or rash Neuro: abattoir supervisor 3-7, 9-11 intact and equal. Strength grossly equal in muscle groups of the bilateral UEsand LEs. Psych: Ox3, appropriate affect and cognition Data Review [facility]03-12-[facility] Note* Certification - Peter Gonzalez MD - 06/11/2021 11:34 PM EST I certify that this patient requires inpatient services at this time. I anticipate the expected length of stay will include at least two midnights. Inpatient services are due to the following medicalconcerns encephalopathy. Plans for post hospitalization care will be discharge to home. [facility] History and physical note* Peter Gonzalez [...] is tangential, stating he didn't like his long-term. Denies cough, fever, chills. No burning or [...] History: Procedure Laterality Date KIDNEY TRANSPLANT W/O TUOLUMNE NEPHRECTOMY N/A 03/27/2021 Laterality: N/A; Surgeon: Sharon [...] capsules every evening. Take at 0800 AM [id number] PM. valGANciclovir 450 MG tablet Sig: Take [...] erythema Skin: No jaundice or rash Neuro: abattoir supervisor 3-7, 9-11 intact and equal. Strength grossly equal in muscle groups of the bilateral UEsand LEs. Psych: Ox3, appropriate affect and cognition Data Review [facility] History of Present illness Narrative* Munir [...] 19, 2021 3:39 PM [facility] Reason for visit Narrative* Auth/Cert Specialty Diagnoses / Procedures Referred By Jonathan shoemaker Referred To Contact Diagnoses AMS/Covid +, Renal Transplant 03/27/2021 Referral ID Status Reason Start Date Expiration Date Visits Re quested Visits Authorized [id number] 1 1 [facility] History of Past illness Narrative* Problem Noted Date Resolved Date Pseudophakia of left eye 03/16/2015 016 Pseudophakia, left eye 03/11/2015 5 Combined 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 04/26/2015 Type II or unspecified type diabetes mellitus with ophthalmic manifestations, not stated as uncontrolled(250.50) 07/28/2014 03/31/2015 Other and combined forms of senile cataract 12/0202/23/2015 Proliferative diabetic retinopathy(362.02) ([facility]) - Both Eyes 12/23/2013 02/07/2017 Diabetes mellitus type 2 in obese 07/25/2012 08/10/2015 documented as of this encounter (statuses as of 06/24/2021) [facility] History of Past illness Narrative* Problem [...] of this encounter (statuses as of 07/11/2021) [facility] History of Past illness Narrative* Problem [...] of this encounter (statuses as of 07/27/2021) [facility] of Past illness Narrative* Problem [...] of this encounter (statuses as of 08/09/2021) [facility] of Past illness Narrative* Problem Noted Date Resolved Date Pseudophakia of left eye 03/16/2015 016 Pseudophakia, left eye 03/11/2015 5 Combined 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 04/26/2015 Type II or unspecified type diabetes mellitus with ophthalmic manifestations, not stated as uncontrolled(250.50) 07/28/2014 03/31/2015 Other and combined forms of senile cataract 12/0202/23/2015 Proliferative diabetic retinopathy(362.02) ([facility]) - Both Eyes 12/23/2013 02/07/2017 Diabetes mellitus type 2 in obese 07/25/2012 08/10/2015 documented as of this encounter (statuses as of 08/18/2021) [facility]2015 History of Past illness Narrative* Problem Noted Date Resolved Date Pseudophakia of left eye 03/16/2015 016 Pseudophakia, left eye 03/11/2015 5 Combined 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 04/26/2015 Type II or unspecified type diabetes mellitus with ophthalmic manifestations, not stated as uncontrolled(250.50) 07/28/2014 03/31/2015 Other and combined forms of senile cataract 12/0202/23/2015 Proliferative diabetic retinopathy(362.02) (FORMERLY [facility]) - Both Eyes 12/23/2013 02/07/2017 Diabetes mellitus type 2 in obese 07/25/2012 08/10/2015 documented as of this encounter (statuses as of 08/18/2021) [facility]2015 History of Past illness Narrative* Problem Noted Date Resolved Date Pseudophakia of left eye 03/16/2015 016 Pseudophakia, left eye 03/11/2015 5 Combined 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 04/26/2015 Type II or unspecified type diabetes mellitus with ophthalmic manifestations, not stated as uncontrolled(250.50) 07/28/2014 03/31/2015 Other and combined forms of senile cataract 12/0202/23/2015 Proliferative diabetic retinopathy(362.02) (FORM[facility]LY [facility]) - Both Eyes 12/23/2013 02/07/2017 Diabetes mellitus type 2 in obese 07/25/2012 08/10/2015 documented as of this encounter (statuses as of 08/19/2021) [facility] History of Past illness Narrative* Problem Noted Date Resolved Date Pseudophakia of left eye 03/16/2015 016 Pseudophakia, left eye 03/11/2015 5 Combined 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 04/26/2015 Type II or unspecified type diabetes mellitus with ophthalmic manifestations, not stated as uncontrolled(250.50) 07/28/2014 03/31/2015 Other and combined forms of senile cataract 12/0202/23/2015 Proliferative diabetic retinopathy(362.02) (FORM[facility]LY [facility]) - Both Eyes 12/23/2013 02/07/2017 Diabetes mellitus type 2 in obese 07/25/2012 08/10/2015 documented as of this encounter (statuses as of 09/13/2021) [facility] History of Past illness Narrative* Problem Noted Date Resolved Date Pseudophakia of left eye 03/16/2015 016 Pseudophakia, left eye 03/11/2015 5 Combined 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 04/26/2015 Type II or unspecified type diabetes mellitus with ophthalmic manifestations, not stated as uncontrolled(250.50) 07/28/2014 03/31/2015 Other and combined forms of senile cataract 12/0202/23/2015 Proliferative diabetic retinopathy(362.02) ([facility]) - Both Eyes 12/23/2013 02/07/2017 Diabetes mellitus type 2 in obese 07/25/2012 08/10/2015 documented as of this encounter (statuses as of 09/13/2021) [facility] History of Past illness Narrative* Problem [...] of this encounter (statuses as of 09/23/2021) [facility] History of Past illness Narrative* Problem [...] of this encounter (statuses as of 09/29/2021) [facility] History of Past illness Narrative* Problem [...] of this encounter (statuses as of 10/04/2021) [facility] History of Past illness Narrative* Problem [...] of this encounter (statuses as of 10/07/2021) [facility] History of Past illness Narrative* Problem [...] of this encounter (statuses as of 10/11/2021) [facility] History of Past illness Narrative* Problem [...] of this encounter (statuses as of 10/27/2021) [facility] History of Past illness Narrative* Problem [...] of this encounter (statuses as of 11/07/2021) [facility] History of Past illness Narrative* Problem [...] of this encounter (statuses as of 11/10/2021) [facility] History of Past illness Narrative* Problem Noted Date Resolved Date Pseudophakia of left eye 03/16/2015 016 Pseudophakia, left eye 03/11/2015 5 Combined 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 04/26/2015 Type II or unspecified type diabetes mellitus with ophthalmic manifestations, not stated as uncontrolled(250.50) 07/28/2014 03/31/2015 Other and combined forms of senile cataract 12/0202/23/2015 Proliferative diabetic retinopathy(362.02) ([facility]) - Both Eyes 12/23/2013 02/07/2017 Diabetes mellitus type 2 in obese 07/25/2012 08/10/2015 documented as of this encounter (statuses as of 11/17/2021) [facility] History of Past illness Narrative* Problem Noted Date Resolved Date Pseudophakia of left eye 03/16/2015 016 Pseudophakia, left eye 03/11/2015 5 Combined 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 04/26/2015 Type II or unspecified type diabetes mellitus with ophthalmic manifestations, not stated as uncontrolled(250.50) 07/28/2014 03/31/2015 Other and combined forms of senile cataract 12/0202/23/2015 Proliferative diabetic retinopathy(362.02) ([facility]) - Both Eyes 12/23/2013 02/07/2017 Diabetes mellitus type 2 in obese 07/25/2012 08/10/2015 documented as of this encounter (statuses as of 12/12/2021) [facility] History of Past illness Narrative* Problem Noted Date Resolved Date Pseudophakia of left eye 03/16/2015 016 Pseudophakia, left eye 03/11/2015 5 Combined 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 04/26/2015 Type II or unspecified type diabetes mellitus with ophthalmic manifestations, not stated as uncontrolled(250.50) 07/28/2014 03/31/2015 Other and combined forms of senile cataract 12/0202/23/2015 Proliferative diabetic retinopathy(362.02) ([facility]) - Both Eyes 12/23/2013 02/07/2017 Diabetes mellitus type 2 in obese 07/25/2012 08/10/2015 documented as of this encounter (statuses as of 01/07/2022) [facility] History of Past illness Narrative* Problem [...] of this encounter (statuses as of 01/09/2022) [facility] History of Past illness Narrative* Problem [...] of this encounter (statuses as of 01/09/2022) [facility] History of Past illness Narrative* Problem [...] of this encounter (statuses as of 01/13/2022) [facility] History of Past illness Narrative* Problem [...] of this encounter (statuses as of 01/27/2022) [facility] History of Past illness Narrative* Problem [...] of this encounter (statuses as of 02/01/2022) [facility] History of Past illness Narrative* Problem [...] of this encounter (statuses as of 02/07/2022) [facility] History of Past illness Narrative* Problem [...] of this encounter (statuses as of 03/07/2022) [facility] History of Past illness Narrative* Problem [...] of this encounter (statuses as of 05/10/2022) [facility] History of Past illness Narrative* Problem Noted Date Resolved Date Pseudophakia of left eye 03/16/2015 016 Pseudophakia, left eye 03/11/2015 5 Combined 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 04/26/2015 Type II or unspecified type diabetes mellitus with ophthalmic manifestations, not stated as uncontrolled(250.50) 07/28/2014 03/31/2015 Other and combined forms of senile cataract 12/0202/23/2015 Proliferative diabetic retinopathy(362.02) ([facility]) - Both Eyes 12/23/2013 02/07/2017 Diabetes mellitus type 2 in obese 07/25/2012 08/10/2015 documented as of this encounter (statuses as of 05/11/2022) [facility] History of Past illness Narrative* Problem Noted Date Resolved Date Pseudophakia of left eye 03/16/2015 016 Pseudophakia, left eye 03/11/2015 5 Combined 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 04/26/2015 Type II or unspecified type diabetes mellitus with ophthalmic manifestations, not stated as uncontrolled(250.50) 07/28/2014 03/31/2015 Other and combined forms of senile cataract 12/0202/23/2015 Proliferative diabetic retinopathy(362.02) ([facility]) - Both Eyes 12/23/2013 02/07/2017 Diabetes mellitus type 2 in obese 07/25/2012 08/10/2015 documented as of this encounter (statuses as of 06/10/2022) [facility] History of Past illness Narrative* Problem Noted Date Resolved Date Pseudophakia of left eye 03/16/2015 016 Pseudophakia, left eye 03/11/2015 5 Combined 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 04/26/2015 Type II or unspecified type diabetes mellitus with ophthalmic manifestations, not stated as uncontrolled(250.50) 07/28/2014 03/31/2015 Other and combined forms of senile cataract 12/0202/23/2015 Proliferative diabetic retinopathy(362.02) ([facility]) - Both Eyes 12/23/2013 02/07/2017 Diabetes mellitus type 2 in obese 07/25/2012 08/10/2015 documented as of this encounter (statuses as of 06/12/2022) [facility] of Past illness Narrative* Problem [...] of this encounter (statuses as of 06/19/2022) [facility] History of Past illness Narrative* Problem [...] of this encounter (statuses as of 07/03/2022) [facility] History of Past illness Narrative* Problem [...] of this encounter (statuses as of 07/07/2022) [facility] History of Past illness Narrative* Problem [...] of this encounter (statuses as of 07/10/2022) [facility] History of Past illness Narrative* Problem [...] of this encounter (statuses as of 07/31/2022) [facility] History of Past illness Narrative* Problem [...] of this encounter (statuses as of 08/02/2022) [facility] History of Past illness Narrative* Problem [...] of this encounter (statuses as of 10/09/2022) [facility] History of Past illness Narrative* Problem [...] of this encounter (statuses as of 10/13/2022) [facility] History of Past illness Narrative* Problem [...] of this encounter (statuses as of 10/18/2022) [facility] History of Past illness Narrative* Problem [...] of this encounter (statuses as of 10/18/2022) [facility] History of Past illness Narrative* Problem Noted Date Diagnosed Date Resolved Date Pseudophakia of left eye 03/16/2015 Pseudophakia, left eye 03/11/201503/31 Combined 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 03/02/2004/26/2015 Type II or unspecified type diabetes mellitus with ophthalmic manifestations, not stated as uncontrolled(250.50) 07/28/2014 03/31/2015 Other and combined forms of senile cataract 12/23/2013 02/23/2015 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) ([facility]) - Both Eyes 12/23/2013 02/07/2017 Diabetes mellitus type 2 in obese 07/25/2012 08/10/2015 documented as of this encounter (statuses as of 11/03/2022) [facility] History of Past illness Narrative* Problem [...] of this encounter (statuses as of 11/08/2022) [facility] History of Past illness Narrative* Problem [...] of this encounter (statuses as of 11/30/2022) [facility] History of Past illness Narrative* Problem [...] of this encounter (statuses as of 12/26/2022) [facility] History of Past illness Narrative* Problem Noted Date Diagnosed Date Resolved Date Pseudophakia of left eye 03/16/2015 Pseudophakia, left eye 03/11/201503/31 Combined 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 03/02/2004/26/2015 Type II or unspecified type diabetes mellitus with ophthalmic manifestations, not stated as uncontrolled(250.50) 07/28/2014 03/31/2015 Other and combined forms of senile cataract 12/23/2013 02/23/2015 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) ([facility]) - Both Eyes 12/23/2013 02/07/2017 Diabetes mellitus type 2 in obese ([facility]) 07/25/2012 08/10/2015 documented as of this encounter (statuses as of 01/06/2023) [facility] History of Past illness Narrative* Problem Noted Date Diagnosed Date Resolved Date Pseudophakia of left eye 03/16/2015 Pseudophakia, left eye 03/11/201503/31 Combined 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 03/02/2004/26/2015 Type II or unspecified type diabetes mellitus with ophthalmic manifestations, not stated as uncontrolled(250.50) 07/28/2014 03/31/2015 Other and combined forms of senile cataract 12/23/2013 02/23/2015 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) ([facility]) - Both Eyes 12/23/2013 02/07/2017 Diabetes mellitus type 2 in obese ([facility]) 07/25/2012 08/10/2015 documented as of this encounter (statuses as of 01/17/2023) [facility] History of Past illness Narrative* Problem Noted Date Diagnosed Date Resolved Date Pseudophakia of left eye 03/16/2015 Pseudophakia, left eye 03/11/201503/31 Combined 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 03/02/2004/26/2015 Type II or unspecified type diabetes mellitus with ophthalmic manifestations, not stated as uncontrolled(250.50) 07/28/2014 03/31/2015 Other and combined forms of senile cataract 12/23/2013 02/23/2015 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) ([facility]) - Both Eyes 12/23/2013 02/07/2017 Diabetes mellitus type 2 in obese ([facility]) 07/25/2012 08/10/2015 documented as of this encounter (statuses as of 02/13/2023) [facility] History of Past illness Narrative* Problem Noted Date Diagnosed Date Resolved Date Pseudophakia of left eye 03/16/2015 Pseudophakia, left eye 03/11/201503/31 Combined 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 03/02/2004/26/2015 Type II or unspecified type diabetes mellitus with ophthalmic manifestations, not stated as uncontrolled(250.50) 07/28/2014 03/31/2015 Other and combined forms of senile cataract 12/23/2013 02/23/2015 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) ([facility]) - Both Eyes 12/23/2013 02/07/2017 Diabetes mellitus type 2 in obese ([facility]) 07/25/2012 08/10/2015 documented as of this encounter (statuses as of 03/04/2023) [facility] History of Past illness Narrative* Problem Noted Date Diagnosed Date Resolved Date Pseudophakia of left eye 03/16/2015 Pseudophakia, left eye 03/11/201503/31 Combined 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 03/02/20 15 04/26/2015 Type II or unspecified type diabetes mellitus with ophthalmic manifestations, not stated as uncontrolled(250.50) 07/28/2014 03/31/2015 Other and combined forms of senile cataract 12/23/2013 02/23/2015 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) ([facility]) - Both Eyes 12/23/2013 02/07/2017 Diabetes mellitus type 2 in obese ([facility]) 07/25/2012 08/10/2015 documented as of this encounter (statuses as of 05/07/2023) [facility] History of Past illness Narrative* Problem Noted Date Diagnosed Date Resolved Date Pseudophakia of left eye 03/16/2015 Pseudophakia, left eye 03/11/201503/31 Combined 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 03/02/2004/26/2015 Type II or unspecified type diabetes mellitus with ophthalmic manifestations, not stated as uncontrolled(250.50) 07/28/2014 03/31/2015 Other and combined forms of senile cataract 12/23/2013 02/23/2015 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) ([facility]) - Both Eyes 12/23/2013 02/07/2017 Diabetes mellitus type 2 in obese ([facility]) 07/25/2012 08/10/2015 documented as of this encounter (statuses as of 05/24/2023) [facility] History of Past illness Narrative* Problem Noted Date Diagnosed Date Resolved Date Pseudophakia of left eye 03/16/2015 Pseudophakia, left eye 03/11/201503/31 Combined 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 03/02/2004/26/2015 Type II or unspecified type diabetes mellitus with ophthalmic manifestations, not stated as uncontrolled(250.50) 07/28/2014 03/31/2015 Other and combined forms of senile cataract 12/23/2013 02/23/2015 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) ([facility]) - Both Eyes 12/23/2013 02/07/2017 Diabetes mellitus type 2 in obese 07/25/2012 08/10/2015 documented as of this encounter (statuses as of 05/30/2023) [facility] History of Past illness Narrative* Problem Noted Date Diagnosed Date Resolved Date Pseudophakia of left eye 03/16/2015 Pseudophakia, left eye 03/11/201503/31 Combined 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 03/02/2004/26/2015 Type II or unspecified type diabetes mellitus with ophthalmic manifestations, not stated as uncontrolled(250.50) 07/28/2014 03/31/2015 Other and combined forms of senile cataract 12/23/2013 02/23/2015 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) ([facility]) - Both Eyes 12/23/2013 02/07/2017 Diabetes mellitus type 2 in obese ([facility]) 07/25/2012 08/10/2015 documented as of this encounter (statuses as of 05/31/2023) [facility] Past [facility] Narrative* Problem [...] of this encounter (statuses as of 06/01/2023) [facility] Past [facility] Narrative* Problem [...] of this encounter (statuses as of 06/09/2023) [facility] Past illness Narrative* Problem [...] of this encounter (statuses as of 06/10/2023) [facility] Past illness Narrative* Problem [...] of this encounter (statuses as of 06/18/2023) [facility] Past [facility] Narrative* Problem [...] of this encounter (statuses as of 07/20/2023) [facility] Evaluation note* Diagnosis Onset Date Resolution Status Essential hypertension chron ic Essential hypertension chron ic History of coronary artery stent placement April chronic Hyperlipidemia chronic Kidney transplant recipient [facility] Work Phone: 1(674) 697-757001-20-2012 Evaluation note* Diagnosis Onset Date Resolution Status Venous insufficiency chronic RAZO (dyspnea on exertion) [place] Essential hypertension chron ic History of coronary artery stent placement April chronic Hyperlipidemia chronic Kidney transplant recipient chronic Venous insufficiency chronic Venous insufficiency [facility] Work Phone: Evaluation note* Diagnosis Encephalopathy- Primary Encephalopathy, unspecified Other complication of kidney transplant Altered mental status, unspecified altered mental status type Anemia (Low HGB) Anemia, unspecified Renal disease (High Serum Creatinine) Unspecified disorder of kidney and ureter Electrolyte disorder (K, Cl, or Na) Electrolyte and fluid disorders not elsewhere classified [facility] Kid[facility] by transplant- Primary Long-term use of immunosuppressant medication Encounter for long-term (current) use of other medications Abnormal blood chemistry Other abnormal blood chemistry High risk medication use Encounter for long-term (current) use of other medications Immunosuppressed status Unspecified disorder of immune mechanism Aftercare following organ transplant Other general symptoms and signs [facility] Status post kidney transplant- Primary Kidney replaced by transplant Hospital discharge follow-up Other follow-up examination Right hip pain Pain in joint, pelvic region and thigh 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) Essential hypertension Unspecified essential hypertension Hypercholesteremia Pure [facility]ch[facility]olemia [facility] Di[facility], unspecified type- [facility] Diarrhea, unspecified type- Primary [...] leg edema Edema [facility] Physical deconditioning- Primary Debility, unspecified Right hip pain Pain in joint, pelvic region and thigh [facility] Status post kidney transplant- Primary Kidney replaced by transplant Hip pain Pain in joint, pelvic region and thigh Chronic pain of both knees Balance disorder Other symptoms involving nervous and musculoskeletal systems [facility] Onset Date Resolution Status Presence of peritoneal dialysis catheter acute Essential hypertension chron ic DEION (acute kidney injury) re solved Complication of insulin pump resolved Diabetes chronic Obesity chronic Presence of insulin pump chr onic Insulin pump titration resol skip [facility] Work Phone: Evaluation note* Diagnosis Onset Date Resolution Status Presence of peritoneal dialysis catheter acute Essential hypertension chron ic DEION (acute kidney injury) re solved Complication of insulin pump resolved Diabetes chronic Obesity chronic Presence of insulin pump chr onic Insulin pump titration resol skip Essential hypertension chron ic History of coronary artery stent placement April chronic Hyperlipidemia chronic Kidney transplant recipient chronic [facility] Work Phone: Evaluation note* Diagnosis Status post kidney transplant- Primary Kidney replaced by transplant Chronic pain of both knees Balance disorder Other symptoms involving nervous and musculoskeletal systems Hip pain Pain in joint, pelvic region and thigh [facility] Diagnosis Status post kidney transplant- Primary Kidney replaced by transplant Chronic pain of both knees Balance disorder Other symptoms involving nervous and musculoskeletal systems Hip pain Pain in joint, pelvic region and thigh [facility] this [facility] Diagnosis Status post kidney transplant- Primary Kidney replaced by transplant Chronic pain of both knees Balance disorder Other symptoms involving nervous and musculoskeletal systems Hip pain Pain in joint, pelvic region and thigh [facility] this [facility] Diagnosis Status post kidney transplant- Primary Kidney replaced by transplant Chronic pain of both knees Balance disorder Other symptoms involving nervous and musculoskeletal systems Hip pain Pain in joint, pelvic region and thigh [facility] this 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 Abnormal blood chemistry Other abnormal blood chemistry Follow-up examination following treatment with high-risk medication Follow-up examination following completed treatment with high-risk medications, not elsewhere classified [facility] Onych[facility]osis- Primary Dermatophytosis of nail Pain in toe of left foot Pain in limb Pain in toe of right foot Pain in limb Other diabetic neurological complication associated with type 2 diabetes mellitus (HCC) Venous insufficiency Unspecified venous (peripheral) insufficiency documented in this encounter [facility]* Diagnosis Primary open angle glaucoma (POAG) of right eye, mild stage- Primary Primary open angle glaucoma (POAG) of left eye, mild stage 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) Pseudophakia of both eyes Lens replaced by other means [facility] Status post [facility]- Primary Kidney replaced by transplant Hip pain Pain in joint, pelvic region and thigh Chronic pain of both knees Balance disorder Other symptoms involving nervous and musculoskeletal systems [facility] Primary open angle glaucoma [...] Hypercholesteremia Pure hypercholesterolemia documented in this encounter [facility] [facility]* Diagnosis Primary open angle glaucoma [...] eye, mild stage [facility] Diagnosis Splenomegaly- Primary Primary open angle glaucoma (POAG) of right eye, mild stage [facility] Hyperopia, bilateral- Primary Regular astigmatism, bilateral Pseudophakia Lens replaced by other means Primary open angle glaucoma (POAG) of right eye, mild stage [facility] Diagnosis Status post eye surgery- Primary Other states following surgery of eye and adnexa [facility] noteNo assessment information availableWThe [facility] Work Phone: Evaluation note* Diagnosis Status post eye surgery- Primary Other states following surgery of eye and adnexa Primary open angle glaucoma (POAG) of both eyes, mild stage [facility] Diagnosis Acute dehydration- Primary Encounter for immunization Need for other specified prophylactic vaccination against single bacterial disease Status post kidney transplant Kidney replaced by transplant Essential hypertension Unspecified essential hypertension 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) Diarrhea, unspecified type [facility] Diagnosis Onychomycosis- Primary Dermatophytosis of nail Pain in toe of left foot Pain in limb Pain in toe of right foot Pain in limb Other diabetic neurological complication associated with type 2 diabetes mellitus (HCC) [facility] Diagnosis Essential hypertension- Primary Unspecified essential hypertension URI, acute Acute upper respiratory infections of unspecified site Status post kidney transplant Kidney replaced by transplant 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) Hypercholesteremia Pure hypercholesterolemia Bilateral leg edema Edema Obesity, Class II, BMI 35-39.9 Obesity, unspecified [facility] Diagnosis Hypercholesteremia Pure hypercholesterolemia [facility]* Diagnosis Onychomycosis- Primary Dermatophytosis of nail Pain in toe of left foot Pain in limb Pain in toe of right foot Pain in limb Other diabetic neurological complication associated with type 2 diabetes mellitus (HCC) [facility] Diagnosis Primary open angle glaucoma (POAG) of right eye, mild stage- Primary Primary open angle glaucoma (POAG) of left eye, mild stage Optic cupping of both 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) [facility] Diagnosis Left hand pain- Primary Pain in limb Fall, sequela [facility]* Diagnosis Other complication of kidney transplant- Primary [facility] Diagnosis Primary open angle glaucoma (POAG) of right eye, mild stage- Primary Primary open angle glaucoma (POAG) of left eye, mild stage Optic cupping of both 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* Diagnosis 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)- Primary Secondary diabetes mellitus with other specified manifestations, not stated as uncontrolled, or unspecified [facility] this [facility]* Diagnosis Skin ulcer of toe of right foot with fat layer exposed (HCC)- Primary Diminished pulses in lower extremity Other symptoms involving cardiovascular system Diabetic mononeuropathy associated with diabetes mellitus due to underlying condition (HCC) [facility]* Diagnosis Skin ulcer of toe of right foot with fat layer exposed (HCC)- Primary Diabetic mononeuropathy associated with diabetes mellitus due to underlying condition (HCC) Hammertoe of right foot [facility]* Diagnosis Skin ulcer of toe of [...] of lower leg [facility] Diagnosis Skin ulcer of toe of right foot with fat layer exposed (HCC)- Primary Hammertoe of right foot Venous insufficiency Unspecified venous (peripheral) insufficiency Diabetic mononeuropathy associated with diabetes mellitus due to underlying condition (HCC) [facility]* Diagnosis Onset Date Resolution Status Diabetes mellitus type 1 chr onic Neuropathy chronic Obesity chronic Presence of insulin pump chr onic [facility] Work Phone: Evaluation note* Diagnosis Onset Date Resolution Status Diabetes mellitus type 1 chr onic Neuropathy chronic Obesity chronic Presence of insulin pump chr onic Venous insufficiency chronic [facility] Work Phone: Evaluation note* Diagnosis Skin ulcer of toe of right foot with fat layer exposed (HCC)- Primary Hammertoe of right foot Venous insufficiency Unspecified venous (peripheral) insufficiency Venous stasis dermatitis Varicose veins of lower extremities with inflammation [facility] Diagnosis Onset Date Resolution Status Diabetes mellitus type 1 chr onic Neuropathy chronic Obesity chronic Presence of insulin pump chr onic Venous insufficiency chronic RAZO (dyspnea on exertion) ac marion Essential hypertension chron ic History of coronary artery stent placement April, 2011 chronic Hyperlipidemia chronic Kidney transplant recipient chronic Venous insufficiency chronic [facility] Work Phone: Evaluation note* Diagnosis LVH (left ventricular hypertrophy)- Primary Cardiomegaly Aortic dilatation (HCC) Aortic ectasia, unspecified site [facility]* Diagnosis Venous insufficiency- Primary Unspecified venous (peripheral) insufficiency [facility]* Diagnosis Acute non-recurrent sinusitis, unspecified location- Primary [facility]* Diagnosis NORBERTO (obstructive sleep apnea)- Primary Obstructive sleep apnea (adult) (pediatric) documented [facility]* Diagnosis Bilateral leg edema- Primary Edema [...] Unspecified essential hypertension [facility]* Diagnosis COPD with exacerbation (HCC)- Primary Obstructive chronic bronchitis with exacerbation [facility] Diagnosis Venous insufficiency- Primary Unspecified venous (peripheral) insufficiency Onychomycosis Dermatophytosis of nail Pain in toe of left foot Pain in limb Pain in toe of right foot Pain in limb Diabetic polyneuropathy associated with type 2 diabetes mellitus (HCC) [facility] this [facility]* Diagnosis Primary open angle glaucoma (POAG) of right eye, mild stage- Primary Primary open angle glaucoma (POAG) of left eye, mild stage Optic cupping of both eyes 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) Essential hypertension Unspecified essential hypertension Hypercholesteremia Pure hypercholesterolemia [facility]* Diagnosis Kidney replaced by transplant- Primary Aftercare following organ transplant Immunosuppressed status Unspecified disorder of immune mechanism Abnormal blood chemistry Other abnormal blood chemistry [facility] Acute non-recurrent sinusitis, unspecified location- Primary [facility]* Diagnosis Primary open angle glaucoma (POAG) of right eye, mild stage- Primary Primary open angle glaucoma (POAG) of left eye, mild stage Optic cupping of both eyes 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) Essential hypertension Unspecified essential hypertension Hypercholesteremia Pure hypercholesterolemia [facility]* Diagnosis Onychomycosis- Primary Dermatophytosis of nail Pain in toe of left foot Pain in limb Pain in toe of right foot Pain in limb Diabetic polyneuropathy associated with type 2 diabetes mellitus (HCC) [facility]* Diagnosis Chronic midline low back pain without sciatica- Primary Need for influenza vaccination Need for prophylactic vaccination and inoculation against influenza Lumbar paraspinal muscle spasm Other symptoms referable to back Chronic midline low back pain without sciatica Lumbar paraspinal muscle spasm Other symptoms referable to back [facility] Diagnosis Chronic midline low back pain without sciatica Lumbar paraspinal muscle spasm Other symptoms referable to back [facility] Diagnosis Left hand pain Pain in limb [facility]* Diagnosis Right hip pain Pain in joint, pelvic region and thigh [facility] Diagnosis Degeneration of intervertebral disc of lumbar region with discogenic back pain- Primary [facility] Diagnosis Degeneration of intervertebral disc of lumbar region with discogenic back pain- Primary [facility] Diagnosis Degeneration of intervertebral disc of lumbar region with discogenic back pain- Primary Chronic midline low back pain without sciatica [facility] Diagnosis Enteritis due to Rotavirus- Primary Enteritis due to rotavirus [facility] Diagnosis Onychomycosis- Primary Dermatophytosis of nail Pain in toe of left foot Pain in limb Pain in toe of right foot Pain in limb Diabetic polyneuropathy associated with type 2 diabetes mellitus (HCC) Venous insufficiency Unspecified venous (peripheral) insufficiency [facility] Diagnosis Primary open angle glaucoma [...] Hypercholesteremia Pure hypercholesterolemia [facility]* Diagnosis Fatigue, unspecified type- Primary [...] pain without sciatica [facility] Diagnosis Onychomycosis- Primary Dermatophytosis of nail Pain in toe of left foot Pain in limb Pain in toe of right foot Pain in limb Diabetic polyneuropathy associated with type 2 diabetes mellitus (HCC) Venous insufficiency Unspecified venous (peripheral) insufficiency Nevus Benign neoplasm of skin, site unspecified [facility] Diagnosis Essential hypertension- Primary Unspecified [...] Other B-complex deficiencies [facility] Diagnosis Primary open angle glaucoma (POAG) of right eye, mild stage- Primary Primary open angle glaucoma (POAG) of left eye, mild stage Optic cupping of both eyes 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 your kidney numbers are stable from previous. Stool studies obtained negative for C. difficile or any enteropathic pathogens. Continue oral fluids for hydration. Use loperamide as needed. Follow-up with your doctor. Return if any worsening symptoms.[facility] Work Phone: Hospital Discharge instructions Additional Instructions 1. Recommend buying compression hose thigh-high. 2. Recommend elevating your feet above your nose during the day when you are not walking. 3. Recommend putting 1-2 bricks at the 40 of bed to help decrease the swelling. [facility] Work Phone: Reason for referral (narrative)* Consultation (Routine) - New Request Specialty Diagnoses / Procedures Referred By Jonathan t Referred To Contact Psychiatry Diagnoses Encephalopathy Jase Murillo MB/BEVERLY [address] [place] [address] Referral ID Status Reason Start Date Expiration Date V isits Requested Visits Authorized [id number] New Request 06/15/2021 07/10/2022 1 1 * (Routine) - Pending Review Specialty Diagnoses / Procedures Referred By Contpatrick t Referred To Contact Procedures PLATELET MONITORING PER PROTOCOL Peter Gonzalez MD [address] [place] [address] Referral ID Status Reason Start Date Expiration Date V isits Requested Visits Authorized [id number] Pending Review 06/12/2021 07/07/2022 1 1 * (Routine) - Pending Review Specialty Diagnoses / Procedures Referred By Contpatrick t Referred To Contact Procedures DVT/VTE RISK ASSESSMENT Peter Gonzalez MD [address] [place] [address] Referral ID Status Reason Start Date Expiration Date V isits Requested Visits Authorized [id number] Pending Review 06/12/2021 07/07/2022 1 1 [facility] for referral (narrative)* Diagnostic Procedure Only (Routine) - Pending Review Specialty Diagnoses / Procedures Referred By Contac t Referred To Contact US IMAGING Diagnoses Splenomegaly Procedures US ABDOMEN LTD US ABDOMINAL REAL TIME W/IMAGE LIMITED Handy Henderson DO [address] [place] [address] Us Imaging Referral ID Status Reason Start Date Expiration Date Visits Requested Visits Authorized [id number] Pending Review Auto-Generat ed Referral 07/10/2022 02/08/2023 1 1 [facility] for referral (narrative)* Diagnostic Procedure Only (Routine) - Closed Specialty Diagnoses / Procedures Referred By Contac t Referred To Contact XR IMAGING Diagnoses Left hand pain Procedures XR HAND GENERAL 3V PA/LAT/OBL LEFT RADEX HAND MINIMUM 3 VIEWS Tara Carballo APRN.MENDING CARRIER [address] [place] [address] X[facility] Imaging Referral ID Status Reason Start Date Expiration Date V isits Requested Visits Authorized [id number] Closed Auto-Generate d Referral 07/24/2022 08/23/2023 1 1 * Consult, Test, Treat (Routine) - Pending Review Specialty Diagnoses / Procedures Referred By Contac t Referred To Contact Orthopedics Diagnoses Left hand pain Procedures CONSULT TO ORTHOPAEDICS OFFICE/OUTPATIENT [facility] MDM 60-74 MINUTES Tara Carballo, BRUSHER MACHINE.[employer]ENDING CARRIER [address] [place] [address] Referral ID Status Reason Start Date Expiration Date Visits Requested Visits Authorized [id number] Pending Review PCP Requested Referral 07/24/2022 07/24/2023 1 1 [facility] for referral (narrative)* Outpatient Procedure (Routine) - Authorized Specialty Diagnoses / Procedures Referred By Contac t Referred To Contact [facility] Diagnoses Skin ulcer of toe of right foot with fat layer exposed (HCC) Diminished pulses in lower extremity Procedures PVR ANK PRESS NOEL VAS LAB NON-INVAS PHYSIOLOGIC STD EXTREMITY ART 2 LEVEL Triny [address] [place] [address] [facility] [place] [address] [place] [address] Referral ID Status Reason Start Date Expiration Date Visits Requested Visits Authorized [id number] Authorized Auto-Generat ed Referral 11/28/2022 11/28/2023 1 1 * Diagnostic Procedure Only (Routine) - Closed Specialty Diagnoses / Procedures Referred By Contac t Referred To Contact XR IMAGING Diagnoses Skin ulcer of toe of right foot with fat layer exposed (HCC) Procedures XR FOOT GENERAL 3V AP/LAT/OBL RIGHT RADEX FOOT COMPLETE MINIMUM 3 VIEWS [place] [address] Xr Imaging [facility] Referral ID Status Reason Start Date Expiration Date V isits Requested Visits Authorized [id number] Closed Auto-Generate d Referral 11/28/2022 12/28/2023 1 1 [facility] for referral (narrative)* Diagnostic Procedure Only (Routine) - Closed Specialty Diagnoses / Procedures Referred By Contac t Referred To Contact XR IMAGING Diagnoses Skin ulcer of toe of right foot with fat layer exposed (HCC) Diabetic mononeuropathy associated with diabetes mellitus due to underlying condition (HCC) Procedures XR TOE AP/LAT/OBL RIGHT RADEX TOE MINIMUM 2 VIEWS Triny Palmer[address] [place] [address] [place] [address] Referral ID Status Reason Start Date Expiration Date V isits Requested Visits Authorized [id number] Closed Auto-Generate d Referral 12/25/2022 01/24/2024 1 1 [facility] for referral (narrative)* Outpatient Procedure (Routine) - Authorized Specialty Diagnoses / Procedures Referred By Usamaac t Referred To Contact [facility] Diagnoses Swelling of lower leg Procedures US VENOUS INCOMPETENCY NOEL VAS LAB DUP-SCAN XTR VEINS COMPLETE BILATERAL STUDY Triny Palmer [address] [place] [address] [facility] [place] [address] [place] [address] Referral ID Status Reason Start Date Expiration Date Visits Requested Visits Authorized [id number] Authorized Auto-Generat ed Referral 01/16/2024 1 1 [facility] for referral (narrative)* Diagnostic Procedure Only (Routine) - Closed Specialty Diagnoses / Procedures Referred By Jonathan t Referred To Contact XR IMAGING Diagnoses Hammertoe of right foot Procedures XR TOE AP/LAT/OBL RIGHT RADEX TOE MINIMUM 2 VIEWS Triny Palmer [address] [address] [place] [address] Referral ID Status Reason Start Date Expiration Date V isits Requested Visits Authorized [id number] Closed Auto-Generate d Referral 03/01/2023 03/30/2024 1 1 * Consult, Test, Treat (Routine) - Authorized Specialty Diagnoses / Procedures Referred By Usamaac t Referred To Contact Vascular Surgery Diagnoses Venous insufficiency Procedures CONSULT TO VASCULAR SURGERY OFFICE/OUTPATIENT NEW HIGH MDM 60-74 MINUTES Summer Garcia, DPM [address] [place] [address] Referral ID Status Reason Start Date Expiration Date Visits Requested Visits Authorized [id number] Authorized PCP Requested Referral 05/30/2023 1 1 [facility] for referral (narrative)* Diagnostic Procedure Only (Routine) - Closed Specialty Diagnoses / Procedures Referred By Contac t Referred To Contact XR IMAGING Diagnoses Chronic midline low back pain without sciatica Lumbar paraspinal muscle spasm Procedures XR THORACIC GENERAL 3V AP/LAT/SWIMMERS RADEX SPINE THORACIC 3 VIEWS Handy Henderson, DO [address] [place] [address] [place] [address] Referral ID Status Reason Start Date Expiration Date V isits Requested Visits Authorized [id number] Closed Auto-Generate d Referral 12/11/2023 01/09/2025 1 1 [facility] for referral (narrative)* Diagnostic Procedure Only (Routine) - Closed Specialty Diagnoses / Procedures Referred By Contac t Referred To Contact XR IMAGING Diagnoses Left hand pain Procedures XR HAND GENERAL 3V PA/LAT/OBL LEFT RADEX HAND MINIMUM 3 VIEWS Tara Carballo APRN.MENDING CARRIER [address] [place] [address] [place] [address] Referral ID Status Reason Start Date Expiration Date V isits Requested Visits Authorized [id number] Closed Auto-Generate d Referral 07/24/2022 08/23/2023 1 1 [facility] for referral (narrative)* Diagnostic Procedure Only (Routine) - Closed Specialty Diagnoses / Procedures Referred By Contac t Referred To Contact XR IMAGING Diagnoses Right hip pain Procedures XR HIP GENERAL 3V PELV/AP/LAT RIGHT RADEX HIP UNILATERAL WITH PELVIS 2-3 VIEWS Handy Henderson, DO [address] [place] [address] [place] [address] Referral ID Status Reason Start Date Expiration Date V isits Requested Visits Authorized [id number] Closed Auto-Generate d Referral 04/19/2021 05/19/2022 1 1 [facility] for referral (narrative)No reason for referral information availableWThe [facility] Narrative* Diagnostic Procedure Only (Routine) - Closed Specialty Diagnoses / Procedures Referred By Contac t Referred To Contact XR IMAGING Diagnoses Chronic midline low back pain without sciatica Lumbar paraspinal muscle spasm Procedures XR THORACIC GENERAL 3V AP/LAT/SWIMMERS RADEX SPINE THORACIC 3 VIEWS Handy Henderson, DO [address] [place] [address] [place] [address] Referral ID Status Reason Start Date Expiration Date V isits Requested Visits Authorized [id number] Closed Auto-Generate d Referral 12/11/2023 01/09/2025 1 1 [facility] for visit Narrative* Diagnostic Procedure Only (Routine) - Closed Specialty Diagnoses / Procedures Referred By Contac t Referred To Contact XR IMAGING Diagnoses Left hand pain Procedures XR HAND GENERAL 3V PA/LAT/OBL LEFT RADEX HAND MINIMUM 3 VIEWS Tara Carballo APRN.MENDING CARRIER [address] [place] [id number] [place] [address] Referral ID Status Reason Start Date Expiration Date V isits Requested Visits Authorized [id number] Closed Auto-Generate d Referral 07/24/2022 08/23/2023 1 1 [facility] for visit Narrative* Diagnostic Procedure Only (Routine) - Closed Specialty Diagnoses / Procedures Referred By Contac t Referred To Contact XR IMAGING Diagnoses Right hip pain Procedures XR HIP GENERAL 3V PELV/AP/LAT RIGHT RADEX HIP UNILATERAL WITH PELVIS 2-3 VIEWS Handy Henderson, DO [address] [place] [address] [place] [address] Referral ID Status Reason Start Date Expiration Date V isits Requested Visits Authorized [id number] Closed Auto-Generate d Referral 04/19/2021 05/19/2022 1 1 [facility] Summary Purpose Family History No Family [...] Documents on File Type Date Recorded Patient Growth Hacker Expl anation Advance Directive(s) 02/18/2021 8:55 AM Advance Directive(s) 09/16/2019 7:53 AM Advance Directive(s) 08/27/2019 11:04 AM Advance Directive(s) 10/08/2018 6:48 AM Latest Code Status on File Code Status Date Activated Date Inactivated Comments Full Code 06/12/2021 1:50 AM Full Code 03/27/2021 12:25 AM 06/12/2021 1:50 AM Documents on File Type Date Recorded Patient Growth Hacker Expl anation Advance Directive(s) 02/18/2021 8:55 AM Advance Directive(s) 09/16/2019 7:53 AM Advance Directive(s) 08/27/2019 11:04 AM Advance Directive(s) 10/08/2018 6:48 AM Advance Directive Response Recorded Date/ Time Advance Directives No March 10:33am Living Will No June 10, 2021 8:40am Power of Supervisor Boarding No June 10 8:40am Advance Directive Response Recorded Date/ Time Advance Directives No March 10:33am Living Will No January 30 10:19am Power of Supervisor Boarding No January 30, 2022 10:19am Advance Directive Response Recorded Date/ Time Advance Directives No March 9:33am Living Will No January 30 9:19am Power of Supervisor Boarding No January 30, 2022 9:19am Latest Code Status on File Code Status Date Activated Date Inactivated Comments Full Code 06/12/2021 1:50 AM Code Status History Code Status Date Activated Date Inactivated Comments Full Code 03/27/2021 12:25 AM 06/12/2021 1:50 AM Advance Directive Response Recorded Date/ Time Advance Directives No March 9:33am Living Will No July 19, 2022 11:41am Power of Supervisor Boarding No July 19 11:41am Advance Directive Response Recorded Date/ Time Advance Directives No March 9:33am Living Will No April 25 12:51pm Power of Supervisor Boarding No April 25, 2023 12:51pm Advance Directive Response Recorded Date/ Time Advance Directives on File No June 20, 2023 9:21am Advance Directives No June 20, 024 7:19am Living Will No June 21, 2023 7:19am Power of Supervisor Boarding No June 20 7:19am Date Activated Date Inactivated Comments 06/12/2021 1:50 AM Date Activated Date Inactivated Comments 03/27/2021 12:25 AM 06/12/2021 1:50 AM Advance Directive Response Recorded Date/ Time Living Will No June 21, 2023 7:19am Do you have a Healthcare Power of Supervisor Boarding? No June 21, 2023 7:19am Advance Directives No June 20 024 7:19am Reason for Referral Specialty Diagnoses / Procedures Referred By Jonathan shoemaker Referred To Contact Orthopedics Diagnoses Right hip pain Procedures CONSULT TO ORTHOPAEDICS OFFICE/OUTPATIENT [facility] MDM 60-74 MINUTES Maya Salas APRN.MENDING CARRIER [address] [place] [address] Referral ID Status Reason Start Date Expiration Date Visits Requested Visits Authorized [id number] Pending Review PCP Requested Referral 07/11/2021 07/11/2022 1 1 Specialty Diagnoses / Procedures Referred By Jonathan shoemaker Referred To Contact [facility] Diagnoses Status post kidney transplant Hip pain Chronic pain of both knees Balance disorder Procedures CONSULT TO PHYSICAL THERAPY PHYSICAL THERAPY EVALUATION HIGH COMPLEX 45 MINS Handy Henderson, DO [address] [place] [address] [facility] [place] [address] [place] [address] Referral ID Status Reason Start Date Expiration Date Visits Requested Visits Authorized [id number] Pending Review Auto-Generat ed Referral 08/17/2021 08/17/2022 1 1 Specialty Diagnoses / Procedures Referred By Contac t Referred To Contact Cardiology Diagnoses LVH (left ventricular hypertrophy) Aortic dilatation (HCC) Procedures CONSULT TO CARDIOLOGY OFFICE/OUTPATIENT [facility] 60 MINUTES HendersonHandy Ana Luisa, DO [address] [place] [address] Referral ID Status Reason Start Date Expiration Date Visits Requested Visits Authorized [id number] Authorized PCP Requested Referral 05/24/2023 05/23/2024 1 1 Specialty Diagnoses / Procedures Referred By Contac t Referred To Contact Diagnoses Chronic midline low back pain without sciatica Lumbar paraspinal muscle spasm HendersonHandy Ana Luisa, DO [address] [place] [address] Referral ID Status Reason Start Date Expiration Date V isits Requested Visits Authorized [id number] Pending Review 12/11/2023 02/09/2024 1 1 Specialty Diagnoses / Procedures Referred By Contac t Referred To Contact XR IMAGING Diagnoses Chronic midline low back pain without sciatica Lumbar paraspinal muscle spasm Procedures XR THORACIC GENERAL 3V AP/LAT/SWIMMERS RADEX SPINE THORACIC 3 VIEWS HendersonHandy Ana Luisa, DO [address] [place] [address] [place] [address] Referral ID Status Reason Start Date Expiration Date V isits Requested Visits Authorized [id number] Closed Auto-Generate d Referral 12/11/2023 01/09/2025 1 1 Specialty Diagnoses / Procedures Referred By Contac t Referred To Contact XR IMAGING Diagnoses Chronic midline low back pain without sciatica Lumbar paraspinal muscle spasm Procedures XR LUMBAR GENERAL 3V AP/LAT/L5-S1 RADEX SPINE LUMBOSACRAL 2/3 VIEWS Henderson Handy Orosco, DO [address] [place] [address] [place] [address] Referral ID Status Reason Start Date Expiration Date V isits Requested Visits Authorized [id number] Closed Auto-Generate d Referral 12/11/2023 01/09/2025 1 1 Specialty Diagnoses / Procedures Referred By Contac t Referred To Contact [facility] Diagnoses Degeneration of intervertebral disc of lumbar region with discogenic back pain Chronic midline low back pain without sciatica Procedures CONSULT TO PHYSICAL THERAPY PHYSICAL THERAPY EVALUATION HIGH COMPLEX 45 MINS Handy Henderson DO [address] [place] [address] [facility] [place] [address] [place] [address] Referral ID Status Reason Start Date Expiration Date Visits Requested Visits Authorized [id number] Pending Review Auto-Generat ed Referral 4 01/16/2025 1 1 Specialty Diagnoses / Procedures Referred By Contac t Referred To Contact Pain Management Diagnoses Degeneration of intervertebral disc of lumbar region with discogenic back pain Procedures CONSULT TO PAIN MGT OFFICE/OUTPATIENT [facility] MDM 60 MINUTES Elisa Andre PA-C [address] [place] [address] Referral ID Status Reason Start Date Expiration Date Visits Requested Visits Authorized [id number] Authorized PCP Requested Referral 4 01/14/2025 1 1 Chief Complaint and Reason for Visit Chief Complaint PRISON LABWORK LAB WORK PRISON LABWORK PRISON LAB WORK 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 CATHETER REMOVAL hyperglycemia kidney issues ENCEPHALOPATHY, POSSIBLE ACCIDENTAL OVERDOSE ENCEPHALOPATHY, POSSIBLE ACCIDENTAL OVERDOSE ENCEPHALOPATHY, POSSIBLE ACCIDENTAL OVERDOSE RS FROM 07/18/21 Reason for Visit Presence of peritone al dialysis catheter Essential hypertension DEION (acute kidney injury) Complication of insulin pump Diabetes Obesity Presence of insulin pump Insulin pump titration Chief Complaint LAB WORK PRISON LABWORK PRISON LAB WORK 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 CATHETER REMOVAL hyperglycemia kidney [...] placement Hyperlipidemia Kidney transplant recipient Chief Complaint PRISON LABWORK PRISON LAB WORK 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 DATE CREATED AUTHOR AUTHOR'S ORGANIZ ATION 09/09/2024 [facility] DATE CREATED AUTHOR AUTHOR'S ORGANIZ ATION 09/25/2024 [facility] Scheduled Active and Recently Administ ered Medications (unrecognized section and content) Medication Order 06/19/2021 06/20/2021 06/21/2021 atorvastatin (LIPITOR) tablet 40 mg 40 mg, Oral, DAILY, First dose on 06/12/21 at 0900, Until Discontinued 0753 (Given - Provider: Marjan Bowie RN) 09 (Given - Provider: Sasha Rivera RN) 0743 (Given - Provider: Lyudmila Rios RN) carveDILOL (COREG) tablet 12.5 mg 12.5 mg, Oral, EVERY 12 HOURS, First dose on Sun06/13/21 at 0915, Until Discontinued, 0753 (Given - Provider: Marjan Bowie RN)2111 (Given - Provider: Keysha Figueroa RN) 09 (Given - Provider: Sasha Rivera RN)2029 (Given - Provider: Florinda Massey RN) 0745 (Given - Provider: Lyudmila Rios RN) clopidogrel (PLAVIX) tablet 75 mg 75 mg, Oral, DAILY, First dose on 06/12/21 at 0900, Until Discontinued 075 (Given - Provider: Marjan Bowie RN) 09 (Given - Provider: Sasha Rivera RN) 0744 (Given - Provider: Lyudmila Rios RN) Epclusa (sofosbuvir-velpatasvir ) 400-100 mg tab PATIENT SUPPLY 1 tablet, Oral, DAILY, First dose on 06/12/21 at 1000, Until Discontinued, Notify prescriber if [...] Keysha Figueroa RN)211 (Given - Provider: Keysha Figueroa, RN) 0905 (Given - Provider: Sasha Rivera RN) everolimus (ZORTRESS) tablet 3 mg 3 mg, Oral, EVERY 12 HOURS NON-STANDARD, First dose (after last modification) on Sun06/20/21 at 2000, Until Discontinued, Swallow tablet whole; do not spilt, crush, or chew. Contact pharmacy if alternative route needed. 2030 (Given - Provider: Florinda Massey RN) 0744 (Given - Provider: Lyudmila Rios, NATI) heparin injection 5,000 Units 5,000 Units, Subcutaneous, EVERY 8 HOURS (0800/1600/2200), First dose on Sun06/18/21 at 1600, Until Discontinued 0818 (Given - Provider: Marjan Bowie RN)1702 (Given - Provider: Sade Saleh RN)211 (Given - Provider: Keysha Figueroa, RN) 0906 (Given - Provider: Sasha Rivera RN)1618 (Given - Provider: Sasha Rivera RN)2257 (Given - Provider: Florinda Massey, NATI) 0744 (Given - Provider: Lyudmila Rios, NATI)1600 (Canceled Entry - Provider: System Discharge - [...] HOURS, First dose (after last modification) on 06/19/21 at 1700, Until Discontinued, Do not mix in syringe with other insulins. 1702 (Given - Provider: Sade Saleh RN) insulin [...] Bowie RN)1823 (Given - Provider: Sade Saleh RN)212 (Not Given - Provider: Keysha Figueroa RN - Reason: Order Parameters not met) 09 (Given - Provider: Sasha Rivera RN)1200 (Canceled Entry - Provider: Zee Marshall, NORAH-MENDING CARRIER - Comment: Automatically canceled at discontinue of medication order) mycophenolate mofetil (CELLCEPT) capsule 500 mg 500 mg, Oral, EVERY 12 HOURS NON-STANDARD, First dose on 06/12/21 at 0900, Until Discontinued, ---MEDICATION EXPOSURE PRECAUTIONS--- Do not split, break, crush or open this medication. Contact pharmacy if altered route or dose is needed. 0753 (Given - Provider: Marjan Bowie RN)211 (Given - Provider: Keysha Figueroa RN) 09 (Given - Provider: Sasha Rivera RN)2029 (Given - Provider: Florinda Massey RN) 0744 (Given - Provider: Lyudmila Rios RN) prednisoLONE acetate (PRED FORTE) 1 % ophthalmic suspension 1 drop 1 drop, Both Eyes, 2 TIMES DAILY, First dose on 06/12/21 at 0900, Until Discontinued, Shake well prior to use. 0756 (Given - Provider: Marjan Bowie RN)1702 (Given - Provider: Sade Saleh RN) 09 (Given - Provider: Sasha Rivera RN)1618 (Given - Provider: Sasha Rivera RN) 0744 (Given - Provider: Lyudmila Rios RN) senna (SENOKOT) tablet 8.6 mg 8.6 mg, Oral, DAILY, First dose on 06/12/21 at 0900, Until Discontinued 075 (Given - Provider: Marjan Bowie RN) 09 (Given - Provider: Sasha Rivera RN) 0744 (Given - Provider: Lyudmila Rios RN) sulfamethoxazole-trimet [...] pump(Linked Group 1) Subcutaneous, CONTINUOUS, Starting on Sun06/20/21 at 1115, Until Sun06/21/21 at 1627, -Prescribing [...] Oral, EVERY 6 HOURS NEEDED, Starting on 06/13/21 at 0903, Until Sun06/21/21 at 1627, Other, [...] glucose is greater than 200mg/dl, then notify [employer]. And BLOOD GLUCOSE (POC DEVICE) (CANCELED) Routine, [...] at 1112, Until Specified
Who to Notify: [employer] Builder [employer]icer
For all Blood Glucose LESS THAN 80 mg/dl, notify [employer] after treatment per Hypoglycemia in Non- Adults [...] glucose is greater than 200md/dl, then notify [employer]. And BLOOD GLUCOSE (POC DEVICE) (CANCELED) Routine, [...] at 0149, Until Specified
Who to Notify: [employer] Builder [employer]icer
For all Blood Glucose LESS THAN 80 mg/dl, notify [employer] after treatment per Hypoglycemia in Non- Adults [...] Care Teams (unrecognized sec tion and content) Skin Lap Bonder Relationship Specialty Start Date End Date Handy Henderson DO PCP - General Family Medicine 06/30/20 Diego Rodriguez MD [address] [place] [address] Consulting Physician Cardiovascular Medicine 04/21/11 Peter Leon MD [address] [facility] [address] [place] [address] Consulting Physician Endocrinology, Diabetes & Metabolism 04/21/11 Skin Lap Bonder Relationship Specialty Start Date End Date Handy Henderson DO [address] [place], [place] [address] PCP - General Family Practice 10/09/20 Rosario Cardenas I DO [address] [facility] [address] [place], [place] [address] Referring Nephrology 04/15/18 Javier Licona [address] [facility] [address] [place] [phone] Physician Endocrinology 04/15/18 Abad Garrett (Hist) [address] [place], [place] [address] Physician Cardiology 04/15/18 Skin Lap Bonder Relationship Specialty Start Date End Date Santiago DO Handy PCP - General Family Medicine 06/30/20 Diego Rodriguez MD [address] [place] [address] [id number] Consulting Physician Cardiovascular Medicine 04/21/11 Peter Leon MD [address] [facility] [address] [place] [address] Consulting Physician Endocrinology, Diabetes & Metabolism 04/21/11 Skin Lap Bonder Relationship Specialty Start Date End Date Handy Henderson, DO [address] [place] [address] PCP - General Family Practice 10/09/20 Rosario Cardenas I, DO [address] [place] [address] [place] [address] Referring Nephrology 04/15/18 Javier Licona J [address] [place] [address] [place] [address] Physician Endocrinology 04/15/18 Abad Garrett (Hist) [address] [place] [address] Physician Cardiology 04/15/18 Skin Lap Bonder Relationship Specialty Start Date End Date Handy Henderson, DO [address] [place] [address] PCP - General Family Practice 10/09/20 Rosario Cardenas I, DO [address] [place] [address] [place] [address] Referring Nephrology 04/15/18 Javier Licona J [address] [place] [address] [place] [address] Physician Endocrinology 04/15/18 Abad Garrett (Hist) [address] [place] [address] Physician Cardiology 04/15/18 Skin Lap Bonder Relationship Specialty Start Date End Date Handy Henderson, DO [address] [place] [address] PCP - General Family Practice 10/09/20 Rosario Cardenas I, DO [address] [place] [address] [place] [address] Referring Nephrology 04/15/18 Javier Licona [address] [place] [address] [place] [address] Physician Endocrinology 04/15/18 Abad Garrett (Hist) [address] [place] [address] Physician Cardiology 04/15/18 Skin Lap Bonder Relationship Specialty Start Date End Date Handy Henderson, DO [address] [place] [address] PCP - General Family Practice 10/09/20 Rosario Cardenas I, DO [address] [place] [address] [place] [address] Referring Nephrology 04/15/18 Javier Licona [address] [place] [place] [address] Physician Endocrinology 04/15/18 Abad Garrett (Hist) [address] [place] [address] Physician Cardiology 04/15/18 Skin Lap Bonder Relationship Specialty Start Date End Date Handy Henderson, DO [address] [place] [address] PCP - General Family Practice 10/09/20 Rosario Cardenas I, DO [address] [place] [address] [place] [address] Referring Nephrology 04/15/18 Javier Licona [address] [place] [address] [place] [address] Physician Endocrinology 04/15/18 Abad Garrett (Hist) [address] [place] [address] Physician Cardiology 04/15/18 Skin Lap Bonder Relationship Specialty Start Date End Date Handy Henderson, DO [address] [place] [address] PCP - General Family Practice 10/09/20 Rosario Cardenas I, DO [address] [place] [address] [place] [address] Referring Nephrology 04/15/18 Javier Licona [address] [place] [address] [place] [address] Physician Endocrinology 04/15/18 Abad Garrett (Hist) [address] [place] [address] Physician Cardiology 04/15/18 Skin Lap Bonder Relationship Specialty Start Date End Date Handy Henderson, DO [address] [place] [address] PCP - General Family Practice 10/09/20 Rosario Cardenas I, DO [address] [place] [address] [place] [address] Referring Nephrology 04/15/18 Javier Licona [address] [place] [place] [address] Physician Endocrinology 04/15/18 Abad Garrett (Hist) [address] [place] [address] Physician Cardiology 04/15/18 Skin Lap Bonder Relationship Specialty Start Date End Date Handy Henderson, DO [address] [place] [address] PCP - General Family Practice 10/09/20 Rosario Cardenas I, DO [address] [place] [address] [place] [address] Referring Nephrology 04/15/18 Javier Licona [address] [place] [place] [address] Physician Endocrinology 04/15/18 Abad Garrett (Hist) [address] [place] [address] Physician Cardiology 04/15/18 Skin Lap Bonder Relationship Specialty Start Date End Date Handy Henderson, DO [address] [place] [address] PCP - General Family Practice 10/09/20 Rosario Cardenas I, DO [address] [place] [address] [place] [address] Referring Nephrology 04/15/18 Javier Licona [address] [place] [place] [address] Physician Endocrinology 04/15/18 Abad Garrett (Hist) [address] [place] [address] Physician Cardiology 04/15/18 Skin Lap Bonder Relationship Specialty Start Date End Date Handy Henderson, DO [address] [place] [address] PCP - General Family Practice 10/09/20 Rosario Cardenas I, DO [address] [place] [address] [place] [address] Referring Nephrology 04/15/18 Javier Licona [address] [place] [place] [address] Physician Endocrinology 04/15/18 Abad Garrett (Hist) [address] [facility] [place] [address] Physician Cardiology 04/15/18 Skin Lap Bonder Relationship Specialty Start Date End Date Handy Henderson, DO [address] [place] [address] PCP - General Family Practice 10/09/20 Rosario Cardenas I DO [address] [facility] [address] [place] [address] Referring Nephrology 04/15/18 [facility] J [address] [facility] [address] [place] [address] Physician Endocrinology 04/15/18 Abad Garrett (Hist) [address] [place] [address] Physician Cardiology 04/15/18 Skin Lap Bonder Relationship Specialty Start Date End Date Handy Henderson DO PCP - General Family Medicine 06/30/20 Diego Rodriguez MD [address] [place] [address] Consulting Physician Cardiovascular Medicine 04/21/11 Peter Leon MD [address] [place] [address] Consulting Physician Endocrinology, Diabetes & Metabolism 04/21/11 Skin Lap Bonder Relationship Specialty Start Date End Date Handy Henderson, DO [address] [place] [address] PCP - General Family Practice 10/09/20 Rosario Cardenas I, DO [address] [place] [address] [place] [address] Referring Nephrology 04/15/18 Javier Licona [address] [place] [place] [address] Physician Endocrinology 04/15/18 Abad Garrett (Hist) [address] [place] [address] Physician Cardiology 04/15/18 Skin Lap Bonder Relationship Specialty Start Date End Date Handy Henderson, DO [address] [place] [address] PCP - General Family Practice 10/09/20 Rosario Cardenas I, DO [address] [place] [address] [place] [address] Referring Nephrology 04/15/18 Javier Licona [address] [place] [place] [address] Physician Endocrinology 04/15/18 Abad Garrett (Hist) [address] [place] [address] Physician Cardiology 04/15/18 Skin Lap Bonder Relationship Specialty Start Date End Date Handy Henderson, DO [address] [place] [address] PCP - General Family Medicine 10/09/20 Rosario Cardenas I, DO [address] [place] [address] [place] [address] Referring Nephrology 04/15/18 Javier Licona [address] [place] [place] [address] Physician Endocrinology 04/15/18 Abad Garrett (Hist) [address] [place] [address] Physician Cardiology 04/15/18 Skin Lap Bonder Relationship Specialty Start Date End Date Handy Henderson, DO [address] [place] [address] PCP - General Family Medicine 10/09/20 Rosario Cardenas I, DO [address] [place] [address] [place] [address] Referring Nephrology 04/15/18 Javier Licona [address] [place] [address] Physician Endocrinology 04/15/18 Abad Garrett (Hist) [address] [place] [address] Physician Cardiology 04/15/18 Skin Lap Bonder Relationship Specialty Start Date End Date Handy Henderson, DO [address] [place] [address] PCP - General Family Medicine 10/09/20 Rosario Cardenas I, DO [address] [place] [address] [place] [address] Referring Nephrology 04/15/18 Javier Licona [address] [place] [place] [address] Physician Endocrinology 04/15/18 Abad Garrett (Hist) [address] [place] [address] Physician Cardiology 04/15/18 Skin Lap Bonder Relationship Specialty Start Date End Date Handy Henderson, DO [address] [place] [address] PCP - General Family Medicine 10/09/20 Rosario Cardenas I, DO [address] [place] [address] [place] [address] Referring Nephrology 04/15/18 Javier Licona [address] [place] [place] [address] Physician Endocrinology 04/15/18 Abad Garrett (Hist) [address] [place] [address] Physician Cardiology 04/15/18 Skin Lap Bonder Relationship Specialty Start Date End Date Handy Henderson, DO [address] [place] [address] PCP - General Family Medicine 10/09/20 Rosario Cardenas I, DO [address] [place] [address] [place] [address] Referring Nephrology 04/15/18 Javier Licona [address] [place] [address] Physician Endocrinology 04/15/18 Abad Garrett (Hist) [address] [place] [address] Physician Cardiology 04/15/18 Skin Lap Bonder Relationship Specialty Start Date End Date Handy Henderson, DO [address] [place] [address] PCP - General Family Medicine 10/09/20 Rosario Cardenas I, DO [address] [place] [address] [place] [address] Referring Nephrology 04/15/18 Javier Licona [address] [place] [address] Physician Endocrinology 04/15/18 Abad Garrett (Hist) [address] [place] [address] Physician Cardiology 04/15/18 Skin Lap Bonder Relationship Specialty Start Date End Date Handy Henderson, DO [address] [place] [address] PCP - General Family Medicine 10/09/20 Rosario Cardenas I, DO [address] [place] [address] [place] [address] Referring Nephrology 04/15/18 Javier Licona [address] [place] [address] Physician Endocrinology 04/15/18 Abad Garrett (Hist) [address] [place] [address] Physician Cardiology 04/15/18 Skin Lap Bonder Relationship Specialty Start Date End Date Handy Henderson, DO [address] [place] [address] PCP - General Family Medicine 10/09/20 Rosario Cardenas I, DO [address] [place] [address] [place] [address] Referring Nephrology 04/15/18 Javier Licona [address] [place] [address] Physician Endocrinology 04/15/18 Abad Garrett (Hist) [address] [place] [address] Physician Cardiology 04/15/18 Skin Lap Bonder Relationship Specialty Start Date End Date Handy Henderson DO [address] [place] [address] PCP - General Family Medicine 10/09/20 Rosario Cardenas I, DO [address] [place] [address] [place] [address] Referring Nephrology 04/15/18 Javier Licona J [address] [place] [address] Physician Endocrinology 04/15/18 Abad Garrett E [address] [place] [address] Physician Cardiology 04/15/18 Skin Lap Bonder Relationship Specialty Start Date End Date Handy Henderson DO [address] [place] [address] PCP - General Family Medicine 10/09/20 Rosario Cardenas I, DO [address] [place] [address] [place] [address] Referring Nephrology 04/15/18 Javier Licona J [address] [place] [address] Physician Endocrinology 04/15/18 Abad Garrett E [address] [place] [address] Physician Cardiology 04/15/18 Team Status: Active Member Role Status Dates Dr. Handy Henderson DO Family Provider Active Dr. Handy Henderson DO Primary Care Provider Active Team Status: Inactive Member Role Status Dates Dr. Handy Henderson DO Primary Care Provider, Referr ing Provider Active Gabi Lieberman CAREER TRANSITION SPECIALIST, CAREER TRANSITION SPECIALIST-C Attending Provider Active Team Status: Inactive Member Role Status Dates Dr. Handy Henderson , DO Primary Care Provider, Referr ing Provider Active ANJUM Stewart Attending Provider Active Team Status: Inactive Member Role Status Dates Dr. Handy Henderson , Primary Care Provider Active Dr. Troy Vega DO Attending Provider, Emergency Provide r Active Team Status: Inactive Member Role Status Dates Dr. Handy Henderson , DO Primary Care Provider Active Dr. Seth Low MD Attending Provider, Referring Provi vanessa Active Skin Lap Bonder Relationship Specialty Start Date End Date Handy Henderson, DO [address] [place] [address] PCP - General Family Medicine 10/09/20 Rosario Cardenas I, DO [address] [place] [address] [place] [address] Referring Nephrology 04/15/18 Javier Licona [address] [place] [address] Physician Endocrinology 04/15/18 Abad Garrett [address] [place] [address] Physician Cardiology 04/15/18 Skin Lap Bonder Relationship Specialty Start Date End Date Handy Henderson, DO [address] [place] [address] PCP - General Family Medicine 10/09/20 Rosario Cardenas I, DO [address] [place] [address] [place] [address] Referring Nephrology 04/15/18 Javier Licona [address] [place] [address] Physician Endocrinology 04/15/18 Abad Garrett [address] [place] [address] Physician Cardiology 04/15/18 Skin Lap Bonder Relationship Specialty Start Date End Date Handy Henderson, DO [address] [place] [address] PCP - General Family Medicine 10/09/20 Rosario Cardenas I, DO [address] [place] [address] Referring Nephrology 04/15/18 Javier Licona [address] [place] [address] Physician Endocrinology 04/15/18 Abad Garrett E [address] [place] [address] Physician Cardiology 04/15/18 Skin Lap Bonder Relationship Specialty Start Date End Date Handy Henderson, DO [address] [place] [address] PCP - General Family Medicine 10/09/20 Rosario Cardenas I, DO [address] [place] [address] Referring Nephrology 04/15/18 Javier Licona [address] [place] [address] Physician Endocrinology 04/15/18 Abad Garrett E [address] [place] [address] Physician Cardiology 04/15/18 Skin Lap Bonder Relationship Specialty Start Date End Date Handy Henderson, DO [address] [place] [address] PCP - General Family Medicine 10/09/20 Rosario Cardenas I, DO [address] [place] [address] Referring Nephrology 04/15/18 Javier Licona [address] [place] [address] Physician Endocrinology 04/15/18 Abad Garrett [address] [place] [address] Physician Cardiology 04/15/18 Skin Lap Bonder Relationship Specialty Start Date End Date Handy Henderson, DO [address] [place] [address] PCP - General Family Medicine 10/09/20 Rosario Cardenas I DO [address] [facility] [address] [place] [address] Referring Nephrology 04/15/18 Javier Licona [address] [facility] 201 [place] [address] Physician Endocrinology 04/15/18 Abad Garrett [address] [place], [place] [address] Physician Cardiology 04/15/18 Skin Lap Bonder Relationship Specialty Start Date End Date Handy Henderson DO [address] [facility] 2nd [place] [address] PCP - General Family Medicine 06/30/20 Diego Rodriguez MD [address] [place] [address] Consulting Physician Cardiovascular Disease 04/21/11 Peter Leon MD [address] [facility] 2nd [place] [address] Consulting Physician Endocrinology, Diabetes & Metabolism 04/21/11 Skin Lap Bonder Relationship Specialty Start Date End Date Handy Henderson DO [address] [facility] [place] [address] PCP - General Family Medicine 10/09/20 Rosario Cardenas I, [address] [place] [address] Referring Nephrology 04/15/18 Javier Licona [address] [place] [address] Physician Endocrinology 04/15/18 Abad Garrett [address] [place], [place] [address] Physician Cardiology 04/15/18 Skin Lap Bonder Relationship Specialty Start Date End Date Handy Henderson DO [address] [facility] [place] [address] PCP - General Family Medicine 10/09/20 Rosario Cardenas I, DO [address] [place] [address] Referring Nephrology 04/15/18 Javier Licona [address] [place] [address] Physician Endocrinology 04/15/18 Abad Garrett [address] [place] [address] Physician Cardiology 04/15/18 Skin Lap Bonder Relationship Specialty Start Date End Date Handy Henderson DO [address] [place] [address] PCP - General Family Medicine 10/09/20 Rosario Cardenas I, DO [address] [place] [address] Referring Nephrology 04/15/18 Javier Licona [address] [place] [facility] [address] [place] [address] Physician Endocrinology 04/15/18 Abad Garrett [address] [place] [address] Physician Cardiology 04/15/18 Skin Lap Bonder Relationship Specialty Start Date End Date Handy Henderson DO [address] [place] [address] PCP - General Family Medicine 10/09/20 Rosario Cardenas I, DO [address] [facility] [place] [address] Referring Nephrology 04/15/18 Javier Licona [address] [place] [facility] [address] [place] [address] Physician Endocrinology 04/15/18 Abad Garrett [address] [place], [place] 3256[address] Physician Cardiology 04/15/18 Skin Lap Bonder Relationship Specialty Start Date End Date Handy Henderson DO [address] [place] [address] PCP - General Family Medicine 10/09/20 Rosario Cardenas I, DO [address] [place] [address] Referring Nephrology 04/15/18 Javier Licona [address] [place] [address] Physician Endocrinology 04/15/18 Abad Garrett [address] [place] [address] Physician Cardiology 04/15/18 Skin Lap Bonder Relationship Specialty Start Date End Date Handy Henderson DO [address] [place] [address] PCP - General Family Medicine 10/09/20 Rosario Cardenas I, DO [address] [place] [address] Referring Nephrology 04/15/18 Javier Licona [address] [place] [address] Physician Endocrinology 04/15/18 Abad Garrett [address] [place] [address] Physician Cardiology 04/15/18 Skin Lap Bonder Relationship Specialty Start Date End Date Handy Henderson DO [address] [place] [address] PCP - General Family Medicine 10/09/20 Rosario Cardenas I, DO [address] [place] [address] Referring Nephrology 04/15/18 Javier Licona [address] [place] [address] Physician Endocrinology 04/15/18 Abad Garrett [address] [place] [address] Physician Cardiology 04/15/18 Skin Lap Bonder Relationship Specialty Start Date End Date Handy Henderson DO [address] [place] [address] PCP - General Family Medicine 10/09/20 Rosario Cardenas I, DO [address] [place] [address] Referring Nephrology 04/15/18 Javier Licona [address] [facility] [address] [place] [address] Physician Endocrinology 04/15/18 Abad Garrett [address] [place] [address] Physician Cardiology 04/15/18 Skin Lap Bonder Relationship Specialty Start Date End Date Handy Henderson DO [address] [place] [address] PCP - General Family Medicine 10/09/20 Rosario Cardenas I, DO [address] [place] [address] Referring Nephrology 04/15/18 Javier Licona [address] [facility] [address] [place] [address] Physician Endocrinology 04/15/18 Abad Garrett [address] [facility] [place] [address] Physician Cardiology 04/15/18 Skin Lap Bonder Relationship Specialty Start Date End Date Handy Henderson DO [address] [place] [address] PCP - General Family Medicine 10/09/20 Rosario Cardenas I, DO [address] [facility] [address] [place] [address] Referring Nephrology 04/15/18 Javier Licona [address] [facility] [address] [place] [address] Physician Endocrinology 04/15/18 Abad Garrett [address] [facility] [place] [address] Physician Cardiology 04/15/18 Team Status: Active Member Role Status Dates Dr. Handy Henderson DO Primary Care Provider Active Dr. Shamir Tsai MD Attending Provider Active Erica Older CAREER TRANSITION SPECIALIST, CAREER TRANSITION SPECIALIST-C Referring Provider Active Team Status: Inactive Member Role Status Dates Dr. Handy Henderson DO Primary Care Provider Active Erica Older CAREER TRANSITION SPECIALIST, CAREER TRANSITION SPECIALIST-C Attending Provider, Referring Provi vanessa Active Team Status: Active Member Role Status Dates Dr. Handy Henderson DO Primary Care Provider Active Dr. Shamir Tsai MD Attending Provider Active Erica Esteban CAREER TRANSITION SPECIALIST, CAREER TRANSITION SPECIALIST-C Referring Provider Active Team Status: Inactive Member Role Status Dates Dr. Handy Henderson DO Primary Care Provider, Referr ing Provider Active Dr. Nicolas Lawrence MD Attending Provider Active Team Status: Inactive Member Role Status Dates Dr. Handy Henderson DO Primary Care Provider Active Erica Orellana CAREER TRANSITION SPECIALIST, CAREER TRANSITION SPECIALIST-C Attending Provider, Referring Provider Active Team Status: Inactive Member Role Status Dates Dr. Handy Henderson DO Primary Care Provider Active Dr. Cesar Reyna MD Emergency Provider Active Skin Lap Bonder Relationship Specialty Start Date End Date Handy Henderson DO [address] [place] [address] PCP - General Family Medicine 10/09/20 Rosario Cardenas I, DO [address] [place], [place] [address] Referring Nephrology 04/15/18 Javier Licona [address] [facility] [address] [place] [address] Physician Endocrinology 04/15/18 Abad Garrett [address] [facility], [place] [address] Physician Cardiology 04/15/18 Team Status: Inactive Member Role Status Dates Dr. Handy Henderson DO Primary Care Provider, Referr ing Provider Active Dr. Pavan Shell MD Active Gabi Lieberman CAREER TRANSITION SPECIALIST, CAREER TRANSITION SPECIALIST-C Attending Provider Active Team Status: Inactive Member Role Status Dates Dr. Handy Henderson DO Primary Care Provider Active Dr. Cesar Reyna MD Attending Provider, Emergency Provi vanessa Active Team Status: Inactive Member Role Status Dates Dr. Handy Henderson DO Primary Care Provider Active Gabi Lieberman CAREER TRANSITION SPECIALIST, CAREER TRANSITION SPECIALIST-C Attending Provider, Referring P deandra Active Skin Lap Bonder Relationship Specialty Start Date End Date Handy Henderson DO [address] [place] [address] PCP - General Family Medicine 10/09/20 Rosario Cardenas I, DO [address] [place] [address] Referring Nephrology 04/15/18 Javier Licona [address] [facility] [address] [place] [address] Physician Endocrinology 04/15/18 Abad Garrett [address] [place] [address] Physician Cardiology 04/15/18 Skin Lap Bonder Relationship Specialty Start Date End Date Handy Henderson DO [address] [place] [address] PCP - General Family Medicine 10/09/20 Rosario Cardenas I, DO [address] [place] [address] Referring Nephrology 04/15/18 Javier Licona [address] [facility] [address] [place] [address] Physician Endocrinology 04/15/18 Abad Garrett [address] [place] [address] Physician Cardiology 04/15/18 Team Status: Active Member Role Status Dates Dr. Handy Henderson DO Primary Care Provider Active Dr. Nicolas Lawrence MD Attending Provider, Referring Provider, Other Provider Active Team Status: Inactive Member Role Status Dates Dr. Handy Henderson DO Primary Care Provider Active Dr. Nicolas Lawrence MD Attending Provider, Referring Pro vider Active Skin Lap Bonder Relationship Specialty Start Date End Date Handy Henderson DO [address] [place] [address] PCP - General Family Medicine 10/09/20 Rosario Cardenas I, DO [address] [place], [place] [address] Referring Nephrology 04/15/18 Javier Licona [address] [place] [address] Physician Endocrinology 04/15/18 Abad Garrett [address] [place] [address] Physician Cardiology 04/15/18 Skin Lap Bonder Relationship Specialty Start Date End Date Handy Henderson DO [address] [place] [address] PCP - General Family Medicine 10/09/20 Rosario Cardenas I, DO [address] [place] [address] Referring Nephrology 04/15/18 Javier Licona [address] [place] [address] Physician Endocrinology 04/15/18 Abad Garrett [address] [place] [address] Physician Cardiology 04/15/18 Skin Lap Bonder Relationship Specialty Start Date End Date Handy Henderson DO [address] [place] [address] PCP - General Family Medicine 10/09/20 Rosario Cardenas I, DO [address] [place] [address] Referring Nephrology 04/15/18 Javier Licona [address] [place] [address] Physician Endocrinology 04/15/18 Abad Garrett [address] [place] [address] Physician Cardiology 04/15/18 Skin Lap Bonder Relationship Specialty Start Date End Date Handy Henderson DO [address] [facility] [place] [address] PCP - General Family Medicine 10/09/20 Rosario Cardenas I, DO [address] [place] [address] Referring Nephrology 04/15/18 Javier Licona [address] [place] [facility] [address] [place] [address] Physician Endocrinology 04/15/18 Abad Garrett [address] [place] [address] Physician Cardiology 04/15/18 Skin Lap Bonder Relationship Specialty Start Date End Date Handy Henderson DO [address] [place], [place] [address] PCP - General Family Medicine 06/30/20 Diego Rodriguez MD [address] [place] [address] Consulting Physician Cardiovascular Disease 04/21/11 Peter Leon MD [address] [place] [address] Consulting Physician Endocrinology, Diabetes & Metabolism 04/21/11 Skin Lap Bonder Relationship Specialty Start Date End Date Handy Henderson DO [address] [facility] [place] [address] PCP - General Family Medicine 10/09/20 Rosario Cardenas I, DO [address] [place] [address] Referring Nephrology 04/15/18 Javier Licona [address] [facility] [address] [place] [address] Physician Endocrinology 04/15/18 Abad Garrett [address] [facility] [place] [address] Physician Cardiology 04/15/18 Skin Lap Bonder Relationship Specialty Start Date End Date Handy Henderson DO [address] [place] [address] PCP - General Family Medicine 10/09/20 Rosario Cardenas I, DO [address] [facility] [address] [place] [address] Referring Nephrology 04/15/18 Javier Licona [address] [facility] [address] [place] [address] Physician Endocrinology 04/15/18 Abad Garrett [address] [facility] [place] [address] Physician Cardiology 04/15/18 Skin Lap Bonder Relationship Specialty Start Date End Date Handy Henderson DO [address] [facility] [place] [address] PCP - General Family Medicine 10/09/20 Rosario Cardenas I, DO [address] [place] [address] Referring Nephrology 04/15/18 Javier Licona [address] [place] [address] Physician Endocrinology 04/15/18 Abad Garrett [address] [place] [address] Physician Cardiology 04/15/18 Skin Lap Bonder Relationship Specialty Start Date End Date Handy Henderson DO [address] [facility] [place] [address] PCP - General Family Medicine 10/09/20 Rosario Cardenas I, [address] [place] [address] Referring Nephrology 04/15/18 Javier Licona [address] [place] [address] Physician Endocrinology 04/15/18 Abad Garrett [address] [place] [address] Physician Cardiology 04/15/18 Skin Lap Bonder Relationship Specialty Start Date End Date Handy Henderson DO [address] [place] [address] PCP - General Family Medicine 10/09/20 Rosario Cardenas I, [address] [place] [address] Referring Nephrology 04/15/18 Javier Licona [address] [facility] [address] [place] [address] Physician Endocrinology 04/15/18 Abad Garrett [address] [place] [address] Physician Cardiology 04/15/18 Skin Lap Bonder Relationship Specialty Start Date End Date Handy Henderson DO [address] [place] [address] PCP - General Family Medicine 10/09/20 Rosario Cardenas I, DO [address] [place] [address] Referring Nephrology 04/15/18 Javier Licona [address] [facility] [address] [place] [address] Physician Endocrinology 04/15/18 Abad Garrett [address] [place], [place] [address] Physician Cardiology 04/15/18 Maya Holguin APRN.MENDING CARRIER [address] [place] [address] Crepe Sole Scourer Family Medicine 03/09/24 Tara Carballo, BRUSHER MACHINE.MENDING CARRIER [address] [place] [address] Crepe Sole Scourer [facility] 03/09/24 Skin Lap Bonder Relationship Specialty Start Date End Date Handy Henderson DO [address] [place] [address] PCP - General Family Medicine 10/09/20 Rosario Cardenas I, DO [address] [place], [place] [address] Referring Nephrology 04/15/18 Javier Licona [address] [facility] [address] [place] [address] Physician Endocrinology 04/15/18 Abad Garrett [address] [place] [address] Physician Cardiology 04/15/18 Maya Holguin, BRUSHER MACHINE.MENDING CARRIER [address] [place] [address] [facility] 03/09/24 Tara Carballo, BRUSHER MACHINE.MENDING CARRIER [address] [place] [address] Crepe Sole Scourer [facility] 03/09/24 Skin Lap Bonder Relationship Specialty Start Date End Date Handy Henderson DO [address] [place] [address] PCP - General Family Medicine 10/09/20 Rosario Cardenas I, DO [address] [place] [address] Referring Nephrology 04/15/18 Javier Licona [address] [facility] [address] [place] [address] Physician Endocrinology 04/15/18 Abad Garrett MD [address] [place] [address] Physician Cardiology 04/15/18 Maya Holguin APRN.MENDING CARRIER [address] [place] [address] Crepe Sole Scourer Family [facility] 03/09/24 Tara Carballo APRN.MENDING CARRIER [address] [place] [address] Crepe Sole Scourer [facility] 03/09/24 Skin Lap Bonder Relationship Specialty Start Date End Date Handy Henderson DO [address] [place] [address] PCP - General Family Medicine 10/09/20 Rosario Cardenas I, DO [address] [address] Referring Nephrology 04/15/18 Javier Licona [address] [place] [facility] [address] [place] [address] Physician Endocrinology 04/15/18 Abad Garrett MD [address] [place] [address] Physician Cardiology 04/15/18 Maya Holguin, NORAH.MENDING CARRIER [address] [facility] [place] [address] [facility] 03/09/24 Tara Carballo APRN.MENDING CARRIER [address] [facility] [place] [place], [place] [address] [facility] 03/09/24 Skin Lap Bonder Relationship Specialty Start Date End Date Handy eHnderson DO [address] [facility] [place], [place] [address] PCP - General Family Medicine 10/09/20 Rosario Cardenas I, DO [address], [place] [address] Referring Nephrology 04/15/18 Javier Licona [address] [place] [address] Physician Endocrinology 04/15/18 Abad Garrett MD [address] [facility] [place] [address] Physician Cardiology 04/15/18 Maya Holguin, NORAH.MENDING CARRIER [address] [place] [address] [facility] 03/09/24 Tara Carballo APRN.MENDING CARRIER [address] [place] [address] [facility] 03/09/24 Team Status: Active Member Role Status Dates Dr. Handy Henderson DO Primary Care Provider Active Team Status: Inactive Member Role Status Dates Dr. Handy Henderson DO Primary Care Provider Active Start: June 03, 2024 End: June 03, 2024 Dr. Handy Henderson DO Referring Provider Active Start: June 03, 2024 End: June 03, 2024 Radha BRONSON PA Attending Provider Active Start: June 03, [...] Provider Active S tart: July 07, 2024 Skin Lap Bonder Relationship Specialty Start Date End Date Handy Henderson DO [address] [place] [address] PCP - General Family Medicine 10/09/20 Rosario Cardenas I, DO [address] [facility] [address] [place], [place] [address] Referring Nephrology 04/15/18 Javier Licona [address] [facility] [address] [place] [address] Physician Endocrinology 04/15/18 Abad Garrett MD [address] [place], [place] [address] Physician Cardiology 04/15/18 Tara Carballo APRN.CNP [address] [place], [place] [address] [facility] 03/09/24 Team Status: Inactive Member Role Status Dates Dr. Handy Henderson DO Primary Care Provider Active Start: August 13, 2024 End: August 13, 2024 Dr. Handy Henderson DO Referring Provider Active Start: August 13, 2024 End: August 13, 2024 Mirna Salgado NP-C Attending Provider Active Start: August 13, 2024 End: August 13, 2024 Skin Lap Bonder Relationship Specialty Start Date End Date Handy Henderson DO [address] [place] [address] PCP - General Family Medicine 10/09/20 Rosario Cardenas I, DO [address] [facility] [address] [place] [address] Referring Nephrology 04/15/18 Javier Licona [address] [facility] [address] [place] [address] Physician Endocrinology 04/15/18 Abad Garrett MD [address] [place] [address] Physician Cardiology 04/15/18 Tara Carballo APRN.CNP [address] [place] [address] [facility] 03/09/24 Skin Lap Bonder Relationship Specialty Start Date End Date Handy Henderson DO [address] [facility] [place] [address] PCP - General Family Medicine 10/09/20 Rosario Cardenas I, DO [address] [facility] [address] [place], [place] [address] Referring Nephrology 04/15/18 Javier Licona [address] [facility] [address] [place] [address] Physician Endocrinology 04/15/18 Abad Garrett MD [address] [facility], [place] [address] Physician Cardiology 04/15/18 Tara Carballo APRN.MENDING CARRIER [address] [facility], [place] [address] Crepe Sole Scourer Family Medicine 03/09/24 Rosi Leger APRN.MENDING CARRIER [address] [place], [place] [id number] [facility] 09/15/24 Skin Lap Bonder Relationship Specialty Start Date End Date Handy Henderson DO [address] [place], [place] [address] PCP - General Family Medicine 10/09/20 Rosario Cardenas I, DO [address] [facility] [address] [place], [place] [address] Referring Nephrology 04/15/18 Javier Licona [address] [facility] [address] [place] [address] Physician Endocrinology 04/15/18 Abad Garrett MD [address] [facility] [place] [address] Physician Cardiology 04/15/18 Tara Carballo, BRUSHER MACHINE.MENDING CARRIER [address] [place] [address] [facility] 03/09/24 Rosi Leger APRN.MENDING CARRIER [address] [place] [address] [facility] 09/15/24 Source Comments (unrecognize d section and content) In the event this informatio n is protected by the Federal Confidentiality of Alcohol and Drug Abuse Patient Records regulations: The Federal rules restrict any use of the information to criminally investigate or prosecute any alcohol or drug abuse patient.[facility] the event this information is protected by the Federal Confidentiality of Alcohol and Drug Abuse Patient Records regulations: The Federal rules restrict any use of the information to criminally investigate or prosecute any alcohol or drug abuse patient.[facility] HospitalIn the event this information is protected by the Federal Confidentiality of Alcohol and Drug Abuse Patient Records regulations: The Federal rules restrict any use of the information to criminally investigate or prosecute any alcohol or drug abuse patient.[facility] HospitalIn the event this information is protected by the Federal Confidentiality of Alcohol and Drug Abuse Patient Records regulations: The Federal rules restrict any use of the information to criminally investigate or prosecute any alcohol or drug abuse patient.[facility] HospitalIn the event this information is protected by the Federal Confidentiality of Alcohol and Drug Abuse Patient Records regulations: The Federal rules restrict any use of the information to criminally investigate or prosecute any alcohol or drug abuse patient.[facility] HospitalIn the event this information is protected by the Federal Confidentiality of Alcohol and Drug Abuse Patient Records regulations: The Federal rules restrict any use of the information to criminally investigate or prosecute any alcohol or drug abuse patient.[facility] HospitalIn the event this information is protected by the Federal Confidentiality of Alcohol and Drug Abuse Patient Records regulations: The Federal rules restrict any use of the information to criminally investigate or prosecute any alcohol or drug abuse patient.[facility] HospitalIn the event this information is protected by the Federal Confidentiality of Alcohol and Drug Abuse Patient Records regulations: The Federal rules restrict any use of the information to criminally investigate or prosecute any alcohol or drug abuse patient.[facility] HospitalIn the event this information is protected by the Federal Confidentiality of Alcohol and Drug Abuse Patient Records regulations: The Federal rules restrict any use of the information to criminally investigate or prosecute any alcohol or drug abuse patient.[facility] HospitalIn the event this information is protected by the Federal Confidentiality of Alcohol and Drug Abuse Patient Records regulations: The Federal rules restrict any use of the information to criminally investigate or prosecute any alcohol or drug abuse patient.[facility] HospitalIn the event this information is protected by the Federal Confidentiality of Alcohol and Drug Abuse Patient Records regulations: The Federal rules restrict any use of the information to criminally investigate or prosecute any alcohol or drug abuse patient.[facility] HospitalIn the event this information is protected by the Federal Confidentiality of Alcohol and Drug Abuse Patient Records regulations: The Federal rules restrict any use of the information to criminally investigate or prosecute any alcohol or drug abuse patient.[facility] HospitalIn the event this information is protected by the Federal Confidentiality of Alcohol and Drug Abuse Patient Records regulations: The Federal rules restrict any use of the information to criminally investigate or prosecute any alcohol or drug abuse patient.[facility] HospitalIn the event this information is protected by the Federal Confidentiality of Alcohol and Drug Abuse Patient Records regulations: The Federal rules restrict any use of the information to criminally investigate or prosecute any alcohol or drug abuse patient.[facility] HospitalIn the event this information is protected by the Federal Confidentiality of Alcohol and Drug Abuse Patient Records regulations: The Federal rules restrict any use of the information to criminally investigate or prosecute any alcohol or drug abuse patient.[facility] HospitalIn the event this information is protected by the Federal Confidentiality of Alcohol and Drug Abuse Patient Records regulations: The Federal rules restrict any use of the information to criminally investigate or prosecute any alcohol or drug abuse patient.[facility] HospitalIn the event this information is protected by the Federal Confidentiality of Alcohol and Drug Abuse Patient Records regulations: The Federal rules restrict any use of the information to criminally investigate or prosecute any alcohol or drug abuse patient.[facility] HospitalIn the event this information is protected by the Federal Confidentiality of Alcohol and Drug Abuse Patient Records regulations: The Federal rules restrict any use of the information to criminally investigate or prosecute any alcohol or drug abuse patient.[facility] HospitalIn the event this information is protected by the Federal Confidentiality of Alcohol and Drug Abuse Patient Records regulations: The Federal rules restrict any use of the information to criminally investigate or prosecute any alcohol or drug abuse patient.[facility] HospitalIn the event this information is protected by the Federal Confidentiality of Alcohol and Drug Abuse Patient Records regulations: The Federal rules restrict any use of the information to criminally investigate or prosecute any alcohol or drug abuse patient.[facility] HospitalIn the event this information is protected by the Federal Confidentiality of Alcohol and Drug Abuse Patient Records regulations: The Federal rules restrict any use of the information to criminally investigate or prosecute any alcohol or drug abuse patient.[facility] HospitalIn the event this information is protected by the Federal Confidentiality of Alcohol and Drug Abuse Patient Records regulations: The Federal rules restrict any use of the information to criminally investigate or prosecute any alcohol or drug abuse patient.[facility] HospitalIn the event this information is protected by the Federal Confidentiality of Alcohol and Drug Abuse Patient Records regulations: The Federal rules restrict any use of the information to criminally investigate or prosecute any alcohol or drug abuse patient.[facility] HospitalIn the event this information is protected by the Federal Confidentiality of Alcohol and Drug Abuse Patient Records regulations: The Federal rules restrict any use of the information to criminally investigate or prosecute any alcohol or drug abuse patient.[facility] HospitalIn the event this information is protected by the Federal Confidentiality of Alcohol and Drug Abuse Patient Records regulations: The Federal rules restrict any use of the information to criminally investigate or prosecute any alcohol or drug abuse patient.[facility] HospitalIn the event this information is protected by the Federal Confidentiality of Alcohol and Drug Abuse Patient Records regulations: The Federal rules restrict any use of the information to criminally investigate or prosecute any alcohol or drug abuse patient.[facility] HospitalIn the event this information is protected by the Federal Confidentiality of Alcohol and Drug Abuse Patient Records regulations: The Federal rules restrict any use of the information to criminally investigate or prosecute any alcohol or drug abuse patient.[facility] HospitalIn the event this information is protected by the Federal Confidentiality of Alcohol and Drug Abuse Patient Records regulations: The Federal rules restrict any use of the information to criminally investigate or prosecute any alcohol or drug abuse patient.[facility] HospitalIn the event this information is protected by the Federal Confidentiality of Alcohol and Drug Abuse Patient Records regulations: The Federal rules restrict any use of the information to criminally investigate or prosecute any alcohol or drug abuse patient.[facility] HospitalIn the event this information is protected by the Federal Confidentiality of Alcohol and Drug Abuse Patient Records regulations: The Federal rules restrict any use of the information to criminally investigate or prosecute any alcohol or drug abuse patient.[facility] HospitalIn the event this information is protected by the Federal Confidentiality of Alcohol and Drug Abuse Patient Records regulations: The Federal rules restrict any use of the information to criminally investigate or prosecute any alcohol or drug abuse patient.[facility] HospitalIn the event this information is protected by the Federal Confidentiality of Alcohol and Drug Abuse Patient Records regulations: The Federal rules restrict any use of the information to criminally investigate or prosecute any alcohol or drug abuse patient.[facility] HospitalIn the event this information is protected by the Federal Confidentiality of Alcohol and Drug Abuse Patient Records regulations: The Federal rules restrict any use of the information to criminally investigate or prosecute any alcohol or drug abuse patient.[facility] HospitalIn the event this information is protected by the Federal Confidentiality of Alcohol and Drug Abuse Patient Records regulations: The Federal rules restrict any use of the information to criminally investigate or prosecute any alcohol or drug abuse patient.[facility] HospitalIn the event this information is protected by the Federal Confidentiality of Alcohol and Drug Abuse Patient Records regulations: The Federal rules restrict any use of the information to criminally investigate or prosecute any alcohol or drug abuse patient.[facility] HospitalIn the event this information is protected by the Federal Confidentiality of Alcohol and Drug Abuse Patient Records regulations: The Federal rules restrict any use of the information to criminally investigate or prosecute any alcohol or drug abuse patient.[facility] HospitalIn the event this information is protected by the Federal Confidentiality of Alcohol and Drug Abuse Patient Records regulations: The Federal rules restrict any use of the information to criminally investigate or prosecute any alcohol or drug abuse patient.[facility] HospitalIn the event this information is protected by the Federal Confidentiality of Alcohol and Drug Abuse Patient Records regulations: The Federal rules restrict any use of the information to criminally investigate or prosecute any alcohol or drug abuse patient.[facility] HospitalIn the event this information is protected by the Federal Confidentiality of Alcohol and Drug Abuse Patient Records regulations: The Federal rules restrict any use of the information to criminally investigate or prosecute any alcohol or drug abuse patient.[facility] HospitalIn the event this information is protected by the Federal Confidentiality of Alcohol and Drug Abuse Patient Records regulations: The Federal rules restrict any use of the information to criminally investigate or prosecute any alcohol or drug abuse patient.[facility] HospitalIn the event this information is protected by the Federal Confidentiality of Alcohol and Drug Abuse Patient Records regulations: The Federal rules restrict any use of the information to criminally investigate or prosecute any alcohol or drug abuse patient.[facility] HospitalIn the event this information is protected by the Federal Confidentiality of Alcohol and Drug Abuse Patient Records regulations: The Federal rules restrict any use of the information to criminally investigate or prosecute any alcohol or drug abuse patient.[facility] HospitalIn the event this information is protected by the Federal Confidentiality of Alcohol and Drug Abuse Patient Records regulations: The Federal rules restrict any use of the information to criminally investigate or prosecute any alcohol or drug abuse patient.[facility] HospitalIn the event this information is protected by the Federal Confidentiality of Alcohol and Drug Abuse Patient Records regulations: The Federal rules restrict any use of the information to criminally investigate or prosecute any alcohol or drug abuse patient.[facility] HospitalIn the event this information is protected by the Federal Confidentiality of Alcohol and Drug Abuse Patient Records regulations: The Federal rules restrict any use of the information to criminally investigate or prosecute any alcohol or drug abuse patient.[facility] HospitalIn the event this information is protected by the Federal Confidentiality of Alcohol and Drug Abuse Patient Records regulations: The Federal rules restrict any use of the information to criminally investigate or prosecute any alcohol or drug abuse patient.[facility] HospitalIn the event this information is protected by the Federal Confidentiality of Alcohol and Drug Abuse Patient Records regulations: The Federal rules restrict any use of the information to criminally investigate or prosecute any alcohol or drug abuse patient.[facility] HospitalIn the event this information is protected by the Federal Confidentiality of Alcohol and Drug Abuse Patient Records regulations: The Federal rules restrict any use of the information to criminally investigate or prosecute any alcohol or drug abuse patient.[facility] HospitalIn the event this information is protected by the Federal Confidentiality of Alcohol and Drug Abuse Patient Records regulations: The Federal rules restrict any use of the information to criminally investigate or prosecute any alcohol or drug abuse patient.[facility] HospitalIn the event this information is protected by the Federal Confidentiality of Alcohol and Drug Abuse Patient Records regulations: The Federal rules restrict any use of the information to criminally investigate or prosecute any alcohol or drug abuse patient.[facility] HospitalIn the event this information is protected by the Federal Confidentiality of Alcohol and Drug Abuse Patient Records regulations: The Federal rules restrict any use of the information to criminally investigate or prosecute any alcohol or drug abuse patient.[facility] HospitalIn the event this information is protected by the Federal Confidentiality of Alcohol and Drug Abuse Patient Records regulations: The Federal rules restrict any use of the information to criminally investigate or prosecute any alcohol or drug abuse patient.[facility] HospitalIn the event this information is protected by the Federal Confidentiality of Alcohol and Drug Abuse Patient Records regulations: The Federal rules restrict any use of the information to criminally investigate or prosecute any alcohol or drug abuse patient.[facility] HospitalIn the event this information is protected by the Federal Confidentiality of Alcohol and Drug Abuse Patient Records regulations: The Federal rules restrict any use of the information to criminally investigate or prosecute any alcohol or drug abuse patient.[facility] HospitalIn the event this information is protected by the Federal Confidentiality of Alcohol and Drug Abuse Patient Records regulations: The Federal rules restrict any use of the information to criminally investigate or prosecute any alcohol or drug abuse patient.[facility] HospitalIn the event this information is protected by the Federal Confidentiality of Alcohol and Drug Abuse Patient Records regulations: The Federal rules restrict any use of the information to criminally investigate or prosecute any alcohol or drug abuse patient.[facility] HospitalIn the event this information is protected by the Federal Confidentiality of Alcohol and Drug Abuse Patient Records regulations: The Federal rules restrict any use of the information to criminally investigate or prosecute any alcohol or drug abuse patient.[facility] HospitalIn the event this information is protected by the Federal Confidentiality of Alcohol and Drug Abuse Patient Records regulations: The Federal rules restrict any use of the information to criminally investigate or prosecute any alcohol or drug abuse patient.[facility] HospitalIn the event this information is protected by the Federal Confidentiality of Alcohol and Drug Abuse Patient Records regulations: The Federal rules restrict any use of the information to criminally investigate or prosecute any alcohol or drug abuse patient.[facility] HospitalIn the event this information is protected by the Federal Confidentiality of Alcohol and Drug Abuse Patient Records regulations: The Federal rules restrict any use of the information to criminally investigate or prosecute any alcohol or drug abuse patient.[facility] HospitalIn the event this information is protected by the Federal Confidentiality of Alcohol and Drug Abuse Patient Records regulations: The Federal rules restrict any use of the information to criminally investigate or prosecute any alcohol or drug abuse patient.[facility] HospitalIn the event this information is protected by the Federal Confidentiality of Alcohol and Drug Abuse Patient Records regulations: The Federal rules restrict any use of the information to criminally investigate or prosecute any alcohol or drug abuse patient.[facility] HospitalIn the event this information is protected by the Federal Confidentiality of Alcohol and Drug Abuse Patient Records regulations: The Federal rules restrict any use of the information to criminally investigate or prosecute any alcohol or drug abuse patient.[facility] HospitalIn the event this information is protected by the Federal Confidentiality of Alcohol and Drug Abuse Patient Records regulations: The Federal rules restrict any use of the information to criminally investigate or prosecute any alcohol or drug abuse patient.[facility] HospitalIn the event this information is protected by the Federal Confidentiality of Alcohol and Drug Abuse Patient Records regulations: The Federal rules restrict any use of the information to criminally investigate or prosecute any alcohol or drug abuse patient.[facility] HospitalIn the event this information is protected by the Federal Confidentiality of Alcohol and Drug Abuse Patient Records regulations: The Federal rules restrict any use of the information to criminally investigate or prosecute any alcohol or drug abuse patient.[facility] HospitalIn the event this information is protected by the Federal Confidentiality of Alcohol and Drug Abuse Patient Records regulations: The Federal rules restrict any use of the information to criminally investigate or prosecute any alcohol or drug abuse patient.[facility] HospitalIn the event this information is protected by the Federal Confidentiality of Alcohol and Drug Abuse Patient Records regulations: The Federal rules restrict any use of the information to criminally investigate or prosecute any alcohol or drug abuse patient.[facility] HospitalIn the event this information is protected by the Federal Confidentiality of Alcohol and Drug Abuse Patient Records regulations: The Federal rules restrict any use of the information to criminally investigate or prosecute any alcohol or drug abuse patient.[facility] HospitalIn the event this information is protected by the Federal Confidentiality of Alcohol and Drug Abuse Patient Records regulations: The Federal rules restrict any use of the information to criminally investigate or prosecute any alcohol or drug abuse patient.[facility] HospitalIn the event this information is protected by the Federal Confidentiality of Alcohol and Drug Abuse Patient Records regulations: The Federal rules restrict any use of the information to criminally investigate or prosecute any alcohol or drug abuse patient.[facility] HospitalIn the event this information is protected by the Federal Confidentiality of Alcohol and Drug Abuse Patient Records regulations: The Federal rules restrict any use of the information to criminally investigate or prosecute any alcohol or drug abuse patient.[facility] HospitalIn the event this information is protected by the Federal Confidentiality of Alcohol and Drug Abuse Patient Records regulations: The Federal rules restrict any use of the information to criminally investigate or prosecute any alcohol or drug abuse patient.[facility] HospitalIn the event this information is protected by the Federal Confidentiality of Alcohol and Drug Abuse Patient Records regulations: The Federal rules restrict any use of the information to criminally investigate or prosecute any alcohol or drug abuse patient.[facility] HospitalIn the event this information is protected by the Federal Confidentiality of Alcohol and Drug Abuse Patient Records regulations: The Federal rules restrict any use of the information to criminally investigate or prosecute any alcohol or drug abuse patient.[facility] HospitalIn the event this information is protected by the Federal Confidentiality of Alcohol and Drug Abuse Patient Records regulations: The Federal rules restrict any use of the information to criminally investigate or prosecute any alcohol or drug abuse patient.[facility] HospitalIn the event this information is protected by the Federal Confidentiality of Alcohol and Drug Abuse Patient Records regulations: The Federal rules restrict any use of the information to criminally investigate or prosecute any alcohol or drug abuse patient.[facility] HospitalIn the event this information is protected by the Federal Confidentiality of Alcohol and Drug Abuse Patient Records regulations: The Federal rules restrict any use of the information to criminally investigate or prosecute any alcohol or drug abuse patient.[facility] HospitalIn the event this information is protected by the Federal Confidentiality of Alcohol and Drug Abuse Patient Records regulations: The Federal rules restrict any use of the information to criminally investigate or prosecute any alcohol or drug abuse patient.[facility] HospitalIn the event this information is protected by the Federal Confidentiality of Alcohol and Drug Abuse Patient Records regulations: The Federal rules restrict any use of the information to criminally investigate or prosecute any alcohol or drug abuse patient.[facility] HospitalIn the event this information is protected by the Federal Confidentiality of Alcohol and Drug Abuse Patient Records regulations: The Federal rules restrict any use of the information to criminally investigate or prosecute any alcohol or drug abuse patient.[facility] HospitalIn the event this information is protected by the Federal Confidentiality of Alcohol and Drug Abuse Patient Records regulations: The Federal rules restrict any use of the information to criminally investigate or prosecute any alcohol or drug abuse patient.[facility] Reason for Visit (unrecogniz ed section and content) Reason Comments Physical Therapy Specialty Diagnoses / Procedures Referred By Jonathan shoemaker Referred To Contact Physical Therapy / PHYSICAL THERAPY Diagnoses Low Back Pain, core stregthening Procedures NEW RS PT SPINE Handy Henderson, DO [address] [place] [address] Reyes Perea, PT [address] [place] [address] Referral ID Status Reason Start Date Expiration Date V isits Requested Visits Authorized [id number] Authorized 07/02/2023 04/01/2024 30 30 Reason Comments PT Eval Reason Comments PT Discharge Specialty Diagnoses / Procedures Referred By Jonathan t Referred To Contact [facility] Diagnoses Status post kidney transplant Hip pain Chronic pain of both knees Balance disorder Procedures CONSULT TO PHYSICAL THERAPY PHYSICAL THERAPY EVALUATION HIGH COMPLEX 45 MINS Handy Henderson, DO [address] [place] [address] [facility] [place] [address] [place] [address] Referral ID Status Reason Start Date Expiration Date Visits Requested Visits Authorized [id number] Authorized Auto-Generat ed Referral 08/17/2021 04/01/2022 30 [...] NEW HIGH MDM 60-74 MINUTES Maya Salas, BRUSHER MACHINE.[employer] [address] [place] [address] Referral ID Status Reason Start Date Expiration Date Visits Requested Visits Authorized [id number] Pending Review PCP Requested Referral 07/11/2021 07/11/2022 1 1 Reason Comments Home Health [facility] Reason Comments Established Patient Diabetic Foot Exam Reason Comments Primary Open Angle Glaucoma Follow Up Reason Comments certification and POC Reason Comments Glaucoma Follow [...] Fell on 07/19- was to ld by [email or web address] that he has broken bones in left [...] hand pain Procedures CONSULT TO ORTHOPAEDICS OFFICE/OUTPATIENT [facility] 60-74 MINUTES Tara Carballo APRN.[employer] [address] [place] [address] Referral ID Status Reason Start Date Expiration Date Visits Requested Visits Authorized [id number] Pending Review PCP Requested Referral 07/24/2022 07/24/2023 [...] BE BASED ON THE PRIMARY CLINICAL RECORDS. [facility] [employer] [facility]. provides no warranty or guarantee of the accuracy or completeness of information in this document.
[2024-10-12 04:58] LABS: Color, Urine Straw (Yellow); Glucose, Dipstick 100 mg/dl (Normal); Ketone-Dipstick 5 mg/dl (Negative); Leukocyte Esterase-Dipstick 25 /ul (Negative); Nitrite-Dipstick Negative (Negative); Occult Blood-Urine 150 /ul (Negative); Protein-Dipstick 100 mg/dl (Negative); Specific Gravity, Urine 1.015 (1.002-1.030); Urine Bilirubin Dipstick Negative (Negative)
[2024-10-12 05:30] LABS: Squamous Epithelial Cells - UA 0-5 SEEN /hpf (0-5); Transitional Epithelial - Ur 0-5 SEEN /hpf (0-5)
[2024-10-12 06:04] LABS: Procalcitonin 0.14 ng/mL (<=0.10)
[2024-10-12] MEDS: Azithromycin 500 MG in Dextrose 5%-Water (250mL Bag) 250 ML 255 MG IV (06:15)
[2024-10-12] MEDS: Lactated Ringers 1,000 ML 100 ML IV (06:15)
[2024-10-12] MEDS: 0.9% Saline Lock 10 ML Syringe IV ×2 (06:17→21:24)
--- NOTE | 2024-10-12 07:02 | PN.HOSP_ITS ---
Reason for Visit Reason for Visit: Diagnoses Nausea with vomiting, unspecified (10/12/24) Subjective Subjective Patient's with no acute events since admission. He denies any recurrent episodes of vertigo and notes nausea/emesis has abated. In the room upon evaluation he is coughing. He does note feeling improved since initial ED arrival. Discussed plan of care which included continued treatment for possible pneumonia and did discuss that although he did not have a significant positive nitrite/leukocyte Estrace finding on his urine he did have significant amount of white blood cells 50-100 and 2+ bacteria with urine culture pending at this time as well. Patient denies fevers, chills, nausea, emesis, abdominal pain, chest pain or dyspnea. Objective Data Objective Data Vital Signs: Vital Signs Temp Pulse Resp BP Pulse Ox O2 Del Method 96.8 F L 73 18 159/66 H 100 Room Air 10/12/24 05:55 10/12/24 05:55 10/12/24 05:55 10/12/24 05:55 10/12/24 05:55 10/12/24 06:56 Oxygen Delivery Method Room Air Weight: 253 lb 12.033 oz Body Mass Index (BMI) 36.3 Intake & Output: Intake and Output for Last 24 Hours 10/10/24 10/11/24 10/12/24 23:59 23:59 23:59 Intake Total 1050 / 1050 Output Total 0 / 0 Balance 1050 / 1050 Lab / Micro Data 10/12/24 01:10 10/12/24 01:10 Labs: Laboratory Results - last 24 hr 10/12/24 01:10: WBC 4.5, RBC 4.76, Hgb 12.8 L, Hct 42.1, MCV 88.4, MCH 26.9 L, M CHC 30.4 L, RDW Std Deviation 45.1 H, RDW Coeff of Kindra 14.0, Plt Count 202, MPV 9.5, Immature Gran % (Auto) 0.900, Neut % (Auto) 74.9 H, Lymph % (Auto) 16.0 L, Phillips % (Auto) 7.3, Eos % (Auto) 0.2, Baso % (Auto) 0.7, Absolute Neuts (auto) 3.4, Absolute Lymphs (auto) 0.72 L, Nucleated RBC % 0, Sodium 137, Potassium 4.5, Chloride 106, Carbon Dioxide 19.7 L, Anion Gap 11, BUN 18, Creatinine 2.35 H, Estim Creat Clear Calc 41.45 L, Est GFR (MDRD) Non-Af 31 L, BUN/Creatinine Ratio 7.6 L, Glucose 159 H, Lactic Acid < 1.0, Calcium 9.3, Total Bilirubin 0.57, AST 23, ALT 28, Alkaline Phosphatase 240 H, Total Protein 6.6, Albumin 4.2, Globulin 2.4, Albumin/Globulin Ratio 1.7, Lipase 9 L, b-Hydroxybutyric mmol/L 0.4 H 10/12/24 04:10: Urine Color Straw, Urine Clarity Clear, Urine pH 6.5, Ur Specific [place] 1.015, Urine Protein 100 H, Urine Glucose (UA) 100 H, Urine Ketones 5 H, Urine Occult Blood 150 H, Urine Nitrite Negative, Urine Bilirubin Negative, Urine Urobilinogen Normal, Ur Leukocyte Esterase 25 H, Urine RBC 0 SEEN, Urine WBC 50-100 SEEN, Ur Squamous Epith Cells 0-5 SEEN, Ur Transition Epith Cell 0-5 SEEN, Urine Bacteria 2+, Hyaline Casts 0-5 SEEN, Urine Mucus 0 SEEN 10/12/24 05:05: Procalcitonin 0.14 H Micro: Microbiology 10/12/24 01:55 Mucosa - Nose SARS-CoV-2, Influenza & RSV (PCR) - Final ABG Data ABG results: ABG 10/12/24 02:18 Specimen Type ZEE Sample Site Not entered VBG pH 7.29 L VBG pO2 35 VBG HCO3 21 L VBG Total CO2 23 VBG O2 Sat (Calc) 60 VBG Base Excess -6 L POC Mix VBG pCO2 Pt Tmp 44.4 O2 Delivery Device Room Air Radiography Diagnostic Testing: Radiology Impression Chest X-Ray 10/12/24 02:30 IMPRESSION: Mild findings of edema. Infection is possible. Reading Location: [id number] Brain CT 10/12/24 04:25 IMPRESSION: NO ACUTE FINDINGS Reading Location: [id number] Physical Exam Narrative Physical Examination: General: Awake, alert, oriented x 3 and cooperative, seated upright in the after meals bed, fatigued but notes he has improved since initial ED arrival, denies any current nausea and no recent emesis, vertiginous symptoms resolved. Skin: Normal color, normal turgor, no icterus, no cyanosis except occasional stage ecchymoses, abrasion HEENT: AT/NC, EOMI, PERRLA, mildly dry MM. Lungs: CTA bilaterally, moderate effort, mild decrease BL bases, no rales, ronchi or wheezing. Heart: Regular rate and rhythm; no gallop, rub audible. Abdomen: Soft, obese, NTTP, ND, hyperactive BS. Extremities: No cyanosis, no clubbing, no marked significant distal pitting edema. Neurological: Patient awake, alert, oriented as noted, cognitive function intact; pupils equally reactive to light and accommodation, cranial nerves grossly normal, moving all 4 extremities, no focal deficits, strength improved, mildly to moderately globally decreased Psychiatric: Affect appears mildly flat, fatigued, no acute evidence of depressive or anxiety feelings. Assessment & Plan Assessment/Plan (1) Nausea & vomiting: PLAN: Plan The patient is a 64 y/o M w/ PMHx: Hx TIA, HTN, HLD, NORBERTO, BPH with obstructive pathology, CAD status post PCI, Hx renal txp on chronic immunosuppressive therapy with CKD stage IIIb per chart report, Obesity, GERD, IDDM with insulin pump who presents to [facility] ED on 10/12/2024 with episodes of intractable nausea and emesis and dizziness described as potentially vertigo with recent URI type symptoms not improving. #1. Intractable nausea and emesis with dizziness, suspect vertigo possibly related with #2 and URI type symptoms: Patient with no history of vertiginous symptoms in the past, CT of the head obtained with no acute intracranial findings, given higher suspicion related to #2 deferred further stroke evaluation especially given resolution with initiation of treatment for #2, will continue judicious hydration, will have as needed Zofran and as needed meclizine. #2. Recent URI type symptoms with concern for possible bilateral pneumonia, community-acquired: Given recent URI type symptoms concern for possible pneumonia, treated empirically with IV Rocephin and azithromycin, rapid COVID/flu/RSV negative, will request full respiratory viral panel, request sputum culture with induction as well as urine antigens. Will maintain on aerosols as needed. Procalcitonin not markedly elevated. BNP requested. #3. CKD stage III per chart reporting with history of renal cell transplant: Patient continued on immunosuppressive regimen outpatient, given acute infectious presentation at this time we will continue tacrolimus and temporally hold mycophenolate, admission BUN/creatinine 18/2.35, GFR 31, baseline creatinine appears to range 2.4-3.1, most recently 05/07/2023 creatinine 2.21 this vacillates, we will continue to trend. May resume mycophenolate once infection treated. #4. IDDM: Continue insulin pump with usage of Accu-Cheks to match pump x 2 within 20 then may transition to usage of home machine only, maintain on ADA diet, accu checks w/ ISS, most recent hemoglobin A1c 6.1% 08/14. #5. CAD: Status post PCI, noted multiple stents from [id number], will continue aspirin, Plavix, statin, Coreg, not on TERESITA Imdur/ARB likely secondary to underlying renal disease. #6. Hypertension: Continue home regimen including Coreg, amlodipine, PRN hydralazine. #7. Hyperlipidemia: Will continue patient on statin therapy. #8. Obesity: Weight loss and lifestyle changes encouraged. #9. BPH with obstructive pathology: Looking patient on Flomax regimen. #10. GERD: Will continue patient home Pepcid #11. DVT prophylaxis: Heparin. Charges/Coding Procedures Hospitalists Procedures: Other Procedure - See Report (Billing Code: 95294, nonbillable code, admitted same day.)
[2024-10-12] MEDS: SIROLIMUS 0.5 MG TABLET 1 MG PO (10:44)
[2024-10-12] MEDS: Timolol 0.5% 5ML OPTH.BTL 1 DRP OPHTHALMIC (10:46)
[2024-10-12] MEDS: Heparin Injection (Vial) 5,000 UNIT/ML VIAL 5000 UNIT SC ×2 (10:49→21:24)
[2024-10-12 13:38] LABS: Pro- Brain NATRIURETIC PEPTIDE 523 pg/mL (<=900)
[2024-10-12] MEDS: Azithromycin 500 MG in 0.9% Normal Saline (250mL Bag) 250 ML 255 MG IV (23:05)
[2024-10-13 02:50] VITALS: BP 138/81; PULSE 66; RESP 18; TEMP 36.1; O2SAT 98
[2024-10-13] MEDS: 0.9% Saline Lock 10 ML Syringe IV ×2 (02:50→17:12)
[2024-10-13 06:17] LABS: Anion Gap 11 (5-15); BUN 21 mg/dL (4-19); BUN/Creat Ratio 8.9 RATIO (10-20); Calcium,Total 9.2 mg/dL (7.6-11.0); Carbon Dioxide 18.3 mmol/L (21.0-32.0); Chloride 109 mmol/L (98-108); Estimated Creatinine Clearance 42.13 ml/min (50-250); Glucose 100 mg/dL (70-99); Potassium 4.1 mmol/L (3.3-5.1)
[2024-10-13 09:08] VITALS: BP 144/66; PULSE 64; RESP 14; TEMP 36.8; O2SAT 96
[2024-10-13] MEDS: Timolol 0.5% 5ML OPTH.BTL 1 DRP OPHTHALMIC (09:11)
[2024-10-13] MEDS: SIROLIMUS 0.5 MG TABLET 1 MG PO (09:12)
[2024-10-13] MEDS: Heparin Injection (Vial) 5,000 UNIT/ML VIAL 5000 UNIT SC ×2 (09:14→21:36)
[2024-10-13 09:44] LABS: Hematocrit 35.5 % (40-54); Hemoglobin 10.9 g/dL (13.0-16.5); Mean Corp Hgb Conc 30.7 g/dL (32-36); Mean Corpuscular Volume 88.3 fL (80-94); RBC Distribution Width CV 14.4 % (11.6-14.6); RBC Distribution Width SD 46.6 fl (35.1-43.9); Red Blood Count 4.02 M/mm3 (4.6-6.2); White Blood Count 5.5 K/mm3 (4.4-11.0)
[2024-10-13 09:45] LABS: Mean Platelet Vol. 10.1 fl (6.2-12.0); Platelet Count 221 K/mm3 (150-450); Scan Indicated on CBC? Y/N NO
--- NOTE | 2024-10-13 10:22 | PCM.PN.HOSP ---
Reason for Visit Chief Complaint: Nausea/vomiting with dizziness and URI symptoms Subjective Subjective Patient is a 64-year-old gentleman with history of renal transplant on immunosuppressive therapy presented with upper respiratory tract symptoms as well as nausea vomiting and lightheadedness. Chest x-ray obtained on admission was suggestive of edema and infectious process could not be ruled out. Patient admitted to a monitored bed for subsequent management Objective Data Objective Data Vital Signs: Vital Signs Temp Pulse Resp BP Pulse Ox O2 Del Method 98.2 F 64 14 144/66 H 96 Room Air 10/13/24 09:08 10/13/24 09:08 10/13/24 09:08 10/13/24 09:08 10/13/24 09:08 10/13/24 09:08 Oxygen Delivery Method Room Air Weight: 115.1 kg Body Mass Index (BMI) 36.3 Intake & Output: Intake and Output for Last 24 Hours 10/11/24 10/12/24 10/13/24 23:59 23:59 23:59 Intake Total 2350 / 2350 495 / 495 Output Total 0 / 0 300 / 300 Balance 2350 / 2350 195 / 195 Lab / Micro Data 10/13/24 05:31 10/13/24 05:31 Labs: Laboratory Results - last 24 hr 10/12/24 01:10: NT pro BNP II 523 10/12/24 11:00: POC Glucose 118 H 10/12/24 21:21: POC Glucose 142 H 10/13/24 05:31: WBC 5.5, RBC 4.02 L, Hgb 10.9 L, Hct 35.5 L, MCV 88.3, MCH 27.1, MCHC 30.7 L, RDW Std Deviation 46.6 H, RDW Coeff of Kindra 14.4, Plt Count 221, MPV 10.1, Sodium 138, Potassium 4.1, Chloride 109 H, Carbon Dioxide 18.3 L, Anion Gap 11, BUN 21 H, Creatinine 2.31 H, Estim Creat Clear Calc 42.13 L, Est GFR (MDRD) Non-Af 31 L, BUN/Creatinine Ratio 8.9 L, Glucose 100 H, Calcium 9.2 Micro: Microbiology 10/12/24 10:09 Mucosa - Nasopharyngeal Respiratory Panel (PCR) - Final 10/12/24 04:10 Urine, Clean Catch Streptococcus pneumoniae Antigen (M - Final 10/12/24 04:10 Urine, Clean Catch Legionella Antigen - Final 10/12/24 01:55 Mucosa - Nose SARS-CoV-2, Influenza & RSV (PCR) - Final Physical Exam Narrative GENERAL: cooperative HEENT: Atraumatic; normocephalic EYES; Anicteric, Normal Conjunctiva NECK; supple, normal thyroid, RESPIRATORY: Diminished to auscultation CARDIOVASCULAR: Regular S1 S2, GI: soft, normoactive bowel sounds, : No Renal angle tenderness; EXTREMITIES: No edema, no clubbing, MUSCULOSKELETAL: no muscle wasting NEURO: Awake; no lateralizing signs. SKIN: No Rash PSYCH; Flat affect Assessment & Plan Assessment/Plan (1) Vertigo: PLAN: Plan Patient is a 64-year-old gentleman with history of renal transplant on immunosuppressive therapy presented with upper respiratory tract symptoms as well as nausea vomiting and lightheadedness. Chest x-ray obtained on admission was suggestive of edema and infectious process could not be ruled out. Patient admitted to a monitored bed for subsequent management 1. Suspected pneumonia with gram-positive organisms ? Patient admitted to a monitored floor. Management Rocephin as well as ceftriaxone initial evaluation with rapid COVID flu and RSV came back negative 2. Acute vertigo ? Ordered MRI to rule out posterior circulation CVA. Also requested for PT OT eval 3. History of renal transplant now with chronic kidney disease stage IIIb ? Patient is on immunosuppressant agents with mycophenolate and sirolimus. 4. Class II obesity with BMI of 36.4 ? Complicating care weight loss advised 5. Coronary artery disease ? With previous PCI with multiple stents. Patient remains on guideline directed medical therapy 6. Hypertension ? Blood pressure controlled, home medications continued with dose adjustment as needed 7. BPH with lower urinary obstructive symptoms - Patient treated with tamsulosin 8. Dyslipidemia ?Patient is on statin therapy, continued at home dose 9. GERD ? Continue home Pepcid. 10. Diabetes mellitus type 1 ? Patient is on an insulin pump 11. DVT prophylaxis Heparin subcu Time spent in the patient's overall evaluation,decision-making process, review of diagnostic data, adjustment of management, discussion with other providers, nursing nursing and ancillary staff involved in patient's care documentation, 50 Minutes Charges/Coding Visit Charges Inpatient E&M: 31119 Subs Hosp L2
--- NOTE | 2024-10-13 10:33 | MRI_ITS ---
PROCEDURE: BRAIN WITHOUT CONTRAST 10/13/2024 REASON FOR EXAM: VERTIGO TECHNIQUE: BRAIN WITHOUT CONTRAST Multiplanar and multisequence images were obtained. COMPARISON: CT head without contrast, 10/12/2024 FINDINGS: There is mild diffuse cerebral atrophy with concomitant ventriculomegaly. There is patchy periventricular and subcortical white matter signal abnormality in both cerebral hemispheres consistent with chronic ischemic white matter disease. There are multiple chronic lacunar infarctions in the periventricular white matter of both frontal lobes, both thalami, the periatrial white matter of the right parietal lobe, the left side of the midbrain, and the left side of the melanie. There is a normal sulcal pattern and gyral configuration. There is no evidence of acute intracranial hemorrhage or infarction. The hoffman-white differentiation is well preserved. There is no evidence of restricted diffusion. The ventricles and basilar cisterns are normal. There are normal flow voids demonstrated in the recognized intracranial vessels. The cerebellum and brainstem are unremarkable. The cerebellar pontine angles are normal. The craniovertebral junction is normal. The sella and suprasellar regions are normal. The orbits and retro-orbital regions are unremarkable. The nasal septum is deviated to the right the paranasal sinuses are clear. There are multiple fluid-filled mastoid air cells bilaterally. There is normal bone marrow signal in the skull base and calvarium. MRI/Brain without Contrast IMPRESSION: 1. No evidence of acute intracranial pathology. 2. There are chronic lacunar infarctions in the periventricular white matter o f both cerebral hemispheres, both thalami, the midbrain and the melanie as described. 3. Cerebral atrophy and chronic ischemic white matter disease. 4. Bilateral mastoiditis. Reading Location: [place] [id number]
[2024-10-13] MEDS: Azithromycin 500 MG in 0.9% Normal Saline (250mL Bag) 250 ML 255 MG IV (11:00)
--- NOTE | 2024-10-13 12:31 | CASEMGMT ---
Met with patient to complete GUSTAFSON form. GUSTAFSON form and its content were verbally explained and patient's questions were answered to the best of my ability.? Patient voiced understanding and signed GUSTAFSON form.? Patient provided a copy of signed GUSTAFSON form and original placed in patient's chart.? Patient had no further questions. Fani White, Discharge Planning Asst
--- NOTE | 2024-10-13 15:01 | CASEMGMT ---
Social Work SW met w/pt to review POA/LW, PT and OT came in so SW explained would return. SW returned, pt is down at MRI, in room. SW reviewed the documents w/, encouraged her to have both she and pt come in to complete LW/POA as an outpt. sent on to say pt is weak, we talked about possible SNF placement. Pt is observation, we can look into seeing, if SNF is needed, if he would be able to go under his [facility]. SW will continue to follow for possible SNF placement. SANTI Hall
[2024-10-13 15:23] VITALS: BP 144/88; PULSE 63; RESP 17; TEMP 36.8; O2SAT 98
--- NOTE | 2024-10-13 16:04 | CHAPLAIN ---
Type of Pastoral Visit _x__ Initial Visit ___ Follow-up Visit ___ On-call Visit ___ General Patient Visit ___ Spiritual Assessment ___ Family Conference ___ Bereavement ___ Rapid Response ___ Code Blue ___ Other (describe below) Pastoral Care Referral From _x__ Patient ___ Family ___ Nurse ___ Physician ___ Anodizing Line Operator ___ Cable Rigger ___ Other (describe below) Sacrament/Intervention _x__ Active listening ___ Anointing ___ Mormon ___ Bereavement ___ Communion ___ Adeline exploration ___ _x__ Life review _x__ Prayer ___ Reconciliation ___ Sacrament of Sick ___ Supportive presence ___ Wedding ___ Other (describe below) Pastoral Comments patient is welcoming and open about his physical health and reason to come to the hospital; pt states that he has had numerous reasons to be in the hospital before and that this is not concerning to him; pt however stresses that he wants answers as to why he has had new issues and is experiencing weakness; pt also gives lots of life review and continues the conversation without effort
[2024-10-13 21:33] VITALS: BP 152/72; PULSE 79; RESP 18; TEMP 36.6; O2SAT 93
[2024-10-14 04:10] VITALS: BP 167/69; PULSE 73; RESP 18; TEMP 36.7; O2SAT 98
[2024-10-14 06:12] LABS: Hematocrit 37.0 % (40-54); Hemoglobin 11.6 g/dL (13.0-16.5); Immature Granulocytes Count 0.050 X10^3/uL (0.0-0.0); Mean Corp Hgb Conc 31.4 g/dL (32-36); Mean Corpuscular Volume 87.1 fL (80-94); Mean Platelet Vol. 9.5 fl (6.2-12.0); NRBC Flagged by Analyzer 0 % (0-5); Platelet Count 222 K/mm3 (150-450); RBC Distribution Width CV 14.2 % (11.6-14.6); RBC Distribution Width SD 45.2 fl (35.1-43.9); Red Blood Count 4.25 M/mm3 (4.6-6.2); White Blood Count 3.9 K/mm3 (4.4-11.0)
[2024-10-14 06:37] LABS: Anion Gap 8 (5-15); BUN 23 mg/dL (4-19); BUN/Creat Ratio 9.1 RATIO (10-20); Calcium,Total 8.9 mg/dL (7.6-11.0); Carbon Dioxide 20.4 mmol/L (21.0-32.0); Chloride 109 mmol/L (98-108); Estimated Creatinine Clearance 38.62 ml/min (50-250); Glucose 117 mg/dL (70-99); Magnesium 2.1 mg/dL (1.5-2.2); Potassium 4.1 mmol/L (3.3-5.1)
[2024-10-14] MEDS: 0.9% Saline Lock 10 ML Syringe IV (06:56)
--- NOTE | 2024-10-14 07:20 | PCM.PN.HOSP ---
Reason for Visit Chief Complaint: Nausea/vomiting with dizziness and URI symptoms Subjective Subjective Patient MRI obtained the day prior was negative for acute CVA. Plans for patient to be assessed for discharge. Objective Data Objective Data Vital Signs: Vital Signs Temp Pulse Resp BP Pulse Ox O2 Del Method 98.1 F 73 18 167/69 H 98 Room Air 10/14/24 04:10 10/14/24 04:10 10/14/24 04:10 10/14/24 04:10 10/14/24 04:10 10/14/24 04:10 Oxygen Delivery Method Room Air Weight: 115.1 kg Body Mass Index (BMI) 36.3 Intake & Output: Intake and Output for Last 24 Hours 10/12/24 10/13/24 10/14/24 23:59 23:59 23:59 Intake Total 2350 / 2350 2000 / 2500 500 / 500 Output Total 0 / 0 300 / 300 Balance 2350 / 2350 1700 / 2200 500 / 500 Lab / Micro Data 10/14/24 05:43 10/14/24 05:43 Labs: Laboratory Results - last 24 hr 10/13/24 05:31: WBC 5.5, RBC 4.02 L, Hgb 10.9 L, Hct 35.5 L, MCV 88.3, MCH 27.1, MCHC 30.7 L, RDW Std Deviation 46.6 H, RDW Coeff of Kindra 14.4, Plt Count 221, MPV 10.1 10/13/24 12:36: POC Glucose 160 H 10/14/24 05:43: WBC 3.9 L, RBC 4.25 L, Hgb 11.6 L, Hct 37.0 L, MCV 87.1, MCH 27.3, MCHC 31.4 L, RDW Std Deviation 45.2 H, RDW Coeff of Kindra 14.2, Plt Count 222, MPV 9.5, Immature Gran % (Auto) 1.300 H, Neut % (Auto) 57.3, Lymph % (Auto) 24.9, [place] % (Auto) 14.4 H, Eos % (Auto) 1.3, Baso % (Auto) 0.8, Absolute Neuts (auto) 2.2, Absolute Lymphs (auto) 0.97, Nucleated RBC % 0, Sodium 137, Potassium 4.1, Chloride 109 H, Carbon Dioxide 20.4 L, Anion Gap 8, BUN 23 H, Creatinine 2.52 H, Estim Creat Clear Calc 38.62 L, Est GFR (MDRD) Non-Af 28 L, BUN/Creatinine Ratio 9.1 L, Glucose 117 H, Calcium 8.9, Phosphorus 2.0 L, Magnesium 2.1 Micro: Microbiology 10/12/24 10:09 Mucosa - Nasopharyngeal Respiratory Panel (PCR) - Final 10/12/24 04:10 Urine, Clean Catch Streptococcus pneumoniae Antigen (M - Final 10/12/24 04:10 Urine, Clean Catch Legionella Antigen - Final 10/12/24 01:55 Mucosa - Nose SARS-CoV-2, Influenza & RSV (PCR) - Final Radiography Diagnostic Testing: Radiology Impression Brain MRI 10/13/24 10:33 IMPRESSION: 1. No evidence of acute intracranial pathology. 2. There are chronic lacunar infarctions in the periventricular white matter of both cerebral hemispheres, both thalami, the midbrain and the melanie as described. 3. Cerebral atrophy and chronic ischemic white matter disease. 4. Bilateral mastoiditis. Reading Location: [place] [id number] Physical Exam Narrative GENERAL: cooperative HEENT: Atraumatic; normocephalic EYES; Anicteric, Normal Conjunctiva NECK; supple, normal thyroid, RESPIRATORY: Diminished to auscultation CARDIOVASCULAR: Regular S1 S2, GI: soft, normoactive bowel sounds, : No Renal angle tenderness; EXTREMITIES: No edema, no clubbing, MUSCULOSKELETAL: no muscle wasting NEURO: Awake; no lateralizing signs. SKIN: No Rash PSYCH; Flat affect Assessment & Plan Assessment/Plan (1) Vertigo: PLAN: Plan Patient is a 64-year-old gentleman with history of renal transplant on immunosuppressive therapy presented with upper respiratory tract symptoms as well as nausea vomiting and lightheadedness. Chest x-ray obtained on admission was suggestive of edema and infectious process could not be ruled out. Patient admitted to a monitored bed for subsequent management 1. Suspected pneumonia with gram-positive organisms ? Patient admitted to a monitored floor. Management Rocephin as well as ceftriaxone initial evaluation with rapid COVID flu and RSV came back negative 2. Acute vertigo ? Ordered MRI to rule out posterior circulation CVA. Also requested for PT OT eval ? 10/14/2024. Patient MRI did not demonstrate any acute CVA findings Patient to be assessed for discharge. Patient will need PT at home 3. History of renal transplant now with chronic kidney disease stage IIIb ? Patient is on immunosuppressant agents with mycophenolate and sirolimus. 4. Class II obesity with BMI of 36.4 ? Complicating care weight loss advised 5. Coronary artery disease ? With previous PCI with multiple stents. Patient remains on guideline directed medical therapy 6. Hypertension ? Blood pressure controlled, home medications continued with dose adjustment as needed 7. BPH with lower urinary obstructive symptoms - Patient treated with tamsulosin 8. Dyslipidemia ?Patient is on statin therapy, continued at home dose 9. GERD ? Continue home Pepcid. 10. Diabetes mellitus type 1 ? Patient is on an insulin pump 11. DVT prophylaxis Heparin subcu
--- NOTE | 2024-10-14 09:09 | CASEMGMT ---
Social Work PHQ-9 not completed as imaging does not show pt had a stroke. SANTI Hall
[2024-10-14] MEDS: Heparin Injection (Vial) 5,000 UNIT/ML VIAL 5000 UNIT SC (09:30)
[2024-10-14] MEDS: SIROLIMUS 0.5 MG TABLET 1 MG PO (09:31)
[2024-10-14] MEDS: Timolol 0.5% 5ML OPTH.BTL 1 DRP OPHTHALMIC (09:31)
--- NOTE | 2024-10-14 09:34 | DS.PCM_ITS ---
Providers Date of Admission: 10/12/24 Date of Discharge: 10/14/24 Primary Care Physician: Dr. Handy Henderson, DO Reason For Visit: INTRACTABLE NAUSEA/VOMITING, CONCERN FOR CAP Diagnosis Discharge Diagnosis (1) Vertigo: Status: Acute Code(s): R42 - Dizziness and giddiness Plan Patient is a 64-year-old gentleman with history of renal transplant on immunosuppressive therapy presented with upper respiratory tract symptoms as well as nausea vomiting and lightheadedness. Chest x-ray obtained on admission was suggestive of edema and infectious process could not be ruled out. Patient admitted to a monitored bed for subsequent management 1. Suspected pneumonia with gram-positive organisms ? Patient admitted to a monitored floor. Management Rocephin as well as ceftriaxone initial evaluation with rapid COVID flu and RSV came back negative 2. Acute vertigo ? Ordered MRI to rule out posterior circulation CVA. Also requested for PT OT eval ? 10/14/2024. Patient MRI did not demonstrate any acute CVA findings Patient to be assessed for discharge. Patient will need PT at home 3. History of renal transplant now with chronic kidney disease stage IIIb ? Patient is on immunosuppressant agents with mycophenolate and sirolimus. 4. Class II obesity with BMI of 36.4 ? Complicating care weight loss advised 5. Coronary artery disease ? With previous PCI with multiple stents. Patient remains on guideline directed medical therapy 6. Hypertension ? Blood pressure controlled, home medications continued with dose adjustment as needed 7. BPH with lower urinary obstructive symptoms - Patient treated with tamsulosin 8. Dyslipidemia ?Patient is on statin therapy, continued at home dose 9. GERD ? Continue home Pepcid. 10. Diabetes mellitus type 1 ? Patient is on an insulin pump 11. DVT prophylaxis Heparin subcu 12. Hypophosphatemia ? Corrected per protocol Medications at Discharge Home Medications albuterol sulfate 90 mcg/actuation aerosol inhaler 1 - 2 puff inhalation Q6H PRN PRN Wheezing 07/24/19 BP cuff #1 ea 11/27/19 pen needle, diabetic 32 gauge x (BD Ultra-Fine Cici Pen Needle) #400 ea 02/12/20 tamsulosin 0.4 mg capsule 0.4 mg PO QHS 04/22/20 propylene glycol 0.6 % eye drops (Systane Balance) 1 drp ophthalmic (eye) DAILY PRN lubricant 07/28/21 mycophenolate mofetil 250 mg capsule 500 mg PO BID 09/19/21 sulfamethoxazole 800 mg-trimethoprim 160 mg tablet 1 tab PO .QOD 09/19/21 blood-glucose sensor (Dexcom G6 Sensor device) #9 ea 09/22/21 blood-glucose transmitter (Dexcom G6 Transmitter device) #1 ea 09/22/21 sirolimus 0.5 mg tablet 0.5 mg PO DAILY 01/30/22 atorvastatin 40 mg tablet 40 mg PO QHS #90 tabs 06/09/22 blood sugar diagnostic (Blood Glucose Test strips) #100 ea 10/13/22 blood-glucose meter #1 ea 10/23/22 timolol 0.5 % eye drops 1 drp ophthalmic (eye) DAILY 05/07/23 blood-glucose meter (Accu-Chek Guide Glucose Meter) #1 ea 06/04/23 lancing device with lancets kit (Accu-Chek Softclix Lancing Device+Lancets kit) #1 ea 06/04/23 famotidine 20 mg tablet (Pepcid) 20 mg PO DAILY 12/04/23 Novolog U-100 Insulin aspart 100 unit/mL subcutaneous solution (insulin aspart U-100) 120 unit (1.2 mL) continuous subcutaneous infusion .continuous #108 mL 02/14/24 blood sugar diagnostic (Accu-Chek Guide test strips) #100 ea 02/14/24 amlodipine 2.5 mg tablet 2.5 mg PO DAILY #30 tabs 04/09/24 aspirin 325 mg tablet 325 mg PO DAILY 06/03/24 carvedilol 12.5 mg tablet 12.5 mg PO BID #180 tabs 06/03/24 clopidogrel 75 mg tablet 75 mg PO DAILY #90 tabs 06/03/24 meclizine 25 mg tablet (Travel-Ease (meclizine)) 25 mg PO TID PRN PRN Dizziness #30 tabs 10/14/24 Hospital Course Summary of Care Provided Minutes Spent on Discharge: 35 Physical Exam Narrative GENERAL: cooperative HEENT: Atraumatic; normocephalic EYES; Anicteric, Normal Conjunctiva NECK; supple, normal thyroid, RESPIRATORY: Diminished to auscultation CARDIOVASCULAR: Regular S1 S2, GI: soft, normoactive bowel sounds, : No Renal angle tenderness; EXTREMITIES: No edema, no clubbing, MUSCULOSKELETAL: no muscle wasting NEURO: Awake; no lateralizing signs. SKIN: No Rash PSYCH; Flat affect Weight / BMI Weight Weight: 115.1 kg Body Mass Index (BMI) 36.3 ABG / Lab / Microbiology Data 10/14/24 05:43 10/14/24 05:43 Laboratory: Laboratory Results - last 24 hr 10/13/24 05:31: WBC 5.5, RBC 4.02 L, Hgb 10.9 L, Hct 35.5 L, MCV 88.3, MCH 27.1, MCHC 30.7 L, RDW Std Deviation 46.6 H, RDW Coeff of Kindra 14.4, Plt Count 221, MPV 10.1 10/13/24 12:36: POC Glucose 160 H 10/14/24 05:43: WBC 3.9 L, RBC 4.25 L, Hgb 11.6 L, Hct 37.0 L, MCV 87.1, MCH 27.3, MCHC 31.4 L, RDW Std Deviation 45.2 H, RDW Coeff of Kindra 14.2, Plt Count 222, MPV 9.5, Immature Gran % (Auto) 1.300 H, Neut % (Auto) 57.3, Lymph % (Auto) 24.9, [place] % (Auto) 14.4 H, Eos % (Auto) 1.3, Baso % (Auto) 0.8, Absolute Neuts (auto) 2.2, Absolute Lymphs (auto) 0.97, Nucleated RBC % 0, Sodium 137, Potassium 4.1, Chloride 109 H, Carbon Dioxide 20.4 L, Anion Gap 8, BUN 23 H, C reatinine 2.52 H, Estim Creat Clear Calc 38.62 L, Est GFR (MDRD) Non-Af 28 L, B UN/Creatinine Ratio 9.1 L, Glucose 117 H, Calcium 8.9, Phosphorus 2.0 L, Magnesium 2.1 Microbiology: Microbiology 10/12/24 04:10 Urine, Clean Catch Urine Culture - Final Culture exhibits no growth. 10/12/24 10:09 Mucosa - Nasopharyngeal Respiratory Panel (PCR) - Final 10/12/24 04:10 Urine, Clean Catch Streptococcus pneumoniae Antigen (M - Final 10/12/24 04:10 Urine, Clean Catch Legionella Antigen - Final 10/12/24 01:55 Mucosa - Nose SARS-CoV-2, Influenza & RSV (PCR) - Final Radiography Diagnostic Testing: Radiology Impression Brain MRI 10/13/24 10:33 IMPRESSION: 1. No evidence of acute intracranial pathology. 2. There are chronic lacunar infarctions in the periventricular white matter of both cerebral hemispheres, both thalami, the midbrain and the melanie as described. 3. Cerebral atrophy and chronic ischemic white matter disease. 4. Bilateral mastoiditis. Reading Location: [place] [address] D/C Instructions Discharge Activity: Return to Normal Activity Call your doctor if you observe: Fever of 101 or Higher, Shortness of breath, Fainting spells and Chest pain DC O2, CPAP, BIPAP Needs Home O2 Discharge instructions: No Meaningful Use Info Meaningful Use Meaningful Use Diagnoses (Choose all that apply): None applicable Discharge Plan Admission Admit Date/Time: 10/12/24 04:00 Attending Provider: Eitan Lobo Primary Care Provider: Handy Henderson Consulting Providers: Gonzalo Baeza; Missy Ulloa Discharge Orders/Prescriptions Prescriptions: New meclizine [Travel-Ease (meclizine)] 25 mg Tablet 25 mg PO TID PRN PRN (Reason: Dizziness) Qty: 30 0RF Continued tamsulosin 0.4 mg capsule 0.4 mg PO QHS Patient Comments: TAKE 1 CAPSULE BY MOUTH EVERYDAY AT BEDTIME (DME) pen needle, diabetic [BD Ultra-Fine Cici Pen Needle] 32 gauge x 5/32 needle See Rx Instructions .ROUTE .MEDSUPPLY Qty: 400 2RF Rx Instructions: 4 times a day Systane Balance 0.6 % drops 1 drp ophthalmic (eye) DAILY PRN (Reason: lubricant) sulfamethoxazole-trimethoprim 800-160 mg tablet 1 tab PO .QOD famotidine [Pepcid] 20 mg tablet 20 mg PO DAILY aspirin 325 mg tablet 325 mg PO DAILY timolol 0.5 % drops 1 drp ophthalmic (eye) DAILY (DME) Accu-Chek Guide test strips Strip See Rx Instructions .Route Qty: 100 5RF Rx Instructions: TID insulin aspart U-100 [Novolog U-100 Insulin aspart] 100 unit/mL solution 120 unit continuous subcutaneous infusion .continuous Qty: 108 1RF Rx Instructions: via insulin pump carvedilol 12.5 mg tablet 12.5 mg PO BID Qty: 180 3RF Rx Instructions: must administer with a meal/food clopidogrel 75 mg tablet 75 mg PO DAILY Qty: 90 3RF albuterol sulfate 1 PUFF inhaler 1 - 2 puff INHALATION Q6H PRN PRN (Reason: Wheezing) mycophenolate mofetil 250 mg capsule 500 mg PO BID sirolimus 0.5 mg tablet 0.5 mg PO DAILY (DME) BP cuff Qty: 1 0RF Rx Instructions: For use of monitoring BP (DME) Dexcom G6 Sensor Device See Rx Instructions .ROUTE .MEDSUPPLY Qty: 9 1RF Rx Instructions: As directed (DME) Dexcom G6 Transmitter Device See Rx Instructions .ROUTE .MEDSUPPLY Qty: 1 1RF Rx Instructions: change every 90 days atorvastatin 40 mg tablet 40 mg PO QHS Qty: 90 3RF (DME) Blood Glucose Test Strip See Rx Instructions .Route Qty: 100 6RF Rx Instructions: twice a day (DME) blood-glucose meter Kit See Rx Instructions .Route Qty: 1 0RF Rx Instructions: 4x/day (DME) blood-glucose meter [Accu-Chek Guide Glucose Meter] Misc See Rx Instructions .Route Qty: 1 0RF Rx Instructions: As directed (DME) lancing device with lancets [Accu-Chek Soft Dev Lancets] Kit See Rx Instructions .Route Qty: 1 0RF Rx Instructions: As directed amlodipine 2.5 mg tablet 2.5 mg PO DAILY Qty: 30 11RF Referrals / Follow Up: Handy Henderson DO [Primary Care Provider] - Disposition Disposition (needs filled in before D/C Order can be placed): Home Health Service Charges/Coding Visit Charges Inpatient E&M: 34399 Disch Hosp >30min
[2024-10-14 10:10] VITALS: BP 153/73; PULSE 69; RESP 16; TEMP 36.7; O2SAT 99
--- NOTE | 2024-10-14 10:44 | CASEMGMT ---
Social Work SW met w/pt again today, reviewed prior level of function and anticipated discharge plan. PCP: Dr. Henderson Specialists: Dr. Low--endocrinology, Dr. Cunningham--nephrology Pharmacy: [facility] in [place] Insurance coverage/prescription coverage: [facility]: Living arrangements/prior level of function: Pt lives home w/ in a split level home, pt normally can climb the stairs between floors. Pt states it's one step from the garage, then 7 steps up to the kitchen and 8 steps to the bedroom and bathroom. Pt is normally independent w/ADLS, drives, organizes medications, does personal ADLS. does more of the cooking and cleaning. Pt does not use a walker or cane at baseline LW/POA: SW gave pt and information yesterday w/the number to the SW dept should they want to come in as outpts and complete the documents. DME: Pt has a cane, bedside commode, tub chair. He is not sure if he has a walker, needs to check w/. He thinks he got a walker in 2021, not certain, SW did explain if he does not still have the walker insurance may not cover the cost since this was relatively recent that he got a walker through insurance. Pt has what he needs for his insulin pump, he does need to call to the pharmacy for the meds but they do have the script on file. SNF/HHC: Pt has had HHC, does not remember agency, has been to SNF, he thinks it was called [facility] in [place]. Plan: Home, open to HHC. SW spoke w/pt about HHC, SW provided to pt a list from [facility] of half-way facilities in network w/pt's insurance, in pt's preferred geographic area and complete w/quality and resource use data. Pt would like a referral to [facility]. SW explained will make referral and let him know if they can take him. SW also did review the home bound requirement of HHC, pt states he is home bound at this time. SW made referral to Gertrudis w/[facility], she is to let SW know if they can take pt. SW to follow up regarding HHC referral and walker. SANTI Hall
[2024-10-14] MEDS: Na Biphos/Potassium Phosphate PACKET 2 PACKET PO (10:54)
[2024-10-14] MEDS: Azithromycin 500 MG in 0.9% Normal Saline (250mL Bag) 250 ML 255 MG IV (10:56)
--- NOTE | 2024-10-14 13:28 | CASEMGMT ---
Social Work In communicating w/[facility], SW learned that Vertigo is not a qualifiying HHC diagnosis. Since the pneumonia is suspected, this also does not qualify pt for HHC. SW spoke w/pt and , explained this, they state understanding. Pt agreeable to try outpt PT, would like to go to [facility]. Physician wrote script, SW faxed it to [facility] and asked them to call pt to set up appt. SW let pt know and gave him script. Pt does not need a walker. Pt ready for d/c home w/outpt therapy. SANTI Hall
[2024-10-14 14:16] VITALS: BP 134/76; PULSE 77; RESP 15; TEMP 36.6; O2SAT 98
== END 2024-10-14 14:20 | disposition home health service (06) ==
LOC: ED 04:17 → PCU 04:28
PROVIDERS: Family Medicine; Admitting Provider Hospitalist; Emergency Provider Surgery; PCP Student in an Organized Health Care Education/Training Program; Visit Provider Internal Medicine
DX: R42 Dizziness and giddiness (principal); E10.42 Type 1 diabetes mellitus with diabetic polyneuropathy; E10.22 Type 1 diabetes mellitus with diabetic chronic kidney disease; Z79.4 Long term (current) use of insulin; N18.32 Chronic kidney disease, stage 3b; I12.9 Hypertensive chronic kidney disease with stage 1 through stage 4 chronic kidney disease, or unspecified chronic kidney disease; R11.2 Nausea with vomiting, unspecified; G47.33 Obstructive sleep apnea (adult) (pediatric); Z96.41 Presence of insulin pump (external) (internal); F17.210 Nicotine dependence, cigarettes, uncomplicated; Z68.36 Body mass index [BMI] 36.0-36.9, adult; I25.10 Atherosclerotic heart disease of native coronary artery without angina pectoris; E78.00 Pure hypercholesterolemia, unspecified; Z82.49 Family history of ischemic heart disease and other diseases of the circulatory system; E66.812 Obesity, class 2; Z83.3 Family history of diabetes mellitus; Z94.0 Kidney transplant status; D64.9 Anemia, unspecified; N39.0 Urinary tract infection, site not specified; K21.9 Gastro-esophageal reflux disease without esophagitis; N40.1 Benign prostatic hyperplasia with lower urinary tract symptoms; N13.8 Other obstructive and reflux uropathy; E83.39 Other disorders of phosphorus metabolism; Z79.899 Other long term (current) drug therapy; Z79.82 Long term (current) use of aspirin; Z79.02 Long term (current) use of antithrombotics/antiplatelets
CPT/HCPCS: 36415; 70450; 70551; 71046; 80048; 80053; 81001; 82010; 82803; 82962; 83605; 83690; 83735; 83880; 84100; 84145; 85025; 85027; 87070; 87086; 87205; 87449; 87631; 87633; 94640; 94668; 96361; 96365; 96366; 96367; 96372; 96375; 96376; 97162; 97165; 99221; 99252; 99285; P9612; A4216; G0378; G0463; J2405

== ENCOUNTER 2024-11-17 15:00 | Outpatient (RCR) | payer MEDICARE, MEDICAID, SELFPAY ==
--- NOTE | 2024-11-03 14:55 | HP.PTEVAL_ITS ---
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 Eitan Lobo MD with a diagnosis of dizzyness /giddiness. Date of Evaluation: 11/03/24 Physical Therapist: Nicolas Akhtar, DPT, OCS, CSCS Visit Plan Frequency: 3x /Week Duration: 4-6 Weeks Plan: 3x/week for instruction in progression of home proprioceptive and wt shift ex for B ankles, general home strength and can include assault bike and walking low intenisty, and then gym program for general LE, core and postural ex and work all to I with list and pics when I. PHM: DM with neuroapthy, kidney transplant IE: HEP balance safety review, get assault bike to house, walk with cane short distances frequently on firm surface. Subjective Subjective: Went to hospital after being at [employer]. Hot as blazes and hefty walk to [employer], R leg quit working and balance felt off. This was 3 weeks ago. Did not feel dizzy but hard to balance especially on grass. That is unusual for him. Sat down in AC of car. Went home and had steps to do and avoided called squad and went to hospital for 3 days. Did some testing, vertigo on paper. Gave prescription that he could not afford. Brick helpless in the hosptial mobility espinosa. Diagnosed with vertigo. Tested heart lungs brain, MRI, scans and no problems. Brick 70% better upon leaving hospital. Carries cane now. Feels like core is weak and back hurts intermittently, legs need to get stronger. Can't play golf, has not in a year. Could swing pitching wedge inback yard prior to this though. Kidney transplant patient. Has not been out fishing. 75% betteer now but fatigues easier. Has to use handicap parking space. No dizzyness or spinning Did noticee lying down in beed might move a little bit for a short time. Lies down in bed now and is OK, sleeping short durations well. Spends day hanging out since Kidney transplant 3 yrs ago has not worked. Objective Objective: Walks cane in L UE slowly and neuropathic gait pattern back to PT, avoids weight shift. needs UE to exit chair. Unable to heel raise R much weaker than L. hard to toe raise. Walks for fGA without AD but slow and more neuropathic. Sensation to gross light touch not present in R foot and lower leg and poor in L LE leg. reflexes 0/3 patella dn achilles B. strength ankles R weaker than L 3+ and 4-, DF R 27# and L is 48#. knee streength 4- ext adn 3+ flexion B. hip flexion 3+, abd and ext 3/5. core strength 3/5 with difficulty with transfers table due to core but I. Balance/Special Test Scores Functional Gait Assessment Score: 22 % Disability: 26.6700 CATSIB Score (Max score 120 seconds): 96 Dizziness Score: 40 TUG Test Time Seconds: 14 30 Second Chair Rise Test Seconds: 9 Goals Goal 1:: i appropriate gym and home based strength adn balance and proprioceptive ex for management. Goal Time Frame: 4-6 Weeks Goal 2:: 13 on 30 SSTS adn 11 or better on TUG to show improved mobility Goal Time Frame: 4-6 Weeks Goal 3:: 39# on R DF to show improved strength and avoid dropfoot. Goal 4:: LEFS 45 Rehabilitation Potential Physical Therapy Diagnosis: weakness , sedentarism , neeuropathic sensation changes effecting balance and mobility. Rehabilitation Potential: Good Anticipated Interventions Patient/Client Instruction: Educate patient on: Condition and Plan of Care For the Purpose of:: To decrease pain, To increase ROM, To improve nutrient delivery to tissue, To improve muscle performance and motor function, To increase tolerance to activity/condition/position and To improve gait and locomotor functions Therapeutic Exercise to Include: Strength training, Balance training, Postural training, Flexibilty training and Dynamic Lumbar Stabilization For the Purpose of:: To decrease pain, To increase ROM, To improve nutrient delivery to tissue, To improve muscle performance and motor function, To increase tolerance to activity/condition/position, To improve ability of physical actions for home/community/work/leisure and To improve gait and locomotor functions Text: Thank you for the opportunity to evaluate your patient. For Medicare and Medicare HMO plans, please review the plan of care and approve it. It will need to be FAXED BACK to us at [phone] for Medicare purposes. For Medicare only, by signing this I certify the plan of care. Please let me know if there are questions or concerns regarding this plan of care. Physician Signature: Date:
== END 2024-11-17 19:00 | disposition home or self-care (01) ==
LOC: PT 15:00
PROVIDERS: PCP Student in an Organized Health Care Education/Training Program; Referring Provider Internal Medicine; Visit Provider Internal Medicine
DX: R42 Dizziness and giddiness (principal); R53.1 Weakness
CPT/HCPCS: 97110; 97163

== ENCOUNTER → 2025-01-27 | Outpatient (CLI) | payer MEDICARE, MEDICAID, SELFPAY ==
--- NOTE | 2025-01-29 20:01 | STRESSREP_ITS ---
Stress Test Report
--- NOTE | 2025-01-29 20:01 | STRESSREP ---
Stress Test Report Pharmacologic myocardial perfusion stress test. 64-year-old man with a history of coronary artery disease. Resting EKG demonstrates normal sinus rhythm with a right bundle branch block with a rate of 67 bpm. Resting blood pressure is 138/100 mmHg. 0.4 mg of regadenoson was infused per usual protocol followed by rapid intravenous saline flush injection. Continuous EKG monitoring was performed. The maximum heart rate was 76 bpm which was 48% of max impacted heart rate the maximum workload was 1 metabolic equivalent. At rest there were no ST or T wave changes noted to suggest ischemia and at peak infusion nonspecific ST changes were noted which did not meet the criteria for ischemia. No clinical angina is noted. The final blood pressure was 128/60 mmHg. Myocardial perfusion protocol. 14.8 mCi of technetium 99m sestamibi was injected at rest. 0.4 mg of regadenoson was infused per usual protocol. At peak infusion 44.8 mCi of technetium 99m sestamibi was injected stress images were obtained stress and rest images were reconstructed and compared in the short axis vertical long and horizontal long axis. Gated images were also obtained. Perfusion SPECT analysis: Review of the stress images demonstrate normal uptake of tracer noted in all areas of the myocardium except for small portion of the anteroseptal wall with mildly reduced perfusion. The resting images demonstrate a similar pattern with mildly reduced perfusion. A very small amount of anteroseptal ischemia cannot be completely excluded.. Gated SPECT analysis: The gated ejection fraction is 74%. Conclusion: Probably normal pharmacologic myocardial perfusion stress test. Normal ejection fraction.
== END | disposition home or self-care (01) ==
LOC: CVS 05:59
PROVIDERS: PCP Student in an Organized Health Care Education/Training Program; Referring Provider Nurse Practitioner Family; Visit Provider Nurse Practitioner Family
DX: I51.7 Cardiomegaly (principal); I87.2 Venous insufficiency (chronic) (peripheral); Z95.5 Presence of coronary angioplasty implant and graft; I10 Essential (primary) hypertension; E78.5 Hyperlipidemia, unspecified; Z94.0 Kidney transplant status
CPT/HCPCS: 78452; 93017; A9500; A4216; J2785